=== PATIENT | male | born 1955 | race Caucasian/White ===

== ENCOUNTER 2018-03-29 17:20 | Outpatient (REF) | payer OTHER, SELFPAY ==
[2018-03-29 21:44] LABS: TSH (W/Ref FT4) 2.09 uIU/mL (0.358-3.74)
== END 2018-03-29 17:40 ==
LOC: NCHCN 17:20
PROVIDERS: PCP Nurse Practitioner Family; Visit Provider Nurse Practitioner Family
DX: R19.7 Diarrhea, unspecified (principal); E11.9 Type 2 diabetes mellitus without complications; I25.10 Atherosclerotic heart disease of native coronary artery without angina pectoris; F41.9 Anxiety disorder, unspecified; F32.9 Major depressive disorder, single episode, unspecified; I10 Essential (primary) hypertension; G25.81 Restless legs syndrome; E66.9 Obesity, unspecified
CPT/HCPCS: 84443

== ENCOUNTER 2018-04-07 15:17 | Outpatient (CLI) | payer OTHER, SELFPAY ==
--- NOTE | 2018-04-07 14:15 | DIABASSESS_ITS ---
DESCRIPTION/ASSESSMENT: Raul Trujillo presents for diabetes self management last seen 2016. He maintained his A1c near goal of 7.2 until his recent A1c at 9.1. He states he also gained 10 pounds between provider visits. He medically manages diabetes with Metformin, Lantus 71units daily, bydureon, and now Invokana. Over the past week Raul has cut back on pasta, potato and bread as well as portions and states he has lost 4 pounds. Reviewed his food recall of 4 meals a day of varying carbohydrate portions. Raul has been relatively inactive since his last A1c with leg/foot problems. He state shis body is very tight. He has tried massage. He is working on his wood pile and will begin biking; states he is good for 20 miles. Raul admits to boredom and isolation at times. He does have a small [employer] band of friends. INTERVENTION: DSME is provided in the following AADE 7 areas based on patients interest and assessment of needs: Food - discussed alternatives to pasta/bread and to limit bread to 4 or fewer servings per day. Discussed tracking his food and he is willing to try an Jesus Alberto like [employer]. In addition, he will increase his water intake given his new medication. Physical Activity - has a plan to increase biking and to finish the woodpile. Coping - discussed meditation as a way to calm his mind and discussed resources. Also discussed yoga for his stress and body tightness. ACTION PLAN: Raul will limit bread to 4 slices daily; use an Jesus Alberto to track calories and carbohydrate resume bike riding; consider yoga and meditation. increase water consumption Individual MNT __3__ units billed TIME IN: 0444 OUT: 1510 No DM group education series being offered at this time.
== END 2018-04-07 15:37 ==
PROVIDERS: PCP Nurse Practitioner Family; Visit Provider Dietitian, Registered
DX: E11.9 Type 2 diabetes mellitus without complications (principal); Z79.4 Long term (current) use of insulin; Z71.3 Dietary counseling and surveillance
CPT/HCPCS: 97802

== ENCOUNTER 2018-11-26 11:34 | Outpatient (CLI) | payer OTHER, SELFPAY ==
[2018-11-26 12:20] LABS: PTT Activated 23.1 sec (21.0-31.4)
[2018-11-26 12:47] LABS: Anion Gap 9.3 mmol/L (3-11); BUN 14 mg/dL (7-18); CO2 27.7 mmol/L (21.0-32.0); CREATININE 0.98 mg/dL (0.70-1.30); Calcium 9.1 mg/dL (8.5-10.1); Chloride 100 mmol/L (98-107); Glucose 129 mg/dL (70-100); NT-proBNP 55 pg/mL; Potassium 4.1 mmol/L (3.5-5.1); Sodium 137 mmol/L (136-145)
[2018-11-26 12:50] LABS: Troponin I < 0.02 ng/mL (0.00-0.06)
[2018-11-26 13:02] LABS: Cholesterol 148 mg/dL (50-200); HDL Cholesterol 41 mg/dL (40-60); LDL CHOLESTEROL 77 mg/dL (<100); Triglyceride 273 mg/dL (30-150)
== END 2018-11-26 11:54 ==
PROVIDERS: PCP Nurse Practitioner Family; Visit Provider Nurse Practitioner Family
DX: I25.10 Atherosclerotic heart disease of native coronary artery without angina pectoris (principal); R68.84 Jaw pain; I21.4 Non-ST elevation (NSTEMI) myocardial infarction
CPT/HCPCS: 36415; 80048; 80061; 83721; 83880; 84484; 85610; 85730

== ENCOUNTER 2018-12-01 17:58 | Observation (INO) | payer OTHER, SELFPAY ==
[2018-12-01] VITALS (56 sets, daily range): BP systolic 110–144; BP diastolic 55–90; PULSE 64–90; RESP 12–29; TEMP 37; O2SAT 94–97
--- NOTE | 2018-12-01 18:08 | DI.RAD_ITS ---
SYMPTOM/DIAGNOSIS: CHEST PAIN PA AND LATERAL CHEST: The heart is normal in size. The lungs are clear. The mediastinal structures and pleura appear intact. Probably coronary artery stent identified. CONCLUSION: Normal chest.
[2018-12-01] MEDS: Aspirin 81 MG CHEW 324 MG CH (18:13)
[2018-12-01 18:22] LABS: Abs Immature Grans 0.02 k/cumm (0.0-0.09); Absolute Basophil Count 0.05 k/cumm (0.0-0.2); Absolute Eosinophil Count 0.16 k/cumm (0.0-0.7); Absolute Lymphocyte Count 3.41 k/cumm (1.2-3.4); Absolute Neutrophil Count 5.31 k/cumm (1.2-6.7); Basophils % 0.5; Eosinophils % 1.6; HCT 43.7 % (40.0-50.0); HGB 14.8 g/dL (13.5-17.5); Immature Grans % 0.2; Mean Corp. HGB Concentration 33.9 g/dL (32.0-36.0); Mean Corpuscular Hemoglobin 28.6 pg (27.0-33.0); Mean Corpuscular Volume 84.5 fL (80-95); Mean Platelet Volume 10.2 fL (8.0-11.0); Monocytes % 8.2; Neutrophils % 54.5; Platelet Count 268 x1000/uL (130-400); RBC 5.17 m/cumm (4.50-6.00); White Blood Cell Count 9.75 k/cumm (4.4-10.8)
--- NOTE | 2018-12-01 18:23 | W.ED.GENAD ---
Discharge Plan Disposition Patient Disposition: [facility] Condition: Stable Discharge Details Chief Complaint: Chest Pain Clinical Impression: Unstable angina Primary Care Provider: Denise Hooker ED Provider: Adonay áCrdenas Home Meds and New Rx's Prescriptions: No Action nitroglycerin 0.4 MG tablet, sublingual 0.4 mg Sublingual PRN PRNRF: 0 metoprolol succinate [Toprol XL] 100 MG tablet extended release 24 hr 150 mg PO QAM RF: 0 lisinopril 5 MG tablet 5 mg PO QAM RF: 0 amlodipine 10 MG tablet 10 mg PO QAM RF: 0 rosuvastatin [Crestor] 40 MG tablet 40 mg PO DAILY RF: 0 Lantus U-100 Insulin 100 UNIT/ML solution 35 units SQ DAILY AM RF: 0 cholecalciferol (vitamin D3) [Vitamin D3] 1,000 UNIT capsule 1,000 unit PO DAILY RF: 0 aspirin 325 MG tablet 81 mg PO DAILY RF: 0 naproxen sodium [Aleve] 220 MG capsule 1 tab PO PRN PRNRF: 0 Lantus U-100 Insulin 100 UNITS/ML solution 35 units Sub-Q HS RF: 0 sertraline 50 MG tablet 50 mg PO HS RF: 0 Bydureon 2 MG/0.65 ML pen injector 2 mg SQ .WED HS RF: 0 trazodone 50 mg Tablet 50 mg PO QHS RF: 0 Medical Decision Making <Adonay Cárdenas, SVP RESEARCH AND STRATEGIC ANALYSIS - Last Filed: 12/02/18 00:49> Patient presenting to the emergency department for chief complaint of chest pain. Patient states that he has been having episodes of chest pain with activity over the past 10 days and did follow-up with his primary care provider who did EKG and lab work and was arranging further outpatient testing given that those all came back with no acute findings. Today though while he was at rest he started having substernal chest pain with radiation up into the neck and jaw. He states that this is uncommon and typically his angina occurs primarily with activity. He did take 1 nitro which fully relieved his symptoms but given the episode was concerning and was different than normal he was advised to come to the emergency department by his primary care office. Patient does state some diaphoresis and over the past 10 days dyspnea on exertion otherwise denies fever chills cough. Patient states that he has now asymptomatic and does feel better. Patient states significant cardiac history with hypertension, 9 stents, diabetes, obstructive sleep apnea. physical exam is unremarkable and shows no acute cardiac or respiratory findings. Plan to check labs for concern of ACS versus unstable angina. Orders for chest x-ray and EKG were also placed EKG reviewed with attending physician and shows no STEMI, please see attending physician notation of EKG interpretation. Chest x-ray was reviewed and shows no acute findings which radiology report also agrees. Review of initial labs show no concerning findings on CBC, CMP showing mildly elevated glucose otherwise normal findings, and negative initial troponin. Plan to check second troponin and EKG in 4 hours. Patient was reassessed and states no return of symptoms and continues to be pain-free. Review of second troponin shows negative result and no EKG changes noted. Patient remains asymptomatic and pain-free. Initially called and spoke with our hospitalist Dr. Richter about admission of patient. 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 Spoke with Dr. Mckeon at [facility] whom stated he recommended patient stay at our facility for stress and echo testing and transfer patient for any positive results or any change in condition. Recontacted Dr. cutler who agreed to admit patient for further work-up. Patient was in agreement with this plan of care. <See Calabrese DO - Last Filed: 12/01/18 19:49> EKG 18: 04 Rate 73, intervals normal, sinus rhythm, incomplete right bundle branch block, no significant ST elevations or depressions. Inverted T wave in lead III. HPI <Adonay Cárdenas NP - Last Filed: 12/02/18 00:49> General Mode of arrival: ambulatory. Date/Time Provider Initiated Documentation: 12/01/18 18:06. Limitations to Documentation: no limitations. Information obtained by: patient, RN notes reviewed and old records reviewed. History of Present Illness 63 year old M presents to the emergency department with the chief complaint of chest pain, described as similar to prior episodes, Quality is described as other (denies current pain), and is localized to the chest. Patient started experiencing this day(s) (10) and it has been intermittent. Medication improves symptom(s), (nitro) No exacerbating factors reported . Patient notes no other symptoms.. Patient did receive the following treatments prior to arrival, other (1 nitro) Related Data Home Medications Medication Instructions Recorded Confirmed amlodipine 10 mg PO QAM 07/23/14 12/01/18 lisinopril 5 mg PO QAM 07/23/14 12/01/18 metoprolol succinate [Toprol XL] 150 mg PO QAM 07/23/14 12/01/18 nitroglycerin 0.4 mg SUBLINGUAL PRN PRN 07/23/14 12/01/18 rosuvastatin [Crestor] 40 mg PO DAILY 07/23/14 12/01/18 Lantus U-100 Insulin 35 units SQ DAILY AM 03/20/15 12/01/18 cholecalciferol (vitamin D3) 1,000 unit PO DAILY 03/20/15 12/01/18 [Vitamin D3] aspirin 81 mg PO DAILY 05/04/15 12/01/18 naproxen sodium [Aleve] 1 tab PO PRN PRN 05/04/15 12/01/18 Lantus U-100 Insulin 35 units SUB-Q HS 02/10/16 12/01/18 exenatide microspheres [Bydureon 2 mg SQ .WED HS 09/28/17 12/01/18 Pen] sertraline 50 mg PO HS 09/28/17 12/01/18 trazodone 50 mg PO QHS 12/01/18 12/01/18 Allergies Allergy/AdvReac Type Severity Reaction Status Date / Time isosorbide AdvReac Verified 12/01/18 18:17 General Stated Complaint: Chest Pain ANDREA: 2 Review of Systems <Adonay Cárdenas NP - Last Filed: 12/02/18 00:49> Constitutional Denies chills, Denies fever(s) and Denies malaise Cardiovascular Reports as per HPI, Reports chest pain, Denies chest pain with activity, Reports diaphoresis, Denies syncope, Denies rapid heart rate, Reports pedal edema, Denies irregular heart rhythm, Denies palpitations, Denies dyspnea and Reports dyspnea on exertion Respiratory Denies cough, Denies hemoptysis, Denies dyspnea and Reports dyspnea on exertion Gastrointestinal Denies abdominal pain, Denies nausea and Denies vomiting Neurologic Denies syncope Psychiatric Denies anxiety Endocrine Denies palpitations PFSH <Adonay Cárdenas NP - Last Filed: 12/02/18 00:49> Medical History DM (diabetes mellitus) Diarrhea HTN (hypertension) DEEPALI (obstructive sleep apnea) Surgical History Colonoscopy - MAC (03/27/17) Coronary Stent Excision, Distal Clavicle (05/11/15) Rotator Cuff Repair (05/11/15) Social History Smoking/Tobacco Use Status: Never Alcohol Intake: never Drug use: Never Household members: none Housing: house 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, [employer] What type of physical activity do you participate in: none Do you feel safe at home: Yes Do you feel safe in your relationship?: Yes Exam <Adonay Cárdenas NP - Last Filed: 12/02/18 00:49> Const General: cooperative, healthy appearing, comfortable, no acute distress, not diaphoretic and not ill appearing Nutritional Appearance: average body habitus Orientation: alert, awake and oriented x3 Limitations: mental status not altered Neck Neck: normal visual inspection, full ROM, trachea midline, supple and no anterior neck swelling Thyroid: thyroid normal Carotids: normal carotid upstroke and no bruits Chest Chest: normal inspection of the chest Resp Effort & Inspection: normal respiratory effort and able to speak in complete sentences Auscultation: clear to auscultation bilaterally Cardio Jugular venous pressure: no JVD Palpation: normal PMI Rate: regular rate Rhythm: regular rhythm Heart Sounds: S1 normal, S2 normal, no click, no gallops, no murmurs and no rubs Bruits: no abdominal aortic bruits and no carotid bruits Pulses: radial pulses present bilaterally 2+ and posterior tibial pulses present GI Inspection: normal to inspection Palpation: soft, no aortic enlargement, no pulsatile masses and nontender Auscultation: normal bowel sounds Skin General skin exam: no rashes or lesions noted Neuro General: alert, awake, oriented x3, tone normal and moves all extremities Extrem General: normal capillary refill and no pedal edema Course <Adonay Cárdenas NP - Last Filed: 12/02/18 00:49> Vital Signs Temperature 37.0 C 12/01/18 18:03 Pulse 72 12/01/18 18:03 Respiratory Rate 26 H 12/01/18 18:03 Blood Pressure 144/82 H 12/01/18 18:03 Pulse Oximetry 96 12/01/18 18:03 Temperature 37.0 C 12/01/18 18:03 Temperature Source Temporal Artery Scan 12/01/18 18:03 Pulse 72 12/01/18 18:03 Respiratory Rate 20 12/01/18 18:08 Respiratory Effort Non-Labored 12/01/18 18:08 Respiratory Depth Normal 12/01/18 18:08 Blood Pressure 144/82 H 12/01/18 18:03 Blood Pressure Position Sitting 12/01/18 18:03 Pulse Oximetry 96 12/01/18 18:03 Oxygen Delivery Method Room Air 12/01/18 18:03 Oxygen Flow Rate 0 12/01/18 18:03 Pain Level 4 12/01/18 18:08 Lab/Test Results Lab/Test Results: Laboratory Tests Range/Units 12/01/18 18:08 WBC (4.4-10.8) k/cumm 9.75 RBC (4.50-6.00) m/cumm 5.17 Hgb (13.5-17.5) g/dL 14.8 Hct (40.0-50.0) % 43.7 MCV (80-95) fL 84.5 MCH (27.0-33.0) pg 28.6 MCHC (32.0-36.0) g/dL 33.9 RDW (11.8-14.1) % 14.0 Plt Count (130-400) x1000/uL 268 MPV (8.0-11.0) fL 10.2 Immature Gran % 0.2 Neutrophils % 54.5 Lymphocytes % 35.0 Monocytes % 8.2 Eosinophils % 1.6 Basophils % 0.5 Absolute Neutrophils (1.2-6.7) k/cumm 5.31 Absolute Lymphocytes (1.2-3.4) k/cumm 3.41 H Absolute Monocytes (0.11-0.7) k/cumm 0.80 H Absolute Eosinophils (0.0-0.7) k/cumm 0.16 Absolute Basophils (0.0-0.2) k/cumm 0.05
[2018-12-01 18:38] LABS: ALT 61 U/L (12-78); AST 24 U/L (15-37); Albumin 3.8 g/dL (3.4-5.0); Alkaline Phosphatase 112 U/L (46-116); Anion Gap 9.1 mmol/L (3-11); BUN 16 mg/dL (7-18); Bilirubin, Total 0.4 mg/dL (0.2-1.0); CO2 28.9 mmol/L (21.0-32.0); CREATININE 1.06 mg/dL (0.70-1.30); Calcium 9.3 mg/dL (8.5-10.1); Chloride 99 mmol/L (98-107); Glucose 209 mg/dL (70-100); Magnesium 1.9 mg/dL (1.8-2.4); Sodium 137 mmol/L (136-145)
[2018-12-01 18:39] LABS: Troponin I < 0.02 ng/mL (0.00-0.06)
--- NOTE | 2018-12-01 18:58 | DI.VRAD_ITS ---
EXAM: XR Chest, 2 Views EXAM DATE/TIME: 12/01/2018 6:09 PM CLINICAL HISTORY: 63 years old, male; Signs and symptoms; Other: Chest pain TECHNIQUE: Imaging protocol: XR of the chest, 2 views. COMPARISON: No relevant prior studies available. FINDINGS: Lungs: Unremarkable. No consolidation. Pleural space: Unremarkable. No pleural effusion. No pneumothorax. Heart/Mediastinum: Unremarkable. No cardiomegaly. Bones/joints: No acute skeletal abnormality. IMPRESSION: Negative for acute thoracic pathology. Dictated and Authenticated by: Kris Milligan MD. Ordering:JASWINDER Urias MD
[2018-12-01 22:59] LABS: Troponin I < 0.02 ng/mL (0.00-0.06)
[2018-12-02] VITALS (32 sets, daily range): BP systolic 111–135; BP diastolic 58–79; PULSE 62–81; RESP 13–31; TEMP 37–37.3; O2SAT 93–98
--- NOTE | 2018-12-02 01:16 | W.PM.HP.N ---
Date of service: 12/02/18 Time of Service: : Assessment and Plan (1) Unstable angina: Current visit: No Status: Acute continue aspirin, statins, BB; transfer to [facility] in the morning when bed becomes available for cardiology consultation and stress MPI vs cardiac cath (I favor the latter as his stress test will likely be grossly positive but even if it negative or inconclusive he should still get cardiac cath). If he has a return of his symptoms then I will recheck his EKG and repeat his troponins and start heparin drip and NTG drip and re-contact [facility] for transfer tonight. (2) Diabetes mellitus type 2 in obese: Current visit: No Status: Chronic continue current insulin and Bydureon. Will hold metformin as he will likely need cardiac cath. I will monitor glucose AC/HS and cover w/ sliding scale insulin Novolog. Check A1c in the a.m. (3) Long-term insulin use in type 2 diabetes: Current visit: No Status: Chronic as above (4) Essential hypertension: Current visit: No Status: Chronic continue home meds amlodipine and Toprol XL. If he gets more angina and goes on Ntg drip then I would withold his amlodipine. History of Present Illness Chief Complaint: angina; neck & jaw pain Narrative: 63-year-old male with a history of type 2 diabetes mellitus requiring insulin, hypertension, coronary artery disease, 9 previous coronary stents now presents to the emergency department with progressive anginal symptoms. Over the winter the patient had been doing well with no exertional chest discomfort or dyspnea. He been able to shovel snow without any difficulty. However this spring he decided to start riding his bicycle approximately 2 weeks ago and rode for about 11 miles when he developed angina equivalent in which he had right-sided neck and jaw pain that got worse with activity and improved when he stopped riding his bicycle. He tried riding his bicycle again going about 8 miles last when he developed similar symptoms of right anterior neck and jaw pain associated with dyspnea so he stopped riding and took a nitroglycerin and his pain quickly went away. Patient's had known coronary artery disease dating back to 1992 when he had his heart attack in April 1983. He had similar presentation of exertional dyspnea and jaw and neck pain with his prior CO. He subsequently had coronary angioplasty with that myocardial infarction and since that time he has had 9 stents overall. Since the return of his angina in the past 2 weeks he has followed up with his PCP who performed and EKG and labs and was trying to arrange an outpatient stress test. The patient usually follows up at the [facility] with Dr. Broderick Galloway, his assistant banquet manager. [facility] the patient had angina at rest which was relieved by single nitroglycerin. He has noted some of these episode have been associated w/ diaphoresis and dyspnea. 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 He also has HTN, DEEPALI, HLD, and CAD. He is a former smoker of 2 ppd x 20 yr but quit in 1992 after his first CO. He has FH of CO, and HTN and DM. Workup in the ER included labs, EKG, CXR. Labs included CBC, CMP and troponin. His troponin levels were normal at < 0.02 x 2 sets. CMP was only remarkable for glucose of 209 (he admits that his last A1C was high at 8.2%), rest of CMP was normal and his CBC was normal. CXR was negative for acute thoracic pathology. EKG x 3 readings was negative for ischemia (all were NSR w/ incomplete RBBB). Adonay Cárdenas CNP called [facility] and spoke w/ a Dr. Mckeon from cardiology and he felt that the patient did not need acute transfer to [facility] but recommended that the patient be admitted to [facility] for stress MPI and echocardiogram in the a.m. I attempted to reach out to [facility] and speak w/ Dr. Mckeon to explain that we do not have cardiology coverage tomorrow and no stress tests will be done until Thursday. Given that the patient had now been having rest pain, this constitutes unstable angina and I feel that the patient ought to have a cardiac cath rather than a stress test (patient has multivessel disease and warrants a cath regardless of what his stress test shows). We are unable to provide either a stress test in a timely fashion nor a cardiac cath nor a timely cardiology consult. I was unable to speak w/ Dr. Mckeon but the transfer center relayed my concerns to him and they indicated they will place the patient on a waiting list for a bed in the morning but unless he worsens overnight they are unable to accept him tonight. 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, [employer] What type of physical activity do you participate in: none Do you feel safe at home: Yes Do you feel safe in your relationship?: Yes Meds Home Medications Medication Instructions Recorded Confirmed Type amlodipine 10 mg PO QAM 07/23/14 12/01/18 History lisinopril 5 mg PO QAM 07/23/14 12/01/18 History metoprolol succinate [Toprol XL] 150 mg PO QAM 07/23/14 12/01/18 History nitroglycerin 0.4 mg SUBLINGUAL PRN PRN 07/23/14 12/01/18 History rosuvastatin [Crestor] 40 mg PO DAILY 07/23/14 12/01/18 History Lantus U-100 Insulin 35 units SQ DAILY AM 03/20/15 12/01/18 History cholecalciferol (vitamin D3) 1,000 unit PO DAILY 03/20/15 12/01/18 History [Vitamin D3] aspirin 81 mg PO DAILY 05/04/15 12/01/18 History naproxen sodium [Aleve] 1 tab PO PRN PRN 05/04/15 12/01/18 History Lantus U-100 Insulin 35 units SUB-Q HS 02/10/16 12/01/18 History exenatide microspheres [Bydureon 2 mg SQ .WED HS 09/28/17 12/01/18 History Pen] sertraline 50 mg PO HS 09/28/17 12/01/18 History trazodone 50 mg PO QHS 12/01/18 12/01/18 History Allergies Allergy/AdvReac Type Severity Reaction Status Date / Time isosorbide AdvReac Verified 12/01/18 18:17 Exam Const General: cooperative, no acute distress and well groomed Nutritional Appearance: average body habitus and well nourished Orientation: alert, awake and oriented x3 [facility] Head: normal to inspection, no palpable skull fracture, normocephalic and atraumatic Ears: external ears normal and TM's normal bilaterally General nose exam: external nose normal, nares normal and no nasal discharge Face and sinus: normal facial exam, sinuses nontender and face symmetric Mouth: oral mucosae normal, lip normal, tongue normal, oropharynx normal and moist mucous membranes Teeth and gingiva: dentition normal and gingiva normal Throat: posterior oropharynx normal and uvula midline Eyes General: appearance normal, both eyes and all related structures Visual Cook: normal visual cook by confrontation Alignment and Position: alignment normal Periorbital: periorbital findings normal Eyelids: eyelids normal Conjunctivae: conjunctivae normal Sclera: sclerae normal Cornea: corneas normal Pupils: PERRL, normal by confrontation and accommodation normal EOM: EOM intact bilaterally Neck Neck: normal visual inspection, full ROM, no lymphadenopathy, trachea midline and supple Thyroid: thyroid normal Carotids: normal carotid upstroke Lymphatic: no lymphadenopathy noted Chest Chest: normal inspection of the chest and normal palpation of entire chest wall Resp Effort & Inspection: normal respiratory effort and able to speak in complete sentences Auscultation: clear to auscultation bilaterally Percussion: percussion normal Cardio Jugular venous pressure: no JVD Palpation: normal PMI Rate: regular rate Rhythm: regular rhythm Heart Sounds: S1 normal, S2 normal and normal, physiologic split S2 Pulses: normal peripheral pulses GI Inspection: normal to inspection Palpation: soft, no hepatosplenomegaly and nontender Percussion: normal to percussion Auscultation: normal bowel sounds Skin General skin exam: no rashes or lesions noted, elasticity normal and turgor normal Lesions: no lesions Rashes: no rashes Trauma: no lacerations or abrasions Hair: normal Nails: normal Neuro General: alert, awake, oriented x3, moves all extremities and no focal motor deficits Cognition: normal cognition Speech: speech normal Gait: normal gait Motor: muscle tone normal throughout, strength 5/5 throughout, no pronator drift, no movement abnormalities noted and no fasciculations Sensory Exam: no sensory deficits noted Extrem General: normal to inspection, full ROM, normal capillary refill, no joint enlargement, no clubbing, cyanosis or edema and no calf tenderness bilaterally Psych Appearance: grossly normal Mental Status: mental status grossly normal Speech and Movement: speech and movement normal Mood: congruent mood Affect: normal affect Attitude: cooperative Thought Process: normal Thought Content: normal Insight: insight good Judgment: judgment good Results Imaging Chest x-ray: report reviewed EKG: image reviewed Labs : 12/01/18 18:08 12/01/18 18:08 Laboratory Results - last 24 hr 12/01/18 12/01/18 12/01/18 18:08 18:08 22:15 WBC 9.75 RBC 5.17 Hgb 14.8 Hct 43.7 MCV 84.5 MCH 28.6 MCHC 33.9 RDW 14.0 Plt Count 268 MPV 10.2 Immature Gran % 0.2 Neutrophils % 54.5 Lymphocytes % 35.0 Monocytes % 8.2 Eosinophils % 1.6 Basophils % 0.5 Absolute Neutrophils 5.31 Absolute Lymphocytes 3.41 H Absolute Monocytes 0.80 H Absolute Eosinophils 0.16 Absolute Basophils 0.05 Sodium 137 Potassium 4.0 Chloride 99 Carbon Dioxide 28.9 Anion Gap 9.1 BUN 16 Creatinine 1.06 Estimated GFR/1.73 m2 >= 60.00 Glucose 209 H Calcium 9.3 Magnesium 1.9 Total Bilirubin 0.4 AST 24 ALT 61 Alkaline Phosphatase 112 Troponin I < 0.02 < 0.02 Total Protein 8.0 Albumin 3.8 Last Vital Signs Temp 37.0 C 12/01/18 18:03 Pulse 66 12/02/18 00:15 Resp 21 12/02/18 00:15 BP 115/58 L 12/02/18 00:15 Pulse Ox 96 12/02/18 00:15
[2018-12-02] MEDS: Sertraline 50 MG TAB PO (02:38)
[2018-12-02 03:05] LABS: Troponin I < 0.02 ng/mL (0.00-0.06)
[2018-12-02] MEDS: Enoxaparin 40 MG/0.4 ML SYR SC (06:07)
[2018-12-02] MEDS: Insulin Glargine 300 UNITS/3 ML PEN 35 UNITS SC (06:46)
--- NOTE | 2018-12-02 07:25 | PDOC.CMIN ---
- If Service Date Differs Date of service: 12/02/18 Time of Service: 07:25 Care Management Initial Assess REASON FOR HOSPITALIZATION:: Unstable Angina PAST MEDICAL HISTORY/PAST SURGICAL HISTORY:: DM (diabetes mellitus). Diarrhea. HTN (hypertension). DEEPALI (obstructive sleep apnea). Colonoscopy - MAC (03/27/17). Coronary Stent. Excision, Distal Clavicle (05/11/15). Rotator Cuff Repair (05/11/15) PREVIOUS FUNCTIONAL STATUS/SOCIAL/FAMILY SUPPORTS:: Raul resides in alone in [place]. He reports that he works at [employer] in [facility] and has for 11 years. Raul is independent at baseline, and discusses his recent trip to [place]. Raul drives and manages ADL's. CURRENT FUNCTIONAL STATUS:: Currently Raul ADVANCE DIRECTIVES:: None on file - reports that he has a completed document at home, and that he will bring it into the hospital Has patient been provided with information about the portal?: Yes Did the patient sign up for the portal?: No CODE STATUS:: Full Code INSURANCE COVERAGE / FINANCIAL ISSUES:: CBA CURRENT HOME/COMMUNITY SERVICES/EQUIPMENT:: Currently Raul has no equipment or services in the community. PRIMARY CARE PHYSICIAN:: Denise Hooker POTENTIAL DISCHARGE NEEDS:: F/U appointment with PCP PATIENT/FAMILY EDUCATION NEEDS:: Review DC instructions, any limitations, and ongoing DC planning discussion. Discuss 'Ask Me Three' ANTICIPATED BARRIERS TO DISCHARGE:: None identified at this time TRANSPORTATION:: ? Via EMS if transferred to a tertiary center PLAN:: Per morning meeting Raul to transfer to [facility] once a bed becomes available, he will transport via EMS.
--- NOTE | 2018-12-02 07:30 | INITIAL_ITS ---
- If Service Date Differs Date of service: 12/02/18 Time of Service: 07:25 Care Management Initial Assess REASON FOR HOSPITALIZATION:: Unstable Angina PAST MEDICAL HISTORY/PAST SURGICAL HISTORY:: DM (diabetes mellitus). Diarrhea. HTN (hypertension). DEEPALI (obstructive sleep apnea). Colonoscopy - MAC (03/27/17). Coronary Stent. Excision, Distal Clavicle (05/11/15). Rotator Cuff Repair (05/11/15) PREVIOUS FUNCTIONAL STATUS/SOCIAL/FAMILY SUPPORTS:: Raul resides in alone in [place]. He reports that he works at [employer] in [facility] and has for 11 years. Raul is independent at baseline, and discusses his recent trip to [place]. Raul drives and manages ADL's. CURRENT FUNCTIONAL STATUS:: Currently Raul ADVANCE DIRECTIVES:: None on file - reports that he has a completed document at home, and that he will bring it into the hospital Has patient been provided with information about the portal?: Yes Did the patient sign up for the portal?: No CODE STATUS:: Full Code INSURANCE COVERAGE / FINANCIAL ISSUES:: CBA CURRENT HOME/COMMUNITY SERVICES/EQUIPMENT:: Currently Raul has no equipment or services in the community. PRIMARY CARE PHYSICIAN:: Denise Hooker POTENTIAL DISCHARGE NEEDS:: F/U appointment with PCP PATIENT/FAMILY EDUCATION NEEDS:: Review DC instructions, any limitations, and ongoing DC planning discussion. Discuss 'Ask Me Three' ANTICIPATED BARRIERS TO DISCHARGE:: None identified at this time TRANSPORTATION:: ? Via EMS if transferred to a tertiary center PLAN:: Per morning meeting Raul to transfer to [facility] once a bed becomes available, he will transport via EMS.
[2018-12-02] MEDS: Normal Saline Flush 10 ML SYR IVP (08:54)
[2018-12-02] MEDS: Lisinopril 5 MG TAB PO (08:55)
[2018-12-02] MEDS: amLODIPine 10 MG TAB PO (08:55)
[2018-12-02] MEDS: Cholecalciferol (Vitamin D3) 1,000 UNIT TAB 1000 UNITS PO (08:55)
[2018-12-02] MEDS: Aspirin 81 MG CHEW PO (08:55)
[2018-12-02] MEDS: Metoprolol CR 100 MG TABCR 150 MG PO (08:55)
--- NOTE | 2018-12-02 14:55 | DSE_ITS ---
Date of service: 12/02/18 Time of Service: 14:51 DS: Diagnosis Discharge Diagnosis (1) Unstable angina: Status: Acute (2) Diabetes mellitus type 2 in obese: Status: Chronic (3) Long-term insulin use in type 2 diabetes: Status: Chronic (4) Essential hypertension: Status: Chronic Discharge Plan Disposition Patient Disposition: [facility] ([facility]) Condition: Stable Discharge Details Reason For Visit: UNSTABLE ANGINA Admit Date/Time: 12/02/18 00:33 Admit Provider: Case Boudreaux Attending Provider: Case Boudreaux Primary Care Provider: Denise Hooker [facility] Course Hospital Course: CC: CP HPI: Please see History & Physical by Dr. Case Boudreaux performed earlier this morning. Patient was accepted in transfer at [facility], for further evaluation / potential LHC for diagnosis of Unstable Angina. Please note that Mr. Trujillo's serial cardiac biomarkers with Troponin I have remained negative, and he is currently asymptomatic. He is not being transported on anticoagulation or with a Nitro drip. Home Meds and New Rx's Prescriptions: Continued nitroglycerin 0.4 MG tablet, sublingual 0.4 mg Sublingual PRN PRNRF: 0 metoprolol succinate [Toprol XL] 100 MG tablet extended release 24 hr 150 mg PO QAM RF: 0 lisinopril 5 MG tablet 5 mg PO QAM RF: 0 amlodipine 10 MG tablet 10 mg PO QAM RF: 0 rosuvastatin [Crestor] 40 MG tablet 40 mg PO DAILY RF: 0 Lantus U-100 Insulin 100 UNIT/ML solution 35 units SQ DAILY AM RF: 0 cholecalciferol (vitamin D3) [Vitamin D3] 1,000 UNIT capsule 1,000 unit PO DAILY RF: 0 aspirin 325 MG tablet 81 mg PO DAILY RF: 0 naproxen sodium [Aleve] 220 MG capsule 1 tab PO PRN PRNRF: 0 Lantus U-100 Insulin 100 UNITS/ML solution 35 units Sub-Q HS RF: 0 sertraline 50 MG tablet 50 mg PO HS RF: 0 Bydureon 2 MG/0.65 ML pen injector 2 mg SQ .WED HS RF: 0 trazodone 50 mg Tablet 50 mg PO QHS RF: 0 Discharge Instructions Activity:: OOB to Chair Equipment/Supplies:: No Equipment Needed Diet:: Carb Counting Discharge Orders Discharge Orders: Discharge Order (Routine); Ordered 12/02/18 Ordered By: Miguel Flores DS: Data Vitals/I&O Vitals and I&O: Vital Signs Temperature 37.3 C 12/02/18 08:10 Temperature Source Temporal Artery Scan 12/02/18 08:10 Pulse 65 12/02/18 10:01 Pulse Rhythm Regular 12/02/18 08:10 Pulse 69 12/02/18 10:01 Respiratory Rate 13 12/02/18 10:01 Respiratory Effort 12/02/18 08:10 Respiratory Depth Normal 12/02/18 08:10 Respiratory Pattern Normal 12/02/18 08:10 Blood Pressure 123/66 12/02/18 10:01 Blood Pressure Mean 78 12/02/18 10:01 Blood Pressure Position Supine 12/02/18 01:53 Pulse Oximetry 97 12/02/18 10:01 Oxygen Delivery Method Room Air 12/02/18 01:53 Oxygen Flow Rate 0 12/02/18 01:53 Pain Level 0 12/02/18 01:53 Intake & Output 12/01/18 12/02/18 12/02/18 23:59 11:59 23:59 Intake Total 1220 / 1220 Output Total 800 / 800 1550 / 1550 Balance -800 / -800 -330 / -330 Weight 106.594 kg 103.6 kg Intake: IV 10 Oral 1210 / 1210 Output: Urine 800 / 800 1550 / 1550 Other: Urine Color Yellow Urine Appearance Clear Urine Odor None Comment URINAL EMPTIED. Voiding Methods Urinal Completed studies during hospitalization [Text1]: Exam(s) a RAD:XR chest 2V PA & lateral SYMPTOM/DIAGNOSIS: CHEST PAIN PA AND LATERAL CHEST: The heart is normal in size. The lungs are clear. The mediastinal structures and pleura appear intact. Probably coronary artery stent identified. CONCLUSION: Normal chest. Labs on day of discharge: Labs from last 24 hours 12/02/18 12/01/18 12/01/18 02:40 22:15 18:08 WBC 9.75 RBC 5.17 Hgb 14.8 Hct 43.7 MCV 84.5 MCH 28.6 MCHC 33.9 RDW 14.0 Plt Count 268 MPV 10.2 Immature Gran % 0.2 Neutrophils % 54.5 Lymphocytes % 35.0 Monocytes % 8.2 Eosinophils % 1.6 Basophils % 0.5 Absolute Neutrophils 5.31 Absolute Lymphocytes 3.41 H Absolute Monocytes 0.80 H Absolute Eosinophils 0.16 Absolute Basophils 0.05 Sodium Potassium Chloride Carbon Dioxide Anion Gap BUN Creatinine Estimated GFR/1.73 m2 Glucose Calcium Magnesium Total Bilirubin AST ALT Alkaline Phosphatase Troponin I < 0.02 < 0.02 Total Protein Albumin 12/01/18 18:08 WBC RBC Hgb Hct MCV MCH MCHC RDW Plt Count MPV Immature Gran % Neutrophils % Lymphocytes % Monocytes % Eosinophils % Basophils % Absolute Neutrophils Absolute Lymphocytes Absolute Monocytes Absolute Eosinophils Absolute Basophils Sodium 137 Potassium 4.0 Chloride 99 Carbon Dioxide 28.9 Anion Gap 9.1 BUN 16 Creatinine 1.06 Estimated GFR/1.73 m2 >= 60.00 Glucose 209 H Calcium 9.3 Magnesium 1.9 Total Bilirubin 0.4 AST 24 ALT 61 Alkaline Phosphatase 112 Troponin I < 0.02 Total Protein 8.0 Albumin 3.8 PFSH Medical History DM (diabetes mellitus) Diarrhea HTN (hypertension) DEEPALI (obstructive sleep apnea) Surgical History Colonoscopy - MAC (03/27/17) Coronary Stent Excision, Distal Clavicle (05/11/15) Rotator Cuff Repair (05/11/15) Social History Smoking/Tobacco Use Status: Former Tobacco Use Pack-years: 40 Tobacco: How many years used: 20 Alcohol Intake: never Drug use: Never Household members: none Housing: house 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
== END 2018-12-02 15:45 | disposition short-term general hospital (02) ==
LOC: ER 12-02 00:43 → ICU 12-02 01:50
PROVIDERS: Admitting Provider Internal Medicine; Emergency Provider Nurse Practitioner Family; PCP Nurse Practitioner Family; Visit Provider Internal Medicine
DX: I20.0 Unstable angina (principal); M54.2 Cervicalgia; R68.84 Jaw pain; E11.9 Type 2 diabetes mellitus without complications; Z79.4 Long term (current) use of insulin; I10 Essential (primary) hypertension; I25.10 Atherosclerotic heart disease of native coronary artery without angina pectoris; Z95.5 Presence of coronary angioplasty implant and graft; G47.33 Obstructive sleep apnea (adult) (pediatric); Z87.891 Personal history of nicotine dependence
CPT/HCPCS: 36415; 80053; 93005; 99220; 99285; J1650; NC; 71046; 83735; 84484; 85025; 93010; G0378; J1815

== ENCOUNTER 2018-12-27 19:24 | Emergency (ER) | payer OTHER, SELFPAY ==
[2018-12-27 19:30] VITALS: BP 160/66; PULSE 72; RESP 18; TEMP 36.8; O2SAT 96
--- NOTE | 2018-12-27 19:42 | ED.GENADUL_ITS ---
Discharge Plan Disposition Patient Disposition: HOME Condition: Stable Discharge Details Chief Complaint: Vascular Clinical Impression: Strain of right forearm Primary Care Provider: Denise Hooker ED Provider: Ken Rodriguez Home Meds and New Rx's Prescriptions: No Action nitroglycerin 0.4 MG tablet, sublingual 0.4 mg Sublingual PRN PRNRF: 0 metoprolol succinate [Toprol XL] 100 MG tablet extended release 24 hr 150 mg PO QAM RF: 0 lisinopril 5 MG tablet 5 mg PO QAM RF: 0 amlodipine 10 MG tablet 10 mg PO QAM RF: 0 rosuvastatin [Crestor] 40 MG tablet 40 mg PO DAILY RF: 0 Lantus U-100 Insulin 100 UNIT/ML solution 35 units SQ DAILY AM RF: 0 cholecalciferol (vitamin D3) [Vitamin D3] 1,000 UNIT capsule 1,000 unit PO DAILY RF: 0 aspirin 325 MG tablet 81 mg PO DAILY RF: 0 naproxen sodium [Aleve] 220 MG capsule 1 tab PO PRN PRNRF: 0 Lantus U-100 Insulin 100 UNITS/ML solution 35 units Sub-Q HS RF: 0 sertraline 50 MG tablet 50 mg PO HS RF: 0 Bydureon 2 MG/0.65 ML pen injector 2 mg SQ .WED HS RF: 0 trazodone 50 mg Tablet 50 mg PO QHS RF: 0 Discharge Instructions Additional Instructions: take 1000mg tylenol and 600mg ibuprofen every 6 hours for pain as needed you should be contacted with an appointment for an ultrasound if you develop high fevers or rash spreading up the arm return to the emergency department for reevaluation Medical Decision Making 63 yo male with hx of cad who underwent catheterization last night with no acute findings per pt, comes in with right forearm pain since the procedure and they accessed the right radial artery per pt. Denies any recent trauma but does do a lot of repetitive steering and hand motions with his bike. Denies fevers, chills, rashes. He is in no distress on exam, denies chest pain or sob. He has 2+ radial and ulnar pulses with normal annie test so doubt radial occlusion and no swelling or bruit so doubt pseudoaneurysm and less likely since symptoms started immediately after surgery. Has no swelling and soft muscles so doubt compartment syndrome. Full rom of the joints so doubt fx/dislocation and suspect overuse injury but given recent procedure will have pt return for u/s and return precautions given Differential Diagnosis strain, sprain, dvt HPI General Mode of arrival: ambulatory . Date/Time Provider Initiated Documentation: 12/27/18 19:30 . Limitations to Documentation: no limitations . Information obtained by: patient . History of Present Illness 63 year old M presents to the emergency department with the chief complaint of right forearm pain, described as moderate, with intensity rated at 5. Quality is descr ibed as aching, and is localized to the right and upper extremity. Patient reports no radiation. Patient started experiencing this week(s) (3) and it has been constant. No relieving factors improve symptom(s), No exacerbating factors reported . Patient notes no other symptoms.. Patient did receive the following treatments prior to arrival, NSAID Related Data Home Medications Medication Instructions Recorded Confirmed amlodipine 10 mg PO QAM 07/23/14 12/01/18 lisinopril 5 mg PO QAM 07/23/14 12/01/18 metoprolol succinate [Toprol XL] 150 mg PO QAM 07/23/14 12/01/18 nitroglycerin 0.4 mg SUBLINGUAL PRN PRN 07/23/14 12/01/18 rosuvastatin [Crestor] 40 mg PO DAILY 07/23/14 12/01/18 Lantus U-100 Insulin 35 units SQ DAILY AM 03/20/15 12/01/18 cholecalciferol (vitamin D3) 1,000 unit PO DAILY 03/20/15 12/01/18 [Vitamin D3] aspirin 81 mg PO DAILY 05/04/15 12/01/18 naproxen sodium [Aleve] 1 tab PO PRN PRN 05/04/15 12/01/18 Lantus U-100 Insulin 35 units SUB-Q HS 02/10/16 12/01/18 Bydureon 2 mg SQ .WED HS 09/28/17 12/01/18 sertraline 50 mg PO HS 09/28/17 12/01/18 trazodone 50 mg PO QHS 12/01/18 12/01/18 Allergies Allergy/AdvReac Type Severity Reaction Status Date / Time isosorbide AdvReac Verified 12/01/18 18:17 General Stated Complaint: Vascular ANDREA: 4 Review of Systems Review of Systems All systems reviewed & are unremarkable except as noted in HPI and below Constitutional Denies chills, Denies fever(s) and Denies weakness Cardiovascular Denies chest pain and Denies dyspnea Respiratory Denies cough and Denies dyspnea Gastrointestinal Denies abdominal pain, Denies nausea and Denies vomiting Integumentary/Breasts Denies rash Neurologic Denies weakness [facility] Social History Smoking/Tobacco Use Status: Former Tobacco Use Pack-years: 40 Tobacco: How many years used: 20 Alcohol Intake: never Drug use: Never Household members: none Housing: house 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, [employer] What type of physical activity do you participate in: none Do you feel safe at home: Yes Do you feel safe in your relationship?: Yes Exam Const General: no acute distress Orientation: alert HENMT Head: normal to inspection Ears: external ears normal General nose exam: external nose normal Mouth: moist mucous membranes Eyes General: appearance normal, both eyes and all related structures Neck Neck: normal visual inspection Resp Effort & Inspection: normal respiratory effort and able to speak in complete sentences Cardio Rate: regular rate Skin General skin exam: no rashes or lesions noted Neuro General: alert and oriented x3 Extrem General: normal to inspection Psych Mental Status: mental status grossly normal Course Vital Signs Temperature 36.8 C 12/27/18 19:30 Pulse 72 12/27/18 19:30 Respiratory Rate 18 12/27/18 19:30 Blood Pressure 160/66 H 12/27/18 19:30 Pulse Oximetry 96 12/27/18 19:30 Temperature 36.8 C 12/27/18 19:30 Temperature Source Temporal Artery Scan 12/27/18 19:30 Pulse 72 12/27/18 19:30 Respiratory Rate 18 12/27/18 19:30 Respiratory Effort 12/27/18 19:38 Respiratory Depth Normal 12/27/18 19:38 Blood Pressure 160/66 H 12/27/18 19:30 Pulse Oximetry 96 12/27/18 19:30 Oxygen Delivery Method Room Air 12/27/18 19:30 Oxygen Flow Rate 0 12/27/18 19:30 Pain Level 8 12/27/18 19:30
== END 2018-12-27 19:54 | disposition home or self-care (01) ==
LOC: ER 19:51
PROVIDERS: Emergency Provider Emergency Medicine; PCP Nurse Practitioner Family
DX: S56.911A Strain of unspecified muscles, fascia and tendons at forearm level, right arm, initial encounter (principal); X50.3XXA Overexertion from repetitive movements, initial encounter; I25.10 Atherosclerotic heart disease of native coronary artery without angina pectoris
CPT/HCPCS: 99282

== ENCOUNTER 2018-12-28 11:59 | Outpatient (CLI) | payer OTHER, SELFPAY ==
--- NOTE | 2018-12-28 13:38 | DI.US_ITS ---
SYMPTOMS/DIAGNOSIS: RT ARM PAIN, S/P CARDIAC CATH ULTRASOUND EXAMINATION OF THE RIGHT ARM: There is no evidence of DVT. These findings were conveyed to the provider immediately following the examination.
== END 2018-12-28 12:19 ==
PROVIDERS: PCP Nurse Practitioner Family; Visit Provider Emergency Medicine
DX: M79.621 Pain in right upper arm (principal); Z98.890 Other specified postprocedural states
CPT/HCPCS: 93971

== ENCOUNTER 2019-03-31 17:02 | Outpatient (REF) | payer OTHER, SELFPAY ==
[2019-03-31 21:59] LABS: Abs Immature Grans 0.01 k/cumm (0.0-0.09); Absolute Basophil Count 0.04 k/cumm (0.0-0.2); Absolute Eosinophil Count 0.12 k/cumm (0.0-0.7); Absolute Monocyte Count 0.64 k/cumm (0.11-0.7); Basophils % 0.5; Eosinophils % 1.4; HCT 44.4 % (40.0-50.0); HGB 14.5 g/dL (13.5-17.5); Immature Grans % 0.1; Lymphocytes % 37.6; Mean Corp. HGB Concentration 32.7 g/dL (32.0-36.0); Mean Corpuscular Hemoglobin 27.8 pg (27.0-33.0); Mean Corpuscular Volume 85.1 fL (80-95); Mean Platelet Volume 11.2 fL (8.0-11.0); Monocytes % 7.5; Neutrophils % 52.9; Platelet Count 255 x1000/uL (130-400); RBC 5.22 m/cumm (4.50-6.00); RBC Distribution Width 13.7 % (11.8-14.1); White Blood Cell Count 8.51 k/cumm (4.4-10.8)
[2019-03-31 22:46] LABS: ALT 77 U/L (16-63); AST 41 U/L (15-37); Albumin 4.1 g/dL (3.4-5.0); Alkaline Phosphatase 91 U/L (46-116); Anion Gap 10.8 mmol/L (3-11); BUN 16 mg/dL (7-18); Bilirubin, Total 0.5 mg/dL (0.2-1.0); CO2 26.2 mmol/L (21.0-32.0); CREATININE 0.93 mg/dL (0.70-1.30); Calcium 9.3 mg/dL (8.5-10.1); Chloride 101 mmol/L (98-107); Glucose 122 mg/dL (70-100); Potassium 4.2 mmol/L (3.5-5.1); Sodium 138 mmol/L (136-145); Total Protein 7.8 g/dL (6.4-8.2); Vitamin B12 361 pg/mL (193-986)
[2019-03-31 22:49] LABS: ESR 12 mm/hr (1-20)
[2019-03-31 23:01] LABS: Creatine Kinase 276 U/L (39-308)
[2019-04-04 12:14] LABS: Hepatitis A Antibody IgM Negative (NEGAT); Hepatitis B Core Antibody Negative (NEGAT); Hepatitis B surface Ag Negative (NEGAT); Hepatitis C Ab w Rflx HCV PCR Negative (NEGAT)
[2019-04-04 12:32] LABS: Rheumatoid Factor <8 IU/mL (<12.5)
[2019-04-04 13:47] LABS: Albumin 58.9 % (55.8-66.1); Total Protein 7.9 g/dl (6.3-8.2)
[2019-04-04 14:36] LABS: ANA Interpretation Negative (NEGAT)
[2019-04-08 09:14] LABS: IgG Asialo. GM1 Negative (Negative); IgG Disialo. GD1b Negative (Negative); IgG Monos. GM1 Negative (Negative); IgM Asialo. GM1 Negative (Negative); IgM Disialo. GD1b Negative (Negative); IgM Monos. GM1 Negative (Negative)
== END 2019-03-31 17:22 ==
LOC: NCHCN 17:02
PROVIDERS: PCP Nurse Practitioner Family; Visit Provider Nurse Practitioner Family
DX: R79.89 Other specified abnormal findings of blood chemistry (principal); I10 Essential (primary) hypertension; E11.9 Type 2 diabetes mellitus without complications; R25.3 Fasciculation; M54.9 Dorsalgia, unspecified; M54.31 Sciatica, right side; R19.7 Diarrhea, unspecified; I21.4 Non-ST elevation (NSTEMI) myocardial infarction; F32.9 Major depressive disorder, single episode, unspecified
CPT/HCPCS: 80053; 82550; 85652; 86704; 86709; 86803; 87340; 82607; 83520; 84165; 85025; 86038; 86431

== ENCOUNTER 2019-04-07 00:54 | Outpatient (CLI) | payer OTHER, SELFPAY ==
--- NOTE | 2019-04-07 07:40 | DI.US_ITS ---
EXAM: US ABDOMEN CLINICAL HISTORY: ELEVATED LFT'S,R79.89. TECHNIQUE: Ultrasound performed using standard protocol. COMPARISON: US upper extremity venous RT from 12/28/2018 FINDINGS: The aorta and vena cava are intact. An enlarged fatty liver is demonstrated with a maximal length of 18.9 cm. The gallbladder wall is 1.1 mm in thickness. Multiple small gallstones are identified in the gallbladder, the largest of which measures approximately 3 mm. There is no evidence of ductal ob struction. There is a question regarding increased echogenicity in the pancreas. The spleen is intac t, question regarding a small accessory spleen. The left kidney is unremarkable. A complex right re nal cyst measures 2.4 x 2.1 x 2.4 cm. Further evaluation with renal CT is suggested.
== END 2019-04-07 01:14 ==
PROVIDERS: PCP Nurse Practitioner Family; Visit Provider Nurse Practitioner Family
DX: K76.0 Fatty (change of) liver, not elsewhere classified (principal); K80.70 Calculus of gallbladder and bile duct without cholecystitis without obstruction; N28.1 Cyst of kidney, acquired; R79.89 Other specified abnormal findings of blood chemistry
CPT/HCPCS: 76700

== ENCOUNTER 2019-08-23 12:29 | Outpatient (REF) | payer OTHER, SELFPAY ==
[2019-08-23 22:04] LABS: Abs Immature Grans 0.02 k/cumm (0.0-0.09); Absolute Basophil Count 0.02 k/cumm (0.0-0.2); Absolute Eosinophil Count 0.05 k/cumm (0.0-0.7); Absolute Lymphocyte Count 1.29 k/cumm (1.2-3.4); Absolute Monocyte Count 0.81 k/cumm (0.11-0.7); Absolute Neutrophil Count 4.93 k/cumm (1.2-6.7); Basophils % 0.3; Eosinophils % 0.7; HCT 44.9 % (40.0-50.0); Immature Grans % 0.3 %; Lymphocytes % 18.1; Mean Corp. HGB Concentration 33.4 g/dL (32.0-36.0); Mean Corpuscular Volume 83.8 fL (80-95); Monocytes % 11.4; Neutrophils % 69.2; Platelet Count 245 x1000/uL (130-400); RBC 5.36 m/cumm (4.50-6.00); RBC Distribution Width 13.7 % (11.8-14.1); White Blood Cell Count 7.12 k/cumm (4.4-10.8)
[2019-08-23 22:29] LABS: ALT 57 U/L (16-63); AST 41 U/L (15-37); Albumin 3.8 g/dL (3.4-5.0); Alkaline Phosphatase 85 U/L (46-116); Anion Gap 8.7 mmol/L (3-11); BUN 13 mg/dL (7-18); Bilirubin, Total 0.6 mg/dL (0.2-1.0); CO2 28.3 mmol/L (21.0-32.0); CREATININE 0.95 mg/dL (0.70-1.30); Calcium 8.6 mg/dL (8.5-10.1); Chloride 99 mmol/L (98-107); Glucose 136 mg/dL (74-106); Potassium 4.2 mmol/L (3.5-5.1); Sodium 136 mmol/L (136-145); TSH (W/Ref FT4) 1.85 uIU/mL (0.36-3.74); Total Protein 7.2 g/dL (6.4-8.2)
== END 2019-08-23 12:49 ==
LOC: NCHCN 12:29
PROVIDERS: PCP Nurse Practitioner Family; Visit Provider Nurse Practitioner Family
DX: R19.7 Diarrhea, unspecified (principal); R11.0 Nausea
CPT/HCPCS: 80053; 84443; 85025

== ENCOUNTER 2019-08-24 11:58 | Outpatient (REF) | payer OTHER, SELFPAY ==
[2019-08-26 12:33] LABS: Campylobacter PCR Negative (Negative); Salmonella PCR Negative (Negative); Shiga Toxin PCR Negative (Negative); Shigella/Enteroinvasive Ecoli Negative (Negative)
== END 2019-08-24 12:18 ==
LOC: NCHCN 11:58
PROVIDERS: PCP Nurse Practitioner Family; Visit Provider Nurse Practitioner Family
DX: R19.7 Diarrhea, unspecified (principal); R11.0 Nausea
CPT/HCPCS: 87505; 87177

== ENCOUNTER 2020-03-18 15:31 | Emergency (ER) | payer OTHER, SELFPAY ==
[2020-03-18] VITALS (62 sets, daily range): BP systolic 99–154; BP diastolic 47–69; PULSE 70–91; RESP 13–27; TEMP 36.7; O2SAT 93–97
--- NOTE | 2020-03-18 15:30 | RT.EKG_ITS ---
APPROVED REPORT Exam: Resting ECG Patient Location: E HR:69 bpm ECG Measurements Heart Rate 69 AXIS TN 208 P 64 QRSd 113 QRS 93 QT 378 T 24 QTc 404 Conclusion Sinus rhythm...normal P axis, V-rate 60- 99
--- NOTE | 2020-03-18 15:30 | DI.RAD_ITS ---
EXAM: XR PORTABLE CHEST AP CLINICAL HISTORY: chest pain TECHNIQUE: 2D digital imaging was performed. COMPARISON: No exams were available for comparison FINDINGS: MEDIASTINUM: Normal. HEART: Normal. PULMONARY VASCULATURE: Normal. LUNGS: Clear. PLEURAL SPACE: No pleural effusion or pneumothorax. BONE:Within normal limits for the patient's age. OTHER FINDINGS:Normal. IMPRESSION: No acute pulmonary findings. DATA REPOSITORY: RADIATION DOSE DELIVERED:
--- NOTE | 2020-03-18 15:48 | W.ED.GENAD ---
Discharge Plan Disposition Patient Disposition: [facility] Condition: Serious Discharge Details Clinical Impression: Acute non-ST elevation myocardial infarction (NSTEMI) Primary Care Provider: Denise Hooker ED Provider: Ken Rodriguez Home Meds and New Rx's Prescriptions: No Action nitroglycerin 0.4 MG tablet, sublingual 0.4 mg Sublingual PRN PRNRF: 0 metoprolol succinate [Toprol XL] 100 MG tablet extended release 24 hr 150 mg PO QAM RF: 0 lisinopril 5 MG tablet 5 mg PO QAM RF: 0 amlodipine 10 MG tablet 10 mg PO QAM RF: 0 rosuvastatin [Crestor] 40 MG tablet 40 mg PO DAILY RF: 0 cholecalciferol (vitamin D3) [Vitamin D3] 1,000 UNIT capsule 1,000 unit PO DAILY RF: 0 aspirin 325 MG tablet 81 mg PO DAILY RF: 0 naproxen sodium [Aleve] 220 MG capsule 1 tab PO PRN PRNRF: 0 Lantus U-100 Insulin 100 UNITS/ML solution 30 units Sub-Q BID RF: 0 Farxiga 5 mg tablet 5 mg PO DAILY RF: 0 sertraline 50 MG tablet 50 mg PO HS RF: 0 Bydureon 2 MG/0.65 ML pen injector 2 mg SQ DIRECTED RF: 0 trazodone 50 mg Tablet 50 mg PO QHS RF: 0 Discharge Data Discharge Date/Time-TO BE ENTERED AT DEPARTURE: 03/18/20 21:30 Medical Decision Making <Sebastian Guerra MD - Last Filed: 04/14/20 13:28> 1551??64-year-old male with history of coronary artery disease status post 9 stents in the past, diabetes, hypertension, angina, here with neck discomfort which he notes is similar to prior anginal episodes. Pain now improved after nitroglycerin sublingual x2 prehospital. Patient is hemodynamically stable. Pain ECG was reviewed and interpreted by me: Please see report. No STEMI. Concern for ACS. I will check troponin. 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 Patient did take his daily aspirin today. --This x-ray was reviewed and interpreted by radiology: No acute finding. --Initial troponin negative. Patient reassessed and was made pain-free. --Troponin elevated at 0.15. Patient reassessed and remained pain-free. Repeat ECG nondiagnostic with no significant changes. Plan to start heparin bolus and infusion for end STEMI. I called and spoke with on-call machined parts quality inspector, Dr. Cruz at [facility] and discussed ED presentation and course. He recommends ticagrelor 180mg and will accept patient in transfer. Awaiting bed availability. <Ken Rodriguez MD - Last Filed: 03/18/20 21:23> pt remains hd stable during my time and pain free at this time, bed now available at [facility] and will go by [facility] HPI <Sebastian Guerra MD - Last Filed: 04/14/20 13:28> General Mode of arrival: ambulatory. Date/Time Provider Initiated Documentation: 03/18/20 15:39. Limitations to Documentation: no limitations. Information obtained by: patient. HPI Narrative: 64-year-old male with history of coronary artery disease status post 9 stents, diabetes, hypertension, here with chief complaint of chest pain. Patient notes chest pain started around 1400 after he was chopping wood. Pain described as a sharp pain in his neck. Pain was moderate to severe. Pain similar to prior anginal episodes. He took a nitroglycerin sublingual which did help his pain and then it returned. He took a second sublingual nitro which again helped his pain. He notes after about 20 minutes he started to have some return of discomfort and decided to seek further care. He now notes he has no pain. He has no shortness of breath. No leg swelling or calf pain. Related Data Home Medications Medication Instructions Recorded Confirmed amlodipine 10 mg PO QAM 07/23/14 03/18/20 lisinopril 5 mg PO QAM 07/23/14 03/18/20 metoprolol succinate [Toprol XL] 150 mg PO QAM 07/23/14 03/18/20 nitroglycerin 0.4 mg SUBLINGUAL PRN PRN 07/23/14 03/18/20 rosuvastatin [Crestor] 40 mg PO DAILY 07/23/14 03/18/20 cholecalciferol (vitamin D3) 1,000 unit PO DAILY 03/20/15 03/18/20 [Vitamin D3] aspirin 81 mg PO DAILY 05/04/15 03/18/20 naproxen sodium [Aleve] 1 tab PO PRN PRN 05/04/15 03/18/20 Lantus U-100 Insulin 30 units SUB-Q BID 02/10/16 03/18/20 Bydureon 2 mg SQ DIRECTED 09/28/17 03/18/20 sertraline 50 mg PO HS 09/28/17 03/18/20 trazodone 50 mg PO QHS 12/01/18 03/18/20 dapagliflozin [Farxiga] 5 mg PO DAILY 03/18/20 03/18/20 Allergies Allergy/AdvReac Type Severity Reaction Status Date / Time isosorbide AdvReac Verified 03/18/20 15:42 General Stated Complaint: Chest Pain ANDREA: 2 Review of Systems <Sebastian Guerra MD - Last Filed: 04/14/20 13:28> All systems reviewed & are unremarkable except as noted in HPI and below Constitutional Constitutional: Denies fever(s) Cardiovascular Cardiovascular: Reports chest pain and Denies dyspnea Respiratory Respiratory: Denies dyspnea PFSH <Sebastian Guerra MD - Last Filed: 04/14/20 13:28> Medical History (Updated 03/18/20 @ 20:08 by Sebastian Guerra MD) Coronary artery disease Diarrhea DM (diabetes mellitus) HTN (hypertension) DEEPALI (obstructive sleep apnea) Surgical History Colonoscopy - MAC (03/27/17) Coronary Stent 9 stents. 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, [employer] What type of physical activity do you participate in: none Do you feel safe at home: Yes Do you feel safe in your relationship?: Yes Exam <Sebastian Guerra MD - Last Filed: 04/14/20 13:28> Const General: cooperative and no acute distress HENMT Mouth: moist mucous membranes Eyes Conjunctivae: normal conjunctivae Sclera: normal sclerae Neck Neck: trachea midline and supple Resp Auscultation: clear to auscultation bilaterally, no rales, no rhonchi and no wheezes Cardio Jugular venous pressure: no JVD Rate: regular rate and not tachycardic Rhythm: regular rhythm GI Palpation: soft, not firm, no guarding, no masses, not rigid and nontender Skin General skin exam: no rashes or lesions noted Neuro General: patient alert, patient awake, patient oriented x3 and tone normal Extrem General: no calf tenderness and no edema Psych Appearance: grossly normal Mental Status: mental status grossly normal Speech and Movement: speech and movement normal Course <Sebastian Guerra MD - Last Filed: 04/14/20 13:28> Vital Signs Vital signs: Vital Signs Temperature 36.7 C 03/18/20 15:36 Pulse 71 03/18/20 15:36 Respiratory Rate 21 03/18/20 15:36 Blood Pressure 154/69 H 03/18/20 15:36 Pulse Oximetry 96 03/18/20 15:36 Temperature 36.7 C 03/18/20 15:36 Temperature Source Temporal Artery Scan 03/18/20 15:36 Pulse 70 03/18/20 15:46 Pulse 76 03/18/20 15:46 Respiratory Rate 19 03/18/20 15:46 Respiratory Effort Non-Labored 03/18/20 15:41 Blood Pressure 122/58 L 03/18/20 15:46 Blood Pressure Mean 73 03/18/20 15:46 Blood Pressure Position Sitting 03/18/20 15:36 Pulse Oximetry 97 03/18/20 15:46 Oxygen Delivery Method Room Air 03/18/20 15:36 Oxygen Flow Rate 0 03/18/20 15:36 Pain Level 5 03/18/20 15:36 Critical Care Time <Sebastian Guerra MD - Last Filed: 04/14/20 13:28> Critical Care Time Critical Care Time: Yes Total Critical Care Time: 50 Attestation: I spent greater than 55 minutes addressing this patient's immediate life threats. Please see MDM section of note. This time was spent engaged in work directly related to the patient's care, exclusive of separate procedures, and failure to initiate these interventions would have likely resulted in clinically significant or life threatening deterioration in the patient's condition. Sign Out <Sebastian Guerra MD - Last Filed: 04/14/20 13:28> Sign Out Data: Sign Out Comment: Patient pending transfer to [facility]. Follow-up with [facility] transfer center regarding time for transfer. Last updated by Sebastian Guerra MD at 03/18/20 20:48
[2020-03-18 15:52] LABS: Abs Immature Grans 0.04 10^3/uL (0.0-0.06); Absolute Eosinophil Count 0.13 10^3/uL (0.0-0.7); Absolute Lymphocyte Count 2.61 10^3/uL (1.2-3.4); Absolute Monocyte Count 0.66 10^3/uL (0.1-0.8); Absolute Neutrophil Count 7.47 10^3/uL (1.2-6.7); Basophils % 0.5; Eosinophils % 1.2; HCT 45.7 % (40.0-50.0); Immature Grans % 0.4; Lymphocytes % 23.8; MCH 27.7 pg (27.0-33.0); MCHC 32.8 % (32.0-36.0); MCV 84.3 fL (80-95); MPV 10.1 fL (8.0-11.0); Neutrophils % 68.1; Nucleated RBC 0 %; Platelet Count 276 10^3/uL (130-400); RBC 5.42 10^6/uL (4.36-5.78); RDW 13.5 % (11.8-14.1); RDW-SD 41.3 fL; WBC 10.97 10^3/uL (4.4-10.8)
[2020-03-18 15:53] LABS: Absolute Basophil Count 0.05 10^3/uL (0.0-0.2)
[2020-03-18 16:03] LABS: ALT 78 U/L (16-63); AST 36 U/L (15-37); Alkaline Phosphatase 87 U/L (46-116); Anion Gap 9.6 mmol/L (3-11); BUN 14 mg/dL (7-18); Bilirubin, Total 0.5 mg/dL (0.2-1.0); CO2 29.4 mmol/L (21.0-32.0); CREATININE 1.03 mg/dL (0.70-1.30); Calcium 9.4 mg/dL (8.5-10.1); Chloride 99 mmol/L (98-107); Glucose 147 mg/dL (74-106); Potassium 4.1 mmol/L (3.5-5.1); Sodium 138 mmol/L (136-145)
[2020-03-18 16:14] LABS: Troponin I < 0.05 ng/mL (<0.06)
--- NOTE | 2020-03-18 17:08 | DI.VRAD_ITS ---
PROCEDURE INFORMATION: Exam: XR Chest, 1 View Exam date and time: 03/18/2020 4:47 PM Age: 64 years old Clinical indication: Other: Chest pain TECHNIQUE: Imaging protocol: XR of the chest Views: 1 view. COMPARISON: CR XR CHEST 2V PA LATERAL 12/01/2018 6:36 PM FINDINGS: Lungs: Unremarkable. No consolidation. Pleural space: Unremarkable. No pleural effusion. No pneumothorax. Heart/Mediastinum: Unremarkable. No cardiomegaly. Bones/joints: Degenerative changes in the spine. IMPRESSION: No acute finding. Dictated and Authenticated by: Niecy Rae MD. Ordering:ABIMAEL Cortes MD
[2020-03-18 19:43] LABS: Troponin I 0.15 ng/mL (<0.06)
--- NOTE | 2020-03-18 19:45 | RT.EKG_ITS ---
APPROVED REPORT Exam: Resting ECG Patient Location: E HR:71 bpm ECG Measurements Heart Rate 71 AXIS AL 193 P 59 QRSd 121 QRS 75 QT 377 T 15 QTc 409 Conclusion Sinus rhythm...normal P axis, V-rate 60- 99 IVCD, consider RBBB...QRSd>120mS, terminal axis(90,270)
[2020-03-18] MEDS: Ticagrelor 90 MG TAB 180 MG PO (20:24)
[2020-03-18 21:00] LABS: PTT Activated 89.7 sec (21.0-31.4)
== END 2020-03-18 21:30 ==
PROVIDERS: Student in an Organized Health Care Education/Training Program; Emergency Provider Emergency Medicine; PCP Nurse Practitioner Family
DX: I21.4 Non-ST elevation (NSTEMI) myocardial infarction (principal); R79.1 Abnormal coagulation profile; I25.10 Atherosclerotic heart disease of native coronary artery without angina pectoris; Z95.5 Presence of coronary angioplasty implant and graft; E11.9 Type 2 diabetes mellitus without complications; Z79.4 Long term (current) use of insulin; I10 Essential (primary) hypertension
CPT/HCPCS: 36415; 36416; 80053; 82962; 93005; 96365; 96366; 96376; 99291; 71045; 84484; 85025; 85730; 93010; J3490

== ENCOUNTER 2021-03-18 08:25 | Outpatient (REF) | payer MEDICARE, BC, SELFPAY ==
[2021-03-18 15:44] LABS: Abs Immature Grans 0.03 10^3/uL (0.0-0.06); Absolute Basophil Count 0.06 10^3/uL (0.0-0.2); Absolute Eosinophil Count 0.09 10^3/uL (0.0-0.7); Absolute Lymphocyte Count 2.23 10^3/uL (1.2-3.4); Absolute Monocyte Count 0.49 10^3/uL (0.1-0.8); Absolute Neutrophil Count 5.25 10^3/uL (1.2-6.7); Basophils % 0.7; Eosinophils % 1.1; HCT 45.7 % (40.0-50.0); HGB 14.7 g/dL (13.5-17.5); Immature Grans % 0.4; Lymphocytes % 27.4; MCH 27.9 pg (27.0-33.0); MCHC 32.2 % (32.0-36.0); MCV 86.7 fL (80-95); Neutrophils % 64.4; Nucleated RBC 0 %; Platelet Count 264 10^3/uL (130-400); RBC 5.27 10^6/uL (4.36-5.78); RDW 13.2 % (11.8-14.1); RDW-SD 41.9 fL; WBC 8.15 10^3/uL (4.4-10.8)
[2021-03-18 16:07] LABS: ALT 87 U/L (16-63); AST 36 U/L (15-37); Albumin 3.9 g/dL (3.4-5.0); Alkaline Phosphatase 96 U/L (46-116); BUN 14 mg/dL (7-18); Bilirubin, Total 0.5 mg/dL (0.2-1.0); Calcium 9.1 mg/dL (8.5-10.1); Chloride 101 mmol/L (98-107); Glucose 229 mg/dL (74-106); Potassium 4.3 mmol/L (3.5-5.1); Sodium 140 mmol/L (136-145); Total Protein 7.6 g/dL (6.4-8.2)
[2021-03-18 16:33] LABS: Vitamin D 25 Total 29.3 ng/mL (30-100)
== END 2021-03-18 08:26 | disposition home or self-care (01) ==
LOC: NCHCN 08:25
PROVIDERS: PCP Nurse Practitioner Family; Visit Provider Nurse Practitioner Family
DX: E55.9 Vitamin D deficiency, unspecified (principal); I10 Essential (primary) hypertension; E11.9 Type 2 diabetes mellitus without complications; R19.7 Diarrhea, unspecified; R25.3 Fasciculation; M54.9 Dorsalgia, unspecified; K76.0 Fatty (change of) liver, not elsewhere classified; K80.20 Calculus of gallbladder without cholecystitis without obstruction; L98.9 Disorder of the skin and subcutaneous tissue, unspecified
CPT/HCPCS: 80053; 82306; 85025

== ENCOUNTER 2021-04-04 01:53 | Outpatient (CLI) | payer MEDICARE, BC, SELFPAY ==
--- NOTE | 2021-04-04 | DI.US_ITS ---
Exam(s) US ABDOMEN EXAM: US ABDOMEN CLINICAL HISTORY: FATTY LIVER DISEASE, K76.0, ELEVATED LFTS, R79.89 TECHNIQUE: Ultrasound abdomen performed using standard protocol. COMPARISON: US US ABDOMEN from 04/07/2019 FINDINGS: ABDOMINAL AORTA AND IVC: Visualized portions normal caliber. PANCREAS: Normal where visualized. LIVER: Diffuse increased echogenicity of the liver. Findings are consistent with hepatic steatosis. There is focal fatty sparing adjacent to the gallbladder. The liver measures 20 cm long. Hepatoped al flow in the Portal Vein. GALLBLADDER: There is a 5 mm echogenic immobile focus along the gallbladder wall. This may represent an adherent stone or polyp. No evidence of wall thickening. No pericholecystic fluid identified. BILIARY SYSTEM: Common bile duct measures < 7 mm. No intrahepatic biliary ductal dilation. WOMACK'S SIGN: Negative. KIDNEYS: Kidneys are symmetric in size. No evidence of renal calculi. No evidence of hydronephrosis. No renal mass or cyst identified. SPLEEN: Not enlarged. ASCITES: None seen. IMPRESSION: 1. Hepatomegaly and hepatic steatosis. 2. 5 mm echogenic immobile focus along the gallbladder wall. This may represent an adherent stone or polyp. DATA REPOSITORY:
== END 2021-04-04 02:13 ==
PROVIDERS: PCP Nurse Practitioner Family; Visit Provider Nurse Practitioner Family
DX: K76.0 Fatty (change of) liver, not elsewhere classified (principal); R79.89 Other specified abnormal findings of blood chemistry
CPT/HCPCS: 76700

== ENCOUNTER 2022-01-31 18:08 | Outpatient (REF) | payer MEDICARE, BC, SELFPAY ==
[2022-01-31 19:27] LABS: Abs Immature Grans 0.02 10^3/uL (0.0-0.06); Absolute Basophil Count 0.05 10^3/uL (0.0-0.2); Absolute Eosinophil Count 0.09 10^3/uL (0.0-0.7); Absolute Lymphocyte Count 2.63 10^3/uL (1.2-3.4); Absolute Monocyte Count 0.62 10^3/uL (0.1-0.8); Absolute Neutrophil Count 4.18 10^3/uL (1.2-6.7); Basophils % 0.7; Eosinophils % 1.2; HCT 45.5 % (40.0-50.0); HGB 15.2 g/dL (13.5-17.5); Immature Grans % 0.3; Lymphocytes % 34.7; MCHC 33.4 % (32.0-36.0); MCV 87 fL (80-95); MPV 10.6 fL (8.0-11.0); Monocytes % 8.2; Neutrophils % 54.9; Platelet Count 292 10^3/uL (130-400); RBC 5.24 10^6/uL (4.36-5.78); RDW 13.1 % (11.8-14.1); RDW-SD 41.5 fL; WBC 7.59 10^3/uL (4.4-10.8)
[2022-01-31 20:01] LABS: ALT 76 U/L (16-63); AST 43 U/L (15-37); Albumin 4.2 g/dL (3.4-5.0); Alkaline Phosphatase 78 U/L (46-116); Anion Gap 10.3 mmol/L (3-11); BUN 14 mg/dL (7-18); Bilirubin, Total 0.5 mg/dL (0.2-1.0); CO2 28.7 mmol/L (21.0-32.0); CREATININE 0.8 mg/dL (0.70-1.30); Calcium 9.3 mg/dL (8.5-10.1); Calculated LDL 128 mg/dL (<100); Chloride 103 mmol/L (98-107); Cholesterol 219 mg/dL (<200); Glucose 84 mg/dL (74-106); HDL Cholesterol 55 mg/dL (40-60); Magnesium 2.1 mg/dL (1.8-2.4); Potassium 4.1 mmol/L (3.5-5.1); Sodium 142 mmol/L (136-145); Total Protein 7.8 g/dL (6.4-8.2); Triglyceride 183 mg/dL (<150); Vitamin B12 412 pg/mL (193-986)
== END 2022-01-31 18:09 | disposition home or self-care (01) ==
LOC: NCHCN 18:08
PROVIDERS: PCP Nurse Practitioner Family; Visit Provider Nurse Practitioner Family
DX: I10 Essential (primary) hypertension (principal); R42 Dizziness and giddiness; K76.0 Fatty (change of) liver, not elsewhere classified; R79.89 Other specified abnormal findings of blood chemistry; R25.3 Fasciculation; R19.7 Diarrhea, unspecified; Z86.010 Personal history of colon polyps; E11.9 Type 2 diabetes mellitus without complications
CPT/HCPCS: 80053; 80061; 82607; 83735; 85025

== ENCOUNTER → 2022-02-21 00:42 | Outpatient (CLI) | payer MEDICARE, BC, SELFPAY ==
--- NOTE | 2022-02-21 | DI.US_ITS ---
Exam(s) US ABDOMEN LIMITED EXAM: US ABDOMEN LIMITED CLINICAL HISTORY: FATTY LIVER DISEASE K76.0 ELEVATED LFT R79.89 TECHNIQUE: Ultrasound abdomen performed using standard protocol. COMPARISON: CT ABD PELVIS WITH CONTRAST from 07/22/2016 FINDINGS: PANCREAS: Normal where visualized. LIVER: There is diffuse increased echogenicity of the liver consistent with fatty infiltration. Hepa topedal flow in the Portal Vein. The liver measures in 18.6 cm length. GALLBLADDER: No evidence of cholelithiasis. No evidence of wall thickening. No pericholecystic fluid identified. There is a 0.8 cm immobile echogenic nodule along the wall of the gallbladder likely refl ecting a polyp. BILIARY SYSTEM: Common bile duct measures < 7 mm. No intrahepatic biliary ductal dilation. WOMACK'S SIGN: Negative. RIGHT KIDNEY: Kidney is normal in size. No evidence of renal calculi. No evidence of hydronephrosis. There is a stable 2.9 cm simple cyst in the right kidney. No follow-up is recommended. ASCITES: None seen. IMPRESSION: 1. Hepatomegaly and hepatic steatosis. 2. 0.8 cm gallbladder polyp. DATA REPOSITORY:
--- OUTSIDE RECORDS SUMMARY | 2022-02-21 01:10 | XMS_ITS | Encounter Summary ---
:1955 Author Organization [facility] Address [address] [place] [address] Care Team Providers Name Role Phone Denise Hooker APRN Primary Care Provider [phone] Reason for Visit Reason Onset Date Comments Other 04/19/2020 Encounter Details Date Type Department Care Team Description 04/19/2020 Telephone [facility] Mara Kimbrough RN Other Gastroenterology - Main [address] [place], [place] [id number] [place] [id number] Social History Tobacco Use Types Packs/Day Years Used Date Former Smoker Cigarettes 20 Quit: 05/1994 Smokeless Tobacco: Never Used Alcohol Use Standard Drinks/Week Comments Yes 0 (1 standard drink = 0.6 oz pure alcoho l) rare Alcohol Habits Answer Date Recorded How often do you have a drink containing alcohol? Not asked How many drinks containing alcohol do you have on a typical Not asked day when you are drinking? How often do you have six or more drinks on one occasion? No t asked Comment: rare 09/07/2009 Sex Assigned at Date Recorded Not on file COVID-19 Exposure Response Date Recorded In the last month, have you been in contact with No / Unsure 04/17/2020 13:56 EDT someone who was confirmed or suspected to have Coronavirus / COVID-19? documented as of this encounter Functional Status Functional Status Response Date of Assessment Are you deaf or do you have serious difficulty hearing? No 03/18/2020 Are you blind or do you have serious difficulty seeing, No 03/18/2020 even when wearing glasses? Do you have serious difficulty walking or climbing No 03/18/2020 stairs? (5 years old or older) Do you have difficulty dressing or bathing? (5 years old No 03/18/2020 or older) Because of a physical, mental, or emotional condition, do No 03/18/2020 you have difficulty doing errands alone such as visiting a doctor's office or shopping? (15 years old or older) Cognitive Status Response Date of Assessment Because of a physical, mental, or emotional condition, do No 03/18/2020 you have serious difficulty concentrating, remembering, or making decisions? (5 years old or older) documented as of this encounter Miscellaneous Notes Telephone Encounter - Kaye Kimbrough RN - 04/19/2020 1251 EDT ----- Message from Letty Mackey MD sent at 04/19/2020 12:05 EDT ----- Can you call patient and let him know that labs look good- ALT is mildly elevated (likely due to hisfatty liver), but stable compared with prior tests. Thanks! SR L/M for patient letting him know that labs are stable as per Dr. Mackey's message above. documented in this encounter Plan of Treatment Upcoming Encounters Date Type Specialty Care Team Description 09/29/2022 Office Visit Gastroenterology and Shaq Ph[facility], Hepatology [address] [facility], [address] [place] [address] (Wo rk) documented as of this encounter Visit Diagnoses Not on filedocumented in this encounter Care Teams Sfdc Technical Architect Relationship Specialty Start Date End Date Denise Hooker APRN PCP - General 09/13/18 [address] [place], [place] [id number] documented as of this encounter
--- OUTSIDE RECORDS SUMMARY | 2022-02-21 01:10 | XMS_ITS | Encounter Summary ---
:1955 Author Organization [facility] Address [address] [place] [address] Care Team Providers Name Role Phone Denise Hooker APRN Primary Care Provider [phone] Reason for Referral Cardiology (Routine/Next Available) - Closed Specialty Diagnoses / Procedures Referred By Contact Refer red To Contact Cardiology Diagnoses Ventricular tachycardia (HCC-CMS) ([facility]) Jeison Pickett DO [facility] Procedures CARDIAC EVENT MONITOR [address] [facility] [id number] [place] [id number] Fax: Referral ID Status Reason Start Date Expiration Date Visits Requ ested Visits Authorized [id number] Closed 03/22/2020 1 1 Reason for Visit Cardiology (Routine/Next Available) - Closed Specialty Diagnoses / Procedures Referred By Contact Refer red To Contact Cardiology Diagnoses Ventricular tachycardia (HCC-CMS) ([facility]) Jeison Pickett DO [facility] Procedures CARDIAC EVENT MONITOR [address] [address] [place] [address] [place] [address] Fax: Referral ID Status Reason Start Date Expiration Date Visits Requ ested Visits Authorized [id number] Closed 03/22/2020 1 1 Encounter Details Date Type Department Care Team Description 04/23/2020 Hospital Encounter [facility] tricular tachycardia Non-Invasive ([facility]-CMS) Cardiology - [address] [address] Social History Tobacco Use Types Packs/Day Years [...] or older) documented as of this encounter Medications at Time of Discharge Medication Sig Dispensed Refills Start Date End Date amlodipine (NORVASC) 10 mg Take 1 Tab by mouth 30 Tab 11 09/10/2009 tablet daily. aspirin chewable 81 mg Take 1 Tab by mouth 30 Tab 11 01/18 tablet daily. dapagliflozin (FARXIGA) 5 Take 5 mg by mouth 0 mg tablet daily. ERGOCALCIFEROL, VITAMIN D2, Take by mouth daily 0 (VITAMIN D ORAL) exenatide microspheres Inject 2 mg into the 0 (BYDUREON) 2 mg/0.65 mL pen skin every 7 days. injector insulin glargine (LANTUS) Inject 30 Units into 0 100 unit/mL injection the skin 2 times daily. lisinopril (PRINIVIL, Take 5 mg by mouth 0 ZESTRIL) 5 mg tablet daily. metFORMIN (GLUCOPHAGE) Take 1,000 mg by 0 1,000 mg tablet mouth 2 times daily. METOPROLOL SUCCINATE ORAL Take 150 mg by mouth 0 daily. Takes 3-50 mg. Tablets daily nitroGLYCERIN (NITROSTAT) Place 0.4 mg under 0 0.4 mg SL tablet the tongue as needed for Chest Pain. rosuvastatin (CRESTOR) 40 Take 40 mg by mouth 0 mg tablet daily. sertraline (ZOLOFT) 50 mg Take 50 mg by mouth 0 tablet daily. traZODone (DESYREL) 50 mg Take 50 mg by mouth 0 tablet daily. documented as of this encounter Discharge Disposition Disposition Code Departure Means Destination Home or Self Care documented in this encounter Plan of Treatment Upcoming Encounters Date Type Specialty Care Team Description 09/29/2022 Office Visit Gastroenterology and [facility] Hepatology [address] [facility], [facility] [address] [place] [address] (Wo rk) documented as of this encounter Procedures Procedure Name Priority Date/Time Associated Diagnosis Comme nts CARDIAC EVENT Routine 04/23/2020 8:54 EDT Ventricular Results for this MONITOR tachycardia procedure are i n ([facility]) the results section. documented in this encounter Results CARDIAC EVENT MONITOR (04/23/2020 8:54 EDT) Specimen Narrative DEVICECHECK - 04/23/2020 10:31 EDT Baseline rhythm is sinus No arrhythmias No symptoms reported Performing Organization Address City/State/ZIP Code Phon e Number DEVICECHECK documented in this encounter Visit Diagnoses Diagnosis Ventricular tachycardia ([facility]) (HCC) Paroxysmal ventricular tachycardia documented in this encounter Care Teams Table Cut Off Saw Operator Relationship Specialty Start Date End Date Denise Hooker APRN PCP - General 09/13/18 [address] [place] [address] documented as of this encounter
--- OUTSIDE RECORDS SUMMARY | 2022-02-21 01:10 | XMS_ITS | Encounter Summary ---
:1955 Author Organization [facility] Address [address] [place] [address] Care Team Providers Name Role Phone Denise Hooker APRN Primary Care Provider [phone] Reason for Visit Reason Comments Arrhythmia ventricular tachy Follow-up televideo long Consult (Routine/Next Available) - Order Cancelled Specialty Diagnoses / Procedures Referred By Contact Refer red To Contact Cardiology Diagnoses NSTEMI (non-ST elevated myocardial infarction) ([facility] ([facility]) NSVT (nonsustained ventricular tachycardia) ([facility]) ([facility]) Jeison Pickett DO [facility] [address] [place] [address] [id number] [place] [address] Fax: Referral ID Status Reason Start Expiration Visits Visits Date Date Requested Authorized [id number] Order Specialty 03/22/2020 1 1 Cancelled Services Required Encounter Details Date Type Department Care Team Description 05/04/2020 Telemedicine [facility] Bebo Guzman [place] (ventricular Cardiology - Jenelle Fernández MD tachycardia) [address] Te[address] [place] [address] ([facility]) (Primary So [place], [place] Avenue Dx) [id number] [facility], [facility] [address] [place] [address] (Wo rk) Social History Tobacco Use Types Packs/Day Years [...] / COVID-19? documented as of this encounter Last Filed Vital Signs Vital Sign Reading Time Taken Comments Blood Pressure - - Pulse - - Temperature - - Respiratory Rate - - Oxygen Saturation - - Inhaled Oxygen Concentration - - Weight 103 kg (227 lb) 05/04/2020 0908 EDT Height - - Body Mass Index 33.52 03/19/2020 1359 EDT documented in this encounter Functional Status Functional Status Response [...] or older) documented as of this encounter Progress Notes Bebo Guzman MD - 05/04/2020 1020 EDT Subjective: Patient ID: Raul Trujillo is an 64 y.o. male. Chief Complaint Patient presents with ??? Arrhythmia ventricular tachy ??? Follow-up televideo long HPI I had the pleasure of seeing Mr Trujillo today via Zoom. He has done well since being in the hospital. He has not had any episodes of VT on remote monitor. He had a NSEMI with preserved EF. He is on beta-blockade. Patient Active Problem List Diagnosis ??? Coronary atherosclerosis ??? Hyperlipidemia with target LDL less than 70 ??? Hypertensive disorder ??? Diabetes mellitus ([facility]) ??? Chest pain ??? Depression ??? Type 2 diabetes mellitus with vascular disease ([facility]) ??? NSVT (nonsustained ventricular tachycardia) ([facility]) Past Medical History: Diagnosis Date ??? CAD (coronary artery disease) 09-10-09 PCI LAD prox MARY, LAD mid MARY, LAD distal BMS; 09-07-09 PCI MARY X 3 RCA; 2003 stents X2 ??? Diabetes mellitus ([facility]) oral agents ??? Diverticulitis ??? Hyperlipidemia ??? Hypertension ??? [place] (myocardial infarction) ([facility]) 1992, 2003 ??? Recurrent infections rt foot 5th toe Past Surgical History: Procedure Laterality Date ??? CARPAL TUNNEL RELEASE bilateral ??? ROTATOR CUFF REPAIR right, fall 2015 ??? 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 UMBILICAL HERNIA REPAIR Jun, 2009 Family History Problem Relation Age of Onset ??? Diabetes Brother ??? Heart Disease Brother ??? Heart Disease Father at age 61 Social Social History Tobacco Use ??? Smoking status: Former Smoker Years: 20.00 Types: Cigarettes Quit date: 05/1994 Years since quittin.9 ??? Smokeless tobacco: Never Used Substance Use Topics ??? Alcohol use: Yes Comment: rare ??? Drug use: No Current Outpatient Medications on File Prior to Visit Medication Sig Dispense Refill ??? amlodipine (NORVASC) 10 mg tablet Take 1 Tab by mouth daily. 30 Tab 11 ??? aspirin chewable 81 mg tablet Take 1 Tab by mouth daily. 30 Tab 11 ??? dapagliflozin (FARXIGA) 5 mg tablet Take 5 mg by mouth daily. ??? ERGOCALCIFEROL, VITAMIN D2, (VITAMIN D ORAL) Take by mouth daily ??? exenatide microspheres (BYDUREON) 2 mg/0.65 mL pen injector Inject 2 mg into the skin every 7 days. ??? insulin glargine (LANTUS) 100 unit/mL injection Inject 30 Units into the skin 2 times daily. ??? isosorbide mononitrate (IMDUR) 30 mg CR tablet Take 30 mg by mouth every morning. 15 mg, 1/2 tab ??? lisinopril (PRINIVIL, ZESTRIL) 5 mg tablet Take 5 mg by mouth daily. ??? metFORMIN (GLUCOPHAGE) 1,000 mg tablet Take 1,000 mg by mouth 2 times daily. ??? METOPROLOL SUCCINATE ORAL Take 150 mg by mouth daily. Takes 3-50 mg. Tablets daily ??? nitroGLYCERIN (NITROSTAT) 0.[address] 0.4 mg under the tongue as needed for Chest Pain. ??? rosuvastatin (CRESTOR) 40 mg tablet Take 40 mg by mouth daily. ??? sertraline (ZOLOFT) 50 mg tablet Take 50 mg by mouth daily. ??? traZODone (DESYREL) 50 mg tablet Take 50 mg by mouth daily. No current facility-administered medications on file prior to visit. Allergies Allergen Reactions ??? Imdur [Isosorbide Mononitrate] Severe headache ??? Indoramin Headaches Review of Systems Constitutional: Negative. HENT: Negative. Eyes: Negative. Respiratory: Negative. Cardiovascular: Negative for chest pain and palpitations. Musculoskeletal: Negative. Skin: Negative. Neurological: Negative for loss of consciousness. Endo/Heme/Allergies: Negative. - See HPI Objective: Wt (!) 103 kg (227 lb) BMI 33.52 kg/m?? Physical Exam Constitutional: Appearance: He is well-nourished. HENT: Mouth/Throat: Mouth: Mucous membranes are moist. Eyes: Extraocular Movements: EOM normal. Neck: Musculoskeletal: Normal range of motion. Pulmonary: Effort: Pulmonary effort is normal. Musculoskeletal: Normal range of motion. Skin: General: Skin is dry. Neurological: Mental Status: He is alert. Assessment: 1. NSTEMI 2. [place] prei-infarct 3. Recent normal event monitor on betablocker Discussed with Mr Trujillo and we will not make any changes. He is on good medical therapy. TELEMEDICINE VIDEO VISIT Today's visit was provided through telemedicine video conferencing: The location of the patient : Home The location of the provider: Office The following staff and their role did participate in today's encounter visit: Bebo Guzman MD Plan: (I47.2) [place] (ventricular tachycardia) (HCC-CMS) (primary encounter diagnosis) Bebo Guzman MD Med Orders Placed This Visit and Additions to the Medication List Medications ??? isosorbide mononitrate (IMDUR) 30 mg CR tablet Sig: Take 30 mg by mouth every morning. 15 mg, 1/2 tab documented in this encounter Plan of Treatment Upcoming Encounters Date Type Specialty Care Team Description 09/29/2022 Office Visit Gastroenterology and Shaq Phan Hepatology [address] [facility], [facility] [address] [place] [address] (Wo rk) documented as of this encounter Visit Diagnoses Diagnosis [place] (ventricular tachycardia) (HCC-CMS) ( HCC) - Primary Paroxysmal ventricular tachycardia documented in this encounter Historical Medications This list may reflect changes made after this encounter. Medication Sig Dispensed Refills Start Date End Date isosorbide mononitrate Take 30 mg by mouth 0 (IMDUR) 30 mg CR tablet every morning. 15 mg, 1/2 tab added in this encounter Care Teams Tree Trimmer Relationship Specialty Start Date End Date Denise Hooker APRN PCP - General 09/13/18 [address] [place] [address] documented as of this encounter
--- OUTSIDE RECORDS SUMMARY | 2022-02-21 01:10 | XMS_ITS | Encounter Summary ---
:[address] [facility] Address [address] [place] [address] Care Team Providers Name Role Phone Denise Hooker APRN Primary Care Provider [phone] Reason for Visit Reason Comments Follow-up Encounter Details Date Type Department Care Team Description 04/04/2020 Telemedicine [facility] Kitty Medina hypertension (Primary Dx); Cardiology - Jenelle Payton MD NSVT (nonsustained ventricular tachycard ia) ([facility]); [address] Atherosclerosis of coronary artery witho ut angina pectoris, unspecified vessel or lesion type, unspecified whether [place] or transplanted heart So [place], [place] [id number] [place] [address] [place] [id number] Social History Tobacco Use Types Packs/Day Years [...] been in contact with No / Unsure 03/18/2020 20:23 EDT someone who was confirmed or suspected [...] documented as of this encounter Progress Notes Kitty Medina MD - 04/04/2020 1300 EDT TELEMEDICINE VIDEO VISIT Today's visit was provided through telemedicine video conferencing: The location of the patient : Home The location of the provider: home The following staff and their role did participate in today's encounter visit: Kitty Medina MD The concept of ???Telemedicine?? has been described to the patient.? Patient has been informed of the anticipated benefits and possible risks.? Patient understands the information provided regarding telemedicine, has had the opportunity to ask questions about this information, and all questions have been answered to patient???s satisfaction. Patient consents for the use of telemedicine in his/her medical care and authorizes the transmission of any relevant medical information to providers and theirstaff involved in patient???s medical or mental health care. Subjective: Patient is a 64 y.o. male who presents for follow-up of CAD and recent hospitalization for NSTEMI. At that time patient underwent coronary angiogram and was found to have mild CAD with component of spasm and patent stents. His medical therapy was optimized and he was discharged home. echocardiogram showed preserved EF. He was discharged with 14 day event monitor given VT upon presentation. He is still wearing it. Patient reports no symptoms at present. He denies chest pain on exertion and dyspnea on exertion. Hedescribes his symptoms as improved. He has been compliant with his medications. Medications side effects include none Past Medical History: Diagnosis Date ??? CAD (coronary artery disease) 09-10-09 PCI LAD prox MARY, LAD mid MARY, LAD distal BMS; 09-07-09 PCI MARY X 3 RCA; 2004 stents X2 ??? Diabetes mellitus ([facility]) oral agents ??? Diverticulitis ??? Hyperlipidemia ??? Hypertension ??? [place] (myocardial infarction) ([facility]) 1992, 2003 ??? Recurrent infections rt foot 5th toe Patient Active Problem List Diagnosis Date Noted ??? Type 2 diabetes mellitus with vascular disease ([facility]) 03/19/2020 Priority: Medium ??? NSVT (nonsustained ventricular tachycardia) ([facility]) 03/19/2020 Priority: Medium ??? Chest pain 12/03/2018 Priority: Medium ??? Depression 12/03/2018 Priority: Medium ??? Coronary atherosclerosis 09/07/2009 ??? Hyperlipidemia with target LDL less than 70 09/07/2009 ??? Hypertensive disorder 09/07/2009 ??? Diabetes mellitus ([facility]) 09/07/2009 Family History Problem Relation Age of Onset ??? Diabetes Brother ??? Heart Disease Brother ??? Heart Disease Father at age 61 Current Outpatient Medications Medication Sig Dispense Refill ??? amlodipine (NORVASC) [...] mononitrate (IMDUR) 30 mg CR tablet Take 0.5 Tabs by mouth daily for 30 days. 15 Tab 2 ??? lisinopril (PRINIVIL, ZESTRIL) 5 mg tablet [...] by mouth daily. No current facility-administered medications for this visit. Review of Systems A ten point ROS was performed. Pertinent positives are listed above, all others are negative. Objective: There were no vitals taken for this visit. There is no height or weight on file to calculate BMI. Physical Exam: No exam performed. Plan: CAD: tolerating imdur with some headaches, overall improved. No further angina. Zio patch pending. FU scheduled with Dr. Guzman and Nilesh. I spent a total of 15 minutes with Raul Trujillo today and 15 minutes of that time was spent in counseling and coordination of care as described in the progress note. Sanford Bauer - 04/04/2020 1300 EDT The concept of ???Telemedicine?? has been described to the patient.? Patient has been informed of the anticipated benefits and possible risks.? Patient understands the information provided regarding telemedicine, has had the opportunity to ask questions about this information, and all questions have been answered to patient???s satisfaction. Patient consents for the use of telemedicine in his/her medical care and authorizes the transmission of any relevant medical information to providers and theirstaff involved in patient???s medical or mental health care. documented in this encounter Plan of Treatment Upcoming Encounters Date Type Specialty Care Team Description 09/29/2022 Office Visit Gastroenterology and Shaq Phan, Hepatology [address] [place], [place] [address]on, [address] [place] [phone] (Wo rk) documented as of this encounter Visit Diagnoses Diagnosis Essential hypertension - Primary Unspecified essential hypertension NSVT (nonsustained ventricular tachycard ia) (HCC-CMS) (HCC) Paroxysmal ventricular tachycardia Atherosclerosis of coronary artery witho ut angina pectoris, unspecified vessel or lesion type, unspecified whether [place] or transplanted heart documented in this encounter Care Teams Energy Economist Relationship Specialty Start Date End Date Denise Hooker, FURNACE INSTALLER PCP - General 09/13/18 [address] [place], [place] [id number] documented as of this encounter
--- OUTSIDE RECORDS SUMMARY | 2022-02-21 01:10 | XMS_ITS | Encounter Summary ---
:1955 Author Organization [facility] Address [address] [place] [address] Care Team Providers Name Role Phone Denise Hooker APRN Primary Care Provider [phone] Reason for Visit Reason Onset Date Comments Appointment Related 05/03/2020 Returning Call 05/03/2020 Encounter Details Date Type Department Care Team Description 05/03/2020 Telephone [facility] Bebo Guzman pointment Related; Cardiology - Jenelle Fernández MD Returning Call 62 Jen[address] Teix[address]ira [address] [facility], [address] [place] [address] (Wo rk) Social History Tobacco [...] this encounter Miscellaneous Notes Telephone Encounter - Marsha Hu - 05/03/2020 1614 EDT Patient returning call. Patient OK with zoom, so television writer rescheduled 05/04 to same. Telephone Encounter - Leigh Ann Gonzales - 05/03/2020 1016 EDT Called patient to see if wanted to change appt tomorrow, 04/24, with Dr. Guzman to a [place] appt. If patient states that they would like to keep as an in office appt, that is fine. documented in this encounter Plan of Treatment Upcoming Encounters Date Type Specialty Care Team Description 09/29/2022 Office Visit Gastroenterology and Shaq Phan, Hepatology [address] [facility], [facility], [address] [place] [address] (Wo rk) documented as of this encounter Visit Diagnoses Not on filedocumented in this encounter Care Teams Roll Edge Stitcher Hand Relationship Specialty Start Date End Date Denise Hooker, JENNIFER PCP - General 09/13/18 [address] [place] [address] documented as of this encounter
--- OUTSIDE RECORDS SUMMARY | 2022-02-21 01:10 | XMS_ITS | Clinical Summary ---
:1955 Author Organization [facility] Address [address] [place] [address] Care Team Providers Name Role Phone Denise Hooker APRN Primary Care Provider [phone] Allergies Active Allergy Reactions Severity Noted Date Comments Isosorbide Mononitrate 03/18/2020 Sever e headache Indoramin 05/19/2019 Headaches Medications Medication Sig Dispensed Refills Start Date End Date Status lisinopril (PRINIVIL, Take 5 mg by 0 Active ZESTRIL) 5 mg tablet mouth daily. METOPROLOL SUCCINATE Take 150 mg by 0 Active ORAL mouth daily. Takes 3-50 mg. Tablets daily nitroGLYCERIN Place 0.4 mg 0 Act roosevelt (NITROSTAT) 0.4 mg SL under the tongue tablet as needed for Chest Pain. amlodipine (NORVASC) 10 Take 1 Tab by 30 Tab 11 09/10/2009 Active mg tablet mouth daily. insulin glargine Inject 30 Units 0 Active (LANTUS) 100 unit/mL into the skin 2 injection times daily. rosuvastatin (CRESTOR) Take 40 mg by 0 Active 40 mg tablet mouth daily. ERGOCALCIFEROL, VITAMIN Take by mouth 0 Active D2, (VITAMIN D ORAL) daily aspirin chewable 81 mg Take 1 Tab by 30 Tab 11 02/12/2016 Active tablet mouth daily. sertraline (ZOLOFT) 50 Take 50 mg by 0 Active mg tablet mouth daily. exenatide microspheres Inject 2 mg into 0 Active (BYDUREON) 2 mg/0.65 mL the skin every 7 pen injector days. traZODone (DESYREL) 50 Take 50 mg by 0 Active mg tablet mouth daily. metFORMIN (GLUCOPHAGE) Take 1,000 mg by 0 Active 1,000 mg tablet mouth 2 times daily. dapagliflozin (FARXIGA) Take 5 mg by 0 Active 5 mg tablet mouth daily. isosorbide mononitrate Take 30 mg by 0 Active (IMDUR) 30 mg CR tablet mouth every morning. 15 mg, 1/2 tab Active Problems Problem Noted Date Type 2 diabetes mellitus with vascular disease ([facility]) 03/19/2020 NSVT (nonsustained ventricular tachycardia) ([facility]) 03/19/2020 Chest pain 12/03/2018 Depression 12/03/2018 Coronary atherosclerosis 09/07/2009 Overview: 09-10-09 LHC : FFR of LAD 0.69 ; PCI LAD MARY- prox, LAD MARY-mid, LAD BMS distal 09-07-09 LHC : PCI MARY X 3 RCA 09-07-09 LHC: LM nl; LAD 50% mid 60% dist al; Cx 40% distal; RCA 90% distal 70% mid, EF 60% Hyperlipidemia with target LDL less than 70 09/07/2009 Hypertensive disorder 09/07/2009 Diabetes mellitus 09/07/2009 Overview: Oral agent - metformin Resolved Problems Problem Noted Date Resolved Date NSTEMI (non-ST elevated myocardial infarction) ([facility]) 03/22/2020 Surgical History Surgery Date Site/Laterality Comments UMBILICAL HERNIA REPAIR Jun, 2009 ROTATOR CUFF REPAIR right, fall 2014 CARPAL TUNNEL RELEASE bilateral TOE AMPUTATION right 5th Medical History Medical History Date Comments [place] (myocardial infarction) ([facility]) ([facility]) 1992, 2003 CAD (coronary artery disease) 09-10-09 P CI LAD prox MARY, LAD mid MARY, LAD distal BMS; 09-07-09 PCI MARY X 3 RCA; 2003 stents X2 Hypertension Diabetes mellitus ([facility]) oral agents Diverticulitis Hyperlipidemia Recurrent infections rt foot 5th toe Family History Medical History Relation Name Comments Diabetes Brother Heart Disease Brother Heart Disease Father at age 61 Relation Name Status Comments Brother Brother Father Social History Tobacco Use Types Packs/Day Years [...] Assigned at Date Recorded Not on file Last Filed Vital Signs Vital Sign Reading Time Taken Comments Blood Pressure 121/64 04/17/2020 1248 EDT Pulse 75 04/17/2020 1248 EDT Temperature 36.4 ??C (97.5 ??F) 03/22/2020 1258 EDT Respiratory Rate 18 03/22/2020 0922 EDT Oxygen Saturation 97% 04/17/2020 1248 EDT Inhaled Oxygen Concentration - - Weight 103 kg (227 lb) 05/04/2020 0908 EDT Height 175.3 cm (5' 9) 03/19/2020 1359 EDT Body Mass Index 33.52 03/19/2020 1359 EDT Plan of Treatment Upcoming Encounters Date Type Specialty Care Team Description 09/29/2022 Office Visit Gastroenterology and Shaq Phan, Hepatology [address] [facility], [facility], [address] [place] [address] (Wo rk) Health Maintenance Due Date Last Done Comments Eye Exam 1955 Foot Exam 1955 Hepatitis C Screen 1955 Microalbumin/Creatinine Ratio 1955 COVID-19 Vaccine (#1) 05[birth year]16/1956 Lipid Profile Screening 02/10/2017 02/11/2016, 08/18/2012, (Cholesterol) 06/16/2012, Additional history exists Hemoglobin A1C (Ha1C) 09/16/2020 03/19/2020, 12/03/2018, 02/10/2016, Additional history exists Fall Risk Screening 05/04/2021 05/04/2020 Insurance Payer Benefit Plan / Subscriber ID Effective Dates Phone Addre ss Type Group MEDICARE MEDICARE A/B [id number] 2020-Ivett Wilson [id number] [place] [address] Raul Trujillo Personal/Family Self 1955 [address] [place] [address] Raul Trujillo Personal/Family Self 1955 [address] [place] [address] Raul Trujillo Personal/Family Self [address] [place] [address] Raul Trujillo Personal/Family Self 1955 [address] [place] [address] Advance Directives For more information, please contact: [phone] Documents on File Type Date Recorded Patient Dressmaker Helper Explanati on Advance Directive 12/07/2018 15:17 [place] Advance Dir ective, DPOA for Health Care & Living Will signed 2017 Latest Code Status on File Code Status Date Activated Date Inactivated Comments Full Code 03/19/2020 1:32 03/22/2020 18:27 Reason for decision includes: Full code consistent with over all plan of care Who participated in the discussion? Patient Full Code 12/02/2018 17:50 12/03/2018 20:43 Reason for decision includes: Full code consistent with over all plan of care Who participated in the discussion? Patient Full Code 02/10/2016 23:20 02/12/2016 16:50 Reason for decision includes: Full code consistent with over all plan of care Who participated in the discussion? Not Discussed Full Code 09/09/2009 18:16 09/11/2009 14:55 Full Code 09/07/2009 12:27 09/08/2009 15:06 Care Teams Director Service Relationship Specialty Start Date End Date Denise Hooker, PRODUCT MARKETING SPECIALIST PCP - General 09/13/[address] [place] [id number]
--- OUTSIDE RECORDS SUMMARY | 2022-02-21 01:10 | XMS_ITS | Encounter Summary ---
:1955 Author Organization [facility] Address [address] [place] [address] Care Team Providers Name Role Phone Denise Hooker APRN Primary Care Provider [phone] Reason for Visit Reason Comments Follow-up red Encounter Details Date Type Department Care Team Description 04/17/2020 Office Visit [facility] Letty Mackey, NAFLD (nonalcoholic Gastroenterology - Main [place] fatty liver [place] [facility]) (Primary [address] [facility] Dx) [place], [place] [id number] [place] [address] [facility] [address] Social History Tobacco Use Types Packs/Day Years [...] EDT Pulse 75 04/17/2020 1248 EDT Temperature - - Respiratory Rate - - Oxygen Saturation 97% 04/17/2020 1248 EDT Inhaled Oxygen Concentration - - Weight 103.9 kg (229 lb) 04/17/2020 1248 EDT Height - - Body Mass Index 33.82 03/19/2020 1359 EDT documented in this encounter [...] documented as of this encounter Progress Notes Tej Garcia MD - 04/17/2020 1300 EDT Gastroenterology & Hepatology Clinic Note The Gastroenterology service was consulted to see Raul Trujillo for fatty liver Requesting Physician: Denise Hooker HPI: 64 y.o.male with a history of CAD, DM2, HTN, and HLD found to have fatty liver on imaging. Also withIBS like symptoms- bloating, diarrhea, has had normal colonoscopy in the past, per patient. Recall, the patient was first diagnosed with fatty liver based on imaging 15-20 years ago, also with elevatedliver tests. Fibroscan in Aug 2019 read as F3 (12.6kPa). ?? Since he was last seen, he was hospitalized for an NSTEMI and underwent LHC which noted spasm and patent stents. EF was preserved. He had some NSVT while hospitalized and was discharged with a 30 day Holter monitor. He has felt well since discharge. He denies any issues with jaundice, edema, abdominaldistention, confusion, or blood in stool. He has lost 6lbs over the past 2-3 months which he attributes to eating healthier. His sciatica has been acting up which has limited his ability to exercise. He was laid off with [employer], so has decided to have an early halfway. He is planning to spend this winter in [place]. He does not have a doctor [facility], but [facility] He reports his most recent HbA1c was about 7. Patient reports ongoing issues with diarrhea. He has 2 formed stools a day and an additional 2-3 watery stools a day. Stools are associated with a great deal of urgency. No nocturnal bowel movements. Diarrhea has been present for years, but frequency increased over the past 1-2 years. He has gotten symptom relief from probiotics and eating more yogurt in the past, but his symptoms appear to have recurred. He finds that eggs and spaghetti are dietary triggers. He started to take kaopectate, but has not had symptom relief. History of DM: yes BMI: 33.82 Alcohol use: rare (twice a year) History of HLD: yes History of HTN: yes Liver imaging: yes (fatty liver on RUQ US in March 2019) History of liver biopsy: no Colonoscopy: ([facility]). Noted diverticula. Some polyps removed (patient unsure of histology). He was having some rectal bleeding at the time which prompted the colonoscopy. ROS: Full review of systems was negative except as detailed above. Past Medical History: Diagnosis Date ??? CAD (coronary artery disease) 09-10-09 PCI LAD prox MARY, LAD mid MARY, LAD distal BMS; 09-07-09 PCI MARY X 3 RCA; 2004 stents X2 ??? Diabetes mellitus ([facility]) oral agents ??? Diverticulitis ??? Hyperlipidemia ??? Hypertension ??? CA (myocardial infarction) ([facility]) 1992, 2003 ??? Recurrent infections rt foot 5th toe Past Surgical History: Procedure Laterality Date ??? CARPAL TUNNEL RELEASE bilateral ??? ROTATOR CUFF REPAIR right, fall 2014 ??? 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 UMBILICAL HERNIA REPAIR Jun, 2009 MEDICATION LIST: See MAR Allergies Allergen Reactions ??? Imdur [Isosorbide Mononitrate] Severe headache ??? Indoramin Headaches Social History Socioeconomic History ??? Marital status: Spouse name: Not on file ??? Number of children: Not on file ??? Years of education: Not on file ??? Highest education level: Not on file Occupational History ??? Not on file Social Needs ??? Financial resource strain: Not on file ??? Food insecurity Worry: Not on file Inability: Not on file ??? Transportation needs Medical: Not on file Non-medical: Not on file Tobacco Use ??? Smoking status: Former Smoker Years: 20.00 Types: Cigarettes Quit date: 05/1994 Years since quittin.9 ??? Smokeless tobacco: Never Used Substance and Sexual Activity ??? Alcohol use: Yes Comment: rare ??? Drug use: No ??? Sexual activity: Not on file Lifestyle ??? Physical activity Days per week: Not on file Minutes per session: Not on file ??? Stress: Not on file Relationships ??? Social connections Talks on phone: Not on file Gets together: Not on file Attends rastafari service: Not on file Active member of club or organization: Not on file Attends meetings of clubs or organizations: Not on file Relationship status: Not on file ??? Intimate partner violence Fear of current or ex partner: Not on file Emotionally abused: Not on file Physically abused: Not on file Forced sexual activity: Not on file Other Topics Concern ??? Not on file Social History Narrative ??? Not on file Family History Problem Relation Age of Onset ??? Diabetes Brother ??? Heart Disease Brother ??? Heart Disease Father at age 61 PE: Vitals: 04/17/20 1248 BP: 121/64 Pulse: 75 SpO2: 97% Weight: (!) 103.9 kg (229 lb) Gen: NAD. AAOx3. Obese Skin: Warm. Dry. No rashes HEENT: Anicteric Sclera Pulm: CTAB. No wheezing, rales, or rhonchi Card: RRR. S1, S2 normal. No murmurs, rubs, or gallops Abd: Soft. Non-distended. Non-tender. Ext: No edema Neuro: Spontaneously moving bilateral upper and lower extremities without focal deficits Laboratory/Imaging/Procedures: RUQ US 01/26/20 - hepatic steatosis and hepatomegaly. Echogenic appearance of pancreas suggests fatty replacement Bloodwork 07/26/19 Na 139 Cr 1.04 TBili 0.5 AST 40 ALT 55 Alk Phos 82 Albumin 4.6 Labs: 04/17/20 141/4.3 101/29 17/0.79 AST/ALT 38/60 Tbili 0.5 Alk phosph 73 7.85 > 14.1/43.4 < 269 INR 1.1 MELD-Na score: 7 at 04/17/2020 14:09 MELD score: 7 at 04/17/2020 14:09 Calculated from: Serum Creatinine: 0.79 mg/dL (Rounded to 1 mg/dL) at 04/17/2020 14:09 Serum Sodium: 141 mEq/L (Rounded to 137 mEq/L) at 04/17/2020 14:09 Total Bilirubin: 0.5 mg/dL (Rounded to 1 mg/dL) at 04/17/2020 14:09 INR(ratio): 1.1 Ratio at 04/17/2020 14:09 Age: 64 years 5 months Impression: 64 y.o. male with a history of DM2, HTN, dyslipidemia, and CAD who was referred to GI for fatty liver (F3 on Fibroscan 12.6 kPa Aug 2019). He has had a recent NSTEMI, potentially related to vasospasm vs small vessel disease. We discussed his risk of HCC with advanced hepatic fibrosis and metabolic risk factors such as diabetes. We discussed the importance of weight loss to improve his fatty liver andother metabolic comorbidities. We also discussed that the primary cause of in NAFLD is CV disease. Recommendations: -RUQ US every 6 month for HCC screening given advanced hepatic fibrosis -Next due Jul 2020. Informed patient he needs to find a doctor in [place] to help coordinate his screening -CMP, CBC, INR ordered - emphasized the importance of diet, exercise, and weight loss with goal weight reduction of 5-10% of body weight - immune to HBV, needs HAV vaccination - emphasized the importance of controlling other fatty liver risk factors - will defer management of HLD, DM, HTN to patient's PCP - statins are ok to use in patients with underlying fatty liver - plan for repeat Fibroscan in the future to reassess fibrosis staging in setting of weight loss - Loperamide PRN for diarrhea - Advised to take metamucil wafers to help with diarrhea - f/u in 6 months as patient is planning to spend the winter in [place] This patient was seen and examined with Dr. Narendra Garcia MD Gastroenterology & Hepatology Fellow #[id number] GI Attending Addendum: Patient seen and examined with the resident/fellow. Reviewed and agree with findings and plan of care documented in fellow note. In brief, Raul Trujillo is a 64 y.o. male with history of DM2, HTN, HLD, fatty live on imaging, F3 on Fibroscan, recent hospital admission for NSTEMI, here for follow up. Overall, has been doing ok since hospital discharge- following with cardiology. On exam, pleasant, NAD, MMM, RRR, CTA, soft, obese abdomen, no distension, no LE edema We discussed the implications of being F3 on Fibroscan, specifically the risk of developing HCC and the need for imaging of his liver every 6-12 months for HCC screening- last ultrasound 01/2020- will plan for repeat ultrasound in 2020. We discussed the importance of diet, exercise, and weight loss. Wediscussed the importance of glycemic control. We also discussed how the leading cause of mortality in patients with fatty liver is related to cardiovascular disease- stressed the importance of cardiology follow up and risk factor modification. Will plan for follow up in 6 months, or sooner if needed. Letty Mackey MD Gastroenterology and Hepatology [facility] documented in this encounter Plan of Treatment Upcoming Encounters Date Type Specialty Care Team Description 09/29/2022 Office Visit Gastroenterology and Shaq Phan, Hepatology [address] [facility], [address] [place] [address] (Wo rk) documented as of this encounter Results (ABNORMAL) COMPLETE BLOOD COUNT (04/17/2020 14:09 EDT) Pathologist Sig nature WBC 7.85 4.00 - 10.40 K/cmm [facility] RBC 5.14 4.36 - 5.78 M/cmm [facility] Hemoglobin 14.1 13.8 - 17.3 gm/dL [facility] HCT 43.4 39.5 - 50.2 % [facility] MCV 84 81 - [address] [facility] MCH 27.4 (L) 27.6 - 33.[address] [facility] MCHC 32.5 (L) 32.8 - 36.4 gm/dL [facility] RDW-CV 13.2 <14.2 % [facility] RDW-SD 41.2 <46.[address] [facility] PLT 269 141 - 377 K/cmm [facility] MPV 10.1 9.5 - 12.[address] [facility] Specimen Blood - Venous blood (substance) Performing Organization Address City/State/ZIP Code Phon e Number [facility] [address] [place] [address] SERVICES PROTIME (04/17/2020 14:09 EDT) Pathologist Sig nature I.N.R. 1.1 0.9 - 1.[address] [facility] Pro Time 12.3 10.3 - 13.[address] [facility] Specimen Blood - Venous blood (substance) Narrative [facility] - 04/17/2020 14:46 EDT Moderate Intensity Coumadin INR = 2.0-3.0 Adjustments in anticoagulant therapy dos e should be based on the INR and NOT on the Protime. Performing Organization Address City/[facility]/ZIP Code Phon e Number [facility] [address] [place] [address] SERVICES (ABNORMAL) COMPREHENSIVE METABOLIC PANEL (CMP) (04/17/2020 14:09 EDT) Sodium 141 136 - 145 [facility] mEq/L [facility] Potassium 4.3 3.5 - 5.0 [facility] mEq/L [facility] Chloride 101 96 - 110 [facility] mEq/L [facility] CO2 Total 29 22 - 32 mEq/L [facility] Glucose 148 (H) 70 - 100 [facility] mg/dL [facility] BUN 17 10 - 26 mg/dL [facility] Creatinine 0.79 0.66 - 1.25 [facility] mg/dL [facility] eGFR 94Comment: eGFR >60 [facility] calculated using mL/min/1.73m2 [facility] CKD-EPI equation SERVICES for non- Americans. Multiply eGFR by 1.16 for patients. Total Protein 7.1 6.3 - 8.2 [facility] g/dL [facility] Albumin 4.3 3.4 - 4.9 [facility] g/dL [facility] Alkaline 73 38 - 126 U/L [facility] Phosphatase [facility] AST 38 15 - 46 U/L [facility] ALT 60 (H) <50 U/L [facility] Bilirubin, Total 0.5 <1.4 mg/dL [facility] Calcium 9.8 8.5 - 10.5 [facility] mg/dL [facility] Calculated Calcium 9.6 8.5 - 10.5 [facility] mg/dL [facility] Specimen Blood - Venous blood (substance) Performing Organization Address City/State/ZIP Code Phon e Number [facility] [address] [place] [address] SERVICES documented in this encounter Visit Diagnoses Diagnosis NAFLD (nonalcoholic fatty liver disease) - Primary Other chronic nonalcoholic liver disease documented in this encounter Care Teams Track Repairer Relationship Specialty Start Date End Date Denise Hooker APRN PCP - General 09/13/18 [address] [place], [place] [address] documented as of this encounter
--- OUTSIDE RECORDS SUMMARY | 2022-02-21 01:10 | XMS_ITS | Encounter Summary ---
:1955 Author Organization [facility] Address [address] [place] [address] Care Team Providers Name Role Phone Denise Hooker APRN Primary Care Provider [phone] Encounter Details Date Type Department Care Team Description 04/17/2020 Phlebotomy Only [facility] 2 [employer] Servicer, [facility] NAFLD (nonalcoholic Phlebotomy Phlebotomy fatty liver disease) [address] [facility] (Primary Dx) [place], [place] [address] Social History Tobacco Use Types Packs/Day Years [...] or older) documented as of this encounter Plan of Treatment Upcoming Encounters Date Type Specialty Care Team Description 09/29/2022 Office Visit Gastroenterology and Shaq Phan Hepatology [address] [facility], [facility], [facility] [address] [place] [address] (Wo rk) documented as of this encounter Procedures Procedure Name Priority Date/Time Associated Comments Diagnosis PROTIME Routine 04/17/2020 14:09 NAFLD (nonalcoholic Resu lts for this EDT fatty liver procedure are i n disease) the results section. COMPLETE BLOOD COUNT Routine 04/17/2020 14:09 NAFLD (nonalcoho lic Results for this EDT fatty liver procedure are i n disease) the results section. COMPREHENSIVE Routine 04/17/2020 14:09 NAFLD (nonalcoholic Res ults for this METABOLIC PANEL (CMP) EDT fatty liver proced ure are in disease) the results section. documented in this encounter Results (ABNORMAL) COMPLETE BLOOD COUNT (04/17/2020 14:09 EDT) Pathologist Sig nature WBC 7.85 4.00 - 10.40 K/cmm [facility] RBC 5.14 4.36 - 5.78 M/cmm [facility] Hemoglobin 14.1 13.8 - 17.3 gm/dL [facility] HCT 43.4 39.5 - 50.2 % [facility] MCV 84 81 - 95 fl [facility] MCH 27.4 (L) 27.6 - 33.0 pg [facility] MCHC 32.5 (L) 32.8 - 36.4 gm/dL [facility] RDW-CV 13.2 <14.2 % [facility] RDW-SD 41.2 <46.0 fl [facility] PLT 269 141 - 377 K/cmm [facility] MPV 10.1 9.5 - 12.7 fl [facility] Specimen Blood - Venous blood (substance) Performing Organization Address City/State/ZIP Code Phon e Number [facility] [address] [place] [address] SERVICES PROTIME (04/17/2020 14:09 EDT) Pathologist Sig nature I.N.R. 1.1 0.9 - 1.1 Ratio [facility] Pro Time 12.3 10.3 - 13.4 secs [facility] Specimen Blood - Venous blood (substance) Narrative [facility] - 04/17/2020 14:46 EDT Moderate Intensity Coumadin INR = 2.0-3.0 Adjustments in anticoagulant therapy dos e should be based on the INR and NOT on the Protime. Performing Organization Address City/State/ZIP Code Phon e Number [facility] [address] [place] [address] SERVICES (ABNORMAL) COMPREHENSIVE METABOLIC PANEL (CMP) (04/17/2020 14:09 EDT) Sodium 141 136 - 145 [facility] mEq/L [facility] Potassium 4.3 3.5 - 5.0 [facility] mEq/L [facility] Chloride 101 96 - 110 [facility] mEq/L [facility] CO2 Total 29 22 - 32 mEq/L [facility] Glucose 148 (H) 70 - 100 [facility] mg/dL [facility] BUN 17 10 - 26 mg/dL [facility] Creatinine 0.79 0.66 - 1.25 [facility] mg/dL [facility] eGFR 94Comment: eGFR >60 [facility] calculated using mL/min/1.73m2 [facility] CKD-EPI equation SERVICES for non- Americans. Multiply eGFR by 1.16 for patients. Total Protein 7.1 6.3 - 8.2 [facility] g/dL [facility] Albumin 4.3 3.4 - 4.9 [facility] g/dL [facility] Alkaline 73 38 - 126 U/L [facility] Phosphatase [facility] AST 38 15 - 46 U/L [facility] ALT 60 (H) <50 U/L [facility] Bilirubin, Total 0.5 <1.4 mg/dL [facility] Calcium 9.8 8.5 - 10.5 [facility] mg/dL [facility] Calculated Calcium 9.6 8.5 - 10.5 [facility] mg/dL [facility] Specimen Blood - Venous blood (substance) Performing Organization Address City/State/ZIP Code Phon e Number [facility] [address] [place] [address] SERVICES documented in this encounter Visit Diagnoses Diagnosis NAFLD (nonalcoholic fatty liver disease) - Primary Other chronic nonalcoholic liver disease documented in this encounter Care Teams Screen Printing Press Operator Relationship Specialty Start Date End Date Denise Hooker APRN PCP - General 09/13/18 [address] [place] [address] documented as of this encounter
--- OUTSIDE RECORDS SUMMARY | 2022-02-21 01:10 | XMS_ITS | Encounter Summary ---
:1955 Author Organization [facility] Address [address] [place] [address] Care Team Providers Name Role Phone Denise Hooker APRN Primary Care Provider [phone] Reason for Visit Reason Onset Date Comments Telemedicine Video Visit 04/04/2020 Encounter Details Date Type Department Care Team Description 04/04/2020 Telephone [facility] Kitty Medina T elemedicine Video Cardiology - Jenelle HAYES Visit [address] [place], [place] [address] [address] [place], [place] [phone] (Wo rk) Social History Tobacco Use Types [...] this encounter Miscellaneous Notes Telephone Encounter - Rona Baltazar - 04/04/2020 1251 EDT Patient called telehealth support team to report he has recently been having issues with his internet connection. He states for now, it seems to be working and he plans on having the video visit with Dr. Medina at 1pm today. Palliative Senior [facility] informed patient that this group would not be able to address internet connection and it would need to be through their telecom company. Patient just wants provider to be aware of recent issues, so if he loses connection he requests a phone call. documented in this encounter Plan of Treatment Upcoming Encounters Date Type Specialty Care Team Description 09/29/2022 Office Visit Gastroenterology and Shaq Phan, Hepatology [address] [facility], [address] [place] [address] (Wo rk) documented as of this encounter Visit Diagnoses Not on filedocumented in this encounter Care Teams Psychometrician Relationship Specialty Start Date End Date Denise Hooker APRN PCP - General 09/13/18 [address] [place] [address] documented as of this encounter
--- OUTSIDE RECORDS SUMMARY | 2022-02-21 01:10 | XMS_ITS | Encounter Summary ---
:1955 Author Organization [facility] Address [address] [place] [address] Care Team Providers Name Role Phone Denise Hooker APRN Primary Care Provider [phone] Encounter Details Date Type Department Care Team Description 04/17/2020 Travel Social History Tobacco Use Types Packs/Day Years [...] Gastroenterology and Shaq Phan, Hepatology [address] [facility], [facility] [address] [place] [phone] (Wo rk) documented as of this encounter Visit Diagnoses Not on filedocumented in this encounter Care Teams Land Surveying Survey Worker Relationship Specialty Start Date End Date Denise Hooker APRN PCP - General 09/13/18 [address] [place] [address] documented as of this encounter
--- OUTSIDE RECORDS SUMMARY | 2022-02-21 01:11 | XMS_ITS | Encounter Summary ---
:1955 Author Organization [facility] Address [address] [place] [address] Care Team Providers Name Role Phone Denise Hooker APRN Primary Care Provider [phone] Reason for Referral Radiology Services (Routine) - Authorization Not Required Specialty Diagnoses / Procedures Referred By Contact Refer red To Contact Diagnoses Fatty liver Letty Mackey MD Procedures US ABDOMEN LIMITED [address] [place] [phone] Referral ID Status Reason Start Expiration Visits Visits Date Date Requested Authorized [id number] Authorization Not 12/06/2019 1 1 Required Reason for Visit Reason Comments Follow-up Encounter Details Date Type Department Care Team Description 12/06/2019 Office Visit [facility] Letty Mackey, Fatty liver Gastroenterology - Abel HAYES (Primary Dx) Rudd [address] [place] [address] [address] Social History Tobacco Use Types Packs/Day Years [...] Assigned at Date Recorded Not on file documented as of this encounter Last Filed Vital Signs Vital Sign Reading Time Taken Comments Blood Pressure - - Pulse - - Temperature - - Respiratory Rate - - Oxygen Saturation - - Inhaled Oxygen Concentration - - Weight 106.6 kg (235 lb) 12/06/2019 1525 EDT Height 176.5 cm (5' 9.5) 12/06/2019 1525 EDT Body Mass Index 34.21 12/06/2019 1525 EDT documented in this encounter Functional Status Functional Status Response Date of Assessment Are you deaf or do you have serious difficulty hearing? No 12/02/2018 Are you blind or do you have serious difficulty seeing, No 12/02/2018 even when wearing glasses? Do you have serious difficulty walking or climbing No 12/02/2018 stairs? (5 years old or older) Do you have difficulty dressing or bathing? (5 years old No 12/02/2018 or older) Because of a physical, mental, or emotional condition, do No 12/02/2018 you have difficulty doing errands alone such as visiting a doctor's office or shopping? (15 years old or older) Cognitive Status Response Date of Assessment Because of a physical, mental, or emotional condition, do No 12/02/2018 you have serious difficulty concentrating, remembering, or making decisions? (5 years old or older) documented as of this encounter Patient Instructions Patient InstructionsLetty Mackey MD - 12/06/2019 16:00 EDT - look into low FODMAP diet - plan for liver ultrasound - keep up the great work with diet, exercise, and weight loss - at some point in the future, will plan for repeat Fibroscan - follow up with me in 5 months documented in this encounter Progress Notes Letty Mackey MD - 12/06/2019 1600 EDT [facility] Gastroenterology and Hepatology follow up: Referring Provider: Denise Hooker APRN Reason for Consult: fatty liver HPI: Raul Trujillo is 64 y.o. male with history of DM, HTN, HLD, found to have fatty liver on imaging. Also with IBS like symptoms- bloating, diarrhea, has had normal colonoscopy in the past, per patient. Recall, the patient was first diagnosed with fatty liver based on imaging 15-20 years ago, also with elevated liver tests. Here today for visit. Since last visit, had Fibroscan done that was notable for F3, 12.6 kPa. Also with ongoing abdominal issues- was started on PPI. Had negative celiac testing done. Planning to move to [place], but plans on being in [place] for the summer. Planning on retiring this fall. Has lost about ten pounds since last visit- cut back on red meat, being better about his diet. Reports that his sugars have been better controlled- insulin dropped from 35 to 20 units BID. Also exercising more, walking more and bike riding. In terms of stomach issues, started probiotic, PPI and has been increasing his yogurt intake. Reports that symptoms have since resolved. Reports that his diarrhea has improving- notes that it is triggered by certain foods. History of DM: yes BMI: 34.21 Alcohol use: rare (twice a year) History of HLD: yes History of HTN: yes Liver imaging: yes (fatty liver on RUQ US in March 2019) History of liver biopsy: no Colonoscopy: 4-5 years ago ([facility]). Noted diverticula. Some polyps removed (patient unsure ofhistology). He was having some rectal bleeding at the time which prompted the colonoscopy. Past medical history: Past Medical History: Diagnosis Date ??? CAD (coronary artery disease) 09-10-09 PCI LAD prox MARY, LAD mid AMRY, LAD distal BMS; 09-07-09 PCI MARY X 3 RCA; 2003 stents X2 ??? Diabetes mellitus ([facility]) oral agents ??? Diverticulitis ??? Hyperlipidemia ??? Hypertension ??? AR (myocardial infarction) ([facility]) 1992, 2003 ??? Recurrent infections rt foot 5th toe Medications: Current Outpatient Medications: amlodipine (NORVASC) 10 mg tablet aspirin chewable 81 mg tablet dapagliflozin (FARXIGA) 5 mg tablet ERGOCALCIFEROL, VITAMIN D2, (VITAMIN D ORAL) exenatide microspheres (BYDUREON) 2 mg/0.65 mL pen injector insulin glargine (LANTUS) 100 unit/mL injection lisinopril (PRINIVIL, ZESTRIL) 5 mg tablet LORazepam (ATIVAN) 2 mg tablet metFORMIN (GLUCOPHAGE) 1,000 mg tablet METOPROLOL SUCCINATE ORAL nitroGLYCERIN (NITROSTAT) 0.4 mg SL tablet rosuvastatin (CRESTOR) 40 mg tablet sertraline (ZOLOFT) 50 mg tablet traZODone (DESYREL) 50 mg tablet No current facility-administered medications for this visit. Physical Exam: VS: Ht 176.5 cm (69.5) Wt (!) 106.6 kg (235 lb) BMI 34.21 kg/m?? General: NAD, pleasant HEENT: no scleral icterus CV: RRR, normal S1, S2. +murmur heard best over left 2nd intercostal space Lungs: CTA b/l, no wheezes/crackles Abdomen: soft, non tender, non distended, no hepatomegaly, no splenomegaly, obese abdomen Extremities: no LE edema Neuro: grossly intact Skin: no jaundice, no rashes Reviewed Data: 04/07/19 RUQ ultrasound: Findings: An enlarged fatty liver is demonstrated with a maximal length of 18.9 cm. The gallbladder is 1.1 mm in thickness. Multiple small gallstones are identified in the gallbladder, the largest of which measures approximately 3 mm. There is no evidence of ductal obstruction. Assessment and Plan: Raul Trujillo is 64 y.o. with a history of DM2, HTN, dyslipidemia, and CAD who was referred to GI for fatty liver, F3 on Fibroscan 12.6 kPa. Working on diabetic control and weight loss. GI symptoms improving with dietary modifications. - emphasized the importance of diet, exercise, and weight loss with goal weight reduction of 5-10% of body weight - applauded the patient for weight loss and encouraged him to continue - immune to HBV, needs HAV vaccination - given F3 on Fibroscan, will plan for start HCC screening every 6-12 months with ultrasound (ordered today) - emphasized the importance of controlling other fatty liver risk factors - will defer management of HLD, DM, HTN to patient's PCP - statins are ok to use in patients with underlying fatty liver - plan for repeat Fibroscan in the future to reassess fibrosis staging in setting of weight loss - plan for follow up with me before going to [place] for winter Letty Mackey MD Gastroenterology and Hepatology [facility] documented in this encounter Plan of Treatment Upcoming Encounters Date Type Specialty Care Team Description 09/29/2022 Office Visit Gastroenterology and Shaq Phan, Hepatology [address] [facility], [address] [place] [phone] (Wo rk) documented as of this encounter Results US ABDOMEN LIMITED (01/26/2020 13:21 EDT) Anatomical Region Laterality Modality Abdomen, Body Ultrasound Specimen Impressions [facility] - 01/26/2020 13:42 EDT 1. ??Hepatomegaly and hepatic steatosis with areas of focal fatty sparing adjacent to the gallbladder fossa and falciform ligament. 2. ??Echogenic appearance of the pancrea s suggests fatty replacement. 3. ??Right renal cyst. Narrative [facility] - 01/26/2020 13:42 EDT US ABDOMEN LIMITED ??01/26/2020 1:45 PM SIGNS AND SYMPTOMS/COMMENTS: fatty liver , F3, HCC screening COMPARISON: None relevant TECHNIQUE: Grayscale and Doppler ultraso und evaluation of the right upper quadrant of the abdomen was performed. FINDINGS: PANCREAS: Pancreas appears diffusely ech ogenic, suggestive of fatty replacement. LIVER: The liver measures 20.5 cm in eusebio gth, which is enlarged. Hepatic echotexture is diffusely increased, consistent with steatosis. There is a focal fatty sparing is seen adjacent to the gallbladder fossa and falciform ligament. RIGHT KIDNEY: The right kidney measures 12.9 cm in length. A 2.5 x 2 x 2.3 cm cyst is seen in the lateral aspect of the right kidney. There is no hydronephrosis or nephrolithiasis. GALLBLADDER: The gallbladder wall measur es 0.3 mm in thickness, which is normal. No evidence of cholelithiasis. BILE DUCTS: The common duct measures 4 m m in diameter at the mehdi hepatis, which is normal. PROXIMAL ABDOMINAL AORTA / IVC: Grossly normal Procedure Note Arabella Alvarez MD - 01/26/2020 US ABDOMEN LIMITED 01/26/2020 1:45 PM SIGNS AND SYMPTOMS/COMMENTS: fatty liver , F3, HCC screening COMPARISON: None relevant TECHNIQUE: Grayscale and Doppler ultraso und evaluation of the right upper quadrant of the abdomen was performed. FINDINGS: PANCREAS: Pancreas appears diffusely ech ogenic, suggestive of fatty replacement. LIVER: The liver measures 20.5 cm in eusebio gth, which is enlarged. Hepatic echotexture is diffusely increased, consistent with steatosis. There is a focal fatty sparing is seen adjacent to the gallbladder fossa and falciform ligament. RIGHT KIDNEY: The right kidney measures 12.9 cm in length. A 2.5 x 2 x 2.3 cm cyst is seen in the lateral aspect of the right kidney. There is no hydronephrosis or nephrolithiasis. GALLBLADDER: The gallbladder wall measur es 0.3 mm in thickness, which is normal. No evidence of cholelithiasis. BILE DUCTS: The common duct measures 4 m m in diameter at the mehdi hepatis, which is normal. PROXIMAL ABDOMINAL AORTA / IVC: Grossly normal IMPRESSION 1. Hepatomegaly and hepatic steatosis wi th areas of focal fatty sparing adjacent to the gallbladder fossa and falciform ligament. 2. Echogenic appearance of the pancreas suggests fatty replacement. 3. Right renal cyst. Performing Organization Address City/State/ZIP Code Phon e Number [facility] documented in this encounter Visit Diagnoses Diagnosis Fatty liver - Primary Other chronic nonalcoholic liver disease Fatty liver Other chronic nonalcoholic liver disease documented in this encounter Care Teams Manager Utilization Relationship Specialty Start Date End Date Denise Hooker, JENNIFER PCP - General 09/13/18 [address] [place] [address] documented as of this encounter
--- OUTSIDE RECORDS SUMMARY | 2022-02-21 01:11 | XMS_ITS | Encounter Summary ---
:1955 Author Organization [facility] Address [address] [place] [address] Care Team Providers Name Role Phone Denise Hooker APRN Primary Care Provider [phone] Reason for Visit Reason Onset Date Comments Appointment Related 08/26/2019 Encounter Details Date Type Department Care Team Description 08/26/2019 Telephone [facility] Ken Bran, Appointment Related Neurology - S Arcelia chi MD [address] [phone] [facility] [address] [place] [address] (Wo rk) Social History Tobacco Use Types [...] on file documented as of this encounter Functional Status [...] this encounter Miscellaneous Notes Telephone Encounter - Vashti Chau - 08/26/2019 1534 EST Scheduled 6 month follow up with Dr. Bran for 02/20/20 at 2:30 PM Sent confirmation letter elephone Encounter - Vashti Chau - 08/26/2019 1533 EST ----- Message from Ken Bran MD sent at 08/25/2019 11:33 EST ----- Regarding: Follow Please schedule follow in 6 months. Thanks documented in this encounter Plan of Treatment Upcoming Encounters Date Type Specialty Care Team Description 09/29/2022 Office Visit Gastroenterology and Shaq Phan, Hepatology [address] [facility], [address] [place] [address] (Wo rk) documented as of this encounter Visit Diagnoses Not on filedocumented in this encounter Care Teams Supervisor Sleeping Bag Department Relationship Specialty Start Date End Date Denise Hooker APRN PCP - General 09/13/18 [address] [place] [address] documented as of this encounter
--- OUTSIDE RECORDS SUMMARY | 2022-02-21 01:11 | XMS_ITS | Encounter Summary ---
:1955 Author Organization [facility] Address [address] [place] [address] Care Team Providers Name Role Phone Denise Hooker APRN Primary Care Provider [phone] Reason for Visit Reason Onset Date Comments Results 01/27/2020 Encounter Details Date Type Department Care Team Description 01/27/2020 Telephone [facility] Letty Mackey MD Results Gastroenterology - Main 111 [facility], Main [address] [facility], [address] [place], [place] [id number] [place] [address] [phone] (Wo rk) Social History Tobacco Use [...] been in contact with No / Unsure 01/26/2020 12:32 EDT someone who was confirmed or suspected [...] this encounter Miscellaneous Notes Telephone Encounter - Letty Mackey MD - 01/27/2020 4825 EDT Called the patient to review his recent liver ultrasound- hepatomegaly and hepatic steatosis- no evidence of any liver lesions. Given F3 on Fibroscan, will [facility]. The patient has follow up to see me in March. Asked him to call with any questions or concerns that may arise in the interim. Letty Mackey MD Gastroenterology and Hepatology [facility] documented in this encounter Plan of Treatment Upcoming Encounters Date Type Specialty Care Team Description 09/29/2022 Office Visit Gastroenterology and Shaq Phan, Hepatology 111 [facility], [address] [place] [address] (Wo rk) documented as of this encounter Visit Diagnoses Not on filedocumented in this encounter Care Teams Appraiser Timber Relationship Specialty Start Date End Date Denise Hooker, GEOPHYSICAL MANAGER PCP - General 09/13/18 [address] [place] [address] documented as of this encounter
--- OUTSIDE RECORDS SUMMARY | 2022-02-21 01:11 | XMS_ITS | Encounter Summary ---
:1955 Author Organization [facility] Address [address] [place] [address] Care Team Providers Name Role Phone Denise Hooker APRN Primary Care Provider [phone] Reason for Visit Reason Onset Date Comments Paperwork request 06/02/2019 Encounter Details Date Type Department Care Team Description 06/02/2019 Telephone [facility] Ken Bran, Paperwork request Neurology - S Arcelia chi MD [address] [phone] [facility] [address] [place] [address] (Wo rk) Social History Tobacco [...] this encounter Miscellaneous Notes Telephone Encounter - Akua Kyle - 06/02/2019 1417 EST Nickie from [facility] called request recent office notes from Dr Bran. Routed notes via fax to [phone] signed by Akua Kyle at 06/02/2019 14:19 ESTdocumented in this encounter Plan of Treatment Upcoming Encounters Date Type Specialty Care Team Description 09/29/2022 Office Visit Gastroenterology and Shaq Phan, Hepatology 111 [facility], [address] [place] [address] (Wo rk) documented as of this encounter Visit Diagnoses Not on filedocumented in this encounter Care Teams Animal Sitter Relationship Specialty Start Date End Date Denise Hooker APRN PCP - General 09/13/18 [address] [place] [address] documented as of this encounter
--- OUTSIDE RECORDS SUMMARY | 2022-02-21 01:11 | XMS_ITS | Encounter Summary ---
:1955 Author Organization [facility] Address [address] [place] [address] Care Team Providers Name Role Phone Denise Hooker APRN Primary Care Provider [phone] Encounter Details Date Type Department Care Team Description 08/25/2019 Orders Only [facility] Ken Bran (Primary Dx); [facility] - [facility] [address] [address] [place], [place] [address] Social History Tobacco Use Types Packs/Day Years [...] Visit Gastroenterology and Shaq Phan, Hepatology 111 [facility] [address] [place] [address] (Wo rk) documented as of this encounter Procedures Procedure Name Priority Date/Time Associated Diagnosis Comme nts TSH Routine 08/25/2019 10:32 EST Weakness Results for this Fasciculation procedure are in the results section . documented in this encounter Results T4 FREE (08/25/2019 10:32 EST) Pathologist Sig nature T4, Free 1.2 0.8 - 2.2 ng/dL [facility] Specimen Blood - Venous blood (substance) Performing Organization Address City/[facility] Code Phon e Number [facility] [address] [place] [address] SERVICES TSH (08/25/2019 10:32 EST) Pathologist Sig nature TSH 1.71 0.47 - 4.68 uIU/mL [facility] Specimen Blood - Venous blood (substance) Narrative [facility] - 08/25/2019 12:34 EST The results of this assay can be falsely lowered due to the consumption of Biotin. Performing Organization Address City/State/ZIP Code Phon e Number [facility] [address] [place] [address] SERVICES CK (08/25/2019 10:32 EST) Pathologist Sig nature CK 107 <=250 U/L [facility] Specimen Blood - Venous blood (substance) Performing Organization Address City/State/ZIP Code Phon e Number [facility] [address] [place] [address] SERVICES PARANEOPL AUTO ANTIBODY, SERUM (08/25/2019 10:32 EST) Interpretive SEE NOTE [facility] Comments Comment: LABORATORIES No informative autoantibodies were detected in the Paraneoplastic Evaluation. However, a negative result does not exclude neurological autoimmunity with or without associated neoplasia. Sensitivity and specificity of antibody testing are enhanced by testing both serum an d CSF. LEISA-1, S Negative <1:240 [facility] titer LABORATORIES Reflex Added None. [facility] Comment: LABORATORIES ADDITIONAL INFORMATION ------ This test was developed and its performance characteri stics determined by [facility] in a manner consistent with CLIA requirements. This test has not been cleared or approv ed by the U.S. Food and Drug Administration. LEISA-2, S Negative <1:240 [facility] Comment: titer LABORATORIES ADDITIONAL INFORMATION ------ This test was developed and its performance characteri stics determined by [facility] in a manner consistent with CLIA requirements. This test has not been cleared or approv ed by the U.S. Food and Drug Administration. LEISA-3, S Negative <1:240 [facility] Comment: titer LABORATORIES ADDITIONAL INFORMATION ------ This test was developed and its performance characteri stics determined by [facility] in a manner consistent with CLIA requirements. This test has not been cleared or approv ed by the U.S. Food and Drug Administration. AGNA-1, S Negative <1:240 [facility] Comment: titer LABORATORIES ADDITIONAL INFORMATION ------ This test was developed and its performance characteri stics determined by [facility] in a manner consistent with CLIA requirements. This test has not been cleared or approv ed by the U.S. Food and Drug Administration. POOL HALL INSPECTOR-1, S Negative <1:240 [facility] Comment: titer KXEN ADDITIONAL INFORMATION ------ This test was developed and its performance characteri stics determined by [facility] in a manner consistent with CLIA requirements. This test has not been cleared or approv ed by the U.S. Food and Drug Administration. POOL HALL INSPECTOR-2, S Negative <1:240 [facility] Comment: titer KXEN ADDITIONAL INFORMATION ------ This test was developed and its performance characteri stics determined by [facility] in a manner consistent with CLIA requirements. This test has not been cleared or approv ed by the U.S. Food and Drug Administration. POOL HALL INSPECTOR-Tr, S Negative <1:240 [facility] Comment: titer KXEN ADDITIONAL INFORMATION ------ This test was developed and its performance characteri stics determined by [facility] in a manner consistent with CLIA requirements. This test has not been cleared or approv ed by the U.S. Food and Drug Administration. Amphiphysin Ab, S Negative <1:240 [facility] Comment: titer KXEN ADDITIONAL INFORMATION ------ This test was developed and its performance characteri stics determined by [facility] in a manner consistent with CLIA requirements. This test has not been cleared or approv ed by the U.S. Food and Drug Administration. CRMP-5-IgG, S Negative <1:240 [facility] Comment: titer KXEN ADDITIONAL INFORMATION ------ This test was developed and its performance characteri stics determined by [facility] in a manner consistent with CLIA requirements. This test has not been cleared or approv ed by the U.S. Food and Drug Administration. Striational Negative <1:120 [facility] (Striated Muscle) Comment: titer LABORATORIES Ab, S ADDITIONAL INFORMATION ------ This test was developed and its performance characteri stics determined by [facility] in a manner consistent with CLIA requirements. This test has not been cleared or approv ed by the U.S. Food and Drug Administration. Test Performed by: [facility] - [address] [address] Die Holder: Chon Carrera M.D. Ph.D.; CLIA# [id number] P/Q-Type Calcium 0.00 <=0.02 [facility] Channel Ab Comment: nmol/L KXEN ADDITIONAL INFORMATION ------ This test was developed and its performance characteri stics determined by [facility] in a manner consistent with CLIA requirements. This test has not been cleared or approv ed by the U.S. Food and Drug Administration. N-Type Calcium 0.00 <=0.03 [facility] Channel Ab Comment: nmol/L KXEN ADDITIONAL INFORMATION ------ This test was developed and its performance characteri stics determined by [facility] in a manner consistent with CLIA requirements. This test has not been cleared or approv ed by the U.S. Food and Drug Administration. AChR Ganglionic 0.00 <=0.02 [facility] Neuronal Ab, S Comment: nmol/L KXEN ADDITIONAL INFORMATION ------ This test was developed and its performance characteri stics determined by [facility] in a manner consistent with CLIA requirements. This test has not been cleared or approv ed by the U.S. Food and Drug Administration. Neuronal (V-G) K+ 0.00 <=0.02 [facility] Channel Ab, S Comment: nmol/L LABORATORIES ADDITIONAL INFORMATION ------ This test was developed and its performance characteri stics determined by [facility] in a manner consistent with CLIA requirements. This test has not been cleared or approv ed by the U.S. Food and Drug Administration. Specimen Blood - Venous blood (substance) Performing Organization Address City/State/[facility] Code Phon e Number [facility] [address] [place] [address] documented in this encounter Visit Diagnoses Diagnosis Weakness - Primary Other malaise and fatigue Fasciculation Abnormal involuntary movements documented in this encounter Care Teams Distribution Center Assistant Relationship Specialty Start Date End Date Denise Hooker APRN PCP - General 09/13/18 [address] [place] [address] documented as of this encounter
--- OUTSIDE RECORDS SUMMARY | 2022-02-21 01:11 | XMS_ITS | Encounter Summary ---
:1955 Author Organization [facility] Address [address] [place] [address] Care Team Providers Name Role Phone Denise Hooker APRN Primary Care Provider [phone] Encounter Details Date Type Department Care Team Description 01/26/2020 Travel Social History Tobacco Use Types Packs/Day [...] Visit Gastroenterology and Shaq Phan, Hepatology [address] [facility], [facility] [address] [place] [phone] (Wo rk) documented as of this encounter Visit Diagnoses Not on filedocumented in this encounter Care Teams Clearance Coordinator Relationship Specialty Start Date End Date Denise Hooker APRN PCP - General 09/13/18 [address] [place] [address] documented as of this encounter
--- OUTSIDE RECORDS SUMMARY | 2022-02-21 01:11 | XMS_ITS | Encounter Summary ---
:1955 Author Organization [facility] Address [address] [place] [address] Care Team Providers Name Role Phone Denise Hooker APRN Primary Care Provider [phone] Reason for Visit Reason Comments Procedure fibroscan Referral (Routine) - Receiving Office to Obtain Authorization Specialty Diagnoses / Referred By Contact Referred To Contact Procedures Gastroenterology and Diagnoses NAFLD (nonalcoholic fatty liver disease) Letty Mackey MD [facility] Hepatology Procedures VIBRATION CONTROLLED TRANSIENT ELASTOGRAPHY (VCTE) [address] [place] [address] [address] [place], [place] Fax: [phone] Referral ID Status Reason Start Expiration Visits Visits Date Date Requested Authorized [id number] Receiving Office 07/26/2019 1 1 to Obtain Authorization Encounter Details Date Type Department Care Team Description 08/31/[address] [facility] Shaq Phan liver Gastroenterology - Abel Boyd MD (Primary Dx) [place] [address] [place] [address] [facility] [address] [place] [address] Social History Tobacco Use Types Packs/Day [...] Sign Reading Time Taken Comments Blood Pressure 136/78 08/31/2019 1404 EST Pulse 88 08/31/2019 1404 EST Temperature - - Respiratory Rate - - Oxygen Saturation - - Inhaled Oxygen Concentration - - Weight 106.6 kg (235 lb) 08/31/2019 1404 EST Height 176.5 cm (5' 9.5) 08/31/2019 1404 EST Body Mass Index 34.21 08/31/2019 1404 EST documented in this encounter Functional Status Functional [...] or older) documented as of this encounter Procedure Notes Shaq Phan MD - 08/31/2019 5400 ESTAssociated Order(s): VIBRATION CONTROLLED TRANSIENT ELASTOGRAPHY (VCTE)Procedure(s): VIBRATION CONTROLLED TRANSIENT ELASTOGRAPHY (VCTE) [facility] Hepatology Fibrosis Assessment Patient: Raul Trujillo : 1955 Belt Changer: Shaq Phan MD Referring Physician: Letty Godinez APRN, MD Disease diagnosis: fatty liver Procedure: Vibration Controlled Transient Elastography (VCTE) or Fibroscan [place] Protocol: Patient's identity, procedure and site were verified, confirmatory pause performed. Discussed procedure including risks and potential complications. Questions answered. Patient verbalizes understanding and wishes to proceed with Fibroscan assessment. Patient was placed in the supine position with right arm in maximum abduction to allow optimal exposure of right lateral abdomen. Patient was briefly assessed. Testing was performed in the mid-axillarylocation. 50Hz Shear Wave pulses were applied and the resulting Shear Wave and Propagation Speed wasdetected with a 3.5MHz ultrasonic signal, using the Fibroscan XL probe. Skin to liver capsule distance and liver parenchyma were accessed during the entire examination with the Fibroscan probe. Patientwas instructed to breathe normally and abstain from sudden movements during the procedure. At least ten Shear Waves were produced; individual measurements of each Shear Wave were calculated. Patient tolerated the procedure well with no complications. Fibroscan Results: Median kPa: 12.6 IQR kPa: 2.2 Fractional IQR: 17% (goal is <30%) Success rate: 77% (goal is >60%) Predicted fibrosis stage: F3 Interpretation: Raul Trujillo is a 63 y.o. male with fatty liver. 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: Advanced hepatic fibrosis (F3) Shaq Phan MD Cc: MD Denise Hoskins APRN [address] / [facility] [address] documented in this encounter Plan of Treatment Upcoming Encounters Date Type Specialty Care Team Description 09/29/2022 Office Visit Gastroenterology and Shaq Phan, Hepatology [address] [facility], [facility], Level [address] [place] [address] (Wo rk) documented as of this encounter Procedures Procedure Name Priority Date/Time Associated Comments Diagnosis VIBRATION CONTROLLED Routine 08/31/2019 14:30 NAFLD (nonalcoho lic Results for this TRANSIENT EST fatty liver procedure are i n ELASTOGRAPHY (VCTE) disease) the resu lts section. documented in this encounter Visit Diagnoses Diagnosis Fatty liver - Primary Other chronic nonalcoholic liver disease documented in this encounter Care Teams Unhairing Machine Operator Relationship Specialty Start Date End Date Denise Hooker, ETL LEAD PCP - General 09/13/18 [address] [place] [address] documented as of this encounter
--- OUTSIDE RECORDS SUMMARY | 2022-02-21 01:11 | XMS_ITS | Encounter Summary ---
:[address] [facility] Address [address] [facility] [place] [address] Care Team Providers Name Role Phone Denise Hooker APRN Primary Care Provider [phone] Encounter Details Date Type Department Care Team Description 07/26/2019 Phlebotomy Only [facility] 2 Asw/Asuw Tactical Air Controller, [facility] ea, unspecified type; Phlebotomy Phlebotomy NAFLD (nonalcoholic fatty li damion disease); [address] [place] [address] Social History Tobacco Use Types Packs/Day Years [...] Visit Gastroenterology and Shaq Phan, Hepatology [address] [facility], [facility] 5 [place] [address] (Wo rk) documented as of this encounter Procedures Procedure Name Priority Date/Time Associated Comments Diagnosis HEPATITIS A TOTAL Routine 07/26/2019 16:17 Elevated LFTs Resul ts for this ANTIBODY W REFLEX EST procedure are in the results section. TISSUE TRANSGLUTAMINASE Routine 07/26/2019 16:17 Diarrhea, Results for this AB EST unspecified type procedure a re in the results section. IGA Routine 07/26/2019 16:17 Diarrhea, Results for this EST unspecified type procedure a re in the results section. HEPATITIS B SURFACE Routine 07/26/2019 16:17 Elevated LFTs Res ults for this ANTIBODY EST procedure are i n the results section. COMPLETE BLOOD COUNT AND Routine 07/26/2019 16:17 NAFLD (nonal coholic Results for this DIFFERENTIAL EST fatty liver procedure are i n disease) the results section. COMPREHENSIVE METABOLIC Routine 07/26/2019 16:17 NAFLD (nonalc oholic Results for this PANEL (CMP) EST fatty liver procedure are i n disease) the results section. documented in this encounter Results HEPATITIS A TOTAL ANTIBODY W REFLEX (07/26/2019 16:17 EST) Pathologist Sig nature Hepatitis A Antibody, Negative Negative [facility] Total LABORATORY SERVICES Specimen Blood - Venous blood (substance) Narrative [facility] LABOR[facility] SERVICES - 07/27/2019 14:54 EST The result of this assay can be falsely elevated (Positive) due to the consumption of Biotin. Performing Organization Address City/State/ZIP Code Phon e Number [facility] [address] [place] [address] SERVICES HEPATITIS B SURFACE ANTIBODY (07/26/2019 16:17 EST) Hep B Surface Ab, 203.5 See Note [facility] Quantitative Comment: mIU/mL [facility] Reference Range for Hep B Surface Ab, Quant: SERVICES Positive: >= 10.0 mIU/mL Negative: ??< 10.0 mIU/mL Patient is presumed to be immune to infection with Hep atitis B Virus. Hep B Surface Ab, Positive See Note [facility] Qualitative Comment: [facility] SERVICES Reference Range for Hep B Surface Ab, Qual: Unvaccinated: ??Negative Vaccinated: ??Positive Specimen Blood - Venous blood (substance) Performing Organization Address City/State/ZIP Code Phon e Number [facility] [address] [place] [address] SERVICES COMPLETE BLOOD COUNT AND DIFFERENTIAL (07/26/2019 16:17 EST) Pathologist Sig nature WBC 8.89 4.00 - 10.40 [facility] LABORATORY SERVICES RBC 5.12 4.36 - 5.78 [facility] LABORATORY SERVICES Hemoglobin 14.3 13.8 - 17.3 [facility] gm/dL LABORATORY SERVICES HCT 43.3 39.5 - 50.2 % [facility] LABOR[facility] SERVICES MCV 85 81 - 95 fl [facility] LABOR[facility] SERVICES MCH 27.9 27.6 - 33.0 pg [facility] LABORATORY SERVICES MCHC 33.0 32.8 - 36.4 [facility] gm/dL LABORATORY SERVICES RDW-CV 13.3 <14.2 % [facility] LABORATORY SERVICES RDW-SD 41.3 <46.0 fl [facility] LABORATORY SERVICES PLT 289 141 - 377 /[facility] LABORATORY SERVICES MPV 10.1 9.5 - 12.7 fl [facility] LABOR[facility] SERVICES Neutrophils 53.6 % [facility] SERVICES Lymphocytes 35.3 % [facility] Monocytes 8.5 % [facility] SERVICES Eosinophils 1.7 % [facility] SERVICES Basophils 0.7 % [facility] SERVICES Immature Grans 0.2 % [facility] SERVICES Absolute Neutrophils 4.76 2.20 - 8.85 [facility] LABORATORY SERVICES Absolute Lymphocytes 3.14 1.09 - 3.30 [facility] LABORATORY SERVICES Absolute Monocytes 0.76 0.10 - 0.80 [facility] K/cm LABORATORY SERVICES Absolute Eosinophils 0.15 0.03 - 0.61 [facility] K/[facility] LABORATORY SERVICES Absolute Basophils 0.06 0.01 - 0.11 [facility] K/[facility] LABORATORY SERVICES Absolute Immature 0.02 0.00 - 0.06 [facility] LABORATORY SERVICES Type of Differential: Auto [facility] SERVICES Specimen Blood - Venous blood (substance) Performing Organization Address [facility] Phon e Number [facility] [address] [place] [address] SERVICES (ABNORMAL) COMPREHENSIVE METABOLIC PANEL (CMP) (07/26/2019 16:17 EST) Sodium 139 136 - 145 [facility] mEq/L [place] [facility] Potassium 4.8 3.5 - 5.0 [facility] mEq/L [place] [facility] Chloride 99 96 - 110 [facility] mEq/L [place] [facility] CO2 Total 29 22 - 32 mEq/L [facility] SERVICES Glucose 135 (H) 70 - 100 [facility] mg/dL [place] [facility] BUN 17 10 - 26 mg/dL [facility] SERVICES Creatinine 1.04 0.66 - 1.25 [facility] mg/dL [place] [facility] SERVICES eGFR 76Comment: eGFR >60 [facility] calculated using mL/min/1.73m2 [place] [facility] CKD-EPI equation SERVICES for non- Americans. Multiply eGFR by 1.16 for patients. Total Protein 7.4 6.3 - 8.2 [facility] g/dL [place] [facility] Albumin 4.6 3.4 - 4.9 [facility] g/dL [place] [facility] Alkaline 82 38 - 126 U/L [facility] Phosphatase [facility] AST 40 15 - 46 U/L [facility] SERVICES ALT 55 (H) <50 U/L [facility] SERVICES Bilirubin, Total <0.5 <1.4 mg/dL [facility] SERVICES Calcium 9.7 8.5 - 10.5 [facility] mg/dL [place] [facility] Calculated Calcium 9.2 8.5 - 10.5 [facility] mg/dL [place] [facility] Specimen Blood - Venous blood (substance) Performing Organization Address City/[facility]/ZIP Code Phon e Number [facility] [address] [place] [address] SERVICES IGA (07/26/2019 16:17 EST) Pathologist Sig nature IgA 321 85 - 499 mg/dL [facility] LABORAT ORY SERVICES Specimen Blood - Venous blood (substance) Performing Organization Address [facility] Phon e Number [facility] [address] [place] [address] SERVICES TISSUE TRANSGLUTAMINASE AB (07/26/2019 16:17 EST) Tissue Transglutaminase <1.2 <4.0 U/mL [facility] Antibody IGA Comment: [facility] SERVICES A negative result may be due to IgA deficiency and does not rule out celiac disease. ? Negative: ? ?<4.0 U/mL ? Weak Positi ve: ??4.0 - 10.0 U/mL ? Positive: ? ?>10.0 U/mL Results were obtained with [employer] Lite R h-tTG IgA JAVED assay on the [employer] DSX. Specimen Blood - Venous blood (substance) Performing Organization Address [facility] Phon e Number [facility] [address] [place] [address] SERVICES documented in this encounter Visit Diagnoses Diagnosis Diarrhea, unspecified type NAFLD (nonalcoholic fatty liver disease) Other chronic nonalcoholic liver disease Elevated LFTs Other abnormal blood chemistry documented in this encounter Care Teams Accounts Adjustable Clerk Relationship Specialty Start Date End Date Denise Hooker, SEISMIC ENGINEER PCP - General 09/13/18 [address] [place], [place] [address] documented as of this encounter
--- OUTSIDE RECORDS SUMMARY | 2022-02-21 01:11 | XMS_ITS | Encounter Summary ---
:[address] [facility] Address [address] [place] [address] Care Team Providers Name Role Phone Denise Hooker APRN Primary Care Provider [phone] Encounter Details Date Type Department Care Team Description 08/25/2019 Phlebotomy Only [facility] 2 Bilingual Customer Service Specialist, Nico Merritt ss; Phlebotomy Phlebotomy Fasciculation [address] [place], [place] [id number] Social History Tobacco Use Types Packs/Day Years [...] Visit Gastroenterology and Shaq Phan, Hepatology 111 [facility], [facility] [address] [place] [address] (Wo rk) documented as of this encounter Procedures Procedure Name Priority Date/Time Associated Diagnosis Comme nts PARANEOPL AUTO Routine 08/25/2019 10:32 Weakness Results for this ANTIBODY, SERUM EST Fasciculation procedure a re in the results section. T4 FREE Routine 08/25/2019 10:32 Weakness Results for this EST Fasciculation procedure are in the results section. CK Routine 08/25/2019 10:32 Weakness Results for this EST Fasciculation procedure are in the results section. documented in this encounter Results T4 FREE (08/25/2019 10:32 EST) Pathologist Sig nature T4, Free 1.2 0.8 - 2.2 ng/dL [facility] LABORA TORY SERVICES Specimen Blood - Venous blood (substance) Performing Organization Address [facility] Code Phon e Number [facility] [address] [place] [address] SERVICES CK (08/25/2019 10:32 EST) Pathologist Sig nature CK 107 <=250 U/L [facility] LABORATOR Y SERVICES Specimen Blood - Venous blood (substance) Performing Organization Address [facility]/ZIP [facility] Phon e Number [facility] [address] [place] [address] SERVICES PARANEOPL AUTO ANTIBODY, SERUM (08/25/2019 10:32 EST) Interpretive SEE NOTE [facility] Comments Comment: LABORATORIES No informative autoantibodies were detected in the Paraneoplastic Evaluation. However, a negative result does not exclude neurological autoimmunity with or without associated neoplasia. Sensitivity and specificity of antibody testing are enhanced by testing both serum an d CSF. LEISA-1, S Negative <1:240 [facility] titer LABORATORIES Reflex Added None. [facility] Comment: LABORATORIES ADDITIONAL INFORMATION ------ This test was developed and its performance characteri stics determined by [facility] in a manner consistent with CLIA requirements. This test has not been cleared or approv ed by the U.S. Food and Drug Administration. LEISA-2, S Negative <1:240 [facility] Comment: titer LABORATORIES ADDITIONAL INFORMATION ------ This test was developed and its performance characteri stics determined by [facility] in a manner consistent with CLIA requirements. This test has not been cleared or approv ed by the U.S. Food and Drug Administration. LEISA-3, S Negative <1:240 [facility] Comment: titer LABORATORIES ADDITIONAL INFORMATION ------ This test was developed and its performance characteri stics determined by [facility] in a manner consistent with CLIA requirements. This test has not been cleared or approv ed by the U.S. Food and Drug Administration. AGNA-1, S Negative <1:240 [facility] Comment: titer LABORATORIES ADDITIONAL INFORMATION ------ This test was developed and its performance characteri stics determined by [facility] in a manner consistent with CLIA requirements. This test has not been cleared or approv ed by the U.S. Food and Drug Administration. EPIC ANALYST-1, S Negative <1:240 [facility] Comment: titer LABORATORIES ADDITIONAL INFORMATION ------ This test was developed and its performance characteri stics determined by [facility] in a manner consistent with CLIA requirements. This test has not been cleared or approv ed by the U.S. Food and Drug Administration. EPIC ANALYST-2, S Negative <1:240 [facility] Comment: titer [employer] ADDITIONAL INFORMATION ------ This test was developed and its performance characteri stics determined by [facility] in a manner consistent with CLIA requirements. This test has not been cleared or approv ed by the U.S. Food and Drug Administration. EPIC ANALYST-Tr, S Negative <1:240 [facility] Comment: titer [employer] ADDITIONAL INFORMATION ------ This test was developed and its performance characteri stics determined by [facility] in a manner consistent with CLIA requirements. This test has not been cleared or approv ed by the U.S. Food and Drug Administration. Amphiphysin Ab, S Negative <1:240 [facility] Comment: titer [employer] ADDITIONAL INFORMATION ------ This test was developed and its performance characteri stics determined by [facility] in a manner consistent with CLIA requirements. This test has not been cleared or approv ed by the U.S. Food and Drug Administration. CRMP-5-IgG, S Negative <1:240 [facility] Comment: titer [employer] ADDITIONAL INFORMATION ------ This test was developed and its performance characteri stics determined by [facility] in a manner consistent with CLIA requirements. This test has not been cleared or approv ed by the U.S. Food and Drug Administration. Striational Negative <1:120 [facility] (Striated Muscle) Comment: titer LABORATORIES Ab, S ADDITIONAL INFORMATION ------ This test was developed and its performance characteri stics determined by [facility] in a manner consistent with CLIA requirements. This test has not been cleared or approv ed by the U.S. Food and Drug Administration. Test Performed by: [facility] - [address] [address] Small Brake Form Operator: Chon Carrera M.D. Ph.D.; CLIA# [id number] P/Q-Type Calcium 0.00 <=0.02 [facility] Channel Ab Comment: nmol/Enersave ADDITIONAL INFORMATION ------ This test was developed and its performance characteri stics determined by [facility] in a manner consistent with CLIA requirements. This test has not been cleared or approv ed by the U.S. Food and Drug Administration. N-Type Calcium 0.00 <=0.03 [facility] Channel Ab Comment: [employer]/Enersave ADDITIONAL INFORMATION ------ This test was developed and its performance characteri stics determined by [facility] in a manner consistent with CLIA requirements. This test has not been cleared or approv ed by the U.S. Food and Drug Administration. AChR Ganglionic 0.00 <=0.02 [facility] Neuronal Ab, S Comment: nmol/[employer]ave ADDITIONAL INFORMATION ------ This test was developed and its performance characteri stics determined by [facility] in a manner consistent with CLIA requirements. This test has not been cleared or approv ed by the U.S. Food and Drug Administration. Neuronal (V-G) K+ 0.00 <=0.02 [facility] Channel Ab, S Comment: nmol/Enersave ADDITIONAL INFORMATION ------ This test was developed and its performance characteri stics determined by [facility] in a manner consistent with CLIA requirements. This test has not been cleared or approv ed by the U.S. Food and Drug Administration. Specimen Blood - Venous blood (substance) Performing Organization Address City/State/ZIP Code Phon e Number [facility] [address] [place] [address] documented in this encounter Visit Diagnoses Diagnosis Weakness Other malaise and fatigue Fasciculation Abnormal involuntary movements documented in this encounter Care Teams Safety And Health Manager Relationship Specialty Start Date End Date Denise Hooker APRN PCP - General 09/13/18 [address] [place] [address] documented as of this encounter
--- OUTSIDE RECORDS SUMMARY | 2022-02-21 01:11 | XMS_ITS | Encounter Summary ---
:1955 Author Organization [facility] Address [address] [place] [address] Care Team Providers Name Role Phone Denise Hooker APRN Primary Care Provider [phone] Reason for Referral Referral (Routine) - Receiving Office to Obtain Authorization Specialty Diagnoses / Referred By Contact Referred To Contact Procedures Gastroenterology and Diagnoses NAFLD (nonalcoholic fatty liver disease) Letty Mackey MD [facility] Procedures VIBRATION CONTROLLED TRANSIENT ELASTOGRAPHY (VCTE) [address], [facility] [id number] [place] [address], [address] [place], [place] Fax: [phone] Referral ID Status Reason Start Expiration Visits Visits Date Date Requested Authorized [id number] Receiving Office 07/26/2019 1 1 to Obtain Authorization Reason for Visit Reason Comments New Patient Visit Fatty Liver Consult (Routine) - Authorization Not Required Specialty Diagnoses / Referred By Referred To Cont act Procedures Contact Gastroenterology and Diagnoses Fatty liver Denise Hooker [facility] JENNIFER Easton [address] [place] [address] [address] [place], [place] [id number] [place] [address] Phone: Fax: [phone] Referral ID Status Reason Start Expiration Visits Visits Date Date Requested Authorized [id number] Authorization Not 1 1 Required Encounter Details Date Type Department Care Team Description 07/26/2019 Office Visit [facility] Narendra Letty Sandoval, NAFLD (nonalcoholic fatty liver disease) (Primary Dx); Gastroenterology - Main Elevated LFTs; [place] [address] [place] Diarrhea, unspecified type [address] [place], [place] [id number] [place] [address] Pavilion, [address] 5 [place] [id number] Social History Tobacco Use Types Packs/Day Years [...] Taken Comments Blood Pressure - - Pulse 80 07/26/2019 1453 EST Temperature - - Respiratory Rate - - Oxygen Saturation - - Inhaled Oxygen Concentration - - Weight 106.6 kg (235 lb) 07/26/2019 1453 EST Height 176.5 cm (5' 9.5) 07/26/2019 1453 EST Body Mass Index 34.21 07/26/2019 1453 EST documented in this encounter Functional Status [...] encounter Progress Notes Tej Garcia MD - 07/26/2019 1500 EST [facility] Gastroenterology and Hepatology Consult Note: Referring Provider: Reason for Consult: fatty liver HPI: Raul Trujillo is 63 y.o. here for evaluation of fatty liver disease. The patient was first diagnosed with fatty liver based on imaging 15-20 years ago. This imaging was prompted by elevated LFTs. He was referred to see GI when a RUQ ultrasound in March 2019 showed fatty liver. Denies any jaundice, no scleral icterus. No abdominal distension, no ascites. He reports intermittent swelling in his legs which he thinks is related to prolonged standing. No issues with confusion or encephalopathy. His weight has been relatively stable over the past year (230lb to 235lb over the past year objectively).The patient does not have a known history of liver disease and denies a family history of liver disease. Patient is a former smoker (2ppd for 25 years, quit smoking ~26 years ago). No IV or intranasal drug use. 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 History of DM: yes BMI: 34.21 Alcohol use: rare (twice a year) History of HLD: yes History of HTN: yes Liver imaging: yes (fatty liver on RUQ US in March 2019) History of liver biopsy: no Colonoscopy: 4-5 years ago ([facility]). Noted diverticula. Some polyps removed (patient unsure ofhistology). He was having some rectal bleeding at the time which prompted the colonoscopy. Patient reports many years of abdominal bloating, diarrhea, excessive flatulence, and burning non-radiating right-sided abdominal pain. Diarrhea is described as loose or watery stools (depending on theday) occurring 3-4 times a day. Diarrhea tends to be post-prandial (within 30-60 minutes of eating) and associated with a great deal of urgency. He has some blood with bowel movements after the 2nd or 3rd bowel movement. He finds symptoms are exacerbated by eggs and salads. Dairy does not seem to worsen his symptoms. No nocturnal bowel movements. He has seen a chiropracter which helps. He also takes loperamide if he is eating out and that seems to help as well. Weight stable. He uses well water for drinking. Past medical history: Past Medical History: Diagnosis Date ??? CAD (coronary artery disease) 09-10-09 PCI LAD prox MARY, LAD mid MARY, LAD distal BMS; 09-07-09 PCI MARY X 3 RCA; 2004 stents X2 ??? Diabetes mellitus ([facility]) oral agents ??? Diverticulitis ??? Hyperlipidemia ??? Hypertension ??? [place] (myocardial infarction) ([facility]) 1992, 2003 ??? Recurrent infections [...] facility-administered medications for this visit. Review of systems: Constitutional: no fevers, no weight loss, no fatigue HEENT: no change in vision Skin: no rashes CV: no chest pain Pulm: no shortness of breath GI: as per HPI Extremities: no LE edema : no burning or pain with urination Neuro: no weakness Psych: no depression, no anxiety Endocrine: no chills Physical Exam: VS: Pulse 80 Ht 176.5 cm (69.5) Wt (!) 106.6 kg (235 lb) BMI 34.21 kg/m?? General: NAD. Obese HEENT: no scleral icterus CV: RRR, normal S1, S2. +murmur heard best over left 2nd intercostal space Lungs: CTA b/l, no wheezes/crackles Abdomen: soft, non tender, non distended, no hepatomegaly, no splenomegaly Extremities: no LE edema Neuro: grossly intact [...] obstruction. Assessment and Plan: Raul Trujillo is 63 y.o. with a history of DM2, HTN, dyslipidemia, and CAD who was referred to GI for fatty liver. Had a long discussion today with the patient about non alcoholic fatty liver disease (NAFLD). Explained that fatty liver is quite common in today's population and that it simply means that there is fat in the liver (simple steatosis), and that it is most often associated with features of the metabolic syndrome, specifically, diabetes, hypertension, hyperlipidemia, and obesity. In most people, there are no tank terminal gauger liver effects from underlying fatty liver, but in a small subset of patients fat in the liver can lead to inflammation of the liver (steatohepatitis). Over time, this infla mmation in the liver can lead to scarring of the liver and ultimately cirrhosis, or end stage liver disease. Some patients with fatty liver related cirrhosis will go onto liver transplantation. While liver biopsy is the best way to understand the extent of liver scarring from underlying fatty liver disease, other non-invasive measures of fibrosis, such as Fibroscan, can also be useful tools. There are no great medication options for the treatment of fatty liver at this time, and the currentmainstay of treatment revolves around weight loss, as data suggests that losing 3-5% of body weight can improve fat (steatosis) and 7-10% body weight reduction can lead improvement in inflammation and scarring. Improving glucose control, high blood pressure, and lipid levels have also shown benefit. There are numerous fatty liver clinically trials that are currently underway that could also be considered as a part of the treatment plan. His diarrhea and abdominal pain are likely functional given his reported negative colonoscopy, though it would be prudent to evaluate for celiac disease and Giardia. - emphasized the importance of diet, exercise, and weight loss with goal weight reduction of 5-10% of body weight - CBC, CMP ordered today - Hep B surface Ab and HepA IgG ordered - plan for non-invasive measure of fibrosis with Fibroscan - if advanced fibrosis noted, will need to discuss the role of hepatocellular cancer screening - emphasized the importance of controlling other fatty liver risk factors - will defer management of HLD, DM, HTN to patient's PCP - statins are ok to use in patients with underlying fatty liver (would avoid statins in only those with decompensated cirrhosis) - IgA and TTG ordered - Giardia antigen ordered - Can continue loperamide as needed for diarrhea - RTC in 3 months Tej Garcia MD Gastroenterology and Hepatology Fellow GI Attending Addendum: Patient seen and examined with the resident/fellow. Reviewed and agree with findings and plan of care documented in fellow note. In brief, Raul Trujillo is a 63 y.o. male with history of DM, HTN, HLD,found to have fatty liver on imaging. Also with IBS like symptoms- bloating, diarrhea, has had normal colonoscopy in the past, per patient. On exam, pleasant, NAD, MMM, RRR, CTA, soft, NT, ND, no ascites, no LE edema, no stigmata of chronic liver disease Had a long discussion about the natural history of fatty liver with the patient- encouraged diet, exercise, weight loss and controlling fatty liver risk factors. Will plan for Fibroscan for non-invasive measure of fibrosis. Will ensure patient immune to HAV, HBV. In terms of GI symptoms, will check for celiac. Plan to rule out Giardia, as well, given risk factor of well water. Plan for follow up withme in 3 months, or sooner if needed. Letty Mackey MD Gastroenterology and Hepatology [facility] documented in this encounter Plan of Treatment Upcoming Encounters Date Type Specialty Care Team Description 09/29/2022 Office Visit Gastroenterology and Shaq Phan, Hepatology [address] [place] [address], [facility], [address] [place] [address] (Wo rk) documented as of this encounter Results VIBRATION CONTROLLED TRANSIENT ELASTOGRAPHY (VCTE) (08/31/2019 14:30 EST) Narrative POINT OF CARE [facility] - 08/31/2019 14:30 E Shaq Holcomb MD ? 08/31/2019 14:19 [facility] Hepatology Fibrosis A ssessment Patient: Raul Trujillo 1 : 1955 Candy Spreader: ??Shaq Phan MD Referring Physician: Denise MEIER, Letty Mackey MD Disease diagnosis: fatty liver Procedure: Vibration Controlled Transien t Elastography (VCTE) or Fibroscan [place] Protocol: Patient's identity, procedure and site were verified, confirmatory pause performed. Discussed procedure including risks and potential complicati ons. Questions answered. Patient verbalizes understanding and wis hes to proceed with Fibroscan assessment. Patient was placed in the supine positio n with right arm in maximum abduction to allow optimal expos ure of right lateral abdomen. Patient was briefly assessed. T esting was performed in the mid-axillary location. 50Hz Shear Wa ve pulses were applied and the resulting Shear Wave and Propaga tion Speed was detected with a 3.5MHz ultrasonic signal, using t he Fibroscan XL probe. Skin to liver capsule distance and liver parenchyma were accessed during the entire examination with the F ibroscan probe. Patient was instructed to breathe normally and a bstain from sudden movements during the procedure. At least ten Shear Waves were produced; individual measurements of eac h Shear Wave were calculated. Patient tolerated the proced ure well with no complications. Fibroscan Results: Median kPa: 12.6 IQR kPa: 2.2 Fractional IQR: 17% (goal is <30%) Success rate: 77% (goal is >60%) Predicted fibrosis stage: F3 Interpretation: Raul Trujillo is a 63 y.o. male with fa tty liver. 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: Advanced hepatic fibrosis (F3) Shaq Phan MD Cc: MD Denise Hoskins APRN [address] / [facility] [address] Performing Organization Address City/State/ZIP Code Phon e Number [facility] POINT [facility]ARE POINT OF CARE [facility] HEPATITIS A TOTAL ANTIBODY W REFLEX (07/26/2019 16:17 EST) Pathologist Sig nature Hepatitis A Antibody, Negative Negative [facility] Total [facility]OR[facility] Specimen Blood - Venous blood (substance) Narrative [facility] - 07/27/2019 14:54 EST The result of this assay can be falsely elevated (Positive) due to the consumption of Biotin. Performing Organization Address City/[facility]/ZIP Code Phon e Number [facility] [address] [place] [address] SERVICES HEPATITIS B SURFACE ANTIBODY (07/26/2019 16:17 EST) Hep B Surface Ab, 203.5 See Note [facility] Quantitative Comment: mIU/mL [facility] Reference Range for Hep B Surface Ab, Quant: SERVICES Positive: >= 10.0 mIU/mL Negative: ??< 10.0 mIU/mL Patient is presumed to be immune to infection with Hep atitis B Virus. Hep B Surface Ab, Positive See Note [facility] Qualitative Comment: [facility] Reference Range for Hep B Surface Ab, Qual: Unvaccinated: ??Negative Vaccinated: ??Positive Specimen Blood - Venous blood (substance) Performing Organization Address [facility] Phon e Number [facility] [address] [place] [address] SERVICES COMPLETE BLOOD COUNT AND DIFFERENTIAL (07/26/2019 16:17 EST) Pathologist Sig nature WBC 8.89 4.00 - 10.40 [facility] K/[facility] LABORATORY SERVICES RBC 5.12 4.36 - 5.78 [facility] M/[facility] LABORATORY SERVICES Hemoglobin 14.3 13.8 - 17.3 [facility] gm/dL LABORATORY SERVICES HCT 43.3 39.5 - 50.2 % [facility] MCV 85 81 - 95 fl [facility] MCH 27.9 27.6 - 33.0 pg [facility] MCHC 33.0 32.8 - 36.4 [facility] gm/dL LABORATORY SERVICES RDW-CV 13.3 <14.2 % [facility] RDW-SD 41.3 <46.0 fl [facility] PLT 289 141 - 377 K/[facility] LABORATORY SERVICES MPV 10.1 9.5 - 12.7 fl [facility] Neutrophils 53.6 % [facility] Lymphocytes 35.3 % [facility] Monocytes 8.5 % [facility] Eosinophils 1.7 % [facility] Basophils 0.7 % [facility] Immature Grans 0.2 % [facility] Absolute Neutrophils 4.76 2.20 - 8.85 [facility] LABORATORY SERVICES Absolute Lymphocytes 3.14 1.09 - 3.30 [facility] LABORATORY SERVICES Absolute Monocytes 0.76 0.10 - 0.80 [facility]ATORY SERVICES Absolute Eosinophils 0.15 0.03 - 0.61 [facility] SERVICES Absolute Basophils 0.06 0.01 - 0.11 [facility]ORY SERVICES Absolute Immature 0.02 0.00 - 0.06 [facility] LABORATORY SERVICES Type of Differential: Auto [facility] Specimen Blood - Venous blood (substance) Performing Organization Address City/State/ZIP Code Phon e Number [facility] [address] [place] [address] SERVICES (ABNORMAL) COMPREHENSIVE METABOLIC PANEL (CMP) (07/26/2019 16:17 EST) Sodium 139 136 - 145 [facility] mEq/L [facility] Potassium 4.8 3.5 - 5.0 [facility] mEq/L [facility] Chloride 99 96 - 110 [facility] mEq/L [facility] CO2 Total 29 22 - 32 mEq/L [facility] Glucose 135 (H) 70 - 100 [facility] mg/dL [facility] BUN 17 10 - 26 mg/dL [facility] Creatinine 1.04 0.66 - 1.25 [facility] mg/dL [facility] eGFR 76Comment: eGFR >60 [facility] calculated using mL/min/1.73m2 [facility] CKD-EPI equation SERVICES for non- Americans. Multiply eGFR by 1.16 for patients. Total Protein 7.4 6.3 - 8.2 [facility] g/dL [facility] Albumin 4.6 3.4 - 4.9 [facility] g/dL [facility] Alkaline 82 38 - 126 U/L [facility] Phosphatase [facility] AST 40 15 - 46 U/L [facility] ALT 55 (H) <50 U/L [facility] Bilirubin, Total <0.5 <1.4 mg/dL [facility] Calcium 9.7 8.5 - 10.5 [facility] mg/dL [facility] Calculated Calcium 9.2 8.5 - 10.5 [facility] mg/dL [facility] Specimen Blood - Venous blood (substance) Performing Organization Address [facility]/ZIP Code Phon e Number [facility] [address] [place] [address] SERVICES IGA (07/26/2019 16:17 EST) Pathologist Sig nature IgA 321 85 - 499 mg/dL [facility] SERVICES Specimen Blood - Venous blood (substance) Performing Organization Address [facility] Phon e Number [facility] [address] [place] [address] SERVICES TISSUE TRANSGLUTAMINASE AB (07/26/2019 16:17 EST) Tissue Transglutaminase <1.2 <4.0 U/mL [facility] Antibody IGA Comment: [facility] A negative result may be due to IgA deficiency and does not rule out celiac disease. ? Negative: ? ?<4.0 U/mL ? Weak Positi ve: ??4.0 - 10.0 U/mL ? Positive: ? ?>10.0 U/mL Results were obtained with sawyer Sh[employer] NEMOPTICe R h-tTG IgA JAVED assay on the [email or web address] DSX. Specimen Blood - Venous blood (substance) Performing Organization Address [facility] Phon e Number [facility] [address] [place] [address] SERVICES documented in this encounter Visit Diagnoses Diagnosis NAFLD (nonalcoholic fatty liver disease) - Primary Other chronic nonalcoholic liver disease Elevated LFTs Other abnormal blood chemistry Diarrhea, unspecified type documented in this encounter Care Teams Safety Lamp Keeper Relationship Specialty Start Date End Date Denise Hooker APRN PCP - General 09/13/18 [address] [place], [place] [id number] documented as of this encounter
--- OUTSIDE RECORDS SUMMARY | 2022-02-21 01:11 | XMS_ITS | Encounter Summary ---
:1955 Author Organization [facility] Address [address] [place] [address] Care Team Providers Name Role Phone Denise Hooker APRN Primary Care Provider [phone] Reason for Visit Reason Comments Coronary Artery Disease Encounter Details Date Type Department Care Team Description 01/26/2020 Office Visit [facility] Broderick Galloway ASCVD (arteriosclerotic Cardiology - Jenelle Ansari MD cardiovascular disease) 62 Jenelle Teixeira [address] [place] [address] Dirk (Primary Dx) [place], [place] [address] [place] [address] [place] [address] Social History Tobacco Use Types Packs/Day Years [...] Sign Reading Time Taken Comments Blood Pressure 122/62 01/26/2020 1149 EDT Pulse 74 01/26/2020 1149 EDT Temperature - - Respiratory Rate - - Oxygen Saturation 97% 01/26/2020 1149 EDT Inhaled Oxygen Concentration - - Weight 103.9 kg (229 lb) 01/26/2020 1149 EDT Height 176.5 cm (5' 9.5) 01/26/2020 1149 EDT Body Mass Index 33.33 01/26/2020 1149 EDT documented in this encounter Functional Status [...] documented as of this encounter Progress Notes Broderick Galloway MD - 01/26/2020 1150 EDT Subjective: Patient is a 64 y.o. male who presents for follow-up of CAD. Patient reports a couple of episodes ofchest pain requiring ntg, but overall doing well. He denies chest pain on exertion and dyspnea on exertion. He describes his symptoms as not changed. rod Gomez prinmarily by back and leg pain better post chropractic appt He has been compliant with his medications. Medications side effects include none Past Medical History: Diagnosis Date ??? CAD (coronary artery disease) 09-10-09 PCI LAD prox MARY, LAD mid MARY, LAD distal BMS; 09-07-09 PCI MARY X 3 RCA; 2003 stents X2 ??? Diabetes mellitus ([facility]) oral agents ??? Diverticulitis ??? Hyperlipidemia ??? Hypertension ??? [place] (myocardial infarction) ([facility]) 1992, 2003 ??? Recurrent infections rt foot 5th toe Patient Active Problem List Diagnosis Date Noted ??? Chest pain 12/03/2018 Priority: Medium ??? Depression 12/03/2018 Priority: Medium ??? Coronary atherosclerosis 09/07/2009 ??? Hyperlipidemia with target LDL less than 70 09/07/2009 ??? Hypertensive disorder 09/07/2009 ??? Diabetes mellitus ([facility]) 09/07/2009 Current Outpatient Medications Medication Sig Dispense Refill [...] insulin glargine (LANTUS) 100 unit/mL injection Inject 25 Units into the skin 2 times daily. ??? lisinopril (PRINIVIL, ZESTRIL) 5 mg tablet Take 5 mg by mouth daily. ??? LORazepam (ATIVAN) 2 mg tablet 2mg 30 minutes prior to MRI. (Patient not taking: Reported on 07/26/2019) 1 Tab 0 ??? metFORMIN (GLUCOPHAGE) 1,000 mg tablet Take [...] listed above, all others are negative. Objective: BP 122/62 (BP Cuff Location: Right arm, BP Patient Position: Sitting, BP Cuff Sizes: Adult, regular) Pulse 74 Ht 176.5 cm (69.5) Wt (!) 103.9 kg (229 lb) SpO2 97% BMI 33.33 kg/m?? Body mass index is 33.33 kg/m??. Physical Exam: General: Alert, cooperative, no distress, appears stated age. Eyes: Conjunctivae not injected, not pale, nonicteric. Ears: Hearing grossly intact. Neck: Trachea midline, no adenopathy, no thyromegaly. Carotid upstroke normal, no carotid bruit and no JVD. Lungs: Clear to auscultation bilaterally. Chest wall: No tenderness or deformity. Heart: Regular heart sounds, S1, S2 normal, no murmur or rub heard. Normal apical impulse. Abdomen: Soft, non-tender to palpation. No masses felt, No organomegaly. No bruits heard. Extremities: No peripheral edema. No cyanosis. Pulses: Radial pulses 2+ bilaterally. Dorsalis pedis and tibialis posterior 2+ bilaterally. Skin: No pallor, rashes or lesions. Lymph nodes: Cervical, supraclavicular, and axillary nodes normal. Neurologic: Normal strength, nonfocal on exam. Lab Review: Lab Results Component Value Date CHOL 137 02/11/2016 TRIG 187 02/11/2016 HDL 40 02/11/2016 LDLBASE 60 02/11/2016 Assessment: Raul Trujillo is a 64 y.o. year old male who presents with cad stable Plan: RTC 1 year documented in this encounter Plan of Treatment Upcoming Encounters Date Type Specialty Care Team Description 09/29/2022 Office Visit Gastroenterology and Shaq Phan, Hepatology [address] [facility], [address] [place] [address] (Wo rk) documented as of this encounter Visit Diagnoses Diagnosis ASCVD (arteriosclerotic cardiovascular d isease) - Primary Unspecified cardiovascular disease documented in this encounter Care Teams Toll Settlement Clerk Relationship Specialty Start Date End Date Denise Hooker APRN PCP - General 09/13/18 [address] [place] [address] documented as of this encounter
--- OUTSIDE RECORDS SUMMARY | 2022-02-21 01:11 | XMS_ITS | Encounter Summary ---
:1955 Author Organization [facility] Address [address] [place] [address] Care Team Providers Name Role Phone Denise Hooker APRN Primary Care Provider [phone] Encounter Details Date Type Department Care Team Description 08/25/2019 Lab Requisition [facility] Unknown, Provider, Pathology & Laboratory [facility] [address] [facility] [place] [address] Social History Tobacco Use Types Packs/Day Years [...] Visit Gastroenterology and Shaq Phan, Hepatology [address] [facility], [facility] [address] [place] [address] (Wo rk) documented as of this encounter Procedures Procedure Name Priority Date/Time Associated Diagnosis Comme nts OVA/PARASITE EXAM Routine 08/24/2019 6:15 EST Res ults for this procedure are i n the results section. documented in this encounter Results OVA/PARASITE EXAM (08/24/2019 6:15 EST) Pathologist Sig nature Parasite No ova and parasites [facility] seen. LABORATORY SERVICES Specimen Feces - Specimen from rectum (specimen) Narrative [facility] LABOR[facility]ORY SERVICES - 08/26/2019 11:31 EST (If Cryptosporidium, Cyclospora, or Micr osporidium are suspected, specific tests must be requested.) Single negative specimen does not rule out the possibility of a parasitic infection. Performing Organization Address City/State/ZIP Code Phon e Number [facility]OR[facility]ORY [address] [place] [address] SERVICES documented in this encounter Visit Diagnoses Not on filedocumented in this encounter Care Teams [employer] Supervisor Relationship Specialty Start Date End Date Denise Hooker APRN PCP - General 09/13/18 [address] [place] [address] documented as of this encounter
--- OUTSIDE RECORDS SUMMARY | 2022-02-21 01:11 | XMS_ITS | Encounter Summary ---
:1955 Author Organization [facility] Address [address] [place] [address] Care Team Providers Name Role Phone Denise Hooker APRN Primary Care Provider [phone] Reason for Visit Reason Onset Date Comments Results 09/02/2019 Encounter Details Date Type Department Care Team Description 09/02/2019 Telephone [facility] Letty Mackey MD Results Gastroenterology - Main [address] [facility], [facility] [address] [facility], [address] [place], [place] [id number] [place] [address] [phone] (Wo rk) Social History Tobacco Use [...] Telephone Encounter - Letty Mackey MD - 09/02/2019 1151 EST Called the patient to review the results of his recent Fibroscan- explained that findings were 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 We discussed the implications of this findings, in particular, the risk of developing hepatocellular carcinoma in the setting of advanced fibrosis. We discussed the role of imaging for HCC screening every 6-12 months in the setting of being F3. We discussed the continued importance of diet, exercise, and weight loss, as well. The patient has noted ongoing abdominal pain- was started on PPI by his PCP, planning on making an appointment to see them, as well. Suggested he get H. Pylori testing done, if not already done. Celiactesting done at time of initial consult was negative. Asked him to keep me posted. The patient has follow up to see me in three months- asked him to call if he wanted to get seen sooner. Letty Mackey MD Gastroenterology and Hepatology [facility] documented in this encounter Plan of Treatment Upcoming Encounters Date Type Specialty Care Team Description 09/29/2022 Office Visit Gastroenterology and Shaq Phan, Hepatology [address] [facility], [facility] [address] [place] [address] (Wo rk) documented as of this encounter Visit Diagnoses Not on filedocumented in this encounter Care Teams Endorsement Clerk Relationship Specialty Start Date End Date Denise Hooker APRN PCP - General 09/13/18 [address] [place] [address] documented as of this encounter
--- OUTSIDE RECORDS SUMMARY | 2022-02-21 01:11 | XMS_ITS | Encounter Summary ---
:1955 Author Organization [facility] Address [address] [place] [address] Care Team Providers Name Role Phone Denise Hooker APRN Primary Care Provider [phone] Reason for Visit Reason Onset Date Comments Diagnostic Imaging Report 06/27/2019 Report from Mary mackey Encounter Details Date Type Department Care Team Description 06/27/2019 Telephone [facility] Ken Bran Diagnos tic Imaging Neurology - S Prospe ct MD Kenan Report (Report from 1 [facility] 1 [facility]) [address] [phone] [facility] [address] [place] [address] (Wo rk) Social History Tobacco [...] this encounter Miscellaneous Notes Telephone Encounter - Deep Horner MA - 06/27/2019 0918 EST Jason sent MRI report Spinal lumbar without Contrast. It is in Dr. Bran's mailbox. Called Jason to push images as they are not yet in horizon. documented in this encounter Plan of Treatment Upcoming Encounters Date Type Specialty Care Team Description 09/29/2022 Office Visit Gastroenterology and Shaq Phan, Hepatology [address] [facility], [facility], [address] [place] [address] (Wo rk) documented as of this encounter Visit Diagnoses Not on filedocumented in this encounter Care Teams Medicine Technologist Relationship Specialty Start Date End Date Denise Hooker APRN PCP - General 09/13/18 [address] [place] [address] documented as of this encounter
--- OUTSIDE RECORDS SUMMARY | 2022-02-21 01:11 | XMS_ITS | Encounter Summary ---
:1955 Author Organization [facility] Address [address] [place] [address] Care Team Providers Name Role Phone Denise Hooker APRN Primary Care Provider Encounter Details Date Type Department Care Team Description 08/25/2019 Lab Requisition [facility] Unknown, Provider, Pathology & Laboratory [facility] [address] [facility] [place] [address] Social History Tobacco Use Types Packs/Day Years [...] Visit Gastroenterology and Shaq Phan, Hepatology [address] [facility], [facility] [address] [place] [address] (Wo rk) documented as of this encounter Procedures Procedure Name Priority Date/Time Associated Diagnosis Comme nts FECAL BACTERIAL Routine 08/24/2019 6:15 EST Resul ts for this PATHOGENS BY PCR procedure a re in the results section. documented in this encounter Results FECAL BACTERIAL PATHOGENS BY PCR (08/24/2019 6:15 EST) Pathologist Sig nature Salmonella PCR Negative Negative [facility] SERVICES Shigella/Enteroinvasive Negative Negative [facility] E. coli LABOR[facility]ORY SERVICES HN LAB CAMPYLOBACTER PCR Negative Negative [facility] ER LABORATORY SERVICES Shiga Toxin PCR Negative Negative [facility] SERVICES Specimen Feces - Specimen from rectum (specimen) Performing Organization Address City/State/ZIP Code Phon e Number [facility] [address] [place] [address] SERVICES documented in this encounter Visit Diagnoses Not on filedocumented in this encounter Care Teams [place] Relationship Specialty Start Date End Date Denise Hooker APRN PCP - General 09/13/18 [address] [place] [address] documented as of this encounter
--- OUTSIDE RECORDS SUMMARY | 2022-02-21 01:11 | XMS_ITS | Encounter Summary ---
:1955 Author Organization [facility] Address [address] [place] [address] Care Team Providers Name Role Phone Denise Hooker APRN Primary Care Provider [phone] Reason for Referral Cardiology (Routine/Next Available) - Closed Specialty Diagnoses / Procedures Referred By Contact Refer red To Contact Cardiology Diagnoses Ventricular tachycardia (HCC-CMS) ([facility]) Jeison Pickett DO [facility] Procedures CARDIAC EVENT MONITOR [address] [place] [address] [place] [address] [place] [address] Fax: Referral ID Status Reason Start Date Expiration Date Visits Requ ested Visits Authorized [id number] Closed 03/22/2020 1 1 Reason for Visit Auth/Cert Specialty Diagnoses / Procedures Referred By Contact Refer red To Contact Diagnoses NSTEMI (non-ST elevated myocardial infarction) (HCC-CMS) ([facility]) NSTEMI Referral ID Status Reason Start Date Expiration Date Visits Requ ested Visits Authorized [id number] 1 1 Encounter Details Date Type Department Care Team Description 03/18/2020 - Hospital [facility] Medical CruzAsh MD [address] [facility], Level [address] [place] [address] Ventricular tachycardia (HCC-CMS) (Prima ry Dx); 03/22/2020 Encounter Center Cardiac Robinson Lan Sa, MD [address] [facility], [place], Level 1 [place] [id number] Essential hypertension; Unit Shantell Manuel MD [address] [place] [address] NSTEMI (non-ST elevated myocardial infar ction) ([facility]); [address] [place] Type 2 diabet es mellitus with vascular disease ([facility]); Ave NSVT (nonsustained ventricul ar tachycardia) ([facility]); [place], [place] Atheroscleros is of coronary artery without angina pectoris, unspecified vessel or lesion type, unspecified whether [place] or transplanted heart; [id number] Other specified disorders of arteries and arterioles ([facility]); [phone] Stenosis of cor onary stent, initial encounter; Old myocardial infarction; Hyperlipidemia with target LDL less than 70; Insulin-requiri ng or dependent type II diabetes mellitus ([facility]); Family history of ischemic heart disease Social History Tobacco Use Types Packs/Day Years [...] Sign Reading Time Taken Comments Blood Pressure 116/62 03/22/2020 1258 EDT Pulse - - Temperature 36.4 ??C (97.5 ??F) 03/22/2020 1258 EDT Respiratory Rate 18 03/22/2020 0922 EDT Oxygen Saturation 97% 03/22/2020 1258 EDT Inhaled Oxygen Concentration - - Weight 103 kg (227 lb) 03/19/2020 1359 EDT Height 175.3 cm (5' 9) 03/19/2020 [...] or older) documented as of this encounter Discharge Summaries Shantell Manuel MD - 03/21/2020 1442 EDT Cardiology Discharge Summary Primary Care Provider: Denise Hooker Attending Physician: No att. providers found Admit Date: 03/18/2020 Discharge Date: 03/22/20 Disposition: Home or self care Problems and Procedures Admitting Diagnosis: Ventricular tachycardia ([facility]) Final Hospital Diagnosis: NSTEMI, nonsustained ventricular tachycardia Additional Problems Managed in the Hospital Active Hospital Problems Diagnosis Date Noted ??? Type 2 diabetes mellitus with vascular disease ([facility]) 03/19/2020 ??? NSVT (nonsustained ventricular tachycardia) ([facility]) 03/19/2020 ??? Hypertensive disorder 09/07/2009 ??? Diabetes mellitus ([facility]) 09/07/2009 Oral agent - metformin Resolved Hospital Problems Diagnosis Date Noted Date Resolved ??? *NSTEMI (non-ST elevated myocardial infarction) ([facility]) 03/19/2020 03/22/2020 Principal Procedure: Left heart catheterization Date: 03/19/20 Secondary Procedures: Not applicable Hospital Course Claudia Batista is a 64-year-old man with a history of CAD (PA x2, stents x9), HTN, and HLD who was transferred from [facility] on 03/19 for management of NSTEMI. Left heart catheterization was performed and confirmed patent stents and mild coronary artery disease unchanged from prior. He was managed medically with Isordil 5 mg TID, which he tolerated well, in addition to his PATIENT OBSERVER amlodipine, lisinopril, and metoprolol. This was subsequently changed to Imdur 15 mg qd, to be continued at discharge. His troponin peaked at 0.214 at the time of admission, and his symptoms had resolved by the morning of hospital day #2. On hospital day #1 he was noted to have runs of asymptomatic NSVT on telemetry. EP was consulted suman cardiac MRI was performed, which showed a small subendocardial infarction involving the basilar inferior wall of the left ventricle, and mildly reduced left ventricular ejection fraction of 50%. He did not have recurrence of his arrhythmia during his hospitalization, and was discharged with a plan for a 30-day live feed event monitor and outpatient follow-up with EP. Allergies and Immunizations Allergies Allergen Reactions ??? Imdur [Isosorbide Mononitrate] Severe headache ??? Indoramin Headaches There is no immunization history on file for this patient. Transition of Care Plans Condition at Discharge Improved Assessment at Discharge Vital signs: Patient Vitals for the past 12 hrs: BP Heart Rate Resp Temp SpO2 O2 Device 03/22/20 1258 116/62 78 BPM ??? 36.4 ??C (97.5 ??F) 97 % ??? 03/22/20 0922 123/68 77 BPM 18 36 ??C (96.8 ??F) 96 % None Pain management with last dose of pain med: 0 Activities of daily living level: Fully independent Is the patient being discharged with a diagnosis of Systolic Heart Failure? No Coumadin Management N/A Non-Cardiac Studies at Time of Discharge none Results Pending at Discharge Test results still pending from this admission None Last Lab Results at Discharge Creatinine: Lab Results Component Value Date CREATININE 0.71 03/21/2020 CBC: Lab Results Component Value Date WBC 6.44 03/21/2020 RBC 5.16 03/21/2020 HGB 14.4 03/21/2020 HCT 43.1 03/21/2020 MCV 84 03/21/2020 MCH 27.9 03/21/2020 MCHC 33.4 03/21/2020 PLT 223 03/21/2020 DIFFTYPE Auto 07/26/2019 Electrolytes: Lab Results Component Value Date NA 141 03/21/2020 K 4.7 03/21/2020 CL 100 03/21/2020 CO2 28 03/21/2020 Lab Results Component Value Date HGBA1C 7.4 (H) 03/19/2020 Discharge Follow Up Upcoming Appointments Apr 17, 2020 13:00 Office Visit with Letty Mackey MD [facility] (--) [address] [place] [address] Follow-up appointments and procedures Amb Consult/Follow Up Cardiac Electrophysiology Reason for Request: event monitor and ventricular tachycardia, recent hospital discharge Authorizing Provider: Jeison Pickett DO Follow-up labs and tests Cardiac event monitor Complete by: Mar 22, 2020 (Approximate) Comments: 30 day event monitor Live feed Authorizing Provider: Jeison Pickett DO Appointments We Recommend but have not been Scheduled none LASHON THORNE MD 03/22/2020 17:42 STAFF ATTESTATION: I, Shantell Manuel MD, have seen and examined this patient on the day of discharge 03/22/2020. I have reviewed and edited the details outlined by my colleague, Dr. Thorne, in this note as needed and have put blanton changes. I would add the following blanton elements of the patient's history, physical exam and plan after my personal evaluation. As noted, presenting with NSTEMI, coronary angiogram with no significant change from prior. Noted tohave runs of [place] on telemetry. CMR as above. EP consult and plan for now to discharge home with an event monitor and follow-up with EP as outpatient. More than 30 minutes spent discharging the patient and discussing the findings of those lab results with him and his bedside. As well as highlighting the follow-up plan after discharge Shantell Manuel MD 03/22/2020 18:03 documented in this encounter Medications at Time of Discharge Medication Sig Dispensed Refills Start Date End Date amlodipine (NORVASC) 10 mg Take 1 Tab by mouth 30 Tab 11 09/10/2009 tablet daily. aspirin chewable 81 mg Take 1 Tab by mouth 30 Tab 11 01/18 tablet daily. dapagliflozin (FARXIGA) 5 Take 5 mg by mouth 0 mg tablet daily. ERGOCALCIFEROL, VITAMIN Take by mouth daily 0 D2, (VITAMIN D ORAL) exenatide microspheres Inject 2 mg into 0 (BYDUREON) 2 mg/0.65 mL the skin every 7 pen injector days. insulin glargine (LANTUS) Inject 30 Units 0 100 unit/mL injection into the skin 2 times daily. lisinopril (PRINIVIL, Take 5 mg by mouth 0 ZESTRIL) 5 mg tablet daily. metFORMIN (GLUCOPHAGE) Take 1,000 mg by 0 1,000 mg tablet mouth 2 times daily. METOPROLOL SUCCINATE ORAL Take 150 mg by 0 mouth daily. Takes 3-50 mg. Tablets daily nitroGLYCERIN (NITROSTAT) Place 0.4 mg under 0 0.4 mg SL tablet the tongue as needed for Chest Pain. rosuvastatin (CRESTOR) 40 Take 40 mg by mouth 0 mg tablet daily. sertraline (ZOLOFT) 50 mg Take 50 mg by mouth 0 tablet daily. traZODone (DESYREL) 50 mg Take 50 mg by mouth 0 tablet daily. isosorbide mononitrate Take 0.5 Tabs by 15 Tab 2 020 04/22/2020 (IMDUR) 30 mg CR tablet mouth daily for 30 days. documented as of this encounter Ordered Prescriptions Prescription Sig Dispensed Refills Start Date End Date isosorbide mononitrate Take 0.5 Tabs by 15 Tab 2 020 04/22/2020 (IMDUR) 30 mg CR tablet mouth daily for 30 days. documented in this encounter Discharge Disposition Disposition Code Departure Means Destination Home or Self Penitentiary documented in this encounter Progress Notes Lashon Thorne MD - 03/22/2020 0928 EDT Cardiology Progress note Service Date: 03/22/2020 Admit Date: 03/18/2020 23:05 Reason for Admission: 64 y.o. male admitted with a chief complaint of chest pain and now with a principal diagnosis of NSTEMI. Events/ Procedures in the last 24 Hours: - Cardiac MRI - findings below Subjective/Objective Subjective Mr. Batista has no complaints this morning and says that he has been walking laps around the unit since early this morning. Denies any chest pain or dyspnea. Headaches have been much better over the pastday and no longer requiring APAP. Looking forward to hearing about his MRI results. Review of Systems Pertinent items are noted in Subjective/HPI Objective Vital Signs Patient Vitals for the past 8 hrs: BP Heart Rate Temp SpO2 03/22/20921 123/68 77 BPM 36 ??C (96.8 ??F) 96 % 03/22/207 ??? 76 BPM ??? 96 % 03/22/20455 122/72 73 BPM ? Weight: No data found. No intake or output data in the 24 hours ending 03/22/20927 Physical Exam General appearance: alert, cooperative, no distress Skin: Skin color, tempature, turgor normal. No rashes or lesions HEENT: Normocephalic, atraumatic Neck: supple, symmetrical, trachea midline Lungs: clear to auscultation bilaterally, good air movement throughout Heart: regular rate and rhythm, S1, S2 normal, no murmur, click, rub or gallop Abdomen: soft, non-tender; bowel sounds normal Neurologic: Grossly normal, moving all extremities Extremities: extremities warm, atraumatic, no cyanosis or edema, positive pulses bilat Heme: No bleeding, no bruising Is PICC or central line present? No, PICC/Central line not present. Medications Reviewed: no changes Labs Reviewed: Results notable for POC glucose ranging 94-199 yesterday, fasting 131 this AM. Glargine was held last night due to POC glucose 94. CBC: Recent Labs 03/20/2021003/21/20 0559 WBC 8.07 6.44 HGB 14.1 14.4 HCT 42.2 43.1 MCV 83 84 PLT 212 223 BMP: Recent Labs 03/20/2021003/21/20 0559 CREATININE 0.79 0.71 NA 138 141 K 4.3 4.7 CL 99 100 CO2 30 28 Coags: No results for input(s): PROTIME, INR, PTT in the last 72 hours. LFTs: No results for input(s): ALT, AST, GGT, ALKPHOS, TBIL in the last 72 hours. Cardiac Biomarkers: Recent Labs 03/19/20 1756 03/20/20 0211 TROPONINI 0.151* 0.140* Lipids: No results for input(s): CHOL, TRIG, HDL, LDLBASE, CHOLHDL in the last 72 hours. Non-Invasive Findings last 24 hours: MR YENNIFER Xavier WO CONTRAST 03/21/2020 1:00 PM 1. Small subendocardial infarction involving the basilar inferior wall of the left ventricle. 2. Mildly reduced left ventricular ejection fraction of 50%. Telemetry: reviewed, no alarms ECG: N/A Does the patient have active heart failure? no Assessment/Plan Assessment/Plan Assessment: Claudia Batista??is is a 64-year-old male with a past medical history significant for coronary arterydisease (S/p 9 stents), type 2 diabetes (insulin-dependent) HTN, HLD, DEEPALI, and significant tobacco use history. Presents as a direct transfer from [facility] for further work-up of a NSTEMI. Evaluation thus far has yielded an echo with EF 55-60% and no wall motion abnormalities, and LHC without stenosis meriting intervention. Symptoms have now resolved with medical management on Imdur. EP consulted due to runs of NSVT on tele, for which cardiac MRI was obtained yesterday. Plan : NSTEMI: symptoms now resolved, echo and LHC without significant abnormalities - continue telemetry monitoring class I - Imdur 15 mg qd - ASA 81mg daily - ticagrelor 90mg BID - continue PATIENT OBSERVER rosuvastatin 40 mg daily NSVT: noted on telemetry overnight following admission. Asymptomatic (pt sleeping). No recurrence. Cardiac MRI obtained 03/21 showing a small infarct in the basilar inferior wall of the LV. - EP consulted, recommendations pending CAD/HTN/HLD -Continue aspirin 81 mg daily -Continue PATIENT OBSERVER amlodipine 10 mg -Continue lisinopril 5 mg daily -Continue metoprolol XL 150 mg daily ?? Type 2 Diabetes: A1c 7.4% on admission, PATIENT OBSERVER insulin regimen 40 units glargine twice daily. - Lantus held last night, currently NPO with elevated AM glucose - When PO, resume Lantus 20U BID + consistent carb diet - POCT Glc Q6 while NPO then before meals and qhs - Sliding scale with aspart Q6 while NPO - Continue to hold PATIENT OBSERVER metformin, dapagliflozin, exenatide ?? Depression/sleep -Continue PATIENT OBSERVER sertraline 50 mg daily -Continue PATIENT OBSERVER trazodone 50 mg daily ?? Diet: NPO VTE Prophylaxis: heparin 5000 subcutaneous q 8 hrs CODE STATUS: Full Discharge Plan Pending plan from SALIMA THORNE MD 03/22/2020 9:28 Shantell Stevenson MD - 03/21/2020 1038 EDT Cardiology Progress note Service Date: 03/21/2020 Admit Date: 03/18/2020 23:05 Reason for Admission: 64 y.o. male admitted with a chief complaint of chest pain and now with a principal diagnosis of NSTEMI. Events/ Procedures in the last 24 Hours: - EP consult, cardiac MRI ordered MR Preformed 03/21/2020: IMPRESSION 1. Small subendocardial infarction involving the basilar inferior wall of the left ventricle. 2. Mildly reduced left ventricular ejection fraction of 50%. Subjective/Objective Subjective Mr. Batista continues to feel well, without chest pain, dyspnea, or LE edema. Ambulating comfortably around the unit. Continuing to tolerate Isordil well without headaches. Waiting for cardiac MRI this afternoon. Review of Systems Pertinent items are noted in Subjective/HPI Objective Vital Signs Patient Vitals for the past 8 hrs: BP Heart Rate Resp Temp SpO2 O2 Device 03/21/20 0752 106/67 74 BPM 18 36.1 ??C (97 ??F) 96 % None 03/21/20 0600 ??? 85 BPM ? 03/21/20 0546 115/69 87 BPM 18 36.2 ??C (97.2 ??F) 97 % None 03/21/20 0500 ??? 63 BPM ? 03/21/20 0400 ??? 62 BPM ? 03/21/20 0300 ??? 71 BPM ? Weight: No data found. Intake/Output Summary (Last 24 hours) at 03/21/2020 1038 Last data filed at 03/21/2020 0600 Gross per 24 hour Intake 600 ml Output ??? Net 600 ml Physical Exam General appearance: alert, cooperative, no distress Skin: Skin color, tempature, turgor normal. No rashes or lesions HEENT: Normocephalic, atraumatic Neck: supple, symmetrical, trachea midline Lungs: clear to auscultation bilaterally, good air movement throughout Heart: regular rate and rhythm, S1, S2 normal, no murmur, click, rub or gallop Abdomen: soft, non-tender; bowel sounds normal Neurologic: Grossly normal, moving all extremities Extremities: extremities warm, atraumatic, no cyanosis or edema, positive pulses bilat Heme: No bleeding, no bruising Is PICC or central line present? No, PICC/Central line not present. Medications Reviewed: Changes notable for changed Isordil 5mg TID to Imdur 15 mg qd Labs Reviewed: Results notable for POC glucose ranging 109-119 yesterday, fasting 117 this AM. Glargine held for NPO. CBC: Recent Labs 03/19/20 0546 03/20/20 0211 03/21/20 0559 WBC 7.59 8.07 6.44 HGB 14.4 14.1 14.4 HCT 42.2 42.2 43.1 MCV 82 83 84 PLT 256 212 223 BMP: Recent Labs 03/19/20 0151 03/20/20 0211 03/21/20 0559 CREATININE 0.69 0.79 0.71 NA 140 138 141 K 3.8 4.3 4.7 CL 100 99 100 CO2 28 30 28 Coags: No results for input(s): PROTIME, INR, PTT in the last 72 hours. LFTs: No results for input(s): ALT, AST, GGT, ALKPHOS, TBIL in the last 72 hours. Cardiac Biomarkers: Recent Labs 03/19/20 0901 03/19/20 1756 03/20/20 0211 TROPONINI 0.191* 0.151* 0.140* Lipids: No results for input(s): CHOL, TRIG, HDL, LDLBASE, CHOLHDL in the last 72 hours. Non-Invasive Findings last 24 hours: n/a Telemetry: reviewed, no alarms ECG: N/A Does the patient have active heart failure? no Assessment/Plan Assessment/Plan Assessment: Claudia Batista??is is a 64-year-old male with a past medical history significant for coronary arterydisease (S/p 9 stents), type 2 diabetes (insulin-dependent) HTN, HLD, DEEPALI, and significant tobacco use history. Presents as a direct transfer from [facility] for further work-up of a NSTEMI. Evaluation thus far has yielded an echo with EF 55-60% and no wall motion abnormalities, and LHC without stenosis meriting intervention. Symptoms have now resolved with medical management on Imdur. EP consulted due to runs of NSVT on tele, for which cardiac MRI will be obtained today. ?? Plan : NSTEMI: symptoms now resolved, echo and LHC without significant abnormalities - continue telemetry monitoring class I - Imdur 15 mg qd - ASA 81mg daily - ticagrelor 90mg BID - continue PATIENT OBSERVER rosuvastatin 40 mg daily - replete if Mg <2 or K <4 NSVT: noted on telemetry overnight following admission. Asymptomatic (pt sleeping). No recurrence. - EP consulted - Cardiac MRI - scheduled for today at 1300 - Depending on MRI findings, either d/c with meds + monitor, or consider ICD CAD/HTN/HLD -Continue aspirin 81 mg daily -Continue PATIENT OBSERVER amlodipine 10 mg -Continue lisinopril 5 mg daily -Continue metoprolol XL 150 mg daily ?? Type 2 Diabetes: A1c 7.4% on admission, PATIENT OBSERVER insulin regimen 40 units glargine twice daily. - Currently normoglycemic and NPO, Lantus held - When PO, resume Lantus 20U BID + consistent carb diet - POCT Glc Q6 while NPO then before meals and qhs - Sliding scale with aspart Q6 while NPO - Continue to hold PATIENT OBSERVER metformin, dapagliflozin, exenatide ?? Depression/sleep -Continue PATIENT OBSERVER sertraline 50 mg daily -Continue PATIENT OBSERVER trazodone 50 mg daily ?? Diet: NPO VTE Prophylaxis: heparin 5000 subcutaneous q 8 hrs CODE STATUS: Full Discharge Plan Uncertain at this time - potentially today or tomorrow pending cardiac MRI findings LASHON THRONE MD 03/21/2020 10:38 STAFF ATTESTATION: ?? I, Shantell Manuel MD,??have seen and examined this patient. I have reviewed and edited the details outlined by my colleague,??Dr. Thorne,??in this note as needed and have put blanton changes. I would addthe following blanton elements of the patient's history, physical exam and plan after my personal evaluation: ? As noted prior, presented with NSTEMI was unchanged coronary findings but developed runs of nonsustained [place] while inpatient. Consulted with EP and plan for cardiac MR for tissue catheterization. ?? From the CAD/angina standpoint, tolerating low dose Imdur 15 mg every day, abating headaches with Tylenol. Cardiac MR noted infarct as above, will discuss with EP plan. I spent a total of >35 minutes in direct floor time dedicated solely to this patient and 20 minutes of that time was spent in discussion with the patient about the risks and treatment options for managing his nonsustained ventricular tachycardia and anginal symptoms. Shantell Manuel MD 03/21/2020 18:23 scShantell davis MD - 03/20/2020 1006 EDT Cardiology Progress note Service Date: 03/20/2020 Admit Date: 03/18/2020 23:05 Reason for Admission: 64 y.o. male admitted with a chief complaint of chest pain and now with a principal diagnosis of NSTEMI. Events/ Procedures in the last 24 Hours: - Left heart cath with patent stents and no areas of stenosis amenable to intervention - TTE with EF 55-60%, no wall motion abnormalities, no valvular abnormalities Subjective/Objective Subjective Mr. Batista denies chest pain, dyspnea, lower extremity edema, palpitations. Overall he feels well this morning. Took first dose of Isordil yesterday evening and did not have any headaches overnight. Wondering when he can eat. Review of Systems Pertinent items are noted in Subjective/HPI Objective Vital Signs Patient Vitals for the past 8 hrs: BP Heart Rate Resp Temp SpO2 O2 Device 03/20/20 0835 110/62 70 BPM ? 03/20/20 0825 110/62 72 BPM 18 36.8 ??C (98.2 ??F) 96 % None 03/20/20 0605 123/62 79 BPM ? None 03/20/20 0600 ??? 85 BPM ? 03/20/20 0500 ??? 63 BPM ? 03/20/20 0400 ??? 73 BPM ? 03/20/20 0300 ??? 65 BPM ? Weight: No data found. Intake/Output Summary (Last 24 hours) at 03/20/2020 1009 Last data filed at 03/19/2020 1956 Gross per 24 hour Intake 450 ml Output 450 ml Net 0 ml Physical Exam General appearance: alert, cooperative, no distress Skin: Skin color, tempature, turgor normal. No rashes or lesions HEENT: Normocephalic, atraumatic Neck: supple, symmetrical, trachea midline Lungs: clear to auscultation bilaterally, good air movement throughout Heart: regular rate and rhythm, S1, S2 normal, no murmur, click, rub or gallop Abdomen: soft, non-tender; bowel sounds normal Neurologic: Grossly normal, moving all extremities Extremities: extremities warm, atraumatic, no cyanosis or edema, positive pulses bilat Heme: No bleeding, no bruising Is PICC or central line present? No, PICC/Central line not present. Medications Reviewed: Changes notable for started Isordil 5mg TID Labs Reviewed: Results notable for POC glucose ranging 79-144. CBC: Recent Labs 03/19/20 0151 03/19/20 0546 03/20/20 0211 WBC 8.25 7.59 8.07 HGB 14.4 14.4 14.1 HCT 41.5 42.2 42.2 MCV 82 82 83 PLT 234 256 212 BMP: Recent Labs 03/19/20 0151 03/20/20 021 CREATININE 0.69 0.79 NA 140 138 K 3.8 4.3 CL 100 99 CO2 28 30 Coags: No results for input(s): PROTIME, INR, PTT in the last 72 hours. LFTs: No results for input(s): ALT, AST, GGT, ALKPHOS, TBIL in the last 72 hours. Cardiac Biomarkers: Recent Labs 03/19/20 0901 03/19/20 1756 03/20/20 0211 TROPONINI 0.191* 0.151* 0.140* Lipids: No results for input(s): CHOL, TRIG, HDL, LDLBASE, CHOLHDL in the last 72 hours. Non-Invasive Findings last 24 hours: TTE 03/19/20 09:35 ??? Left Ventricle: The left ventricular cavity was normal in size. ??? Left Ventricle: Left ventricular systolic function was normal with an ejection fraction of 55-60%. ??? Left Ventricle: Left ventricular wall motion was normal; there were no regional wall motion abnormalities. ??? Right Ventricle: The right ventricular cavity was normal in size. ??? Right Ventricle: Right ventricular systolic function was normal. Telemetry: reviewed ECG: N/A Does the patient have active heart failure? no Assessment/Plan Assessment/Plan Assessment: Claudia Batista??is is a 64-year-old male with a past medical history significant for coronary arterydisease (S/p 9 stents), type 2 diabetes (insulin-dependent) HTN, HLD, DEEPALI, and significant tobacco use history. Presents as a direct transfer from [facility] for further work-up of a NSTEMI. Evaluation thus far has yielded an echo with EF 55-60% and no wall motion abnormalities, and LHC without stenosis meriting intervention. Symptoms have now resolved with medical management on Isordil. EP consulted due to runs of NSVT on tele, for which cardiac MRI will be obtained today. ?? Plan : NSTEMI: symptoms now resolved, echo and LHC without significant abnormalities - continue telemetry monitoring class I - troponin peak 0.191 and now downtrending x2; discontinue - responding well to Isordil 5 mg TID; plan to discharge on Imdur 15 mg qd - ASA 81mg daily - ticagrelor 90mg BID - heparin gtt per protocol - supplemental O2 if needed, thus far has not - continue PATIENT OBSERVER rosuvastatin 40 mg daily - replete if Mg <2 or K <4 - Goal SBP <140 and HR <70 NSVT: noted on telemetry overnight following admission. Asymptomatic (pt sleeping). - EP consulted - Cardiac MRI - ordered, to be performed tomorrow CAD/HTN/HLD -Continue aspirin 81 mg daily -Continue PATIENT OBSERVER amlodipine 10 mg -Continue lisinopril 5 mg daily -Continue metoprolol XL 150 mg daily ?? Type 2 Diabetes: A1c 7.4% on admission, PATIENT OBSERVER insulin regimen 40 units glargine twice daily. - Currently NPO and receiving Lantus 20U BID - Continue to hold PATIENT OBSERVER metformin, dapagliflozin, exenatide - Consistent carbohydrate diet when eating - POCT Glc Q6 while NPO then before meals and qhs -Sliding scale with aspart Q6 while NPO ?? Depression/sleep -Continue PATIENT OBSERVER sertraline 50 mg daily -Continue PATIENT OBSERVER trazodone 50 mg daily ?? Diet: NPO VTE Prophylaxis: Heparin gtt Consults: None CODE STATUS: Full Admission Status Inpatient. Anticipated duration of hospitalization is greater than two midnights due to NSTEMI. Discharge Plan Uncertain at this time - potential d/c tomorrow pending cardiac MRI findings LASHON THORNE MD 03/20/2020 10:09 STAFF ATTESTATION: ?? I, Shantell Manuel MD, have seen and examined this patient on 03/20/2020. I have reviewed and edited the details outlined by my colleague, Dr. Thorne, in this note as needed and have put blanton changes. I would add the following blanton elements of the patient's history, physical exam and plan after my personal evaluation: As noted prior, presented with NSTEMI was unchanged coronary findings but developed runs of nonsustained VT while inpatient. Consulted with EP and plan for cardiac MR for tissue catheterization. ?? From the CAD/angina standpoint, we will optimize medical therapy and try to introduce low-dose nitroas tolerated. I spent a total of >35 minutes in direct floor time dedicated solely to this patient and 20 minutes of that time was spent in discussion with the patient about the risks and treatment options for managing his nonsustained ventricular tachycardia and anginal symptoms. Shantell Manuel MD 03/21/2020 7:00 Jo Gold - 03/19/2020 3133 EDT Initial Case Management/Social Work Assessment and Discharge Plan/Readmission Risk Assessment REASON FOR ADMISSION: NSTEMI (non-ST elevated myocardial infarction) ([facility]) Patient understands reason for admission: Yes PATIENT CONTACT INFO VERIFIED: Yes(Sister josie Tirado [phone]) PATIENT ADDRESS VERIFIED: Yes LIVING ARRANGEMENTS AND ACCESSIBILITY ISSUES: Living Arrangements: Family members Levels: 1 Stairs to enter: 4 or more Handicap access: Railings into home Bathroom located on bedroom level?: Yes What in home social supports are available to the patient? Friends / neighbors, Spouse / significantother. Patient lives with his sister and his girlfriend. He states that he is independent with self care and home management. Is 09/02 care available? Yes ADVANCED DIRECTIVES, POA &/or COLST IN PLACE: Healthcare Directive: Yes, patient has advance directive for healthcare treatment Type of Healthcare Directive: Health care treatment directive Copy in Chart: Yes, previous copy on file @ [facility] DIRECTIVES FOR FINANCES: TRANSPORTATION: Transportation: Family CULTURAL, JEWISH and/or LANGUAGE factors affecting health care/discharge planning: Spiritual/Cultural Requests: None Any factors affecting health care/discharge planning?: No Insurance in Place: Yes Medical Insurance: Yes Type of insurance: Commercial insurance Commercial coverage: [employer] Referred to patient financial services: No Nutrition: DISCHARGE RISK ASSESSMENT: Total # selected above: Tentative plan to address the risk of re-hospitalization for those at HIGH MODERATE RISK: RAPT TOOL: Patient expects to be discharged to: Home SBIRT: SASQ (Single Alcohol Screening Question) How many times in the past year have you had 5 or more drinks in a single day?: Never How many times in the past year have you used an illegal drug or used a prescription medication for non-medical reasons?: Never Intervention in place/initiated?: No, not indicated FUNCTIONAL STATUS: Activities patient requires assistance: None Assistive Device: None COMMUNITY RESOURCES/SUPPORTS: Primary Care Provider: Denise Hooker PCP Verified: Yes(Denise Hooker, JENNIFER) Specialists: Type of Home Health Services: None DME Provider: None Pharmacy: [facility] [address] [facility] [address] [address] [place], [place] - [address] [facility] [address] [facility] [id number] [facility] [place], [place] [address] [facility] [address] [facility] [address] [facility] - [place], [place] - [address] [facility] [address] Home Health: None Other: POST HOSPITAL TRANSITION PLAN: Case management will continue to follow through transition to discharge. Patient's family can provide transportation. Patient is awaiting [facility] and treatment plan. No needsare identified at this time. Patient has Meds to Beds. Jo Lee RN Case Manager #[id number] TBettie Feliz MD - 03/19/2020 0632 EDT Mail Clerks Supervisor Addendum to H&P Mr. Claudia Batista is a 64YOM with PMHx pertinent for HTN, HLD, DMII and CAD (s/p multiple PCIs w/ stenting of LAS and RCA; last PCI to mid LAD 01/2016; LHC w/o flow limiting dx in 11/2018) who presents intransfer from [facility] after episode of jaw pain. This AM after cutting wood and noted the onset of intermittent episodes of achy bilateral jaw pain which improved w/ SL nitrox2 but quickly returned. During this he sought medical attention. At [facility] initial trop was negative with second troponin uptrendingto 0.15. ASA, ticagrelor and heparin drip started at OSH. EKG unchanged from prior and pt chest painfree on arrival. A/P Presentation is concerning for jaw pain as an anginal equivalent and consistent with NSTEMI/ACS. As such, pt will be admitted to Cardiology service for further evaluation and management. Will plan for monitoring on telemetry and continued trending of troponin. DAPT and heparin drip continued. High intensity statin ordered. Coronary assessment is warranted and would favor early invasive strategy w/ LHC in AM. As such consent obtained. Rest of A/P resident document. PATIENT CONSENT TO CARDIOVASCULAR CATHETERIZATION OR INTERVENTION: I, Bettie Feliz MD, have explained the risks and benefits of cardiac catheterization and/or intervention to the patient (or responsible republican) and have answered the patient's (or responsible republican's) questions. To the best of my knowledge, the patient (or responsible republican) has been adequately informed. The patient (or responsible republican) has consented to the interventional cardiac procedure. As part of the consent we reviewed that, like surgical procedures, interventional procedures require aggressive short term support to determine the potential benefits of the procedures. For this reason, the patient (or responsible republican) has agreed to remain FULL CODE for a minimum of 48 hours after the procedure. Bettie Feliz MD Cardiovascular Fellow documented in this encounter H&P Notes Shantell Manuel MD - 03/19/2020 0111 EDT Cardiology Admitting H&P Admit Date: 03/18/2020 Date of Service: 03/19/2020 PCP: Denise Hooker Code Status: Prior Chief Complaint: Chest pain HPI: Claudia Batista??is is a 64-year-old male with a past medical history significant for coronary arterydisease (S/p 9 stents), type 2 diabetes (insulin-dependent) HTN, HLD, DEEPALI, and significant tobacco use history. Presents as a direct transfer from [facility] for further work-up of a NSTEMI. Patient reports that early in the day on March 18 2020, he was cutting wood, when he felt like his blood glucose level was getting low. Patient decided to stop cutting wood and went inside to prepare himself lunch. He sat down in his usual chair when he began feeling pain in his jaw, he took 1 nitro which helped calm the pain down. The pain was absent for approximately 20 minutes when the jaw pain returns. He proceeded to take another sublingual nitroglycerin which again helped the pain. However, the pain returned for the third time and that is when patient decided he needed to call EMS to present to emergency department at [facility]. Patient reports that this jaw pain did not radiate into his arm, and did not worsen with movement, he also denies chest pain. The pain is similar to the pain he felt when he had a previous MIs. Patient denies shortness of breath, diaphoresis, lightheadedness, dizziness, changes in vision nausea, vomiting. Patient reports sleeping with one pillow, denies leg swelling, orthopnea, PND, abdominal distention,subjective fever, chills, night sweats. Currently patient does not smoke, drinks approximately 4 drinks a month and sleeps with a CPAP at night for obstructive sleep apnea. Prior Cardiac History: 1992, 2003 myocardial infarction August 23, 2003, 2 stents September 07 2009, 3 stents placed in RCA September 10, 2009, 3 stents placed in LAD February 11, 2016, 1 stent placed November 21, 2018, no stent placed Echocardiogram 12/02/2018 Summary 1. Left ventricle: The cavity size was normal. Wall thickness was normal. Systolic function was normal. The estimated ejection fraction was 60%. Wall motion was normal; there were no diagnostic regional wall motion abnormalities. 2. Right ventricle: The cavity size was normal. Wall thickness was normal. Systolic function was normal. ?? PMH PSH Past Medical History: Diagnosis Date ??? CAD (coronary artery disease) 09-10-09 PCI LAD prox MARY, LAD mid MARY, LAD distal BMS; 09-07-09 PCI MARY X 3 RCA; 2003 stents X2 ??? Diabetes mellitus ([facility]) oral agents ??? Diverticulitis ??? Hyperlipidemia ??? Hypertension ??? PA (myocardial infarction) ([facility]) 1992, 2003 ??? Recurrent infections rt foot 5th toe Past Surgical History: Procedure Laterality Date ??? CARPAL TUNNEL RELEASE bilateral ??? ROTATOR CUFF REPAIR right, fall 2015 ??? 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 UMBILICAL HERNIA REPAIR Jun, 2009 Social History Family History Social History Tobacco Use ??? Smoking status: Former Smoker Years: 20.00 Types: Cigarettes Quit date: 05/1994 Years since quittin.8 ??? Smokeless tobacco: Never Used Substance Use Topics ??? Alcohol use: Yes Comment: rare Family History Problem Relation Age of Onset ??? Diabetes Brother ??? Heart Disease Brother ??? Heart Disease Father at age 61 Medications Medications Prior to Admission Medication Sig Dispense Refill Last Dose ??? amlodipine (NORVASC) 10 mg tablet Take [...] tablet Take 50 mg by mouth daily. Allergies Allergies Allergen Reactions ??? Imdur [Isosorbide Mononitrate] Severe headache ??? Indoramin Headaches Review of Systems: Pertinent items are noted in Subjective/HPI Objective/Physical Exam: VS: Patient Vitals for the past 8 hrs: BP Heart Rate Resp Temp SpO2 O2 Device 03/19/20 0230 114/84 76 BPM ? 97 % ??? 03/18/20 2312 138/80 76 BPM 16 36 ??C (96.8 ??F) 97 % None Pain: Patient Vitals for the past 8 hrs: Numeric Pain Level (Scale 1-10) 03/18/20 2312 0 Weight: Weight : (!) 103 kg (227 lb) Body mass index is 33.52 kg/m??. Exam: Gen: NAD, alert, cooperative HEENT: conjunctivae/sclera clear, PERRL, EOMI CV: RRR, nml S1/S2, no murmurs/rubs/gallops appreciated Resp: CTA b/l, no wheezes/rales/rhonchi Abd: soft, NTTP, NABS, no hepatosplenomegaly Extr: no peripheral edema, atraumatic Neuro: AAOx3, fluent speech, no facial droop, CNII-XII grossly intact, purposefully moving all extremities against gravity Psych: affect appropriate Skin: no bruising, rashes, or lesions Pressure Ulcer Present on admission? No Data Review: Labs: CBC: Recent Labs 03/19/20150 WBC 8.25 RBC 5.05 HGB 14.4 HCT 41.5 MCV 82 MCH 28.5 MCHC 34.7 PLT 234 BMP: Recent Labs 03/19/20150 NA 140 K 3.8 CL 100 CO2 28 CREATININE 0.69 Cardiac Markers: Recent Labs 03/19/20150 TROPONINI 0.214* eGFR calculation: eGFR Date Value Ref Range Status 07/26/2019 76 >60 mL/min/1.73m2 Final Comment: eGFR calculated using CKD-EPI equation for non- Americans. Multiply eGFR by 1.16 for AfricanAmerican patients. Assessment: Claudia Batista??is is a 64-year-old male with a past medical history significant for coronary arterydisease (S/p 9 stents), type 2 diabetes (insulin-dependent) HTN, HLD, DEEPALI, and significant tobacco use history. Presents as a direct transfer from [facility] for further work-up of a NSTEMI. Plan for left heart catheterization for definitive management and repeat at an echocardiogram in the a.m. Plan : NSTEMI: symptomatic. - admit with telemetry monitoring class I - trend troponin q8h until peak - ASA 325mg x 1 now, then 81mg daily - ticareglor 180mg x 1 now then 90mg BID - heparin gtt per protocol - nitro 0.4mg SL q5min prn if persistent pain consider nitro gtt - supplemental O2 if needed -Continue PATIENT OBSERVER rosuvastatin 40 mg daily - NPO at midnight for potential intervention (LHC) or other testing if needed - ordered lipid profile and A1c - echo ordered - replete if Mg <2 or K <4 - Goal SBP <140 and HR <70 CAD/HTN/HLD -Continue aspirin 81 mg daily -Continue PATIENT OBSERVER amlodipine 10 mg -Continue lisinopril 5 mg daily -Continue metoprolol XL 150 mg daily Type 2 Diabetes: A1c ordered, PATIENT OBSERVER insulin regimen 40 units glargine twice daily -Decrease PATIENT OBSERVER insulin regimen to 30 units twice daily -Hold PATIENT OBSERVER metformin 1000 twice daily -Hold PATIENT OBSERVER dapagliflozin 5 mg daily -Hold PATIENT OBSERVER exenatide microspheres - Consistent carbohydrate diet when eating - POCT Glc Q6 while NPO then before meals and qhs -Sliding scale with aspart Q6 while NPO Depression/sleep -Continue PATIENT OBSERVER sertraline 50 mg daily -Continue PATIENT OBSERVER trazodone 50 mg daily Diet: NPO VTE Prophylaxis: Heparin gtt Consults: None CODE STATUS: Full Admission Status Inpatient. Anticipated duration of hospitalization is greater than two midnights due to NSTEMI. Discharge Plan: Uncertain at this time Joesph Wesley MD 03/19/2020 1:11 STAFF ATTESTATION: ?? I, Shantell Manuel MD, have seen and examined this patient. I have reviewed and edited the details outlined by my colleague Dr. Pickett in this note as needed and have put blanton changes. I would add the following blanton elements of the patient's history, physical exam and plan after my personal evaluation: ?? Plan: I have edited the above problem-based assessment/plan. In short, 64-year-old man with significant cardiac history presented with chest pain and positive cardiac troponins, being managed for NSTEMI. Today, diagnostic angiogram performed revealing no significant change compared to his prior with mild to moderateepicardial coronary artery disease. Left main: Minor luminal irregularities. Left anterior descending: Proximal 30% unchanged. Patent stents with minimal ISR. Slow flow initially with rapid improvement to normal with IC NTG. Left circumflex: Minor luminal irregularities. Proximal 30% unchanged. Distal 50% unchanged. Ramus: Small. Minor luminal irregularities. Right coronary artery: Dominant. Patent stents with minimal ISR. We will optimize medical therapy and try to introduce low-dose nitro as tolerated. Challenge with low dose Imdur, 15, and adjust other BP meds as needed. May need to decrease the doses of amlodipine orlisinopril if developed hypotension. ?? Telemetry review noted runs of NSVT, given no coronary etiology and no change in the EF, will consult with EP given the VT occurrence despite maximal tolerated beta rohini therapy in a high risk patient with no ICD in place. Shantell Manuel MD 03/19/2020 19:28 documented in this encounter Procedure Notes Germaine, Nash B Jr., MD - 03/19/2020 1553 EDT Cardiovascular Catheterization Laboratory Preliminary Report -- Catheterization Date of Service/Procedure: 03/19/2020 Attending Physician: Nash Herron Jr., MD Fellow: Luis Garcia MD and Chaparrita Mclain MD Assist: Kassandra Mendez APRN Pre-Procedure Diagnosis /NCDR Indication: Claudia Batista is a 64 y.o. year old male with ACS <= 24 hrs. Chest Pain Symptom Assessment: Typical Angina Heart Failure: No CHSA Clinical Frailty Scale: 3: Managing Well Prior Stress Testing? No Anesthesia: A moderate level of anesthesia/conscious sedation was used in addition to local anesthesia. Access: Right radial artery Procedure: He was brought to [facility] Cardiac Catheter[facility] Laboratory for the procedure: Diagnostic coronary/graft angiography. Closure: TR Band Post-Procedure Condition: The condition of the patient was Good. Complications: None. IV Contrast Total: 50 mL X-ray Dose: 336 mGy Estimated Blood Loss: Minimal. Unless otherwise noted,there were no specimens removed, cultures obtained, or drains retained. Research Study: Patient is not enrolled in a research study. Diagnostic Cardiac Study Results Left main: Minor luminal irregularities. Left anterior descending: Proximal 30% unchanged. Patent stents with minimal ISR. Slow flow initially with rapid improvement to normal with IC NTG. Left circumflex: Minor luminal irregularities. Proximal 30% unchanged. Distal 50% unchanged. Ramus: Small. Minor luminal irregularities. Right coronary artery: Dominant. Patent stents with minimal ISR. Post-Procedure Diagnostic Conclusion: Medical therapy is indicated. Plan: See post-procedure orders. Consider vasodilators (maybe NTG patch? Could not tolerate oral isosorbide previously). At the completion of the procedure, the attending physician has explained the findings, therapies, any complications and treatment plan to the patient. With the patients consent, all family members andpatient support persons who were present at the conclusion of the procedure have been notified of these results and treatment plans as well. Nash Herron Jr., MD PagerNumber: [phone] 03/19/2020 15:53 Shantell Stevenson MD - 03/19/2020 1026 EDT Cardiology Progress note Service Date: 03/19/2020 Admit Date: 03/18/2020 23:05 Reason for Admission: 64 y.o. male admitted with a chief complaint of chest pain and now with a principal diagnosis of chest pain. Events/ Procedures in the last 24 Hours: Subjective/Objective Subjective Mr. Batista has not acute complaints overnight. Troponin uptrended 0.214 Patient currently not in chest pain, awaiting LHC and echo today. Telemetry overnight had about 40secs of asymptomatic VTach. LHC required no intervention. Review of Systems Pertinent items are noted in Subjective/HPI Objective Vital Signs Patient Vitals for the past 8 hrs: BP Heart Rate Resp Temp SpO2 O2 Device 03/19/20 0729 120/66 70 BPM 18 36.1 ??C (97 ??F) 95 % None 03/19/20 0700 ??? 74 BPM ? 03/19/20 0230 114/84 76 BPM ? 97 % ??? Weight: No data found. No intake or output data in the 24 hours ending 03/19/20 1027 Physical Exam General appearance: alert, cooperative, no distress Skin: Skin color, tempature, turgor normal. No rashes or lesions HEENT: Normocephalic, atraumatic Neck: supple, symmetrical, trachea midline Lungs: clear to auscultation bilaterally, good air movement throughout Heart: regular rate and rhythm, S1, S2 normal, no murmur, click, rub or gallop Abdomen: soft, non-tender; bowel sounds normal Neurologic: Grossly normal, moving all extremities Extremities: extremities warm, atraumatic, no cyanosis or edema, positive pulses bilat - hold oral agents Is PICC or central line present? No, PICC/Central line not present. Medications Reviewed: No changes Labs Reviewed: troponin elevation CBC: Recent Labs 03/19/20 0151 03/19/20 0546 WBC 8.25 7.59 HGB 14.4 14.4 HCT 41.5 42.2 MCV 82 82 PLT 234 256 BMP: Recent Labs 03/19/20 015 CREATININE 0.69 NA 140 K 3.8 CL 100 CO2 28 Coags: No results for input(s): PROTIME, INR, PTT in the last 72 hours. LFTs: No results for input(s): ALT, AST, GGT, ALKPHOS, TBIL in the last 72 hours. Cardiac Biomarkers: Recent Labs 03/19/20 0151 TROPONINI 0.214* Lipids: No results for input(s): CHOL, TRIG, HDL, LDLBASE, CHOLHDL in the last 72 hours. Non-Invasive Findings last 24 hours: N/A Telemetry: yes, nonsustained asymptomatic vtach 40 beats. Personally reviewed by , FRANSICO ECG: Sinus rhythm with first-degree AV block, rate at 74, personally reviewed by , FRANSICO Does the patient have active heart failure? no Assessment/Plan Assessment/Plan Claudia Batista??is is a 64-year-old male with a past medical history significant for coronary arterydisease (S/p 9 stents), type 2 diabetes (insulin-dependent) HTN, HLD, DEEPALI, and significant tobacco use history. Presents as a direct transfer from [facility] for further work-up of a NSTEMI. Plan for left heart catheterization for definitive management and repeat at an echocardiogram today. ?? Plan : NSTEMI: symptomatic. - admit with telemetry monitoring class I - trend troponin q8h until peak - ASA 81mg daily - ticareglor 90mg BID - heparin gtt per protocol - nitro 0.4mg SL q5min prn if persistent pain consider nitro gtt - supplemental O2 if needed -Continue PATIENT OBSERVER rosuvastatin 40 mg daily - NPO at midnight for potential intervention ([facility]) or other testing if needed - ordered lipid profile and A1c - echo ordered - replete if Mg <2 or K <4 - Goal SBP <140 and HR <70 ?? CAD/HTN/HLD -Continue aspirin 81 mg daily -Continue PATIENT OBSERVER amlodipine 10 mg -Continue lisinopril 5 mg daily -Continue metoprolol XL 150 mg daily ?? Type 2 Diabetes: A1c ordered, PATIENT OBSERVER insulin regimen 40 units glargine twice daily -Decrease PATIENT OBSERVER insulin regimen to 30 units twice daily -Hold PATIENT OBSERVER metformin 1000 twice daily -Hold PATIENT OBSERVER dapagliflozin 5 mg daily -Hold PATIENT OBSERVER exenatide microspheres - Consistent carbohydrate diet when eating - POCT Glc Q6 while NPO then before meals and qhs -Sliding scale with aspart Q6 while NPO ?? Depression/sleep -Continue PATIENT OBSERVER sertraline 50 mg daily -Continue PATIENT OBSERVER trazodone 50 mg daily ?? Diet: NPO VTE Prophylaxis: Heparin gtt Consults: None CODE STATUS: Full Admission Status Inpatient. Anticipated duration of hospitalization is greater than two midnights due to NSTEMI. Jeison Pickett DO 03/19/2020 10:27 STAFF ATTESTATION: I, Shantell Manuel MD, have seen and examined this patient. I have reviewed and edited the details outlined by my colleague Dr. Pickett in this note as needed and have put blanton changes. I would add the following blanton elements of the patient's history, physical exam and plan after my personal evaluation: Plan: I have edited the above problem-based assessment/plan. In short, 64-year-old man with significant cardiac history presented with chest pain and positive cardiac troponins, being managed for NSTEMI. Today, diagnostic angiogram performed revealing no significant change compared to his prior with mild to moderateepicardial coronary artery disease. We will optimize medical therapy and try to introduce low-dose nitro as tolerated. Shantell Manuel MD 03/19/2020 16:38 documented in this encounter Consult Notes Skyler Lopez MD - 03/20/2020 0658 EDT EP Cardiology Consult Attending Physician: Shantell Manuel MD Date of Service: 03/20/2020 Reason for Consult: [place] HPI: Claudia Batista is a 64 y.o. male patient with CAD (s/p multiple PCI's, DM2, HTN, HLD admitted 03/19 from [facility] for NSTEMI. Telemetry demonstrated ~40s of asymptomatic VT 03/19. LHC 03/19 w/ LM MLI's, pLAD 30% (unchanged) w/ patent stents and minimal ISR, pLCx 30% (unchanged), distal 50% (unchanged), RCA patent stents. Labs with downtrending troponin 0.214->0.191->0.151->0.140. TTE 03/19 LVEF 55- 60%. Patient reports that he is asymptomatic with episode of VT. ROS: A 10-point review of systems was conducted. Pertinent positives are noted in HPI. All other systems were reviewed and are negative. Past Medical History: Diagnosis Date ??? CAD (coronary artery disease) 09-10-09 PCI LAD prox MARY, LAD mid MARY, LAD distal BMS; 09-07-09 PCI MARY X 3 RCA; 2004 stents X2 ??? Diabetes mellitus ([facility]) oral agents ??? Diverticulitis ??? Hyperlipidemia ??? Hypertension ??? PA (myocardial infarction) ([facility]) 1992, 2003 ??? Recurrent infections rt foot 5th toe Current Facility-Administered Medications Medication Route Frequency ??? acetaminophen (TYLENOL) tablet 650 mg oral Q4H PRN ??? amLODIPine (NORVASC) tablet 10 mg oral DAILY ??? aspirin chewable tablet 81 mg oral DAILY ??? dextrose 50 % solution 12.5 g intravenous PRN ??? insulin aspart U-100 (NOVOLOG FLEXPEN) injection subcutaneous Q6H ??? insulin glargine (LANTUS SOLOSTAR) injection pen 20 Units subcutaneous BID ??? isosorbide dinitrate (ISORDIL) tablet 5 mg oral TID NITRATES ??? lidocaine 20 mg/mL (2 %) injection ??? lisinopriL (PRINIVIL) tablet 5 mg oral DAILY ??? metoprolol XL (TOPROL-XL) tablet 150 mg oral DAILY ??? midazolam (PF) (VERSED) 1 mg/mL injection ??? nitroglycerin 100 mcg/mL syringe ??? rosuvastatin (CRESTOR) tablet 40 mg oral DAILY ??? sertraline (ZOLOFT) tablet 50 mg oral DAILY ??? sodium chloride 0.9 % (flush) flush 3 mL intravenous Q8H ??? traZODone (DESYREL) tablet 50 mg oral QHS Allergies as of 03/18/2020 - Reviewed 03/18/2020 Allergen Reaction Noted ??? Imdur [isosorbide mononitrate] 03/18/2020 ??? Indoramin 05/19/2019 Social History Socioeconomic History ??? Marital status: [...] Types: Cigarettes Quit date: 05/1994 Years since quittin.8 ??? Smokeless tobacco: Never Used Substance and Sexual Activity ??? Alcohol use: Yes Comment: rare ??? Drug use: No ??? Sexual activity: Not on file Lifestyle ??? Physical activity Days per week: Not on file Minutes per session: Not on file ??? Stress: Not on file Relationships ??? Social connections Talks on phone: Not on file Gets together: Not on file Attends jew service: Not on file Active member of [...] ??? Heart Disease Father at age 61 Physical Exam Blood pressure 123/62, temperature (!) 35.4 ??C (95.7 ??F), temperature source Tympanic, resp. rate 16, height 175.3 cm (69), weight (!) 103 kg (227 lb), SpO2 98 %. General: NAD, pleasant, obese HEENT: NCAT Neck: Supple, No JVD CVS: S1, S2, RRR, no m/r/g Chest: Chest CTA b/l with good air movement Abdomen: Soft, NT, ND, BS+ Extremities: No LE edema, PPP 2+ Neuro: AAO x3 Labs CBC: Recent Labs 03/19/20 0151 03/19/20 0546 03/20/20 0211 WBC 8.25 7.59 8.07 HGB 14.4 14.4 14.1 HCT 41.5 42.2 42.2 MCV 82 82 83 PLT 234 256 212 BMP: Recent Labs 03/19/20 0151 03/20/20 0211 CREATININE 0.69 0.79 NA 140 138 K 3.8 4.3 CL 100 99 CO2 28 30 Coags: No results for input(s): PROTIME, INR, PTT in the last 72 hours. LFTs: No results for input(s): ALT, AST, GGT, ALKPHOS in the last 72 hours. Incorrect component name entered: TBILI FSBS: No results for input(s): GLUCOSEFINGE in the last 72 hours. Cardiac Biomarkers: Recent Labs 03/19/20 0901 03/19/20 1756 03/20/20 0211 TROPONINI 0.191* 0.151* 0.140* Hemoglobin A1C: Lab Results Component Value Date HGBA1C 7.4 (H) 03/19/2020 EC03/19/2020: NSR, RBBB, first-degree AV block TTE 03/19/20: ??? Left Ventricle: The left ventricular cavity was normal in size. ??? Left Ventricle: Left ventricular systolic function was normal with an ejection fraction of 55-60%. ??? Left Ventricle: Left ventricular wall motion was normal; there were no regional wall motion abnormalities. ??? Right Ventricle: The right ventricular cavity was normal in size. ??? Right Ventricle: Right ventricular systolic function was normal. A/P: Claudia Batista is a 64 y.o. male patient with CAD (s/p multiple PCI's, DM2, HTN, HLD admitted 03/19 from [facility] for NSTEMI. Telemetry demonstrated asymptomatic VT 03/19. Repeat [facility] with unchanged disease. Patient was asymptomatic with episode of VT. No evidence of additional recurrence. No interveable disease. Will need to pursue CMR for further characterization prior to proceeding with consideration of ICD. ???CMR ???Continue Toprol-XL 150 mg. Will need episodic EKGs going forward to monitor progression of AV block Case discussed with Dr. Thomas Lopez MD Mail Clerks Supervisor, PGY-5 Pager [phone] Associated attestation - Bebo Guzman MD - 03/27/2020 1323 EDT I saw and examined the patient with the resident/fellow/nurse practioner. I agree with the findingsand plan of care documented in the resident's/fellow's note. documented in this encounter Miscellaneous Notes Result QuickNote - Joesph Wesley MD - 03/22/2020 1622 EDT I have reviewed the labs/results. No action needed. lan of Lizzie - Jayashree Espitia RN - 03/22/2020 1602 EDT BP 116/62 (BP Cuff Location: Left arm, BP Patient Position: Sitting) Temp 36.4 ??C (97.5 ??F) (Tympanic) Resp 18 Ht 175.3 cm (69) Wt (!) 103 kg (227 lb) SpO2 97% BMI 33.52 kg/m?? Nursing Discharge Note D: Patient noted with discharge orders to: home. A: Prescriptions e-scripted. Reviewed discharge instructions and prescriptions with Patient IV d/c'd. Belongings collected and sent home with patient. R: Patient verbalized understanding of discharge instructions and denied further questions. RRA siteCDI w/ +csmts, pt stable upon d/c. JAYASHREE ESPITIA RN 03/22/2020 16:02 lan of Zoraida Gonzalez RN - 03/22/2020 0513 EDT Data: Assumed care of pt at 2300, pt s/p [facility] RRA approach with no interventions. Tele- SR with 1 degHB. Action: VS and tele monitored. RRA site monitored. Assessment as documented. Response: VS and tele stable. RRA site- C/D/I. Pt sleeping comfortably in bed. ZORAIDA MELARA RN 03/22/2020 5:13 Problem: High Fall Risk: Goal: Patient will Remain Free of Falls due to Med. Side Effects Outcome: Ongoing Problem: High Fall Risk: Goal: Patient Will Remain Free from Fall-Related Injury Outcome: Ongoing Problem: Sensory: Goal: Ability to compensate for vision loss will be supported Outcome: Ongoing Problem: Daily Care Plan Goals Goal: Care Plan Documentation Outcome: Ongoing Problem: High Fall Risk: Goal: Patient will Remain Free of Falls due to Med. Side Effects Outcome: Ongoing Problem: High Fall Risk: Goal: Patient Will Remain Free from Fall-Related Injury Outcome: Ongoing Problem: Sensory: Goal: Ability to compensate for vision loss will be supported Outcome: Ongoing Problem: Daily Care Plan Goals Goal: Care Plan Documentation Outcome: Ongoing lan of Siddhartha Singh RN - 03/21/2020 2128 EDT Data: pt admitted for NSTEMI w/ NSVT. Pt s/p clean LHC. Pt a/o x 3 and VSS. Bedtime FS 94. Action: MD Reyes notified of FS and lantus held. Assessment per flowsheet and meds per emaR. Response: pt resting in chair no complaints at this time. Plan is for EP to evaluate cardiac MRI results tomorrow. SIDDHARTHA WALTON RN 03/21/2020 21:28 lan of Lori Beth RN - 03/21/2020 0401 EDT BP 124/68 (BP Cuff Location: Left arm, BP Patient Position: Semi fowlers) Temp 36.2 ??C (97.2 ??F)(Tympanic) Resp 18 Ht 175.3 cm (69) Wt (!) 103 kg (227 lb) SpO2 98% BMI 33.52 kg/m?? Data: Assumed care at approx 1900. Pt admitted for NSTEMI. LHC performed via RRA which did not requiring any PCI intervention, plan for med mgmt. Pt is A&Ox3, independent within the room. Pt endorsed mild headache. Action: Meds given per SEP. Monitored tele, VS, blood sugar. Clustered care to promote rest. NPO status maintained after 0000 per orders. Response: SR on tele. VSS. Afebrile. Pt resting in bed, appears comfortable, call manriquez within reach.Plan is for Cardiac MRI today. LORI GALDAMEZ RN 03/21/2020 4:01 lan of Sima Anderson RN - 03/20/2020 1612 EDT BP 105/58 (BP Cuff Location: Left arm, BP Patient Position: Sitting) Temp 36.6 ??C (97.9 ??F) (Tympanic) Resp 16 Ht 175.3 cm (69) Wt (!) 103 kg (227 lb) SpO2 97% BMI 33.52 kg/m?? Data: Assumed care of pt at 0700. VSS on RA, 1st degree AVB on telemetry. Diagnostic C 03/19, RRA site is CDI. Denies CP, SOB and dizziness. Ambulating around unit w/o complaints. Action:Assessment and VS documented in flow sheet and medications administered per MAR. Response: VSS, cardiac MRI scheduled for tomorrow. Denies complaints. WCTM. SIMA PACE RN 03/20/2020 16:12 lan of Lizzie - Jessie Mart RN - 03/20/2020 0212 EDT [id number] Claudia Batista 64 y.o. male Length of stay: 2 day(s) Admitted: 03/18/2020 Service: Cardiology Code stats: Full Code BP 100/58 (BP Cuff Location: Left arm, BP Patient Position: Supine) Temp (!) 35.4 ??C (95.7 ??F) (Tympanic) Resp 16 Ht 175.3 cm (69) Wt (!) 103 kg (227 lb) SpO2 98% BMI 33.52 kg/m?? D: Pt is A&O x 3 on tele in 1st degree AVB. RRA is C/D/I with tegaderm and good CSMT. Denies chest pain/SOB/dizziness. Started long acting nitrate during day today. SBPs 95-100s, asymptomatic. A: TR band removed, passed orthostatic VSS, contacted to inquire about why pt is NPO at midnight and q6h finger sticks, clustered care to promote rest. R: No acute s/sx of distress. Blood sugar 78 at midnight, given juice. Plan to recheck again in AM. JESSIE MART RN 03/20/2020 2:12 lan of Care - Tahir Kyle RN - 03/19/2020 0040 EDT Data: Patient admitted to [id number] for NSTEMI. On tele patient in first degree heart block, on room air lungs clear bilaterally. No chest pain at this time. Patient arrived with heparin gtt infusing. 02:30 patient had approx 20 seconds of VTach. Action: Heparin gtt continued at current rate with UFH to be drawn at 02:00. Oriented to room. MD notified of Vtach Response: Patient was asymptomatic of Vtach, now patient resting comfortably at this time. TAHIR KYLE RN 03/19/2020 0:40 Problem: High Fall Risk: Goal: Patient will Remain Free of Falls due to Med. Side Effects Outcome: Ongoing Problem: High Fall Risk: Goal: Patient Will Remain Free from Fall-Related Injury Outcome: Ongoing documented in this encounter Plan of Treatment Upcoming Encounters Date Type Specialty Care Team Description 09/29/2022 Office Visit Gastroenterology and Shaq Phan, Hepatology [address] [place] [address], [facility] [address] [place] [address] (Wo rk) documented as of this encounter Procedures Procedure Name Priority Date/Time Associated Comments Diagnosis ECG REPORT - SCANNED 04/17/2020 8:48 EDT ECG REPORT - SCANNED 03/27/2020 10:21 EDT ECG REPORT - SCANNED 03/27/2020 10:21 EDT POCT GLUCOSE, INTERFACED Routine 03/22/2020 11:18 Results for this EDT procedure are i n the results section. POCT GLUCOSE, INTERFACED Routine 03/22/2020 5:55 Results for this EDT procedure are i n the results section. POCT GLUCOSE, INTERFACED Routine 03/21/2020 20:11 Results for this EDT procedure are i n the results section. POCT GLUCOSE, INTERFACED Routine 03/21/2020 17:21 Results for this EDT procedure are i n the results section. MR CARDIAC W WO CONTRAST Routine 03/21/2020 14:43 Results for this EDT procedure are i n the results section. XR ORBITS FOR FOREIGN STAT 03/21/2020 13:30 Re sults for this BODY EDT procedure are i n the results section. POCT GLUCOSE, INTERFACED Routine 03/21/2020 12:03 Results for this EDT procedure are i n the results section. COMPLETE BLOOD COUNT Routine 03/21/2020 5:59 Resu lts for this EDT procedure are i n the results section. CREATININE Routine 03/21/2020 5:59 Results for this EDT procedure are i n the results section. ELECTROLYTES Routine 03/21/2020 5:59 Results for this EDT procedure are i n the results section. POCT GLUCOSE, INTERFACED Routine 03/21/2020 5:58 Results for this EDT procedure are i n the results section. POCT GLUCOSE, INTERFACED Routine 03/20/2020 20:23 Results for this EDT procedure are i n the results section. POCT GLUCOSE, INTERFACED Routine 03/20/2020 16:53 Results for this EDT procedure are i n the results section. POCT GLUCOSE, INTERFACED Routine 03/20/2020 12:23 Results for this EDT procedure are i n the results section. POCT GLUCOSE, INTERFACED Routine 03/20/2020 6:00 Results for this EDT procedure are i n the results section. POCT GLUCOSE, INTERFACED Routine 03/20/2020 3:08 Results for this EDT procedure are i n the results section. TROPONIN I Routine 03/20/2020 2:11 Results for this EDT procedure are i n the results section. COMPLETE BLOOD COUNT Routine 03/20/2020 2:11 Resu lts for this EDT procedure are i n the results section. CREATININE Routine 03/20/2020 2:11 Results for this EDT procedure are i n the results section. ELECTROLYTES Routine 03/20/2020 2:11 Results for this EDT procedure are i n the results section. POCT GLUCOSE, INTERFACED Routine 03/19/2020 23:37 Results for this EDT procedure are i n the results section. POCT GLUCOSE, INTERFACED Routine 03/19/2020 21:00 Results for this EDT procedure are i n the results section. POCT GLUCOSE, INTERFACED Routine 03/19/2020 18:00 Results for this EDT procedure are i n the results section. TROPONIN I Routine 03/19/2020 17:56 Results for this EDT procedure are i n the results section. CARDIAC CATHETERIZATION Routine 03/19/2020 16:03 Results for this EDT procedure are i n the results section. TRANSTHORACIC ECHO (TTE) Routine 03/19/2020 13:58 Results for this COMPLETE EDT procedure are i n the results section. POCT GLUCOSE, INTERFACED Routine 03/19/2020 11:52 Results for this EDT procedure are i n the results section. HEPARIN LEVEL - STAT 03/19/2020 9:02 Results f or this UNFRACTIONATED HEPARIN EDT proce dure are in the results section. TROPONIN I Routine 03/19/2020 9:01 Results for this EDT procedure are i n the results section. POCT GLUCOSE, INTERFACED Routine 03/19/2020 6:51 Results for this EDT procedure are i n the results section. COMPLETE BLOOD COUNT Routine 03/19/2020 5:46 Resu lts for this EDT procedure are i n the results section. POCT GLUCOSE, INTERFACED Routine 03/19/2020 2:56 Results for this EDT procedure are i n the results section. TROPONIN I Routine 03/19/2020 1:51 Results for this EDT procedure are i n the results section. HEPARIN LEVEL - STAT 03/19/2020 1:51 Results f or this UNFRACTIONATED HEPARIN EDT proce dure are in the results section. COMPLETE BLOOD COUNT Routine 03/19/2020 1:51 Resu lts for this EDT procedure are i n the results section. HEMOGLOBIN A1C Add-On 03/19/2020 1:51 Results fo r this EDT procedure are i n the results section. CREATININE Routine 03/19/2020 1:51 Results for this EDT procedure are i n the results section. ELECTROLYTES Routine 03/19/2020 1:51 Results for this EDT procedure are i n the results section. EKG 12-LEAD Routine 03/19/2020 0:10 Results for this EDT procedure are i n the results section. POCT GLUCOSE, INTERFACED Routine 03/18/2020 23:20 Results for this EDT procedure are i n the results section. documented in this encounter Results CARDIAC EVENT MONITOR (04/23/2020 8:54 EDT) Specimen Narrative GINNY - 04/23/2020 10:31 EDT Baseline rhythm is sinus No arrhythmias No symptoms reported Performing Organization Address City/State/ZIP Code Phon e Number DEVICECHECK (ABNORMAL) POCT GLUCOSE, INTERFACED (03/22/2020 11:18 EDT) Glucose, POC 135 (H) 70 - 100 [facility] mg/dL LABORATORY prosthetic technician ID [id number] [facility] LABORATORY SERVICES HN LAB POC COMMENT Test Performed by [facility] AudinateE R (GLUCOSE) Nursing Services LABORATORY SERVICES Specimen Blood - Capillary blood (substance) Performing Organization Address [facility]/ZIP Code Phon e Number [facility] LABORATORY [address] [place] [address] SERVICES (ABNORMAL) POCT GLUCOSE, INTERFACED (03/22/2020 5:55 EDT) Glucose, POC 131 (H) 70 - 100 [facility] mg/dL LABORATORY prosthetic technician ID [id number] [facility] LABORATORY SERVICES HN LAB POC COMMENT Test Performed by [facility] Testlio R (GLUCOSE) Nursing Services LABORATORY SERVICES Specimen Blood - Capillary blood (substance) Performing Organization Address City/[facility]/ZIP Code Phon e Number [facility] LABORATORY [address] [place] [address] SERVICES POCT GLUCOSE, INTERFACED (03/21/2020 20:11 EDT) Glucose, POC 94 70 - 100 [facility] mg/dL LABORATORY prosthetic technician ID [id number] [facility] LABORATORY SERVICES HN LAB POC COMMENT Test Performed by [facility] AudinateE R (GLUCOSE) Nursing Services LABORATORY SERVICES Specimen Blood - Capillary blood (substance) Performing Organization Address City/[facility]/ZIP Code Phon e Number [facility] LABORATORY [address] [place] [address] SERVICES (ABNORMAL) POCT GLUCOSE, INTERFACED (03/21/2020 17:21 EDT) Glucose, POC 199 (H) 70 - 100 [facility] mg/dL LABORATORY prosthetic technician ID [id number] [facility] LABORATORY SERVICES HN LAB POC COMMENT Test Performed by [facility] VocoMD ANDIE Banda (GLUCOSE) Nursing Services LABORATORY SERVICES Specimen Blood - Capillary blood (substance) Performing Organization Address City/State/ZIP Code Phon e Number [facility] LABORATORY [address] [place] [address] SERVICES MR CARDIAC W WO CONTRAST (03/21/2020 14:43 EDT) Anatomical Region Laterality Modality Chest Magnetic Resonance Specimen Impressions [facility] RADIOLOGY [facility] - 03/21/2020 17:25 EDT 1. ?? Small subendocardial infarction involving the basilar inferior wall of the left ventricle. 2. ??Mildly reduced left ventricular eje ction fraction of 50%. I have personally reviewed the images an d the above interpretation and agree with the findings. Narrative [facility] RADIOLOGY [facility] - 03/21/2020 17:25 EDT MR CARDIAC W WO CONTRAST ??03/21/2020 1:00 PM Clinical History/Comments: Ventricular arrhythmia Technique: Multiplanar steady state free precession sequences of the heart were performed. ??Additionally, following IV gadolinium administration, rest perfusion and multi-planar delayed inversion recovery sequences of the heart were performed. Exam description: ??Cardiac MRI for morp hology and function with and without contrast and further sequences. Comparison: None. Findings: LEFT VENTRICLE: Left global ventricular systolic functio n is minimally reduced with an LVEF of 50%. ?? Regional Wall Motion: Base: Minimal hypokinesis inferior wall. Mid heart: normal. [place]: normal. The left ventricular chamber is normal w ith an end diastolic volume of 158 ml and an end systolic volume of 80 ml. ??The left ventricular end diastolic diameter is 5.3 cm. ??The myocardial wall thickness is 1.1 cm. RIGHT VENTRICLE: Right ventricular systolic function, reg ional wall motion, chamber size and wall thickness are normal. ATRIA: The left atrium measures 3.5 cm. The right atrium is normal. VALVES: The aortic, pulmonic, tricuspid and mitr al valve are normal PERICARDIUM: The pericardium is normal. AORTA: The ascending aorta measures 3.3 cm. PERFUSION: The rest perfusion sequences following I V gadolinium administration are normal. VIABILITY: The delayed inversion recovery sequence s show a focal region of subendocardial delayed enhancement involving the inferior basal portion of the left ventricle (series 1401, #3). The remainder of the myocardium demonstrates normal suppression. ANCILLARY FINDINGS: None Procedure Note Sebastian Estrada MD - 03/21/2020 MR CARDIAC W WO CONTRAST 03/21/2020 1:00 P M Clinical History/Comments: Ventricular arrhythmia Technique: Multiplanar steady state free precession sequences of the heart were performed. Additionally, following IV gadolinium administration, rest perfusion and multi- planar delayed inversion recovery sequences of the heart were performed. Exam description: Cardiac MRI for morpho logy and function with and without contrast and further sequences. Comparison: None. Findings: LEFT VENTRICLE: Left global ventricular systolic functio n is minimally reduced with an LVEF of 50%. Regional Wall Motion: Base: Minimal hypokinesis inferior wall. Mid heart: normal. [place]: normal. The left ventricular chamber is normal w ith an end diastolic volume of 158 ml and an end systolic volume of 80 ml. The left ventricular end diastolic diameter is 5.3 cm. The myocardial wall thickness is 1.1 cm. RIGHT VENTRICLE: Right ventricular systolic function, reg ional wall motion, chamber size and wall thickness are normal. ATRIA: The left atrium measures 3.5 cm. The right atrium is normal. VALVES: The aortic, pulmonic, tricuspid and mitr al valve are normal PERICARDIUM: The pericardium is normal. AORTA: The ascending aorta measures 3.3 cm. PERFUSION: The rest perfusion sequences following I V gadolinium administration are normal. VIABILITY: The delayed inversion recovery sequence s show a focal region of subendocardial delayed enhancement involving the inferior basal portion of the left ventricle (series 1401, #3). The remainder of the myocardium demonstrates normal suppression. ANCILLARY FINDINGS: None IMPRESSION 1. Small subendocardial infarction invol ving the basilar inferior wall of the left ventricle. 2. Mildly reduced left ventricular eject ion fraction of 50%. I have personally reviewed the images an d the above interpretation and agree with the findings. Performing Organization Address City/State/ZIP Code Phon e Number [facility] XR ORBITS FOR FOREIGN BODY (03/21/2020 13:30 EDT) Anatomical Region Laterality Modality Computed Radiography Specimen Narrative [facility] - 03/21/2020 13:34 EDT XR ORBITS FOR FOREIGN BODY ??03/21/2020 1:25 PM Clinical History/Comments: pre mri orbits for foreign body Comparisons: None. TECHNIQUE: PA and lateral views of the o rbits. FINDINGS: No radiopaque foreign bodies are present within the orbits. The paranasal sinuses and mastoid air cells are clear. Procedure Note Sebastian Estrada MD - 03/21/2020 XR ORBITS FOR FOREIGN BODY 03/21/2020 1:25 PM Clinical History/Comments: pre mri orbits for foreign body Comparisons: None. TECHNIQUE: PA and lateral views of the o rbits. FINDINGS: No radiopaque foreign bodies are present within the orbits. The paranasal sinuses and mastoid air cells are clear. Performing Organization Address [facility] Phon e Number [facility] (ABNORMAL) POCT GLUCOSE, INTERFACED (03/21/2020 12:03 EDT) Glucose, POC 138 (H) 70 - 100 [facility] mg/dL LABORATORY prosthetic technician ID [id number] [facility] LABORATORY SERVICES HN LAB POC COMMENT Test Performed by [facility] ANDIE Banda (GLUCOSE) Nursing Services LABORATORY SERVICES Specimen Blood - Capillary blood (substance) Performing Organization Address [facility] Phon e Number [facility] LABORATORY [address] [place] [address] SERVICES CREATININE (03/21/2020 5:59 EDT) Creatinine 0.71 0.66 - 1.25 [facility] mg/dL LABORATORY SERVICES eGFR 98Comment: eGFR >60 [facility] calculated using mL/min/1.73m2 LABORATORY SERVICES CKD-EPI equation for non- Americans. Multiply eGFR by 1.16 for patients. Specimen Blood - Venous blood (substance) Performing Organization Address [facility] Phon e Number [facility] LABORATORY [address] [place] [address] SERVICES ELECTROLYTES (03/21/2020 5:59 EDT) Pathologist Sig nature Sodium 141 136 - 145 mEq/L [facility] LABORA TORY SERVICES Potassium 4.7 3.5 - 5.0 mEq/L [facility] LABORA TORY SERVICES Chloride 100 96 - 110 mEq/L [facility] LABORAT ORY SERVICES CO2 Total 28 22 - 32 mEq/L [facility] LABORATO RY SERVICES Specimen Blood - Venous blood (substance) Performing Organization Address [facility]/ZIP [facility] [place] Phon e Number [facility] [address] [place] [address] SERVICES COMPLETE BLOOD COUNT (03/21/2020 5:59 EDT) Pathologist Sig nature WBC 6.44 4.00 - 10.40 K/cmm [facility] LABOR[facility] SERVICES RBC 5.16 4.36 - 5.78 M/cmm [facility] SERVICES Hemoglobin 14.4 13.8 - 17.3 gm/dL [facility] SERVICES HCT 43.1 39.5 - 50.2 % [facility] LABOR[facility] SERVICES MCV 84 81 - 95 fl [facility] LABOR[facility] SERVICES MCH 27.9 27.6 - 33.0 pg [facility] LABOR[facility] SERVICES MCHC 33.4 32.8 - 36.4 gm/dL [facility] LAB[facility] SERVICES RDW-CV 13.5 <14.2 % [facility] LABOR[facility] SERVICES RDW-SD 41.6 <46.0 fl [facility] LABOR[facility] SERVICES PLT 223 141 - 377 K/cmm [facility] LABORAT[facility] SERVICES MPV 10.1 9.5 - 12.7 fl [facility] LABORAT[facility] SERVICES Specimen Blood - Venous blood (substance) Performing Organization Address [facility] Phon e Number [facility]OR[facility] [address] [place] [address] SERVICES (ABNORMAL) POCT GLUCOSE, INTERFACED (03/21/2020 5:58 EDT) Glucose, POC 117 (H) 70 - 100 [facility] mg/dL LABORATORY prosthetic technician ID [id number] [facility] LABORATORY SERVICES HN LAB POC COMMENT Test Performed by [facility] Cube [employer] R (GLUCOSE) Nursing Services LABORATORY SERVICES Specimen Blood - Capillary blood (substance) Performing Organization Address City/[facility]/ZIP Code Phon e Number [facility] [address] [place] [address] SERVICES (ABNORMAL) POCT GLUCOSE, INTERFACED (03/20/2020 20:23 EDT) Glucose, POC 109 (H) 70 - 100 [facility] mg/dL LABORATORY prosthetic technician ID [id number] [facility] LABORATORY SERVICES HN LAB POC COMMENT Test Performed by [facility] [employer]ube [employer] R (GLUCOSE) Nursing Services LABORATORY SERVICES Specimen Blood - Capillary blood (substance) Performing Organization Address City/[facility]/ZIP [facility] [place]on [place] Number [facility] [address] [place] [address] SERVICES (ABNORMAL) POCT GLUCOSE, INTERFACED (03/20/2020 16:53 EDT) Glucose, POC 119 (H) 70 - 100 [facility] mg/dL LABORATORY prosthetic technician ID [id number] [facility] LABORATORY SERVICES HN LAB POC COMMENT Test Performed by [facility] [employer]ube [employer] R (GLUCOSE) Nursing Services LABORATORY SERVICES Specimen Blood - Capillary blood (substance) Performing Organization Address City/[facility]/ZIP Code Phon e Number [facility] [address] [place] [address] SERVICES (ABNORMAL) POCT GLUCOSE, INTERFACED (03/20/2020 12:23 EDT) Glucose, POC 115 (H) 70 - 100 [facility] mg/dL LABORATORY prosthetic technician ID [id number] [facility] LABORATORY SERVICES HN LAB POC COMMENT Test Performed by [facility] [employer] R (GLUCOSE) Nursing Services LABORATORY SERVICES Specimen Blood - Capillary blood (substance) Performing Organization Address City/[facility]/ZIP Code Phon e Number [facility] [address] [place] [address] SERVICES (ABNORMAL) POCT GLUCOSE, INTERFACED (03/20/2020 6:00 EDT) Glucose, POC 103 (H) 70 - 100 [facility] mg/dL LABORATORY prosthetic technician ID [id number] [facility] LABORATORY SERVICES HN LAB POC COMMENT Test Performed by [facility] [employer]ube [employer] R (GLUCOSE) Nursing Services LABORATORY SERVICES Specimen Blood - Capillary blood (substance) Performing Organization Address City/State/ZIP Code Phon e Number [facility] [address] [place] [address] SERVICES (ABNORMAL) POCT GLUCOSE, INTERFACED (03/20/2020 3:08 EDT) Glucose, POC 108 (H) 70 - 100 [facility] mg/dL LABORATORY prosthetic technician ID [id number] [facility] LABORATORY SERVICES HN LAB POC COMMENT Test Performed by [facility] [employer] R (GLUCOSE) Nursing Services LABORATORY SERVICES Specimen Blood - Capillary blood (substance) Performing Organization Address City/[facility]/ZIP Code Phon e Number [facility]OR[facility] [address] [place] [address] SERVICES (ABNORMAL) TROPONIN I (03/20/2020 2:11 EDT) Pathologist Sig nature Troponin I (ng/mL) 0.140 (H) <0.034 ng/mL [facility] LABORATORY SERVICES Specimen Blood - Venous blood (substance) Narrative [facility] LABORATORY SERVICES - 03/20/2020 2:54 EDT The results of this assay can be falsely lowered due to the consumption of Biotin. Performing Organization Address [facility] Code Phon e Number [facility]OR[facility]ORY [address] [place] [address] SERVICES CREATININE (03/20/2020 2:11 EDT) Creatinine 0.79 0.66 - 1.25 [facility] mg/dL LABORATORY SERVICES eGFR 94Comment: eGFR >60 [facility] calculated using mL/min/1.73m2 LABORATORY SERVICES CKD-EPI equation for non- Americans. Multiply eGFR by 1.16 for patients. Specimen Blood - Venous blood (substance) Performing Organization Address [facility] Phon e Number [facility] [address] [place] [address] SERVICES ELECTROLYTES (03/20/2020 2:11 EDT) Pathologist Sig nature Sodium 138 136 - 145 mEq/L [facility] LABORA TORY SERVICES Potassium 4.3 3.5 - 5.0 mEq/L [facility] LABORA TORY SERVICES Chloride 99 96 - 110 mEq/L [facility] LABORAT ORY SERVICES CO2 Total 30 22 - 32 mEq/L [facility] LABORATO RY SERVICES Specimen Blood - Venous blood (substance) Performing Organization Address [facility] Phon e Number [facility] [address] [place] [address] SERVICES COMPLETE BLOOD COUNT (03/20/2020 2:11 EDT) Pathologist Sig nature WBC 8.07 4.00 - 10.40 K/cmm [facility] LABORATORY SERVICES RBC 5.09 4.36 - 5.78 M/cmm [facility] LABORATORY SERVICES Hemoglobin 14.1 13.8 - 17.3 gm/dL [facility] LABORATORY SERVICES HCT 42.2 39.5 - 50.2 % [facility] LABORATORY SERVICES MCV 83 81 - 95 fl [facility] LABORATORY SERVICES MCH 27.7 27.6 - 33.0 pg [facility] LABORATORY SERVICES MCHC 33.4 32.8 - 36.4 gm/dL [facility] LABORATORY SERVICES RDW-CV 13.7 <14.2 % [facility] LABORATORY SERVICES RDW-SD 41.1 <46.0 fl [facility] LABORATORY SERVICES PLT 212 141 - 377 K/cmm [facility] LABORATORY SERVICES MPV 10.2 9.5 - 12.7 fl [facility] LABORATORY SERVICES Specimen Blood - Venous blood (substance) Performing Organization Address City/[facility]/ZIP Code Phon e Number [facility] [address] [place] [address] SERVICES POCT GLUCOSE, INTERFACED (03/19/2020 23:37 EDT) Glucose, POC 79 70 - 100 [facility] mg/dL LABORATORY prosthetic technician ID [id number] [facility] LABORATORY SERVICES HN LAB POC COMMENT Test Performed by [facility] AudinateE R (GLUCOSE) Nursing Services LABORATORY SERVICES Specimen Blood - Capillary blood (substance) Performing Organization Address [facility]/ZIP Code Phon e Number [facility] [address] [place] [address] SERVICES (ABNORMAL) POCT GLUCOSE, INTERFACED (03/19/2020 21:00 EDT) Glucose, POC 144 (H) 70 - 100 [facility] mg/dL LABORATORY prosthetic technician ID [id number] [facility] LABORATORY SERVICES HN LAB POC COMMENT Test Performed by [facility] [employer] R (GLUCOSE) Nursing Services LABORATORY SERVICES Specimen Blood - Capillary blood (substance) Performing Organization Address City/[facility]/ZIP Code Phon e Number [facility] [address] [place] [address] SERVICES POCT GLUCOSE, INTERFACED (03/19/2020 18:00 EDT) Glucose, POC 81 70 - 100 [facility] mg/dL LABORATORY prosthetic technician ID [id number] [facility] LABORATORY SERVICES HN LAB POC COMMENT Test Performed by [facility] Testlio R (GLUCOSE) Nursing Services LABORATORY SERVICES Specimen Blood - Capillary blood (substance) Performing Organization Address City/[facility]/ZIP Code Phon e Number [facility] [address] [place] [address] SERVICES (ABNORMAL) TROPONIN I (03/19/2020 17:56 EDT) Pathologist Sig nature Troponin I (ng/mL) 0.151 (H) <0.034 ng/mL [facility] LABORATORY SERVICES Specimen Blood - Venous blood (substance) Narrative [facility] LABORATORY SERVICES - 03/19/2020 18:53 EDT The results of this assay can be falsely lowered due to the consumption of Biotin. Performing Organization Address City/State/ZIP Code Phon e Number [facility]OR[facility] [address] [place] [address] SERVICES LEFT HEART CATH (03/19/2020 16:03 EDT) Specimen Narrative [facility] CARDIOLOGY MAIN [facility] S - 03/21/2020 10:30 EDT Cardiology [address] [place] [address] Catheterization Laboratory Study Patient: Claudia Batista ? Study Date: ?03/19/2020 ?Accession #: ? [id number] : ? 1955 Referring: Joesph Wesley Diagnostic Attending: ??Nash Herron Interventional Attending: ?? Lisa Herron Diagnostic Fellow: Luis Garcia Interventional Fellow: Chaparrita Mclain ATTESTATION: IDr. Luis was the initial aut hor of this report. Dr. Nash Herron was present and supervising for the entire procedure. I, Dr. Nash Herron have reviewed and agreed w ith the findings of this report. PROCEDURE PLAN: A diagnostic study was performed without intervention. RESEARCH STUDY: Patient is not enrolled in any research studies. IMPRESSIONS: Study suggests coronary artery disease, status post stent placement and multiple percutaneous interventions in l eft anterior descending coronary and right coronary artery , with minimal restenosis grossly unchanged from prior study. SUMMARY: 1. HPI and indications: Dyspnea. 2. Coronary arteries: The coronary circu lation is right dominant. 3. Left main: Minor luminal irregulariti es. 4. LAD: Proximal vessel lesion: There is a 30% stenosis. Patent stents ?? with minimal ISR. Slow flow initiall y with rapid improvement to ?? normal with IC NTG. 5. Ramus intermedius: Minor luminal irre gularities. 6. Left circumflex: Proximal vessel lesi on: There is a 30% stenosis. ?? Distal vessel lesion: There is a 50% stenosis. 7. Right coronary: Proximal vessel lesio n: There is minimal in-stent ?? restenosis. RECOMMENDATIONS: 1. ACC recommendation: Medical therapy a nd/or counseling. 2. Consider vasodilators (maybe NTG patc h? Could not tolerate oral ?? isosorbide previously). HISTORY: Dyspnea. ??PMH: ?? Myocardial infarction . ??Risk factors: ??Family history of coronary artery disease. Hypertension . Diabetes mellitus; on therapy with insulin. Dyslipidemia. ??Allergies: ??No known allergies. LABS, PRIOR TESTS, PROCEDURES AND SURGER Y: Serum creatinine (current admission) of 0.69 mg/dl. ??Platelet count of 256 th/ul. ??Hematocrit of 42.2 %. ??Hem oglobin (pre-procedure) of 14.4 g/dl. ??Catheterization with coronary in tervention. STUDY DATA: Study status: ??Cardiac cath: urgent. ?? Patient status: ??Inpatient. Location: ??Catheterization laboratory. Sex: male. Patient is 64yr old. Height: 175.3cm. Weight: 103kg. BSA: 2.2 7m^2. Procedures performed: ?Right radi al artery access. ?Left coronary angiography. ?Right coronary angiogr aphy. ANESTHESIA: Conscious sedation by cardiology staff. PROCEDURE: 1. Initial setup. The patient was jameson t to the laboratory in the ?? fasting state. A baseline ECG was re corded. Surface ECG leads, ?? automatic cuff blood pressure measur ements, and pulse oximetric ?? signals were monitored. 2. Skin preparation. The planned punctur e sites were prepped with ?? chlorhexidine and draped in the usua l sterile manner. 3. Local anesthesia. Using 2% Lidocaine, local anesthetic was ?? administered to the access site(s). 4. Right radial artery access. A 6 Fr/10 /.021 [place] [employer] SLENDER ?? sheath was advanced into the vessel. 5. Selective left coronary angiography. The procedure was attempted ?? using a 5 FR Pedro Luis catheter, but pro per positioning could not be ?? achieved, and the catheter was excha nged for a 5 FR Pedro Luis catheter ?? which was advanced into the left cor onary vessel ostium under ?? fluoroscopic guidance. Contrast was injected. Images were obtained in ?? multiple projections. 6. Selective right coronary angiography. A 5 FR Pedro Luis catheter was ?? advanced into the right coronary ves freyd ostium under fluoroscopic ?? guidance. Contrast was injected. Rut ges were obtained in multiple ?? projections. 7. Right radial artery hemostasis. Mecha nical compression was applied. STUDY COMPLETION: The estimated blood loss was 10ml. All c atheters inserted during the procedure were removed. The patient tianna rated the procedure well and was discharged from the lab. There were no c omplications. ??Contrast: Isovue 50ml (total dose). ??Isovue 150ml (wasted). ??Fluoroscopy time: 3.6min. ??Fluoroscopy dose: ??33.6cGy. CORONARY ARTERIES: The coronary circulation is right domina nt. Left main: ??Minor luminal irregularitie s. LAD: ??Proximal vessel lesion: There is a 30% stenosis. Patent stents with minimal ISR. Slow flow initially wi th rapid improvement to normal with IC NTG. Ramus intermedius: ??Minor luminal irreg ularities. Left circumflex: ??Proximal vessel lesio n: There is a 30% stenosis. Distal vessel lesion: There is a 50% angy nosis. unchanged. Right coronary: ??Proximal vessel lesion : There is minimal in-stent restenosis. HEMODYNAMICS: None. + + + Arterial pressure s/d (m) 96/64 (78) + + + * Electronically signed by Nash Herron Jr., MD 2020-03-21 10:30 Performing Organization Address City/State/ZIP Code Phon e Number [facility] TRANSTHORACIC ECHO (TTE) COMPLETE W/DOPPLER W/CF W/ CONTRAST (03/19/2020 13:58 EDT) Pathologist Sig nature [place] Atrial Length A2C 5.2 cm [facility] [place] Atrial Area A4C 15.5 cm2 [facility] [place] ID/bsa, A-P 1.7 cm/m2 [facility] FS 27 28 - 44 % [facility] [place] ID, A-P, ES 3.6 cm [facility] LV PW thickness, ED, PLAX 1.0 0.6 - 1.1 cm [facility] Aortic root ID 3.3 cm [facility] LV ejection fraction, 1-p 53 % [facility] A4C LVOT mean gradient, S 2 mmHg [facility] AV LVOT peak gradient 6 mmHg [facility] LV e', lateral 0.08 m/s [facility] Mitral deceleration time 183 ms [facility] LVOT area 3.5 cm2 [facility] LVOT peak velocity, S 1.2 m/s [facility] LVOT VTI, S 23.9 cm [facility] Stroke volume (SV), LVOT 83 ml [facility] DP LVOT mean velocity, S 0.7 m/s [facility] Mitral E-wave peak 0.7 m/s [facility] velocity Mitral A-wave peak 0.9 m/s [facility] velocity LV Systolic Volume Index 22.0 mL/m2 [facility] LV Diastolic Volume Index 54.0 mL/m2 [facility] [place] Atrial Length A4C 5.2 cm [facility] LVOT ID, S 2.1 cm [facility] EF 59 % [facility] LA volume, ES, BP 53.0 ml [facility] LA volume/bsa, ES, A4C 17.0 ml/m2 [facility] LA volumes, ES, A4C 37.0 ml [facility] LA volume/bsa, ES, BP 24.0 ml/m2 [facility] LV Systolic Volume 48 mL [facility] LV Diastolic Volume 117 mL [facility] Stroke index (SV/bsa) LVOT 38.0 ml/m2 [facility] DP Interventricular Septum to 0.9 [facility] Posterior Wall Thickness Ratio IVS thickness, ED, PLAX 0.9 cm [facility] RE LV e', medial 0.06 m/s [facility] LV e', average 0.07 m/s [facility] Pulmonic valve mean 1 cm/s [facility] velocity, S Ascending aorta ID, a-p 3.1 cm [facility] RE [place] Atrial Area A2C 15.5 cm2 [facility] LA/aortic root ratio 1.09 [facility] LV ID, ED, PLAX 4.9 3.5 - 6.0 cm [facility] LV ID, ES, PLAX 3.6 2.1 - 4.0 cm [facility] LV end diastolic volume 111 ml [facility] RE 1-p A2C LV ejection fraction, 1-p 65 % [facility] A2C LV E/e', lateral 9.0 [facility] LV E/e', medial 9.0 [facility] LV E/e', average 9 [facility] LV ejection fraction, 1-p 27 % [facility] A4C LV end-diastolic volume, 121 ml [facility] ARE 1-p A4C Specimen Narrative [facility] - 03/19/2020 14:22 E DT ?Left Ventricle: The left ventricular cavity was normal in size. ?Left Ventricle: Left ventricular systolic function was normal with an ejection fraction of 55-60%. ?Left Ventricle: Left ventricular wall motion was normal; there were no regional wall motion abnormalities. ?Right Ventricle: The right ventricular cavity was normal in size. ?Right Ventricle: Right ventricular systolic function was normal. Performing Organization Address City/State/ZIP Code [facility]on [facility] Number [facility] POCT GLUCOSE, INTERFACED (03/19/2020 11:52 EDT) Glucose, POC 124 (H) 70 - 100 [facility] mg/dL LABORATORY prosthetic technician ID [id number] [facility] LABORATORY SERVICES HN LAB POC COMMENT Test Performed by [facility] Banda (GLUCOSE) Nursing Services LABORATORY SERVICES Specimen Blood - Capillary blood (substance) Performing Organization Address [facility] Phon e Number [facility] LABOR[facility]ORY [address] [place] [address] SERVICES HEPARIN LEVEL - UNFRACTIONATED HEPARIN (03/19/2020 9:02 EDT) Heparin 0.36Comment: Therapeutic [facility] MEDICAL Level-UFH Unfractionated Range: 0.30 - CENTER heparin therapeutic 0.70 IU/mL LABORATORY range = 0.3-0.7 SERVICES IU/ml - This test is not intended for monitoring direct Xa inhibitors, direct thrombin inhibitors, or fondaparinux.- Exogenous ATIII is NOT supplied in this assay. For unexpected or persistently low levels, consider measuring patient's ATIII level. Results will be overestimated in the presence of direct Xa inhibitors (rivaroxaban, apixaban, edoxaban). Specimen Blood - Venous blood (substance) Performing Organization Address [facility] Code Phon e Number [facility]OR[facility] [address] [place] [address] SERVICES (ABNORMAL) TROPONIN I (03/19/2020 9:01 EDT) Pathologist Sig nature Troponin I (ng/mL) 0.191 (H) <0.034 ng/mL [facility] LABORATORY SERVICES Specimen Blood - Venous blood (substance) Narrative [facility] LABORATORY SERVICES - 03/19/2020 10:49 EDT The results of this assay can be falsely lowered due to the consumption of Biotin. Performing Organization Address City/[facility]/ZIP Code Phon e Number [facility] LABOR[facility] [address] [place] [address] SERVICES (ABNORMAL) POCT GLUCOSE, INTERFACED (03/19/2020 6:51 EDT) Glucose, POC 128 (H) 70 - 100 [facility] mg/dL LABORATORY prosthetic technician ID [id number] [facility] LABORATORY SERVICES HN LAB POC COMMENT Test Performed by [facility] [employer] R (GLUCOSE) Nursing Services LABORATORY SERVICES Specimen Blood - Capillary blood (substance) Performing Organization Address City/[facility]/ZIP Code Phon e Number [facility] LABOR[facility]ORY [address] [place] [address] SERVICES COMPLETE BLOOD COUNT (03/19/2020 5:46 EDT) Pathologist Sig nature WBC 7.59 4.00 - 10.40 K/cmm [facility] LABORATORY SERVICES RBC 5.13 4.36 - 5.78 M/cmm [facility] LABORATORY SERVICES Hemoglobin 14.4 13.8 - 17.3 gm/dL [facility] LABORATORY SERVICES HCT 42.2 39.5 - 50.2 % [facility] LABORATORY SERVICES MCV 82 81 - 95 fl [facility] LABORATORY SERVICES MCH 28.1 27.6 - 33.0 pg [facility] LABORATORY SERVICES MCHC 34.1 32.8 - 36.4 gm/dL [facility] LABORATORY SERVICES RDW-CV 13.8 <14.2 % [facility] LABORATORY SERVICES RDW-SD 40.7 <46.0 fl [facility] LABORATORY SERVICES PLT 256 141 - 377 K/cmm [facility] LABORATORY SERVICES MPV 11.1 9.5 - 12.7 fl [facility] LABORATORY SERVICES Specimen Blood - Venous blood (substance) Performing Organization Address City/[facility] Code Phon e Number [facility] LABORATORY [address] [place] [address] SERVICES POCT GLUCOSE, INTERFACED (03/19/2020 2:56 EDT) Glucose, POC 88 70 - 100 [facility] mg/dL LABORATORY prosthetic technician ID [id number] [facility] LABORATORY SERVICES HN LAB POC COMMENT Test Performed by [facility] (GLUCOSE) Nursing Services LABORATORY SERVICES Specimen Blood - Capillary blood (substance) Performing Organization Address City/[facility]/ZIP Code Phon e Number [facility] LABORATORY [address] [place] [id number] SERVICES (ABNORMAL) HEMOGLOBIN A1C (03/19/2020 1:51 EDT) Hemoglobin A1c 7.4 (H) <5.7 % [facility] Comment: LABORATORY SERVICES Glycemic Status References: Normal: ??<5.7% Pre-Diabetes: ??5.7% - 6.4% Diagnostic of Diabetes: ??> or = 6.5% (if confirmed) Goals for glycemic control in diabetics (ADA 2017): <7.0% target for non adults with diabetes. <7.5% target for children and adolescents with Type I Diabetes. More or less stringent targets may be appropriate for individual patients. Est Avg Glucose 166Comment: The eAG mg/dL [facility] represents the A1c LABORATORY SERVICES result expressed as average glucose in mg/dL. Specimen Blood - Venous blood (substance) Performing Organization Address [facility] [employer] [facility] e [facility] LABORATORY [address] [place] [address] SERVICES (ABNORMAL) TROPONIN I (03/19/2020 1:51 EDT) Pathologist Sig nature Troponin I (ng/mL) 0.214 (H) <0.034 ng/mL [facility] LABORATORY SERVICES Specimen Blood - Venous blood (substance) Narrative [facility] LABORATORY SERVICES - 03/19/2020 2:32 EDT The results of this assay can be falsely lowered due to the consumption of Biotin. Performing Organization Address [facility] [employer] [facility] [employer] e Number [facility] LABORATORY [address] [place] [address] SERVICES CREATININE (03/19/2020 1:51 EDT) Creatinine 0.69 0.66 - 1.25 [facility] mg/dL LABORATORY SERVICES eGFR 100Comment: eGFR >60 [facility] calculated using mL/min/1.73m2 LABORATORY SERVICES CKD-EPI equation for non- Americans. Multiply eGFR by 1.16 for patients. Specimen Blood - Venous blood (substance) Performing Organization Address [facility] Phon e Number [facility] [address] [place] [address] SERVICES ELECTROLYTES (03/19/2020 1:51 EDT) Pathologist Sig nature Sodium 140 136 - 145 mEq/L [facility] SERVICES Potassium 3.8 3.5 - 5.0 mEq/L [facility] SERVICES Chloride 100 96 - 110 mEq/L [facility] ORY SERVICES CO2 Total 28 22 - 32 mEq/L [facility] RY SERVICES Specimen Blood - Venous blood (substance) Performing Organization Address City/State/ZIP Code Phon e Number [facility] [address] [place] [address] SERVICES COMPLETE BLOOD COUNT (03/19/2020 1:51 EDT) Pathologist Sig nature WBC 8.25 4.00 - 10.40 K/cmm [facility] SERVICES RBC 5.05 4.36 - 5.78 M/cmm [facility] SERVICES Hemoglobin 14.4 13.8 - 17.3 gm/dL [facility] SERVICES HCT 41.5 39.5 - 50.2 % [facility] SERVICES MCV 82 81 - 95 fl [facility] SERVICES MCH 28.5 27.6 - 33.0 pg [facility] SERVICES MCHC 34.7 32.8 - 36.4 gm/dL [facility] SERVICES RDW-CV 13.7 <14.2 % [facility] SERVICES RDW-SD 40.5 <46.0 fl [facility] SERVICES PLT 234 141 - 377 [facility] [place] [facility] MPV 10.0 9.5 - 12.7 fl [facility] SERVICES Specimen Blood - Venous blood (substance) Performing Organization Address City/[facility]/ZIP Code Phon e Number [facility] [address] [place] [address] SERVICES HEPARIN LEVEL - UNFRACTIONATED HEPARIN (03/19/2020 1:51 EDT) Heparin Level-UFH 0.24 Therapeutic Range: [facility] R 0.30 - 0.70 IU/mL LABORATORY SERVICES Specimen Blood - Venous blood (substance) Narrative [facility] SERVICES - 03/19/2020 2:16 EDT Sample retested, result confirmed Performing Organization Address City/State/ZIP Code Phon e Number [facility] [address] [place] [address] SERVICES EKG 12-LEAD (03/19/2020 0:10 EDT) Specimen Narrative [facility] EKG - 04/17/2020 8:44 EDT ? [facility] ? Test Date: ?2020-03-19 Pat Name: ? CLAUDIA BATISTA ? Department: ?? [place] [address] ? Room: ? [id number] Gender: ? Male ? Combat Control Manager: ?? [id number] : ?1955 ? Requested By: JULIAN Acuna Order Number: [id number] ? Reading MD: ?? ANETA HAN MD ? Measurements Intervals ?Bells ? Rate: ? 72 ? P: ?50 CO: ? 214 ?QRS: ?69 QRSD: ? 125 ?T: ?6 QT: ? 391 ? QTc: ?429 ? Interpretive Statements SINUS RHYTHM WITH FIRST DEGREE AV BLOCK POSSIBLE RIGHT VENTRICULAR CONDUCTION DE LAY Compared to ECG 12/02/2018 18:08:56 No significant change Edited by BRYAN LU MD on 03-23-2020 9: 38:28 EDT. I reviewed the tracing and have either a greed or edited the findings in this report. Electronically Signed On 04-17-20 8:44:09 EDT by ANETA HAN MD. Procedure Note Aneta Han MD - [facility]17/2020 [facility] Date: 2020-03-19 Pat Name: CLAUDIA BATISTA Department: Mami Javed Room: [id number] Gender: Male Combat Control Manager: [id number] : 1955 Requested By: JULIAN Acuna Order Number: [id number] Reading MD: Jaime HAN MD Measurements Intervals Bells Rate: 72 P: 50 CO: 214 QRS: 69 QRSD: 125 T: 6 QT: 391 QTc: 429 Interpretive Statements SINUS RHYTHM WITH FIRST DEGREE AV BLOCK POSSIBLE RIGHT VENTRICULAR CONDUCTION DE LAY Compared to ECG 12/02/2018 18:08:56 No significant change Edited by BRYAN LU MD on 03-23-2020 9: 38:28 EDT. I reviewed the tracing and have either a greed or edited the findings in this report. Electronically Signed On 04-17-20 8:44:09 EDT by ANETA HAN MD. Performing Organization Address City/State/ZIP Code Phon e Number [facility] EKG POCT GLUCOSE, INTERFACED (03/18/2020 23:20 EDT) Glucose, POC 98 70 - 100 [facility] mg/dL LABORATORY prosthetic technician ID [id number] [facility] SERVICES HN LAB POC COMMENT Test Performed by [facility] ANDIE Banda (GLUCOSE) Nursing Services LABORATORY SERVICES Specimen Blood - Capillary blood (substance) Performing Organization Address City/State/ZIP Code Phon e Number [facility] [address] [place] [address] SERVICES documented in this encounter Visit Diagnoses Diagnosis NSTEMI (non-ST elevated myocardial infar ction) ([facility]) ([facility]) - Primary Acute myocardial infarction, subendocard ial infarction, episode of care unspecified Essential hypertension Unspecified essential hypertension 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 ([facility]) ([facility]) Type II or unspecified type diabetes chantelle litus with peripheral circulatory disorders, not stated as uncontrolled NSVT (nonsustained ventricular tachycard ia) ([facility]) ([facility]) Paroxysmal ventricular tachycardia Atherosclerosis of coronary artery witho ut angina pectoris, unspecified vessel or lesion type, unspecified whether [place] or transplanted heart Other specified disorders of arteries an d arterioles ([facility]) Other specified disorders of arteries an d arterioles Stenosis of coronary stent, initial enco unter Old myocardial infarction Hyperlipidemia with target LDL less than 70 Other and unspecified hyperlipidemia Insulin-requiring or dependent type II d iabetes mellitus ([facility]) ([facility]) Type II or unspecified type diabetes chantelle litus without mention of complication, not stated as uncontrolled Family history of ischemic heart disease Ventricular tachycardia ([facility]) ([facility]) Paroxysmal ventricular tachycardia Hypertensive disorder Unspecified essential hypertension Diabetes mellitus ([facility]) Type II or unspecified type diabetes chantelle litus without mention of complication, not stated as uncontrolled Ventricular tachycardia ([facility]) ([facility]) Paroxysmal ventricular tachycardia documented in this encounter Administered Medications Inactive Administered Medications - up to 3 most recent administrations Medication Order MAR Action Action Date Dose Rate Site acetaminophen (TYLENOL) tablet 650 Given 03/22/2020 13:06 EDT 65 0 mg mg 650 mg, oral, EVERY 4 HOURS PRN, Starting on 03/19/20 at 1557, Until Darlin 03/22/20 at 1822, Pain, Routine, Release Given 03/21/2020 6:39 EDT 650 mg Given 03/20/2020 19:05 EDT 650 mg amLODIPine (NORVASC) tablet 10 mg Given 03/22/2020 9:28 EDT 10 mg 10 mg, oral, DAILY, First dose on Thu03/19/20 at 0900, Until Discontinued, Routine Given 03/21/2020 8:41 EDT 10 mg Given 03/20/2020 8:35 EDT 10 mg aspirin chewable tablet 81 mg Given 03/22/2020 9:28 EDT 81 mg 81 mg, oral, DAILY, First dose on Thu03/19/20 at 0900, Until Discontinued, Routine Given 03/21/2020 8:41 EDT 81 mg Given 03/20/2020 8:35 EDT 81 mg gadobutroL (GADAVIST PFS) solution solution Given 03/21/2020 14: 44 EDT 20 mmol 1-15 mmol 1-15 mmol (1-15 mL), intravenous, Once in imaging, 1 dose, Starting on Thu03/21/20 at 1443, Until Thu03/21/20 at 1444, Routine, Imaging Protocol Orders heparin 1,000 unit/mL injection 2,900 Un its Given 03/19/2020 2:59 EDT 2,900 Units 2,900 Units (rounded from 2,926 Units = 35 Units/kg ? 83.6 kg Adjusted weight), intravenous, PRN, Starting on Thu03/19/20 at 0152, Until Thu03/19/20 at 1558, Other, Per Heparin Protocol, Routine heparin in 1/2 NS 25,000 New Bag 03/18/2020 23:47 EDT 1,000 Units/ hr 10 mL/hr unit/250 mL infusion 1,000 Units/hr (10 mL/hr), intravenous, at 10 mL/hr, CONTINUOUS, Starting on Thu03/18/20 at 2345, Until Thu03/19/20 at 0234, Routine heparin in 1/2 NS 25,000 New Bag 03/19/2020 12:13 EDT 15 Units/kg/ hr 12.5 mL/hr unit/250 mL infusion 15 Units/kg/hr ? 83.6 kg Adjusted weight (12.54 mL/hr, rounded to 12.5 mL/hr), intravenous, at 12.5 mL/hr, CONTINUOUS, Starting on Thu03/19/20 at 0300, Until Thu03/19/20 at 1558, Routine Rate Documented 03/19/2020 7:29 EDT 15 Units/kg/hr 12.5 mL/hr Rate Change 03/19/2020 2:53 EDT 15 Units/kg/hr 12.5 mL/hr heparin injection 5,000 Units 5,000 Units, subcutaneous, EVERY 8 HOURS , First dose on Thu03/20/20 at 1600, Until Discontinued, Routine insulin glargine (LANTUS SOLOSTAR) injection Given 09/2019 12:59 EDT 20 Units pen 20 Units 20 Units, subcutaneous, 2 TIMES DAILY, First dose on Thu03/19/20 at 0215, Until Discontinued, Routine Given 03/20/2020 8:38 EDT 20 Units Given 03/19/2020 20:09 EDT 20 Units isosorbide dinitrate (ISORDIL) tablet 5 mg Given 03/21/2020 6:04 EDT 5 mg 5 mg, oral, 3 TIMES DAILY NITRATES, First dose on Thu03/19/20 at 1830, Until Discontinued, Routine Given 03/20/2020 18:16 EDT 5 mg Given 03/20/2020 13:02 EDT 5 mg isosorbide mononitrate (IMDUR) CR tablet 15 mg Given 03/22/2020 9:28 EDT 15 mg 15 mg, oral, DAILY, First dose on Thu03/21/20 at 1200, Until Discontinued, Routine Given 03/21/2020 15:30 EDT 15 mg lidocaine 20 mg/mL (2 %) injection 1 dose, Starting on Thu03/19/20 at 1508, Until 03/22 at 1822 lisinopriL (PRINIVIL) tablet 5 mg Given 03/22/2020 9:28 EDT 5 mg 5 mg, oral, DAILY, First dose on Thu03/19/20 at 0900, Until Discontinued, Routine Given 03/21/2020 8:41 EDT 5 mg Given 03/20/2020 8:35 EDT 5 mg LORazepam (ATIVAN) injection 0.5 mg Given 03/21/2020 13:36 EDT 0.5 mg 0.5 mg, intravenous, NOW X1, 1 dose, On Thu03/21/20 at 1330, Routine LORazepam (ATIVAN) tablet 0.5 mg 0.5 mg, oral, ONCE, 1 dose, Starting on Thu03/21/20 at 1230, Until Darlin 03/22/20 at 1822, Routine metoprolol XL (TOPROL-XL) tablet 150 mg Given 03/22/2020 9:29 EDT 150 mg 150 mg, oral, DAILY, First dose on Thu03/19/20 at 0900, Until Discontinued Given 03/21/2020 8:41 EDT 150 mg Given 03/20/2020 8:35 EDT 150 mg midazolam (PF) (VERSED) 1 mg/mL injectio n 1 dose, Starting on Thu03/19/20 at 1508, Until Darlin 03/22 at 1822 nitroglycerin 100 mcg/mL syringe 1 dose, Starting on Thu03/19/20 at 1508, Until Darlin 03/22 at 1822 perflutren lipid microspheres (DEFINITY) 0.165 mg Given 03/19/2020 14:00 EDT 2 mL in sodium chloride (PF) 1 mL 0.165 mg, intravenous, ONCE, 1 dose, Starting on Thu03/19/20 at 1359, Until Thu03/19/20 at 1400, Routine rosuvastatin (CRESTOR) tablet 40 mg Given 03/22/2020 9:29 EDT 40 mg 40 mg, oral, DAILY, First dose on Thu03/19/20 at 0900, Until Discontinued, Routine Given 03/21/2020 8:41 EDT 40 mg Given 03/20/2020 8:35 EDT 40 mg sertraline (ZOLOFT) tablet 50 mg Given 03/22/2020 9:28 EDT 50 mg 50 mg, oral, DAILY, First dose (after last modification) on Thu03/19/20 at 0215, Until Discontinued, Routine Given 03/21/2020 8:41 EDT 50 mg Given 03/20/2020 8:36 EDT 50 mg sodium chloride 0.9 % (flush) flush 3 mL Given 03/22/2020 0:24 EDT 3 mL 3 mL, intravenous, EVERY 8 HOURS, First dose on Thu03/19/20 at 0200, Until Discontinued, Routine, Release Given 03/21/2020 8:09 EDT 3 mL Given 03/20/2020 21:00 EDT 3 mL ticagrelor (BRILINTA) tablet 90 mg Given 03/19/2020 8:17 EDT 90 mg 90 mg, oral, 2 TIMES DAILY, First dose on Thu03/19/20 at 0900, Until Discontinued, Routine traZODone (DESYREL) tablet 50 mg Given 03/21/2020 20:37 EDT 50 mg 50 mg, oral, AT BEDTIME, First dose (after last modification) on Thu03/19/20 at 0215, Until Discontinued, Routine Given 03/20/2020 20:55 EDT 50 mg Given 03/19/2020 20:11 EDT 50 mg documented in this encounter Discontinued Medications Medication Sig Discontinue Reason Start Date End Date LORazepam (ATIVAN) 2 mg 2mg 30 minutes prior 9 03/22/2020 tablet to MRI. documented as of this encounter Active and Recently Administered Medications Times are shown in EDT. Scheduled Medication Order 03/20/2020 03/21/2020 03/22/2020 amLODIPine (NORVASC) tablet 10 mg 0835 (Given - Provider: Tata Pace RN) 0841 (Given - Provider: Roya Hall, JANNY) 0928 (Given - Provider: Jayashree Espitia, JANNY) 10 mg, oral, DAILY, First dose on Thu at 0900, Until Discontinued, Routine aspirin chewable tablet 81 mg 0835 (Given - Provider: Sima renee RN) 0841 (Given - Provider: Roya Hall, JANNY) 0928 (Given - Provider: Jayashree Espitia RN) 81 mg, oral, DAILY, First dose on Thu at 0900, Until Discontinued, Routine gadobutroL (GADAVIST PFS) solution solution 1-15 mmol (COMPL ETED) 1444 (Given - Provider: Pepper Grossman) 1-15 mmol (1-15 mL), intravenous, Once i n imaging, 1 dose, Starting Thu03/21/20 at 1443, Until Thu03/21/20 at 1444, Routine, Imaging Protocol Orders heparin injection 5,000 Units 1702 (Not Given - Provid er: Sima Pace RN - Reason: Patient/family refused - Comment: ambulation)2304 (Not Given - Provider: Lori Galdamez RN - Reason: Patient/family refused - Comment: pt ambulating) 0733 (Not Given - Provider: Roya Hall RN - Reason: Other - Comment: ambulatory)1528 (Not Given - Provider: Roya Hall RN - Reason: Other) 0056 (Not Given - Provider: Zoraida Melara RN - Reason: Patient/family refused)0932 (Not Given - Provider: Jayashree Espitia RN - Reason: Patient/family refused - Comment: pt is ambulatory) 5,000 Units, subcutaneous, EVERY 8 HOURS , First dose on Thu03/20/20 at 1600, Until Discontinued, Routine 1543 (Not Gi augustus - Provider: Jayashree Espitia RN - Reason: Patient/family refused) insulin aspart U-100 (NOVOLOG FLEXPEN) injection 0608 (Not Given - Provider: Jessie Mart RN - Reason: Order parameters not met)1300 (Not Given - Provider: Sima Pace RN - Reason: NPO)1701 (Not Given - Provider: Sima Pace RN - Reason: Order parameters not met) 0600 (Not Given - Provider: Lori Galdamez RN - Reason: Order parameters not met)1458 (Not Given - Provider: Roya Hall RN - Reason: Order parameters not met) 0602 (Not Given - Provider: Zoraida Melara RN - Reason: Order parameters not met)1119 (Not Given - Provider: Jayashree Espitia RN - Reason: Order parameters not met - Comment: BS of 135) subcutaneous, EVERY 6 HOURS, First dose on Thu03/19/20 at 0215, Until Discontinued 2304 (Not Given - Provider: Lori banda RN - Reason: Order parameters not met) 1726 (Not Given - Provider: Roya harley RN - Reason: Other - Comment: FSBG taken after meal, pt request no insulin)2302 (Not Given - Provider: Siddhartha Walton RN - Reason: Order parameters not met) 1800 (Canceled Entry - Provider: Batch Job User Admin - Comment: Automatically canceled at discontinue of medication order) insulin glargine (LANTUS SOLOSTAR) injection pen 20 Un its 0838 (Given - Provider: Sima Pace RN)2053 (Not Given - Provider: Lori Galdamez RN - Reason: NPO - Comment: held per MD Molina orders.) 0840 (Not Given - Provider: Roya Hall RN - Reason: Patient/family refused)2037 (Not Given - Provider: Siddhartha Walton RN - Reason: Order parameters not met) 1259 (Given - Provider: Jayashree Espitia RN) 20 Units, subcutaneous, 2 TIMES DAILY, F irst dose on Thu03/19/20 at 0215, Until Discontinued, Routine isosorbide dinitrate (ISORDIL) tablet 5 mg (CANCELED) 0607 (Given - Provider: Jessie Mart RN)1302 (Given - Provider: Sima Pace RN - Comment: BP 119/70)1816 (Given - Provider: Sima Pace RN - Comment: BP 110/70) 0604 (Given - Provider: Lori Galdamez RN) 5 mg, oral, 3 TIMES DAILY NITRATES, Firs t dose on Thu03/19/20 at 1830, Until Discontinued, Routine isosorbide mononitrate (IMDUR) CR tablet 15 mg 1530 (Given - Provider: Roya Hall RN - Comment: pt off unit) 0928 (Given - Provider: Veronika Tom N) 15 mg, oral, DAILY, First dose on 09/08 at 1200, Until Discontinued, Routine lisinopriL (PRINIVIL) tablet 5 mg 0835 (Given - Provider: Tata Pace RN) 0841 (Given - Provider: Roya Hall RN) 0928 (Given - Provider: Jayashree Espitia RN) 5 mg, oral, DAILY, First dose on 02/19 at 0900, Until Discontinued, Routine LORazepam (ATIVAN) injection 0.5 mg (COMPLETED) 1336 (Given - Provider: Siddhartha Walton RN) 0.5 mg, intravenous, NOW X1, 1 dose, Thu03/21/20 at 1330, Routine LORazepam (ATIVAN) tablet 0.5 mg 1335 (N ot Given - Provider: Siddhartha Walton RN - Reason: Other - Comment: IV given) 0.5 mg, oral, ONCE, 1 dose, Starting Thu03/21/20 at 1230, Until Thu03/22/20 at 1822, Routine metoprolol XL (TOPROL-XL) tablet 150 mg 0835 (Given - Provider: Sima Pace RN) 0841 (Given - Provider: Roya Hall, JANNY) 0929 (Giv en - Provider: Jayashree Espitia RN) 150 mg, oral, DAILY, First dose on Thu03/19/20 at 0900, Until Di scontinued rosuvastatin (CRESTOR) tablet 40 mg 0835 (Given - Provider: Sima Pace RN) 0841 (Given - Provider: Roya Hall RN) 0929 (Given - Provider: Jayashree Espitia RN) 40 mg, oral, DAILY, First dose on Thu at 0900, Until Discontinued, Routine sertraline (ZOLOFT) tablet 50 mg 0836 (Given - Provider: Remberto Pace RN) 0841 (Given - Provider: Roya Hall RN) 0928 (Given - Provider: Jayashree Espitia RN) 50 mg, oral, DAILY, First dose (after la st modification) on Thu03/19/20 at 0215, Until Discontinued, Routine sodium chloride 0.9 % (flush) flush 3 mL 0008 (Given - Provider: Jessie Mart RN)0838 (Given - Provider: Sima Pace RN)1701 (Not Given - Provider: Sima Pace RN - Reason: Other)2100 (Given - Provider: Lori Galdamez RN) 0809 (Given - Provider: Roya Hall RN)1528 (Not Given - Provider: Roya Hall RN - Reason: Other) 0024 (Given - Provider: Zoraida Melara RN)0933 (Not Given - Provider: Jayashree Espitia RN - Reason: Order parameters not met)1543 (Not Given - Provider: Jayashree Espitia RN - Reason: Order parameters not met) 3 mL, intravenous, EVERY 8 HOURS, First dose on Thu03/19/20 at 0200, Until Discontinued, Routine, Release traZODone (DESYREL) tablet 50 mg 2054 (Given - Provider: Naheed Galdamez, JANNY) 2036 (Given - Provider: Siddhartha Walton RN) 50 mg, oral, AT BEDTIME, First dose (aft er last modification) on Thu03/19/20 at 0215, Until Discontinued, Routine PRN Medication Order 03/20/2020 03/21/2020 03/22/2020 acetaminophen (TYLENOL) tablet 650 mg 1125 (Given - Pr ovider: Sima Pace RN)1905 (Given - Provider: Sima Pace RN) 0639 (Given - Provider: Lori Galdamez RN) 1306 (Given - Provider: Veronika Tom) 650 mg, oral, EVERY 4 HOURS PRN, Startin g 03/19/20 at 1557, Until Darlin 03/22/20 at 1822, Pain, Routine, Release dextrose 50 % solution 12.5 g 12.5 g (25 mL), intravenous, PRN, Starti ng Thu03/19/20 at 0146, Until Darlin 03/22/20 at 1822, Low Blood Sugar, Routine No Frequency Medication Order 03/20/2020 03/21/2020 03/22/2020 lidocaine 20 mg/mL (2 %) injection 1 dose, Starting Thu03/19/20 at 1508, Until Discontinued midazolam (PF) (VERSED) 1 mg/mL injection 1 dose, Starting Thu03/19/20 at 1508, Until Discontinued nitroglycerin 100 mcg/mL syringe 1 dose, Starting Thu03/19/20 at 1508, Until Discontinued documented in this encounter Orders Medications Ordered That Might Not Have Count Last Ord ered Date First Ordered Date Been Administered LORazepam (ATIVAN) tablet 0.5 mg 1 03/21/2020 heparin injection 5,000 Units 1 03/20/2020 dextrose 50 % solution 12.5 g 1 03/19/2020 fentaNYL citrate (PF) 50 mcg/mL injection 1 2019 fentaNYL citrate (PF) injection 1 03/19/2020 glucagon injection 1 mg 1 03/19/2020 heparin 1,000 unit/mL injection 1 03/19/2020 heparin 1,000 unit/mL injection 5,900 1 03/19/2020 Units insulin aspart U-100 (NOVOLOG FLEXPEN) 1 0 injection iopamidoL (ISOVUE-370) injection 1 03/19/2020 lidocaine 20 mg/mL (2 %) injection 1 03/19/2020 midazolam (PF) (VERSED) 1 mg/mL injection 1 2019 midazolam (PF) (VERSED) injection 1 03/19/2020 nitroglycerin 100 mcg/mL syringe 1 03/19/2020 sertraline (ZOLOFT) tablet 50 mg 1 03/19/2020 sodium chloride 0.9 % (NS) infusion 1 03/19/2020 traZODone (DESYREL) tablet 50 mg 1 03/19/2020 verapamiL (ISOPTIN) 2.5 mg/mL injection 1 03/19/20 20 Procedures Count Last Ordered Date First Ordered Date ECG REPORT - SCANNED 3 04/17/2020 03/27/2020 Nursing Count Last Ordered Date First Ordered Date HEIGHT AND WEIGHT 1 03/19/2020 MEASURE WEIGHT 1 03/19/2020 NOTIFY PHYSICIAN (SPECIFY) 3 03/19/2020 NURSING ORDER: HEPARIN PROTOCOL (CARDIAC 1 020 INDICATION) PATIENT AT LOW RISK FOR VTE: RISK OF 1 03/19/2020 MECHANICAL PROPHYLAXIS OUTWEIGHS PATIENT AT LOW RISK FOR VTE: RISK OF 1 03/19/2020 PHARMACOLOGIC PROPHYLAXIS OUTWEIG Admission Count Last Ordered Date First Ordered Date ADMIT TO INPATIENT 1 03/19/2020 Discharge Count Last Ordered Date First Ordered Date DISCHARGE PATIENT 1 03/22/2020 Case Request Count Last Ordered Date First Ordered Date CASE REQUEST WORKPLACE TRAINER AND ASSESSOR 1 03/19/2020 documented in this encounter Care Teams History Tutor Relationship Specialty Start Date End Date Denise Hooker, SANDER OPERATOR PCP - General 09/13/18 [address] [place] [address] documented as of this encounter
--- OUTSIDE RECORDS SUMMARY | 2022-02-21 01:11 | XMS_ITS | Encounter Summary ---
:1955 Author Organization [facility] Address [address] [place] [address] Care Team Providers Name Role Phone Denise Hooker APRN Primary Care Provider [phone] Reason for Visit Office Procedure (Routine) - Authorization Not Required Specialty Diagnoses / Procedures Referred By Contact Refer red To Contact Neurology Diagnoses Fasciculations Polyneuropathy Ken Bran MD [place] 5 Lab Procedures EMG/NERVE CONDUCTION STUDY [address] [place], Level [address] Phone: [phone] Referral ID Status Reason Start Expiration Visits Visits Date Date Requested Authorized [id number] Authorization Not 1 1 Required 9 Encounter Details Date Type Department Care Team Description 08/25/2019 - [facility] Ken Brancu lations; 08/26/2019 Encounter Neurophysiology - Abel Grayson MD Polyneuropathy [place] [address] [place] [address] [place], [facility] [place] [address] Social History Tobacco Use Types [...] 50 mg by mouth 0 tablet daily. LORazepam (ATIVAN) 2 mg 2mg 30 minutes 1 Tab 0 05/19/20 19 03/22/2020 tablet prior to MRI. documented as of this encounter Discharge Disposition Disposition Code Departure Means Destination Home or Self Care documented in this encounter Progress Notes Ken Bran MD - 08/25/2019 1125 EST History: This is a 63-year-old gentleman seen in electrodiagnostic consultation to evaluate symptoms of lowerextremity fasciculations. He was seen in my clinic for this issue in April 2019. He reports somewhere between 3 and 5 years of symptoms of twitching of muscles in bilateral lower extremities which primarily involve his calves but at times have involved quadriceps as well. He has never experienced associated weakness or dysfunction in the lower extremities. He does have history of diabetes without prominent numbness. He does have some chronic low back pain but we checked an MRI scan of the lumbosacral spine which does not show evidence of clear nerve root compression in the lumbosacral spine. He was treated with a SSRI and trazodone for sleeping and depression. Clinical Exam: This is a 63-year-old gentleman is in no acute distress Motor exam: Fasciculations appreciated in bilateral calves intermittently in bilateral vastus medialis. No fasciculations appreciated in the upper extremities. He otherwise has normal tone and bulk of his bilateral upper and lower extremities. He exhibited full power with shoulder abduction, shoulder external rotation, elbow flexion/extension, wrist flexion/extension, finger spread, deep finger flexion, hip flexion, knee extension, ankle dorsiflexion, great toe extension. Sensory: Preserved sharp dull discrimination at distal toes and fingers without evidence of a gradient. He has absent vibration at the toes. Reflexes: 2+ bilateral biceps, triceps, brachioradialis, knee jerks, ankle jerks. Toes downgoing Gait: Normal casual gait. For waveforms/values of EMG/nerve conduction study please see accompanying scanned document in the scans/media tab in [facility]. 15 additional minutes of face to face time after the test spent with the patient to discuss results and coordinate plan of care. Electrodiagnostic Findings: Nerve Conduction: 1. Normal right peroneal and tibial motor responses 2. Normal right superficial peroneal and sural sensory responses Needle EM. Fasciculations appreciated without concurrent fibrillations and positive sharp waves and normal volitional motor activity in the right tibialis anterior, medial gastrocnemius, and vastus lateralis. 2. Normal right deltoid and triceps. Electrodiagnostic Impression: This is a mildly abnormal study. I appreciated multiple fasciculation potentials without any signs of active denervation with fibrillations or positive sharp waves and normal motor unit activity in theright tibialis anterior medial gastrocnemius and vastus lateralis. In the absence of signs of activedenervation and chronic reinnervation this is a more benign finding. This study was not consistent with peripheral neuropathy, right lumbosacral radiculopathy, myopathy, or motor neuron disease at thistime. Clinical Impression: Fasciculations: Patient is continue to experience multiple fasciculations in the absence of concurrent weakness and sensory loss. EMG nerve conduction testing today was reassuring with presence of only electrical fasciculations without signs of active denervation and chronic reinnervation after 3 to 5 years of symptoms. I provided the patient reassurance that this is likely not community engagement representative of a progressive degenerative neuromuscular disorder. It is possible that this is community engagement representative of benign cramp fasciculation syndrome. It is also possible that this is related to the patient's treatment with SSRI medications. I sent the patient for additional laboratory testing today to look for voltage-gated potassium channel antibodies which might prompt a paraneoplastic work-up in this case. Given that the symptoms arenot bothersome I recommend that we observe this for now without adding a removing any medical therapies. He has good benefit from his SSRI medications I would not recommend switching those for this symptom alone. I will plan to recheck his exam in about 6 months to make sure that there is no changes that would change the above differential diagnosis. Thank you for allowing me to participate in the care of your patient. I'll plan to see him back in the neuromuscular clinic in 6 months. Please don't hesitate to call with any questions. Ken Bran MD [facility] Neurology Attending Physician ABPN Board Certified, Neurology and Neuromuscular Medicine ABEM Board Certified, EMG documented in this encounter Plan of Treatment Upcoming Encounters Date Type Specialty Care Team Description 09/29/2022 Office Visit Gastroenterology and Shaq Phan, Hepatology [address] [facility], [facility] 5 [place] [id number] (Wo rk) Scheduled Orders Name Type Priority Associated Diagnoses Order S chedule EMG/NERVE CONDUCTION Procedures Routine Fasciculati ons Ordered: 05/19/2019 STUDY Polyneuropathy documented as of this encounter Visit Diagnoses Diagnosis Fasciculations Abnormal involuntary movements Polyneuropathy Unspecified hereditary and idiopathic pe ripheral neuropathy documented in this encounter Care Teams Centrifugal Separator Relationship Specialty Start Date End Date Denise Hooker APRN PCP - General 09/13/18 [address] [place] [address] documented as of this encounter
--- OUTSIDE RECORDS SUMMARY | 2022-02-21 01:11 | XMS_ITS | Encounter Summary ---
:1955 Author Organization [facility] Address [address] [place] [address] Care Team Providers Name Role Phone Denise Hooker APRN Primary Care Provider [phone] Reason for Visit (Routine) - Receiving Office to Obtain Authorization Specialty Diagnoses / Procedures Referred By Contact Refer red To Contact Procedures Unknown, Provider, MR OUTSIDE IMAGES NEURO Phone: Referral ID Status Reason Start Expiration Visits Visits Date Date Requested Authorized [id number] Receiving Office 06/27/2019 1 1 to Obtain Authorization Encounter Details Date Type Department Care Team Description 06/23/2019 Hospital Encounter [facility] Radiology - Main [place] [address] [place] [address] Social History Tobacco Use Types Packs/Day Years [...] to MRI. documented as of this encounter Plan of Treatment Upcoming Encounters Date Type Specialty Care Team Description 09/29/2022 Office Visit Gastroenterology and Shaq Phan, Hepatology [address] [place] [facility], [facility], [address] [place] [address] (Wo rk) documented as of this encounter Procedures Procedure Name Priority Date/Time Associated Diagnosis Comme nts MR OUTSIDE IMAGES Routine 06/27/2019 18:47 Result s for this NEURO EST procedure are i n the results section. documented in this encounter Results MR OUTSIDE IMAGES NEURO (06/27/2019 18:47 EST) Specimen Narrative [facility] - 06/27/2019 18:47 EST This is a non-reportable exam. Performing Organization Address City/State/ZIP Code Phon e Number [facility] documented in this encounter Visit Diagnoses Not on filedocumented in this encounter Care Teams Boot Trimmer Relationship Specialty Start Date End Date Denise Hooker APRN PCP - General 09/13/18 [address] [place] [address] documented as of this encounter
--- OUTSIDE RECORDS SUMMARY | 2022-02-21 01:11 | XMS_ITS | Encounter Summary ---
:[address] [facility] Address [address] [place] [address] Care Team Providers Name Role Phone Denise Hooker APRN Primary Care Provider [phone] Reason for Referral Radiology Services (Routine) - Authorization Not Required Specialty Diagnoses / Procedures Referred By Contact Refer red To Contact Diagnoses Fatty liver Letty Mackey MD Procedures US ABDOMEN LIMITED [address] [place] [phone] Referral ID Status Reason Start Expiration Visits Visits Date Date Requested Authorized [id number] Authorization Not 12/06/2019 1 1 Required Reason for Visit Radiology Services (Routine) - Authorization Not Required Specialty Diagnoses / Procedures Referred By Contact Refer red To Contact Diagnoses Fatty liver Letty Mackey MD Procedures US ABDOMEN LIMITED [address] [place] [phone] Referral ID Status Reason Start Expiration Visits Visits Date Date Requested Authorized [id number] Authorization Not 12/06/2019 1 1 Required Encounter Details Date Type Department Care Team Description 01/26/2020 [facility] [place] [address] Social History Tobacco Use Types Packs/Day Years [...] Visit Gastroenterology and Shaq Phan Hepatology [address] [facility], [address] [place] [address] (Wo rk) documented as of this encounter Procedures Procedure Name Priority Date/Time Associated Diagnosis Comme nts US ABDOMEN LIMITED Routine 01/26/2020 13:21 Fatty liver Resul ts for this EDT procedure are i n the results section. documented in this encounter Results US ABDOMEN LIMITED (01/26/2020 13:21 EDT) Anatomical Region Laterality Modality Abdomen, Body Ultrasound Specimen Impressions [facility] [place] - 01/26/2020 13:42 EDT 1. ??Hepatomegaly and hepatic steatosis with areas of focal fatty sparing adjacent to the gallbladder fossa and falciform ligament. 2. ??Echogenic appearance of the pancrea s suggests fatty replacement. 3. ??Right renal cyst. Narrative [facility] [place] - 01/26/2020 13:42 EDT US ABDOMEN LIMITED [...] Organization Address City/State/ZIP Code Phon e Number [facility] documented in this encounter Visit Diagnoses Diagnosis Fatty liver Other chronic nonalcoholic liver disease documented in this encounter Care Teams Frame Assembler Relationship Specialty Start Date End Date Denise Hooker APRN PCP - General 09/13/18 [address] [place] [address] documented as of this encounter
--- OUTSIDE RECORDS SUMMARY | 2022-02-21 01:11 | XMS_ITS | Encounter Summary ---
:1955 Author Organization [facility] Address [address] [place] [address] Care Team Providers Name Role Phone Denise Hooker APRN Primary Care Provider Reason for Visit Reason Onset Date Comments Appointment Related 10/19/2019 Encounter Details Date Type Department Care Team Description 10/19/2019 Telephone [facility] Ken Bran, Appointment Related Neurology - S Arcelia chi MD [address] [phone] [facility] [address] [place] [address] (Wo rk) Social History Tobacco [...] Notes Telephone Encounter - Akua Kyle - 10/19/2019 7555 EDT Pt called in to cancel 02/19 appt with Yina as he is moving out of [facility] to [place]. documented in this encounter Plan of Treatment Upcoming Encounters Date Type Specialty Care Team Description 09/29/2022 Office Visit Gastroenterology and Shaq Phan, Hepatology [address] [facility], [address] [place] [address] (Wo rk) documented as of this encounter Visit Diagnoses Not on filedocumented in this encounter Care Teams Supervisor Contingents Relationship Specialty Start Date End Date Denise Hooker APRN PCP - General 09/13/18 [address] [place] [address] documented as of this encounter
--- OUTSIDE RECORDS SUMMARY | 2022-02-21 01:11 | XMS_ITS | Encounter Summary ---
:1955 Author Organization [facility] Address [address] [place] [address] Care Team Providers Name Role Phone MorroDenise APRN Primary Care Provider [phone] Reason for Visit Auth/Cert Specialty Diagnoses / Procedures Referred By Contact Refer red To Contact Diagnoses NSTEMI (non-ST elevated myocardial infarction) ([facility]) ([facility]) NSTEMI Referral ID Status Reason Start Date Expiration Date Visits Requ ested Visits Authorized [id number] 1 1 Encounter Details Date Type Department Care Team Description 03/19/2020 Surgery [facility] Lester Herron Jr., MD Left Heart Cath Invasive Cardiology Unit [address] [place] [address] [address] [place], [place] [address] (Wo rk) Surgery Details Date/Time Status Location OR Service Patient Case Case Traum a Class Class Type Case? 03/19/20 1300 Posted [facility] Cath Cath Interventional Inpatient Lab Lab 2 Cardiology Panel 1 Procedure LRB Anes Op Region Wound Class Commen ts Left Heart Cath Left Chest Surgeon Surgeon Role Service Panel Nash Herron Jr., MD Primary Interventional Cardiolo gy 1 Asif Cheatham MD Fellow Interventional Cardiology 1 Luis Garcia Fellow Interventional Cardiology 1 Social History Tobacco Use Types Packs/Day Years [...] Sign Reading Time Taken Comments Blood Pressure 138/80 03/19/2020 1359 EDT Pulse - - Temperature 36.1 ??C (97 ??F) 03/19/2020 0729 EDT Respiratory Rate 18 03/19/2020 0729 EDT Oxygen Saturation 95% 03/19/2020 0729 EDT Inhaled Oxygen Concentration - - Weight [...] Problems and Procedures Admitting Diagnosis: Ventricular tachycardia ([facility]) Final Hospital Diagnosis: NSTEMI, nonsustained ventricular tachycardia Additional Problems Managed in the Hospital Active Hospital Problems Diagnosis Date Noted ??? Type 2 diabetes mellitus with vascular disease ([facility]) 03/19/2020 ??? NSVT (nonsustained ventricular tachycardia) ([facility]) 03/19/2020 ??? Hypertensive disorder 09/07/2009 ??? Diabetes mellitus ([facility]) 09/07/2009 Oral agent - metformin Resolved Hospital Problems Diagnosis Date Noted Date Resolved ??? *NSTEMI (non-ST elevated myocardial infarction) ([facility]) 03/19/2020 03/22/2020 Principal Procedure: Left heart catheterization Date: 03/19/20 Secondary Procedures: Not applicable Hospital Course Claudia Batista is a 64-year-old man with a history of CAD (NC x2, stents x9), HTN, and HLD who was transferred from [facility] on 03/19 for management of NSTEMI. Left heart catheterization was performed and confirmed patent stents and mild coronary artery disease unchanged from prior. He was managed medically with Isordil 5 mg TID, which he tolerated well, in addition to his TRANSMISSION DESIGN ENGINEER amlodipine, lisinopril, and metoprolol. This was subsequently [...] 13:00 Office Visit with Letty Mackey MD [facility] Gastroenterology [facility] (--) [address] [place] [id number] Follow-up appointments and procedures Amb Consult/Follow Up Cardiac Electrophysiology Reason for Request: event monitor and ventricular tachycardia, recent hospital discharge Authorizing Provider: Jeison Pickett DO Follow-up labs and tests Cardiac event monitor Complete by: Mar 22, 2020 (Approximate) Comments: 30 day event monitor Live feed Authorizing Provider: Jeison Pickett DO Appointments We Recommend but have not been Scheduled none MATA THORNE MD 03/22/2020 17:42 STAFF ATTESTATION: I, [...] Code Departure Means Destination Home or Self Correction documented in this encounter Progress Notes Mata Thorne MD - 03/22/2020927 EDT Cardiology Progress note Service Date: 03/22/2020 [...] BPM 36 ??C (96.8 ??F) 96 % 03/22/20 0457 ??? 76 BPM ??? 96 % 03/22/206 122/72 73 BPM ? Weight: No data [...] to POC glucose 94. CBC: Recent Labs 03/20/20 0211 03/21/20 0559 WBC 8.07 6.44 HGB 14.1 14.4 HCT 42.2 43.1 MCV 83 84 PLT 212 223 BMP: Recent Labs 03/20/20 0211 03/21/20 0559 CREATININE 0.79 0.71 NA 138 141 [...] 72 hours. Non-Invasive Findings last 24 hours: CARDIAC W WO CONTRAST 03/21/2020 1:00 PM 1. Small [...] history. Presents as a direct transfer from [facility] for further work-up of a NSTEMI. Evaluation [...] daily - ticagrelor 90mg BID - continue TRANSMISSION DESIGN ENGINEER rosuvastatin 40 mg daily NSVT: noted on telemetry overnight following admission. Asymptomatic (pt sleeping). No recurrence. Cardiac MRI obtained 03/21 showing a small infarct in the basilar inferior wall of the LV. - EP consulted, recommendations pending CAD/HTN/HLD -Continue aspirin 81 mg daily -Continue TRANSMISSION DESIGN ENGINEER amlodipine 10 mg -Continue lisinopril 5 mg daily -Continue metoprolol XL 150 mg daily ?? Type 2 Diabetes: A1c 7.4% on admission, TRANSMISSION DESIGN ENGINEER insulin regimen 40 units glargine twice daily. - Lantus held last night, currently NPO with elevated AM glucose - When PO, resume Lantus 20U BID + consistent carb diet - POCT Glc Q6 while NPO then before meals and qhs - Sliding scale with aspart Q6 while NPO - Continue to hold TRANSMISSION DESIGN ENGINEER metformin, dapagliflozin, exenatide ?? Depression/sleep -Continue TRANSMISSION DESIGN ENGINEER sertraline 50 mg daily -Continue TRANSMISSION DESIGN ENGINEER trazodone 50 mg daily ?? Diet: NPO [...] NPO. CBC: Recent Labs 03/19/20 0546 03/20/20 02103/21/20 0559 WBC 7.59 8.07 6.44 HGB 14.4 [...] history. Presents as a direct transfer from [facility] for further work-up of a NSTEMI. Evaluation [...] daily - ticagrelor 90mg BID - continue TRANSMISSION DESIGN ENGINEER rosuvastatin 40 mg daily - replete if Mg <2 or K <4 NSVT: noted on telemetry overnight following admission. Asymptomatic (pt sleeping). No recurrence. - EP consulted - Cardiac MRI - scheduled for today at 1300 - Depending on MRI findings, either d/c with meds + monitor, or consider ICD CAD/HTN/HLD -Continue aspirin 81 mg daily -Continue TRANSMISSION DESIGN ENGINEER amlodipine 10 mg -Continue lisinopril 5 mg daily -Continue metoprolol XL 150 mg daily ?? Type 2 Diabetes: A1c 7.4% on admission, TRANSMISSION DESIGN ENGINEER insulin regimen 40 units glargine twice daily. - Currently normoglycemic and NPO, Lantus held - When PO, resume Lantus 20U BID + consistent carb diet - POCT Glc Q6 while NPO then before meals and qhs - Sliding scale with aspart Q6 while NPO - Continue to hold TRANSMISSION DESIGN ENGINEER metformin, dapagliflozin, exenatide ?? Depression/sleep -Continue TRANSMISSION DESIGN ENGINEER sertraline 50 mg daily -Continue TRANSMISSION DESIGN ENGINEER trazodone 50 mg daily ?? Diet: NPO VTE Prophylaxis: heparin 5000 subcutaneous q 8 hrs CODE STATUS: Full Discharge Plan Uncertain at this time - potentially today or tomorrow pending cardiac MRI findings MATA THORNE MD 03/21/2020 10:38 STAFF ATTESTATION: ?? I, [...] anginal symptoms. Shantell Manuel MD 03/21/2020 18:23 Shantell duke MD - 03/20/2020 1006 EDT Cardiology Progress [...] Biomarkers: Recent Labs 03/19/20 0901 03/19/20 1756 03/20/20210 TROPONINI 0.191* 0.151* 0.140* Lipids: No results [...] history. Presents as a direct transfer from [facility] for further work-up of a NSTEMI. Evaluation [...] needed, thus far has not - continue TRANSMISSION DESIGN ENGINEER rosuvastatin 40 mg daily - replete if Mg <2 or K <4 - Goal SBP <140 and HR <70 NSVT: noted on telemetry overnight following admission. Asymptomatic (pt sleeping). - EP consulted - Cardiac MRI - ordered, to be performed tomorrow CAD/HTN/HLD -Continue aspirin 81 mg daily -Continue TRANSMISSION DESIGN ENGINEER amlodipine 10 mg -Continue lisinopril 5 mg daily -Continue metoprolol XL 150 mg daily ?? Type 2 Diabetes: A1c 7.4% on admission, TRANSMISSION DESIGN ENGINEER insulin regimen 40 units glargine twice daily. - Currently NPO and receiving Lantus 20U BID - Continue to hold TRANSMISSION DESIGN ENGINEER metformin, dapagliflozin, exenatide - Consistent carbohydrate diet when eating - POCT Glc Q6 while NPO then before meals and qhs -Sliding scale with aspart Q6 while NPO ?? Depression/sleep -Continue TRANSMISSION DESIGN ENGINEER sertraline 50 mg daily -Continue TRANSMISSION DESIGN ENGINEER trazodone 50 mg daily ?? Diet: NPO VTE Prophylaxis: Heparin gtt Consults: None CODE STATUS: Full Admission Status Inpatient. Anticipated duration of hospitalization is greater than two midnights due to NSTEMI. Discharge Plan Uncertain at this time - potential d/c tomorrow pending cardiac MRI findings MATA THORNE MD 03/20/2020 10:09 STAFF ATTESTATION: ?? [...] MD 03/21/2020 7:00 Jo Gold - 03/19/2020 7077 EDT Initial Case Management/Social Work Assessment and Discharge Plan/Readmission Risk Assessment REASON FOR ADMISSION: NSTEMI (non-ST elevated myocardial infarction) ([facility]) Patient understands reason for admission: Yes PATIENT CONTACT INFO VERIFIED: Yes(Sister kala Tirado [phone]) PATIENT ADDRESS VERIFIED: Yes LIVING ARRANGEMENTS AND [...] Chart: Yes, previous copy on file @ [facility] DIRECTIVES FOR FINANCES: TRANSPORTATION: Transportation: Family CULTURAL, LATTER DAY and/or LANGUAGE factors affecting health care/discharge planning: Spiritual/Cultural Requests: None Any factors affecting health care/discharge planning?: No Insurance in Place: Yes Medical Insurance: Yes Type of insurance: Commercial insurance Commercial coverage: MACO Manley Referred to patient financial services: No Nutrition: [...] Provider: Denise Hooker PCP Verified: Yes(Denise Hooker, NON DESTRUCTIVE TESTING SPECIALIST) Specialists: Type of Home Health Services: None DME Provider: None [facility]acy: [facility] [address] [facility] [address] [address] [address] - [place], [place] - [address] [facility] [address] [facility] [address] [facility] [place], [place] [address] [facility] [address] [facility] [address] [facility] [address] [facility] [address] [facility] [address] Home Health: None Other: POST HOSPITAL TRANSITION PLAN: Case management will continue to follow through transition to discharge. Patient's family can provide transportation. Patient is awaiting [facility] and treatment plan. No needsare identified at this time. Patient has Meds to Beds. Jo Lee RN Case Manager #[id number] Bettie Mckeon MD - 03/19/2020 0632 EDT Gas Operations Analyst Addendum to H&P Mr. Claudia Batista is a 64YOM with PMHx pertinent for HTN, HLD, DMII and CAD (s/p multiple PCIs w/ stenting of LAS and RCA; last PCI to mid LAD 01/2016; LHC w/o flow limiting dx in 11/2018) who presents intransfer from [facility] after episode of jaw pain. This AM after cutting wood and noted the onset of intermittent episodes of achy bilateral jaw pain which improved w/ SL nitrox2 but quickly returned. During this he sought medical attention. At [facility] initial trop was negative with second troponin [...] and/or intervention to the patient (or responsible alliance party) and have answered the patient's (or responsible alliance party's) questions. To the best of my knowledge, the patient (or responsible alliance party) has been adequately informed. The patient (or responsible alliance party) has consented to the interventional cardiac procedure. As part of the consent we reviewed that, like surgical procedures, interventional procedures require aggressive short term support to determine the potential benefits of the procedures. For this reason, the patient (or responsible alliance party) has agreed to remain FULL CODE for [...] history. Presents as a direct transfer from [facility] for further work-up of a NSTEMI. Patient [...] EMS to present to emergency department at [facility]. Patient reports that this jaw pain did [...] for obstructive sleep apnea. Prior Cardiac History: 2003 myocardial infarction August 23, 2003, 2 [...] RCA; 2003 stents X2 ??? Diabetes mellitus ([facility]) oral agents ??? Diverticulitis ??? Hyperlipidemia ??? Hypertension ??? NC (myocardial infarction) ([facility]) 1992, 2003 ??? Recurrent infections rt [...] No Data Review: Labs: CBC: Recent Labs 03/19/20 0151 WBC 8.25 RBC 5.05 HGB 14.4 HCT 41.5 MCV 82 MCH 28.5 MCHC 34.7 PLT 234 BMP: Recent Labs 03/19/20 0151 NA 140 K 3.8 CL 100 CO2 28 CREATININE 0.69 Cardiac Markers: Recent Labs 03/19/20 0151 TROPONINI 0.214* eGFR calculation: eGFR Date Value [...] history. Presents as a direct transfer from [facility] for further work-up of a NSTEMI. Plan [...] gtt - supplemental O2 if needed -Continue TRANSMISSION DESIGN ENGINEER rosuvastatin 40 mg daily - NPO at midnight for potential intervention (LH) or other testing if needed - ordered lipid profile and A1c - echo ordered - replete if Mg <2 or K <4 - Goal SBP <140 and HR <70 CAD/HTN/HLD -Continue aspirin 81 mg daily -Continue TRANSMISSION DESIGN ENGINEER amlodipine 10 mg -Continue lisinopril 5 mg daily -Continue metoprolol XL 150 mg daily Type 2 Diabetes: A1c ordered, TRANSMISSION DESIGN ENGINEER insulin regimen 40 units glargine twice daily -Decrease TRANSMISSION DESIGN ENGINEER insulin regimen to 30 units twice daily -Hold TRANSMISSION DESIGN ENGINEER metformin 1000 twice daily -Hold TRANSMISSION DESIGN ENGINEER dapagliflozin 5 mg daily -Hold TRANSMISSION DESIGN ENGINEER exenatide microspheres - Consistent carbohydrate diet when eating - POCT Glc Q6 while NPO then before meals and qhs -Sliding scale with aspart Q6 while NPO Depression/sleep -Continue TRANSMISSION DESIGN ENGINEER sertraline 50 mg daily -Continue TRANSMISSION DESIGN ENGINEER trazodone 50 mg daily Diet: NPO VTE [...] 19:28 documented in this encounter Procedure Notes Nash Herron Jr., MD - 03/19/2020 1553 EDT Cardiovascular [...] artery Procedure: He was brought to [facility] Cardiac [facility]athe[facility] for the procedure: Diagnostic [...] as well. Nash Herron Jr., MD PagerNumber: [phone] 03/19/2020 15:53 Shantell Stevenson MD - 03/19/2020 [...] Labs Reviewed: troponin elevation CBC: Recent Labs 03/19/2015003/19/20 0546 WBC 8.25 7.59 HGB 14.4 14.4 HCT 41.5 42.2 MCV 82 82 PLT 234 256 BMP: Recent Labs 03/19/20150 CREATININE 0.69 NA 140 K 3.8 CL 100 CO2 28 Coags: No results for input(s): PROTIME, INR, PTT in the last 72 hours. LFTs: No results for input(s): ALT, AST, GGT, ALKPHOS, TBIL in the last 72 hours. Cardiac Biomarkers: Recent Labs 03/19/20150 TROPONINI 0.214* Lipids: No results for input(s): CHOL, TRIG, HDL, LDLBASE, CHOLHDL in the last 72 hours. Non-Invasive Findings last 24 hours: N/A Telemetry: yes, nonsustained asymptomatic vtach 40 beats. Personally reviewed by FRANSICO pedro ECG: Sinus rhythm with first-degree AV block, rate at 74, personally reviewed by FRANSICO pedro Does the patient have active heart failure? no Assessment/Plan Assessment/Plan Claudia Batista??is is a 64-year-old male with a past medical history significant for coronary arterydisease (S/p 9 stents), type 2 diabetes (insulin-dependent) HTN, HLD, DEEPALI, and significant tobacco use history. Presents as a direct transfer from [facility] for further work-up of a NSTEMI. Plan [...] gtt - supplemental O2 if needed -Continue TRANSMISSION DESIGN ENGINEER rosuvastatin 40 mg daily - NPO at midnight for potential intervention ([facility]) or other testing if needed - ordered lipid profile and A1c - echo ordered - replete if Mg <2 or K <4 - Goal SBP <140 and HR <70 ?? CAD/HTN/HLD -Continue aspirin 81 mg daily -Continue TRANSMISSION DESIGN ENGINEER amlodipine 10 mg -Continue lisinopril 5 mg daily -Continue metoprolol XL 150 mg daily ?? Type 2 Diabetes: A1c ordered, TRANSMISSION DESIGN ENGINEER insulin regimen 40 units glargine twice daily -Decrease TRANSMISSION DESIGN ENGINEER insulin regimen to 30 units twice daily -Hold TRANSMISSION DESIGN ENGINEER metformin 1000 twice daily -Hold TRANSMISSION DESIGN ENGINEER dapagliflozin 5 mg daily -Hold TRANSMISSION DESIGN ENGINEER exenatide microspheres - Consistent carbohydrate diet when eating - POCT Glc Q6 while NPO then before meals and qhs -Sliding scale with aspart Q6 while NPO ?? Depression/sleep -Continue TRANSMISSION DESIGN ENGINEER sertraline 50 mg daily -Continue TRANSMISSION DESIGN ENGINEER trazodone 50 mg daily ?? Diet: NPO [...] PCI's, DM2, HTN, HLD admitted 03/19 from [facility] for NSTEMI. Telemetry demonstrated ~40s of asymptomatic [...] RCA; 2004 stents X2 ??? Diabetes mellitus ([facility]) oral agents ??? Diverticulitis ??? Hyperlipidemia ??? Hypertension ??? NC (myocardial infarction) ([facility]) 1992, 2003 ??? Recurrent infections rt [...] file Gets together: Not on file Attends yarsani service: Not on file Active member of [...] PCI's, DM2, HTN, HLD admitted 03/19 from [facility] for NSTEMI. Telemetry demonstrated asymptomatic [place] 03/19. Repeat C with unchanged disease. Patient was asymptomatic with episode of VT. No evidence of additional recurrence. No interveable disease. Will need to pursue CMR for further characterization prior to proceeding with consideration of ICD. ???CMR ???Continue Toprol-XL 150 mg. Will need episodic EKGs going forward to monitor progression of AV block Case discussed with Dr. Thomas Lopez MD Gas Operations Analyst, PGY-5 Pager [phone] Associated attestation - Bebo Guzman MD - 03/27/2020 1323 EDT I saw and examined the patient with the resident/fellow/nurse practioner. I agree with the findingsand plan of care documented in the resident's/fellow's note. documented in this encounter Miscellaneous Notes Result QuickNote - Joesph Wesley MD - 03/22/2020 1622 EDT I have reviewed the labs/results. No action needed. lan of Lizzie - Jaysahree Espitia RN - 03/22/2020 1602 EDT BP [...] care of pt at 2300, pt s/p [facility] RRA approach with no interventions. Tele- [...] for NSTEMI w/ NSVT. Pt s/p clean [facility]. Pt a/o x 3 and VSS. Bedtime FS 94. Action: MD Reyes notified of FS and lantus held. Assessment per flowsheet and meds per emaR. Response: pt resting in chair no complaints at this time. Plan is for EP to evaluate cardiac MRI results tomorrow. SIDDHARTHA WALTON RN 03/21/2020 21:28 lan of Rock Beth RN - 03/21/2020 0401 EDT BP [...] endorsed mild headache. Action: Meds given per MAR. Monitored tele, VS, blood sugar. Clustered care to promote rest. NPO status maintained after 0000 per orders. Response: SR on tele. VSS. Afebrile. Pt resting in bed, appears comfortable, call manriquez within reach.Plan is for Cardiac MRI today. ROCK GALDAMEZ RN 03/21/2020 4:01 lan of Care - Sima Pace RN - 03/20/2020 1612 EDT BP 105/58 (BP Cuff Location: Left arm, BP Patient Position: Sitting) Temp 36.6 ??C (97.9 ??F) (Tympanic) Resp 16 Ht 175.3 cm (69) Wt (!) 103 kg (227 lb) SpO2 97% BMI 33.52 kg/m?? Data: Assumed care of pt at 0700. VSS on RA, 1st degree AVB on telemetry. Diagnostic [facility] 03/19, [facility]. Denies CP, SOB and dizziness. Ambulating around unit w/o complaints. Action:Assessment and VS documented in flow sheet and medications administered per SEP. Response: VSS, cardiac MRI scheduled for tomorrow. Denies complaints. WCTM. SIMA PACE RN 03/20/2020 16:12 lan of Jessie Best RN - 03/20/2020 0212 EDT [id number] Claudia Batista 64 y.o. male Length of [...] TR band removed, passed orthostatic VSS, contacted MD to inquire about why pt is NPO at midnight and q6h finger sticks, clustered care to promote rest. R: No acute s/sx of distress. Blood sugar 78 at midnight, given juice. Plan to recheck again in AM. JESSIE MART RN 03/20/2020 2:12 lan of Care - Eulogio Kyle RN - 03/19/2020 0040 EDT Data: Patient admitted to [id number] for NSTEMI. On tele patient in first [...] now patient resting comfortably at this time. EULOGIO KYLE RN 03/19/2020 0:40 Problem: High Fall Risk: Goal: Patient will Remain Free of Falls due to Med. Side Effects Outcome: Ongoing Problem: High Fall Risk: Goal: Patient Will Remain Free from Fall-Related Injury Outcome: Ongoing documented in this encounter Plan of Treatment Upcoming Encounters Date Type Specialty Care Team Description 09/29/2022 Office Visit Gastroenterology and Shaq Phan, Hepatology [address] [facility] [place] [address] (Wo rk) documented as of [...] Glucose, POC 135 (H) 70 - 100 [facility] mg/dL LABORATORY [employer] team [facility] LABORATORY SERVICES HN LAB POC COMMENT Test Performed by [facility] [employer] R (GLUCOSE) Nursing Services LABORATORY SERVICES Specimen Blood - Capillary blood (substance) Performing Organization Address City/State/ZIP Code Phon e Number [facility] LABORATORY [address] [place] [address] SERVICES (ABNORMAL) POCT GLUCOSE, INTERFACED (03/22/2020 5:55 EDT) Glucose, POC 131 (H) 70 - 100 [facility] mg/dL LABORATORY [employer] sales and lending team [facility] LABORATORY SERVICES HN LAB POC COMMENT Test Performed by [facility] [employer] R (GLUCOSE) Nursing Services LABORATORY SERVICES Specimen Blood - Capillary blood (substance) Performing Organization Address City/[facility]/ZIP Code Phon e Number [facility] LABORATORY [address] [place] [address] SERVICES POCT GLUCOSE, INTERFACED (03/21/2020 20:11 EDT) Glucose, POC 94 70 - 100 [facility] mg/dL LABORATORY [employer] sales and lending team [facility] LABORATORY SERVICES HN LAB POC COMMENT Test [facility] Nursing Services LABORATORY SERVICES Specimen Blood - Capillary blood (substance) Performing Organization Address [facility] Phon e Number [facility] LABORATORY [address] [place] [address] SERVICES (ABNORMAL) POCT GLUCOSE, INTERFACED (03/21/2020 17:21 EDT) Glucose, POC 199 (H) 70 - 100 [facility] mg/dL LABORATORY [employer] sales and lending team [facility] LABORATORY SERVICES HN LAB POC COMMENT Test [facility] Nursing Services LABORATORY SERVICES Specimen Blood - Capillary blood (substance) Performing Organization Address [facility] Phon e Number [facility] LABORATORY [address] [place] [address] SERVICES MR CARDIAC W WO CONTRAST (03/21/2020 14:43 EDT) Anatomical Region Laterality Modality Chest Magnetic Resonance Specimen Impressions [facility] RADIOLOGY [facility] - 03/21/2020 17:25 EDT 1. ?? Small subendocardial infarction involving the basilar inferior wall of the left ventricle. 2. ??Mildly reduced left ventricular eje ction fraction of 50%. I have personally reviewed the images an d the above interpretation and agree with the findings. Narrative [facility] RADIOLOGY [facility] - 03/21/2020 17:25 EDT MR CARDIAC W [...] Minimal hypokinesis inferior wall. Mid heart: normal. Firth: normal. The left ventricular chamber is normal [...] Minimal hypokinesis inferior wall. Mid heart: normal. [place]: normal. The left ventricular chamber is normal [...] agree with the findings. Performing Organization Address City/[facility]/ZIP Code Phon e Number [facility] RADIOLOGY MAIN [place] XR ORBITS FOR FOREIGN BODY (03/21/2020 13:30 EDT) Anatomical Region Laterality Modality Computed Radiography Specimen Narrative [facility] RADIOLOGY MAIN [place] - 03/21/2020 13:34 EDT XR ORBITS FOR [...] air cells are clear. Performing Organization Address City/State/ZIP Code Phon e Number [facility] (ABNORMAL) POCT GLUCOSE, INTERFACED (03/21/2020 12:03 EDT) Glucose, POC 138 (H) 70 - 100 [facility] mg/dL LABORATORY [employer] [facility] LABORATORY SERVICES HN LAB POC COMMENT Test Performed by [facility] (GLUCOSE) Nursing Services LABORATORY SERVICES Specimen Blood - Capillary blood (substance) Performing Organization Address City/State/ZIP Code Phon e Number [facility] LABORATORY [address] [place] [address] SERVICES CREATININE (03/21/2020 5:59 EDT) Creatinine 0.71 0.66 - 1.25 [facility] mg/dL LABORATORY SERVICES eGFR 98Comment: eGFR >60 [facility] calculated using mL/min/1.73m2 LABORATORY SERVICES CKD-EPI equation for non- Americans. Multiply eGFR by 1.16 for patients. Specimen Blood - Venous blood (substance) Performing Organization Address [facility] Phon e Number [facility] LABORATORY [address] [place] [address] SERVICES ELECTROLYTES (03/21/2020 5:59 EDT) Pathologist Sig nature Sodium 141 136 - 145 mEq/L [facility] LABORA TORY SERVICES Potassium 4.7 3.5 - 5.0 mEq/L [facility] LABORA TORY SERVICES Chloride 100 96 - 110 mEq/L [facility] LABORAT ORY SERVICES CO2 Total 28 22 - 32 mEq/L [facility] LABORATO RY SERVICES Specimen Blood - Venous blood (substance) Performing Organization Address [facility] e Number [facility] LABORATORY [address] [place] [phone] SERVICES COMPLETE BLOOD COUNT (03/21/2020 5:59 EDT) Pathologist Sig nature WBC 6.44 4.00 - 10.40 K/cmm [facility] LABORATORY SERVICES RBC 5.16 4.36 - 5.78 M/cmm [facility] LABORATORY SERVICES Hemoglobin 14.4 13.8 - 17.3 gm/dL [facility] LABORATORY SERVICES HCT 43.1 39.5 - 50.2 % [facility] LABORATORY SERVICES MCV 84 81 - 95 fl [facility] LABORATORY SERVICES MCH 27.9 27.6 - 33.0 pg [facility] LABORATORY SERVICES MCHC 33.4 32.8 - 36.4 gm/dL [facility] LABORATORY SERVICES RDW-CV 13.5 <14.2 % [facility] LABORATORY SERVICES RDW-SD 41.6 <46.0 fl [facility] LABORATORY SERVICES PLT 223 141 - 377 K/cmm [facility] LABORATORY SERVICES MPV 10.1 9.5 - 12.7 fl [facility] LABORATORY SERVICES Specimen Blood - Venous blood (substance) Performing Organization Address [facility] Phon e Number [facility] LABORATORY [address] [place] [phone] SERVICES (ABNORMAL) POCT GLUCOSE, INTERFACED (03/21/2020 5:58 EDT) Glucose, POC 117 (H) 70 - 100 [facility] mg/dL LABORATORY [employer] [facility] LABORATORY SERVICES HN LAB POC COMMENT Test Performed by [facility] [employer] R (GLUCOSE) Nursing Services LABORATORY SERVICES Specimen Blood - Capillary blood (substance) Performing Organization Address City/[facility]/ZIP Code Phon e Number [facility] LABORATORY [address] [place] [address] SERVICES (ABNORMAL) POCT GLUCOSE, INTERFACED (03/20/2020 20:23 EDT) Glucose, POC 109 (H) 70 - 100 [facility] mg/dL LABORATORY [employer] [facility] LABORATORY SERVICES HN LAB POC COMMENT Test Performed by [facility] [employer] R (GLUCOSE) Nursing Services LABORATORY SERVICES Specimen Blood - Capillary blood (substance) Performing Organization Address City/[facility]/ZIP Code Phon e Number [facility] LABORATORY [address] [place] [address] SERVICES (ABNORMAL) POCT GLUCOSE, INTERFACED (03/20/2020 16:53 EDT) Glucose, POC 119 (H) 70 - 100 [facility] mg/dL LABORATORY [employer] [facility] LABORATORY SERVICES HN LAB POC COMMENT Test Performed by [facility] [employer] (GLUCOSE) Nursing Services LABORATORY SERVICES Specimen Blood - Capillary blood (substance) Performing Organization Address City/[facility]/ZIP Code Phon e Number [facility] LABORATORY [address] [place] [address] SERVICES (ABNORMAL) POCT GLUCOSE, INTERFACED (03/20/2020 12:23 EDT) Glucose, POC 115 (H) 70 - 100 [facility] mg/dL LABORATORY [employer] team [facility] LABORATORY SERVICES HN LAB POC COMMENT Test Performed by [facility] [employer] (GLUCOSE) Nursing Services LABORATORY SERVICES Specimen Blood - Capillary blood (substance) Performing Organization Address City/[facility]/ZIP Code Phon e Number [facility] LABORATORY [address] [place] [address] SERVICES (ABNORMAL) POCT GLUCOSE, INTERFACED (03/20/2020 6:00 EDT) Glucose, POC 103 (H) 70 - 100 [facility] mg/dL LABORATORY [employer] team [facility] LABORATORY SERVICES HN LAB POC COMMENT Test [facility] Nursing Services LABORATORY SERVICES Specimen Blood - Capillary blood (substance) Performing Organization Address City/[facility]/ZIP Code Phon e Number [facility] LABORATORY [address] [place] [address] SERVICES (ABNORMAL) POCT GLUCOSE, INTERFACED (03/20/2020 3:08 EDT) Glucose, POC 108 (H) 70 - 100 [facility] mg/dL LABORATORY [employer] team [facility] LABORATORY SERVICES HN LAB POC COMMENT Test Performed by [facility] (GLUCOSE) Nursing Services LABORATORY SERVICES Specimen Blood - Capillary blood (substance) Performing Organization Address [facility]/ZIP Code Phon e Number [facility] LABORATORY [address] [place] [address] SERVICES (ABNORMAL) TROPONIN I (03/20/2020 2:11 EDT) Pathologist Sig nature Troponin I (ng/mL) 0.140 (H) <0.034 ng/mL [facility] LABORATORY SERVICES Specimen Blood - Venous blood (substance) Narrative [facility] LABORATORY SERVICES - 03/20/2020 2:54 EDT The results of this assay can be falsely lowered due to the consumption of Biotin. Performing Organization Address City/[facility]/ZIP Code Phon e Number [facility] LABORATORY [address] [place] [address] SERVICES CREATININE (03/20/2020 2:11 EDT) Creatinine 0.79 0.66 - 1.25 [facility] mg/dL LABORATORY SERVICES eGFR 94Comment: eGFR >60 [facility] calculated using mL/min/1.73m2 LABORATORY SERVICES CKD-EPI equation for non- Americans. Multiply eGFR by 1.16 for patients. Specimen Blood - Venous blood (substance) Performing Organization Address City/[facility]/ZIP Code Phon e Number [facility] LABORATORY [address] [place] [address] SERVICES ELECTROLYTES (03/20/2020 2:11 EDT) Pathologist Sig nature Sodium 138 136 - 145 mEq/L [facility] LABORA TORY SERVICES Potassium 4.3 3.5 - 5.0 mEq/L [facility] LABORA TORY SERVICES Chloride 99 96 - 110 mEq/L [facility] LABORAT ORY SERVICES CO2 Total 30 22 - 32 mEq/L [facility] LABORATO RY SERVICES Specimen Blood - Venous blood (substance) Performing Organization Address City/State/ZIP Code Phon e Number [facility] LABORATORY [address] [place] [address] SERVICES COMPLETE BLOOD COUNT (03/20/2020 2:11 EDT) Pathologist Sig nature WBC 8.07 4.00 - 10.40 K/cmm [facility] LABORATORY SERVICES RBC 5.09 4.36 - 5.78 M/cmm [facility] LABORATORY SERVICES Hemoglobin 14.1 13.8 - 17.3 gm/dL [facility] LABORATORY SERVICES HCT 42.2 39.5 - 50.2 % [facility] LABORATORY SERVICES MCV 83 81 - 95 fl [facility] LABORATORY SERVICES MCH 27.7 27.6 - 33.0 pg [facility] LABORATORY SERVICES MCHC 33.4 32.8 - 36.4 gm/dL [facility] LABORATORY SERVICES RDW-CV 13.7 <14.2 % [facility] LABORATORY SERVICES RDW-SD 41.1 <46.0 fl [facility] LABORATORY SERVICES PLT 212 141 - 377 K/cmm [facility] LABORATORY SERVICES MPV 10.2 9.5 - 12.7 fl [facility] LABORATORY SERVICES Specimen Blood - Venous blood (substance) Performing Organization Address City/State/ZIP Code Phon e Number [facility] LABORATORY [address] [place] [address] SERVICES POCT GLUCOSE, INTERFACED (03/19/2020 23:37 EDT) Glucose, POC 79 70 - 100 [facility] mg/dL LABORATORY [employer] [facility] LABORATORY SERVICES HN LAB POC COMMENT Test Performed by [facility] [employer] (GLUCOSE) Nursing Services LABORATORY SERVICES Specimen Blood - Capillary blood (substance) Performing Organization Address City/State/ZIP Code Phon e Number [facility] LABORATORY [address] [place] [address] SERVICES (ABNORMAL) POCT GLUCOSE, INTERFACED (03/19/2020 21:00 EDT) Glucose, POC 144 (H) 70 - 100 [facility] mg/dL LABORATORY [employer] [facility] LABORATORY SERVICES HN LAB POC COMMENT Test Performed by [facility] [employer] (GLUCOSE) Nursing Services LABORATORY SERVICES Specimen Blood - Capillary blood (substance) Performing Organization Address City/[facility]/ZIP Code Phon e Number [facility] LABORATORY [address] [place] [address] SERVICES POCT GLUCOSE, INTERFACED (03/19/2020 18:00 EDT) Pathologist Henrry Glucose, POC 81 70 - 100 [facility] mg/dL LABORATORY [employer] [facility] LABORATORY SERVICES HN LAB POC COMMENT Test Performed by [facility] CHRISTIAN Banda (GLUCOSE) Nursing Services LABORATORY SERVICES Specimen Blood - Capillary blood (substance) Performing Organization Address City/State/ZIP Code Phon e Number [facility] LABORATORY [address] [place] [address] SERVICES (ABNORMAL) TROPONIN I (03/19/2020 17:56 EDT) Pathologist Sig nature Troponin I (ng/mL) 0.151 (H) <0.034 ng/mL [facility] LABORATORY SERVICES Specimen Blood - Venous blood (substance) Narrative [facility] LABORATORY SERVICES - 03/19/2020 18:53 EDT The results of this assay can be falsely lowered due to the consumption of Biotin. Performing Organization Address City/State/ZIP Code Phon e Number [facility] LABORATORY [address] [place] [phone] SERVICES LEFT HEART CATH (03/19/2020 16:03 EDT) Specimen Narrative [facility] CARDIOLOGY MAIN CAMPU S - 03/21/2020 10:30 EDT Cardiology [address] [place] [address] Catheterization Laboratory Study Patient: Claudia Batista ? Study Date: ?03/19/2020 ?Accession #: ? [id number] : ? 1955 Referring: Joesph Wesley Diagnostic Attending: ??Nash Herron Interventional Attending: ?? Lisa Herron Diagnostic Fellow: Luis Garcia Interventional Fellow: Chaparrita Mclain ATTESTATION: I, Dr. Luis Garcia was the initial aut hor of this [...] radial artery access. A 6 Fr/10 /.021 [place] Sheath SLENDER ?? sheath was advanced into [...] ?? advanced into the right coronary ves fredy ostium under fluoroscopic ?? guidance. Contrast was [...] City/State/ZIP Code Phon e Number [facility] CARDIOLOGY MAIN CAMPUS TRANSTHORACIC ECHO (TTE) COMPLETE W/DOPPLER W/CF W/ CONTRAST (03/19/2020 13:58 EDT) [facility] [place] Atrial Length A2C 5.2 cm [facility] [...] CARE A4C LV end-diastolic volume, 121 ml [facility] POINT OF C ARE 1-p A4C Specimen Narrative [facility] POINT OF CARE - 03/19/2020 14:22 E [...] systolic function was normal. Performing Organization Address [facility]/ZIP Code Phon e Number [facility] POINT OF CARE (ABNORMAL) POCT GLUCOSE, INTERFACED (03/19/2020 11:52 EDT) Glucose, POC 124 (H) 70 - 100 [facility] mg/dL LABORATORY [employer] [facility] LABORATORY SERVICES HN LAB POC COMMENT Test Performed by [facility] (GLUCOSE) Nursing Services LABORATORY SERVICES Specimen Blood - Capillary blood (substance) Performing Organization Address [facility] Phon e Number [facility] LABORATORY [address] [place] [address] SERVICES HEPARIN LEVEL - UNFRACTIONATED HEPARIN (03/19/2020 9:02 EDT) Heparin 0.36Comment: Therapeutic [facility] Unfractionated Range: 0.30 - CENTER heparin therapeutic [...] blood (substance) Performing Organization Address [facility]/ZIP [facility] Phon e Number [facility] LABORATORY [address] [place] [phone] SERVICES (ABNORMAL) TROPONIN I (03/19/2020 9:01 EDT) Pathologist Sig nature Troponin I (ng/mL) 0.191 (H) <0.034 ng/mL [facility] LABORATORY SERVICES Specimen Blood - Venous blood (substance) Narrative [facility] LABORATORY SERVICES - 03/19/2020 10:49 EDT The results of this assay can be falsely lowered due to the consumption of Biotin. Performing Organization Address City/[facility] [email or web address]] Code Phon e Number [facility] LABORATORY [address] [place] [address] SERVICES (ABNORMAL) POCT GLUCOSE, INTERFACED (03/19/2020 6:51 EDT) Glucose, POC 128 (H) 70 - 100 [facility] mg/dL LABORATORY [employer] [facility] LABORATORY SERVICES HN LAB POC COMMENT Test Performed by [facility] [employer]ema R (GLUCOSE) Nursing Services LABORATORY SERVICES Specimen Blood - Capillary blood (substance) Performing Organization Address [facility] Phon e Number [facility] LABORATORY [address] [place] [phone] SERVICES COMPLETE BLOOD COUNT (03/19/2020 5:46 EDT) Pathologist Sig nature WBC 7.59 4.00 - 10.40 K/cmm [facility] LABORATORY SERVICES RBC 5.13 4.36 - 5.78 M/cmm [facility] LABORATORY SERVICES Hemoglobin 14.4 13.8 - 17.3 gm/dL [facility] LABORATORY SERVICES HCT 42.2 39.5 - 50.2 % [facility] LABORATORY SERVICES MCV 82 81 - 95 fl [facility] LABORATORY SERVICES MCH 28.1 27.6 - 33.0 pg [facility] LABORATORY SERVICES MCHC 34.1 32.8 - 36.4 gm/dL [facility] LABORATORY SERVICES RDW-CV 13.8 <14.2 % [facility] LABORATORY SERVICES RDW-SD 40.7 <46.0 fl [facility] LABORATORY SERVICES PLT 256 141 - 377 K/cmm [facility] LABORATORY SERVICES MPV 11.1 9.5 - 12.7 fl [facility] LABORATORY SERVICES Specimen Blood - Venous blood (substance) Performing Organization Address [facility] Phon e Number [facility] LABORATORY [address] [place] [address] SERVICES POCT GLUCOSE, INTERFACED (03/19/2020 2:56 EDT) Glucose, POC 88 70 - 100 [facility] mg/dL LABORATORY [employer] team [facility] LABORATORY SERVICES HN LAB POC COMMENT Test Performed by [facility] ANDIE Banda (GLUCOSE) Nursing Services LABORATORY SERVICES Specimen Blood - Capillary blood (substance) Performing Organization Address [facility]/ZIP [facility] Phon e Number [facility] LABORATORY [address] [place] [address] SERVICES (ABNORMAL) HEMOGLOBIN A1C (03/19/2020 1:51 EDT) Hemoglobin A1c 7.4 (H) <5.7 % [facility] Comment: LABORATORY SERVICES Glycemic Status References: Normal: [...] Est Avg Glucose 166Comment: The eAG mg/dL [facility] represents the A1c LABORATORY SERVICES result expressed as average glucose in mg/dL. Specimen Blood - Venous blood (substance) Performing Organization Address City/[facility]/ZIP Code Phon e Number [facility] LABORATORY [address] [place] [address] SERVICES (ABNORMAL) TROPONIN I (03/19/2020 1:51 EDT) Pathologist Sig nature Troponin I (ng/mL) 0.214 (H) <0.034 ng/mL [facility] LABORATORY SERVICES Specimen Blood - Venous blood (substance) Narrative [facility] LABORATORY SERVICES - 03/19/2020 2:32 EDT The results of this assay can be falsely lowered due to the consumption of Biotin. Performing Organization Address City/[facility]/ZIP Code Phon e Number [facility] LABORATORY [address] [place] [address] SERVICES CREATININE (03/19/2020 1:51 EDT) Creatinine 0.69 0.66 - 1.25 [facility] mg/dL LABORATORY SERVICES eGFR 100Comment: eGFR >60 [facility] calculated using mL/min/1.73m2 LABORATORY SERVICES CKD-EPI equation for non- Americans. Multiply eGFR by 1.16 for patients. Specimen Blood - Venous blood (substance) Performing Organization Address [facility] Phon e Number [facility] LABORATORY [address] [place] [address] SERVICES ELECTROLYTES (03/19/2020 1:51 EDT) Pathologist Sig nature Sodium 140 136 - 145 mEq/L [facility] LABORA TORY SERVICES Potassium 3.8 3.5 - 5.0 mEq/L [facility] LABORA TORY SERVICES Chloride 100 96 - 110 mEq/L [facility] LABORAT ORY SERVICES CO2 Total 28 22 - 32 mEq/L [facility] LABORATO RY SERVICES Specimen Blood - Venous blood (substance) Performing Organization Address [facility] Phon e Number [facility] LABORATORY [address] [place] [address] SERVICES COMPLETE BLOOD COUNT (03/19/2020 1:51 EDT) Pathologist Sig nature WBC 8.25 4.00 - 10.40 K/cmm [facility] LABORATORY SERVICES RBC 5.05 4.36 - 5.78 M/cmm [facility] LABORATORY SERVICES Hemoglobin 14.4 13.8 - 17.3 gm/dL [facility] LABORATORY SERVICES HCT 41.5 39.5 - 50.2 % [facility] LABORATORY SERVICES MCV 82 81 - 95 fl [facility] LABORATORY SERVICES MCH 28.5 27.6 - 33.0 pg [facility] LABORATORY SERVICES MCHC 34.7 32.8 - 36.4 gm/dL [facility] LABORATORY SERVICES RDW-CV 13.7 <14.2 % [facility] LABORATORY SERVICES RDW-SD 40.5 <46.0 fl [facility] LABORATORY SERVICES PLT 234 141 - 377 K/cmm [facility] LABORATORY SERVICES MPV 10.0 9.5 - 12.7 fl [facility] LABORATORY SERVICES Specimen Blood - Venous blood (substance) Performing Organization Address [facility]/ZIP [facility] Phon e Number [facility] LABORATORY [address] [place] [phone] SERVICES HEPARIN LEVEL - UNFRACTIONATED HEPARIN (03/19/2020 1:51 EDT) Heparin Level-UFH 0.24 Therapeutic Range: [facility] R 0.30 - 0.70 IU/mL LABORATORY SERVICES Specimen Blood - Venous blood (substance) Narrative [facility] LABORATORY SERVICES - 03/19/2020 2:16 EDT Sample retested, result confirmed Performing Organization Address [facility] [email or web address]] Code Phon e Number [facility] LABORATORY [address] [place] [phone] SERVICES EKG 12-LEAD (03/19/2020 0:10 EDT) Specimen Narrative [facility] EKG - 04/17/2020 8:44 EDT ? [facility] ? Test Date: ?2020-03-19 Pat Name: ? CLAUDIA BATISTA ? Department: ?? [place] [address] ? Room: ? [id number] Gender: ? Male ? 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 [id number] : ?1955 ? Requested By: JULIAN Acuna Order Number: [id number] ? Messi HAYES: ?? ANETA HAN MD ? Measurements Intervals ?[place] ? Rate: ? 72 ? P: ?50 [place]: ? 214 ?QRS: ?69 QRSD: ? 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: [id number] : 1955 Requested By: JULIAN Acuna Order Number: [id number] Reading MD: Jaime HAN MD Measurements Intervals [place] Rate: 72 P: 50 [place]: 214 QRS: 69 QRSD: 125 T: 6 [...] City/State/ZIP Code Phon e Number [facility] EKG POCT GLUCOSE, INTERFACED (03/18/2020 23:20 EDT) Glucose, POC 98 70 - 100 [facility] mg/dL LABORATORY [employer] team [facility] LABORATORY SERVICES HN LAB POC COMMENT Test Performed by [facility] [employer] (GLUCOSE) Nursing Services LABORATORY SERVICES Specimen Blood - Capillary blood (substance) Performing Organization Address City/State/ZIP Code Phon e Number [facility] LABORATORY [address] [place] [address] SERVICES documented in this encounter Visit Diagnoses Not on filedocumented in this encounter Administered Medications Inactive Administered Medications - up to 3 most recent administrations Medication Order MAR Action Action Date Dose Rate Site acetaminophen (TYLENOL) tablet 650 Given 03/22/2020 13:06 EDT 65 0 mg mg 650 mg, oral, EVERY 4 HOURS PRN, Starting on Thu03/19/20 at 1557, Until Darlin 03/22/20 at 1822, [...] mg Given 03/20/2020 8:35 EDT 81 mg fentaNYL citrate (PF) injection Given 03/19/2020 15:39 EDT 50 mcg PRN, Starting on Thu03/19/20 at 1533, Until Thu03/19/20 at 1558, Routine, Intraprocedure Given 03/19/2020 15:33 EDT 50 mcg heparin injection 5,000 Units 5,000 Units, subcutaneous, EVERY 8 HOURS , First dose on Thu03/20/20 at 1600, Until Discontinued, Routine insulin glargine (LANTUS SOLOSTAR) injection Given 09/2019 12:59 EDT 20 Units pen 20 Units 20 Units, subcutaneous, 2 TIMES DAILY, First dose on Thu03/19/20 at 0215, Until Discontinued, Routine Given 03/20/2020 8:38 EDT 20 Units Given 03/19/2020 20:09 EDT 20 Units iopamidoL (ISOVUE-370) injection Given 03/19/2020 15:50 EDT 50 mL PRN, Starting on Thu03/19/20 at 1550, Until Thu03/19/20 at 1604, Routine, Intraprocedure isosorbide mononitrate (IMDUR) CR tablet 15 mg Given 03/22/2020 9:28 EDT 15 mg 15 mg, oral, DAILY, First dose on Thu03/21/20 at 1200, Until Discontinued, Routine Given 03/21/2020 15:30 EDT 15 mg lidocaine 20 mg/mL (2 %) injection 1 dose, Starting on Thu03/19/20 at 1508, Until Darlin 03/22 at 1822 lisinopriL (PRINIVIL) tablet 5 mg Given 03/22/2020 9:28 EDT 5 mg 5 mg, oral, DAILY, First dose on Thu03/19/20 at 0900, Until Discontinued, Routine Given 03/21/2020 8:41 EDT 5 mg Given 03/20/2020 8:35 EDT 5 mg LORazepam (ATIVAN) tablet 0.5 mg 0.5 mg, [...] at 1508, Until Darlin 03/22 at 1822 midazolam (PF) (VERSED) injection Given 03/19/2020 15:34 EDT 2 mg PRN, Starting on Thu03/19/20 at 1534, Until Thu03/19/20 at 1604, Routine, Intraprocedure nitroglycerin 100 mcg/mL syringe 1 dose, Starting on Thu03/19/20 at 1508, Until Darlin 03/22 at 1822 rosuvastatin (CRESTOR) tablet 40 mg Given 03/22/2020 [...] mL Given 03/20/2020 21:00 EDT 3 mL sodium chloride 0.9 % (NS) infusion New Bag 03/19/2020 15:23 EDT 25 mL/hr 25 mL/hr FA IP EQF CONTINUOUS PRN FOR ONE STEP MEDS, Starting on Thu03/19/20 at 1523, Until Thu03/19/20 at 1523, Routine, Intraprocedure traZODone (DESYREL) tablet 50 mg Given 03/21/2020 [...] 0928 (Given - Provider: Jayashree Espitia RN) 10 mg, oral, DAILY, First dose on Thu at 0900, Until Discontinued, Routine aspirin chewable tablet 81 mg 0835 (Given - Provider: Sima renee RN) 0841 (Given - Provider: Roya Hall [...] - Comment: ambulation)2304 (Not Given - Provider: Rock Galdamez RN - Reason: Patient/family refused - [...] not met) 0600 (Not Given - Provider: Rock Galdamez RN - Reason: Order parameters not [...] Until Discontinued 2304 (Not Given - Provider: Rock banda RN - Reason: Order parameters not [...] Sima Pace RN)2053 (Not Given - Provider: Rock Galdamez RN - Reason: NPO - Comment: held per MD Molina orders.) 0840 (Not Given - Provider: Roya Hall RN - Reason: Patient/family refused)2038 (Not Given - Provider: Siddhartha Walton RN [...] Comment: BP 119/70)1816 (Given - Provider: Sima Pcae RN - Comment: BP 110/70) 0604 (Given - Provider: Rock Galdamez RN) 5 mg, oral, 3 TIMES [...] 0841 (Given - Provider: Roya Hall, JANNY) 09 (Giv en - Provider: Jayashree Espitia RN) 150 mg, oral, DAILY, First dose on Thu03/19/20 at 0900, Until Di scontinued rosuvastatin (CRESTOR) tablet 40 mg 0835 (Given - Provider: Sima Pace RN) 0841 (Given - Provider: Roya Hall RN) 09 (Given - Provider: Jayashree Espitia RN) 40 mg, oral, DAILY, First dose on Thu at 0900, Until Discontinued, Routine sertraline (ZOLOFT) tablet 50 mg 0836 (Given - Provider: Remberto Pace RN) 0841 (Given - Provider: Roya Hall RN) 09 (Given - Provider: Jayashree Espitia RN) 50 mg, oral, DAILY, First dose (after la st modification) on Thu03/19/20 at 0215, Until Discontinued, Routine sodium chloride 0.9 % (flush) flush 3 mL 0008 (Given - Provider: Jessie Mart RN)0838 (Given - Provider: Sima Pace RN)1701 (Not Given - Provider: Sima Pace RN - Reason: Other)2100 (Given - Provider: Rock Galdamez RN) 0809 (Given - Provider: Roya [...] 50 mg 2054 (Given - Provider: Naheed Galdamez RN) 2036 (Given - Provider: Siddhartha Walton, JANNY) 50 mg, oral, AT BEDTIME, First dose (aft er last modification) on Thu03/19/20 at 0215, Until Discontinued, Routine PRN Medication Order 03/20/2020 03/21/2020 03/22/2020 acetaminophen (TYLENOL) tablet 650 mg 1125 (Given - Pr ovider: Sima Pace RN)1905 (Given - Provider: Sima Pace RN) 0639 (Given - Provider: Rock Galdamez RN) 1306 (Given - Provider: Veronika [...] ered Date First Ordered Date Been Administered gadobutroL (GADAVIST PFS) solution 1 03/21/2020 solution 1-15 mmol isosorbide mononitrate (IMDUR) CR tablet 1 020 15 mg LORazepam (ATIVAN) injection 0.5 mg 1 03/21/2020 LORazepam (ATIVAN) tablet 0.5 mg 1 03/21/2020 heparin injection 5,000 Units 1 03/20/2020 acetaminophen (TYLENOL) tablet 650 mg 1 03/19/2020 amLODIPine (NORVASC) tablet 10 mg 03/19/2020 aspirin chewable tablet 81 mg 1 03/19/2020 dextrose 50 % solution 12.5 g 03/19/2020 fentaNYL citrate (PF) 50 mcg/mL injection 2019 glucagon injection 1 mg 1 03/19/2020 heparin 1,000 unit/mL injection 03/19/2020 heparin 1,000 unit/mL injection 2,900 1 03/19/2020 Units heparin 1,000 unit/mL injection 5,900 1 03/19/2020 Units heparin in 07/21 NS 25,000 unit/250 mL 2 03/19/2020 03/18/2020 infusion insulin aspart U-100 (NOVOLOG FLEXPEN) 1 0 injection insulin glargine (LANTUS SOLOSTAR) 1 03/19/2020 injection pen 20 Units isosorbide dinitrate (ISORDIL) tablet 5 mg 1 03/19 lidocaine 20 mg/mL (2 %) injection 1 03/19/2020 lisinopriL (PRINIVIL) tablet 5 mg 1 03/19/2020 metoprolol XL (TOPROL-XL) tablet 150 mg 1 03/19/20 20 midazolam (PF) (VERSED) 1 mg/mL injection 1 2019 nitroglycerin 100 mcg/mL syringe 1 03/19/2020 perflutren lipid microspheres (DEFINITY) 1 020 0.165 mg in sodium chloride (PF) 1 mL rosuvastatin (CRESTOR) tablet 40 mg 1 03/19/2020 sertraline (ZOLOFT) tablet 50 mg 2 03/19/2020 sodium chloride 0.9 % (flush) flush 3 mL 1 020 ticagrelor (BRILINTA) tablet 90 mg 1 03/19/2020 traZODone (DESYREL) tablet 50 mg 2 03/19/2020 verapamiL (ISOPTIN) 2.5 mg/mL injection 1 03/19/20 20 Procedures Count Last Ordered Date First Ordered Date ECG REPORT - SCANNED 3 04/17/2020 03/27/2020 Nursing Count Last Ordered Date First Ordered Date HEIGHT AND WEIGHT 1 03/19/2020 MEASURE WEIGHT 1 03/19/2020 NOTIFY PHYSICIAN (SPECIFY) 3 03/19/2020 NURSING ORDER: HEPARIN PROTOCOL (CARDIAC 1 020 INDICATION) PATIENT AT LOW RISK FOR VTE: RISK OF 03/19/2020 MECHANICAL PROPHYLAXIS OUTWEIGHS PATIENT AT LOW RISK FOR VTE: RISK OF 03/19/2020 PHARMACOLOGIC PROPHYLAXIS OUTWEIG Admission Count Last Ordered Date First Ordered Date ADMIT TO INPATIENT 1 03/19/2020 Discharge Count Last Ordered Date First Ordered Date DISCHARGE PATIENT 1 03/22/2020 Case Request Count Last Ordered Date First Ordered Date CASE REQUEST WIGS SALESPERSON 1 03/19/2020 documented in this encounter Care Teams Visitor Information Assistant Relationship Specialty Start Date End Date Denise Hooker, NON DESTRUCTIVE TESTING SPECIALIST PCP - General 09/13/18 [address] [place] [address] documented as of this encounter
--- OUTSIDE RECORDS SUMMARY | 2022-02-21 01:12 | XMS_ITS | Encounter Summary ---
:1955 Author Organization [facility] Address [address] [place] [address] Care Team Providers Name Role Phone Denise Hooker APRN Primary Care Provider [phone] Reason for Visit Reason Onset Date Comments Testing 11/30/2018 need help scheduling two tests Encounter Details Date Type Department Care Team Description 11/30/2018 Telephone [facility] Broderick Galloway Tes ting (need help Cardiology - Jenelle HAYES scheduling two tests ) [address] [address] [place] [address] Social History Tobacco Use Types Packs/Day Years Used Date Former Smoker 20 Quit: 04/13/19 82 Smokeless Tobacco: Never Used Alcohol Use Standard [...] do you have serious difficulty hearing? No 02/10/2016 Are you blind or do you have serious difficulty seeing, No 02/10/2016 even when wearing glasses? Do you have serious difficulty walking or climbing No 02/10/2016 stairs? (5 years old or older) Do you have difficulty dressing or bathing? (5 years old No 02/10/2016 or older) Because of a physical, mental, or emotional condition, No 09/10/2017 does this person have difficulty doing errands alone such as visiting a doctor's office or shopping? Cognitive Status Response Date of Assessment Because of a physical, mental, or emotional condition, Yes 09/10/2017 does this person have serious difficulty concentrating, remembering, or making decisions? documented as of this encounter Miscellaneous Notes Telephone Encounter - Amy Roy RN - 12/03/2018 0922 EDT Pt transferred yesterday to [facility] to Cardiology team. elephone Encounter - Courtney Moore - 12/02/2018 1023 EDT Spoke with ordering office. They will try to get the pt in sooner at a facility closer to the pt. elephone Encounter - Jono Cowart - 11/30/2018 1645 EDT LEGISLATIVE ANALYST calling from [facility] office stating they have been trying to get a echo and stress test referralsent over and get authorized and they are having a hard time getting these scheduled. LEGISLATIVE ANALYST put me on hold to speak with the referral department and we got disconnected . They need help trying to figure out why this isn't going through and why we haven't received the referral documented in this encounter Plan of Treatment Upcoming Encounters Date Type Specialty Care Team Description 09/29/2022 Office Visit Gastroenterology and Shaq Phan, Hepatology [address] [facility], [address] [place] [phone] (Wo rk) documented as of this encounter Visit Diagnoses Not on filedocumented in this encounter Care Teams Mime Artist Relationship Specialty Start Date End Date Denise Hooker APRN PCP - General 09/13/18 [address] [place] [address] documented as of this encounter
--- OUTSIDE RECORDS SUMMARY | 2022-02-21 01:12 | XMS_ITS | Encounter Summary ---
:1955 Author Organization [facility] Address [address] [place] [address] Care Team Providers Name Role Phone Gregoria Nicholas MD Primary Care Provider Reason for Visit Reason Onset Date Comments Advice Only 09/03/2015 Encounter Details Date Type Department Care Team Description 09/03/2015 Telephone [facility] Aury Galloway rd, MD Advice Only Cardiology - [facility] [address] [facility] [address] [place], [place] [address] [place] [address] [phone] (Wo rk) Social History Tobacco Use [...] Status Functional Status Response Date of Assessment Because of a physical, mental, or emotional condition, No 03/27/2015 does this person have difficulty doing errands alone such as visiting a doctor's office or shopping? Cognitive Status Response Date of Assessment Because of a physical, mental, or emotional condition, Yes 03/27/2015 does this person have serious difficulty concentrating, remembering, or making decisions? documented as of this encounter Miscellaneous Notes Telephone Encounter - Mary Tanner, RN - 09/04/2015 0908 EST Received message patient calling to say he had a Stress Echo per his PCP - Joaquín Carpenter MD for chest pain. Testing done 09/03/15. Asking if Dr. Galloway would review the results in comparison to the testing done [address] ago[address] Asking for Dr. Galloway's input. Stress echo normal Broderick Galloway MD Patient notified. He accepted this. No communication barriers noted. Mary Tanner, RN elephone Encounter - Raad Stockton - 09/03/2015 1601 EST Pt. had stress echocardiogram ordered by PCP, and completed 09/03/15. Pt. asking if Dr. Galloway couldreview his test results in comparison to his test from 6 months ago, to see if it looks OK. Pt. requesting call back to discuss. documented in this encounter Plan of Treatment Upcoming Encounters Date Type Specialty Care Team Description 09/29/2022 Office Visit Gastroenterology and Shaq Phan, Hepatology [address] [facility], [address] [place] [phone] (Wo rk) documented as of this encounter Visit Diagnoses Not on filedocumented in this encounter Care Teams Pony Ride Operator Relationship Specialty Start Date End Date Gregoria Nicholas MD PCP - General 10/27/12 09/12/18 [address] [place] [address] documented as of this encounter
--- OUTSIDE RECORDS SUMMARY | 2022-02-21 01:12 | XMS_ITS | Encounter Summary ---
:1955 Author Organization [facility] Address [address] [place] [address] Care Team Providers Name Role Phone Gregoria Nicholas MD Primary Care Provider Reason for Visit Reason Comments Coronary Artery Disease Hypertension Hyperlipidemia Encounter Details Date Type Department Care Team Description 02/05/2016 Office Visit [facility] Broderick Galloway Athero sclerosis of [place] Cardiology - Jenelle Ansari MD coronary artery of [place] [address] [facility] [address] heart without angina [place], [place] [address] pectoris [I25.10] [address] [facility] (Primary Dx) [phone] [place] [address] Social History Tobacco Use Types [...] Sign Reading Time Taken Comments Blood Pressure 126/64 02/05/2016 1336 EDT Pulse 88 02/05/2016 1336 EDT Temperature - - Respiratory Rate - - Oxygen Saturation 99% 02/05/2016 1336 EDT Inhaled Oxygen Concentration - - Weight 107.5 kg (237 lb) 02/05/2016 1336 EDT Height 176.8 cm (5' 9.6) 02/05/2016 1336 EDT Body Mass Index 34.4 02/05/2016 1336 EDT documented in this encounter Functional Status Functional Status Response Date of Assessment Because of a physical, mental, or emotional condition, No 02/05/2016 does this person have difficulty doing errands alone such as visiting a doctor's office or shopping? Cognitive Status Response Date of Assessment Because of a physical, mental, or emotional condition, Yes 02/05/2016 does this person have serious difficulty concentrating, remembering, or making decisions? documented as of this encounter Progress Notes Broderick Galloway MD - 02/05/2016 1346 EDT Subjective: Patient is a 60 y.o. male who presents for follow-up of cad. 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 He denies chest pain on exertion and dyspnea on exertion. He describes his symptoms as not changed. He has been compliant with his medications. Medications side effects include none Past Medical History Diagnosis Date ??? [place] (myocardial infarction) 1992, 2003 ??? CAD (coronary artery disease) 09-10-09 PCI LAD prox MARY, LAD mid MARY, LAD distal BMS; 09-07-09 PCI MARY X 3 RCA; 2004 stents X2 ??? Hypertension ??? Diabetes mellitus oral agents ??? Diverticulitis ??? Hyperlipidemia ??? Recurrent infections rt foot 5th toe Patient Active Problem List Diagnosis Date Noted ??? Coronary atherosclerosis 09/07/2009 ??? Hyperlipidemia with target LDL less than 70 09/07/2009 ??? Hypertensive disorder 09/07/2009 ??? Diabetes mellitus 09/07/2009 Current Outpatient Prescriptions Medication Sig Dispense Refill ??? AMITRIPTYLINE HCL (AMITRIPTYLINE ORAL) Take 20 mg by mouth at bedtime. Takes 2-10 mg tablets at bedtime ??? amlodipine (NORVASC) 10 mg tablet Take 1 Tab by mouth daily. 30 Tab 11 ??? aspirin 325 mg tablet Take 325 mg by mouth daily ??? aspirin chewable 81 mg tablet Take 81 mg by mouth daily. ??? clopidogrel (PLAVIX) 75 mg tablet Take 1 Tab by mouth daily. Plavix 75 mg daily uninterrupted for a minimum of one year Do not stop or interrupt this medication withour discussing with chemical process equipment operator Start this medication in one month. First take Prasugrel 10 mg daily for one month. Start Plavix theday after stopping Prasugrel. 30 Tab 11 ??? ERGOCALCIFEROL, VITAMIN D2, (VITAMIN D ORAL) Take by mouth daily ??? insulin glargine (LANTUS) 100 unit/mL injection Inject 75 Units into the skin at bedtime . ??? liraglutide (VICTOZA) 0.6 mg/0.1 mL (18 mg/3 mL) injectable pen Inject 1.2 mg into the skin daily. ??? lisinopril (PRINIVIL, ZESTRIL) 5 mg tablet Take 5 mg by mouth daily. ??? metformin (GLUCOPHAGE) 1,000 mg tablet Take by mouth 2 times daily with meals. Restart MetforminSat Take as previously prescribed Metformin 1000 mg in the morning and Metformin 500 mg each evening, Indications: TYPE 2 DIABETES MELLITUS 30 Tab 0 ??? METOPROLOL SUCCINATE ORAL Take 150 mg by mouth daily. Takes 3-50 mg. Tablets daily ??? nitroGLYCERIN (NITROSTAT) 0.[address] 0.4 mg under the tongue as needed for Chest Pain. ??? pramipexole (MIRAPEX) 0.125 mg tablet Take 0.125 mg by mouth. 2-tab together once daily ??? rosuvastatin (CRESTOR) 40 mg tablet Take 40 mg by mouth daily. No current facility-administered medications for this visit. Review of Systems A ten point ROS was performed. Pertinent positives are listed above, all others are negative. Objective: BP 126/64 mmHg Pulse 88 Ht 176.8 cm (69.6) Wt 107.502 kg (237 lb) BMI 34.39 kg/m2 SpO2 99% Body mass index is 34.39 kg/(m^2). Physical Exam: General: Alert, cooperative, no distress, [...] normal. Neurologic: Normal strength, nonfocal on exam. Data: Lab Review: Lab Results Component Value Date CHOL 198 09/08/2009 TRIG 178* 09/08/2009 HDL 52 09/08/2009 LDLBASE 110 09/08/2009 Assessment: Raul Trujillo is a 60 y.o. year old male who presents with cad stable Plan: Cont present rx documented in this encounter Plan of Treatment Upcoming Encounters Date Type Specialty Care Team Description 09/29/2022 Office Visit Gastroenterology and Shaq Phan, Hepatology [address] [facility], [address] [place] [address] (Wo rk) documented as of this encounter Visit Diagnoses Diagnosis Atherosclerosis of [place] coronary arter y of [place] heart without angina pectoris [I25.10] - Primary documented in this encounter Historical Medications This list may reflect changes made after this encounter. Medication Sig Dispensed Refills Start Date End Date pramipexole (MIRAPEX) Take 0.125 mg by 0 12/02/2018 0.125 mg tablet mouth. Reported on 09/09/2016 liraglutide (VICTOZA) Inject 1.8 mg into 0 12/03/2018 0.6 mg/0.1 mL (18 mg/3 the skin daily. mL) injectable pen added in this encounter Care Teams Process Technician Relationship Specialty Start Date End Date Gregoria Nicholas MD PCP - General 10/27/12 09/12/18 [address] [place] [phone] documented as of this encounter
--- OUTSIDE RECORDS SUMMARY | 2022-02-21 01:12 | XMS_ITS | Encounter Summary ---
:1955 Author Organization [facility] Address [address] [place] [address] Care Team Providers Name Role Phone Gregoria Nicholas MD Primary Care Provider Reason for Visit Reason Comments Follow-up 6 mo. no complaints Encounter Details Date Type Department Care Team Description 09/09/2016 Office Visit [facility] Broderick Galloway Athero sclerosis of Cardiology - Jenelle Ansari MD coronary artery of [place] [address] [facility] [address] heart without angina [place], [place] [address] pectoris, unspecified [address] [facility] vessel or lesion type [phone] [place], [place] (Primary Dx) [phone] Social History Tobacco Use Types Packs/Day [...] Sign Reading Time Taken Comments Blood Pressure 144/76 09/09/2016 1029 EST Pulse 88 09/09/2016 1029 EST Temperature - - Respiratory Rate - - Oxygen Saturation 98% 09/09/2016 1029 EST Inhaled Oxygen Concentration - - Weight 107.5 kg (237 lb) 09/09/2016 1029 EST Height 175.3 cm (5' 9) 09/09/2016 1029 EST Body Mass Index 35 09/09/2016 1029 EST documented in this encounter Functional Status [...] a physical, mental, or emotional condition, No 09/09/2016 does this person have difficulty doing errands alone such as visiting a doctor's office or shopping? Cognitive Status Response Date of Assessment Because of a physical, mental, or emotional condition, Yes 09/09/2016 does this person have serious difficulty concentrating, remembering, or making decisions? documented as of this encounter Progress Notes Broderick Galloway MD - 09/09/2016 1037 EST Subjective: Patient is a 60 y.o. male who presents for follow-up of cad. Patient reports doing well. He denies chest pain on [...] RCA; 2004 stents X2 ??? Diabetes mellitus oral agents ??? Diverticulitis ??? Hyperlipidemia ??? Hypertension ??? [place] (myocardial infarction) 1992, 2004 ??? Recurrent infections rt foot 5th toe Patient Active Problem List Diagnosis Date Noted ??? NSTEMI (non-ST elevated myocardial infarction) 02/10/2016 Priority: Medium ??? Coronary atherosclerosis 09/07/2009 ??? [...] by mouth daily. 30 Tab 11 ??? clopidogrel (PLAVIX) 75 mg tablet Take 1 Tab by mouth daily. 30 Tab 11 ??? ERGOCALCIFEROL, VITAMIN D2, (VITAMIN D ORAL) Take by mouth daily ??? insulin glargine (LANTUS) 100 unit/mL injection Inject 35 Units into the skin 2 times daily. ??? liraglutide (VICTOZA) 0.6 mg/0.1 mL (18 mg/3 mL) injectable pen Inject 1.8 mg into the skin daily. ??? lisinopril [...] mg tablet Take 0.125 mg by mouth. Reported on 09/09/2016 ??? rosuvastatin (CRESTOR) 40 mg tablet Take 40 mg by mouth daily. No current facility-administered medications for this visit. Review of Systems A ten point ROS was performed. Pertinent positives are listed above, all others are negative. Objective: Visit Vitals ??? BP (!) 144/76 ??? Pulse 88 ??? Ht 175.3 cm (69) ??? Wt (!) 107.5 kg (237 lb) ??? SpO2 98% ??? BMI 35 kg/m2 Body mass index is 35 kg/(m^2). Physical Exam: General: Alert, cooperative, no [...] Normal strength, nonfocal on exam. Lab Review: not applicable Assessment: Raul Trujillo is a 60 y.o. year old male who presents with cad stable w/ god functional status Plan: Cont present rx documented in this encounter Plan of Treatment Upcoming Encounters Date Type Specialty Care Team Description 09/29/2022 Office Visit Gastroenterology and Shaq Phan, Hepatology [address] [facility], [address] [place] [phone] (Wo rk) documented as of this encounter Visit Diagnoses Diagnosis Atherosclerosis of coronary artery of na tive heart without angina pectoris, unspecified vessel or lesion type - Prim millie documented in this encounter Care Teams Acetylene Cutter Relationship Specialty Start Date End Date Gregoria Nicholas MD PCP - General 10/27/12 09/12/18 [address] [place] [address] documented as of this encounter
--- OUTSIDE RECORDS SUMMARY | 2022-02-21 01:12 | XMS_ITS | Encounter Summary ---
:[address] [facility] [place] Address [address] [place] [address] Care Team Providers Name Role Phone Gregoria Nicholas MD Primary Care Provider Encounter Details Date Type Department Care Team Description 09/03/2015 Hospital Encounter [facility] [address] [facility] [address] [place] [address] [place] [address] Social History Tobacco Use Types Packs/Day Years [...] making decisions? documented as of this encounter Discharge Diagnoses Diagnosis R07.9 Chest pain, unspecified-R07.9[ICD- 10-CM] I10 Essential (primary) hypertension-I10 [ICD-10-CM] documented in this encounter Medications at Time of Discharge Medication Sig Dispensed Refills Start Date End Date amlodipine (NORVASC) 10 Take 1 Tab by mouth 30 Tab 11 mg tablet daily. ERGOCALCIFEROL, VITAMIN Take by mouth daily 0 D2, (VITAMIN D ORAL) insulin glargine Inject 30 Units into 0 (LANTUS) 100 unit/mL the skin 2 times injection daily. lisinopril (PRINIVIL, Take 5 mg by mouth 0 ZESTRIL) 5 mg tablet daily. METOPROLOL SUCCINATE Take 150 mg by mouth 0 ORAL daily. Takes 3-50 mg. Tablets daily nitroGLYCERIN Place 0.4 mg under the 0 (NITROSTAT) 0.4 mg SL tongue as needed for tablet Chest Pain. rosuvastatin (CRESTOR) Take 40 mg by mouth 0 40 mg tablet daily. AMITRIPTYLINE HCL Take 20 mg by mouth at 0 12/02/2018 (AMITRIPTYLINE ORAL) bedtime. Takes 2-10 mg tablets at bedtime aspirin 325 mg tablet Take 325 mg by mouth 0 02/12/2016 daily aspirin chewable 81 mg Take 81 mg by mouth 0 02/10/2016 tablet daily. clopidogrel (PLAVIX) 75 Take 1 Tab by mouth daily. P lavix 75 mg daily uninterrupted for a minimum of one year 30 Tab 11 09/10/19 10 02/10/2016 mg tablet Do not stop or interrupt thi s medication withour discussing with steel erector apprentice Start this medication in one month. First take Prasugrel 10 mg daily for one month. Start Plavix the day after stopping Prasugrel. metformin (GLUCOPHAGE) Take by mouth 2 times daily with meals. Restart Metformin Sat 30 Tab 0 09/10/2009 12/02/2018 1,000 mg Take as previously prescribed Metformin 1000 mg in the mor marlyn and tabletIndications: type Metformin 500 mg each evenin g, Indications: TYPE 2 DIABETES MELLITUS 2 diabetes mellitus documented as of this encounter Discharge Disposition Disposition Code Departure Means Destination Home or Self Fdc documented in this encounter Plan of Treatment Upcoming Encounters Date Type Specialty Care Team Description 09/29/2022 Office Visit Gastroenterology and Shaq Phan, Hepatology [address] [facility], [facility], [address] [place] [phone] (Wo rk) documented as of this encounter Procedures Procedure Name Priority Date/Time Associated Diagnosis Comme nts STRESS TEST - SCANNED 09/12/2015 7:50 EST documented in this encounter Visit Diagnoses Not on filedocumented in this encounter Orders Imaging Orders Without Results Count Last Ordered Date First Ordered Date STRESS TEST - SCANNED 1 09/12/2015 documented in this encounter Care Teams Truck Chauffeur Relationship Specialty Start Date End Date Gregoria Nicholas MD PCP - General 10/27/12 09/12/18 [address] [place] [address] documented as of this encounter
--- OUTSIDE RECORDS SUMMARY | 2022-02-21 01:12 | XMS_ITS | Encounter Summary ---
:1955 Author Organization [facility] Address [address] [place] [address] Care Team Providers Name Role Phone Gregoria Nicholas MD Primary Care Provider Encounter Details Date Type Department Care Team Description 05/11/2015 [place] Only [facility] [place] [phone] [facility] [facility] [place] [phone] (Wo rk) Social History Tobacco Use Types [...] making decisions? documented as of this encounter Plan of Treatment Upcoming Encounters Date Type Specialty Care Team Description 09/29/2022 Office Visit Gastroenterology and Shaq Phan, Hepatology [address] [place] [facility], [address] [place] [address] (Wo rk) documented as of this encounter Procedures Procedure Name Priority Date/Time Associated Diagnosis Comme nts SURGICAL PATHOLOGY Routine 05/11/2015 17:51 Resul ts for this EDT procedure are i n the results section. documented in this encounter Results SURGICAL PATHOLOGY (05/11/2015 17:51 EDT) Pathology Report: SURGICAL PATHOLOGY REPORT [facility] Reports generated via electronic interface conta in original data; [facility] however they are lacking the format of the original re port. SERVICES Caution should be taken when reading/interpreting unfo rmatted reports. Name: ? RAUL BATISTA ? Accession #: ? [id number] ? : ? 1955 (Age: 5 0) ??M ? Collect Date: ? 05/11/2015 ? Location: ? [facility] ? Receive Date: ? 015 ? Provider: JOSE BROWN MD Copy to: LENORE BELL MD ? Final Pathologic Diagnosis: BONE AND SOFT TISSUE, LEFT SHOULDER SUBACROMIAL BURSA & LEFT DISTAL CLAVICLE, BIOPSY: - Chronic proliferative synovitis/bursitis with fibros is. - Articular cartilage with degenerative changes consis tent with degenerative arthropathy. Document reviewed and electronically signed by: Patsy Mendez MD Report ??Date: 05/18/2015 17:20 By the signature above, the attending physician certif ies that he/she has personally conducted a gross and/or microscopic examin ation of the described specimens and rendered or confirmed the above diagnosi s. Specimen(s) Received: Subacromial bursa L shoulder, L distal clavicle Clinical History: A-C joint arthritis causing secondary impingement and supraspinatus tear Gross Description: ? Received in formalin labelled with proper patient identification (initials M, G) and subacromial bursa are three portions of soft tissue (1.4 x 0.7 x 0.3 cm to 3.0 x 0.1 x 0.4 cm) as well as a single portion of bone with a small amount of attached fibrous tissue (3.3 x 2.5 cm x 1.4 cm in length). The soft tissue is rock-alva and fibrous-like with chyron operator d skeletal muscle and adipose tissue. The portion of bone has smooth surgical margins. One aspect is rock-alva and granular. Sectioning of the bone discloses rock-white, indurated, trabecular bone. Superintendent Car Construction sections are submitted as follows : BLOCK FUNK 1- ??soft tissue 2- ??bone, following decalcification Ana Laguerre 05/14/2015 10:47 AM End of Report Specimen Performing Organization Address City/State/ZIP Code Phon e Number [facility] [address] [place] [address] SERVICES documented in this encounter Visit Diagnoses Not on filedocumented in this encounter Care Teams Channel Rebuilder Relationship Specialty Start Date End Date Gregoria Nicholas MD PCP - General 10/27/12 09/12/18 [address] [place] [address] documented as of this encounter
--- OUTSIDE RECORDS SUMMARY | 2022-02-21 01:12 | XMS_ITS | Encounter Summary ---
:1955 Author Organization [facility] Address [address] [place] [address] Care Team Providers Name Role Phone Denise Hooker APRN Primary Care Provider [phone] Reason for Visit Reason Onset Date Comments Appointment Related 06/01/2019 MRI at [facility] Encounter Details Date Type Department Care Team Description 06/01/2019 Telephone [facility] [place] Appoint ment Related Neurology - S Prospe arti Grayson MD (MRI at [facility] ) [address] [phone] [facility] [address] [place] [address] (Wo rk) Social History Tobacco [...] this encounter Miscellaneous Notes Telephone Encounter - Temo Allred - 06/08/2019 1332 EST Called [facility] and they said the patient called and was scheduled 06/23 at 1:00pm Telephone Encounter - Temo Allred - 06/01/2019 1002 EST Faxed MRI Lumbar WO, screening form and auth to [facility] fax [phone]. They will review and call us with an appt. Patient requesting any day 3:00 or later and patient will be out of town 06/08 to 06/22 Please pass call to Romario or send encounter to Romario with appt time. documented in this encounter Plan of Treatment Upcoming Encounters Date Type Specialty Care Team Description 09/29/2022 Office Visit Gastroenterology and Shaq Phan, Hepatology [address] [facility], [address] [place] [address] (Wo rk) documented as of this encounter Visit Diagnoses Not on filedocumented in this encounter Care Teams Blueprint Machine Operator Relationship Specialty Start Date End Date Denise Hooker APRN PCP - General 09/13/18 [address] [place] [address] documented as of this encounter
--- OUTSIDE RECORDS SUMMARY | 2022-02-21 01:12 | XMS_ITS | Encounter Summary ---
:1955 Author Organization [facility] Address [address] [place] [address] Care Team Providers Name Role Phone Gregoria Nicholas MD Primary Care Provider Reason for Visit Reason Comments Coronary Artery Disease Encounter Details Date Type Department Care Team Description 10/28/2012 Office Visit [facility] Broderick Galloway atherosclerosis Cardiology - Jenelle Ansari MD of unspecified type of [address] vessel, [place] or graft [place], [place] [address] (Primary Dx) [address] [place] [address] [place] [address] Social History Tobacco Use Types [...] Sign Reading Time Taken Comments Blood Pressure 120/60 10/28/2012 0950 EDT Pulse 72 10/28/2012 0950 EDT Temperature - - Respiratory Rate - - Oxygen Saturation - - Inhaled Oxygen Concentration - - Weight 103 kg (227 lb) 10/28/2012 0946 EDT Height - - Body Mass Index 32.57 04/13/2012 1113 EDT documented in this encounter Functional Status Cognitive Status Response Date of Assessment Because of a physical, mental, or emotional condition, do Ye s 09/09/2009 you have serious difficulty concentrating, remembering, or making decisions? (5 years old or older) documented as of this encounter Progress Notes Broderick Galloway MD - 10/28/2012 0952 EDT Subjective: Patient is a 56 y.o. male who presents for follow-up of cad. Patient reports recent shoulder surgery. He denies chest pain on exertion and dyspnea on exertion. He describes his symptoms as improved. He has been compliant with his medications. Medications side effects include none Past Medical History Diagnosis Date ??? KS (myocardial infarction) 1992, 2003 ??? CAD (coronary artery disease) 09-10-09 PCI LAD prox MARY, LAD mid MARY, LAD distal BMS; 09-07-09 PCI MARY X 3 RCA; 2003 stents X2 ??? Hypertension ??? Diabetes mellitus oral agents ??? Diverticulitis ??? Hyperlipidemia ??? Recurrent infections rt foot 5th toe Patient Active Problem List Diagnoses Date Noted ??? Coronary atherosclerosis 09/07/2009 ??? Hyperlipidemia with target LDL less than 70 09/07/2009 ??? Hypertension 09/07/2009 ??? Diabetes mellitus 09/07/2009 Current Outpatient Prescriptions Medication Sig Dispense Refill ??? simvastatin (ZOCOR) 80 mg tablet Take 80 mg by mouth at bedtime. ??? insulin glargine (LANTUS) 100 unit/mL injection Inject 30 Units into the skin at bedtime. 50 units ??? aspirin chewable 81 mg tablet Take 81 mg by mouth daily. ??? amlodipine (NORVASC) 10 mg tablet Take 1 Tab by mouth daily. 30 Tab 11 ??? clopidogrel (PLAVIX) 75 mg tablet Take 1 Tab by mouth daily. Plavix 75 mg daily uninterrupted for a minimum of one year Do not stop or interrupt this medication withour discussing with head machine feeder Start this medication in one month. First take Prasugrel 10 mg daily for one month. Start Plavix theday after stopping Prasugrel. 30 Tab 11 ??? metformin (GLUCOPHAGE) 1,000 mg tablet Take by mouth 2 times daily with meals. Restart MetforminSat Take as previously prescribed Metformin 1000 mg in the morning and Metformin 500 mg each evening, Indications: TYPE 2 DIABETES MELLITUS 30 Tab 0 ??? lisinopril (PRINIVIL, ZESTRIL) 5 mg tablet Take 5 mg by mouth daily. ??? METOPROLOL SUCCINATE ORAL Take 150 mg by mouth daily. Takes 3-50 mg. Tablets daily ??? nitroGLYCERIN (NITROSTAT) 0.[address] 0.4 mg under the tongue as needed for Chest Pain. ??? AMITRIPTYLINE HCL (AMITRIPTYLINE ORAL) Take 20 mg by mouth at bedtime. Takes 2-10 mg tablets at bedtime Review of Systems A ten point ROS was performed. Pertinent positives are listed above, all others are negative. Objective: BP 120/60 Pulse 72 Wt 102.967 kg (227 lb) There is no height on file to calculate BMI. Physical Exam: General: Alert, cooperative, no distress, [...] 110 09/08/2009 Assessment: Raul Trujillo is a 56 y.o. year old male who presents with cad stable from cardiac status Plan: Cont present rx documented in this encounter Plan of Treatment Upcoming Encounters Date Type Specialty Care Team Description 09/29/2022 Office Visit Gastroenterology and Shaq Phan, Hepatology [address] [facility], [address] [place] [address] (Wo rk) documented as of this encounter Visit Diagnoses Diagnosis Coronary atherosclerosis of unspecified type of vessel, [place] or graft - Primary documented in this encounter Historical Medications This list may reflect changes made after this encounter. Medication Sig Dispensed Refills Start Date End Date simvastatin (ZOCOR) 80 mg Take 80 mg by mouth 0 11/01/2013 tablet at bedtime. added in this encounter Care Teams Bag Grader Relationship Specialty Start Date End Date Gregoria Nicholas MD PCP - General 10/27/12 09/12/18 [address] [place] [address] documented as of this encounter
--- OUTSIDE RECORDS SUMMARY | 2022-02-21 01:12 | XMS_ITS | Encounter Summary ---
:1955 Author Organization [facility] Address [address] [place] [address] Care Team Providers Name Role Phone Gregoria Nicholas MD Primary Care Provider Reason for Referral Follow Up (Routine/Next Available) - Closed Specialty Diagnoses / Procedures Referred By Contact Refer red To Contact Cardiology Diagnoses NSTEMI (non-ST elevated myocardial infarction) ([facility]) ([facility]) Rylie Lozada MD Terrien, Edward F, MD [address] [place] [phone] Fax: Referral ID Status Reason Start Date Expiration Date Visits V isits Requested Authorized [id number] Closed Specialty 02/12/2016 1 1 Services Required Question Answer Reason for Request: cad Expected Discharge Date (Inpatient Only): 02/12/2016 onsult (Routine) - Closed Specialty Diagnoses / Procedures Referred By Contact Refer red To Contact Diagnoses NSTEMI (non-ST elevated myocardial infarction) ([facility]) ([facility]) Krish Solis PA-C [address] [facility] [address] [place] [address] Referral ID Status Reason Start Date Expiration Date Visits V isits Requested Authorized [id number] Closed Specialty 02/11/2016 1 1 Services Required Question Answer Reason for Request: cad Expected Discharge Date (Inpatient Only): 02/12/2016 Practice Site (External Referral Only): [facility] ollow Up (Routine) - Closed Specialty Diagnoses / Procedures Referred By Contact Refer red To Contact Diagnoses NSTEMI (non-ST elevated myocardial infarction) ([facility]) ([facility]) Krish Solis PA-C [address] [address] Referral ID Status Reason Start Date Expiration Visits Visits Date Requested Authorized [id number] Closed Continuity of 02/11/2016 1 1 Care Question Answer Reason for Request: cad Expected Discharge Date (Inpatient Only): 02/12/2016 Encounter Details Date Type Department Care Team Description 02/10/2016 - [facility] Tk Whyte MD [address] [phone] NSTEMI (non-ST 02/12/2016 Encounter Cardiac/Telemetry Varun Stockton MD [address] [id number] elevated myocardial Unit Jaxson Schmitt MD [address] [place] [address] infarction) [address] [place] [address] ([facility]) (Primary [place], [place] Dx) [id number] Social History Tobacco Use Types Packs/Day Years [...] Sign Reading Time Taken Comments Blood Pressure 107/54 02/12/2016 0922 EDT Pulse 83 02/11/2016 1156 EDT Temperature 36.8 ??C (98.2 ??F) 02/12/2016 09 EDT Respiratory Rate 18 02/12/2016 0922 EDT Oxygen Saturation 99% 02/12/2016921 EDT Inhaled Oxygen Concentration - - Weight 112.6 kg (248 lb 3.2 oz) 02/12/2016 0039 EDT Height 176.5 cm (5' 9.49) 02/10/2016 2312 EDT Body Mass Index 36.14 02/10/2016 2312 EDT documented in this encounter Functional Status [...] physical, mental, or emotional condition, do No 02/10/2016 you have difficulty doing errands alone such as visiting a doctor's office or shopping? (15 years old or older) Cognitive Status Response Date of Assessment Because of a physical, mental, or emotional condition, do No 02/10/2016 you have serious difficulty concentrating, remembering, or making decisions? (5 years old or older) documented as of this encounter Discharge Summaries Opal Vaz MD - 02/11/20162131 EDT Cardiology Discharge Summary Primary Care Provider: Gregoria Nicholas Attending Physician: Jaxson Schmitt MD Admit Date: 02/10/2016 Discharge Date: 7/26/16 Disposition: Home or self care Problems and Procedures Admitting Diagnosis: [place] [facility] ICU // NONSTEMI - URGENT w/BED // M5 I21.4 Non-ST elevation (NSTEMI) myocardial infarction-I21.4[ICD-10-CM] E11.9 Type 2 diabetes mellitus without complications-E11.9[ICD-10-CM] Final Hospital Diagnosis: NSTEMI Additional Problems Managed in the Hospital Active Hospital Problems Diagnosis Date Noted ??? *NSTEMI (non-ST elevated myocardial infarction) 02/10/2016 Resolved Hospital Problems Diagnosis Date Noted Date Resolved No resolved problems to display. Principal Procedure: [facility] Date: 02/11/16 Diagnostic Cardiac Study Results Left main: Free of angiographically significant disease. ?? Left anterior descending: Mid severe in-stent restenosis, 80%. OCT catheter could not cross prior tostenting. Leftcircumflex:?? OM with distal 60%. Right coronary artery: Dominant. Minor luminal irregularities. ?? Left Ventriculography and Hemodynamic Results LVEDP 10-12 There was no gradient across the aortic valve. Left ventricular function: normal Ejection fraction: 55% Regional wall motion: normal Post-Procedure Diagnostic Conclusion:?? PCI is indicated. Interventional Procedure: Using standard technique, the mid left anterior descending coronary arterywas stented using a Synergy 2.5x20mm MARY. OCT after stenting confirmed stent apposition and sizing. Distal old stent with minimal in stent restenosis. Echo ?? 1. Left ventricle: The cavity size was normal. Wall thickness was normal. ? Systolic function was normal. The estimated ejection fraction was 60-65%. ? Wall motion was normal; there were no regional wall motion abnormalities. ?? 2. Right ventricle: The cavity size was normal. Wall thickness was normal. ? Systolic function was normal. Hospital Course Claudia Batista is a 60 y.o. male, former smoker, with a significant family and personal cardiac history including [place] x2 (1992, 2004, s/p stents x8), HTN, HLD, and T2DM transferred from [facility] for NSTEMI, after presenting there with acute chest pain which occurred while riding his bike and foundto have elevated troponin. Initial EKG at [facility] did not show EKG changes, but EKG at [facility] showed new 1st degree AV block. An echo was performed which showed preserved EF and no regional wall motion abnormalities. LHC was performed with PCI including stent to the mid LAD. Mr. Batista tolerated the procedure well. Post catheterization, the patient was placed on aspirin 81mg daily and plavix 75mg daily for dual antiplatelet therapy. His other medications, including metoprolol and crestor, were continued at discharge with the exception of aspirin 325mg, which was discontinued. Follow ups were arranged with Dr. 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 Nicholas), and cardiac rehabilitation. Patient was stable for discharge home. Allergies and Immunizations No Known Allergies There is no immunization history on file for this patient. Transition of Care Plans Condition at Discharge Improved Assessment at Discharge Vital signs: No data found. Discharge Medications: START taking these medications Sig aspirin chewable 81 mg tablet Replaces: aspirin 325 mg tablet 81 mg, oral, DAILY clopidogrel 75 mg tablet Commonly known as: PLAVIX 75 mg, oral, DAILY CONTINUE taking these medications Sig AMITRIPTYLINE ORAL 20 mg, oral, AT BEDTIME, Takes 2-10 mg tablets at bedtime amLODIPine 10 mg tablet Commonly known as: NORVASC 10 mg, oral, DAILY CRESTOR 40 mg tablet Generic drug: rosuvastatin 40 mg, oral, DAILY LANTUS 100 unit/mL injection Generic drug: insulin glargine 35 Units, subcutaneous, 2 TIMES DAILY, liraglutide 0.6 mg/0.1 mL (18 mg/3 mL) injectable pen Commonly known as: VICTOZA 1.2 mg, subcutaneous, DAILY lisinopril 5 mg tablet Commonly known as: PRINIVIL, ZESTRIL 5 mg, oral, DAILY, metFORMIN 1,000 mg tablet Commonly known as: GLUCOPHAGE oral, 2 TIMES DAILY WITH BREAKFAST & DINNER, Restart Metformin Sat 2009
Take as previously prescribed Metformin 1000 mg in the morning and
Metformin 500 mg each evening METOPROLOL SUCCINATE ORAL 150 mg, oral, DAILY, Takes 3-50 mg. Tablets daily nitroGLYCERIN 0.4 mg SL tablet Commonly known as: NITROSTAT 0.4 mg, sublingual, PRN, pramipexole 0.125 mg tablet Commonly known as: MIRAPEX 0.125 mg, oral, 2-tab together once daily VITAMIN D ORAL oral, DAILY STOP taking these medications aspirin 325 mg tablet Replaced by: aspirin chewable 81 mg tablet Coumadin Management N/A Non-Cardiac Studies at Time of Discharge none Results Pending at Discharge Test results still pending from this admission None Last Lab Results at Discharge BUN: Lab Results Component Value Date BUN 12 02/12/2016 Creatinine: Lab Results Component Value Date CREATININE 0.79 02/12/2016 CBC: Lab Results Component Value Date WBC 7.99 02/12/2016 RBC 4.77 02/12/2016 HGB 13.6* 02/12/2016 HCT 39.7 02/12/2016 MCV 83 02/12/2016 MCH 28.5 02/12/2016 MCHC 34.3 02/12/2016 PLT 257 02/12/2016 Electrolytes: Lab Results Component Value Date NA 139 02/12/2016 K 4.4 02/12/2016 CL 99 02/12/2016 CO2 29 02/12/2016 Lab Results Component Value Date HGBA1C 7.2 02/10/2016 HGBA1C 6.8 09/10/2009 Discharge Follow Up Appointments Scheduled with [facility] Appointments Outside of [facility] We Will Schedule Follow-up appointments and procedures Amb Consult/Follow Up Cardiac Rehabilitation Reason for Request: cad Expected Discharge Date (Inpatient Only): 02/12/2016 Practice Site (External Referral Only): [facility] Authorizing Provider: Krish Solis PA Amb Consult/Follow Up Cardiology Reason for Request: cad Expected Discharge Date (Inpatient Only): 02/12/2016 Authorizing Provider: Opal Vaz MD Amb Consult/Follow Up Primary Care Physician Reason for Request: cad Expected Discharge Date (Inpatient Only): 02/12/2016 Authorizing Provider: Krish Solis PA Additional Information: Please see your Primary Care Physician Dr Nicholas on February 20, 2016 @ 9:05 am. The telephone number is [phone] Studies We Will Schedule Appointments We Recommend but have not been Scheduled Opal Vaz MD 02/12/2016 22:45 documented in this encounter Discharge Instructions AppointmentsSt. Evelyn Drummond - 02/12/2016 13:37 EDT Please see your Primary Care Physician Dr Nicholas on February 20, 2016 @ 9:05 am. The telephone number is [phone] signed by Evelyn Peña at 02/12/2016 13:37 EDT documented in this encounter Medications at Time of Discharge Medication Sig Dispensed Refills Start Date End Date amlodipine (NORVASC) 10 Take 1 Tab by mouth 30 Tab 11 mg tablet daily. aspirin chewable 81 mg Take 1 Tab by mouth 30 Tab 11 01/18 tablet daily. ERGOCALCIFEROL, VITAMIN Take by mouth daily 0 D2, (VITAMIN D ORAL) insulin glargine Inject 30 Units into 0 (LANTUS) 100 unit/mL the skin 2 times injection daily. lisinopril (PRINIVIL, Take 5 mg by mouth 0 ZESTRIL) 5 mg tablet daily. METOPROLOL SUCCINATE Take 150 mg by mouth 0 ORAL daily. Takes 3-50 mg. Tablets daily nitroGLYCERIN Place 0.4 mg under 0 (NITROSTAT) 0.4 mg SL the tongue as needed tablet for Chest Pain. rosuvastatin (CRESTOR) Take 40 mg by mouth 0 40 mg tablet daily. AMITRIPTYLINE HCL Take 20 mg by mouth 0 12/02/2018 (AMITRIPTYLINE ORAL) at bedtime. Takes 2-10 mg tablets at bedtime clopidogrel (PLAVIX) 75 Take 1 Tab by mouth 30 Tab 11 09/10/2017 mg tablet daily. liraglutide (VICTOZA) Inject 1.8 mg into 0 12/03/2018 0.6 mg/0.1 mL (18 mg/3 the skin daily. mL) injectable pen metformin (GLUCOPHAGE) Take by mouth 2 times daily with meals. Restart Metformin Sat 30 Tab 0 09/10/2009 12/02/2018 1,000 mg Take as previously prescribed Metformin 1000 mg in the mor marlyn and tabletIndications: type Metformin 500 mg each evenin g, Indications: TYPE 2 DIABETES MELLITUS 2 diabetes mellitus pramipexole (MIRAPEX) Take 0.125 mg by 0 12/02/2018 0.125 mg tablet mouth. Reported on 09/09/2016 documented as of this encounter Ordered Prescriptions Prescription Sig Dispensed Refills Start Date End Date aspirin chewable 81 mg Take 1 Tab by mouth 30 Tab 11 01/18 tablet daily. clopidogrel (PLAVIX) 75 mg Take 1 Tab by mouth 30 Tab 11 02/12/2016 09/10/2017 tablet daily. clopidogrel (PLAVIX) 75 mg Take 1 Tab by mouth 30 Tab 11 02/12/2016 02/12/2016 tablet daily. aspirin chewable 81 mg Take 1 Tab by mouth 30 Tab 11 01/1802/12/2016 tablet daily. documented in this encounter Discharge Disposition Disposition Code Departure Means Destination Home or Self Care documented in this encounter Progress Notes Colette Sánchez, JANNY - 02/13/2016 0759 EDT CM Discharge Note: D/C home on 02/11 without home health services. Shanae Sánchez RN #[id number] Gilda Roman RN - 02/12/2016 1010 EDT Cardiology Research Consent Process Note Protocol: OZ (Affordability and Real-world Antiplatelet Treatment Effectiveness After Myocardial Infarction Study) [facility] # [id number] Sanding Machine Buffer: Nash Herron MD The Affordability and Real-world Antiplatelet Treatment Effectiveness After Myocardial Infarction Study (OZ) is a clinical trial that will assess the impact of copayment reduction by equalizing the copayments for clopidogrel and ticagrelor. OZ will assess prescribing patterns, patient medication adherence, and clinical outcomes up to one year. The OZ study was discussed with the patient. The subject was given ample time to read the consent and the opportunity to ask questions. The consent and HIPAA was signed by the patient and myself on 02/12/2016. A copy of the signed consent and HIPAA were placed in patients chart and a copy was given to the patient along with an activated OZ pharmacy voucher to cover his cost of clopidogrel for the next 12 months. Colton Payne - 02/12/2016 0921 EDT Food Assembler Note: I saw and examined Claudia Batista after today. Patient denies chest pain, shortness of breath, palpitation, fever, chills, cough, headache, numbness, tingling, weakness, at rest and with ambulation. Vitals: BP 121/72 mmHg Pulse 83 Temp(Src) 37.1 ??C (98.8 ??F) (Tympanic) Resp 18 Ht 176.5 cm(69.49) Wt 112.583 kg (248 lb 3.2 oz) BMI 36.14 kg/m2 SpO2 100% GEN: no acute distress Lungs: Clear to auscultation CV: RRR, S1 S2, No gallp, 2/6 systolic murmur at base Ext: no edema, right radial access site clean, no hematoma Neuro: intact to conversation Tele: sinus, no malignant arrhythmia Echo: 1. Left ventricle: The cavity size was normal. Wall thickness was normal. ? Systolic function was normal. The estimated ejection fraction was 60-65%. ? Wall motion was normal; there were no regional wall motion abnormalities. ?? 2. Right ventricle: The cavity size was normal. Wall thickness was normal. ? Systolic function was normal. Assessment: - NSTEMI s/p PCI to mLAD Plan: - cont. dual antiplatelet therapy (ASA, Clopidogrel), statin, Toprol XL - DC home with F/U with cardiac rehab and appointment with Dr. Lozada in 4 weeks Colton Walls M.D. Rosemarie Pfeiffer RT - 02/11/2016 4997 EDT Respiratory Nocturnal BIPAP/CPAP Heart Rate: 70 BPM, Resp: 18, SpO2: 98 %, Breath Sounds Bilateral: Clear Patient was placed on Non-Invasive Ventilation Device Type: Home Unit, Settings were preset on home unit. Pt tolerating well RT CAPO 02/11/2016 Opal Chamorro MD - 02/11/2016 1608 EDT Cardiology Post Procedure Check: S: C today. Patient denies chest pain, palpitations, shortness of breath. No pain or bleeding at access site. He states he is feeling well and has been up walking O: Blood pressure 124/71, pulse 83, temperature 36.2 ??C (97.2 ??F), temperature source Tympanic, resp. rate 16, height 176.5 cm (69.49), weight 105.325 kg (232 lb 3.2 oz), SpO2 98 %. General: Alert and oriented. Comfortable. Conversing appropriately. CV: RRR, no murmurs appreciated Resp: CTA Bilaterally, no wheezes. Abdomen: soft, nontender, nondistended Extremities: distal pulses palpable. Sensation intact. No cyanosis or edema. Access site right radial. Dressing is clean, dry, intact. No ecchymosis, hematoma, or pulsatile mass. A/P: Stable post cath. Continue current care. Opal Vaz MD 02/11/2016 16:08 Krihs Salguero PA - 02/11/2016 1509 EDT Plavix 75mg daily without interruption x 1 year and Aspirin 81 mg daily lifetime reviewed with patient and the patient verbalizes understanding. Cardiac rehab reviewed with patient and the patient is willing to attend. Referral sent and written material given to patient. Follow up has been requested with Nilesh here. Colette Ram RN - 02/11/2016 1027 EDT Initial Case Management/Social Work Assessment and Discharge Plan/Readmission Risk Assessment Reason for Admission: Claudia Batista is a 60 y.o. male, former smoker, with a significant family andpersonal cardiac history including [place] x2 (1993, 2004, s/p stents x8), HTN, HLD, and T2DM transferredfrom [facility] for NSTEM[facility], after presenting there with chest pain which occurred while riding his bike.?? Patient Contact Information: Kayla Batista, spouse, LIVING ARRANGEMENTS AND ACCESSIBILITY ISSUES: Patient lives in [place] with his spouse What in home social supports are available to the patient? as above ADVANCED DIRECTIVES, POA &/or COLST IN PLACE: No CULTURAL, CHURCH and/or LANGUAGE factors affecting health care/discharge planning: N/A Insurance in Place: Yes Type of Insurance: Commercial insurance COMMERCIAL INSURANCE: [employer]BA Blue DISCHARGE RISK ASSESSMENT: Polypharmacy, > 7 medications;Diagnosis of Diabetes Total # selected above: Score of 1 - 2: This patient is at LOW RISK for re-hospitalization Tentative plan to address the risk of re-hospitalization for those at HIGH MODERATE RISK: Bring riskfactors to attention of team to be addressed FUNCTIONAL & PSYCHOSOCIAL INFORMATION: Patient is independent and active MEDICAL AND COMMUNITY SERVICES: Primary Care Provider: Gregoria Nicholas Pharmacy: Other: [facility] today POST HOSPITAL TRANSITION PLAN: Plan d/c home without services when medically stable Colette Sánchez RN 02/11/2016 10:27 Raheel Shaikh MD - 02/11/2016 0216 EDT Claudia Batista is a 60 y.o. male with CAD (multiple stents, last interventions in 08/2009 with MARY toLAD and RCA), HTN, HLD, DM who is transferred from [facility] with NSTEMI. While biking this morning, had precordial chest pain radiating to L jaw, neck and L arm happened twice and relieved with nitro. At [facility] had a non significant ECG, however troponin elevated from 0.02-->1.04. Was given 300 mg Palvix, heparin bolus and drip, asa (on chronic 325 mg asa), 25 metoprolol XL and transferred to . Patient is chest pain free upon arrival. Cardiac meds reviewed significant for amlodipine, asa, lisinopril, metoprolol, rosuvastatin. V/S: BP: 135/78 HR: 70s-low 80s O2: 97% RA Afebrile Exam: no JVD, CTAB, S1,S2, RRR, no MRG, no LE edema Troponin: 1.04 ([facility]), 0.74 at [facility] GFR>60, WBC 10 K ECG:NSR Last Stess Echo 03/2015: EF 60%, no RWMA on peak stress Last [facility] 09/07 and 09/10/2009: LM:Nl LAD:50% mid, 60% distal (FFR was performed and PCI x 3) Cx:40% distal RCA: 90% distal, 70% mid (PCI performed MARY x3) EF:60% A/P: ??NSTEMI - Cycle troponins, - ASA,plavix, IV heparin, - Continue metoprolol, lisinopril and amlodipine - Limited TTE in AM - NPO after midnight, LHC in AM PATIENT CONSENT TO CARDIOVASCULAR CATHETERIZATION OR INTERVENTION: IRaheel MD, have explained the risks and benefits of cardiac catheterization and/or intervention to the patient (or responsible democrat) and have answered the patient's (or responsible democrat's) questions. To the best of my knowledge, the patient (or responsible democrat) has been adequately informed. The patient (or responsible democrat) has consented to the interventional cardiac procedure. As partof the consent we reviewed that, like surgical procedures, interventional procedures require aggressive short term support to determine the potential benefits of the procedures. For this reason, the patient (or responsible democrat) has agreed to remain FULL CODE for a minimum of 48 hours after the procedure Mildred Ross, RT - 02/11/2016 0001 EDT Respiratory Consult/Progress Note Indications for Respiratory therapy: DEEPALI Data Vitals: Heart Rate: 80 BPM, Resp: 16, SpO2: 98 % FIO2/O2 Device: , , O2 Device: None, RT Orders: cpap @ noc Protocol Scoring: Bronchodilator/Inhalation Therapy Frequency Bronchodialator - Clinical Indications: No clinical indications Breath Sounds: Clear Response: No change / no treatment Pulse: <100 Resp Rate: <18 SOB: None Total Score: 0 Comment:: no home resp meds Airway Clearance Therapy Frequency Airway Clearance - Clinical Indications: No clinical indications Breath Sounds: Clear / diminished Sputum: Small (tsp) / None Consistency: None Cough Effort: Strong, non-productive Color: None Total Score: 0 Hyperinflation Therapy Frequency Hyperinflation - Clinical Indications: No clinical indications Breath Sounds: Clear Surgery: No X-Ray / Atelectasis: No O2 Requirements: O2 at baseline Mobility Status: Mobile / at baseline Total: 0 Action/Events Respiratory events; RT consult done. Patient on RA with clear/diminished breath sounds. No home resp medications. Wears cpap @ noc with full mask with no O2 bleed in. Machine ready and patient will place self on when ready for bed. Response/Results Weaning and Toleration of treatments; RT to follow for Cpap wear. RT Berna 02/11/2016 documented in this encounter H&P Notes Clarita Lynch MD - 02/11/2016 0001 EDT Cardiology Admission H&P Admit Date: 02/10/2016 PCP: Gregoria Nicholas [place] Soaping Machine Operator: Goyo Lozada MD CC: chest pain HPI: Claudia Batista is a 60 y.o. male, former smoker, with a significant cardiac history including [place] x2 (1992, 2004, s/p stents x8), HTN, HLD, and T2DM transferred from [facility] for NSTEMI. Patient was biking at approximately 10 am the morning of admission, when he had acute onset of sharp, right sided chest pain which radiated to his neck, jaw, and shoulder which was similar to prior episodes, but was not associated with nausea, SOB or diaphoresis. He took nitro x1 which resolved his pain, though had recurrence of chest pain after resuming physical activity. He called EMS after that chest pain was not relieved with a second nitro. On arrival to [facility] he was HD stable, with labs significant for troponin 0.02-->1.04. EKG was unchanged from baseline. He received plavix 300 mg, metoprolol 25 mg and was started on heparin drip prior to transfer here. On arrival, patient was HD stable and generally without complaint. He states that he has not had chest pain for several hours, noting that pain faded after 1-2 hours in the ED at [facility]. He additionallydenies fevers, chills, nausea, vomiting, SOB, recent illnesses or diaphoresis. He states that he is active daily riding his bike and has not had similar chest pain or had to use nitro since this past winter, when he experienced pain while chopping wood. Subsequent stress test was normal. He follows with Dr. Lozada every 3 months, and was last seen on 02/05/16. No medication changes were made at that visit. Relevant prior Cardiac Studies: Stress ECHO 08/30/15: ?? Impressions: ?? Negative for ischemia after maximal exercise with reproduction of ?? symptoms. ? 1. Baseline: LV size was normal. LV global systolic function was normal. Normal ? wall motion; no LV regional wall motion abnormalities. ?? 2. Procedure narrative: Treadmill exercise testing was performed using the Gary ? protocol. The patient exercised for 9 min 1 sec, to protocol stage 3, to a ? maximal work rate of 10.2mets. Exercise was terminated due to moderate ? dyspnea and moderate fatigue. ?? 3. Stress: Maximal heart rate during stress was 145bpm (91% of maximal predicted ? heart rate). The maximal predicted heart rate was 160bpm.The target heart ? rate was achieved. The heart rate response to stress was normal. ?? 4. Peak stress: LV size was reduced appropriately. LV global systolic function ? was appropriately augmented from baseline. Normal wall motion; no LV regional ? wall motion abnormalities. ?? 5. Stress ECG conclusions: There were no stress arrhythmias or conduction ? abnormalities. The stress ECG was negative for ischemia. ?? 6. Staged echo: There was no echocardiographic evidence for stress-induced ? ischemia. 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 DM and CAD in brother. All men in family have heart disease and or heart attacks. Social: Former smoker, up to 2 ppd (quit ). Occasional EtOH, denies illicit drug use. , lives with . bikes regularly several miles. 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 Cooperative, appears comfortable lying in bed HEENT: atraumatic, normocephalic, PERRLA, EOMI. conjunctivae/corneas clear Neck: supple, symmetrical, trachea midline CV: Regular rate and rhythm, soft 2/6 murmur appreciated Resp: good air movement B/L, no wheezes, rales or rhonchi. No accessory muscle use, no respiratory distress Abd: obese, soft, nontender, normal bowel sounds, no rebound, masses or guarding Extr: extremities warm, atraumatic, no cyanosis or edema. DP 2+ bilaterally Neuro: Follows basic commands, no focal neurologic deficits Skin: Skin color, tempature, turgor normal. No rashes or lesions EKG at OSH reviewed: NSR, rate 91, unchanged from prior. EKG pending here. Labs: OSH labs: Reviewed, significant for troponin 0.02-->1.04. BMP, CBC and LFTs WNL. [facility] labs: BMP, CBC WNL. Trop pending Imaging: None ASSESSMENT: Claudia Batista is a 60 y.o. male, former smoker, with a significant family and personal cardiac history including VT x2 (1992, 2004, s/p stents x8), HTN, HLD, and T2DM transferred from [facility] for NSTEMI, after presenting there with chest pain which occurred while riding his bike. He is currently HD stable and chest pain free. PLAN NSTEMI: Currently asymptomatic. Trop elevated to 1.02 at OSH, pending here. EKG unchanged from prior. Received plavix 300 mg, metoprolol 25 mg and started on heparin gtt prior to transfer. - Cycle trop - continue heparin gtt - continue metoprolol XL 150 mg daily - decrease TRAINING PERSONNEL SUPERVISOR ASA to 81 mg daily - ECHO tomorrow - start plavix 75 mg daily - Monitor on telemetry - NPO after midnight for [facility] tomorrow - Check FLP and HbA1c Hypertension: Goal BP <130/80, currently well controlled. - continue TRAINING PERSONNEL SUPERVISOR lisinopril 5 mg daily - continue TRAINING PERSONNEL SUPERVISOR amlodipine 10 mg daily Hyperlipidemia / CAD: - decrease TRAINING PERSONNEL SUPERVISOR rouvastatin to 20 mg daily - FLP in AM T2DM: Takes lantus 30 units in AM, 35 units at night. Last documented A1c here 6.8%. No known complications - hold MTA metformin 1000 mg BID and liraglutide 1.2 mg qhs - FS/SS aspart q6h while NPO - hold PM lantus, likely restart tomorrow pending AM sugar - recheck hemoglobin A1c in AM DEEPALI: - continue home CPAP FEN: NPO Code: FULL- discussed with patient on arrival. is decision maker if he is unable to do so himself. Would also like to complete Advanced Directive this admission DVT PPx: Heparin gtt Disposition: Pending clinical course Clarita Lynch, PGY-2 [phone] 02/11/2016 0:37 Associated attestation - Jaxson Schmitt MD - 02/11/2016 1320 EDT Attestation: I saw and examined the patient with the resident/fellow 02/11/2016. I agree with the findings and plan of care documented in the resident's/fellow's note. Typical, extertional chest pain, borderline biomarkers; for [facility] today. Jaxson Schmitt MD 02/11/2016 13:20documented in this encounter Procedure Notes Nash Herron Jr., MD - 02/11/2016 1201 EDT Images from the original note were not included. Cardiovascular Catheterization Laboratory Preliminary Report -- Catheterization Date of Service/Procedure: 02/11/2016 Attending Physician: Nash Herron MD Fellow: Connie Sky MD and Iraj Hensley MD Pre-Procedure Diagnosis/Indication: Claudia Batista is a 60 y.o. year old male with Known coronary artery disease and NSTEMI. NCDR Indication for PCI:NSTEMI Prior Stress Testing? No Cardiac Medications: On two or more anti anginal medications at the time of catheterization? Yes Anesthesia: A moderate level of anesthesia/conscious sedation was used in addition to local anesthesia. Access:Right radial artery Procedure: He was brought to [facility] Cardiac Catheterization Laboratory for the procedure: Diagnostic coronary/graft angiography, LV gram, Left heart cath, Coronary intervention (PCI) and OCT. Closure: TR Band Post-Procedure Condition: The condition of the patient was Good. Complications: None. IV Contrast Total: 130 mL Estimated Blood Loss: Minimal. Unless otherwise noted,there were no specimens removed, cultures obtained, or drains retained. Research Study: Patient is not enrolled in a research study. Diagnostic Cardiac Study Results Left main: Free of angiographically significant disease. Left anterior descending: Mid severe in-stent restenosis, 80%. OCT catheter could not cross prior tostenting. Leftcircumflex: OM with distal 60%. Right coronary artery: Dominant. Minor luminal irregularities. Left Ventriculography and Hemodynamic Results LVEDP 10-12 There was no gradient across the aortic valve. Left ventricular function: normal Ejection fraction: 55% Regional wall motion: normal Post-Procedure Diagnostic Conclusion: PCI is indicated. Interventional Procedure: Using standard technique, the mid left anterior descending coronary arterywas stented using a Synergy 2.5x20mm MARY. OCT after stenting confirmed stent apposition and sizing. Distal old stent with minimal in stent restenosis. Plan: See post-procedure orders. Aspirin 81mg po daily. Plavix 75 mg po daily x 1 year minimum. Check echocardiogram for EF. Evaluation for cardiac rehab program. High intensity statin At the completion of the procedure, the attending physician has explained the findings, therapies, any complications and treatment plan to the patient. With the patients consent, all family members andpatient support persons who were present at the conclusion of the procedure have been notified of these results and treatment plans as well. Post Procedure Follow Up: Patient to follow up with Dr. Lozada in 4 weeks Post Interventional Conclusion/Physician Disposition: (check one main category) Inpatient procedure, continue inpatient status (no procedural complication required) Nash Herron MD PagerNumber: [phone] 02/11/2016 12:01 documented in this encounter Miscellaneous Notes Plan of Care - Cheli Kulkarni RN - 02/12/2016 1429 EDT Problem: Daily Care Plan Goals Goal: Care Plan Documentation Outcome: Completed Date Met: 02/12/16 02/12/1699 Care Plan Focus Area of Focus Circulatory Status Goal This Shift vss ME506/02 Claudia Batista 60 y.o. male Length of Stay: day(s) Admitted: 02/10/2016 23:20 Service: Cardiology Code Status: Full Code 14:31-- D: Discharge order written by treatment team. A: After Visit Summary printed for Claudia name to review. ?? Intact IV access removed; ?? Telemetry discontinued; ?? Printed prescriptions given, faxed to pharmacy ?? Reviewed medication schedule & clarified today's medications, ?? Follow-up appointments reviewed. R: Patient is pain-free, has no further questions, and states he understands discharge instructions.Signed copy of AVS received. Pt left with . lan of Care - Marci Valiente RN - 02/12/2016 0242 EDT Problem: Daily Care Plan Goals Goal: Care Plan Documentation Outcome: Ongoing 02/12/1699 Care Plan Focus Area of Focus Circulatory Status Goal This Shift vss D- assumed care of pt at 1530. Pt s/p LHC with 1 MARY to mid LAD via right radial artery. Pt VSS and cath site c/d/i. HR NSR 60-80's. A- assessment as documented. Pt with no complaints of pain and up ambulating with no chest pain. R- Pt resting in bed. No signs/symptoms of distress. CTM lan of Care - Starr Esteves RN - 02/11/2016 1036 EDT Problem: Daily Care Plan Goals Goal: Care Plan Documentation Outcome: Ongoing 02/11/16 0750 Care Plan Focus Area of Focus Circulatory Status Goal This Shift vss D: Assumed patient care at 0700. Pt is alert and oriented x 3. Pt is on telemetry. Vital signs stable. Pt denies any pain. A: Pt is NPO for [facility] today. Pt ambulating hallway several times independently. R: Pt denies any needs. Will continue to monitor. 1200 Pt returned from director of cardiac cath lab, right radial approach. 1 MARY to mid LAD lan of Care - Ken Patton RN - 02/11/2016 0000 EDT Problem: Daily Care Plan Goals Goal: Care Plan Documentation Outcome: Ongoing 02/10/16 2326 Care Plan Focus Area of Focus Circulatory Status Goal This Shift VSS, CP free D: Patient arrived to [place] [address]. Vital signs noted, and tele applied. Patient in NSR with heart rate in 70s. Patient denies chest pain, SOB, and discomfort. A: Assessment as documented in flow sheet. Admission database completed. Patient orientated to room,equipment, and care plan. R: Continue to monitor and document per protocol. documented in this encounter Plan of Treatment Upcoming Encounters Date Type Specialty Care Team Description 09/29/2022 Office Visit Gastroenterology and [facility] [address] [facility], [address] [place] [address] (Wo rk) Scheduled Referrals Name Type Priority Associated Order Schedule Diagnoses AMB CONS/FOLLOW UP Outpatient Referral Routine NSTEMI (non-ST Ordered: PRIMARY CARE PHYSICIAN elevated 02/10 myocardial infarction) ([facility]) AMB CONS/FOLLOW UP Outpatient Referral Routine NSTEMI (non-ST Ordered: CARDIAC REHABILITATION elevated 02/10 myocardial infarction) ([facility]) AMB CONS/FOLLOW UP Outpatient Referral Routine NSTEMI (non-ST Ordered: CARDIOLOGY elevated 02/12/2016 myocardial infarction) ([facility]) documented as of this encounter Procedures Procedure Name Priority Date/Time Associated Comments Diagnosis INVASIVE CARDIOLOGY 02/18/2016 12:37 REPORT-SCANNED EDT ECG REPORT - SCANNED 02/18/2016 12:37 EDT ECG REPORT - SCANNED 02/18/2016 12:37 EDT ECG REPORT - SCANNED 02/15/2016 14:10 EDT ECG REPORT - SCANNED 02/13/2016 8:43 EDT GLUCOSE, GLUCOMETER Routine 02/12/2016 11:24 Resu lts for this EDT procedure are i n the results section. GLUCOSE, GLUCOMETER Routine 02/12/2016 7:07 Resul ts for this EDT procedure are i n the results section. COMPLETE BLOOD COUNT Routine 02/12/2016 5:49 Resu lts for this EDT procedure are i n the results section. BUN Routine 02/12/2016 5:49 Results for this EDT procedure are i n the results section. CREATININE Routine 02/12/2016 5:49 Results for this EDT procedure are i n the results section. ELECTROLYTES Routine 02/12/2016 5:49 Results for this EDT procedure are i n the results section. GLUCOSE, GLUCOMETER Routine 02/11/2016 20:24 Resu lts for this EDT procedure are i n the results section. GLUCOSE, GLUCOMETER Routine 02/11/2016 17:08 Resu lts for this EDT procedure are i n the results section. GLUCOSE, GLUCOMETER Routine 02/11/2016 12:41 Resu lts for this EDT procedure are i n the results section. EKG 12-LEAD Routine 02/11/2016 12:39 Results for this EDT procedure are i n the results section. LEFT HEART CATH Routine 02/11/2016 11:13 Results for this EDT procedure are i n the results section. ECHOCARDIOGRAM LIMITED Routine 02/11/2016 10:29 R esults for this EDT procedure are i n the results section. TROPONIN I Routine 02/11/2016 7:44 Results for this EDT procedure are i n the results section. HEPARIN LEVEL - STAT 02/11/2016 7:44 Results f or this UNFRACTIONATED HEPARIN EDT proce dure are in the results section. GLUCOSE, GLUCOMETER Routine 02/11/2016 6:07 Resul ts for this EDT procedure are i n the results section. HEPARIN LEVEL - STAT 02/11/2016 5:33 Results f or this UNFRACTIONATED HEPARIN EDT proce dure are in the results section. COMPLETE BLOOD COUNT Routine 02/11/2016 5:33 Resu lts for this EDT procedure are i n the results section. BUN Routine 02/11/2016 5:33 Results for this EDT procedure are i n the results section. MAGNESIUM Routine 02/11/2016 5:33 Results for this EDT procedure are i n the results section. CREATININE Routine 02/11/2016 5:33 Results for this EDT procedure are i n the results section. LIPID PROFILE (INCLUDES Routine 02/11/2016 5:33 R esults for this CHOLESTEROL, EDT procedure are i n TRIGLYCERIDES, HDL, the resu lts LDL) section. ELECTROLYTES Routine 02/11/2016 5:33 Results for this EDT procedure are i n the results section. HEPARIN LEVEL - STAT 02/11/2016 1:39 Results f or this UNFRACTIONATED HEPARIN EDT proce dure are in the results section. TROPONIN I Routine 02/10/2016 23:41 Results for this EDT procedure are i n the results section. PROTIME Routine 02/10/2016 23:41 Results for this EDT procedure are i n the results section. COMPLETE BLOOD COUNT Routine 02/10/2016 23:41 Res ults for this EDT procedure are i n the results section. BUN Routine 02/10/2016 23:41 Results for this EDT procedure are i n the results section. MAGNESIUM Routine 02/10/2016 23:41 Results for this EDT procedure are i n the results section. HEMOGLOBIN A1C Routine 02/10/2016 23:41 Results f or this EDT procedure are i n the results section. CREATININE Routine 02/10/2016 23:41 Results for this EDT procedure are i n the results section. ELECTROLYTES Routine 02/10/2016 23:41 Results for this EDT procedure are i n the results section. GLUCOSE, GLUCOMETER Routine 02/10/2016 23:31 Resu lts for this EDT procedure are i n the results section. EKG 12-LEAD Routine 02/10/2016 23:28 Results for this EDT procedure are i n the results section. documented in this encounter Results (ABNORMAL) GLUCOSE, GLUCOMETER (02/12/2016 11:24 EDT) Glucose, 125 (H) 70 - 100 [facility] Fingerstick mg/dl LABORATORY SERVICES Manager Laboratory ID [id number]: [facility] Test Performed by LABORATORY Nursing Services SERVICES Specimen Blood Performing Organization Address City/State/ZIP Code Phon e Number [facility] LABORATORY [address] [place] [address] SERVICES (ABNORMAL) GLUCOSE, GLUCOMETER (02/12/2016 7:07 EDT) Glucose, 209 (H) 70 - 100 [facility] Fingerstick mg/dl LABORATORY SERVICES Manager Laboratory ID [id number]: [facility] Test Performed by LABORATORY Nursing Services SERVICES Specimen Blood Performing Organization Address City/State/ZIP Code Phon e Number [facility] LABORATORY [address] [place] [address] SERVICES CREATININE (02/12/2016 5:49 EDT) Creatinine 0.79 0.66 - 1.25 [facility] mg/dl LABORATORY SERVICES GFR, Calculated 97 >60 [facility] Comment: ml/min/1.73m2 LABORATORY eGFR calculated using CKD-EPI equation for SERVICES non Americans. Multiply eGFR by 1.16 for Americans. Specimen Blood specimen (specimen) - Blood Performing Organization Address City/State/ZIP Code Phon e Number [facility] LABORATORY [address] [place] [address] SERVICES BUN (02/12/2016 5:49 EDT) Pathologist Sig nature BUN 12 10 - 26 mg/dl [facility] LABORATO RY SERVICES Specimen Blood specimen (specimen) - Blood Performing Organization Address City/State/ZIP Code Phon e Number [facility] LABORATORY [address] [place] [address] SERVICES ELECTROLYTES (02/12/2016 5:49 EDT) Pathologist Sig nature Sodium 139 136 - 145 mEq/L [facility] LABORA TORY SERVICES Potassium 4.4 3.5 - 5.0 mEq/L [facility] LABORA TORY SERVICES Chloride 99 96 - 110 mEq/L [facility] LABORAT ORY SERVICES CO2 29 24 - 32 mEq/L [facility] LABORATO RY SERVICES Specimen Blood specimen (specimen) - Blood Performing Organization Address City/State/ZIP Code Phon e Number [facility] LABORATORY [address] [place] [address] SERVICES (ABNORMAL) HEMAGRAM (02/12/2016 5:49 EDT) Pathologist Sig nature WBC 7.99 4.0 - 10.4 K/cmm [facility] LABORATORY SERVICES RBC 4.77 4.36 - 5.78 M/cmm [facility] LABORATORY SERVICES Hemoglobin 13.6 (L) 13.8 - 17.3 gm/dl [facility] LABORATORY SERVICES HCT 39.7 39.5 - 50.2 % [facility] LABORATORY SERVICES MCV 83 81 - 95 fl [facility] LABORATORY SERVICES MCH 28.5 27.6 - 33.0 pg [facility] LABORATORY SERVICES MCHC 34.3 32.8 - 36.4 gm/dl [facility] LABORATORY SERVICES RDW-CV 13.2 11.8 - 14.1 % [facility] LABORATORY SERVICES RDW-SD 39.9 36.5 - 45.9 fl [facility] LABORATORY SERVICES PLT 257 141 - 377 K/cmm [facility] LABORATORY SERVICES MPV 10.2 9.5 - 12.7 fl [facility] LABORATORY SERVICES Specimen Blood specimen (specimen) - Blood Performing Organization Address City/[facility]/ZIP Code Phon e Number [facility]OR[facility]ORY [address] [place] [address] SERVICES (ABNORMAL) GLUCOSE, GLUCOMETER (02/11/2016 20:24 EDT) Glucose, 181 (H) 70 - 100 [facility] Fingerstick mg/dl LABORATORY SERVICES Manager Laboratory ID [id number]: [facility] Test Performed by LABORATORY Nursing Services SERVICES Specimen Blood Performing Organization Address City/State/ZIP Code Phon e Number [facility] LABORATORY [address] [place] [address] SERVICES (ABNORMAL) GLUCOSE, GLUCOMETER (02/11/2016 17:08 EDT) Glucose, 153 (H) 70 - 100 [facility] Fingerstick mg/dl LABORATORY SERVICES Manager Laboratory ID [id number]: [facility] Test Performed by LABORATORY Nursing Services SERVICES Specimen Blood Performing Organization Address City/[facility]/ZIP Code Phon e Number [facility] LABORATORY [address] [place] [address] SERVICES (ABNORMAL) GLUCOSE, GLUCOMETER (02/11/2016 12:41 EDT) Glucose, 153 (H) 70 - 100 [facility] Fingerstick mg/dl LABORATORY SERVICES Manager Laboratory [place] [id number]: [facility] Test Performed by LABORATORY Nursing Services SERVICES Specimen Blood Performing Organization Address City/[facility]/ZIP Code Phon e Number [facility] LABORATORY [address] [place] [address] SERVICES EKG 12-LEAD (02/11/2016 12:39 EDT) Specimen Narrative [facility] EKG - 02/12/2016 16:0 1 EDT ? [facility] ? Test Date: ?2016-02-11 Pat Name: ? CLAUDIA BATISTA ? Department: ?? ANUSHA Marte ? Room: ? ME506 Gender: ? 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 [id number] : ?1955 ? Requested By: GRANT ALVARADO Order Number: [id number] ? Reading MD: ?? RYLIE LOZADA MD ? Measurements Intervals ?[place] ? Rate: ? 71 ? P: ?4 IL: ? 213 ?QRS: ?73 QRSD: ? 108 ?T: ?28 QT: ? 388 ? QTc: ?423 ? Interpretive Statements SINUS RHYTHM WITH FIRST DEGREE AV BLOCK Compared to ECG 02/10/2016 23:28:00 No significant changes I reviewed the tracing and have either a greed or edited the findings in this report. Electronically Signed On 16:01:07 EDT by RYLIE LOZADA MD. 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 Electronically Signed On 16:01:07 EDT by RYLIE LOZADA MD. Performing Organization Address City/State/ZIP Code Phon e Number [facility] EKG LEFT HEART CATH (02/11/2016 11:13 EDT) Specimen Narrative [facility] CARDIOLOGY MAIN [facility] S - 02/14/2016 11:01 EDT Cardiology [address] [place] [id number] Catheterization Laboratory Study Patient: Claudia Batista ? Study Date: ?02/11/2016 ?Accession #: ? [id number] : ? 1955 Referring Physician: Gregoria Nicholas* Diagnostic Attending: ??Nash Herron Interventional Attending: ?? Lisa Herron Diagnostic Fellow: Colton Walls Interventional Fellow: Colton Walls ATTESTATION: Dr. Nash Herron was present and superv ising for the entire procedure, I Dr. Colton Walls was the initial author of t his report. I, Dr. Nash Herron have reviewed and agree with the findings of this report. PROCEDURE PLAN: Based on the diagnostic study percutaneo us coronary intervention is indicated. RESEARCH STUDY: Patient is not enrolled in any research studies. IMPRESSIONS: 1. Severe single vessel coronary artery disease of mid LAD artery (80% in-stent ?? restenosis) and mild disease elsewhe re. Percutaneous intervention is ?? indicated. 2. Non ST-elevated myocardial infarction (NSTEMI). The culprit lesion was ?? identified and reperfusion was succe ssfully achieved. SUMMARY: 1. HPI and indications: Dyspnea. Non-ST- elevated myocardial infarction. 2. Left ventricle: Systolic function is normal. The estimated ejection fraction ?? is 55%. Wall motion is normal; there are no regional wall motion ?? abnormalities. 3. Left main: Normal. 4. LAD: Prior intervention: stent in the proximal LAD. The stented segment is ?? patent. Mid-vessel lesion: There is a discrete, 16mm (L), 80% in-stent ?? restenosis. The lesion was stented ( see 1st lesion intervention), with ?? balloon angioplasty. Following inter vention, the lesion has a residual ?? stenosis of 0%, an excellent angiogr aphic appearance, and CECE grade 3 flow ?? (brisk flow). 5. 1st obtuse marginal: Distal vessel le monse: There is a 60% stenosis. 6. Right coronary: Minor luminal irregul arities. RECOMMENDATIONS: 1. Patient management should include ris k factor modification and a cardiac ?? rehabilitation program. The patient was counseled regarding the importance of ?? adherence to the prescribed antiplat elet therapy. 2. Continue aspirin, at 81mgPOdaily, ind efinitely. 3. Continue clopidogrel (Plavix), at 75m gPOdaily, for 1yr. HISTORY: Dyspnea. ??Cdc-RE-azlnhdqz myocardial in farction. ??PMH: ?? Myocardial infarction. Functional status: ?? CCS class IV (helio na at rest or with any physical activity). ??Risk factors: ??Family hist ory of coronary artery disease. Hypertension. Dyslipidemia. ??Medication s: ??Calcium channel blockers. Anti-anginal therapy. ??Allergies: ??No known allergies. LABS, PRIOR TESTS, PROCEDURES AND SURGER Y: Serum creatinine (current admission) of 0.8 mg/dl. ??Hematocrit of 41 %. Platelet count of 269 th/ul. ??Hemoglobi n (pre-procedure) of 14 g/dl. Catheterization with coronary interventi on. STUDY DATA: Study status: ??Cardiac cath: urgent. Pe rcutaneous coronary intervention: urgent. Patient status: ??Inpatient. ??Location : ??Catheterization laboratory. Sex: male. Patient is 60yr old. Height: 176.5cm. We ight: 105.3kg. BSA: 2.31m^2. Procedures performed: ?Right radi al artery access. ?Left heart catheterization with angiography. ?L eft coronary angiography. ?Left coronary angiography. ?Lesion int ervention: ?? Percutaneous intervention on the 80% restenosis in the mid LAD. ?I nterventional OCT examination; unsuccessful attempt. ?Balloon angioplasty. ? Balloon angioplasty. ?Stent placement. Interventional OCT examination. ANESTHESIA: Conscious sedation. PROCEDURE: 1. Initial setup. The patient was jameson t to the laboratory in the fasting ?? state. A baseline ECG was recorded. Surface ECG leads, automatic cuff blood ?? pressure measurements, and pulse oxi metric signals were monitored. 2. Skin preparation. The planned punctur e sites were prepped with chlorhexidine ?? and draped in the usual sterile coa er. 3. Right radial artery access. A 6 Fr/10 /.021 [place] Sheath SLENDER sheath was ?? advanced into the vessel. 4. Left heart catheterization with angio graphy. A 5 FR Pedro Luis catheter was ?? advanced across the aortic valve to the left ventricle under fluoroscopic ?? guidance. 12ml of contrast was injec antonio by hand. 5. Selective left coronary angiography. A 5 FR Pedro Luis catheter was advanced into ?? the left coronary vessel ostium unde r fluoroscopic guidance. Contrast was ?? injected. Images were obtained in mu ltiple projections. 6. Selective left coronary angiography. A 5 FR Pedro Luis catheter was advanced into ?? the left coronary vessel ostium unde r fluoroscopic guidance. Contrast was ?? injected. Images were obtained in mu ltiple projections. 7. Catheter exchange. The catheter was e xchanged for a 6 FR/ 100cm IKARI LEFT ?? 3.75 catheter. 8. Right radial artery hemostasis. The s huber was removed. Mechanical ?? compression was applied. 1st lesion intervention: Percutaneous intervention on the 80% res tenosis in the mid LAD. 1. Guider placement. A 6 FR/ 100cm IKARI LEFT 3.75 guiding catheter was ?? successfully placed into the ostium of the left main. 2. Wire placement. A 180 Prowater wire w as placed across the lesion in the LAD ?? coronary artery. 3. Optical coherence tomography evaluati on; unsuccessful attempt due to ?? inability to pass the OCT imaging ca theter across the lesion. The imaging ?? catheter was withdrawn and no imagin g was performed. 4. Balloon angioplasty. A 2mm (D) x 15mm (L), [place] RX balloon was employed. The ?? balloon was placed across the lesion and given a single inflation with a ?? maximum inflation pressure of 13atm. 5. Balloon angioplasty. A 2.5mm (D) x 12 mm (L), [place] Quantum [place] balloon was ?? employed. The balloon was placed acr oss the lesion and given a single ?? inflation with a maximum inflation p ressure of 20atm. 6. Stent placement. A 2.5mm (D) x 20mm ( L), Synergy stent was advanced across ?? the lesion and deployed with a singl e inflation and a maximum pressure of ?? 20atm. 7. Optical coherence tomography evaluati on. An OCT imaging catheter was advanced ?? into position distal to the lesion. The imaging catheter was withdrawn at a ?? constant velocity as imaging was per formed. STUDY COMPLETION: The estimated blood loss was 10ml. All c atheters inserted during the procedure were removed. The patient tolerated the procedure well and was discharged from the lab. There were no complications. ?? Contrast: ?? Omnipaque 130ml (total dose). Omnipaque 70ml (wasted). ??Fluoroscopy time: ??16.6min. ??Fluoroscopy dose: 39.4cGy. CORONARY ARTERIES: The coronary circulation is right domina nt. Left main: ??Normal. LAD: Prior intervention: stent in the pr oximal LAD. The stented segment is patent. ??Mid-vessel lesion: There is a discrete, 16mm (L), 80% in-stent restenosis. This lesion is without evide nce of thrombus. There is CECE grade 3 flow (brisk flow) across the lesion. The lesion is significant by visual estimate. The distal vessel supplies a l arge vascular territory. The lesion is a likely culprit for the patient's recent myocardial infarction. The lesion was stented (see 1st lesion intervention), w ith balloon angioplasty. Following intervention, the lesion has a residual stenosis of 0%, an excellent angiographic appearance, and CECE grade 3 flow (brisk flow). There were no site complications. 1st obtuse marginal: ??Distal vessel les ion: There is a 60% stenosis. Right coronary: ??Minor luminal irregula rities. LEFT VENTRICLE: Systolic function is normal. The estimat ed ejection fraction is 55%. Wall motion is normal; there are no regional wall mo tion abnormalities. Wall motion score: 1.00. AORTIC VALVE: There was no gradient across the aortic valve. HEMODYNAMICS: Early diastolic pressure in the left augustus tricle is normal at 10-12 mmHg. + + + LV pressure s/ed ? 101/10 ? + + + Arterial pressure s/d (m) 89/63 (77) + + + * Electronically signed by Nash Herron Jr., MD 2016-02-14 11:01 Procedure Note Nash Herron Jr., MD - 02/14/[address] [place] [address] Catheterization Laboratory Study Patient: Claudia Batista Study Date: : 1955 Referring Physician: Gregoria Nicholas Diagnostic Attending: Nash Herron Interventional Attending: Nash Herron Diagnostic Fellow: Colton Walls Interventional Fellow: Colton Walls ATTESTATION: Dr. Nash Herron was present and superv ising for the entire procedure, I Dr. Colton Walls was the initial author of t his report. I, Dr. Nash Herron have reviewed and agree with the findings of this report. PROCEDURE PLAN: Based on the diagnostic study percutaneo us coronary intervention is indicated. RESEARCH STUDY: Patient is not enrolled in any research studies. IMPRESSIONS: 1. Severe single vessel coronary artery disease of mid LAD artery (80% in-stent restenosis) and mild disease elsewhere. Percutaneous intervention is indicated. 2. Non ST-elevated myocardial infarction (NSTEMI). The culprit lesion was identified and reperfusion was successf ully achieved. SUMMARY: 1. HPI and indications: Dyspnea. Non-ST- elevated myocardial infarction. 2. Left ventricle: Systolic function is normal. The estimated ejection fraction is 55%. Wall motion is normal; there ar e no regional wall motion abnormalities. 3. Left main: Normal. 4. LAD: Prior intervention: stent in the proximal LAD. The stented segment is patent. Mid-vessel lesion: There is a d iscrete, 16mm (L), 80% in-stent restenosis. The lesion was stented (see 1st lesion intervention), with balloon angioplasty. Following interven tion, the lesion has a residual stenosis of 0%, an excellent angiograph ic appearance, and CECE grade 3 flow (brisk flow). 5. 1st obtuse marginal: Distal vessel le monse: There is a 60% stenosis. 6. Right coronary: Minor luminal irregul arities. RECOMMENDATIONS: 1. Patient management should include ris k factor modification and a cardiac rehabilitation program. The patient was counseled regarding the importance of adherence to the prescribed antiplatele t therapy. 2. Continue aspirin, at 81mgPOdaily, ind efinitely. 3. Continue clopidogrel (Plavix), at 75m gPOdaily, for 1yr. HISTORY: Dyspnea. Moy-JD-bnhzrcly myocardial infa rction. PMH: Myocardial infarction. Functional status: CCS class IV (angina at rest or with any physical activity). Risk factors: Family history of coronary artery disease. Hypertension. Dyslipidemia. Medications: Calcium channel blockers. Anti-anginal therapy. Allergies: No know n allergies. LABS, PRIOR TESTS, PROCEDURES AND SURGER Y: Serum creatinine (current admission) of 0.8 mg/dl. Hematocrit of 41 %. Platelet count of 269 th/ul. Hemoglobin (pre-procedure) of 14 g/dl. Catheterization with coronary interventi on. STUDY DATA: Study status: Cardiac cath: urgent. Perc utaneous coronary intervention: urgent. Patient status: Inpatient. Location: Nm theterization laboratory. Sex: male. Patient is 60yr old. Height: 176.5cm. We ight: 105.3kg. BSA: 2.31m^2. Procedures performed: Right radial arter y access. Left heart catheterization with angiography. Left c oronary angiography. Left coronary angiography. Lesion intervention: Percut aneous intervention on the 80% restenosis in the mid LAD. Intervent ional OCT examination; unsuccessful attempt. Balloon angioplasty. Balloon an gioplasty. Stent placement. Interventional OCT examination. ANESTHESIA: Conscious sedation. PROCEDURE: 1. Initial setup. The patient was jameson t to the laboratory in the fasting state. A baseline ECG was recorded. Breezy face ECG leads, automatic cuff blood pressure measurements, and pulse oximet manuel signals were monitored. 2. Skin preparation. The planned punctur e sites were prepped with chlorhexidine and draped in the usual sterile manner. 3. Right radial artery access. A 6 Fr/10 /.021 [place] Sheath SLENDER sheath was advanced into the vessel. 4. Left heart catheterization with angio graphy. A 5 FR Pedro Lusi catheter was advanced across the aortic valve to the left ventricle under fluoroscopic guidance. 12ml of contrast was injected by hand. 5. Selective left coronary angiography. A 5 FR Pedro Luis catheter was advanced into the left coronary vessel ostium under f luoroscopic guidance. Contrast was injected. Images were obtained in multi ple projections. 6. Selective left coronary angiography. A 5 FR Pedro Luis catheter was advanced into the left coronary vessel ostium under f luoroscopic guidance. Contrast was injected. Images were obtained in multi ple projections. 7. Catheter exchange. The catheter was e xchanged for a 6 FR/ 100cm IKARI LEFT 3.75 catheter. 8. Right radial artery hemostasis. The s huber was removed. Mechanical compression was applied. 1st lesion intervention: Percutaneous intervention on the 80% res tenosis in the mid LAD. 1. Guider placement. A 6 FR/ 100cm IKARI LEFT 3.75 guiding catheter was successfully placed into the ostium of the left main. 2. Wire placement. A 180 Prowater wire w as placed across the lesion in the LAD coronary artery. 3. Optical coherence tomography evaluati on; unsuccessful attempt due to inability to pass the OCT imaging michael ter across the lesion. The imaging catheter was withdrawn and no imaging w as performed. 4. Balloon angioplasty. A 2mm (D) x 15mm (L), [place] RX balloon was employed. The balloon was placed across the lesion an d given a single inflation with a maximum inflation pressure of 13atm. 5. Balloon angioplasty. A 2.5mm (D) x 12 mm (L), [place] Quantum [place] balloon was employed. The balloon was placed across the lesion and given a single inflation with a maximum inflation pres sure of 20atm. 6. Stent placement. A 2.5mm (D) x 20mm ( L), Synergy stent was advanced across the lesion and deployed with a single i nflation and a maximum pressure of 20atm. 7. Optical coherence tomography evaluati on. An OCT imaging catheter was advanced into position distal to the lesion. The imaging catheter was withdrawn at a constant velocity as imaging was perfor med. STUDY COMPLETION: The estimated blood loss was 10ml. All c atheters inserted during the procedure were removed. The patient tolerated the procedure well and was discharged from the lab. There were no complications. Co ntrast: Omnipaque 130ml (total dose). Omnipaque 70ml (wasted). Fluoroscopy ti me: 16.6min. Fluoroscopy dose: 39.4cGy. CORONARY ARTERIES: The coronary circulation is right domina nt. Left main: Normal. LAD: Prior intervention: stent in the pr oximal LAD. The stented segment is patent. Mid-vessel lesion: There is a di screte, 16mm (L), 80% in-stent restenosis. This lesion is without evide nce of thrombus. There is CECE grade 3 flow (brisk flow) across the lesion. The lesion is significant by visual estimate. The distal vessel supplies a l arge vascular territory. The lesion is a likely culprit for the patient's recent myocardial infarction. The lesion was stented (see 1st lesion intervention), w ith balloon angioplasty. Following intervention, the lesion has a residual stenosis of 0%, an excellent angiographic appearance, and CECE grade 3 flow (brisk flow). There were no site complications. 1st obtuse marginal: Distal vessel lesio n: There is a 60% stenosis. Right coronary: Minor luminal irregulari ties. LEFT VENTRICLE: Systolic function is normal. The estimat ed ejection fraction is 55%. Wall motion is normal; there are no regional wall mo tion abnormalities. Wall motion score: 1.00. AORTIC VALVE: There was no gradient across the aortic valve. HEMODYNAMICS: Early diastolic pressure in the left augustus tricle is normal at 10-12 mmHg. + + + LV pressure s/ed 101/10 + + + Arterial pressure s/d (m) 89/63 (77) + + + * Electronically signed by Nash Herron Jr., MD 2016-02-14 11:01 Performing Organization Address City/State/ZIP Code Phon e Number [facility] ECHOCARDIOGRAM LIMITED (02/11/2016 10:29 EDT) Specimen Narrative [facility] - 02/11/2016 11:00 EDT *Interpreting Group:* *[facility]* [address] [place] [id number] Date of study: 02/11/2016 Transthoracic Echocardiography M-mode and limited 2D *STUDY CONCLUSIONS* Summary: 1. Left ventricle: The cavity size was n ormal. Wall thickness was normal. ?? Systolic function was normal. The es timated ejection fraction was 60-65%. ?? Wall motion was normal; there were n o regional wall motion abnormalities. 2. Right ventricle: The cavity size was normal. Wall thickness was normal. ?? Systolic function was normal. *PATIENT PRESENTATION* Height: ? 177.8cm ((70in) ) S/D Pressure: 121 / 64 Weight: ? 105.2kg ((231.5lb) ) BSA: ?2.31m^2 Test start time: ??08:39 AM. Test stop time: ??09:04 AM. 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 [facility] ORDERING ? Raheel Rodriguez REFERRING ?Jennifer Amir *PROCEDURE DATA* Procedure information: ??This study was interpreted by [facility]. Pertinent imag es and digital data are archived for permanent storage and are available for subsequent review. ??Study status: Routine. Transthoracic echocardiography. ??M-mode and limited 2D. A Transthoracic Echocardiogram was performed. Scanning w as performed from the parasternal, apical, and subcostal acoustic windows. Images were obtained using an Vizolution 9 cardiac ultrasound machine. Image qualit y was suboptimal. The study was technically limited due to body habitus. 2ml of Intravenous contrast (Definity) was administered by Adeline Romero [facility] t o enhance delineation of left ventricular endocardial borders. Prior t o administration at least two (2) contiguous segments of the left ventricu lar border were not visualized. A total of 1 vial(s) of Definity was used. ??Faustino dy completion: ??The patient tolerated the procedure well. *INDICATIONS AND HISTORY* Indications: ?? Type 2 Diabetes mellitus without complications (E11.9). ??Angina Pectoris, unspecified (I20.9). ??Non-ST elevation (NSTEMI) myocardial infarction (I21.4). *CARDIAC ANATOMY* Left ventricle: ??The cavity size was no rmal. Wall thickness was normal. Systolic function was normal. The estimated eject ion fraction was 60-65%. Wall motion was normal; there were no regional wall jenn on abnormalities. Aortic valve: ?? Trileaflet; normal thic kness leaflets. Mobility was not restricted. Aorta: ??Aortic root: The aortic root wa s normal in size. Mitral valve: ?? Structurally normal tash ve. ?? Mobility was not restricted. Left atrium: ??The atrium was normal in size. Right ventricle: ??The cavity size was n ormal. Wall thickness was normal. Systolic function was normal. Pulmonic valve: ?? Poorly visualized. Tricuspid valve: ?? Structurally normal valve. ?Doppler: ?? There was no evidence for stenosis. Pulmonary artery: ?? Poorly visualized. ??Systolic pressure could not be accurately estimated. Right atrium: ??The atrium was normal in size. Pericardium: ??There was no pericardial effusion. Systemic veins: Inferior vena cava: Poorly visualized. Measurements Left ventricle ?Value LV end-diastolic volume ? 87 ?ml LV ejection fraction, 1-p A2C ? 60 ?% LV end-systolic volume, 2-p ? 36 ?ml LV ejection fraction, 2-p ? 58 ?% Legend: (L) ??and ??(H) ??vic values outside sp ecified reference range. I have personally reviewed the images an d have reviewed and edited the reported findings. Electronically signed by Cipriano Daniel MD 02/11/2016 11:00 Procedure Note Cipriano Daniel MD - 02/11/2016 *Interpreting Group:* *[facility]* [address] [place] [address] Date of study: 02/11/2016 Transthoracic Echocardiography M-mode and limited 2D *STUDY CONCLUSIONS* Summary: 1. Left ventricle: The cavity size was n ormal. Wall thickness was normal. Systolic function was normal. The estim ated ejection fraction was 60-65%. Wall motion was normal; there were no r egional wall motion abnormalities. 2. Right ventricle: The cavity size was normal. Wall thickness was normal. Systolic function was normal. *PATIENT PRESENTATION* Height: 177.8cm ((70in) ) S/D Pressure: 121 / 64 Weight: 105.2kg ((231.5lb) ) BSA: 2.31m^2 Test start time: 08:39 AM. Test stop time: 09:04 AM. 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 Pertinent imag es and digital data are archived for permanent storage and are available for subsequent review. Study status: Routine. Transthoracic echocardiography. M-mode and limited 2D. A Transthoracic Echocardiogram was performed. Scanning w as performed from the parasternal, apical, and subcostal acoustic windows. Images were obtained using an Vizolution 9 cardiac ultrasound machine. Image qualit y was suboptimal. The study was technically limited due to body habitus. 2ml of Intravenous contrast (Definity) was administered by Adeline Romero [facility] t o enhance delineation of left ventricular endocardial borders. Prior t o administration at least two (2) contiguous segments of the left ventricu lar border were not visualized. A total of 1 vial(s) of Definity was used. Study completion: The patient tolerated the procedure well. *INDICATIONS AND HISTORY* Indications: Type 2 Diabetes mellitus wi thout complications (E11.9). Angina Pectoris, unspecified (I20.9). Non-ST el evation (NSTEMI) myocardial infarction (I21.4). *CARDIAC ANATOMY* Left ventricle: The cavity size was norm al. Wall thickness was normal. Systolic function was normal. The estimated eject ion fraction was 60-65%. Wall motion was normal; there were no regional wall jenn on abnormalities. Aortic valve: Trileaflet; normal thickne ss leaflets. Mobility was not restricted. Aorta: Aortic root: The aortic root was normal in size. Mitral valve: Structurally normal valve. Mobility was not restricted. Left atrium: The atrium was normal in si ze. Right ventricle: The cavity size was nor mal. Wall thickness was normal. Systolic function was normal. Pulmonic valve: Poorly visualized. Tricuspid valve: Structurally normal tash ve. Doppler: There was no evidence for stenosis. Pulmonary artery: Poorly visualized. Sys tolic pressure could not be accurately estimated. Right atrium: The atrium was normal in s ize. Pericardium: There was no pericardial ef fusion. Systemic veins: Inferior vena cava: Poorly visualized. Measurements Left ventricle Value LV end-diastolic volume 87 ml LV ejection fraction, 1-p A2C 60 % LV end-systolic volume, 2-p 36 ml LV ejection fraction, 2-p 58 % Legend: (L) and (H) vic values outside specifie d reference range. I have personally reviewed the images an d have reviewed and edited the reported findings. Electronically signed by Cipriano Daniel MD 02/11/2016 11:00 Performing Organization Address City/[facility]/ZIP Code Phon e Number [facility] (ABNORMAL) TROPONIN I (02/11/2016 7:44 EDT) Pathologist Sig nature Troponin I (ng/mL) 0.475 (H) <0.034 ng/ml [facility] LABORATORY SERVICES Specimen Blood specimen (specimen) - Blood Performing Organization Address City/[facility]/ZIP Code Phon e Number [facility] [address] [place] [address] SERVICES HEPARIN LEVEL - UNFRACTIONATED HEPARIN (02/11/2016 7:44 EDT) Heparin Level-UFH 0.50 IU/mL [facility] Comment: LABORATORY SERVICES Unfractionated heparin therapeutic range = 0.3-0.7 IU/ ml This test is not intended for monitoring direct Xa inhibitors, direct thrombin inhibitors, or fondaparinux. Exogenous ATIII is NOT supplied in this assay. For unexpected or persistently low levels, consider measuring patient's ATIII level. Specimen Blood specimen (specimen) - Blood Performing Organization Address [facility]/ZIP Code Phon e Number [facility] [address] [place] [address] SERVICES (ABNORMAL) GLUCOSE, GLUCOMETER (02/11/2016 6:07 EDT) Glucose, 138 (H) 70 - 100 [facility] Fingerstick mg/dl LABORATORY SERVICES Manager Laboratory ID [id number]: [facility] Test Performed by LABORATORY Nursing Services SERVICES Specimen Blood Performing Organization Address [facility]/ZIP Code Phon e Number [facility] [address] [place] [address] SERVICES HEPARIN LEVEL - UNFRACTIONATED HEPARIN (02/11/2016 5:33 EDT) Heparin Level-UFH 0.56 IU/mL [facility] Comment: LABORATORY SERVICES Unfractionated heparin therapeutic range = 0.3-0.7 IU/ ml This test is not intended for monitoring direct Xa inhibitors, direct thrombin inhibitors, or fondaparinux. Exogenous ATIII is NOT supplied in this assay. For unexpected or persistently low levels, consider measuring patient's ATIII level. Specimen Blood specimen (specimen) - Blood Performing Organization Address [facility] Phon e Number [facility] [address] [place] [phone] SERVICES MAGNESIUM (02/11/2016 5:33 EDT) Pathologist Sig nature Magnesium 2.0 1.7 - 2.8 mg/dl [facility] LABORA TORY SERVICES Specimen Blood specimen (specimen) - Blood Performing Organization Address [facility] Phon e Number [facility] [address] [place] [address] SERVICES CREATININE (02/11/2016 5:33 EDT) Creatinine 0.81 0.66 - 1.25 [facility] mg/dl LABORATORY SERVICES GFR, Calculated 96 >60 [facility] Comment: ml/min/1.73m2 LABORATORY eGFR calculated using CKD-EPI equation for SERVICES non Americans. Multiply eGFR by 1.16 for Americans. Specimen Blood specimen (specimen) - Blood Performing Organization Address [facility]/ZIP [facility] Phon e Number [facility] [address] [place] [address] SERVICES BUN (02/11/2016 5:33 EDT) Pathologist Sig nature BUN 11 10 - 26 mg/dl [facility] LABORATO RY SERVICES Specimen Blood specimen (specimen) - Blood Performing Organization Address City/[facility]/ZIP [facility] Phon e Number [facility] [address] [place] [address] SERVICES ELECTROLYTES (02/11/2016 5:33 EDT) Pathologist Sig nature Sodium 140 136 - 145 mEq/L [facility] LABORA TORY SERVICES Potassium 4.2 3.5 - 5.0 mEq/L [facility] LABORA TORY SERVICES Chloride 99 96 - 110 mEq/L [facility] LABORAT ORY SERVICES CO2 28 24 - 32 mEq/L [facility] LABORATO RY SERVICES Specimen Blood specimen (specimen) - Blood Performing Organization Address City/State/ZIP Code Phon e Number [facility] [address] [place] [address] SERVICES (ABNORMAL) HEMAGRAM (02/11/2016 5:33 EDT) Pathologist Sig nature WBC 10.51 (H) 4.0 - 10.4 K/cmm [facility] LABORATORY SERVICES RBC 5.04 4.36 - 5.78 M/cmm [facility] LAB[facility]ATORY SERVICES Hemoglobin 14.0 13.8 - 17.3 gm/dl [facility] LABORATORY SERVICES HCT 41.5 39.5 - 50.2 % [facility] LABORATORY SERVICES MCV 82 81 - 95 fl [facility] [facility] MCH 27.8 27.6 - 33.0 pg [facility] MCHC 33.7 32.8 - 36.4 gm/dl [facility] RDW-CV 13.1 11.8 - 14.1 % [facility] RDW-SD 39.0 36.5 - 45.9 fl [facility] PLT 269 141 - 377 K/cmm [facility] MPV 10.4 9.5 - 12.7 fl [facility] Specimen Blood specimen (specimen) - Blood Performing Organization Address City/State/ZIP Code Phon e Number [facility] [address] [place] [address] SERVICES LIPID PROFILE (INCLUDES CHOLESTEROL, TRIGLYCERIDES, HDL, LDL) (02/11/2016 5:33 EDT) Cholesterol 137 mg/dl [facility] Comment: LABORATORY Desirable:<200 SERVICES Borderline High:200-239 High:>ah=724 Triglycerides 187 mg/dl [facility] Comment: LABORATORY Normal:<150 SERVICES Borderline High:150-199 High:200-499 Very High:>rm=950 HDL 40 mg/dl [facility] Comment: LABORATORY Low:<40 SERVICES Normal:40-60 Desirable: >60 LDL, Calculated 60 mg/dl [facility] Comment: LABORATORY Optimal:<100 SERVICES Near Optimal:100-129 Borderline High:130-159 High:160-189 Very High:>od=791 Chol/HDL Ratio 3.4 [facility] Fasting? Unknown [facility] Non HDL Cholesterol 97 mg/dl [facility] Comment: LABORATORY Desirable:<130 SERVICES Borderline:130-159 High: 160-189 Very High: >qy=612 Specimen Blood specimen (specimen) - Blood Performing Organization Address [facility] Phon e Number [facility] [address] [place] [address] SERVICES HEPARIN LEVEL - UNFRACTIONATED HEPARIN (02/11/2016 1:39 EDT) Heparin Level-UFH 0.25 IU/mL [facility] Comment: LABORATORY SERVICES Unfractionated heparin therapeutic range = 0.3-0.7 IU/ ml This test is not intended for monitoring direct Xa inhibitors, direct thrombin inhibitors, or fondaparinux. Exogenous ATIII is NOT supplied in this assay. For unexpected or persistently low levels, consider measuring patient's ATIII level. Sample retested, result confirmed Specimen Blood specimen (specimen) - Blood Performing Organization Address [facility] Phon e Number [facility] [address] [place] [address] SERVICES (ABNORMAL) TROPONIN I (02/10/2016 23:41 EDT) Troponin I (ng/mL) 0.743 (H) <0.034 ng/ml [facility] Comment: LABORATORY Moderate hemolysis SERVICES Results may be affected due to hemolysis. Specimen Blood specimen (specimen) - Blood Performing Organization Address [facility]/ZIP [facility] Phon e Number [facility] [address] [place] [address] SERVICES (ABNORMAL) HEMAGRAM (02/10/2016 23:41 EDT) Pathologist Sig nature WBC 10.59 (H) 4.0 - 10.4 K/cmm [facility] SERVICES RBC 5.20 4.36 - 5.78 M/cmm [facility] Hemoglobin 14.8 13.8 - 17.3 gm/dl [facility] HCT 42.2 39.5 - 50.2 % [facility] MCV 81 81 - 95 fl [facility] MCH 28.5 27.6 - 33.0 pg [facility] MCHC 35.1 32.8 - 36.4 gm/dl [facility] RDW-CV 13.1 11.8 - 14.1 % [facility] RDW-SD 38.5 36.5 - 45.9 fl [facility] SERVICES PLT 249 141 - 377 K/cmm [facility] MPV 10.9 9.5 - 12.7 fl [facility] Specimen Blood specimen (specimen) - Blood Performing Organization Address [facility]/ZIP Code Phon e Number [facility] [address] [place] [address] SERVICES PROTIME (02/10/2016 23:41 EDT) Pro Time 12.8 10.1 - 13.0 [facility] secs LABORATORY SERVICES I.N.R. 1.1 0.9 - 1.1 [facility] Comment: Ratio LABORATORY SERVICES Moderate Intensity Coumadin INR = 2.0-3.0 Adjustments in anticoagulant therapy dose should be based upon the INR and NOT the Pro Time. Specimen Blood specimen (specimen) - Blood Performing Organization Address [facility] Phon e Number [facility] [address] [place] [address] SERVICES ELECTROLYTES (02/10/2016 23:41 EDT) Pathologist Sig nature Sodium 139 136 - 145 mEq/L [facility] LABORA TORY SERVICES Potassium 4.2 3.5 - 5.0 mEq/L [facility]ORY SERVICES Chloride 98 96 - 110 mEq/L [facility] LABORAT ORY SERVICES CO2 27 24 - 32 mEq/L [facility] LABORATO RY SERVICES Specimen Blood specimen (specimen) - Blood Performing Organization Address City/[facility]/ZIP [facility] Phon e Number [facility] [address] [place] [address] SERVICES BUN (02/10/2016 23:41 EDT) Pathologist Sig nature BUN 12 10 - 26 mg/dl [facility] LABORATO RY SERVICES Specimen Blood specimen (specimen) - Blood Performing Organization Address City/State/ZIP Code Phon e Number [facility] [address] [place] [address] SERVICES (ABNORMAL) CREATININE (02/10/2016 23:41 EDT) Creatinine 0.65 (L) 0.66 - 1.25 [facility] mg/dl LABORATORY SERVICES GFR, Calculated 105 >60 [facility] Comment: ml/min/1.73m2 LABORATORY eGFR calculated using CKD-EPI equation for SERVICES non Americans. Multiply eGFR by 1.16 for Americans. Specimen Blood specimen (specimen) - Blood Performing Organization Address City/[facility]/ZIP Code Phon e Number [facility] [address] [place] [address] SERVICES MAGNESIUM (02/10/2016 23:41 EDT) Pathologist Sig nature Magnesium 2.0 1.7 - 2.8 mg/dl [facility] LABORA TORY SERVICES Specimen Blood specimen (specimen) - Blood Performing Organization Address City/[facility]/ZIP Code Phon e Number [facility] [address] [place] [address] SERVICES HEMOGLOBIN A1C (02/10/2016 23:41 EDT) Hemoglobin A1C 7.2 % [facility] Comment: LABORATORY Reference Range: SERVICES <5.7% Normal 5.7-6.4% Increased risk for diabetes =>6.5% Diagnostic for diabetes (if confirmed) The A1c goal for non adults in general is <7%. The A1c goal for selected patients may be significantly lower than 7% if this can be achieved without significant hypoglycemia or other adverse effects of treatment. Est Avg Glucose 160 mg/dl [facility] Comment: LABORATORY eAG represents the A1c result expressed S ERVICES as average glucose in mg/dl. Specimen Blood specimen (specimen) - Blood Performing Organization Address City/[facility]/ZIP Code Phon e Number [facility] [address] [place] [phone] SERVICES (ABNORMAL) GLUCOSE, GLUCOMETER (02/10/2016 23:31 EDT) Glucose, 116 (H) 70 - 100 [facility] Fingerstick mg/dl LABORATORY SERVICES Manager Laboratory ID [id number]: [facility] Test Performed by LABORATORY Nursing Services SERVICES Specimen Blood Performing Organization Address City/State/ZIP Code Phon e Number [facility] [address] [place] [address] SERVICES EKG 12-LEAD (02/10/2016 23:28 EDT) Specimen Narrative [facility] EKG - 02/13/2016 9:46 EDT ? [facility] ? Test Date: ?2016-02-10 Pat Name: ? CLAUDIA BATISTA ? Department: ?? ANUSHA Marte ? Room: ? ME506 Gender: ? 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 Requested By: ROBERT BLACKMON Order Number: [id number] ? Reading MD: ?? LYDIA CAMP MD ? Measurements Intervals ?[place] ? Rate: ? 75 ? P: ?-3 IL: ? 215 ?QRS: ?72 QRSD: ? 110 ?T: ?1 QT: ? 376 ? QTc: ?420 ? Interpretive Statements SINUS RHYTHM WITH FIRST DEGREE AV BLOCK POSSIBLE LEFT ATRIAL ENLARGEMENT Compared to ECG 04/12/2010 09:39:39 First degree AV block now present I reviewed the tracing and have either a greed or edited the findings in this report. Electronically Signed On 09:46:29 EDT by LYDIA CAMP MD. 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 Electronically Signed On 09:46:29 EDT by LYDIA CAMP MD. Performing Organization Address City/State/ZIP Code Phon e Number [facility] EKG documented in this encounter Visit Diagnoses Diagnosis NSTEMI (non-ST elevated myocardial infar ction) ([facility]) (HCC) Acute myocardial infarction, subendocard ial infarction, episode of care unspecified documented in this encounter Administered Medications Inactive Administered Medications - up to 3 most recent administrations Medication Order MAR Action Action Date Dose Rate Site amitriptyline (ELAVIL) tablet 20 mg Given 02/11/2016 21:08 EDT 20 mg 20 mg, oral, AT BEDTIME, First dose on Thu02/11/16 at 0030, Until Discontinued Given 02/11/2016 1:10 EDT 20 mg amLODIPine (NORVASC) tablet 10 mg Given 02/12/2016 9:39 EDT 10 mg 10 mg, oral, DAILY, First dose on Thu02/11/16 at 0900, Until Discontinued, Routine Given 02/11/2016 8:05 EDT 10 mg aspirin chewable tablet 81 mg Given 02/12/2016 9:38 EDT 81 mg 81 mg, oral, DAILY, First dose on Thu02/11/16 at 0900, Until Discontinued, Routine Given 02/11/2016 8:04 EDT 81 mg cholecalciferol (Vitamin D3) tablet 1,000 Given 02/12/2016 9 :39 EDT 1,000 Units Units 1,000 Units, oral, DAILY, First dose on Thu02/11/16 at 0900, Until Discontinued Given 02/11/2016 8:04 EDT 1,000 Units clopidogrel (PLAVIX) tablet 75 mg Given 02/12/2016 9:38 EDT 75 mg 75 mg, oral, DAILY, First dose on Thu02/11/16 at 0900, Until Discontinued, Routine Given 02/11/2016 8:04 EDT 75 mg fentaNYL citrate (PF) 50 mcg/mL injectio n Given 02/11/2016 11:58 EDT 50 mcg intravenous, PRN, Starting on Thu02/11/16 at 1054, Until Thu02/11/16 at 1158, Routine Given 02/11/2016 11:25 EDT 50 mcg Given 02/11/2016 10:56 EDT 50 mcg heparin 1,000 unit/mL injection 3,000 Un its Given 02/11/2016 2:22 EDT 3,000 Units 3,000 Units (rounded from 2,982 Units = 35 Units/kg ? 85.2 kg Adjusted weight), intravenous, PRN, Starting on Thu02/10/16 at 2320, Until Thu02/11/16 at 1207, Other, Per Heparin Protocol, Routine heparin 1,000 unit/mL injection Given 02/11/2016 11:46 EDT 2,000 Units intravenous, PRN, Starting on Thu02/11/16 at 1122, Until Thu02/11/16 at 1146, Routine Given 02/11/2016 11:22 EDT 7,000 Units heparin in 1/2 NS 25,000 New Bag 02/10/2016 23:22 EDT 1,200 Units/ hr 12 mL/hr unit/250 mL infusion 1,200 Units/hr (12 mL/hr), intravenous, at 12 mL/hr, CONTINUOUS, Starting on Thu02/10/16 at 2330, Until Thu02/11/16 at 0006, Routine heparin in 1/2 NS 25,000 Rate Change 02/11/2016 2:22 EDT 17 Units/ kg/hr 14.5 mL/hr unit/250 mL infusion 17 Units/kg/hr ? 85.2 kg Adjusted weight (14.484 mL/hr, rounded to 14.5 mL/hr), intravenous, at 14.5 mL/hr, CONTINUOUS, Starting on Thu02/11/16 at 0030, Until Thu02/11/16 at 1743, Routine Rate Change 02/11/2016 1:10 EDT 15 Units/kg/hr 12.8 mL/hr insulin aspart (NOVOLOG FLEXPEN) injecti on Given 02/12/2016 9:36 EDT 4 Units subcutaneous, 3 TIMES DAILY WITH MEALS, First dose (after last modification) on Thu02/11/16 at 1700, Until Discontinued, Routine Given 02/11/2016 17:13 EDT 3 Units lisinopril (PRINIVIL, ZESTRIL) tablet 5 mg Given 02/12/2016 9:38 EDT 5 mg 5 mg, oral, DAILY, First dose on Thu02/11/16 at 0900, Until Discontinued, Routine Given 02/11/2016 8:04 EDT 5 mg metoprolol XL (TOPROL-XL) tablet 150 mg Given 02/12/2016 9:38 EDT 150 mg 150 mg, oral, DAILY, First dose (after last modification) on Thu02/11/16 at 0700, Until Discontinued Given 02/11/2016 6:07 EDT 150 mg midazolam (PF) (VERSED) 1 mg/mL injectio n Given 02/11/2016 11:25 EDT 1 mg intravenous, PRN, Starting on Thu02/11/16 at 1053, Until Thu02/11/16 at 1125, Routine Given 02/11/2016 11:05 EDT 1 mg Given 02/11/2016 10:55 EDT 1 mg pramipexole (MIRAPEX) tablet 0.125 mg Given 02/11/2016 21:08 EDT 0.125 mg 0.125 mg, oral, AT BEDTIME, First dose on Thu02/11/16 at 0030, Until Discontinued, Routine Given 02/11/2016 1:26 EDT 0.125 mg rosuvastatin (CRESTOR) tablet 20 mg Given 02/11/2016 8:05 EDT 20 mg 20 mg, oral, DAILY, First dose on Thu02/11/16 at 0900, Until Discontinued, Routine rosuvastatin (CRESTOR) tablet 40 mg Given 02/12/2016 9:38 EDT 40 mg 40 mg, oral, DAILY, First dose (after last modification) on Thu02/12/16 at 0900, Until Discontinued, Routine sodium chloride 0.9 % flush 3 mL Given 02/12/2016 9:40 EDT 3 mL 3 mL, intravenous, EVERY 8 HOURS, First dose on Thu02/11/16 at 0000, Until Discontinued, Routine Given 02/11/2016 23:08 EDT 3 mL Given 02/11/2016 16:47 EDT 3 mL documented in this encounter Discontinued Medications Medication Sig Discontinue Reason Start Date End Date aspirin chewable 81 Take 81 mg by mouth Patient Stopped 02/10/2016 mg tablet daily. Taking clopidogrel (PLAVIX) Take 1 Tab by mouth daily. 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 First take Prasugrel 10 mg daily for one month. Start Plavix the day after stopping Prasugrel. aspirin chewable 81 Take 1 Tab by mouth 02/12/2016 0 02/12/2016 mg tablet daily. clopidogrel (PLAVIX) Take 1 Tab by mouth 02/12/2016 02/12/2016 75 mg tablet daily. aspirin 325 mg tablet Take 325 mg by mouth 02/12/2016 daily documented as of this encounter Active and Recently Administered Medications Times are shown in EDT. Scheduled Medication Order 02/10/2016 02/11/2016 02/12/2016 amitriptyline (ELAVIL) tablet 20 mg (CANCELED) 0110 (Given - Provider: Ken Patton RN)2107 (Given - Provider: Marci Valiente RN) 20 mg, oral, AT BEDTIME, First dose on Thu02/11/16 at 0030, Until Discontinued amLODIPine (NORVASC) tablet 10 mg (CANCELED) 0805 (Given - Provider: Starr Esteves RN) 0939 (Given - Provider: Cheli nugent RN) 10 mg, oral, DAILY, First dose on Thu at 0900, Until Discontinued, Routine aspirin chewable tablet 81 mg 0804 (Given - Prov ider: Starr Esteves RN) 0938 (Given - Provider: Cheli Kulkarni RN) 81 mg, oral, DAILY, First dose on Thu at 0900, Until Discontinued, Routine cholecalciferol (Vitamin D3) tablet 1,000 Units (CANCELED) 0804 (Given - Provider: Starr Esteves RN) 0939 (Given - Provider: Cheli nugent RN) 1,000 Units, oral, DAILY, First dose on Thu02/11/16 at 0900, Until Discontinued clopidogrel (PLAVIX) tablet 75 mg 0804 (Given - Provider: Starr Esteves RN) 0938 (Given - Provider: Cheli Kulkarni RN) 75 mg, oral, DAILY, First dose on Thu at 0900, Until Discontinued, Routine insulin aspart (NOVOLOG FLEXPEN) injection (CANCELED) 1713 (Given - Provider: Marci Valiente RN) 0936 (Given - Provider: Cheli nugent RN)1216 (Not Given - Provider: Cheli Kulkarni RN - Reason: Order parameters not met) subcutaneous, 3 TIMES DAILY WITH MEALS, First dose on Thu02/11/16 at 1700, Until Discontinued lisinopril (PRINIVIL, ZESTRIL) tablet 5 mg (CANCELED) 0804 (Given - Provider: Starr Esteves RN) 0938 (Given - Provider: Cheli nugent RN) 5 mg, oral, DAILY, First dose on 01/18 at 0900, Until Discontinued, Routine metoprolol XL (TOPROL-XL) tablet 150 mg (CANCELED) 0607 (Given - Provider: Ken Patton RN) 0938 (Given - Provider: Cheli nugent RN) 150 mg, oral, DAILY, First dose on Thu02/11/16 at 0700, Until Di scontinued pramipexole (MIRAPEX) tablet 0.125 mg (CANCELED) 0126 (Given - Provider: Ken Patton RN)2108 (Given - Provider: Marci Valiente RN) 0.125 mg, oral, AT BEDTIME, First dose o n Thu02/11/16 at 0030, Until Discontinued, Routine rosuvastatin (CRESTOR) tablet 20 mg (CANCELED) 0805 (Given - Provider: Starr Esteves RN) 20 mg, oral, DAILY, First dose on Thu at 0900, Until Discontinued, Routine rosuvastatin (CRESTOR) tablet 40 mg (CANCELED) 09 (Given - Provider: Cheli Kulkarni RN) 40 mg, oral, DAILY, First dose on Thu at 0900, Until Discontinued, Routine sodium chloride 0.9 % flush 3 mL (CANCELED) 2325 (Give n - Provider: Ken Patton RN) 0732 (Not Given - Provider: Starr adler RN - Reason: Change in condition)1647 (Given - Provider: Marci Valiente RN)2308 (Given - Provider: Marci Valiente RN) 0940 (Given - Provider: Cheli nugent RN) 3 mL, intravenous, EVERY 8 HOURS, First dose on Thu02/11/16 at 0000, Until Discontinued, Routine Continuous Medication Order 02/10/2016 02/11/2016 02/12/2016 heparin in 1/2 NS 25,000 unit/250 mL infusion (CANCELE D) 2322 (New Bag - Provider: Ken Patton RN) 1,200 Units/hr (12 mL/hr), intravenous, at 12 mL/hr, CONTINUOUS, Starting 02/10/16 at 2330, Until 02/11/16 at 0006, Routine heparin in 1/2 NS 25,000 unit/250 mL infusion (CANCELED) 0110 (Rate Change - Provider: Ken Patton RN)0222 (Rate Change - Provider: Ken Patton RN) 17 Units/kg/hr ? 85.2 kg Adjusted weight (14.484 mL/hr, rounded to 14.5 mL/hr), intravenous, at 14.5 mL/hr, CONTINUOUS, Starting 02/11/16 at 0030, Until Thu02/11/16 at 1743, Routine PRN Medication Order 02/10/2016 02/11/2016 02/12/2016 fentaNYL citrate (PF) 50 mcg/mL injection (COMPLETED) 1054 (Given - Provider: Pete Floyd RN)1056 (Given - Provider: Pete Floyd RN)1125 (Given - Provider: Pete Floyd, JANNY)1158 (Given - Provider: Pete Floyd RN) intravenous, PRN, Starting 02/11/16 a t 1054, Until Thu02/11/16 at 1158, Routine heparin 1,000 unit/mL injection 3,000 Units (CANCELED) 0222 (Given - Provider: Ken Patton RN) 3,000 Units (rounded from 2,982 Units = 35 Units/kg ? 85.2 kg Adjusted weight), intravenous, PRN, Starting 02/10/16 at 2320, Until Thu02/11/16 at 1207, Other, Per Heparin Protocol, Routine heparin 1,000 unit/mL injection (COMPLETED) 1122 (Given - Provider: Pete Floyd RN)1146 (Given - Provider: ePte Floyd, JANNY) intravenous, PRN, Starting 02/11/16 a t 1122, Until 02/11/16 at 1146, Routine midazolam (PF) (VERSED) 1 mg/mL injection (COMPLETED) 1053 (Given - Provider: Pete Floyd, RN)1055 (Given - Provider: Pete Floyd, RN)1105 (Given - Provider: Pete Floyd, RN)1125 (Given - Provider: Pete Floyd, RN) intravenous, PRN, Starting 02/11/16 a t 1053, Until Thu02/11/16 at 1125, Routine documented in this encounter Orders Medications Ordered That Might Not Have Count Last Ord ered Date First Ordered Date Been Administered aspirin tablet 325 mg 1 02/11/2016 atorvastatin (LIPITOR) tablet 80 mg 1 02/11/2016 fentaNYL citrate (PF) 50 mcg/mL injection 2 2015 heparin 1,000 unit/mL injection 1 02/11/2016 lidocaine 20 mg/mL (2 %) injection 1 02/11/2016 metoprolol XL (TOPROL-XL) tablet 150 mg 1 02/11/20 16 midazolam (PF) (VERSED) 1 mg/mL injection 2 2015 nitroGLYCERIN (NITROSTAT) SL tablet 0.4 mg 2 02/1002/10/2016 nitroglycerin 100 mcg/mL syringe 1 02/11/2016 verapamil (ISOPTIN) 2.5 mg/mL injection 1 02/11/20 16 acetaminophen (TYLENOL) tablet 650 mg 1 02/10/2016 aspirin EC tablet 81 mg 1 02/10/2016 bisacodyl (DULCOLAX) suppository 10 mg 1 6 dextrose 50 % solution 12.5 g 1 02/10/2016 docusate sodium (COLACE) capsule 100 mg 1 02/10/20 16 glucagon (human recombinant) injection 1 1 016 mg heparin 1,000 unit/mL injection 6,000 1 02/10/2016 Units insulin aspart (NOVOLOG FLEXPEN) injection 2 02/09 Procedures Count Last Ordered Date First Ordered Date ECG REPORT - SCANNED 4 02/18/2016 02/13/2016 INVASIVE CARDIOLOGY REPORT-SCANNED 1 02/18/2016 Diet Count Last Ordered Date First Ordered Date DISCHARGE DIET 7 02/12/2016 02/11/2016 Nursing Count Last Ordered Date First Ordered Date ACTIVITY INSTRUCTIONS 4 02/12/2016 02/11/2016 BATHING INSTRUCTIONS 3 02/12/2016 02/11/2016 WOUND CARE INSTRUCTIONS 4 02/12/2016 07/25/20 16 AMBULATE PATIENT 1 02/11/2016 NOTIFY PHYSICIAN (SPECIFY) 4 02/11/201602/09 NURSING ORDER: HEPARIN PROTOCOL (CARDIAC 2 016 02/10/2016 INDICATION) PATIENT AT LOW RISK FOR VTE: RISK OF 1 02/11/2016 PHARMACOLOGIC PROPHYLAXIS OUTWEIG HEIGHT AND WEIGHT 1 02/10/2016 MAINTAIN SEQUENTIAL COMPRESSION DEVICE 6 MEASURE WEIGHT 02/10/2016 VTE PHARMACOLOGIC PROPHYLAXIS CURRENTLY 02/10/20 16 ORDERED OR ON ALTERNATIVE THER IV Count Last Ordered Date First Ordered Date IV REQUEST 02/10/2016 Admission Count Last Ordered Date First Ordered Date STATUS: INPATIENT ACUTE ADMISSION 1 02/10/2016 Transfer Count Last Ordered Date First Ordered Date NOTIFY PPS OF DISCHARGE COMPLETE 1 02/12/2016 CHANGE ATTENDING TO: 02/11/2016 UR PATIENT STATUS CHANGE 1 02/11/2016 Discharge Count Last Ordered Date First Ordered Date DISCHARGE PATIENT 1 02/12/2016 Legal Count Last Ordered Date First Ordered Date MISCELLANEOUS DISCHARGE INSTRUCTIONS 9 02/12/2016 02/11/2016 documented in this encounter 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
--- OUTSIDE RECORDS SUMMARY | 2022-02-21 01:12 | XMS_ITS | Encounter Summary ---
:1955 Author Organization [facility] Address [address] [place] [address] Care Team Providers Name Role Phone Gregoria Nicholas MD Primary Care Provider Encounter Details Date Type Department Care Team Description 04/02/2015 Results Only Imaging [facility] Kam Galloway, Cardiology - Jenelle HAYES [address] Jenelle Teixeira [address] [place] [address] [place] [address] (Wo rk) Social History Tobacco Use [...] Visit Gastroenterology and Shaq Phan, Hepatology [address] [facility], [facility] [address] [place] [phone] (Wo rk) documented as of this encounter Procedures Procedure Name Priority Date/Time Associated Comments Diagnosis STRESS ECHOCARDIOGRAM 04/03/2015 10:22 Re sults for this EDT procedure are i n the results section. documented in this encounter Results STRESS ECHOCARDIOGRAM (04/03/2015 10:22 EDT) Specimen Narrative OP CARDIOLOGY - 04/03/2015 12:49 EDT *Interpreting Group:* *[facility]* [address] [place] [address] ?? Date of study: 04/03/2015 ?? Stress Echocardiography Gary protocol 2D, limited spectral Doppler, and color Doppler *STUDY CONCLUSIONS* Impressions: ??Negative for ischemia aft er submaximal exercise. Patient did not achieve target heart rate (82% of MPHR). Summary: 1. Procedure narrative: Treadmill exerci se testing was performed using the Gary ?? protocol. The patient exercised for 8 min 59 sec, to protocol stage 3, to a ?? maximal work rate of 10.2mets. Exerc ise was terminated due to fatigue. 2. Stress: Maximal heart rate during str ess was 131bpm (82% of maximal predicted ?? heart rate). The maximal predicted h eart rate was 160bpm.The target heart ?? rate was not achieved. The heart rat e response to stress was blunted. 3. Baseline: LV size was normal. LV glob al systolic function was normal. The ?? estimated LV ejection fraction was 6 0%. Normal wall motion; no LV regional ?? wall motion abnormalities. 4. Immediate post stress: LV size was re duced appropriately. LV global systolic ?? function was appropriately augmented from baseline. No evidence for new LV ?? regional wall motion abnormalities. 5. Stress ECG conclusions: The stress EC G was consistent with myocardial ?? ischemia. *PATIENT PRESENTATION* Height: ? 176.5cm (69.5in ) S/D Pressure: 144 / 70 Weight: ? 109.1kg (240lb ) BSA: ?2.35m^2 Test start time: ??10:05 AM. Test stop time: ??10:54 AM. ATTENDING ?Broderick Galloway MD ORDERING ? Broderick Galloway MD SHALE PLANER OPERATOR HELPER ? Amy Pate JEWEL STRINGER ??Amy Juarez WARDROBE MISTRESS ??Farzana Guzman ?? [facility], Stress *PROCEDURE DATA* Procedure information: ??Dr. Elier Kang supervised and was readily available during the procedure. This study was int erpreted by [facility]. Pertinent imag es and digital data are archived for permanent storage and are available for subsequent review. ??Study status: Routine. Stress echocardiography. ??2D, limited spectral Doppler, and color Doppler. ??Consent: ??The risks, benefit s, and alternatives to the procedure were explained to the patient and consent was verbally obtained. ??Barriers to education: ??No barriers to education id entified. Initial setup. A baseline ECG was recorded. Surface ECG leads and manu al cuff blood pressure measurements were monitored. Treadmill exercise testing wa s performed using the Gary protocol. The patient exercised for 8 min 59 sec, to protocol stage 3, to a maximal work rate of 10.2mets. Exercise was terminate d due to fatigue. A Transthoracic stress echocardiogram was performed. Images wer e captured at baseline and peak exercise. Images were obtained using a enGene IE33 8 cardiac ultrasound machine. Image quality was adequate. The study was technically limited due to body habitus. A 22 gauge IV was inserted by Amy Pate RN. 4ml of Pre-image Intravenous contrast (Definity) was admi nistered by Farzana Guzman [facility] to enhance delineation of left ventricular endocard ial borders. Prior to administration at least two (2) contiguous segments of the left ventricular border were not visualized. A total of 1 vial(s) of Pre imaging Definity was used.4ml of Post image Intravenous contrast (Definity) wa s administered by Amy Pate RN to enhance delineation of left ventricular endocardial borders. Prior to administration at least two (2) contiguo us segments of the left ventricular border were not visualized. A total of 1 vial(s) of Definity was used. A 22 gauge IV was removed by Amy Wright. ??Study completion: ??The patient tolerated the procedure well. There were no complications. *INDICATIONS AND HISTORY* Indications: ?? CAD of [place] vessels 41 4.01 (Pre op). History: ?PMH: ??59yo male here for preop evaluation. No reported CP or dyspnea. Pain free at this time. ??PMH: ?? Myocardial infarction. ??Risk factors: Former tobacco use. Hypertension. Diabet es mellitus. Obese. Dyslipidemia. Medications: ??MIS inhibitors. Aspirin. Beta blockers. Calcium channel blockers. Insulin. Oral diabetic agent. Plavix. St atin therapy. Labs, prior tests, procedures, and surge ry: Stress electrocardiography (2009). ? Normal. Catheterization (remote). ?There was a stenosis which was treated with a stent. Catheterization (2009). ?There was a stenosis in the right coronary artery which was treated with a stent. There wa s a stenosis in the left anterior descending coronary artery which was elvira ated with a stent. *CARDIAC ANATOMY* Stress protocol: + +---+-------- --+ +--------+ Stage ? HR BP (mmHg) ST/T ? Symptoms + +---+-------- --+ +--------+ Baseline supine ? 66 144 /70 ? None ? (95) ? + +---+-------- --+ +--------+ Baseline standing ? 83 142/ 70 ? (94) ? + +---+-------- --+ +--------+ Stage 1; 1.7mph, ? 101 152 /68 ? 10degrees; 3 min ? (9 6) ? + +---+-------- --+ +--------+ Stage 2; 2.5mph, ? 115 162 /66 ? 12degrees; 3 min ? (9 8) ? + +---+-------- --+ +--------+ Stage 3; 3.4mph, ? 131 170 /64 ? Horizontal depression, ? Fatigue 14degrees; 3 min ? (9 9) ? 1.5-2.0 mm in II, III and ? aVF, V3, V4, V5, V6 ? + +---+-------- --+ +--------+ Peak stress ? 131 ? + +---+-------- --+ +--------+ Immediate post stress ? 131 ? + +---+-------- --+ +--------+ Recovery; 1 min ? 109 ? + +---+-------- --+ +--------+ 3 min ? 96 164/60 ? (95) ? + +---+-------- --+ +--------+ Recovery; 6 min ? 81 134 /66 ? (89) ? + +---+-------- --+ +--------+ Recovery; 7 min ? 79 ? Return to baseline ? + +---+-------- --+ +--------+ * Stress results: ?? Maximal heart rate du ring stress was 131bpm (82% of maximal predicted heart rate). The maximal predi cted heart rate was 160bpm.The target heart rate was not achieved. The heart r ate response to stress was blunted. There was a normal resting blood pressur e with an appropriate response to stress. The rate-pressure product for th e peak heart rate and blood pressure was 70514yb Hg/min. ??The patient experience d no chest pain during stress. Functional capacity was average. Stress ECG: ?? The stress ECG was consis tent with myocardial ischemia. Baseline: - LV size was normal. - LV global systolic function was normal . The estimated LV ejection fraction ??was 60%. - Normal wall motion; no LV regional wal l motion abnormalities. Wall motion score: 1.00. Immediate post stress: - LV size was reduced appropriately. - LV global systolic function was approp riately augmented from baseline. - No evidence for new LV regional wall m otion abnormalities. I have personally reviewed the images an d have reviewed and edited the reported findings. Electronically signed by Hardeep Silva MD 04/03/2015 12:49 Procedure Note Hardeep Silva MD - 04/03/2015 *Interpreting Group:* *[facility]* [address] [place] [address] Date of study: 04/03/2015 Stress Echocardiography Gary protocol 2D, limited spectral Doppler, and color Doppler *STUDY CONCLUSIONS* Impressions: Negative for ischemia after submaximal exercise. Patient did not achieve target heart rate (82% of MPHR). Summary: 1. Procedure narrative: Treadmill exerci se testing was performed using the Gary protocol. The patient exercised for 8 m in 59 sec, to protocol stage 3, to a maximal work rate of 10.2mets. Exercise was terminated due to fatigue. 2. Stress: Maximal heart rate during str ess was 131bpm (82% of maximal predicted heart rate). The maximal predicted hear t rate was 160bpm.The target heart rate was not achieved. The heart rate r esponse to stress was blunted. 3. Baseline: LV size was normal. LV glob al systolic function was normal. The estimated LV ejection fraction was 60%. Normal wall motion; no LV regional wall motion abnormalities. 4. Immediate post stress: LV size was re duced appropriately. LV global systolic function was appropriately augmented fr om baseline. No evidence for new LV regional wall motion abnormalities. 5. Stress ECG conclusions: The stress EC G was consistent with myocardial ischemia. *PATIENT PRESENTATION* Height: 176.5cm (69.5in ) S/D Pressure: 144 / 70 Weight: 109.1kg (240lb ) BSA: 2.35m^2 Test start time: 10:05 AM. Test stop time: 10:54 AM. ATTENDING Broderick Galloway MD ORDERING Brodreick Galloway MD SHALE PLANER OPERATOR HELPER Amy Pate JEWEL STRINGERAmy Long WARDROBE MISTRESS Farzana Guzman PERFORMING [facility], Stress *PROCEDURE DATA* Procedure information: Dr. Elier corcoran pervised and was readily available during the procedure. This study was int erpreted by [facility]. Pertinent imag es and digital data are archived for permanent storage and are available for subsequent review. Study status: Routine. Stress echocardiography. 2D, li mited spectral Doppler, and color Doppler. Consent: The risks, benefits, a nd alternatives to the procedure were explained to the patient and consent was verbally obtained. Barriers to education: No barriers to education iden tified. Initial setup. A baseline ECG was recorded. Surface ECG leads and manu al cuff blood pressure measurements were monitored. Treadmill exercise testing wa s performed using the Gary protocol. The patient exercised for 8 min 59 sec, to protocol stage 3, to a maximal work rate of 10.2mets. Exercise was terminate d due to fatigue. A Transthoracic stress echocardiogram was performed. Images wer e captured at baseline and peak exercise. Images were obtained using a enGene IE33 8 cardiac ultrasound machine. Image quality was adequate. The study was technically limited due to body habitus. A 22 gauge IV was inserted by Amy Pate RN. 4ml of Pre-image Intravenous contrast (Definity) was admi nistered by Farzana Guzman [facility] to enhance delineation of left ventricular endocard ial borders. Prior to administration at least two (2) contiguous segments of the left ventricular border were not visualized. A total of 1 vial(s) of Pre imaging Definity was used.4ml of Post image Intravenous contrast (Definity) wa s administered by Amy Pate RN to enhance delineation of left ventricular endocardial borders. Prior to administration at least two (2) contiguo us segments of the left ventricular border were not visualized. A total of 1 vial(s) of Definity was used. A 22 gauge IV was removed by Amy Ybarra Study completion: The patient tolerated the procedure well. There were no complications. *INDICATIONS AND HISTORY* Indications: CAD of [place] vessels 414.0 1 (Pre op). History: PMH: 59yo male here for preop e valuation. No reported CP or dyspnea. Pain free at this time. PMH: My ocardial infarction. Risk factors: Former tobacco use. Hypertension. Diabet es mellitus. Obese. Dyslipidemia. Medications: MIS inhibitors. Aspirin. Be ta blockers. Calcium channel blockers. Insulin. Oral diabetic agent. Plavix. St atin therapy. Labs, prior tests, procedures, and surge ry: Stress electrocardiography (2009). Jacqueline l. Catheterization (). There was a st enosis which was treated with a stent. Catheterization (2009). There was a sten osis in the right coronary artery which was treated with a stent. There wa s a stenosis in the left anterior descending coronary artery which was elvira ated with a stent. *CARDIAC ANATOMY* Stress protocol: + +---+-------- --+ +--------+ Stage HR BP (mmHg) ST/T Symptoms + +---+-------- --+ +--------+ Baseline supine 66 144/70 None (95) + +---+-------- --+ +--------+ Baseline standing 83 142/70 (94) + +---+-------- --+ +--------+ Stage 1; 1.7mph, 101 152/68 10degrees; 3 min (96) + +---+-------- --+ +--------+ Stage 2; 2.5mph, 115 162/66 12degrees; 3 min (98) + +---+-------- --+ +--------+ Stage 3; 3.4mph, 131 170/64 Horizonta l depression, Fatigue 14degrees; 3 min (99) 1.5-2.0 mm in II, III and aVF, V3, V4, V5, V6 + +---+-------- --+ +--------+ Peak stress 131 + +---+-------- --+ +--------+ Immediate post stress 131 + +---+-------- --+ +--------+ Recovery; 1 min 109 + +---+-------- --+ +--------+ 3 min 96 164/60 (95) + +---+-------- --+ +--------+ Recovery; 6 min 81 134/66 (89) + +---+-------- --+ +--------+ Recovery; 7 min 79 Return to baseli ne + +---+-------- --+ +--------+ * Stress results: Maximal heart rate durin g stress was 131bpm (82% of maximal predicted heart rate). The maximal predi cted heart rate was 160bpm.The target heart rate was not achieved. The heart r ate response to stress was blunted. There was a normal resting blood pressur e with an appropriate response to stress. The rate-pressure product for th e peak heart rate and blood pressure was 40159cl Hg/min. The patient experienced no chest pain during stress. Functional capacity was average. Stress ECG: The stress ECG was consisten t with myocardial ischemia. Baseline: - LV size was normal. - LV global systolic function was normal . The estimated LV ejection fraction was 60%. - Normal wall motion; no LV regional wal l motion abnormalities. Wall motion score: 1.00. Immediate post stress: - LV size was reduced appropriately. - LV global systolic function was approp riately augmented from baseline. - No evidence for new LV regional wall m otion abnormalities. I have personally reviewed the images an d have reviewed and edited the reported findings. Electronically signed by Hardeep Silva MD 04/03/2015 12:49 Performing Organization Address City/State/ZIP Code Phon e Number OP CARDIOLOGY documented in this encounter Visit Diagnoses Not on filedocumented in this encounter Care Teams Plasma Center Technician Relationship Specialty Start Date End Date Gregoria Nicholas MD PCP - General 10/27/12 09/12/18 [address] [place] [address] documented as of this encounter
--- OUTSIDE RECORDS SUMMARY | 2022-02-21 01:12 | XMS_ITS | Encounter Summary ---
:1955 Author Organization [facility] Address [address] [place] [address] Care Team Providers Name Role Phone Gregoria Nicholas MD Primary Care Provider Reason for Visit Reason Comments Cardiac Testing Cardiology (Routine) - Specialty Report Received Specialty Diagnoses / Procedures Referred By Contact Refer red To Contact Diagnoses Coronary atherosclerosis of unspecified type of vessel, [place] or graft Broderick Galloway MD Procedures TREADMILL STRESS ECHO [address] [employer] [address] [place] [phone] Referral ID Status Reason Start Date Expiration Date Visits V isits Requested Authorized [id number] Specialty 03/27/2015 1 1 Report Received Encounter Details Date Type Department Care Team Description 04/03/2015 Procedure visit [facility] Aury Galloway rd, MD [address] [employer] [facility] [address] [place] [phone] Cardiology - [facility] Echo, Stress [address] [facility] [address] [place] [phone] Social History Tobacco Use Types Packs/Day Years [...] as of this encounter Discharge Diagnoses Diagnosis 414.00 CORONARY ATHEROSCLER UNSPEC VESSE L[ICD-9-CM] documented in this encounter Plan of Treatment Upcoming Encounters Date Type Specialty Care Team Description 09/29/2022 Office Visit Gastroenterology and Shaq Phan, Hepatology [address] [facility], [facility] [address] [place] [address] (Wo rk) documented as of this encounter Procedures Procedure Name Priority Date/Time Associated Diagnosis Comme nts STRESS TEST - SCANNED 04/06/2015 12:30 EDT documented in this encounter Visit Diagnoses Not on filedocumented in this encounter Orders Imaging Orders Without Results Count Last Ordered Date First Ordered Date STRESS TEST - SCANNED 1 05/14/2015 documented in this encounter Care Teams Relief Docking Master Relationship Specialty Start Date End Date Gregoria Nicholas MD PCP - General 10/27/12 09/12/18 [address] [place] [phone] documented as of this encounter
--- OUTSIDE RECORDS SUMMARY | 2022-02-21 01:12 | XMS_ITS | Encounter Summary ---
:1955 Author Organization [facility] Address [address] [place] [address] Care Team Providers Name Role Phone Denise Hooker APRN Primary Care Provider Reason for Referral Radiology Services (Routine) - Authorization Not Required Specialty Diagnoses / Procedures Referred By Contact Refer red To Contact Diagnoses Lumbar stenosis with neurogenic claudication Fasciculations Ken Bran MD Procedures MR LUMBAR SPINE WO CONTRAST MR LUMBAR SPINE WO CONTRAST [address] [phone] Referral ID Status Reason Start Expiration Visits Visits Date Date Requested Authorized [id number] Authorization Not 1 1 Required 9 ffice Procedure (Routine) - Authorization Not Required Specialty Diagnoses / Procedures Referred By Contact Refer red To Contact Neurology Diagnoses Fasciculations Polyneuropathy Ken Bran MD Patrick 5 Lab Procedures EMG/NERVE CONDUCTION STUDY 1 [facility] [address] Phone: [phone] Referral ID Status Reason Start Expiration Visits Visits Date Date Requested Authorized [id number] Authorization Not 1 1 Required 9 Reason for Visit Reason Comments New Patient Visit Referral (Routine) - Authorization Not Required Specialty Diagnoses / Procedures Referred By Contact Refer red To Contact Neurology Diagnoses Muscle twitch Denise Hooker, JENNIFER Bran, Ken Grayson MD [address] [place] [address] Paul, Level [address] [place] [address] Phone: Fax: Referral ID Status Reason Start Expiration Visits Visits Date Date Requested Authorized [id number] Authorization Not 1 1 Required Encounter Details Date Type Department Care Team Description 05/19/2019 Office Visit [facility] Ken Bran (Primary Dx); Neurology - Jaime Grayson MD Polyneuropathy; [address] Lumbar stenosis with neuroge axel claudication [address] [place] [address] Paul, [place] [address] Social History Tobacco Use Types [...] Sign Reading Time Taken Comments Blood Pressure 130/72 05/19/2019 1254 EDT Pulse 74 05/19/2019 1254 EDT Temperature - - Respiratory Rate 16 05/19/2019 1254 EDT Oxygen Saturation 97% 05/19/2019 1254 EDT Inhaled Oxygen Concentration - - Weight 108.4 kg (239 lb) 05/19/2019 1254 EDT Height 176.5 cm (5' 9.5) 05/19/2019 1254 EDT Body Mass Index 34.79 05/19/2019 1254 EDT documented in this encounter Functional Status [...] or older) documented as of this encounter Ordered Prescriptions Prescription Sig Dispensed Refills Start Date End Date LORazepam (ATIVAN) 2 mg 2mg 30 minutes prior 1 Tab 0 03/22/2020 tablet to MRI. documented in this encounter Progress Notes Ken Bran MD - 05/19/2019 1300 EDT This office note has been dictated. documented in this encounter Consult Notes Ken Bran MD - 05/19/2019 0000 EDT NEUROMUSCULAR DIVISION [facility] NEUROLOGY NEUROMUSCULAR CONSULTATION - 05/19/2019 Denise Hooker APRN [address] [phone] Dear Nurse Practitioner Morro: Thank you for requesting neuromuscular consultation on your patient, Raul Trujillo for bilateral lower extremity fasciculations. Mr Trujillo is a 63-year-old gentleman who has had 2 to 3 years of intermittent bilateral muscle twitching present primarily in bilateral calf muscles with occasional representation in other muscles. Symptoms are most noticeable at rest. With this symptom, he has not noticed a significant change to lower extremity strength and he has not noticed twitching in other muscles of the upper and lower extremities. Particularly, he is able to get up and down from a low chair without difficulty, bend over and pick something up from the floor without difficulty, go up and down stairs, lift objects overhead and manipulate objects with his hands successfully. He has no associated difficulty with chewing, swallowing, double vision or ptosis. He does have some baseline shortness of breath with exertion, which hasbeen attributed to his previous cardiac history. In addition to the symptoms of muscle twitching, edgardo experience back pain, which is more chronic. He notices that the back pain worsens if he standsfor 15 to 30 minutes or goes for a walk in the [place]e or rides his tractor. During these times when back pain is worse, he often notices stiffening of the muscles of his legs and lower back. If he reststhis seems to improve. He does not have similar symptoms in his neck or upper extremities. He does enjoy mountain biking and has not noticed any change to that activity over the last couple of years. Around the time of the onset of the muscle twitching, he was started on a combination of Zoloft and trazodone for difficulty sleeping and for depression. These medicines are quite effective for depression. Review of Systems: A 10-system review is performed, significant for intermittent constipation and diarrhea, headache. A 10-system review is otherwise negative. Past Medical History: 1. Myocardial infarction. 2. Hypertension. 3. Type 2 diabetes. 4. Depression. Social history: The patient works in [employer]. He is . He enjoys spending time in [place] and has plans to retire in the near future. He is a nonsmoker, does not drink alcohol. Family history: Multiple family members with heart disease or type 2 diabetes. ALLERGIES: IMDUR. MEDICATIONS: 1. Amlodipine. 2. Aspirin. 3. Farxiga. 5. Bydureon. 6. Insulin. 7. Lisinopril. 8. Metformin. 9. Metoprolol. 10. Nitroglycerin p.r.n. 11. Crestor. 12. Sertraline. 13. Trazodone. PHYSICAL EXAM: Blood pressure 130/72, heart rate 74, respiratory rate 16, weight 108 kg. This is a 63-year-old gentleman who is in no acute distress today. Distal pulses palpable bilaterally. Neurological exam: He is alert and oriented x3 with normal cognition, normal fund of knowledge, memory and attention. Language: No aphasia or dysarthria. Cranial nerves: Pupils equal and reactive to light. Extraocular movements are intact without fatigable disconjugacy. Facial strength and sensation are normal and symmetric. Palate raised evenly. Tongueprotrudes midline with normal strength. No evidence of tongue fasciculations or atrophy. Motor exam: Normal tone and bulk of his bilateral upper and lower extremities. Negative pronator drift, normal tapping and orbiting. He does have visible mild fasciculations in bilateral calf muscles not appreciated in any other muscles today. Formal strength testing (left/right): Shoulder abduction 5/5, shoulder external rotation 5/5, elbow flexion/extension 5/5, wrist flexion/extension 5/5, finger spread 5/5, deep finger flexion 5/5. Hip flexion 5/5, hip abduction 5/5, knee flexion/extension 5/5, ankle dorsiflexion 5/5, great toe extension 5/5. Able to rise from a chair without the assistance of his hands. Able to rise on each leg independently on his toes. Able to walk on heels without difficulty. Sensory: Preserved sharp, dull discrimination at distal toes and fingers without evidence of a gradient. Absent vibration at toes, 6 seconds at ankles. Negative Romberg. Reflexes: 2+ bilateral biceps, triceps, brachioradialis, knee jerks, 1+ bilateral ankle jerks. Toes downgoing. Coordination: Tnxsxy-av-nxod is normal. Gait: Normal casual gait, able to walk on heels easily. Reviewed outside records. Laboratory testing 04/01/2019. Mildly elevated glucose 132. CK 276. Vitamin B12 361. CBC with differential normal. Impression: 1. Fasciculations. 2. Back pain, lumbosacral claudication. The patient's neurological examination today reveals mild fasciculations in bilateral calves with otherwise normal neurological exam with well-preserved strength on exam. He does have some mild distal sensory loss, which may be indicative of an early diabetic neuropathy. By history, the patient is desc ribing symptoms that could be consistent with lumbar claudication and he is experiencing the fasciculations in his calf muscles bilaterally, which are innervated by the S1 nerve root, often a site of compression with disease in the lumbosacral spine. The differential for these fasciculations given his neurological examination today is more likely to rest with a benign fasciculation syndrome, lumbosacral stenosis, peripheral neuropathy, and SSRI medications rather than motor neuron disease. In order to further evaluate the patient, I am sending him for an MRI of the lumbosacral spine and having him c ome back for an EMG nerve conduction study. EMG will allow us to evaluate for radiculopathy, neuropathy and motor nerve. For now, I do not recommend any interventions and recommend the patient continuehis regular activities. We will have the MRI done locally and have him come back for an EMG with me when I can go over the results on the day of the study. Thank you for allowing me to participate in the care of your patient. I will plan to see him back inthe EMG lab in the near future. Please do not hesitate to call with any questions or concerns. Sincerely, Kne Bran MD Mobile Ui/Ux Designer of Neurology Neurology Attending Physician ABPN Board Certified, Neurology and Neuromuscular Medicine ABEM Board Certified, EMG - Ken Bran MD an Dictation ID: [id number] cc: Denise Hooker APRN documented in this encounter Plan of Treatment Upcoming Encounters Date Type Specialty Care Team Description 09/29/2022 Office Visit Gastroenterology and Shaq Phan, Hepatology [address] [facility], [address] [place] [phone] (Wo rk) Scheduled Orders Name Type Priority Associated Diagnoses Order S chedule EMG/NERVE CONDUCTION Procedures Routine Fasciculati ons Ordered: 05/19/2019 STUDY Polyneuropathy MR LUMBAR SPINE WO Imaging Routine Lumbar stenosis with O rdered: 05/19/2019 CONTRAST neurogenic claudication Fasciculations documented as of this encounter Visit Diagnoses Diagnosis Fasciculations - Primary Abnormal involuntary movements Polyneuropathy Unspecified hereditary and idiopathic pe ripheral neuropathy Lumbar stenosis with neurogenic claudica tion Spinal stenosis, lumbar region, with laron rogenic claudication documented in this encounter Historical Medications This list may reflect changes made after this encounter. Medication Sig Dispensed Refills Start Date End Date dapagliflozin (FARXIGA) 5 mg Take 5 mg by mouth 0 tablet daily. added in this encounter Care Teams Magazine Publisher Relationship Specialty Start Date End Date Denise Hooker, FUNNEL SETTER PCP - General 09/13/18 [address] [place] [address] documented as of this encounter
--- OUTSIDE RECORDS SUMMARY | 2022-02-21 01:12 | XMS_ITS | Encounter Summary ---
:1955 Author Organization [facility] Address [address] [place] [address] Care Team Providers Name Role Phone Gregoria Nicholas MD Primary Care Provider Reason for Visit Reason Onset Date Comments Results 12/12/2015 Labs of 11/06/15 Encounter Details Date Type Department Care Team Description 12/12/2015 Telephone [facility] Mary Tanner Resul ts (Labs of Cardiology - Jenelle SOLIMAN 11/06/15) [address] [place], [place] [address] Social History Tobacco Use Types Packs/Day [...] encounter Miscellaneous Notes Telephone Encounter - Mary Tanner RN - 12/12/2015 1512 EDT Called patient to f/u re: Labs of 11/06/15 - Hemagram. He had not been updated. Advised result was all normal. He was pleased with the news. Questioned how he has been? He reports he's been feeling very good. He's had changes in meds for Diabetes and started exercising. With all of this he's noticed a big difference. Will update Dr. Sheets. Mray Tanner RN documented in this encounter Plan of Treatment Upcoming Encounters Date Type Specialty Care Team Description 09/29/2022 Office Visit Gastroenterology and Shaq Phan, Hepatology [address] [facility], [facility] [address] [place] [address] (Wo rk) documented as of this encounter Visit Diagnoses Not on filedocumented in this encounter Care Teams Electronic Assembly Relationship Specialty Start Date End Date Gregoria Nicholas MD PCP - General 10/27/12 09/12/18 [address] [place] [phone] documented as of this encounter
--- OUTSIDE RECORDS SUMMARY | 2022-02-21 01:12 | XMS_ITS | Encounter Summary ---
:1955 Author Organization [facility] Address [address] [place] [address] Care Team Providers Name Role Phone Gregoria Nicholas MD Primary Care Provider Encounter Details Date Type Department Care Team Description 08/11/2016 Phlebotomy Only [facility] - Water Resources Project Manager, [facility] Outpatient [address] [place] [address] Social History Tobacco Use Types Packs/Day Years [...] a physical, mental, or emotional condition, No 03/11/2016 does this person have difficulty doing errands alone such as visiting a doctor's office or shopping? Cognitive Status Response Date of Assessment Because of a physical, mental, or emotional condition, Yes 03/11/2016 does this person have serious difficulty concentrating, remembering, or making decisions? documented as of this encounter Plan of Treatment Upcoming Encounters Date Type Specialty Care Team Description 09/29/2022 Office Visit Gastroenterology and Shaq Phan, Hepatology [address] [facility], [facility] [address] [place] [address] (Wo rk) documented as of this encounter Visit Diagnoses Not on filedocumented in this encounter Care Teams Real Estate Branch Manager Relationship Specialty Start Date End Date Gregoria Nicholas MD PCP - General 10/27/12 09/12/18 [address] [place] [address] documented as of this encounter
--- OUTSIDE RECORDS SUMMARY | 2022-02-21 01:12 | XMS_ITS | Encounter Summary ---
:1955 Author Organization [facility] Address [address] [place] [address] Care Team Providers Name Role Phone Gregoria Nicholas MD Primary Care Provider Encounter Details Date Type Department Care Team Description 05/11/2015 Hospital Encounter [facility]- Willa Unknown, Provider, [facility] [address] [facility] [phone] [place] [address] (Work) [phone] Social History Tobacco Use Types Packs/Day Years [...] making decisions? documented as of this encounter Medications at [...] interrupt thi s medication withour discussing with trumpet teacher Start this medication in one month. First [...] Code Departure Means Destination Home or Self Nursing Home documented in this encounter Plan of Treatment Upcoming Encounters Date Type Specialty Care Team Description 09/29/2022 Office Visit Gastroenterology and Shaq Phan, Hepatology [address] [facility], [facility] [address] [place] [address] (Wo rk) documented as of this encounter Procedures Procedure Name Priority Date/Time Associated Comments Diagnosis TREADMILL STRESS ECHO 09/03/2015 15:03 Re sults for this WAVEFORM EST procedure are i n the results section. STRESS ECHOCARDIOGRAM 09/03/2015 14:43 Re sults for this EST procedure are i n the results section. documented in this encounter Results TREADMILL STRESS ECHO WAVEFORM (09/03/2015 15:03 EST) Specimen Narrative [facility] EKG - 09/03/2015 15:3 3 EST For report of this Waveform, see associated Image Study. ? [facility] Stress ? Test Date: ?2015-09-03 Pat Name: ? CLAUDIA BATISTA ? Department: ? Room: ? Gender: ? M ?Administrative Nursing Supervisor: ?? : ?1955 ? Requested By: JAYDEN HAYES [facility] Number: [id number] ?Messi HAYES: ? Interpretive Statements Procedure Note CUSTOMER SOLUTIONS COORDINATOR, IMAGING - 09/03/2015 For report of this Waveform, see jose alvarez Image Study. [facility] Date: 2015-09-03 Pat Name: CLAUDIA ROBERSONANNE Department: Room: Gender: M Administrative Nursing Supervisor: : 1955 Requested By: JAYDEN GROVER Order Number: [id number] Messi HAYES: Interpretive Statements Performing Organization Address City/State/ZIP Code Phon e Number [facility] EKG STRESS ECHOCARDIOGRAM (09/03/2015 14:43 EST) Specimen Narrative [facility] CARDIOLOGY TILA SORIA S - 09/03/2015 16:42 EST *Interpreting Group:* *[facility]* [address] [place] [address] ?? Date of study: 09/03/2015 ?? Stress Echocardiography Gary protocol 2D, limited spectral Doppler, and color Doppler *STUDY CONCLUSIONS* Impressions: ?? Negative for ischemia af ter maximal exercise with reproduction of symptoms. Summary: 1. Baseline: LV size was normal. LV glob al systolic function was normal. Normal ?? wall motion; no LV regional wall mot ion abnormalities. 2. Procedure narrative: Treadmill exerci se testing was performed using the Gary ?? protocol. The patient exercised for 9 min 1 sec, to protocol stage 3, to a ?? maximal work rate of 10.2mets. Exerc ise was terminated due to moderate ?? dyspnea and moderate fatigue. 3. Stress: Maximal heart rate during str ess was 145bpm (91% of maximal predicted ?? heart rate). The maximal predicted h eart rate was 160bpm.The target heart ?? rate was achieved. The heart rate re sponse to stress was normal. 4. Peak stress: LV size was reduced appr opriately. LV global systolic function ?? was appropriately augmented from bas ehsan. Normal wall motion; no LV regional ?? wall motion abnormalities. 5. Stress ECG conclusions: There were no stress arrhythmias or conduction ?? abnormalities. The stress ECG was ne gative for ischemia. 6. Staged echo: There was no echocardiog raphic evidence for stress-induced ?? ischemia. *PATIENT PRESENTATION* Height: ? 177.8cm (70in ) S/D Pressure: 168 / 70 Weight: ? 111.8kg (246lb ) BSA: ?2.39m^2 Test start time: ??02:22 PM. Test stop time: ??03:30 PM. REFERRING ?Gregoria Nicholas* ADMITTING ?Joaquín Carpenter ATTENDING ?Joaquín Carpenter ORDERING ? Joaquín Carpenter REFERRING ?Joaquín Carpenter WHITE LEAD GRINDER ??Ken Haque [facility] TEMPERATURE LOGGING OPERATOR ? Leyda Castaneda FELLOW ? Trevor Tovar PERFORMING ?? [facility], Stress BARREL RIBS SOLDERER ??Regina Bajwa *PROCEDURE DATA* Procedure information: ??Dr. Cipriano manrique supervised and was readily available during the procedure. This study was int erpreted by [facility]. Pertinent [...] the Gary protocol. The patient exercised for 9 min 1 sec, t o protocol stage 3, to a maximal work rate of 10.2mets. Exercise was terminate d due to moderate dyspnea and moderate fatigue. A Transthoracic stress echocard iogram was performed. Images were captured at baseline and peak exercise. Images were obtained using a Renee IE33 4 cardiac ultrasound machine. ECG t racings were obtained using the [employer]-scribe 4 machine. A 22 gauge IV was inserted by Leyda Castaneda RN. 3.5ml of Pre-image Intravenous contrast (Definity) was admi nistered by Ken MIRANDA, HARSHAL to enhance delineation of left ventricular endocardial borders. Prior to administration at least two (2) contiguo us segments of the left ventricular border were not visualized. A total of 1 vial(s) of Pre imaging Definity was used.3.5ml of Post image Intravenous con trast (Definity) was administered by Leyda Castaneda RN to enhance delineation of left ventricular endocardial borders. Prior to administration at leas t two (2) contiguous segments of the left ventricular border were not visuali zed. A 22 gauge IV was removed by Leyda Castaneda RN. ??Study completion: ??The p atient tolerated the procedure well. There were no complications. *INDICATIONS AND HISTORY* Indications: ?? Chest Pain, Unspecified R07.9. History: ?PMH: ??59 year old male wi th CAD s/p stents to the LAD and RCA in 2009 and . Presents for follow up of Pradeep MILIAN. 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 Relieved with two Nitro. and rest. Pain free at this time. ??Risk factors: ??Family history of coronary artery disease. Hypertension. Diabetes mellitus . Dyslipidemia. ??Medications: ??MIS inhibitors. Aspirin. Beta blockers. Calc ium channel blockers. Insulin. Lipid-lowering therapy. Oral diabetic ag ent. Plavix. *CARDIAC ANATOMY* Baseline ECG: ??Normal. Stress protocol: + +---+ +---- +------+ + Stage ? HR BP (mmHg) ? ? ST/T ? Rhythm Symptoms ? + +---+ +---- +------+ + Baseline supine ?? 101 168/70 (103) Nor pili ST-T ? NSR ?? None ? + +---+ +---- +------+ + Baseline standing 102 164/62 (96) ? + +---+ +---- +------+ + Stage 1; 1.7mph, 119 170/66 (101) ? 10degrees; 3 min ? + +---+ +---- +------+ + Stage 2; 2.5mph, 135 174/60 (98) ? 12degrees; 3 min ? + +---+ +---- +------+ + Stage 3; 3.4mph, 145 194/54 (101) Kelly correiatal ? Throat discomfort, 14degrees; 3 min ? depression, 0.5 ? moderate dyspnea, ? -1.0 mm V5 and ? moderate fatigue, ? V6, V3, V4 ? Pain level is 1 ? out of 10. ? + +---+ +---- +------+ + Immediate post ?? 127 ? Horizontal ? stress ? depression, ? 0.5-1.0 mm in V5 ? and V6, V3, V4 ? + +---+ +---- +------+ + Recovery; 1 min ?? 119 ? None ? + +---+ +---- +------+ + Recovery; 3 min ?? 103 174/64 (101) ? + +---+ +---- +------+ + Recovery; 6 min ?? 93 164/62 (96) ? + +---+ +---- +------+ + Recovery; 9 min ?? 94 ? Return to ? baseline ? + +---+ +---- +------+ + * Stress results: ?? Maximal heart rate du ring stress was 145bpm (91% of maximal predicted heart rate). The maximal predi cted heart rate was 160bpm.The target heart rate was achieved. The heart rate response to stress was normal. There was a normal resting blood pressure with an appropriate response to stress. The rate-pressure product for the peak heart rate and blood pressure was 54925hn Hg/min. The patient experienced no chest pain during stress (throat discomfort towards end of study). Functional capaci ty was average. Stress ECG: ??There were no stress arrhy thmias or conduction abnormalities. The stress ECG was negative for ischemia. Baseline: - LV size was normal. - LV global systolic function was normal . - Normal wall motion; no LV regional wal l motion abnormalities. - Doppler (spectral and color flow) inte rrogation performed but pulmonary artery ??pressure could not be accurately dete rmined. Wall motion score: 1.00. Peak stress: - LV size was reduced appropriately. - LV global systolic function was approp riately augmented from baseline. - Normal wall motion; no LV regional wal l motion abnormalities. - Pulmonary systolic pressure obtained v ia spectral and color flow Doppler was ??in the range of 20mm Hg Wall motion score: 1.00. Stress echo results: ? There was no echocardiographic evidence for stress-induced ischemia. I have personally reviewed the images an d have reviewed and edited the reported findings. Electronically signed by Cipriano Daniel MD 09/03/2015 16:42 Procedure Note Cipriano Daniel MD - 09/03/2015 *Interpreting Group:* *[facility]* [address] [place] [address] Date of study: 09/03/2015 Stress Echocardiography Gary protocol 2D, limited spectral Doppler, and color Doppler *STUDY CONCLUSIONS* Impressions: Negative for ischemia after maximal exercise with reproduction of symptoms. Summary: 1. Baseline: LV size was normal. LV glob al systolic function was normal. Normal wall motion; no LV regional wall motion abnormalities. 2. Procedure narrative: Treadmill exerci se testing was performed using the Gary protocol. The patient exercised for 9 m in 1 sec, to protocol stage 3, to a maximal work rate of 10.2mets. Exercise was terminated due to moderate dyspnea and moderate fatigue. 3. Stress: Maximal heart rate during str ess was 145bpm (91% of maximal predicted heart rate). The maximal predicted hear t rate was 160bpm.The target heart rate was achieved. The heart rate respo nse to stress was normal. 4. Peak stress: LV size was reduced appr opriately. LV global systolic function was appropriately augmented from baseli ne. Normal wall motion; no LV regional wall motion abnormalities. 5. Stress ECG conclusions: There were no stress arrhythmias or conduction abnormalities. The stress ECG was negat roosevelt for ischemia. 6. Staged echo: There was no echocardiog raphic evidence for stress-induced ischemia. *PATIENT PRESENTATION* Height: 177.8cm (70in ) S/D Pressure: 168 / 70 Weight: 111.8kg (246lb ) BSA: 2.39m^2 Test start time: 02:22 PM. Test stop time: 03:30 PM. REFERRING Gregoria Nicholas* ADMITTING Jayden, Joaquín ATTENDING Jayden, Joaquín ORDERING Jayden, Joaquín REFERRING Jayden, Joaquín WHITE LEAD GRINDER Ken Haque, [facility] TEMPERATURE LOGGING OPERATOR Leyda Castaneda Preeth PERFORMING [facility], Stress BARREL RIBS SOLDERER Regina Bajwa *PROCEDURE DATA* Procedure information: Dr. Cipriano Daniel supervised and was readily available during the procedure. This study was int erpreted by [facility]. Pertinent [...] the Gary protocol. The patient exercised for 9 min 1 sec, t o protocol stage 3, to a maximal work rate of 10.2mets. Exercise was terminate d due to moderate dyspnea and moderate fatigue. A Transthoracic stress echocard iogram was performed. Images were captured at baseline and peak exercise. Images were obtained using a Renee IE33 4 cardiac ultrasound machine. ECG t racings were obtained using the [employer] 4 machine. A 22 gauge IV was inserted by Leyda Castaneda RN. 3.5ml of Pre-image Intravenous contrast (Definity) was admi nistered by Ken Haque CVT, [facility] to enhance delineation of left ventricular endocardial borders. Prior to administration at least two (2) contiguo us segments of the left ventricular border were not visualized. A total of 1 vial(s) of Pre imaging Definity was used.3.5ml of Post image Intravenous con trast (Definity) was administered by Leyda Castaneda RN to enhance delineation of left ventricular endocardial borders. Prior to administration at leas t two (2) contiguous segments of the left ventricular border were not visuali zed. A 22 gauge IV was removed by Leyda Castaneda RN. Study completion: The patie nt tolerated the procedure well. There were no complications. *INDICATIONS AND HISTORY* Indications: Chest Pain, Unspecified R07 .9. History: PMH: 59 year old male with CAD s/p stents to the LAD and RCA in 2009 and . Presents for follow up of Pradeep MILIAN. 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 Relieved with two Nitro. and rest. Pain free at this time. Risk factors: Rebeca johnson history of coronary artery disease. Hypertension. Diabetes mellitus . Dyslipidemia. Medications: MIS inhibitors. Aspirin. Beta blockers. Calc ium channel blockers. Insulin. Lipid-lowering therapy. Oral diabetic ag ent. Plavix. *CARDIAC ANATOMY* Baseline ECG: Normal. Stress protocol: + +---+ +---- +------+ + Stage HR BP (mmHg) ST/T Rhythm Symp toms + +---+ +---- +------+ + Baseline supine 101 168/70 (103) Jacqueline l ST-T NSR None + +---+ +---- +------+ + Baseline standing 102 164/62 (96) + +---+ +---- +------+ + Stage 1; 1.7mph, 119 170/66 (101) 10degrees; 3 min + +---+ +---- +------+ + Stage 2; 2.5mph, 135 174/60 (98) 12degrees; 3 min + +---+ +---- +------+ + Stage 3; 3.4mph, 145 194/54 (101) Hori zontal Throat discomfort, 14degrees; 3 min depression, 0.5 moderate dyspnea, -1.0 mm V5 and moderate fatigu e, V6, V3, V4 Pain level is 1 out of 10. + +---+ +---- +------+ + Immediate post 127 Horizontal stress depression, 0.5-1.0 mm in V5 and V6, V3, V4 + +---+ +---- +------+ + Recovery; 1 min 119 None + +---+ +---- +------+ + Recovery; 3 min 103 174/64 (101) + +---+ +---- +------+ + Recovery; 6 min 93 164/62 (96) + +---+ +---- +------+ + Recovery; 9 min 94 Return to baseline + +---+ +---- +------+ + * Stress results: Maximal heart rate durin g stress was 145bpm (91% of maximal predicted heart rate). The maximal predi cted heart rate was 160bpm.The target heart rate was achieved. The heart rate response to stress was normal. There was a normal resting blood pressure with an appropriate response to stress. The rate-pressure product for the peak heart rate and blood pressure was 56577ov Hg/min. The patient experienced no chest pain during stress (throat discomfort towards end of study). Functional capaci ty was average. Stress ECG: There were no stress arrhyth mias or conduction abnormalities. The stress ECG was negative for ischemia. Baseline: - LV size was normal. - LV global systolic function was normal . - Normal wall motion; no LV regional wal l motion abnormalities. - Doppler (spectral and color flow) inte rrogation performed but pulmonary artery pressure could not be accurately determ ined. Wall motion score: 1.00. Peak stress: - LV size was reduced appropriately. - LV global systolic function was approp riately augmented from baseline. - Normal wall motion; no LV regional wal l motion abnormalities. - Pulmonary systolic pressure obtained v ia spectral and color flow Doppler was in the range of 20mm Hg Wall motion score: 1.00. Stress echo results: There was no echoca rdiographic evidence for stress-induced ischemia. I have personally reviewed the images an d have reviewed and edited the reported findings. Electronically signed by Cipriano Daniel MD 09/03/2015 16:42 Performing Organization Address City/State/ZIP Code Phon e Number [facility] documented in this encounter Visit Diagnoses Not on filedocumented in this encounter Care Teams Motor And Generator Assembler Relationship Specialty Start Date End Date Gregoria Nicholas MD PCP - General 10/27/12 09/12/18 [address] [place] [address] documented as of this encounter
--- OUTSIDE RECORDS SUMMARY | 2022-02-21 01:12 | XMS_ITS | Encounter Summary ---
:1955 Author Organization [facility] Address [address] [place] [address] Care Team Providers Name Role Phone Gregoria Nicholas MD Primary Care Provider Reason for Visit Reason Comments Coronary Artery Disease Encounter Details Date Type Department Care Team Description 11/02/2014 Office Visit [facility] Broderick Galloway atherosclerosis Cardiology - Jenelle Ansari MD of unspecified type of [address] vessel, [employer] or graft [place], [place] [address] (Primary Dx) [address] [place] [address] [place] [address] Social History Tobacco Use Types [...] Sign Reading Time Taken Comments Blood Pressure 122/64 11/02/2014 0856 EDT Pulse 64 11/02/2014 0856 EDT Temperature - - Respiratory Rate - - Oxygen Saturation - - Inhaled Oxygen Concentration - - Weight 110.2 kg (243 lb) 11/02/2014 0856 EDT Height 177.8 cm (5' 10) 11/02/2014 0856 EDT Body Mass Index 34.87 11/02/2014 0856 EDT documented in this encounter Functional Status Cognitive Status Response Date of Assessment Because of a physical, mental, or emotional condition, do Ye s 09/09/2009 you have serious difficulty concentrating, remembering, or making decisions? (5 years old or older) documented as of this encounter Discharge Diagnoses Diagnosis 414.00 CORONARY ATHEROSCLER UNSPEC VESSE L[ICD-9-CM] documented in this encounter Progress Notes Broderick Galloway MD - 11/02/201449 EDT [facility] CARDIOLOGY PROGRESS / FOLLOWUP NOTE - 11/02/2014 Gregoria Nicholas MD [facility] [address] [place] [address] Dear Gregoria: I am writing in regards to Raul Trujillo. I saw him today in followup. From a cardiac standpoint, he is doing very well with an excellent functional capacity. His lipids demonstrate excellent control. His electrolytes are within normal limits with a normal BUN and creatinine. His blood pressure today was 122/64, heart rate 64 and regular. His lungs were clear. Cardiac exam unremarkable. I note that Raul had been advised to discontinue his lisinopril. His blood pressure is certainly under excellent control. I do think that he would benefit from staying on the MIS inhibitor given the proven track record of MIS inhibitors preventing recurrent cardiac events. The impact of MIS inhibitors is comparable to statins in people with known coronary disease. If it is felt that his blood pressure was too low, then I would think about weaning down on his amlodipine or even his beta rohini. If I could be of further assistance, please do not hesitate to contact me. Sincerely, Broderick Galloway MD 09 05 AM - Broderick Galloway MD cn Dictation ID: [id number] cc: Gregoria Nicholas MD, [facility] [address], [place] [address] Broderick Longoria MD - 11/02/2014 0902 EDT Subjective: Patient is a 58 y.o. male who presents for follow-up of cad. Patient reports heart pounding w/ splitting wood. He denies chest pain on exertion and dyspnea on exertion. He describes his symptoms as notchanged. He has been compliant with his medications. Medications side effects include none Past Medical History Diagnosis Date ??? MD (myocardial infarction) 1992, 2003 ??? CAD (coronary [...] or interrupt this medication withour discussing with outside solar sales consultant Start this medication in one month. First take Prasugrel 10 mg daily for one month. Start Plavix theday after stopping Prasugrel. 30 Tab 11 ??? insulin glargine (LANTUS) 100 unit/mL injection Inject 75 Units into the skin at bedtime . ??? lisinopril (PRINIVIL, ZESTRIL) 5 mg tablet [...] above, all others are negative. Objective: BP 122/64 Pulse 64 Ht 177.8 cm (70) Wt 110.224 kg (243 lb) BMI 34.87 kg/m2 Body mass index is 34.87 kg/(m^2). Physical Exam: General: Alert, cooperative, no [...] 09/08/2009 HDL 52 09/08/2009 LDLBASE 110 09/08/2009 LDL 87 HDL 40 from 09/2014 Assessment: Raul Trujillo is a 58 y.o. year old male who presents with cad stable w/ excellent functional status Plan: Cont present rx documented in this encounter Plan of Treatment Upcoming Encounters Date Type Specialty Care Team Description 09/29/2022 Office Visit Gastroenterology and Shaq Phan, Hepatology [address] [facility] [place] [address] (Wo rk) documented as of this encounter Visit Diagnoses Diagnosis Coronary atherosclerosis of unspecified type of vessel, [employer] or graft - Primary documented in this encounter Historical Medications This list may reflect changes made after this encounter. Medication Sig Dispensed Refills Start Date End Date aspirin 325 mg tablet Take 325 mg by mouth 0 02/12/2016 daily added in this encounter Care Teams Control Director Relationship Specialty Start Date End Date Gregoria Nicholas MD PCP - General 10/27/12 09/12/18 [address] [place] [address] documented as of this encounter
--- OUTSIDE RECORDS SUMMARY | 2022-02-21 01:12 | XMS_ITS | Encounter Summary ---
:1955 Author Organization [facility] Address [address] [place] [address] Care Team Providers Name Role Phone Gregoria Nicholas MD Primary Care Provider Reason for Visit Reason Comments Coronary Artery Disease 1 YR - no cardiac complaints Encounter Details Date Type Department Care Team Description 09/10/2017 Office Visit [facility] Broderick Galloway Athero sclerosis of [place] Cardiology - Jenelle Ansari MD coronary artery of [place] [address] heart without angina [place], [place] [address] pectoris (Primary Dx) [address] [place] [address] [place] [phone] Social History Tobacco Use Types Packs/Day Years [...] Sign Reading Time Taken Comments Blood Pressure 116/68 09/10/2017 1019 EST Pulse 75 09/10/2017 1019 EST Temperature - - Respiratory Rate - - Oxygen Saturation 98% 09/10/2017 1019 EST Inhaled Oxygen Concentration - - Weight 106.6 kg (235 lb) 09/10/2017 1019 EST Height 175.3 cm (5' 9) 09/10/2017 1019 EST Body Mass Index 34.7 09/10/2017 1019 EST documented in this encounter Functional Status [...] encounter Progress Notes Broderick Galloway MD - 09/10/2017 1031 EST Subjective: Patient is a 61 y.o. male who presents for follow-up of CAd. Patient reports stress from impending divorce. He denies chest pain on exertion and dyspnea on exertion. He describes his symptoms as not changed. He has been compliant with his medications. Medications side effects include none Past Medical History: Diagnosis Date ??? CAD (coronary artery disease) 09-10-09 PCI LAD prox MARY, LAD mid MARY, LAD distal BMS; 09-07-09 PCI MARY X 3 RCA; 2004 stents X2 ??? Diabetes mellitus ([facility]) oral agents ??? Diverticulitis ??? Hyperlipidemia ??? Hypertension ??? MO (myocardial infarction) 1992, 2004 ??? Recurrent infections rt foot 5th toe Patient Active Problem List Diagnosis Date Noted ??? NSTEMI (non-ST elevated myocardial infarction) ([facility]) 02/10/2016 Priority: Medium ??? Coronary atherosclerosis 09/07/2009 ??? Hyperlipidemia with target LDL less than 70 09/07/2009 ??? Hypertensive disorder 09/07/2009 ??? Diabetes mellitus ([facility]) 09/07/2009 Current Outpatient Prescriptions Medication Sig Dispense [...] insulin glargine (LANTUS) 100 unit/mL injection Inject 30-35 Units into the skin 2 times daily. 35 units in the AM and 30 units in PM ??? liraglutide (VICTOZA) 0.6 mg/0.1 mL (18 [...] above, all others are negative. Objective: BP 116/68 Pulse 75 Ht 175.3 cm (69) Wt (!) 106.6 kg (235 lb) SpO2 98% BMI 34.7 kg/m2 Body mass index is 34.7 kg/(m^2). Physical Exam: General: Alert, cooperative, no [...] 40 02/11/2016 LDLBASE 60 02/11/2016 Assessment: Raul Turjillo is a 61 y.o. year old male who presents with cad stable Plan: D/c plavix documented in this encounter Plan of Treatment Upcoming Encounters Date Type Specialty Care Team Description 09/29/2022 Office Visit Gastroenterology and Shaq Phan Hepatology [address] [facility], [facility] [address] [place] [address] (Wo rk) documented as of this encounter Visit Diagnoses Diagnosis Atherosclerosis of [place] coronary arter [place] of [place] heart without angina pectoris - Primary documented in this encounter Discontinued Medications Medication Sig Discontinue Reason Start Date End Date clopidogrel (PLAVIX) 75 Take 1 Tab by mouth 02/12/2016 09/10/2017 mg tablet daily. documented as of this encounter Historical Medications This list may reflect changes made after this encounter. Medication Sig Dispensed Refills Start Date End Date sertraline (ZOLOFT) 50 mg Take 50 mg by mouth 0 tablet daily. added in this encounter Care Teams Ice Plant Operator Relationship Specialty Start Date End Date Gregoria Nicholas MD PCP - General 10/27/12 09/12/18 [address] [place] [address] documented as of this encounter
--- OUTSIDE RECORDS SUMMARY | 2022-02-21 01:12 | XMS_ITS | Encounter Summary ---
:1955 Author Organization [facility] Address [address] [place] [address] Care Team Providers Name Role Phone Gregoria Nicholas MD Primary Care Provider Reason for Visit Reason Onset Date Comments Returning Call 02/29/2016 Sina's call Encounter Details Date Type Department Care Team Description 02/29/2016 Telephone [facility] Broderick Galloway, Ret urning Call Cardiology - Jenelle HAYES (Sina's call) [address] [place] [address] [place] [phone] Social History Tobacco Use Types Packs/Day Years [...] this encounter Miscellaneous Notes Telephone Encounter - Sina Alvarez - 02/29/2016 1521 EDT Patient scheduled to see Dr. Goyo Galloway on 03/11 at 9:00 elephone Encounter - Nadine Wing - 02/29/2016 1514 EDT Reason for Call: Returning Call (Sina's call) Summary/Symptoms: Returning Sina's call. 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
--- OUTSIDE RECORDS SUMMARY | 2022-02-21 01:12 | XMS_ITS | Encounter Summary ---
:1955 Author Organization [facility] Address [address] [place] [address] Care Team Providers Name Role Phone Denise Hooker APRN Primary Care Provider [phone] Reason for Visit Reason Onset Date Comments Appointment Related 12/02/2018 Encounter Details Date Type Department Care Team Description 12/02/2018 Telephone [facility] Broderick Galloway, Jesus Alberto ointment Related Cardiology - Jenelle HAYES [address] [place] [address] (Wo rk) Social History Tobacco [...] this encounter Miscellaneous Notes Telephone Encounter - Courtney Moore - 12/02/2018 1309 EDT Pt's PCP wants pt seen by Dr. Galloway after pt is released from [facility]. PCP ordered a NUC and echo, which they want cancelled. They were told doctor here would order the echo. Spoke to PCP, Kavya Duarte NP. She saw pt on 11/26 for new onset angina. Pt has had 2 episodes, was sent to [facility]. Being transferred to [facility] . documented in this encounter Plan of Treatment Upcoming Encounters Date Type Specialty Care Team Description 09/29/2022 Office Visit Gastroenterology and Shaq Phan, Hepatology [address] [facility], [address] [place] [address] (Wo rk) documented as of this encounter Visit Diagnoses Not on filedocumented in this encounter Care Teams M[employer] Relationship Specialty Start Date End Date Denise Hooker APRN PCP - General 09/13/18 [address] [place] [address] documented as of this encounter
--- OUTSIDE RECORDS SUMMARY | 2022-02-21 01:12 | XMS_ITS | Encounter Summary ---
:1955 Author Organization [facility] Address [address] [place] [address] Care Team Providers Name Role Phone Denise Hooker APRN Primary Care Provider [phone] Reason for Referral Follow Up (Routine/Next Available) - Receiving Office to Obtain Authorization Specialty Diagnoses / Procedures Referred By Contact Refer red To Contact Diagnoses Chest pain, unspecified type Shane Smith MD [address] [place], [place] [id number] [place] [address] Referral ID Status Reason Start Expiration Visits Visits Date Date Requested Authorized [id number] Receiving Office Continuity of 1 1 to Obtain Care 9 Authorization Question Answer Reason for Request: Post hospitalization follow up Encounter Details Date Type Department Care Team Description 12/02/2018 - [facility] Leoncio Dunn MD [address] [facility] [address] [place] [address] NSTEMI (non-ST elevated myocardial infar ction) ([facility]) (Primary Dx); 12/03/2018 Encounter Cardiac/Telemetry Chon Mckeon MD [address] [facility] 1 [place] [address] Unstable angina ([facility]); Unit Chest pain, unspecified type [address] [place] [address] Social History Tobacco Use Types Packs/Day Years [...] Sign Reading Time Taken Comments Blood Pressure 115/70 12/03/2018 1751 EDT Pulse - - Temperature 36 ??C (96.8 ??F) 12/03/2018 1530 EDT Respiratory Rate 16 12/03/2018 1530 EDT Oxygen Saturation 97% 12/03/2018 1530 EDT Inhaled Oxygen Concentration - - Weight 103.3 kg (227 lb 12.8 oz) 12/02/2018 1816 EDT Height 176.5 cm (5' 9.5) 12/02/2018 1816 EDT Body Mass Index 33.16 12/02/2018 1816 EDT documented in this encounter Functional Status [...] as of this encounter Discharge Diagnoses Diagnosis I25.110 Atherosclerotic heart disease of [place] coronary artery with unstable angina pectoris-I25.110[ICD-10-CM] E78.5 Hyperlipidemia, unspecified-E78.5[ ICD-10-CM] I10 Essential (primary) hypertension-I10 [ICD-10-CM] E11.9 Type 2 diabetes mellitus without c omplications-E11.9[ICD-10-CM] Z79.84 nursing home (current) use of oral h ypoglycemic drugs-Z79.84[ICD-10-CM] Z95.5 Presence of coronary angioplasty i mplant and graft-Z95.5[ICD-10-CM] I44.0 Atrioventricular block, first degr ee-I44.0[ICD-10-CM] documented in this encounter Discharge Summaries Birgit Dunn MD - 12/03/[address] [facility] Division of Cardiovascular Medicine Department of Medicine DISCHARGE SUMMARY Primary Care Provider: Denise Hooker Attending Physician: Dr. Dunn Admit Date: 12/02/2018 Discharge Date: 12/03/18 Disposition: Home PROBLEMS Admitting Diagnosis: Unstable angina Final Hospital Diagnosis: Unstable Angina Additional Problems Managed in the Hospital Active Hospital Problems Diagnosis Date Noted ??? *Chest pain 12/03/2018 ??? Depression 12/03/2018 ??? Coronary atherosclerosis 09/07/2009 09-10-09 LHC : FFR of LAD 0.69 ; PCI LAD MARY- prox, LAD MARY-mid, LAD BMS distal 09-07-09 LHC : PCI MARY X 3 RCA 09-07-09 LHC: LM nl; LAD 50% mid 60% distal; Cx 40% distal; RCA 90% distal 70% mid, EF 60% ??? Hyperlipidemia with target LDL less than 70 09/07/2009 ??? Hypertensive disorder 09/07/2009 ??? Diabetes mellitus ([facility]) 09/07/2009 Oral agent - metformin Resolved Hospital Problems No resolved problems to display. HOSPITAL COURSE Claudia Batista is a 63 y.o. male with a history significant for coronary artery disease (status post9 stents) type 2 diabetes, hypertension, hyperlipidemia, extensive tobacco use who presented as a trasnfer from [facility] with 2 weeks of exertional neck and jaw pain as well as 2 days of neck and jaw pain while at rest. Patient's EKG showed sinus rhythm with a first-degree AV block. Patient admitted to the inpatient cardiology service for left heart catheterization. Claudia underwent a left heart catheterization on 12/03 which showed a normal left main artery, mild irregularities and patent stents in the left anterior descending, mild irregularities with a distal 40% in the left circumflex and mild irregularities and patent stents in the right coronary artery. No new stents were placed. Full report below. Patient underwent a echocardiogram which showed an ejection fraction of 60% with no regional wall motion abnormalities. Patient was hemodynamically stable during the reminder of hospitalization. Patient was discharged with instructions to continue taking all prior to admission meds with no medication changes. Patient advised to follow up with with his primary care physician LEFT HEART CATHETERIZATION 12/03 Diagnostic Cardiac Study Results Left main: normal Left anterior descending: Mild irregularities and patent stents Left circumflex: Mild irregularities, distal 40% no change Right coronary artery: Mild irregularities and patent through several stents. Grafts: n/a ?? Left Ventriculography and Hemodynamic Results None ?? Endovascular Study Results None ?? Post-Procedure Diagnostic Conclusion: Medical therapy is indicated. ECHOCARDIOGRAM 12/03 Summary: 1. Left ventricle: The cavity size was normal. Wall thickness was ? normal. Systolic function was normal. The estimated ejection fraction ? was 60%. Wall motion was normal; there were no diagnostic regional ? wall motion abnormalities. 2. Right ventricle: The cavity size was normal. Wall thickness was ? normal. Systolic function was normal. FOLLOW UP Appointments We Recommend but have not been Scheduled: Denise Hooker, PCP Main Kaye MD Internal Medicine, PGY-1 12/05/2018 Pager: [phone] Attending Attestation: I have personally evaluated Claudia Batista's on the day of discharge and reviewed the discharge summary above by Dr. Kaye. Birgit Dunn MD documented in this encounter Medications at Time of Discharge Medication Sig Dispensed Refills Start Date End Date amlodipine (NORVASC) 10 mg Take 1 Tab by mouth 30 Tab 11 09/10/2009 tablet daily. aspirin chewable 81 mg Take 1 Tab by mouth 30 Tab 11 01/18 tablet daily. ERGOCALCIFEROL, VITAMIN D2, Take by [...] encounter Progress Notes Colette Sánchez, JANNY - 12/03/2018 1022 EDT Initial Case Management/Social Work Assessment and Discharge Plan/Readmission Risk Assessment REASON FOR ADMISSION: [facility] Patient understands reason for admission: Yes PATIENT CONTACT INFO VERIFIED: Yes(Josie Tirado, sister, ) PATIENT ADDRESS VERIFIED: Yes LIVING ARRANGEMENTS AND ACCESSIBILITY ISSUES: Living Arrangements: Alone, Private residence Handicap access: None Bathroom located on bedroom level?: Yes What in home social supports are available to the patient? Friends / neighbors, Family member(s) Is 09/02 care available? NA ADVANCED DIRECTIVES, POA &/or COLST IN PLACE: Healthcare Directive: Yes, patient has advance directive for healthcare treatment Type of Healthcare Directive: Health care treatment directive Copy in Chart: No, copy requested from family DIRECTIVES FOR FINANCES: TRANSPORTATION: Transportation: Family CULTURAL, JAIN and/or LANGUAGE factors affecting health care/discharge planning: Spiritual/Cultural Requests: None Any factors affecting health care/discharge planning?: No Insurance in Place: Yes Medical Insurance: Yes Type of insurance: Commercial insurance Commercial coverage: [employer] Referred to patient financial services: No DISCHARGE RISK ASSESSMENT: Polypharmacy, > 7 medications Total # selected above: Score of 1 - 2: This patient is at LOW RISK for re-hospitalization Tentative plan to address the risk of re-hospitalization for those at HIGH MODERATE RISK: Bring riskfactors to attention of team to be addressed RAPT TOOL: Age: 50-65 Gender: Male Ambulation distance: 2 or more blocks (600ft) Gait device: None Community Services: Home health, MOW, SASH-none of one time a week Will you live with someone who will care for you?: No RAPT Tool Score: 9 SBIRT: SASQ (Single Alcohol Screening Question) How [...] Primary Care Provider: Denise Hooker PCP Verified: Yes Specialists: Cardiology(Dr. Goyo Galloway) Type of Home Health Services: None DME Provider: Pharmacy: [facility] [address] [facility] [address] [address] [facility] [address] [address] [facility] - [address] [facility] [address] POST HOSPITAL TRANSITION PLAN: Patient lives alone in [place], [place]. 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 His sister lives about 40 mins away and is very supportive. Anticipate patient will d/c home when medically stable. No CM needs have been identified. Colette Sánchez RN 12/03/2018 10:25 Main Islas MD - 12/03/2018 0702 EDT Cardiology Progress note Service Date: 12/03/2018 Admit Date: 12/02/2018 17:38 Reason for Admission: 63 y.o. male admitted with a chief complaint of neck and jaw pain unstable angina and now with a principal diagnosis of unstable angina. Events/ Procedures in the last 24 Hours: -Patient admitted to the inpatient cardiology service Subjective/Objective Subjective Mr. Batista feels well this morning. He is ready to go for his left heart catheterization. He denies any chest pain, shortness of breath, nausea, vomiting. He slept very well last night. Review of Systems Pertinent items are noted in Subjective/HPI Objective Vital Signs Patient Vitals for the past 8 hrs: BP Heart Rate Resp Temp SpO2 O2 Device 12/03/18 1400 ? None 12/03/18 0806 123/77 67 BPM 16 36.2 ??C (97.2 ??F) 99 % None Weight: No data found. No intake or output data in the 24 hours ending 12/03/18 1415 Physical Exam General: No acute distress, comfortable, answering questions appropriately, obese HEENT: Head atraumatic and normocephalic. EOMI. Moist mucous membranes. Sclera/conjunctiva and oropharynx clear. Neck: Supple. Trachea midline. CV: RRR; Normal S1 and S2, No murmurs, rubs or gallops appreciated. Respiratory: CTAB, No crackles or wheezing Abdomen: Soft, tender to palpation, no masses, no distension, no rebound/guarding. Extremities: Compression stockings on lower extremities, no lower extremity edema, pulses 2+ bilaterally Neuro: Alert and oriented x 3. CN and strength grossly intact with no focal deficit. Psych: Appropriate mood and affect. Skin: No rashes, lesions, or excoriations. Is PICC or central line present? No, PICC/Central line not present. Medications Reviewed Labs CBC: Recent Labs 12/02/18183612/03/18 0541 WBC 10.26 8.31 HGB 15.7 15.7 HCT 46.5 46.5 MCV 83 84 PLT 297 266 BMP: Recent Labs 12/02/18183612/03/18 0541 CREATININE 0.74 0.77 BUN 14 14 NA 136 136 K 4.6 4.5 CL 97 97 CO2 28 28 MG 2.2 2.2 Cardiac Biomarkers: Recent Labs 12/02/18 1837 TROPONINI <0.034 Non-Invasive Findings last 24 hours: Echocardiogram 12/03: 1. Left ventricle: The cavity size was normal. Wall thickness was ? normal. Systolic function was normal. The estimated ejection fraction ? was 60%. Wall motion was normal; there were no diagnostic regional ? wall motion abnormalities. 2. Right ventricle: The cavity size was normal. Wall thickness was ? normal. Systolic function was normal. Telemetry: yes, Normal sinus rhythm ECG: N/A Does the patient have active heart failure? no Assessment: Claudia Batista is a 63 y.o. male with a history significant for coronary artery disease (status post9 stents) type 2 diabetes, hypertension, hyperlipidemia, extensive tobacco use who presents with 2 weeks of exertional neck and jaw pain as well as 2 days of neck and jaw pain while at rest. Patient admitted to the inpatient cardiology service for left heart catheterization. Plan: Unstable Angina: - Telemetry monitoring class I - ASA 81mg daily - Plavix 75mg daily - heparin gtt - nitro 0.4mg SL q5min prn - supplemental O2 if needed - atorvastatin 40mg daily - Plan for left heart catheterization 12/03 Type 2 Diabetes: Hemoglobin A1c 7.0 - Consistent carbohydrate diet (in addition to caffeine free, cardiac) - POCT Glc before meals and qhs - aspart SSI - glargine 30 units every morning (consider increasing to twice daily once patient is no longer n.p.o.) ?? CAD/hypertension/HLD: - SALES ATTENDANT amlodipine 10 mg daily - SALES ATTENDANT Crestor 40 mg daily - SALES ATTENDANT metoprolol XL 150 mg daily. ?? Anxiety/depression: - Sertraline 50 mg daily at bedtime - Trazodone 50 mg daily at bedtime ?? Diet: Caffeine free, cardiac diet, consistent carbohydrate VTE Prophylaxis: Heparin drip Consults: N/A CODE STATUS: Full Admission Status Inpatient. Anticipated duration of hospitalization is greater than two midnights due to Unstable angina. ?? Main Kaye MD Internal Medicine, PGY-1 12/02/2018 Pager: [phone] documented in this encounter H&P Notes Main Kaye MD - 12/02/2018 1733 EDT Cardiology History and Physical Admite Date: 12/02/2018 Date of Service: 12/02/2018 LOS: 0 days Service Date: 12/02/2018 Admit Date: 12/02/2018 17:38 Primary Care Provider: Denise Hooker Chief Complaint: Neck and jaw pain HPI Claudia Batista is a 63 y.o. male with a past history of of CAD (status post 9 stents placed (type 2 diabetes, hypertension, hyperlipidemia who presents as a transfer [facility] worsening neck and jaw pain. Over the winter the patient had been doing well with no exertional chest discomfort or dyspnea even with exercise. He was able to shovel snow without any difficulty. This spring he decided to start riding his bicycle more. Approximately 2 weeks ago the patient rode for about 11 miles and developed neck and jaw pain as well as shortness of breath. He took nitroglycerin which quickly resolved the pain. He has had many similar presentations of exertional dyspnea and neck and jaw pain with his prior myocardial infarction. Patient has had known coronary artery disease dating back to 1992 when he had his first heart attacksubsequently the patient has had 9 stents overall since that time. Since the return of the patient's neck and jaw pain with exertion he has follow- up with his primary care physician who performed an EKG and was trying to arrange for an outpatient stress test. While waiting for the outpatient stress test on Friday 12/01 the patient noticed this neck and jaw pain when he was sitting on the couch doing nothing. This is what prompted him to go to the emergency department and get worked up. Of note, patient states that he once remembers having neck and jaw pain, had a negative stress test,but had a positive left heart catheterization with stents placed. While in the emergency department at [facility], patient's labs had no troponin elevation, normalchest x-ray, EKG x3 readings which were negative for ischemia (normal sinus rhythm with an incomplete right bundle branch block). Review Of Systems: Full 10 point ROS obtained, pertinent findings noted in HPI. Prior Cardiac History: ??? 1992, 2003 myocardial infarction ??? August 23, 2003, 2 stents ??? September 07 2009, 3 stents placed in RCA ??? September 10, 2009, 3 stents placed in LAD ??? February 11, 2016, 1 stent placed Cardiac risk factors: Coronary artery disease, 01-xedo-urut smoking history, hypertension, hyperlipidemia, family history (both sides have had multiple heart attacks) PMH PSH Past Medical History: Diagnosis Date ??? CAD (coronary artery disease) 09-10-09 PCI LAD prox MARY, LAD mid MARY, LAD distal BMS; 09-07-09 PCI MARY X 3 RCA; 2004 stents X2 ??? Diabetes mellitus ([facility]) oral agents ??? Diverticulitis ??? Hyperlipidemia ??? Hypertension ??? MO (myocardial infarction) ([facility]) 1992, 2003 ??? Recurrent infections rt foot 5th toe Past Surgical History: Procedure Laterality Date ??? CARPAL TUNNEL RELEASE bilateral ??? ROTATOR CUFF REPAIR right, fall 2015 ??? 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 UMBILICAL HERNIA REPAIR Jun, 2009 Social History Family History Social History Tobacco Use ??? Smoking status: Former Smoker Years: 20.00 Types: Cigarettes Last attempt to quit: 05/1994 Years since quittin.5 ??? Smokeless tobacco: Never Used Substance Use Topics ??? Alcohol use: Yes Comment: rare Family History Problem Relation Age of Onset ??? Diabetes Brother ??? Heart Disease Brother ??? Heart Disease Father at age 61 Medications Medications Prior to Admission Medication Sig Dispense Refill Last Dose ??? [DISCONTINUED] AMITRIPTYLINE HCL (AMITRIPTYLINE ORAL) Take 20 mg by mouth at bedtime. Takes 2-10mg tablets at bedtime Taking ??? amlodipine (NORVASC) 10 mg tablet Take 1 Tab by mouth daily. 30 Tab 11 Taking ??? aspirin chewable 81 mg tablet Take 1 Tab by mouth daily. 30 Tab 11 Taking ??? [DISCONTINUED] dapagliflozin (FARXIGA) 5 mg tablet Take 5 mg by mouth daily. Taking ??? ERGOCALCIFEROL, VITAMIN D2, (VITAMIN D ORAL) Take by mouth daily Taking ??? exenatide microspheres (BYDUREON) 2 mg/0.65 mL pen injector Inject 2 mg into the skin every 7 days. Taking ??? insulin glargine (LANTUS) 100 unit/mL injection Inject 33 Units into the skin 2 times daily. 33 units in the AM and 33 units in PM Taking ??? liraglutide (VICTOZA) 0.6 mg/0.1 mL (18 mg/3 mL) injectable pen Inject 1.8 mg into the skin daily. Not Taking ??? lisinopril (PRINIVIL, ZESTRIL) 5 mg tablet Take 5 mg by mouth daily. Taking ??? [DISCONTINUED] metformin (GLUCOPHAGE) 1,000 mg tablet Take by mouth 2 times daily with meals. Restart Metformin Sat Take as previously prescribed Metformin 1000 mg in the morning and Metformin 500 mg each evening, Indications: TYPE 2 DIABETES MELLITUS (Patient taking differently: Take 1,000 mg by mouth 2 times daily with breakfast and dinner. ) 30 Tab 0 Taking ??? METOPROLOL SUCCINATE ORAL Take 150 mg by mouth daily. Takes 3-50 mg. Tablets daily Taking ??? nitroGLYCERIN (NITROSTAT) 0.[address] 0.4 mg under the tongue as needed for Chest Pain. Taking ??? [DISCONTINUED] pramipexole (MIRAPEX) 0.125 mg tablet Take 0.125 mg by mouth. Reported on 09/09/2016 Not Taking ??? rosuvastatin (CRESTOR) 40 mg tablet Take 40 mg by mouth daily. Taking ??? sertraline (ZOLOFT) 50 mg tablet Take 50 mg by mouth daily. Taking ??? traZODone (DESYREL) 50 mg tablet Take 50 mg by mouth daily. Taking Allergies No Known Allergies Current Facility-Administered Medications: [START ON 12/03/2018] amLODIPine (NORVASC) tablet 10 mg oral DAILY [START ON 12/03/2018] aspirin EC tablet 81 mg oral DAILY clopidogrel (PLAVIX) tablet 600 mg oral ONCE dextrose 50 % solution 12.5 g intravenous PRN glucagon injection 1 mg intramuscular PRN heparin 1,000 unit/mL injection 5,900 Units intravenous PRN Or heparin 1,000 unit/mL injection 2,900 Units intravenous PRN heparin in 1/2 NS 25,000 unit/250 mL infusion intravenous CONTINUOUS insulin aspart U-100 (NOVOLOG FLEXPEN) injection subcutaneous TID WC [START ON 12/03/2018] insulin glargine (LANTUS SOLOSTAR) injection pen 30 Units subcutaneous DAILY L.A. INSULIN [START ON 12/03/2018] lisinopril (PRINIVIL, ZESTRIL) tablet 5 mg oral DAILY [START ON 12/03/2018] metoprolol XL (TOPROL-XL) tablet 150 mg oral DAILY nitroGLYCERIN (NITROSTAT) SL tablet 0.4 mg sublingual Q5 MINUTES PRN rosuvastatin (CRESTOR) tablet 40 mg oral QHS sertraline (ZOLOFT) tablet 50 mg oral QHS sodium chloride 0.9 % flush 3 mL intravenous Q8H traZODone (DESYREL) tablet 50 mg oral QHS Objective Vitals Temp: [35.9 ??C (96.7 ??F)] (), Heart Rate: [67 BPM] (), Pulse: -- (), Resp: [16] (), BP: (126)/(79)(), SpO2: [100 %] (), Numeric Pain Level (Scale 1-10): 0 Weight : (!) 103.3 kg (227 lb 12.8 oz) Body mass index is 33.16 kg/m??. Physical Exam: BP 126/79 (BP Cuff Location: Left arm, Patient Position: Sitting) Temp 35.9 ??C (96.7 ??F) (Temporal) Resp 16 Ht 176.5 cm (69.5) Wt (!) 103.3 kg (227 lb 12.8 oz) SpO2 100% BMI 33.16 kg/m?? General: No acute distress, comfortable, answering questions appropriately, obese HEENT: Head atraumatic and normocephalic. EOMI. Moist mucous membranes. Sclera/conjunctiva and oropharynx clear. Neck: Supple. Trachea midline. CV: RRR; Normal S1 and S2, No murmurs, rubs or gallops appreciated. Respiratory: CTAB, No crackles or wheezing Abdomen: Soft, tender to palpation, no masses, no distension, no rebound/guarding. Extremities: Compression stockings on lower extremities, no lower extremity edema, pulses 2+ bilaterally Neuro: Alert and oriented x 3. CN and strength grossly intact with no focal deficit. Psych: Appropriate mood and affect. Skin: No rashes, lesions, or excoriations. Labs Reviewed in Prism and Significant for: CBC: Recent Labs 12/02/18 1837 WBC 10.26 RBC 5.58 HGB 15.7 HCT 46.5 MCV 83 MCH 28.1 MCHC 33.8 PLT 297 ECG: Sinus rhythm with first-degree AV block Imaging/other studies: n/a Assessment Claudia Batista is a 63 y.o. male with a history significant for coronary artery disease (status post9 stents) type 2 diabetes, hypertension, hyperlipidemia, extensive tobacco use who presents with 2 weeks of exertional neck and jaw pain as well as 2 days of neck and jaw pain while at rest. Patient admitted to the inpatient cardiology service for left heart catheterization versus stress test. Plan Unstable Angina: - admit with telemetry monitoring class I - trend troponin q8h until peak - ASA 81mg daily (received ASA 325 on 12/01) - Plavix 600mg x 1 now then 75mg daily - heparin gtt - nitro 0.4mg SL q5min prn - supplemental O2 if needed - atorvastatin 40mg daily - NPO at midnight for potential intervention ([facility]) or other testing if needed - ordered lipid profile and A1c - Echocardiogram ordered Type 2 Diabetes: - Consistent carbohydrate diet (in addition to caffeine free, cardiac) - POCT Glc before meals and qhs - aspart SSI - glargine 30 units every morning - Follow-up hemoglobin A1c CAD/hypertension/HLD: - SALES ATTENDANT amlodipine 10 mg daily - SALES ATTENDANT Crestor 40 mg daily - SALES ATTENDANT metoprolol XL 150 mg daily. Anxiety/depression: - Sertraline 50 mg daily at bedtime - Trazodone 50 mg daily at bedtime Diet: Caffeine free, cardiac diet, consistent carbohydrate VTE Prophylaxis: Heparin drip Consults: N/A CODE STATUS: Full Admission Status Inpatient. Anticipated duration of hospitalization is greater than two midnights due to Unstable angina. Main Kaye MD Internal Medicine, PGY-1 12/02/2018 Pager: [phone] Associated attestation - Birgit Dunn MD - 12/03/2018 6016 EDT Attending Attestation: I have personally seen and examined Claudia Batista, discussed the patient's management with the team, and agree with the findings and plan as outlined by Dr. Kaye. Classic symptoms of unstable angina, known CAD, for [facility]. Birgit Dunn, MDdocumented in this encounter Procedure Notes Kenan Gordon MD - 12/03/2018 1504 EDT Dear Denise Hooker NP Claudia Batista came to cardiac catheterization at the [facility] on 12/03/2018. He had presented with some anginal quality neck discomfort with recently increased activity. As you know he has a history of multiple previous interventions with stenting throughout much of the LADand right coronary arteries. Today's catheterization is summarized below. He had good patency of all his coronary arteries and did not require an intervention. It is possible that the patient is having symptoms at higher levels of exertion on the basis of residual small vessel disease. The inpatient service will be in touch with his discharge details. Thank you Kenan Gordon MD Cardiovascular Catheterization Laboratory Preliminary Report -- Catheterization Date of Service/Procedure: 12/03/2018 Attending Physician: Kenan Gordon MD Fellow: Fabian Randle MD Pre-Procedure Diagnosis /NCDR Indication: Claudia Batista is a 63 y.o. year old male with worsening angina. Chest Pain Symptom Assessment: Typical Angina NCDR Indication for PCI: New onset Angina <= 2 months If NOT STEMI or NSTE-ACS, Syntax Score: Low Heart Failure: No CHSA Clinical Frailty Scale: 2: Well Prior Stress Testing? No Anesthesia: A moderate level of anesthesia/conscious sedation was used in addition to local anesthesia. Access: Right radial artery Procedure: He was brought to [facility] Cardiac Catheterization Laboratory for the procedure: Diagnostic coronary/graft angiography. Closure: TR Band Post-Procedure Condition: The condition of the patient was Good. Complications: None. IV Contrast Total: 50 mL X-ray Dose: mGy Estimated Blood Loss: Minimal. Unless otherwise noted,there were no specimens removed, cultures obtained, or drains retained. Research Study: Patient is not enrolled in a research study. Diagnostic Cardiac Study Results Left main: normal Left anterior descending: Mild irregularities and patent stents Left circumflex: Mild irregularities, distal 40% no change Right coronary artery: Mild irregularities and patent through several stents. Grafts: n/a Left Ventriculography and Hemodynamic Results None Endovascular Study Results None Post-Procedure Diagnostic Conclusion: Medical therapy is indicated. Kenan Gordon MD PagerNumber: [phone] 12/03/2018 15:04 documented in this encounter Miscellaneous Notes Plan of Care - Juvenal Christiansen, JANNY - 12/03/2018 1101 EDT Problem: Daily Care Plan Goals Goal: Care Plan Documentation Outcome: Ongoing 12/03/18 0806 Care Plan Focus Area of Focus Circulatory Status Goal This Shift VSS in prep for LHC VS: BP 123/77 (BP Cuff Location: Left arm, Patient Position: Semi fowlers) Temp 36.2 ??C (97.2 ??F) (Tympanic) Resp 16 Ht 176.5 cm (69.5) Wt (!) 103.3 kg (227 lb 12.8 oz) SpO2 99% BMI 33.16 kg/m?? Data: Assumed care of pt at 0700. Pt admit for chest pain, awaiting LHC today. Pt denies CP, SOB at start of shift. NSR on tele. Action: All medications administered as ordered (see eMAR). Heparin gtt infusing per protocol. Tele monitored per policy. Continually assessed for pain and offered interventions. Response: Pt pleasant and cooperative; able to make needs known. Echo today showed normal EF: 60%. Pt ambulating independently in hallway. Plan for C today. 1600: Pt now s/p LHC via RRA; site remains C/D/I. No interventions made. Pt denies post-procedure CP, SOB. 1800: d/c order in. Pt passed orthos, ambulating independently in ruby. IV removed, tele removed. AVS discussed with pt and family, addressed all questions. JUVENAL CHRISTIANSEN RN 12/03/2018 10:58 lan of Care - Eric Brand RN - 12/03/2018 0421 EDT Problem: Daily Care Plan Goals Goal: Care Plan Documentation Outcome: Ongoing Data: A&OX4, VSS, no c/o of chest neck/jaw pain, or sob Action: Heparin gtt continued, UFH therapeutic at 0100, meds per MAR, maintaining NPO status since MN for pending Left heart cath in am, Echo ordered for am Response: VSS, will continue to monitor ERIC BRAND RN 12/03/2018 4:19 lan of Care - Eric Brand RN - 12/02/2018 2159 EDT Problem: Daily Care Plan Goals Goal: Care Plan Documentation Outcome: Ongoing Data:A&OX4, VSS, NSR on monitor, no c/o chett, neck or jaw pain, or sob Action: meds per MAR, NPO after MN for pending Left heart cath in am, echo in am Response:WIll continue to monitor ERIC BRAND RN 12/02/2018 21:58 documented in this encounter Plan of Treatment Upcoming Encounters Date Type Specialty Care Team Description 09/29/2022 Office Visit Gastroenterology and Shaq Phan, Hepatology [address] [place] [address], [facility] [address] [place] [address] (Wo rk) Pending Results Name Type Priority Associated Diagnoses Date/Ti me OUTSIDE IMAGES - OTHER Imaging 12/02 14:58 EDT CHEST Scheduled Referrals Name Type Priority Associated Diagnoses Order S chedule AMB CONS/FOLLOW UP Outpatient Referral Routine Chest pain, Or dered: PRIMARY CARE unspecified type 12/03/2018 PHYSICIAN documented as of this encounter Procedures Procedure Name Priority Date/Time Associated Comments Diagnosis ECG REPORT - SCANNED 12/07/2018 11:46 EDT ECG REPORT - SCANNED 12/07/2018 11:28 EDT LEFT HEART CATH Routine 12/03/2018 15:50 Results for this EDT procedure are i n the results section. GLUCOSE, GLUCOMETER Routine 12/03/2018 15:35 Resu lts for this EDT procedure are i n the results section. ECG REPORT - SCANNED 12/03/2018 13:46 EDT GLUCOSE, GLUCOMETER Routine 12/03/2018 11:22 Resu lts for this EDT procedure are i n the results section. ECHOCARDIOGRAM Routine 12/03/2018 8:37 Results fo r this EDT procedure are i n the results section. GLUCOSE, GLUCOMETER Routine 12/03/2018 7:46 Resul ts for this EDT procedure are i n the results section. HEPARIN LEVEL - STAT 12/03/2018 5:41 Results f or this UNFRACTIONATED HEPARIN EDT proce dure are in the results section. COMPLETE BLOOD COUNT Routine 12/03/2018 5:41 Resu lts for this EDT procedure are i n the results section. BUN Routine 12/03/2018 5:41 Results for this EDT procedure are i n the results section. MAGNESIUM Routine 12/03/2018 5:41 Results for this EDT procedure are i n the results section. HEMOGLOBIN A1C Routine 12/03/2018 5:41 Results fo r this EDT procedure are i n the results section. CREATININE Routine 12/03/2018 5:41 Results for this EDT procedure are i n the results section. ELECTROLYTES Routine 12/03/2018 5:41 Results for this EDT procedure are i n the results section. HEPARIN LEVEL - STAT 12/03/2018 1:09 Results f or this UNFRACTIONATED HEPARIN EDT proce dure are in the results section. INPATIENT ADD-ON Routine 12/02/2018 19:35 Results for this EDT procedure are i n the results section. GLUCOSE, GLUCOMETER Routine 12/02/2018 19:05 Resu lts for this EDT procedure are i n the results section. TROPONIN I Routine 12/02/2018 18:37 Results for this EDT procedure are i n the results section. COMPLETE BLOOD COUNT Routine 12/02/2018 18:37 Res ults for this EDT procedure are i n the results section. BUN Routine 12/02/2018 18:37 Results for this EDT procedure are i n the results section. MAGNESIUM Routine 12/02/2018 18:37 Results for this EDT procedure are i n the results section. CREATININE Routine 12/02/2018 18:37 Results for this EDT procedure are i n the results section. ELECTROLYTES Routine 12/02/2018 18:37 Results for this EDT procedure are i n the results section. EKG 12-LEAD Routine 12/02/2018 18:08 Results for this EDT procedure are i n the results section. documented in this encounter Results LEFT HEART CATH (12/03/2018 15:50 EDT) Specimen Narrative [facility] - 12/06/2018 8:20 EDT Cardiology [address] [place] [address] Catheterization Laboratory Study Patient: Claudia Batista ?Study Date: ? 12/03/2018 ? Accession #: ?[id number] : ? 1955 Referring: Denise Hooker Aprn Diagnostic Attending: ??Kenan Gordon Diagnostic Fellow: Fabian Randle MD ATTESTATION: IDr. Andrea was the initial au thor of this report. Dr. Kenan Gordon was present and supervising for th e entire procedure. I, Dr. Kenan Gordon have reviewed and agreed with the findings of this report. PROCEDURE PLAN: A diagnostic study was performed without intervention. RESEARCH STUDY: Patient is not enrolled in any research studies. IMPRESSIONS: 1. Mild coronary artery disease, status post multiple stent placement. ?? No stent restenosis. There is no ind ication for coronary artery ?? bypass grafting. There is no indicat ion for percutaneous ?? intervention. 2. Atypical angina. The culprit lesion w as not identified. SUMMARY: 1. HPI and indications: Dyspnea. 2. Coronary arteries: The coronary circu lation is right dominant. 3. Left main: Minor luminal irregulariti es. 4. LAD: Prior intervention #1: stent in the mid LAD. The stented segment ?? is patent. Prior intervention #2: st ent in the proximal LAD. The ?? stented segment is patent. 5. Left circumflex: Minor luminal irregu larities. 6. Right coronary: Prior intervention #1 : stent in the proximal RCA. The ?? stented segment is patent. Prior int ervention #2: stent in the mid ?? RCA. The stented segment is patent. RECOMMENDATIONS: 1. ACC recommendation: Medical therapy a nd/or counseling. 2. Continue aspirin, at 81mgPOdaily, ind efinitely. HISTORY: Dyspnea. ??PMH: ?? Myocardial infarction . ??Risk factors: ??Family history of coronary artery disease. Hypertension . Diabetes mellitus; on therapy with insulin. Dyslipidemia. ??Allergies: ??No known allergies. LABS, PRIOR TESTS, PROCEDURES AND SURGER Y: Serum creatinine (current admission) of 0.8 mg/dl. ??Hemoglobin (pre-procedure) of 15.7 g/dl. ??Catheter ization with coronary intervention. STUDY DATA: Study status: ??Cardiac cath: urgent. ?? Patient status: ??Inpatient. Location: ??Catheterization laboratory. Sex: male. Patient is 63yr old. Height: 176.5cm. Weight: 103.3kg. BSA: 2 .28m^2. Procedures performed: ?Right radi al artery access. ?Left coronary angiography. ANESTHESIA: Conscious sedation by cardiology staff. PROCEDURE: [...] radial artery access. A 6 Fr/10 /.021 [place] Sheath SLENDER ?? sheath was advanced into the vessel. 5. Selective left coronary angiography. A 5 Fr Tig Catheter 4.0 catheter ?? was advanced into the left coronary vessel ostium under fluoroscopic ?? guidance. Contrast was injected. Rut ges were obtained in multiple ?? projections. 6. Right radial artery hemostasis. Mecha nical compression was applied. STUDY COMPLETION: The estimated blood loss was 10ml. All c atheters inserted during the procedure were removed. The patient tianna rated the procedure well and was discharged from the lab. There were no c omplications. ??Contrast: Isovue 70ml (total dose). ??Isovue 130ml (wasted). ??Fluoroscopy time: 0.8min. ??Fluoroscopy dose: ??37.8cGy. CORONARY ARTERIES: The coronary circulation is right domina nt. Left main: ??Minor luminal irregularitie s. LAD: Prior intervention #1: stent in the mid LAD. The stented segment is patent. Prior intervention #2: stent in the proximal LAD. The stented segment is patent. Left circumflex: ??Minor luminal irregul arities. Right coronary: Prior intervention #1: s tent in the proximal RCA. The stented segment is patent. Prior interve ntion #2: stent in the mid RCA. The stented segment is patent. HEMODYNAMICS: + + + Stage description ? Condition 1:Condition 1 - + + + Arterial pressure s/d (m) 99/64 (80) ? + + + * Electronically signed by Kenan Gordon MD 2018-12-06 08:20 Procedure Note Kenan Gordon MD - 12/06/[address] [place] [id number] Catheterization Laboratory Study Patient: Claudia Batista Study Date: : 1955 Referring: Denise Hooker Aprn Diagnostic Attending: Kenan Gordon Diagnostic Fellow: Fabian Randle MD ATTESTATION: Dr. Andrea Andino was the initial au thor of this report. Dr. Kenan Gordon was present and supervising for th e entire procedure. Sina, Dr. Kenan Gordno have reviewed and agreed with the findings of this report. PROCEDURE PLAN: A diagnostic study was performed without intervention. RESEARCH STUDY: Patient is not enrolled in any research studies. IMPRESSIONS: 1. Mild coronary artery disease, status post multiple stent placement. No stent restenosis. There is no indica tion for coronary artery bypass grafting. There is no indication for percutaneous intervention. 2. Atypical angina. The culprit lesion w as not identified. SUMMARY: 1. HPI and indications: Dyspnea. 2. Coronary arteries: The coronary circu lation is right dominant. 3. Left main: Minor luminal irregulariti es. 4. LAD: Prior intervention #1: stent in the mid LAD. The stented segment is patent. Prior intervention #2: stent in the proximal LAD. The stented segment is patent. 5. Left circumflex: Minor luminal irregu larities. 6. Right coronary: Prior intervention #1 : stent in the proximal RCA. The stented segment is patent. Prior interv ention #2: stent in the mid RCA. The stented segment is patent. RECOMMENDATIONS: 1. ACC recommendation: Medical therapy a nd/or counseling. 2. Continue aspirin, at 81mgPOdaily, ind efinitely. HISTORY: Dyspnea. PMH: Myocardial infarction. Ris k factors: Family history of coronary artery disease. Hypertension . Diabetes mellitus; on therapy with insulin. Dyslipidemia. Allergies: N o known allergies. LABS, PRIOR TESTS, PROCEDURES AND SURGER Y: Serum creatinine (current admission) of 0.8 mg/dl. Hemoglobin (pre-procedure) of 15.7 g/dl. Catheteriz ation with coronary intervention. STUDY DATA: Study status: Cardiac cath: urgent. Franci ent status: Inpatient. Location: Catheterization laboratory. Se hairston: male. Patient is 63yr old. Height: 176.5cm. Weight: 103.3kg. BSA: 2 .28m^2. Procedures performed: Right radial arter y access. Left coronary angiography. ANESTHESIA: Conscious sedation by cardiology staff. PROCEDURE: 1. Initial setup. The patient was jameson t to the laboratory in the fasting state. A baseline ECG was recor ded. Surface ECG leads, automatic cuff blood pressure measureme nts, and pulse oximetric signals were monitored. 2. Skin preparation. The planned punctur e sites were prepped with chlorhexidine and draped in the usual s terile manner. 3. Local anesthesia. Using 2% Lidocaine, local anesthetic was administered to the access site(s). 4. Right radial artery access. A 6 Fr/10 /.021 [place] Sheath SLENDER sheath was advanced into the vessel. 5. Selective left coronary angiography. A 5 Fr Tig Catheter 4.0 catheter was advanced into the left coronary ves fredy ostium under fluoroscopic guidance. Contrast was injected. Images were obtained in multiple projections. 6. Right radial artery hemostasis. Mecha nical compression was applied. STUDY COMPLETION: The estimated blood loss was 10ml. All c atheters inserted during the procedure were removed. The patient tianna rated the procedure well and was discharged from the lab. There were no c omplications. Contrast: Isovue 70ml (total dose). Isovue 130ml ( wasted). Fluoroscopy time: 0.8min. Fluoroscopy dose: 37.8cGy. CORONARY ARTERIES: The coronary circulation is right domina nt. Left main: Minor luminal irregularities. LAD: Prior intervention #1: stent in the mid LAD. The stented segment is patent. Prior intervention #2: stent in the proximal LAD. The stented segment is patent. Left circumflex: Minor luminal irregular ities. Right coronary: Prior intervention #1: s tent in the proximal RCA. The stented segment is patent. Prior interve ntion #2: stent in the mid RCA. The stented segment is patent. HEMODYNAMICS: + + + Stage description Condition1:Condition 1 - + + + Arterial pressure s/d (m) 99/64 (80) + + + * Electronically signed by Kenan Gordon MD 2018-12-06 08:20 Performing Organization Address City/[facility]/ZIP Code Phon e Number [facility] (ABNORMAL) GLUCOSE, GLUCOMETER (12/03/2018 15:35 EDT) Glucose, 106 (H) 70 - 100 [facility] Fingerstick mg/dl LABORATORY SERVICES [place] [id number]: [facility] Test Performed by LABORATORY Nursing Services SERVICES Specimen Blood Performing Organization Address City/[facility]/ZIP Code Phon e Number [facility] LABORATORY [address] [place] [address] SERVICES (ABNORMAL) GLUCOSE, GLUCOMETER (12/03/2018 11:22 EDT) Glucose, 117 (H) 70 - 100 [facility] Fingerstick mg/dl LABORATORY SERVICES [place] [id number]: [facility] Test Performed by LABORATORY Nursing Services SERVICES Specimen Blood Performing Organization Address [facility]/ZIP [facility] Phon e Number [facility] LABORATORY [address] [place] [address] SERVICES ECHOCARDIOGRAM (12/03/2018 8:37 EDT) Specimen Narrative [facility] - 12/03/2018 9:57 EDT *Interpreting Group:* *[facility]* [address] [place] [address] Date of study: 12/03/2018 Transthoracic Echocardiography M-mode, complete 2D, complete spectral D oppler, and color Doppler *STUDY CONCLUSIONS* Summary: 1. Left ventricle: The cavity size was n ormal. Wall thickness was ?? normal. Systolic function was normal . The estimated ejection fraction ?? was 60%. Wall motion was normal; the re were no diagnostic regional ?? wall motion abnormalities. 2. Right ventricle: The cavity size was normal. Wall thickness was ?? normal. Systolic function was normal . *PATIENT PRESENTATION* Height: ? 177.8cm (70in ) S/D Pressure: 114 / 63 Weight: ? 103kg (226.5lb ) BSA: ?2.29m^2 Test start time: ??08:37 AM. Test stop time: ??09:12 AM. ADMITTING ?Chon Mckeon MD ATTENDING ?Birgit Dunn MD REFERRING ?Denise Hooker Aprn PERFORMING ?? [facility], Ip ORDERING ? [employer] LIBRARY CIRCULATION ASSISTANT ??Michelle LaBarge *PROCEDURE DATA* Procedure information: ??The patient was identified by two identifiers. This study was interpreted by [facility]. Pertinent images and digital data are archived for permanent storage and are available for subsequent review. ??Study status: Routine. Transthoracic echocardiography. ??M-mode, complete 2D, complete spectral Doppler, and color Doppler. A ransthoracic Echocardiogram was performed. Scanning was performed from t he parasternal, apical, subcostal, and suprasternal notch acoust ic windows. Images were obtained using an Epiq 10 cardiac ultrasound mach ine. Image quality was poor. The study was technically limited due to bod y habitus. Intravenous contrast (Definity) was administered by Michelle Corona NANY to enhance delineation of left ventricular endocard ial borders. Prior to administration at least two (2) contiguo us segments of the left ventricular border were not visualized. Definity amount administered was a total of 2ml. One vial was used. ??Faustino dy completion: ??The patient tolerated the procedure well. *INDICATIONS AND HISTORY* Indications: ?? 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 *CARDIAC ANATOMY* Left ventricle: ??The cavity size was no rmal. Wall thickness was normal. Systolic function was normal. The estima antonio ejection fraction was 60%. Wall motion was normal; there were no di agnostic regional wall motion abnormalities. Aortic valve: ?? Trileaflet; normal thic kness leaflets. Mobility was not restricted. ??Doppler: ??Transvalvular v elocity was within the normal range. There was no stenosis. There was no significant regurgitation. Aorta: ??Aortic root: The aortic root wa s normal in size. Mitral valve: ?? Structurally normal tash ve. ?? Mobility was not restricted. ??Doppler: ??Transvalvular v elocity was within the normal range. There was no evidence for stenosi s. There was no significant regurgitation. ?Peak gradient (D): 2 .6mm Hg. Left atrium: ??The atrium was normal in size. Right ventricle: ??The cavity size was n ormal. Wall thickness was normal. Systolic function was normal. Pulmonic valve: ?Doppler: ??Transval vular velocity was within the normal range. There was no evidence for stenosis. There was no significant regurgitation. Tricuspid valve: ?? Structurally normal valve. ?Doppler: ??Transvalvular velocity was within the normal range. Th ere was no evidence for stenosis. There was no significant regur gitation. Pulmonary artery: ?Systolic pressure could not be accurately estimated. Right atrium: ??The atrium was normal in size. Pericardium: ??There was no pericardial effusion. Systemic veins: Inferior vena cava: The vessel was merry l in size. The respirophasic diameter changes were in the normal rang e (greater than or equal to 50%), consistent with normal [place] ous pressure. Measurements Left ventricle ?Value ?02/11/2016 Reference LV ID, ED, PLAX ? 4.9 ?? cm ? 3.5 - 6.0 LV ID, ES, PLAX ? 3.2 ?? cm ? 2.1 - 4.0 LV PW thickness, ED, PLAX ? 1.1 ?? cm ? --------- LV end-diastolic volume, 1-p ?108 ?? ml ? --------- A2C LV ejection fraction, 1-p A2C ? 49 ?% ?60 ? --------- LV end-diastolic volume, 1-p ?131 ?? ml ? --------- A4C LV ejection fraction, 1-p A4C ? 60 ?% ?57 ? --------- LV IVRT, DP ? 99 ?ms ? 60 - 100 LV e', lateral ?0.084 m/sec ?? --------- LV E/e', lateral ?10 ? --------- LV e', medial ? 0.071 m/sec ?? --------- LV E/e', medial ? 11 ? --------- LV e', average ?0.077 m/sec ?? --------- LV E/e', average ?10 ? --------- Ventricular septum ?Value ?02/11/2016 Reference IVS thickness, ED, PLAX ? 1.1 ?? cm ? --------- LVOT ?Value ?02/11/2016 Reference LVOT ID, S ?2.0 ?? cm ? --------- LVOT area ? 3.1 ?? cm^2 ?? --------- Aorta ? Value ?02/11/2016 Reference Aortic root ID ?3.1 ?? cm ? --------- Ascending aorta ID, A-P ? 3.0 ?? cm ? --------- Ascending aorta ID, A-P, S ?3.0 ?? cm ? --------- Left atrium ? Value ?02/11/2016 Reference LA ID, A-P, ES ?3.9 ?? cm ? --------- LA ID/bsa, A-P ?1.7 ?? cm/m^2 <=2.2 LA volume, ES, 2-p ?58 ?ml ? --------- LA volume/bsa, ES, 2-p ?25 ?ml/m^2 --------- LA/aortic root ratio ?1.26 ? --------- Mitral valve ?Value ?02/11/2016 Reference Mitral E-wave peak velocity ? 0.8 ?? m/sec ?? --------- Mitral A-wave peak velocity ? 0.91 ??m/sec ?? --------- Mitral deceleration slope ? 334 ?? cm/s^2 --------- Mitral deceleration time ?(H) ? 239 ?? ms ? 150 - 230 Mitral pressure half-time ? 70 ?ms ? --------- Mitral peak gradient, D ? 2.6 ?? mm Hg ?? --------- Mitral E/A ratio, peak ?0.9 ? --------- Legend: (L) ??and ??(H) ??vic values outside sp ecified reference range. I have personally reviewed the images an d have reviewed and edited the reported findings. Electronically signed by Pete Dorsey MD 12/03/2018 09:57 Procedure Note Pete Garcia MD - 12/03/2018 *Interpreting Group:* *[facility]* [address] [place] [address] Date of study: 12/03/2018 Transthoracic Echocardiography M-mode, complete 2D, complete spectral D oppler, and color Doppler *STUDY CONCLUSIONS* Summary: 1. Left ventricle: The cavity size was n ormal. Wall thickness was normal. Systolic function was normal. T he estimated ejection fraction was 60%. Wall motion was normal; there were no diagnostic regional wall motion abnormalities. 2. Right ventricle: The cavity size was normal. Wall thickness was normal. Systolic function was normal. *PATIENT PRESENTATION* Height: 177.8cm (70in ) S/D Pressure: 114 / 63 Weight: 103kg (226.5lb ) BSA: 2.29m^2 Test start time: 08:37 AM. Test stop time: 09:12 AM. ADMITTING Chon Mckeon MD ATTENDING Birgit Dunn MD REFERRING Denise Hooker Aprn PERFORMING [facility], Ip ORDERING [employer] LIBRARY CIRCULATION ASSISTANT Michelle LaBarge *PROCEDURE DATA* Procedure information: The patient was i dentified by two identifiers. This study was interpreted by [facility] Card[facility]. Pertinent images and digital data are archived for permanent storage and are available for subsequent review. Study status: Routine. Transthoracic echocardiography. M-mode, complete 2D, complete spectral Doppler, and color Doppler. A T ransthoracic Echocardiogram was performed. Scanning was performed from [facility] parasternal, apical, subcostal, and suprasternal notch acoust ic windows. Images were obtained using an Epiq 10 cardiac ultrasound mach ine. Image quality was poor. The study was technically limited due to bod y habitus. Intravenous contrast (Definity) was administered by Michelle Corona NANY to enhance delineation of left ventricular endocard ial borders. Prior to administration at least two (2) contiguo us segments of the left ventricular border were not visualized. Definity amount administered was a total of 2ml. One vial was used. Study completion: The patient tolerated the procedure well. *INDICATIONS AND HISTORY* Indications: Unstable Angina - Intermedi ate Coronary Syndrome I20.0. *CARDIAC ANATOMY* Left ventricle: The cavity size was norm al. Wall thickness was normal. Systolic function was normal. The estima antonio ejection fraction was 60%. Wall motion was normal; there were no di agnostic regional wall motion abnormalities. Aortic valve: Trileaflet; normal thickne ss leaflets. Mobility was not restricted. Doppler: Transvalvular veloc ity was within the normal range. There was no stenosis. There was no significant regurgitation. Aorta: Aortic root: The aortic root was normal in size. Mitral valve: Structurally normal valve. Mobility was not restricted. Doppler: Transvalvular veloc ity was within the normal range. There was no evidence for stenosi s. There was no significant regurgitation. Peak gradient (D): 2.6mm Hg. Left atrium: The atrium was normal in si ze. Right ventricle: The cavity size was nor mal. Wall thickness was normal. Systolic function was normal. Pulmonic valve: Doppler: Transvalvular v elocity was within the normal range. There was no evidence for stenosis. There was no significant regurgitation. Tricuspid valve: Structurally normal tash ve. Doppler: Transvalvular velocity was within the normal range. Th ere was no evidence for stenosis. There was no significant regur gitation. Pulmonary artery: Systolic pressure coul d not be accurately estimated. Right atrium: The atrium was normal in s ize. Pericardium: There was no pericardial ef fusion. Systemic veins: Inferior vena cava: The vessel was merry l in size. The respirophasic diameter changes were in the normal rang e (greater than or equal to 50%), consistent with normal central [place] ous pressure. Measurements Left ventricle Value 02/11/2016 Referen ce LV ID, ED, PLAX 4.9 cm 3.5 - 6.0 LV ID, ES, PLAX 3.2 cm 2.1 - 4.0 LV PW thickness, ED, PLAX 1.1 cm ------ ---- --------- LV end-diastolic volume, 1-p 108 ml --- ------- --------- A2C LV ejection fraction, 1-p A2C 49 % 60 - -------- LV end-diastolic volume, 1-p 131 ml --- ------- --------- A4C LV ejection fraction, 1-p A4C 60 % 57 - -------- LV IVRT, DP 99 ms 60 - 100 LV e', lateral 0.084 m/sec - -------- LV E/e', lateral 10 -------- - LV e', medial 0.071 m/sec -- ------- LV E/e', medial 11 --------- LV e', average 0.077 m/sec - -------- LV E/e', average 10 -------- - Ventricular septum Value 02/11/2016 Ref erence IVS thickness, ED, PLAX 1.1 cm -------- -- --------- LVOT Value 02/11/2016 Reference LVOT ID, S 2.0 cm --------- LVOT area 3.1 cm^2 --------- Aorta Value 02/11/2016 Reference Aortic root ID 3.1 cm ------ --- Ascending aorta ID, A-P 3.0 cm -------- -- --------- Ascending aorta ID, A-P, S 3.0 cm ----- ----- --------- Left atrium Value 02/11/2016 Reference LA ID, A-P, ES 3.9 cm ------ --- LA ID/bsa, A-P 1.7 cm/m^2 <= 2.2 LA volume, ES, 2-p 58 ml --- ------ LA volume/bsa, ES, 2-p 25 ml/m^2 ------ ---- --------- LA/aortic root ratio 1.26 -- ------- Mitral valve Value 02/11/2016 Reference Mitral E-wave peak velocity 0.8 m/sec - --------- --------- Mitral A-wave peak velocity 0.91 m/sec --------- Mitral deceleration slope 334 cm/s^2 -- -------- --------- Mitral deceleration time (H) 239 ms --- ------- 150 - 230 Mitral pressure half-time 70 ms ------- --- --------- Mitral peak gradient, D 2.6 mm Hg ----- ----- --------- Mitral E/A ratio, peak 0.9 - -------- Legend: (L) and (H) vic values outside specifie d reference range. I have personally reviewed the images an d have reviewed and edited the reported findings. Electronically signed by Pete Dorsey MD 12/03/2018 09:[address] [facility] Phon e Number [facility] CARDIOLOGY [facility] (ABNORMAL) GLUCOSE, GLUCOMETER (12/03/2018 7:46 EDT) Glucose, 155 (H) 70 - 100 [facility] Fingerstick mg/dl LABORATORY SERVICES Swimmer [place] [id number]: [facility] Test Performed by LABORATORY Nursing Services SERVICES Specimen Blood Performing Organization Address [facility] Phon e Number [facility] LABORATORY [address] [place] [address] SERVICES HEPARIN LEVEL - UNFRACTIONATED HEPARIN (12/03/2018 5:41 EDT) Heparin Level-UFH 0.33 IU/mL [facility] Comment: LABORATORY SERVICES Unfractionated heparin therapeutic range = 0.3-0.7 IU/ ml This test is not intended for monitoring direct Xa inhibitors, direct thrombin inhibitors, or fondaparinux. Exogenous ATIII is NOT supplied in this assay. For unexpected or persistently low levels, consider measuring patient's ATIII level. Specimen Blood specimen (specimen) - Blood Performing Organization Address [facility]/ZIP [facility] Phon e Number [facility] LABORATORY [address] [place] [address] SERVICES BUN (12/03/2018 5:41 EDT) Pathologist Sig nature BUN 14 10 - 26 mg/dl [facility] LABORATO RY SERVICES Specimen Blood specimen (specimen) - Blood Performing Organization Address City/State/ZIP Code Phon e Number [facility] LABORATORY [address] [place] [address] SERVICES MAGNESIUM (12/03/2018 5:41 EDT) Pathologist Sig nature Magnesium 2.2 1.7 - 2.8 mg/dl [facility] LABORA TORY SERVICES Specimen Blood specimen (specimen) - Blood Performing Organization Address City/[facility]/ZIP Code Phon e Number [facility] LABORATORY [address] [place] [address] SERVICES CREATININE (12/03/2018 5:41 EDT) Creatinine 0.77 0.66 - 1.25 [facility] mg/dl LABORATORY SERVICES GFR, Calculated 96 >60 [facility] Comment: ml/min/1.73m2 LABORATORY eGFR calculated using CKD-EPI equation for SERVICES non Americans. Multiply eGFR by 1.16 for Americans. Specimen Blood specimen (specimen) - Blood Performing Organization Address [facility]/ZIP [facility] Phon e Number [facility] LABORATORY [address] [place] [phone] SERVICES COMPLETE BLOOD COUNT (12/03/2018 5:41 EDT) Pathologist Sig nature WBC 8.31 4.0 - 10.4 K/cmm [facility] LABORATORY SERVICES RBC 5.56 4.36 - 5.78 M/cmm [facility] LABORATORY SERVICES Hemoglobin 15.7 13.8 - 17.3 gm/dl [facility] LABORATORY SERVICES HCT 46.5 39.5 - 50.2 % [facility] LABORATORY SERVICES MCV 84 81 - 95 fl [facility] LABORATORY SERVICES MCH 28.2 27.6 - 33.0 pg [facility] LABORATORY SERVICES MCHC 33.8 32.8 - 36.4 gm/dl [facility] LABORATORY SERVICES RDW-CV 13.6 <14.2 % [facility] LABORATORY SERVICES RDW-SD 41.6 <46.0 fl [facility] LABORATORY SERVICES PLT 266 141 - 377 K/cmm [facility] LABORATORY SERVICES MPV 10.3 9.5 - 12.7 fl [facility] LABORATORY SERVICES Specimen Blood specimen (specimen) - Blood Performing Organization Address City/[facility]/ZIP Code Phon e Number [facility] LABORATORY [address] [place] [address] SERVICES ELECTROLYTES (12/03/2018 5:41 EDT) Pathologist Sig nature Sodium 136 136 - 145 mEq/L [facility] LABORA TORY SERVICES Potassium 4.5 3.5 - 5.0 mEq/L [facility] LABORA TORY SERVICES Chloride 97 96 - 110 mEq/L [facility] LABORAT ORY SERVICES CO2 28 22 - 32 mEq/L [facility] LABORATO RY SERVICES Specimen Blood specimen (specimen) - Blood Performing Organization Address [facility] Phon e Number [facility] LABORATORY [address] [place] [address] SERVICES HEMOGLOBIN A1C (12/03/2018 5:41 EDT) Hemoglobin A1C 7.0 % [facility] Comment: LABORATORY SERVICES Reference Range: <5.7% Normal 5.7-6.4% Prediabetes =>6.5% Diagnostic for diabetes (if confirmed) Goals for glycemic control in diabetes ADA 2017 For non adults with diabetes: ?? Target <7.0% For children and adolescents with type 1 diabetes: ?? Target <7.5% More or less stringent targets may be appropriate for individual patients. Est Avg Glucose 154 mg/dl [facility] Comment: LABORATORY SERVICES eAG represents the A1c result expressed as average glucose in mg/dl. Specimen Blood specimen (specimen) - Blood Performing Organization Address [facility]/ZIP [facility] Phon e Number [facility] LABORATORY [address] [place] [address] SERVICES HEPARIN LEVEL - UNFRACTIONATED HEPARIN (12/03/2018 1:09 EDT) Heparin Level-UFH 0.46 IU/mL [facility] Comment: LABORATORY SERVICES Unfractionated heparin therapeutic range = 0.3-0.7 IU/ ml This test is not intended for monitoring direct Xa inhibitors, direct thrombin inhibitors, or fondaparinux. Exogenous ATIII is NOT supplied in this assay. For unexpected or persistently low levels, consider measuring patient's ATIII level. Specimen Blood specimen (specimen) - Blood Performing Organization Address City/[facility]/ZIP [facility] Phon e Number [facility] LABORATORY [address] [place] [address] SERVICES INPATIENT ADD-ON (12/02/2018 19:35 EDT) Tests to be added TROPONIN [facility] LABORATORY SERVICES Number for problems [id number] [facility] LABORATORY SERVICES Accession number TROPI ALREADY [facility] PENDING ON ACC LABORATORY SERVICES NUMBER [id number] Specimen Other Performing Organization Address [facility]/ZIP Code Phon e Number [facility] LABORATORY [address] [place] [address] SERVICES (ABNORMAL) GLUCOSE, GLUCOMETER (12/02/2018 19:05 EDT) Glucose, 118 (H) 70 - 100 [facility] Fingerstick mg/dl LABORATORY SERVICES Swimmer [place] [id number]: [facility] Test Performed by LABORATORY Nursing Services SERVICES Specimen Blood Performing Organization Address City/[facility]/ZIP Code Phon e Number [facility] LABORATORY [address] [place] [address] SERVICES BUN (12/02/2018 18:37 EDT) Pathologist Sig nature BUN 14 10 - 26 mg/dl [facility] LABORATO RY SERVICES Specimen Blood specimen (specimen) - Blood Performing Organization Address [facility]/ZIP [facility] Phon e Number [facility] LABORATORY [address] [place] [address] SERVICES MAGNESIUM (12/02/2018 18:37 EDT) Pathologist Sig nature Magnesium 2.2 1.7 - 2.8 mg/dl [facility] LABORA TORY SERVICES Specimen Blood specimen (specimen) - Blood Performing Organization Address [facility]/ZIP [facility] Phon e Number [facility] LABORATORY [address] [place] [address] SERVICES CREATININE (12/02/2018 18:37 EDT) Creatinine 0.74 0.66 - 1.25 [facility] mg/dl LABORATORY SERVICES GFR, Calculated 97 >60 [facility] Comment: ml/min/1.73m2 LABORATORY eGFR calculated using CKD-EPI equation for SERVICES non Americans. Multiply eGFR by 1.16 for Americans. Specimen Blood specimen (specimen) - Blood Performing Organization Address City/[facility]/ZIP Code Phon e Number [facility] LABORATORY [address] [place] [address] SERVICES COMPLETE BLOOD COUNT (12/02/2018 18:37 EDT) Pathologist Sig nature WBC 10.26 4.0 - 10.4 K/cmm [facility] LABORATORY SERVICES RBC 5.58 4.36 - 5.78 [facility] Hemoglobin 15.7 13.8 - 17.3 gm/dl [facility] LABORATORY SERVICES HCT 46.5 39.5 - 50.2 % [facility] LABORATORY SERVICES MCV 83 81 - 95 fl [facility] LABORATORY SERVICES MCH 28.1 27.6 - 33.0 pg [facility] LABORATORY SERVICES MCHC 33.8 32.8 - 36.4 gm/dl [facility] LABORATORY SERVICES RDW-CV 13.5 <14.2 % [facility] LABORATORY SERVICES RDW-SD 41.3 <46.0 fl [facility] LABORATORY SERVICES PLT 297 141 - 377 K/[facility] LABORATORY SERVICES MPV 10.5 9.5 - 12.7 fl [facility] LABORATORY SERVICES Specimen Blood specimen (specimen) - Blood Performing Organization Address [facility] Phon e Number [facility] LABORATORY [address] [place] [address] SERVICES ELECTROLYTES (12/02/2018 18:37 EDT) Pathologist Sig nature Sodium 136 136 - 145 mEq/L [facility] LABORA TORY SERVICES Potassium 4.6 3.5 - 5.0 mEq/L [facility] LABORA TORY SERVICES Chloride 97 96 - 110 mEq/L [facility] LABORAT ORY SERVICES CO2 28 22 - 32 mEq/L [facility] LABORATO RY SERVICES Specimen Blood specimen (specimen) - Blood Performing Organization Address [facility] Phon e Number [facility] LABORATORY [address] [place] [address] SERVICES TROPONIN I (12/02/2018 18:37 EDT) Troponin I <0.034 <0.034 ng/ml [facility] (ng/mL) Comment: LABORATORY The results of this assay can be falsely SERVICES lowered due to the consumption of Biotin. Specimen Blood specimen (specimen) - Blood Performing Organization Address City/[facility]/ZIP Code Phon e Number [facility] LABORATORY [address] [place] [address] SERVICES EKG 12-LEAD (12/02/2018 18:08 EDT) Specimen Narrative [facility] EKG - 12/03/2018 13:4 2 EDT ? [facility] ? Test Date: ?2018-12-02 Pat Name: ? CLAUDIA BATISTA ? Department: ?? Min 5 ? Room: ? ME505 Gender: ? Male ? Bag Loader: ?? [id number] : ?1955 ? Requested By: ALEX FRIEDERIKE Order Number: [id number] ? Reading MD: ?? KENAN GORDON MD ? Measurements Intervals ?[place] ? Rate: ? 62 ? P: ?21 IL: ? 228 ?QRS: ?70 QRSD: ? 112 ?T: ?11 QT: ? 406 ? QTc: ?415 ? Interpretive Statements SINUS RHYTHM WITH FIRST DEGREE AV BLOCK MODERATE INTRAVENTRICULAR CONDUCTION DEL AY Compared to ECG 02/11/2016 12:39:08 No significant change I reviewed the tracing and have either a greed or edited the findings in this report. Electronically Signed On 12-04-19 13:42:36 EDT by KENAN GORDON MD. Procedure Note Kenan Gordon MD - 12/03/2018 [facility] Test Date: 2018-12-02 Pat Name: CLAUDIA BATISTA Department: [place] [address] Room: [facility] [place] [place] Gender: Male Bag Loader: [id number] : 1955 Requested By: ALEX ARMSTRONG Order Number: [id number] Reading MD: Mravin GORDON MD Measurements Intervals [place] Rate: 62 P: 21 IL: 228 QRS: 70 QRSD: 112 T: 11 QT: 406 QTc: 415 Interpretive Statements SINUS RHYTHM WITH FIRST DEGREE AV BLOCK MODERATE INTRAVENTRICULAR CONDUCTION DEL AY Compared to ECG 02/11/2016 12:39:08 No significant change I reviewed the tracing and have either a greed or edited the findings in this report. Electronically Signed On 12-04-19 13:42:36 EDT by KENAN GORDON MD. Performing Organization Address City/State/ZIP Code Phon e Number [facility] EKG documented in this encounter Visit Diagnoses Diagnosis NSTEMI (non-ST elevated myocardial infar ction) ([facility]) ([facility]) Acute myocardial infarction, subendocard ial infarction, episode of care unspecified Unstable angina ([facility]) ([facility]) Intermediate coronary syndrome Chest pain, unspecified type Coronary atherosclerosis Coronary atherosclerosis of unspecified type of vessel, [place] or graft Hyperlipidemia with target LDL less than 70 Other and unspecified hyperlipidemia Hypertensive disorder Unspecified essential hypertension Diabetes mellitus ([facility]) Type II or unspecified type diabetes [place] without mention of complication, not stated as uncontrolled Depression Depressive disorder, not elsewhere class ified documented in this encounter Administered Medications Inactive Administered Medications - up to 3 most recent administrations Medication Order MAR Action Action Date Dose Rate Site amLODIPine (NORVASC) tablet 10 mg Given 12/03/2018 8:33 EDT 10 mg 10 mg, oral, DAILY, First dose on Thu12/03/18 at 0900, Until Discontinued, Routine aspirin EC tablet 81 mg Given 12/03/2018 8:34 EDT 81 mg 81 mg, oral, DAILY, First dose on Thu12/03/18 at 0900, Until Discontinued, Routine clopidogrel (PLAVIX) tablet 600 mg Given 12/02/2018 19:37 EDT 600 mg 600 mg, oral, ONCE, 1 dose, Starting on Thu12/02/18 at 1818, Until Thu12/02/18 at 1937, Routine clopidogrel (PLAVIX) tablet 75 mg Given 12/03/2018 10:25 EDT 75 mg 75 mg, oral, DAILY, First dose on Thu12/03/18 at 1030, Until Discontinued, Routine dextrose 50 % solution 12.5 g 12.5 g (25 mL), intravenous, PRN, Starting on 12/02 at 1843, Until Thu12/03/18 at 2037, Low Blood Sugar, Routine fentaNYL citrate (PF) 50 mcg/mL injectio n 1 dose, Starting on Thu12/03/18 at 1423, Until 11/17 at 2037 fentaNYL citrate (PF) injection Given 12/03/2018 14:47 EDT 50 mcg intravenous, PRN, Starting on Thu12/03/18 at 1447, Until Thu12/03/18 at 1447, Routine glucagon injection 1 mg 1 mg, intramuscular, PRN, Starting on Thu12/02/18 at 1 843, Until Thu12/03/18 at 2037, Low blood sugar, Routine heparin 1,000 unit/mL injection 5,900 Given 12/02/2018 18:57 EDT 5,900 Units Units 5,900 Units (rounded from 5,887 Units = 70 Units/kg ? 84.1 kg Adjusted weight), intravenous, NOW X1, 1 dose, On Thu12/02/18 at 1845, STAT heparin 1,000 unit/mL injection 1 dose, Starting on Thu12/03/18 at 1423, Until 11/17 at 2037 heparin in 1/2 NS Rate Documented 12/03/2018 7:57 EDT 15 Units/kg/hr 12.7 mL/hr 25,000 unit/250 mL infusion 15 Units/kg/hr ? 84.5 kg Adjusted weight (12.675 mL/hr, rounded to 12.7 mL/hr), intravenous, at 12.7 mL/hr, CONTINUOUS, Starting on Thu12/02/18 at 1900, Until Thu12/03/18 at 1455, Routine Rate Documented 12/03/2018 0:00 EDT 15 Units/kg/hr 12.7 mL/hr Rate Documented 12/02/2018 19:39 EDT 15 Units/kg/hr 12.7 mL/hr insulin aspart U-100 (NOVOLOG FLEXPEN) Given 12/03/2018 7:57 EDT 3 Units injection subcutaneous, 3 TIMES DAILY WITH MEALS, First dose on Thu12/02/18 at 1915, Until Discontinued, Routine insulin glargine (LANTUS SOLOSTAR) injection Given 9:58 EDT 30 Units pen 30 Units 30 Units, subcutaneous, ONCE DAILY L.A. INSULIN, First dose (after last modification) on Thu12/03/18 at 1015, Until Discontinued, Routine lidocaine 20 mg/mL (2 %) injection 1 dose, Starting on Thu12/03/18 at 1423, Until 11/17 at 2037 lisinopril (PRINIVIL, ZESTRIL) tablet 5 mg Given 12/03/2018 8:34 EDT 5 mg 5 mg, oral, DAILY, First dose on Thu12/03/18 at 0900, Until Discontinued, Routine metoprolol XL (TOPROL-XL) tablet 150 mg Given 12/03/2018 8:34 EDT 150 mg 150 mg, oral, DAILY, First dose on Thu12/03/18 at 0900, Until Discontinued midazolam (PF) (VERSED) 1 mg/mL injectio n 1 dose, Starting on Thu12/03/18 at 1423, Until 11/17 at 2037 midazolam (PF) (VERSED) injection Given 12/03/2018 14:47 EDT 1 mg intravenous, PRN, Starting on Thu12/03/18 at 1447, Until Thu12/03/18 at 1447, Routine nitroglycerin 100 mcg/mL syringe 1 dose, Starting on Thu12/03/18 at 1423, Until 11/17 at 2037 rosuvastatin (CRESTOR) tablet 40 mg Given 12/02/2018 21:11 EDT 40 mg 40 mg, oral, AT BEDTIME, First dose on Thu12/02/18 at 2100, Until Discontinued, Routine sertraline (ZOLOFT) tablet 50 mg Given 12/02/2018 21:11 EDT 50 mg 50 mg, oral, AT BEDTIME, First dose on Thu12/02/18 at 2100, Until Discontinued, Routine sodium chloride 0.9 % (NS) infusion New Bag 12/03/2018 14:33 EDT 25 mL/hr 25 mL/hr intravenous, FA IP EQF CONTINUOUS PRN FOR ONE STEP MEDS, Starting on Thu12/03/18 at 1433, Until Thu12/03/18 at 1433, Routine sodium chloride 0.9 % flush 3 mL Given 12/03/2018 15:45 EDT 3 mL 3 mL, intravenous, EVERY 8 HOURS, First dose on Thu12/02/18 at 1815, Until Discontinued, Routine Given 12/03/2018 9:12 EDT 3 mL Given 12/02/2018 18:38 EDT 3 mL traZODone (DESYREL) tablet 50 mg Given 12/02/2018 21:11 EDT 50 mg 50 mg, oral, AT BEDTIME, First dose on Thu12/02/18 at 2100, Until Discontinued, Routine verapamil (ISOPTIN) 2.5 mg/mL injection 1 dose, Starting on Thu12/03/18 at 1423, Until 11/17 at 2037 documented in this encounter Discontinued Medications Medication Sig Discontinue Reason Start Date End Date AMITRIPTYLINE HCL Take 20 mg by mouth (AMITRIPTYLINE ORAL) at bedtime. Takes 2-10 mg tablets at bedtime dapagliflozin (FARXIGA) Take 5 mg by mouth 12/02/2018 5 mg tabletIndications: daily. FARXIGA metformin (GLUCOPHAGE) Take by mouth 2 times daily with meals. Restart Metformin Thu09/10/2009 12/02/2018 1,000 mg Take as previously prescribed Metformin 1000 mg in the morning and tabletIndications: type Metformin 500 mg each evenin g, Indications: TYPE 2 DIABETES MELLITUS 2 diabetes mellitus pramipexole (MIRAPEX) Take 0.125 mg by 0.125 mg tablet mouth. Reported on 09/09/2016 liraglutide (VICTOZA) Inject 1.8 mg into 12/03/2018 0.6 mg/0.1 mL (18 mg/3 the skin daily. mL) injectable pen documented as of this encounter Historical Medications This list may reflect changes made after this encounter. Medication Sig Dispensed Refills Start Date End Date metFORMIN (GLUCOPHAGE) Take 1,000 mg by 0 1,000 mg tablet mouth 2 times daily. added in this encounter Active and Recently Administered Medications Times are shown in EDT. Scheduled Medication Order 12/01/2018 12/02/2018 12/03/2018 amLODIPine (NORVASC) tablet 10 mg 0833 (Given - Provider: Juvenal Christiansen RN) 10 mg, oral, DAILY, First dose on Thu at 0900, Until Discontinued, Routine aspirin EC tablet 81 mg 0834 (Gi augustus - Provider: Juvenal Christiansen RN) 81 mg, oral, DAILY, First dose on Thu at 0900, Until Discontinued, Routine clopidogrel (PLAVIX) tablet 600 mg (COMPLETED) 193 (Given - Provider: Eric Brand RN) 600 mg, oral, ONCE, 1 dose, Starting Darlin 12/02/18 at 1818, Until Discontinued, Routine clopidogrel (PLAVIX) tablet 75 mg 1025 (Given - Provider: Juvenal Christiansen RN) 75 mg, oral, DAILY, First dose on Thu at 1030, Until Discontinued, Routine heparin 1,000 unit/mL injection 5,900 Units (COMPLETED) 185 (Given - Provider: [place] Mart RN) 5,900 Units (rounded from 5,887 Units = 70 Units/kg ? 84.1 kg Adjusted weight), intravenous, NOW X1, 1 dose, Darlin 12/02/18 at 1845, STAT insulin aspart U-100 (NOVOLOG FLEXPEN) injection 1905 (Not Given - Provider: [place] RN - Reason: Order parameters not met) 0757 (Given - Provider: Juvenal Christiansen RN)1150 (Not Given - Provider: Juvenal Christiansen RN - Reason: Order parameters not met)1601 (Not Given - Provider: Juvenal Christiansen RN - Reason: Order parameters not met) subcutaneous, 3 TIMES DAILY WITH MEALS, First dose on Thu12/02/18 at 1915, Until Discontinued insulin glargine (LANTUS SOLOSTAR) injection pen 30 Units 0958 (Given - Provider: Juvenal Christiansen RN) 30 Units, subcutaneous, ONCE DAILY L.A. INSULIN, First dose on Thu12/03/18 at 1015, Until Discontinued, Routine lisinopril (PRINIVIL, ZESTRIL) tablet 5 mg 833 (Given - Provider: Juvenal Christiansen RN) 5 mg, oral, DAILY, First dose on 11/17 at 0900, Until Discontinued, Routine metoprolol XL (TOPROL-XL) tablet 150 mg 833 (Given - Provider: Juvenal Christiansen RN) 150 mg, oral, DAILY, First dose on Thu12/03/18 at 0900, Until Di scontinued rosuvastatin (CRESTOR) tablet 40 mg 2110 (Given - Provider: Eric Brand RN) 40 mg, oral, AT BEDTIME, First dose on 12/02/18 at 2100, Until Discontinued, Routine sertraline (ZOLOFT) tablet 50 mg 2110 (Given - P rovider: Eric Brand RN) 50 mg, oral, AT BEDTIME, First dose on 12/02/18 at 2100, Until Discontinued, Routine sodium chloride 0.9 % flush 3 mL 1838 (Given - P juanviyogesh: [place] RN) 0028 (Not Given - Provider: Eric Brand RN - Reason: Other - Comment: infusing)0912 (Given - Provider: Juvenal Christiansen RN)1545 (Given - Provider: Juvenal Christiansen RN) 3 mL, intravenous, EVERY 8 HOURS, First dose on Thu12/02/18 at 1815, Until Discontinued, Routine traZODone (DESYREL) tablet 50 mg 2110 (Given - P rovider: Eric Brand RN) 50 mg, oral, AT BEDTIME, First dose on 12/02/18 at 2100, Until Discontinued, Routine Continuous Medication Order 12/01/2018 12/02/2018 12/03/2018 heparin in 1/2 NS 25,000 unit/250 mL infusion (CANCELED) 1857 (New Bag - Provider: [place], JANNY)1939 (Rate Documented - Provider: Eric Brand, RN) 0000 (Rate Documented - Provider: Jeremy Brand, JANNY)0757 (Rate Documented - Provider: Juvenal Christiansen, JANNY)1433 (Completed - Provider: Puja Live RN) 15 Units/kg/hr ? 84.5 kg Adjusted weight (12.675 mL/hr, rounded to 12.7 mL/hr), intravenous, at 12.7 mL/hr, CONTINUOUS, Starting Darlin 12/02/18 at 1900, Until Thu12/03/18 at 1455, Routine PRN Medication Order 12/01/2018 12/02/2018 12/03/2018 dextrose 50 % solution 12.5 g 12.5 g (25 mL), intravenous, PRN, Starti ng Thu12/02/18 at 1843, Until Thu12/03/18 at 2037, Low Blood Sugar, Routine fentaNYL citrate (PF) injection (COMPLETED) 1447 (Given - Provider: Hardeep Moralez, JANNY) intravenous, PRN, Starting Thu12/03/18 at 1447, Until Discontinu ed, Routine glucagon injection 1 mg 1 mg, intramuscular, PRN, Starting Darlin at 1843, Until Thu12/03/18 at 2037, Low blood sugar, Routine midazolam (PF) (VERSED) injection (COMPLETED) 1447 (Given - Provider: Hardeep Moralez RN) intravenous, PRN, Starting Thu12/03/18 at 1447, Until Discontinu ed, Routine nitroGLYCERIN (NITROSTAT) SL tablet 0.4 mg 0.4 mg, sublingual, EVERY 5 MIN PRN, Sta rting Thu12/02/18 at 1750, Until Thu12/03/18 at 2038, Chest Pain, Routine sodium chloride 0.9 % (NS) infusion (COMPLETED) 1433 (New Bag - Provider: Puja Live RN) intravenous, FA IP EQF CONTINUOUS PRN FO R ONE STEP MEDS, Starting Thu12/03/18 at 1433, Until Discontinued, Routine No Frequency Medication Order 12/01/2018 12/02/2018 12/03/2018 fentaNYL citrate (PF) 50 mcg/mL injection 1 dose, Starting Thu12/03/18 at 1423, Until Discontinued heparin 1,000 unit/mL injection 1 dose, Starting Thu12/03/18 at 1423, Until Discontinued lidocaine 20 mg/mL (2 %) injection 1 dose, Starting Thu12/03/18 at 1423, Until Discontinued midazolam (PF) (VERSED) 1 mg/mL injection 1 dose, Starting Thu12/03/18 at 1423, Until Discontinued nitroglycerin 100 mcg/mL syringe 1 dose, Starting Thu12/03/18 at 1423, Until Discontinued verapamil (ISOPTIN) 2.5 mg/mL injection 1 dose, Starting Thu12/03/18 at 1423, Until Discontinued documented in this encounter Orders Medications Ordered That Might Not Have Count Last Ord ered Date First Ordered Date Been Administered fentaNYL citrate (PF) 50 mcg/mL injection 1 2018 heparin 1,000 unit/mL injection 1 12/03/2018 insulin glargine (LANTUS SOLOSTAR) 2 12/03/2018 12/02/2018 injection pen 30 Units lidocaine 20 mg/mL (2 %) injection 1 12/03/2018 midazolam (PF) (VERSED) 1 mg/mL injection 1 2018 nitroglycerin 100 mcg/mL syringe 1 12/03/2018 verapamil (ISOPTIN) 2.5 mg/mL injection 1 12/04/19 19 aspirin chewable tablet 81 mg 1 12/02/2018 dextrose 50 % solution 12.5 g 1 12/02/2018 glucagon injection 1 mg 1 12/02/2018 heparin 1,000 unit/mL injection 2,900 1 12/02/2018 Units heparin 1,000 unit/mL injection 5,900 1 12/02/2018 Units heparin in 1/2 NS 25,000 unit/250 mL 1 12/02/2018 infusion nitroGLYCERIN (NITROSTAT) SL tablet 0.4 mg 2 12/02 Procedures Count Last Ordered Date First Ordered Date ECG REPORT - SCANNED 3 12/07/2018 12/05/2018 Diet Count Last Ordered Date First Ordered Date DISCHARGE DIET 3 12/03/2018 Nursing Count Last Ordered Date First Ordered Date ACTIVITY INSTRUCTIONS 1 12/03/2018 VTE PHARMACOLOGIC PROPHYLAXIS CURRENTLY 1 12/04/19 ORDERED OR ON ALTERNATIVE THER WOUND CARE INSTRUCTIONS 2 12/03/2018 MEASURE WEIGHT 1 12/02/2018 Admission Count Last Ordered Date First Ordered Date STATUS: INPATIENT ACUTE ADMISSION 1 12/02/2018 Transfer Count Last Ordered Date First Ordered Date NOTIFY PPS OF DISCHARGE COMPLETE 1 12/03/2018 UR PATIENT STATUS CHANGE 1 12/02/2018 Discharge Count Last Ordered Date First Ordered Date DISCHARGE PATIENT 1 12/03/2018 Legal Count Last Ordered Date First Ordered Date MISCELLANEOUS DISCHARGE INSTRUCTIONS 2 12/03/2018 documented in this encounter Care Teams Pipe Chipper Relationship Specialty Start Date End Date Denise Hooker APRN PCP - General 09/13/18 [address] [place] [address] documented as of this encounter
--- OUTSIDE RECORDS SUMMARY | 2022-02-21 01:12 | XMS_ITS | Encounter Summary ---
:1955 Author Organization [facility] Address [address] [place] [address] Care Team Providers Name Role Phone Gregoria Nicholas MD Primary Care Provider Reason for Visit Reason Onset Date Comments Letter for School/Work 04/18/2015 clearing for surg kelsi Encounter Details Date Type Department Care Team Description 04/18/2015 Telephone [facility] Broderick Galloway Let ter for School/Work Cardiology - Jenelle HAYES (clearing for surgery) [address] [place] [address] [place] [address] Social History Tobacco Use Types [...] Telephone Encounter - Mary Tanner RN - 04/18/[address] [place] Sheriff's office calling to request a letter from Dr. Galloway clearing patient for Shoulder Surgery. . Mary Tanner RN Letter generated Broderick Galloway MD Signed letter faxed as requested to Dr. Chinmay Sheriff's office # [phone] as requested. Ruthde aware as well. She confirmed receipt. Mary Tanner RN elephone Encounter - Muna Uriostegui - 04/18/2015 1126 EDT Reason for Call: Letter for School/Work Summary/Symptoms: Kymberly from Dr Chinmay Sheriff's office calling to request letter to clear pt for shoulder surgery. Please fax to [phone]. Please call with any questions. Muna Uriostegui 04/18/2015 11:28 documented in this encounter Plan of Treatment Upcoming Encounters Date Type Specialty Care Team Description 09/29/2022 Office Visit Gastroenterology and Shaq Phan, Hepatology [address] [facility], [address] [place] [phone] (Wo rk) documented as of this encounter Visit Diagnoses Not on filedocumented in this encounter Care Teams Marine Scientist Relationship Specialty Start Date End Date Gregoria Nicholas MD PCP - General 10/27/12 09/12/18 [address] [place] [address] documented as of this encounter
--- OUTSIDE RECORDS SUMMARY | 2022-02-21 01:12 | XMS_ITS | Encounter Summary ---
:1955 Author Organization [facility] Address [address] [place] [address] Care Team Providers Name Role Phone Denise Hooker APRN Primary Care Provider [phone] Encounter Details Date Type Department Care Team Description 11/29/2018 Orders Only [facility] Kavya Duarte FNP Jaw pain (Primary Dx); Cardiology - Main [address] 26 CAD in n ative artery [address] [address] [phone] Social History Tobacco Use Types Packs/Day Years [...] Visit Gastroenterology and Shaq Phan, Hepatology [address] [facility], [address] [place] [address] (Wo rk) documented as of this encounter Visit Diagnoses Diagnosis Jaw pain - Primary CAD in sh[place]ann[place] artery Coronary atherosclerosis of [place]ann[place] coron millie artery documented in this encounter Care Teams Slasher Runner Relationship Specialty Start Date End Date Denise Hooker, DIESEL STATIONARY ENGINEER PCP - General 09/13/18 [address] [place] [address] documented as of this encounter
--- OUTSIDE RECORDS SUMMARY | 2022-02-21 01:12 | XMS_ITS | Encounter Summary ---
:1955 Author Organization [facility] Address [address] [place] [address] Care Team Providers Name Role Phone Gregoria Nicholas MD Primary Care Provider Encounter Details Date Type Department Care Team Description 11/06/2015 Phlebotomy Only [facility] Activities Coordinator, Selina isidros [facility] Outpatient (Primary Dx) [address] [place], [place] [address] Social History Tobacco Use Types Packs/Day Years [...] Office Visit Gastroenterology and Shaq Phan, Hepatology MD [address] [facility] [place], [facility], [address] [place] [phone] (Wo rk) documented as of this encounter Procedures Procedure Name Priority Date/Time Associated Diagnosis Comme nts COMPLETE BLOOD Routine 11/06/2015 9:19 EDT Shortness of breath Results for this COUNT procedure are i n the results section. documented in this encounter Results HEMAGRAM (11/06/2015 9:19 EDT) Pathologist Sig nature WBC 8.44 4.0 - 10.4 K/cmm [facility] RBC 5.09 4.36 - 5.78 M/cmm [facility] Hemoglobin 14.2 13.8 - 17.3 gm/dl [facility] HCT 41.7 39.5 - 50.2 % [facility] MCV 82 81 - 95 fl [facility] MCH 27.9 27.6 - 33.0 pg [facility] MCHC 34.1 32.8 - 36.4 gm/dl [facility] RDW-CV 12.4 11.8 - 14.1 % [facility] RDW-SD 37.2 36.5 - 45.9 fl [facility] PLT 299 141 - 377 K/cmm [facility] MPV 10.8 9.5 - 12.7 fl [facility] Specimen Blood specimen (specimen) - Blood Performing Organization Address City/State/ZIP Code Phon e Number [facility] [address] [place] [address] SERVICES documented in this encounter Visit Diagnoses Diagnosis Shortness of breath - Primary documented in this encounter Care Teams Machine Egg Washer Relationship Specialty Start Date End Date Gregoria Nicholas MD PCP - General 10/27/12 09/12/18 [address] [place] [phone] documented as of this encounter
--- OUTSIDE RECORDS SUMMARY | 2022-02-21 01:12 | XMS_ITS | Encounter Summary ---
:1955 Author Organization [facility] Address [address] [place] [address] Care Team Providers Name Role Phone Denise Hooker APRN Primary Care Provider Reason for Visit Reason Onset Date Comments New Patient Visit 04/06/2019 Encounter Details Date Type Department Care Team Description 04/06/2019 Telephone [facility] Unknown, Provider, New Patient Visit Neurology - S Arcelia chi MD [address] [facility] [place] [address] [phone] Social History Tobacco Use Types Packs/Day Years [...] Notes Telephone Encounter - Akua Kyle - 04/07/2019 1133 EDT Patient called back and scheduled NPV with Yina at 05/19 at 1pm Sent letter and assigned referral elephone Encounter - Vashti Chau - 04/06/2019 1023 EDT LMOM to schedule NPV with Maggi Michel or Kolb documented in this encounter Plan of Treatment Upcoming Encounters Date Type Specialty Care Team Description 09/29/2022 Office Visit Gastroenterology and Shaq Phan, Hepatology [address] [facility], [address] [place] [address] (Wo rk) documented as of this encounter Visit Diagnoses Not on filedocumented in this encounter Care Teams Associate Technician Relationship Specialty Start Date End Date Denise Hooker APRN PCP - General 09/13/18 [address] [place] [address] documented as of this encounter
--- OUTSIDE RECORDS SUMMARY | 2022-02-21 01:12 | XMS_ITS | Encounter Summary ---
:1955 Author Organization [facility] Address [address] [place] [address] Care Team Providers Name Role Phone Denise Hooker APRN Primary Care Provider [phone] Reason for Visit Reason Comments Coronary Artery Disease 1 YR Encounter Details Date Type Department Care Team Description 09/14/2018 Office Visit [facility] Broderick Galloway Athero sclerosis of ute Cardiology - Jenelle Ansari MD coronary artery of ute [address] heart without angina [place], [place] [address] pectoris (Primary Dx) [address] [place] [address] [place] [phone] Social History Tobacco Use Types Packs/Day Years [...] Sign Reading Time Taken Comments Blood Pressure 118/60 09/14/2018 1025 EST Pulse 77 09/14/2018 1025 EST Temperature - - Respiratory Rate - - Oxygen Saturation 97% 09/14/2018 1025 EST Inhaled Oxygen Concentration - - Weight 104.3 kg (230 lb) 09/14/2018 1025 EST Height 175.3 cm (5' 9) 09/14/2018 1025 EST Body Mass Index 33.97 09/14/2018 1025 EST documented in this encounter Functional Status [...] encounter Progress Notes Broderick Galloway MD - 09/14/2018 1030 EST Subjective: Patient is a 62 y.o. male who presents for follow-up of CAD. Patient reports doing well. He denies chest [...] RCA; 2004 stents X2 ??? Diabetes mellitus ([facility]) oral agents ??? Diverticulitis ??? Hyperlipidemia ??? Hypertension ??? [place] (myocardial infarction) ([facility]) 1992, 2003 ??? Recurrent infections rt foot 5th toe Patient Active Problem List Diagnosis Date Noted ??? NSTEMI (non-ST elevated myocardial infarction) ([facility]) 02/10/2016 Priority: Medium ??? Coronary atherosclerosis 09/07/2009 ??? Hyperlipidemia with target LDL less than 70 09/07/2009 ??? Hypertensive disorder 09/07/2009 ??? Diabetes mellitus ([facility]) 09/07/2009 Current Outpatient Medications Medication Sig Dispense Refill ??? AMITRIPTYLINE HCL [...] the AM and 33 units in PM ??? liraglutide (VICTOZA) 0.6 [...] breakfast and dinner. ) 30 Tab 0 ??? METOPROLOL SUCCINATE ORAL [...] above, all others are negative. Objective: BP 118/60 Pulse 77 Ht 175.3 cm (69) Wt (!) 104.3 kg (230 lb) SpO2 97% BMI 33.97 kg/m?? Body mass index is 33.97 kg/m??. Physical Exam: General: Alert, cooperative, no [...] 60 02/11/2016 Assessment: Raul Trujillo is a 62 y.o. year old male who presents with cad stable Plan: Cont present rx documented in this encounter Plan of Treatment Upcoming Encounters Date Type Specialty Care Team Description 09/29/2022 Office Visit Gastroenterology and Shaq Phan, Hepatology [address] [facility], [address] [place] [address] (Wo rk) documented as of this encounter Visit Diagnoses Diagnosis Atherosclerosis of ute coronary arter y of ute heart without angina pectoris - Primary documented in this encounter Historical Medications This list may reflect changes made after this encounter. Medication Sig Dispensed Refills Start Date End Date traZODone (DESYREL) 50 mg Take 50 mg by mouth 0 tablet daily. exenatide microspheres Inject 2 mg into 0 (BYDUREON) 2 mg/0.65 mL the skin every 7 pen injector days. dapagliflozin (FARXIGA) 5 Take 5 mg by mouth 0 12/02/2018 mg tabletIndications: daily. FARXIGA added in this encounter Care Teams Final Inspector Balance Wheel Relationship Specialty Start Date End Date Denise Hooker APRN PCP - General 09/13/18 [address] [place] [address] documented as of this encounter
--- OUTSIDE RECORDS SUMMARY | 2022-02-21 01:12 | XMS_ITS | Encounter Summary ---
:1955 Author Organization [facility] Address [address] [place] [address] Care Team Providers Name Role Phone Gregoria Nicholas MD Primary Care Provider Encounter Details Date Type Department Care Team Description 03/27/2017 Results Only [facility] B[facility] Funez, DO [phone] [facility] [facility] [place] [address] (Wo rk) Social History Tobacco Use Types [...] Visit Gastroenterology and Shaq Phan, Hepatology [address] [facility] [address] [place] [address] (Wo rk) documented as of this encounter Procedures Procedure Name Priority Date/Time Associated Diagnosis Comme [facility] SURGICAL PATHOLOGY Routine 03/27/2017 19:34 Resul ts for this EDT procedure are i n the results section. documented in this encounter Results SURGICAL PATHOLOGY (03/27/2017 19:34 EDT) Pathology Report: SURGICAL PATHOLOGY REPORT [facility] Reports generated via electronic interface contain nacho ginal data; LABORATORY however they are lacking the format of the original re port. SERVICES Caution should be taken when reading/interpreting unfo rmatted reports. Name: ? RAUL BATISTA ? Accession #: ? [id number] ? : ? 1955 (Age: 5 2) ??M ? Collect Date: ? 03/27/2017 ? Location: ? [facility] ? Receive Date: ? 7 ? Provider: BARI FUNEZ DO Copy to: GREGORIA NICHOLAS MD ? Final Pathologic Diagnosis: A. COLON, ASCENDING POLYP, BIOPSY: - ??Tubular adenoma. ? B. COLON, TRANSVERSE POLYP, BIOPSY: - ??Tubular adenoma. C. COLON, DESCENDING POLYP, BIOPSY: - ??Tubular adenoma. Document reviewed and electronically signed by: LEONARDO WALSH MD Report ??Date: 03/30/2017 14:44 By the signature above, the attending physician certif ies that he/she has personally conducted a gross and/or microscopic examin ation of the described specimens and rendered or confirmed the above diagnosi s. Specimen(s) Received: A. ??Ascending colon polyp B. ??Transverse colon polyp C. ??Descending colon polyp Clinical History: Colorectal cancer scr; clinical diagnosis alejandro: Z12.11 Gross Description: A. ?Received in formalin labelled with proper p atient identification (initials M, G) and ascendi ng colon polyp is a single pink-rock tissue fragment (0.4 x 0.3 x 0.3 cm). Submitted intact in A1. B. ?Received in formalin labelled with proper p atient identification (initials M, G) and transve rse colon polyp are two pink-rock tissues (0.3 x 0.3 x 0.2 cm and 0.2 x 0.2 x 0.2 cm). Entirely submitted i n B1. C. ?Received in formalin labelled with proper p atient identification (initials M, G) and descending colon polyp is a sing le pink-rock tissue fragment (0.5 x 0.3 x 0.3 cm). Submitted intact in C1. Dr. Cope 03/28/2017 11:16 AM End of Report Specimen Performing Organization Address City/State/ZIP Code Phon e Number [facility] [address] [place] [address] SERVICES documented in this encounter Visit Diagnoses Not on filedocumented in this encounter Care Teams Core Rescuer Relationship Specialty Start Date End Date Gregoria Nicholas MD PCP - General 10/27/12 09/12/18 [address] [place] [address] documented as of this encounter
--- OUTSIDE RECORDS SUMMARY | 2022-02-21 01:12 | XMS_ITS | Encounter Summary ---
:1955 Author Organization [facility] Address [address] [place] [address] Care Team Providers Name Role Phone Gregoria Nicholas MD Primary Care Provider Reason for Visit Reason Onset Date Comments Letter for School/Work 02/18/2016 cleared to work Encounter Details Date Type Department Care Team Description 02/18/2016 Telephone [facility] Broderick Galloway Let ter for School/Work Cardiology - Jenelle HAYES (cleared to work) [address] [place] [address] [place] [address] Social History Tobacco Use Types [...] Telephone Encounter - Mary Tanner RN - 02/20/2016 1303 EDT Patient notified. Letter done. Faxed to [phone] as requested. He was satisfied with this. He questioned if disability paperwork was received. Advised there has been no sign of it yet. Will watch for it and keep him posted. Mary Tanner RN elephone Encounter - Kizzy Rincon RN - 02/18/2016 0958 EDT Pt would like a letter to clear him to go back to work Thanks elephone Encounter - Felisa Mesa - 02/18/2016 0840 EDT Pt requesting a letter be sent to his employer clearing him to work. Pt requesting this be done asapas he is awaiting to return to his full capacity. [email or web address] signed by Felisa Mesa at 02/18/2016 8:42 EDTdocumented in this encounter Plan of Treatment Upcoming Encounters Date Type Specialty Care Team Description 09/29/2022 Office Visit Gastroenterology and Shaq Phan, Hepatology [address] [facility], [facility], [facility] [address] [place] [address] (Wo rk) documented as of this encounter Visit Diagnoses Not on filedocumented in this encounter Care Teams Pierce And Shave Press Operator Relationship Specialty Start Date End Date Gregoria Nicholas MD PCP - General 10/27/12 09/12/18 [address] [place] [address] documented as of this encounter
--- OUTSIDE RECORDS SUMMARY | 2022-02-21 01:12 | XMS_ITS | Encounter Summary ---
:[address] [facility] Address [address] [place] [address] Care Team Providers Name Role Phone Gregoria Nicholas MD Primary Care Provider Encounter Details Date Type Department Care Team Description 03/27/2017 Hospital Encounter [facility], Provider, [facility] [address] [facility] [phone] [place] [address] (Work) [phone] Social History Tobacco Use Types Packs/Day Years [...] on 09/09/2016 documented as of this encounter Discharge Disposition Disposition Code Departure Means Destination Home or Self Fdc documented in this encounter Plan of Treatment Upcoming Encounters Date Type Specialty Care Team Description 09/29/2022 Office Visit Gastroenterology and Shaq Phan, Hepatology [address] [facility], [facility] [address] [place] [address] (Wo rk) documented as of this encounter Visit Diagnoses Not on filedocumented in this encounter Care Teams Sailor Relationship Specialty Start Date End Date Gregoria Nicholas MD PCP - General 10/27/12 09/12/18 [address] [place] [address] documented as of this encounter
--- OUTSIDE RECORDS SUMMARY | 2022-02-21 01:12 | XMS_ITS | Encounter Summary ---
:1955 Author Organization [facility] Address [address] [place] [address] Care Team Providers Name Role Phone Gregoria Nicholas MD Primary Care Provider Reason for Visit Reason Comments Coronary Artery Disease Encounter Details Date Type Department Care Team Description 11/06/2015 Office Visit [facility] Broderick Galloway ess of breath (Primary Dx); Cardiology - Jenelle Ansari MD Atherosclerosis of [place] coronary arter y of [place] heart without angina pectoris [I25.10] [address] [phone] Social History Tobacco Use Types Packs/Day Years [...] Reading Time Taken Comments Blood Pressure 120/60 11/06/2015 0848 EDT Pulse 64 11/06/2015 0848 EDT Temperature - - Respiratory Rate - - Oxygen Saturation - - Inhaled Oxygen Concentration - - Weight 109.8 kg (242 lb) 11/06/2015 0848 EDT Height 177.8 cm (5' 10) 11/06/2015 0848 EDT Body Mass Index 34.72 11/06/2015 0848 EDT documented in this encounter Functional Status [...] as of this encounter Discharge Diagnoses Diagnosis R06.02 Shortness of breath-R06.02[ICD-10 -CM] I25.10 Atherosclerotic heart disease of [place] coronary artery without angina pectoris-I25.10[ICD-10-CM] documented in this encounter Discharge Disposition Disposition Code Departure Means Destination Auto Discharge documented in this encounter Progress Notes Broderick Galloway MD - 11/06/2015 0910 EDT Subjective: Patient is a 59 y.o. male who presents for follow-up of CAD. Patient reports doing well. He denies chest pain on exertion and dyspnea on exertion. He describes his symptoms as not changed. 2 episodes of upper body/ neck pain associated w/ severe dyspnea and weakness He has been compliant with his medications. Medications side effects include none Past Medical History Diagnosis Date ??? CT (myocardial infarction) 1992, 2003 ??? CAD (coronary [...] or interrupt this medication withour discussing with personal injury law specialist Start this medication in one month. First [...] all others are negative. Objective: BP 120/60 mmHg Pulse 64 Ht 177.8 cm (70) Wt 109.77 kg (242 lb) BMI 34.72 kg/m2 Body mass index is 34.72 kg/(m^2). Physical Exam: General: Alert, cooperative, no [...] 110 09/08/2009 Assessment: Raul Trujillo is a 59 y.o. year old male who presents with worrisome exertional sxs though no evidence of inducible ischemia Plan: Check CBC Increase exercise documented in this encounter Plan of Treatment Upcoming Encounters Date Type Specialty Care Team Description 09/29/2022 Office Visit Gastroenterology and Shaq Phan, Hepatology 111 [facility], [facility], [address] [place] [address] (Wo rk) documented as of this encounter Results HEMAGRAM (11/06/2015 9:19 EDT) Pathologist Sig nature WBC 8.44 4.0 - 10.4 K/cmm [facility] RBC 5.09 4.36 - 5.78 M/cmm [facility] Hemoglobin 14.2 13.8 - 17.3 gm/dl [facility] HCT 41.7 39.5 - 50.2 % [facility] MCV 82 81 - 95 fl [facility] MCH 27.9 27.6 - 33.0 pg [facility] MCHC 34.1 32.8 - 36.4 gm/dl [facility] RDW-CV 12.4 11.8 - 14.1 % [facility] RDW-SD 37.2 36.5 - 45.9 fl [facility] PLT 299 141 - 377 K/cmm [facility] MPV 10.8 9.5 - 12.7 [facility] Specimen Blood specimen (specimen) - Blood Performing Organization Address City/State/ZIP Code Phon e Number [facility] [address] [place] [address] SERVICES documented in this encounter Visit Diagnoses Diagnosis Shortness of breath - Primary Atherosclerosis of [place] coronary arter y of [place] heart without angina pectoris [I25.10] documented in this encounter Care Teams Manager Media Relations Relationship Specialty Start Date End Date Gregoria Nicholas MD PCP - General 10/27/12 09/12/18 [address] [place] [phone] documented as of this encounter
--- OUTSIDE RECORDS SUMMARY | 2022-02-21 01:12 | XMS_ITS | Encounter Summary ---
:1955 Author Organization [facility] Address [address] [place] [address] Care Team Providers Name Role Phone Gregoria Nicholas MD Primary Care Provider Reason for Visit Reason Onset Date Comments Discuss Test Results 04/09/2015 Encounter Details Date Type Department Care Team Description 04/09/2015 Telephone [facility] Broderick Galloway, Malou cuss Test Results Cardiology - Jenelle HAYES [address] [address] [place] [address] (Wo rk) Social History Tobacco [...] this encounter Miscellaneous Notes Telephone Encounter - Kizzy Rincon RN - 04/10/2015 1320 EDT Stress ecco looks fine Broderick Galloway MD Left message on personal phone Stress echo looks fine. Pt can call the office if have has any questions. elephone Encounter - Kizzy Rincon RN - 04/10/2015 1037 EDT Please review stress test results Thanks elephone Encounter - Arabella Torres - 04/09/2015 1538 EDT Reason for Call: Discuss Test Results Summary/Symptoms: Pt looking for 04/03 stress test results. Arabella Torres 04/09/2015 15:38 documented in this encounter Plan of Treatment Upcoming Encounters Date Type Specialty Care Team Description 09/29/2022 Office Visit Gastroenterology and Shaq Phan, Hepatology [address] [place] [address], [address] [place] [phone] (Wo rk) documented as of this encounter Visit Diagnoses Not on filedocumented in this encounter Care Teams Glassware Maker Relationship Specialty Start Date End Date Gregoria Nicholas MD PCP - General 10/27/12 09/12/18 [address] [place] [address] documented as of this encounter
--- OUTSIDE RECORDS SUMMARY | 2022-02-21 01:12 | XMS_ITS | Encounter Summary ---
:1955 Author Organization [facility] Address [address] [place] [address] Care Team Providers Name Role Phone Gregoria Nicholas MD Primary Care Provider Reason for Visit Reason Comments Coronary Artery Disease Hypertension Hyperlipidemia Fatigue Follow Up (Routine/Next Available) - Closed Specialty Diagnoses / Procedures Referred By Contact Refer red To Contact Cardiology Diagnoses NSTEMI (non-ST elevated myocardial infarction) ([facility]) ([facility]) Broderick Galloway MD Terrien, Edward F, MD [address] [facility] [address] [place] [phone] Fax: Referral ID Status Reason Start Date Expiration Date Visits V isits Requested Authorized [id number] Closed Specialty 02/12/2016 1 1 Services Required Encounter Details Date Type Department Care Team Description 03/11/2016 Office Visit [facility] Broderick Galloway Athero sclerosis of [place] Cardiology - Jenelle Ansari MD coronary artery of [place] [address] [place] [address] [address] [facility] heart without angina [place], [place] [address] pectoris (Primary Dx) [address] [place] [address] [place] [address] Social History Tobacco Use Types [...] Sign Reading Time Taken Comments Blood Pressure 132/70 03/11/2016900 EDT Pulse 76 03/11/2016900 EDT Temperature - - Respiratory Rate - - Oxygen Saturation 98% 03/11/2016900 EDT Inhaled Oxygen Concentration - - Weight 108.4 kg (239 lb) 03/11/2016900 EDT Height 175.3 cm (5' 9) 03/11/2016900 EDT Body Mass Index 35.29 03/11/2016900 EDT documented in this encounter Functional Status [...] encounter Progress Notes Broderick Galloway MD - 03/11/2016 0915 EDT Subjective: Patient is a 60 y.o. male who presents for follow-up of cad. Patient reports occasional fatigue, rehab going well. He denies chest pain on exertion and dyspnea on exertion. He describes his symptoms asimproved. He has been compliant with his medications. Medications side effects include none Past Medical History Diagnosis Date ??? CAD (coronary artery disease) 2--10 PCI LAD prox MARY, LAD mid MARY, LAD distal BMS; 09-07-09 PCI MARY X 3 RCA; 2004 stents X2 ??? Diabetes mellitus oral agents ??? Diverticulitis ??? Hyperlipidemia ??? Hypertension ??? [place] (myocardial infarction) 1992, 2003 ??? Recurrent infections rt foot [...] are negative. Objective: Visit Vitals ??? BP 132/70 ??? Pulse 76 ??? Ht 175.3 cm (69) ??? Wt (!) 108.4 kg (239 lb) ??? SpO2 98% ??? BMI 35.29 kg/m2 Body mass index is 35.29 kg/(m^2). Physical Exam: General: Alert, cooperative, no [...] 60 02/11/2016 Assessment: Raul Trujillo is a 60 y.o. year old male who presents with cad s/p recent pci for USAP Plan: Cont present rx documented in this encounter Plan of Treatment Upcoming Encounters Date Type Specialty Care Team Description 09/29/2022 Office Visit Gastroenterology and Shaq Phan, Hepatology 111 [facility], [facility], [facility] [address] [place] [address] (Wo rk) documented as of this encounter Visit Diagnoses Diagnosis Atherosclerosis of [place] coronary arter y of [place] heart without angina pectoris - Primary documented in this encounter Care Teams Electron Gun Inspector Relationship Specialty Start Date End Date Gregoria Nicholas MD PCP - General 10/27/12 09/12/18 [address] [place] [address] documented as of this encounter
--- OUTSIDE RECORDS SUMMARY | 2022-02-21 01:12 | XMS_ITS | Encounter Summary ---
:1955 Author Organization [facility] Address [address] [place] [address] Care Team Providers Name Role Phone Gregoria Nicholas MD Primary Care Provider Reason for Visit Reason Onset Date Comments Appointment Related 08/31/2015 Encounter Details Date Type Department Care Team Description 08/31/2015 Telephone [facility] Leggett RN Appointment Related Non-Invasive 111 [facility] Cardiology [address] [place] [address] Social History Tobacco Use Types Packs/Day Years [...] this encounter Miscellaneous Notes Telephone Encounter - Puja Leggett RN - 08/31/2015 1124 EST Spoke with patient and gave instructions for stress test, patient reminded to wear comfortable clothing and shoes to walk on a treadmill and do not apply any lotions or creams to the chest and abdomen areas. Patient aware of campus, date and time. documented in this encounter Plan of Treatment Upcoming Encounters Date Type Specialty Care Team Description 09/29/2022 Office Visit Gastroenterology and Shaq Phan Hepatology 111 [facility], [facility], [address] [place] [address] (Wo rk) documented as of this encounter Visit Diagnoses Not on filedocumented in this encounter Care Teams Channel Installer Relationship Specialty Start Date End Date Gregoria Nicholas MD PCP - General 10/27/12 09/12/18 [address] [place] [address] documented as of this encounter
--- OUTSIDE RECORDS SUMMARY | 2022-02-21 01:12 | XMS_ITS | Encounter Summary ---
:1955 Author Organization [facility] Address [address] [place] [address] Care Team Providers Name Role Phone Gregoria Nicholas MD Primary Care Provider Reason for Visit Reason Comments Other cardiac clearance for should er surgery Coronary Artery Disease Encounter Details Date Type Department Care Team Description 03/27/2015 Office Visit [facility] Broderick Galloway atherosclerosis Cardiology - Jenelle Ansari MD of unspecified type of [address] vessel, [place] or graft [place], [place] [address] (Primary Dx) [id number] [place] [address] [place] [phone] Social History Tobacco Use Types Packs/Day Years [...] Sign Reading Time Taken Comments Blood Pressure 144/60 03/27/2015 1337 EDT Pulse 68 03/27/2015 1337 EDT Temperature - - Respiratory Rate - - Oxygen Saturation - - Inhaled Oxygen Concentration - - Weight 111.6 kg (246 lb) 03/27/2015 1337 EDT Height 177.8 cm (5' 10) 03/27/2015 1337 EDT Body Mass Index 35.3 03/27/2015 1337 EDT documented in this encounter Functional Status [...] encounter Progress Notes Broderick Galloway MD - 03/27/2015 1351 EDT Subjective: Patient is a 59 y.o. male who presents for follow-up of cad. Patient reports doing well. He denies chest pain on exertion and dyspnea on exertion. He describes his symptoms as not changed. He has been compliant with his medications. Medications side effects include none Past Medical History Diagnosis Date ??? [place] (myocardial infarction) 1992, 2003 ??? CAD (coronary [...] or interrupt this medication withour discussing with shipping assistant Start this medication in one month. First [...] above, all others are negative. Objective: BP 144/60 mmHg Pulse 68 Ht 177.8 cm (70) Wt 111.585 kg (246 lb) BMI 35.30 kg/m2 Body mass index is 35.3 kg/(m^2). Physical Exam: General: Alert, cooperative, no [...] 52 09/08/2009 LDLBASE 110 09/08/2009 Assessment: Raul Batista is a 59 y.o. year old male who presents with cad/ s/p stenting in 2009. No sxs, but considering shoulder surgery Plan: Stress echo documented in this encounter Plan of Treatment Upcoming Encounters Date Type Specialty Care Team Description 09/29/2022 Office Visit Gastroenterology and Shaq Phan, Hepatology 111 [facility], [facility] [address] [place] [address] (Wo rk) documented as of this encounter Procedures Procedure Name Priority Date/Time Associated Diagnosis Comme nts TREADMILL STRESS 04/03/2015 10:13 Results for this ECHO WAVEFORM EDT procedure are in the results section. documented in this encounter Results TREADMILL STRESS ECHO WAVEFORM (04/03/2015 10:13 EDT) Specimen Narrative [facility] EKG - 04/03/2015 11:0 1 EDT For report of this Waveform, see associated Image Study. ? [facility] Stress ? Test Date: ?2015-04-03 Pat Name: ? RAUL BATISTA ? Department: ? Room: ? Gender: ? M ?Mobile Battery Technician: ?? : ?1955 ? Requested By: KIERRA Ansari Order Number: [id number] ?Messi HAYES: ? Interpretive Statements Procedure Note ECOLOGIST, IMAGING - 04/03/2015 For report of this Waveform, see jose alvarez Image Study. [facility] Stress Test Date: 2015-04-03 Pat Name: RAUL BATISTA Department: Room: Gender: M Mobile Battery Technician: : 1955 Requested By: KIERRA Ansari Order Number: [id number] Messi HAYES: Interpretive Statements Performing Organization Address City/State/ZIP Code Phon e Number [facility] EKG documented in this encounter Visit Diagnoses Diagnosis Coronary atherosclerosis of unspecified type of vessel, [place] or graft - Primary documented in this encounter Historical Medications This list may reflect changes made after this encounter. Medication Sig Dispensed Refills Start Date End Date ERGOCALCIFEROL, VITAMIN D2, Take by mouth daily 0 (VITAMIN D ORAL) added in this encounter Care Teams Distance Education Teacher Relationship Specialty Start Date End Date Gregoria Nicholas MD PCP - General 10/27/12 09/12/18 [address] [place] [address] documented as of this encounter
--- OUTSIDE RECORDS SUMMARY | 2022-02-21 01:12 | XMS_ITS | Encounter Summary ---
:[address] [facility] Address [address] [place] [address] Care Team Providers Name Role Phone Gregoria Nicholas MD Primary Care Provider Reason for Visit Reason Comments Coronary Artery Disease Hypertension Hyperlipidemia Encounter Details Date Type Department Care Team Description 11/01/2013 Office Visit [facility] Broderick Galloway atherosclerosis Cardiology - Jenelle Ansari MD of unspecified type of [address] vessel, [place] or graft [place], [place] [address] (Primary Dx) [address] [place] [address] [place] [phone] Social History Tobacco Use Types Packs/Day Years [...] Sign Reading Time Taken Comments Blood Pressure 132/68 11/01/2013 0900 EDT Pulse 68 11/01/2013 0900 EDT Temperature - - Respiratory Rate - - Oxygen Saturation - - Inhaled Oxygen Concentration - - Weight 109.7 kg (241 lb 12.8 oz) 11/01/2013 0900 EDT Height 176.5 cm (5' 9.5) 11/01/2013 09 EDT Body Mass Index 35.2 11/01/2013 09 EDT documented in this encounter Functional Status Cognitive Status Response Date of Assessment Because of a physical, mental, or emotional condition, do Ye s 09/09/2009 you have serious difficulty concentrating, remembering, or making decisions? (5 years old or older) documented as of this encounter Discharge Diagnoses Diagnosis 414.00 CORONARY ATHEROSCLER UNSPEC VESSE L[ICD-9-CM] documented in this encounter Progress Notes Broderick Galloway MD - 11/01/2013 0908 EDT Subjective: Patient is a 57 y.o. male who presents for follow-up of cad. Patient reports doing well. He denies chest pain on exertion and dyspnea on exertion. He describes his symptoms as not changed. He has been compliant with his medications. Medications side effects include none Past Medical History Diagnosis Date ??? [place] (myocardial infarction) 1992, 2003 ??? CAD (coronary [...] or interrupt this medication withour discussing with medicare nurse Start this medication in one month. First [...] above, all others are negative. Objective: BP 132/68 Pulse 68 Ht 176.5 cm (69.5) Wt 109.68 kg (241 lb 12.8 oz) BMI 35.21 kg/m2 Body mass index is 35.21 kg/(m^2). Physical Exam: General: Alert, cooperative, no [...] 110 09/08/2009 Assessment: Raul Trujillo is a 57 y.o. year old male who presents with cad, s/p PCI x multi vessels Plan: Cont present rx documented in this encounter Plan of Treatment Upcoming Encounters Date Type Specialty Care Team Description 09/29/2022 Office Visit Gastroenterology and Shaq Phan, Hepatology 111 [facility], [address] [place] [address] (Wo rk) documented as of this encounter Visit Diagnoses Diagnosis Coronary atherosclerosis of unspecified type of vessel, [place] or graft - Primary documented in this encounter Discontinued Medications Medication Sig Discontinue Reason Start Date End Date simvastatin (ZOCOR) 80 Take 80 mg by Patient Stopped Taking 11/01/2013 mg tablet mouth at bedtime. documented as of this encounter Historical Medications This list may reflect changes made after this encounter. Medication Sig Dispensed Refills Start Date End Date rosuvastatin (CRESTOR) 40 Take 40 mg by mouth 0 mg tablet daily. added in this encounter Care Teams Head Grower Relationship Specialty Start Date End Date Gregoria Nicholas MD PCP - General 10/27/12 09/12/18 [address] [place] [address] documented as of this encounter
--- OUTSIDE RECORDS SUMMARY | 2022-02-21 01:13 | XMS_ITS | Encounter Summary ---
:1955 Author Organization Department of [facility] rs Address [address] [place] [address] Support Name Relationship Address Phone ANA JOYNER Unavailable [address] [place] [address] LESTERMARY Unavailable [address] [place] [address] ANDREINA SULTANA Unavailable [address] [place] [address] WANDA BATISTA Unavailable [address] [place] [address] Insurance Providers: All historical and current Section Date Range: From patient's date of to the date document was created.This section includes the names of all active insurance providers for the patient. Insurance Type of Plan Start of End of Group Member Insurance Policy P atient's Provider Coverage Name Policy Policy Number ID Provider's Vu's Relationship Coverage Coverage Telephone Name to Policy Number Vu CBA [facility] Jul 20 [id number] [phone] DANIEL BATISTA O PATIENT DEDUCTIBL SADIE 2009 [id number] RGE E HEALTH HDHP PLAN EXPRESS PRESCRIPT Jul 20, RXBWEID [id number] [phone] SRINIVAS BATISTA PATIENT SCRIPTS ION [id number] RGE ([id number]) RESTAT PRESCRIPT CBA November 17, 2820 [id number] [phone] Luis BATISTA EO PATIENT I[place] BLUE [id number] RGE Selected Encounter This section includes the information on record at [place] for the Encounter. Date/Time Encounter Type Encounter Reason Provider Source Description Oct 15, 2021 OFFICE O/P NEW PRIMARY ICD-10-CM R10.10 FRIDA ORTIZ 09:00 AM MOD 45-59 MIN CARE/MEDICINE Upper abdominal YN M pain, unspecified with Provider Comments: Upper Abdominal Pain, unspecified IHE Encounter Template Text not used by [facility] Assessments - Encounter Diagnoses This section includes the primary and secondary diagnoses documented for the Encounter. Date/Time Primary/Secondary Diagnosis Name Provider Source Diagnosis Oct 15, 2021 PRIMARY Upper abdominal CALENDINE,FRIDA [place] 09:47 AM pain, unspecified A[facility]LEY [facility] [place] [facility] Oct 15, 2021 SECONDARY Athscl heart disease CALENDINE,FRIDA [place] 09:47 AM of augustine coronary ASHLEY M [facility] artery w/o ang pctrs Oct 15, 2021 SECONDARY Essential (primary) CALENDINE,FRIDA [place] 09:47 AM hypertension ASHLEY M [facility] Oct 15, 2021 SECONDARY Fatty (change of) CALENDINE,FRIDA [place] 09:47 AM liver, not elsewhere ASHLEY M [facility] classified Oct 15, 2021 SECONDARY Insomnia, CALENDINE,FRIDA [place] 09:47 AM unspecified ASHLEY M [facility] Oct 15, 2021 SECONDARY Osteoarthritis of CALENDINE,FRIDA [place] 09:47 AM hip, unspecified ASHLEY M [facility] Oct 15, 2021 SECONDARY Type 2 diabetes CALENDINE,FRIDA [place] 09:47 AM mellitus without ASHLEY M [facility] complications Plan of Treatment: Future Appointments (+ 6 months) and Future Tests (+/- 45 days) The Plan of Treatment section includes future care activities for the patient from all [place] treatmentfacilities. This section includes future appointments and future orders which are active, pending orscheduled.Future Appointments This section includes appointments that were scheduled to occur 6 months from the date of the Encounter, up to a maximum of 20 appointments. The data comes from all [place] treatment facilities. Appointment Date/Time Appointment Type Appointment Facili ty Name Nov 01, 2021 08:00 AM AMBULATORY - NONE [facility] Apr 11, 2022 10:15 AM AMBULATORY - NONE [facility] Apr 14, 2022 08:30 AM AMBULATORY - NONE Johan RAMOS PT [facility] Lab Results: +/- 30 days of the encounter This section includes the Chemistry and Hematology Lab Results on record with [place] for the patient. Radiology Reports and Pathology Reports are provided separately, in subsequent sections.Lab Results This section contains the Chemistry/Hematology Results that were resulted 30 days before or 30 daysafter the date of the Encounter. Date/Time Source Result Type Result - Unit Interpretation Reference Range Comment Oct 11, 2021 08:07 [facility] CBC (AUTO DIFF) Specimen T ype: BLOOD AM CLINIC No comment enter ed. Ordering Provid er: WARNER ORTIZ Report Released Date/Time: Aug 26, 2021 11:02 AM Reporting Lab: [facility]an [facility] [address] [address] Performing Lab: Johan [facility] [address] [address] WBC 7.2 4.00-10.60 RBC 5.17 4.23-5.75 HGB 14.9 12.8-17.0 HCT 45.1 39.3-50.0 MCV 87.2 79.7-99.5 MCH 28.8 25.5-33.6 MCHC 33.0 30.9-35.1 PLT 248 160-410 RDWSD 42.6 37.1-49.0 MPV 10.4 8.9-12.3 NRBC# 0.00 0.00-0.12 NRBC% 0.0 0.0-0.2 NE# 4.32 2.2-7.4 LY# 2.16 1.0-3.7 MO# 0.57 0.3-0.9 EO# 0.08 0.0-0.5 BA# 0.05 0.0-0.1 NE% 60.0 39.3-73.5 LY% 30.0 16.2-48.2 MO% 7.9 5.2-11.4 EO% 1.1 0.4-7.6 BA% 0.7 0.1-1.2 IMM GRAN# 0.02 0.0-0.1 IMM GRAN% 0.3 0.0-0.7 CBC COMPLETE DONE Oct 11, 2021 [facility] COMPREHENSIVE METABOLIC Speci men Type: PLASMA 08:07 AM CLINIC PANEL Comment: See EV AL Ordering Provid er: WARNER ORTIZ Report Released Date/Time: Aug 26, 2021 11:02 AM Reporting Lab: [facility] [address] [address] Performing Lab: Johan [facility] [address] [address] SODIUM 138 136-144 POTASSIUM 4.3 3.6-5.1 CHLORIDE 101 98-107 CARBON DIOXIDE 28 22-32 ANION GAP 9 4-13 GLUCOSE 155 H 72-105 UREA NITROGEN 11 7-25 CREATININE 0.76 0.7-1.3 CALCIUM 9.9 8.6-10.4 TOTAL PROTEIN 7.5 6.0-8.2 ALBUMIN 4.3 3.5-5.0 ALKALINE PHOSPHATASE 82 35-104 AST 57 H 13-36 ALT 74 H 7-49 BILIRUBIN,TOTAL 0.7 0.2-1.3 eGFR (CKD-EPI 2020) >=90 See EVAL Oct 11, 2021 [facility] URINALYSIS, REFLEX C&S Specim en Type: URINE 08:07 AM CLINIC IF INDICATED No comment enter ed. Ordering Provid er: WARNER ORTIZ Report Released Date/Time: Aug 26, 2021 11:02 AM Reporting Lab: [facility]an [facility] [address] [address] Performing Lab: Johan [facility] [address] [address] URINE COLOR Yellow Yellow SPECIFIC GRAVITY 1.018 1.001-1.035 URINE PH 6 5.0-7.0 URINE RBC/HPF 1 0-3 CLARITY CLEAR CLEAR URINE BLOOD Negative Negative URINE LEUKOCYTE ESTERASE Negative Negat [facility] URINE PROTEIN Negative Negative URINE GLUCOSE >=500 H Negative URINE KETONES Negative Negative URINE BILIRUBIN Negative Negative URINE NITRITES Negative Negative UROBILINOGEN (mg) Negative <=1.0 Oct 11, 2021 [facility] PROSTATIC SPECIFIC Specimen T ype: SERUM 08:07 AM CLINIC ANTIGEN Comment: FREE P SA NOT INDICATED IF TOTAL PSA IS <3.75 OR >10.5 ng/mL Ordering Provid er: WARNER ORTIZ Report Released Date/Time: Aug 26, 2021 11:02 AM Reporting Lab: [facility] [address] [address] Performing Lab: Johan [facility] [address] [address] PROSTATIC SPECIFIC ANTIGEN 0.4 0.0 -4.0 Oct 11, 2021 08:07 [facility] TSH SCREEN PANEL Specimen Type: SERUM AM CLINIC Comment: FREE P SA NOT INDICATED IF TOTAL PSA IS <3.75 OR >10.5 ng/mL Ordering Provid er: WARNER ORTIZ Report Released Date/Time: Aug 26, 2021 11:02 AM Reporting Lab: Joh[facility] [address] [address] Performing Lab: Johan [facility] [address] [address] TSH SCREEN 1.54 0.46-3.59 Oct 11, 2021 [facility] LIPID PANEL A, Specimen Type : PLASMA 08:07 AM CLINIC non-fasting Comment: See EV AL Ordering Provid er: WARNER ORTIZ Report Released Date/Time: Aug 26, 2021 11:02 AM Reporting Lab: Joh[facility] [address] [address] Performing Lab: Johan [facility] [address] [address] CHOLESTEROL 154 HDL CHOLESTEROL 39 LDL CHOLESTEROL 94 TC/HDL CHOLESTEROL RATIO 3.9 Oct 11, 2021 08:07 AM [facility] CLINIC HGB A1C Specimen Type: BLOOD No comment enter ed. Ordering Provid er: WARNER ORTIZ Report Released Date/Time: Aug 26, 2021 11:02 AM Reporting Lab: [facility] [address] [address] Performing Lab: Johan [facility] [address] [address] HGB A1C 7.3 H 4.2-6.2 Oct 11, 2021 08:07 [facility] VITAMIN B12 Specimen T ype: SERUM AM CLINIC No comment enter ed. Ordering Provid er: WARNER ORTIZ Report Released Date/Time: Aug 26, 2021 11:02 AM Reporting Lab: Johan [facility]UNIGA DE[facility] OF [address] [place] [address] Performing Lab: Johan ZUNIGA [facility] [address] [facility] [address] VITAMIN B12 [phone] Social History: Smoking Status (Most current) and Tobacco Use (All prior to encounter date) This section includes the most current, and the historical, smoking and tobacco-related health factors from the [place] facility where the Encounter took place.Current Smoking Status This section includes the most current smoking, or tobacco-related health factor, from the [place] facility where the Encounter took place. Date/Time Current Smoking Status Comment Facility Oct 15, 2021 09:00 AM IN-TOBACCO FORMER USER POR T [facility] Tobacco Use History This section includes a history of the smoking, or tobacco- related health factors, that were collected on or before the date of the Encounter. The data comes from the [place] facility where the Encounter took place. Date/Time Smoking Status/Tobacco Use Comment [facility] Oct 15, 2021 09:00 AM IN-TOBACCO QUIT 15 YRS OR MORE [facility] Advance Directives: All historical and current Section Date Range: From patient's date of to the date document was created. This section includes ALL of a patient's completed or amended [place] Advance and Rescinded Directives. The entries below indicate that a directive exists for the patient, but an actual copy is not included with this document. The data comes from all [place] facilities. Date Advance Directives Provider Source November 23, 2017 ADVANCE DIRECTIVE JOI DEVRIES [facility] Radiology Reports: +/- 30 days of the encounter Radiology Reports For cases when an order for radiology services may have been completed prior to the date of the Encounter, the report list includes the Radiology Reports that were completed up to 30 days before date of the Encounter. For cases when an order for radiology services may have been completed after the date of the Encounter, the report list also includes the Radiology Reports that were completed up to 30days after date of the Encounter. The data comes from all [place] treatment facilities. Date/Time Radiology Report Provider Source Nov 01, 2021 07:12 GASTRIC EMPTYING SCAN: PEDRO WOLFF [facility] XIOMARA CLAUDIA BATISTA Elan [id number] -1955 CLINIC Exm Date: NOV 01, 2021@07:12 Req Phys: CALENDINE,WARNER M Pat Loc: [facility] PACT 3 (Req'g Loc) Img Loc: [facility] MED Service: Unknown (Case [id number] COMPLETE)GASTRIC EMPTYING STUDY (NM Detailed) CPT:66095 Reason for Study: gastroparesis Radiopharmaceutical: 99MTC SULFUR COLLOID, 1 mC i Adm'd on NOV 01, 2021@07:55 by AUTUMN ARNETT (Case [id number] COMPLE TE)DIAG RADIOPHARM TC SULFUR COLLOID(NM Detailed) CPT:A9541 Radiopharmaceutical: 99MTC SULFUR COLLOID Adm'd on NOV 01, 2021@07:16 by ANICETO PÉREZ JR Clinical History: Report Status: Verified Date Reported: NOV 01, 2021 Date Verified: NOV 01, 2021 Radiological Technician E-Sig:/ES/PEDRO WOLFF MD Report: NUCLEAR MEDICINE GASTRIC EMPTYING CLINICAL INDICATION: 65-year-old male with conc nicolas for gastroparesis. PRIOR STUDY: None. CORRELATIVE: None. PROCEDURE: cardiac cath lab technologist romina ed the patient name, date of and for claustrophobia prio r to radiopharmaceutical administration. After an ov ernight fast, the patient ingested a semisolid meal of approximat ji 1 ounce of dry instant oatmeal prepared with 6-8 oz. of water, and labeled with 1.0 mCi of Tc-99m sulfur colloid. In the supine position, serial dynamic images of the abdomen were obtained in the anterior and posterior projection, at 300 seconds per frame, for a total time of 90 minutes. A region of interest was placed over the gastric area, and quantitative analysis was performed. A decay corrected time activity curve was generated based on the geometric mean. A time to half emptying (T1/2) as well as residua l retention values were calculated. FINDINGS: Normal transit of radiotracer activit y from the stomach into the small intestine. No scintigraphic evid ence of gastric reflux disease. The T1/2 measures 20 minutes. (normal < 45 min) Retention at 90 minutes is calculated at 7% Impression: 1. Normal gastric emptying. 2. No scintigraphic evidence of gastroesophagea l reflux. Primary Diagnostic Code: NO ALERT REQUIRED Primary Interpreting Staff: PEDRO WOLFF MD, NUCLEAR MEDICINE ([facility] er) /NAP Encounter Notes: All associated encounter notes This section contains the clinical notes associated to the Encounter. Date/Time Encounter Note(s) Provider Source Oct 15, 2021 09:18 PRIMARY CARE PHYSICIAN NOTE: WARNER ORTIZ [facility] LOCAL TITLE: PRIMARY CARE MEDICINE CLINIC STANDARD TITLE: PRIMARY CARE PHYSICIAN NOTE DATE OF NOTE: OCT 15, 2021@09:18 ENTRY DATE: OCT 15, 2021@09:18:09 AUTHOR: WARNER ORTIZ EXP COSIGNER: URGENCY: STATUS: COMPLETED HPI: CLAUDIA BATISTA is a 65 y/[facility] MALE [facility] for a Physical Examination, and the evaluation of current medical concerns. Patient recently moved here from [place]. Is seeing a non-VA PCP, Card iologist (CAD with 9 stents), Clerk Guide (DM), and orthopedist (left hip OA). Patient is interested in getting his non-generic medications through the [facility]. Past medical history: HTN DM CAD Hyperlipidemia Insomnia Diverticulosis Lumbar OA Left hip OA Fatty liver Past Surgical history: Bilateral shoulder scopes umbilical hernia repair right 5th toe amputation Allergies: Patient has answered NKA Active Outpatient Medications (including Supplie s): Start Date Active Non-VA Medications Refills Expiration 1) Non-VA AMLODIPINE BESYLATE 10MG TAB ACTIVE SiMG MOUTH EVERY DAY 2) Non-VA ASPIRIN 81MG EC TAB SiMG ACTIVE MOUTH EVERY DAY 3) Non-VA DAPAGLIFLOZIN 5MG TAB SiMG ACTIVE MOUTH EVERY DAY 4) Non-VA EXENATIDE INJ,SOLN Sig: ACTIVE SUBCUTANEOUSLY TWICE DAILY (BEFORE BREAKFAST AND SUPPER) 5) Non-VA LISINOPRIL 5MG TAB SiMG ACTIVE MOUTH DAILY AT BEDTIME 6) Non-VA LISPRO 75/25 INSULIN *KWIKPEN* ACTIVE INJ Si UNITS SUBCUTANEOUSLY TWICE A DAY 7) Non-VA METFORMIN HCL 1000MG TAB Sig: ACTIVE 1000MG MOUTH TWICE A DAY 8) Non-VA METOPROLOL (TOPROL-XL EQV) TAB,SA ACTI VE Si MOUTH EVERY DAY 9) Non-VA MULTIVITAMIN/MINERALS CAP/TAB ACTIVE Si TABLET MOUTH EVERY DAY 10) Non-VA RANOLAZINE 500MG SA TAB Sig: ACTIVE 500MG MOUTH TWICE A DAY 11) Non-VA TRAZODONE HCL 50MG TAB SiMG ACTI VE MOUTH DAILY AT BEDTIME The above medications have been reviewed with th e patient and the medication list has been reconciled. ROS: Each area has been reviewed with the patien t who states they have experienced: Constitutional: No fevers, chills, or night swea ts. HEENT: No usual headaches, c hanges in vision, changes in hearing, sinus troubles or change in ability to swallow. Cardiac: No chest pain, palpitations, exertional dyspnea, orthopnea or edema. Pulmonary: No new cough, hemoptysis or sputum pr oduction. GI: Recurrent bouts of epigastric pain with asso ciated nausea/vomitting. No blood or mucous in stool. : No dysuria or gross hematuria. Musculoskeletal: No new arthralgia, myalgia, or joint swelling. Neuro: No changes in (LOC) l evel of consciousness, diplopia, numbness, tingling or focal weakness. Psychiatric: No new depression or anxiety.. Skin: No rashes or lesions. 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 Marital status: Tobacco Use: quit 30 years ago Alcohol Use: rare alcohol use Illicit Drug history: none Current diet: regular Current exercise regimen: bike/walk Health Maintence items: Immunizations: History: Service Verification Date: Period of Service: POST- Service Discharge Type (Last): Service Branch (Last): Service Entry Date (Last): Service Separation Date (Last): Service Number (Last): Service Discharge Type (NTL): Service Branch (NTL): Service Entry Date (NTL): Service Separation Date (NTL): Service Number (NTL): Vital Signs: Date Vital Measurement Qualifiers 10/15/2021 09:01 Temp F (C) 97.6 (36.4) Oral Pulse 79 Respir 16 Spontaneous BP 112/68 Ht in (cm) 70.5 (179.07) Actual Wt lbs (kg)[BMI] 237.7 (107.82)[34*]Actual, Standing Weight Pain 0 POx (L/Min)(%) 96 Physical Exam: General: Patient appears alert and oriented and in NAD. EYES: PERRLA, EOMI, conjunctivae clear. HEENT: External canals with no erythema or lesio ns Neck: Supple, no adenopathy, no bruits. No enlar gement of thyroid gland or nodules appreciated. Lungs: Clear to auscultation bilaterally. No rho nchi, no rales, no wheezes. Heart: Heart is regular in rate and rhythm. No m urmurs heard. Abdomen: Bowel sounds are present and physiologi c. Abdomen is soft, no tender, and without distention. No hepatospleno megaly, no masses, no pulsation of aorta, no rebound, n o guarding. Extremities: No clubbing, no cyanosis, no edema. No lesions, No ulcers, foot sensation intact. Neuro: Cranial nerves II-XII grossly intact, no focal deficits. No lateralization is appreciated. No gait abnormalities are appreciated. Most recent labs reviewed. IMPRESSION/PLAN: 1.) Recurrent Abdominal Pain- not responsive to PPI; ? gastroparesis- gastric emptying study ordered 2.) HTN- stable on current medication 3.) DM- HbgA1c not at goal; sees non-VA endocrin ologist 4.) CAD- on ASA, statin and beta rohini plus Ra nexa; followed by non-VA cardiologsit 5.) Insomnia- on Trazodone 6.) Left hip OA- has appt to see NON-VA Orthoped ist 7.) Fatty liver- discussed weight loss, ensuring vaccinated against hepatitis, and Vitamin E supplements Additional plan of care: 1. Patient to continue current medications as ab ove. 2. Patient Education: Patient understanding was good. 3. Patient will call or return to clinic with ne w problems or concerns PRN. Patient was provided with the phone number and instructions on how to contact the clinic during usual clinic hours and procedures for after hours, weekends and holidays. 4. RTC as per ADT text orders Preventative Health Maintenance: CLINICAL REMINDER ACTIVITY Medication Reconciliation Review: Medication reconciliation: I reviewed and discu ssed with patient and/or caregiver. The patient's Active, Pending, Non-VA, and [place] te medications as well as local prescriptions previously dispensed noe t have been or discontinued in the past year, if any, at the t tamy of this encounter were reviewed. MRT5 - Allergies/ADRs FACILITY ALLERGY/ADR -------- Johan ZUNIGA [facility] No Known Allergies [facility] NO KNOWN ALLERGIES MRR1 - Med Reconciliation INCLUDED IN THIS LIST: Alphabetical list of [facility] outpatient prescriptions dispensed from this VA (local) an d dispensed from another VA or DoD facility (remote) as well as inpatien t orders (local pending and active), local clinic medications, locally docu mented non-VA medications, and local prescriptions that have or be en discontinued in the past 90 days. Non-VA Meds Last Documented On: Oct 15, 2021 NOTE The display of VA prescriptions disp ensed from another VA or DoD facility (remote) is limited to active outp atient prescription entries matched to National Drug File at the [facility] site and may not include some items such as investigational drugs, compo unds, etc. NOT INCLUDED IN THIS LIST: Medications self-ent ered by the patient into personal health records (i.e. [employer]) ar e NOT included in this list. Non-VA medications documented outside thi s VA, remote inpatient orders (regardless of status) and remote clinic medications are NOT included in this list. The patient and provider must always discuss medications the patient is taking, regardless o f where the medication was dispensed or obtained. Non-IN AMLODIPINE BESYLATE 10MG TAB TAKE ONE TABLET BY MOUTH EVERY DAY Patient is t aking daily [facility] Non-IN ASPIRIN 81MG EC TAB TAKE ONE TABLET BY MOUTH EVERY DAY Patient is t aking daily [facility] to [facility] Non-IN DAPAGLIFLOZIN 5MG TAB TAKE ONE TABLET BY MOUTH EVERY DAY Patient is t aking daily [facility] to [facility] Non-IN EXENATIDE INJ,SOLN INJECT SUBCUTANEOUSLY TWICE DAILY (BEFORE BREAK FAST AND SUPPER) [facility] to [facility] 2 mcg weekly Non-IN LISINOPRIL 5MG TAB TAKE ONE TABLET BY MOUTH DAILY AT BEDTIME Patie nt is taking daily [facility] to [facility] Non-IN LISPRO 75/25 INSULIN *KWIKPEN* INJ INJECT 40 UNITS SUBCUTANEOUSLY TWICE A DAY Franci ent is taking daily [facility] to [facility] Non-IN METFORMIN HCL 1000MG TAB TAKE ONE TABLET BY MOUTH TWICE A DAY Patient is taking daily [facility] Non-IN METOPROLOL (TOPROL-XL EQV) TAB,SA TAKE 150 BY MOUTH EVERY DAY Patient is taking d aily [facility] to [facility] Non-IN MULTIVITAMIN/MINERALS CAP/TAB TAKE ONE TABLET BY MOUTH EVERY DAY Patient is t aking daily [facility] to [facility] Non-IN RANOLAZINE 500MG SA TAB TAKE ONE TABLET BY MOUTH TWICE A DAY Patient is taking daily Patient [facility] Non-IN TRAZODONE HCL 50MG TAB TAKE ONE TABLET BY MOUTH DAILY AT BEDTIME Patie nt is taking daily [facility] SUPPLIES Outpatient Medication Reconciliation Discrepancy Found - Med Rec Completed. The patient's medication list/medication histor y was compared with CPRS and reviewed with the patient/caregiver and rec onciled. Patient/caregiver expressed understanding. A copy of the reconcil ed medication list was offered to patient/caregiver. Medication list w as declined by patient/caregiver. Patient/caregiver understands that they should maintain an updated list of their medications at all times. * Discrepancies were identified, and were addre ssed, and discussed with the patient/caregiver at this en counter and documented in the chart (this note). * All changes in medications, including all non -VA/Herbals/OTC medications were entered into CPRS, and braden alvarez in this note. * If there were any medications the patient nita uld no longer take, they were discontinued. The discontinued medica tions are documented in this note. Discrepancy and action taken: Assess Statin Use - Lipids (CVD/DM): The patient is already on a statin. The patient is on a statin from a source outsid e this VA. Medication list updated. Avg Risk Colorectal Cancer Screen: AVERAGE RISK colorectal cancer screening is due based on information available to this clinical reminder Patient has arranged or is choosing to arrange this care independent of and without assistance from this VA. Diabetic Eye Exam: Patient had Diabetic Retinal Exam previously. Retinal Exam: Normal Date: February 17, 2021 Diabetes - Urine Microalbumin: Orders placed for diabetic nephropathy screen a t this encounter. HIV Screening: Patient declines HIV lab test at this encounter . Hepatitis C Testing: Patient declines HCV lab test. Screen for Abd Aortic Aneurysm: The patient has had prior imaging of the aorta performed. Date: July 20, 2020 No abdominal aortic aneurysm. /es/ WARNER ORTIZ MD PRIMARY CARE Signed: 10/15/2021 09:47 Oct 15, 2021 08:45 PRIMARY CARE NURSING NOTE: WILVER BEAR [facility] TITLE: NURSING INTAKE NOTE CLINIC STANDARD TITLE: PRIMARY CARE NURSING NOTE DATE OF NOTE: OCT 15, 2021@08:45 ENTRY DATE: OCT 15, 2021@08:45:27 AUTHOR: WILVER BEAR I EXP COSIGNER: URGENCY: STATUS: COMPLETED NURSING INTAKE NOTE Has ADDENDA SUBJECTIVE: Source of Information: Patient Patient Identification: The patient has been erasmo ntified by Full Name, Full SSN, Date of Preferred language for discussing healthcare nee ds: [place] Allergies: Patient has answered NKA Patient's reason for visit: new patient The patient indicated that they and their close contacts have not traveled outside of the [place] in the past 21 day s. The patient reports the following symptoms: No symptoms present The patient is not immunocompromised. The patient does not report having a history of Multi Drug Resistant Organism (MDRO) within the last five years. The patient does not report having been exposed to measles, chickenpox, or zoster in last 30 days. Coronavirus Disease 2019 (COVID-19) Screen The patient was asked if in the last 14 days th ey have had new onset of any COVID-19 symptoms. They report the following: No symptoms Within the past 14 days, the patient reports no exposure to someone with a febrile/respiratory illness or someone with a k nown or suspected case of COVID-19 (within 6 feet for > 15 minutes). Result: Screen is negative. PAIN SCREEN: Verbal Patient self report Denies pain at this time. STRESS: The staff member completing this screening will ask the : We all feel stress. It may become overwhelming a t times. Would you like to speak with someone about your stress? Patient denied current stress. No further action required regarding stress. FUNCTIONAL SCREEN Changes in the following within the last 30 days : ADLS Activities of daily living (eating, oral care, toileting, bathing, grooming, dressing)? NO Mobility (walking, transfers)? NO Balance? NO Stroke/Traumatic brain injury within 30 days? N O Amputation Planned/Performed within last 30 days ? NO Results: Negative ABUSE AND WELL BEING SCREENING: Evidence of physical sexual abuse, neglect or ex ploitation? NO HERMAN FALL SCALE (indicate highest applicable sc ore from each category) Patient Screen Score History of Falling No = 0 0 Yes = 25 Secondary Diagnosis No = 0 More than one diagnosis Yes = 15 15 Ambulatory Aid - None/on bedrest/ uses W/C or Nurse assists = 0 0 Crutches/cane(s)/walker = 15 Furniture = 30 IV/Heparin Lock or Saline PIID No = 0 0 Yes = 20 Gait/Transferring - Normal/on bedrest/ Immobile = 0 0 Weak (uses touch for balance) = 10 Impaired (unsteady/difficulty = 20 rising to stand Mental Status-Oriented to own ability = 0 0 Forgets limitations = 15 Total: 15 JUSTIN SCALE Sensory Perception- Ability to respond meaningfu l to pressure discomfort. 4. No Impairment Moisture- Degree to which skin is exposed to lawrence sture. 4. Rarely Moist Activity- Degree of physical activity. 4. Walks Frequently Mobility- Ability to change and control body pos ition. 4. No Impairment Nutrition- Usual food intake pattern. 4. Excellent Friction and Shear. 3. No Apparent Problems Score: 23 COMMUNICATION Patient experiences new onset/change in speech, voice or language within last 30 days. No Difficulty swallowing (within last 30 days)? No Sudden Hearing Loss (within last 72 hours)? No NUTRITION No valid weight readings found for this patient. No valid height readings found for this patient. Weight change > 10 pounds within last month? No Malnourished appearance? No EXERCISE Currently exercises at least 30 minutes 3 times weekly. POTENTIAL BARRIERS TO LEARNING None apparent EDUCATION METHOD Learns best by: Hearing, Seeing, Doing PLAN: Will be seen by provider. Suicide Screen: C-SSRS Screening [place] Suicide Severity Rating Scale (C-SSRS) screener 1. Over the past month, have you wished you wer e or wished you could go to sleep and not wake up? No 2. Over the past month, have you had any actual thoughts of killing yourself? No 3. Over the past month, have you been thinking about how you might do this? Response not required due to responses to other questions. 4. Over the past month, have you had these thou ghts and had some intention of acting on them? Response not required due to responses to other questions. 5. Over the past month, have you started to wor k out or worked out the details of how to kill yourself? Response not required due to responses to other questions. 6. If yes, at any time in the past month did yo u intend to carry out this plan? Response not required due to responses to other questions. 7. In your lifetime, have you ever done anythin g, started to do anything, or prepared to do anything to end you r life (for example, collected pills, obtained a gun, gave away valu mychal, went to the roof but didn't jump)? No 8. If YES, was this within the past 3 months? Response not required due to responses to other questions. Tobacco Use Screening: The patient is a former tobacco user. The patient quit fifteen or more years ago. Homelessness/Food Insecurity Screen: In the past 2 months, have you been living in s table housing that you own, rent, or stay in as part of a household? Y es - Living in stable housing. Are you worried or concerned that in the next 2 months you may NOT have stable housing that you own, rent, or stay in a s part of a household? No - Not worried about housing near future [facility] [place] reports the following: Within the past 12 months, you worried whether your food would run out before you got money to buy more. Never true Within the past 12 months, the food you bought just didn't last and you didn't have money to get more. Never true Influenza Immunization: The patient has received the seasonal influenza vaccine for the current season at another location. Date: May, Exact date is unknown [place] Site COVID-19 Immunization: Vaccine deferred to later date. Reason: will bring in copy Pneumococcal PPSV23 (Pneumovax): The patient declines to receive the recommended dose of pneumococcal polysaccharide vaccine PPSV23 (Pneumovax). Tdap Immunization: The patient declines to receive the recommended dose of Tetanus, Diphtheria, Pertussis vaccine (Tdap). Herpes Zoster (Shingles) Vaccine: The patient declines to receive the herpes zost er vaccine. Latex Allergy Screening: Patient is not allergic to latex. Advance Directive: ADVANCE DIRECTIVE NOTIFICATION AND SCREENING ADVANCE DIRECTIVE NOTIFICATION: The patient or office machines sales representative was not provided written notification about advance directives because: on file ADVANCE DIRECTIVE SCREENING: The patient or office machines sales representative says the patient has an advance directive. It is on file in the patient's [facility] health record. Inquired if they want more information or cynthia tance in completing a new advance directive form, and directed them t o that assistance, if desired. Weight: Patient weight at this encounter. 237.7 lb (108 kg) Healthwise for Life/Health at Home: Healthwise for Life/Health at Home book not giv en: The Healthwise for Life/Health at Home book i s not available at this time. Depression Screening: Perform PHQ-2 A PHQ-2 screen was performed. The score was 0 w hich is a negative screen for depression. Over the past two weeks, how often have you bee n bothered by the following problems? 1. Little interest or pleasure in doing things Not at all 2. Feeling down, depressed, or hopeless Not at all PTSD Screening: PC-PTSD-5 A PTSD screening test (PC-PTSD-5) was negative (score=0). Have you ever had any experience that was so fr ightening, horrible or upsetting that, IN THE PAST MONTH, you: Have you ever experienced this kind of event? NO 1. Had nightmares about the event(s) or thought about the event(s) when you did not want to? Response not required due to responses to other questions. 2. Tried hard not to think about the event(s) o r went out of your way to avoid situations that reminded you of the ev ent(s)? Response not required due to responses to other questions. 3. Been constantly on guard, watchful, or easil y startled? Response not required due to responses to other questions. 4. [place] numb or detached from people, activitie s, or your surroundings? Response not required due to responses to other questions. 5. [place] guilty or unable to stop blaming yourse lf or others for the event(s) or any problems the event(s) may have caused? Response not required due to responses to other questions. Alcohol Use Screen (AUDIT-C): Alcohol Screen: SCREEN FOR ALCOHOL (AUDIT-C) An alcohol screening test (AUDIT-C) was negativ e (score=0). 1. How often did you have a drink containing al cohol in the past year? Never 2. How many drinks containing alcohol did you h ave on a typical day when you were drinking in the past year? Response not required due to responses to other questions. 3. How often did you have six or more drinks on one occasion in the past year? Response not required due to responses to other questions. Preventive Health Counseling: Patient had Preventive Health Counseling at [facility] encounter. Level of Understanding: Good Stroke Risk Education: Stroke Education material was given to patient/ family/significant other at this encounter. Level of Understanding: Good HTN Lifestyle Education (Local): Patient had nutrition education for HTN at this encounter. Level of Understanding: Good Patient had hypertension education at this [facility]. Level of Understanding: Good Patient had exercise education for HTN at this encounter. Level of Understanding: Good [facility] Education and Enrollment: Patient was educated about [employer] and [facility] benefits of In-Person Authentication. Patient was offered enrollment to [employer]. Patient accepts enrollment to [employer] and Authentication form is given to patient. Tobacco Pack Year History: Patient used cigarettes in the past, but quit a nd does not currently use them: Quit smoking GREATER THAN OR EQUAL to 15 years ago. Diabetic Foot Ed & Exams (PAVE): Patient had Diabetic Foot Inspection exam at [facility] encounter. Result of Exam: Normal Patient had Diabetic Foot Sensation exam by jennifer piper at this encounter. Result of Exam: Normal Patient had Diabetic Pedal Pulse exam at this e ncounter. Result of Exam: Normal Patient had Diabetes Foot Care education at thi s encounter. Level of Understanding: Good RISK LEVEL 0: Normal sensation Normal pulses No foot deformity or infection /lalit BEAR LPN LICENSED PRACTICAL NURSE Signed: 10/15/2021 09:01 10/15/2021 ADDENDUM STATUS: COMPLETED Weight Loss Program: Patient has not participated in a weight loss p rogram within past 12 months. The health risks of being overweight we re reviewed with the patient, and the benefits of a weight loss prog michell, such as MOVE!, were discussed with the patient. Patient declines to participate in MOVE weight loss program at [facility]. /lalit BEAR LPN LICENSED PRACTICAL NURSE Signed: 10/15/2021 09:02 10/15/2021 ADDENDUM STATUS: COMPLETED EXIT INTERVIEW S. Patient for exit interview to review plan of care and receive instruction. O. Changes and or initiatives to plan of care ar e as follows. I. Return to clinic as directed with labs schedu led 1-2 weeks prior to appointment with provider. Make appointment for RTC and/or check out prior to exiting unit. Education-Medication list given to patient. Copy of labs given to patient. Prescriptions to be mailed. Patient voices understanding of plan of care. PACT Team telephone extensions provided to franci ent for clear communication and any questions. Any consults placed- You will be notified via winnie brink of dates and times. /lalit BEAR LPN LICENSED PRACTICAL NURSE Signed: 10/15/2021 10:32
--- OUTSIDE RECORDS SUMMARY | 2022-02-21 01:13 | XMS_ITS | Encounter Summary ---
:1955 Author Organization [facility] Address [address] [place] [address] Care Team Providers Name Role Phone Joaquín Carpenter MD Primary Care Provider Reason for Visit Reason Comments Coronary Artery Disease Hypertension Encounter Details Date Type Department Care Team Description 10/07/2011 Office Visit [facility] Broderick Galloway atherosclerosis Cardiology - Jenelle Ansari MD of [place] coronary artery [address] Jenelle Cavazos (Primary Dx) [place], [place] [address] [place] [address] [place] [phone] Social History Tobacco Use Types Packs/Day Years Used Date Former Smoker 20 Smokeless Tobacco: Never Used Comments: quit 17 yrs ago Alcohol Use Standard Drinks/Week Comments Yes 0 [...] Sign Reading Time Taken Comments Blood Pressure 134/65 10/07/2011 1400 EDT Pulse 66 10/07/2011 1400 EDT Temperature - - Respiratory Rate - - Oxygen Saturation - - Inhaled Oxygen Concentration - - Weight 114.3 kg (252 lb) 10/07/2011 1400 EDT Height 175.3 cm (5' 9) 10/07/2011 1400 EDT Body Mass Index 37.21 10/07/2011 1400 EDT documented in this encounter Functional Status Cognitive Status Response Date of Assessment Because of a physical, mental, or emotional condition, do Ye s 09/09/2009 you have serious difficulty concentrating, remembering, or making decisions? (5 years old or older) documented as of this encounter Progress Notes Broderick Galloway MD - 10/07/2011 1412 EDT Subjective: Patient is a 55 y.o. male who presents for follow-up of cad. Patient reports excessive fatigue. He denies chest pain on exertion and dyspnea on exertion. He describes his symptoms as not changed. Patient has DEEPALI, but questions Re its efficacy due to excessive daytime somnolence He has been compliant with his medications. [...] Active Problem List Diagnoses Date Noted ??? CAD (coronary artery disease) 09/07/2009 ? ? Hyperlipidemia LDL goal < 70 09/07/2009 ??? HTN (hypertension) 09/07/2009 ??? Diabetes mellitus 09/07/2009 Current Outpatient Prescriptions Medication Sig Dispense Refill ??? citalopram (CELEXA) 40 mg tablet Take 40 mg by mouth daily. ??? glimepiride (AMARYL) 4 mg tablet Take 4 mg by mouth daily. ??? aspirin chewable 81 mg tablet Take 81 mg by mouth daily. ??? amlodipine (NORVASC) 10 mg tablet Take 1 Tab by mouth daily. 30 Tab 11 ??? clopidogrel (PLAVIX) 75 mg tablet Take 1 Tab by mouth daily. Plavix 75 mg daily uninterrupted for a minimum of one year Do not stop or interrupt this medication withour discussing with cold rolling supervisor Start this medication in one month. First [...] mouth daily. ??? METOPROLOL SUCCINATE ORAL Take by mouth daily. Takes 3-50 mg. Tablets daily ??? nitroGLYCERIN (NITROSTAT) 0.[address] 0.4 mg under the tongue as needed for Chest Pain. ??? SIMVASTATIN (ZOCOR ORAL) Take 40 mg by mouth at bedtime. ??? AMITRIPTYLINE HCL (AMITRIPTYLINE ORAL) Take 10 mg by mouth at bedtime. Takes 2-10 mg tablets at bedtime Review of Systems Pertinent items are noted in Subjective/HPI Objective: BP 134/65 Pulse 66 Ht 175.3 cm (69) Wt 114.306 kg (252 lb) BMI 37.21 kg/m2 Body mass index is 37.21 kg/(m^2). Physical Exam: General: Alert, cooperative, no [...] 52 09/08/2009 LDLBASE 110 09/08/2009 Assessment: Raul F Matte is a 55 y.o. year old male who presents with cad stable at present. Excessive daytimesomnolence raises question of under-treated sleep apnea Plan: Consider sleep study for CPAP titration documented in this encounter Plan of Treatment Upcoming Encounters Date Type Specialty Care Team Description 09/29/2022 Office Visit Gastroenterology and Shaq Phan, Hepatology [address] [facility], [address] [place] [phone] (Wo rk) documented as of this encounter Visit Diagnoses Diagnosis Coronary atherosclerosis of [place] coron millie artery - Primary documented in this encounter Discontinued Medications Medication Sig Discontinue Reason Start Date End Date citalopram (CELEXA) 20 Take 40 mg by mouth Dose adjustment 10/07/2011 mg tabletIndications: daily. Indications: depression DEPRESSION glimepiride (AMARYL) 2 Take 2 mg by mouth Dose adjustment 10/07/2011 mg tablet every morning. documented as of this encounter Historical Medications This list may reflect changes made after this encounter. Medication Sig Dispensed Refills Start Date End Date glimepiride (AMARYL) 4 mg Take 4 mg by mouth 0 04/13/2012 tablet daily. citalopram (CELEXA) 40 mg Take 40 mg by mouth 0 04/13/2012 tablet daily. added in this encounter Care Teams Spool Cleaner Hand Relationship Specialty Start Date End Date Joaquín Carpenter MD PCP - General 09/04/09 10/26/12 [address] [place] [address] documented as of this encounter
--- OUTSIDE RECORDS SUMMARY | 2022-02-21 01:13 | XMS_ITS | Encounter Summary ---
:1955 Author Organization [facility] Address [address] [place] [address] Care Team Providers Name Role Phone Joaquín Carpenter MD Primary Care Provider Gregoria Nicholas MD Primary Care Provider Encounter Details Date Type Department Care Team Description 08/30/2012 Orders Only [facility] Aury Galloway rd, MD Cardiology - [facility] [address] [facility] [address] [facility] [address] [place] [address], [place] [address] [place], [place] [phone] (Wo rk) Social History Tobacco Use [...] documented as of this encounter Functional Status Cognitive Status Response Date of Assessment Because of a physical, mental, or emotional condition, do Ye s 09/09/2009 you have serious difficulty concentrating, remembering, or making decisions? (5 years old or older) documented as of this encounter Plan of Treatment Upcoming Encounters Date Type Specialty Care Team Description 09/29/2022 Office Visit Gastroenterology and Lidofsky, Shaq D, Hepatology [address] [facility], [address] [place] [phone] (Wo rk) documented as of this encounter Procedures Procedure Name Priority Date/Time Associated Diagnosis Comme nts LIPID RX PROFILE (BUN, Routine 08/18/2012 Resul ts for this CREATININE, GLUCOSE, procedu re are in the AST, ALT, URIC ACID, results section. CK, CHOLESTEROL, TRIG, HDL, LDL) LIPID RX PROFILE (BUN, Routine 06/16/2012 Resul ts for this CREATININE, GLUCOSE, procedu re are in the AST, ALT, URIC ACID, results section. CK, CHOLESTEROL, TRIG, HDL, LDL) documented in this encounter Results LIPID RX PROFILE (INCLUDES BUN, CREATININE, GLUCOSE, AST, ALT, URIC ACID, CK, CHOLESTEROL, TRIGLYCERIDES, HDL, LDL) (08/18/2012) Pathologist Sig nature BUN, External Creatinine, External GFR, Calculated, External Glucose, Serum, External AST, External 44 ALT, External 89 Uric Acid, External CK, External Cholesterol, External 144 Triglycerides, External 103 HDL, External 42 LDL, External 79 Chol/HDL Ratio, External Fasting?, External y Specimen Blood specimen (specimen) LIPID RX PROFILE (INCLUDES BUN, CREATININE, GLUCOSE, AST, ALT, URIC ACID, CK, CHOLESTEROL, TRIGLYCERIDES, HDL, LDL) (06/16/2012) Pathologist Sig nature BUN, External Creatinine, External GFR, Calculated, External Glucose, Serum, External AST, External 39 ALT, External 71 Uric Acid, External CK, External Cholesterol, External 249 Triglycerides, External 171 HDL, External 40 LDL, External 179 Chol/HDL Ratio, External Fasting?, External y Specimen Blood specimen (specimen) documented in this encounter Visit Diagnoses Not on filedocumented in this encounter Care Teams Fuel Conversion Technician Relationship Specialty Start Date End Date Joaquín Carpenter MD PCP - General 09/04/09 10/26/12 [address] [place], [place] [phone] Gregoria Nicholas MD PCP - General 10/27/12 09/12/18 [address] [place] [phone] documented as of this encounter
--- OUTSIDE RECORDS SUMMARY | 2022-02-21 01:13 | XMS_ITS | Encounter Summary ---
:1955 Author Organization Department [facility] Address [address] [place] [address] Support Name Relationship Address Phone ANA JOYNER Unavailable [address] [place] [address] LESTERMARY Unavailable [address] [place] [address] ANDREINA SULTANA Unavailable [address] [place] [address] WANDA BATISTA Unavailable [address] [place] [address] Insurance Providers: All historical and current Section [...] Telephone Name to Policy Number Vu CBA [facility] Jul 20 [id number] [phone] DANIEL BATISTA O PATIENT DEDUCTIBL SADIE [id number] RGE E HEALTH HDHP PLAN EXPRESS PRESCRIPT Jul 20, RXBWEID [id number] [phone] SRINIVAS BATISTA PATIENT SCRIPTS ION [id number] RGE ([id number]) RESTAT PRESCRIPT CBA November 17, 2820 [id number] [phone] Luis BATISTA EO PATIENT ION BLUE [id number] 2 RGE Selected Encounter This section includes the information on record at [place] for the Encounter. Date/Time Encounter Type Encounter Reason Provider Source Description Sep 10, 2021 02:26 CASE MANAGEMENT ADMIN PAT ACTIVTIES MONICA VELAZCO (MASCHRISTIANCT) [facility] Encounter Template Text not used by [place] Plan of Treatment: Future Appointments (+ 6 months) and Future Tests (+/- 45 days) The Plan of Treatment section includes future care activities for the patient from all [place] treatmentfacilities. This section includes future appointments and future orders which are active, pending orscheduled.Future Appointments This section includes appointments that were scheduled to occur 6 months from the date of the Encounter, up to a maximum of 20 appointments. The data comes from all [place] treatment facilities. Appointment Date/Time Appointment Type Appointment Facili ty Name Oct 11, 2021 08:15 AM AMBULATORY - NONE [facility] Oct 15, 2021 09:00 AM AMBULATORY - NONE Johan RAMOS PT OF [facility] Nov 01, 2021 08:00 AM AMBULATORY - NONE [facility] Advance Directives: All historical and current Section Date Range: From patient's date of to the date document was created. This section includes ALL of a patient's completed or amended [place] Advance and Rescinded Directives. The entries below indicate that a directive exists for the patient, but an actual copy is not included with this document. The data comes from all [place] facilities. Date Advance Directives Provider Source November 23, 2017 ADVANCE DIRECTIVE KAYCEJOIFito MONTOYA ONEAL T [facility] Encounter Notes: All associated encounter notes This section contains the clinical notes associated to the Encounter. Date/Time Encounter Note(s) Provider Source Sep 10, 2021 02:26 PM ADMINISTRATIVE NOTE: MONICA SUMMERS [facility] LOCAL TITLE: PCMM ADMINISTRATIVE NOTE CLINIC STANDARD TITLE: ADMINISTRATIVE NOTE DATE OF NOTE: SEP 10, 2021@14:26 ENTRY DATE: SEP 10, 2021@14:26:19 AUTHOR: MONICA SUMMERS EXP COSIGNER: URGENCY: STATUS: COMPLETED PCMM received. Approved for [facility] [place]. Per chart hilaria mcghee of 08/19/21 approved for [facility] [place] per [employer] consult. /jayce/ MONICA SUMMERS RN REGISTERED NURSE Signed: 09/10/2021 14:26
--- OUTSIDE RECORDS SUMMARY | 2022-02-21 01:13 | XMS_ITS | Encounter Summary ---
:1955 Author Organization [facility] Address [address] [place] [address] Care Team Providers Name Role Phone Joaquín Carpenter MD Primary Care Provider Reason for Visit Reason Comments Follow-up 6 month Encounter Details Date Type Department Care Team Description 10/08/[address] [facility] Broderick Galloway at [facility] Cardiology - Jenelle Ansari MD (Primary Dx) [address] [place] [address] [place] [address] [place] [phone] Social History Tobacco Use Types Packs/Day [...] Sign Reading Time Taken Comments Blood Pressure 130/60 10/08/2010 1453 EDT Pulse 69 10/08/2010 1453 EDT Temperature - - Respiratory Rate - - Oxygen Saturation - - Inhaled Oxygen Concentration - - Weight 115.7 kg (255 lb) 10/08/2010 1453 EDT Height 175.3 cm (5' 9) 10/08/2010 1453 EDT Body Mass Index 37.66 10/08/2010 1453 EDT documented in this encounter Functional Status Cognitive Status Response Date of Assessment Because of a physical, mental, or emotional condition, do Ye s 09/09/2009 you have serious difficulty concentrating, remembering, or making decisions? (5 years old or older) documented as of this encounter Progress Notes Broderick Galloway MD - 10/08/2010 1501 EDT Subjective: Patient is a 54 y.o. male who presents for follow-up of cad. Patient reports no chest pain. He denies chest pain on exertion, dyspnea on exertion and orthopnea. He describes his symptoms as improved. He has been compliant with his medications. Medications side effects include none Past Medical History Diagnosis Date ??? [place] (myocardial infarction) 1992, 2003 ??? CAD (coronary artery disease) 09-10-09 PCI LAD prox MARY, LAD mid MARY, LAD distal BMS; 09-07-09 PCI MARY X 3 RCA; 2004 stents X2 ??? Hypertension ??? Diabetes mellitus oral agents ??? Diverticulitis ??? Hyperlipidemia ??? Recurrent infections rt foot 5th toe Patient Active Problem List Diagnoses Date Noted ??? CAD (coronary artery disease) [414.00AE] 09/07/2009 ? ? Hyperlipidemia LDL goal < 70 [272.4DJ] 09/07/2009 ??? HTN (hypertension) [401.9AF] 09/07/2009 ??? Diabetes mellitus [250.00A] 09/07/2009 History Social History ??? Marital Status: Spouse Name: N/A Number of Children: N/A ??? Years of Education: N/A Social History Main Topics ??? Smoking status: Former Smoker -- 20 years ??? Smokeless tobacco: Never Used Comment: quit 17 yrs ago ??? Alcohol Use: Yes rare ??? Drug Use: No ??? Sexually Active: Not on file Other Topics Concern ??? Not on file Social History Narrative ??? No narrative on file Review of Systems Pertinent items are noted in Subjective/HPI Persistent LFT anomalies Due for CT scan at [place] Objective: BP 130/60 Pulse 69 Ht 175.3 cm (69) Wt 115.667 kg (255 lb) BMI 37.66 kg/m2 Body mass index is 37.66 kg/(m^2). Physical Exam: General: Alert, cooperative, no [...] 110 09/08/2009 Assessment: Raul Trujillo is a 54 y.o. year old male who presents with cad Plan: Cont present rx documented in this encounter Plan of Treatment Upcoming Encounters Date Type Specialty Care Team Description 09/29/2022 Office Visit Gastroenterology and Shaq Phan, Hepatology [address] [facility], [address] [place] [address] (Wo rk) documented as of this encounter Visit Diagnoses Diagnosis Coronary atherosclerosis of unspecified type of vessel, hopland or graft - Primary documented in this encounter Discontinued Medications Medication Sig Discontinue Reason Start Date End Date aspirin 325 mg tablet Take 1 Tab by mouth Error 09/07/2009 10/08/2010 daily. Aspirin 325 mg daily for 30 days then aspirin 81 mg daily for lifetime Prasugrel (EFFIENT) 10 Take 1 Tab by mouth Error 09/10/2009 10/08/2010 mg Tab tablet daily. Take for one month, then resume Plavix. albuterol (PROVENTIL Inhale 2 Puffs as Error 04/09/2010 HFA, VENTOLIN HFA) 90 directed every 4 mcg/Actuation inhaler hours. albuterol (PROVENTIL Inhale 2 Puffs as Error 04/09/2010 HFA, VENTOLIN HFA) 90 directed every 4 mcg/Actuation inhaler hours. documented as of this encounter Historical Medications This list may reflect changes made after this encounter. Medication Sig Dispensed Refills Start Date End Date aspirin chewable 81 mg Take 81 mg by mouth 0 02/10/2016 tablet daily. added in this encounter Care Teams Trauma Therapist Relationship Specialty Start Date End Date Joaquín Carpenter MD PCP - General 09/04/09 10/26/[address] [place] [id number] documented as of this encounter
--- OUTSIDE RECORDS SUMMARY | 2022-02-21 01:13 | XMS_ITS | Encounter Summary ---
:1955 Author Organization [facility] Address [address] [place] [address] Care Team Providers Name Role Phone Joaquín Carpenter MD Primary Care Provider Reason for Visit Reason Onset Date Comments Paperwork request 08/25/2012 for surgery Returning Call 08/25/2012 Encounter Details Date Type Department Care Team Description 08/25/2012 Telephone [facility] Broderick Galloway Pap erwork request (for Cardiology - Jenelle HAYES surgery); Returning [address] [place], [place] [address] [place] [address] [place] [phone] Social History Tobacco Use Types Packs/Day Years [...] Telephone Encounter - Mary Tanner RN - 09/02/2012 0926 EST Clearance Letter faxed to Dr. Main Cope's office: [phone]/ [phone]. Mary Tanner RN elephone Encounter - Mary Tanner RN - 08/31/2012 1130 EST Letter dictated Broderick Galloway MD elephone Encounter - Crissy Clifton - 08/27/2012 1016 EST The patient is calling the nurse back. He gave the fax number to 's office. [phone] elephone Encounter - Mary Tanner RN - 08/26/2012 1224 EST Patient called to say he's scheduled for Right shoulder surgery with Dr. Main Cope in [place], [place] on 09/22/12. Dr. Cope will need a letter from Dr. Galloway that states he's okay to have the surgery and okay to go off Plavix. elephone Encounter - Crissy Clifton - 08/25/2012 1443 EST The patient is having shoulder surgery on 09.22.[address]Andrew Cope will need a letter faxed to him stating the patient is okay to have the surgery and okay to go off of his Plavix. documented in this encounter Plan of Treatment Upcoming Encounters Date Type Specialty Care Team Description 09/29/2022 Office Visit Gastroenterology and Lidofsky, Shaq D, Hepatology [address] [facility], [address] [place] [phone] (Wo rk) documented as of this encounter Visit Diagnoses Not on filedocumented in this encounter Care Teams Utility Aide Relationship Specialty Start Date End Date Joaquín Carpenter MD PCP - General 09/04/09 10/26/12 [address] [place] [address] documented as of this encounter
--- OUTSIDE RECORDS SUMMARY | 2022-02-21 01:13 | XMS_ITS | Encounter Summary ---
:1955 Author Organization [facility] Address [address] [place] [address] Care Team Providers Name Role Phone Joaquín Carpenter MD Primary Care Provider Gregoria Nicholas MD Primary Care Provider Reason for Visit Reason Onset Date Comments Appointment Related 10/25/2012 Encounter Details Date Type Department Care Team Description 10/25/2012 Telephone [facility] Broderick Galloway, Jesus Alberto ointment Related Cardiology - Jenelle HAYES [address] [address] [place] [address] (Wo rk) Social History Tobacco [...] this encounter Miscellaneous Notes Telephone Encounter - Opal Holalnd - 10/25/2012 1141 EDT Patient would like to reschedule his 12/10/12 appointment for October. If not please keep 12/10/12. (Ed Nilesh's schedule is not available in ) Please call patient. documented in this encounter Plan of Treatment Upcoming Encounters Date Type Specialty Care Team Description 09/29/2022 Office Visit Gastroenterology and Shaq Phan, Hepatology [address] [facility], [facility], [address] [place] [phone] (Wo rk) documented as of this encounter Visit Diagnoses Not on filedocumented in this encounter Care Teams Manager Of Creative Services Relationship Specialty Start Date End Date Joaquín Carpenter MD PCP - General 09/04/09 10/26/12 [address] [place] [address] Gregoria Nicholas MD PCP - General 10/27/12 09/12/18 [address] [place] [phone] documented as of this encounter
--- OUTSIDE RECORDS SUMMARY | 2022-02-21 01:13 | XMS_ITS | Encounter Summary ---
:1955 Author Organization [facility] Address [address] [place] [address] Care Team Providers Name Role Phone Joaquín Carpenter MD Primary Care Provider Reason for Visit Reason Onset Date Comments Returning Call 08/17/2012 Encounter Details Date Type Department Care Team Description 08/17/2012 Telephone [facility] Aury Galloway rd, MD Returning Call Cardiology - Jenelle [address] [facility] [address] [place], [place] [address] [place] [address] [phone] (Wo rk) Social History Tobacco Use [...] Telephone Encounter - Mary Tanner RN - 08/17/2012 1527 EST Patient called to report his labs were done and he's to have them done tomorrow again to recheck - his LFT's were elevated and [facility]. He will have the labs faxed to Dr. Roberson. He also reports he is to have an MRI tomorrow and was told to check if his stents are compatible. Advised Stents placed by [facility] are MRI safe. This was documented 2003. His stents were place 08/2009. He states he also had stents placed @ [facility]. He will contact them for their advice as well. elephone Encounter - Nadine Wing - 08/17/2012 1503 EST Pt returning call from last week. Pt also is asking if he can have an MRI as he has 8 stents. documented in this encounter Plan of Treatment Upcoming Encounters Date Type Specialty Care Team Description 09/29/2022 Office Visit Gastroenterology and Shaq Phan, Hepatology [address] [facility], [address] [place] [address] (Wo rk) documented as of this encounter Visit Diagnoses Not on filedocumented in this encounter Care Teams Certified Court/Medical Interpreter Relationship Specialty Start Date End Date Joaquín Carpenter MD PCP - General 09/04/09 10/26/12 [address] [place], [place] [phone] documented as of this encounter
--- OUTSIDE RECORDS SUMMARY | 2022-02-21 01:13 | XMS_ITS | Encounter Summary ---
:1955 Author Organization [facility] Address [address] [place] [address] Care Team Providers Name Role Phone Joaquín Carpenter MD Primary Care Provider Encounter Details Date Type Department Care Team Description 09/07/2009 Orders Only [facility] Aury Lozada [address] F, Cardiology - [address] [place], [place] [address] [place] [phone] (Wo rk) Social History Tobacco Use Types Packs/Day Years Used Date Former Smoker Comments: quit 17 yrs ago Alcohol Use [...] mental, or emotional condition, do Ye s 09/07/2009 you have serious difficulty concentrating, remembering, or making decisions? (5 years old or older) documented as of this encounter Plan of Treatment Upcoming Encounters Date Type Specialty Care Team Description 09/29/2022 Office Visit Gastroenterology and Shaq Phan, Hepatology [address] [facility], [address] [place] [phone] (Wo rk) documented as of this encounter Procedures Procedure Name Priority Date/Time Associated Diagnosis Comme nts LEFT HEART CATH 09/07/2009 11:00 EST Resu lts for this procedure are i n the results section. documented in this encounter Results LEFT HEART CATH (09/07/2009 11:00 EST) Specimen Impressions CARDIOLOGY - 09/19/2009 15:57 EST ?[facility] ? [address] ?? [place] [address] ? [phone] ?Fax: ?? [email or web address] ?Final Interventional Card iovascular Catheterization Report ?- -- SUMMARY OF RESULTS --- > The patient has significant (>70%) le sions in ??1 coronary vessel(s). > The culprit artery was the RCA. Prior to PCI there was 90% stenosis in the culprit artery. > Following PCI as described in the proc edure section, there was 0% residual stenosis and normal flow in the RCA. > ??We accomplished complete revasculari zation. ??There are severe stenoses remaining in 0 coronary vessels or graft s. Pt has moderate residual disease in LAD and LCX which will be followed clini jeronimo. > Interventional cardiac catheterization was performed without any significant complications. ? --- PLAN --- >Aspirin is recommended indefinitely and should not be stopped without consultation with a fur feeder. Clopid ogrel (plavix) is recommended for a minimum of 12 months after the drug elut ing stent procedure. ? --- PATIENT PRESENTATION --- The patient is a 53 year old male. ??The primary indication for PCI was PCI for high risk Non-STEMI or unstable angina. Additional indications include: angina, Positive Nuclear Stress Test, Un stable angina. The patient has the following Comorbidit ies/Risk Factors: ??Dyslipidemia, Hypertension, Prior SC, Prior PCI. Diabetes Oral. : 1955 ?Sex: male ?Heig ht: 177.8cm ?Weight: 109.1kg ?BSA: 2.26 Allergies: ??NKA Pre-Roll Builder Values: ??HCT: 41.8 ?Pl atelets: 230.0 ?Creatinine:.6 ? --- PROCEDURE --- CARDIAC ANATOMY AND FUNCTION Natives with > 70% stenosis: RCA Dominance: ??Right LM Stenosis: 0% INTERVENTIONAL CARDIAC PROCEDURE PCI is indicated for this significant AC C/AHA class B2 lesion in the ??distal RCA vessel. A 6F KR3H guide catheter was chosen for the intervention . ??This catheter gave good engagement in the ostium of the LM. The lesion in the ??distal RCA was cross ed successfully with an 0.014 inch [employer] wire. We then inflated a 3.0 mm diameter of ap proximately 15 mm length [place] in the mid to distal RCA. ?? The maximal inflat ion pressure was 10-12 cale. ??This was repeated within the entire mid to distal portion. ??We were unable to pass a stent across the mid lesion and then inf lated a 3.5 mm diameter of approximately 15 mm length Voyager ballo on in the ??mid RCA. ?? The maximal inflation pressure was >16 cale. ?? This also was repeated within the entire mid to distal segment at high pressures. ??W e then used another Prowater as a nataly wire to recross the lesion and over this wire were able to inflate a 3.5 mm diameter of approximately 12 mm length E ndeavor drug-eluting stent in the distal RCA. ?? The maximal inflation pre ssure was >16 cale. ??The stent was successfully deployed. We then inflated a 3.5 mm diameter of ap proximately 30 mm length Eckert drug- eluting stent in the ??mid RCA. ?? The m aximal inflation pressure was >16 cale. The stent was successfully deployed. We then inflated a 3.5 mm diameter of ap proximately 15 mm length Quantum Licking balloon in the mid to distal RC A. ?? The maximal inflation pressure was >16 cale. We then inflated a 3.0 mm diameter of ap proximately 12 mm length Eckert drug- eluting stent in the ??distal RCA. ?? Th e maximal inflation pressure was >16 cale. ?? The stent was successfully deplo yed. The stent balloon was then inflated at the stent overlap. ??The max imal inflation pressure was >16 cale. The right common femoral artery was norm al in size and had no significant angiographic lesions. The femoral artery sheath was placed wit hin the common femoral artery. The Access location was: ?? > Right Femo ral Artery The Largest Arterial Sheath/Cath placed was ??6F The Hemostasis method used was: ? [employer] SELECTED MEDICATION ADMINISTERED DURING THE PROCEDURE: ??FENTANYL, VERSED ? (Please see PhysioLog report for complete list of medications used.) Referring Physician: KIERRA HAYES,BRODERICK Ansari Referring Physician 2: JOAQUÍN CARPENTER MD Interventional Attending: Goyo Lozada MD Interventional Fellow: Lara Stinson MD As the attending, supervising cardiologi st, I was present for the entire procedure. Signature date/time: 09/19/2009 15:57:33 ? Narrative CARDIOLOGY - 09/19/2009 15:57 EST ?[facility] ? [facility] ?? [place] [address] ? ?Fax: ?? [email or web address] ?Final Diagnostic Cardi ovascular Catheterization Report ?- -- SUMMARY OF RESULTS --- > The ventriculogram revealed normal LV function. > Diagnostic cardiac catheterization was performed without any significant complications. > The patient has significant (>70%) les ions in ??1 coronary vessel: ??RCA > The LV end diastolic pressure was norm al. ? --- PLAN --- > After careful review of the diagnostic images and findings, PCI is indicated electively based upon the indications, r isk factors and anatomy described above. ? --- PATIENT PRESENTATION --- The patient is a 53 year old male with t he following indications: ??angina, Positive Nuclear Stress Test, Unstable a ngina . The patient has the following Comorbidit ies/Risk Factors: ??Dyslipidemia, Hypertension, Prior SC, Prior PCI. Diabetes Oral. : 1955 ?Sex: male ?Heig ht: 177.8cm ?Weight: 109.1kg ?BSA: 2.26 Allergies: ??NKA Pre-Roll Builder Values: ??HCT: 41.8 ?Pl atelets: 230.0 ?Creatinine:.6 ? --- PROCEDURE --- DIAGNOSTIC CARDIAC PROCEDURE Under local anesthesia, the right femora l artery was accessed with a 6F sheath using modified Seldinger technique. ??A 6F JL4 catheter was introduced and positioned in the ascending aorta. Left heart cath was performed according to standard procedure. ??A 6F Pigtail was used to cross the aortic valve and m easure pressures in the left ventricle. Selective coronary arteriography was the n performed using a 6F JL4 catheter to engage the left coronary artery and a 6F JR4 catheter to engage the right coronary artery. ??Right and left plunkett ry arteriography were performed in multiple views. Using standard procedures, left ventricu lography was performed. A 6F Pigtail was used to cross the aortic valve and m easure pressures in the left ventricle. ??An injection of Isovue cont rast was used for left ventriculography in the 30 degree SAENZ projection. The Access location was: ?? > Right Femo ral Artery The Largest Arterial Sheath/Cath placed was ??6F The Hemostasis method used was: ? [employer] SELECTED MEDICATION ADMINISTERED DURING THE PROCEDURE: ??FENTANYL, VERSED ? (Please see PhysioLog report for complete list of medications used.) ?--- RESULTS --- HEMODYNAMICS ??Pressures: ?Site ?Systolic ??Harvey to ??Mean ?lic ?LV ?93 ? 7 ?LV ?96 ? 9 ?Ao ?99 ? 64 ?79 ?Ao ?95 ? 69 ?82 The left ventricular end diastolic press ure was normal. There was no gradient detected across th e aortic valve. LEFT VENTRICULOGRAPHY The left ventricular function was normal . ??There was no mitral regurgitation. FEMORAL ANGIOGRAPHIC FINDINGS The right common femoral artery was norm al in size and had no significant angiographic lesions. The femoral artery sheath was placed wit hin the common femoral artery. CORONARY ANGIOGRAPHIC FINDINGS Left Main Artery: The Left Main is merry l in size and has no significant angiographic lesions. Left Anterior Descending Artery: The Pro ximal LAD is normal in size and has mild luminal irregularities. ??The mid a nd Distal LAD has a 60% stenosis. Circumflex Artery: The Circumflex has a 50% stenosis. Right Coronary Artery: The mid RCA has a 70% lesion and distal RCA has a 90% calcified stenosis. ??Prior stents in th e prox RCA are patent. Referring Physician: BRODERICK LOZADA MD Referring Physician 2: JOAQUÍN CARPENTER MD Diagnostic Attending: Broderick Lozada MD Diagnostic Fellow: Lara Stinson MD As the attending, supervising cardiologi Sina mcknight was present for the entire procedure. Signature date/time: 09/17/2009 2:44:03 PM Procedure Note Broderick Lozada MD - 04/12/2010 [facility] [address] [place] [address] [phone] [email or web address] Final Diagnostic Cardiovascular Cathete rization Report --- SUMMARY OF RESULTS --- > The ventriculogram revealed normal LV function. > Diagnostic cardiac catheterization was performed without any significant complications. > The patient has significant (>70%) les ions in 1 coronary vessel: RCA > The LV end diastolic pressure was norm al. --- PLAN --- > After careful review of the diagnostic images and findings, PCI is indicated electively based upon the indications, r isk factors and anatomy described above. --- PATIENT PRESENTATION --- The patient is a 53 year old male with t he following indications: angina, Positive Nuclear Stress Test, Unstable a ngina . The patient has the following Comorbidit ies/Risk Factors: Dyslipidemia, Hypertension, Prior SC, Prior PCI. Diabetes Oral. : 1955 Sex: male Height: 177.8c m Weight: 109.1kg BSA: 2.26 Allergies: NKA Pre-Roll Builder Values: HCT: 41.8 Platelets : 230.0 Creatinine:.6 --- PROCEDURE --- DIAGNOSTIC CARDIAC PROCEDURE Under local anesthesia, the right femora l artery was accessed with a 6F sheath using modified Seldinger technique. A 6F JL4 catheter was introduced and positioned in the ascending aorta. Left heart cath was performed according to standard procedure. A 6F Pigtail was used to cross the aortic valve and m easure pressures in the left ventricle. Selective coronary arteriography was the n performed using a 6F JL4 catheter to engage the left coronary artery and a 6F JR4 catheter to engage the right coronary artery. Right and left coronary arteriography were performed in multiple views. Using standard procedures, left ventricu lography was performed. A 6F Pigtail was used to cross the aortic valve and m easure pressures in the left ventricle. An injection of Isovue contra st was used for left ventriculography in the 30 degree SAENZ projection. The Access location was: > Right Femoral Artery The Largest Arterial Sheath/Cath placed was 6F The Hemostasis method used was: [employer] SELECTED MEDICATION ADMINISTERED DURING THE PROCEDURE: FENTANYL, VERSED (Please see PhysioLog report for comple te list of medications used.) --- RESULTS --- HEMODYNAMICS Pressures: Site Systolic Diasto Mean lic LV 93 7 LV 96 9 Ao 99 64 79 Ao 95 69 82 The left ventricular end diastolic press ure was normal. There was no gradient detected across th e aortic valve. LEFT VENTRICULOGRAPHY The left ventricular function was normal . There was no mitral regurgitation. FEMORAL ANGIOGRAPHIC FINDINGS The right common femoral artery was norm al in size and had no significant angiographic lesions. The femoral artery sheath was placed wit hin the common femoral artery. CORONARY ANGIOGRAPHIC FINDINGS Left Main Artery: The Left Main is merry l in size and has no significant angiographic lesions. Left Anterior Descending Artery: The Pro ximal LAD is normal in size and has mild luminal irregularities. The mid and Distal LAD has a 60% stenosis. Circumflex Artery: The Circumflex has a 50% stenosis. Right Coronary Artery: The mid RCA has a 70% lesion and distal RCA has a 90% calcified stenosis. Prior stents in the prox RCA are patent. Referring Physician: BRODERICK LOZADA MD Referring Physician 2: JOAQUÍN CARPENTER MD Diagnostic Attending: Broderick Lozada MD Diagnostic Fellow: Lara Stinson MD As the attending, supervising cardiologi st I was present for the entire procedure. Signature date/time: 09/17/2009 2:44:03 PM IMPRESSION [facility] [address] [place] [id number] [phone] [email or web address] Final Interventional Cardiovascular Cat heterization Report --- SUMMARY OF RESULTS --- > The patient has significant (>70%) le sions in 1 coronary vessel(s). > The culprit artery was the RCA. Prior to PCI there was 90% stenosis in the culprit artery. > Following PCI as described in the proc edure section, there was 0% residual stenosis and normal flow in the RCA. > We accomplished complete revasculariza tion. There are severe stenoses remaining in 0 coronary vessels or graft s. Pt has moderate residual disease in LAD and LCX which will be followed clini jeronimo. > Interventional cardiac catheterization was performed without any significant complications. --- PLAN --- >Aspirin is recommended indefinitely and should not be stopped without consultation with a fur feeder. Clopid ogrel (plavix) is recommended for a minimum of 12 months after the drug elut ing stent procedure. --- PATIENT PRESENTATION --- The patient is a 53 year old male. The p rimary indication for PCI was PCI for high risk Non-STEMI or unstable angina. Additional indications include: angina, Positive Nuclear Stress Test, Un stable angina. The patient has the following Comorbidit ies/Risk Factors: Dyslipidemia, Hypertension, Prior SC, Prior PCI. Diabetes Oral. : 1955 Sex: male Height: 177.8c m Weight: 109.1kg BSA: 2.26 Allergies: NKA Pre-Roll Builder Values: HCT: 41.8 Platelets : 230.0 Creatinine:.6 --- PROCEDURE --- CARDIAC ANATOMY AND FUNCTION Natives with > 70% stenosis: RCA Dominance: Right LM Stenosis: 0% INTERVENTIONAL CARDIAC PROCEDURE PCI is indicated for this significant AC C/AHA class B2 lesion in the distal RCA vessel. A 6F KR3H guide catheter was chosen for the intervention . This catheter gave good engagement in the ostium of the LM. The lesion in the distal RCA was crossed successfully with an 0.014 inch [employer] Prowater wire. We then inflated a 3.0 mm diameter of ap proximately 15 mm length [place] in the mid to distal RCA. The maximal inflation pressure was 10-12 cale. This was repeated within the entire mid to distal portion. We were unable to pass a stent across the mid lesion and then inf lated a 3.5 mm diameter of approximately 15 mm length Voyager ballo on in the mid RCA. The maximal inflation pressure was >16 cale. This als o was repeated within the entire mid to distal segment at high pressures. We then used another Prowater as a nataly wire to recross the lesion and over this wire were able to inflate a 3.5 mm diameter of approximately 12 mm length E ndeavor drug-eluting stent in the distal RCA. The maximal inflation pressu re was >16 cale. The stent was successfully deployed. We then inflated a 3.5 mm diameter of ap proximately 30 mm length Eckert drug- eluting stent in the mid RCA. The harman l inflation pressure was >16 cale. The stent was successfully deployed. We then inflated a 3.5 mm diameter of ap proximately 15 mm length Quantum Licking balloon in the mid to distal RC A. The maximal inflation pressure was >16 cale. We then inflated a 3.0 mm diameter of ap proximately 12 mm length Eckert drug- eluting stent in the distal RCA. The max imal inflation pressure was >16 cale. The stent was successfully deployed . The stent balloon was then inflated at the stent overlap. The maxim al inflation pressure was >16 cale. The right common femoral artery was norm al in size and had no significant angiographic lesions. The femoral artery sheath was placed wit hin the common femoral artery. The Access location was: > Right Femoral Artery The Largest Arterial Sheath/Cath placed was 6F The Hemostasis method used was: [employer] SELECTED MEDICATION ADMINISTERED DURING THE PROCEDURE: FENTANYL, VERSED (Please see PhysioLog report for comple te list of medications used.) Referring Physician: BRODERICK LOZADA MD Referring Physician 2: JOAQUÍN CARPENTER MD Interventional Attending: Terrien MD, Ed duvall Interventional Fellow: Lara Stinson MD As the attending, supervising cardiologi st I was present for the entire procedure. Signature date/time: 09/19/2009 15:57:33 Performing Organization Address City/State/ZIP Code Phon e Number [facility] documented in this encounter Visit Diagnoses Not on filedocumented in this encounter Care Teams Mica Plate Layer Hand Relationship Specialty Start Date End Date Joaquín Carpenter MD PCP - General 09/04/09 10/26/12 [address] [place] [address] documented as of this encounter
--- OUTSIDE RECORDS SUMMARY | 2022-02-21 01:13 | XMS_ITS | Encounter Summary ---
:1955 Author Organization [facility] Address [address] [place] [address] Care Team Providers Name Role Phone Joaquín Carpenter MD Primary Care Provider Encounter Details Date Type Department Care Team Description 09/07/2009 - Hospital Encounter [facility] YassinebelaBroderick 09/08/2009 Cardiac/Telemetry MD [facility] [address] [facility] [address] [place] [address] [facility] [phone] [place] [address] Social History Tobacco Use Types Packs/Day [...] Sign Reading Time Taken Comments Blood Pressure 135/74 09/08/2009 0803 EST Pulse 66 09/08/2009 0803 EST Temperature 36.4 ??C (97.5 ??F) 09/08/2009 0803 EST Respiratory Rate 16 09/08/2009 0803 EST Oxygen Saturation 97% 09/08/2009 0803 EST Inhaled Oxygen Concentration - - Weight 108.9 kg (240 lb) 09/07/2009 0822 EST Height 177.8 cm (5' 10) 09/07/2009 0822 EST Body Mass Index 34.44 09/07/2009 0822 EST documented in this encounter Functional Status Cognitive Status Response Date of Assessment Because of a physical, mental, or emotional condition, do Ye s 09/07/2009 you have serious difficulty concentrating, remembering, or making decisions? (5 years old or older) documented as of this encounter Discharge Summaries Burke Brooks MD - 09/07/20092033 EST Discharge Summary Chief Complaint/Reason for Admission: Exertional chest pain and on 08/23/09 a + CL-ETT that demonstrated a sm-mod intense reversible inferior wall defect Principal/Final Diagnosis: USAP S/p PCI MARY X3 RCA Principal Procedure: [facility] Date: 09/07/2009 Secondary Procedures: PCI MARY X3 RCA Condition at Discharge: Good or Stable Patient Active Problem List Diagnoses Code ??? CAD (coronary artery disease) 414.00AE ? ? Hyperlipidemia LDL goal < 70 272.4DJ ??? HTN (hypertension) 401.9AF ??? Diabetes mellitus 250.00A Assessment at Discharge: Telemetry : NSR Vital signs: Patient Vitals in the past 12 hrs: BP Temp Temp src Pulse Resp SpO2 Height Wt - Scale 09/08/09 0803 135/74 mmHg 36.4 ??C (97.5 ??F) Tympanic 66 16 97 % - - 09/07/09 2326 111/66 mmHg 36.4 ??C (97.5 ??F) - 64 16 94 % - - Hospital Course: 53 yo man with hx prior IL, coronary stents X2 2003, HTN, HLP, DM on oral agents who has been experiencing 5/10 exertional chest pain and on 08-23-2009 + CL-ETT that demonstrated a sm-mod intense reversible inferior wall defect. Pt on chronic plavix and aspirin therapy 09-07-09 [facility] : PCI MARY X3 RCA without complications . Right groin - no hematoma Imdur discontinued- headaches. Amlodipine increased to 5 mg daily Medications prior to admission that will be resumed at discharge: Medication Sig Dispense Refill ??? lisinopril (PRINIVIL, ZESTRIL) 5 mg tablet Take 5 mg by mouth daily. ??? METOPROLOL SUCCINATE ORAL Take 150 mg by mouth daily. ??? nitroGLYCERIN (NITROSTAT) 0.[address] 0.4 mg under the tongue as needed for Chest Pain. ??? SIMVASTATIN (ZOCOR ORAL) Take 80 mg by mouth daily. ??? AMITRIPTYLINE HCL (AMITRIPTYLINE ORAL) Take 20 mg by mouth daily. New medications prescribed at discharge: Medication Sig Dispense Refill ??? amlodipine (NORVASC) 5 mg tablet Take 1 Tab by mouth daily. Increased dose of amlodipine 30 Tab 11 ??? aspirin 325 mg tablet Take 1 Tab by mouth daily. Aspirin 325 mg daily for 30 days then aspirin 81 mg daily for lifetime 30 Tab 0 ??? clopidogrel (PLAVIX) 75 mg tablet Take 1 Tab by mouth daily. 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 metformin (GLUCOPHAGE) 1,000 mg tablet Take by mouth 2 times daily with meals. Restart Metformin Mon Take as previously prescribed Metformin 1000 mg in the morning and Metformin 500 mg each evening Indications: TYPE 2 DIABETES MELLITUS 30 Tab 0 Diagnostic Studies: DIAGNOSTIC STUDY RESULTS: [facility] 09-07-2009 Cardiac: LM:Nl LAD:50% mid, 60% distal Cx:40% distal RCA: 90% distal, 70% mid EF:60% LVEDP: 10 There was no gradient across the aortic valve. No wall motion abnormalities and no mitral regurgitation. Diagnostic Summary and Plan: CAD 2 VD RCA is culprit LV Function Nl Interventional Procedure: The RCA was treated with a 3.0 OTW maverick followed by a 3.5 [place], and [place] Voyager Stent delivery required 2 nataly wires. A 3.0x15, 3.5x12 and 3.5x[address] [place] [address] and post dilated with a 3.5 mm Quantum. Yielded a good result and no complications Relevant Studies at Discharge: none Last Lab Results at Discharge: BUN: Lab Results Component Value Date/Time ??? BUN 11 09/08/09 7:38 AM Creatinine: Lab Results Component Value Date/Time ??? CREATININE 0.79 09/08/09 7:38 AM CBC: Lab Results Component Value Date/Time ??? WBC 9.35 09/08/09 7:38 AM ??? RBC 5.19 09/08/09 7:38 AM ??? HGB 15.6 09/08/09 7:38 AM ??? HCT 45.2 09/08/09 7:38 AM ??? MCV 87 09/08/09 7:38 AM ??? MCH 30.1 09/08/09 7:38 AM ??? MCHC 34.5 09/08/09 7:38 AM ??? PLT 251 09/08/09 7:38 AM Electrolytes: Lab Results Component Value Date/Time ??? NA 137 09/08/09 7:38 AM ??? K 4.6 09/08/09 7:38 AM ??? CL 100 09/08/09 7:38 AM ??? CO2 28 09/08/09 7:38 AM Appointments: Dr. Broderick Galloway in [address] Carpenter in 2 weeks cc: MD Broderick SON MD Discharge Summary Completed: 09/08/2009 documented in this encounter Discharge Instructions InstructionsTio-Marleni Cerrato NP - 09/07/2009 Post Procedure Instructions: You had a percutaneous cardiovascular intervention (PCI) with stents placed on 09/07/2009 Your procedure was performed through a small incision in the artery in your right leg. Normal Observations: Soreness or tenderness at the site may last one week but should be steadily improving. Brusing may last two weeks. Formation of a small lump (dime to quarter size) may last up to six weeks. Diet: No added salt, low saturated fat Per cardiac booklet Carbohydrate consistent Activity: No heavy lifting or strenuous activity for 1 weeks Driving: May drive Activity Post Percutaneous Coronary Intervention: Avoid driving on the day of discharge. Driving is possible on the first day if you are not limited by symptoms such as leg pain, shortness of breath or chest pain or if you have not been diagnosed witha serious, abnormal hearth rhythm. For leg incisions, for 48-72 hours after the PCI, avoid climbing stairs and other activity that involves a lot of leg bending. If you have not had a myocardial infarction (heart attack), it is likely you will be able to return to all activities involving moderate exertion 48 hours after the PCI. Please discuss returning to severe exertion (running, manual labor) with your physician prior to discharge. If you had a myocardial infarction, your schedule for returning to work and moderate exertion will be individualized by your physician. If you had an arm approach, keep your arm comfortably straight for the first 24 hours and avoid bending your arm for 48-72 hours. When sleeping, keep the arm elevated to minimize throbbing. No heavy lifting (greater than 10 pounds) for one week. Skin/Wound Care: Resume normal skin care Care of Your Incision: Keep the area clean and dry. Leave the sterile dressing in place for 24 hours. After this, you may shower, but no tub baths or hot tub use for 5 days. Do not apply any powders or lotions to this area. Bathing: No bath or immersion for 1 week Pending Results: Not applicable Quality Measures for Acute Myocardial Infarction or Heart Failure Patients: Not applicable Symptoms to Call Your Doctor About: Chest pain Dizziness or fainting Increased leg or ankle swelling Pain, redness or swelling at the procedure site Rapid, irregular pulse Shortness of breath Weight gain of three or more pounds in two days Call your physician immediately if you experience any of the following: ?? Fever greater than 101, swelling, redness or signs of infection, including yellow discharge Any increasing pain at the site of the wound Numbness or tingling at a point below the wound Skin rash If you have not been able to urinate or 24 hours after leaving the hospital Any recurrence of symptoms that brought you into the hospital initially: Chest pain, shortness of breath, dizziness If you note any signs of bleeding, such as bulging under the skin the size of a golf ball, put direct pressure on the area and call your doctor immediately Medication Instructions: Your medications may be different than when you entered the hospital. Prior to leaving the hospital,please review all of your medications with the nurse at the time of discharge. Do not wait for mail order medications to come. Make sure you can take your medications immediately upon going home. Stent Medications: Because you had a stent placed, you are going to be taking two daily medications to keep your stent open: aspirin and clopidogrel (Plavix). If you develop any rashes, stomach irritation or bleeding while taking these medications, immediately contact your high school music instructor. Do not stop taking aspirin or Plavix without discussing this with your doctor. Appointments: See Broderick Nance MD In 6 weeks. The [facility] cardiology clinic will notify you of appointment date/time See Dr. JOAQUÍN CARPENTER MD in 2 weeks. Please call for an appointment. Cardiac Rehab Referral: You have been referred for cardiac rehabilitation at your local hospital. We expect that the cardiacrehabilitation program will contact you directly regarding a visit to the program. If you do not hear from the cardiac program within two weeks, you should contact your physician's office regarding a re ferral. We will contact your hospital and your primary care physician to let them know you are a good candidate for outpatient cardiac rehabilitation. Follow-up Services Contacted at Discharge: none Heart Failure, Health Risk and Disease Information: Chest Pain Protocol If chest pain, discomfort or angina occurs and lasts for more than a few minutes then: STOP what you are doing Sit or lie down If prescribed nitroglycerin ?? Place one table under your tongue (expect relief in 3-5 minutes) If there is no relief after 5 minutes, place another tablet under your tongue. If there is no relief after an additional 5 minutes, take a third tablet If the discomfort has not been totally relieved after the third tablet, proceed to step 4 (call 911). 4. Call 911 immediately and arrange to be taken to the nearest emergency room 5. Keep the phone number or your local rescue squad taped to your phone along with directions to your home Remember, time is important to minimize heart damage. ?? DO NOT waste time going to the physician's office. ?? DO NOT ATTEMPT TO DRIVE YOURSELF TO THE HOSPITAL! If one or two tablets have given you relief, call your physician. Cholesterol Information The cholesterol in your body comes from two sources: the fats in the food you eat and your liver. Excess fat from foods is converted into LDL cholesterol and carries through the bloodstream to all parts of your body. LDL cholesterol sticks to the vo of your arteries. Over time, this causes arteriesto become blocked. The blockage slows the blood down and heart disease can result. HDL cholesterol helps free some of the LDL cholesterol from the vo of the arteries and returns it to the bloodstream. Low fat diets help lower LDL cholesterol to a goal level. Ask your doctor about your appropriate LDL cholesterol goal. Hypertension Information When your blood pressure is too high, your heart needs to work harder to pump blood through your body. Over time, blade blood pressure can lead to more serious problems. A combination of diet, exerciseand medication can help lower your blood pressure. Medication to lower blood pressure must be taken at the same time every day and over a long period of time. Talk with your physician if you have concerns about your blood pressure. Stroke Risk Factors In the list below, your nurse has identified your risk factors for stroke. Diabetes Hyperlipidemia Hypertension These are the things you can do to reduce your risk for stroke and heart attack: ?? Don't smoke Work with your doctor to keep your diabetes and high pressure under control Have your cholesterol checked periodically Exercise and be as active as possible Eat a healthy diet and keep your weight under control Follow-up Services Contacted at Discharge: none Heart Failure, Health Risk and Disease Information: Not applicable documented in this encounter Medications at Time of Discharge Medication Sig Dispensed Refills Start Date End Date lisinopril (PRINIVIL, Take 5 mg by mouth 0 ZESTRIL) 5 mg tablet daily. METOPROLOL SUCCINATE Take 150 mg by mouth 0 ORAL daily. Takes 3-50 mg. Tablets daily nitroGLYCERIN Place 0.4 mg under the 0 (NITROSTAT) 0.4 mg SL tongue as needed for tablet Chest Pain. AMITRIPTYLINE HCL Take 20 mg by mouth at 0 12/02/2018 (AMITRIPTYLINE ORAL) bedtime. Takes 2-10 mg tablets at bedtime amlodipine (NORVASC) 5 Take 1 Tab by mouth 30 Tab 11 08/2009/11/2009 mg tablet daily. Increased dose of amlodipine aspirin 325 mg tablet Take 1 Tab by mouth 30 Tab 0 09/0710/08/2010 daily. Aspirin 325 mg daily for 30 days then aspirin 81 mg daily for lifetime clopidogrel (PLAVIX) 75 Take 1 Tab by mouth daily. P lavix 75 mg daily uninterrupted for a minimum of one year 30 Tab 11 09/07/19 10 09/10/2009 mg tablet Do not stop or interrupt thi s medication withour discussing with high school music instructor metformin (GLUCOPHAGE) Take by mouth 2 times daily with meals. Restart Metformin Thu 30 Tab 0 09/07/2009 09/10/2009 1,000 mg Take as previously prescribed Metformin [facility] and tabletIndications: type Metformin 500 mg each evenin g, Indications: TYPE 2 DIABETES MELLITUS 2 diabetes mellitus SIMVASTATIN (ZOCOR Take 40 mg by mouth at 0 04/13/2012 ORAL) bedtime. documented as of this encounter Ordered Prescriptions Prescription Sig Dispensed Refills Start Date End Date metformin (GLUCOPHAGE) Take by mouth 2 times daily with meals. Restart Metformin Thu 30 Tab 0 09/07/2009 09/10/2009 1,000 mg Take as previously prescribed Metformin 1000 [facility] and tabletIndications: Metformin 500 mg each evenin g, Indications: TYPE 2 DIABETES MELLITUS type 2 diabetes mellitus clopidogrel (PLAVIX) Take 1 Tab by mouth daily. 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 Aspirin 325 mg daily for 30 days then aspirin 81 mg daily for lifetime amlodipine (NORVASC) 5 Take 1 Tab by mouth 30 Tab 11 08/2009/11/2009 mg tablet daily. Increased dose of amlodipine documented in this encounter Discharge Disposition Disposition Code Departure Means Destination Home or Self Care documented in this encounter Progress Notes Marleni Maldonado NP - 09/11/2009 1029 EST Post Interventional Cardiology [employer] CAD S/p PCI MARY X2 prox & mid LAD & BMS X1 distal LAD 09-10-09 09/07/09 PCI MARY X3 RCA Reinforced teaching with pt about MARY and the importance of dual anitplatelet therapy for a minimum of one year. Teaching done with pt about prasugrel 10 mg daily uninterrupted for 30 days than immediately resume plavix 75 mg daily uninterrupted for a minimum of one year with asa 325 mg for 30 days then asa 81 mg daily for liftetime- Pt verbalized good understanding about the importance of prasugrel daily uninterrupted for 30 days then restart plavix immediately daily uninterrupted for min. 1 year with asa. Pt receptive and very interested in participating in cardiac rehab near his home in [facility]. Hadgiven pt written material on 09-07-09 . Jenae Del Toro RN - 09/08/2009 0001 EST D: See Post-Cath Flowsheet.Pt denied any pain. A: RN to monitor groin site for hematoma/bleeding, tele for arrhythmias, CSMTs in affected extremities, I/O for adequate hydration, and other parameters as required per patient's condition. R: Will continue to monitor/assess and document per protocol. 0655 Right groin dressing CDI,no hematoma.2+ pedal pulses. Marleni Luong NP - 09/07/2009 1724 EST Post Interventional Cardiology [employer] CAD s/p PCI MARY X3 RCA S- No chest pressure/pain/sob. Deny right groin/ leg numbness or pain. Deny lightheadedness/dizzyness. Teaching done with pt about MARY and the importance of uninterrupted Plavix 75 mg daily for a minimumof one year and aspirin 325 mg daily for 30 days then aspirin 81 mg daily lifetime- pt verbalized good understanding about the importance of uninterrupted plavix and aspirin therapy. Risk factor modification discussed with pt. Cardiac rehab encouraged and the pt is receptive and would want to participate at [facility] ([facility]); written materials left with patient. O- Last HgbA1c 6.4 % 07/17/09 per PCP note Cholesterol 175, LDL 103 HDL 43 [facility] - on simvastatin 80 mg daily Telemetry: NSR No arrythmia Hr 65-72/m Blood pressure 114/65, pulse 68, temperature 36.6 ??C (97.9 ??F), temperature source Tympanic, resp.rate 18, height 1.778 m (5' 10), weight 108.863 kg (240 lb), SpO2 98%. Cor: S1S2 RRR Lungs: lory cta ant & lat Abd: + bs soft non-tender Right groin - soft, no bleed, no hematoma Extremities: 2+ dp lory, +CMT , no peripheral edema Neuro: A&O X3 A/P USAP s/p PCI MARY X3 RCA - Hemodynamically stable 1) Plavix 75 mg daily uninterrupted for a minimum or 1 year- has been on chronic plavix therapy 2) Aspirin 325 mg daily for 30 days than aspirin 81 mg daily lifetime 3) Amlodipine increased to 5 mg daily 4) Imdur discontinued 5) continue lisinopril 5 mg daily and metoprolol succinate 150 mg daily 6) simvastatin 80 mg daily continue - lipid profile in am - LDL goal < 70 7) if creatinine stable in am - will resume on thu09-10-09 metformin 1000 mg in am & 500 mg pm- reviewed with pt 8) con't outpt amitriptylline 20 mg daily 9) 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 Broderick Galloway in 6 weeks 11) Cardiac Rehab - encouraged pt receptive and would want to participate at [facility] Broderick Barahona MD - 09/07/2009 0000 EST September 07, 2009 Joaquín Carpenter MD [facility] [address] [place] [address] Carpenter: I am writing in regards to Raul Trujillo. As you know, he is a very pleasant 53-year-old gentleman with known coronary disease, status post myocardial infarction, angioplasty in the past and more recently status post stenting to his right coronary artery 6 years ago. The patient now presents with recurrent anginal symptoms in an accelerated fashion. A stress Cardiolite suggested inferior ischemia. 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 None of these appeared to be flow-limiting. The right coronary artery did have patent stents in his proximal and midsegments. Distally before the PDA there was a 90% focal stenosis. Upstream from this at that terminus of the stented segment, there was a 70% lesion. Left ventricular function was well preserved with an estimated ejection fraction of 60%. Treating the right coronary was quite difficult due to the previously placed stents. Ultimately we were able to dilate and stent the distal through mid segments of the right coronary. A total of 3 drug-eluting stents were placed and a very nice final angiographic result was achieved. As Raul was getting a lot of headaches on his isosorbide, I asked him to discontinue this and double up on his Norvasc. I am going to reassess him in about 6 weeks. I want to thank you for allowing us to participate in your patient's care. If I can be of further assistance, please do not hesitate to call. Sincerely, Broderick Galloway MD 01 48 PM by Broderick Galloway MD / Confirmation: [id number] Dictation ID: [id number] cc:Joaquín Carpenter MD documented in this encounter H&P Notes Kindra Smalls - 09/07/2009 0942 EST Cardiology Admitting H&P Admit Date: 09/07/2009 Date of Service: 09/07/2009 PCP: JOAQUÍN CARPENTER MD Chief Complaint: chest pain on exertion HPI: Patient has 5/10 exertional chest pain which id dull and a ban like substernal ly. Patient states very simmilar to previous chest pain. He has had no nausea or vomiting. It is very reproducible. He has had a Spect stress which demonstrated [address] depression inferolateral with small to moderateJVM reversible inferior wall defect. Patient is on fdc plavix and asa. He has no planned surgeries or bleeding issues. He states several years ago he has had a intervention to is coronaries if [place]. PMH PSH Past Medical History Diagnosis Date ??? IL (myocardial infarction) x2 ??? CAD (coronary artery disease) stents x2 2003 ??? Hypertension ??? Diabetes mellitus ??? Diverticulitis ??? Hyperlipidemia ??? Recurrent infections rt foot 5th toe History reviewed. No pertinent past surgical history. Social History Family History History Substance Use Topics ??? Tobacco Use: Quit quit 17 yrs ago ??? Alcohol Use: Yes rare History reviewed. No pertinent family history. Medications Prescriptions prior to admission Medication Sig Dispense Refill ??? ISOSORBIDE MONONITRATE ORAL Take 30 mg by mouth daily. ??? aspirin 325 mg tablet Take 325 mg by mouth daily. ??? clopidogrel (PLAVIX) 75 mg tablet Take 75 mg by mouth daily. ??? lisinopril (PRINIVIL, ZESTRIL) 5 mg tablet Take 5 mg by mouth daily. ??? METOPROLOL SUCCINATE ORAL Take 150 mg by mouth daily. ??? AMLODIPINE BESYLATE (AMLODIPINE ORAL) Take 2.5 mg by mouth daily. ??? nitroGLYCERIN (NITROSTAT) 0.[address] 0.4 mg under the tongue as needed for Chest Pain. ??? SIMVASTATIN (ZOCOR ORAL) Take 80 mg by mouth daily. ??? METFORMIN HCL (METFORMIN ORAL) Take by mouth daily. 1000mg am,500 mg pm ??? AMITRIPTYLINE HCL (AMITRIPTYLINE ORAL) Take 20 mg by mouth daily. Allergies No Known Allergies Review of Systems: Pertinent items are noted in Subjective/HPI The rest 10 point of review of sytems are negative. Objective/Physical Exam: VS: Patient Vital Signs in the past 8 hrs: BP Pulse Resp Temp SpO2 O2 Flow Rate (L/min) O2 Device FIO2 % 09/07/09 0822 119/63 mmHg 74 16 37 ??C (98.6 ??F) 98 % - None (Room air) - Pain: No data found. Weight: Weight : 108.863 kg (240 lb) Body mass index is 34.44 kg/(m^2). Glucose Readings (last 8 hours): No data found. Exam: General appearance: alert, no distress Head: Normocephalic, without obvious abnormality, atraumatic Ears: hearing grossly intact Throat/Mouth: normal findings: lips normal without lesions and lips, mucosa, and tongue normal; teeth and gums normal Neck: supple, symmetrical, trachea midline, no carotid bruit and no JVD Lymph nodes: Cervical, supraclavicular, and axillary nodes normal. Lungs: clear to auscultation bilaterally Heart: regular rate and rhythm, S1, S2 normal, no murmur, click, rub or gallop Abdomen: soft, non-tender; bowel sounds normal; no masses, no organomegaly Mental Status: awake and alert; oriented to person, place, and time Chest wall: no tenderness Extremities: extremities warm, atraumatic, no cyanosis or edema positive pulses bilat Pulses: 2+ and symmetric Skin: Skin color, texture, turgor normal. No rashes or lesions Data Review: NA Labs: I have personally reviewed CBC: Lab Results Component Value Date/Time ??? WBC 6.67 09/07/09 8:45 AM ??? RBC 4.84 09/07/09 8:45 AM ??? HGB 14.7 09/07/09 8:45 AM ??? HCT 41.8 09/07/09 8:45 AM ??? MCV 86 09/07/09 8:45 AM ??? MCH 30.3 09/07/09 8:45 AM ??? MCHC 35.0 09/07/09 8:45 AM ??? PLT 230 09/07/09 8:45 AM BMP: Lab Results Component Value Date/Time ??? NA 137 09/07/09 8:45 AM ??? K 4.3 09/07/09 8:45 AM ??? CL 102 09/07/09 8:45 AM ??? CO2 28 09/07/09 8:45 AM ??? BUN 14 09/07/09 8:45 AM ??? CREATININE 0.69 09/07/09 8:45 AM ??? GLUCOSEFINGE 174 09/07/09 8:35 AM Coagulation: Lab Results Component Value Date/Time ??? PROTIME 13.2 09/07/09 8:45 AM ??? LABINR 0.9 09/07/09 8:45 AM ??? PTT 28 09/07/09 8:45 AM Cardiac markers: No results found for this basename: CKMBINDEX:3,TROPONINI:3 Other Studies: N/A Assessment: Patinet with exertional chest pain with positive stress concerting for plaque rupture. Plan : [facility] KINDRA SMALLS MD 09/07/2009 9:42 AM documented in this encounter Procedure Notes Inpatient, MD Javier - 09/14/2009 [id number] ESTAssociated Order(s): ECG REPORT - SCANNED; ECG REPORT - SCANNED InpatientPhysician MD - 09/14/2009 1547 ESTAssociated Order(s): ECG REPORT - SCANNED; ECG REPORT - SCANNED InpatientPhysician MD - 09/12/2009 1208 ESTAssociated Order(s): ECG REPORT - SCANNED; ECG REPORT - SCANNED Inpatient, MD Javier - 09/12/2009 1208 ESTAssociated Order(s): CARDIAC CATHERIZATION REPORT - SCANNED; CARDIAC CATHERIZATION REPORT - SCANNED Broderick Galloway MD - 09/07/2009 1213 EST PRELIMINARY CARDIAC CATHETERIZATION REPORT NOT FINAL ATTENDING: Nilesh Fellow/LIP CUTTER AND SCORER: Shantell Indication: A ( 53 ) year old man/woman with USAP and abnormal ETTCL- known CAD Anesthesia used for procedure: A moderate level of anesthesia/conscious sedation was used for this procedure. Contrast Total: 280 ml Estimated Blood Loss: 20 ml Unless otherwise noted, there was no blood loss, specimens removed, cultures obtained or drains retained PROCEDURE: Diagnostic Coronary/Graft Angiography _ Coronary Intervention (PCI)_ LV gram_ Left Heart Cath_ ACCESS: Right: Femoral Artery- Closure: Starclose: Complications: None DIAGNOSTIC STUDY RESULTS: Cardiac: LM:Nl LAD:50% mid, 60% distal Cx:40% distal RCA: 90% distal, 70% mid EF:60% LVEDP: 10 There was no gradient across the aortic valve. No wall motion abnormalities and no mitral regurgitation. Diagnostic Summary and Plan: CAD 2 VD RCA is culprit LV Function Nl ?? PCI is indicated Interventional Procedure: Using standard technique, the RCA was treated with a 3.0 OTW maverick followed by a 3.5 [place], and NCVoyager Stent delivery required 2 nataly wires. A 3.0x15, 3.5x12 and 3.5x[address] and post dilated with a 3.5 mm Quantum. This yielded a good result and no complications. Plan: (See Also Post Procedure Orders) Aspirin 325 mg po qd x 30 day, then 81 qd indefinitely. Aspirin should never be stopped for more than 48 hours without consulting a high school music instructor. Plavix 75 mg po qd x 2 years Lopressor Succinate 50mg Double norvasc D/c Imdur Simvistatin 20 mg po qd? check fasting lipids and LFT? s and adjust to LDL < 70. Post Interventional Conclusion/Physician order for admission status: ? The patient can not go home same day due to > 60 minute distance from PCI center or other co-morbidity that warrants bedded outpatient, overnight stay. documented in this encounter Miscellaneous Notes Scanned Note-Null - InpatientPhysician MD - 09/12/2009 1319 EST canned Note-Null - InpatientPhysician MD - 09/12/2009 1208 EST canned Note-Null - Inpatient, MD Javier - 09/12/2009 1208 EST canned Note-Null - InpatientPhysician MD - 09/12/2009 1208 EST lan of Care - Cheli Kulkarni RN - 09/08/2009 1231 EST Problem: CIRCULATORY STATUS Goal: Patient Has Stable Vital Signs And Fluid Balance D: Patient to be discharged per MD. A: IV removed, catheter tip intact. Telemetry removed. RN reviewed discharge instructions and medications with patient and partner. Patient received prescriptions and discharge instructions. R: Patient expressed good understanding of discharge instructions. They have no questions at this time. Patient dressed independently. They left via wheelchair with eachother. lan of Care - Jason. Rin Guillen RN - 09/07/2009 1300 EST Problem: HOSPITAL ORIENTATION/SAFETY Goal: Oriented To Hospital Environment Outcome: Ongoing D: Patient awake in bed, has no c/o pain at this time. VSS and assessment complete. Right groin CDI with positive pp's A: Admission database completed. Oriented to m5. R: Patient has no further needs at this time. Family with patient and call light within reach, will CTM Joesph Guillen RN canned Note-Null - Inpatient, MD Javier - 09/07/2009 0729 EST canned Note-Null - Inpatient, MD Javier - 09/07/2009 0729 EST documented in this encounter Plan of Treatment Upcoming Encounters Date Type Specialty Care Team Description 09/29/2022 Office Visit Gastroenterology and [facility] [address] [facility], [facility] [address] [place] [address] (Wo rk) documented as of this encounter Procedures Procedure Name Priority Date/Time Associated Comments Diagnosis ECG REPORT - SCANNED 09/14/2009 15:47 Res ults for this EST procedure are i n the results section. ECG REPORT - SCANNED 09/14/2009 15:47 Res ults for this EST procedure are i n the results section. ECG REPORT - SCANNED 09/12/2009 12:08 Res ults for this EST procedure are i n the results section. INVASIVE CARDIOLOGY 09/12/2009 12:08 Resu lts for this REPORT-SCANNED EST procedure are in the results section. GLUCOSE, GLUCOMETER Routine 09/08/2009 11:16 Resu lts for this EST procedure are i n the results section. GLUCOSE, GLUCOMETER Routine 09/08/2009 8:08 Resul ts for this EST procedure are i n the results section. COMPLETE BLOOD COUNT Routine 09/08/2009 7:38 Resu lts for this EST procedure are i n the results section. BUN Routine 09/08/2009 7:38 Results for this EST procedure are i n the results section. CREATININE Routine 09/08/2009 7:38 Results for this EST procedure are i n the results section. CK MB WITH TOTAL CK Routine 09/08/2009 7:38 Resul ts for this EST procedure are i n the results section. LIPID PROFILE Routine 09/08/2009 7:38 Results for this (INCLUDES EST procedure are i n CHOLESTEROL, the results TRIGLYCERIDES, HDL, section. LDL) ELECTROLYTES Routine 09/08/2009 7:38 Results for this EST procedure are i n the results section. GLUCOSE, GLUCOMETER Routine 09/07/2009 20:25 Resu lts for this EST procedure are i n the results section. GLUCOSE, GLUCOMETER Routine 09/07/2009 17:10 Resu lts for this EST procedure are i n the results section. EKG 12-LEAD Routine 09/07/2009 12:27 EST PTT STAT 09/07/2009 8:45 Results for this EST procedure are i n the results section. PROTIME STAT 09/07/2009 8:45 Results for this EST procedure are i n the results section. COMPLETE BLOOD COUNT STAT 09/07/2009 8:45 Resu lts for this EST procedure are i n the results section. BUN STAT 09/07/2009 8:45 Results for this EST procedure are i n the results section. CREATININE STAT 09/07/2009 8:45 Results for this EST procedure are i n the results section. ELECTROLYTES STAT 09/07/2009 8:45 Results for this EST procedure are i n the results section. GLUCOSE, GLUCOMETER Routine 09/07/2009 8:35 Resul ts for this EST procedure are i n the results section. EKG 12-LEAD Routine 09/07/2009 8:04 EST documented in this encounter Results ECG REPORT - SCANNED (09/14/2009 15:47 EST) Specimen Narrative This result has an attachment that is no t available. Procedure Note Inpatient, MD Javier - 09/14/2009 15 :47 EST ECG REPORT - SCANNED (09/14/2009 15:47 EST) Specimen Narrative This result has an attachment that is no t available. Procedure Note Inpatient, MD Javier - 09/14/2009 15 :47 EST ECG REPORT - SCANNED (09/12/2009 12:08 EST) Specimen Narrative This result has an attachment that is no t available. Procedure Note Inpatient, MD Javier - 09/12/2009 12 :08 EST CARDIAC CATHERIZATION REPORT - SCANNED (09/12/2009 12:08 EST) Specimen Narrative This result has an attachment that is no t available. Procedure Note Inpatient, Physician, - 09/12/2009 12 :08 EST (ABNORMAL) GLUCOSE, GLUCOMETER (09/08/2009 11:16 EST) Glucose, 148 (H) 70 - 100 VAUGHN CHRISTY Fingerstick mg/dl [place] [id number] JOHANA CHRISTY Test Performed by Nursing Services LAB Specimen Performing Organization Address [facility] Phon e Number [facility] [address] [place] [address] SERVICES [facility] [address] [place] [address] (ABNORMAL) GLUCOSE, GLUCOMETER (09/08/2009 8:08 EST) Glucose, 202 (H) 70 - 100 VAUGHN CHRISTY Fingerstick mg/dl LAB [place] ID [id number] JOHANA CHRISTY Test Performed by Nursing Services LAB Specimen Performing Organization Address [facility] Phon e Number [facility] [address] [place] [address] SERVICES [facility] [address] [place] [address] CK MB WITH TOTAL CK (09/08/2009 7:38 EST) Pathologist Sig nature CK 113 0 - 250 U/L [facility] LAB MB 2.3 0 - 5.0 ng/ml [facility] CK-MB Index Not calculated, 0 - 2.5 [facility] LAB normal MB. Specimen Blood specimen (specimen) Performing Organization Address [facility] Phon e Number [facility] [address] [place] [address] SERVICES [facility] [address] [place] [address] (ABNORMAL) LIPID PROFILE (INCLUDES CHOLESTEROL, TRIGLYCERIDES, HDL, LDL) (09/08/2009 7:38 EST) Cholesterol 198 mg/dl JOHANA HARRISON Comment: LAB Desirable:<200 Borderline High:200-239 High:>lk=302 Triglycerides 178 (H) 35 - 160 mg/dl [facility] LAB HDL 52 mg/dl JOHANA [facility]ARRISON Comment: LAB Low:<40 High(Desirable):>or=60 LDL, Calculated 110 mg/dl JOHANA [facility]ARRISON Comment: LAB Optimal:<100 Above optimal:100-129 Borderline High:130-159 High:160-189 Very High:>tx=526 Chol/HDL Ratio 3.8 [facility] Fasting? Unknown [facility] Specimen Blood specimen (specimen) Performing Organization Address [facility]/ZIP Code Phon e Number [facility] [address] [place] [address] SERVICES [facility] [address] [place] [address] CREATININE (09/08/2009 7:38 EST) Pathologist Sig nature Creatinine 0.79 0.7 - 1.5 mg/dl [facility] GFR, Calculated >60 ml/min/1.73m2 [facility] Specimen Blood specimen (specimen) Performing Organization Address [facility]/ZIP [facility] Phon e Number [facility] [address] [place] [address] SERVICES [facility] [address] [place] [address] BUN (09/08/2009 7:38 EST) Pathologist Sig nature BUN 11 10 - 26 mg/dl [facility] Specimen Blood specimen (specimen) Performing Organization Address City/[facility]/ZIP Code Phon e Number [facility] [address] [place] [address] SERVICES [facility] [address] [place] [address] ELECTROLYTES (09/08/2009 7:38 EST) Pathologist Sig nature Sodium 137 136 - 145 mEq/L [facility] Potassium 4.6 3.5 - 5.0 mEq/L [facility] Chloride 100 96 - 110 mEq/L [facility] CO2 28 24 - 32 mEq/L [facility] Specimen Blood specimen (specimen) Performing Organization Address City/[facility]/ZIP [facility] Phon e Number [facility] [address] [place] [address] SERVICES [facility] [address] [place] [address] HEMAGRAM (09/08/2009 7:38 EST) Pathologist Sig nature WBC 9.35 4.0 - 10.4 K/cmm [facility] RBC 5.19 4.36 - 5.78 M/cmm [facility] Hemoglobin 15.6 13.8 - 17.3 gm/dl [facility] HCT 45.2 39.5 - 50.2 % [facility] MCV 87 81 - 95 fl [facility] MCH 30.1 27.6 - 33.0 pg [facility] MCHC 34.5 32.8 - 36.4 gm/dl [facility] PLT 251 141 - 320 K/cmm [facility] RDW-CV 13.0 11.8 - 14.1 % [facility] Specimen Blood specimen (specimen) Performing Organization Address [facility] Phon e Number [facility] [address] [place] [address] SERVICES [facility] [address] [place] [address] (ABNORMAL) GLUCOSE, GLUCOMETER (09/07/2009 20:25 EST) Glucose, 116 (H) 70 - 100 VAUGHN CHRISTY Fingerstick mg/dl [place] [id number] JOHANA CHRISTY Test Performed by Nursing Services LAB Specimen Performing Organization Address [facility] Phon e Number [facility] [address] [place] [address] SERVICES [facility] [address] [place] [address] (ABNORMAL) GLUCOSE, GLUCOMETER (09/07/2009 17:10 EST) Glucose, 152 (H) 70 - 100 VAUGHN CHRISTY Fingerstick mg/dl [place] [id number] JOHANA CHRISTY Test Performed by Nursing Services LAB Specimen Performing Organization Address [facility] Phon e Number [facility] [address] [place] [address] SERVICES [facility] [address] [place] [address] PTT (09/07/2009 8:45 EST) Pathologist Sig nature PTT 28Comment: 20 - 35 secs [facility] Therapeutic Heparin range: 60-100 seconds Specimen Blood specimen (specimen) Performing Organization Address [facility] Phon e Number [facility] [address] [place] [address] SERVICES [facility] [address] [place] [id number] PROTIME (09/07/2009 8:45 EST) Pro Time 13.2Comment: Note new 12.2 - 15.5 [facility] prothrombin time secs reference range effective 09 I.N.R. 0.9 0.9 - 1.1 [facility] Comment: Ratio Moderate Intensity Coumadin INR = 2.0-3.0 Adjustments in anticoagulant therapy dose should be based upon the INR and NOT the Pro Time. Specimen Blood specimen (specimen) Performing Organization Address [facility] Phon e Number [facility] [address] [place] [address] SERVICES [facility] [address] [place] [address] HEMAGRAM (09/07/2009 8:45 EST) Pathologist Sig nature WBC 6.67 4.0 - 10.4 K/cmm [facility] RBC 4.84 4.36 - 5.78 M/cmm [facility] Hemoglobin 14.7 13.8 - 17.3 gm/dl [facility] HCT 41.8 39.5 - 50.2 % [facility] MCV 86 81 - 95 fl [facility] MCH 30.3 27.6 - 33.0 pg [facility] MCHC 35.0 32.8 - 36.4 gm/dl [facility] PLT 230 141 - 320 K/cmm [facility] RDW-CV 13.2 11.8 - 14.1 % [facility] Specimen Blood specimen (specimen) Performing Organization Address [facility] Phon e Number [facility] [address] [place] [address] SERVICES [facility] [address] [place] [address] (ABNORMAL) CREATININE (09/07/2009 8:45 EST) Pathologist Sig [facility] Creatinine 0.69 (L) 0.7 - 1.5 mg/dl [facility] GFR, Calculated >60 ml/min/1.73m2 [facility] Specimen Blood specimen (specimen) Performing Organization Address [facility]/ZIP [facility] Phon e Number [facility] [address] [place] [address] SERVICES [facility] [address] [place] [address] BUN (09/07/2009 8:45 EST) Pathologist Sig nature BUN 14 10 - 26 mg/dl [facility] Specimen Blood specimen (specimen) Performing Organization Address [facility]/ZIP Code Phon e Number [facility] [address] [place] [address] SERVICES [facility] [address] [place] [address] ELECTROLYTES (09/07/2009 8:45 EST) Pathologist Sig nature Sodium 137 136 - 145 mEq/L [facility] Potassium 4.3 3.5 - 5.0 mEq/L [facility] Chloride 102 96 - 110 mEq/L [facility] CO2 28 24 - 32 mEq/L [facility] LAB Specimen Blood specimen (specimen) Performing Organization Address City/[facility]/ZIP Code Phon e Number [facility] [address] [place] [address] SERVICES [facility] [address] [place] [address] (ABNORMAL) GLUCOSE, GLUCOMETER (09/07/2009 8:35 EST) Glucose, 174 (H) 70 - 100 VAUGHN CHRISTY Fingerstick mg/dl [place] [id number] VAUGHN CHRISTY Test Performed by Nursing Services LAB Specimen Performing Organization Address City/[facility]/ZIP Code Phon e Number [facility] [address] [place] [address] SERVICES [facility] [address] [place] [address] documented in this encounter Visit Diagnoses Diagnosis CAD (coronary artery disease) Coronary atherosclerosis of unspecified type of vessel, white earth or graft Hyperlipidemia LDL goal < 70 Other and unspecified hyperlipidemia HTN (hypertension) Unspecified essential hypertension documented in this encounter Administered Medications Inactive Administered Medications - up to 3 most recent administrations Medication Order MAR Action Action Date Dose Rate Site amitriptyline (ELAVIL) tablet 25 mg Given 09/07/2009 21:00 EST 25 mg 25 mg, oral, AT BEDTIME, First dose on Thu09/07/09 at 2100, Until Discontinued, Routine amlodipine (NORVASC) tablet 5 mg Given 09/08/2009 9:00 EST 5 mg 5 mg, oral, DAILY, First dose on Thu09/07/09 at 1245, Until Discontinued, Routine aspirin tablet 325 mg Given 09/08/2009 9:00 EST 325 mg 325 mg, oral, DAILY, First dose on Thu09/08/09 at 0900, Until Discontinued, Routine clopidogrel (PLAVIX) tablet 75 mg Given 09/08/2009 9:00 EST 75 mg 75 mg, oral, DAILY, First dose on Thu09/08/09 at 0900, Until Discontinued, Routine lisinopril (PRINIVIL, ZESTRIL) tablet 5 mg Given 09/08/2009 9:00 EST 5 mg 5 mg, oral, DAILY, First dose on Thu09/08/09 at 0900, Until Discontinued, Routine metoprolol XL (TOPROL-XL) tablet 150 mg Given 09/08/2009 9:00 EST 150 mg 150 mg, oral, DAILY, First dose on Thu09/07/09 at 1245, Until Discontinued, Routine sodium chloride 0.9 % (NS) infusion New Bag 09/07/2009 8:45 EST 30 mL/hr 30 mL/hr at 30 mL/hr, 30 mL/hr, intravenous, CONTINUOUS, Starting on Thu09/07/09 at 0830, Until Thu09/08/09 at 1506, Routine, Preprocedure sodium chloride 0.9 % (NS) infusion New Bag 09/07/2009 12:45 EST 75 mL/hr at 75 mL/hr, intravenous, CONTINUOUS, Starting on Thu09/07/09 at 1245, Until Thu09/07/09 at 1644, Routine documented in this encounter Discontinued Medications Medication Sig Discontinue Reason Start Date End Date ISOSORBIDE MONONITRATE Take 30 mg by mouth 09/07/2009 ORAL daily. METFORMIN HCL (METFORMIN Take by mouth ORAL) daily. 1000mg am,500 mg pm clopidogrel (PLAVIX) 75 Take 75 mg by mouth 09/07/2009 mg tablet daily. aspirin 325 mg tablet Take 325 mg by 08/21 mouth daily. AMLODIPINE BESYLATE Take 2.5 mg by 2009 (AMLODIPINE ORAL) mouth daily. documented as of this encounter Historical Medications This list may reflect changes made after this encounter. Medication Sig Dispensed Refills Start Date End Date nitroGLYCERIN (NITROSTAT) Place 0.4 mg under 0 0.4 mg SL tablet the tongue as needed for Chest Pain. METOPROLOL SUCCINATE ORAL Take 150 mg by 0 mouth daily. Takes 3-50 mg. Tablets daily lisinopril (PRINIVIL, Take 5 mg by mouth 0 ZESTRIL) 5 mg tablet daily. AMITRIPTYLINE HCL Take 20 mg by mouth 0 12/02/2018 (AMITRIPTYLINE ORAL) at bedtime. Takes 2-10 mg tablets at bedtime METFORMIN HCL (METFORMIN Take by mouth 0 09/07/2009 ORAL) daily. 1000mg am,500 mg pm SIMVASTATIN (ZOCOR ORAL) Take 40 mg by mouth 0 04/13/2012 at bedtime. AMLODIPINE BESYLATE Take 2.5 mg by 0 0 09/08/2009 (AMLODIPINE ORAL) mouth daily. clopidogrel (PLAVIX) 75 mg Take 75 mg by mouth 0 09/07/2009 tablet daily. aspirin 325 mg tablet Take 325 mg by 0 09/08/2009 mouth daily. ISOSORBIDE MONONITRATE Take 30 mg by mouth 0 09/07/2009 ORAL daily. added in this encounter Active and Recently Administered Medications Times are shown in EST. Scheduled Medication Order 09/06/2009 09/07/2009 09/08/2009 amitriptyline (ELAVIL) tablet 25 mg (CANCELED) 2100 (Given - Provider: Jason. Rin Guillen RN) 25 mg, Oral, AT BEDTIME, First dose on Thu09/07/09 at 2100, Until Discontinued amlodipine (NORVASC) tablet 5 mg 1245 (N ot Given - Provider: Jason. 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) 0900 (Given - Provider: Cheli Kulkarni RN) 5 mg, Oral, DAILY, First dose on Thu09/07/09 at 1245, Until Disc ontinued aspirin tablet 325 mg 0900 (Give n - Provider: Cheli Kulkarni RN) 325 mg, Oral, DAILY, First dose on 09/08/09 at 0900, Until Di scontinued clopidogrel (PLAVIX) tablet 75 mg (CANCELED) 0900 (Given - Provider: Cheli Kulkarni RN) 75 mg, Oral, DAILY, First dose on 09/08/09 at 0900, Until Dis continued lisinopril (PRINIVIL, ZESTRIL) tablet 5 mg (CANCELED) 0900 (Given - Provider: Cheli Kulkarni RN) 5 mg, Oral, DAILY, First dose on 09/08/09 at 0900, Until Disc ontinued metoprolol XL (TOPROL-XL) tablet 150 mg (CANCELED) 1245 (Not Given - Provider: Jason. 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 Rin Guillen RN) at 75 mL/hr, Intravenous, CONTINUOUS, St arting Thu09/07/09 at 1245, Until Thu09/07/09 at 1644 documented in this encounter Orders Medications Ordered That Might Not Have Count Last Ord ered Date First Ordered Date Been Administered acetaminophen (TYLENOL) tablet 650 mg 1 09/07/2009 dextrose 50 % solution 12.5 g 1 09/07/2009 glucagon (human recombinant) injection 1 1 010 mg nitroGLYCERIN (NITROSTAT) SL tablet 0.4 mg 1 09/07 simvastatin (ZOCOR) tablet 80 mg 1 09/07/2009 Lab Orders Without Results Count Last Ordered Date Fir st Ordered Date POCT GLUCOSE 1 09/07/2009 EKG Orders Without Results Count Last Ordered Date Fir st Ordered Date EKG 12-LEAD 2 09/07/2009 Diet Count Last Ordered Date First Ordered Date DIET CONSISTENT CARBOHYDRATE 1 09/07/2009 Nursing Count Last Ordered Date First Ordered Date CARDIAC MONITORING 1 09/07/2009 ENCOURAGE FLUIDS 09/07/2009 INSERT PERIPHERAL IV 1 09/07/2009 Admission Count Last Ordered Date First Ordered Date NOTIFY PPS OF DISCHARGE COMPLETE 09/08/2009 ADMIT TO OBSERVATION 09/07/2009 ADMIT TO OUTPATIENT 09/07/2009 NON-TEACHING SERVICE 09/07/2009 PPS NOTIFICATION OF PATIENT ARRIVAL ON 0 UNIT Discharge Count Last Ordered Date First Ordered Date DISCHARGE PATIENT 1 09/08/2009 documented in this encounter Care Teams Integrity Specialist Relationship Specialty Start Date End Date Joaquín Carpenter MD PCP - General 09/04/09 10/26/12 [address] [place] [address] documented as of this encounter
--- OUTSIDE RECORDS SUMMARY | 2022-02-21 01:13 | XMS_ITS | Encounter Summary ---
:1955 Author Organization [facility] of [facility] rs Address [address] [place] [address] Support Name Relationship Address Phone ANA JOYNER Unavailable [address] [place] [address] LESTERMARY Unavailable [address] [place] [address] ANDREINA SULTANA Unavailable [address] [place] [address] WANDA BATISTA Unavailable [address] [place] [address] Insurance Providers: All historical and current Section [...] Telephone Name to Policy Number Vu CBA [facility] Jul 20 [id number] [phone] DANIEL BATISTA O PATIENT DEDUCTIBL SADIE 2009 206 RGE E [facility]ALTH HD[employer] PLAN EXPRESS PRESCRIPT Jul 20, RXBWEID [id number] [phone] SRINIVAS BATISTA PATIENT SCRIPTS ION [id number] RGE ([id number]) RESTAT PRESCRIPT CBA November 17, 2820 [id number] [phone] Luis BATISTA EO PATIENT ION BLUE [id number] 2 RGE Selected Encounter This section includes the information on record at [place] for the Encounter. Date/Time Encounter Type Encounter Description Reason Provider Source Aug 19, 2021 08:22 TARGETED CASE ADMIN PAT ACTIVTIES ELIDA BENNETT AM MANAGEMENT ([facility]) I[facility] Encounter Template Text not used by [facility] Plan of Treatment: Future Appointments (+ 6 months) and Future Tests (+/- 45 days) The Plan of Treatment section includes future care activities for the patient from all [place] treatmentfacilities. This section includes future appointments and future orders which are active, pending orscheduled.Future Appointments This section includes appointments that were scheduled to occur 6 months from the date of the Encounter, up to a maximum of 20 appointments. The data comes from all [place] treatment facilities. Appointment Date/Time Appointment Type Appointment Facili ty Name Oct 11, 2021 08:15 AM AMBULATORY - NONE [facility] Oct 15, 2021 09:00 AM AMBULATORY - NONE Johan RAMOS [facility] Nov 01, 2021 08:00 AM AMBULATORY - NONE [facility] Advance Directives: All historical and current Section Date Range: From patient's date of to the date document was created. This section includes ALL of a patient's completed or amended [facility] Advance and Rescinded Directives. The entries below indicate that a directive exists for the patient, but an actual copy is not included with this document. The data comes from all [place] facilities. Date Advance Directives Provider Source November 23, 2017 ADVANCE DIRECTIVE JOI DEVRIES ONEAL T [facility] Encounter Notes: All associated encounter notes This section contains the clinical notes associated to the Encounter. 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 Request for PACT assignment and ap pointment coordination as he wishes to transfer all prima ry care to [facility]. Request entered into [facility] system for [facility] to assign Vet to P ACT panel and for appointment coordination as requested. Vet can call direct to coordinate or for follow up inquiry to: Rhoda Patricia: [phone] x [phone]. /jayce/ ELIDA BENNETT REGISTERED NURSE Signed: 08/19/2021 08:23
--- OUTSIDE RECORDS SUMMARY | 2022-02-21 01:13 | XMS_ITS | Encounter Summary ---
:1955 Author Organization [facility] Address [address] [place] [address] Care Team Providers Name Role Phone Joaquín Carpenter MD Primary Care Provider Reason for Visit Reason Onset Date Comments Paperwork request 08/18/2012 Encounter Details Date Type Department Care Team Description 08/18/2012 Telephone [facility] [address], MD Paperwork request Cardiology - [address] [facility] [address] [place], [place] [address] [place] [address] [phone] (Wo rk) Social History Tobacco Use [...] Telephone Encounter - Mary Tanner RN - 08/18/2012 1221 EST Patient calling to request note to be faxed to [facility] stating stents are MRI safe. Called Cal gustafson/ [facility] and confirmed a copy of Cath of 09/13/[address] Alejandra stating [facility] policy dated 04/25/13 would be sufficient. These were faxed to [phone] as per request. elephone Encounter - Puja Godoy - 08/18/2012 1141 EST Calling because he needs paperwork stating he is ok to have an mri because he has stints , the fax number [phone] [facility] documented in this encounter Plan of Treatment Upcoming Encounters Date Type Specialty Care Team Description 09/29/2022 Office Visit Gastroenterology and Shaq Phan, Hepatology [address] [facility], [address] [place] [address] (Wo rk) documented as of this encounter Visit Diagnoses Not on filedocumented in this encounter Care Teams Journalist Relationship Specialty Start Date End Date Joaquín Carpenter MD PCP - General 09/04/09 10/26/12 [address] [place], [place] [id number] documented as of this encounter
--- OUTSIDE RECORDS SUMMARY | 2022-02-21 01:13 | XMS_ITS | Encounter Summary ---
:1955 Author Organization [facility] Address [address] [place] [address] Care Team Providers Name Role Phone Joaquín Carpenter MD Primary Care Provider Encounter Details Date Type Department Care Team Description 11/23/[address] [facility] Cardiology Ta Joaquín esparza MD - Jenelle [address] [place], [place] [id number] [place] [address] [phone] Social History Tobacco Use Types Packs/Day Years Used Date Former Smoker 20 Comments: quit 17 yrs ago Alcohol Use [...] Visit Gastroenterology and Shaq Phan, Hepatology [address] [facility] [address] [place] [address] (Wo rk) documented as of this encounter Visit Diagnoses Not on filedocumented in this encounter Care Teams Inhalation Therapist Relationship Specialty Start Date End Date Joaquín Carpenter MD PCP - General 09/04/09 10/26/12 [address] [place] [address] documented as of this encounter
--- OUTSIDE RECORDS SUMMARY | 2022-02-21 01:13 | XMS_ITS | Continuity of Care Document ---
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 It does not include entries that were removed or entered in error. 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 (ICD-9-CM 354.0) Coronary Active Condition Oct 15, [place] atherosclerosis 2021 Entered [facility] By: [facility] FRIDA ORTIZ Comment: 9 stents Diabetes mellitus Active Condition PO RT [facility] Diabetes Mellitus Active Condition [place] Type II or [facility] unspecified * (ICD-9-CM 250.00) Diverticular Active Condition [place] disease 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 lesser toe [facility] FRIDA ORTIZ Comment: right 5th toe History of Active Condition Oct 15, [place] arthroscopic 2021 Entered [facility] procedure on By: [facility] shoulder FRIDA ORTIZ Comment: bilateral shoulders History of repair Active Condition PO RT of umbilical [place] TE hernia [facility] Hyperlipidemia Active Condition [place] [facility] Hypertension Active Condition [facility] Hypertension Active Condition GUERRERO Banda IVER (SNOMED CT [facility] C [id number]) Insomnia Active Condition GUERRERO Banda [facility] Non-alcoholic Active Condition [place] fatty liver [facility] E [facility] Obesity Active Condition GUERRERO ARCHIBALD R [facility] Osteoarthritis of Active Condition PO RT hip [facility] Depression * Inactive Condition 10/09/2014 GUERRERO MONTOYA (ICD-9-CM [facility] 311./300.4) Diagnosis: active Diagnosis [place] ICD-10-CM R10.10 ERASMO RLOTTE Upper abdominal [facility] pain, unspecifiedwith Provider Comments: Upper Abdominal Pain, unspecified Medications Combined list of outpatient medications from Department of Defense and [facility] Affairs facilities. Medications provided include 1) outpatient medications from the last 15 months, and 2) patient-reported medications. Medication Details Route Status Patient Prescription Prescription Last Ordering Order Source Instructions Expires Number Dispense Provider Date Date AMLODIPINE TAKE ONE ORAL ACTIVE CALENDINE 10/15/ C.W. BESYLATE TABLET ,WARNER 2021 BILL 10MG TAB BY MOUTH YOUNG EVERY DEPT OF DAY [facility] AMLODIPINE TAKE ONE ORAL ACTIVE RACHEL,JIN 02/01/ ST. BESYLATE TABLET AEL D 2012 [place] 10MG TAB BY MOUTH RY CB EVERY DAY ASPIRIN TAKE ONE ORAL ACTIVE RACHEL,JIN 02/01/ ST. 325MG TAB TABLET AEL D 2012 [place] BY MOUTH RY [facility] EVERY DAY ASPIRIN TAKE ONE ORAL ACTIVE CALENDINE 10/15/ C.W . 81MG TAB,EC TABLET ,WARNER 2021 PEDRO PABLO L BY MOUTH YOUNG EVERY DEPT OF DAY [facility] DAPAGLIFLOZ TAKE ONE ORAL ACTIVE SAUVIGNE, IN 5MG TAB TABLET 2018 [place] BY MOUTH JCT EVERY [facility] DAY DAPAGLIFLOZ TAKE ONE ORAL ACTIVE CALENDINE 10/15/ C.W. IN 5MG TAB TABLET ,WARNER 2021 BILL BY MOUTH YOUNG EVERY DEPT OF DAY [facility] EXENATIDE INJECT SUBCUT ACTIVE SAUVIGNE, WH ITE 2MG/PEN 2MG ANEOUS 2018 RIVER INJ,SUSP,SA SUBCUTAN JCT EOUSLY [facility] ONCE A WEEK EXENATIDE INJECT SUBCUT ACTIVE CALENDINE 10/15/ C. W. INJ,SOLN SUBCUTAN ANEOUS ,WARNER 2021 PEDRO PABLO L EOUSLY NADIA TWICE DEPT OF DAILY [facility] (BEFORE BREAKFAS T AND SUPPER) INSULIN,GLA INJECT SUBCUT ACTIVE SAUVIGNE, 11/16/ WHITE RGINE,HUMAN 33 UNITS ANEOUS PATRICK E 2018 R IVER 100 UNT/ML SUBCUTAN JCT INJ EOUSLY [facility] TWICE A DAY LISINOPRIL TAKE ONE ORAL ACTIVE SAUVIGNE, 08/12/ ST. 5MG TAB TABLET 2010 [place] BY MOUTH RY [facility] EVERY DAY LISINOPRIL TAKE ONE ORAL ACTIVE CALENDINE 10/15/ C.W. 5MG TAB TABLET ,WARNER 2021 BILL BY MOUTH YOUNG DAILY AT DEPT OF BEDTIME [facility] LISPRO INJECT SUBCUT ACTIVE CALENDINE 10/15/ C.W. 75/25 40 UNITS ANEOUS ,WARNER 2021 BILL INSULIN SUBCUTAN NADIA *KWIKPEN* EOUSLY DEPT OF INJ TWICE A [facility] DAY METFORMIN TAKE ONE ORAL ACTIVE CALENDINE 10/15/ C .W. HCL 1000MG TABLET ,2021 BILL TAB BY MOUTH YOUNG TWICE A DEPT OF DAY [facility] METFORMIN TAKE ONE ORAL ACTIVE FATTERUSS 08/12/ S T. HCL 1000MG TABLET MOY Mendoza 2010 NANI SBU TAB BY MOUTH NE L RY [facility] TWICE A DAY METOPROLOL TAKE 150 ORAL ACTIVE CALENDINE 10/15/ C.W. (TOPROL-XL BY MOUTH ,2021 BI LL EQV) TAB,SA EVERY YOUNG DAY DEPT OF [facility] METOPROLOL TAKE ORAL ACTIVE RACHEL,JIN 02/01/ ST. SUCCINATE THREE AEL D 2012 [place] 50MG TAB,SA TABLETS RY CBO C BY MOUTH EVERY DAY MULTIVITAMI TAKE ONE ORAL ACTIVE CALENDINE 10/15/ C.W. NS TABLET ,2021 BILL W/MINERALS BY MOUTH YOUNG TAB EVERY DEPT OF DAY [facility] RANOLAZINE TAKE ONE ORAL ACTIVE CALENDINE 10/15/ C.W. 500MG TABLET ,2021 BILL TAB,SA BY MOUTH YOUNG TWICE A DEPT OF DAY [facility] ROSUVASTATI TAKE ONE ORAL ACTIVE ROMA,SO 10/09/ ST. N CA 40MG TABLET MAURY 2014 [place] TAB BY MOUTH RY [facility] EVERY DAY SERTRALINE TAKE ONE ORAL ACTIVE SAUVIGNE, 11/10/ WHITE HCL 50MG TABLET PATRICK2017 RIVER TAB BY MOUTH JCT Q PM [facility] TRAZODONE TAKE ONE ORAL ACTIVE SAUVIGNE, 11/16/ W NATI HCL 50MG TABLET PATRICK E 2018 RIVER TAB BY MOUTH JCT AT [facility] BEDTIME TRAZODONE TAKE ONE ORAL ACTIVE CALENDINE 10/15/ C .W. HCL 50MG TABLET ,WARNER Mendoza 2021 BILL TAB BY MOUTH YOUNG DAILY AT DEPT OF BEDTIME [facility] Immunizations Combined list of available immunizations from the Department of Defense and Veterans Affairs facilities. Immunization Series Date Administered Site Reaction Lot CVX Drug St atus Comments Source Given By Number Code Agent Based Modeler INFLUENZA, complet C.W. UNSPECIFIED 2020 ed BI LL FORMULATION YO ML DEPT OF [facility] INFLUENZA, complet Weidma n WHITE SEASONAL, 2017 ed RIVE R INJECTABLE [facility] INFLUENZA, complet At wor k WH[place] SE[place]ONAL, 2016 ed [place]IVE [facility] INJECTABLE [facility] [facility] INFLUENZA, complet lmd WHITE UNSPECIFIED 2015 ed RI ISABELLE FORMULATION ONEAL T [facility] ZOSTER LIVE complet Proxi mal ST. 2016 ed Left Arm FELIX BU RY [facility] INFLUENZA, complet Weidma nn WHITE UNSPECIFIED 2014 ed Industri e RIVER FORMULATION s ONEAL T [facility] INFLUENZA, complet WHITE UNSPECIFIED 2013 ed RI ISABELLE FORMULATION ONEAL T [facility] INFLUENZA, complet WHITE UNSPECIFIED 2010 ed RI ISABELLE FORMULATION ONEAL T [facility] INFLUENZA, complet Weidma nn WHITE UNSPECIFIED 2009 ed Electric a RIVER FORMULATION l ONEAL T [facility] NOVEL complet WHITE INFLUENZA-H1N 2008 ed RIVER -, ALL JCT FORMULATIONS V [facility] INFLUENZA, complet WHITE UNSPECIFIED 2008 ed RI ISABELLE FORMULATION ONEAL T [facility] TDAP complet WHITE 2007 ed [place] [facility] PNEUMOCOCCAL, complet WHITE UNSPECIFIED 2005 ed RI ISABELLE FORMULATION ONEAL T [facility] INFLUENZA, complet ST. UNSPECIFIED 2004 ed SHIN HNSBU FORMULATION RY [facility] PNEUMOCOCCAL, complet Sit e:Left ST. UNSPECIFIED 2002 ed Deltoid [place] FORMULATION RY [facility] TD(ADULT) complet W NATI UNSPECIFIED 1998 ed RI ISABELLE FORMULATION ONEAL [facility] TD(ADULT) 139 complet W NATI UNSPECIFIED 1999 ed RI ISABELLE FORMULATION ONEAL [facility] Results Combined list of recent chemistry, hematology and other laboratory results from Department of Defense and Veterans Affairs, ranging from 15 months to all on record, depending upon the facility. Order Results Value Reference Date Interpretation Specimen Commen ts Source Name Range CBC LEUKOCYTES 7.2 4.00 - 10/11 Specimen Type : BLOOD [place] (AUTO [#/VOLUME] 10*3/uL 10.60 No comment en ELBA DIFF) IN BLOOD Ordering Provi yogesh: WARNER ORTIZ [facility] Report Released Date/Time: Aug 26, 2021 11:02 AM Reporting Lab: Johan ZUNIGA [facility] [address] [facility] [address] Performing Lab: Johan ZUNIGA [facility] [address] [facility] [address] CBC ERYTHROCYT 5.17 4.23 - 10/11 Specimen Type : BLOOD [place] (AUTO ES 10*6/uL 5.75 No comment enter ed. ELBA DIFF) [#/VOLUME] Ordering Pro vider: WARNER ORTIZ [facility] IN BLOOD Report Release d Date/Time: Aug 26, 2021 11:02 AM BY Reporting Lab: Johan ZUNIGA [facility] AUTOMATED [address] [place] [address] COUNT Performing Lab: Johan ZUNIGA [facility] [address] [place] [address] CBC HEMOGLOBIN 14.9 12.8 - 10/11 Specimen Type : BLOOD [place] (AUTO [MASS/VOLU g/dL 17.0 No comment en ELBA DIFF) ME] IN Ordering Provid er: WARNER ORTIZ [facility] BLOOD Report Released Date/Time: Aug 26, 2021 11:02 AM Reporting Lab: Johan ZUNIGA [facility] [address] [facility] [address] Performing Lab: Johan ZUNIGA [facility] [address] [place] [address] [address] [facility] [address] CBC HEMATOCRIT 45.1 39.3 - 10/11 Specimen Type : BLOOD [place] (AUTO [VOLUME %{vol} 50.0 No comment enter ed. ELBA DIFF) FRACTION] Ordering Prov ider: WARNER ORTIZ [facility] OF BLOOD Report Release d Date/Time: Aug 26, 2021 11:02 AM Reporting Lab: Johan ZUNIGA DEPT OF [place] [phone] Performing Lab: Johan ZUNIGA [facility] [place] [address] CBC MCV 87.2 fL 79.7 - 10/11 Specimen Type: B LOOD [place] (AUTO [ENTITIC 99.5 No comment ente red. ELBA DIFF) VOLUME] BY Ordering Pro vider: WARNER ORTIZ [facility] AUTOMATED Report Releas ed Date/Time: Aug 26, 2021 11:02 AM COUNT Reporting Lab: Johan ZUNIGA DEPT [place] [phone] Performing Lab: Johan ZUNIGA [facility] [place] [phone] CBC MCH 28.8 pg 25.5 - 10/11 Specimen Type: B LOOD [place] (AUTO [ENTITIC 33.6 No comment ente red. ELBA DIFF) MASS] BY Ordering Provi yogesh: WARNER ORTIZ [facility] AUTOMATED Report Releas ed Date/Time: Aug 26, 2021 11:02 AM COUNT Reporting Lab: Johan ZUNIGA [facility] [place] [phone] Performing Lab: Johan ZUNIGA [facility] [place] [phone] CBC MCHC 33.0 30.9 - 10/11 Specimen Type: B LOOD [place] (AUTO [MASS/VOLU g/dL 35.1 No comment en tered. ELBA DIFF) ME] BY Ordering Provid er: WARNER ORTIZ [facility] AUTOMATED Report Releas ed Date/Time: Aug 26, 2021 11:02 AM COUNT Reporting Lab: Johan ZUNIGA DEPT OF [address] [address] Performing Lab: Johan ZUNIGA [facility] OF [facility] [address] [place] [address] CBC PLATELETS 248 160 - 410 10/11 Specimen Typ e: BLOOD [place] (AUTO [#/VOLUME] 10*3/uL /2021 No comment en tered. ELBA DIFF) IN BLOOD Ordering Provi yogesh: WARNER ORTIZ [facility] BY Report Released Date/Time: Aug 26, 2021 11:02 AM AUTOMATED Reporting Lab : Johan ZUNIGA [facility] COUNT [address] [place] [facility] [address] Performing Lab: Johan ZUNIGA [facility] [address] [facility] [address] CBC ERYTHROCYT 42.6 fL 37.1 - 10/11 Specimen Type : BLOOD [place] (AUTO E 49.0 /2021 No comment enter ed. ELBA DIFF) DISTRIBUTI Ordering Pro vider: WARNER ORTIZ [facility] ON WIDTH Report Release d Date/Time: Aug 26, 2021 11:02 AM [RATIO] BY Reporting La b: Johan ZUNIGA [facility] AUTOMATED [address] [place] [place] [address] COUNT Performing Lab: Johan ZUNIGA [facility] [address] [place] [address] CBC PLATELET 10.4 fL 8.9 - 12.3 10/11 Specimen Typ e: BLOOD [place] (AUTO MEAN /2021 No comment enter ed. ELBA DIFF) VOLUME Ordering Provid er: WARNER ORTIZ [facility] [ENTITIC Report Release d Date/Time: Aug 26, 2021 11:02 AM VOLUME] IN Reporting La b: Johan ZUNIGA [facility] [place] [address] [place] [address] AUTOMATED Performing La b: Johan ZUNIGA [facility] COUNT [address] [place] [address] CBC NUCLEATED 0.00 0.00 - 10/11 Specimen Type: BLOOD [place] (AUTO ERYTHROCYT 10*3/uL 0.12 No comment en tered. ELBA DIFF) ES Ordering Provid er: WARNER ORTIZ [facility] [#/VOLUME] Report Relea sed Date/Time: Aug 26, 2021 11:02 AM IN BLOOD Reporting Lab: Johan ZUNIGA [facility] [place] [facility] [place] [address] [place] [address] AUTOMATED Performing La b: Johan ZUNIGA [facility] COUNT [address] [place] [address] CBC NUCLEATED 0.0 0.0 - 0.2 03 Specimen Typ e: BLOOD [place] (AUTO ERYTHROCYT /100{WBC /2021 No comment e ntered. ELBA DIFF) ES s} Ordering Provid er: WARNER ORTIZ [facility] [PRESENCE] Report Relea sed Date/Time: Aug 26, 2021 11:02 AM IN BLOOD Reporting Lab: Johan ZUNIGA [facility] [place] [facility] [place] [address] [place] [address] AUTOMATED Performing La b: Johan ZUNIGA [facility] COUNT [address] [place] [address] CBC NEUTROPHIL 4.32 2.2 - 7.4 10/11 Specimen Ty pe: BLOOD [place] (AUTO S 10*3/uL /2021 No comment enter ed. ELBA DIFF) [#/VOLUME] Ordering Pro vider: WARNER ORTIZ [facility] IN BLOOD Report Release d Date/Time: Aug 26, 2021 11:02 AM BY Reporting Lab: Johan ZUNIGA [facility] AUTOMATED [address] [place] [address] COUNT Performing Lab: Johan ZUNIGA [facility] [address] [place] [address] CBC LYMPHOCYTE 2.16 1.0 - 3.7 03 Specimen Ty pe: BLOOD [place] (AUTO S 10*3/uL /2021 No comment enter ed. ELBA DIFF) [#/VOLUME] Ordering Pro vider: WARNER ORTIZ [facility] IN BLOOD Report Release d Date/Time: Aug 26, 2021 11:02 AM BY Reporting Lab: Johan ZUNIGA [facility] AUTOMATED [address] [place] [address] COUNT Performing Lab: Johan ZUNIGA [facility] [address] [address] [facility] [address] CBC MONOCYTES 0.57 0.3 - 0.9 10/11 Specimen Typ e: BLOOD [place] (AUTO [#/VOLUME] 10*3/uL No comment en tered. ELBA DIFF) IN BLOOD Ordering Provi yogesh: WARNER ORTIZ [facility] BY Report Released Date/Time: Aug 26, 2021 11:02 AM AUTOMATED Reporting Lab : Johan ZUNIGA [facility] COUNT [address] [facility] [address] Performing Lab: Johan ZUNIGA [facility] [address] [facility] [address] CBC EOSINOPHIL 0.08 0.0 - 0.5 10/11 Specimen Ty pe: BLOOD [place] (AUTO S 10*3/uL No comment enter ed. ELBA DIFF) [#/VOLUME] Ordering Pro vider: WARNER ORTIZ [facility] IN BLOOD Report Release d Date/Time: Aug 26, 2021 11:02 AM BY Reporting Lab: Johan ZUNIGA [facility] AUTOMATED [address] [facility] [address] COUNT Performing Lab: Johan ZUNIGA [facility] [address] [facility] [address] CBC BASOPHILS 0.05 0.0 - 0.1 10/11 Specimen Typ e: BLOOD [place] (AUTO [#/VOLUME] 10*3/uL No comment en tered. ELBA DIFF) IN BLOOD Ordering Provi yogesh: WARNER ORTIZ [facility] BY Report Released Date/Time: Aug 26, 2021 11:02 AM AUTOMATED Reporting Lab : Johan ZUNIGA [facility] COUNT [address] [facility] [address] Performing Lab: Johan ZUNIGA [facility] [address] [facility] [address] CBC NEUTROPHIL 60.0 39.3 - 10/11 Specimen Type : BLOOD [place] (AUTO S/100 73.5 /2021 No comment enter ed. ELBA DIFF) LEUKOCYTES Ordering Pro vider: WARNER ORTIZ [facility] IN BLOOD Report Release d Date/Time: Aug 26, 2021 11:02 AM Reporting Lab: Johan ZUNIGA [facility] [address] [facility] [address] Performing Lab: Johan ZUNIGA [facility] [address] [facility] [address] CBC LYMPHOCYTE 30.0 16.2 - 10/11 Specimen Type : BLOOD [place] (AUTO S/100 48.2 No comment enter ed. ELBA DIFF) LEUKOCYTES Ordering Pro vider: WARNER ORTIZ [facility] IN BLOOD Report Release d Date/Time: Aug 26, 2021 11:02 AM BY Reporting Lab: Johan ZUNIGA [facility] AUTOMATED [address] [place] [address] COUNT Performing Lab: Johan ZUNIGA [facility] [address] [facility] [address] CBC MONOCYTES/ 7.9 5.2 - 11.4 10/11 Specimen T ype: BLOOD [place] (AUTO No comment enter ed. ELBA DIFF) LEUKOCYTES Ordering Pro vider: WARNER ORTIZ [facility] IN BLOOD Report Release d Date/Time: Aug 26, 2021 11:02 AM BY MANUAL Reporting Lab : Johan ZUNIGA [facility] COUNT [address] [facility] [address] Performing Lab: Johan ZUNIGA [facility] [address] [facility] [address] CBC EOSINOPHIL 1.1 0.4 - 7.6 10/11 Specimen Ty pe: BLOOD PORT (AUTO S/100 No comment enter ed. ELBA DIFF) LEUKOCYTES Ordering Pro vider: WARNER ORTIZ [facility] IN BLOOD Report Release d Date/Time: Aug 26, 2021 11:02 AM BY Reporting Lab: Johan ZUNIGA [facility] AUTOMATED [address] [place] [address] COUNT Performing Lab: Johan ZUNIGA [facility] [address] [facility] [address] CBC BASOPHILS 0.7 0.1 - 1.2 10/11 Specimen Typ e: BLOOD PORT (AUTO [#/VOLUME] No comment en tered. ELBA DIFF) IN BLOOD Ordering Provi yogesh: WARNER ORTIZ [facility] BY Report Released Date/Time: Aug 26, 2021 11:02 AM AUTOMATED Reporting Lab : Johan ZUNIGA [facility] COUNT [address] [facility] [address] Performing Lab: Johan ZUNIGA DEPT OF [address] [address] CBC IMMATURE 0.02 0.0 - 0.1 10/11 Specimen Type : BLOOD PORT (AUTO GRANULOCYT 10*3/uL No comment en tered. ELBA DIFF) ES Ordering Provid er: WARNER ORTIZ [facility] [#/VOLUME] Report Relea sed Date/Time: Aug 26, 2021 11:02 AM IN BLOOD Reporting Lab: Johan ZUNIGA [facility] [place] [facility] [place] [address] [facility] [address] AUTOMATED Performing La b: Johan ZUNIGA [facility] COUNT [address] [facility] [address] CBC NEUTROPHIL 0.3 0.0 - 0.7 10/11 Specimen Ty pe: BLOOD PORT (AUTO S/100 No comment enter ed. ELBA DIFF) LEUKOCYTES Ordering Pro vider: WARNER ORTIZ [facility] IN BLOOD Report Release d Date/Time: Aug 26, 2021 11:02 AM Reporting Lab: Johan ZUNIGA DEPT OF [address] [address] Performing Lab: Johan ZUNIGA DEPT OF [address] [address] CBC SERVICE DONE 10/11 Specimen Type: B LOOD PORT (AUTO COMMENT /2021 No comment enter ed. ELBA DIFF) Ordering Provid er: WARNER ORTIZ [facility] Report Released Date/Time: Aug 26, 2021 11:02 AM Reporting Lab: Johan ZUNIGA DEPT OF [address] [address] Performing Lab: Johan ZUNIGA DEPT OF [address] [address] COMPREHE SODIUM 138 136 - 144 10/11 Specimen Type : PLASMA PORT NSIVE [MOLES/VOL meq/L /2021 Comment: See EVAL ELBA METABOLI UME] IN Ordering Provi yogesh: WARNER ORTIZ [facility] PANEL SERUM OR Report Release d Date/Time: Aug 26, 2021 11:02 AM PLASMA Reporting Lab: Johan ZUNIGA DEPT OF [address] [address] Performing Lab: Johan ZUNIGA DEPT OF [address] [address] COMPREHE POTASSIUM 4.3 3.6 - 5.1 10/11 Specimen Ty pe: PLASMA PORT NSIVE [MOLES/VOL meq/L /2021 Comment: See PATRICIA ELBA METABOLI UME] IN Ordering Provi yogesh: WARNER ORTIZ [facility] PANEL SERUM OR Report Release d Date/Time: Aug 26, 2021 11:02 AM PLASMA Reporting Lab: Johan ZUNIGA DEPT OF [address] [address] Performing Lab: Johan ZUNIGA DEPT OF [address] [address] COMPREHE CHLORIDE 101 98 - 107 10/11 Specimen Type : PLASMA PORT NSIVE [MOLES/VOL meq/L /2021 Comment: See PATRICIA ELBA METABOLI UME] IN Ordering Provi yogesh: WARNER ORTIZ [facility] PANEL SERUM OR Report Release d Date/Time: Aug 26, 2021 11:02 AM PLASMA Reporting Lab: Johan ZUNIGA DEPT OF [address] [address] Performing Lab: Johan ZUNIGA DEPT OF [address] [address] COMPREHE CARBON 28 meq/L 22 - 32 10/11 Specimen Type: PLASMA PORT NSIVE Comment: See Sveta MOSES ELBA METABOLI TOTAL Ordering Provi yogesh: WARNER ORTIZ [facility] PANEL [MOLES/VOL Report Relea sed Date/Time: Aug 26, 2021 11:02 AM UME] IN Reporting Lab: Johan ZUNIGA [facility] SERUM OR [address] [place] [address] PLASMA Performing Lab: Johan ZUNIGA DEPT OF [address] [address] COMPREHE ANION GAP 9 meq/L 4 - 13 10/11 Specimen Type : PLASMA PORT NSIVE IN SERUM /2021 Comment: See E MOSES ELBA METABOLI OR PLASMA Ordering Pro vider: WARNER ORTIZ [facility] C PANEL Report Released Date/Time: Aug 26, 2021 11:02 AM Reporting Lab: Johan ZUNIGA DEPT OF [address] [address] Performing Lab: Joahn ZUNIGA DEPT OF [address] [address] COMPREHE GLUCOSE 155 72 - 105 10/11 H Specimen Type: PLASMA PORT NSIVE [MASS/VOLU mg/dL /2021 Comment: See PATRIICA ARREOLA METABOLI ME] IN Ordering Provi yogesh: WARNER ORTIZ [facility] PANEL SERUM OR Report Release d Date/Time: Aug 26, 2021 11:02 AM PLASMA Reporting Lab: Johan ZUNIGA DEPT OF [address] [phone] Performing Lab: Johan ZUNIGA DEPT OF [address] [address] COMPREHE UREA 11 mg/dL 10/11 Specimen Type: PLASMA PORT NSIVE NITROGEN Comment: See E MOSES GRECOELBA METABOLI [MASS/VOLU Ordering Pr ovider: WARNER ORTIZ [facility] PANEL ME] IN Report Released Date/Time: Aug 26, 2021 11:02 AM SERUM OR Reporting Lab: Johan ZUNIGA DEPT OF [facility] PLASMA [address] [place] [phone] Performing Lab: Johan ZUNIGA DEPT OF [address] [address] COMPREHE CREATININE 0.76 0.7 - 1.3 10/11 Specimen T ype: PLASMA PORT NSIVE [MASS/VOLU mg/dL Comment: See PATRICIA ARREOLA METABOLI ME] IN Ordering Provi yogesh: CALENDINE,WARNER M [facility] PANEL SERUM OR Report Release d Date/Time: Aug 26, 2021 11:02 AM PLASMA Reporting Lab: Johan ZUNIGA DEPT OF [address] [phone] Performing Lab: Johan ZUNIGA DEPT OF [address] [address] COMPREHE CALCIUM 9.9 8.6 - 10.4 10/11 Specimen Typ e: PLASMA PORT NSIVE [MASS/VOLU mg/dL /2021 Comment: See EVAL ELBA METABOLI ME] IN Ordering Provi yogesh: WARNER ORTIZ [facility] PANEL SERUM OR Report Release d Date/Time: Aug 26, 2021 11:02 AM PLASMA Reporting Lab: Johan ZUNIGA DEPT OF [address] [address] Performing Lab: Johan ZUNIGA DEPT OF [place] [phone] COMPREHE PROTEIN 7.5 g/dL 6.0 - 8.2 10/11 Specimen Typ e: PLASMA PORT NSIVE [MASS/VOLU /2021 Comment: See EVAL ELBA METABOLI ME] IN Ordering Provi yogesh: WARNER ORTIZ [facility] PANEL SERUM OR Report Release d Date/Time: Aug 26, 2021 11:02 AM PLASMA Reporting Lab: Johan ZUNIGA DEPT OF [address] [address] Performing Lab: Johan ZUNIGA DEPT OF [address] [address] COMPREHE ALBUMIN 4.3 g/dL 3.5 - 5.0 10/11 Specimen Typ e: PLASMA PORT NSIVE [MASS/VOLU /2021 Comment: See EVAL ELBA METABOLI ME] IN Ordering Provi yogesh: WARNER ORTIZ [facility] PANEL SERUM OR Report Release d Date/Time: Aug 26, 2021 11:02 AM PLASMA Reporting Lab: Johan ZUNIGA DEPT OF [address] [address] Performing Lab: Johan ZUNIGA [facility] [address] [facility] [address] COMPREHE ALKALINE 82 U/L 35 - 104 10/11 Specimen Type : PLASMA PORT NSIVE PHOSPHATAS /2021 Comment: See PATRICIA GRECOLOTTE METABOLI E Ordering Provi yogesh: WARNER ORTIZ [facility] C PANEL [ENZYMATIC Report Relea sed Date/Time: Aug 26, 2021 11:02 AM ACTIVITY/V Reporting La b: Johan ZUNIGA DEPT OF [facility] [place] [address] [facility] [address] SERUM OR Performing Lab : Johan ZUNIGA DEPT OF [facility] PLASMA [address] [facility] [address] COMPREHE ASPARTATE 57 U/L 13 - 36 10/11 H Specimen Type : PLASMA PORT NSIVE AMINOTRANS /2021 Comment: See PATRICIA GRECOLOTTE METABOLI FERASE Ordering Provi yogesh: WARNER ORTIZ [facility] C PANEL [ENZYMATIC Report Relea sed Date/Time: Aug 26, 2021 11:02 AM ACTIVITY/V Reporting La b: Johan ZUNIGA DEPT OF [facility] [place] [address] [facility] [address] SERUM OR Performing Lab : Johan ZUNIGA DEPT OF [facility] PLASMA [address] [facility] [address] COMPREHE ALANINE 74 U/L 7 - 49 10/11 H Specimen Type: PLASMA PORT NSIVE AMINOTRANS /2021 Comment: See PATRICIA GRECOLOTTE METABOLI FERASE Ordering Provi yogesh: WARNER ORTIZ [facility] C PANEL [ENZYMATIC Report Relea sed Date/Time: Aug 26, 2021 11:02 AM ACTIVITY/V Reporting La b: Johan ZUNIGA DEPT OF [facility] [place] [address] [facility] [address] SERUM OR Performing Lab : Johan ZUNIGA DEPT OF [facility] PLASMA [address] [facility] [address] COMPREHE BILIRUBIN. 0.7 0.2 - 1.3 10/11 Specimen T ype: PLASMA PORT NSIVE TOTAL mg/dL /2021 Comment: See EV AL ELBA METABOLI [MASS/VOLU Ordering Pr ovider: WARNER ORTIZ [facility] C PANEL ME] IN Report Released Date/Time: Aug 26, 2021 11:02 AM SERUM OR Reporting Lab: Johan ZUNIGA [facility]PT [facility] PLASMA [address] [place] [address] Performing Lab: Johan ZUNIGA [facility]PT [facility] [address] [place] [address] COMPREHE GLOMERULAR >=90 10/11 Specimen Typ e: PLASMA PORT NSIVE FILTRATION /2021 Comment: See PATRICIA ARREOLA METABOLI RATE/1.73 Ordering Pro vider: WARNER ORTIZ [facility] C PANEL SQ Report Released Date/Time: Aug 26, 2021 11:02 AM DADA Reporting La b: Johan ZUNIGA DEPT OF [facility] D [VOLUME [address] [place] [address] RATE/AREA] Performing L ab: Johan ZUNIGA DEPT OF [facility] IN SERUM, [address] [place] [address] PLASMA OR BLOOD BY CREATININE -BASED FORMULA (CKD-EPI) URINALYS COLOR OF Yellow 10/11 Specimen Type: URINE PORT IS, URINE /2021 No comment enter ed. ELBA REFLEX Ordering Provid er: WARNER ORTIZ [facility] C&S IF Report Released Date/Time: Aug 26, 2021 11:02 AM INDICATE Reporting Lab: Johan ZUNIGA [facility]PT OF [facility] D [address] [place] [address] Performing Lab: Johan ZUNIGA DEPT OF [facility] [address] [place] [address] URINALYS SPECIFIC 1.018 1.001 - 10/11 Specimen Type: URINE PORT IS, GRAVITY OF 1.035 /2021 No comment en tered. ELBA REFLEX URINE Ordering Provid er: WARNER ORTIZ [facility] C&S IF Report Released Date/Time: Aug 26, 2021 11:02 AM INDICATE Reporting Lab: Johan ZUNIGA DEPT [facility] D [address] [place] [address] Performing Lab: Johan ZUNIGA DEPT OF [facility] [address] [place] [address] URINALYS PH OF 6 5.0 - 7.0 10/11 Specimen Type : URINE PORT IS, URINE /2021 No comment enter ed. ELBA REFLEX Ordering Provid er: [facility] C&S IF Report Released Date/Time: Aug 26, 2021 11:02 AM INDICATE Reporting Lab: Johan ZUNIGA [facility] D [address] [facility] [address] Performing Lab: Johan ZUNIGA DEPT OF [facility] [address] [address] URINALYS ERYTHROCYT 1 /[HPF] 0 - 3 10/11 Specimen Ty pe: URINE PORT IS, ES /2021 No comment enter ed. ELBA REFLEX [#/VOLUME] Ordering Pro vider: WARNER ORTIZ [facility] C&S IF IN URINE Report Release d Date/Time: Aug 26, 2021 11:02 AM INDICATE SEDIMENT Reporting Lab : Johan ZUNIGA [facility] [place] [address] [place] [address] MICROSCOPY Performing L ab: Johan ZUNIGA DEPT OF [facility] [place]OWER [address] [place] [address] FIELD URINALYS APPEARANCE CLEAR 10/11 Specimen Typ e: URINE PORT IS, OF URINE /2021 No comment ente red. ELBA REFLEX Ordering Provid er: WARNER ORTIZ [facility] C&S IF Report Released Date/Time: Aug 26, 2021 11:02 AM INDICATE Reporting Lab: Johan ZUNIGA [facility]PT [facility] D [address] [place] [place] [address] Performing Lab: Johan ZUNIGA [facility] [address] [place] [address] URINALYS ERYTHROCYT Negative 10/11 Specimen Ty pe: URINE PORT IS, ES mg/dL /2021 No comment enter ed. ELBA REFLEX [PRESENCE] Ordering Pro vider: WARNER ORTIZ [facility] C&S IF IN URINE Report Release d Date/Time: Aug 26, 2021 11:02 AM INDICATE Reporting Lab: Johan ZUNIGA [facility] D [address] [place] [address] Performing Lab: Johan ZUNIGA [facility] [address] [place] [address] URINALYS LEUKOCYTE Negative 10/11 Specimen Typ e: URINE PORT IS, ESTERASE No comment oumar aclhoun. ELBA REFLEX [PRESENCE] Ordering Pro vider: WARNER ORTIZ [facility] C&S IF IN URINE Report Release d Date/Time: Aug 26, 2021 11:02 AM INDICATE BY TEST Reporting Lab: Johan ZUNIGA [facility] D STRIP [address] [place] [address] Performing Lab: Johan ZUNIGA [facility]PT [facility] [address] [facility] [address] URINALYS PROTEIN Negative 10/11 Specimen Type: URINE PORT IS, [MASS/VOLU mg/dL /2021 No comment en tered. ELBA REFLEX ME] IN Ordering Provid er: WARNER ORTIZ [facility] C&S IF URINE Report Released Date/Time: Aug 26, 2021 11:02 AM INDICATE Reporting Lab: Johan ZUNIGA [facility] D [address] [place] [address] Performing Lab: Johan ZUNIGA [facility] [address] [facility] [address] URINALYS GLUCOSE >=500mg/ 10/11 H Specimen Type: URINE PORT IS, [MASS/VOLU dL /2021 No comment en tered. ELBA REFLEX ME] IN Ordering Provid er: WARNER ORTIZ [facility] C&S IF URINE BY Report Release d Date/Time: Aug 26, 2021 11:02 AM INDICATE TEST STRIP Reporting L ab: Johan ZUNIGA [facility] D [address] [place] [address] Performing Lab: Johan ZUNIGA [facility] [address] [facility] [address] URINALYS KETONES Negative 10/11 Specimen Type: URINE PORT IS, [MASS/VOLU mg/dL /2021 No comment en tered. ELBA REFLEX ME] IN Ordering Provid er: WARNER ORTIZ [facility] C&S IF URINE BY Report Release d Date/Time: Aug 26, 2021 11:02 AM INDICATE TEST STRIP Reporting L ab: Johan ZUNIGA [facility] D [address] [place] [address] Performing Lab: Johan ZUNIGA DEPT OF [address] [address] URINALYS BILIRUBIN. Negative 10/11 Specimen Ty pe: URINE PORT IS, TOTAL mg/dL /2021 No comment enter ed. ELBA REFLEX [PRESENCE] Ordering Pro vider: WARNER ORTIZ [facility] C&S IF IN URINE Report Release d Date/Time: Aug 26, 2021 11:02 AM INDICATE BY TEST Reporting Lab: Johan ZUNIGA [facility] D STRIP [address] [place] [address] Performing Lab: Johan ZUNIGA DEPT OF [address] [address] URINALYS NITRITE Negative 10/11 Specimen Type: URINE PORT IS, [PRESENCE] mg/dL No comment en tered. ELBA REFLEX IN URINE Ordering Provi yogesh: WARNER ORTI[facility] C&S IF BY TEST Report Released Date/Time: Aug 26, 2021 11:02 AM INDICATE STRIP Reporting Lab: Johan ZUNIGA [facility] D [address] [place] [address] Performing Lab: Johan ZUNIGA DEPT OF [address] [address] URINALYS UROBILINOG Negative - 1.0 10/11 Specimen Ty pe: URINE PORT IS, EN mg/dL /2021 No comment enter ed. ELBA REFLEX [MASS/VOLU Ordering Pro vider: [facility]ER [facility] C&S IF ME] IN Report Released Date/Time: Aug 26, 2021 11:02 AM INDICATE URINE Reporting Lab: Johan ZUNIGA [facility] D [address] [place] [address] Performing Lab: Johan ZUNIGA DEPT OF [address] [address] PROSTATI PROSTATE 0.4 0.0 - 4.0 0325 Specimen Typ e: SERUM PORT C SPECIFIC ng/mL /2021 Comment: FREE PSA NOT INDICATED IF TOTAL PSA IS <3.75 OR >10.5 ng/mL ELBA SPECIFIC AG Ordering Provi yogesh: WARNER ORTIZ [facility] ANTIGEN [MASS/VOLU Report Relea sed Date/Time: Aug 26, 2021 11:02 AM ME] IN Reporting Lab: Johan ZUNIGA [facility] [place] [address] [facility] [address] PLASMA Performing Lab: Johan ZUNIGA [facility] [address] [facility] [address] TSH THYROTROPI 1.54 0.46 - 10/11 Specimen Type : SERUM PORT SCREEN N u[IU]/mL 3.59 /2021 Comment: FREE PSA NOT INDICATED IF TOTAL PSA IS <3.75 OR >10.5 ng/mL ELBA PANEL [UNITS/VOL Ordering Pro vider: WARNER ORTIZ [facility] UME] IN Report Released Date/Time: Aug 26, 2021 11:02 AM SERUM OR Reporting Lab: Johan ZUNIGA [facility] PLASMA [address] [facility] [address] Performing Lab: Johan ZUNIGA DEPT OF [address] [address] LIPID CHOLESTERO 154 10/11 Specimen Type : PLASMA PORT PANEL A, L mg/dL /2021 Comment: See E MOSES ELBA non-fast [MASS/VOLU Ordering Pr ovider: WARNER ORTIZ [facility] ing ME] IN Report Released Date/Time: Aug 26, 2021 11:02 AM SERUM OR Reporting Lab: Johan ZUNIGA [facility] PLASMA [address] [facility] [address] Performing Lab: Johan ZUNIGA [facility] [address] [facility] [address] LIPID CHOLESTERO 39 mg/dL 10/11 Specimen Typ e: PLASMA PORT PANEL A, L IN HDL /2021 Comment: See EVAL ELBA non-fast [MASS/VOLU Ordering Pr ovider: WARNER ORTIZ [facility] ing ME] IN Report Released Date/Time: Aug 26, 2021 11:02 AM SERUM OR Reporting Lab: Johan ZUNIGA [facility] PLASMA [address] [place] [address] Performing Lab: Johan ZUNIGA DEPT OF [address] [address] LIPID CHOLESTERO 94 mg/dL 10/11 Specimen Typ e: PLASMA PORT PANEL A, L IN LDL /2021 Comment: See PATRICIA ARREOLA non-fast [MASS/VOLU Ordering Pr ovider: WARNER ORTIZ [facility] ing ME] IN Report Released Date/Time: Aug 26, 2021 11:02 AM SERUM OR Reporting Lab: Johan ZUNIGA [facility] PLASMA BY [address] [place] [address] DIRECT Performing Lab: Johan ZUNIGA [facility] ASSAY [address] [place] [address] LIPID CHOLESTERO 3.9 10/11 Specimen Type : PLASMA PORT PANEL A, L.TOTAL/CH /2021 Comment: Se sveta ARREOLA non-fast OLESTEROL Ordering Pro vider: WARNER ORTIZ [facility] ing IN HDL Report Released Date/Time: Aug 26, 2021 11:02 AM [MASS Reporting Lab: Johan ZUNIGA [facility] RATIO] IN [address] [place] [address] SERUM OR Performing Lab : Johan ZUNIGA [facility] PLASMA [address] [place] [address] HGB A1C HEMOGLOBIN 7.3 4.2 - 6.2 10/11 H Specimen Ty pe: BLOOD PORT A1C/HEMOGL /2021 No comment en sonny. ELBA OBIN.TOTAL Ordering Pro vider: WARNER ORTIZ [facility] IN BLOOD Report Release d Date/Time: Aug 26, 2021 11:02 AM Reporting Lab: Johan ZUNIGA DEPT OF [address] [address] Performing Lab: Johan ZUNIGA DEPT OF [address] [address] VITAMIN COBALAMIN 442 190 - 1200 10/11 Specimen Ty pe: SERUM PORT B12 (VITAMIN pg/mL /2021 No comment mirelasveta ELBA B12) Ordering Provid er: [facility] [MASS/VOLU Report Relea sed Date/Time: Aug 26, 2021 11:02 AM ME] IN Reporting Lab: Johan ZUNIGA [facility] [place] [address] [facility] [address] [facility] [address] PLASMA Performing Lab: Johan ZUNIGA [facility] [address] [facility] [address] Vital Signs Combined list of inpatient and outpatient Vital Signs from Department of [facility], ranging from 12 months to all on record, depending upon the facility. Vital Sign Value Date Comments Source SYSTOLIC BLOOD PRESSURE 112 10/15/2021 09:01:17 [facility] DIASTOLIC BLOOD PRESSURE 68 10/15/2021 09:01:17 Johan ZUNIGA DEPT [facility] PULSE OXIMETRY 96% 10/15/2021 09:01:17 Johan ZUNIGA DEPT [facility] WEIGHT 237.7 10/15/2021 09:01:17 Johan [facility]IGA [facility] BMI 34kg/m2 10/15/2021 09:01:17 Johan [facility]IGA [facility] PAIN 0 10/15/2021 09:01:17 Johan [facility]UNIGA [facility] HEIGHT 70.5 10/15/2021 09:01:17 Johan [facility]IGA [facility] TEMPERATURE 97.6 10/15/2021 09:01:17 Johan ZUNIGA [facility] PULSE 79 10/15/2021 09:01:17 Johan ZUNIGA [facility] RESPIRATION 16 10/15/2021 09:01:17 Johan ZUNIGA [facility] Encounters Combined list of: 1) Encounters from Department of Veterans Affairs facilities going back up to the last 18 months, not all [place] inpatient encounters are included; 2) Encounters from the Department of Defense facilities going back up to 280 months. Location Location Encounter Encounter Reason Attending ADM DC Stat us Disposition Source Details Type Number For Provider Date Date Visit Outpatient [id number] 02/17 C.W. Encounter [id number] EDGAR ZUNIGA [facility] Outpatient [id number] 03/06 WHIT E Encounter [id number] [facility] Outpatient [id number] 05/20 C.W. Encounter [id number] EDGAR ZUNIGA [facility] Outpatient [id number] 06/07 WHIT E Encounter [id number] /2021 [facility] TARGETED [id number] BENNETTELIDA 08/19 L EE CASE [id number] /2021 [facility] [place] [id number] 08/21 WHIT E Encounter [id number] [facility] Outpatient [id number] 08/23 C.W. Encounter [id number] EDGAR ZUNIGA [facility] CASE [id number] FRANCINE SUMMERS 09/10 [facility] [id number] [facility] [place] [id number] 10/15 C.W. Encounter [id number] [facility] OFFICE O/P [id number] Diagnos CALEND[place], 10/15 [facility] [id number] is: WARNER ANGUS LOT 45-59 MIN 64 ICD-10- TE [place] [facility] R10.10 Upper abdomin al pain, unspeci fied
with Provide r Comment s: Upper Abdomin al Pain, unspeci fied Outpatient [id number] 10/23 WHIT E Encounter [id number] [facility] Outpatient [id number] [place], 11/01 C.W. Encounter [id number] WARNER KELTON ZUNIGA [facility] Social History Combined list of available smoking, tobacco, and other social history from Department of Defense andVeterans Affairs facilities. Social History Response Date Comment Source Type Tobacco smoking VA-TOBACCO FORMER 10/15/2021 ANASTACIA MOSER [place] status NHIS USER CLINIC History of VA-TOBACCO QUIT 10/15/2021 [place] [facility] [facility] tobacco use 15 YRS OR MORE CLINIC History of VA-TOBACCO FORMER 03/14/2020 [facility] tobacco use USER History of VA-TOBACCO QUIT 11/10/2017 [facility] tobacco use 15 YRS OR MORE History of QUIT TOBACCO USE 10/27/2017 [facility] tobacco use > 7 YEARS AGO History of QUIT TOBACCO USE 10/14/2016 quit about [facility] use > 7 YEARS AGO ago History of QUIT TOBACCO USE 10/16/[address] [facility] tobacco use > 7 YEARS AGO years ago History of HISTORY OF 10/14/2004 12 yrs ago [facility] tobacco use SMOKING History of QUIT TOBACCO USE 01/26/2003 [facility] tobacco use > [address] 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 Plan of Care List of future care activities from Department of Veterans Affairs facilities. Additional future care activities may be listed in the Assessment and Plan section. Date/Time Care Activity Care Activity Detail Facility 04/11/2022 AMBULATORY - NONE AMBULATORY - NONE [facility] Advance Directives List of completed, amended, or rescinded Advance Directives on record at Department of Veterans Affairs facilities. An actual copy of the Directive is not included. Date Advance Directive Provider Source 11/23/2017 AD[address] [facility]
--- OUTSIDE RECORDS SUMMARY | 2022-02-21 01:13 | XMS_ITS | Encounter Summary ---
:1955 Author Organization [facility] Address [address] [place] [address] Care Team Providers Name Role Phone Joaquín Carpenter MD Primary Care Provider Reason for Visit Reason Comments Coronary Artery Disease Encounter Details Date Type Department Care Team Description 04/13/2012 Office Visit [facility] Broderick Gallowaya ry artery Cardiology - Jenelle Ansari MD disease (Primary Dx) [address] [place], [place] [address] [facility] [id number] [place] [address] [place] [address] Social History Tobacco Use Types Packs/Day [...] Sign Reading Time Taken Comments Blood Pressure 140/64 04/13/2012 1113 EDT Pulse 74 04/13/2012 1113 EDT Temperature - - Respiratory Rate - - Oxygen Saturation - - Inhaled Oxygen Concentration - - Weight 110.7 kg (244 lb) 04/13/2012 1113 EDT Height 177.8 cm (5' 10) 04/13/2012 1113 EDT Body Mass Index 35.01 04/13/2012 1113 EDT documented in this encounter Functional Status Cognitive Status Response Date of Assessment Because of a physical, mental, or emotional condition, do Ye s 09/09/2009 you have serious difficulty concentrating, remembering, or making decisions? (5 years old or older) documented as of this encounter Progress Notes Broderick Galloway MD - 08/31/2012 1204 EST RE: NAME: RAUL BATISTA : 1955 PROGRESS/FOLLOWUP NOTE - 04/13/2012 [place] [address] Cope: I am writing in regards to Raul Batista. Briefly, he is a 56-year-old patient of [facility] with known coronary disease, status post multiple percutaneous interventions. The last of these occurred in 2009. Since that time, the patient has done quite well without recurrent anginal symptoms. He has maintained an active lifestyle and done a very good job at risk factor modification. As above, his last cath was in 2009. He subsequently underwent a stress test following his intervention in the fall and this was completely normal. At present, I think Raul is an acceptable surgical candidate. He can discontinue his Plavix. I would like to maintain aspirin therapy perioperatively. If further information is required, please do not hesitate to contact me. Sincerely, Electronically Signed by Broderick Galloway MD 11/03/2012 12:46 Broderick Galloway MD - Broderick Galloway MD - Job ID: SM Doc ID: [id number] Ext Doc ID: [id number] cc: Main Cope MD True Peck MD - 04/13/2012 1153 EDT Subjective: Patient is a 56 y.o. male who presents for CAD, s/p multiple PCI's and last PCI in 04/2010. He has been doing well. No exertional or anginal symptoms to report today. No chest pain, GUTIERREZ, palpitations or dizziness. No heart failure symptoms. He recently had his right 5th toe amputated due to long standing ulcer. That seems to be healing well and his already wearing shoes and up walking without much issues. Not sure if the ulcer was due to diabetic ulcer vs. Chronic trauma related issue. He is up walking now, and having very little tenderness. He recently was started on Insulin as his most recent HbA1C was 9.8 at [facility]. With the Lantus, his BS is so much better and he lost 10 lb. He is off of his statin due to elevated LFT's and his next FLP is due in 05/2012 at the [facility] provider. Review of Systems A ten point ROS was performed. Pertinent positives are listed above, all others are negative. Objective: BP 140/64 Pulse 74 Ht 177.8 cm (70) Wt 110.678 kg (244 lb) BMI 35.01 kg/m2 Body mass index is 35.01 kg/(m^2). Physical Exam: NAD, appears well. Neck: No JVD Lungs: CTA-b Heart: RRR, No MRG Ext: No REJI Skin: No jaundice Neuro: grossly intact. Assessment: Raul Batista is a 56 y.o. year old male patient with stable coronary artery disease, s/p multiple PCI's, CCS Class 0-1 angina at baseline. Clinically doing well. Plan: - Continue current CV regimen. - Check FLP at the [facility] in May, 2012. Depending on his LDL- he could get started on Crestor. Previously he was on Zocor 80 mg and had some transaminase elevation which was stopped few mo ago. - Encouraged further exercise and weight loss. documented in this encounter Plan of Treatment Upcoming Encounters Date Type Specialty Care Team Description 09/29/2022 Office Visit Gastroenterology and Shaq Phan, Hepatology [address] [place] [address], [facility] [address] [place] [address] (Wo rk) documented as of this encounter Visit Diagnoses Diagnosis Coronary artery disease - Primary Coronary atherosclerosis of unspecified type of vessel, [place] or graft documented in this encounter Discontinued Medications Medication Sig Discontinue Reason Start Date End Date SIMVASTATIN (ZOCOR Take 40 mg by Discontinued by another 04/13/2012 ORAL) mouth at bedtime. clinician glimepiride (AMARYL) 4 Take 4 mg by Discontinued by another 04/13/2012 mg tablet mouth daily. clinician citalopram (CELEXA) 40 Take 40 mg by Patient Stopped Taking 04/13/2012 mg tablet mouth daily. documented as of this encounter Historical Medications This list may reflect changes made after this encounter. Medication Sig Dispensed Refills Start Date End Date insulin glargine (LANTUS) Inject 30 Units into 0 100 unit/mL injection the skin 2 times daily. added in this encounter Care Teams Pocketbook Maker Relationship Specialty Start Date End Date Joaquín Carpenter MD PCP - General 09/04/09 10/26/12 [address] [place] [address] documented as of this encounter
--- OUTSIDE RECORDS SUMMARY | 2022-02-21 01:13 | XMS_ITS | Encounter Summary ---
:1955 Author Organization Department of [facility] rs Address [address] [place] [address] Support Name Relationship Address Phone ANA JOYNER Unavailable [address] [place] [address] LESTERMARY Unavailable [address] [place] [address] ANDREINA SULTANA Unavailable [address] [place] [address] WANDA BATISTA Unavailable [address] [place] [address] Insurance Providers: All historical and current Section [...] Name to Policy Number Vu CBA [facility] Jul 20 [id number] [phone] DANIEL BATISTA PATIENT DEDUCTIBL SADIE 2009 [address] [facility] HDHP PLAN EXPRESS PRESCRIPT Jul 20, RXBWEID [id number] [phone] SRINIVAS BATISTA PATIENT SCRIPTS ION [id number] 557 RGE ([id number]) RESTAT PRESCRIPT CBA November 17, 2820 [id number] [phone] Luis BATISTA EO PATIENT ION BLUE [id number] 2 RGE Selected Encounter This section includes the information on record at [place] for the Encounter. Date/Time Encounter Type Encounter Reason Provider Source Description Nov 01, 2021 10:17 Outpatient PRIMARY WARNER ORTIZ AM Encounter CARE/MEDICINE M IHE Encounter Template Text not used by [facility] Plan of Treatment: Future Appointments (+ 6 months) and Future Tests (+/- 45 days) The Plan of Treatment section includes future care activities for the patient from all [place] treatmentfacilities. This section includes future appointments and future orders which are active, pending orscheduled.Future Appointments This section includes appointments that were scheduled to occur 6 months from the date of the Encounter, up to a maximum of 20 appointments. The data comes from all [place] treatment facilities. Appointment Date/Time Appointment Type Appointment Facili ty Name Apr 11, 2022 10:15 AM AMBULATORY - NONE [facility] Apr 14, 2022 08:30 AM AMBULATORY - NONE Johan RAMOS PT OF [facility] Lab Results: +/- 30 days of the encounter This section includes the Chemistry and Hematology Lab Results on record with [place] for the patient. Radiology Reports and Pathology Reports are provided separately, in subsequent sections.Lab Results This section contains the Chemistry/Hematology Results that were resulted 30 days before or 30 daysafter the date of the Encounter. Date/Time Source Result Type Result - Unit Interpretation Reference Range Comment Oct 11, 2021 08:07 [facility] CBC (AUTO DIFF) Specimen T ype: BLOOD AM CLINIC No comment enter ed. Ordering Provid er: WARNER ORTIZ Report Released Date/Time: Aug 26, 2021 11:02 AM Reporting Lab: [facility] [address] [address] Performing Lab: [facility] [address] [address] WBC 7.2 4.00-10.60 RBC 5.17 4.23-5.75 HGB [...] 0.0-0.7 CBC COMPLETE DONE Oct 11, 2021 [facility] COMPREHENSIVE METABOLIC Speci men Type: PLASMA 08:07 AM CLINIC PANEL Comment: See EV AL Ordering Provid er: WARNER ORTIZ Report Released Date/Time: Aug 26, 2021 11:02 AM Reporting Lab: [facility] [address] [address] Performing Lab: Johan [facility] [address] [address] SODIUM 138 136-144 POTASSIUM 4.3 3.6-5.1 CHLORIDE 101 98-107 CARBON DIOXIDE 28 22-32 ANION GAP 9 4-13 GLUCOSE 155 H 72-105 UREA NITROGEN 11 7-25 CREATININE 0.76 0.7-1.3 CALCIUM 9.9 8.6-10.4 TOTAL PROTEIN 7.5 6.0-8.2 ALBUMIN 4.3 3.5-5.0 ALKALINE PHOSPHATASE 82 35-104 AST 57 H 13-36 ALT 74 H 7-49 BILIRUBIN,TOTAL 0.7 0.2-1.3 eGFR (CKD-EPI 2020) >=90 See EVAL Oct 11, 2021 [facility] URINALYSIS, REFLEX C&S Specim en Type: URINE 08:07 AM CLINIC IF INDICATED No comment enter ed. Ordering Provid er: WARNER ORTIZ Report Released Date/Time: Aug 26, 2021 11:02 AM Reporting Lab: Johan [facility] [address] [address] Performing Lab: Johan [facility] [address] [address] URINE COLOR Yellow Yellow SPECIFIC GRAVITY 1.018 1.001-1.035 URINE PH 6 5.0-7.0 URINE RBC/HPF 1 0-3 CLARITY CLEAR CLEAR URINE BLOOD Negative Negative URINE LEUKOCYTE ESTERASE Negative Negat [facility] URINE PROTEIN Negative Negative URINE GLUCOSE >=500 H Negative URINE KETONES Negative Negative URINE BILIRUBIN Negative Negative URINE NITRITES Negative Negative UROBILINOGEN (mg) Negative <=1.0 Oct 11, 2021 [facility] PROSTATIC SPECIFIC Specimen T ype: SERUM 08:07 AM CLINIC ANTIGEN Comment: FREE P SA NOT INDICATED IF TOTAL PSA IS <3.75 OR >10.5 ng/mL Ordering Provid er: WARNER ORTIZ Report Released Date/Time: Aug 26, 2021 11:02 AM Reporting Lab: [facility] [address] [address] Performing Lab: Johan [facility] [address] [address] PROSTATIC SPECIFIC ANTIGEN 0.4 0.0 -4.0 Oct 11, 2021 08:07 [facility] TSH SCREEN PANEL Specimen Type: SERUM AM CLINIC Comment: FREE P SA NOT INDICATED IF TOTAL PSA IS <3.75 OR >10.5 ng/mL Ordering Provid er: WARNER ORTIZ Report Released Date/Time: Aug 26, 2021 11:02 AM Reporting Lab: Johan [facility] [address] [address] Performing Lab: Johan [facility] [address] [address] TSH SCREEN 1.54 0.46-3.59 Oct 11, 2021 [facility] LIPID PANEL A, Specimen Type : PLASMA 08:07 AM CLINIC non-fasting Comment: See EV AL Ordering Provid er: WARNER ORTIZ Report Released Date/Time: Aug 26, 2021 11:02 AM Reporting Lab: Johan [facility] [address] [address] Performing Lab: Johan [facility] [address] [address] CHOLESTEROL 154 HDL CHOLESTEROL 39 LDL CHOLESTEROL 94 TC/HDL CHOLESTEROL RATIO 3.9 Oct 11, 2021 08:07 AM [facility] HGB A1C Specimen Type: BLOOD No comment enter ed. Ordering Provid er: WARNER ORTIZ Report Released Date/Time: Aug 26, 2021 11:02 AM Reporting Lab: Johan [facility] [address] [address] Performing Lab: Johan [facility] [address] [address] HGB A1C 7.3 H 4.2-6.2 Oct 11, 2021 08:07 [facility] VITAMIN B12 Specimen T ype: SERUM CLINIC No comment enter ed. Ordering Provid er: WARNER ORTIZ Report Released Date/Time: Aug 26, 2021 11:02 AM Reporting Lab: Joh[facility] [address] [address] Performing Lab: Johan [facility] [address] [address] VITAMIN B12 450 129-8999 Advance Directives: All historical and current Section Date Range: From patient's date of to the date document was created. This section includes ALL of a patient's completed or amended [place] Advance and Rescinded Directives. The entries below indicate that a directive exists for the patient, but an actual copy is not included with this document. The data comes from all [place] facilities. Date Advance Directives Provider Source November 23, 2017 ADVANCE DIRECTIVE JOI DEVRIES ONEAL T [facility] Radiology Reports: +/- 30 days of the [...] the Encounter. The data comes from all [place] treatment facilities. Date/Time Radiology Report Provider Source Nov 01, 2021 07:12 GASTRIC EMPTYING SCAN: PEDRO WOLFF [facility] CLAUDIA CLIFTON [id number] -1955 M CLINIC Exm Date: NOV 01, 2021@07:12 Req Phys: WARNER ORTIZ Pat Loc: [facility] PACT 3 (Req'g Loc) Img Loc: [facility] NUC MED Service: Unknown (Case [id number] COMPLETE)GASTRIC EMPTYING STUDY (NM Detailed) CPT:49626 Reason for Study: gastroparesis Radiopharmaceutical: 99MTC SULFUR COLLOID, 1 mC i Adm'd on NOV 01, 2021@07:55 by AUTUMN ARNETT (Case [id number] COMPLE TE)DIAG RADIOPHARM TC SULFUR COLLOID(NM Detailed) CPT:A9541 Radiopharmaceutical: 99MTC SULFUR COLLOID Adm'd on NOV 01, 2021@07:16 by ANICETO PÉREZ JR Clinical History: Report Status: Verified Date Reported: NOV 01, 2021 Date Verified: NOV 01, 2021 Product Craftsman E-Sig:/ES/PEDRO WOLFF MD Report: NUCLEAR MEDICINE GASTRIC EMPTYING CLINICAL INDICATION: 65-year-old male with conc nicolas for gastroparesis. PRIOR STUDY: None. CORRELATIVE: None. PROCEDURE: angiography technologist romina ed the patient name, date [...] Interpreting Staff: PEDRO WOLFF MD, NUCLEAR MEDICINE ([facility] er) /[facility] Encounter Notes: All associated encounter notes This section contains the clinical notes associated to the Encounter. Date/Time Encounter Note(s) Provider Source Nov 01, 2021 10:17 LETTERS: WARNER ORTIZ [facility] TITLE: DIAGNOSTIC TEST RESULTS FORM ERNA Banda () CLINIC STANDARD TITLE: LETTERS DATE OF NOTE: NOV 01, 2021@10:17 ENTRY DATE: NOV 01, 2021@10:17:08 AUTHOR: WARNER ORTIZ EXP COSIGNER: URGENCY: STATUS: COMPLETED \\\ ///\\\ [facility] \\\ /// \\\ [address] \\\/// \\\ [place] [address] \/// \\\\\\ NOV 01, 2021 CLAUDIA BATISTA [address] [facility] [address] [place], [place] [address] Dear CLAUDIA BATISTA I have reviewed your imaging results. The results were unremarkable and no special fo llow-up is required at this time. Impression: 1. Normal gastric emptying. 2. No scintigraphic evidence of gastroesophagea l reflux. Sincerely, WARNER ORTIZ MD PRIMARY CARE
--- OUTSIDE RECORDS SUMMARY | 2022-02-21 01:13 | XMS_ITS | Encounter Summary ---
:1955 Author Organization Department of [facility] rs Address [address] [place] [address] Support Name Relationship Address Phone ANA JOYNER Unavailable [address] [place] [address] LESTERMARY Unavailable [address] [place] [address] ANDREINA SULTANA Unavailable [address] [place] [address] WANDA BATISTA Unavailable [address] [place] [address] Insurance Providers: All historical and current Section [...] Telephone Name to Policy Number Vu CBA [facility] Jul 20 [id number] [phone] DANIEL BATISTA O PATIENT DEDUCTIBL SADIE 2009 [address] HEALTH HDHP PLAN EXPRESS PRESCRIPT Jul 20, RXBWEID [id number] [phone] SRINIVAS BATISTA PATIENT SCRIPTS ION [id number] [id number] RGE ([id number]) RESTAT PRESCRIPT CBA November 17, 2820 [id number] [phone] Luis BATISTA EO PATIENT ION BLUE [id number] 2 RGE Selected Encounter This section includes the information on record at [place] for the Encounter. Date/Time Encounter Type Encounter Description Reason Provider Source Aug 23, 2021 01:11 Outpatient Encounter PRIMARY CARE/MEDICINE PM IHE Encounter Template Text not used by [facility] Plan of Treatment: Future Appointments (+ 6 months) and Future Tests (+/- 45 days) The Plan of Treatment section includes future care activities for the patient from all [place] treatmentfacilities. This section includes future appointments and future orders which are active, pending orscheduled.Future Appointments This section includes appointments that were scheduled to occur 6 months from the date of the Encounter, up to a maximum of 20 appointments. The data comes from all [place] treatment facilities. Appointment Date/Time Appointment Type Appointment Facili ty Name Oct 11, 2021 08:15 AM AMBULATORY - NONE [facility] Oct 15, 2021 09:00 AM AMBULATORY - NONE Johan RAMOS [facility] Nov 01, 2021 08:00 AM AMBULATORY - NONE [facility] Advance Directives: All historical and current Section Date Range: From patient's date of to the date document was created. This section includes ALL of a patient's completed or amended [facility] Advance and Rescinded Directives. The entries below indicate that a directive exists for the patient, but an actual copy is not included with this document. The data comes from all ID facilities. Date Advance Directives Provider Source November 23, 2017 ADVANCE DIRECTIVE KAYCEJOICLAIRE MONTOYA ONEAL T [facility] Encounter Notes: All associated encounter notes This section contains the clinical notes associated to the Encounter. Date/Time Encounter Note(s) Provider Source Aug 23, 2021 01:11 PM ADMINISTRATIVE NOTE: JACQUELINE PARKS [facility] LOCAL TITLE: HAS MITER CUTTER APPT TRACKING NOTE CLINIC STANDARD TITLE: ADMINISTRATIVE NOTE DATE OF NOTE: AUG 23, 2021@13:11 ENTRY DATE: AUG 23, 2021@13:11:32 AUTHOR: JACQUELINE PARKS EXP COSIGNER: URGENCY: STATUS: COMPLETED HAS MITER CUTTER APPT TRACKING NOTE Has ADDENDA * Head Men'S Tennis Coach Appointment Tracking Note [facility] TEACHER LAB ORDERS PCP APPT SET 10/15/21 /jayce/ JACQUELINE PARKS JAVA LEAD DEVELOPER Signed: 08/23/2021 13:12 Receipt Acknowledged By: 08/26/2021 11:00 /jayce/ SHAGGY LEE RN 08/26/2021 ADDENDUM STATUS: COMPLETED Please make lab appt, orders are in /es/ SHAGGY LEE RN Signed: 08/26/2021 11:01 Receipt Acknowledged By: * AWAITING SIGNATURE * JACQUELINE PARKS * AWAITING SIGNATURE * FILIBERTO JAFFE
--- OUTSIDE RECORDS SUMMARY | 2022-02-21 01:13 | XMS_ITS | Encounter Summary ---
:1955 Author Organization [facility] Address [address] [place] [address] Care Team Providers Name Role Phone Joaquín Carpenter MD Primary Care Provider Reason for Visit Reason Comments Follow-up 6 month FUR Encounter Details Date Type Department Care Team Description 04/09/2011 Office Visit [facility] Broderick Galloway atherosclerosis Cardiology - Jenelle Ansari MD of [place] coronary artery [address] (Primary Dx) [place], [place] [address] [place] [address] [place] [address] Social History Tobacco Use Types [...] Sign Reading Time Taken Comments Blood Pressure 122/56 04/09/2011 1449 EDT Pulse 66 04/09/2011 1449 EDT Temperature - - Respiratory Rate - - Oxygen Saturation - - Inhaled Oxygen Concentration - - Weight 112.9 kg (249 lb) 04/09/2011 1449 EDT Height - - Body Mass Index 36.77 10/08/2010 1453 EDT documented in this encounter Functional Status Cognitive Status Response Date of Assessment Because of a physical, mental, or emotional condition, do Ye s 09/09/2009 you have serious difficulty concentrating, remembering, or making decisions? (5 years old or older) documented as of this encounter Progress Notes Broderick Galloway MD - 04/09/2011 1459 EDT Subjective: Patient is a 55 y.o. male who presents for follow-up of cad. Patient reports doing well. He denies chest pain on exertion and dyspnea on exertion. He describes his symptoms as not changed. He has been compliant with his medications. Medications side effects include none Past Medical History Diagnosis Date ??? CO (myocardial infarction) 1992, 2003 ??? CAD (coronary [...] [401.9AF] 09/07/2009 ??? Diabetes mellitus [250.00A] 09/07/2009 Current outpatient prescriptions Medication Sig Dispense Refill ??? glimepiride (AMARYL) 2 mg tablet Take 2 mg by mouth every morning. ??? aspirin chewable 81 mg tablet Take 81 mg by mouth daily. ??? citalopram (CELEXA) 20 mg tablet Take 40 mg by mouth daily. Indications: DEPRESSION ??? amlodipine (NORVASC) 10 mg tablet Take 1 Tab by mouth daily. 30 Tab 11 ??? clopidogrel (PLAVIX) 75 mg tablet Take 1 Tab by mouth daily. Plavix 75 mg daily uninterrupted for a minimum of one year Do not stop or interrupt this medication withour discussing with lodge officer Start this medication in one month. First [...] (ZOCOR ORAL) Take 80 mg by mouth at bedtime. ??? AMITRIPTYLINE HCL (AMITRIPTYLINE ORAL) Take 20 mg by mouth at bedtime. Review of Systems Pertinent items are noted in Subjective/HPI Objective: BP 122/56 Pulse 66 Wt 112.946 kg (249 lb) There is no height on file [...] 110 09/08/2009 Assessment: Raul Trujillo is a 55 y.o. year old male who presents with cad stable at present Plan: Cont present rx documented in this encounter Plan of Treatment Upcoming Encounters Date Type Specialty Care Team Description 09/29/2022 Office Visit Gastroenterology and Shaq Phan, Hepatology [address] [facility], [address] [place] [address] (Wo rk) documented as of this encounter Visit Diagnoses Diagnosis Coronary atherosclerosis of [place] coron millie artery - Primary documented in this encounter Historical Medications This list may reflect changes made after this encounter. Medication Sig Dispensed Refills Start Date End Date glimepiride (AMARYL) 2 mg Take 2 mg by mouth 0 10/07/2011 tablet every morning. added in this encounter Care Teams Auto Body Detailer Relationship Specialty Start Date End Date Joaquín Carpenter MD PCP - General 09/04/09 10/26/12 [address] [place] [address] documented as of this encounter
--- OUTSIDE RECORDS SUMMARY | 2022-02-21 01:13 | XMS_ITS | Encounter Summary ---
:1955 Author Organization [facility] Address [address] [place] [address] Care Team Providers Name Role Phone Joaquín Carpenter MD Primary Care Provider Reason for Visit Reason Onset Date Comments Other 06/15/2012 Question if Labs [facility] e [facility]? ( Lipids ) Returning Call 06/15/2012 Encounter Details Date Type Department Care Team Description 06/15/2012 Telephone [facility] Mary Tanner Other (Question if Labs Cardiology - Jenelle RN were checked @ [facility]? ( [address] Jenelle Teixeira Lipids )); Returning So [place], [place] [address] Call [phone] Social History Tobacco Use Types Packs/Day Years [...] Telephone Encounter - Mary Tanner RN - 08/02/2012 0842 EST Left message asking patient to call re: labs and med change through PCP. We've not received a copy of labs or information re: med change. elephone Encounter - Amy Roy RN - 07/09/2012 1408 EST Had some done at the [facility] and will ask their office to send some to our practice. PCP is changing his cholesterol medication. Let him know I would have Mary RN touch base with him after the New year, he is fine with plan. No learning barriers identified. elephone Encounter - Nadine Wing - 07/09/2012 1313 EST Pt is returning call from 06/15. documented in this encounter Plan of Treatment Upcoming Encounters Date Type Specialty Care Team Description 09/29/2022 Office Visit Gastroenterology and Shaq Phan Hepatology [address] [facility], [address] [place] [address] (Wo rk) documented as of this encounter Visit Diagnoses Not on filedocumented in this encounter Care Teams Construction Code Administrator Relationship Specialty Start Date End Date Joaquín Carpenter MD PCP - General 09/04/09 10/26/12 [address] [place] [address] documented as of this encounter
--- OUTSIDE RECORDS SUMMARY | 2022-02-21 01:13 | XMS_ITS | Encounter Summary ---
:1955 Author Organization [facility] Address [address] [place] [address] Care Team Providers Name Role Phone Joaquín Carpenter MD Primary Care Provider Reason for Visit Reason Comments Coronary Artery Disease Encounter Details Date Type Department Care Team Description 04/09/2010 Office Visit [facility] Rylie Lozada atherosclerosis Cardiology - Jenelle Ansari MD of [place] coronary artery [address] Cavazos (Primary Dx) [place], [place] [address] [place] [address] [place] [phone] Social History Tobacco Use Types Packs/Day Years [...] Sign Reading Time Taken Comments Blood Pressure 148/72 04/09/2010 1352 EDT Pulse 72 04/09/2010 1352 EDT Temperature - - Respiratory Rate - - Oxygen Saturation - - Inhaled Oxygen Concentration - - Weight 112 kg (247 lb) 04/09/2010 1350 EDT Height - - Body Mass Index 36.48 09/09/2009 1816 EST documented in this encounter Functional Status Cognitive Status Response Date of Assessment Because of a physical, mental, or emotional condition, do Ye s 09/09/2009 you have serious difficulty concentrating, remembering, or making decisions? (5 years old or older) documented as of this encounter Ordered Prescriptions Prescription Sig Dispensed Refills Start Date End Date albuterol (PROVENTIL HFA, Inhale 2 Puffs as 1 Inhaler 6 10/08/2010 VENTOLIN HFA) 90 directed every 4 mcg/Actuation inhaler hours. albuterol (PROVENTIL HFA, Inhale 2 Puffs as 1 Inhaler 6 10/08/2010 VENTOLIN HFA) 90 directed every 4 mcg/Actuation inhaler hours. documented in this encounter Progress Notes Rylie Lozada MD - 04/09/2010 1402 EDT Subjective: Patient is a 54 y.o. male who presents for follow-up of cad. Patient reports . He denies chest pain.He describes his symptoms as not changed.Intermittent dyspnea He has been compliant with his medications. Medications side effects include none Past Medical History Diagnosis Date ??? [place] (myocardial infarction) 1992, 2003 ??? CAD (coronary [...] [401.9AF] 09/07/2009 ??? Diabetes mellitus [250.00A] 09/07/2009 Past Surgical History Procedure Date ??? Umbilical hernia repair Jun, 2009 Current outpatient prescriptions Medication Sig Dispense Refill ??? citalopram (CELEXA) 20 mg tablet Take 40 mg by mouth daily. Indications: DEPRESSION ??? amlodipine (NORVASC) 10 mg tablet Take 1 Tab by mouth daily. 30 Tab 11 ??? clopidogrel (PLAVIX) 75 mg tablet Take 1 Tab by mouth daily. Plavix 75 mg daily uninterrupted for a minimum of one year Do not stop or interrupt this medication withour discussing with maxillofacial surgeon Start this medication in one month. First [...] 2 DIABETES MELLITUS 30 Tab 0 ??? Prasugrel (EFFIENT) 10 mg Tab tablet Take 1 Tab by mouth daily. Take for one month, then resume Plavix. 30 Tab 0 ??? lisinopril (PRINIVIL, ZESTRIL) [...] Take 20 mg by mouth at bedtime. ??? aspirin 325 mg tablet Take 1 Tab by mouth daily. Aspirin 325 mg daily for 30 days then aspirin 81 mg daily for lifetime 30 Tab 0 Review of Systems A ten point review of systems was performed. Pertinent positives are listed below, all others are negative: Behavioral/Psych: positive for anxiety and depression Hematologic/lymphatic: positive for anemia Due for sleep study Objective: BP 148/72 Pulse 72 Wt 112.038 kg (247 lb) There is no height on file [...] 09/08/2009 HDL 52 09/08/2009 LDLBASE 110 09/08/2009 02/28/2010 total chol 165 Tri 257 hdl 42 ldl 72 Assessment: Raul Trujillo is a 54 y.o. year old male who presents with cad well compensated. Dyspnea, ? Reactive airways Plan: Cont present rx Proventil MDI documented in this encounter Plan of Treatment Upcoming Encounters Date Type Specialty Care Team Description 09/29/2022 Office Visit Gastroenterology and Shaq Phan, Hepatology [address] [place] [address] [address] [place] [phone] (Wo rk) documented as of this encounter Procedures Procedure Name Priority Date/Time Associated Diagnosis Comme nts EXERCISE TOLERANCE Routine 04/12/2010 12:26 Coronary Resul ts for this TEST EDT atherosclerosis of procedure are in [place] coronary artery the r esults section. documented in this encounter Results EXERCISE TOLERANCE TEST (04/12/2010 12:26 EDT) Specimen Narrative CARDIOLOGY - 04/17/2010 8:01 EDT ? [facility] ? [address] ?? [place] [address] ? ? Fax: ?? [email or web address] ? Fin al ECG Stress Test Report ? --- PATIENT PRESENTATION --- : 1955 Age: 54 ?Sex: male ? Height: 69 in ??Weight: 247 lb ?BSA: 2.26 Pt Type: OP History: ??54 year old man with known co ronary artery disease. ??History of [place] 1992 and multiple PCI's, ??most recently in Aug and September 2009. ??Asymptomatic. Presents for post stent evaluation. ??De nies pain at this time. Medications: Calcium channel blockers, A ntiplatelets, Oral Diabetic Agents, MIS inhibitors, Beta blockers, Lipid low ering agents, ASA Cardiovascular Risk Factors: ??Diabetes, Family history of CAD, Hypercholesterolemia, Hypertension, Obes ity, Past Smoker (quit > 6 mos ago) Prior Revascularization: ?Stents x 3 LAD >6 months ago 08/2009 ? Dallin nts x 2 RCA <6 months ago 09/2009 Reason for Study: CAD Referring Physician: RYLIE LOZADA MD ??FAX: [phone] ?--- CONCLUSION --- > Normal ECG Stress Test ?--- STR ESS ELECTROCARDIOGRAPHY --- BASELINE ECG: NSR- Normal ECG Supine HR: ? 74 ? Supin e BP: ??134 / 66 Upright HR: ?77 ? Uprig ht BP: ?154 / 64 STRESS TEST Stress Protocol: Sx Limited Gary Peak HR: ??132 ? Peak BP: ?190 / 40 ?MPHR: ??80% Peak Rate-Pressure Product: 40458 Total Exercise Time: 9 min ? F inal Stage: 3 ?Mets: 10.2 Test Stopped Due To: ??Fatigue ECG Changes: ?? None Performed By: ??Alina SOLIMAN, Meryl Pre-Test Symptom: ?? Asymptomatic ?Pre-test likelihood of CAD: ?? 100% Post-Test Symptom: ??No chest pain ? Post-test likelihood of CAD: ??100% ?--- STRESS SUMMARY --- 1. CHEST PAIN: None ?SHORTNESS OF BREATH: None 2. ECG CHANGES: Negative to 80% Max HR 3. EXERCISE CAPACITY FOR AGE: ??Average 4. Normal heart rate and ??normal blood pressure response to exercise 5. ARRHYTHMIA: None Stress ECG Interpretation By: ??Johnny Carballo MD - Attending Hydrographical Technical Officer Finalized on: 04/17/2010 8:01:20 AM This procedure was conducted under the s upervision of Ash Cruz MD who was readily available at all points thro ughout the procedure. Copy Report To: ? Procedure Note Johnny Carballo MD - 04/17/2010 [facility] [address] [place] [address] [phone] [email or web address] Final ECG Stress Test Report --- PATIENT PRESENTATION --- : 1955 Age: 54 Sex: male Height: 69 in Weight: 247 lb BSA: 2.26 Pt Type: OP History: 54 year old man with known edison nary artery disease. History of [place] 1992 and multiple PCI's, most recently i n Aug and September 2009. Asymptomatic. Presents for post stent evaluation. Abel es pain at this time. Medications: Calcium channel blockers, A ntiplatelets, Oral Diabetic Agents, MIS inhibitors, Beta blockers, Lipid low ering agents, ASA Cardiovascular Risk Factors: Diabetes, F amily history of CAD, Hypercholesterolemia, Hypertension, Obes ity, Past Smoker (quit > 6 mos ago) Prior Revascularization: Stents x 3 LAD >6 months ago 08/2009 Stents x 2 RCA <6 months ago 09/2009 Reason for Study: CAD Referring Physician: RYLIE LOZADA MD FAX: [phone] --- CONCLUSION --- > Normal ECG Stress Test --- STRESS ELECTROCARDIOGRAPHY --- BASELINE ECG: NSR- Normal ECG Supine HR: 74 Supine BP: 134 / 66 Upright HR: 77 Upright BP: 154 / 64 STRESS TEST Stress Protocol: Sx Limited Gary Peak HR: 132 Peak BP: 190 / 40 MPHR: 80% Peak Rate-Pressure Product: 47184 Total Exercise Time: 9 min Final Stage: 3 Mets: 10.2 Test Stopped Due To: Fatigue ECG Changes: None Performed By: Meryl Fuller RN Pre-Test Symptom: Asymptomatic Pre-test likelihood of CAD: 100% Post-Test Symptom: No chest pain Post-te st likelihood of CAD: 100% --- STRESS SUMMARY --- 1. CHEST PAIN: None SHORTNESS OF BREATH: None 2. ECG CHANGES: Negative to 80% Max HR 3. EXERCISE CAPACITY FOR AGE: Average 4. Normal heart rate and normal blood pr essure response to exercise 5. ARRHYTHMIA: None Stress ECG Interpretation By: Steve Carballo MD - Attending Hydrographical Technical Officer Finalized on: 04/17/2010 8:01:20 AM This procedure was conducted under the s upervision of Ash Cruz MD who was readily available at all points thro nikot the procedure. Copy Report To: Performing Organization Address City/State/ZIP Code Phon e Number [facility] documented in this encounter Visit Diagnoses Diagnosis Coronary atherosclerosis of [place] coron millie artery - Primary documented in this encounter Historical Medications This list may reflect changes made after this encounter. Medication Sig Dispensed Refills Start Date End Date citalopram (CELEXA) 20 Take 40 mg by mouth 0 10/07/2011 mg tabletIndications: daily. Indications: depression DEPRESSION added in this encounter Care Teams Netezza Developer Relationship Specialty Start Date End Date Joaquín Carpenter MD PCP - General 09/04/09 10/26/12 [address] [place] [address] documented as of this encounter
--- OUTSIDE RECORDS SUMMARY | 2022-02-21 01:13 | XMS_ITS | Encounter Summary ---
:1955 Author Organization [facility] Address [address] [place] [address] Care Team Providers Name Role Phone Joaquín Carpenter MD Primary Care Provider Encounter Details Date Type Department Care Team Description 10/15/2009 [facility] Cardiology Ta Joaquín esparza MD - [address] [place] [address] [phone] Social History Tobacco Use Types Packs/Day Years [...] Gastroenterology and Shaq Phan, Hepatology [address] [facility], [facility], [facility] [address] [place] [address] (Wo rk) documented as of this encounter Visit Diagnoses Not on filedocumented in this encounter Care Teams Filler Sifter Helper Relationship Specialty Start Date End Date Joaquín Carpenter MD PCP - General 09/04/09 10/26/12 [address] [place] [address] documented as of this encounter
--- OUTSIDE RECORDS SUMMARY | 2022-02-21 01:13 | XMS_ITS | Encounter Summary ---
:1955 Author Organization Address [address] [place] [address] Care Team Providers Name Role Phone Joaquín Carpenter MD Primary Care Provider Encounter Details Date Type Department Care Team Description 02/04/2012 Results Only [facility] Gregoria Donovan MD [facility] [address] [place] [phone] (Wo rk) Social History Tobacco Use Types [...] Gastroenterology and Shaq Phan, Hepatology [address] [facility], [facility], [address] [place] [phone] (Wo rk) documented as of this encounter Procedures Procedure Name Priority Date/Time Associated Diagnosis Comme nts SURGICAL PATHOLOGY Routine 02/04/2012 0:00 EDT Re sults for this procedure are i n the results section. documented in this encounter Results SURGICAL PATHOLOGY (02/04/2012 0:00 EDT) Pathology Report: SURGICAL PATHOLOGY REPORT JOHANA SOLORZANO Reports generated via electronic interface contain nacho ginal data; LAB however they are lacking the format of the original re port. Caution should be taken when reading/interpreting unfo rmatted reports. Name: ? RAUL BATISTA ? Accession #: ? [id number] ? : ? 1955 (Age: 56) ??M ? Collect Date: ? 02/04/2012 ? Location: ? [facility] ? Receive Date: ? 012 ? Provider: GREGORIA RAMIREZ MD Copy to: JOAQUÍN CARPENTER MD ? Final Pathologic Diagnosis: ? Skin of back, mid, punch biopsy: - Seborrheic keratosis, pigmented. Microscopic Description: ? The stratum corneum i s thickened by compact and basketweave orthokeratosis with formation of horn pseud ocysts. ??The epidermis is acanthotic with formation of broad and anastomosing tr abeculae. ??The trabeculae are composed of basaloid keratinocytes with round uniform nuclei. ??The keratin ocytes have a variable amount of melanin pigment. ??(Dr. Velazquez)/[facility] Document reviewed and electronically signed by: ELVIS VELAZQUEZ MD Report ??Date: 02/06/2012 15:43 By the signature above, the attending physician certif ies that he/she has personally conducted a gross and/or microscopic examin ation of the described specimens and rendered or confirmed the above diagnosi s. Specimen(s) Received: ? Mid back 2.0 mm punch bx Clinical History: ? Pigmented nevi Gross Description: ? Received in formalin labelled Raul Batista and 2.0 mm bx mid back is an irregular punch biopsy specimen of rock and br own-black skin which measures 0.3 x 0.2 cm in diameter, excised to a depth of 0.3 cm . ??The specimen is submitted intact in one cassette. ??(Carmen Chawla/natty End of Report Specimen Performing Organization Address City/State/ZIP Code Phon e Number [facility] [address] [place] [address] [facility] [address] [place] [address] documented in this encounter Visit Diagnoses Not on filedocumented in this encounter Care Teams Director Orange Relationship Specialty Start Date End Date Joaquín Carpenter MD PCP - General 09/04/09 10/26/12 [address] [place], [place] [phone] documented as of this encounter
--- OUTSIDE RECORDS SUMMARY | 2022-02-21 01:13 | XMS_ITS | Encounter Summary ---
:[address] [facility] Address [address] [place] [address] Care Team Providers Name Role Phone Joaquín Carpenter MD Primary Care Provider Encounter Details Date Type Department Care Team Description 09/09/2009 - Hospital Encounter [facility] Birdieluis Grace 09/11/2009 Cardiac/Telemetry Ran Payton MD [address], [place] [id number] Social History Tobacco Use Types Packs/Day Years [...] Sign Reading Time Taken Comments Blood Pressure 138/86 09/11/2009 0754 EST Pulse 70 09/11/2009 0754 EST Temperature 36.6 ??C (97.9 ??F) 09/11/2009 0754 EST Respiratory Rate 18 09/11/2009 0754 EST Oxygen Saturation 97% 09/11/2009 0754 EST Inhaled Oxygen Concentration - - Weight 108 kg (238 lb) 09/09/2009 1747 EST Height 175.3 cm (5' 9) 09/09/2009 1816 EST Body Mass Index 35.15 09/09/2009 1747 EST documented in this encounter Functional Status Cognitive Status Response Date of Assessment Because of a physical, mental, or emotional condition, do Ye s 09/09/2009 you have serious difficulty concentrating, remembering, or making decisions? (5 years old or older) documented as of this encounter Discharge Summaries José Miguel Medina Jr., MD - 09/09/2009 1824 EST Discharge Summary Chief Complaint/Reason for Admission: Chest pain Principal/Final Diagnosis: Unstable angina Principal Procedure: Left heart catheterization Date: 09/10/09 Secondary Procedures: PCI: Stent Condition at Discharge: Good Assessment at Discharge: Vital signs: Patient Vitals in the past 12 hrs: BP Temp Temp src Pulse Resp SpO2 Height Wt - Scale 09/11/09 0754 138/86 mmHg 36.6 ??C (97.9 ??F) Tympanic 70 18 97 % - - 09/10/09 2300 132/69 mmHg 36.8 ??C (98.2 ??F) Tympanic 69 16 95 % - - Hospital Course: Mr. Trujillo is a 53 yo gentleman with known CAD (Balloon angioplasty in 1992, PCI in 2003, and most recently PCI with MARY x 2 to RCA 09/07/09), DM, HTN, HLD, tobacco history, family h/o CAD, who presents one day after discharge from hospital and two days after PCI with chest pain at restand with exertion. The chest pain was minimal (/) but similar in quality to that prior to recent elective catheterization. He presented to an OSH where troponin was found to be 0.06 (negative cutoff<0.06) and was transferred to [facility]. On arrival he was chest pain free. He was admitted to observation, cardiac biomarkers were cycled, and heparin infusion was started. His home medications were continued. On HD 2 he underwent LHC where FFR of LAD was 0.69. He received 3 MARY to the LAD. He will be treated with Prasugrel 10 mg dly x 1 month followed by Plavix for one year minimum. He will follow upas planned prior to the second catheterization and PCI. Echo is pending at the time of discharge. Diagnostic Studies: Diagnostic Study Results: Coronary angiogram: Performed by EFT on 09/07/2009. FFR of LAD: FFR=0.69 Relevant Studies at Discharge: none Last Lab Results at Discharge: BUN: Lab Results Component Value Date/Time ??? BUN 10 09/11/09 6:42 AM Creatinine: Lab Results Component Value Date/Time ??? CREATININE 0.81 09/11/09 6:42 AM CBC: Lab Results Component Value Date/Time ??? WBC 8.26 09/11/09 6:42 AM ??? RBC 4.79 09/11/09 6:42 AM ??? HGB 14.5 09/11/09 6:42 AM ??? HCT 41.7 09/11/09 6:42 AM ??? MCV 87 09/11/09 6:42 AM ??? MCH 30.2 09/11/09 6:42 AM ??? MCHC 34.7 09/11/09 6:42 AM ??? PLT 234 09/11/09 6:42 AM Electrolytes: Lab Results Component Value Date/Time ??? NA 135 09/11/09 6:42 AM ??? K 4.4 09/11/09 6:42 AM ??? CL 100 09/11/09 6:42 AM ??? CO2 28 09/11/09 6:42 AM cc: MD Hardeep SON Discharge Summary Completed: Yes ATTENDING Attestation statement: I saw and evaluated the patient for discharge. I agree with the resident's/fellow's note. I personally spent 15 minutes in discharging services for this patient. JOSÉ MIGUEL MEDINA JR., MD documented in this encounter Discharge Instructions Shankar Yepez MD - 09/10/2009 Post Procedure Instructions: You had a percutaneous cardiovascular intervention (PCI) stent procedure on 09/10/09. Your procedure was performed through a small incision in the artery in your left leg. Normal Observations: Soreness or tenderness at the site may last one week but should be steadily improving. Brusing may last two weeks. Formation of a small lump (dime to quarter size) may last up to six weeks. Diet: No added salt, low saturated fat Weight Monitoring: Weigh and record your weight daily. If you note weight gain of 3 or more pounds in two days, please call your doctor. Activity: No heavy lifting or strenuous activity for 2 weeks Driving: May drive Activity Post Percutaneous [...] normal skin care Care of Your Incision: Do not apply any powders or lotions to this area. Bathing: No restrictions Pending Results: Not applicable Quality Measures for [...] while taking these medications, immediately contact your brush and broom clipper. Do not stop taking aspirin or Plavix without discussing this with your doctor. Appointments: Follow up with cardiology as planned prior to this hospitalization. Cardiac Rehab Referral: You have been referred to the [facility] cardiac rehabilitation program. The [facility] Card[facility] Center is located at [address] [place] [address], off [facility] ([address] Call [phone] for directions. Your initial visit is scheduled for 09/14/2009 at 10:30am. Follow-up Services Contacted at Discharge: none Heart [...] have given you relief, call your physician. documented in this encounter Medications at Time of Discharge Medication Sig Dispensed Refills Start Date End Date amlodipine (NORVASC) 10 Take 1 Tab by mouth 30 Tab 11 mg tablet daily. lisinopril (PRINIVIL, Take 5 mg by [...] at bedtime aspirin 325 mg tablet Take 1 Tab [...] interrupt thi s medication withour discussing with brush and broom clipper Start this medication in one month. First take Prasugrel 10 mg daily for one month. Start Plavix the day after stopping Prasugrel. metformin (GLUCOPHAGE) Take by mouth 2 times daily with meals. Restart Metformin Sat 30 Tab 0 09/10/2009 12/02/2018 1,000 mg Take as previously prescribed Metformin [facility] and tabletIndications: type Metformin 500 mg each evenin g, Indications: TYPE 2 DIABETES MELLITUS 2 diabetes mellitus Prasugrel (EFFIENT) 10 Take 1 Tab by mouth 30 Tab 0 08/2110/08/2010 mg Tab tablet daily. Take for one month, then resume Plavix. SIMVASTATIN (ZOCOR Take 40 mg by mouth at 0 04/13/2012 ORAL) bedtime. documented as of this encounter Ordered Prescriptions Prescription Sig Dispensed Refills Start Date End Date amlodipine (NORVASC) Take 1 Tab by mouth 30 Tab 11 2009 10 mg tablet daily. Prasugrel (EFFIENT) 10 Take 1 Tab by mouth 30 Tab 0 08/2110/08/2010 mg Tab tablet daily. Take for one month, then resume Plavix. metformin (GLUCOPHAGE) Take by mouth 2 times daily with meals. Restart Metformin Sat 30 Tab 0 09/10/2009 12/02/2018 1,000 mg Take as previously prescribed Metformin 1000 [facility] and tabletIndications: Metformin 500 mg each evenin g, Indications: TYPE 2 DIABETES MELLITUS type 2 diabetes mellitus clopidogrel (PLAVIX) Take 1 Tab by mouth daily. P lavix 75 mg daily uninterrupted for a minimum of one year 30 Tab 11 09/10/20092015 75 mg tablet Do not stop or interrupt thi s medication withour discussing with brush and broom clipper Start this medication in one month. First take Prasugrel 10 mg daily for one month. Start Plavix the day after stopping Prasugrel. documented in this encounter Discharge Disposition Disposition Code Departure Means Destination Home or Self Care documented in this encounter Progress Notes Felisa Holland - 09/11/2009 1114 EST 1020 Pt ambulating in the hallway, tolerated well. elisa Holland - 09/11/2009 0953 EST 930 Reviewed discharge instructions with pt. Felisa Maher - 09/11/2009 0953 EST 730 Assumed care for pt. Opal West RN - 09/11/2009 0952 EST Discharged without HH. Opal West RN - 09/11/2009 0949 EST This patient has been assessed using the [facility] Case Management risk screen. No needs were identified at this time. Please page the caseworker intake regarding utilization review issues or if discharge planning problems or barriers arise. Met with patient at request of Meryl Cerrato NP for interventional. Patient has prasugrel at discharge for a month , then plavix. He has [employer] for insurance and [place] but using [facility]BA. HE uses [facility]. PC to them: no prasugrel. PC to [facility] outpatient pharmacy: they have in stock. Patient will have spouse bring down RX. I gave him discount card.Patient is independent [employer]. is POA ans will transport. Major Account Representative: Esthela Jeronimo RN Beeper: [id number] Burke Luna MD - 09/11/2009 0907 EST Patient had an uneventful night and denies any chest pain or groin pain.There were no tachy/bradyarrhythmias noted on telemetry. Blood pressure 138/86, pulse 70, temperature 36.6 ??C (97.9 ??F), temperature source Tympanic, resp.rate 18, height 1.753 m (5' 9), weight 107.956 kg (238 lb), SpO2 97%. Neck: no JVD, no bruits Chest: CTA bilaterally CVS: RRR, S1+S2, no M/G/R Abd: Soft, NT, +BS Ext: PPP, no C/C/E, no hematoma Labs reviewed: Pt. Is a 53 YO WM with hx of HTN, CAD, HLD, obesity, DM2 with recent PCI to the RCA for unstable angina who returned on Thursday with CP. Now s/p PCI of the LAD with MARY with good results. 1. Continue Aspirin 325mg daily for 1 month, then 81mg daily indefinitely. Continue with prasugrel 10mg daily for 1 month and then plavix for at least 1 year. 2. BP continues to be mildly elevated. Amlodipine was increased to 10mg daily. Will continue with current dose of betablocker and increase the dose of lisinopril as an outpt. If still hypertensive. 3. Continue with current statin dose. Needs aggressive risk factor modification. Goal LDL is <70 mmol/L. Will dc today with fu with Dr. Goyo Galloway in 6 weeks and cardiac rehab. Israel Coyle RN - 09/10/2009 3494 EST D: See Post-Cath Flowsheet. A: RN to monitor groin site for hematoma/bleeding, tele for arrhythmias, CSMTs in affected extremities, I/O for adequate hydration, and other parameters as required per patient's condition. R: Will continue to monitor/assess and document per protocol. Hossein Sun - 09/10/2009 1621 EST R-3 Post Cath Check Pt doing well follow left heart catheterization. He denies any concerns currently. He denies any chest pain/dyspnea/palpitations/N/V. BP 127/81 Pulse 64 Temp(Src) 36.2 ??C (97.2 ??F) (Tympanic) Resp 16 Ht 1.753 m (5' 9) Wt 107.956 kg (238 lb) SpO2 99% GEN: NAD, A/O X3 CVS: RRR, no RMG Pulm: CTAB Abd: not distended, +BS, no TTP Right groin: dressing with small amount of dry blood, no TTP Ext: no REJI, 2+ PP A/P: Pt stable post LHC with PCI X3 to LAD, continue ASA/prasugrel/statin/BB. Monitor overnight and plan for discharge in AM. Lazaro Egan Israel Roach RN - 09/10/2009 0753 EST Pt transported to medical lab technician after taking all po am. Meds. to include asa 325mg and plavix 75mg. Hiro Choi MD - 09/10/2009 0724 EST CARDIOLOGY PROGRESS NOTE Admit Date: 09/09/2009 Date of Service: 09/10/2009 CHIEF COMPLAINT: Chest pain 24 HOUR EVENTS: Admitted to hospital SUBJECTIVE: Feels well this am. No chest pain since admission. Denies dyspnea, palpitations. MEDICATIONS: Current hospital medications Medication Route Frequency ??? amitriptyline (ELAVIL) tablet 20 mg Oral QHS ??? amlodipine (NORVASC) tablet 5 mg Oral DAILY ??? aspirin tablet 325 mg Oral DAILY ??? clopidogrel (PLAVIX) tablet 75 mg Oral DAILY ??? lisinopril (PRINIVIL, ZESTRIL) tablet 5 mg Oral DAILY ??? metoprolol XL (TOPROL-XL) tablet 150 mg Oral DAILY ??? simvastatin (ZOCOR) tablet 80 mg Oral QHS ??? sodium chloride 0.9 % flush 3 mL Intravenous Q8H ??? nitroGLYCERIN (NITROSTAT) SL tablet 0.4 mg Sublingual Q5 MINUTES PRN ??? morphine injection 2-4 mg Intravenous Q5 MINUTES PRN ??? dextrose 50 % solution 12.5 g Intravenous PRN ??? glucagon (human recombinant) injection 1 mg Intramuscular PRN ??? acetaminophen (TYLENOL) tablet 650 mg Oral Q4H PRN ??? heparin injection 6,000 Units Intravenous PRN ??? heparin injection 3,000 Units Intravenous PRN ??? insulin aspart (NOVOLOG FlexPen) injection Subcutaneous TID WC ??? bacitracin zinc 500 unit/g ointment Topical DAILY ??? heparin in 07/21 NS 25,000 unit/250 mL infusion Intravenous CONTINUOUS OBJECTIVE: BP 147/92 Pulse 70 Temp(Src) 36.2 ??C (97.2 ??F) (Tympanic) Resp 16 Ht 1.753 m (5' 9) Wt 107.956 kg (238 lb) SpO2 99% No intake or output data in the 24 hours ending 09/10/09 0725 General: No acute distress Psychiatric: Alert, fully oriented, pleasant conversant Lungs: Clear to auscultation bilaterally ant. Heart: Regular rate and rhythm, S1, S2 normal, no murmur, click, rub or gallop. Abdomen: Soft, non-tender. Bowel sounds normal. Genitalia: Herron absent. Extremities: Extremities normal, atraumatic, no cyanosis or edema. Pulses: 2+ and symmetric all extremities. Skin: Skin color, texture, turgor normal. No rashes or lesions TELEMETRY: Sinus rhythm, no events DATA REVIEW: CBC: Lab Results Component Value Date/Time ??? WBC 6.95 09/10/09 4:08 AM ??? RBC 4.94 09/10/09 4:08 AM ??? HGB 15.0 09/10/09 4:08 AM ??? HCT 42.9 09/10/09 4:08 AM ??? MCV 87 09/10/09 4:08 AM ??? MCH 30.3 09/10/09 4:08 AM ??? MCHC 34.9 09/10/09 4:08 AM ??? PLT 208 09/10/09 4:08 AM BMP: Lab Results Component Value Date/Time ??? NA 136 09/10/09 4:08 AM ??? K 4.0 09/10/09 4:08 AM ??? CL 100 09/10/09 4:08 AM ??? CO2 28 09/10/09 4:08 AM ??? BUN 11 09/10/09 4:08 AM ??? CREATININE 0.80 09/10/09 4:08 AM ??? GLUCOSEFINGE 132 09/10/09 7:21 AM ??? MG 1.8 09/09/09 7:28 PM Cardiac markers: Lab Results Component Value Date/Time ??? CKMBINDEX Value: Not calculated, normal MB. 09/10/09 4:08 AM ??? CKMBINDEX Value: Not calculated, normal MB. 09/09/09 9:13 PM ??? CKMBINDEX Value: Not calculated, normal MB. 09/08/09 7:38 AM ??? TROPONINI 0.07 09/10/09 4:08 AM ??? TROPONINI 0.07 09/09/09 9:13 PM IMPRESSION: 53 yo gentleman with CAD s/p MARY to RCA x 2 on 09/07 presents with recurrent pain after discharge. He did have <70% occlusion of LAD and LCx on recent cath which could be etiology of his pain. Also could have non-cardiac pain. CE negative x 2 since admission. Unstable angina vs non-cardiac chest pain. PROBLEMS: Patient Active Hospital Problem List: CAD (coronary artery disease) (09/07/2009) 09-07-09 LHC : PCI MARY X 3 RCA 09-07-09 LHC: LM nl; LAD 50% mid 60% distal; Cx 40% distal; RCA 90% distal 70% mid, EF 60% Diabetes mellitus (09/07/2009) Oral agent - metformin PLAN: 1. Chest pain: --final set of enzymes pending --LHC today for FFR --Continue Asa, Plavix, Bblocker, AceI, Statin --If nothing to intervene on at cath could consider long acting nitrate 2. DM: --SSI 3. HTN: --Amlodipine, Bblocker, AceI Code status: Full Code Attestation statement: I saw and examined the patient with the resident/fellow. I agree with the findings and plan of care documented in the resident's/fellow's note. José Miguel Ragsdale Jr., MD - 09/10/2009 0000 EST September 10, 2009 Joaquín Carpenter MD [facility] [address] [place] [address] Carpenter, I had the pleasure of performing cardiac catheterization and percutaneous intervention on Raul Trujillo today. Mr. Trujillo is a 53-year-old male who presented with exertional chest pain. He underwent stenting to his right coronary artery on Thursday with intermediate lesions by angiography in his left anterior descending artery that were left alone. He was brought back to the medical lab technician today because of recurrent angina. We performed fractional flow reserve assessment of the left anterior descending artery, achieving a value of 0.69. Any value of less than 0.80 is considered significant for ischemia. For this reason, we proceeded with percutaneous intervention on the LAD. I was able to successfully place a total of 3 stents, 2 drug-eluting and 1 bare- metal, from the proxto distal portion of the left anterior descending artery. We had good results in the main shaft of the left anterior descending artery, with an occlusion of a very small third diagonal artery. He was chest pain free at the end of the procedure. Mr. Trujillo received a significant number of stents today and needs to remain on dual antiplatelet therapy for a minimum of 1 year without cessation. We are going to start him on prasugrel 10 mg a day for 1 month and then he should go on clopidogrel 75 mg a day thereafter for a year. He should also remain on aspirin indefinitely. Thank you for allowing me to participate in the care of Raul Trujillo. Please feel free to call anytime if you have any questions or concerns. Sincerely, José Miguel Medina MD 10 19 AM by José Miguel Medina MD / mlw Confirmation: [id number] Dictation ID: [id number] cc:Joaquín Carpenter MD documented in this encounter H&P Notes José Miguel Medina Jr., MD - 09/09/2009 1811 EST MEDICINE H&P / ADMISSION NOTE Admit Date: 09/09/2009 Date of Service: 09/09/2009 PRIMARY CARE PHYSICIAN: Joaquín Carpenter MD CHIEF COMPLAINT: Chest pain HISTORY OF PRESENT ILLNESS: Patient is a 53 y.o. male with known CAD who was admitted to [facility] two days ago on 09/07/09 with Unstable Angina, and had three stents placed in the RCA. He was discharged yesterday and did well at home overnight, with no chest pain. This morning, on ambulating at home and later in the shower he felt chest pain similar in character to his previous admission but less severe. It was 2/10 this morning and4-5/10 at its worst 2 days ago. The pain subsided with rest and SL nitro. He presented to [facility], where the troponin was 0.06 and an EKG did not show ischemic changes. He was transferred here for furtherworkup. The cath showed: LM:Nl LAD:50% mid, 60% distal Cx:40% distal RCA: 90% distal, 70% mid EF:60% LVEDP: 10 The RCA was treated with a 3.0 OTW maverick followed by a 3.5 [place], and [place] Voyager. Stent delivery required 2 nataly wires. [place] 3.0x15, 3.5x12 and 3.5x30 stents were placed and post dilated with a 3.5 mm Quantum. The patient states that he is currently chest pain-free. He denies any dyspnea, syncope, palpitations, nausea, or diaphoresis. There has not been fevers, chills, cough, abdominal pain, vomiting, d/c, melena or hematochezia. No edema. His catheter site has not been bleeding. PMH PSH Past Medical History Diagnosis Date ??? [place] (myocardial infarction) 1992, 2003 ??? CAD (coronary artery disease) stents x2 2003 ??? Hypertension ??? Diabetes mellitus oral agents ??? Diverticulitis ??? Hyperlipidemia ??? Recurrent infections rt foot 5th toe Past Surgical History Procedure Date ??? Umbilical hernia repair Jun, 2009 MEDICATIONS Prescriptions prior to admission Medication Sig Dispense Refill ??? lisinopril (PRINIVIL, [...] 20 mg by mouth at bedtime. ??? amlodipine (NORVASC) 5 mg tablet Take [...] or interrupt this medication withour discussing with brush and broom clipper 30 Tab 11 ??? metformin (GLUCOPHAGE) 1,000 mg tablet Take by mouth 2 times daily with meals. Restart MetforminMon Take as previously prescribed Metformin 1000 mg in the morning and Metformin 500 mg each evening, Indications: TYPE 2 DIABETES MELLITUS 30 Tab 0 ALLERGIES No Known Allergies SOCIAL HISTORY FAMILY HISTORY History Substance Use Topics ??? Tobacco Use: Quit -- 20 years quit 17 yrs ago ??? Alcohol Use: Yes rare Family History Problem Relation ??? Diabetes Brother ??? Heart Disease Brother ??? Heart Disease Father at age 61 REVIEW OF SYSTEMS: 10 point ROS negative except as above OBJECTIVE: BP 128/76 Pulse 67 Temp(Src) 37 ??C (98.6 ??F) (Tympanic) Resp 20 Ht 1.753 m (5' 9) Wt 107.956 kg (238 lb) SpO2 98% No intake or output data in the 24 hours ending 09/09/09 1826 General: No acute distress Psychiatric: Alert, fully oriented, pleasant conversant Head: Normocephalic, without obvious abnormality, atraumatic. Eyes: Conjunctivae/corneas clear. PERRL, EOMs intact. Sclerae anicteric ENT: Mucus membranes moist; oropharynx clear. Dentition good. Neck: Supple, symmetrical, trachea midline, no thyromegaly, no carotid bruit and no JVD. Lymph Nodes: No cervical or supraclavicular lymphadenopathy. Lungs: Clear to auscultation bilaterally. Chest wall: No tenderness or deformity. Heart: Regular rate and rhythm, S1, S2 normal, no murmur, click, rub or gallop. Abdomen: Soft, non-tender. Bowel sounds normal. No masses, No organomegaly. Genitalia: Herron absent. Extremities: Cath site with small ecchymosis. Extremities normal, atraumatic, no cyanosis or edema. Back: Symmetric. 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 Pulses: 2+ and symmetric all extremities. Skin: Skin color, texture, turgor normal. No rashes or lesions Neurologic: CNII-XII intact. Normal strength, sensation and reflexes throughout. ECG: normal sinus rhythm, no blocks or conduction defects, no ischemic changes, WNL. Data Review Pending IMPRESSION: 53 yo with exertional chest pain on the second day post-stent to the RCA. He did have significant disease in the distal LAD (60%) that was not stented, and may be causing the anginal symptoms. PROBLEMS: Patient Active Hospital Problem List: CAD (coronary artery disease) (09/07/2009) 09-07-09 LHC : PCI MARY X 3 RCA 09-07-09 LHC: LM nl; LAD 50% mid 60% distal; Cx 40% distal; RCA 90% distal 70% mid, EF 60% Diabetes mellitus (09/07/2009) Oral agent - metformin PLAN: 1. CAD: now with exertional angina. - Continue heparin gtt - Tele, cycle enzymes - Continue full dose ASA and plavix 75 - May need LHC for stent placement to the LAD or repeat stress test 2. DM - last A1C 6.4 per patient - SSI - bacitracin to chronic toe wound 3. Continue amlodipine, amitriptyline, lisinopril, metoprolol, simvastatin DVT Prophylaxis: Code status: Full Code Cardiology R3 Addendum: I have examined pt, discussed with Dr. Garcia, and agree with his note above. In summary, Mr. Trujillo is a 53 yo gentleman with known CAD, DM, HTN, HLD, who presents 2 days after PCI with MARY x2 to RCA with exertional and rest chest pain. Pain is similar in quality and less in quantity. No EKG changes, first troponin (OSH) negative. Ddx: Unstable angina vs NSTEMI. Plan: 1. Start heparin gtt, cont Asa, Plavix, Bblocker, Statin, AceI 2. Consider LHC in am with FFR Humberto #[id number] Fellow addendum Agree with above, 53 yo M with recent PCI to the RCA, reviewing films with Dr. Alejandra ? Tight LAD stenosis. Plan for LHC in AM with either PCI or FFR to LAD. ATTENDING Attestation statement: I saw and examined the patient with the resident/fellow. I agree with the findings and plan of care documented in the resident's/fellow's note. JOSÉ MIGUEL MEDINA JR., MD documented in this encounter Procedure Notes Inpatient, MD Javier - 09/21/2009 0307 ESTAssociated Order(s): ECG REPORT - SCANNED; ECG REPORT - SCANNED Inpatient, MD Javier - 09/21/2009 0307 ESTAssociated Order(s): ECG REPORT - SCANNED; ECG REPORT - SCANNED Inpatient, MD Javier - 09/21/2009 0307 ESTAssociated Order(s): ECG REPORT - SCANNED; ECG REPORT - SCANNED Inpatient, MD Javier - 09/14/2009 0754 ESTAssociated Order(s): ECG REPORT - SCANNED; ECG REPORT - SCANNED José Miguel Ragsdale Jr., MD - 09/10/2009 1006 ESTProcedure(s): RI IV DOP ROSA&/OR PRESS C/KUMAR RSRV JOAO 1ST VSL; CORONARY ANGIOPLASTY WITH STENT PLACEMENT; RI IV DOP ROSA&/OR PRESS C/KUMAR RSRV JOAO 1ST VSL; CORONARY ANGIOPLASTY WITH STENT PLACEMENT Pre-Procedure Diagnose(s): NSTEMI (non-ST elevated myocardial infarction) ([facility]) ([facility]); CAD (coronary artery disease); NSTEMI (non-ST elevated myocardial infarction) ([facility]-CMS) ([facility]); CAD (coronary artery disease)Post-Procedure Diagnose(s): CAD (coronary artery disease); CAD (coronary artery disease) PRELIMINARY CARDIAC CATHETERIZATION REPORT NOT FINAL Attending: Germaine Fellow(s)/MATCHING MACHINE OPERATOR: Cecilia Anesthesia used for procedure: A moderate level of anesthesia/conscious sedation was used for this procedure. Contrast volume: 230 ml Estimated blood loss: 10 ml Unless otherwise noted, there was no blood loss, specimens removed, cultures obtained or drains retained Access: Left Femoral Artery- 6Fr Closure: Starclose 5Fr/6Fr Complications: None Diagnostic Study Results: Coronary angiogram: Performed by EFT on 09/07/2009. FFR of LAD: FFR=0.69 Diagnostic Summary: Flow-limiting LAD disease Plan: PCI is indicated Interventional Procedure: Using standard technique, the LAD vessel was stented using Promus 2.75x18 (prox), Taxus Liberte Atom2.25x28 (mid) and Mini-Vision 2.0x12 (distal). This yielded a good result and no complications. The very small 3rd diagonal was jailed and had TIMII flow at the end of the procedure. Post-Interventional Plan: (See Also Post Procedure Orders) Aspirin 325 mg po qd x 30 day, then 81 qd indefinitely. Aspirin should never be stopped for more than 48 hours without consulting a brush and broom clipper. Prasugrel 10mg a day for one month Plavix 75 mg po qd x 1 year minimum after the end of one month of prasugrel. Continue current beta-rohini and ACEi doses. Continue simvastatin 80 mg po qd D/C tomorrow if stable. Post Interventional Conclusion/Physician order for admission status: ?? On the basis of clinical presentation, co-morbidities and procedural outcome/complications, this outpatient requires inpatient hospitalization after PCI or PVI: ?? Already inpatient or acute coronary syndrome Side branch occlusion, persistent thrombus, perforation Reference: SERA Hernandez et al. Randomized trial comparing same-day discharge with overnight hospital stay after percutaneous coronary intervention. Circulation. 2006November 17;115(17):2299-306. documented in this encounter OR Notes Anesthesia Procedure Notes - Inpatient, MD Javier - 09/14/2009 0754 EST documented in this encounter Miscellaneous Notes Scanned Note-Null - Inpatient, MD Javier - 09/14/2009 0754 EST canned Note-Null - Inpatient, MD Javier - 09/14/2009 0754 EST canned Note-Null - Inpatient, MD Javier - 09/14/2009 0754 EST canned Note-Null - InpatientPhysician MD - 09/14/2009 0754 EST Miscellaneous - InpatientPhysician MD - 09/14/2009 0754 EST lan of Care - Cheli Kulkarni RN - 09/10/20092201 EST Problem: Acute Ischemic Pain - Cardiac Acute ischemic pain of a cardiac nature is generally manifested in the chest or left arm but mat be evidenced in other areas such as the jaw or teeth. The patient will frequently describe it as a pressure, squeezing or apprehension rather than pain. Goal: Patient Remains Pain Free Patient goal is to remain free of pain from cardiac ischemis Outcome: Met This Shift Active Multi-Disciplinary problems: HOSPITAL ORIENTATION/SAFETY [67894] (09/09/09) Acute Ischemic Pain - Cardiac [99154] (09/10/09) Risk for decreased cardiac output [40352] (09/10/09) Data: No c/o pain or SOB. VSS, see flowsheet. Left groin D+I no ecchymosis, no hematoma noted. Smallamount old bloody drainage noted to left groin dressing. Pt able to verbalize understanding and acceptance of stent procedure done today. OOB ambulating well in hallway >200ft. Action: Discharge teaching initiated. Increased ADL's encouraged. Response: Pt verbalizes good understanding and acceptance. Cont to monitor. Cheli Kulkarni, RN 09/10/2009 9:54 PM lan of Care - Carlos Reyez - 09/09/2009 1824 EST Problem: HOSPITAL ORIENTATION/SAFETY Goal: Oriented To Hospital Environment D: Patient arrived to [place] [address] . Vital signs noted. Tele applied. Patient SR with HR in 80s. Patient denies chest pain, SOB, and discomfort. Patient denies complaints at this time. Patient oriented to room, equipment, and careplan. A: Assessment as documented in flowsheet. Admission database complete. R: RN will continue to monitor and document per protocol. documented in this encounter Plan of Treatment Upcoming Encounters Date Type Specialty Care Team Description 09/29/2022 Office Visit Gastroenterology and [facility] [address] [facility], [facility] [address] [place] [address] (Wo rk) documented as of this encounter Procedures Procedure Name Priority Date/Time Associated Comments Diagnosis ECG REPORT - SCANNED 09/21/2009 3:07 Resu lts for this EST procedure are i n the results section. ECG REPORT - SCANNED 09/21/2009 3:07 Resu lts for this EST procedure are i n the results section. ECG REPORT - SCANNED 09/21/2009 3:07 Resu lts for this EST procedure are i n the results section. ECG REPORT - SCANNED 09/14/2009 7:54 Resu lts for this EST procedure are i n the results section. ECHOCARDIOGRAM Routine 09/11/2009 10:16 Results f or this EST procedure are i n the results section. GLUCOSE, GLUCOMETER Routine 09/11/2009 7:53 Resul ts for this EST procedure are i n the results section. PTT Routine 09/11/2009 6:42 Results for this EST procedure are i n the results section. COMPLETE BLOOD COUNT Routine 09/11/2009 6:42 Resu lts for this EST procedure are i n the results section. BUN Routine 09/11/2009 6:42 Results for this EST procedure are i n the results section. CREATININE Routine 09/11/2009 6:42 Results for this EST procedure are i n the results section. CK MB WITH TOTAL CK Routine 09/11/2009 6:42 Resul ts for this EST procedure are i n the results section. ELECTROLYTES Routine 09/11/2009 6:42 Results for this EST procedure are i n the results section. EKG 12-LEAD Routine 09/11/2009 0:07 EST GLUCOSE, GLUCOMETER Routine 09/10/2009 21:03 Resu lts for this EST procedure are i n the results section. GLUCOSE, GLUCOMETER Routine 09/10/2009 17:16 Resu lts for this EST procedure are i n the results section. CK MB WITH TOTAL CK Routine 09/10/2009 15:27 Resu lts for this EST procedure are i n the results section. GLUCOSE, GLUCOMETER Routine 09/10/2009 11:01 Resu lts for this EST procedure are i n the results section. EKG 12-LEAD Routine 09/10/2009 10:22 EST LEFT HEART CATH Routine 09/10/2009 8:33 Results f or this EST procedure are i n the results section. GLUCOSE, GLUCOMETER Routine 09/10/2009 7:21 Resul ts for this EST procedure are i n the results section. TROPONIN I Routine 09/10/2009 4:08 Results for this EST procedure are i n the results section. PTT Routine 09/10/2009 4:08 Results for this EST procedure are i n the results section. COMPLETE BLOOD COUNT Routine 09/10/2009 4:08 Resu lts for this EST procedure are i n the results section. BUN Routine 09/10/2009 4:08 Results for this EST procedure are i n the results section. HEMOGLOBIN A1C Routine 09/10/2009 4:08 Results fo r this EST procedure are i n the results section. CREATININE Routine 09/10/2009 4:08 Results for this EST procedure are i n the results section. CK MB WITH TOTAL CK Routine 09/10/2009 4:08 Resul ts for this EST procedure are i n the results section. ELECTROLYTES Routine 09/10/2009 4:08 Results for this EST procedure are i n the results section. EKG 12-LEAD Routine 09/10/2009 0:07 EST TROPONIN I Routine 09/09/2009 21:13 Results for this EST procedure are i n the results section. CK MB WITH TOTAL CK Routine 09/09/2009 21:13 Resu lts for this EST procedure are i n the results section. GLUCOSE, GLUCOMETER Routine 09/09/2009 20:30 Resu lts for this EST procedure are i n the results section. SCREENING GLUCOSE Routine 09/09/2009 19:28 Result s for this EST procedure are i n the results section. HOLD BLUE TOP Routine 09/09/2009 19:28 Results fo r this EST procedure are i n the results section. ELEVATED GLUCOSE Routine 09/09/2009 19:28 Results for this EST procedure are i n the results section. PTT STAT 09/09/2009 19:28 Results for this EST procedure are i n the results section. PTT Routine 09/09/2009 19:28 Results for this EST procedure are i n the results section. PROTIME Routine 09/09/2009 19:28 Results for this EST procedure are i n the results section. COMPLETE BLOOD COUNT Routine 09/09/2009 19:28 Res ults for this EST procedure are i n the results section. BUN Routine 09/09/2009 19:28 Results for this EST procedure are i n the results section. MAGNESIUM Routine 09/09/2009 19:28 Results for this EST procedure are i n the results section. CREATININE Routine 09/09/2009 19:28 Results for this EST procedure are i n the results section. ELECTROLYTES Routine 09/09/2009 19:28 Results for this EST procedure are i n the results section. GLUCOSE, GLUCOMETER Routine 09/09/2009 18:43 Resu lts for this EST procedure are i n the results section. documented in this encounter Results ECG REPORT - SCANNED (09/21/2009 3:07 EST) Specimen Narrative 09/21/2009 16:47 EST This result has an attachment that is no t available. Ordered by an unspecified provider. Transcriptions Inpatient, Physician, - 09/21/2009 3: 07 EST ECG REPORT - SCANNED (09/21/2009 3:07 EST) Specimen Narrative 09/21/2009 16:47 EST This result has an attachment that is no t available. Ordered by an unspecified provider. Transcriptions Inpatient, MD Javier - 09/21/2009 3: 07 EST ECG REPORT - SCANNED (09/21/2009 3:07 EST) Specimen Narrative 09/21/2009 16:47 EST This result has an attachment that is no t available. Ordered by an unspecified provider. Transcriptions Inpatient, MD Javier - 09/21/2009 3: 07 EST ECG REPORT - SCANNED (09/14/2009 7:54 EST) Specimen Narrative This result has an attachment that is no t available. Procedure Note Inpatient, MD Javier - 09/14/2009 7: 54 EST ECHOCARDIOGRAM (09/11/2009 10:16 EST) Specimen Narrative CARDIOLOGY - 09/11/2009 11:53 EST Interpreting Group: [facility] [place] [address] *STUDY CONCLUSIONS* SUMMARY - ??Overall left ventricular systolic fu nction was normal. Left ventricular ejection fraction was estimated to be 65 %. There were no left ventricular regional wall motion abnorma lities. - ??Left atrial size was at the upper li mits of normal. - ??There are no significant valvular ab normalities. *PATIENT PRESENTATION* Height: ? 69 in ( 175 cm ) S/D Pressure: Weight: ? 239.58 lb ( 108.9 kg ) BSA: ?2.23 m^2 Referring MD: ??Shankar Tyson MD Loan Administrator: ?? Ken Haque Ordering MD: ?? Shankar Tyson MD Referring MD: ??Joaquín Carpenter MD Attending MD: ??Grace Espinoza MD Admitting MD: ??Grace Espinoza MD *INDICATIONS AND HISTORY* DIAGNOSES SUPPORTING MEDICAL NECESSITY: 411.1 Angina - unstable Stent. ( 08/2009 ) *PROCEDURE DATA* PROCEDURE INFORMATION: A transthoracic complete 2D study was pe rformed. Additional evaluation included M-mode, complete spectral Doppl er, and color Doppler. Agitated saline and definity. This was a routine echocardiographic study. This study was interpreted by [facility]. The procedure was started a t 10:18:44. The procedure ended at 10:57:37. [id number] Acoustics window availa bility yielded suboptimal access. Body habitus yielded suboptimal views. *CARDIAC ANATOMY* LEFT VENTRICLE: - ??Left ventricular size was normal. - ??Overall left ventricular systolic fu nction was normal. - ??Left ventricular ejection fraction w as estimated to be 65 %. - ??There were no left ventricular regio nal wall motion abnormalities. - ??Left ventricular wall thickness was normal. RIGHT VENTRICLE: - ??Right ventricular size was normal. - ??Right ventricular systolic function was normal. - ??Right ventricular wall thickness was normal. LEFT ATRIUM: - ??Left atrial size was at the upper li mits of normal. RIGHT ATRIUM: - ??Right atrial size was normal. AORTIC VALVE: - ??The aortic valve was trileaflet. - ??Aortic valve thickness was normal. - ??There was normal aortic valve leafle t excursion. Doppler interpretation(s): - ??There was no significant aortic valv e stenosis by color Doppler and spectral Doppler. - ??There was no significant aortic valv ular regurgitation by color Doppler. MITRAL VALVE: - ??Mitral valve structure was normal. - ??There was normal mitral valve leafle t excursion. Doppler interpretation(s): - ??There was no significant mitral valv e stenosis by color Doppler and spectral Doppler. - ??There was no significant mitral valv ular regurgitation by color Doppler. PULMONIC VALVE: - ??The structure of the pulmonic valve appeared to be normal. Doppler interpretation(s): - ??There was no significant pulmonic va lve stenosis by color Doppler and spectral Doppler. - ??There was trivial pulmonic regurgita tion by color Doppler. TRICUSPID VALVE: - ??The tricuspid valve structure was no rmal. - ??Tricuspid leaflet excursion was norm al. Doppler interpretation(s): - ??There was no significant tricuspid v alve stenosis by color Doppler and spectral Doppler. - ??There was trivial tricuspid valvular regurgitation by color Doppler. PERICARDIUM: - ??There was no significant pericardial effusion. - ??The pericardium was normal in appear ance. AORTA: - ??The aortic root was normal in size. PULMONARY ARTERY: - ??The pulmonary artery was normal size . Doppler interpretation(s): - ??The estimated pulmonary artery systo lic pressure was within the normal range. SYSTEMIC VEINS: - ??The inferior vena cava was normal. *MEASUREMENT TABLES* 2D measurements LEFT VENTRICLE ? NORMAL LVID ed (chordal) ?50.5 ??mm ?<56 mm LVID es (chordal) ?22.5 ??mm ?<40 mm FS (chordal) ? 55 ?% ? >29% IVS ed ? 9 ? m m ?<11mm LVPW ed ?9.4 ?? mm ?<11 mm Doppler measurements LEFT VENTRICLE ? NORMAL Tissue Doppler LV Ea (lat annulus) ?11 ?cm/sec ??-- LV E/Ea (lat annulus) ??6.8 ? -- LV Ea (med annulus) ?10 ?cm/sec ??-- LV E/Ea (med annulus) ??7.5 ? -- MITRAL VALVE ? NORMAL Peak E velocity ?75 ?cm/se c ??62 + or - 14 cm/sec Peak A velocity ?84 ?cm/se c ??49 + or - 14 cm/sec MV peak E/A ?0.89 ?1.1-1.7 MV deceleration time ?? 250 ?? msec ?210 + or - 40 Peak gradient ?2 ? mmHg ?-- Pressure half-time ? 72.5 ??msec ?-- *CONTRAST ECHO RESULTS* 4 ml of Definity diluted in 10 ml saline was administered by Ken Haque CVT. 1 vials of Definity was used. Reviewed and signed by Hardeep Silva MD Confirmed 11-Sep-2009 11:52:12 Procedure Note 09/11/2009 Interpreting Group: [facility] [address] [place] [address] *STUDY CONCLUSIONS* SUMMARY - Overall left ventricular systolic func tion was normal. Left ventricular ejection fraction was estimated to be 65 %. There were no left ventricular regional wall motion abnorma lities. - Left atrial size was at the upper limi ts of normal. - There are no significant valvular abno rmalities. *PATIENT PRESENTATION* Height: 69 in ( 175 cm ) S/D Pressure: Weight: 239.58 lb ( 108.9 kg ) BSA: 2.23 m^2 Referring MD: Shankar Tyson MD Loan Administrator: Ken Canales MD: Shankar Tyson MD Referring MD: Joaquín Carpenter MD Attending MD: Grace Espinoza MD Admitting MD: Grace Espinoza MD *INDICATIONS AND HISTORY* DIAGNOSES SUPPORTING MEDICAL NECESSITY: 411.1 Angina - unstable Stent. ( 08/2009 ) *PROCEDURE DATA* PROCEDURE INFORMATION: A transthoracic complete 2D study was pe rformed. Additional evaluation included M-mode, complete spectral Doppl er, and color Doppler. Agitated saline and definity. This was a routine echocardiographic study. This study was interpreted by [facility]. The procedure was started a t 10:18:44. The procedure ended at 10:57:37. [id number] Acoustics window availa bility yielded suboptimal access. Body habitus yielded suboptimal views. *CARDIAC ANATOMY* LEFT VENTRICLE: - Left ventricular size was normal. - Overall left ventricular systolic func tion was normal. - Left ventricular ejection fraction was estimated to be 65 %. - There were no left ventricular regiona l wall motion abnormalities. - Left ventricular wall thickness was no rmal. RIGHT VENTRICLE: - Right ventricular size was normal. - Right ventricular systolic function wa s normal. - Right ventricular wall thickness was n ormal. LEFT ATRIUM: - Left atrial size was at the upper limi ts of normal. RIGHT ATRIUM: - Right atrial size was normal. AORTIC VALVE: - The aortic valve was trileaflet. - Aortic valve thickness was normal. - There was normal aortic valve leaflet excursion. Doppler interpretation(s): - There was no significant aortic valve stenosis by color Doppler and spectral Doppler. - There was no significant aortic valvul ar regurgitation by color Doppler. MITRAL VALVE: - Mitral valve structure was normal. - There was normal mitral valve leaflet excursion. Doppler interpretation(s): - There was no significant mitral valve stenosis by color Doppler and spectral Doppler. - There was no significant mitral valvul ar regurgitation by color Doppler. PULMONIC VALVE: - The structure of the pulmonic valve ap peared to be normal. Doppler interpretation(s): - There was no significant pulmonic valv e stenosis by color Doppler and spectral Doppler. - There was trivial pulmonic regurgitati on by color Doppler. TRICUSPID VALVE: - The tricuspid valve structure was norm al. - Tricuspid leaflet excursion was normal . Doppler interpretation(s): - There was no significant tricuspid tash ve stenosis by color Doppler and spectral Doppler. - There was trivial tricuspid valvular r egurgitation by color Doppler. PERICARDIUM: - There was no significant pericardial e ffusion. - The pericardium was normal in appearan ce. AORTA: - The aortic root was normal in size. PULMONARY ARTERY: - The pulmonary artery was normal size. Doppler interpretation(s): - The estimated pulmonary artery systoli c pressure was within the normal range. SYSTEMIC VEINS: - The inferior vena cava was normal. *MEASUREMENT TABLES* 2D measurements LEFT VENTRICLE NORMAL LVID ed (chordal) 50.5 mm <56 mm LVID es (chordal) 22.5 mm <40 mm FS (chordal) 55 % >29% IVS ed 9 mm <11mm LVPW ed 9.4 mm <11 mm Doppler measurements LEFT VENTRICLE NORMAL Tissue Doppler LV Ea (lat annulus) 11 cm/sec -- LV E/Ea (lat annulus) 6.8 -- LV Ea (med annulus) 10 cm/sec -- LV E/Ea (med annulus) 7.5 -- MITRAL VALVE NORMAL Peak E velocity 75 cm/sec 62 + or - 14 c m/sec Peak A velocity 84 cm/sec 49 + or - 14 c m/sec MV peak E/A 0.89 1.1-1.7 MV deceleration time 250 msec 210 + or - 40 Peak gradient 2 mmHg -- Pressure half-time 72.5 msec -- *CONTRAST ECHO RESULTS* 4 ml of Definity diluted in 10 ml saline was administered by Ken MIRANDA. 1 vials of Definity was used. Reviewed and signed by Hardeep Silva MD Confirmed 11-Sep-2009 11:52:12 Performing Organization Address [facility]/ZIP Code Phon e Number [facility] (ABNORMAL) GLUCOSE, GLUCOMETER (09/11/2009 7:53 EST) Pathologist [facility] Glucose, 158 (H) 70 - 100 VAUGHN CHRISTY Fingerstick mg/dl LAB Canal Superintendent [place] [id number] VAUGHNRADHA HARRISON Test Performed by Nursing Services LAB Specimen Performing Organization Address [facility]/ZIP [facility] Phon e Number [facility] [address] [place] [address] SERVICES [facility] [address] [place] [address] CREATININE (09/11/2009 6:42 EST) Pathologist [facility] Creatinine 0.81 0.7 - 1.5 mg/dl [facility] LAB GFR, Calculated >60 ml/min/1.73m2 [facility] LAB Specimen Blood specimen (specimen) Performing Organization Address [facility]/ZIP Code Phon e Number [facility] [address] [place] [address] SERVICES [facility] [address] [place] [address] BUN (09/11/2009 6:42 EST) Pathologist [facility] BUN 10 10 - 26 mg/dl [facility] LAB Specimen Blood specimen (specimen) Performing Organization Address [facility]/ZIP Code Phon e Number [facility] [address] [place] [address] SERVICES [facility] [address] [place] [address] (ABNORMAL) ELECTROLYTES (09/11/2009 6:42 EST) Pathologist Sig nature Sodium 135 (L) 136 - 145 mEq/L [facility] Potassium 4.4 3.5 - 5.0 mEq/L [facility] Chloride 100 96 - 110 mEq/L [facility] CO2 28 24 - 32 mEq/L [facility] LAB Specimen Blood specimen (specimen) Performing Organization Address [facility] Phon e Number [facility] [address] [place] [address] SERVICES [facility] [address] [place] [address] HEMAGRAM (09/11/2009 6:42 EST) Pathologist [facility] WBC 8.26 4.0 - 10.4 K/cmm [facility] RBC 4.79 4.36 - 5.78 M/cmm [facility] Hemoglobin 14.5 13.8 - 17.3 gm/dl [facility] HCT 41.7 39.5 - 50.2 % [facility] MCV 87 81 - 95 fl [facility] MCH 30.2 27.6 - 33.0 pg [facility] MCHC 34.7 32.8 - 36.4 gm/dl [facility] PLT 234 141 - 320 K/cmm [facility] RDW-CV 13.0 11.8 - 14.1 % [facility] Specimen Blood specimen (specimen) Performing Organization Address [facility]/ZIP [facility] Phon e Number [facility] [address] [place] [address] SERVICES [facility] [address] [place] [address] PTT (09/11/2009 6:42 EST) Pathologist Sig nature PTT 28Comment: 20 - 35 secs [facility] Therapeutic Heparin range: 60-100 seconds Specimen Blood specimen (specimen) Performing Organization Address [facility]/ZIP [facility] Phon e Number [facility] [address] [place] [address] SERVICES [facility] [address] [place] [address] CK MB WITH TOTAL CK (09/11/2009 6:42 EST) Pathologist Sig nature CK 90 0 - 250 U/L [facility] MB 1.1 0 - 5.0 ng/ml [facility] CK-MB Index Not calculated, 0 - 2.5 [facility] normal MB. Specimen Blood specimen (specimen) Performing Organization Address [facility]/ZIP Code Phon e Number [facility] [address] [place] [address] SERVICES [facility] [address] [place] [address] (ABNORMAL) GLUCOSE, GLUCOMETER (09/10/2009 21:03 EST) Glucose, 163 (H) 70 - 100 VAUGHN CHRISTY Fingerstick mg/dl LAB Canal Superintendent ID [id number] VAUGHN CHRISTY Test Performed by Nursing Services LAB Specimen Performing Organization Address [facility]/ZIP [facility] Phon e Number [facility] [address] [place] [address] SERVICES [facility] [address] [place] [address] (ABNORMAL) GLUCOSE, GLUCOMETER (09/10/2009 17:16 EST) Glucose, 114 (H) 70 - 100 VAUGHN CHRISTY Fingerstick mg/dl LAB Canal Superintendent ID [id number] VAUGHN CHRISTY Test Performed by Nursing Services LAB Specimen Performing Organization Address [facility]/ZIP Code Phon e Number [facility] [address] [place] [address] SERVICES [facility] [address] [place] [address] CK MB WITH TOTAL CK (09/10/2009 15:27 EST) Pathologist Sig nature CK 94 0 - 250 U/L [facility] MB 1.1 0 - 5.0 ng/ml [facility] CK-MB Index Not calculated, 0 - 2.5 [facility] LAB normal MB. Specimen Blood specimen (specimen) Performing Organization Address [facility]/ZIP Code Phon e Number [facility] [address] [place] [address] SERVICES [facility] [address] [place] [address] (ABNORMAL) GLUCOSE, GLUCOMETER (09/10/2009 11:01 EST) Glucose, 122 (H) 70 - 100 VAUGHN CHRISTY Fingerstick mg/dl LAB Canal Superintendent [place] [id number] VAUGHN CHRISTY Test Performed by Nursing Services LAB Specimen Performing Organization Address City/State/ZIP Code Phon e Number [facility] [address] [place] [address] SERVICES JOH[facility]ARR[facility] [address] [place] [address] LEFT HEART CATH (09/10/2009 8:33 EST) Specimen Impressions CARDIOLOGY - 09/13/2009 15:26 EST ?[facility] ? [address] ?? [place], [place] [address] ? [phone] ?Fax: ?? [email or web address] ?Final Interventional Card iovascular Catheterization Report ?- -- SUMMARY OF RESULTS --- > The culprit artery was the mid LAD. P rior to PCI there was 60% stenosis in the culprit artery. The FFR ratio was 0. 69. > The culprit artery was the proximal LA D. Prior to PCI there was 60% stenosis in the culprit artery. The FFR ratio was 0.69. > Following PCI as described in the proc edure section, there was 0% residual stenosis and normal flow in the mid LAD. > Following PCI as described in the proc edure section, there was 0% residual stenosis and normal flow in the proximal LAD. > Interventional cardiac catheterization was performed without any significant complications. ? --- PLAN --- >Aspirin is recommended indefinitely and should not be stopped without consultation with a brush and broom clipper. Clopid ogrel (plavix) is recommended for a minimum of 12 months after the drug elut ing stent procedure. ? --- PATIENT PRESENTATION --- The patient is a 53 year old male. ??The primary indication for PCI was PCI for high risk Non-STEMI or unstable angina. Additional indications include: unstable angina. The patient has the following Comorbidit ies/Risk Factors: ??Dyslipidemia, Family History of Premature CAD, Hypert ension, Prior [place], Prior PCI. Diabetes Oral. : 1955 ?Sex: male ?Heig ht: 175.3cm ?Weight: 108kg ?BSA: 2.22 Allergies: ??NKA Pre-Seed And Fertilizer Specialist Values: ??HCT: 42.9 ?Pl atelets: 208.0 ?Creatinine:.8 ? --- PROCEDURE --- INTERVENTIONAL CARDIAC PROCEDURE PCI is indicated for this significant AC C/AHA class B1 lesion in the ??proximal LAD vessel. PCI is indicated for this significant AC C/AHA class B1 lesion in the ??mid LAD vessel. A 6F FL4 guide catheter was chosen for t he intervention . ??This catheter gave good engagement in the ostium of the LM. We then inflated a 2.0 mm diameter of ap proximately 15 mm length Pisgah balloon in the ??mid and proximal LAD X 2. The m aximal inflation pressure was 8-10 cale. We were unable to advance a Taxus Atom 2 .25/28 mm stent into the mid LAD over the Radi wire. A 0.014 inch BMW wire was used as a budd y wire. We were still unable to advance the Taxu s 2.25/28 mm stent into the mid LAD. We then inflated a 2.75 mm diameter of a pproximately 18 mm length Promus drug- eluting stent in the ??proximal LAD. ?? The maximal inflation pressure was 12-16 cale. ??The stent was successfully deploy ed. We were still unable to advance the Taxu s 2.25/28 mm stent into the mid LAD. A 0.014 inch Grand Slam wire was used as a nataly wire. We were still unable to advance the Taxu s 2.25/28 mm stent into the mid LAD. We then inflated a 2.5 mm diameter of ap proximately 20 mm length Voyager NC balloon in the ??mid LAD X 2.The maximal inflation pressure was 10-12 cale. We then inflated a 2.25 mm diameter of a pproximately 28 mm length TAXUS drug- eluting stent in the ??mid LAD. ?? The m aximal inflation pressure was 12-16 cale. We then inflated a 2.0 mm diameter of ap proximately 18 mm length Mini Vision stent in the ??distal LAD. ?? The harman l inflation pressure was 10-12 cale. ??The stent was successfully deployed. We then inflated a 2.25 mm diameter of a pproximately 12 mm length Quantum [place] balloon in the ??distal LAD. Th e maximal inflation pressure was 12-16 cale. The left common femoral artery was merry l in size and had no significant angiographic lesions. The femoral artery sheath was placed wit hin the common femoral artery. The Access location was: ?? > Right Femo ral Artery The Largest Arterial Sheath/Cath placed was ??6F The Hemostasis method used was: ? Starclose V[employer] Paulina Sys SELECTED MEDICATION ADMINISTERED DURING THE PROCEDURE: ??FENTANYL, HEPARIN DRIP, VERSED ? (Please see PhysioLog report for complete list of medications used.) Referring Physician: CAROL HAYES,HARDEEP Andino Referring Physician 2: LUZ HAYES,GRACE Payton Referring Physician 3: JOAQUÍN CARPENTER MD Interventional Attending: Lisa Medina MD Interventional Fellow: Burke Brooks MD As the attending, supervising cardiologi , I was present for the entire procedure. Signature date/time: 09/13/2009 15:28:19 ? Narrative CARDIOLOGY - 09/13/2009 15:26 EST ?[facility] ? [address] [facility] ?? [place] [address] ? [phone] ?Fax: ?? [email or web address] ?Final Diagnostic Cardi ovascular Catheterization Report ?- -- SUMMARY OF RESULTS --- > The patient has flow limiting disease in the LAD. ? --- PLAN --- > After careful review of the diagnostic images and findings, PCI is indicated urgently based upon the indications, ris k factors and anatomy described above. ? --- PATIENT PRESENTATION --- The patient is a 53 year old male with t he following indications: ??unstable angina . The patient has the following Comorbidit ies/Risk Factors: ??Dyslipidemia, Family History of Premature CAD, Hypert ension, Prior [place], Prior PCI. Diabetes Oral. : 1955 ?Sex: male ?Heig ht: 175.3cm ?Weight: 108kg ?BSA: 2.22 Allergies: ??NKA Pre-Seed And Fertilizer Specialist Values: ??HCT: 42.9 ?Pl atelets: 208.0 ?Creatinine:.8 ? --- PROCEDURE --- DIAGNOSTIC CARDIAC PROCEDURE Under local anesthesia, the left femoral artery was accessed with a 6F sheath using modified Seldinger technique. ??A 6F JL4 catheter was introduced and positioned in the ascending aorta. Selective coronary arteriography was the n performed using a 6F JL4 catheter to engage the left coronary artery. Via a 6F guide, an 0.014 inch RADI press ure wire was placed in the distal LAD. IV adenosine was infused achieving maxim al hyperemia and the fractional flow reserve was assessed. The Access location was: ?? > Right Femo ral Artery The Largest Arterial Sheath/Cath placed was ??6F The Hemostasis method used was: ? Starclose Vascular Paulina Sys SELECTED MEDICATION ADMINISTERED DURING THE PROCEDURE: ??FENTANYL, HEPARIN DRIP, VERSED ? (Please see PhysioLog report for complete list of medications used.) ?--- RESULTS --- HEMODYNAMICS ??Pressures: ?Site ?Systolic ??Harvey to ??Mean ?lic ?Ao ?111 ? 7 1 ?88 LEFT VENTRICULOGRAPHY Ventriculography was not performed david g the procedure. FEMORAL ANGIOGRAPHIC FINDINGS The left common femoral artery was merry l in size and had no significant angiographic lesions. The femoral artery sheath was placed wit hin the common femoral artery. CORONARY ANGIOGRAPHIC FINDINGS Left Anterior Descending Artery: Fractio n flow reserve 0.69 after IC adenosine Referring Physician: CAROL HAYES,HARDEEP Andino Referring Physician 2: LUZ HAYES,GRACE Payton Referring Physician 3: JOAQUÍN CARPENTER MD Diagnostic Attending: Germaine HAYES, José Miguel Diagnostic Fellow: Avtar HAYES, Robinson As the attending, supervising cardiologi st I was present for the entire procedure. Signature date/time: 09/13/2009 15:27:03 Procedure Note José Miguel Medina Jr., MD - 04/12/2010 [facility] [address] [place] [address] [phone] [email or web address] Final Diagnostic Cardiovascular Cathete rization Report --- SUMMARY OF RESULTS --- > The patient has flow limiting disease in the LAD. --- PLAN --- > After careful review of the diagnostic images and findings, PCI is indicated urgently based upon the indications, ris k factors and anatomy described above. --- PATIENT PRESENTATION --- The patient is a 53 year old male with t he following indications: unstable angina . The patient has the following Comorbidit ies/Risk Factors: Dyslipidemia, Family History of Premature CAD, Hypert ension, Prior [place], Prior PCI. Diabetes Oral. : 1955 Sex: male Height: 175.3c m Weight: 108kg BSA: 2.22 Allergies: NKA Pre-Seed And Fertilizer Specialist Values: HCT: 42.9 Platelets : 208.0 Creatinine:.8 --- PROCEDURE --- DIAGNOSTIC CARDIAC PROCEDURE Under local anesthesia, the left femoral artery was accessed with a 6F sheath using modified Seldinger technique. A 6F JL4 catheter was introduced and positioned in the ascending aorta. Selective coronary arteriography was the n performed using a 6F JL4 catheter to engage the left coronary artery. Via a 6F guide, an 0.014 inch RADI press ure wire was placed in the distal LAD. IV adenosine was infused achieving maxim al hyperemia and the fractional flow reserve was assessed. The Access location was: > Right Femoral Artery The Largest Arterial Sheath/Cath placed was 6F The Hemostasis method used was: Starclos e Vascular Paulina Sys SELECTED MEDICATION ADMINISTERED DURING THE PROCEDURE: FENTANYL, HEPARIN DRIP, VERSED (Please see PhysioLog report for comple te list of medications used.) --- RESULTS --- HEMODYNAMICS Pressures: Site Systolic Diasto Mean lic Ao 111 71 88 LEFT VENTRICULOGRAPHY Ventriculography was not performed durin g the procedure. FEMORAL ANGIOGRAPHIC FINDINGS The left common femoral artery was merry l in size and had no significant angiographic lesions. The femoral artery sheath was placed wit hin the common femoral artery. CORONARY ANGIOGRAPHIC FINDINGS Left Anterior Descending Artery: Sepideh gibbs flow reserve 0.69 after IC adenosine Referring Physician: CAROL HAYES,HARDEEP Andino Referring Physician 2: LUZ HAYES,GRACE Payton Referring Physician 3: JOAQUÍN CARPENTER MD Diagnostic Attending: Germaine HAYES, José Miguel Diagnostic Fellow: Robinson Nova MD As the attending, supervising cardiologi st I was present for the entire procedure. Signature date/time: 09/13/2009 15:27:03 IMPRESSION [facility] [address] [place] [address] [phone] [email or web address] Final Interventional Cardiovascular Cat heterization Report --- SUMMARY OF RESULTS --- > The culprit artery was the mid LAD. P rior to PCI there was 60% stenosis in the culprit artery. The FFR ratio was 0. 69. > The culprit artery was the proximal LA D. Prior to PCI there was 60% stenosis in the culprit artery. The FFR ratio was 0.69. > Following PCI as described in the proc edure section, there was 0% residual stenosis and normal flow in the mid LAD. > Following PCI as described in the proc edure section, there was 0% residual stenosis and normal flow in the proximal LAD. > Interventional cardiac catheterization was performed without any significant complications. --- PLAN --- >Aspirin is recommended indefinitely and should not be stopped without consultation with a brush and broom clipper. Clopid ogrel (plavix) is recommended for a minimum of 12 months after the drug elut ing stent procedure. --- PATIENT PRESENTATION --- The patient is a 53 year old male. The p rimary indication for PCI was PCI for high risk Non-STEMI or unstable angina. Additional indications include: unstable angina. The patient has the following Comorbidit ies/Risk Factors: Dyslipidemia, Family History of Premature CAD, Hypert ension, Prior [place], Prior PCI. Diabetes Oral. : 1955 Sex: male Height: 175.3c m Weight: 108kg BSA: 2.22 Allergies: NKA Pre-Seed And Fertilizer Specialist Values: HCT: 42.9 Platelets : 208.0 Creatinine:.8 --- PROCEDURE --- INTERVENTIONAL CARDIAC PROCEDURE PCI is indicated for this significant AC C/AHA class B1 lesion in the proximal LAD vessel. PCI is indicated for this significant AC C/AHA class B1 lesion in the mid LAD vessel. A 6F FL4 guide catheter was chosen for t he intervention . This catheter gave good engagement in the ostium of the LM. We then inflated a 2.0 mm diameter of ap proximately 15 mm length Pisgah balloon in the mid and proximal LAD X 2. The max imal inflation pressure was 8-10 cale. We were unable to advance a Taxus Atom 2 .25/28 mm stent into the mid LAD over the Radi wire. A 0.014 inch BMW wire was used as a budd y wire. We were still unable to advance the Taxu s 2.25/28 mm stent into the mid LAD. We then inflated a 2.75 mm diameter of a pproximately 18 mm length Promus drug- eluting stent in the proximal LAD. The m aximal inflation pressure was 12-16 cale. The stent was successfully deployed . We were still unable to advance the Taxu s 2.25/28 mm stent into the mid LAD. A 0.014 inch Grand Slam wire was used as a nataly wire. We were still unable to advance the Taxu s 2.25/28 mm stent into the mid LAD. We then inflated a 2.5 mm diameter of ap proximately 20 mm length Voyager NC balloon in the mid LAD X 2.The maximal i nflation pressure was 10-12 cale. We then inflated a 2.25 mm diameter of a pproximately 28 mm length TAXUS drug- eluting stent in the mid LAD. The harman l inflation pressure was 12-16 cale. We then inflated a 2.0 mm diameter of ap proximately 18 mm length Mini Vision stent in the distal LAD. The maximal inf lation pressure was 10-12 cale. The stent was successfully deployed. We then inflated a 2.25 mm diameter of a pproximately 12 mm length Quantum [place] balloon in the distal LAD. The maximal inflation pressure was 12-16 cale. The left common femoral artery was merry l in size and had no significant angiographic lesions. The femoral artery sheath was placed wit hin the common femoral artery. The Access location was: > Right Femoral Artery The Largest Arterial Sheath/Cath placed was 6F The Hemostasis method used was: Starclos e Vascular Paulina Sys SELECTED MEDICATION ADMINISTERED DURING THE PROCEDURE: FENTANYL, HEPARIN DRIP, VERSED (Please see PhysioLog report for comple te list of medications used.) Referring Physician: CAROL HAYES,HARDEEP Andino Referring Physician 2: LUZ HAYES,GRACE Payton Referring Physician 3: JOAQUÍN CARPENTER MD Interventional Attending: Lisa Medina MD Interventional Fellow: Cecilia HAYES, Burke As the attending, supervising cardiologi st I was present for the entire procedure. Signature date/time: 09/13/2009 15:28:19 Performing Organization Address [facility]/ZIP [facility] [place] Phon e Number [facility] (ABNORMAL) GLUCOSE, GLUCOMETER (09/10/2009 7:21 EST) Glucose, 132 (H) 70 - 100 [facility] Fingerstick mg/dl LAB Canal Superintendent [place] [id number] [facility] Test Performed by Nursing Services LAB Specimen Performing Organization Address [facility] Phon e Number [facility] [address] [place] [address] SERVICES [facility] [address] [place] [address] CREATININE (09/10/2009 4:08 EST) Pathologist Sig nature Creatinine 0.80 0.7 - 1.5 mg/dl [facility] GFR, Calculated >60 ml/min/1.73m2 [facility] Specimen Blood specimen (specimen) Performing Organization Address [facility] Phon e Number [facility] [address] [place] [phone] SERVICES [facility] [address] [place] [address] BUN (09/10/2009 4:08 EST) Pathologist Sig nature BUN 11 10 - 26 mg/dl [facility] Specimen Blood specimen (specimen) Performing Organization Address [facility] Phon e Number [facility] [address] [place] [address] SERVICES [facility] [address] [place] [phone] ELECTROLYTES (09/10/2009 4:08 EST) Pathologist Sig nature Sodium 136 136 - 145 mEq/L [facility] Potassium 4.0 3.5 - 5.0 mEq/L [facility] Chloride 100 96 - 110 mEq/L [facility] CO2 28 24 - 32 mEq/L [facility] Specimen Blood specimen (specimen) Performing Organization Address [facility] Phon e Number [facility] [address] [place] [address] SERVICES [facility] [address] [place] [address] HEMAGRAM (09/10/2009 4:08 EST) Pathologist Sig nature WBC 6.95 4.0 - 10.4 K/cmm [facility] RBC 4.94 4.36 - 5.78 M/cmm [facility] Hemoglobin 15.0 13.8 - 17.3 gm/dl [facility] HCT 42.9 39.5 - 50.2 % [facility] MCV 87 81 - 95 fl [facility] MCH 30.3 27.6 - 33.0 pg [facility] MCHC 34.9 32.8 - 36.4 gm/dl [facility] PLT 208 141 - 320 K/cmm [facility] RDW-CV 13.2 11.8 - 14.1 % [facility] Specimen Blood specimen (specimen) Performing Organization Address [facility]/ZIP [facility] [place] Phon e Number [facility] [address] [place] [address] SERVICES [facility] [address] [place] [address] (ABNORMAL) PTT (09/10/2009 4:08 EST) Pathologist Sig nature PTT 75 (H)Comment: 20 - 35 secs [facility] Therapeutic Heparin range: 60-100 seconds Specimen Blood specimen (specimen) Performing Organization Address [facility]/ZIP Code Phon e Number [facility] [address] [place] [address] SERVICES [facility] [address] [place] [address] HEMOGLOBIN A1C (09/10/2009 4:08 EST) Hemoglobin A1C 6.8 % [facility] Comment: Reference Range: <6% Normal Range ADA guidelines: The A1c goal for non adults in general is <7% The A1c goal for selected individual patients is as close to normal (<6%) as possible without significant hypoglycemia. Est Avg Glucose 148 mg/dl [facility] Comment: eAG represents the A1c result expressed as average glucose in mg/dl. Specimen Blood specimen (specimen) Performing Organization Address [facility] Phon e Number [facility] [address] [place] [address] SERVICES [facility] [address] [place] [address] TROPONIN I (09/10/2009 4:08 EST) Troponin I pre 0.07 <0.81 ng/ml [facility] 2011 Comment: Reference Range: Normal: ??Less than 0.05 Indeterminate: ??0.05-0.80 Positive: ??Greater than 0.80 Specimen Blood specimen (specimen) Performing Organization Address [facility] Phon e Number [facility] [address] [place] [address] SERVICES [facility] [address] [place] [address] CK MB WITH TOTAL CK (09/10/2009 4:08 EST) Pathologist Sig nature CK 108 0 - 250 U/L [facility] MB 1.2 0 - 5.0 ng/ml [facility] CK-MB Index Not calculated, 0 - 2.5 [facility] normal MB. Specimen Blood specimen (specimen) Performing Organization Address [facility] Phon e Number [facility] [address] [place] [address] SERVICES [facility] [address] [place] [address] TROPONIN I (09/09/2009 21:13 EST) Troponin I pre 0.07 <0.81 ng/ml [facility] 2011 Comment: Reference Range: Normal: ??Less than 0.05 Indeterminate: ??0.05-0.80 Positive: ??Greater than 0.80 Specimen Blood specimen (specimen) Performing Organization Address [facility] Phon e Number [facility] [address] [place] [address] SERVICES [facility] [address] [place] [address] CK MB WITH TOTAL CK (09/09/2009 21:13 EST) Pathologist Sig nature CK 86 0 - 250 U/L [facility] MB 0.9 0 - 5.0 ng/ml [facility] CK-MB Index Not calculated, 0 - 2.5 [facility] normal MB. Specimen Blood specimen (specimen) Performing Organization Address [facility] Phon e Number [facility] [address] [place] [address] SERVICES [facility] [address] [place] [address] (ABNORMAL) GLUCOSE, GLUCOMETER (09/09/2009 20:30 EST) Glucose, 227 (H) 70 - 100 [facility] Fingerstick mg/dl LAB [address] ID [id number] JOHANA CHRISTY Test Performed by Nursing Services LAB Specimen Performing Organization Address [facility] Phon e Number [facility] [address] [place] [address] SERVICES [facility] [address] [place] [address] ELEVATED GLUCOSE (09/09/2009 19:28 EST) Pathologist Sig nature Elevated Glucose Screening glucose [facility] greater than 180 mg/dl. Please order follow up hemoglobin A1c. Specimen Performing Organization Address [facility] Phon e Number [facility] [address] [place] [address] SERVICES [facility] [address] [place] [address] HOLD BLUE TOP (09/09/2009 19:28 EST) Pathologist Sig nature Hold Blue Top Sample for [facility] coagulation will be discarded after 4 hours Specimen Performing Organization Address [facility] Phon e Number [facility] [address] [place] [address] SERVICES [facility] [address] [place] [address] PTT (09/09/2009 19:28 EST) Pathologist Sig nature PTT Duplicate Test 20 - 35 secs [facility] Request Specimen Blood specimen (specimen) Performing Organization Address [facility] Phon e Number [facility] [address] [place] [address] SERVICES [facility] [address] [place] [address] (ABNORMAL) SCREENING GLUCOSE (09/09/2009 19:28 EST) Pathologist Sig nature Glucose, Screening 241 (H) 70 - 100 mg/dl [facility] Specimen Blood specimen (specimen) Performing Organization Address [facility] Phon e Number [facility] [address] [place] [address] SERVICES [facility] [address] [place] [address] MAGNESIUM (09/09/2009 19:28 EST) Pathologist Sig nature Magnesium 1.8 1.7 - 2.8 mg/dl [facility] Specimen Blood specimen (specimen) Performing Organization Address [facility] Phon e Number [facility] [address] [place] [address] SERVICES [facility] [address] [place] [address] CREATININE (09/09/2009 19:28 EST) Pathologist Sig nature Creatinine 0.80 0.7 - 1.5 mg/dl [facility] GFR, Calculated >60 ml/min/1.73m2 [facility] Specimen Blood specimen (specimen) Performing Organization Address [facility] Phon e Number [facility] [address] [place] [address] SERVICES [facility] [address] [place] [address] BUN (09/09/2009 19:28 EST) Pathologist Sig nature BUN 11 10 - 26 mg/dl [facility] Specimen Blood specimen (specimen) Performing Organization Address [facility] Phon e Number [facility] [address] [place] [address] SERVICES [facility] [address] [place] [address] (ABNORMAL) ELECTROLYTES (09/09/2009 19:28 EST) Pathologist Sig nature Sodium 136 136 - 145 mEq/L [facility] Potassium 4.1 3.5 - 5.0 mEq/L [facility] Chloride 100 96 - 110 mEq/L [facility] CO2 23 (L) 24 - 32 mEq/L [facility] Specimen Blood specimen (specimen) Performing Organization Address [facility] Phon e Number [facility] [address] [place] [address] SERVICES [facility] [address] [place] [address] PTT (09/09/2009 19:28 EST) Pathologist Sig nature PTT 35Comment: 20 - 35 secs [facility] Therapeutic Heparin range: 60-100 seconds Specimen Blood specimen (specimen) Performing Organization Address [facility]/ZIP [facility] [place] Phon e Number [facility] [address] [place] [address] SERVICES [facility] [address] [place] [address] PROTIME (09/09/2009 19:28 EST) Pro Time 13.8Comment: Note new 12.2 - 15.5 [facility] prothrombin time secs reference range effective 09 I.N.R. 1.0 0.9 - 1.1 [facility] Comment: Ratio Moderate Intensity Coumadin INR = 2.0-3.0 Adjustments in anticoagulant therapy dose should be based upon the INR and NOT the Pro Time. Specimen Blood specimen (specimen) Performing Organization Address [facility] Phon e Number [facility] [address] [place] [address] SERVICES [facility] [address] [place] [address] HEMAGRAM (09/09/2009 19:28 EST) Pathologist Sig nature WBC 8.52 4.0 - 10.4 K/cmm [facility] RBC 4.88 4.36 - 5.78 M/cmm [facility] Hemoglobin 14.7 13.8 - 17.3 gm/dl [facility] HCT 42.6 39.5 - 50.2 % [facility] MCV 87 81 - 95 fl [facility] MCH 30.1 27.6 - 33.0 pg [facility] MCHC 34.4 32.8 - 36.4 gm/dl [facility] PLT 225 141 - 320 K/cmm [facility] RDW-CV 13.3 11.8 - 14.1 % [facility] Specimen Blood specimen (specimen) Performing Organization Address [facility]/ZIP [facility] [place] Phon e Number [facility] [address] [place] [address] SERVICES [facility] [address] [place] [address] (ABNORMAL) GLUCOSE, GLUCOMETER (09/09/2009 18:43 EST) Pathologist [facility] Glucose, 108 (H) 70 - 100 [facility] Fingerstick mg/dl LAB [address] Superintendent ID [id number] [facility] Test Performed by Nursing Services LAB Specimen Performing Organization Address City/State/ZIP Code Phon e Number [facility] [address] [place] [address] SERVICES [facility] [address] [place] [address] documented in this encounter Visit Diagnoses Diagnosis CAD (coronary artery disease) Coronary atherosclerosis of unspecified type of vessel, [place] or graft Diabetes mellitus (HCC) Type II or unspecified type diabetes chantelle litus without mention of complication, not stated as uncontrolled documented in this encounter Administered Medications Inactive Administered Medications - up to 3 most recent administrations Medication Order MAR Action Action Date Dose Rate Site amitriptyline (ELAVIL) tablet 20 mg Given 09/10/2009 21:00 EST 20 mg 20 mg, oral, AT BEDTIME, First dose on Thu09/09/09 at 2100, Until Discontinued, Routine Given 09/09/2009 20:51 EST 20 mg amlodipine (NORVASC) tablet 10 mg Given 09/11/2009 9:00 EST 10 mg 10 mg, oral, DAILY, First dose (after last modification) on Thu09/11/09 at 0900, Until Discontinued, Routine amlodipine (NORVASC) tablet 5 mg Given 09/10/2009 7:22 EST mg 5 mg, oral, DAILY, First dose on Thu09/10/09 at 0900, Until Discontinued, Routine amlodipine (NORVASC) tablet 5 mg Given 09/10/2009 12:20 EST 5 mg 5 mg, oral, NOW X1, 1 dose, On Thu09/10/09 at 1100, Routine aspirin tablet 325 mg Given 09/11/2009 9:00 EST 325 mg 325 mg, oral, DAILY, First dose on Thu09/10/09 at 0900, Until Discontinued, Routine Given 09/10/2009 7:46 EST 325 mg bacitracin zinc 500 unit/g ointment Given 09/11/2009 9:00 EST topical (top), DAILY, First dose on Thu09/09/09 at 1900, Until Discontinued Given 09/10/2009 11:43 EST Given 09/09/2009 19:00 EST clopidogrel (PLAVIX) tablet 75 mg Given 09/10/2009 7:45 EST 75 mg 75 mg, oral, DAILY, First dose on Thu09/10/09 at 0900, Until Discontinued, Routine heparin in 1/2 NS 25,000 unit/250 mL inf usion 1 dose, Starting on Thu09/09/09 at 1738, Until 08/21 at 1858 heparin in 07/21 NS Rate Documented 09/10/2009 4:51 EST 16 Units/kg/hr 13.7 mL/hr 25,000 unit/250 mL infusion 16 Units/kg/hr ? 85.6 kg Adjusted weight (rounded to 13.7 mL/hr), intravenous, at 13.7 mL/hr, CONTINUOUS, Starting on Thu09/09/09 at 1915, Until Thu09/10/09 at 1022, Routine Rate Change 09/09/2009 21:19 EST 16 Units/kg/hr 13.7 mL/hr Given 09/09/2009 18:58 EST heparin injection 6,000 Units Given 09/09/2009 21:20 EST 6,000 Units 6,000 Units (70 Units/kg ? 85.6 kg Adjusted weight), intravenous, PRN, Starting on Thu09/09/09 at 1815, Until Thu09/10/09 at 1022, Other, Routine lisinopril (PRINIVIL, ZESTRIL) tablet 5 mg Given 09/11/2009 9:00 EST 5 mg 5 mg, oral, DAILY, First dose on Thu09/10/09 at 0900, Until Discontinued, Routine Given 09/10/2009 7:47 EST 5 mg metoprolol XL (TOPROL-XL) tablet 150 mg Given 09/11/2009 9:00 EST 150 mg 150 mg, oral, DAILY, First dose on Thu09/10/09 at 0900, Until Discontinued, Routine Given 09/10/2009 7:48 EST 150 mg Prasugrel (EFFIENT) tablet Tab 10 mg Given 09/11/2009 9:00 EST 10 mg 10 mg, oral, DAILY, First dose on Thu09/11/09 at 0900, Until Discontinued, Routine simvastatin (ZOCOR) tablet 80 mg Given 09/10/2009 21:00 EST 80 mg 80 mg, oral, AT BEDTIME, First dose on Thu09/09/09 at 2100, Until Discontinued, Routine Given 09/09/2009 20:51 EST 80 mg sodium chloride 0.9 % (NS) infusion New Bag 09/10/2009 10:45 EST 75 mL/hr at 75 mL/hr, intravenous, CONTINUOUS, Starting on Thu09/10/09 at 1045, Until Thu09/11/09 at 1455, Routine sodium chloride 0.9 % flush 3 mL Given 09/11/2009 8:00 EST 3 mL 3 mL, intravenous, EVERY 8 HOURS, First dose on Thu09/09/09 at 1845, Until Discontinued, Routine Given 09/11/2009 0:00 EST 3 mL Given 09/10/2009 17:12 EST 3 mL documented in this encounter Discontinued Medications Medication Sig Discontinue Reason Start Date End Date metformin Take by mouth 2 times daily with meals. Restart Metformin Thu09/07/2009 09/10/2009 (GLUCOPHAGE) 1,000 mg Take as previously prescribe d Metformin 1000 mg in the morning and tabletIndications: Metformin 500 mg each evenin g, Indications: TYPE 2 DIABETES MELLITUS type 2 diabetes mellitus clopidogrel (PLAVIX) Take 1 Tab by mouth daily. P lavix 75 mg daily uninterrupted for a minimum of one year 09/07/2009 09/10/2009 75 mg tablet Do not stop or interrupt thi s medication withour discussing with brush and broom clipper amlodipine (NORVASC) Take 1 Tab by mouth 09/07/2009 09/11/2009 5 mg tablet daily. Increased dose of amlodipine documented as of this encounter Active and Recently Administered Medications Times are shown in EST. Scheduled Medication Order 09/09/2009 09/10/2009 09/11/2009 amitriptyline (ELAVIL) tablet 20 mg (CANCELED) 2050 (Luis caballero - Provider: Leonora Kent) 2100 (Given - Provider: Cheli Kulkarni RN) 20 mg, Oral, AT BEDTIME, First dose on Thu09/09/09 at 2100, Until Discontinued amlodipine (NORVASC) tablet 10 mg 0900 (Given - Provider: Felisa Holland) 10 mg, Oral, DAILY, First dose on Thu09/11/09 at 0900, Until Dis continued amlodipine (NORVASC) tablet 5 mg (CANCELED) 721 (Given - Provider: Israel Roach, JANNY) 5 mg, Oral, DAILY, First dose on Thu09/10/09 at 0900, Until Disc ontinued amlodipine (NORVASC) tablet 5 mg (COMPLETED) 1220 (Given - Provider: Israel Roach RN) 5 mg, Oral, NOW X1, 1 dose, Thu09/10/09 at 1100 aspirin tablet 325 mg (CANCELED) 0746 (Luis prettyen - Provider: Israel Roach RN)0900 (Canceled Entry - Provider: Israel Roach RN) 0900 (Given - Provider: Felisa Holland) 325 mg, Oral, DAILY, First dose on Thu09/10/09 at 0900, Until Di scontinued bacitracin zinc 500 unit/g ointment (CANCELED) 1900 (G iven - Provider: Carlos Reyez) 1143 (Given - Provider: Israel Roach RN) 0900 (Gi augustus - Provider: Felisa Holland) Topical, DAILY, First dose on Thu09/09/09 at 1900, Until Discont inued clopidogrel (PLAVIX) tablet 75 mg (CANCELED) 0745 (Given - Provider: Israel Roach RN)0900 (Canceled Entry - Provider: Israel Roach RN) 75 mg, Oral, DAILY, First dose on Thu09/10/09 at 0900, Until Dis continued lisinopril (PRINIVIL, ZESTRIL) tablet 5 mg (CANCELED) 0747 (Given - Provider: Israel Roach RN)09 (Canceled Entry - Provider: Israel Roach RN) 0900 (Given - Provider: Felisa Holland) 5 mg, Oral, DAILY, First dose on Thu09/10/09 at 0900, Until Disc ontinued metoprolol XL (TOPROL-XL) tablet 150 mg (CANCELED) 0748 (Given - Provider: Israel Roach RN)0900 (Canceled Entry - Provider: Israel Roach RN) 09 (Given - Provider: Felisa Holland) 150 mg, Oral, DAILY, First dose on Thu09/10/09 at 0900, Until Di scontinued Prasugrel (EFFIENT) tablet Tab 10 mg 899 (Given - Provider: Felisa Holland) 10 mg, Oral, DAILY, First dose on Thu09/11/09 at 0900, Until Dis continued simvastatin (ZOCOR) tablet 80 mg (CANCELED) 2050 (Give n - Provider: Leonora Kent) 2100 (Given - Provider: Cheli Kulkarni, JANNY) 80 mg, Oral, AT BEDTIME, First dose on 09/09/09 at 2100, Until Discontinued sodium chloride 0.9 % flush 3 mL (CANCELED) 1845 (Give n - Provider: Carlos Reyez) 0000 (Given - Provider: Leonora Live)0722 (Given - Provider: Israel Roach RN)1712 (Given - Provider: Israel Roach RN) 0000 (Given - Provider: Cheli Kulkarni RN)0800 (Given - Provider: Felisa Holland) 3 mL, Intravenous, EVERY 8 HOURS, First dose on 09/09/09 at 1845, Until Discontinued Continuous Medication Order 09/09/2009 09/10/2009 09/11/2009 heparin in 07/21 NS 25,000 unit/250 mL infusion (CANCELE D) 1858 (Given - Provider: Carlos Reyez)2119 (Rate Change - Provider: Leonora Kent) 0451 (Rate Documented - Provider: Leonora Kent) 16 Units/kg/hr ? 85.6 kg (Adjusted weight) = 13.7 mL/hr, Intravenous, at 13.7 mL/hr, CONTINUOUS, Starting 09/09/09 at 1915, Until Discontinued sodium chloride 0.9 % (NS) infusion (CANCELED) 1045 (New Bag - Provider: Israel Roach RN)1900 (Not Given - Provider: Cheli Kulkarni RN - Reason: Patient/family refused) at 75 mL/hr, Intravenous, CONTINUOUS, St arting 09/10/09 at 1045, Until Discontinued PRN Medication Order 09/09/2009 09/10/2009 09/11/2009 heparin injection 6,000 Units (CANCELED) 2119 (Given - Provider: Leonora Kent) 70 Units/kg ? 85.6 kg (Adjusted weight) = 6,000 Units, Intravenous, PRN, Starting 09/09/09 at 1815, Until Discontinued documented in this encounter Orders Medications Ordered That Might Not Have Count Last Ord ered Date First Ordered Date Been Administered isosorbide mononitrate (IMDUR) CR tablet 1 010 60 mg acetaminophen (TYLENOL) tablet 650 mg 1 09/09/2009 dextrose 50 % solution 12.5 g 1 09/09/2009 glucagon (human recombinant) injection 1 1 010 mg heparin in 07/21 NS 25,000 unit/250 mL 2 09/09/2009 infusion heparin injection 3,000 Units 1 09/09/2009 insulin aspart (NOVOLOG FlexPen) injection 1 09/09 morphine injection 2-4 mg 1 09/09/2009 nitroGLYCERIN (NITROSTAT) SL tablet 0.4 mg 2 09/09 EKG Orders Without Results Count Last Ordered Date Fir st Ordered Date EKG 12-LEAD 3 09/11/2009 09/10/2009 Diet Count Last Ordered Date First Ordered Date DIET CONSISTENT CARBOHYDRATE 1 09/10/2009 Nursing Count Last Ordered Date First Ordered Date CARDIAC MONITORING 1 09/10/2009 ENCOURAGE FLUIDS 1 09/10/2009 NURSING COMMUNICATION 1 09/10/2009 ASSESS FALL RISK 2 09/09/2009 HEIGHT AND WEIGHT 1 09/09/2009 MEASURE WEIGHT 1 09/09/2009 Consult Count Last Ordered Date First Ordered Date CONSULT NUTRITION 1 09/10/2009 Admission Count Last Ordered Date First Ordered Date ADMIT TO INPATIENT 1 09/11/2009 NOTIFY PPS OF DISCHARGE COMPLETE 1 09/11/2009 ADMIT TO OBSERVATION 1 09/09/2009 Discharge Count Last Ordered Date First Ordered Date DISCHARGE PATIENT 1 09/11/2009 documented in this encounter Care Teams Derrick Man Relationship Specialty Start Date End Date Joaquín Carpenter MD PCP - General 09/04/09 10/26/12 [address] [place] [address] documented as of this encounter
--- OUTSIDE RECORDS SUMMARY | 2022-02-21 01:13 | XMS_ITS | Encounter Summary ---
:1955 Author Organization [facility] Address [address] [place] [address] Care Team Providers Name Role Phone Joaquín Carpenter MD Primary Care Provider Gregoria Nicholas MD Primary Care Provider Encounter Details Date Type Department Care Team Description 08/30/2012 Orders Only [facility] Aury Galloway rd, MD Cardiology - [facility] [address] [facility] [address] [place], [place] [address] [place], [place] [phone] (Wo rk) Social History Tobacco Use [...] and Lidofsky, Shaq D, Hepatology [address] [facility] [place] [address] (Wo rk) documented as of this encounter Procedures Procedure Name Priority Date/Time Associated Diagnosis Comme nts LIPID RX PROFILE (BUN, Routine 06/16/2012 Resul [...] on filedocumented in this encounter Care Teams Teletypesetter Operator Relationship Specialty Start Date End Date Joaquín Carpenter MD PCP - General 09/04/09 10/26/12 [address] [place] [address] Gregoria Nicholas MD PCP - General 10/27/12 09/12/18 [address] [place] [address] documented as of this encounter
--- OUTSIDE RECORDS SUMMARY | 2022-02-21 01:13 | XMS_ITS | Encounter Summary ---
:1955 Author Organization [facility] rs Address [address] [place] [address] Support Name Relationship Address Phone ANA JOYNER Unavailable [address] [place] [address] LESTERMARY Unavailable [address] [place] [address] ANDREINA SULTANA Unavailable [address] [place] [address] WANDA BATISTA Unavailable [address] [place] [address] Insurance Providers: All historical and current Section [...] Number Vu CBA [facility] Jul 20 [id number] [phone] DANIEL BATISTA O PATIENT DEDUCTIBL SADIE 2009 206 R[address] [facility] EXPRESS PRESCRIPT Jul 20, RXBWEID [id number] [phone] SRINIVAS BATISTA PATIENT SCRIPTS ION 201722 557 RGE ([id number]) RESTAT PRESCRIPT CBA November 17, 2820 [id number] [phone] Luis BATISTA EO PATIENT ION BLUE 200922 2 RGE Selected Encounter This section includes the information on record at [place] for the Encounter. Date/Time Encounter Type Encounter Description Reason Provider Source Oct 15, 2021 12:00 Outpatient Encounter EVENT (HISTORICAL) AM [facility] Encounter Template Text not used by [facility] Plan of Treatment: Future Appointments (+ 6 months) and Future Tests (+/- 45 days) The Plan of Treatment section includes future care activities for the patient from all [place] treatmentfacilities. This section includes future appointments and future orders which are active, pending orscheduled.Future Appointments This section includes appointments that were scheduled to occur 6 months from the date of the Encounter, up to a maximum of 20 appointments. The data comes from all [place] treatment facilities. Appointment Date/Time Appointment Type Appointment Facili ty Name Nov 01, 2021 08:00 AM AMBULATORY - NONE [facility] Apr 11, 2022 10:15 AM AMBULATORY - NONE [facility] Apr 14, 2022 08:30 AM AMBULATORY - NONE Johan RAMOS PT OF [facility] Lab Results: +/- 30 days of the encounter This section includes the Chemistry and Hematology Lab Results on record with [place] for the patient. Radiology Reports and Pathology Reports are provided separately, in subsequent sections.Lab Results This section contains the Chemistry/Hematology Results that were resulted 30 days before or 30 daysafter the date of the Encounter. Date/Time Source Result Type Result - Unit Interpretation Reference Range Comment Oct 11, 2021 08:07 [facility] CBC (AUTO DIFF) Specimen T ype: BLOOD AM CLINIC No comment enter ed. Ordering Provid er: WARNER ORTIZ Report Released Date/Time: Aug 26, 2021 11:02 AM Reporting Lab: Johan ZUNIGA DEPT OF [facility] [address] [facility] [address] Performing Lab: Johan ZUNIGA [facility] OF [facility] [address] [facility] [address] WBC 7.2 4.00-10.60 RBC 5.17 4.23-5.75 HGB [...] 0.0-0.7 CBC COMPLETE DONE Oct 11, 2021 [facility] COMPREHENSIVE METABOLIC Speci men Type: PLASMA 08:07 AM CLINIC PANEL Comment: See EV AL Ordering Provid er: WARNER ORTIZ Report Released Date/Time: Aug 26, 2021 11:02 AM Reporting Lab: Johan ZUNIGA DEPT OF [address] [address] Performing Lab: Johan ZUNIGA DEPT OF [address] [address] SODIUM 138 136-144 POTASSIUM 4.3 3.6-5.1 CHLORIDE 101 98-107 CARBON DIOXIDE 28 22-32 ANION GAP 9 4-13 GLUCOSE 155 H 72-105 UREA NITROGEN 11 7-25 CREATININE 0.76 0.7-1.3 CALCIUM 9.9 8.6-10.4 TOTAL PROTEIN 7.5 6.0-8.2 ALBUMIN 4.3 3.5-5.0 ALKALINE PHOSPHATASE 82 35-104 AST 57 H 13-36 ALT 74 H 7-49 BILIRUBIN,TOTAL 0.7 0.2-1.3 eGFR (CKD-EPI 2020) >=90 See EVAL Oct 11, 2021 [facility] URINALYSIS, REFLEX C&S Specim en Type: URINE 08:07 AM CLINIC IF INDICATED No comment enter ed. Ordering Provid er: WARNER ORTIZ Report Released Date/Time: Aug 26, 2021 11:02 AM Reporting Lab: Johan ZUNIGA [facility] OF [address] [address] Performing Lab: Johan ZUNIGA DE[facility] OF [address] [address] URINE COLOR Yellow Yellow SPECIFIC GRAVITY 1.018 1.001-1.035 URINE PH 6 5.0-7.0 URINE RBC/HPF 1 0-3 CLARITY CLEAR CLEAR URINE BLOOD Negative Negative URINE LEUKOCYTE ESTERASE Negative Negat [place] URINE PROTEIN Negative Negative URINE GLUCOSE >=500 H Negative URINE KETONES Negative Negative URINE BILIRUBIN Negative Negative URINE NITRITES Negative Negative UROBILINOGEN (mg) Negative <=1.0 Oct 11, 2021 [facility] PROSTATIC SPECIFIC Specimen T ype: SERUM 08:07 AM CLINIC ANTIGEN Comment: FREE P SA NOT INDICATED IF TOTAL PSA IS <3.75 OR >10.5 ng/mL Ordering Provid er: WARNER ORTIZ Report Released Date/Time: Aug 26, 2021 11:02 AM Reporting Lab: Johan ZUNIGA [facility] OF [place] [phone] Performing Lab: Johan ZUNIGA [facility] [place] [phone] PROSTATIC SPECIFIC ANTIGEN 0.4 0.0 -4.0 Oct 11, 2021 08:07 [facility] TSH SCREEN PANEL Specimen Type: SERUM AM CLINIC Comment: FREE P SA NOT INDICATED IF TOTAL PSA IS <3.75 OR >10.5 ng/mL Ordering Provid er: WARNER ORTIZ Report Released Date/Time: Aug 26, 2021 11:02 AM Reporting Lab: Johan ZUNIGA [facility] OF [address] [address] Performing Lab: Johan ZUNIGA DEPT OF [address] [address] TSH SCREEN 1.54 0.46-3.59 Oct 11, 2021 [facility] LIPID PANEL A, Specimen Type : PLASMA 08:07 AM CLINIC non-fasting Comment: See EV AL Ordering Provid er: WARNER ORTIZ Report Released Date/Time: Aug 26, 2021 11:02 AM Reporting Lab: Johan ZUNIGA [facility] OF [address] [address] Performing Lab: Johan ZUNIGA DE[facility] OF [address] [address] CHOLESTEROL 154 HDL CHOLESTEROL 39 LDL CHOLESTEROL 94 TC/HDL CHOLESTEROL RATIO 3.9 Oct 11, 2021 08:07 AM [facility] CLINIC HGB A1C Specimen Type: BLOOD No comment enter ed. Ordering Provid er: WARNER ORTIZ Report Released Date/Time: Aug 26, 2021 11:02 AM Reporting Lab: Johan ZUNIGA DEPT [address] [address] Performing Lab: Johan ZUNIGA DEPT [address] [address] HGB A1C 7.3 H 4.2-6.2 Oct 11, 2021 08:07 [facility] VITAMIN B12 Specimen T ype: SERUM AM CLINIC No comment enter ed. Ordering Provid er: WARNER ORTIZ Report Released Date/Time: Aug 26, 2021 11:02 AM Reporting Lab: Johan ZUNIGA [facility] OF [address] [address] Performing Lab: Johan ZUNIGA DEPT OF [address] [address] VITAMIN B12 [phone] Vital Signs: All taken on the encounter date This section contains inpatient and outpatient Vital Signs collected on the date of the Encounter. Date/Time Temperature Pulse Blood Respiratory SP02 Pain Height Weight Dexter dy Source Pressure Rate Mass Index Oct 15, 97.6 F 79 112/68 16 /min 96 % 0 70.5 in 237.7 34 C.W. 2021 09:01 /min mm[Hg] lb EDGAR ZUNIGA [facility] Oct 15 237.7 34 C.W. 2021 08:49 lb [facility] Advance Directives: All historical and current Section Date Range: From patient's date of to the date document was created. This section includes ALL of a patient's completed or amended [place] Advance and Rescinded Directives. The entries below indicate that a directive exists for the patient, but an actual copy is not included with this document. The data comes from all [place] facilities. Date Advance Directives Provider Source November 23, 2017 ADVANCE DIRECTIVE JOI DEVRIES T [facility] Radiology Reports: +/- 30 days of the [...] the Encounter. The data comes from all [place] treatment facilities. Date/Time Radiology Report Provider Source Nov 01, 2021 07:12 GASTRIC EMPTYING SCAN: PEDRO WOLFF [facility] [place] [id number] -1955 [facility] Exm Date: NOV 01, 2021@07:12 Req Phys: WARNER ORTIZ Pat Loc: [facility] (Req'g Loc) Img Loc: [facility] Service: Unknown (Case [id number] COMPLETE)GASTRIC EMPTYING STUDY (NM Detailed) CPT:99063 Reason for Study: gastroparesis Radiopharmaceutical: 99MTC SULFUR COLLOID, 1 mC i Adm'd on NOV 01, 2021@07:55 by AUTUMN ARNETT (Case [id number] COMPLE TE)DIAG RADIOPHARM TC SULFUR COLLOID(NM Detailed) CPT:A9541 Radiopharmaceutical: 99MTC SULFUR COLLOID Adm'd on NOV 01, 2021@07:16 by ANICETO PÉREZ JR Clinical History: Report Status: Verified Date Reported: NOV 01, 2021 Date Verified: NOV 01, 2021 Senior Electronics Engineer E-Sig:/ES/PEDRO WOLFF MD Report: NUCLEAR MEDICINE GASTRIC EMPTYING CLINICAL INDICATION: 65-year-old male with conc nicolas for gastroparesis. PRIOR STUDY: None. CORRELATIVE: None. PROCEDURE: interventional radiology technologist romina ed the patient name, date [...] Interpreting Staff: PEDRO WOLFF MD, NUCLEAR MEDICINE ([facility]) /AMRIK
--- OUTSIDE RECORDS SUMMARY | 2022-02-21 01:13 | XMS_ITS | Encounter Summary ---
:1955 Author Organization [facility] Address [address] [place] [address] Care Team Providers Name Role Phone Joaquín Carpenter MD Primary Care Provider Reason for Visit Reason Onset Date Comments Other 04/10/2010 Returned Adrienne's c all Other 04/11/2010 returned adrienne's shannon all Encounter Details Date Type Department Care Team Description 04/10/2010 Telephone [facility] Broderick Galloway, Ot er (Returned Cardiology - Jenelle Deleon's call); Other [address] Jenelle Teixeira [address] (returned adrienne's So [place], [place] [address] [facility] [address] call) [phone] [place] [address] Social History Tobacco Use Types [...] this encounter Miscellaneous Notes Telephone Encounter - Adrienne Bauman - 04/11/2010 0919 EDT There was a script for albuterol here and making sure the patient didn't need it and patient stated that he didn't. Destroyed script. documented in this encounter Plan of Treatment Upcoming Encounters Date Type Specialty Care Team Description 09/29/2022 Office Visit Gastroenterology and Shaq Phan, Hepatology [address] [facility] [facility] [place] [address] (Wo rk) documented as of this encounter Visit Diagnoses Not on filedocumented in this encounter Care Teams Sausage Mixer Relationship Specialty Start Date End Date Joaquín Carpenter MD PCP - General 09/04/09 10/26/12 [address] [place] [address] documented as of this encounter
--- OUTSIDE RECORDS SUMMARY | 2022-02-21 01:14 | XMS_ITS ---
:1955 Author Organization Department [facility] rs Address [address] [place] [address] Support Name Relationship Address Phone ANA JOYNER Unavailable [address] [place] [address] LESTERMARY Unavailable [address] [place] [address] ANDREINA SULTANA Unavailable [address] [place] [address] WANDA BATISTA Unavailable [address] [place] [address] Insurance Providers: All historical and current Section [...] Number Vu CBA [facility] Jul 20 [id number] [phone] DANIEL BATISTA O PATIENT DEDUCTIBL SADIE 200922 206 RGE E HEALTH HDHP PLAN EXPRESS PRESCRIPT Jul 20, RXBWEID [id number] [phone] SRINIVAS BATISTA PATIENT SCRIPTS ION 201722 557 RGE ([id number]) RESTAT PRESCRIPT CBA November 17, 2820 [id number] [phone] Luis BATISTA EO PATIENT ION BLUE 200922 2 RGE Selected Encounter This section includes the information on record at [facility] for the Encounter. Date/Time Encounter Type Encounter Description Reason Provider Source Oct 23, 2021 01:44 Outpatient Encounter ADMIN PAT ACTIVTIES PM (MASCHRISTIANCT) IHE Encounter Template Text not used by VA Plan of Treatment: Future Appointments (+ 6 months) and Future Tests (+/- 45 days) The Plan of Treatment section includes future care activities for the patient from all [place] treatmentfacilities. This section includes future appointments and future orders which are active, pending orscheduled.Future Appointments This section includes appointments that were scheduled to occur 6 months from the date of the Encounter, up to a maximum of 20 appointments. The data comes from all AL treatment facilities. Appointment Date/Time Appointment Type Appointment Facili ty Name Nov 01, 2021 08:00 AM AMBULATORY - NONE [facility] Apr 11, 2022 10:15 AM AMBULATORY - NONE [facility] Apr 14, 2022 08:30 AM AMBULATORY - NONE Johan RAMOS PT OF [facility] Lab Results: +/- 30 days of the encounter This section includes the Chemistry and Hematology Lab Results on record with AL for the patient. Radiology Reports and Pathology Reports are provided separately, in subsequent sections.Lab Results This section contains the Chemistry/Hematology Results that were resulted 30 days before or 30 daysafter the date of the Encounter. Date/Time Source Result Type Result - Unit Interpretation Reference Range Comment Oct 11, 2021 08:07 [facility] CBC (AUTO DIFF) Specimen T ype: BLOOD AM CLINIC No comment enter ed. Ordering Provid er: WARNER ORTIZ Report Released Date/Time: Aug 26, 2021 11:02 AM Reporting Lab: Johan ZUNIGA [facility] [address] [facility] [id number] Performing Lab: Johan ZUNIGA [facility] [address] [facility] [address] WBC 7.2 4.00-10.60 RBC 5.17 4.23-5.75 HGB [...] 0.0-0.7 CBC COMPLETE DONE Oct 11, 2021 [facility] COMPREHENSIVE METABOLIC Speci men Type: PLASMA 08:07 AM CLINIC PANEL Comment: See EV AL Ordering Provid er: WARNER ORTIZ Report Released Date/Time: Aug 26, 2021 11:02 AM Reporting Lab: Johan ZUNIGA DE[facility] OF [address] [address] Performing Lab: Johan ZUNIGA [facility] OF [address] [phone] SODIUM 138 136-144 POTASSIUM 4.3 3.6-5.1 CHLORIDE 101 98-107 CARBON DIOXIDE 28 22-32 ANION GAP 9 4-13 GLUCOSE 155 H 72-105 UREA NITROGEN 11 7-25 CREATININE 0.76 0.7-1.3 CALCIUM 9.9 8.6-10.4 TOTAL PROTEIN 7.5 6.0-8.2 ALBUMIN 4.3 3.5-5.0 ALKALINE PHOSPHATASE 82 35-104 AST 57 H 13-36 ALT 74 H 7-49 BILIRUBIN,TOTAL 0.7 0.2-1.3 eGFR (CKD-EPI 2020) >=90 See EVAL Oct 11, 2021 [facility] URINALYSIS, REFLEX C&S Specim en Type: URINE 08:07 AM CLINIC IF INDICATED No comment enter ed. Ordering Provid er: WARNER ORTIZ Report Released Date/Time: Aug 26, 2021 11:02 AM Reporting Lab: Johan ZUNIGA [facility] [address] [address] Performing Lab: Johan ZUNIGA [facility] OF [address] [address] URINE COLOR Yellow Yellow SPECIFIC GRAVITY 1.018 1.001-1.035 URINE PH 6 5.0-7.0 URINE RBC/HPF 1 0-3 CLARITY CLEAR CLEAR URINE BLOOD Negative Negative URINE LEUKOCYTE ESTERASE Negative Negat [place] URINE PROTEIN Negative Negative URINE GLUCOSE >=500 H Negative URINE KETONES Negative Negative URINE BILIRUBIN Negative Negative URINE NITRITES Negative Negative UROBILINOGEN (mg) Negative <=1.0 Oct 11, 2021 [facility] PROSTATIC SPECIFIC Specimen T ype: SERUM 08:07 AM CLINIC ANTIGEN Comment: FREE P SA NOT INDICATED IF TOTAL PSA IS <3.75 OR >10.5 ng/mL Ordering Provid er: WARNER ORTIZ Report Released Date/Time: Aug 26, 2021 11:02 AM Reporting Lab: Johan ZUNIGA [facility] OF [place] [phone] Performing Lab: Johan ZUNIGA [facility] [place] [phone] PROSTATIC SPECIFIC ANTIGEN 0.4 0.0 -4.0 Oct 11, 2021 08:07 [facility] TSH SCREEN PANEL Specimen Type: SERUM AM CLINIC Comment: FREE P SA NOT INDICATED IF TOTAL PSA IS <3.75 OR >10.5 ng/mL Ordering Provid er: WARNER ORTIZ Report Released Date/Time: Aug 26, 2021 11:02 AM Reporting Lab: Johan ZUNIGA [facility] [address] [address] Performing Lab: Johan ZUNIGA [facility] OF [address] [address] TSH SCREEN 1.54 0.46-3.59 Oct 11, 2021 [facility] LIPID PANEL A, Specimen Type : PLASMA 08:07 AM CLINIC non-fasting Comment: See EV AL Ordering Provid er: WARNER ORTIZ Report Released Date/Time: Aug 26, 2021 11:02 AM Reporting Lab: Johan ZUNIGA [facility] [address] [address] Performing Lab: Johan ZUNIGA [facility] [address] [address] CHOLESTEROL 154 HDL CHOLESTEROL 39 LDL CHOLESTEROL 94 TC/HDL CHOLESTEROL RATIO 3.9 Oct 11, 2021 08:07 AM [facility]IC HGB A1C Specimen Type: BLOOD No comment enter ed. Ordering Provid er: WARNER ORTIZ Report Released Date/Time: Aug 26, 2021 11:02 AM Reporting Lab: Johan ZUNIGA [facility] [address] [address] Performing Lab: Johan ZUNIGA [facility] [address] [address] HGB A1C 7.3 H 4.2-6.2 Oct 11, 2021 08:07 [facility] VITAMIN B12 Specimen T ype: SERUM AM CLINIC No comment enter ed. Ordering Provid er: WARNER ORTIZ Report Released Date/Time: Aug 26, 2021 11:02 AM Reporting Lab: Johan ZUNIGA [facility] [address] [address] Performing Lab: Johan ZUNIGA [facility] OF [address] [address] VITAMIN B12 [phone] Social History: Smoking Status (Most current) and Tobacco Use (All prior to encounter date) This section includes the most current, and the historical, smoking and tobacco-related health factors from the AL facility where the Encounter took place.Current Smoking Status This section includes the most current smoking, or tobacco-related health factor, from the AL facility where the Encounter took place. Date/Time Current Smoking Status Comment Facility Jan 26, 2003 10:05 AM QUIT TOBACCO USE > 7 YEARS AGO GUERRERO MONTOYA [facility] Tobacco Use History This section includes a history of the smoking, or tobacco- related health factors, that were collected on or before the date of the Encounter. The data comes from the AL facility where the Encounter took place. Date/Time Smoking Status/Tobacco Use Comment [facility] November 29, 2002 01:00 PM HISTORY OF SMOKING GUERRERO TINEO [facility] Advance Directives: All historical and current Section Date Range: From patient's date of to the date document was created. This section includes ALL of a patient's completed or amended AL Advance and Rescinded Directives. The entries below indicate that a directive exists for the patient, but an actual copy is not included with this document. The data comes from all AL facilities. Date Advance Directives Provider Source November 23, 2017 ADVANCE DIRECTIVE JOI DEVRIES ONEAL T [facility] Radiology Reports: +/- 30 days of [...] the Encounter. The data comes from all [place] treatment facilities. Date/Time Radiology Report Provider Source Nov 01, 2021 07:12 GASTRIC EMPTYING SCAN: PEDRO WOLFF [facility] CLAUDIA BATISTA [id number] -1955 CLINIC Exm Date: NOV 01, 2021@07:12 Req Phys: WARNER ORTIZ Pat Loc: [facility] PACT 3 (Req'g Loc) Img Loc: [facility] NUC MED Service: Unknown (Case [id number] COMPLETE)GASTRIC EMPTYING STUDY (NM Detailed) CPT:41802 Reason for Study: gastroparesis Radiopharmaceutical: 99MTC SULFUR COLLOID, 1 mC i Adm'd on NOV 01, 2021@07:55 by AUTUMN ARNETT (Case [id number] COMPLE TE)DIAG RADIOPHARM TC SULFUR COLLOID(NM Detailed) CPT:A9541 Radiopharmaceutical: 99MTC SULFUR COLLOID Adm'd on NOV 01, 2021@07:16 by ANICETO PÉREZ JR Clinical History: Report Status: Verified Date Reported: NOV 01, 2021 Date Verified: NOV 01, 2021 Director Of Recruitment And Admissions E-Sig:/ES/PEDRO WOLFF MD Report: NUCLEAR MEDICINE GASTRIC EMPTYING CLINICAL INDICATION: 65-year-old male with conc nicolas for gastroparesis. PRIOR STUDY: None. CORRELATIVE: None. PROCEDURE: chief medical technologist romina ed the patient name, date [...] Interpreting Staff: PEDRO WOLFF MD, NUCLEAR MEDICINE ([facility]) /[facility] Encounter Notes: All associated encounter notes This section contains the clinical notes associated to the Encounter. Date/Time Encounter Note(s) Provider Source Oct 23, 2021 01:44 PM SUPERVISOR TOWER NOTE: BRANDI VALENCIA [facility] LOCAL TITLE: Traveling [place] Coordinator Note [facility] STANDARD TITLE: SUPERVISOR TOWER NOTE DATE OF NOTE: OCT 23, 2021@13:44 ENTRY DATE: OCT 23, 2021@13:45 AUTHOR: BRANDI VALENCIA EXP COSIGNER: URGENCY: STATUS: COMPLETED Received notification from [facility] [employer] that the has transferred care from [facility] (#[id number]) Confirmed with chart review. Relocation request APPROVED on [facility] [employer]. NOT approved for MPACT. Pl ease remove from panels AND cancel all future appointments. /es/ BRANDI VALENCIA RN TRAVELING COORDINATOR Signed: 10/23/2021 13:46 Receipt Acknowledged By: * AWAITING SIGNATURE * CANDE GR
--- OUTSIDE RECORDS SUMMARY | 2022-02-21 01:14 | XMS_ITS | Encounter Summary ---
:1955 Author Organization Department [facility] rs Address [address] [place] [address] Support Name Relationship Address Phone ANA JOYNER Unavailable [address] [place] [address] LESTERMARY Unavailable [address] [place] [address] ANDREINA SULTANA Unavailable [address] [place] [address] WANDA BATISTA Unavailable [address] [place] [address] Insurance Providers: All historical and current Section [...] Name to Policy Number Vu CBA [facility] Jul 20 [id number] [phone] DANIEL BATISTA O PATIENT DEDUCTIBL SADIE 2009 206 RGE E HEALTH HDHP PLAN EXPRESS PRESCRIPT Jul 20, RXBWEID [id number] [phone] SRINIVAS BATISTA PATIENT SCRIPTS ION 201722 557 RGE ([id number]) RESTAT PRESCRIPT CBA November 17, 2820 [id number] [phone] Luis BATISTA EO PATIENT ION BLUE 200922 2 RGE Selected Encounter This section includes the information on record at [place] for the Encounter. Date/Time Encounter Type Encounter Description Reason Provider Source May 20, 2021 12:00 Outpatient Encounter EVENT (HISTORICAL) AM IHE Encounter Template Text not used by [facility] Plan of Treatment: Future Appointments (+ 6 months) and Future Tests (+/- 45 days) The Plan of Treatment section includes future care activities for the patient from all [place] treatmentfacilities. This section includes future appointments and future orders which are active, pending orscheduled.Future Appointments This section includes appointments that were scheduled to occur 6 months from the date of the Encounter, up to a maximum of 20 appointments. The data comes from all [place] treatment facilities. Appointment Date/Time Appointment Type Appointment Facili ty Name Oct 11, 2021 08:15 AM AMBULATORY - NONE [facility] Oct 15, 2021 09:00 AM AMBULATORY - NONE Johan RAMOS PT OF [facility] Nov 01, 2021 08:00 AM AMBULATORY - NONE [facility] Active, Pending, and Scheduled Orders This section includes a listing of several types of active, pending, and scheduled orders, including clinic medications orders, diagnostic test orders, procedure orders and consult orders; where the start date of the order is 45 days before the date of the Encounter or 45 days after the date of the Encounter. The data comes from all [place] treatment facilities. Test Date/Time Test Type Test Details Facility Name Jun 12, 2021 12:00 Laboratory - LIPOPROTEIN CHOLESTEROL . [facility] AM Chemistry Order FRACT. PANEL LT GREEN(LI HEP) PLASMA SP Jun 12, 2021 12:00 Laboratory - GLYCOHEMOGLOBIN (A1C [facility] AM Chemistry Order ONLY) BLOOD(LAV-EDTA) SP Immunizations: All administered on the encounter date This section contains immunizations associated to the Encounter. Immunization Series Date Issued Reaction Comments INFLUENZA, UNSPECIFIED FORMULATION May 20, 2021 Advance Directives: All historical and current Section Date Range: From patient's date of to the date document was created. This section includes ALL of a patient's completed or amended [place] Advance and Rescinded Directives. The entries below indicate that a directive exists for the patient, but an actual copy is not included with this document. The data comes from all [place] facilities. Date Advance Directives Provider Source November 23, 2017 ADVANCE DIRECTIVE JOI DEVRIES [facility]
--- OUTSIDE RECORDS SUMMARY | 2022-02-21 01:14 | XMS_ITS | Encounter Summary ---
:1955 Author Organization Department [facility] rs Address [address] [place] [address] Support Name Relationship Address Phone ANA JOYNER Unavailable [address] [place] [address] LESTERMARY Unavailable [address] [place] [address] ANDREINA SULTANA Unavailable [address] [place] [address] WANDA BATISTA Unavailable [address] [place] [address] Insurance Providers: All historical and current Section [...] CBA [facility] Jul 20 [id number] [phone] DANIEL BATISTA O PATIENT DEDUCTIBL SADIE 200922 206 RGE E HEALTH HDHP PLAN EXPRESS PRESCRIPT Jul 20, RXBWEID [id number] [phone] SRINIVAS BATISTA PATIENT SCRIPTS ION 201722 557 RGE ([id number]) RESTAT PRESCRIPT CBA November 17, 2820 [id number] [phone] Luis BATISTA EO PATIENT ION BLUE 200922 2 RGE Selected Encounter This section includes the information on record at VA for the Encounter. Date/Time Encounter Type Encounter Description Reason Provider Source Jun 07, 2021 09:21 Outpatient Encounter ADMIN PAT ACTIVMJ AM (MASNONCT) IHE Encounter Template Text not used by VA Plan of Treatment: Future Appointments (+ 6 months) and Future Tests (+/- 45 days) The Plan of Treatment section includes future care activities for the patient from all [place] treatmentfacilities. This section includes future appointments and future orders which are active, pending orscheduled.Future Appointments This section includes appointments that were scheduled to occur 6 months from the date of the Encounter, up to a maximum of 20 appointments. The data comes from all [place] treatment facilities. Appointment Date/Time Appointment Type Appointment Facili ty Name Oct 11, 2021 08:15 AM AMBULATORY - NONE [facility] Oct 15, 2021 09:00 AM AMBULATORY - NONE Johan RAMOS PT [facility] Nov 01, 2021 08:00 AM AMBULATORY - NONE [facility] Active, Pending, and Scheduled Orders This section includes a listing of several types of active, pending, and scheduled orders, including clinic medications orders, diagnostic test orders, procedure orders and consult orders; where the start date of the order is 45 days before the date of the Encounter or 45 days after the date of the Encounter. The data comes from all [place] treatment facilities. Test Date/Time Test Type Test Details Facility Name Jun 12, 2021 12:00 Laboratory - LIPOPROTEIN CHOLESTEROL [facility] AM Chemistry Order FRACT. PANEL LT GREEN(LI HEP) PLASMA SP Jun 12, 2021 12:00 Laboratory - GLYCOHEMOGLOBIN (A1C [facility] Chemistry Order ONLY) BLOOD(LAV-EDTA) SP Social History: Smoking Status (Most current) and Tobacco Use (All prior to encounter date) This section includes the most current, and the historical, smoking and tobacco-related health factors from the [place] facility where the Encounter took place.Current Smoking Status This section includes the most current smoking, or tobacco-related health factor, from the [place] facility where the Encounter took place. Date/Time Current Smoking Status Comment Facility Jan 26, 2003 10:05 AM QUIT TOBACCO USE > 7 YEARS AGO GUERRERO MONTOYA [facility] Tobacco Use History This section includes a history of the smoking, or tobacco- related health factors, that were collected on or before the date of the Encounter. The data comes from the [place] facility where the Encounter took place. Date/Time Smoking Status/Tobacco Use Comment [facility] it November 29, 2002 01:00 PM HISTORY OF SMOKING GUERRERO TINEO [facility] Advance Directives: All historical and current Section Date Range: From patient's date of to the date document was created. This section includes ALL of a patient's completed or amended [place] Advance and Rescinded Directives. The entries below indicate that a directive exists for the patient, but an actual copy is not included with this document. The data comes from all [place] facilities. Date Advance Directives Provider Source November 23, 2017 ADVANCE DIRECTIVE JOI DEVRIES GUERR[facility] NO T [facility] Encounter Notes: All associated encounter notes This section contains the clinical notes associated to the Encounter. Date/Time Encounter Note(s) Provider Source Jun 07, 2021 09:21 AM PRIMARY CARE ADMINISTRATIVE NOTE: ERIC BRANDT LOCAL TITLE: Administrative Note/Primary Care [facility] STANDARD TITLE: PRIMARY CARE ADMINISTRATIVE NOTE DATE OF NOTE: JUN 07, 2021@09:21 ENTRY DATE: JUN 07, 2021@09:21:48 AUTHOR: ERIC BRAND EXP COSIGNER: URGENCY: STATUS: COMPLETED Kindly delete lab order. Patient is in [place] next six months. LIT LAB RTC is deleted. /jayce/ ERIC BRAND MSA Signed: 06/07/2021 09:22 Receipt Acknowledged By: * AWAITING SIGNATURE * MARTINE ANTONY
--- OUTSIDE RECORDS SUMMARY | 2022-02-21 01:15 | XMS_ITS ---
:1955 Author Organization Department [facility] rs Address [address] [place] [address] Support Name Relationship Address Phone ANA JOYNER Unavailable [address] [place] [address] LESTERMARY Unavailable [address] [place] [address] ANDREINA SULTANA Unavailable [address] [place] [address] WANDA BATISTA Unavailable [address] [place] [address] Insurance Providers: All historical and current Section [...] Telephone Name to Policy Number Vu CBA [facility] Jul 20 [id number] [phone] DANIEL BTAISTA O PATIENT DEDUCTIBL SADIE 200922 206 RGE E HEALTH HDHP PLAN EXPRESS PRESCRIPT Jul 20, RXBWEID [id number] [phone] SRINIVAS BATISTA PATIENT SCRIPTS ION 201722 557 RGE ([id number]) RESTAT PRESCRIPT CBA November 17, 2820 [id number] [phone] Luis BATISTA EO PATIENT ION BLUE 200922 2 RGE Selected Encounter This section includes the information on record at [facility] for the Encounter. Date/Time Encounter Type Encounter Description Reason Provider Source Mar 06, 2021 01:44 Outpatient Encounter ADMIN PAT ACTIVTIES PM (MASCHRISTIANCT) IHE Encounter Template Text not used by VA Social History: Smoking Status (Most current) and Tobacco Use (All prior to encounter date) This section includes the most current, and the historical, smoking and tobacco-related health factors from the [place] facility where the Encounter took place.Current Smoking Status This section includes the most current smoking, or tobacco-related health factor, from the [place] facility where the Encounter took place. Date/Time Current Smoking Status Comment Facility Jan 26, 2003 10:05 AM QUIT TOBACCO USE > 7 YEARS AGO GUERRERO MONTOYA [facility] Tobacco Use History This section includes a history of the smoking, or tobacco- related health factors, that were collected on or before the date of the Encounter. The data comes from the [place] facility where the Encounter took place. Date/Time Smoking Status/Tobacco Use Comment [facility] it November 29, 2002 01:00 PM HISTORY OF SMOKING GUERRERO TINEO Jessica [facility] Advance Directives: All historical and current [...] ADVANCE DIRECTIVE JOI DEVRIES GU[facility] NO T [facility] Encounter Notes: All associated encounter notes This section contains the clinical notes associated to the Encounter. Date/Time Encounter Note(s) Provider Source Mar 06, 2021 01:44 PM PRIMARY CARE ADMINISTRATIVE NOTE: ERIC BRAND LOCAL TITLE: Administrative Note/Primary Care [facility] STANDARD TITLE: PRIMARY CARE ADMINISTRATIVE NOTE DATE OF NOTE: MAR 06, 2021@13:44 ENTRY DATE: MAR 06, 2021@13:44:59 AUTHOR: ERIC BRAND EXP COSIGNER: URGENCY: STATUS: COMPLETED This patient was provided instructions on transf erring care movie projectionist to [place]. Patient canceled [place] lab RTC. /jayce/ EIRC BRAND MSA Signed: 03/06/2021 13:46
--- OUTSIDE RECORDS SUMMARY | 2022-02-21 01:15 | XMS_ITS | Encounter Summary ---
:1955 Author Organization Department [facility] rs Address [address] [place] [address] Support Name Relationship Address Phone ANA JOYNER Unavailable [address] [place] [address] LESTERMARY Unavailable [address] [place] [address] ANDREINA SULTANA Unavailable [address] [place] [address] WANDA BATISAT Unavailable [address] [place] [address] Insurance Providers: All historical and current Section [...] Telephone Name to Policy Number Vu C[facility] Jul 20 [id number] [phone] DANIEL BATISTA O PATIENT DEDUCTIBL SADIE 2009 206 RGE E HEALTH HDHP PLAN EXPRESS PRESCRIPT Jul 20 [id number] [phone] SRINIVAS BATISTA PATIENT SCRIPTS ION [id number] RGE ([id number]) RESTAT PRESCRIPT CBA November 17, 2820 [id number] [phone] Luis BATISTA EO PATIENT ION BLUE [id number] 2 RGE Selected Encounter This section includes the [facility]. Date/Time Encounter Type Encounter Description Reason Provider Source Aug 21, 2021 03:20 Outpatient Encounter PRIMARY CARE/MEDICINE PM [facility] Encounter Template Text not used by [facility] Plan of Treatment: Future Appointments (+ 6 months) and Future Tests (+/- 45 days) The Plan of Treatment section includes future care activities for the patient from all [place] treatmentfacilities. This section includes future appointments and future orders which are active, pending orscheduled.Future Appointments This section includes appointments that were scheduled to occur 6 months from the date of the Encounter, up to a maximum of 20 appointments. The data comes from all [place] treatment facilities. Appointment Date/Time Appointment Type Appointment Facili ty Name Oct 11, 2021 08:15 AM AMBULATORY - NONE [facility] Oct 15, 2021 09:00 AM AMBULATORY - NONE Johan RAMOS [facility] Nov 01, 2021 08:00 AM AMBULATORY - NONE [facility] Social History: Smoking Status (Most current) and Tobacco Use (All prior to encounter date) This section includes the most current, and the historical, smoking and tobacco-related health factors from the DE facility where the Encounter took place.Current Smoking Status This section includes the most current smoking, or tobacco-related health factor, from the DE facility where the Encounter took place. Date/Time Current Smoking Status Comment Facility Jan 26, 2003 10:05 AM QUIT TOBACCO USE > 7 [facility]ARS AGO [facility] Tobacco Use History This section includes a history of the smoking, or tobacco- related health factors, that were collected on or before the date of the Encounter. The data comes from the DE facility where the Encounter took place. Date/Time Smoking Status/Tobacco Use Comment [facility] November 29, 2002 01:00 PM HISTORY OF SMOKING [facility] Advance Directives: All historical and current Section Date Range: From patient's date of to the date document was created. This section includes ALL of a patient's completed or amended [place] Advance and Rescinded Directives. The entries below indicate that a directive exists for the patient, but an actual copy is not included with this document. The data comes from all [place] facilities. Date Advance Directives Provider Source November 23, 2017 ADVANCE DIRECTIVE JOI DEVRIES [facility] Encounter Notes: All associated encounter notes This section contains the clinical notes associated to the Encounter. Date/Time Encounter Note(s) Provider Source Aug 21, 2021 03:20 PM PRIMARY CARE ANNUAL EVALUATION NOTE: MARTINE ANTONY [facility] LOCAL TITLE: Preventive Health Annual Review STANDARD TITLE: PRIMARY CARE ANNUAL EVALUATION N OTE DATE OF NOTE: AUG 21, 2021@15:20 ENTRY DATE: AUG 21, 2021@15:20:33 AUTHOR: MARTINE ANTONY EXP COSIGNER: URGENCY: STATUS: COMPLETED Preventive Health Annual Review Has ADDENDA Hemoglobin A1C: Patient declines Hemoglobin A1C testing at this time. Care is moved to [place] daytime caregiver /jayce/ MARTINE ANTONY ALLOY WEIGHER Signed: 08/21/2021 15:21 08/22/2021 ADDENDUM STATUS: COMPLETED please review to remove froom provider panel For Official Use Only Name: CLAUDIA BATISTA : 1955 LOCAL TITLE: CONSULT TRAVELING COORDINA TION STANDARD TITLE: MARKETING COPYWRITER CONSULT DATE OF NOTE: AUG 19, 2021@08:22 ENTRY DATE: AUG 19, 2021@08:23:04 AUTHOR: ELIDA BENNETT EXP COSIGNER: URGENCY: STATUS: COMPLETED IFC Received. Request for PACT assignment and ap pointment coordination as he wishes to transfer all prima ry care to [facility]. Request entered into [facility] system for MSA to assign Vet to P ACT panel and for appointment coordination as requested. Vet can call direct to coordinate or for follow up inquiry to: Rhoda Patricia: [phone] x [phone]. /jayce/ ELIDA BENNETT REGISTERED NURSE Signed: 08/19/2021 08:23 /jayce/ TOÑA GOMEZ/[employer] Signed: 08/22/2021 10:32 Receipt Acknowledged By: * AWAITING SIGNATURE * JOANIE SPICER
--- OUTSIDE RECORDS SUMMARY | 2022-02-21 01:15 | XMS_ITS | Encounter Summary ---
:1955 Author Organization [facility] [place] [address] Care Team Providers Name Role Phone Denise Hooker APRN Primary Care Provider [phone] Reason for Visit Reason Comments Skin Check Encounter Details Date Type Department Care Team Description 09/13/2013 Office Visit Dermatology at [facility], Seborrh eic keratosisElder MD inflamed (Primary Dx) [address] [facility] D[facility]MATOLOGY [place], [place] [address] [id number] [phone] Social History Tobacco Use Types Packs/Day Years Used Date Unknown If Ever Smoked Sex Assigned at Date Recorded Not on file documented as of this encounter Progress Notes [facility] MD - 09/13/2013 10:02 AM EST Problem: Left lateral thigh lesion. Raul is a 57-year-old gentleman who is diabetic. He recently noted a soreness of the left lateral thigh and found an erythematous, inflammatory reaction surrounding a central keratotic lesion. He was seen by REZA Krishnamurthy, at the [facility] and given a course of cephalexin on September 01, 2013. This 10-day course has brought a resolution of the erythema at the affected site. However, the central hyperkeratotic lesion remains. The patient denies any past history of skin cancer or melanoma. Physical examination reveals a pleasant, 57-year-old gentleman who has a seborrheic keratosis on the left lateral thigh, a flesh-toned, hyperkeratotic, 1-cm, waxy, [id number] papule. Assessment and Plan: Seborrheic keratosis. a. After obtaining informed patient consent, the site was anesthetized and removed with shave C and D. b. Triple antibiotic ointment and Band-Aid placed. Wound care instructions and supplies given. c. I will notify the patient of biopsy results in one week when pathology is available. The patient was reassured, however, about the benign appearance of this lesion. I suspect that it had become inflamed, perhaps by clothing or other rubbing against it. COPY: REZA Krishnamurthy documented in this encounter Plan of Treatment Not on filedocumented as of this encounter Visit Diagnoses Diagnosis Seborrheic keratosis, inflamed - Primary Inflamed seborrheic keratosis documented in this encounter Care Teams Monotype Mechanic Relationship Specialty Start Date End Date Denise Hooker APRN PCP - General 09/05/13 [address] [place] [address] documented as of this encounter
--- OUTSIDE RECORDS SUMMARY | 2022-02-21 01:15 | XMS_ITS ---
:1955 Author Care Team Providers Name Role Phone DR. RENEE MATHIAS Primary Care Provider [phone] DR. RENEE MATHIAS Referring Provider [phone] Allergies Code Code System Name Reaction Severity Status Onset Imdur ? ? Active ? Medications Name Status Start Date Stop Date ? ? Adult Aspirin Regimen 81 mg tablet,delayed release Active ? Not available Take 1 tablet every day by oral route. Advocate Syringes 0.5 mL 31 gauge x 12/02 Active ? Not available amlodipine 10 mg tablet Active ? Not avai lable Take 1 tablet every day by oral route. Bydureon 2 mg/0.65 mL subcutaneous pen injector Active ? Not available Inject 2 mg every week by subcutaneous route. cholecalciferol (vitamin D3) 25 mcg (1,000 unit) tablet Active ? Not available Take 1 tablet every day by oral route. clotrimazole 1 % topical cream Active ? N ot available APPLY TO THE AFFECTED AND SURROUNDING A REAS OF SKIN BY TOPICAL ROUTE 2 TIMES PER DAY IN THE MORNING AND EVENING Crestor 40 mg tablet Active ? Not availab le Take 1 tablet every day by oral route. cyclobenzaprine 10 mg tablet Completed ? Take 1 tablet 3 times a day by oral route as needed. Farxiga 5 mg tablet Active ? Not availabl e Take 1 tablet every day by oral route. fenofibrate 150 mg capsule Active ? Not a vailable Take 1 capsule every day by oral route. Humalog Mix 75-25 KwikPen U-100 insulin 100 unit/mL subcutaneous pen Active ? Not available 44 units in am and 40 units in pm. Lantus Solostar U-100 Insulin 100 unit/mL (3 mL) subcutaneous pe n Completed ? 02/10/2022 Inject 35 units twice a day by subcutaneous route. lisinopril 5 mg tablet Active ? Not avail able Take 1 tablet every day by oral route. metformin 500 mg tablet Active ? Not avai lable Take 2 tablets twice a day by oral route. metoprolol succinate ER 50 mg tablet,extended release 24 hr Acti ve ? Not available Take 3 tablets every day by oral route. Nitrostat 0.4 mg sublingual tablet Active ? Not available PLACE 1 TABLET (0.4 MG) BY SUBLINGUAL R OUTE EVERY 5 MINUTES NEEDEDFOR CHEST PAIN. DO NOT EXCEED 3 DOSES IN 15 MINUTES. OneTouch Verio test strips Active ? Not a vailable Take 1 strip twice a day by miscell. route. Pen Needle 31 gauge x 12/02 Active ? Not available Take 1 needle 3 times a day by miscell. route. ranolazine ER 500 mg tablet,extended release,12 hr Active ? Not available Take 1 tablet twice a day by oral route. sertraline 50 mg tablet Completed ? 02/11/20 22 Take 1 tablet every day by oral route. trazodone 50 mg tablet Completed ? 2 Take 1 tablet every day by oral route. Vitamin D3 Completed ? 02/10/2022 1000 UNITS DAILY Problems Name Status Onset Date Source ? Polyp of Colon Active ? ? Vitamin D Deficiency Active ? ? Hyperlipidemia Active ? ? Obesity Active ? ? Anxiety Active ? ? Depressive Disorder Active ? ? Hypertensive Disorder Active ? ? Acute non-ST Segment Elevation Myocardial Infarction Active ? ? Myocardial Infarction Active ? ? History of non-ST Segment Elevation Myocardial Infarction Active ? ? Coronary Arteriosclerosis Active ? ? Nonsustained Ventricular Tachycardia Active ? ? Venous Stasis Active ? ? Disease of Liver Active ? ? Gallstone Active ? ? Renal Fibrosis Active ? ? Skin Tag Active ? ? Skin Lesion Active ? ? Hip Pain Active ? ? Thoracic Back Pain Active ? ? Sciatica Active ? ? Chronic Back Pain Active ? ? Heel Pain Active ? ? Heel Pain Active ? ? Vertigo Active ? ? Sleep Apnea Active ? ? Muscle Twitch Active ? ? Diarrhea Active ? ? Adult Health Examination Active ? ? Cyst of Kidney Active ? ? Hepatic Function Panel Active ? ? Type 2 Diabetes Mellitus Controlled by Diet Active ? ? Secondary Restless Legs Syndrome Active ? ? Pain of Knee Region Active ? ? Procedures None recorded. Results Lab Results None recorded. Past Encounters None recorded. Social History Tobacco Smoking Status Former Smoker Vaccine List Vaccine Type COVID-19 (SARS-COV-2) vaccine, unspecifi ed 08/31/2020 09/21/2020 04/22/2021 01/31/2022 Plan of Care Reminders Provider Appointments None recorded. ? ? Lab None recorded. ? ? Referral None recorded. ? ? Procedures None recorded. ? ? Surgeries None recorded. ? ? Imaging None recorded. ? ? Vitals Height Weight BMI Blood Pressure 175.26 cm 106.59 kg 34.7 kg/m2 132/72 mm[Hg]
--- OUTSIDE RECORDS SUMMARY | 2022-02-21 01:15 | XMS_ITS | Encounter Summary ---
:1955 Author Organization [facility] [place] [address] Care Team Providers Name Role Phone Davian Calabrese MD Primary Care Provider Reason for Visit Reason Onset Date Comments Advice Only 08/18/2012 Encounter Details Date Type Department Care Team Description 08/18/[address] [facility] Opal Cardoza, program engagement [place] [phone] Social History Tobacco Use Types Packs/Day Years Used Date Never Assessed Sex Assigned at Date Recorded Not on file documented as of this encounter Miscellaneous Notes Telephone Encounter - Opal Cardoza, RN - 08/18/2012 9:02 AM EST Received call from patient. He had 2 stents placed in 2003 and he is having a MRI today at 12:30 pm at an outside facility. He needs to know if his stents are compatible with the MRI. Spoke with Darlin, in MRI-pt's stents are Multilink stents(ULTRA RX) and are both compatible with MRI. Pt informed and verbalized understanding. documented in this encounter Plan of Treatment Not on filedocumented as of this encounter Visit Diagnoses Not on filedocumented in this encounter Care Teams Dining Room Busser Relationship Specialty Start Date End Date Davian Calabrese MD PCP - General 06/11/10 09/04/[address] [address] documented as of this encounter
== END ==
PROVIDERS: PCP Nurse Practitioner Family; Visit Provider Nurse Practitioner Family
DX: K76.0 Fatty (change of) liver, not elsewhere classified (principal); R16.0 Hepatomegaly, not elsewhere classified
CPT/HCPCS: 76705

== ENCOUNTER 2022-02-28 07:54 | Outpatient (CLI) | payer MEDICARE, BC, SELFPAY ==
--- NOTE | 2022-02-28 07:45 | RT.EKG_ITS ---
APPROVED REPORT Exam: Resting ECG Reason for Exam: NSVT CAD Patient Location: O HR:72 bpm ECG Measurements Heart Rate 72 AXIS RI 184 P 50 QRSd 110 QRS 92 QT 385 T 10 QTc 422 Conclusion Sinus rhythm...normal P axis, V-rate 50- 99 Right axis deviation...QRS axis ( 98,014)
== END 2022-02-28 07:55 | disposition home or self-care (01) ==
LOC: DI.CARD 07:56
PROVIDERS: PCP Nurse Practitioner Family; Visit Provider Internal Medicine Cardiovascular Disease
DX: I25.10 Atherosclerotic heart disease of native coronary artery without angina pectoris (principal); I47.2 Ventricular tachycardia
CPT/HCPCS: 93010

== ENCOUNTER → 2022-02-28 09:55 | Outpatient (BNVA) | payer MEDICARE, BC, SELFPAY | PROVIDERS: PCP Nurse Practitioner Family; Referring Provider Nurse Practitioner Family; Visit Provider Internal Medicine Cardiovascular Disease | DX: I25.119 Atherosclerotic heart disease of native coronary artery with unspecified angina pectoris (principal); I25.2 Old myocardial infarction; G47.33 Obstructive sleep apnea (adult) (pediatric); Z99.89 Dependence on other enabling machines and devices; Z95.5 Presence of coronary angioplasty implant and graft; Z82.49 Family history of ischemic heart disease and other diseases of the circulatory system; Z87.891 Personal history of nicotine dependence; I47.2 Ventricular tachycardia; I10 Essential (primary) hypertension; E78.5 Hyperlipidemia, unspecified | CPT/HCPCS: 93005; 99203; 99214 ==

== ENCOUNTER 2022-03-17 14:20 | Outpatient (CLI) | payer MEDICARE, BC, SELFPAY ==
--- NOTE | 2022-03-17 14:15 | DI.RAD_ITS ---
Exam(s) XR HIP LT COMPLETE AP PELVIS EXAM: XR HIP LT COMPLETE AP PELVIS CLINICAL HISTORY: left hip pain. TECHNIQUE: 2D digital imaging was performed of the left hip. Three views were obtained. AP pelvis and lateral left hip views were obtained. COMPARISON: No exams were available for comparison FINDINGS: BONES: No acute fracture is present. No bony destructive lesion is seen. JOINTS: No dislocation present. There are mild degenerative changes of the hips bilaterally. There i s joint space narrowing present bilaterally. SOFT TISSUE: Atherosclerosis is present. IMPRESSION: Osteoarthritis of the left hip. DATA REPOSITORY: RADIATION DOSE DELIVERED:
== END 2022-03-17 14:21 | disposition home or self-care (01) ==
LOC: DIORS 14:20
PROVIDERS: PCP Nurse Practitioner Family; Referring Provider Nurse Practitioner Family; Visit Provider Physician Assistant
DX: I10 Essential (primary) hypertension; M16.12 Unilateral primary osteoarthritis, left hip
CPT/HCPCS: 99214; 73502

== ENCOUNTER → 2022-04-17 12:53 | Outpatient (BNVA) | payer MEDICARE, BC, SELFPAY | PROVIDERS: PCP Nurse Practitioner Family; Referring Provider Nurse Practitioner Family; Visit Provider Physician Assistant | DX: Z01.818 Encounter for other preprocedural examination (principal); M16.12 Unilateral primary osteoarthritis, left hip ==

== ENCOUNTER 2022-04-21 04:04 | Outpatient (CLI) | payer MEDICARE, BC, SELFPAY ==
[2022-04-21 08:58] LABS: HGB 14.5 g/dL (13.5-17.5); MCH 28.4 pg (27.0-33.0); MCV 86 fL (80-95); MPV 10.1 fL (8.0-11.0); Platelet Count 258 10^3/uL (130-400); RDW 12.3 % (11.8-14.1); RDW-SD 39.4 fL; WBC 8.93 10^3/uL (4.4-10.8)
[2022-04-21 09:38] LABS: Anion Gap 11.6 mmol/L (3-11); BUN 13 mg/dL (7-18); CO2 24.4 mmol/L (21.0-32.0); CREATININE 0.9 mg/dL (0.70-1.30); Calcium 9.1 mg/dL (8.5-10.1); Chloride 101 mmol/L (98-107); Estimated GFR 93.61 (mL/min/1.73m2); Glucose 250 mg/dL (74-106); Potassium 3.8 mmol/L (3.5-5.1); Sodium 137 mmol/L (136-145)
== END 2022-04-21 04:05 | disposition home or self-care (01) ==
LOC: LBO 04:05
PROVIDERS: PCP Nurse Practitioner Family; Visit Provider Student in an Organized Health Care Education/Training Program
DX: M25.552 Pain in left hip (principal); M16.12 Unilateral primary osteoarthritis, left hip; Z01.818 Encounter for other preprocedural examination; Z01.812 Encounter for preprocedural laboratory examination
CPT/HCPCS: 36415; 80048; 85027

== ENCOUNTER 2022-04-22 07:02 | Day surgery (SDC) | payer MEDICARE, BC, SELFPAY ==
[2022-04-22] VITALS (10 sets, daily range): BP systolic 98–130; BP diastolic 53–68; PULSE 67–83; RESP 16–20; TEMP 35.7–36.7; O2SAT 95–99; BMI 34.2
--- NOTE | 2022-04-22 07:18 | W.PM.DSUDISC ---
Discharge Plan Disposition Patient Disposition: HOME Condition: Good Discharge Details Reason For Visit: L THR Attending Provider: Varun Evans Primary Care Provider: Denise Hooker Home Meds and New Rx's Prescriptions: New celecoxib 200 mg capsule 200 mg PO BID Qty: 60 0RF aspirin 81 mg tablet,delayed release (DR/EC) 81 mg PO BID Qty: 60 0RF acetaminophen 500 mg tablet 1,000 mg PO TID Qty: 90 3RF pantoprazole 40 mg tablet,delayed release (DR/EC) 40 mg PO DAILY Qty: 30 0RF oxycodone 5 mg tablet 5 mg PO Q4H MDD 6 tabs PRN (Reason: pain) Qty: 20 0RF Continued multivitamin Tablet 1 tab PO DAILY insulin lispro protamin-lispro [Humalog Mix 75-25 KwikPen] 100 unit/mL (75-25) insulin pen 44 unit subcut BID Rx Instructions: 44 units Q AM and 40 units Q PM fenofibrate 150 mg capsule 150 mg PO DAILY ranolazine 500 mg tablet extended release 12 hr 500 mg PO BID metformin 500 mg tablet 1,000 mg PO BID Bydureon BCise 2 mg/0.85 mL auto-injector 2 mg subcut QWEEK nitroglycerin 0.4 MG tablet, sublingual 0.4 mg Sublingual PRN PRN metoprolol succinate [Toprol XL] 100 MG tablet extended release 24 hr 150 mg PO QAM lisinopril 5 MG tablet 5 mg PO QAM amlodipine 10 MG tablet 10 mg PO QAM rosuvastatin [Crestor] 40 MG tablet 40 mg PO DAILY Farxiga 5 mg tablet 5 mg PO DAILY Label Comments: TAKE ONE TABLET BY MOUTH EVERY DAY trazodone 50 mg Tablet 50 mg PO QHS Discontinued aspirin [Adult Low Dose Aspirin] 81 mg tablet,delayed release (DR/EC) 81 mg PO DAILY Discharge Instructions Additional Instructions: Total Hip Discharge Instructions Activity: The most important activity is to walk. You should try to take short walks a few times a day. You have no restrictions on movement or positioning, but do not try to force what you do. You will find some stiffness and weakness with hip flexion (lifting your knee). Do not try to strengthen this too early, continue to practice walking and stairs and this will come. - Outpatient physical therapy can be helpful to help return you to a normal gait and improve your flexibility and strength. This can start around 2 weeks. For some patients, it?s not necessary. Usually this is determined at the time of discharge or at the first post-operative visit. - You should wear the ORVILLE hose on both legs for 2 weeks. Dressing: Keep the surgical dressing in place for at least one week. After the first week it may be removed and replace with light gauze and tape or nothing. It may get wet after 3 days but avoid soaking the dressing. If it gets wet, just lightly pat dry. It is important to always keep some gauze between skin folds, especially when you are sitting. Spend some time with the wound exposed when you are lying flat as the incision does wrinkle onto itself. Medications: - You should take Tylenol and an anti-inflammatory Celebrex as your primary pain control medications. If the Celebrex is too expensive or not covered, please call the office for another alternative (Advil/Ibuprofen or Naproxen/Aleve). - You have been prescribed a stronger pain medication Oxycodone for breakthrough pain, take as needed as prescribed. - You have also been prescribed a stomach acid reduction agent Pantoprozole to help reduce stomach acid and reflux. - You will be taking Aspirin 81mg twice a day for DVT prevention unless instructed otherwise. - If you have constipation you should take Colace or Miralax (both rhid-win-wvoivve). It takes most people 3-4 days to have a bowel movement. Follow-up: 2 weeks If you have any acute concerns or questions, please do not hesitate to contact the office at [phone]. You may contact Dr. Evans with any questions after hours through the hospital at [phone] or on his cell phone at [phone]. Stand Alone Forms: Anesthesia Discharge InstJefferson, Lalo Maldonado (DSU) Referrals: Varun Evans MD [ [facility] STAFF PHYSICIAN] - Equipment/Supplies: Walker Activity:: Activity as Tolerated Remove Dressings/Wound Care:: Do Not Remove Shower/Bathe:: 72 hours Diet:: As Tolerated Discharge Orders Discharge Orders: Discharge Order (Routine); Ordered 04/22/22 Ordered By: Varun Evans DS: Diagnosis Discharge Diagnosis (1) Degenerative joint disease of left hip: Status: Chronic
--- NOTE | 2022-04-22 07:55 | W.ANESPRE ---
General Info Date of Service Date Performed: 04/22/22 Height: 5 ft 9 in Weight: 105.1 kg Body Mass Index (BMI): 34.2 Surgical Procedure: Operation Date: 04/22/22 09:35 Proposed Procedure Side Surgeon p Hip Total Hip Anterior ACTIS Left Varun Evans MD Meds Allergies and Home Medications Allergies Allergy/AdvReac Type Severity Reaction Status Date / Time isosorbide AdvReac Verified 04/22/22 07:50 Home Medication Medication Instructions Recorded amlodipine 10 mg tablet 10 mg PO QAM 07/23/14 lisinopril 5 mg tablet 5 mg PO QAM 07/23/14 metoprolol succinate 100 mg 150 mg PO QAM 07/23/14 tablet,extended release 24 hr (Toprol XL) nitroglycerin 0.4 mg sublingual 0.4 mg sublingual PRN PRN 07/23/14 tablet rosuvastatin 40 mg tablet (Crestor) 40 mg PO DAILY 07/23/14 trazodone 50 mg tablet 50 mg PO QHS 12/01/18 dapagliflozin 5 mg tablet (Farxiga) 5 mg PO DAILY 03/18/20 fenofibrate 150 mg capsule 150 mg PO DAILY 02/04/22 insulin lispro protamine-lispro 44 unit subcut BID 02/04/22 100 unit/mL (75-25) subcutaneous pen (Humalog Mix 75-25 KwikPen) metformin 500 mg tablet 1,000 mg PO BID 02/04/22 ranolazine 500 mg tablet,extended 500 mg PO BID 02/04/22 release,12 hr exenatide microspheres 2 mg/0.85 2 mg subcut QWEEK 02/06/22 mL subcutaneous auto-injector (Bydureon BCise) multivitamin 1 tab PO DAILY 04/17/22 acetaminophen 500 mg tablet 1,000 mg PO TID #90 tabs 04/22/22 aspirin 81 mg tablet,delayed 81 mg PO BID #60 tabs 04/22/22 release celecoxib 200 mg capsule 200 mg PO BID #60 caps 04/22/22 oxycodone 5 mg tablet 5 mg PO Q4H PRN pain #20 tabs 04/22/22 pantoprazole 40 mg tablet,delayed 40 mg PO DAILY #30 tabs 04/22/22 release Current Visit Medications: Current Medications Generic Name Dose Route Start Last Admin Trade Name Freq PRN Reason Stop Dose Admin Acetaminophen 1,000 mg 04/22/22 06:00 Acetaminophen 500 Mg Tab PO 04/22/22 16:00 PREOP [facility] Acetaminophen 1,000 mg 04/22/22 14:00 Acetaminophen 500 Mg Tab PO TID [facility] Aspirin 81 mg 04/22/22 20:00 Aspirin E.C. 81 Mg Tabec PO BID [facility] Celecoxib 400 mg 04/22/22 06:00 Celecoxib 200 Mg Cap PO 04/22/22 16:00 PREOP [facility] Celecoxib 200 mg 04/22/22 20:00 Celecoxib 200 Mg Cap PO BID [facility] Docusate Sodium 100 mg 04/22/22 07:14 Docusate Sodium 100 Mg Cap PO BID PRN PRN Constipation Tranexamic Acid 1,000 mg/ 60 mls @ 360 mls/hr 04/22/22 06:00 Sodium Chloride IV 04/22/22 16:00 PREOP [facility] Ringer's Solution 1,000 mls @ 80 mls/hr 04/22/22 06:00 IV 04/22/22 23:59 INFUSION [facility] Cefazolin Sodium/Dextrose 2 gm in 50 mls @ 100 mls/hr 04/22/22 06:00 Ancef Duplex IVPB 04/22/22 23:59 PREOP [facility] Cefazolin Sodium/Dextrose 1 gm in 50 mls @ 100 mls/hr 04/22/22 08:00 Ancef Duplex IVPB 04/23/22 00:29 Q8H [facility] IV Miscellaneous Supplies 1 each 04/22/22 06:00 Iv Access IV 04/22/22 23:59 DIRECTED [facility] Ondansetron HCl 4 mg 04/22/22 07:14 Ondansetron 4 Mg/2 Ml Vial IVP Q6H PRN PRN Nausea Oxycodone HCl 0 mg 04/22/22 07:14 Oxycodone 5 Mg Tab PO Q3H PRN PRN Pain Pantoprazole Sodium 40 mg 04/23/22 07:30 Pantoprazole 40 Mg Tabcr PO DAILY@0730 [facility] Polyethylene Glycol 17 gm 04/22/22 07:14 Polyethylene Glycol 3350 17 Gm Packet PO BID PRN PRN Constipation Sodium Chloride 0 ml 04/22/22 06:00 Normal Saline Flush 10 Ml Syr IV 04/22/22 23:59 PRN PRN Sodium Chloride 0 ml 04/22/22 06:00 Normal Saline 10 Ml Vial IJ 04/22/22 23:59 DIRECTED PRN Sterile Water 0 ml 04/22/22 06:00 Water,Injection,Sterile 10 Ml Vial IJ 04/22/22 23:59 DIRECTED PRN PFSH Active Problems Active Problems: Problem Status Onset Code Essential hypertension I10 Unstable angina I20.0 Atherosclerotic heart disease ak chin coronary artery w/angina pectoris I25.119 Diabetes mellitus type 2 in obese E11.9, E66.9 Long-term insulin use in type 2 diabetes E11.9, Z79.4 Tubular adenoma of colon 03/27/17 D12.6 Coronary artery disease I25.10 Depression with anxiety F41.8 Non-sustained ventricular tachycardia I47.2 Degenerative joint disease of left hip M16.12 Medical History Medical History Depression Diarrhea DM (diabetes mellitus) Elevated LFTs Fatty liver disease, nonalcoholic Gall stone HLD (hyperlipidemia) HTN (hypertension) Nonsustained paroxysmal ventricular tachycardia NSTEMI (non-ST elevated myocardial infarction) 02/2020 Obesity DEEPALI (obstructive sleep apnea) RLS (restless legs syndrome) Vertigo Vitamin D deficiency Medical History Comments:: 04/22/22:pt took half a gummie with THC on 04/21/22 Surgical History Surgical History Colonoscopy - MAC (03/27/17) Coronary Stent 9 stents. Last placement on 02/11/16 Excision, Distal Clavicle (05/11/15) DR BROWN/LEFT History of umbilical hernia repair Rotator Cuff Repair (05/11/15) Status post amputation of lesser toe of right foot Fifth toe was removed Status post carpal tunnel release of both wrists Tobacco Smoking/Tobacco Use Status: Former Tobacco Use Alcohol Alcohol Intake: never Substance Use Substance use: Daily Substance use type: other Details: uses 0.5-1 THC gummy qHS Vital Signs and Lab Results Vital Signs Most Recent Vital Signs in EMR: Most Recent Vital Signs Temp Pulse Resp BP Pulse Ox 36.5 C 83 16 130/68 99 04/22/22 07:43 04/22/22 07:43 04/22/22 07:43 04/22/22 07:43 04/22/22 07:43 Lab Results Blood Type / Crossmatch: No Data to Display Complete Blood Count: White Blood Count 8.93 10^3/uL (4.4-10.8) 04/21/22 08:45 Red Blood Count 5.10 10^6/uL (4.36-5.78) 04/21/22 08:45 Hemoglobin 14.5 g/dL (13.5-17.5) 04/21/22 08:45 Hematocrit 44.0 % (40.0-50.0) 04/21/22 08:45 Platelet Count 258 10^3/uL (130-400) 04/21/22 08:45 Complete Metabolic Panel: Sodium Level 137 mmol/L (136-145) 04/21/22 08:45 Potassium Level 3.8 mmol/L (3.5-5.1) 04/21/22 08:45 Chloride Level 101 mmol/L (98-107) 04/21/22 08:45 Carbon Dioxide Level 24.4 mmol/L (21.0-32.0) 04/21/22 08:45 Blood Urea Nitrogen 13 mg/dL (7-18) 04/21/22 08:45 Creatinine 0.9 mg/dL (0.70-1.30) 04/21/22 08:45 Calcium Level 9.1 mg/dL (8.5-10.1) 04/21/22 08:45 Glucose Level 250 mg/dL (74-106) H 04/21/22 08:45 Hemoglobin A1c 6.8 % (4.5-5.7) H 04/17/22 13:23 Liver Function Panel: No Data to Display Coagulation Panel: No Data to Display Cardiac Panel: No Data to Display Arterial Blood Gas: No Data to Display Venous Blood Gas: No Data to Display Pancreas Panel: No Data to Display Thyroid Panel: No Data to Display Infectious Disease: No Data to Display Blood Cultures: No Data to Display Toxicology Panel: No Data to Display Imaging and Studies Imaging and Studies Study information below may be from another EMR and interpreted by another provider. Please see original notes in EMR for more complete details. EKG Summary: DATE/TIME OF SERVICE: 02/28/22909 : 1955PERFORMING LOCATION: .CARD APPROVED REPORT Exam: Resting ECG Reason for Exam: NSVT CAD Patient Location: O HR:72 bpm ECG Measurements Heart Rate 72 AXIS DE 184 P 50 QRSd 110 QRS 92 QT 385 T10 QTc 422 Conclusion Sinus rhythm...normal P axis, V-rate 50- 99 Right axis deviation...QRS axis ( 91,269) Echocardiogram Summary: 03/19/20: [facility]: Left VentricleThe left ventricular cavity was normal in size. Left ventricular systolic function was normal with an ejection fraction of 55-60%. Left ventricular diastolic parameters were not diagnostic. Left ventricular wall thickness was normal. Left ventricular wall motion was normal; there were no regional wall motion abnormalities. Right VentricleThe right ventricular cavity was normal in size. Right ventricular systolic function was normal. Right ventricular wall thickness was normal. Left AtriumThe left atrium was normal in size. Right AtriumThe right atrium was normal in size. Aortic ValveThe aortic valve structure was trileaflet. The aortic leaflets were not thickened. There was no aortic valve stenosis. There was no aortic valve regurgitation. Mitral ValveMitral valve structure was normal. There was no significant mitral valve stenosis or regurgitation. Tricuspid ValveTricuspid valve structure was normal. There was no tricuspid valve regurgitation. There was no tricuspid valve stenosis. Pulmonic ValveThere was no pulmonic valve regurgitation. There was no pulmonic valve stenosis. Pulmonic ArteryUnable to assess PA pressure. Ascending AortaThe aorta was normal in size. PericardiumThere was no pericardial effusion. IVC/SVCThe inferior vena cava was normal in size. Cardiac Catheterization Summary: 03/19/20: [facility]: CORONARY ARTERIES: The coronary circulation is right dominant. Left main: Minor luminal irregularities. LAD: Proximal vessel lesion: There is a 30% stenosis. Patent stents with minimal ISR. Slow flow initially with rapid improvement to normal with IC NTG. Ramus intermedius: Minor luminal irregularities. Left circumflex: Proximal vessel lesion: There is a 30% stenosis. Distal vessel lesion: There is a 50% stenosis. unchanged. Right coronary: Proximal vessel lesion: There is minimal in-stent restenosis. Anesthesia Assessment and Plan Anesthesia History Personal History: No History of Anesthesia Complications Family History: No Family History of Anesthesia Complications Exercise Tolerance Exercise Tolerance: Metabolic Equivalents>4 Pertinent Negatives Pertinent Negatives: No Symptoms of GERD and No Major Pulmonary Symptoms or Complaints Cardiac & Pulmonary Exam Cardiac Exam: Normal S1/S2 Heart Sounds Pulmonary Exam: Clear Bilateral Breath Sounds Implantable Cardiac Device Does patient have a Pacemaker or an ICD?: No Airway Exam Known Difficult Airway: No Mallampati Class: 2 Mouth Opening: Normal (> 3cm) Thyromental Distance: Greater than 3 cm Neck Range of Motion: Full ROM Neck Circumference: Normal Teeth Condition: Normal Dentition ASA Classification ASA Score: ASA 3 Emergency Case?: No NPO Status NPO Status: NPO Clears >2 hours, Solids >8 hours Anesthesia Plan Resuscitation Status: Full Code Anesthesia Technique: Spinal Anesthesia Airway Planned: Natural Airway Monitors Used: Standard Monitors Preoperative Comments:: Raul conde is a 64-year-old male with a past medical history significant for coronary artery disease (S/p 9 stents), NSTEMI in 2020, type 2 diabetes (insulin-dependent) HTN, HLD, DEEPALI, and significant tobacco use history. No active symptoms. Cleared by cardiology.
[2022-04-22] MEDS: Celecoxib 200 MG CAP 400 MG PO (08:00)
[2022-04-22] MEDS: Acetaminophen 500 MG TAB 1000 MG PO (08:00)
[2022-04-22] MEDS: Lactated Ringers 1,000 ML 80 ML IV (08:16)
[2022-04-22] MEDS: ceFAZolin 2 GM/50 ML BAG IVPB (09:00)
--- NOTE | 2022-04-22 10:26 | DI.RAD_ITS ---
Exam(s) XR HIP LT IN OR EXAM: XR HIP LT IN OR CLINICAL HISTORY: DJD LEFT HIP. TECHNIQUE: 2D digital imaging was performed. COMPARISON: No exams were available for comparison FINDINGS: Intraoperative fluoroscopy provided during orthopedic procedure. No images. See procedure report for details. Total fluoroscopy time= 47.4 seconds IMPRESSION: Total clipped of dose= 9.7651mGy DATA REPOSITORY: RADIATION DOSE DELIVERED:
[2022-04-22] MEDS: Normal Saline 10 ML VIAL IJ (11:23)
[2022-04-22] MEDS: HYDROmorphone 2 MG/ML SYR IVP ×2 (11:23→11:36)
[2022-04-22] MEDS: oxyCODONE 5 MG TAB PO (12:27)
--- NOTE | 2022-04-22 13:19 | IN_ITS ---
PT Notes Visit Reasons: L THR Inpatient Physical Therapy Evaluation Date: 04/22/2022 Referring Doctor: Varun Evans MD PT Orders: PT CONSULT: Status post left CARLITO Precautions: Fall precaution Patient Profile/Admitting Diagnosis: 66-year-old male with bilateral osteoarthritis of the hips status post left CARLITO earlier today [facility] Medical History?(Updated 04/16/22 @ 12:55 by Enedina Michelle) Depression Diarrhea DM (diabetes mellitus) Elevated LFTs Fatty liver disease, nonalcoholic Gall stone HLD (hyperlipidemia) HTN (hypertension) Nonsustained paroxysmal ventricular tachycardia NSTEMI (non-ST elevated myocardial infarction) Obesity DEEPALI (obstructive sleep apnea) RLS (restless legs syndrome) Vertigo Vitamin D deficiency Surgical History?(Updated 04/17/22 @ 13:13 by Enedina Michelle) Colonoscopy - MAC (03/27/17) Coronary Stent 9 stents. Last placement on 02/11/16Excision, Distal Clavicle (05/11/15) DR BROWN/LEFTHistory of umbilical hernia repair Rotator Cuff Repair (05/11/15) Status post amputation of lesser toe of right foot Fifth toe was removedStatus post carpal tunnel release of both wrists Social History/Home Situation: Retired, , lives in a modified trailer in [place]. His bathroom has a walk-in shower flexible hose and shower chair. 3 steps entering the home with 2 railings Current Functional Limitations: Was independent with all ADLs including driving prior to surgery today. He currently is independent with assuming the supine and sitting and standing positions and vice versa. Equipment Owned/DME: Wheeled walker Subjective: Patient complains of mild discomfort throughout the anterior lateral aspect left hip with movement and weightbearing activities. Objective: [] General Observation: Pleasant, cooperative Mental Status: Alert and oriented x3 Pain: Mild anterior lateral left hip discomfort at 3/10 on a VAS. His preop pain is resolved ROM: Is good functional range of motion throughout his articular structures without pain on movement. His left hip flexions at 90 degrees when in the sitting position, and rotation is at 30 to 40 degrees when hip is flexed at 45 degrees. Strength: And strength is generally rated 5/5 throughout except his left hip musculature and quads at 3/5 Neuro: Intact. He is able to dorsi and plantarflex his ankles and digits Bed Mobility/Transfers: Independent with assuming the supine to sitting to standing positions and vice versa. Also transferring into a chair. Gait: Ambulated with a FWW approximately 100 feet, partial weightbearing as tolerated on the left lower extremity with a stable gait. I provided minimal contact guarding for its protection purposes. He is able to a send and descend 3 steps with railing in a safe manner Balance: Static Sitting: Stable Dynamic Sitting: Stable Static Standing: Stable Dynamic Standing: Stable Informed Consent/Education: Patient instructed in purpose of PT consult and plan of care. Assessment: Patient is a 66year old male referred to physical therapy services with the diagnosis of status post left CARLITO. Patient presents with clinical signs and symptoms consistent with this diagnosis, as demonstrated by the following impairment level findings: Controlled movements with his left lower extremity but independent ambulator with a wheeled walker and independent with his bed mobility I expect this to improve each day over the next 1 to 2 weeks. Patient is assessed as a Moderate 74258 complexity based on the following: History: See comorbidities and social history Examination: See above for functional limitations and impairments Presentation: Evolving Decision Making: Moderate complexity based on his medical history Goals: Goals of independent bed mobility, ambulation with wheeled walker and stair climbing have been achieved Plan of Care/Treatment Plan: The session consisted of the evaluation, patient education, and instructing her home program consisting of quad and gluteal sets and ankle pumping. A handout was issued. I also instructed him in bed mobility activities along with gait training with a wheeled walker, partial weightbearing as tolerated. He also ascended and descended stairs. DISCHARGE RECOMMENDATIONS: Home with no services TREATMENT CODE/TIME: 9716 2/45 minutes Disclaimer: This note was created using [employer] voice recognition software. It was reviewed for major content. However, there may be multiple small discrepancies and errors due to the voice recognition aspects of the software.
--- NOTE | 2022-04-22 13:24 | W.ANESPOSTOP ---
Postoperative Evaluation Date, Time and Location Date Performed: 04/22/22 Time Performed: 12:15 Patient Location: Day Surgery Unit Vital Signs Most Recent Imported Vital Signs: Most Recent Vital Signs Temp Pulse Resp BP Pulse Ox 35.7 C L 78 16 113/60 97 04/22/22 12:59 04/22/22 12:59 04/22/22 12:59 04/22/22 12:59 04/22/22 12:59 Pain Score Most Recent Pain Score: Most Recent Pain Score Pain Level 5 04/22/22 12:59 Assessment Mental Status: Awake (Alert & Oriented to Patient Baseline) Airway and Respiratory Function: Patent airway with normal (patient baseline) respiratory exam Cardiovascular Function: Hemodynamically Stable Hydration Status: Adequately Hydrated Nausea & Vomiting: No Nausea or Vomiting Pain: Pain is tolerable per patient Peripheral Nerve Block: Patient did not receive a nerve block
--- NOTE | 2022-04-22 21:55 | W.PM.OP ---
Date of service: 04/22/22 Time of Service: 10:40 Operative Note Operative Note DATE OF PROCEDURE: 04/22/22 PRE-OP DIAGNOSIS: Left Hip Osteoarthritis POST-OP DIAGNOSIS: same PROCEDURE: Left Anterior Total Hip Arthroplasty with Intraoperative Navigation SURGEON: Varun Evans ANESTHESIA TYPE: Spinal Refer to Anesthesia Record ESTIMATED BLOOD LOSS: 150 PATHOLOGY: none sent TOURNIQUET TIME: 0 COMPLICATIONS: None Patient was transported to: PACU Patient's condition: stable Implants: 1. Depuy Burgess Acetabular Component, 56mm 2. Depuy Acetabular Liner, [id number] 3. Depuy Actis High Offset Collared Femoral Stem, Size 6 4. Depuy Altrx Ceramic Femoral Head, Size 36+5mm Indications: I have seen Raul in clinic for symptoms of hip arthritis, confirmed with radiographic findings. He has exhausted nonoperative methods and was having significant limitations in daily function and desired better function and less pain. I discussed the technical details of a hip replacement. I explained the risks of the procedure to include, but not limited to, bleeding, infection, pain, stiffness, fracture, damage to nerves and vessels, damage to muscles and tendons, loosening, instability, leg length inequality, need for repeat procedure, blood clot and cardiopulmonary demise. Despite these risks, Raul elected to proceed. Findings: There was significant signs of arthritis throughout the hip. Procedure Description: Raul was greeted in the preoperative holding area where the correct side was identified and marked. The consent was reviewed with the patient and signed. The history and physical was updated. All questions were answered. He was taken back to the operating room. A spinal anesthestic was then administered. The feet were wrapped with cast padding and Coban and then placed into the boot liners and then into the boots. Care was taken to protect the skin and make sure the heels were fully down and the boots were stable. The patient was then positioned onto the HANA table. Both legs were held in a neutral position. SCDs were applied. The patient was then slid down onto a peroneal post. Prophylactic antibiotics in the form of Cefazolin were administered. 1g of Tranxemic Acid was given intravenously within 30 minutes of incision. The left leg was then prepped with Chloraprep and draped in a standard fashion. A second prep with Chloraprep was performed prior to placement of a shower-curtain type drape with Iodine impregnated skin protection. A timeout to confirm correct identity, side and site, procedure, allergies, anesthesia, and medical concerns was performed. An obliquely oriented incision was made starting lateral to the ASIS and running distal over the Tensor Fascia Patty (TFL) muscle belly toward the fibular head, approximately 10cm. The skin and soft tissue was dissected sharply, through David?s fascia, and to the fascia of the TFL. With the fascia and superior border of the IT band identified, the fascia was incised with a new knife just above any perforators from the IT band. The TFL muscle belly was bluntly dissected away from the fascia and moved laterally. The fat between TFL and rectus was identified to ensure the dissection was not within the TFL. Blunt dissection created space between abductors and the capsule and retractor was placed over the lateral femoral neck. The fibers of the rectus femoris tendon were identified and these were freed from the anterior capsule. A second cobra retractor was placed around the medial femoral neck. The TFL was further retracted laterally to show the deep fascia. Careful dissection through this layer identified three main crossing vessels of the lateral femoral circumflex. These were cauterized in multiple locations and then cut without any noticeable bleeding. The TFL was further released bluntly from the deep fascia to expose anterior hip capsule and fat The Hernan orthopaedic retractor was then placed beneath the TFL and against sartorius and medial soft tissues to protect and retract the soft tissues. A T-capsulotomy was then performed starting at the superior lateral acetabulum and moving distally to the intertrochanteric ridge. These capsular flaps were tagged with a No. 1 Ethibond and elevated from within. The capsular flaps were released to the shoulder of the lateral neck and to the lesser trochanter to give excellent visualization of the proximal femur. A neck osteotomy was performed using an oscillating saw based on preoperative templates. This cut started in the shoulder and of the lateral neck and exited medially. The saw was at all times directed medially to avoid injury to the greater trochanter. Gross traction was applied to the leg and the osteotomy opened. The femoral head was removed with a corkscrew, making sure to protect the TFL on its exit. Traction was released after head removal. This was measured on the back table to determine the starting reamer size. Portions of the rectus obscuring visualization were minimally elevated off the superior acetabulum. An anterior retractor was placed over the anterior wall between capsule and labrum and attached to the Gripper retraction system. The femur was rotated to 90 degrees and medial capsule was fully released until the lesser trochanter was palpable and visible; the femur was returned to 30 degrees. A posterior retractor was placed similarly between capsule and labrum. This provided excellent visualization. The contents of the cotyloid fossa were removed with electrocautery and the labrum was removed with a knife. There was a notable floor osteophyte. There was significant chondromalacia of the superior acetabulum. Acetabular reaming began with a 52mm reamer. This first reaming was directed anterior to posterior and medial to get down to the true floor. This was inspected and reamed until the true floor was reached. The anterior retractor was then released and entry and exit was provided by traction on the capsular flaps. I then reamed sequentially up to a 56mm reamer where good fit was obtained. The larger reamers were oriented based on anatomical reference of the anterior and lateral vo to ensure proper abduction and anteversion. Positioning and size was confirmed with the fluoroscopy. A 56mm Depuy Burgess acetabular component was selected. The acetabulum was reamed around the periphery with the selected acetabular size to prevent a rim fit. The deep tissues were irrigated. The acetabular component was then impacted in a position of about 40-45 degrees of abduction and 15-20 degrees of anteversion, using the patient?s anatomy as the ultimate landmark. Fluoroscopy was used to confirm this. There was excellent orange picker machine operator of the acetabular component and the inserting handle was removed. The acetabular liner, Depuy [id number] polyethylene liner, was inserted and lined up with the tines of the acetabular component. There was no soft tissue interposition. The liner was then impacted into position and confirmed to be well-seated. A portion of the michael-articular cocktail was then injected around the acetabulum into the capsule and periosteum. This cocktail consisted of 123mg of Ropivacaine, 0.25mg of Epinephrine, 0.04mg of Clonidine, and 15mg of Ketorolac, diluted to 50cc. The leg was rotated to 120 degrees. Any remaining medial capsule was released until the lesser trochanter was easily palpable. A retractor was placed medially. The lateral capsule was further released into the shoulder to allow access to the greater trochanter. A Greene retractor was placed over the greater trochanter which allowed the trochanter to flip in front of the capsule for excellent exposure. The leg was brought down into maximal extension and 20 degrees of adduction while ensuring there was no impingement on the acetabulum. Any remnant capsule within the trochanter was released. Piriformis and obturator externis were identified and protected. There was excellent access to the proximal femur. The lateral neck remnant was removed with a rongeur. A blunt canal probe was used to identify the canal and trajectory for later broaching. A box osteotome initiated the broach course. A small curved rasp and a curved curette were used to work laterally. Broaching then began with a starter Actis broach. This was inserted manually around the trochanter and into the canal before mallet blows. The broach was seated to a few millimeters below the cut level based on the neck cut and the preoperative template. Sequential broaching was continued with the Corrigo pneumatic broaching device until a tight fit was obtained with good rotational control of the femur. A trial Actis high offset neck was inserted along with a +5 trial head. The leg was brought out of extension and adduction and then reduced with traction and internal rotation. The leg was stable anteriorly in a position of 30 degrees of extension and 90 degrees of external rotation. Fluoroscopy was used to ensure there was no fracture and the stem was seated well. Leg lengths were checked with an AP pelvis and pelvic reference points. [employer] navigation system was used to confirm appropriate positioning and leg length and offset. Once content with the desired offset and leg lengths, the leg was brought back into extension, external rotation and adduction. The periosteum and surrounding tissue was injected with remaining portion of the michael-articular cocktail. The proximal femur was irrigated as well as the deep tissues. The Depuy Actis high offset collared stem, size 6, was then manually inserted into the proximal femur making sure to control rotation. It was then malleted into position with light blows, giving breaks to allow bone expansion and decrease risk of fracture. The selected Depuy Altrx Ceramic Head, size 36+5mm, was then placed onto the clean and dry trunnion and secured with impaction onto the tapered fit. The leg was brought back out of extension and adduction and reduced with traction and internal rotation. Stability was confirmed with no shuck at 90 degrees of external rotation and 30 degrees of extension. No impingement through range of motion arc. Final x-ray images were obtained with fluoroscopy to confirm adequate positioning and no intraoperative fracture. The deep tissues were thoroughly irrigated with Surgiphor, betadine solution. This was allowed to sit in the wound for 3 minutes before being thoroughly irrigated out with normal saline. The capsule was then reapproximated with the previously placed Ethibond sutures. The TFL fascia was finally closed with a No. 2 Stratafix, barbed suture. Deep tissues were then reapproximated with 0 Vicryl and a running 2-0 Vicryl. The skin was closed with a running 4-0 Monocryl in a subcuticular fashion. This was reinforced with skin glue. A Mepilex silver dressing was applied. At the end of the case, all counts were correct. Raul was transferred to the hospital bed without difficulty and suffering no apparent complication. Raul has a good prognosis. Physical therapy will start today and without restrictions, weight-bearing as tolerated. Aspirin 81mg BID will be used for DVT prophylaxis.
== END 2022-04-22 13:50 | disposition home or self-care (01) ==
PROVIDERS: PCP Nurse Practitioner Family; Visit Provider Student in an Organized Health Care Education/Training Program
PROC: (CPT 27130; principal; 2022-04-22 09:15)
DX: M16.12 Unilateral primary osteoarthritis, left hip (principal); E11.9 Type 2 diabetes mellitus without complications; I10 Essential (primary) hypertension; Z79.4 Long term (current) use of insulin
CPT/HCPCS: 20985; 27130; C1776; 97163; 73501; J0690; J1100; J1170; J2250; J2405

== ENCOUNTER 2022-05-05 09:54 | Outpatient (CLI) | payer MEDICARE, BC, SELFPAY ==
--- NOTE | 2022-05-05 09:30 | DI.RAD_ITS ---
Exam(s) XR HIP LT COMPLETE AP PELVIS EXAM: XR HIP LT COMPLETE AP PELVIS CLINICAL HISTORY: L THR. TECHNIQUE: 2D digital imaging was performed. Two images were obtained. AP pelvis and lateral views were obtained. COMPARISON: CR XR HIP LT COMPLETE AP PELVIS from 03/17/2022 XA XR HIP LT IN OR from 04/22/2022 FINDINGS: BONES: There are stable post operative changes present. No fracture or dislocation. JOINTS: The orthopedic hardware is in good position. Mild degenerative changes are seen in the right hip. SOFT TISSUE: Atherosclerosis is present. IMPRESSION: Stable postoperative changes. DATA REPOSITORY: RADIATION DOSE DELIVERED:
== END 2022-05-05 09:55 | disposition home or self-care (01) ==
LOC: DIORS 09:55
PROVIDERS: PCP Nurse Practitioner Family; Referring Provider Nurse Practitioner Family; Visit Provider Physician Assistant
DX: Z96.642 Presence of left artificial hip joint (principal); Z47.1 Aftercare following joint replacement surgery
CPT/HCPCS: 73502

== ENCOUNTER 2022-05-08 14:03 | Outpatient (CLI) | payer MEDICARE, BC, SELFPAY ==
[2022-05-08 13:46] LABS: COMMENT (LAB VIEW ONLY) 65.47 mg/dL; Microalb ug/mg Crea 9.8 ug/mg Cr
[2022-05-08 13:58] LABS: TSH 1.32 uIU/mL (0.36-3.74)
== END 2022-05-08 14:04 | disposition home or self-care (01) ==
LOC: LBO 14:04
PROVIDERS: PCP Nurse Practitioner Family; Visit Provider Internal Medicine Endocrinology, Diabetes & Metabolism
DX: E11.65 Type 2 diabetes mellitus with hyperglycemia (principal)
CPT/HCPCS: 36415; 82043; 82570; 84443

== ENCOUNTER 2022-06-02 09:56 | Outpatient (CLI) | payer MEDICARE, BC, SELFPAY ==
--- NOTE | 2022-06-02 09:45 | DI.RAD_ITS ---
Exam(s) XR KNEE LT 3V AP,LAT,INGA EXAM: XR KNEE LT 3V AP,LAT,INGA CLINICAL HISTORY: pain in left knee. TECHNIQUE: 2D digital imaging was performed. Three views. COMPARISON: No exams were available for comparison FINDINGS: BONES: No acute fracture is present. No bony destructive lesion is seen. Are small patellar enthesop hytes. Enthesophyte is also noted at the tibial tubercle. JOINTS: The knee is normally aligned. No joint effusion is seen. Joint spaces are maintained. There is minimal spurring at the articular aspect of the patella. SOFT TISSUE: Vascular calcifications. IMPRESSION: Mild degenerative changes. DATA REPOSITORY: RADIATION DOSE DELIVERED:
== END 2022-06-02 09:57 | disposition home or self-care (01) ==
LOC: DIORS 09:56
PROVIDERS: PCP Nurse Practitioner Family; Referring Provider Nurse Practitioner Family; Visit Provider Physician Assistant Surgical
DX: Z47.1 Aftercare following joint replacement surgery (principal); Z96.642 Presence of left artificial hip joint
CPT/HCPCS: 73562

== ENCOUNTER 2022-06-03 10:31 | Outpatient (REF) | payer MEDICARE, BC, SELFPAY ==
[2022-06-03 14:48] LABS: ALT 58 U/L (16-63); AST 31 U/L (15-37); Albumin 3.9 g/dL (3.4-5.0); Alkaline Phosphatase 97 U/L (46-116); Amylase 76 U/L (25-115); Anion Gap 9.2 mmol/L (3-11); BUN 17 mg/dL (7-18); Bilirubin, Total 0.7 mg/dL (0.2-1.0); CO2 29.8 mmol/L (21.0-32.0); Calcium 9.5 mg/dL (8.5-10.1); Chloride 101 mmol/L (98-107); Estimated GFR 82.49 (mL/min/1.73m2); Glucose 199 mg/dL (74-106); Lipase 253 U/L (73-393); Potassium 4.5 mmol/L (3.5-5.1); Sodium 140 mmol/L (136-145); Total Protein 7.6 g/dL (6.4-8.2)
== END 2022-06-03 10:32 | disposition home or self-care (01) ==
LOC: NCHCN 10:31
PROVIDERS: PCP Nurse Practitioner Family; Visit Provider Nurse Practitioner Family
DX: K76.0 Fatty (change of) liver, not elsewhere classified (principal); I10 Essential (primary) hypertension
CPT/HCPCS: 80053; 83690; 82150

== ENCOUNTER → 2022-06-17 02:47 | Outpatient (CLI) | payer MEDICARE, BC, SELFPAY ==
--- NOTE | 2022-06-17 | DI.US_ITS ---
Exam(s) US ABDOMEN EXAM: US ABDOMEN CLINICAL HISTORY: NAUSEA R11.0 GALLSTONE K80.20 TECHNIQUE: Ultrasound abdomen performed using standard protocol. COMPARISON: US US ABDOMEN LIMITED from 02/21/2022 FINDINGS: ABDOMINAL AORTA AND IVC: Visualized portions normal caliber. PANCREAS: Normal where visualized. LIVER: There is diffuse increased echogenicity of the liver consistent with fatty infiltration. The liver measures 20.6 cm long. Hepatopedal flow in the Portal Vein. GALLBLADDER:There is an 8 mm mobile stone in the gallbladder. No evidence of wall thickening. No per icholecystic fluid identified. BILIARY SYSTEM: Common bile duct measures < 7 mm. No intrahepatic biliary ductal dilation. WOMACK'S SIGN: Negative. KIDNEYS: Kidneys are symmetric in size. No evidence of renal calculi. No evidence of hydronephrosis. There is a 3.3 cm simple right renal cyst. SPLEEN: Not enlarged. ASCITES: None seen. IMPRESSION: 1. Cholelithiasis. No biliary ductal dilatation. 2. Hepatic steatosis and hepatomegaly. DATA REPOSITORY:
== END ==
PROVIDERS: PCP Nurse Practitioner Family; Visit Provider Nurse Practitioner Family
DX: K80.20 Calculus of gallbladder without cholecystitis without obstruction (principal); K76.0 Fatty (change of) liver, not elsewhere classified; R16.0 Hepatomegaly, not elsewhere classified
CPT/HCPCS: 76700

== ENCOUNTER → 2022-06-30 09:05 | Outpatient (BNVA) | payer MEDICARE, BC, SELFPAY | PROVIDERS: PCP Nurse Practitioner Family; Referring Provider Nurse Practitioner Family; Visit Provider Surgery | DX: K80.20 Calculus of gallbladder without cholecystitis without obstruction (principal); K52.9 Noninfective gastroenteritis and colitis, unspecified; I87.2 Venous insufficiency (chronic) (peripheral); I10 Essential (primary) hypertension; E11.9 Type 2 diabetes mellitus without complications | CPT/HCPCS: 99214; 99243 ==

== ENCOUNTER → 2022-07-15 10:48 | Outpatient (BNVA) | payer MEDICARE, BC, SELFPAY | PROVIDERS: PCP Nurse Practitioner Family; Referring Provider Nurse Practitioner Family; Visit Provider Physician Assistant | DX: Z47.1 Aftercare following joint replacement surgery (principal); Z96.642 Presence of left artificial hip joint ==

== ENCOUNTER → 2022-07-18 11:50 | Outpatient (BNVA) | payer MEDICARE, BC, SELFPAY | PROVIDERS: PCP Nurse Practitioner Family; Referring Provider Nurse Practitioner Family; Visit Provider Surgery | DX: K80.20 Calculus of gallbladder without cholecystitis without obstruction (principal); K82.9 Disease of gallbladder, unspecified; K52.9 Noninfective gastroenteritis and colitis, unspecified; I25.10 Atherosclerotic heart disease of native coronary artery without angina pectoris | CPT/HCPCS: 99212; 99213 ==

== ENCOUNTER 2022-07-22 13:27 | Outpatient (REF) | payer MEDICARE, BC, SELFPAY ==
[2022-07-22 16:54] LABS: Calculated LDL 70 mg/dL (<100); Cholesterol 154 mg/dL (<200); HDL Cholesterol 50 mg/dL (40-60); Triglyceride 174 mg/dL (<150)
== END 2022-07-22 13:28 | disposition home or self-care (01) ==
LOC: NCHCN 13:27
PROVIDERS: PCP Nurse Practitioner Family; Visit Provider Nurse Practitioner Family
DX: E78.5 Hyperlipidemia, unspecified (principal)
CPT/HCPCS: 80061

== ENCOUNTER 2022-08-05 08:19 | Day surgery (SDC) | payer MEDICARE, BC, SELFPAY ==
[2022-08-05] VITALS (9 sets, daily range): BP systolic 105–144; BP diastolic 53–75; PULSE 68–75; RESP 16–27; TEMP 36.4–36.8; O2SAT 94–99; BMI 34.2
[2022-08-05] MEDS: Lactated Ringers 1,000 ML 80 ML IV (08:20)
[2022-08-05] MEDS: Gabapentin 300 MG CAP 600 MG PO (08:48)
[2022-08-05] MEDS: Acetaminophen 500 MG TAB 1000 MG PO (08:48)
--- NOTE | 2022-08-05 08:51 | PDOC.DSDIS_ITS ---
Date of service: 08/05/22 Time of Service: 08:51 Discharge Plan Disposition Patient Disposition: Home Condition: Good Discharge Details Reason For Visit: Cholecystectomy Attending Provider: Zeke Romero Primary Care Provider: Denise Hooker Home Meds and New Rx's Prescriptions: No Action Trulicity 0.75 mg/0.5 mL pen injector 0.75 mg subcut QWEEK multivitamin Tablet 1 tab PO DAILY insulin lispro protamin-lispro [Humalog Mix 75-25 KwikPen] 100 unit/mL (75-25) insulin pen 44 unit subcut BID Rx Instructions: 44 units Q AM and 40 units Q PM ranolazine 500 mg tablet extended release 12 hr 500 mg PO BID metformin 500 mg tablet 1,000 mg PO BID clotrimazole 1 % cream 1 applic topical BID cholecalciferol (vitamin D3) 25 mcg (1,000 unit) capsule 25 mcg PO DAILY nitroglycerin 0.4 MG tablet, sublingual 0.4 mg Sublingual PRN PRN metoprolol succinate [Toprol XL] 100 MG tablet extended release 24 hr 150 mg PO QAM lisinopril 5 MG tablet 5 mg PO QAM amlodipine 10 MG tablet 10 mg PO QAM rosuvastatin [Crestor] 40 MG tablet 40 mg PO DAILY Farxiga 5 mg tablet 5 mg PO DAILY Label Comments: TAKE ONE TABLET BY MOUTH EVERY DAY trazodone 50 mg Tablet 50 mg PO QHS acetaminophen 500 mg tablet 1,000 mg PO TID Qty: 90 3RF Discharge Instructions Instructions: Laparoscopic Cholecystectomy (GEN) Additional Instructions: 1. Resume all of your medications. 2. Okay to use tylenol and ibuprofen over the counter as needed. Use oxycodone as needed for pain, like we talked about in the preoperative area. 3. Okay to use heating pads and cold packs in the area for your comfort as well. 4. Leave bandage in place for 24 hours, then remove. 5. Shower with warm soapy water. Pat dry. Use a bandaid if needed to protect your clothing. 6. No soaking or tub baths until I see you in the office. 7. No heavy lifting until I see you in the office. 8.Call the office (or go directly to the emergency room after hours) if you notice any of the following: Develop chills (warm to touch), or if you have a thermometer and your temperature is above 101 Difficulty breathing or difficultly swallowing Persistent vomiting Any bleeding ? exceeding one tablespoon 6. Call your physician if the site where your intravenous was started becomes red, swollen, painful, and warm to touch. Referrals: Zeke Romero MD [ [facility] ST[facility]FF PHYSICIAN] - Activity:: No heavy lifting Remove Dressings/Wound Care:: 24 hours Shower/Bathe:: 24 hours Diet:: As Tolerated Discharge Orders Discharge Orders: Discharge Order (Routine); Ordered 08/05/22 Ordered By: Zeke Romero DS: Diagnosis Discharge Diagnosis (1) Gall stone: Asessment and Plan: Raul, we were able to remove your gallbladder with the laparoscope today. The surgery went very well. Follow the instructions attached here, and we look forward to seeing you in the office.
--- NOTE | 2022-08-05 08:53 | ROE_ITS ---
Date of service: 08/05/22 Time of Service: 11:07 Operative Note Operative Note DATE OF PROCEDURE: 08/05/22 PRE-OP DIAGNOSIS: Cholelithiasis with biliary colic POST-OP DIAGNOSIS: same PROCEDURE: Laparoscopic cholecystectomy SURGEON: Zeke Romero HOME ATTENDANT: Triny Jaquez ANESTHESIA TYPE: General LMA/ETT Refer to Anesthesia Record ESTIMATED BLOOD LOSS: 50 PATHOLOGY: other (Gallbladder) COMPLICATIONS: None Patient was transported to: PACU Patient's condition: stable Indications: Raul is a 66-year-old male whose had multiple episodes of midepigastric discomfort and nausea. He underwent an ultrasound of the gallbladder that demonstrated cholelithiasis Procedure Description: After satisfactory induction of general anesthesia, I prepped and draped the abdomen in usual fashion. Because of his previous umbilical hernia, I elected to gain entry into the peritoneum in the left upper quadrant, over Loaiza's point. I anesthetized the skin, made a small incision, and then using an optical trocar, I advanced through the skin, subcutaneous fat, weak muscles, and into the peritoneum under the direct vision of the laparoscope. I then insufflated the peritoneal cavity. Next I inserted a 5 mm 30 degree scope and examined the underlying viscera. There was no evidence of injury created upon entry. I turned my attention to the umbilical space. There was an adhesion at the umbilicus associated with his previous mesh. There was a clear area above the umbilicus. I incised the skin in the midline, and dissected down entering into the peritoneal cavity under the vision of the laparoscope. Next I inserted a 12 mm Zambrano trocar here. I then placed the patient in some reverse Trendelenburg and left side down positioning. Then, with the assistance of the laparoscope, I used local anesthetic to anesthetize the midepigastric and 2 right upper quadrant port sites. Under the vision of the laparoscope, I passed 3 more 5 mm ports. I then grasped the gallbladder fundus and elevated cephalad. I began by dissecting the gallbladder infundibulum. I worked in a lateral to medial fashion. Once I skeletonized the cystic duct and cystic artery, with a satisfactory critical view of safety, I doubly clipped and divided them. I then used electrocautery to dissect the gallbladder off the gallbladder fossa. I passed the gallbladder into an Endo Catch bag and removed it by way of the umbilical site. I examined the surgical field. It was hemostatic. I then coral corina the 5 mm ports under the vision of the laparoscope. Finally, I removed the umbilical port site and closed the fascia with Vicryl stitches. Sites were irrigated, and the skin was closed with subcuticular stitches. Bandages were applied, patient was awakened from anesthesia, and transferred to the recovery unit.
[2022-08-05] MEDS: ceFAZolin 2 GM/50 ML BAG IVPB (09:29)
[2022-08-05] MEDS: Bupivacaine 0.25% Pres-Free 10 ML VIAL (09:47)
--- NOTE | 2022-08-05 09:53 | W.ANESPRE ---
General Info Date of Service Date Performed: 08/05/22 Height: 5 ft 9 in Weight: 105 kg Body Mass Index (BMI): 34.2 Surgical Procedure: Operation Date: 08/05/22 11:40 Proposed Procedure Side Surgeon p Cholecystectomy Laparoscopic possible Open Zeke Romero MD Actual Procedure Side Surgeon p Cholecystectomy Laparoscopic Not Applicable Zeke Romero MD Pre-Op Diagnosis Post-Op Diagnosis Gall stone Gall stone Meds Allergies and Home Medications Allergies Allergy/AdvReac Type Severity Reaction Status Date / Time isosorbide AdvReac Verified 08/05/22 08:40 Home Medication Medication Instructions Recorded amlodipine 10 mg tablet 10 mg PO QAM 07/23/14 lisinopril 5 mg tablet 5 mg PO QAM 07/23/14 metoprolol succinate 100 mg 150 mg PO QAM 07/23/14 tablet,extended release 24 hr (Toprol XL) nitroglycerin 0.4 mg sublingual 0.4 mg sublingual PRN PRN 07/23/14 tablet rosuvastatin 40 mg tablet (Crestor) 40 mg PO DAILY 07/23/14 trazodone 50 mg tablet 50 mg PO QHS 12/01/18 dapagliflozin 5 mg tablet (Farxiga) 5 mg PO DAILY 03/18/20 insulin lispro protamine-lispro 44 unit subcut BID 02/04/22 100 unit/mL (75-25) subcutaneous pen (Humalog Mix 75-25 KwikPen) metformin 500 mg tablet 1,000 mg PO BID 02/04/22 ranolazine 500 mg tablet,extended 500 mg PO BID 02/04/22 release,12 hr multivitamin 1 tab PO DAILY 04/17/22 acetaminophen 500 mg tablet 1,000 mg PO TID #90 tabs 04/22/22 cholecalciferol (vitamin D3) 25 25 mcg PO DAILY 05/22/22 mcg (1,000 unit) capsule clotrimazole 1 % topical cream 1 applic topical BID 05/22/22 dulaglutide 0.75 mg/0.5 mL 0.75 mg subcut QWEEK 07/18/22 subcutaneous pen injector (Zackery) Current Visit Medications: Current Medications Generic Name Dose Route Start Last Admin Trade Name Freq PRN Reason Stop Dose Admin Acetaminophen 1,000 mg 08/05/22 06:00 08/05/22 08:48 Acetaminophen 500 Mg Tab PO 08/05/22 16:00 1,000 mg PREOP HILARIO Administration Gabapentin 600 mg 08/05/22 06:00 08/05/22 08:48 Gabapentin 300 Mg Cap PO 08/05/22 16:00 600 mg PREOP HILARIO Administration Hydromorphone HCl 0.2 mg 08/05/22 08:55 Hydromorphone 2 Mg/Ml Syr IVP Q1H PRN PRN Ringer's Solution 1,000 mls @ 80 mls/hr 08/05/22 06:00 IV 09/03/22 23:59 INFUSION HILARIO Cefazolin Sodium/Dextrose 2 gm in 50 mls @ 100 mls/hr 08/05/22 06:00 Ancef Duplex IVPB 08/05/22 16:00 PREOP HILARIO IV Miscellaneous Supplies 1 each 08/05/22 06:00 Iv Access IV 09/03/22 23:59 DIRECTED HILARIO Oxycodone HCl 5 mg 08/05/22 08:55 Oxycodone 5 Mg Tab PO Q3H PRN PRN Pain Sodium Chloride 0 ml 08/05/22 06:00 Normal Saline Flush 10 Ml Syr IV 09/03/22 23:59 PRN PRN Sodium Chloride 0 ml 08/05/22 06:00 Normal Saline 10 Ml Vial IJ 09/03/22 23:59 DIRECTED PRN Sterile Water 0 ml 08/05/22 06:00 Water,Injection,Sterile 10 Ml Vial IJ 09/03/22 23:59 DIRECTED PRN PFSH Active Problems Active Problems: Problem Status Onset Code Chronic diarrhea K52.9 Venous stasis dermatitis of left lower extremity I87.2 Screening for colon cancer Z12.11 Essential hypertension I10 Atherosclerotic heart disease enterprise coronary artery w/angina pectoris I25.119 Diabetes mellitus type 2 in obese E11.9, E66.9 Long-term insulin use in type 2 diabetes E11.9, Z79.4 Tubular adenoma of colon 03/27/17 D12.6 Coronary artery disease I25.10 Non-sustained ventricular tachycardia I47.2 Medical History Medical History Adenomatous colon polyp Depression Depression with anxiety Diarrhea DM (diabetes mellitus) Elevated LFTs Fatty liver disease, nonalcoholic Gall stone HLD (hyperlipidemia) HTN (hypertension) Nonsustained paroxysmal ventricular tachycardia NSTEMI (non-ST elevated myocardial infarction) 02/2020 Obesity DEEPALI (obstructive sleep apnea) RLS (restless legs syndrome) Unstable angina Vertigo Vitamin D deficiency Surgical History Surgical History Colonoscopy - MAC (03/27/17) Coronary Stent 9 stents. Last placement on 02/11/16 Excision, Distal Clavicle (05/11/15) DR BROWN/LEFT History of total left hip replacement (04/22/22) History of umbilical hernia repair Rotator Cuff Repair (05/11/15) Status post amputation of lesser toe of right foot Fifth toe was removed Status post carpal tunnel release of both wrists Tobacco Smoking/Tobacco Use Status: Former Tobacco Use Alcohol Alcohol Intake: never Substance Use Substance use: Daily Substance use type: other Details: uses 0.5-1 THC gummy HS Vital Signs and Lab Results Vital Signs Most Recent Vital Signs in EMR: Most Recent Vital Signs Temp Pulse Resp BP Pulse Ox 36.5 C 75 16 144/75 H 98 08/05/22 08:19 08/05/22 08:19 08/05/22 08:19 08/05/22 08:19 08/05/22 08:19 Point of Care Results Point of Care Results: Finger Stick Blood Glucose 152 08/05/22 09:22 Lab Results Blood Type / Crossmatch: No Data to Display Complete Blood Count: No Data to Display Complete Metabolic Panel: No Data to Display Liver Function Panel: No Data to Display Coagulation Panel: No Data to Display Cardiac Panel: No Data to Display Arterial Blood Gas: No Data to Display Venous Blood Gas: No Data to Display Pancreas Panel: No Data to Display Thyroid Panel: No Data to Display Infectious Disease: No Data to Display Blood Cultures: No Data to Display Toxicology Panel: No Data to Display Imaging and Studies Imaging and Studies Study information below may be from another EMR and interpreted by another provider. Please see original notes in EMR for more complete details. EKG Summary: DATE/TIME OF SERVICE: 02/28/22909 : 1955PERFORMING LOCATION: .CARD APPROVED REPORT Exam: Resting ECG Reason for Exam: NSVT CAD Patient Location: O HR:72 bpm ECG Measurements Heart Rate [address] 184 P 50 QRSd 110 QRS 92 QT 385 T10 QTc 422 Conclusion Sinus rhythm...normal P axis, V-rate 50- 99 Right axis deviation...QRS axis ( 91,269) Echocardiogram Summary: 03/19/20: [facility]: Left VentricleThe left ventricular cavity was normal in size. Left ventricular systolic function was normal with an ejection fraction of 55-60%. Left ventricular diastolic parameters were not diagnostic. Left ventricular wall thickness was normal. Left ventricular wall motion was normal; there were no regional wall motion abnormalities. Right VentricleThe right ventricular cavity was normal in size. Right ventricular systolic function was normal. Right ventricular wall thickness was normal. Left AtriumThe left atrium was normal in size. Right AtriumThe right atrium was normal in size. Aortic ValveThe aortic valve structure was trileaflet. The aortic leaflets were not thickened. There was no aortic valve stenosis. There was no aortic valve regurgitation. Mitral ValveMitral valve structure was normal. There was no significant mitral valve stenosis or regurgitation. Tricuspid ValveTricuspid valve structure was normal. There was no tricuspid valve regurgitation. There was no tricuspid valve stenosis. Pulmonic ValveThere was no pulmonic valve regurgitation. There was no pulmonic valve stenosis. Pulmonic ArteryUnable to assess PA pressure. Ascending AortaThe aorta was normal in size. PericardiumThere was no pericardial effusion. IVC/SVCThe inferior vena cava was normal in size. Cardiac Catheterization Summary: 03/19/20: [facility]: CORONARY ARTERIES: The coronary circulation is right dominant. Left main: Minor luminal irregularities. LAD: Proximal vessel lesion: There is a 30% stenosis. Patent stents with minimal ISR. Slow flow initially with rapid improvement to normal with IC NTG. Ramus intermedius: Minor luminal irregularities. Left circumflex: Proximal vessel lesion: There is a 30% stenosis. Distal vessel lesion: There is a 50% stenosis. unchanged. Right coronary: Proximal vessel lesion: There is minimal in-stent restenosis. Anesthesia Assessment and Plan Anesthesia History Personal History: No History of Anesthesia Complications Family History: No Family History of Anesthesia Complications Exercise Tolerance Exercise Tolerance: Metabolic Equivalents>4 Pertinent Negatives Pertinent Negatives: No Symptoms of GERD, No Major Pulmonary Symptoms or Complaints and No History of CVA/TIA Cardiac & Pulmonary Exam Cardiac Exam: Normal S1/S2 Heart Sounds Pulmonary Exam: Clear Bilateral Breath Sounds Implantable Cardiac Device Does patient have a Pacemaker or an ICD?: No Airway Exam Known Difficult Airway: No Mallampati Class: 3 Mouth Opening: Normal (> 3cm) Thyromental Distance: Greater than 3 cm Neck Range of Motion: Full ROM Neck Circumference: Normal Teeth Condition: Normal Dentition ASA Classification ASA Score: ASA 3 Emergency Case?: No NPO Status NPO Status: NPO Clears >2 hours, Solids >8 hours Anesthesia Plan Resuscitation Status: Full Code Anesthesia Technique: General Anesthesia Airway Planned: Endotracheal Tube Monitors Used: Standard Monitors Preoperative Comments:: Took 12 units of humalog this morning. Currently BGL stable. Will continue to monitor.
--- NOTE | 2022-08-05 10:40 | GB_PTH ---
PATIENT: Raul Trujillo LOC: [facility] U#:[id number] AGE/SX: 66/M ROOM: RE08/05/[address]: Zeke Romero MD : 1955 BED: DIS: 08/05/2022 SPEC #: [id number] RECD: 08/05/22 12:33 STATUS: R[facility] REQ #: [id number] VICKY: 08/05/22 10:[address]: Zeke Romero DEPT: Surgical Specimen RECD BY: Carmen Hill ENTERED: 08/05/22 12:33 SP TYPE: GB OTHR DR: Denise Hooker Tissues: 1 - GALLBLADDER Procedures: GROSS AND MICRO LEVEL 3 Comments: [id number]
[2022-08-05] MEDS: HYDROmorphone 2 MG/ML SYR IVP ×2 (11:26→11:39)
[2022-08-05] MEDS: Normal Saline Flush 10 ML SYR IV (11:27)
--- NOTE | 2022-08-05 12:59 | W.ANESPOSTOP ---
Postoperative Evaluation Date, Time and Location Date Performed: 08/05/22 Time Performed: 13:00 Patient Location: Day Surgery Unit Vital Signs Most Recent Imported Vital Signs: Most Recent Vital Signs Temp Pulse Resp BP Pulse Ox 36.5 C 69 18 110/69 95 08/05/22 12:35 08/05/22 12:35 08/05/22 12:35 08/05/22 12:35 08/05/22 12:35 Pain Score Most Recent Pain Score: Most Recent Pain Score Pain Level 2 08/05/22 12:35 Assessment Mental Status: Awake (Alert & Oriented to Patient Baseline) Airway and Respiratory Function: Patent airway with normal (patient baseline) respiratory exam Cardiovascular Function: Hemodynamically Stable Hydration Status: Adequately Hydrated Nausea & Vomiting: No Nausea or Vomiting Pain: Pt. Denies Any Pain Peripheral Nerve Block: Patient did not receive a nerve block
== END 2022-08-05 13:10 | disposition home or self-care (01) ==
PROVIDERS: PCP Nurse Practitioner Family; Visit Provider Surgery
PROC: 0FT44ZZ Resection of Gallbladder, Percutaneous Endoscopic Approach (ICD-10-PCS; CPT 47562; principal; 2022-08-05 11:30)
DX: K80.10 Calculus of gallbladder with chronic cholecystitis without obstruction (principal); E11.9 Type 2 diabetes mellitus without complications; I10 Essential (primary) hypertension
CPT/HCPCS: 47562; 88304; J0690; J1100; J1170; J2405; J2704

== ENCOUNTER → 2022-08-20 08:23 | Outpatient (BNVA) | payer MEDICARE, BC, SELFPAY | PROVIDERS: PCP Nurse Practitioner Family; Referring Provider Nurse Practitioner Family; Visit Provider Surgery | DX: Z48.815 Encounter for surgical aftercare following surgery on the digestive system (principal) ==

== ENCOUNTER 2022-11-17 18:57 | Outpatient (REF) | payer MEDICARE, BC, SELFPAY ==
[2022-11-17 22:19] LABS: ALT 132 U/L (16-63); AST 62 U/L (15-37); Albumin 3.9 g/dL (3.4-5.0); Alkaline Phosphatase 95 U/L (46-116); Amylase 58 U/L (25-115); Anion Gap 6.9 mmol/L (3-11); BUN 12 mg/dL (7-18); Bilirubin, Total 0.5 mg/dL (0.2-1.0); CO2 29.1 mmol/L (21.0-32.0); Calcium 9.5 mg/dL (8.5-10.1); Chloride 104 mmol/L (98-107); Estimated GFR 81.98 (mL/min/1.73m2); Glucose 165 mg/dL (74-106); Lipase 40 U/L (16-77); Potassium 4.1 mmol/L (3.5-5.1); Sodium 140 mmol/L (136-145); Total Protein 8.1 g/dL (6.4-8.2)
== END 2022-11-17 18:58 | disposition home or self-care (01) ==
LOC: NCHCN 18:57
PROVIDERS: PCP Nurse Practitioner Family; Visit Provider Nurse Practitioner Family
DX: R74.8 Abnormal levels of other serum enzymes (principal); E11.9 Type 2 diabetes mellitus without complications; K76.0 Fatty (change of) liver, not elsewhere classified; K30 Functional dyspepsia; E66.9 Obesity, unspecified; R19.7 Diarrhea, unspecified
CPT/HCPCS: 80053; 83690; 82150

== ENCOUNTER → 2022-11-20 09:49 | Outpatient (BNVA) | payer MEDICARE, BC, SELFPAY | PROVIDERS: PCP Nurse Practitioner Family; Referring Provider Nurse Practitioner Family; Visit Provider Physical Therapy Assistant | DX: Z12.11 Encounter for screening for malignant neoplasm of colon (principal); Z86.010 Personal history of colon polyps ==

== ENCOUNTER → 2022-11-25 10:07 | Outpatient (BNVA) | payer MEDICARE, BC, SELFPAY | PROVIDERS: PCP Nurse Practitioner Family; Referring Provider Nurse Practitioner Family; Visit Provider Internal Medicine Cardiovascular Disease | DX: I25.10 Atherosclerotic heart disease of native coronary artery without angina pectoris (principal); I10 Essential (primary) hypertension; E78.5 Hyperlipidemia, unspecified | CPT/HCPCS: 99214 ==

== ENCOUNTER 2022-12-04 07:44 | Day surgery (SDC) | payer MEDICARE, BC, SELFPAY ==
--- NOTE | 2022-12-03 20:09 | PDOC.DSDIS_ITS ---
Date of service: 12/04/22 Time of Service: 09:21 Discharge Plan Disposition Patient Disposition: Home Condition: Good Discharge Details Reason For Visit: Screening colonoscopy Attending Provider: Zeke Romero Primary Care Provider: Denise Hooker Home Meds and New Rx's Prescriptions: Continued multivitamin Tablet 1 tab PO DAILY insulin lispro protamin-lispro [Humalog Mix 75-25 KwikPen] 100 unit/mL (75-25) insulin pen 44 unit subcut BID Rx Instructions: 44 units Q AM and 40 units Q PM ranolazine 500 mg tablet extended release 12 hr 500 mg PO BID clotrimazole 1 % cream 1 applic topical BID cholecalciferol (vitamin D3) 25 mcg (1,000 unit) capsule 25 mcg PO DAILY metformin 500 mg tablet 500 mg PO DAILY nitroglycerin 0.4 MG tablet, sublingual 0.4 mg Sublingual PRN PRN metoprolol succinate [Toprol XL] 100 MG tablet extended release 24 hr 150 mg PO QAM lisinopril 5 MG tablet 5 mg PO QAM amlodipine 10 MG tablet 10 mg PO QAM rosuvastatin [Crestor] 40 MG tablet 40 mg PO DAILY Farxiga 5 mg tablet 5 mg PO DAILY Patient Comments: TAKE ONE TABLET BY MOUTH EVERY DAY trazodone 50 mg Tablet 50 mg PO QHS acetaminophen 500 mg tablet 1,000 mg PO TID Qty: 90 3RF Discontinued polyethylene glycol 3350 17 gram/dose powder 238 g PO ONCE Qty: 238 0RF Rx Instructions: take per colonoscopy instructions bisacodyl [Dulcolax (bisacodyl)] 5 mg tablet,delayed release (DR/EC) 5 mg PO ONCE Qty: 4 0RF Rx Instructions: take per colonoscopy instructions Discharge Instructions Additional Instructions: Raul, we were able to complete your colonoscopy today without any difficulty. The quality of your prep was adequate. We had good visualization. I did not see any evidence of polyps along any parts of your intestine. With your previous history of 3 tubular adenomas, the recommendation for this follow-up was 5 years, with this normal colonoscopy, you can go back to a 10-year interval. So, your next colonoscopy should be in 10 years. 1. If tolerated, consume a soft, low fiber diet for 1-2 days. 2[address] Do not drive, drink alcohol, operate machinery, make critical decisions, or do activities that require coordination or balance for 24 hours. 3. Because air was put into your colon during the procedure, expelling air from your rectum (passing gas or farting) is normal. 4. You may not have a bowel movement for 1-3 days because of the colonoscopy prep. This is normal. 5. Go directly to the emergency room if you notice any of the following: Develop chills (warm to touch), or if you have a thermometer and your temperature is above 101 Difficulty breathing or difficultly swallowing Persistent vomiting Severe abdominal pain, other than gas cramps Severe chest pain Black, tarry stools Any bleeding ? exceeding one tablespoon 6. Call your physician if the site where your intravenous was started becomes red, swollen, painful, and warm to touch. 7. Your physician has reviewed your pre-procedure medications. Please continue to take those medications as previously ordered. You will be given specific information/education regarding any changes to your medications before leaving. Activity:: Activity as Tolerated Diet:: As Tolerated Discharge Orders Discharge Orders: Discharge Order (Routine); Ordered 12/03/22 Ordered By: Zeke Romero DS: Diagnosis Discharge Diagnosis (1) Screening for colon cancer: Status: Acute Asessment and Plan: Normal colonoscopy today. With previous history of 3 tubular adenomas, and a 5- year interval that is normal, screening colonoscopies can go back to every 10 years
--- NOTE | 2022-12-03 20:10 | W.COLOREPORT ---
Date of service: 12/04/22 Time of Service: :24 Colonoscopy Report Date of procedure: 12/04/22 Pre-op diagnosis general: Screening colonoscopy Post-op diagnosis procedure note: other (Rare diverticulosis, otherwise normal screening colonoscopy) Procedure: Colonoscopy Surgeon: Zeke Romero Anesthesia Type: General:No Airway Estimated blood loss (mL): 0 Pathology: none sent Complications: None Disposition: same day Indications: Raul is a 67 year old male with a history of adenomatous polyps who is here for his next screening colonoscopy Prep: Miralax/Dulcolax Procedure Start Time: 09:01 Procedure End Time: 09:15 Retraction Time: 11 Findings: Rare sigmoid diverticulosis. Procedure Description: After the induction of monitored anesthetic care, and with the patient in left lateral decubitus position, I began by performing an external anorectal exam.? Perineum and skin were normal, as was the anal verge.? There was no evidence of external hemorrhoids.? Next, I performed a digital rectal exam.? I did not appreciate any abnormal findings.? Next, I advanced a colonoscope into the rectal vault.? I performed retroflexion.? This appeared normal.? Using insufflation, I then advanced the colonoscope beyond the rectal folds and into the sigmoid colon before advancing towards the cecum.? There was some rare sigmoid diverticulosis. The quality of the prep was adequate.? The scope was noted to be in the cecum by identification of the ileocecal valve and appendiceal orifice.? I then began withdrawing the colonoscope using repeated irrigation as necessary for full evaluation of the colonic mucosa. ?Once the scope was withdrawn to the level of the rectum, great care was taken to examine portions of the rectal folds.? Finally, the scope was withdrawn and the patient was brought to the same-day surgery recovery unit as the anesthetic wore off. ?The findings and instructions were shared with the patient prior to discharge. Based on the history of 3 tubular adenomas on previous colonoscopy, and a normal 5-year interval colonoscopy, screening can go back to 10 years.
[2022-12-04 07:50] VITALS: BP 133/71; PULSE 71; RESP 16; TEMP 36.2; O2SAT 98
[2022-12-04] MEDS: Lactated Ringers 1,000 ML 80 ML IV (08:37)
--- NOTE | 2022-12-04 08:47 | ANES.PREOP_ITS ---
General Info Date of Service Date Performed: 12/04/22 Height: 5 ft 9 in Weight: 105.2 kg Body Mass Index (BMI): 34.2 Surgical Procedure: Operation Date: 12/04/22 09:05 Proposed Procedure Side Surgeon p Colonoscopy Zeke Romero MD Actual Procedure Side Surgeon p Colonoscopy Zeke Romero MD Pre-Op Diagnosis Post-Op Diagnosis Screening colonoscopy Meds Allergies and Home Medications Allergies Allergy/AdvReac Type Severity Reaction Status Date / Time isosorbide AdvReac Verified 12/04/22 08:06 Home Medication Medication Instructions Recorded amlodipine 10 mg tablet 10 mg PO QAM 07/23/14 lisinopril 5 mg tablet 5 mg PO QAM 07/23/14 metoprolol succinate 100 mg 150 mg PO QAM 07/23/14 tablet,extended release 24 hr (Toprol XL) nitroglycerin 0.4 mg sublingual 0.4 mg sublingual PRN PRN 07/23/14 tablet rosuvastatin 40 mg tablet (Crestor) 40 mg PO DAILY 07/23/14 trazodone 50 mg tablet 50 mg PO QHS 12/01/18 dapagliflozin 5 mg tablet (Farxiga) 5 mg PO DAILY 03/18/20 insulin lispro protamine-lispro 44 unit subcut BID 02/04/22 100 unit/mL (75-25) subcutaneous pen (Humalog Mix 75-25 KwikPen) ranolazine 500 mg tablet,extended 500 mg PO BID 02/04/22 release,12 hr multivitamin 1 tab PO DAILY 04/17/22 acetaminophen 500 mg tablet 1,000 mg PO TID #90 tabs 04/22/22 cholecalciferol (vitamin D3) 25 25 mcg PO DAILY 05/22/22 mcg (1,000 unit) capsule clotrimazole 1 % topical cream 1 applic topical BID 05/22/22 metformin 500 mg tablet 500 mg PO DAILY 11/25/22 Current Visit Medications: Current Medications Generic Name Dose Route Start Last Admin Trade Name Freq PRN Reason Stop Dose Admin Hyoscyamine Sulfate 0.125 mg 12/03/22 20:12 Hyoscyamine 0.125 Mg Sl/Oral/Chew SL 01/02/23 20:11 DIRECTED PRN Ringer's Solution 1,000 mls @ 80 mls/hr 12/04/22 06:00 12/04/22 08:37 IV 01/02/23 23:59 80 mls/hr INFUSION HILARIO Administration IV Miscellaneous Supplies 1 each 12/04/22 06:00 Iv Access IV 01/02/23 23:59 DIRECTED HILARIO Ondansetron HCl 4 mg 12/03/22 20:12 Ondansetron 4 Mg/2 Ml Vial IVP 01/02/23 20:11 Q4H PRN PRN Nausea / Vomiting Sodium Chloride 0 ml 12/04/22 06:00 Normal Saline Flush 10 Ml Syr IV 01/02/23 23:59 PRN PRN Sodium Chloride 0 ml 12/04/22 06:00 Normal Saline 10 Ml Vial IJ 01/02/23 23:59 DIRECTED PRN Sterile Water 0 ml 12/04/22 06:00 Water,Injection,Sterile 10 Ml Vial IJ 01/02/23 23:59 DIRECTED PRN PFSH Active Problems Active Problems: Problem Status Onset Code Essential hypertension I10 Atherosclerotic heart disease qagan [place] coronary artery w/angina pectoris I25.119 Diabetes mellitus type 2 in obese E11.9, E66.9 Long-term insulin use in type 2 diabetes E11.9, Z79.4 Tubular adenoma of colon 03/27/17 D12.6 Coronary artery disease I25.10 Non-sustained ventricular tachycardia I47.2 Screening for colon cancer Z12.11 Venous stasis dermatitis of left lower extremity I87.2 Chronic diarrhea K52.9 Medical History Medical History Adenomatous colon polyp Depression Depression with anxiety Diarrhea DM (diabetes mellitus) Elevated LFTs Fatty liver disease, nonalcoholic HLD (hyperlipidemia) HTN (hypertension) Nonsustained paroxysmal ventricular tachycardia NSTEMI (non-ST elevated myocardial infarction) 02/2020-pt. denies he had a NSTEMI, but states he had angina but no heart attack Obesity DEEPALI (obstructive sleep apnea) RLS (restless legs syndrome) Unstable angina Per pt. states this is not current, occured over 1/5 years ago, follows up with record clerk last seen 11/25/22 Vertigo Vitamin D deficiency Surgical History Surgical History Colonoscopy - MAC (03/27/17) Coronary Stent 9 stents. Last placement on 02/11/16 Excision, Distal Clavicle (05/11/15) DR BROWN/LEFT History of total left hip replacement (04/22/22) History of umbilical hernia repair Rotator Cuff Repair (05/11/15) S/P cholecystectomy Status post amputation of lesser toe of right foot Fifth toe was removed Status post carpal tunnel release of both wrists Tobacco Smoking/Tobacco Use Status: Former Tobacco Use Alcohol Alcohol Intake: never Substance Use Substance use: Daily Substance use type: other Details: uses 0.5-1 THC gummy qHS, last use 12/03/22 Vital Signs and Lab Results Vital Signs Most Recent Vital Signs in EMR: Most Recent Vital Signs Temp Pulse Resp BP Pulse Ox 36.2 C L 71 16 133/71 98 12/04/22 07:50 12/04/22 07:50 12/04/22 07:50 12/04/22 07:50 12/04/22 07:50 Point of Care Results Point of Care Results: Finger Stick Blood Glucose 202 12/04/22 08:01 Lab Results Blood Type / Crossmatch: No Data to Display Complete Blood Count: No Data to Display Complete Metabolic Panel: Sodium 140 mmol/L (136-145) 11/17/22 14:39 Potassium 4.1 mmol/L (3.5-5.1) 11/17/22 14:39 Chloride 104 mmol/L (98-107) 11/17/22 14:39 Carbon Dioxide 29.1 mmol/L (21.0-32.0) 11/17/22 14:39 BUN 12 mg/dL (7-18) 11/17/22 14:39 Creatinine 1.0 mg/dL (0.70-1.30) 11/17/22 14:39 Est GFR (CKD-EPI 2020) 81.98 (mL/min/1.73m2) 11/17/22 14:39 Calcium 9.5 mg/dL (8.5-10.1) 11/17/22 14:39 Albumin 3.9 g/dL (3.4-5.0) 11/17/22 14:39 Glucose 165 mg/dL (74-106) H 11/17/22 14:39 Liver Function Panel: Alanine Aminotransferase (ALT/SGPT) 132 U/L (16-63) H 05/01/23 14:39 Aspartate Amino Transf (AST/SGOT) 62 U/L (15-37) H 11/17/22 14: 39 Coagulation Panel: No Data to Display Cardiac Panel: No Data to Display Arterial Blood Gas: No Data to Display Venous Blood Gas: No Data to Display Pancreas Panel: Amylase Level 58 U/L (25-115) 11/17/22 14:39 Lipase 40 U/L (16-77) 11/17/22 14:39 Thyroid Panel: No Data to Display Infectious Disease: No Data to Display Blood Cultures: No Data to Display Toxicology Panel: No Data to Display Imaging and Studies Imaging and Studies Study information below may be from another EMR and interpreted by another provider. Please see original notes in EMR for more complete details. EKG Summary: DATE/TIME OF SERVICE: 02/28/22909 : 1955PERFORMING LOCATION[facility] APPROVED REPORT Exam: Resting ECG Reason for Exam: NSVT CAD Patient Location: O HR:72 bpm ECG Measurements Heart Rate 72 AXIS IA 184 P 50 QRSd 110 QRS 92 QT 385 T10 QTc 422 Conclusion Sinus rhythm...normal P axis, V-rate 50- 99 Right axis deviation...QRS axis ( 91,269) Echocardiogram Summary: 03/19/20: [facility]: Left VentricleThe left ventricular cavity was normal in size. Left ventricular systolic function was normal with an ejection fraction of 55-60%. Left ventricular diastolic parameters were not diagnostic. Left ventricular wall thickness was normal. Left ventricular wall motion was normal; there were no regional wall motion abnormalities. Right VentricleThe right ventricular cavity was normal in size. Right ventricular systolic function was normal. Right ventricular wall thickness was normal. Left AtriumThe left atrium was normal in size. Right AtriumThe right atrium was normal in size. Aortic ValveThe aortic valve structure was trileaflet. The aortic leaflets were not thickened. There was no aortic valve stenosis. There was no aortic valve regurgitation. Mitral ValveMitral valve structure was normal. There was no significant mitral valve stenosis or regurgitation. Tricuspid ValveTricuspid valve structure was normal. There was no tricuspid valve regurgitation. There was no tricuspid valve stenosis. Pulmonic ValveThere was no pulmonic valve regurgitation. There was no pulmonic valve stenosis. Pulmonic ArteryUnable to assess PA pressure. Ascending AortaThe aorta was normal in size. PericardiumThere was no pericardial effusion. IVC/SVCThe inferior vena cava was normal in size. Cardiac Catheterization Summary: 03/19/20: [facility]: CORONARY ARTERIES: The coronary circulation is right dominant. Left main: Minor luminal irregularities. LAD: Proximal vessel lesion: There is a 30% stenosis. Patent stents with minimal ISR. Slow flow initially with rapid improvement to normal with IC NTG. Ramus intermedius: Minor luminal irregularities. Left circumflex: Proximal vessel lesion: There is a 30% stenosis. Distal vessel lesion: There is a 50% stenosis. unchanged. Right coronary: Proximal vessel lesion: There is minimal in-stent restenosis. Anesthesia Assessment and Plan Anesthesia History Personal History: No History of Anesthesia Complications Family History: No Family History of Anesthesia Complications Exercise Tolerance Exercise Tolerance: Metabolic Equivalents>4 Pertinent Negatives Pertinent Negatives: No Symptoms of GERD and No Major Pulmonary Symptoms or Complaints Cardiac & Pulmonary Exam Cardiac Exam: Normal S1/S2 Heart Sounds Pulmonary Exam: Clear Bilateral Breath Sounds Implantable Cardiac Device Does patient have a Pacemaker or an ICD?: No Airway Exam Known Difficult Airway: No Mallampati Class: 3 Mouth Opening: Normal (> 3cm) Thyromental Distance: Greater than 3 cm Neck Range of Motion: Full ROM Neck Circumference: Normal Teeth Condition: Normal Dentition ASA Classification ASA Score: ASA 3 Emergency Case?: No NPO Status NPO Status: NPO Clears >2 hours, Solids >8 hours Anesthesia Plan Resuscitation Status: Full Code Anesthesia Technique: General Anesthesia Airway Planned: Natural Airway Monitors Used: Standard Monitors
[2022-12-04 08:50] VITALS: BMI 34.2
[2022-12-04 09:17] VITALS: BP 119/70; PULSE 68; RESP 18; TEMP 36.3; O2SAT 96
[2022-12-04 09:45] VITALS: BP 120/78; PULSE 78; RESP 18; TEMP 36.6; O2SAT 98
--- NOTE | 2022-12-04 11:01 | W.ANESPOSTOP ---
Postoperative Evaluation Date, Time and Location Date Performed: 12/04/22 Time Performed: 09:45 Patient Location: Day Surgery Unit Vital Signs Most Recent Imported Vital Signs: Most Recent Vital Signs Temp Pulse Resp BP Pulse Ox 36.6 C 78 18 120/78 98 12/04/22 09:45 12/04/22 09:45 12/04/22 09:45 12/04/22 09:45 12/04/22 09:45 Pain Score Most Recent Pain Score: Most Recent Pain Score Pain Level 0 12/04/22 09:45 Assessment Mental Status: Awake (Alert & Oriented to Patient Baseline) Airway and Respiratory Function: Patent airway with normal (patient baseline) respiratory exam Cardiovascular Function: Hemodynamically Stable Hydration Status: Adequately Hydrated Nausea & Vomiting: No Nausea or Vomiting Pain: Pt. Denies Any Pain Peripheral Nerve Block: Patient did not receive a nerve block
== END 2022-12-04 09:47 | disposition home or self-care (01) ==
PROVIDERS: PCP Nurse Practitioner Family; Visit Provider Surgery
PROC: 0DJD8ZZ Inspection of Lower Intestinal Tract, Via Natural or Artificial Opening Endoscopic (ICD-10-PCS; CPT 45378; principal; 2022-12-04 09:00)
DX: Z12.11 Encounter for screening for malignant neoplasm of colon (principal); K57.30 Diverticulosis of large intestine without perforation or abscess without bleeding; Z86.010 Personal history of colon polyps
CPT/HCPCS: G0105

== ENCOUNTER 2022-12-09 01:12 | Outpatient (CLI) | payer MEDICARE, BC, SELFPAY ==
[2022-12-09] MEDS: Barium Sulfate 2% W/V-Berry Smoothie 450 ML BTL 900 ML PO (11:36)
[2022-12-09] MEDS: Omnipaque 350 MG/ML 100 ML BTL IJ (13:52)
[2022-12-09] MEDS: Normal Saline - Diluent 50 ML VIAL IJ (13:53)
[2022-12-09] MEDS: Normal Saline Flush 10 ML SYR IVP (13:54)
--- NOTE | 2022-12-09 14:00 | DI.CT_ITS ---
Exam(s) CT ABDOMEN PELVIS W EXAM: CT ABDOMEN PELVIS W CLINICAL HISTORY: ELEVATED PANCREATIC ENZYME, R74.8; FATTY LIVER DISEASE, K76.0 TECHNIQUE: Imaging Protocol: Axial computed tomography images with coronal and sagittal reformatted images were created and reviewed CONTRAST MATERIAL: Intravenous: Omnipaque 350 Contrast volume:100 mL Oral: Yes COMPARISON: CT ABD PELVIS WITH CONTRAST from 07/22/2016 FINDINGS: ABDOMEN: Lung Bases: Coronary artery calcification and/or stents are present. Liver: There is decreased attenuation of the liver suggesting fatty infiltration. The liver measures 19.6 cm long. No measurable mass. Portal, Superior Mesenteric, and Splenic Veins: Unremarkable. Gallbladder and Biliary Tract: Status post cholecystectomy. No significant biliary ductal dilatation . Pancreas: Normal density, no abnormal calcifications or inflammatory process. Spleen: Normal. Adrenals: No masses seen. Kidneys: Normal size, contour and axis. No radiodense stones or obstructive uropathy. There is a stab le simple hepatic cysts. No follow-up is recommended. Abdominal Aorta: Abdominal portion non-dilated. Atherosclerosis is present. Bowel: There is diverticulosis of the colon, but no evidence of acute diverticulitis. There is no ev idence of bowel obstruction or bowel wall thickening. Appendix is unremarkable. Peritoneal Cavity: No ascites, collection or mesenteric inflammatory response. No free air. Lymph Nodes: Within normal limits. Bones: The patient has a left total hip replacement. Soft Tissues: There is a fat containing right inguinal hernia. PELVIS: Bladder: The urinary bladder is incompletely distended. There is thickening of the wall of the urina ry bladder identified. This may be due to underdistention. Reproductive Organs: Unremarkable as visualized. Lymph Nodes: Within normal limits. Bones: Within normal limits for the patient's age. IMPRESSION: 1. Fatty liver and hepatomegaly. 2. Unremarkable pancreas. 3. Status post cholecystectomy. 4. Thickening of the wall of the urinary bladder. This may be due to underdistention, but cystitis o r neoplasm cannot be entirely excluded. Please correlate clinically. RADIATION DOSE DELIVERED: 1,168.79mGy.cm Total DLP DATA REPOSITORY: All CT scans at this facility are submitted to the National Radiology Data Registry (NRDR) Dose Index Registry (DIR) with the [employer] (A[employer]). RADIATION OPTIMIZATION: All CT scans at this facility use at least one of these dose optimization te chniques: automated exposure control; mA and/or kV adjustment per patient size (includes targeted exa ms where dose is matched to clinical indication); or iterative reconstruction.
== END 2022-12-09 01:32 ==
LOC: DI 01:13
PROVIDERS: PCP Nurse Practitioner Family; Visit Provider Nurse Practitioner Family
DX: K76.0 Fatty (change of) liver, not elsewhere classified (principal); R93.41 Abnormal radiologic findings on diagnostic imaging of renal pelvis, ureter, or bladder
CPT/HCPCS: 74177; J3490

== ENCOUNTER 2022-12-22 03:40 | Outpatient (CLI) | payer MEDICARE, BC, SELFPAY ==
[2022-12-22 14:28] LABS: Hemoglobin A1C 6.9 % (<5.7)
[2022-12-22 18:10] LABS: Anion Gap 8.1 mmol/L (3-11); BUN 15 mg/dL (7-18); CO2 27.9 mmol/L (21.0-32.0); CREATININE 1.1 mg/dL (0.70-1.30); Calcium 9.2 mg/dL (8.5-10.1); Chloride 99 mmol/L (98-107); Estimated GFR 73.12 (mL/min/1.73m2); Glucose 129 mg/dL (74-106); Potassium 4.3 mmol/L (3.5-5.1); Sodium 135 mmol/L (136-145)
[2022-12-24 17:43] LABS: Fructosamine 298 mcmol/L (200 - 285)
== END 2022-12-22 03:41 | disposition home or self-care (01) ==
LOC: LBO 03:40
PROVIDERS: PCP Nurse Practitioner Family; Visit Provider Internal Medicine Endocrinology, Diabetes & Metabolism
DX: E11.65 Type 2 diabetes mellitus with hyperglycemia (principal)
CPT/HCPCS: 36415; 80048; 82985; 83036

== ENCOUNTER 2022-12-26 12:31 | Outpatient (REF) | payer MEDICARE, BC, SELFPAY ==
--- NOTE | 2022-12-26 12:10 | SKI_PTH ---
PATIENT: Raul Trujillo LOC: [facility] U#:[id number] AGE/SX: 67/M ROOM: RE12/26/[address]: Grace Castillo : 1955 BED: DIS: 12/26/2022 SPEC #: [id number] RECD: 12/26/22 13:55 STATUS: ROME REJuan #: [id number] VICKY: 12/26/22 12:[address]: Grace Castillo DEPT: Surgical Specimen RECD BY: Carmen Hill ENTERED: 12/26/22 13:55 SP TYPE: [facility]IDSON VILLAFANA DR: Denise Hooker Tissues: 1 - SKIN BIOPSY(SHAVE/PUNCH) Procedures: SKIN LEVEL 4 Comments: [id number]
== END 2022-12-26 12:32 | disposition home or self-care (01) ==
LOC: NCHCN 12:31
PROVIDERS: PCP Nurse Practitioner Family; Visit Provider Family Medicine
DX: L82.0 Inflamed seborrheic keratosis (principal)
CPT/HCPCS: 88305

== ENCOUNTER 2023-02-26 12:57 | Emergency (ER) | payer MEDICARE, BC, SELFPAY ==
--- NOTE | 2023-02-26 12:45 | RT.EKG_ITS ---
APPROVED REPORT Exam: Resting ECG Reason for Exam: chest pain Patient Location: E HR:65 bpm ECG Measurements Heart Rate 65 AXIS UT 163 P 63 QRSd 156 QRS 85 QT 437 T 13 QTc 457 Conclusion Sinus rhythm...normal P axis, V-rate 60- 99 Right bundle branch block...QRSd>120, terminal axis(90,270) Physician: New RBBB, anterior depressions. No stemi. Acute changes are noted in comparison to prior f rom 02/28/22
[2023-02-26 12:57] VITALS: BP 146/60; PULSE 75; RESP 20; TEMP 36.6; O2SAT 98
--- NOTE | 2023-02-26 13:04 | ED.GENADUL_ITS ---
Discharge Plan Discharge Details Chief Complaint: Chest Pain Primary Care Provider: Denise Hooker ED Provider: Erin Bob Home Meds and New Rx's Prescriptions: No Action multivitamin Tablet 1 tab PO DAILY insulin lispro protamin-lispro [Humalog Mix 75-25 KwikPen] 100 unit/mL (75-25) insulin pen 44 unit subcut BID Rx Instructions: 44 units Q AM and 40 units Q PM ranolazine 500 mg tablet extended release 12 hr 500 mg PO BID clotrimazole 1 % cream 1 applic topical BID Patient Comments: NO LONGER TAKING PER PT 02/26/23 cholecalciferol (vitamin D3) 25 mcg (1,000 unit) capsule 25 mcg PO DAILY Trulicity 1.5 mg/0.5 mL pen injector 1.5 mg subcut QWEEK Patient Comments: NO LONGER TAKING PER PT 02/26/23 metformin 500 mg tablet 1,000 mg PO DAILY Patient Comments: NO LONGER TAKING PER PT 02/26/23 nitroglycerin 0.4 MG tablet, sublingual 0.4 mg Sublingual PRN PRN metoprolol succinate [Toprol XL] 100 MG tablet extended release 24 hr 150 mg PO QAM Patient Comments: NO LONGER TAKING PER PT 02/26/23 lisinopril 5 MG tablet 5 mg PO QAM amlodipine 10 MG tablet 10 mg PO QAM rosuvastatin [Crestor] 40 MG tablet 40 mg PO DAILY Farxiga 5 mg tablet 5 mg PO DAILY Patient Comments: TAKE ONE TABLET BY MOUTH EVERY DAY dexamethasone 0.5 mg/5 mL elixir See Rx Instructions .ROUTE .COMPLEX Patient Comments: RINSE WITH 1 TEASPOONFUL FOR 2MIN FOUR TIMES A DAY DO NOT SWALLOW Rx Instructions: see aBOVE aspirin 81 mg Tablet,Chewable 81 mg PO DAILY trazodone 50 mg Tablet 50 mg PO QHS acetaminophen 500 mg tablet 1,000 mg PO TID Qty: 90 3RF Medical Decision Making 67-year-old male past medical history of type 2 diabetes, numbness sustained ventricular tachycardia venous stasis dermatitis, CAD hypertension with history of 9 stents placed last in 2015, obesity obstructive sleep apnea NSTEMI, fatty liver disease presents to the ER with a chief complaint of chest pain, neck pain and shortness of breath that began around 1130 today while gardening. He was given 325 mg of aspirin prior to arrival per EMS, EKG showed right bundle branch block prior to arrival, he did take 1 sublingual nitro which relieved his symptoms. He presents chest pain-free at this time. He denies any other associated symptoms. He is placed on a new medication called ranolazine 500 mg by his bobbin coil winder in [place]. EKG was reviewed by Dr. Calabrese ER attending, patient has a new right bundle branch block with unstable angina. Cardiac workup ordered including CBC CMP serial troponins, PT PTT chest x-ray, magnesium. Will add on a proBNP. 1445: Patient reevaluation he remains pain-free at this time. Does have family at the bedside. Vital signs are stable. Discussed lab results and awaiting serial troponin and consult with cardiology at [facility]. 1555: Patient to be signed out to oncoming provider Rosemarie Lowe pending serial troponin and cardiology consult pending result. I did discuss patient case in details with her she verbalizes understanding. Current working diagnosis is unstable angina with EKG changes. Medical Records Medical records reviewed: Yes I reviewed the patient's medical records. Medical records narrative: Patient has had 9 stents placed, last was in 2015. He currently sees cardiology with [facility]. Imaging Data Radiologic Study: Imaging: X-Ray Radiologist's impression: EXAM: XR CHEST 2V PA LATERAL CLINICAL HISTORY: Chest Pain, SOB TECHNIQUE: 2D digital imaging was performed of the chest. Three images were obtained. PA and lateral views were obtained. COMPARISON: CR XR CHEST 2V PA LATERAL from 12/01/2018 FINDINGS: MEDIASTINUM: Normal. HEART: Normal. PULMONARY VASCULATURE: Normal. LUNGS: Clear. PLEURAL SPACE: No pleural effusion or pneumothorax. BONE:Within normal limits for the patient's age. OTHER FINDINGS:Normal. IMPRESSION: No acute pulmonary findings. Lab Data Lab results reviewed: Yes I reviewed the patient's lab results. Labs: Laboratory Tests Range/Units 02/26/23 02/26/23 02/26/23 12:55 12:55 12:55 WBC (4.4-10.8) 10^3/uL 8.33 RBC (4.36-5.78) 10^6/uL 5.35 Hgb (13.5-17.5) g/dL 15.6 Hct (40.0-50.0) % 45.1 MCV (80-95) fL 84 MCH (27.0-33.0) pg 29.2 MCHC (32.0-36.0) % 34.6 RDW (11.8-14.1) % 12.8 Plt Count (130-400) 10^3/uL 293 MPV (8.0-11.0) fL 10.3 Immature Gran % 0.4 Neutrophils % 50.6 Lymphocytes % 40.0 Monocytes % 7.4 Eosinophils % 1.0 Basophils % 0.6 Nucleated RBC % (0.0-0.3) % 0.0 Absolute Neutrophils (1.2-6.7) 10^3/uL 4.21 Absolute Lymphocytes (1.2-3.4) 10^3/uL 3.33 Absolute Monocytes (0.1-0.8) 10^3/uL 0.62 Absolute Eosinophils (0.0-0.7) 10^3/uL 0.08 Absolute Basophils (0.0-0.2) 10^3/uL 0.05 RBC Morphology Normal PT (9.3-11.0) sec 10.4 INR (0.9-1.1) 1.0 APTT (21.5-31.9) sec 24.1 Sodium (136-145) mmol/L 140 Potassium (3.5-5.1) mmol/L 3.5 Chloride (98-107) mmol/L 101 Carbon Dioxide (21.0-32.0) mmol/L 27.7 Anion Gap (3-11) mmol/L 11.3 H BUN (7-18) mg/dL 18 Creatinine (0.70-1.30) mg/dL 1.0 Est GFR (CKD-EPI 2020) (mL/min/1.73m2) 81.98 Glucose (74-106) mg/dL 127 H Calcium (8.5-10.1) mg/dL 9.6 Magnesium (1.8-2.4) mg/dL 1.9 Total Bilirubin (0.2-1.0) mg/dL 0.6 AST (15-37) U/L 31 ALT (16-63) U/L 68 H Alkaline Phosphatase (46-116) U/L 107 Troponin I (<or=60) ng/L < 50 NT-Pro-B Natriuret Pep (<300) pg/mL Total Protein (6.4-8.2) g/dL 8.2 Albumin (3.4-5.0) g/dL 4.0 Add-On Test Request Range/Units 02/26/23 02/26/23 12:55 13:11 WBC (4.4-10.8) 10^3/uL RBC (4.36-5.78) 10^6/uL Hgb (13.5-17.5) g/dL Hct (40.0-50.0) % MCV (80-95) fL MCH (27.0-33.0) pg MCHC (32.0-36.0) % RDW (11.8-14.1) % Plt Count (130-400) 10^3/uL MPV (8.0-11.0) fL Immature Gran % Neutrophils % Lymphocytes % Monocytes % Eosinophils % Basophils % Nucleated RBC % (0.0-0.3) % Absolute Neutrophils (1.2-6.7) 10^3/uL Absolute Lymphocytes (1.2-3.4) 10^3/uL Absolute Monocytes (0.1-0.8) 10^3/uL Absolute Eosinophils (0.0-0.7) 10^3/uL Absolute Basophils (0.0-0.2) 10^3/uL RBC Morphology PT (9.3-11.0) sec INR (0.9-1.1) APTT (21.5-31.9) sec Sodium (136-145) mmol/L Potassium (3.5-5.1) mmol/L Chloride (98-107) mmol/L Carbon Dioxide (21.0-32.0) mmol/L Anion Gap (3-11) mmol/L BUN (7-18) mg/dL Creatinine (0.70-1.30) mg/dL Est GFR (CKD-EPI 2020) (mL/min/1.73m2) Glucose (74-106) mg/dL Calcium (8.5-10.1) mg/dL Magnesium (1.8-2.4) mg/dL Total Bilirubin (0.2-1.0) mg/dL AST (15-37) U/L ALT (16-63) U/L Alkaline Phosphatase (46-116) U/L Troponin I (<or=60) ng/L NT-Pro-B Natriuret Pep (<300) pg/mL 59 Total Protein (6.4-8.2) g/dL Albumin (3.4-5.0) g/dL Add-On Test Request DONE ECG Data Prior ECG tracings: available for review HPI General Mode of arrival: ambulatory . Date/Time Provider Initiated Documentation: 02/26/23 13:28 . Limitations to Documentation: no limitations . Information obtained by: patient, RN notes reviewed and old records reviewed . HPI Narrative: 67-year-old male past medical history of type 2 diabetes, numbness sustained ventricular tachycardia venous stasis dermatitis, CAD hypertension with history of 9 stents placed last in 2015, obesity obstructive sleep apnea NSTEMI, fatty liver disease presents to the ER with a chief complaint of chest pain, neck pain and shortness of breath that began around 1130 today while gardening. He was given 325 mg of aspirin prior to arrival per EMS, EKG showed right bundle branch block prior to arrival, he did take 1 sublingual nitro which relieved his symptoms. He presents chest pain-free at this time. He denies any other associated symptoms. He is placed on a new medication called ranolazine 500 mg by his bobbin coil winder in [place]. Related Data Home Medications Medication Instructions Recorded Confirmed amlodipine 10 mg tablet 10 mg PO QAM 07/23/14 02/26/23 lisinopril 5 mg tablet 5 mg PO QAM 07/23/14 02/26/23 metoprolol succinate 100 mg 150 mg PO QAM 07/23/14 12/04/22 tablet,extended release 24 hr (Toprol XL) nitroglycerin 0.4 mg sublingual 0.4 mg sublingual PRN PRN 07/23/14 02/26/23 tablet rosuvastatin 40 mg tablet (Crestor) 40 mg PO DAILY 07/23/14 02/26/23 trazodone 50 mg tablet 50 mg PO QHS 12/01/18 02/26/23 dapagliflozin propanediol 5 mg 5 mg PO DAILY 03/18/20 02/26/23 tablet (Farxiga) insulin lispro protamine-lispro 44 unit subcut BID 02/04/22 02/26/23 100 unit/mL (75-25) subcutaneous pen (Humalog Mix 75-25 KwikPen) ranolazine 500 mg tablet,extended 500 mg PO BID 02/04/22 02/26/23 release,12 hr multivitamin 1 tab PO DAILY 04/17/22 02/26/23 acetaminophen 500 mg tablet 1,000 mg PO TID #90 tabs 04/22/22 02/26/23 cholecalciferol (vitamin D3) 25 25 mcg PO DAILY 05/22/22 02/26/23 mcg (1,000 unit) capsule clotrimazole 1 % topical cream 1 applic topical BID 05/22/22 12/02/22 dulaglutide 1.5 mg/0.5 mL 1.5 mg subcut QWEEK 12/12/22 subcutaneous pen injector (Trulicity) metformin 500 mg tablet 1,000 mg PO DAILY 12/12/22 aspirin 81 mg chewable tablet 81 mg PO DAILY 02/26/23 02/26/23 dexamethasone 0.5 mg/5 mL oral See Rx Instructions .Route .COMPLEX 02/26/23 02/26/23 elixir Previous Rx's Medication Instructions Recorded acetaminophen 500 mg tablet 1,000 mg PO TID #90 tabs 04/22/22 Allergies Allergy/AdvReac Type Severity Reaction Status Date / Time isosorbide AdvReac Verified 02/26/23 13:03 General Stated Complaint: Chest Pain ANDREA: 3 Review of Systems All systems reviewed & are unremarkable except as noted in HPI and below Cardiovascular Cardiovascular: Reports chest pain, Reports radiating jaw, neck or arm pain and Reports dyspnea Respiratory Respiratory: Reports dyspnea Gastrointestinal Gastrointestinal: Denies diarrhea, Denies nausea and Denies vomiting PFSH All Active Problems Essential hypertension (Chronic) Atherosclerotic heart disease [place] coronary artery w/angina pectoris (Chronic) Diabetes mellitus type 2 in obese (Chronic) Long-term insulin use in type 2 diabetes (Chronic) Tubular adenoma of colon (Chronic 03/27/17) Coronary artery disease (Chronic) Non-sustained ventricular tachycardia (Acute) Screening for colon cancer (Acute) Venous stasis dermatitis of left lower extremity (Acute) Chronic diarrhea (Acute) Medical History Adenomatous colon polyp Depression Depression with anxiety Diarrhea DM (diabetes mellitus) Elevated LFTs Fatty liver disease, nonalcoholic HLD (hyperlipidemia) HTN (hypertension) Nonsustained paroxysmal ventricular tachycardia NSTEMI (non-ST elevated myocardial infarction) 02/2020-pt. denies he had a NSTEMI, but states he had angina but no heart attack Obesity DEEPALI (obstructive sleep apnea) RLS (restless legs syndrome) Unstable angina Per pt. states this is not current, occured over 1/5 years ago, follows up with bobbin coil winder last seen 11/25/22 Vertigo Vitamin D deficiency Surgical History Colonoscopy - MAC (03/27/17) Coronary Stent 9 stents. Last placement on 02/11/16 Excision, Distal Clavicle (05/11/15) DR BROWN/LEFT History of total left hip replacement (04/22/22) History of umbilical hernia repair Rotator Cuff Repair (05/11/15) S/P cholecystectomy Status post amputation of lesser toe of right foot Fifth toe was removed Status post carpal tunnel release of both wrists Social History Smoking/Tobacco Use Status: Former Tobacco Use Quit Date: 07/20/92 Pack-years: 40 Tobacco: How many years used: 20 Smoking risk assessment performed?: Yes Alcohol Intake: never Drug use: Daily Substance use type: other Details: uses 0.5-1 THC gummy qHS, last use 12/03/22 Household members: none Housing: house 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 Appears stated age. Normal body habitus. Head: Normocephalic, no trauma. Eyes: Pupils PERRL, Red reflex noted, EOM's intact. Eyelids symmetrical without lesions, discharge, or swelling. ENT: Bilateral TM's WNL, External ear normal to inspection, no mastoid TTP, swelling, or erythema, Nasal turbinates WNL, no nasal discharge. Normal dentition, Posterior pharynx WNL, no exudate. Chest: RRR, Normal S1, S2, distal pulses intact. Resp: Lungs clear to auscultation bilaterally, no wheezes, rales, or rhonchi. Abdomen: Soft, non-distended, Normoactive bowel sounds all 4 quads. Musculoskeletal: Normal gait, 5/5 strength to all four extremities. Skin: No suspicious rashes or lesions. Capillary refill less than 2 sec. Neurologic: Cranial nerves II-XII intact. Alert and oriented x 3. Motor: No deficits noted. Sensory: Intact bilaterally all 4 extremities. Reflexes: DTR's intact bilaterally.. Hematologic/Lymphatic: No ecchymosis, no lymphadenopathy. Course Vital Signs Vital signs: Vital Signs Temperature 36.6 C 02/26/23 12:57 Pulse 75 02/26/23 12:57 Respiratory Rate 20 02/26/23 12:57 Blood Pressure 146/60 H 02/26/23 12:57 Pulse Oximetry 98 02/26/23 12:57 Temperature 36.6 C 02/26/23 12:57 Temperature Source Skin 02/26/23 12:57 Pulse 75 02/26/23 12:57 Respiratory Rate 20 02/26/23 12:57 Blood Pressure 146/60 H 02/26/23 12:57 Blood Pressure Position Supine 02/26/23 12:57 Pulse Oximetry 98 02/26/23 12:57 Oxygen Delivery Method Room Air 02/26/23 12:57 Oxygen Flow Rate 0 02/26/23 12:57 Pain Level 0 02/26/23 12:57
[2023-02-26 13:12] VITALS: RESP 16
[2023-02-26 13:19] LABS: HCT 45.1 % (40.0-50.0); HGB 15.6 g/dL (13.5-17.5); MCH 29.2 pg (27.0-33.0); MCHC 34.6 % (32.0-36.0); MCV 84 fL (80-95); Platelet Count 293 10^3/uL (130-400); RBC 5.35 10^6/uL (4.36-5.78); RDW 12.8 % (11.8-14.1); WBC 8.33 10^3/uL (4.4-10.8)
[2023-02-26 13:20] LABS: Absolute Basophil Count 0.05 10^3/uL (0.0-0.2); Absolute Eosinophil Count 0.08 10^3/uL (0.0-0.7); Absolute Lymphocyte Count 3.33 10^3/uL (1.2-3.4); Absolute Monocyte Count 0.62 10^3/uL (0.1-0.8); Absolute Neutrophil Count 4.21 10^3/uL (1.2-6.7); Basophils % 0.6; Diff Comment Diff Reviewed; Immature Grans % 0.4; MPV 10.3 fL (8.0-11.0); Monocytes % 7.4; Neutrophils % 50.6; RBC Morphology Normal
[2023-02-26 13:33] LABS: PTT Activated 24.1 sec (21.5-31.9); Prothrombin Time 10.4 sec (9.3-11.0)
[2023-02-26 13:39] LABS: Alkaline Phosphatase 107 U/L (46-116); Anion Gap 11.3 mmol/L (3-11); BUN 18 mg/dL (7-18); Bilirubin, Total 0.6 mg/dL (0.2-1.0); CO2 27.7 mmol/L (21.0-32.0); Calcium 9.6 mg/dL (8.5-10.1); Chloride 101 mmol/L (98-107); Estimated GFR 81.98 (mL/min/1.73m2); Glucose 127 mg/dL (74-106); Potassium 3.5 mmol/L (3.5-5.1); Sodium 140 mmol/L (136-145); Total Protein 8.2 g/dL (6.4-8.2)
[2023-02-26 13:40] LABS: ALT 68 U/L (16-63); AST 31 U/L (15-37); Magnesium 1.9 mg/dL (1.8-2.4); Troponin I < 50 ng/L (<or=60)
[2023-02-26 13:42] LABS: Lab Add On Test DONE
[2023-02-26 14:08] LABS: NT-proBNP 59 pg/mL (<300)
--- NOTE | 2023-02-26 14:15 | DI.RAD_ITS ---
Exam(s) XR CHEST 2V PA LATERAL EXAM: XR CHEST 2V PA LATERAL CLINICAL HISTORY: Chest Pain, SOB TECHNIQUE: 2D digital imaging was performed of the chest. Three images were obtained. PA and later al views were obtained. COMPARISON: CR XR CHEST 2V PA LATERAL from 12/01/2018 FINDINGS: MEDIASTINUM: Normal. HEART: Normal. PULMONARY VASCULATURE: Normal. LUNGS: Clear. PLEURAL SPACE: No pleural effusion or pneumothorax. BONE:Within normal limits for the patient's age. OTHER FINDINGS:Normal. IMPRESSION: No acute pulmonary findings. DATA REPOSITORY: RADIATION DOSE DELIVERED:
--- NOTE | 2023-02-26 16:45 | RT.EKG_ITS ---
APPROVED REPORT Exam: Resting ECG Reason for Exam: repeat Patient Location: E HR:59 bpm ECG Measurements Heart Rate 59 AXIS IL 191 P 48 QRSd 161 QRS 58 QT 447 T 4 QTc 444 Conclusion Sinus bradycardia...rate< 60 Right bundle branch block...QRSd>120, terminal axis(90,270) Physician: stable from prior ekg today, change persists compared to old ekgs
[2023-02-26 16:52] LABS: Troponin I < 50 ng/L (<or=60)
--- NOTE | 2023-02-26 17:16 | W.ED.GENAD ---
Discharge Plan Disposition Patient Disposition: Home Condition: Stable Discharge Details Clinical Impression: Chest pain Primary Care Provider: Denise Hooker ED Provider: Rosemarie Lowe Home Meds and New Rx's Prescriptions: Continued multivitamin Tablet 1 tab PO DAILY insulin lispro protamin-lispro [Humalog Mix 75-25 KwikPen] 100 unit/mL (75-25) insulin pen 44 unit subcut BID Rx Instructions: 44 units Q AM and 40 units Q PM ranolazine 500 mg tablet extended release 12 hr 500 mg PO BID clotrimazole 1 % cream 1 applic topical BID Patient Comments: NO LONGER TAKING PER PT 02/26/23 cholecalciferol (vitamin D3) 25 mcg (1,000 unit) capsule 25 mcg PO DAILY Trulicity 1.5 mg/0.5 mL pen injector 1.5 mg subcut QWEEK Patient Comments: NO LONGER TAKING PER PT 02/26/23 metformin 500 mg tablet 1,000 mg PO DAILY Patient Comments: NO LONGER TAKING PER PT 02/26/23 nitroglycerin 0.4 MG tablet, sublingual 0.4 mg Sublingual PRN PRN metoprolol succinate [Toprol XL] 100 MG tablet extended release 24 hr 150 mg PO QAM Patient Comments: NO LONGER TAKING PER PT 02/26/23 lisinopril 5 MG tablet 5 mg PO QAM amlodipine 10 MG tablet 10 mg PO QAM rosuvastatin [Crestor] 40 MG tablet 40 mg PO DAILY Farxiga 5 mg tablet 5 mg PO DAILY Patient Comments: TAKE ONE TABLET BY MOUTH EVERY DAY dexamethasone 0.5 mg/5 mL elixir See Rx Instructions .ROUTE .COMPLEX Patient Comments: RINSE WITH 1 TEASPOONFUL FOR 2MIN FOUR TIMES A DAY DO NOT SWALLOW Rx Instructions: see aBOVE aspirin 81 mg Tablet,Chewable 81 mg PO DAILY trazodone 50 mg Tablet 50 mg PO QHS acetaminophen 500 mg tablet 1,000 mg PO TID Qty: 90 3RF Discharge Instructions Instructions: Chest Pain (ED) Additional Instructions: Call your [facility] mobility [facility] first thing tomorrow morning for an appointment as soon as possible. Call 911 and return here sooner for new or worsening symptoms Referrals: Denise Hooker [Primary Care Provider] - Discharge Data Discharge Date/Time-TO BE ENTERED AT DEPARTURE: 02/26/23 17:42 Medical Decision Making Patient has remained chest pain-free and hemodynamically stable repeat troponin remains negative. Plan will be to follow-up up with cardiology outpatient or return here sooner for new or worsening symptoms. case discussed with cardiology at [facility] [place], they recommend close follow up with cardiology, will discuss with [facility] and advised patient to call in am for follow up Medical Records Medical records reviewed: Yes I reviewed the patient's medical records. HPI General Mode of arrival: ambulatory. Date/Time Provider Initiated Documentation: 02/26/23 13:28. Limitations to Documentation: no limitations. Information obtained by: patient, RN notes reviewed and old records reviewed. HPI Narrative: See note by Herminia Canales for history of present illness Related Data Home Medications Medication Instructions Recorded Confirmed amlodipine 10 mg tablet 10 mg PO QAM 07/23/14 02/26/23 lisinopril 5 mg tablet 5 mg PO QAM 07/23/14 02/26/23 metoprolol succinate 100 mg 150 mg PO QAM 07/23/14 12/04/22 tablet,extended release 24 hr (Toprol XL) nitroglycerin 0.4 mg sublingual 0.4 mg sublingual PRN PRN 07/23/14 02/26/23 tablet rosuvastatin 40 mg tablet (Crestor) 40 mg PO DAILY 07/23/14 02/26/23 trazodone 50 mg tablet 50 mg PO QHS 12/01/18 02/26/23 dapagliflozin propanediol 5 mg 5 mg PO DAILY 03/18/20 02/26/23 tablet (Farxiga) insulin lispro protamine-lispro 44 unit subcut BID 02/04/22 02/26/23 100 unit/mL (75-25) subcutaneous pen (Humalog Mix 75-25 KwikPen) ranolazine 500 mg tablet,extended 500 mg PO BID 02/04/22 02/26/23 release,12 hr multivitamin 1 tab PO DAILY 04/17/22 02/26/23 acetaminophen 500 mg tablet 1,000 mg PO TID #90 tabs 04/22/22 02/26/23 cholecalciferol (vitamin D3) 25 25 mcg PO DAILY 05/22/22 02/26/23 mcg (1,000 unit) capsule clotrimazole 1 % topical cream 1 applic topical BID 05/22/22 12/02/22 dulaglutide 1.5 mg/0.5 mL 1.5 mg subcut QWEEK 12/12/22 subcutaneous pen injector (Trulicity) metformin 500 mg tablet 1,000 mg PO DAILY 12/12/22 aspirin 81 mg chewable tablet 81 mg PO DAILY 02/26/23 02/26/23 dexamethasone 0.5 mg/5 mL oral See Rx Instructions .Route .COMPLEX 02/26/23 02/26/23 elixir Previous Rx's Medication Instructions Recorded acetaminophen 500 mg tablet 1,000 mg PO TID #90 tabs 04/22/22 Allergies Allergy/AdvReac Type Severity Reaction Status Date / Time isosorbide AdvReac Verified 02/26/23 13:03 General Stated Complaint: Chest Pain ANDREA: 3 PFSH All Active Problems (Updated 02/26/23 @ 17:18 by Rosemarie Lowe NP) Chest pain (Acute) Essential hypertension (Chronic) Atherosclerotic heart disease [place] coronary artery w/angina pectoris (Chronic) Diabetes mellitus type 2 in obese (Chronic) Long-term insulin use in type 2 diabetes (Chronic) Tubular adenoma of colon (Chronic 03/27/17) Coronary artery disease (Chronic) Non-sustained ventricular tachycardia (Acute) Screening for colon cancer (Acute) Venous stasis dermatitis of left lower extremity (Acute) Chronic diarrhea (Acute) Medical History (Updated 02/26/23 @ 17:18 by Rosemarie Lowe NP) Adenomatous colon polyp Depression Depression with anxiety Diarrhea DM (diabetes mellitus) Elevated LFTs Fatty liver disease, nonalcoholic HLD (hyperlipidemia) HTN (hypertension) Nonsustained paroxysmal ventricular tachycardia NSTEMI (non-ST elevated myocardial infarction) 02/2020-pt. denies he had a NSTEMI, but states he had angina but no heart attack Obesity DEEPALI (obstructive sleep apnea) RLS (restless legs syndrome) Unstable angina Per pt. states this is not current, occured over 1/5 years ago, follows up with [facility] last seen 11/25/22 Vertigo Vitamin D deficiency Surgical History Colonoscopy - MAC (03/27/17) Coronary Stent 9 stents. Last placement on 02/11/16 Excision, Distal Clavicle (05/11/15) DR BROWN/LEFT History of total left hip replacement (04/22/22) History of umbilical hernia repair Rotator Cuff Repair (05/11/15) S/P cholecystectomy Status post amputation of lesser toe of right foot Fifth toe was removed Status post carpal tunnel release of both wrists Social History Smoking/Tobacco Use Status: Former Tobacco Use Quit Date: 07/20/92 Pack-years: 40 Tobacco: How many years used: 20 Smoking risk assessment performed?: Yes Alcohol Intake: never Drug use: Daily Substance use type: other Details: uses 0.5-1 THC gummy [facility], last use 12/03/22 Household members: none Housing: house 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 Current gender identity: male What type of physical activity do you participate in: none Do you feel safe at home: Yes Do you feel safe in your relationship?: Yes Course Vital Signs Vital signs: Vital Signs Temperature 36.6 C 02/26/23 12:57 Pulse 75 02/26/23 12:57 Respiratory Rate 20 02/26/23 12:57 Blood Pressure 146/60 H 02/26/23 12:57 Pulse Oximetry 98 02/26/23 12:57 Temperature 36.6 C 02/26/23 12:57 Temperature Source Skin 02/26/23 12:57 Pulse 75 02/26/23 12:57 Respiratory Rate 16 02/26/23 13:12 Respiratory Effort Normal 02/26/23 13:12 Respiratory Depth Normal 02/26/23 13:12 Respiratory Pattern Normal 02/26/23 13:12 Blood Pressure 146/60 H 02/26/23 12:57 Blood Pressure Position Supine 02/26/23 12:57 Pulse Oximetry 98 02/26/23 12:57 Oxygen Delivery Method Room Air 02/26/23 12:57 Oxygen Flow Rate 0 02/26/23 12:57 Pain Level 6 02/26/23 13:12 Lab/Test Results Lab/Test Results: Laboratory Tests Range/Units 02/26/23 02/26/23 02/26/23 12:55 12:55 12:55 WBC (4.4-10.8) 10^3/uL 8.33 RBC (4.36-5.78) 10^6/uL 5.35 Hgb (13.5-17.5) g/dL 15.6 Hct (40.0-50.0) % 45.1 MCV (80-95) fL 84 MCH (27.0-33.0) pg 29.2 MCHC (32.0-36.0) % 34.6 RDW (11.8-14.1) % 12.8 Plt Count (130-400) 10^3/uL 293 MPV (8.0-11.0) fL 10.3 Immature Gran % 0.4 Neutrophils % 50.6 Lymphocytes % 40.0 Monocytes % 7.4 Eosinophils % 1.0 Basophils % 0.6 Nucleated RBC % (0.0-0.3) % 0.0 Absolute Neutrophils (1.2-6.7) 10^3/uL 4.21 Absolute Lymphocytes (1.2-3.4) 10^3/uL 3.33 Absolute Monocytes (0.1-0.8) 10^3/uL 0.62 Absolute Eosinophils (0.0-0.7) 10^3/uL 0.08 Absolute Basophils (0.0-0.2) 10^3/uL 0.05 RBC Morphology Normal PT (9.3-11.0) sec 10.4 INR (0.9-1.1) 1.0 APTT (21.5-31.9) sec 24.1 Sodium (136-145) mmol/L 140 Potassium (3.5-5.1) mmol/L 3.5 Chloride (98-107) mmol/L 101 Carbon Dioxide (21.0-32.0) mmol/L 27.7 Anion Gap (3-11) mmol/L 11.3 H BUN (7-18) mg/dL 18 Creatinine (0.70-1.30) mg/dL 1.0 Est GFR (CKD-EPI 2020) (mL/min/1.73m2) 81.98 Glucose (74-106) mg/dL 127 H Calcium (8.5-10.1) mg/dL 9.6 Magnesium (1.8-2.4) mg/dL 1.9 Total Bilirubin (0.2-1.0) mg/dL 0.6 AST (15-37) U/L 31 ALT (16-63) U/L 68 H Alkaline Phosphatase (46-116) U/L 107 Troponin I (<or=60) ng/L < 50 NT-Pro-B Natriuret Pep (<300) pg/mL Total Protein (6.4-8.2) g/dL 8.2 Albumin (3.4-5.0) g/dL 4.0 Add-On Test Request Range/Units 02/26/23 02/26/23 02/26/23 12:55 13:11 16:20 WBC (4.4-10.8) 10^3/uL RBC (4.36-5.78) 10^6/uL Hgb (13.5-17.5) g/dL Hct (40.0-50.0) % MCV (80-95) fL MCH (27.0-33.0) pg MCHC (32.0-36.0) % RDW (11.8-14.1) % Plt Count (130-400) 10^3/uL MPV (8.0-11.0) fL Immature Gran % Neutrophils % Lymphocytes % Monocytes % Eosinophils % Basophils % Nucleated RBC % (0.0-0.3) % Absolute Neutrophils (1.2-6.7) 10^3/uL Absolute Lymphocytes (1.2-3.4) 10^3/uL Absolute Monocytes (0.1-0.8) 10^3/uL Absolute Eosinophils (0.0-0.7) 10^3/uL Absolute Basophils (0.0-0.2) 10^3/uL RBC Morphology PT (9.3-11.0) sec INR (0.9-1.1) APTT (21.5-31.9) sec Sodium (136-145) mmol/L Potassium (3.5-5.1) mmol/L Chloride (98-107) mmol/L Carbon Dioxide (21.0-32.0) mmol/L Anion Gap (3-11) mmol/L BUN (7-18) mg/dL Creatinine (0.70-1.30) mg/dL Est GFR (CKD-EPI 2020) (mL/min/1.73m2) Glucose (74-106) mg/dL Calcium (8.5-10.1) mg/dL Magnesium (1.8-2.4) mg/dL Total Bilirubin (0.2-1.0) mg/dL AST (15-37) U/L ALT (16-63) U/L Alkaline Phosphatase (46-116) U/L Troponin I (<or=60) ng/L < 50 NT-Pro-B Natriuret Pep (<300) pg/mL 59 Total Protein (6.4-8.2) g/dL Albumin (3.4-5.0) g/dL Add-On Test Request DONE Sign Out Sign Out Data: Sign Out Comment: 67-year-old male with significant cardiac history and 9 stents presents with EKG changes and unstable angina. Patient took a nitro prior to arrival was given 325 mg of aspirin by EMS. He has been chest pain or symptom-free since he has been here. He does have a new right bundle branch block noted on his EKG. Initial troponin within normal limits. Pending serial troponin, consult with cardiology. And disposition. Last updated by Erin Bob NP at 02/26/23 16:06
== END 2023-02-26 17:42 | disposition home or self-care (01) ==
PROVIDERS: Registered Nurse Emergency; Emergency Provider Nurse Practitioner Acute Care; PCP Nurse Practitioner Family
DX: R07.9 Chest pain, unspecified (principal); I10 Essential (primary) hypertension; I45.19 Other right bundle-branch block; R06.02 Shortness of breath; I25.10 Atherosclerotic heart disease of native coronary artery without angina pectoris; I25.2 Old myocardial infarction; E11.9 Type 2 diabetes mellitus without complications; G47.33 Obstructive sleep apnea (adult) (pediatric); Z79.4 Long term (current) use of insulin; Z95.5 Presence of coronary angioplasty implant and graft
CPT/HCPCS: 80053; 93005; 99284; 71046; 83735; 83880; 84484; 85025; 85610; 85730; 93010; 99283

== ENCOUNTER → 2023-03-03 12:42 | Outpatient (BNVA) | payer MEDICARE, BC, SELFPAY | PROVIDERS: PCP Nurse Practitioner Family; Referring Provider Nurse Practitioner Family; Visit Provider Nurse Practitioner Gerontology | DX: R31.29 Other microscopic hematuria (principal); I10 Essential (primary) hypertension | CPT/HCPCS: 81003; 99214 ==

== ENCOUNTER 2023-03-03 17:12 | Outpatient (REF) | payer MEDICARE, BC, SELFPAY ==
[2023-03-03 14:42] LABS: Bilirubin Negative (Negative); Blood Trace-lysed (Negative); Clarity Clear (Clear); Glucose 500 mg/dL (Negative); Ketones Negative (Negative); Leukocyte Esterase Negative (Negative); Nitrite Negative (Negative); Urobilinogen 0.2 mg/dL (Up to 0.2)
[2023-03-03 14:50] LABS: Bacteria Negative HPF (Negative); C & S Indicated? No; Casts Negative LPF (Negative); Crystals Negative HPF (Negative); Epithelial Cells Rare HPF (Negative); Mucus Negative (Negative); RBC 0-2 HPF (0-2); WBC Negative HPF (0-5)
== END 2023-03-03 17:13 | disposition home or self-care (01) ==
LOC: LBN 17:12
PROVIDERS: PCP Nurse Practitioner Family; Visit Provider Nurse Practitioner Gerontology
DX: R31.9 Hematuria, unspecified (principal)
CPT/HCPCS: 81003; 81015

== ENCOUNTER 2023-04-23 10:58 | Outpatient (CLI) | payer MEDICARE, BC, SELFPAY ==
--- NOTE | 2023-04-23 10:30 | DI.RAD_ITS ---
Exam(s) XR HIP LT AP LAT ONLY EXAM: XR HIP LT AP LAT ONLY CLINICAL HISTORY: YEARLY F/U LEFT CARLITO. TECHNIQUE: 2D digital imaging was performed. COMPARISON: CR XR HIP LT COMPLETE AP PELVIS from 05/05/2022 FINDINGS: Two views. Stable position alignment of the components of the left hip prosthesis. No fracture or loosening mickey dent. IMPRESSION: Stable satisfactory appearance DATA REPOSITORY: RADIATION DOSE DELIVERED:
== END 2023-04-23 10:59 | disposition home or self-care (01) ==
LOC: DIORS 10:58
PROVIDERS: PCP Nurse Practitioner Family; Referring Provider Nurse Practitioner Family; Visit Provider Student in an Organized Health Care Education/Training Program
DX: Z47.1 Aftercare following joint replacement surgery (principal); Z96.642 Presence of left artificial hip joint
CPT/HCPCS: 99213; 73502

== ENCOUNTER 2023-05-08 02:20 | Outpatient (CLI) | payer MEDICARE, BC, SELFPAY ==
[2023-05-08 11:20] LABS: Hemoglobin A1C 8.2 % (<5.7)
[2023-05-08 11:23] LABS: COMMENT (LAB VIEW ONLY) 40.03 mg/dL; Microalb ug/mg Crea 13.5 ug/mg Cr
[2023-05-08 11:33] LABS: Anion Gap 10.9 mmol/L (3-11); BUN 16 mg/dL (7-18); CO2 27.1 mmol/L (21.0-32.0); CREATININE 0.9 mg/dL (0.70-1.30); Calcium 9.5 mg/dL (8.5-10.1); Chloride 102 mmol/L (98-107); Estimated GFR 93.03 (mL/min/1.73m2); Glucose 216 mg/dL (74-106); Potassium 4.2 mmol/L (3.5-5.1); Sodium 140 mmol/L (136-145)
[2023-05-10 11:21] LABS: Fructosamine 318 mcmol/L (200 - 285)
== END 2023-05-08 02:21 | disposition home or self-care (01) ==
PROVIDERS: PCP Nurse Practitioner Family; Visit Provider Internal Medicine Endocrinology, Diabetes & Metabolism
DX: E11.65 Type 2 diabetes mellitus with hyperglycemia (principal)
CPT/HCPCS: 36415; 80048; 82043; 82570; 82985; 83036

== ENCOUNTER → 2023-05-20 03:05 | Outpatient (CLI) | payer MEDICARE, BC, SELFPAY ==
--- NOTE | 2023-05-20 07:30 | DI.US_ITS ---
APPROVED REPORT EXAM: Comprehensive 2D, Doppler, and color-flow Echocardiogram Patient Location: Out-Patient Host: Hanna Gray RDCS (AE) Indications: Murmur, Exertional SOB, Chest pain, HTN, CAD, h/o stent Other Information Study Quality: Adequate Conclusion Normal left ventricular wall thickness and chamber size. Ejection fraction is 55 to 60%. Wall motio n is normal Normal right ventricular size and systolic function Both atria are normal in size There is no structural or hemodynamically significant valvular disease Wall motion Left Ventricle The left ventricle is normal size. The left ventricular systolic function is normal. The left ventric ular ejection fraction is within the normal range. There is normal left ventricular wall thickness. T here is normal LV segmental wall motion. There is no ventricular septal defect visualized. LVEF is 56 %. Right Ventricle Right ventricle is grossly normal in size. Right ventricular systolic function is grossly normal. Atria The left atrium size is normal. The right atrium size is normal. The interatrial septum is intact wit h no evidence for an atrial septal defect. Aortic Valve The aortic valve is normal in structure. Aortic valve is trileaflet. No hemodynamically significant v alvular aortic stenosis. No aortic regurgitation is present. Mitral Valve The mitral valve is normal in structure. No evidence of mitral valve stenosis. Trace mitral regurgita tion. Tricuspid Valve The tricuspid valve is normal in structure. There is no tricuspid valve stenosis. Trace tricuspid reg urgitation. Unable to assess PA pressure. Pulmonic Valve The pulmonary valve is normal in structure. There is no pulmonic valvular stenosis. There is no pulmo axel valvular regurgitation. Great Vessels The aortic root is normal in size. The ascending aorta is normal in size. Aortic arch is not well vis ualized. IVC is normal in size and collapses >50% with inspiration. Pericardium There is no pericardial effusion. 2D Dimensions IVSD d PLAX 0.79 cm M: 0.6-1.2 Ao Root d 3.41 cm M: 3.1 - 3.7 LVPW d PLAX 0.84 cm M: 0.6 - 1.2 Ao Asc Diam d 3.25 cm M: 2.6 - 3.4 LVID d PLAX 5.12 cm M: 4.2 - 5.8 LVDs 3.63 cm M: 2.5 - 4.0 LV EF Teichholz 55.5 % FS 29.08 % LV EDV (Teich) 125.2 mL LV ESV (Teich) 55.7 mL M-Mode TAPSE 2.65 cm (M/F) >1.7 Auto EF LV EDV A4C 177.3 mL LV EDV A2C 145.7 mL LV EDV BP LV ESV A4C 85.2 mL LV ESV A2C 64.0 mL LV ESV BP LVEF(%) A4C 51.9 % LVEF(%) A2C 56.1 % LVEF(%) BP LV SV A4C 92.1 ml LV SV A2C 81.8 ml LV SV BP LV CO A4C 5.3 L/min LV CO A2C 4.8 L/min LV CO BP HR A4C 57.97 BPM HR A2C 58.16 BPM LV EDV Index (BP) LA Volume LA Length A4C 5.3 cm LA Length A2C 5.3 cm LA Area A4C s 17.52 cm2 LA Area A2C s 20.79 cm2 LA Vol A4C A-L 49.12 mL LA Vol A2C A-L 69.05 mL LA Vol Biplane A-L 58.3 mL LA Vol/BSA A4C A-L LA Vol/BSA A2C A-L LA Vol/BSA BP A-L 26.6 mL/m2 LA Vol A4C MOD 46.0 mL LA Vol A2C MOD 66.1 mL LA Vol BP MOD 55.1 mL RA Volume RA Area A4C 13.4 cm2 RA ESV A4C (A-L) 33.7mL RA Vol/BSA A4C A-L RA Length A4C 4.5 cm RA ESV A4C (MOD) 31.2mL LV Diastology MV E' medial 0.092 (>0.07 m/s) MV E Vmax 1.00 (0.4-1.3 m/s) MV E/E' MED 10.88 (<14) MV A Vmax 0.80 (0.4-1.3 m/s) MV E' lateral 0.121 (>0.1 m/s) E/A Ratio 1.3 MV E/E' LAT 8.25 (<14) MV E' Average 0.107 m/s MV E/E'(average) 9.38 Aortic Valve AoV Vmax 2.12 m/s LVOT Vmax 1.38 m/s AoV Peak Grad 17.9 mmHg LVOT Peak Grad 7.7 mmHg AoV Area (Vmax) 1.81 cm2 LVOT VTI 0.292 m AoV VTI 0.416 m LVOT Mean Grad 3.7 mmHg AoV Mean Adam. 1.31 m/s LVOT SV 80.77 mL AoV Mean Grad 8.1 mmHg LVOT Diam s 1.85 cm AoV Area (VTI) 1.94 cm2 Velocity Ratio 0.65 Mitral Valve MV DT 207 (160-240 msec) MV Vmax TIPS 1.00 m/s MV Mean Grad 1.2 (<2mmHg) MV VTI 0.381 m Pulmonary Valve PV Vmax 1.25 (0.5-1.5 m/s) RVOT Vmax 0.59 m/s PV Peak Grad 6.2 mmHg RVOT Peak Gr. 1.4 mmHg PV Mean Adam 0.96 m/s RVOT VTI 0.143 m PV Mean Grad 3.9 mmHg RVOT Mean Gr. 0.7 mmHg Tricuspid Valve RA Pressure 3.00 mmHg TV S' 0.15 m/s
== END ==
PROVIDERS: PCP Nurse Practitioner Family; Visit Provider Nurse Practitioner Family
DX: R01.1 Cardiac murmur, unspecified (principal)
CPT/HCPCS: 93306

== ENCOUNTER 2023-08-03 05:19 | Outpatient (CLI) | payer MEDICARE, BC, SELFPAY ==
[2023-08-03 12:09] LABS: Hemoglobin A1C 6.9 % (<5.7)
[2023-08-03 12:20] LABS: Anion Gap 10.7 mmol/L (3-11); BUN 17 mg/dL (7-18); CO2 27.3 mmol/L (21.0-32.0); CREATININE 1.1 mg/dL (0.70-1.30); Calcium 9.6 mg/dL (8.5-10.1); Chloride 100 mmol/L (98-107); Estimated GFR 73.12 (mL/min/1.73m2); Glucose 120 mg/dL (74-106); Sodium 138 mmol/L (136-145)
[2023-08-04 16:39] LABS: Fructosamine 267 mcmol/L (200 - 285)
== END 2023-08-03 05:20 | disposition home or self-care (01) ==
LOC: LBO 05:20
PROVIDERS: PCP Nurse Practitioner Family; Visit Provider Internal Medicine Endocrinology, Diabetes & Metabolism
DX: E11.65 Type 2 diabetes mellitus with hyperglycemia (principal)
CPT/HCPCS: 36415; 80048; 82985; 83036

== ENCOUNTER → 2023-09-14 03:07 | Outpatient (CLI) | payer MEDICARE, BC, SELFPAY ==
--- NOTE | 2023-09-14 | DI.US_ITS ---
Exam(s) US AAA SCREENING EXAM: US AAA SCREENING CLINICAL HISTORY: SCREENING FOR CARDIOVASCULAR DISEASE,Z13.6 COMPARISON: No exams were available for comparison FINDINGS: Abdominal Aorta: Proximal: 2.6 cm Mid: 2.6 cm Distal: 2.5 cm Iliacs: Right: 1.6 cm Left: 1.5 cm IMPRESSION: No evidence of abdominal aortic aneurysm. DATA REPOSITORY:
--- NOTE | 2023-09-14 | DI.US_ITS ---
Exam(s) US ABDOMEN LIMITED EXAM: US ABDOMEN LIMITED CLINICAL HISTORY: FATTY LIVER,K76.0 TECHNIQUE: Ultrasound abdomen performed using standard protocol. COMPARISON: CT CT ABDOMEN PELVIS W from 12/09/2022 FINDINGS: LIVER: Enlarged at 19.6 cm.. Increasedechogenicity, consistent with [id number] hepatic steatos is.. No focal liver lesions are seen.. GALLBLADDER: Status post cholecystectomy. BILIARY SYSTEM: No intrahepatic or extrahepatic biliary ductal dilation. RIGHT KIDNEY: Normal size. No evidence of renal calculi. No evidence of hydronephrosis. No suspicious renal mass. 3.2 centimeter cyst mid right kidney. Stable from prior CT. PANCREAS: Normal where visualized. ABDOMINAL AORTA AND IVC: Visualized portions normal caliber. ASCITES: None seen. IMPRESSION: [id number] hepatic steatosis. DATA REPOSITORY:
== END ==
PROVIDERS: PCP Nurse Practitioner Family; Visit Provider Nurse Practitioner Family
DX: K76.0 Fatty (change of) liver, not elsewhere classified (principal); Z13.6 Encounter for screening for cardiovascular disorders; Z90.49 Acquired absence of other specified parts of digestive tract
CPT/HCPCS: 76706; 76705

== ENCOUNTER 2023-12-04 12:40 | Outpatient (CLI) | payer MEDICARE, BC, SELFPAY ==
[2023-12-04 08:50] LABS: Hemoglobin A1C 6.6 % (<5.7)
[2023-12-04 08:56] LABS: Anion Gap 11.6 mmol/L (3-11); BUN 17 mg/dL (7-18); CO2 26.4 mmol/L (21.0-32.0); Calcium 9.4 mg/dL (8.5-10.1); Chloride 100 mmol/L (98-107); Estimated GFR 81.47 (mL/min/1.73m2); Glucose 229 mg/dL (74-106); Potassium 4.2 mmol/L (3.5-5.1); Sodium 138 mmol/L (136-145)
[2023-12-07 17:30] LABS: C-Peptide 4.2 ng/mL (1.1 - 4.4)
== END 2023-12-04 12:41 | disposition home or self-care (01) ==
LOC: LBO 12:40
PROVIDERS: PCP Nurse Practitioner Family; Visit Provider Internal Medicine Endocrinology, Diabetes & Metabolism
DX: E11.65 Type 2 diabetes mellitus with hyperglycemia (principal)
CPT/HCPCS: 36415; 80048; 83036; 84681

== ENCOUNTER 2023-12-21 08:17 | Outpatient (CLI) | payer MEDICARE, BC, SELFPAY ==
--- NOTE | 2023-12-21 08:00 | DI.RAD_ITS ---
Exam(s) XR HIP RT COMPLETE AP PELVIS EXAM: XR HIP RT COMPLETE AP PELVIS CLINICAL HISTORY: RIGHT HIP PAIN. TECHNIQUE: 2D digital imaging was performed of the right hip. Two images were obtained. AP pelvis a nd lateral right hip views were obtained. COMPARISON: CR XR HIP LT COMPLETE AP PELVIS from 05/05/2022 CR XR HIP LT AP LAT ONLY from 04/23/2023 FINDINGS: BONES: No acute fracture is present. No bony destructive lesion is seen. JOINTS: No dislocation present. There is a left total hip replacement which appears stable. There is moderate narrowing of the superior joint space of the right hip. There is a well corticated osseous density lateral to the right acetabulum which appears chronic. SOFT TISSUE: Vascular calcifications are present. IMPRESSION: 1. Degenerative changes of the right hip. 2. Left total hip replacement. DATA REPOSITORY: RADIATION DOSE DELIVERED:
== END 2023-12-21 08:18 | disposition home or self-care (01) ==
LOC: DIORS 08:17
PROVIDERS: PCP Nurse Practitioner Family; Referring Provider Nurse Practitioner Family
DX: M16.11 Unilateral primary osteoarthritis, right hip
CPT/HCPCS: 99213; 73502

== ENCOUNTER → 2024-01-01 09:44 | Outpatient (BNVA) | payer MEDICARE, BC, SELFPAY | PROVIDERS: PCP Nurse Practitioner Family; Referring Provider Nurse Practitioner Family; Visit Provider Physician Assistant | DX: M16.11 Unilateral primary osteoarthritis, right hip (principal) | CPT/HCPCS: 20611; J1010 ==

== ENCOUNTER 2024-01-02 18:50 | Emergency (ER) | payer MEDICARE, BC, SELFPAY ==
[2024-01-02] VITALS (43 sets, daily range): BP systolic 140–162; BP diastolic 49–75; PULSE 54–75; RESP 12–25; TEMP 36.9; O2SAT 93–98
--- NOTE | 2024-01-02 18:45 | RT.EKG_ITS ---
APPROVED REPORT Exam: Resting ECG Reason for Exam: chest pain Patient Location: E HR:65 bpm ECG Measurements Heart Rate 65 AXIS [place] 178 P 60 QRSd 153 QRS 81 QT 430 T 3 QTc 446 Conclusion Sinus rhythm...normal P axis, V-rate 60- 99 Right bundle branch block...QRSd>120, terminal axis(90,270) sinus rhtyhm, normal axis, RBBB, note single lead III with st segment elevation, largely unchanged fr om prior ekg
--- NOTE | 2024-01-02 19:00 | DI.RAD_ITS ---
Exam(s) XR PORTABLE CHEST AP EXAM: XR PORTABLE CHEST AP CLINICAL HISTORY: Chest Pain TECHNIQUE: 2D digital imaging was performed of the chest. One image was obtained. An AP view was ob tained. COMPARISON: CR XR CHEST 2V PA LATERAL from 02/26/2023 FINDINGS: MEDIASTINUM: Normal. HEART: Normal. PULMONARY VASCULATURE: Stable. LUNGS: Clear. PLEURAL SPACE: No pleural effusion or pneumothorax. BONE:Within normal limits for the patient's age. OTHER FINDINGS:Normal. IMPRESSION: No acute pulmonary findings. DATA REPOSITORY: RADIATION DOSE DELIVERED:
--- NOTE | 2024-01-02 19:07 | ED.GENADUL_ITS ---
Discharge Plan Disposition Patient Disposition: Home Condition: Stable Discharge Details Clinical Impression: SOB (shortness of breath), Chest pain, Pneumonia Primary Care Provider: Denise Hooker ED Provider: Erin Bob Home Meds and New Rx's Prescriptions: New azithromycin 250 mg tablet 250 mg PO DAILY 4 Days Qty: 4 0RF Rx Instructions: start on day 2 of therapy, Take one tablet by mouth daily. Continued multivitamin Tablet 1 tab PO DAILY ranolazine 500 mg tablet extended release 12 hr 500 mg PO BID clotrimazole 1 % cream 1 applic topical BID Patient Comments: NO LONGER TAKING PER PT 02/26/23 cholecalciferol (vitamin D3) 25 mcg (1,000 unit) capsule 25 mcg PO DAILY insulin lispro protamin-lispro [Humalog Mix 75-25 KwikPen] 100 unit/mL (75-25) insulin pen 30 unit subcut TID sertraline 50 mg tablet 50 mg PO DAILY insulin glargine U-300 conc [Toujeo Max U-300 SoloStar] 300 unit/mL (3 mL) insulin pen 50 unit subcut DAILY nitroglycerin 0.4 MG tablet, sublingual 0.4 mg Sublingual PRN PRN metoprolol succinate [Toprol XL] 100 MG tablet extended release 24 hr 150 mg PO QAM Patient Comments: NO LONGER TAKING PER PT 02/26/23 lisinopril 5 MG tablet 5 mg PO QAM amlodipine 10 MG tablet 10 mg PO QAM rosuvastatin [Crestor] 40 MG tablet 40 mg PO DAILY dapagliflozin propanediol [Farxiga] 5 mg tablet 10 mg PO DAILY Patient Comments: TAKE ONE TABLET BY MOUTH EVERY DAY aspirin 81 mg Tablet,Chewable 81 mg PO DAILY trazodone 50 mg Tablet 50 mg PO QHS acetaminophen 500 mg tablet 1,000 mg PO TID Qty: 90 3RF Discharge Instructions Instructions: Angina (DC), Shortness of Breath, Adult ED, Pneumonia, Adult ED Additional Instructions: At this time there may be an early pneumonia on the right side on the chest x- ray. There is no evidence of heart attack or congestive heart failure. Your chest pain is most likely due to the angina that you have had in the past. Please follow-up with cardiology within the next week, follow up with primary care provider in 3-5 days to discuss stress test if needed. Return to ED sooner if any worsening chest pain, fever, worsening shortness of breath, swelling in your legs or concerns. Using the antibiotic as directed. You were given the first dose here. Referrals: [facility] [Outside] - 1 week (Cardiology) Denise Hooker [Primary Care Provider] - 5 days HPI General Mode of arrival: ambulatory . Date/Time Provider Initiated Documentation: 01/02/24 18:54 . Limitations to Documentation: no limitations . Information obtained by: patient, family, RN notes reviewed and old records reviewed . HPI Narrative: 68-year-old male presents to the ER with a chief complaint of chest pain which radiates up into his jaw and neck with eye aching which occurred prior to arrival after taking a walk today at approximately 1645. Patient did take 3 sublingual nitro prior to arrival and has had intermittent chest pain on and off. His chest pain did come back after the nitro. Upon initial presentation and my examination he is chest pain-free at this time. Patient has had a history of 2 MIs with 9 stents placed. He does see cardiology at [place]. Past medical history includes nonsustained paroxysmal ventricular tachycardia, vitamin D deficiency, diabetes mellitus, obstructive sleep apnea, unstable angina, NSTEMI, restless leg syndrome, hypertension and hyperlipidemia. He does take amlodipine, metoprolol and insulin which she did take his normal medications this morning. He also took one 81 mg baby aspirin prior to arrival. Related Data Home Medications Medication Instructions Recorded Confirmed amlodipine 10 mg tablet 10 mg PO QAM 07/23/14 01/02/24 lisinopril 5 mg tablet 5 mg PO QAM 07/23/14 01/02/24 metoprolol succinate 100 mg 150 mg PO QAM 07/23/14 01/02/24 tablet,extended release 24 hr (Toprol XL) nitroglycerin 0.4 mg sublingual 0.4 mg sublingual PRN PRN 07/23/14 01/02/24 tablet rosuvastatin 40 mg tablet (Crestor) 40 mg PO DAILY 07/23/14 01/02/24 trazodone 50 mg tablet 50 mg PO QHS 12/01/18 01/02/24 ranolazine 500 mg tablet,extended 500 mg PO BID 02/04/22 01/02/24 release,12 hr multivitamin 1 tab PO DAILY 04/17/22 01/02/24 acetaminophen 500 mg tablet 1,000 mg (2 x 500 mg) PO TID #90 04/22/22 01/02/24 tabs cholecalciferol (vitamin D3) 25 25 mcg PO DAILY 05/22/22 01/02/24 mcg (1,000 unit) capsule clotrimazole 1 % topical cream 1 applic topical BID 05/22/22 01/02/24 aspirin 81 mg chewable tablet 81 mg PO DAILY 02/26/23 01/02/24 dapagliflozin propanediol 5 mg 10 mg PO DAILY 04/23/23 01/02/24 tablet (Farxiga) insulin glargine U-300 conc 300 50 unit subcut DAILY 11/24/23 01/02/24 unit/mL (3 mL) subcutaneous pen (Toujeo Max U-300 SoloStar) insulin lispro protamine-lispro 30 unit subcut TID 11/24/23 01/02/24 100 unit/mL (75-25) subcutaneous pen (Humalog Mix 75-25 KwikPen) sertraline 50 mg tablet 50 mg PO DAILY 11/24/23 01/02/24 azithromycin 250 mg tablet 250 mg PO DAILY Pneumonia 4 days 01/02/24 #4 tabs Previous Rx's Medication Instructions Recorded acetaminophen 500 mg tablet 1,000 mg (2 x 500 mg) PO TID #90 04/22/22 tabs azithromycin 250 mg tablet 250 mg PO DAILY Pneumonia 4 days 01/02/24 #4 tabs Allergies Allergy/AdvReac Type Severity Reaction Status Date / Time isosorbide AdvReac Other (See Verified 01/02/24 19:07 Comment) General Stated Complaint: Chest Pain ANDREA: 2 Review of Systems All systems reviewed & are unremarkable except as noted in HPI and below Cardiovascular Cardiovascular: Reports chest pain, Reports chest pain at rest, Reports chest pain with activity, Denies syncope, Denies pedal edema and Reports radiating jaw, neck or arm pain Gastrointestinal Gastrointestinal: Denies diarrhea, Denies nausea and Denies vomiting Neurologic Neurologic: Denies syncope Exam Narrative Exam Narrative: Constitutional: Alert and oriented x3. Appears stated age. Normal body habitus. Head: Normocephalic, no trauma. Eyes: Pupils PERRL, Red reflex noted, EOM's intact. Eyelids symmetrical without lesions, discharge, or swelling. ENT: Bilateral TM's WNL, External ear normal to inspection, no mastoid TTP, swelling, or erythema, Nasal turbinates WNL, no nasal discharge. Normal dentition, Posterior pharynx WNL, no exudate. Chest: RRR, Normal S1, S2, distal pulses intact. Resp: Lungs clear to auscultation bilaterally, no wheezes, rales, or rhonchi. Abdomen: Soft, non-distended, Normoactive bowel sounds all 4 quads. Musculoskeletal: Normal gait, Moves all 4 extremities without difficulty. Skin: No suspicious rashes or lesions. Capillary refill less than 2 sec. Neurologic: Cranial nerves II-XII intact. Alert and oriented x 3. Motor: No deficits noted. Sensory: Intact bilaterally all 4 extremities. Hematologic/Lymphatic: No ecchymosis, no lymphadenopathy. Course Vital Signs Vital signs: Vital Signs Temperature 36.9 C 01/02/24 19:01 Pulse 68 01/02/24 19:01 Respiratory Rate 16 01/02/24 19:01 Blood Pressure 161/49 H 01/02/24 19:01 Pulse Oximetry 98 01/02/24 19:01 Temperature 36.9 C 01/02/24 19:01 Pulse 68 01/02/24 19:01 Respiratory Rate 16 01/02/24 19:01 Respiratory Effort Normal 01/02/24 19:04 Respiratory Depth Normal 01/02/24 19:04 Blood Pressure 161/49 H 01/02/24 19:01 Pulse Oximetry 98 01/02/24 19:01 Oxygen Delivery Method Room Air 01/02/24 19:01 Oxygen Flow Rate 0 01/02/24 19:01 Pain Level 0 01/02/24 19:01 Medical Decision Making 68-year-old male presents to the ER with a chief complaint of chest pain which radiates up into his jaw and neck with eye aching which occurred prior to arrival after taking a walk today at approximately 1645. Patient did take 3 sublingual nitro prior to arrival and has had intermittent chest pain on and off. His chest pain did come back after the nitro. Upon initial presentation and my examination he is chest pain-free at this time. Patient has had a history of 2 MIs with 9 stents placed. He does see cardiology at [place]. Past medical history includes nonsustained paroxysmal ventricular tachycardia, vitamin D deficiency, diabetes mellitus, obstructive sleep apnea, unstable angina, NSTEMI, restless leg syndrome, hypertension and hyperlipidemia. He does take amlodipine, metoprolol and insulin which she did take his normal medications this morning. He also took one 81 mg baby aspirin prior to arrival. Patient denies any nausea vomiting diarrhea. EKG was reviewed by Dr. Kelvin Crain and myself ER attending, right bundle branch block noted, old EKG available for review, please see official report. Cardiac workup ordered including serial troponins, PT PTT INR, chest x-ray, continuous cardiac monitoring. Initial troponin within normal limits, CBC does show elevated white blood cell count of 19.61, absolute neutrophils 16.08 sodium 135, creatinine 26 glucose 171, serial troponin pending at this time. Differential diagnosis includes viral illness, pneumonia, CAD,'s STEMI, NSTEMI, unstable angina, Please see chest x-ray result noted below, with a 19,000 white count I am considering possibly pneumonia. Pending repeat troponin. Patient does report some increased shortness of breath with exertion denies any bilateral lower extremity edema, he denies any productive cough. No further chest pain noted at this time. Patient has had no further chest pain during his stay, discussed findings with him we will give him azithromycin over milligrams p.o. for possible early pneumonia. Shortness of breath. Discussed strict follow-up instructions and strict return instructions they verbalized understanding. This text was generated using [email or web address] system, please disregard any oddities of phrase or misspellings. Medical Records Medical records reviewed: Yes I reviewed the patient's medical records. Medical records narrative: See cardiovascular note from Dr. Opal Neal from 2022: Chronic diarrhea (Acute) Venous stasis dermatitis of left lower extremity (Acute) Screening for colon cancer (Acute) Essential hypertension (Chronic) Atherosclerotic heart disease [place] coronary artery w/angina pectoris (Chronic) Diabetes mellitus type 2 in obese (Chronic) Long-term insulin use in type 2 diabetes (Chronic) Tubular adenoma of colon (Chronic 03/27/17) Coronary artery disease (Chronic) Non-sustained ventricular tachycardia (Acute) Medical History (Updated 08/20/22 @ 08:38 by Zeke Romero MD) Adenomatous colon polyp Depression Depression with anxiety Diarrhea DM (diabetes mellitus) Elevated LFTs Fatty liver disease, nonalcoholic HLD (hyperlipidemia) HTN (hypertension) Nonsustained paroxysmal ventricular tachycardia NSTEMI (non-ST elevated myocardial infarction) 02/2020Obesity DEEPALI (obstructive sleep apnea) RLS (restless legs syndrome) Unstable angina Vertigo Vitamin D deficiency Surgical History (Updated 08/20/22 @ 08:38 by Zeke Romero MD) Colonoscopy - MAC (03/27/17) Coronary Stent 9 stents. Last placement on 02/11/16Excision, Distal Clavicle (05/11/15) DR BROWN/LEFTHistory of total left hip replacement (04/22/22) History of umbilical hernia repair Rotator Cuff Repair (05/11/15) /P cholecystectomy Status post amputation of lesser toe of right foot Fifth toe was removedStatus post carpal tunnel release of both wrists Imaging Data Radiologic Study: Imaging: X-Ray My impression: Question right lower lobe right, middle lobe infiltrate Radiologist's impression: Exam: XR Chest Exam date and time: 01/02/2024 8:02 PM Age: 68 years old Clinical indication: Other: Unspecified; Patient HX: Chest pain TECHNIQUE: Imaging protocol: Radiologic exam of the chest. Views: 1 view. COMPARISON: CR XR CHEST 2V PA LATERAL 02/26/2023 2:14 PM FINDINGS: Lungs: No pulmonary consolidation is seen. Pleural spaces: No pleural effusion or pneumothorax is demonstrated. Heart/Mediastinum: The heart appears normal in size. Pulmonary arteries are enlarged suggesting probable pulmonary hypertension. Bones/joints: The visualized bony structures appear grossly intact. There is partial resorption of the distal clavicles bilaterally, stable compared with the prior exam from February 26, 2023. There are osteophytes along the thoracic spinal margin. IMPRESSION: No active disease is seen in the chest. Lab Data Lab results reviewed: Yes I reviewed the patient's lab results. Labs: Laboratory Tests Range/Units 01/02/24 01/02/24 01/02/24 19:05 21:30 22:06 WBC (4.4-10.8) 10^3/uL 19.61 H RBC (4.36-5.78) 10^6/uL 4.88 Hgb (13.5-17.5) g/dL 14.2 Hct (40.0-50.0) % 42.2 MCV (80-95) fL 87 MCH (27.0-33.0) pg 29.1 MCHC (32.0-36.0) % 33.6 RDW (11.8-14.1) % 13.2 Plt Count (130-400) 10^3/uL 208 MPV (8.0-11.0) fL 10.6 Immature Gran % % 0.5 Neutrophils % % 82.0 Lymphocytes % % 10.1 Monocytes % % 7.1 Eosinophils % % 0.1 Basophils % % 0.2 Nucleated RBC % (0.0-0.3) % 0.0 Absolute Neutrophils (1.2-6.7) 10^3/uL 16.08 H Absolute Lymphocytes (1.2-3.4) 10^3/uL 1.98 Absolute Monocytes (0.1-0.8) 10^3/uL 1.39 H Absolute Eosinophils (0.0-0.7) 10^3/uL 0.02 Absolute Basophils (0.0-0.2) 10^3/uL 0.04 PT (9.1-11.1) sec 11.0 INR (0.9-1.1) 1.1 APTT (23.6-32.8) sec 21.4 L Sodium (136-145) mmol/L 135 L Potassium (3.5-5.1) mmol/L 5.1 Chloride (98-107) mmol/L 100 Carbon Dioxide (21.0-32.0) mmol/L 24.9 Anion Gap (3-11) mmol/L 10.1 BUN (7-18) mg/dL 26 H Creatinine (0.70-1.30) mg/dL 1.0 Est GFR (CKD-EPI 2020) (mL/min/1.73m2) 81.47 Glucose (74-106) mg/dL 171 H Calcium (8.5-10.1) mg/dL 8.7 Magnesium (1.8-2.4) mg/dL 1.9 Total Bilirubin (0.2-1.0) mg/dL 0.6 AST (15-37) U/L 24 ALT (16-63) U/L 36 Alkaline Phosphatase (46-116) U/L 101 Troponin I (< or =60) ng/L < 50 < 50 NT-Pro-B Natriuret Pep (<300) pg/mL 181 Total Protein (6.4-8.2) g/dL 7.6 Albumin (3.4-5.0) g/dL 3.6 COVID-19 Source Nasopharynx SARS-CoV-2 (PCR) (Negative) Negative Influenza Type A (PCR) (Negative) Negative Influenza Type B (PCR) (Negative) Negative RSV (PCR) (Negative) Negative Quality:SDOH Health Related Social Needs: No Data to Display PFSH All Active Problems (Updated 01/02/24 @ 22:43 by Erin Bob NP) Pneumonia (Acute) Chest pain (Acute) SOB (shortness of breath) (Acute) Osteoarthritis of right hip (Acute) POCUS injection: 01/01/2024 Essential hypertension (Chronic) Atherosclerotic heart disease [place] coronary artery w/angina pectoris (Chronic) Diabetes mellitus type 2 in obese (Chronic) Long-term insulin use in type 2 diabetes (Chronic) Tubular adenoma of colon (Chronic 03/27/17) Coronary artery disease (Chronic) Non-sustained ventricular tachycardia (Acute) Screening for colon cancer (Acute) Venous stasis dermatitis of left lower extremity (Acute) Chronic diarrhea (Acute) Medical History Adenomatous colon polyp RLS (restless legs syndrome) Depression HLD (hyperlipidemia) NSTEMI (non-ST elevated myocardial infarction) 02/2020-pt. denies he had a NSTEMI, but states he had angina but no heart attack Nonsustained paroxysmal ventricular tachycardia Elevated LFTs Vertigo Fatty liver disease, nonalcoholic Obesity Vitamin D deficiency Depression with anxiety HTN (hypertension) Diarrhea DM (diabetes mellitus) DEEPALI (obstructive sleep apnea) Unstable angina Per pt. 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
[2024-01-02 19:15] LABS: Abs Immature Grans 0.09 10^3/uL (0.0-0.06); Absolute Basophil Count 0.04 10^3/uL (0.0-0.2); Absolute Eosinophil Count 0.02 10^3/uL (0.0-0.7); Absolute Lymphocyte Count 1.98 10^3/uL (1.2-3.4); Absolute Monocyte Count 1.39 10^3/uL (0.1-0.8); Absolute Neutrophil Count 16.08 10^3/uL (1.2-6.7); Basophils % 0.2 %; Eosinophils % 0.1 %; HCT 42.2 % (40.0-50.0); HGB 14.2 g/dL (13.5-17.5); Immature Grans % 0.5 %; Lymphocytes % 10.1 %; MCH 29.1 pg (27.0-33.0); MCHC 33.6 % (32.0-36.0); MCV 87 fL (80-95); MPV 10.6 fL (8.0-11.0); Monocytes % 7.1 %; Platelet Count 208 10^3/uL (130-400); RBC 4.88 10^6/uL (4.36-5.78); RDW 13.2 % (11.8-14.1); RDW-SD 41.3 fL; WBC 19.61 10^3/uL (4.4-10.8)
[2024-01-02] MEDS: Aspirin 81 MG CHEW 243 MG CH (19:20)
[2024-01-02 19:29] LABS: INR 1.1 (0.9-1.1); PTT Activated 21.4 sec (23.6-32.8)
--- NOTE | 2024-01-02 19:30 | RT.EKG_ITS ---
APPROVED REPORT Exam: Resting ECG Reason for Exam: repeat now please Patient Location: E HR:64 bpm ECG Measurements Heart Rate 64 AXIS ID 189 P 70 QRSd 150 QRS 76 QT 429 T 9 QTc 444 Conclusion Sinus rhythm...normal P axis, V-rate 60- 99 Right bundle branch block...QRSd>120, terminal axis(90,270) sinus rhtyhm, normal axis, RBBB, note st segment elevation single lead III unchanged from prior morph ology
[2024-01-02 19:34] LABS: ALT 36 U/L (16-63); AST 24 U/L (15-37); Albumin 3.6 g/dL (3.4-5.0); Alkaline Phosphatase 101 U/L (46-116); Anion Gap 10.1 mmol/L (3-11); BUN 26 mg/dL (7-18); Bilirubin, Total 0.6 mg/dL (0.2-1.0); CO2 24.9 mmol/L (21.0-32.0); Calcium 8.7 mg/dL (8.5-10.1); Chloride 100 mmol/L (98-107); Estimated GFR 81.47 (mL/min/1.73m2); Glucose 171 mg/dL (74-106); Magnesium 1.9 mg/dL (1.8-2.4); Potassium 5.1 mmol/L (3.5-5.1); Sodium 135 mmol/L (136-145); Total Protein 7.6 g/dL (6.4-8.2); Troponin I < 50 ng/L (< or =60)
--- NOTE | 2024-01-02 21:07 | DI.VRAD_ITS ---
PROCEDURE INFORMATION: Exam: XR Chest Exam date and time: 01/02/2024 8:02 PM Age: 68 years old Clinical indication: Other: Unspecified; Patient HX: Chest pain TECHNIQUE: Imaging protocol: Radiologic exam of the chest. Views: 1 view. COMPARISON: CR XR CHEST 2V PA LATERAL 02/26/2023 2:14 PM FINDINGS: Lungs: No pulmonary consolidation is seen. Pleural spaces: No pleural effusion or pneumothorax is demonstrated. Heart/Mediastinum: The heart appears normal in size. Pulmonary arteries are enlarged suggesting probable pulmonary hypertension. Bones/joints: The visualized bony structures appear grossly intact. There is partial resorption of the distal clavicles bilaterally, stable compared with the prior exam from February 26, 2023. There are osteophytes along the thoracic spinal margin. IMPRESSION: No active disease is seen in the chest. Dictated and Authenticated by: Jim Sanchez MD. Ordering:MARVIN Khan MD
[2024-01-02 21:59] LABS: NT-proBNP 181 pg/mL (<300)
[2024-01-02 22:20] LABS: COVID-19 PCR Negative (Negative); Influenza A PCR Negative (Negative); Influenza B PCR Negative (Negative); RSV PCR Negative (Negative)
[2024-01-02 22:22] LABS: Source Nasopharynx
[2024-01-02 22:32] LABS: Troponin I < 50 ng/L (< or =60)
[2024-01-02] MEDS: Azithromycin 250 MG TAB 500 MG PO (22:48)
== END 2024-01-02 22:56 | disposition home or self-care (01) ==
PROVIDERS: Emergency Provider Registered Nurse Emergency; PCP Nurse Practitioner Family
DX: J18.9 Pneumonia, unspecified organism (principal); R07.9 Chest pain, unspecified; R06.02 Shortness of breath; Z86.79 Personal history of other diseases of the circulatory system
CPT/HCPCS: 36415; 80053; 87637; 93005; 99283; 71045; 83735; 83880; 84484; 85025; 85610; 85730; 93010

== ENCOUNTER 2024-01-12 17:48 | Emergency (ER) | payer MEDICARE, BC, SELFPAY ==
[2024-01-12 17:52] VITALS: BP 173/62; PULSE 68; RESP 16; TEMP 36.8; O2SAT 98
--- NOTE | 2024-01-12 18:15 | DI.CT_ITS ---
Exam(s) CT ABDOMEN PELVIS W EXAM: CT ABDOMEN PELVIS W CLINICAL HISTORY: Left lower quadrant pain. TECHNIQUE: Imaging Protocol: Axial computed tomography images with coronal and sagittal reformatted images were created and reviewed CONTRAST MATERIAL: Intravenous: Omnipaque 350 Contrast volume:100 ml Oral: no COMPARISON: CT CT ABDOMEN PELVIS W from 12/09/2022 FINDINGS: ABDOMEN and PELVIS: Lung Bases: No acute findings. Liver: Normal density. No suspicious mass. Gallbladder and biliary tract: Status post cholecystectomy. No biliary dilation. Pancreas: Normal density. No abnormal calcifications or inflammatory process. No evidence of mass. Spleen: Normal. Kidneys: Normal size, contour and axis. No radiodense stones. No obstructive uropathy. No suspicious masses seen. Benign right renal cyst. Adrenal glands: No masses seen. Mildly prominent left adrenal gland, unchanged. Vasculature: Abdominal aorta non-dilated. Severe atherosclerotic changes. Soft tissues: Fat containing right inguinal hernia. Bladder: No gross wall thickening. No calculi.No focal mass. Bowel: No obstruction. Diverticulosis. Focal wall thickening and inflammation around diverticulum in the mid to distal sigmoid. Not no perforation or abscess. Appendix normal. Peritoneal cavity: No ascites. No focal collection. Stable small mesenteric lymph nodes. Bones: Left hip prosthesis. Reproductive organs: Unremarkable. Lymph nodes: No pathologically enlarged lymph nodes. IMPRESSION:: Uncomplicated sigmoid diverticulitis. RADIATION DOSE DELIVERED: 1,292.25mGy.cm Total DLP DATA REPOSITORY: All CT scans at this facility are submitted to the National Radiology Data Registry (NRDR) Dose Index Registry (DIR) with the [employer] (ACR). RADIATION OPTIMIZATION: All CT scans at this facility use at least one of these dose optimization te chniques: automated exposure control; mA and/or kV adjustment per patient size (includes targeted exa ms where dose is matched to clinical indication); or iterative reconstruction.
[2024-01-12 18:20] LABS: Abs Immature Grans 0.06 10^3/uL (0.0-0.06); Absolute Basophil Count 0.06 10^3/uL (0.0-0.2); Absolute Eosinophil Count 0.07 10^3/uL (0.0-0.7); Absolute Lymphocyte Count 3.31 10^3/uL (1.2-3.4); Absolute Monocyte Count 0.98 10^3/uL (0.1-0.8); Basophils % 0.5 %; Eosinophils % 0.6 %; Immature Grans % 0.5 %; Lymphocytes % 27.8 %; MCH 29.1 pg (27.0-33.0); MCHC 33.3 % (32.0-36.0); MCV 87 fL (80-95); MPV 10.2 fL (8.0-11.0); Monocytes % 8.2 %; Neutrophils % 62.4 %; Platelet Count 224 10^3/uL (130-400); RBC 5.15 10^6/uL (4.36-5.78); RDW 12.9 % (11.8-14.1); RDW-SD 41.5 fL
[2024-01-12 18:22] LABS: Absolute Neutrophil Count 7.43 10^3/uL (1.2-6.7)
[2024-01-12 18:37] LABS: ALT 44 U/L (16-63); AST 18 U/L (15-37); Albumin 3.7 g/dL (3.4-5.0); Alkaline Phosphatase 104 U/L (46-116); Anion Gap 8.3 mmol/L (3-11); BUN 14 mg/dL (7-18); Bilirubin, Total 0.49 mg/dL (0.2-1.0); CO2 29.7 mmol/L (21.0-32.0); CREATININE 0.9 mg/dL (0.70-1.30); Calcium 8.8 mg/dL (8.5-10.1); Chloride 102 mmol/L (98-107); Estimated GFR 92.45 (mL/min/1.73m2); Glucose 110 mg/dL (74-106); Potassium 3.8 mmol/L (3.5-5.1); Sodium 140 mmol/L (136-145); Total Protein 7.8 g/dL (6.4-8.2)
[2024-01-12 18:45] VITALS: BP 153/72; PULSE 64; RESP 18; O2SAT 95
[2024-01-12] MEDS: Omnipaque 350 MG/ML 100 ML BTL IJ (19:44)
[2024-01-12] MEDS: Normal Saline - Diluent 50 ML VIAL IJ (19:46)
[2024-01-12] MEDS: Normal Saline Flush 10 ML SYR IVP (19:47)
--- NOTE | 2024-01-12 20:48 | DI.VRAD_ITS ---
PROCEDURE INFORMATION: Exam: CT Abdomen And Pelvis With Contrast Exam date and time: 01/12/2024 7:50 PM Age: 68 years old Clinical indication: Other: Left lower quadrant pain; Prior surgery; Surgery date: 6+ months; Surgery type: Cholecystectomy TECHNIQUE: Imaging protocol: Computed tomography of the abdomen and pelvis with contrast. Contrast material: OMNIPAQUE; Contrast volume: 100 ml; Contrast route: INTRAVENOUS (IV); COMPARISON: CT ABDOMEN PELVIS W 12/09/2022 1:44 PM FINDINGS: Coronary arteries: Coronary artery calcifications/stents identified. Liver: Normal. No mass. Gallbladder and biliary ducts: Status post cholecystectomy. Pancreas: Normal. No ductal dilation. Spleen: Normal. No splenomegaly. Adrenal glands: Mild left adrenal hypertrophy, not significantly changed from previous study. Kidneys and ureters: Right renal cysts. Renal perfusion symmetric without hydronephrosis or hydroureter. Stomach and bowel: Diverticulosis. There is a posterior thick-walled distal sigmoid diverticulum with adjacent inflammatory change series 4, images 66-68. No extraluminal fluid or air appreciated. Appendix: No evidence of appendicitis. Intraperitoneal space: See Stomach and bowel finding. Vasculature: Severe atherosclerotic change present in the vasculature. Lymph nodes: Shotty mesenteric adenopathy, unchanged from prior study. Urinary bladder: Unremarkable as visualized. Reproductive: Unremarkable as visualized. Bones/joints: Left hip prosthesis. Mild lumbar spondylosis. Soft tissues: There is a small, fat containing right inguinal hernia. IMPRESSION: Early, acute diverticulitis, uncomplicated. Dictated and Authenticated by: Mary Jane Calderon MD. Ordering:VIKTORIA Marcelo MD
--- NOTE | 2024-01-12 21:02 | W.ED.GENAD ---
Discharge Plan Disposition Patient Disposition: Home Discharge Details Clinical Impression: Diverticulitis Primary Care Provider: Denise Hooker ED Provider: Davian Avila Home Meds and New Rx's Prescriptions: New amoxicillin-pot clavulanate 875-125 mg tablet 1 tab PO BID 10 Days Qty: 20 0RF Continued multivitamin Tablet 1 tab PO DAILY ranolazine 500 mg tablet extended release 12 hr 500 mg PO BID clotrimazole 1 % cream 1 applic topical BID Patient Comments: NO LONGER TAKING PER PT 02/26/23 cholecalciferol (vitamin D3) 25 mcg (1,000 unit) capsule 25 mcg PO DAILY insulin lispro protamin-lispro [Humalog Mix 75-25 KwikPen] 100 unit/mL (75-25) insulin pen 30 unit subcut TID sertraline 50 mg tablet 50 mg PO DAILY insulin glargine U-300 conc [Toujeo Max U-300 SoloStar] 300 unit/mL (3 mL) insulin pen 50 unit subcut DAILY nitroglycerin 0.4 MG tablet, sublingual 0.4 mg Sublingual PRN PRN metoprolol succinate [Toprol XL] 100 MG tablet extended release 24 hr 150 mg PO QAM Patient Comments: NO LONGER TAKING PER PT 02/26/23 lisinopril 5 MG tablet 5 mg PO QAM amlodipine 10 MG tablet 10 mg PO QAM rosuvastatin [Crestor] 40 MG tablet 40 mg PO DAILY dapagliflozin propanediol [Farxiga] 5 mg tablet 10 mg PO DAILY Patient Comments: TAKE ONE TABLET BY MOUTH EVERY DAY aspirin 81 mg Tablet,Chewable 81 mg PO DAILY trazodone 50 mg Tablet 50 mg PO QHS acetaminophen 500 mg tablet 1,000 mg PO TID Qty: 90 3RF Discharge Instructions Instructions: Diverticulitis Additional Instructions: You are seen in the emergency department for your abdominal pain. Your CAT scan shows that you have diverticulitis. There is no sign of any perforations. Please follow-up with general surgery. Please take these antibiotics as directed. As discussed, please return to the emergency department if you develop fevers worsening pain nausea or vomiting. Referrals: [facility] [Provider Group] HPI General Date/Time Provider Initiated Documentation: 01/12/24 18:02. HPI Narrative: [facility] This is a quite well-appearing normothermic and not tachycardic 68-year-old male with prior diverticulitis and suprapubic tenderness concerning for the possibility of recurrent diverticulitis for which patient will undergo CT scan. No pain out of proportion to suggest necrotizing soft tissue infection. No right lower quadrant tenderness no fevers so my suspicion is low for appendicitis. No history of ureterolithiasis making my suspicion low for ureterolithiasis. No dysuria no frequency so doubt UTI. Remote cholecystectomy so doubt acute cholecystitis. No epigastric tenderness to suggest pancreatitis. No chest pain to suggest ACS. No cough to suggest pneumonia and no fevers. No shortness of breath so doubt pulmonary embolism. Will reassess following scans. Patient declines analgesia at this point in time. No vomiting so my suspicion is low for small bowel obstruction. 9 PM CBC shows leukocytosis. No anemia. No thrombocytopenia. Comprehensive metabolic panel showing mild hyperglycemia but no EMI. No acute electrolyte abnormalities. Normal bicarbonate no hyperglycemia??not consistent with DKA. CT scan showed diverticulitis but no perforation nor abscess. I spoke with Dr. Brown from general surgery. She agreed with plan for outpatient management given no microperforation nor abscess nor fevers. Patient has had a colonoscopy approximately 13 months ago. Patient I discussed return indications including any worsening pain nausea vomiting or any fevers. He understood his return indications and he was discharged with empiric trial of expectant outpatient management. I treated with outpatient amoxicillin clavulanic acid. HPI This is a 68-year-old male with history of diabetes and diverticulitis returns emergency department via private vehicle in the setting of lower abdominal pain for the past 3 to 4 weeks that is worsened over the past 2 days. He reports that he has had increased gas. He last had a bowel movement 2 days ago so he took MiraLAX and had some diarrhea today. He endorses abdominal pain is bilateral lower quadrant. He endorses mild nausea but no vomiting. Pain is not postprandial. Patient remotely had a cholecystectomy. He denies fevers chest pain shortness of breath. Exam General: Well-appearing in no acute distress speaking in complete sentences. Head: Normocephalic, atraumatic. Eye: Extraocular eye movements intact. No conjunctival injection. No scleral icterus. Ear, nose, mouth, throat: Grossly normal inspection. Normal voice, handling secretions normally. Neck: Trachea midline. Cardiovascular: Well-perfused distal extremities. Regular rate and rhythm Respiratory: Nonlabored respiration. Clear lungs bilaterally Gastrointestinal: Nondistended abdomen. Soft. Minimal suprapubic and periumbilical tenderness. No rebound. No guarding. No right lower quadrant tenderness. Musculoskeletal: No edema. Moving all 4 extremities spontaneously. Skin: Normal for age and race, grossly normal temperature and turgor. No acute rash. Neurologic: Alert and appropriate, no apparent acute deficits. Psychiatric: Mood and manner are appropriate. Grooming and personal hygiene are appropriate. Related Data Home Medications Medication Instructions Recorded Confirmed amlodipine 10 mg tablet 10 mg PO QAM 07/23/14 01/12/24 lisinopril 5 mg tablet 5 mg PO QAM 07/23/14 01/12/24 metoprolol succinate 100 mg 150 mg PO QAM 07/23/14 01/12/24 tablet,extended release 24 hr (Toprol XL) nitroglycerin 0.4 mg sublingual 0.4 mg sublingual PRN PRN 07/23/14 01/12/24 tablet rosuvastatin 40 mg tablet (Crestor) 40 mg PO DAILY 07/23/14 01/12/24 trazodone 50 mg tablet 50 mg PO QHS 12/01/18 01/12/24 ranolazine 500 mg tablet,extended 500 mg PO BID 02/04/22 01/12/24 release,12 hr multivitamin 1 tab PO DAILY 04/17/22 01/12/24 acetaminophen 500 mg tablet 1,000 mg (2 x 500 mg) PO TID #90 04/22/22 01/12/24 tabs cholecalciferol (vitamin D3) 25 25 mcg PO DAILY 05/22/22 01/12/24 mcg (1,000 unit) capsule clotrimazole 1 % topical cream 1 applic topical BID 05/22/22 01/12/24 aspirin 81 mg chewable tablet 81 mg PO DAILY 02/26/23 01/12/24 dapagliflozin propanediol 5 mg 10 mg PO DAILY 04/23/23 01/12/24 tablet (Farxiga) insulin glargine U-300 conc 300 50 unit subcut DAILY 11/24/23 01/12/24 unit/mL (3 mL) subcutaneous pen (Toujeo Max U-300 SoloStar) insulin lispro protamine-lispro 30 unit subcut TID 11/24/23 01/12/24 100 unit/mL (75-25) subcutaneous pen (Humalog Mix 75-25 KwikPen) sertraline 50 mg tablet 50 mg PO DAILY 11/24/23 01/12/24 amoxicillin 875 mg-potassium 1 tab PO BID 10 days #20 tabs 01/12/24 clavulanate 125 mg tablet Previous Rx's Medication Instructions Recorded acetaminophen 500 mg tablet 1,000 mg (2 x 500 mg) PO TID #90 04/22/22 tabs amoxicillin 875 mg-potassium 1 tab PO BID 10 days #20 tabs 01/12/24 clavulanate 125 mg tablet Allergies Allergy/AdvReac Type Severity Reaction Status Date / Time isosorbide AdvReac Other (See Verified 01/02/24 19:07 Comment) General Stated Complaint: Abd Prob ANDREA: 3 Course Vital Signs Vital signs: Vital Signs Temperature 36.8 C 01/12/24 17:52 Pulse 68 01/12/24 17:52 Respiratory Rate 16 01/12/24 17:52 Blood Pressure 173/62 H 01/12/24 17:52 Pulse Oximetry 98 01/12/24 17:52 Temperature 36.8 C 01/12/24 17:52 Pulse 64 01/12/24 18:45 Respiratory Rate 18 01/12/24 18:45 Respiratory Effort Normal 01/12/24 18:46 Blood Pressure 153/72 H 01/12/24 18:45 Blood Pressure Position Supine 01/12/24 17:52 Pulse Oximetry 95 01/12/24 18:45 Oxygen Delivery Method Room Air 01/12/24 18:45 Pain Level 4 01/12/24 18:46 Lab/Test Results Lab/Test Results: Laboratory Tests Range/Units 01/12/24 18:00 WBC (4.4-10.8) 10^3/uL 11.90 H RBC (4.36-5.78) 10^6/uL 5.15 Hgb (13.5-17.5) g/dL 15.0 Hct (40.0-50.0) % 45.0 MCV (80-95) fL 87 MCH (27.0-33.0) pg 29.1 MCHC (32.0-36.0) % 33.3 RDW (11.8-14.1) % 12.9 Plt Count (130-400) 10^3/uL 224 MPV (8.0-11.0) fL 10.2 Immature Gran % % 0.5 Neutrophils % % 62.4 Lymphocytes % % 27.8 Monocytes % % 8.2 Eosinophils % % 0.6 Basophils % % 0.5 Nucleated RBC % (0.0-0.3) % 0.0 Absolute Neutrophils (1.2-6.7) 10^3/uL 7.43 H Absolute Lymphocytes (1.2-3.4) 10^3/uL 3.31 Absolute Monocytes (0.1-0.8) 10^3/uL 0.98 H Absolute Eosinophils (0.0-0.7) 10^3/uL 0.07 Absolute Basophils (0.0-0.2) 10^3/uL 0.06 Sodium (136-145) mmol/L 140 Potassium (3.5-5.1) mmol/L 3.8 Chloride (98-107) mmol/L 102 Carbon Dioxide (21.0-32.0) mmol/L 29.7 Anion Gap (3-11) mmol/L 8.3 BUN (7-18) mg/dL 14 Creatinine (0.70-1.30) mg/dL 0.9 Est GFR (CKD-EPI 2020) (mL/min/1.73m2) 92.45 Glucose (74-106) mg/dL 110 H Calcium (8.5-10.1) mg/dL 8.8 Total Bilirubin (0.2-1.0) mg/dL 0.49 AST (15-37) U/L 18 ALT (16-63) U/L 44 Alkaline Phosphatase (46-116) U/L 104 Total Protein (6.4-8.2) g/dL 7.8 Albumin (3.4-5.0) g/dL 3.7 Medical Decision Making Quality:SDOH Health Related Social Needs: No Data to Display PFSH All Active Problems (Updated 01/12/24 @ 21:08 by Davian Avila MD) Diverticulitis (Chronic) Pneumonia (Acute) Chest pain (Acute) SOB (shortness of breath) (Acute) Osteoarthritis of right hip (Acute) POCUS injection: 01/01/2024 Essential hypertension (Chronic) Atherosclerotic heart disease [place] coronary artery w/angina pectoris (Chronic) Diabetes mellitus type 2 in obese (Chronic) Long-term insulin use in type 2 diabetes (Chronic) Tubular adenoma of colon (Chronic 03/27/17) Coronary artery disease (Chronic) Non-sustained ventricular tachycardia (Acute) Screening for colon cancer (Acute) Venous stasis dermatitis of left lower extremity (Acute) Chronic diarrhea (Acute) Medical History Adenomatous colon polyp RLS (restless legs syndrome) Depression HLD (hyperlipidemia) NSTEMI (non-ST elevated myocardial infarction) 02/2020-pt. denies he had a NSTEMI, but states he had angina but no heart attack Nonsustained paroxysmal ventricular tachycardia Elevated LFTs Vertigo Fatty liver disease, nonalcoholic Obesity Vitamin D deficiency Depression with anxiety HTN (hypertension) Diarrhea DM (diabetes mellitus) DEEPALI (obstructive sleep apnea) Unstable angina Per pt. states this is not current, occured over 1/5 years ago, follows up with customer engagement manager last seen 11/25/22 Surgical History S/P cholecystectomy History of total left hip replacement (04/22/22) Status post carpal tunnel release of both wrists History of umbilical hernia repair Status post amputation of lesser toe of right foot Fifth toe was removed Rotator Cuff Repair (05/11/15) Excision, Distal Clavicle (05/11/15) DR BROWN/LEFT Coronary Stent 9 stents. 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
[2024-01-12] MEDS: Amoxicillin 875/Clav. 125 TAB PO (21:22)
== END 2024-01-12 21:22 | disposition home or self-care (01) ==
PROVIDERS: Emergency Provider Emergency Medicine; PCP Nurse Practitioner Family
DX: K57.32 Diverticulitis of large intestine without perforation or abscess without bleeding (principal); Z87.19 Personal history of other diseases of the digestive system; E11.65 Type 2 diabetes mellitus with hyperglycemia; I10 Essential (primary) hypertension; I25.10 Atherosclerotic heart disease of native coronary artery without angina pectoris; Z90.49 Acquired absence of other specified parts of digestive tract; Z79.4 Long term (current) use of insulin; Z79.899 Other long term (current) drug therapy
CPT/HCPCS: 36415; 80053; 99285; 74177; 85025; J3490

== ENCOUNTER 2024-03-04 00:22 | Outpatient (CLI) | payer MEDICARE, BC, SELFPAY ==
--- NOTE | 2024-03-04 | DI.US_ITS ---
Exam(s) US ABDOMEN LIMITED EXAM: US ABDOMEN LIMITED CLINICAL HISTORY: Cirrhosis of liver, K74.69 TECHNIQUE: Ultrasound abdomen performed using standard protocol. COMPARISON: US US ABDOMEN LIMITED from 09/14/[address] ABDOMEN PELVIS W from 01/12/2024 FINDINGS: PANCREAS: Normal where visualized. LIVER: There is increased echogenicity of the liver consistent with fatty infiltration. Hepatopetal flow in the Portal Vein. The liver measures in 20 0.0 cm length. No evidence of a hepatic mass. GALLBLADDER:Status post cholecystectomy. BILIARY SYSTEM: Common bile duct measures < 7 mm. No intrahepatic biliary ductal dilation. RIGHT KIDNEY: Kidney is normal in size. No evidence of renal calculi. No evidence of hydronephrosis. There is a 3.2 x 3.0 x 3.0 cm simple right renal cyst. No follow-up is recommended. This is stable . ASCITES: None seen. IMPRESSION: 1. Hepatic steatosis and hepatomegaly. No evidence of a hepatic mass. 2. Status post cholecystectomy. No biliary ductal dilatation. DATA REPOSITORY:
--- OUTSIDE RECORDS SUMMARY | 2024-03-04 00:23 | XMS_ITS | Encounter Summary ---
Author Name [facility] [place] [facility] [place] Address [address] [place] [address] Care Team Providers Care Cake Stripper Name Role Phone WARNER ORTIZ Primary Care Provider SWATI Powell Primary Care Provider Unavailabl e Insurance Providers: All historical and current Section Date Range: From patient's date of to the date document was created. This section includes the names of all active insurance providers for the patient. Insurance Provider Type of Coverage Plan Name Start of Policy Coverage End of Policy Coverage Group Number Member ID Insurance Provider's Telephone Number Policy Vu's Name Patient's Relationship to Policy Vu [employer]BA [employer] WE[employer]M SADIE HP Jul 20, 2009 [id number] LESTERSRINIVAS MARIAPema PATIENT [employer] ([id number]) PRESCRIPT ION Jul 20, 2017 RXBWEID [id number] LESTERSRINIVAS HOLLEY PATIENT MEDICARE (WNR) MEDICARE (M) PART B Apr 19, 2020 PART B [id number] [phone] SRINIVAS BATISTA PATIENT MEDICARE (WNR) MEDICARE (M) PART A Oct 19, 2019 PART A [id number] LESTERSRINIVAS KISHAN PATIENT RESTAT PRESCRIPT ZULMA PHILLIPS November 17, 2009 [id number] SRINIVAS [place]ISTA PATIENT Selected Encounter This section includes the information on [place] at [place] for the Encounter. Date/Time Encounter Type Encounter Description Reason Pro vider Source Mar 12, 2023 03:23 PM Outpatient Encounter PRIMARY CARE/MEDICINE IHE Encounter Template Text not used by [place] Social History: Smoking Status (Most current) and Tobacco Use (All prior to encounter date) This section includes the most current, and the historical, smoking and tobacco- related health factors from the [place] facility where the Encounter took place. Current Smoking Status This section includes the most current smoking, or tobacco-related health factor, from the [place] facility where the Encounter took place. Date/Time Current Smoking Status Comment Facil ity Jan 26, 2003 10:05 AM QUIT TOBACCO USE > 7 YEARS AGO [facility] Tobacco Use History This section includes a history of the smoking, or tobacco-related health factors, that were collected on or before the date of the Encounter. The data comes from the [place] facility where the Encounter took place. Date/Time Smoking Status/Tobacco Use Comment F acility November 29, 2002 01:00 PM HISTORY OF SMOKING [facility] Advance Directives: All historical and current Section Date Range: From patient's date of to the date document was created. This section includes ALL of a patient's completed or amended [place] Advance and Rescinded Directives. The entries below indicate that a directive exists for the patient, but an actual copy is not included with this document. The data comes from all [place] facilities. Date Advance Directives Provider Source November 23, 2017 ADVANCE DIRECTIVE JOI DEVRIES [facility] Encounter Notes: All associated encounter notes This section contains the clinical notes associated to the Encounter. Date/Time Encounter Note(s) Provider Source Mar 12, 2023 03:24 PM [facility] NOTE: LOCAL TITLE[facility] STANDARD TITLE: [facility] NOTE DATE OF NOTE: MAR 12, 2023@15:24 ENTRY DATE: MAR 12, 2023@15:24:09 AUTHOR: ELVIS ARIZMENDI EXP COSIGNER: URGENCY: STATUS: COMPLETED Event/Procedure:Diabetic examination, adult eye health and vision examination note from [facility] in [place], [place]. Date of Service:02/25/2023 Treating Provider:Dr.Kathryn Hooker Documents sent to [facility] to be scanned. To view this document, open the cprs tools menu and then open the image display viewer. /jayce/ ELVIS ARIZMENDI Health Senior [employer] Consultant Signed: 03/12/2023 15:25 [facility]
--- OUTSIDE RECORDS SUMMARY | 2024-03-04 00:23 | XMS_ITS | Continuity of Care Document ---
Author Name [facility] Organization [facility] Care Team Providers Care Shear Helper Name Role Phone [facility] Unavailable Unavailable Problems Combined list of problems from Department of Defense and Veterans Affairs facilities. It does not include entries that were removed or entered in error. Problem Status Onset Date Problem Type Date of Resolution Comments Source Old Myocardial Infarction Active 06/19/19 93 Condition November 29, 2002 Entered By: CYRIL CHOI RET Comment: [facility] Bilateral hearing loss Active Condition Oct 22, 2023 Entered By: SWATI PEREZ Comment: loud noise exposure [place] [facility] Cad [facility] Carpal Tunnel Syndrome * (ICD-9-CM 354.0) Active Condition [facility] Cervical radiculopathy Active Condition Oct 22, 2023 Entered By: SWATI PEREZ Comment: [facility] Chronic diarrhea [facility] Coronary atherosclerosis Active Condition Oct 15, 2021 Entered By: MANJINDER ORTIZ Comment: 9 stents [facility] Diabetes mellitus Active Condition [facility] Diabetes mellitus type 2 without retinopathy (SNOMED CT 4772179770477) Active Condition [place] [facility] Diverticular disease of colon Active Condition [facility] Health Maintenance Active Condition S ep 2009 Entered By: BREN GRAYSON Comment: 2007 colonoscopy, outside hosp, neg, next one in 10 yrAug 2015 Entered By: SEN OCONNELL Comment: nonST elev [place] january 2106 [facility]; [facility] re3 stented occlusion [address] [facility] Heart murmur Active Condition Oct 22, 2023 Entered By: SWATI PEREZ Comment: aortic sclerosis per pt report [facility] High Cholesterol [facility] History of amputation of lesser toe Active Condition Oct 15, 2021 Entered By: MANJINDER ORTIZ Comment: right 5th toe [facility] History of arthroscopic procedure on shoulder Active Condition Oct 15, 2021 Entered By: MANJINDER ORTIZ Comment: bilateral shoulders [facility] History of repair of umbilical hernia Active Condition [facility] Hyperlipidemia Active Condition [facility] Hypertension Active Condition [facility] Hypertension (SNOMED CT 67495933) Active Condition [facility] Ingrowing toenail Active Condition Ap r 2023 Entered By: SWATI PEREZ Comment: multiple. related condition [facility] Insomnia Active Condition [facility] Irritable bowel syndrome with diarrhea Active Condition [facility] NAFL - non-alcoholic fatty liver Active Condition [facility] Non[facility]alcoholic fatty liver Active Condition [facility] Obesity Active Condition [facility] Osteoarthritis of hip Active Condition [facility] Depression * (ICD-9-CM 311./300.4) Inactive Condition 10/09/[address] 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 Diagnosis [facility] Diagnosis: ICD-10-CM E11.9 Type 2 diabetes mellitus without complications Active Diagnosis [facility] Diagnosis: ICD-10-CM Z23 Encounter for immunization Active Diagnosis [facility] Diagnosis: ICD-10-CM K76.0 Fatty (change of) liver, not elsewhere classified Active Diagnosis [facility] Diagnosis: ICD-10-CM Z71.89 Other specified counseling Active Diagnosis [facility] Medications Combined list of outpatient medications from Department of Defense and [facility] Affairs facilities.Medications provided include 1) outpatient medications from the last 15 months, and 2) patient-reported medications. Medication Details Route Status Patient Instructions Prescription Expires Prescription Number Last Dispense Date Ordering Provider Order Date Order Qty Source AMLODIPINE BESYLATE 10MG TAB AMLODIPI NE BESYLATE 10MG TAB Non-VA TAKE ONE TABLET BY MOUTH EVERY DAY Oct 15, 2021 Non-VA Document ed by: WARNER NO Document ed at: [facility] ORAL ACTIVE WARNER ORTIZ 2021 [facility] AMLODIPINE BESYLATE 10MG TAB AMLODIPI NE BESYLATE 10MG TAB Non-VA TAKE ONE TABLET BY MOUTH EVERY DAY Feb 01, 2013 Non-VA Document ed by: JANI RACHEL Document ed at: [facility] ORAL ACTIVE JIN RACHEL 2012 [facility] ASPIRIN 81MG TAB,EC ASPIRIN 81MG TAB,EC Non-VA TAKE ONE TABLET BY MOUTH ONCE DAILY Oct 20, 2022 Non-VA Document ed by: WALDEMAR PEREZ Document ed at: [facility] ORAL ACTIVE ZAHRA PEREZ 2022 [facility] ASPIRIN 81MG TAB,EC ASPIRIN 81MG TAB,EC Non-VA TAKE ONE TABLET BY MOUTH EVERY DAY Oct 15, 2021 Non-VA Document ed by: WARNER NO Document ed at: [facility]an [facility] ORAL ACTIVE CALENDWARNER LEON 2021 [facility] DAPAGLIFLOZ IN 10MG TAB DAPAGLIF LOZIN 10MG TAB Non-VA TAKE ONE TABLET BY MOUTH ONCE DAILY Oct 22, 2023 Non-VA Document ed by: WALDEMAR PEREZ Document ed at: [facility] ORAL ACTIVE ZAHRA PEREZ 2023 [facility] DAPAGLIFLOZ IN 5MG TAB DAPAGLIF LOZIN 5MG TAB Non-VA TAKE ONE TABLET BY MOUTH EVERY DAY Oct 15, 2021 Non-VA Document ed by: WARNER NO Document ed at: [facility] ORAL ACTIVE CALENDWARNER LEON 2021 [facility] EXENATIDE INJ,SOLN EXENATID E INJ,SOLN Non-VA INJECT SUBCUTAN EOUSLY TWICE DAILY (BEFORE BREAKFAS T AND SUPPER) Oct 15, 2021 Non-VA Document ed by: WARNER NO Document ed at: [facility] SUBCUT ANEOUS ACTIVE WARNER ORTIZ 2021 [facility] INSULIN GLARGINE-YF GN 100UNIT/ML 3ML PEN INJ INSULIN GLARGINE -YFGN 100UNIT/ ML 3ML PEN INJ Non-VA INJECT 42 UNITS SUBCUTAN EOUSLY ONCE DAILY Oct 22, 2023 Non-VA Document ed by: WALDEMAR PEREZ EN Document ed at: [facility] SUBCUT ANEOUS ACTIVE ZAHRA PEREZ 2023 [facility] INSULIN LISPRO HUMALOG 100UNT/ML KWIKPEN INJ INSULIN LISPRO HUMALOG 100UNT/M L KWIKPEN INJ Non-VA INJECT 30 UNITS SUBCUTAN EOUSLY DIRECTED Oct 22, 2023 Non-VA Document ed by: WALDEMAR PEREZ EN Document ed at: [facility] SUBCUT ANEOUS ACTIVE ZAHRA PEREZ 2023 [facility] LISINOPRIL 5MG TAB LISINOPR IL 5MG TAB Non-VA TAKE ONE TABLET BY MOUTH EVERY DAY Oct 16, 2015 Non-VA Document ed by: PATRICK OCONNELL Document ed at: [facility] ORAL ACTIVE PATRICK OCONNELL 2010 [facility] LISINOPRIL 5MG TAB LISINOPR IL 5MG TAB Non-VA TAKE ONE TABLET BY MOUTH DAILY AT BEDTIME Oct 15, 2021 Non-VA Document ed by: WARNER NO Document ed at: [facility] ORAL ACTIVE WARNER ORTIZ 2021 [facility] LISPRO 75/25 INSULIN *KWIKPEN* INJ LISPRO 75/25 INSULIN *KWIKPEN * INJ Non-VA INJECT 40 UNITS SUBCUTAN EOUSLY TWICE A DAY Oct 15, 2021 Non-VA Document ed by: WARNER NO Document ed at: [facility] SUBCUT ANEOUS ACTIVE WARNER ORTIZ 2021 [facility] MAGNESIUM OXIDE 400MG TAB MAGNESIU M OXIDE 400MG TAB Non-VA TAKE ONE TABLET BY MOUTH AT BEDTIME Oct 22, 2023 Non-VA Document ed by: WALDEMAR PEREZ EN Document ed at: [facility] ORAL ACTIVE ZAHRA PEREZ 2023 [facility] METFORMIN HCL 1000MG TAB METFORMI N HCL 1000MG TAB Non-VA TAKE ONE TABLET BY MOUTH TWICE A DAY Oct 15, 2021 Non-VA Document ed by: WARNER NO Document ed at: [facility] ORAL ACTIVE CALENDINE WARNER 2021 [facility] METOPROLOL (TOPROL-XL EQV) TAB,SA METOPROL OL (TOPROL- XL EQV) TAB,SA Non-VA TAKE 150 BY MOUTH EVERY DAY Oct 15, 2021 Non-VA Document ed by: WARNER NO Document ed at: [facility] ORAL ACTIVE CALENDWARNER LEON 2021 [facility] METOPROLOL SUCCINATE 50MG TAB,SA METOPROL OL SUCCINAT E 50MG TAB,SA Non-VA TAKE THREE TABLETS BY MOUTH EVERY DAY Feb 01, 2013 Non-VA Document ed by: JANI RACHEL Document ed at: [facility] ORAL ACTIVE JIN RACHEL 2012 [facility] MULTIVITAMI NS CAP/TAB MULTIVIT AMINS CAP/TAB Non-VA TAKE ONE CAP/TAB BY MOUTH ONCE DAILY Oct 22, 2023 Non-VA Document ed by: WALDEMAR PEREZ Document ed at: [facility] ORAL ACTIVE ZAHRA PEREZ 2023 [facility] MULTIVITAMI NS W/MINERALS TAB MULTIVIT AMINS W/MINERA LS TAB Non-VA TAKE ONE TABLET BY MOUTH EVERY DAY Oct 15, 2021 Non-VA Document ed by: WARNER NO Document ed at: [facility] ORAL ACTIVE CALENDINE WARNER 2021 [facility] RANOLAZINE 500MG TAB,SA RANOLAZI NE 500MG TAB,SA Non-VA TAKE ONE TABLET BY MOUTH TWICE A DAY Oct 15, 2021 Non-VA Document ed by: WARNER NO Document ed at: Johan [facility] ORAL ACTIVE WARNER ORTIZ 2021 [facility] RANOLAZINE 500MG TAB,SA RANOLAZI NE 500MG TAB,SA Non-VA TAKE ONE TABLET BY MOUTH TWICE A DAY Oct 20, 2022 Non-VA Document ed by: WALDEMAR PEREZ Document ed at: [facility] ORAL [facility]IVE ZAHRA PEREZ 2022 [facility] ROSUVASTATI N CA 40MG TAB ROSUVAST ATIN CA 40MG TAB Non-VA TAKE ONE TABLET BY MOUTH EVERY DAY Oct 09, 2014 Non-VA Document ed by: Jaime BRANDON Document ed at: [facility] ORAL ACTIVE PARESH BRANDON 2014 [facility] TRAZODONE HCL 50MG TAB TRAZODON E HCL 50MG TAB Non-VA TAKE ONE TABLET BY MOUTH AT BEDTIME Nov 16, 2018 Non-VA Document ed by: PATRICK OCONNELL Document ed at: [facility] ORAL ACTIVE PATRICK OCONNELL 2018 [facility] TRAZODONE HCL 50MG TAB TRAZODON E HCL 50MG TAB Non-VA TAKE ONE TABLET BY MOUTH DAILY AT BEDTIME Oct 15, 2021 Non-VA Document ed by: WARNER NO Document ed at: [facility] ORAL ACTIVE WARNER ORTIZ 2021 [facility] Allergies, Adverse Reactions, Alerts Combined list of allergies from Department of Defense and Veterans Affairs facilities. It does not include entries that were removed or entered in error. Substance Category Reaction Severity Reaction type Status Date Reported Comments Source ISOSORBIDE Propensity to adverse reactions to drug (finding) Headache active 12/30/2023 [facility] Immunizations Combined list of available immunizations from the Department of Defense and Veterans Affairs facilities. Immunization Series Date Given Administered By Site Reaction Lot Number CVX Code Drug Line Manager Status Comments Source COVID-19 (PFIZER), MRNA, LNP-S, BIVALENT BOOSTER, PF, 30 MCG/0.3 ML DOSE 1 2021 300 complet ed [place] [facility] INFLUENZA, UNSPECIFIED FORMULATION 2021 88 complet ed [facility] COVID-19 (PFIZER), MRNA, LNP-S, PF, 30 MCG/0.3 ML DOSE [address] [facility] INFLUENZA, UNSPECIFIED FORMULATION 2020 88 complet ed [facility] COVID-19 (PFIZER), MRNA, LNP-S, PF, 30 MCG/0.3 ML DOSE 3 2020 208 complet ed [facility] COVID-19 (PFIZER), MRNA, LNP-S, PF, 30 MCG/0.3 ML DOSE 2 2020 208 complet ed [facility] COVID-19 (PFIZER), MRNA, LNP-S, PF, 30 MCG/0.3 ML DOSE 1 2020 208 complet ed [facility] INFLUENZA, SEASONAL, INJECTABLE 2017 [facility], SEASON[facility], INJECTABLE 2016 141 complet ed At work [facility] INFLUENZA, UNSPECIFIED FORMULATION 2015 88 complet ed lmd [facility] ZOSTER LIVE 2015 121 complet ed Proximal Left Arm [facility] INFLUENZA, UNSPECIFIED FORMULATION 2014 88 complet ed [facility] Jakub s [facility] INFLUENZA, UNSPECIFIED FORMULATION [address] [facility] INFLUENZA, UNSPECIFIED FORMULATION [address] [facility] INFLUENZA, UNSPECIFIED FORMULATION 2009 88 complet ed [facility] Electrica l [facility] NOVEL INFLUENZA-H1N 1-09, ALL FORMULATIONS [address] [facility] INFLUENZA, UNSPECIFIED FORMULATION [address] [facility] TDAP [address] [facility] PNEUMOCOCCAL, UNSPECIFIED FORMULATION [address] [facility] INFLUENZA, UNSPECIFIED FORMULATION [address] [facility] PNEUMOCOCCAL, UNSPECIFIED FORMULATION 2002 109 complet ed Site:Left Deltoid [facility] TD(ADULT) UNSPECIFIED FORMULATION 1998 139 complet ed [place] [facility] TD(ADULT) UNSPECIFIED FORMULATION 1998 139 complet ed [facility] [facility] [facility] Results Combined list of recent chemistry, hematology and other laboratory results from Department of Defense and Veterans Affairs, ranging from 15 months to all on record, depending upon the facility. Order Name Results Value Reference Range Date Interpretation Specimen Comments Source LIPOPROTEI N CHOLESTERO L FRACT. PANEL CHOLESTEROL [MASS/VOLUM E] IN SERUM OR PLASMA 154 mg/dL 0 - 200 10/21 Specimen Type: PLASMA Comment: , Tests performed on [employer] SN:[id number] (405). Ordering Provider: SWATI PEREZ Report Released Date/Time: Oct 15, 2023 04:17 PM Reporting Lab[facility] [address] [facility] [address] Performing Lab: [facility] [address] [facility] [address] [facility] LIPOPROTEI N CHOLESTERO L FRACT. PANEL TRIGLYCERID E [MASS/VOLUM E] IN SERUM OR PLASMA 227 mg/dL 0 - 150 10/21 H Specimen Type: PLASMA Comment: , Tests performed on [employer] SN:[id number] (405). Ordering Provider: SWATI PEREZ Report Released Date/Time: Oct 15, 2023 04:17 PM Reporting Lab[facility] [address] [facility] [address] Performing [facility] [address] [facility] [address] [facility] LIPOPROTEI N CHOLESTERO L FRACT. PANEL CHOLESTEROL IN HDL [MASS/VOLUM E] IN SERUM OR PLASMA 42 mg/dL 40 10/21 Specimen Type: PLASMA Comment: , Tests performed on [employer] SN:[id number] (405). Ordering Provider: SWATI PEREZ Report Released Date/Time: Oct 15, 2023 04:17 PM Reporting [facility] [address] [facility] [address] Performing [facility]: [facility] [address] [facility] [address] [facility] LIPOPROTEI N CHOLESTERO L FRACT. PANEL CHOLESTEROL IN LDL [MASS/VOLUM E] IN SERUM OR PLASMA BY CALCULATION 67 mg/dL 0 - 129 10/21 Specimen Type: PLASMA Comment: , Tests performed on [employer] SN:[id number] (405). Ordering Provider: SWATI PEREZ Report Released Date/Time: Oct 15, 2023 04:17 PM Reporting Lab: [facility] [address] [facility] [address] Performing Lab: [facility] [address] [facility] [address] [facility] P4 GLU,BUN,CR EAT,LYTES, CA UREA NITROGEN [MASS/VOLUM E] IN SERUM OR PLASMA 19 mg/dL 7 - 25 10/21 Specimen Type: PLASMA Comment: , Tests performed on [employer] SN:[id number] (405). Ordering Provider: SWATI PEREZ Report Released Date/Time: Oct 15, 2023 04:17 PM Reporting Lab: [facility] [address] [facility] [address] Performing Lab: [facility] [address] [facility] [address] [facility] P4 GLU,BUN,CR EAT,LYTES, CA SODIUM [MOLES/VOLU ME] IN SERUM OR PLASMA 137 mmol/L 135 - 145 10/21 Specimen Type: PLASMA Comment: , Tests performed on [employer] SN:[id number] (405). Ordering Provider: SWATI PEREZ Report Released Date/Time: Oct 15, 2023 04:17 PM Reporting Lab: [facility] [address] [facility] [address] Performing [facility]: [facility] [address] [facility] [address] [facility] P4 GLU,BUN,CR EAT,LYTES, CA POTASSIUM [MOLES/VOLU ME] IN SERUM OR PLASMA 4.5 mmol/L 3.5 - 5.0 10/21 Specimen Type: PLASMA Comment: , Tests performed on [employer] SN:[id number] (405). Ordering Provider: SWATI PEREZ Report Released Date/Time: Oct 15, 2023 04:17 PM Reporting Lab: [facility] [address] [facility] [address] Performing [facility]: [facility] [address] [facility] [address] [facility] P4 GLU,BUN,CR EAT,LYTES, CA CHLORIDE [MOLES/VOLU ME] IN SERUM OR PLASMA 103 mmol/L 100 - 110 10/21 Specimen Type: PLASMA Comment: , Tests performed on [employer] SN:[id number] (405). Ordering Provider: SWATI PEREZ Report Released Date/Time: Oct 15, 2023 04:17 PM Reporting Lab: [facility] [address] [facility] [address] [facility]forming Lab[facility] [address] [facility] [address] [facility] P4 GLU,BUN,CR EAT,LYTES, CA CARBON DIOXIDE, TOTAL [MOLES/VOLU ME] IN SERUM OR PLASMA 26 mmol/L 20 - 30 10/21 Specimen Type: PLASMA Comment: , Tests performed on [employer] SN:[id number] (405). Ordering Provider: SWATI PEREZ Report Released Date/Time: Oct 15, 2023 04:17 PM Reporting Lab: [facility] [address] [facility] [address] Performing Lab: [facility] [address] [facility] [address] [facility] P4 GLU,BUN,CR EAT,LYTES, CA ANION GAP IN SERUM OR PLASMA 8 4 - 16 10/21 Specimen Type: PLASMA Comment: , Tests performed on [employer] SN:[id number] (405). Ordering Provider: SWATI PEREZ Report Released Date/Time: Oct 15, 2023 04:17 PM Reporting [facility] [address] [facility] [address] [facility]forming Lab: [facility] [address] [facility] [address] P4 GLU,BUN,CR EAT,LYTES, CA GLUCOSE [MASS/VOLUM E] IN SERUM OR PLASMA 143 mg/dL 65 - 100 10/21 H Specimen Type: PLASMA Comment: , Tests performed on [employer] SN:[id number] (405). Ordering Provider: SWATI PEREZ Report Released Date/Time: Oct 15, 2023 04:17 PM Reporting Lab: [facility] [address] [facility] [address] Performing Lab: [facility] [address] [facility] [address] [facility] P4 GLU,BUN,CR EAT,LYTES, CA CREATININE [MASS/VOLUM E] IN SERUM OR PLASMA 0.96 mg/dL 0.50 - 1.50 10/21 Specimen Type: PLASMA Comment: , Tests performed on [employer]ee SN:[id number] (405). Ordering Provider: SWATI PEREZ Report Released Date/Time: Oct 15, 2023 04:17 PM Reporting Lab: [facility] [address] [facility] [address] Per[facility]: [facility] [address] [facility] [address] [facility] P4 GLU,BUN,CR EAT,LYTES, CA CALCIUM [MASS/VOLUM E] IN SERUM OR PLASMA 9.4 mg/dL 8.5 - 10.5 10/21 Specimen Type: PLASMA Comment: , Tests performed on [employer] Tee SN:[id number] (405). Ordering Provider: SWATI PEREZ Report Released Date/Time: Oct 15, 2023 04:17 PM Reporting Lab: [facility] [address] [facility] [address] Performing Lab: [facility] [address] [facility] [address] [facility] P4 GLU,BUN,CR EAT,LYTES, CA GLOMERULAR FILTRATION RATE/1.73 SQ M.PREDICTED [VOLUME RATE/AREA] IN SERUM, PLASMA OR BLOOD BY CREATININE- BASED FORMULA (CKD-EPI 2020) 86 mL/min 10/21 Specimen Type: PLASMA Comment: , Tests performed on [employer] Tee SN:[id number] (405). Ordering Provider: SWATI PEREZ Report Released Date/Time: Oct 15, 2023 04:17 PM Reporting Lab: [facility] [address] [facility] [address] Performing Lab: [facility] [place] [address] [place] [facility] [place] [address] [facility] LIVER PROFILE PROTEIN [MASS/VOLUM E] IN SERUM OR PLASMA 7.2 g/dL 6.0 - 8.5 10/21 Specimen Type: PLASMA Comment: , Tests performed on [employer]ee SN:[id number] (405). Ordering Provider: SWATI PEREZ Report Released Date/Time: Oct 15, 2023 04:17 PM Reporting Lab: [facility] [address] [facility] [address] Performing Lab: [facility] [address] [facility] [address] [facility] LIVER PROFILE ALBUMIN [MASS/VOLUM E] IN SERUM OR PLASMA 3.9 g/dL 3.2 - 5.0 10/21 Specimen Type: PLASMA Comment: , Tests performed on [employer] Tee SN:[id number] (405). Ordering Provider: SWATI PEREZ Report Released Date/Time: Oct 15, 2023 04:17 PM Reporting Lab: [facility] [address] [facility] [address] Performing Lab: [facility] [place] [address] [facility] [address] [facility] LIVER PROFILE BILIRUBIN.T OTAL [MASS/VOLUM E] IN SERUM OR PLASMA 0.6 mg/dL 0.2 - 1.2 10/21 Specimen Type: PLASMA Comment: , Tests performed on [employer]ee SN:[id number] (405). Ordering Provider: SWATI PEREZ Report Released Date/Time: Oct 15, 2023 04:17 PM Reporting Lab: [facility] [address] [facility] [address] Performing Lab: [place] [address] [facility] [address] [facility] LIVER PROFILE ALKALINE PHOSPHATASE [ENZYMATIC ACTIVITY/VO LUME] IN SERUM OR PLASMA 100 U/L 40 - 150 10/21 Specimen Type: PLASMA Comment: , Tests performed on [employer] Tee SN:[id number] (405). Ordering Provider: SWATI PEREZ Report Released Date/Time: Oct 15, 2023 04:17 PM Reporting Lab: [facility] [address] [facility] [address] Performing Lab: [facility] [address] [place] [facility] [place] [address] [facility] L[facility] PROFILE ALANINE AMINOTRANSF ERASE [ENZYMATIC ACTIVITY/VO LUME] IN SERUM OR PLASMA 50 U/L 7 - 52 10/21 Specimen Type: PLASMA Comment: , Tests performed on [employer] SN:[id number] (405). Ordering Provider: SWATI PEREZ Report Released Date/Time: Oct 15, 2023 04:17 PM Reporting Lab: [facility] [address] [facility] [address] Performing Lab: [facility] [address] [facility] [address] [facility] PROFILE ASPARTATE AMINOTRANSF ERASE [ENZYMATIC ACTIVITY/VO LUME] IN SERUM OR PLASMA 32 U/L 5 - 34 10/21 Specimen Type: PLASMA Comment: , Tests performed on [employer] SN:[id number] (405). Ordering Provider: SWATI PEREZ Report Released Date/Time: Oct 15, 2023 04:17 PM Reporting Lab: [facility] [address] [facility] [address] Performing Lab: [facility] [address] [facility] [address] [facility] LIVER PROFILE FIB-4 SCORE 1.19 <2.67 - 2.67 10/21 Specimen Type: PLASMA Comment: , Tests performed on [employer] SN:[id number] (405). Ordering Provider: SWATI PEREZ Report Released Date/Time: Oct 15, 2023 04:17 PM Reporting Lab: [facility] [address] [facility] [address] Performing Lab: [facility] [address] [facility] [address] [facility] GLYCOHEMOG LOBIN (A1C ONLY) HEMOGLOBIN A1C/HEMOGLO BIN.TOTAL IN BLOOD BY HPLC 6.0 4.0 - 5.6 10/21 H Specimen Type: BLOOD Comment: , Tests performed on [employer] SN:[id number] (405) Values obtained from A1C measurements can vary. For typical A1C assays, a reported value of 7.0 could actually be between 6.72 and 7.28 if measured by a reference method. A reported value of 9.0 could actually be between 8.73 and 9.27. Ref: http://www.n gsp.org/CAPd aura.asp Ordering Provider: SWATI PEREZ Report Released Date/Time: Oct 15, 2023 04:17 PM Reporting Lab: [facility] [address] [facility] [address] Performing Lab: [facility] [address] [facility] [address] [facility] PROFILE LEUKOCYTES [#/VOLUME] IN BLOOD BY AUTOMATED COUNT 8.2 10*3/u L 4.5 - 11.0 10/21 Specimen Type: BLOOD No comment entered. Ordering Provider: SWATI PEREZ Report Released Date/Time: Oct 15, 2023 04:17 PM Reporting [facility] [address] [facility] [address] Performing [facility] [address] [facility] [address] [facility] CBC PROFILE ERYTHROCYTE S [#/VOLUME] IN BLOOD BY AUTOMATED COUNT 5.10 10*6/u L 4.23 - 5.66 10/21 Specimen Type: BLOOD No comment entered. Ordering Provider: SWATI PEREZ Report Released Date/Time: Oct 15, 2023 04:17 PM Reporting [facility] [address] [facility] [address] Performing [facility]: [facility] [address] [facility] [address] [facility] HEMOGLOBIN [MASS/VOLUM E] IN BLOOD 14.9 g/dL 12.8 - 17 10/21 Specimen Type: BLOOD No comment entered. Ordering Provider: SWATI PEREZ Report Released Date/Time: Oct 15, 2023 04:17 PM Reporting [facility] [address] [facility] [address] Performing [facility]: [facility] [address] [facility] [address] [facility]FILE HEMATOCRIT [VOLUME FRACTION] OF BLOOD BY AUTOMATED COUNT 43.6 39.2 - 50.4 10/21 Specimen Type: BLOOD No comment entered. Ordering Provider: SWATI PEREZ Report Released Date/Time: Oct 15, 2023 04:17 PM Reporting Lab: [facility] [address] [facility] [address] Performing Lab: [facility] [address] [facility] [address] [facility] CBC PROFILE MCV [ENTITIC VOLUME] BY AUTOMATED COUNT 85.5 fL 82 - 99 10/21 Specimen Type: BLOOD No comment entered. Ordering Provider: SWATI PEREZ Report Released Date/Time: Oct 15, 2023 04:17 PM Reporting Lab: [facility] [address] [facility] [address] Performing Lab: [facility] [address] [facility] [address] [facility] CBC PROFILE MCH [ENTITIC MASS] BY AUTOMATED COUNT 29.2 pg 26.2 - 32.6 10/21 Specimen Type: BLOOD No comment entered. Ordering Provider: SWATI PEREZ Report Released Date/Time: Oct 15, 2023 04:17 PM Reporting Lab: [facility] [address] [facility] [address] Performing Lab: [facility] [address] [facility] [address] [facility] CBC PROFILE MCHC [MASS/VOLUM E] BY AUTOMATED COUNT 34.2 g/dL 30.8 - 35.1 10/21 Specimen Type: BLOOD No comment entered. Ordering Provider: SWATI PEREZ Report Released Date/Time: Oct 15, 2023 04:17 PM Reporting Lab: [facility] [address] [facility] [address] Performing Lab: [facility] [address] [facility] [address] [facility] CBC PROFILE PLATELETS [#/VOLUME] IN BLOOD BY AUTOMATED COUNT 258 10*3/u L 140 - 360 10/21 Specimen Type: BLOOD No comment entered. Ordering Provider: SWATI PEREZ Report Released Date/Time: Oct 15, 2023 04:17 PM Reporting Lab: [facility] [address] [facility] [address] Performing Lab: [facility] [address] [facility] [address] [facility] CBC PROFILE PLATELET MEAN VOLUME [ENTITIC VOLUME] IN BLOOD BY AUTOMATED COUNT 10.6 fL 9.2 - 12.4 10/21 Specimen Type: BLOOD No comment entered. Ordering Provider: SWATI PEREZ Report Released Date/Time: Oct 15, 2023 04:17 PM Reporting Lab: [facility] [address] [facility] [address] Performing Lab: [facility] [address] [facility] [address] [facility] CBC PROFILE ERYTHROCYTE DISTRIBUTIO N WIDTH [RATIO] BY AUTOMATED COUNT 13.2 12.0 - 16.0 10/21 Specimen Type: BLOOD No comment entered. Ordering Provider: SWATI PEREZ Report Released Date/Time: Oct 15, 2023 04:17 PM Reporting Lab: [facility] [address] [facility] [address] Performing Lab: [facility] [address] [facility] [address] [facility] CBC PROFILE LYMPHOCYTES /100 LEUKOCYTES IN BLOOD BY AUTOMATED COUNT 31.3 14.0 - 42.3 10/21 Specimen Type: BLOOD No comment entered. Ordering Provider: SWATI PEREZ Report Released Date/Time: Oct 15, 2023 04:17 PM Reporting Lab: [facility] [address] [facility] [address] Performing Lab: [facility] [address] [facility] [address] [facility] CBC PROFILE MONOCYTES/1 00 LEUKOCYTES IN BLOOD BY AUTOMATED COUNT 7.4 5.1 - 13.7 10/21 Specimen Type: BLOOD No comment entered. Ordering Provider: SWATI PEREZ Report Released Date/Time: Oct 15, 2023 04:17 PM Reporting Lab: [facility] [address] [facility] [address] Performing Lab: [facility] [address] [facility] [address] [facility] CBC PROFILE GRANULOCYTE S/100 LEUKOCYTES IN BLOOD BY AUTOMATED COUNT 59.4 43.7 - 75.8 10/21 Specimen Type: BLOOD No comment entered. Ordering Provider: SWATI PEREZ Report Released Date/Time: Oct 15, 2023 04:17 PM Reporting Lab: [facility] [address] [facility] [address] Performing Lab: [facility] [address] [facility] [address] [facility] CBC PROFILE EOSINOPHILS /100 LEUKOCYTES IN BLOOD BY AUTOMATED COUNT 1.1 0.4 - 6.8 10/21 Specimen Type: BLOOD No comment entered. Ordering Provider: SWATI PEREZ Report Released Date/Time: Oct 15, 2023 04:17 PM Reporting Lab: [facility] [address] [facility] [address] Performing Lab: [facility] [address] [facility] [address] [facility] CBC PROFILE BASOPHILS/1 00 LEUKOCYTES IN BLOOD BY AUTOMATED COUNT 0.6 0.1 - 2.0 10/21 Specimen Type: BLOOD No comment entered. Ordering Provider: SWATI PEREZ Report Released Date/Time: Oct 15, 2023 04:17 PM Reporting Lab: [facility] [address] [facility] [address] Performing Lab: [facility] [address] [facility] [address] [facility] CBC PROFILE IMMATURE GRANULOCYTE S/100 LEUKOCYTES IN BLOOD BY AUTOMATED COUNT 0.2 0.0 - 0.7 10/21 Specimen Type: BLOOD No comment entered. Ordering Provider: SWATI PEREZ Report Released Date/Time: Oct 15, 2023 04:17 PM Reporting Lab: [facility] [address] [facility] [address] Performing Lab: [facility] [address] [facility] [address] [facility] CBC PROFILE NUCLEATED ERYTHROCYTE S/100 LEUKOCYTES [RATIO] IN BLOOD BY AUTOMATED COUNT 0.0 /100{W BCs} 0.0 - 0.0 10/21 Specimen Type: BLOOD No comment entered. Ordering Provider: SWATI PEREZ Report Released Date/Time: Oct 15, 2023 04:17 PM Reporting Lab: [facility] [address] [facility] [address] Performing Lab: [facility] [address] [facility] [address] [facility] CBC PROFILE IMMATURE GRANULOCYTE S [#/VOLUME] IN BLOOD 0.0 10*3/u L 0 - 0.06 10/21 Specimen Type: BLOOD No comment entered. Ordering Provider: SWATI PEREZ Report Released Date/Time: Oct 15, 2023 04:17 PM Reporting Lab: [facility] [address] [facility] [address] Performing Lab: [facility] [address] [facility] [address] [facility] CBC PROFILE BASOPHILS [#/VOLUME] IN BLOOD BY AUTOMATED COUNT 0.1 10*3/u L 0.01 - 0.13 10/21 Specimen Type: BLOOD No comment entered. Ordering Provider: SWATI PEREZ Report Released Date/Time: Oct 15, 2023 04:17 PM Reporting Lab: [facility] [address] [facility] [address] Performing Lab: [facility] [address] [facility] [address] [facility] CBC PROFILE EOSINOPHILS [#/VOLUME] IN BLOOD BY AUTOMATED COUNT 0.1 10*3/u L 0.03 - 0.44 10/21 Specimen Type: BLOOD No comment entered. Ordering Provider: SWATI PEREZ Report Released Date/Time: Oct 15, 2023 04:17 PM Reporting Lab: [facility] [address] [facility] [address] Performing Lab: [facility] [address] [facility] [address] [facility] CBC PROFILE LYMPHOCYTES [#/VOLUME] IN BLOOD BY AUTOMATED COUNT 2.6 10*3/u L 1.0 - 3.2 10/21 Specimen Type: BLOOD No comment entered. Ordering Provider: SWATI PEREZ Report Released Date/Time: Oct 15, 2023 04:17 PM Reporting Lab: [facility] [address] [facility] [address] Performing Lab: [facility] [address] [facility] [address] [facility] CBC PROFILE MONOCYTES [#/VOLUME] IN BLOOD BY AUTOMATED COUNT 0.6 10*3/u L 0.3 - 1.1 10/21 Specimen Type: BLOOD No comment entered. Ordering Provider: SWATI PEREZ Report Released Date/Time: Oct 15, 2023 04:17 PM Reporting Lab: [facility] [address] [facility] [address] Performing Lab: [facility] [address] [facility] [address] [facility] CBC PROFILE NEUTROPHILS [#/VOLUME] IN BLOOD BY AUTOMATED COUNT 4.9 10*3/u L 2.2 - 7.6 10/21 Specimen Type: BLOOD No comment entered. Ordering Provider: SWATI PEREZ Report Released Date/Time: Oct 15, 2023 04:17 PM Reporting Lab: [facility] [address] [facility] [address] Performing Lab: [facility] [address] [facility] [address] [facility] CBC PROFILE NUCLEATED ERYTHROCYTE S [#/VOLUME] IN BLOOD BY AUTOMATED COUNT 0.00 10*3/u L 0 - 0 10/21 Specimen Type: BLOOD No comment entered. Ordering Provider: SWATI PEREZ Report Released Date/Time: Oct 15, 2023 04:17 PM Reporting Lab: [facility] [address] [facility] [address] Performing Lab: [facility] [address] [facility] [address] [facility] MICROALBUM IN/CREATIN INE RATIO PANEL CREATININE [MASS/VOLUM E] IN URINE 47.00 mg/dL 10/21 Specimen Type: URINE Comment: , Tests performed on [employer] SN:[id number] (405) Ordering Provider: SWATI PEREZ Report Released Date/Time: Oct 15, 2023 04:17 PM Reporting Lab: [facility] [address] [facility] [address] Performing Lab: [facility] [address] [facility] [address] [facility] MICROALBUM IN/CREATIN INE RATIO PANEL MICROALBUMI N [MASS/VOLUM E] IN URINE 0.1 mg/dL 0.0 - 29.9 10/21 Specimen Type: URINE Comment: , Tests performed on [employer] SN:[id number] (405) Ordering Provider: SWATI PEREZ Report Released Date/Time: Oct 15, 2023 04:17 PM Reporting Lab: [facility] [address] [facility] [address] Performing Lab: [facility] [address] [facility] [address] [facility] MICROALBUM IN/CREATIN INE RATIO PANEL MICROALBUMI N/CREATININ E [MASS RATIO] IN URINE 2.1 mg/g 0.0 - 29.9 10/21 Specimen Type: URINE Comment: , Tests performed on [employer] SN:[id number] (405) Ordering Provider: SWATI PEREZ Report Released Date/Time: Oct 15, 2023 04:17 PM Reporting Lab: [facility] [address] [facility] [address] Performing Lab: [facility] [address] [facility] [address] [facility] URINALYSIS W/REFLEX TO CULTURE COLOR OF URINE Light- Yellow 10/21 Specimen Type: URINE No comment entered. Ordering Provider: SWATI PEREZ Report Released Date/Time: Oct 15, 2023 04:17 PM Reporting Lab: [facility] [address] [facility] [address] Performing Lab: [facility] [address] [facility] [address] [facility] URINALYSIS W/REFLEX TO CULTURE SPECIFIC GRAVITY OF URINE BY REFRACTOMET RY 1.027 1.003 - 1.030 10/21 Specimen Type: URINE No comment entered. Ordering Provider: SWATI PEREZ Report Released Date/Time: Oct 15, 2023 04:17 PM Reporting Lab: [facility] [address] [facility] [address] Performing Lab: [facility] [address] [facility] [address] [facility] URINALYSIS W/REFLEX TO CULTURE UROBILINOGE N [MASS/VOLUM E] IN URINE <2.0mg /dL <2.0 - 2.0 10/21 Specimen Type: URINE No comment entered. Ordering Provider: SWATI PEREZ Report Released Date/Time: Oct 15, 2023 04:17 PM Reporting [facility] [address] [facility] [address] Performing [facility]: [facility] [address] [facility] [address] [facility] URINALYSIS W/REFLEX TO CULTURE BILIRUBIN.T OTAL [PRESENCE] IN URINE BY TEST STRIP NEG 10/21 Specimen Type: URINE No comment entered. Ordering Provider: SWATI PEREZ Report Released Date/Time: Oct 15, 2023 04:17 PM Reporting Lab[facility] [address] [facility] [address] Performing Lab: [facility] [address] [facility] [address] [facility] URINALYSIS W/REFLEX TO CULTURE KETONES [PRESENCE] IN URINE NEGmg/ dL 10/21 Specimen Type: URINE No comment entered. Ordering Provider: SWATI PEREZ Report Released Date/Time: Oct 15, 2023 04:17 PM Reporting Lab[facility] [address] [facility] [address] Performing Lab: [facility] [address] [facility] [address] [facility] URINALYSIS W/REFLEX TO CULTURE GLUCOSE [MASS/VOLUM E] IN URINE BY TEST STRIP >1000m g/dL 10/21 Specimen Type: URINE No comment entered. Ordering Provider: SWATI PEREZ Report Released Date/Time: Oct 15, 2023 04:17 PM Reporting Lab[facility] [address] [facility] [address] Per[facility]: [facility] [address] [facility] [address] [facility] URINALYSIS W/REFLEX TO CULTURE PROTEIN [MASS/VOLUM E] IN URINE BY TEST STRIP NEGmg/ dL 10/21 Specimen Type: URINE No comment entered. Ordering Provider: SWATI PEREZ Report Released Date/Time: Oct 15, 2023 04:17 PM Reporting Lab: [facility] [address] [facility] [address] Performing Lab: [facility] [address] [facility] [address] [facility] URINALYSIS W/REFLEX TO CULTURE PH OF URINE BY TEST STRIP 6.5 5 - 8 10/21 Specimen Type: URINE No comment entered. Ordering Provider: SWATI PEREZ Report Released Date/Time: Oct 15, 2023 04:17 PM Reporting Lab: [facility] [address] [place] [facility] [place] [address] Performing Lab: [facility] [address] [facility] [address] [facility] URINALYSIS W/REFLEX TO CULTURE APPEARANCE OF URINE CLEAR 10/21 Specimen Type: URINE No comment entered. Ordering Provider: SWATI PEREZ Report Released Date/Time: Oct 15, 2023 04:17 PM Reporting Lab: [facility] [address] [place] [facility] [facility] [place] [address] Performing Lab: [facility] [address] [facility] [address] [facility] URINALYSIS W/REFLEX TO CULTURE HEMOGLOBIN [PRESENCE] IN URINE NEG 10/21 Specimen Type: URINE No comment entered. Ordering Provider: SWATI PEREZ Report Released Date/Time: Oct 15, 2023 04:17 PM Reporting Lab: [facility] [address] [place] [facility] [place] [address] Performing Lab: [facility] [address] [place] [facility] [place] [address] [facility] URINALYSIS W/REFLEX TO CULTURE NITRITE [PRESENCE] IN URINE BY TEST STRIP NEG 10/21 Specimen Type: URINE No comment entered. Ordering Provider: SWATI PEREZ Report Released Date/Time: Oct 15, 2023 04:17 PM Reporting Lab: [facility] [address] [place] [facility] [place] [address] Performing Lab: [facility] [address] [facility] [address] [facility] URINALYSIS W/REFLEX TO CULTURE LEUKOCYTES [PRESENCE] IN URINE NEG 10/21 Specimen Type: URINE No comment entered. Ordering Provider: SWATI PEREZ Report Released Date/Time: Oct 15, 2023 04:17 PM Reporting Lab: [facility] [address] [facility] [address] Performing Lab: [facility] [address] [facility] [address] [facility] TSH THYROTROPIN [UNITS/VOLU ME] IN SERUM OR PLASMA 1.13 u[IU]/ mL 0.35 - 5.00 10/21 Specimen Type: SERUM Comment: , Tests performed on [employer] SN:[id number] (405) TSH within normal limits. Reflex testing not required. Ordering Provider: SWATI PEREZ Report Released Date/Time: Oct 15, 2023 04:17 PM Reporting Lab: [facility] [address] [facility] [address] Performing Lab: [facility] [address] [facility] [address] [facility] VITAMIN B-12 COBALAMIN (VITAMIN B12) [MASS/VOLUM E] IN SERUM OR PLASMA 548 pg/mL 200 - 900 10/21 Specimen Type: SERUM Comment: , Tests performed on [employer] SN:[id number] (405) TSH within normal limits. Reflex testing not required. Ordering Provider: SWATI PEREZ Report Released Date/Time: Oct 15, 2023 04:17 PM Reporting Lab: [facility] [address] [facility] [address] Performing Lab: [facility] [address] [facility] [address] [facility] PSA (SANDFILL OPERATOR ) PROSTATE SPECIFIC AG [MASS/VOLUM E] IN SERUM OR PLASMA 0.41 ng/mL 10/21 Specimen Type: SERUM Comment: , Tests performed on [employer] SN:[id number] (405) TSH within normal limits. Reflex testing not required. Ordering Provider: SWATI PEREZ Report Released Date/Time: Oct 15, 2023 04:17 PM Reporting Lab: [facility] [address] [facility] [address] Performing Lab: [facility] [address] [place] [facility] [place] [address] [facility] Vital Signs Combined list of inpatient and outpatient Vital Signs from Department of Defense and Veterans Affairs, ranging from 12 months to all on record, depending upon the facility. Vital Sign Value Date Comments Source Encounters Combined list of: 1) Encounters from Department of Veterans Affairs facilities going back up to thelast 18 months. 2) Encounters from the Department of Defense facilities going back up to 280 months. Location Location Details Encounter Type Encounter Number Reason For Visit Attending Provider ADM Date DC Date Status Disposition Source [facility] Outpatient Encounter [id number] 09/05 [facility] Outpatient Encounter [id number] 5.09/17 [facility] Outpatient Encounter [id number] 5.09/17 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 Diagnos is: ICD-10- CM Z23 Encount er for immuniz ation<b r/> HIEN HARRISON A 10/20 [facility] Outpatient Encounter [id number] 10/24 [place] [facility] [place] [facility] Outpatient Encounter [id number] 10/26 [place] [facility] [place] [facility] [facility] En[facility] [id number] 11/14 [place] [facility] TARGETED CASE MANAGEMENT [id number] FRANCINE SUMMERS 11/19 [facility] [place] [facility] Outpatient Encounter [id number] 12/09 [place] [facility] [place] [facility] Outpatient Encounter [id number] 02/01 [place] [facility] [place] [facility] Outpatient Encounter [id number] 02/25 [place] [facility] [place] [facility] Outpatient Encounter [id number] 03/11 [place] [facility] [place] [facility] Outpatient Encounter [id number] 03/12 [place] [facility] [place] [facility] Outpatient Encounter [id number] 03/19 [place] [facility] [place] [facility] Outpatient Encounter [id number] 07/[address] [place] [facility] OFFICE O/P EST HI 40 MIN [id number] Diagnos is: ICD-10- CM E11.9 Type 2 diabete s mellitu s without complic ations< br/> SWATI PEREZ 10/21 [facility] [place] [facility] Outpatient Encounter [id number] 10/26 [place] [facility] [place] [facility] Outpatient Encounter [id number] 12/20 [facility] Outpatient Encounter [id number] 12/20 [facility] OFFICE O/P EST LOW 20 MIN [id number] Diagnos is: ICD-10- CM D48.5 [place] m of uncerta in behavio r of skin
SWATI PEREZ 12/29 [facility] Social History Combined list of available smoking, tobacco, and other social history from [facility] of Defense and [facility] facilities. Social History Type Response Date Comment Source Tobacco smoking status [facility] VA-TOBACCO FORMER USER 10/22/2023 [facility] History of tobacco use ID-TOBACCO QUIT 15 YRS OR MORE 10/22/2023 [facility] History of tobacco use VA-TOBACCO FORMER USER 09/17/2022 [facility] History of tobacco use VA-TOBACCO FORMER USER 10/15/2021 [facility] History of tobacco use VA-TOBACCO FORMER USER 03/14/2020 [facility] History of tobacco use ID-TOBACCO QUIT 15 YRS OR MORE 11/10/2017 [facility] History of tobacco use QUIT TOBACCO USE > 7 YEARS AGO 10/27/2017 [facility] History of tobacco use QUIT TOBACCO USE > 7 YEARS AGO 10/14/2016 quit about 24 years ago [facility] History of tobacco use QUIT TOBACCO USE > 7 YEARS AGO 10/16/2015 quit approximately 23 years ago [facility] History of tobacco use HISTORY OF SMOKING 10/14/2004 12 yrs ago [facility] History of tobacco use QUIT TOBACCO USE > 7 YEARS AGO 01/26/2003 [facility] History of tobacco use HISTORY OF SMOKING 11/29/2002 [facility] Plan of Care List of future care activities from [facility] facilities. Additional future care activities may be listed in the Assessment and Plan section. Date/Time Care Activity Care Activity Detail Facili ty 03/15/2024 AMBULATORY - REHAB MEDICINE AMBULATORY - REHAB MEDICINE [facility] 03/23/2024 AMBULATORY - SURGERY AMBULATORY - SURGERY [facility] Advance Directives List of completed, amended, or rescinded Advance Directives on record at Department of [facility] facilities. An actual copy of the Directive is not included. Date Advance Directive Provider Source 11/23/2017 ADVANCE DIRECTIVE JOI DEVRIES [facility]
--- OUTSIDE RECORDS SUMMARY | 2024-03-04 00:23 | XMS_ITS | Encounter Summary ---
Author Name [facility] [place] Organization [facility] [place] Address [address] [place] [address] Care Team Providers Care Data Analyst Report Writer Name Role Phone WARNER ORTIZ Primary Care [...] PLAN WEIDM SADIE HP Jul 20, 2009 [id number] LESTERSRINIVAS MARIAPema PATIENT EXPRESS SCRIPTS ([id number]) PRESCRIPT ION Jul 20, 2017 RXBWEID [id number] LESTERSRINIVAS HOLLEY PATIENT MEDICARE (WNR) MEDICARE (M) PART B Apr 19, 2020 PART B [id number] SRINIVAS BATISTA PATIENT MEDICARE (WNR) MEDICARE (M) PART A Oct 19, 2019 PART A [id number] SRINIVAS BATISTA PATIENT RESTAT PRESCRIPT ZULMA PHILLIPS November 17, 2009 2821 [id number] SRINIVAS BATISTA PATIENT Selected Encounter This section includes the information on record at ID for the Encounter. Date/Time Encounter Type Encounter Description Reason Pro vider Source Mar 11, 2023 01:39 PM Outpatient Encounter PRIMARY CARE/MEDICINE IHE Encounter Template Text not used by ID Social History: Smoking Status (Most current) and Tobacco Use (All prior to encounter date) This section includes the most current, and the historical, smoking and tobacco- related health factors from the ID facility where the Encounter took place. Current Smoking Status This section includes the most current smoking, or tobacco-related health factor, from the ID facility where the Encounter took place. Date/Time Current Smoking Status Comment Facil ity Jan 26, 2003 10:05 AM QUIT TOBACCO USE > 7 YEARS AGO [facility] Tobacco Use History This section includes a history of the smoking, or tobacco-related health factors, that were collected on or before the date of the Encounter. The data comes from the ID facility where the Encounter took place. Date/Time Smoking Status/Tobacco Use Comment F acility November 29, 2002 01:00 PM HISTORY OF SMOKING [facility] Advance Directives: All historical and current Section Date Range: From patient's date of to the date document was created. This section includes ALL of a patient's completed or amended ID Advance and Rescinded Directives. The entries below indicate that a directive exists for the patient, but an actual copy is not included with this document. The data comes from all ID facilities. Date Advance Directives Provider Source November 23, 2017 ADVANCE DIRECTIVE JOI DEVRIES [facility] Encounter Notes: All associated encounter notes This section contains the clinical notes associated to the Encounter. Date/Time Encounter Note(s) Provider Source Mar 11, 2023 01:39 PM PRIMARY CARE ANNUA L EVALUATION NOTE: LOCAL TITLE: Preventive Health Annual Review STANDARD TITLE: PRIMARY CARE ANNUAL EVALUATION NOTE DATE OF NOTE: MAR 11, 2023@13:39 ENTRY DATE: MAR 11, 2023@13:40:12 AUTHOR: ELVIS ARIZMENDI EXP COSIGNER: URGENCY: STATUS: COMPLETED Eye Care At-Risk Screen : Patient identified to be at risk for the following eye condition(s): DIABETIC RETINOPATHY: Diabetes Diagnosis Information: Problem Diagnosis: 10/26/2022 [id number] (SNOMED CT) Diabetes mellitus type 2 without retinopathy Date Entered: 02/28/2010; Date Last Modified: 10/26/2022 Status: ACTIVE; Priority: UNDEFINED Prov. Narr. - Diabetes mellitus type 2 without retinopathy (SNOMED CT [id number]) MACULAR DEGENERATION: Macular Degeneration Risk Factors Information: Reminder Term: VA-AMD RISK FACTORS Encounter Diagnosis: 03/14/2020@09:00 I25.10 (ICD-10-CM) Atherosclerotic Heart Disease of [place] Coronary Artery without Angina Pectoris rank: SECONDARY Prov. Narr. - Atherosclerotic Heart Disease of [place] Coronary Artery without Angina Pectoris Action: No Referral Ordered: Eye exam was performed elsewhere by an Logistic Specialist or an Clinical Documentation Nurse Diabetic retinal exam result: Negative for Retinopathy Date: February 25, 2023 [facility] ELVIS ARIZMENDI Health Software Tools Build Engineer Signed: 03/11/2023 13:42 ELVIS ARIZMENDI [facility]
--- OUTSIDE RECORDS SUMMARY | 2024-03-04 00:24 | XMS_ITS | Encounter Summary ---
Author Name [facility] [place] [facility] [place] [facility] [place] Address [address] [place] [address] Care Team Providers Care Spray Gun Repairer Name Role Phone WARNER ORTIZ Primary Care [...] HIGH DEDUCTIBL E HEALTH PLAN WEIDM SADIE HDHP Jul 20, 2009 [id number] SRINIVAS BATISTAPema PATIENT EXPRESS SCRIPTS ([id number]) PRESCRIPT ION Jul 20, 2017 RXBWEID [id number] SRINIVAS BATISTA KISHAN PATIENT MEDICARE (WNR) MEDICARE (M) PART B Apr 19, 2020 PART B [id number] LESTERSRINIVAS HOLLEY PATIENT MEDICARE (WNR) MEDICARE (M) PART A Oct 19, 2019 PART A [id number] SRINIVAS BATISTA PATIENT RESTAT PRESCRIPT ZULMA DEWEY BLUE November 17, 2009 2821 [id number] SRINIVAS BATISTA PATIENT Selected Encounter This section includes the information on record at NE for the Encounter. Date/Time Encounter Type Encounter Description Reason Pro vider Source Mar 19, 2023 08:50 AM Outpatient Encounter ADMIN PAT ACTIVTIES (MASNONCT) IHE Encounter Template Text not used by VA Social History: Smoking Status (Most current) and Tobacco Use (All prior to encounter date) This section includes the most current, and the historical, smoking and tobacco- related health factors from the [place] facility where the Encounter took place. Current Smoking Status This section includes the most current smoking, or tobacco-related health factor, from the [place] facility where the Encounter took place. Date/Time Current Smoking Status Comment Facil ity Jan 26, 2003 10:05 AM QUIT TOBACCO USE > 7 YEARS AGO [facility] Tobacco Use History This section includes a history of the smoking, or tobacco-related health factors, that were collected on or before the date of the Encounter. The data comes from the [place] facility where the Encounter took place. Date/Time Smoking Status/Tobacco Use Comment F acility November 29, 2002 01:00 PM HISTORY OF SMOKING [facility] Advance Directives: All historical and current Section Date Range: From patient's date of to the date document was created. This section includes ALL of a patient's completed or amended [place] Advance and Rescinded Directives. The entries below indicate that a directive exists for the patient, but an actual copy is not included with this document. The data comes from all [place] facilities. Date Advance Directives Provider Source November 23, 2017 ADVANCE DIRECTIVE JOI DEVRIES [facility] Encounter Notes: All associated encounter notes This section contains the clinical notes associated to the Encounter. Date/Time Encounter Note(s) Provider Source Feb 25, 2023 08:50 AM NONVA NOTE: LOCAL TITLE: NonVA Medical Records STANDARD TITLE: NONVA NOTE DATE OF NOTE: FEB 25, 2023@08:50 ENTRY DATE: MAR 19, 2023@08:51:13 AUTHOR: ASEDRI,JAXON E EXP COSIGNER: URGENCY: STATUS: COMPLETED NONVA DOS: 02/25/2023 PROCEDURE VISIT-DIABETIC EXAMINATION, ADULT EYE HEALTH AND VISION EXAM [facility] E[facility] /jayce/ JAXON CARO FISHING WORKER Signed: 03/19/2023 08:52 Receipt Acknowledged By: 03/19/2023 12:51 /jayce/ JAXON HOYOS PA-C [facility]
--- OUTSIDE RECORDS SUMMARY | 2024-03-04 00:24 | XMS_ITS | Encounter Summary ---
Author Name [facility] [place] Organization [facility] [place] Address [address] [place] [address] Care Team Providers Care Devops Developer Name Role Phone WARNER ORTIZ Primary Care [...] PLAN WEIDM SADIE HP Jul 20, 2009 [id number] LESTERSRINIVAS MARIAPema PATIENT EXPRESS SCRIPTS ([id number]) PRESCRIPT ION Jul 20, 2017 RXBWEID [id number] LESTERSRINIVAS HOLLEY PATIENT MEDICARE (WNR) MEDICARE (M) PART B Apr 19, 2020 PART B [id number] SRINIVAS BATISTA PATIENT MEDICARE (WNR) MEDICARE (M) PART A Oct 19, 2019 PART A [id number] [phone] SRINIVAS BATISTA PATIENT RESTAT PRESCRIPT ZULMA DEWEY BLUE November [birth year], 2009 2821 [id number] SRINIVAS BATISTA PATIENT Selected Encounter This section includes the information on record at MD for the Encounter. Date/Time Encounter Type Encounter Description Reason Pro vider Source Oct 27, 2023 06:03 PM Outpatient Encounter PRIMARY CARE/MEDICINE IHE Encounter Template Text not used by MD Plan of Treatment: Future Appointments (+ 6 months) and Future Tests (+/- 45 days) The Plan of Treatment section includes future care activities for the patient from all MD treatmentfacilities. This section includes future appointments and future orders which are active, pending or scheduled. Future Appointments This section includes appointments that were scheduled to occur 6 months from the date of the Encounter, up to a maximum of 20 appointments. The data comes from all MD treatment facilities. Appointment Date/Time Appointment Type Appointme nt Facility Name Dec 30, 2023 11:30 AM AMBULATORY - NONE [facility] Mar 02, 2024 08:20 AM AMBULATORY - NONE [facility] Mar 15, 2024 04:00 [facility] Mar 23, 2024 11:30 AM AMBULATORY - SURGERY [facility] Active, Pending, and Scheduled Orders This section includes a listing of several types of active, pending, and scheduled orders, including clinic medications orders, diagnostic test orders, procedure orders and consult orders; where the start date of the order is 45 days before the date of the Encounter or 45 days after the date of theEncounter. The data comes from all [facility]. Test Date/Time Test Type Test Details Facility Name Oct 22, 2023 03:34 PM Consult Order COMMUNITY CARE-OPTOMETRY DISEASE MANAGEMENT Cons Store Sales Leader's Choice [facility] Oct 22, 2023 03:34 PM Consult Order PODIATRY O UTPATIENT Cons Store Sales Leader's [facility] Lab Results: +/- 30 days of the encounter This section includes the Chemistry and Hematology Lab Results on record with MD for the patient. Radiology Reports and Pathology Reports are provided separately, in subsequent sections. Lab Results This section contains the Chemistry/Hematology Results that were resulted 30 days before or 30 daysafter the date of the Encounter. Date/Time Source Result Type Result - Unit Interpretation Reference Range Comment Oct 22, 2023 02:03 PM [facility] LIVER PROFILE Specimen Type: PLASMA Comment: , Tests performed on VitaFlavor SN:[id number] (405). Ordering Provider: SWATI PEREZ Report Released Date/Time: Oct 15, 2023 04:17 PM Reporting Lab: [facility] [address] [address] Performing Lab: [facility] [address] [facility] [address] PROTEIN, TOTAL 7.2 g/dL 6.0-8.5 ALBUMIN 3.9 g/dL 3.2-5.0 BILIRUBIN, TOTAL 0.6 mg/dL 0.2-1.2 ALKALINE PHOSPHATASE 100 U/L 40-150 ALT(SGPT) 50 U/L 7-52 AST(SGOT) 32 U/L 5-34 FIB-4 SCORE 1.19 <2.67 Oct 22, 2023 02:03 PM [facility] P4 GLU,BUN,CREAT,LYTES,CA Specimen Type: PLASMA Comment: , Tests performed on Mccray Epoch SN:[id number] (405). Ordering Provider: SWATI PEREZ Report Released Date/Time: Oct 15, 2023 04:17 PM Reporting Lab: [facility] [address] [address] Performing Lab: [facility] [address] [address] UREA NITROGEN 19 mg/dL 7-25 SODIUM 137 mmol/L 135-145 POTASSIUM 4.5 mmol/L 3.5-5.0 CHLORIDE 103 mmol/L 100-110 CARBON DIOXIDE 26 mmol/L 20-30 ANION GAP 8 4-16 GLUCOSE 143 mg/dL H 65-100 CREATININE 0.96 mg/dL 0.50-1.50 CALCIUM 9.4 mg/dL 8.5-10.5 eGFR(CKD-EPI 2020) 86 mL/min See_Comment Oct 22, 2023 02:03 PM [facility] LIPOPROTEIN CHOLESTEROL FRACT. PANEL Specimen Type: PLASMA Comment: , Tests performed on Mccray Epoch SN:[id number] (405). Ordering Provider: SWATI PEREZ Report Released Date/Time: Oct 15, 2023 04:17 PM Reporting Lab: [facility] [address] [address] Performing Lab: [facility] [address] [address] CHOLESTEROL 154 mg/dL 0-200 TRIGLYCERIDE 227 mg/dL H 0-150 HDL CHOLESTEROL 42 mg/dL >40 LDL CHOLESTEROL (CALC) 67 mg/dL 0-129 Oct 22, 2023 02:03 PM [facility] CBC PROFILE Specimen Type: BLOOD No comment entered. Ordering Provider: SWATI PEREZ Report Released Date/Time: Oct 15, 2023 04:17 PM Reporting Lab: [facility] [address] [address] Performing Lab: [facility] [address] [address] WBC 8.2 10*3/uL 4.5-11.0 RBC 5.10 10*6/uL 4.23-5.66 HGB 14.9 g/dL 12.8-17 HEMATOCRIT 43.6 39.2-50.4 MCV 85.5 fL 82-99 MCH 29.2 pg 26.2-32.6 MCHC 34.2 g/dL 30.8-35.1 PLT 258 10*3/uL 140-360 MPV 10.6 fL 9.2-12.4 RDW 13.2 12.0-16.0 LYMPH % 31.3 14.0-42.3 MONO % 7.4 5.1-13.7 NEUT % 59.4 43.7-75.8 EOS % 1.1 0.4-6.8 BASO % 0.6 0.1-2.0 IG % 0.2 0.0-0.7 NUCLEATED RED CELLS 0.0 /100{WBCs} 0.0-0.0 ABSOLUTE IG 0.0 10*3/uL 0-0.06 ABSOLUTE BASOPHILS 0.1 10*3/uL 0.01-0.13 ABSOLUTE EOS. 0.1 10*3/uL 0.03-0.44 ABSOLUTE LYMPHOCYTES 2.6 10*3/uL 1.0-3.2 ABSOLUTE MONOCYTES 0.6 10*3/uL 0.3-1.1 ABSOLUTE GRANULOCYTES 4.9 10*3/uL 2.2-7.6 ABSOLUTE NRBC 0.00 10*3/uL 0-0 Oct 22, 2023 02:03 PM [facility] URINALYSIS W/REFLEX TO CULTURE Specimen Type: URINE No comment entered. Ordering Provider: SWATI PEREZ Report Released Date/Time: Oct 15, 2023 04:17 PM Reporting Lab: [facility] [address] [address] Performing Lab: [facility] [address] [address] URINE COLOR Light-Yellow NOT DEFINED SPECIFIC GRAVITY 1.027 1.003-1.030 UROBILINOGEN <2.0 mg/dL <2.0 URINE BILIRUBIN NEG NEG URINE KETONES NEG mg/dL NEG URINE GLUCOSE >1000 mg/dL NEG PROTEIN, URINE NEG mg/dL NEG URINE PH 6.5 5-8 CLARITY CLEAR NOT DEFINED URINE BLOOD NEG NEG NITRITE, URINE NEG NEG WBC SCREEN NEG NEG Oct 22, 2023 02:03 PM [facility] MICROALBUMIN/CREATININE RATIO PANEL Specimen Type: URINE Comment: , Tests performed on Software 2000 SN:[id number] (405) Ordering Provider: SWATI PEREZ Report Released Date/Time: Oct 15, 2023 04:17 PM Reporting Lab: [facility] [address] [address] Performing Lab: [facility] [address] [address] CREATININE (URINE,RANDOM) 47.00 mg/dL MICROALBUMIN, QUANTITATIVE 0.1 mg/dL 0.0-29.9 MICROALBUMIN/CRE A TININE RATIO 2.1 mg/g 0.0-29.9 Oct 22, 2023 02:03 PM [facility] GLYCOHEMOGLOBIN (A1C ONLY) Specimen Type: BLOOD Comment: , Tests performed on Software 2000 SN:[id number] (405) Values obtained from A1C measurements can vary. For typical A1C assays, a reported value of 7.0 could actually be between 6.72 and 7.28 if measured by a reference method. A reported value of 9.0 could actually be between 8.73 and 9.27. Ref: http://www.ngs p.org/CAPdata. asp Ordering Provider: SWATI PEREZ Report Released Date/Time: Oct 15, 2023 04:17 PM Reporting Lab: [facility] [address] [address] Performing Lab: [facility] [address] [address] HEMOGLOBIN A1C 6.0 H 4.0-5.6 Oct 22, 2023 02:03 PM [facility] TSH Specimen Type: SERUM Comment: , Tests performed on Mccray [employer] Gott[employer]b SN:[id number] (405) TSH within normal limits. Reflex testing not required. Ordering Provider: SWATI PEREZ Report Released Date/Time: Oct 15, 2023 04:17 PM Reporting Lab: [facility] [address] [address] Performing Lab: [facility] [address] [facility] [address] TSH 1.13 u[IU]/mL 0.35-5.00 Oct 22, 2023 02:03 PM [facility] VITAMIN B-12 Specimen Type: SERUM Comment: , Tests performed on Mccray [employer] Gottlieb SN:[id number] (405) TSH within normal limits. Reflex testing not required. Ordering Provider: SWATI PEREZ Report Released Date/Time: Oct 15, 2023 04:17 PM Reporting Lab: [facility] [address] [facility] [address] Performing Lab: [facility] [address] [address] VITAMIN B-12 548 pg/mL 200-900 Oct 22, 2023 02:03 PM [facility] PSA (AUTO SERVICE ADVISOR) Specimen Type: SERUM Comment: , Tests performed on Mccray [employer] Gottlieb SN:[id number] (405) TSH within normal limits. Reflex testing not required. Ordering Provider: SWATI PEREZ Report Released Date/Time: Oct 15, 2023 04:17 PM Reporting Lab: [facility] [address] [facility] [address] Performing Lab[facility] [address] [address] PSA (AUTO SERVICE ADVISOR) 0.41 ng/mL See_Comment Oct 22, 2023 02:03 PM [facility] VIT D 25-OH([facility]) Specimen Type: SERUM Comment: , Tests performed on Mccray [employer] Gottlieb SN:[id number] (405) TSH within normal limits. Reflex testing not required. Ordering Provider: SWATI PEREZ Report Released Date/Time: Oct 15, 2023 04:17 PM Reporting Lab: [facility] [address] [address] Performing Lab: [facility] [address] [address] VIT D 25-OH([facility]) 16.1 ng/mL L 20.0-50.0 Social History: Smoking Status (Most current) and Tobacco Use (All prior to encounter date) This section includes the most current, and the historical, smoking and tobacco- related health factors from the MD facility where the Encounter took place. Current Smoking Status This section includes the most current smoking, or tobacco-related health factor, from the MD facility where the Encounter took place. Date/Time Current Smoking Status Comment Facil ity Jan 26, 2003 10:05 AM QUIT TOBACCO USE > 7 YEARS AGO [facility] Tobacco Use History This section includes a history of the smoking, or tobacco-related health factors, that were collected on or before the date of the Encounter. The data comes from the MD facility where the Encounter took place. Date/Time Smoking Status/Tobacco Use Comment F acility November 29, 2002 01:00 PM HISTORY OF SMOKING [facility] Advance Directives: All historical and current Section Date Range: From patient's date of to the date document was created. This section includes ALL of a patient's completed or amended MD Advance and Rescinded Directives. The entries below indicate that a directive exists for the patient, but an actual copy is not included with this document. The data comes from all MD facilities. Date Advance Directives Provider Source November 23, 2017 ADVANCE DIRECTIVE KAYCEJOI MASTERS [facility] Encounter Notes: All associated encounter notes This section contains the clinical notes associated to the Encounter. Date/Time Encounter Note(s) Provider Source Oct 27, 2023 06:03 PM LABORATORY NOTE: LOCAL TITLE: [facility] PATIENT LAB RESULTS LETTER STANDARD TITLE: LABORATORY NOTE DATE OF NOTE: OCT 27, 2023@18:03 ENTRY DATE: OCT 27, 2023@18:04:03 AUTHOR: SWATI PEREZ EXP COSIGNER: URGENCY: STATUS: COMPLETED OCT 27, 2023 MR. CLAUDIA BATISTA [address] [facility] [address] [place] [address] Dear Mr. Batista, I'm writing to let you know the results of your most recent lab tests. You hopefully already reviewed them with your community primary care provider as we faxed the results on 10/23/23. : Blood counts (red blood cells and white blood cells): Normal Test Name Result Units Range --------- ------ ----- ----- WBC 8.2 10*3/uL 4.5 - 11.0 RBC 5.10 10*6/uL 4.23 - 5.66 HGB 14.9 g/dl 12.8 - 17 HEMATOCRIT 43.6 % 39.2 - 50.4 MCV 85.5 fl 82 - 99 MCH 29.2 pg 26.2 - 32.6 MCHC 34.2 g/dl 30.8 - 35.1 RDW 13.2 % 12.0 - 16.0 PLT 258 10*3/uL 140 - 360 MPV 10.6 fl 9.2 - 12.4 NEUT % 59.4 % 43.7 - 75.8 LYMPH % 31.3 % 14.0 - 42.3 MONO % 7.4 % 5.1 - 13.7 EOS % 1.1 % 0.4 - 6.8 BASO % 0.6 % 0.1 - 2.0 IG % 0.2 % 0.0 - 0.7 Vitamin D, B-12, and thyroid: Your vitamin D level is low and I advise treatment. Please contact me if you would like me to advise on treatment rather than having your community PCP do so. Test Name Result Units Range --------- ------ ----- ----- TSH 1.13 uIU/mL 0.35 - 5.00 VITAMIN B-12 548 pg/mL 200 - 900 VIT D 25-OH(WRJ) 16.1 L ng/mL 20.0 - 50.0 Blood sugar, kidneys, liver, cholesterol and electrolytes: Test Name Result Units Range --------- ------ ----- ----- GLUCOSE 143 H mg/dL 65 - 100 UREA NITROGEN 19 mg/dL 7 - 25 CREATININE 0.96 mg/dL 0.50 - 1.50 eGFR(CKD-EPI 2020) 86 mL/min 60 - >90 SODIUM 137 mmol/L 135 - 145 POTASSIUM 4.5 mmol/L 3.5 - 5.0 CHLORIDE 103 mmol/L 100 - 110 CARBON DIOXIDE 26 mmol/L 20 - 30 ANION GAP 8 4 - 16 CALCIUM 9.4 mg/dL 8.5 - 10.5 PROTEIN, TOTAL 7.2 g/dL 6.0 - 8.5 ALBUMIN 3.9 g/dL 3.2 - 5.0 ALKALINE PHOSPHATASE 100 U/L 40 - 150 ALT(SGPT) 50 U/L 7 - 52 AST(SGOT) 32 U/L 5 - 34 FIB-4 SCORE 1.19 Ref: <=2.67 BILIRUBIN, TOTAL 0.6 mg/dL 0.2 - 1.2 CHOLESTEROL 154 mg/dL 0 - 200 TRIGLYCERIDE 227 H mg/dL 0 - 150 HDL CHOLESTEROL 42 mg/dL Ref: >=40 LDL CHOLESTEROL (CALC) 67 mg/dL 0 - 129 Hemoglobin A1c (test to determine average blood sugar for the past 3 months: Your diabetes is well controlled. Test Name Result Units Range --------- ------ ----- ----- HEMOGLOBIN A1C 6.0 H % 4.0 - 5.6 Urinalysis: Elevated glucose (sugar) in urine which is to be expected when taking the dapagliflozin. Test Name Result Units Range --------- ------ ----- ----- URINE COLOR Light-Yellow Ref: NOT DEFINED CLARITY CLEAR Ref: NOT DEFINED SPECIFIC GRAVITY 1.027 1.003 - 1.030 URINE PH 6.5 5 - 8 PROTEIN, URINE NEG mg/dL Ref: NEG URINE GLUCOSE >1000 mg/dL Ref: NEG URINE KETONES NEG mg/dL Ref: NEG URINE BILIRUBIN NEG Ref: NEG URINE BLOOD NEG Ref: NEG UROBILINOGEN <2.0 mg/dL Ref: <2.0 NITRITE, URINE NEG Ref: NEG WBC SCREEN NEG Ref: NEG Test Name Result Units Range --------- ------ ----- ----- CREATININE (URINE,RANDOM) 47.00 mg/dL MICROALB 0.1 mg/dL 0.0 - 29.9 MAL/CRE 2.1 mg/g 0.0 - 29.9 Prostate cancer screening test: normal PSA (AUTO SERVICE ADVISOR) 0.41 ng/mL <0.10 - 4.0 Please don't hesitate to call the office if you have questions or concerns. Sincerely, AUNDREA Pelayo ZANDRA [phone] /es/ SWATI PEREZ PA-C Signed: 10/27/2023 18:08 Receipt Acknowledged By: 10/28/2023 07:26 /es/ ELVIS [facility] Supervisor Cytogenetic Laboratory SWATI PEREZ
--- OUTSIDE RECORDS SUMMARY | 2024-03-04 00:24 | XMS_ITS | Encounter Summary ---
Author Name [facility] Organization [facility] Address [address] [place] [address] Care Team Providers Care Svp Marketing Name Role Phone WARNER ORTIZ Primary Care [...] PLAN WEIDM SADIE HP Jul 20, 2009 [id number] SRINIVAS BATISTA PATIENT EXPRESS SCRIPTS ([id number]) PRESCRIPT ION Jul 20, 2017 [id number] SRINIVAS BATISTA PATIENT MEDICARE (WNR) MEDICARE (M) PART B Apr 19, 2020 PART B [id number] [phone] MATTE,SRINIVAS RGE PATIENT MEDICARE (WNR) MEDICARE (M) PART A Oct 19, 2019 PART A [id number] [phone] SRINIVAS BATISTA PATIENT RESTAT PRESCRIPT ION CBA BLUE November 17, 2009 [id number] SRINIVAS BATISTA PATIENT Selected Encounter This section includes the information on record at MD for the Encounter. Date/Time Encounter Type Encounter Description Reason Provider Source Oct 22, 2023 02:00 PM OFFICE O/P EST HI 40 MIN PRIMARY CARE/MEDICINE ICD-10-CM E11.9 Type 2 diabetes mellitus without complications SWATI PEREZ Pema Encounter Template Text not used by MD Assessments - Encounter Diagnoses This section includes the primary and secondary diagnoses documented for the Encounter. Date/Time Primary/Secondary Diagnosis Diagnosis Name Provider Source Oct 22, 2023 03:32 PM PRIMARY Type 2 diabetes mellitus without [facility] Oct 22, 2023 03:32 PM SECONDARY Essential (primary) hypertension SWATI PEREZ [facility] Oct 22, 2023 03:32 PM SECONDARY Fatty (change of) liver, not elsewhere classified SWATI PEREZ [facility] Oct 22, 2023 03:32 PM SECONDARY Ingrowing nail SWATI PEREZ [facility] Oct 22, 2023 03:32 PM SECONDARY Noninfective gastroenteritis and colitis, unspecified SWATI PEREZ [facility] Oct 22, 2023 03:32 PM SECONDARY Unspecified sensorineural hearing loss SWATI PEREZ [facility] Plan of Treatment: Future Appointments (+ 6 [...] 2023 11:30 AM AMBULATORY - NONE [place] [facility] Mar 02, 2024 08:20 AM AMBULATORY - NONE [place] [facility] Mar 15, 2024 04:00 PM AMBULATORY - REHAB MEDICIN E [facility] Mar 23, 2024 11:30 AM AMBULATORY - SURGERY [facility] Active, Pending, and Scheduled Orders This section includes a listing of several types of active, pending, and scheduled orders, including clinic medications orders, diagnostic test orders, procedure orders and consult orders; where the start date of the order is 45 days before the date of the Encounter or 45 days after the date of theEncounter. The data comes from all MD treatment facilities. Test Date/Time Test Type Test Details Facility Name Oct 22, 2023 03:34 PM Consult Order COMMUNITY CARE-OPTOMETRY DISEASE MANAGEMENT [place] [facility] Oct 22, 2023 03:34 PM Consult Order PODIATRY O UTPATIENT [place] [facility] Lab Results: +/- 30 days of the encounter This section includes the Chemistry and Hematology Lab Results on record with [facility] for the patient. Radiology Reports and Pathology Reports are provided separately, in subsequent sections. Lab Results This section contains the Chemistry/Hematology Results that were resulted 30 days before or 30 daysafter the date of the Encounter. Date/Time Source Result Type Result - Unit Interpretation Reference Range Comment Oct 22, 2023 02:03 PM [facility] LIPOPROTEIN CHOLESTEROL FRACT. PANEL Specimen Type: PLASMA Comment: , Tests performed on Mccray Joosy SN:[id number] (405). Ordering Provider: SWATI PEREZ Report Released Date/Time: Oct 15, 2023 04:17 PM Reporting Lab[facility] [address] [facility] [address] Performing Lab: [facility] [address] [facility] [address] CHOLESTEROL 154 mg/dL 0-200 TRIGLYCERIDE 227 mg/dL H 0-150 HDL CHOLESTEROL 42 mg/dL >40 LDL CHOLESTEROL (CALC) 67 mg/dL 0-129 Oct 22, 2023 02:03 PM [facility] P4 GLU,BUN,CREAT,LYTES,CA Specimen Type: PLASMA Comment: , Tests performed on [place] SN:[id number] (405). Ordering Provider: SWATI PEREZ Report Released Date/Time: Oct 15, 2023 04:17 PM Reporting Lab: [facility] [address] [facility] [address] Performing Lab: [facility] [address] [facility] [address] UREA NITROGEN 19 mg/dL 7-25 SODIUM 137 mmol/L 135-145 POTASSIUM 4.5 mmol/L 3.5-5.0 CHLORIDE 103 mmol/L 100-110 CARBON DIOXIDE 26 mmol/L 20-30 ANION GAP 8 4-16 GLUCOSE 143 mg/dL H 65-100 CREATININE 0.96 mg/dL 0.50-1.50 CALCIUM 9.4 mg/dL 8.5-10.5 eGFR(CKD-EPI 2020) 86 mL/min See_Comment Oct 22, 2023 02:03 PM [facility] LIVER PROFILE Specimen Type: PLASMA Comment: , Tests performed on Mccray Joosy SN:[id number] (034). Ordering Provider: SWATI PEREZ Report Released Date/Time: Oct 15, 2023 04:17 PM Reporting Lab: [facility] [address] [facility] [address] Performing Lab: [place] [id number] PROTEIN, TOTAL 7.2 g/dL 6.0-8.5 ALBUMIN 3.9 g/dL 3.2-5.0 BILIRUBIN, TOTAL 0.6 mg/dL 0.2-1.2 ALKALINE PHOSPHATASE 100 U/L 40-150 ALT(SGPT) 50 U/L 7-52 AST(SGOT) 32 U/L 5-34 FIB-4 SCORE 1.19 <2.67 Oct 22, 2023 02:03 PM [facility] GLYCOHEMOGLOBIN (A1C ONLY) Specimen Type: BLOOD Comment: , Tests performed on Mccray [employer]trust Gottlieb SN:[id number] (405) Values obtained from A1C measurements can vary. For typical A1C assays, a reported value of 7.0 could actually be between 6.72 and 7.28 if measured by a reference method. A reported value of 9.0 could actually be between 8.73 and 9.27. Ref: http://www.ngs p.org/CAPdata. asp Ordering Provider: SWATI PEREZ Report Released Date/Time: Oct 15, 2023 04:17 PM Reporting Lab: [facility] [address] [facility] [address] Performing Lab: [facility] [address] [place] [phone] HEMOGLOBIN A1C 6.0 H 4.0-5.6 Oct 22, 2023 02:03 PM [facility] MICROALBUMIN/CREATININE RATIO PANEL Specimen Type: URINE Comment: , Tests performed on Folloyu Gottlieb SN:[id number] (405) Ordering Provider: SWATI PEREZ Report Released Date/Time: Oct 15, 2023 04:17 PM Reporting Lab: [facility] [address] [place] [id number] Performing Lab: [facility] [address] [place] [id number] CREATININE (URINE,RANDOM) 47.00 mg/dL MICROALBUMIN, QUANTITATIVE 0.1 mg/dL 0.0-29.9 MICROALBUMIN/CRE A TININE RATIO 2.1 mg/g 0.0-29.9 Oct 22, 2023 02:03 PM [facility] CBC PROFILE Specimen Type: BLOOD No comment entered. Ordering Provider: SWATI PEREZ Report Released Date/Time: Oct 15, 2023 04:17 PM Reporting Lab: [facility] [address] [place] [phone] Performing Lab: [facility] [address] [place] [address] WBC 8.2 10*3/uL 4.5-11.0 RBC 5.10 10*6/uL [...] 10*3/uL 0-0 Oct 22, 2023 02:03 PM [facility] URINALYSIS W/REFLEX TO CULTURE Specimen Type: URINE No comment entered. Ordering Provider: SWATI PEREZ Report Released Date/Time: Oct 15, 2023 04:17 PM Reporting Lab: [facility] [id number] Performing Lab: [facility] [address] [place] [address] URINE COLOR Light-Yellow NOT DEFINED SPECIFIC GRAVITY 1.027 1.003-1.030 UROBILINOGEN <2.0 mg/dL <2.0 URINE BILIRUBIN NEG NEG URINE KETONES NEG mg/dL NEG URINE GLUCOSE >1000 mg/dL NEG PROTEIN, URINE NEG mg/dL NEG URINE PH 6.5 5-8 CLARITY CLEAR NOT DEFINED URINE BLOOD NEG NEG NITRITE, URINE NEG NEG WBC SCREEN NEG NEG Oct 22, 2023 02:03 PM [facility] TSH Specimen Type: SERUM Comment: , Tests performed on Mccray [employer] Gottlieb SN:[id number] (405) TSH within normal limits. Reflex testing not required. Ordering Provider: SWATI PEREZ Report Released Date/Time: Oct 15, 2023 04:17 PM Reporting Lab: [facility] [address] [facility] [address] Performing Lab: [facility] [address] [place] [phone] TSH 1.13 u[IU]/mL 0.35-5.00 Oct 22, 2023 02:03 PM [facility] VITAMIN B-12 Specimen Type: SERUM Comment: , Tests performed on Mccray [employer] Gottlieb SN:[id number] (405) TSH within normal limits. Reflex testing not required. Ordering Provider: SWATI PEREZ Report Released Date/Time: Oct 15, 2023 04:17 PM Reporting Lab: [facility] [address] [facility] [address] Performing Lab: [facility] [address] [facility] [address] VITAMIN B-12 548 pg/mL 200-900 Oct 22, 2023 02:03 PM [facility] PSA (GEAR TOOTH GRINDING MACHINE OPERATOR) Specimen Type: SERUM Comment: , Tests performed on Mccray Paper Folding Machine Operator Gottlieb SN:[id number] (405) TSH within normal limits. Reflex testing not required. Ordering Provider: SWATI PEREZ Report Released Date/Time: Oct 15, 2023 04:17 PM Reporting Lab: [facility] [address] [facility] [address] Performing Lab: [facility] [address] [facility] [address] PSA (GEAR TOOTH GRINDING MACHINE OPERATOR) 0.41 ng/mL See_Comment Oct 22, 2023 02:03 PM [facility] VIT D 25-OH(WRJ) Specimen Type: SERUM Comment: , Tests performed on Mccray Paper Folding Machine Operator Gottlieb SN:[id number] (405) TSH within normal limits. Reflex testing not required. Ordering Provider: SWATI PEREZ Report Released Date/Time: Oct 15, 2023 04:17 PM Reporting [facility] [address] [facility] [address] Performing Lab: [facility] [address] [facility] [address] VIT D 25-OH(WRJ) 16.1 ng/mL L 20.0-50.0 Social History: Smoking [...] took place. Date/Time Current Smoking Status Comment Yamilet gratn Oct 22, 2023 02:00 PM VA-TOBACCO FORMER USER [facility] Tobacco Use History This section includes a history of the smoking, or tobacco-related health factors, that were collected on or before the date of the Encounter. The data comes from the MD facility where the Encounter took place. Date/Time Smoking Status/Tobac co Use Comment Facility Oct 22, 2023 02:00 PM VA-TOBACCO QUIT 15 YRS OR MORE [facility] Sep 17, 2022 03:00 PM VA-TOBACCO FORMER USER [facility] Sep 17, 2022 03:00 PM VA-TOBACCO QUIT 15 YRS OR MORE [facility] Mar 14, 2020 09:00 AM VA-TOBACCO FORMER USER [facility] Mar 14, 2020 09:00 AM VA-TOBACCO QUIT 15 YRS OR MORE [facility] Oct 14, 2016 03:02 PM QUIT TOBACCO USE > 7 YEARS AGO quit about 24 years ago [facility] Oct 16, 2015 08:12 AM QUIT TOBACCO USE > 7 YEARS AGO quit approximately 23 years ago [facility] Oct 14, 2004 09:08 AM HISTORY OF SMOKING 12 yrs ago [facility] Advance Directives: All historical and current [...] Source November 23, 2017 ADVANCE DIRECTIVE [facility]CEJOICLAIRE [facility] Encounter Notes: All associated encounter notes This section contains the clinical notes associated to the Encounter. Date/Time Encounter Note(s) Provider Source Oct 22, 2023 03:33 PM PRIMARY CARE ADMIN ISTRATIVE NOTE: LOCAL TITLE: Administrative Note/Primary Care STANDARD TITLE: PRIMARY CARE ADMINISTRATIVE NOTE DATE OF NOTE: OCT 22, 2023@15:33 ENTRY DATE: OCT 22, 2023@15:33:24 AUTHOR: SWATI PEREZ EXP COSIGNER: URGENCY: STATUS: COMPLETED Administrative Note/Primary Care Has ADDENDA Dariln - please fax copy of labs done today when available to [facility], Dorothy Juarez Vet has jesus alberto't this Mon with PCP. /jayce/ SWATI PEREZ PA-C Signed: 10/22/2023 15:34 Receipt Acknowledged By: 10/23/2023 10:37 /jayce/ MARTINE ANTONY LPN 10/23/2023 ADDENDUM STATUS: COMPLETED faxed /jayce/ MARTINE ANTONY LPN Signed: 10/23/2023 10:37 SWATI PEREZ [facility] Oct 22, 2023 02:28 PM PRIMARY CARE POORNIMA Ryan EVALUATION NOTE: LOCAL TITLE: Preventive Health Annual Review STANDARD TITLE: PRIMARY CARE ANNUAL EVALUATION NOTE DATE OF NOTE: OCT 22, 2023@14:28 ENTRY DATE: OCT 22, 2023@14:28:28 AUTHOR: ELVIS ARIZMENDI EXP COSIGNER: URGENCY: STATUS: COMPLETED COVID-19 Immunization: Refused Moderna Monovalent COVID-19 vaccine Immunization: COVID-19 (MODERNA), MRNA, LNP-S, PF, 50 MCG/0.5 ML (AGES 12+ YEARS) Refusal Reason: PATIENT DECISION Patient refuses all immunization(s) in the COVID-19 group Date Documented: 10/22/23 14:28 Influenza Immunization: The patient declines to receive the recommended dose of seasonal influenza vaccine. Immunization: INFLUENZA, UNSPECIFIED FORMULATION Refusal Reason: PATIENT DECISION Patient refuses all immunization(s) in the FLU group Date Documented: 10/22/23 14:29 Herpes Zoster (Shingles) Vaccine: The patient declines to receive the recommended dose of zoster (shingles) vaccine. Immunization: ZOSTER RECOMBINANT Refusal Reason: PATIENT DECISION Patient refuses all immunization(s) in the ZOSTER group Date Documented: 10/22/23 14:29 Pneumococcal Conjugate Vaccine (PCV15/PCV20): Refuses PCV vaccine Immunization: PNEUMOCOCCAL CONJUGATE, UNSPECIFIED FORMULATION Refusal Reason: PATIENT DECISION Patient refuses all immunization(s) in the PneumoPCV group Date Documented: 10/22/23 14:30 Td / Tdap Immunization: The patient declines to receive the recommended dose of Td/Tdap vaccine. Immunization: TD(ADULT) UNSPECIFIED FORMULATION Refusal Reason: PATIENT DECISION Patient refuses all immunization(s) in the Td group Date Documented: 10/22/23 14:30 /lalit ARIZMENDI Health Rating Officer Signed: 10/22/2023 14:30 ELVIS ARIZMENDI [facility] Oct 22, 2023 02:19 PM PRIMARY CARE NOTE: LOCAL TITLE: Primary Care Clinic Note STANDARD TITLE: PRIMARY CARE NOTE DATE OF NOTE: OCT 22, 2023@14:19 ENTRY DATE: OCT 22, 2023@14:19:27 AUTHOR: SWATI PEREZ EXP COSIGNER: URGENCY: STATUS: COMPLETED PROBLEM LIST Code Description K76.0 NAFL - non-alcoholic fatty liver ([facility] [id number]) K52.9 Chronic diarrhea ([facility] [id number]) K58.0 Irritable bowel syndrome with diarrhea ([facility] [id number]) E11.9 Diabetes mellitus type 2 without retinopathy ([facility] [id number]) 354.0 Carpal Tunnel Syndrome (ICD-9-CM 354.0) 780.52 Insomnia (ICD-9-CM 780.52) 414.00 Cad (ICD-9-CM 414.00) 278.00 Obesity (ICD-9-CM 278.00) I10. Hypertension ([facility] [id number]) V65.9 Health Maintenance (ICD-9-CM V65.9) 412. Old Myocardial Infarction (ICD-9-CM 412.) 272.0 High Cholesterol (ICD-9-CM 272.0) Active Outpatient Medications (excluding Supplies): Active Non-VA Medications Status 1) Non-VA AMLODIPINE BESYLATE 10MG TAB 10MG MOUTH EVERY ACTIVE DAY 2) Non-VA ASPIRIN 325MG TAB 325MG MOUTH EVERY DAY ACTIVE 3) Non-VA ASPIRIN 81MG EC TAB 81MG BY MOUTH ONCE DAILY ACTIVE 4) Non-VA DAPAGLIFLOZIN 5MG TAB 5MG BY MOUTH EVERY DAY ACTIVE 5) Non-VA DULAGLUTIDE 1.5MG/0.5ML INJ PEN 1.5MG/0.5ML ACTIVE SUBCUTANEOUSLY ONCE A WEEK 6) Non-VA INSULIN,LISPRO,HUMAN 100/ML KWIKPEN 3ML 100 ACTIVE UNIT/ML SUBCUTANEOUSLY 7) Non-VA LISINOPRIL 5MG TAB 5MG MOUTH EVERY DAY ACTIVE 8) Non-VA METFORMIN HCL 1000MG TAB 1000MG MOUTH TWICE A ACTIVE DAY 9) Non-VA METOPROLOL SUCCINATE 50MG SA TAB 150MG MOUTH ACTIVE EVERY DAY 10) Non-VA RANOLAZINE 500MG SA TAB 500MG BY MOUTH TWICE A ACTIVE DAY 11) Non-VA ROSUVASTATIN CA 40MG TAB 40MG MOUTH EVERY DAY ACTIVE 12) Non-VA TRAZODONE HCL 50MG TAB 50MG BY MOUTH AT ACTIVE BEDTIME Medication list reviewed with patient: Yes Is the patient taking all prescribed medications: Yes Patient has all prescribed medications: Yes Medications the patient is taking that are not on the medication list: None Any adverse side effects from medications: None ALLERGIES: Patient has answered NKA IMMUNIZATIONS: Recorded Td/Tdap Vaccinations Information: Reminder Term: VA-TETANUS/DIPHTHERIA IMMUNIZATION Immunization: TDAP Immunization: TD(ADULT) UNSPECIFIED FORMULATION 05/20/1999 08/28/1998 No INFLUENZA Immunizations on file within 1Y. Recorded Pneumococcal Vaccinations Information: Reminder Term: VA-PNEUMOC PPSV23 IMMUNIZATION Immunization: PNEUMOCOCCAL, UNSPECIFIED FORMULATION 07/06/2003@15:00 Comments: Site:Left Deltoid The most recent entry of PPSV23 was given too close to the prior dose to be counted as a valid repeat dose. 67yo, WHITE, MALE Chief complaint and HPI: Mr. Batista is a 67 yo male here for VA PCP follow up. Medical hx significant for CAD, Hx [place] and angioplasty, DM II, HTN, NAFLD, dyslipidemia, chronic diarrhea, jeanine on cpap. Dual care: Has Community PCP at [facility], Dorothy Juarez. Jesus Alberto't next week. Seen routinely and wants healthcare managed by community pcp. Non VA Cardiology: Parisa recent jesus alberto't Non VA GI: Had normal colonscopy November 2023 per pt report. At PCP visit last year, eval of chronic diarrhea showed several abnormal tests: elevated fecal fat and elevation of amylase and lipase. PCP was informed and he was given choice of community or VA PCP follow up. He did not contact MD. He states he did not have f/u imaging; however, states states diarrhea resolved off metformin. Now on magnesium and metamucil to avoid constipation. He denies abdominal pain or digestive issues. He states his HgA1c went up into the 8's so was referred to business developer. Has changed his diet, which has been really hard and states HgA1c down in the 6's. Did not tolerate 2 trials of GLP-1 meds. He wants to continue to get all meds ouside of MD as it is less expensive. He reports occ chest pains, which his dredge deckhand is aware of. Did not need nitro. He states he is seen regularly by dredge deckhand and is up to date on cardiac testing. He reports having had a really bad respiratory illness a few months ago and was tx with nebulized medication and given an albuterol MDI. He still uses the MDI prn with activities, and it helps. No chronic cough. Distant past hx smoking. He reports recurrent problems with ingrown toenails since he was in the . Would like podiatry consult. Has problems with chronic neck pain and R arm pain. Sees chiropractor periodically, which helps some. He is planning to request further eval of symps with community pcp. Surgical history: Bilat rotator cuff bilat CTS Umbilical hernia Cholecystectomy L foot achilles spur R 5th toe removal (post op infection, so had to be removed) Multiple stents RCA and LAD: 2003, 2009, 2015 Family History; Father - severe CAD deceaesd age 61 Mother - a fib Siblings - DM - brother CAD - 2 brother 2 brothers 3 sisters still alive brother - GSW age 24 sister - COPD. Fell and broke tailbone, had severe pain Multiple relatives with diarrhea issues: brother and sister, neices and nephews with similar issues. SOCIAL HISTORY: Tobacco= former d/c 30+ years ago (when had first [place]) Alcohol=none Marital status = . 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 Ingrown toenails since in . 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 No polyps. Repeat 10 years per his recollection. AAA - Neg September 2023 Depression - denies Dental -[facility] q year. Due in December. ROS - 06/02 review of systems is completed and is negative except as stated above in HPI. Systems reviewed: Constitutional, Eyes, ENT, Respiratory, CV, GI, , MSK, Skin, Neuro and psych. Physical Exam WEIGHT: 231.2 lb [104.87 kg] (10/22/2023 14:10) BP: 132/66 (10/22/2023 14:10) PULSE: 60 (10/22/2023 14:10) RESP: 16 (10/09/2014 08:05) TEMP: 97.5 F [36.4 C] (10/22/2023 14:10) PULSE OX 10/22/23 @ 1410 PULSE OXIMETRY: 94 Appearance: WNWD Eyes: no conjunctival injection, no icterus ENMT: Moist MM, no erythema or exudates. crowded airway. Ears: Normal TMs. Neck: No enlarged nodes or masses. CVS: RRR, I/ SLADE. No LE edema RESP: Normal respirations. No wheezes or crackles. GI: NTND, BS active. No masses. MSK: No deformities. NL ROM upper and lower extremities. No calf swelling or tenderness. Skin: Warm, Dry. No suspicious lesions noted. Neuro: Grossly nonfocal. No tremors. Psych: Appropriate mood and affect. Speech clear and logical. Good historian Most recent lab data - WBC: 9.0 (10/20/22 11:36) HCT: 47.3 (10/20/22 11:36) HGB: 15.7 (10/20/22 11:36) PLT: 265 (10/20/22 11:36) NA: 138 (10/20/22 11:36) K: 4.2 (10/20/22 11:36) CL: 104 (10/20/22 11:36) CO2: 23 (10/20/22 11:36) BUN: 14 (10/20/22 11:36) CREATI: 0.76 (10/20/22 11:36) GLU: 109 (10/20/22 11:36) LFT: No data available CHOL: 201 (10/20/22 11:36) HDL: 49 (10/20/22 11:36) LDL: 101 (10/20/22 11:36) TRI (10/20/22 11:36) TSH: 1.33 (10/20/22 11:36) PSA (GEAR TOOTH GRINDING MACHINE OPERATOR) - NONE FOUND Assessment and Plan: # DM: - Managed by community pcp - labs drawn today will be faxed to pcp. - Has CGM - med list updated - CC to [facility] for eye exam - due December - CC to [facility] for podiatry - praise given for dietary changes. Encouraged routine exercise and wt loss. # NAFLD: - Follow up with clean out driller in [place] - reports recent liver u/s # Chronic diarrhea: - resolved off metformin # Cervicagia with R radiculopathy: - he plans to discuss further community PCP - discussed continued health care recruiter ok if beneficial and does not exacerbate his symptoms (which it hasn't). - advised he can call for CC consult if needed, but currently his insurance covers it. # recurrent ingrown toenails since in : -CC consult to podiatry [facility] area - advised to [place] - [place]SO and benefits contacts provided. # hearing loss: - advsied to [place] for [place] benefits - advised to sched audiology consult before leaving building # HTN: - adequate control on current regimen. - check labs today # Hyperlipidemia: - on statin - Check lipids today # CAD, Hx [place] and angioplasty: - stable angina - on BB, ASA and statin - carries nitro, reminded to replace yearly - f/u with his dredge deckhand as planned # HCM: - vaccines managed by community PCP Labs Ordered : Lipids, LFT's, BMP, CBC, UA, Urine for microalbumin, TSH, HbA1c, B-12, Vit D, PSA RTC - 24 months Patient Education - Encouraged to work on adding vegetables, fruits, fiber, nuts, legumes, whole grains and lean proteins into diet. Urged to limit sugar such as in soda and other sugary drinks, candy, desserts and producs containing corn syrup. Also, limit other high carb foods such as pasta, white bread and potatoes. Limit processed foods as much as possible. Goal for exercise is 30 minutes/5 times a week. Total of 5+ minutes ( 5+ min FTF) spent on today's visit including but not limited to: * Preparing to see the patient (e.g., reviewing medical history, previous notes, test, consults, imgaging reports, etc. ) * Counseling or educating the patient * Ordering tests - labs and imaging, including CC consults * Documentation work performed after visit * Care coordination (when not separately reportable) * Getting and/or reviewing separately obtained history * Referring the patient to and communicating with other health ocular care aide (when not separately reportable I spent more than 50% of this encounter counseling the pt on the medical health issues listed above. The treatment plans above have been agreed upon by myself and the pt through shared decision making. [facility] Tobacco Use Screening: The patient is a former tobacco user. The patient quit fifteen or more years ago. PAVE Foot Check: A complete foot check was completed at this encounter. VISUAL INSPECTION: Includes inspection for skin breaks, deformity, erythema, trauma, pallor on elevation, dependent rubor, nail deformities, extensive callus and pitting edema. Visual exam results: Normal PEDAL PULSES: Includes palpation of dorsalis and posterior tibial pulses and signs/symptoms of vascular compromise like pain, pallor, parasthesia or paralysis. Present (even if diminished) SENSORY CHECK: Includes 10 gram Monofilament ([place]) test of sensation. Intact (Greater than or equal to 80% of sites checked) Abnormal (Less than 80% of sites checked): Intact LOW-RISK: LOW RISK INFORMATION PROVIDED: 1. Advised patient not to walk barefoot. 2. Explained the importance of daily foot checks for changes. 3. Stressed the importance of daily foot hygiene, including bathing and complete drying. Assess Statin Use - Lipids (CVD/DM): The patient is still taking the NON-VA statin medication as documented. Hemoglobin A1C: Order for HBA1C placed. Screen for Abd Aortic Aneurysm: The patient has had prior imaging of the aorta performed. Date: July 20, 2023 Comment: Vet not certain of date of U/S but knows it was done [place] No abdominal aortic aneurysm. /jayce/ SWATI PEREZ PA-C Signed: 10/22/2023 15:33 SWATI PEREZ [facility] Oct 22, 2023 02:12 PM [facility] EVALUATION NOTE: LOCAL TITLE: Preventive Health Annual Review STANDARD TITLE: PRIMARY CARE ANNUAL EVALUATION NOTE DATE OF NOTE: OCT 22, 2023@14:12 ENTRY DATE: OCT 22, 2023@14:12:39 AUTHOR: ELVIS ARIZMENDI EXP COSIGNER: URGENCY: STATUS: COMPLETED Suicide Screen: C-SSRS Screening [place]-Suicide Severity Rating Scale (C-SSRS Screener) 1. Over the past month, have you wished you were or wished you could go to sleep and not wake up? No 2. Over the past month, have you had any actual thoughts of killing yourself? No 3. Over the past month, have you been thinking about how you might do this? Response not required due to responses to other questions. 4. Over the past month, have you had these thoughts and had some intention of acting on them? Response not required due to responses to other questions. 5. Over the past month, have you started to work out or worked out the details of how to kill yourself? Response not required due to responses to other questions. 6. If yes, at any time in the past month did you intend to carry out this plan? Response not required due to responses to other questions. 7. In your lifetime, have you ever done anything, started to do anything, or prepared to do anything to end your life (for example, collected pills, obtained a gun, gave away valuables, went to the roof but didn't jump)? No 8. If YES, was this within the past 3 months? Response not required due to responses to other questions. Homelessness/Food Insecurity Screen: In the past 2 months, have you been living in stable housing that you own, rent, or stay in as part of a household? Yes - Living in stable housing. Are you worried or concerned that in the next 2 months you may NOT have stable housing that you own, rent, or stay in as part of a household? No - Not worried about housing near future The reports the following: Within the past 12 months, you worried whether your food would run out before you got money to buy more. Never true Within the past 12 months, the food you bought just didn't last and you didn't have money to get more. Never true Alcohol Use Screen (AUDIT-C): Alcohol Screen: SCREEN FOR ALCOHOL (AUDIT-C) An alcohol screening test (AUDIT-C) was negative (score=0). 1. How often did you have a drink containing alcohol in the past year? Consider a drink to be a 12 ounce can or bottle of regular beer, 8 ounces of malt liquor, a 5 ounce glass of table wine, or a 1.5 ounce shot of liquor (like scotch, gin, or vodka). Never 2. How many drinks containing alcohol did you have on a typical day when you were drinking in the past year? Response not required due to responses to other questions. 3. How often did you have six or more drinks on one occasion in the past year? Response not required due to responses to other questions. Sexual Orientation: The patient thinks of their sexual orientation as: Straight or Heterosexual Depression Screening: Perform PHQ-2 A PHQ-2 screen was performed. The score was 0 which is a negative screen for depression. Over the past two weeks, how often have you been bothered by the following problems? 1. Little interest or pleasure in doing things Not at all 2. Feeling down, depressed, or hopeless Not at all /jayce/ ELVIS ARIZMENDI Health Rating Officer Signed: 10/22/2023 14:14 ELVIS ARIZMENDI [facility]
--- OUTSIDE RECORDS SUMMARY | 2024-03-04 00:24 | XMS_ITS | Encounter Summary ---
Author Name [facility] [place] [facility] [place] Address [address] [place] [address] Care Team Providers Care Ground Transportation Operator Name Role Phone WARNER ORTIZ Primary Care [...] PLAN WEIDM SADIE HP Jul 20, 2009 [id number] SRINIVAS BATISTA PATIENT [employer] ([id number]) PRESCRIPT ION Jul 20, 2017 [id number] SRINIVAS BATISTAPema PATIENT MEDICARE (WNR) MEDICARE (M) PART B Apr 19, 2020 PART B [id number] LESTERSRINIVAS PATIENT MEDICARE (WNR) MEDICARE (M) PART A Oct 19, 2019 PART A [id number] SRINIVAS [place]IST[place] PATIENT RESTAT PRESCRIPT ZULMA DEWEY BLUE November 17, 2009 [id number] SRINIVAS [place]IST[place] PATIENT Selected Encounter This section includes the information on record at [place] for the Encounter. Date/Time Encounter Type Encounter Description Reason Pro vider Source Jul 20, 2023 12:00 AM Outpatient Encounter EVENT (HISTORICAL) IHE Encounter Template Text not used by [place] Plan of Treatment: Future Appointments (+ 6 months) and Future Tests (+/- 45 days) The Plan of Treatment section includes future care activities for the patient from all [place] treatmentfacilities. This section includes future appointments and future orders which are active, pending or scheduled. Future Appointments This section includes appointments that were scheduled to occur 6 months from the date of the Encounter, up to a maximum of 20 appointments. The data comes from all [place] treatment facilities. Appointment Date/Time Appointment Type Appointme nt Facility Name Oct 22, 2023 09:00 AM AMBULATORY - NONE [facility] Oct 22, 2023 02:00 PM AMBULATORY - NONE [facility] Dec 30, 2023 11:30 AM AMBULATORY - NONE [facility] Social History: Smoking Status (Most current) and Tobacco Use (All prior to encounter date) This section includes the most current, and the historical, smoking and tobacco- related health factors from the [place] facility where the Encounter took place. Current Smoking Status This section includes the most current smoking, or tobacco-related health factor, from the [place] facility where the Encounter took place. Date/Time Current Smoking Status Comment Yamilet mon Jan 26, 2003 10:05 AM QUIT TOBACCO USE > 7 YEARS AGO [facility] Tobacco Use History This section includes a history of the smoking, or tobacco-related health factors, that were collected on or before the date of the Encounter. The data comes from the [place] facility where the Encounter took place. Date/Time Smoking Status/Tobacco Use Comment Elan raimrez November 29, 2002 01:00 PM HISTORY OF SMOKING [facility] Advance Directives: All historical and current Section Date Range: From patient's date of to the date document was created. This section includes ALL of a patient's completed or amended VA Advance and Rescinded Directives. The entries below indicate that a directive exists for the patient, but an actual copy is not included with this document. The data comes from all [place] facilities. Date Advance Directives Provider Source November 23, 2017 ADVANCE DIRECTIVE JOI DEVRIES [facility]
--- OUTSIDE RECORDS SUMMARY | 2024-03-04 00:25 | XMS_ITS | Encounter Summary ---
Author Organization [facility] Address [address] [place] [address] Care Team Providers Care Concrete Rod Buster Name Role Phone Denise Hooker JENNIFER Primary Care Provider [phone] Reason for Visit * Reason Onset Date Comments Results 12/09/2022 Encounter Details Date Type Department Care Team ([facility] Contact Info) Description 12/09/2022 Telephone [facility] Gastroenterology - [facility] [address], [place] [id number] Kaye Kimbrough, JANNY [address] [place] [address] Results Social History Tobacco Use Types Packs/Day Years Used Date Smoking Tobacco: Former Cigarettes 1 07/1973 - 05/1994 Smokeless Tobacco: Never Alcohol Use Standard Drinks/Week Comments Yes 0 (1 standard drink = 0.6 oz pur e alcohol) rare PHQ-2 Answer Date Recorded PHQ-2 SUBTOTAL 0 03/18/2020 Interpersonal Safety Answer Date Record ed Physically Hurt Never 02/19/2020 Verbally Threaten Not on file 02/19/2020 Sex and Gender Information Value Date Recorded Sex Assigned at Not on file Gender Identity Male 08/25/2019 10:17 EST Sexual Orientation Not on file documented as of this encounter Functional Status Functional Status Response Date of Assess ment Are you deaf or do you have serious difficulty h earing? No 03/18/2020 Are you blind or do you have serious difficulty seeing, even when wearing glasses? No 03/18/2020 Do you have serious difficul ty walking or climbing stairs? (5 years old or older) No 03/18/2020 Do you have difficulty dress ing or bathing? (5 years old or older) No 03/18/2020 Because of a physical, menta l, or emotional condition, do you have difficulty doing errands alone such as visiting a doctor's office or shopping? (15 years old or older) No 03/18/2020 Cognitive Status Response Date of Assessm ent Because of a physical, menta l, or emotional condition, do you have serious difficulty concentrating, remembering, or making decisions? (5 years old or older) No 03/18/2020 documented as of this encounter Miscellaneous Notes * Telephone Encounter - Kaye Kimbrough RN - 12/09/2022 0956 EDT Patient verbalized understanding of Ramesh's review of his labs and elevated ALT and plan for fibroscan. No further questions. * Telephone Encounter - Kaye Kimbrough RN - 12/09/2022 0947 EDT ----- Message from Sanford Roberts sent at 12/08/2022 15:38 EDT ----- Regarding: RE: Fibroscan Nursing Team - please let me know once you've made contact with the patient to discuss the info below, and I will follow-up to schedule the Fibroscan. ----- Message ----- From: Kera Tatum PA-C Sent: 12/07/2022 19:28 EDT To: Sanford Roberts [facility] Nurse Pool Subject: Fibroscan Could you please let patient know I have reviewed his labs, and his ALT has come down a bit to 70. The rest of his labs look good, (with exception of elevated blood glucose- continue to work on managing DM with PCP) Based on his labs there is low risk of advanced fibrosis, but I would like to send him for repeat fibroscan to evaluate for advanced fibrosis of the liver, that was previously determined when he last had fibroscan. I have placed this order. If both of these noninvasive measures show low risk for advanced fibrosis, nothing else needs to bedone at this time and we can follow up in 6 months for repeat labs. However, if indeterminate, we might need to consider liver biopsy for definitive diagnosis so that further management can be determined which would include HCC surveillance. I would discuss this with patient if needed. Patient had previously followed with Dr. Mackey who had spoken to him about HCC surveillance. It is possible thathis liver condition has improved. Thanks! AF documented in this encounter Plan of Treatment Upcoming Encounters Date Type Department Care Team (Late st Contact Info) Description 08/08/2024 13:00 EST Office Visit [facility] Gastroenterology - [facility] [address], [place] [address] Kera Tatum PA-C [address] [place] [address], [address] [place] [phone] documented as of this encounter Visit Diagnoses Not on filedocumented in this encounter Care Teams Concrete Rod Buster Relationship Specialty Start Date End Date Denise Hooker APRN [address] [place] [address] PCP - General 09/13/18 documented as of this encounter
--- OUTSIDE RECORDS SUMMARY | 2024-03-04 00:25 | XMS_ITS | Encounter Summary ---
Author Organization [facility] [place] [address] Care Team Providers Care Interactive Graphic Designer Name Role Phone Denise Hooker APRN Primary Care Provider [phone] Reason for Visit * Reason Comments Skin Check Encounter Details Date Type Department Care Team (Late st Contact Info) Description 09/13/2013 9:45 AM EST Office Visit Dermatology at [address] [place] [phone] Edgar Osuna MD [address] [facility], [place] [address] Seborrheic keratosis, inflamed (Primary Dx) Social History Tobacco Use Types Packs/Day Years Used Date Smoking Tobacco: Unknown Sex and Gender Information Value Date Recorded Sex Assigned at Not on file Gender Identity Not on file Sexual Orientation Not on file documented as of this encounter Progress Notes * Edgar Osuna MD - 09/13/2013 10:02 AM EST Problem: Left lateral thigh lesion. Raul is a 57-year-old gentleman who is diabetic. He recently noted a soreness of the left lateral thigh and found an erythematous, inflammatory reaction surrounding a central keratotic lesion. He was seen by REZA Krishnamurthy, at the [facility] and given a course of cephalexin on September 01, 2013. This 10-day course has brought a resolution of the erythema at the affected site. However, the central hyperkeratotic lesion remains. The patient denies any past history of skin cancer or melanoma. Physical examination reveals a pleasant, 57-year-old gentleman who has a seborrheic keratosis on the left lateral thigh, a flesh-toned, hyperkeratotic, 1-cm, waxy, [id number] papule. Assessment and Plan: Seborrheic keratosis. a. [...] this encounter Plan of Treatment Not on file documented as of this encounter Visit Diagnoses Diagnosis Seborrheic keratosis, inflamed- Primary Inflamed seborrheic keratosis documented in this encounter Care Teams Interactive Graphic Designer Relationship Specialty Start Date End Date Denise Hooker, JENNIFER [address] [place] [address] PCP - General 09/05/13 documented as of this encounter
--- OUTSIDE RECORDS SUMMARY | 2024-03-04 00:25 | XMS_ITS | Encounter Summary ---
Author Organization [facility] Address [address] [place] [address] Care Team Providers Care Offset Second Press Operator Name Role Phone Denise Hooker JENNIFER Primary Care Provider [phone] Encounter Details Date Type Department Care Team ([facility] st Contact Info) Description 02/11/2024 14:30 EDT Phlebotomy Only [facility] ED Center 2 Phlebotomy [address] [place] [address] Production Support Developer, Acc Phlebotomy Other cirrhosis of liver (HCC-CMS) Social History Tobacco Use Types Packs/Day Years [...] No 03/18/2020 documented as of this encounter Plan of Treatment Upcoming Encounters Date Type Department Care Team (Late st Contact Info) Description 08/08/2024 13:00 EST Office Visit [facility] Gastroenterology - [address] [address] Kera Tatum PA-C [address] [place] [address], [facility], [address] [place] [address] documented as of this encounter Procedures Procedure Name Priority Date/Time Associated Diagnosis Comments TRANSFERRIN SATURATION Routine 15:02 EDT Other cirrhosis of liver (HCC-CMS) PROFILE IRON STUDIES (INCLUDES IRON, IBC, AND FERRITIN) Routine 02/11/2024 15:02 EDT Other cirrhosis of liver (HCC-CMS) PROTIME Routine 02/11/2024 15:02 EDT Other cirrhosis of liver (HCC-CMS) COMPLETE BLOOD COUNT Routine 02/11/2024 15:02 EDT Other cirrhosis of liver (HCC-CMS) FERRITIN Routine 02/11/2024 15:02 EDT Other cirrhosis of liver (HCC-CMS) COMPREHENSIVE METABOLIC PANEL (CMP) Routine 02/11/2024 15:02 EDT Other cirrhosis of liver (HCC-CMS) documented in this encounter Results * FERRITIN (02/11/2024 15:02 EDT) Ferritin 122 22 - 322 ng/mL 02/11/2024 18:01 EDT [facility] Blood VENOUS BLOOD / Unknown Venipuncture / Unknown 02/11/2024 15:02 EDT 02/11/2024 15:58 EDT Kera ALCARAZ-C CHEMISTRY & B LOOD GAS ORDERABLES Performing Organization Address [facility] Co de Phone Number [facility] [address], [place] [address] * TRANSFERRIN SATURATION (02/11/2024 15:02 EDT) Iron 108 49 - 181 ??g/dL 02/11/2024 16:59 EDT [facility] Iron Binding Capacity 398 240 - 450 ??g/dL 02/11/2024 16:59 EDT [facility] Transferrin Saturation 27 15 - 45 % 02/11/2024 16:59 EDT [facility] Blood VENOUS BLOOD / Unknown Venipuncture / Unknown 02/11/2024 15:02 EDT 02/11/2024 15:58 EDT Kera ALCARAZ-C CHEMISTRY & B LOOD GAS ORDERABLES Performing Organization Address [facility] Co de Phone Number [facility] [address] [place] [address] * PROTIME (02/11/2024 15:02 EDT) I.N.R. 1.1 0.9 - 1.1 Ratio 02/11/2024 16:15 EDT [facility] Pro Time 12.1 9.7 - 12.8 secs 02/11/2024 16:15 EDT [facility] Blood VENOUS BLOOD / Unknown Venipuncture / Unknown 02/11/2024 15:02 EDT 02/11/2024 15:48 EDT Narrative [facility] - 02/11/2024 16:15 EDT Moderate Intensity Coumadin INR = 2.0-3.0 Adjustments in anticoagulant therapy dose should be based on the INR and NOT on the Protime. Kera Tatum PA-C HEMATOLOGY & PF4 ORDERABLES [facility] [address] [place] [address] * (ABNORMAL) COMPREHENSIVE METABOLIC PANEL (CMP) (02/11/2024 15:02 EDT) Sodium 141 136 - 145 mmol/L 02/11/2024 16:49 [facility] Potassium 4.6 3.5 - 5.0 mmol/L 02/11/2024 16:49 [facility] Chloride 100 96 - 110 mmol/L 02/11/2024 16:49 [facility] CO2 Total 24 22 - 32 mmol/L 02/11/2024 16:49 [facility] Glucose 185(H) 70 - 99 mg/dl 02/11/2024 16:49 [facility] BUN 19 10 - 26 mg/dL 02/11/2024 16:49 [facility] Creatinine 0.98 0.66 - 1.25 mg/dL 02/11/2024 16:49 [facility] eGFR 83 >60 mL/min/1.7 3m2 02/11/2024 16:49 [facility] Total Protein 7.2 6.3 - 8.2 g/dL 02/11/2024 16:49 [facility] Albumin 4.6 3.4 - 4.9 g/dL 02/11/2024 16:49 [facility] Alkaline Phosphatase 103 38 - 126 U/L 02/11/2024 16:49 [facility] AST 29 15 - 46 U/L 02/11/2024 16:49 [facility] ALT 43 <50 U/L 02/11/2024 16:49 [facility] Bilirubin, Total 0.7 <1.4 mg/dL 02/11/20 16:49 EDT [facility] Calcium 9.5 8.5 - 10.5 mg/dL 02/11/2024 16:49 [facility] Albumin/Globulin Ratio 1.8 1.0 - 2.5 02/11/2024 16:49 T [facility] Anion Gap 17(H) 5 - 14 mmol/L 02/11/2024 16:49 T [facility] Blood VENOUS BLOOD / Unknown Venipuncture / Unknown 02/11/2024 15:02 EDT 02/11/2024 15:58 EDT Kera Tatum PA-C CHEMISTRY & B LOOD GAS ORDERABLES [facility] [address] [place] [id number] * COMPLETE BLOOD COUNT (02/11/2024 15:02 EDT) WBC 6.82 4.00 - 10.40 K/cmm 02/11/2024 16:23 [facility] RBC 5.31 4.36 - 5.78 M/cmm 02/11/2024 16:23 [facility] Hemoglobin 15.3 13.8 - 17.3 g/dL 02/11/2024 16:23 [facility] HCT 45.2 39.5 - 50.2 % 02/11/2024 16:23 [facility] MCV 85 81 - 95 fL 02/11/2024 16:23 [facility] MCH 28.8 27.6 - 33.0 pg 02/11/2024 16:23 [facility] MCHC 33.8 32.8 - 36.4 g/dL 02/11/2024 16:23 [facility] RDW-CV 12.8 <14.2 % 02/11/2024 16:23 [facility] RDW-SD 39.7 <46.0 fl 02/11/2024 16:23 EDT [facility] PLT 220 141 - 377 K/cmm 02/11/2024 16:23 EDT [facility] MPV 10.7 9.5 - 12.7 fL 02/11/2024 16:23 EDT [facility] Blood VENOUS BLOOD / Unknown Venipuncture / Unknown 02/11/2024 15:02 EDT 02/11/2024 15:57 EDT Kear Tatum PA-C HEMATOLOGY & PF4 ORDERABLES [facility] [address] [place] [address] documented in this encounter Visit Diagnoses Diagnosis Other cirrhosis of liver (HCC-CMS) documented in this encounter Care Teams Offset Second Press Operator Relationship Specialty Start Date End Date Denise Hooker APRN [address] [place], [place] [id number] PCP - General 09/13/18 documented as of this encounter
--- OUTSIDE RECORDS SUMMARY | 2024-03-04 00:25 | XMS_ITS | Referral Summary ---
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, [facility] Phlebotomy Other cirrhosis of liver (HCC-CMS) 02/11/2024 13:40 EDT Office Visit [facility] Gastroenterology [facility] [address], [place] [id number] Kera Tatum PA-C Other cirrhosis of liver (HCC-CMS) (Primary Dx) 01/05/2024 Telephone [facility] Cardiology - [facility] [address] [place], [place] [id number] Davian Almonte MD Follow-up 01/05/2024 Telephone [facility] Cardiology - [place] [address] [place] [address] Davian Almonte MD Appointment Related 12/15/2023 Telephone [facility] Gastroenterology [facility] [address], [place] [id number] Kera Tatum PA-C Coordination Of Care from Last 3 Months Allergies Active Allergy Reactions Criticality Noted Date Comments Isosorbide Mononitrate 03/18/2020 Severe headache Indoramin 05/19/2019 Headaches Medications Medication Sig Dispensed Refills Start Date End Date Status lisinopril (PRINIVIL, ZESTRIL) 5 mg tablet Take 1 Tablet by mouth daily. Active METOPROLOL SUCCINATE ORAL Take 150 mg by mouth daily. Takes 3-50 mg. Tablets daily Active nitroGLYCERIN (NITROSTAT) 0.[address] 1 Tablet under the tongue as needed for Chest Pain. Active amlodipine (NORVASC) 10 mg tablet Take 1 Tab by mouth daily. 30 Tab 11 09/10/2009 Active insulin glargine (LANTUS) 100 unit/mL injection Inject 30 Units into the skin 2 times daily. Active rosuvastatin (CRESTOR) 40 mg tablet Take 1 Tablet by mouth daily. Active ERGOCALCIFEROL, VITAMIN D2, (VITAMIN D ORAL) Take by mouth daily. Active aspirin chewable 81 mg tablet Take 1 Tab by mouth daily. 30 Tab 11 02/12/2016 Active sertraline (ZOLOFT) 50 mg tablet Take 50 mg by mouth daily. Active exenatide microspheres 2 mg/0.65 mL pen injector Inject 2 mg into the skin every 7 days. Active traZODone (DESYREL) 50 mg tablet Take 1 Tablet by mouth daily. Active metFORMIN (GLUCOPHAGE) 1,000 mg tablet Take 1,000 mg by mouth 2 times daily. Active dapagliflozin 5 mg tablet Take 5 mg by mouth daily. Active isosorbide mononitrate (IMDUR) 30 mg CR tablet Take 30 mg by mouth every morning. 15 mg, 1/2 tab Active HUMALOG MIX 75-25 KWIKPEN 100 unit/mL (75-25) injectable pen Inject 50 Units into the skin 2 times daily. 10/07/2022 Active ranolazine (RANEXA) 500 mg SR tablet Take 1 Tablet by mouth 2 times daily. 10/07/2022 Active multivit-min/folic/vit K/lycop (MEN'S 50 PLUS DAILY FORMULA ORAL) Take by mouth. A ctive NONFORMULARY THC gummy - 1/2 every night Active magnesium oxide (MAG-OX) 400 mg (241.3 mg magnesium) tablet Take 1 Tablet by mouth at bedtime. 09/01/2023 Active insulin glargine U-300 conc (TOUJEO MAX U-300 SOLOSTAR) 300 unit/mL (3 mL) subcutaneous pen Inject into the skin once daily. Active Active Problems Problem Noted Date Diagnosed Date Type 2 diabetes mellitus with vascular disease ( [facility]) 03/19/2020 NSVT (nonsustained ventricular tachycardia) ([facility]) 03/19/2020 Chest pain 12/03/2018 Depression 12/03/2018 Coronary atherosclerosis 09/07/2009 Overview: 09-10-09 LHC : FFR of LAD 0.69 ; PCI LAD MARY- prox, LAD MARY-mid, LAD BMS distal 09-07-09 LHC : PCI MARY X 3 RCA 09-07-09 LHC: LM nl; LAD 50% mid 60% distal; Cx 40% distal; RCA 90% distal 70% mid, EF 60% Hyperlipidemia with target LDL less than 70 08/20 Hypertensive disorder 09/07/2009 Diabetes mellitus ([facility]) 09/07/2009 Overview: Oral agent - metformin Resolved Problems Problem Noted Date Diagnosed Date Resolved Date NSTEMI (non-ST elevated myoc ardial infarction) ([facility]) 03/19/2020 03/22/2020 Social History Tobacco Use Types Packs/Day Years Used Date Smoking Tobacco: Former Cigarettes 1 07/1973 - 05/1994 Smokeless Tobacco: Never Tobacco Cessation:Counseling Given: Not Answered Alcohol Use Standard Drinks/Week Comments Yes 0 [...] 10:17 EST Sexual Orientation Not on file Last Filed Vital Signs Vital Sign Reading Time Taken Comments Blood Pressure 152/64 02/11/2024 1316 EDT Pulse 81 02/11/2024 1316 EDT Temperature 36.4 ??C (97.5 ??F) 03/22/2020 1258 EDT Respiratory Rate 18 03/22/2020 0922 EDT Oxygen Saturation 97% 10/15/2023 1441 EDT Inhaled Oxygen Concentration - - Weight 108.2 kg (238 lb 9.6 oz) 02/11/2024 1316 EDT Height 175.3 cm (5' 9) 10/15/2023 1450 EDT Body Mass Index 35.24 10/15/2023 1450 EDT Functional Status Functional Status Response Date of [...] (5 years old or older) No 03/18/2020 Plan of Treatment Upcoming Encounters Date Type Department Care Team (Late st Contact Info) Description 08/08/2024 13:00 EST Office Visit [facility] Gastroenterology - [address] [address] Kera Tatum PA-C [address] [place] [address], [address] [place] [phone] Procedures Procedure Name Priority Date/Time Associated Diagnosis Comments FERRITIN Routine 02/11/2024 15:02 EDT Other cirrhosis of liver (HCC-CMS) TRANSFERRIN SATURATION Routine 15:02 EDT Other cirrhosis of liver (HCC-CMS) PROFILE IRON STUDIES (INCLUDES IRON, IBC, AND FERRITIN) Routine 02/11/2024 15:02 EDT Other cirrhosis of liver (HCC-CMS) PROTIME Routine 02/11/2024 15:02 EDT Other cirrhosis of liver (HCC-CMS) COMPREHENSIVE METABOLIC PANEL (CMP) Routine 02/11/2024 15:02 EDT Other cirrhosis of liver (HCC-CMS) COMPLETE BLOOD COUNT Routine 02/11/2024 15:02 EDT Other cirrhosis of liver (HCC-CMS) HEPATITIS C AB W REFLEX TO HCV RNA BY PCR Routine 12/01/2022 14:59 EDT Elevated liver enzymes HEMOGLOBIN A1C Add-On 03/19/2020 1:51 EDT LIPID PROFILE (INCLUDES CHOLESTEROL, TRIGLYCERIDES, HDL, LDL) Routine 02/11/2016 5:33 EDT from Last 3 Months or Most Recently Relevant to Health Maintenance Results * TRANSFERRIN SATURATION (02/11/2024 15:02 EDT) Iron 108 49 - 181 ??g/dL 02/11/2024 16:59 EDT [facility] Iron Binding Capacity 398 240 - 450 ??g/dL 02/11/2024 16:59 EDT [facility] Transferrin Saturation 27 15 - 45 % 02/11/2024 16:59 EDT [facility] Blood VENOUS BLOOD / Unknown Venipuncture / Unknown 02/11/2024 15:02 EDT 02/11/2024 15:58 EDT Kera Tatum PA-C CHEMISTRY & B LOOD GAS ORDERABLES [facility] [address] [place] [address] * PROTIME (02/11/2024 15:02 EDT) I.N.R. 1.1 0.9 - 1.1 Ratio 02/11/2024 16:15 EDT [facility] Pro Time 12.1 9.7 - 12.8 secs 02/11/2024 16:15 EDT [facility] Blood VENOUS BLOOD / Unknown Venipuncture / Unknown 02/11/2024 15:02 EDT 02/11/2024 15:48 EDT Narrative [facility] - 02/11/2024 16:15 EDT Moderate Intensity Coumadin INR = 2.0-3.0 Adjustments in anticoagulant therapy dose should be based on the INR and NOT on the Protime. Kera Tatum PA-C HEMATOLOGY & PF4 ORDERABLES [facility] [address] [place] [address] * COMPLETE BLOOD COUNT (02/11/2024 15:02 EDT) WBC 6.82 4.00 - 10.40 K/cmm 02/11/2024 16:23 [facility] RBC 5.31 4.36 - 5.78 M/cmm 02/11/2024 16:23 [facility] Hemoglobin 15.3 13.8 - 17.3 g/dL 02/11/2024 16:23 [facility] HCT 45.2 39.5 - 50.2 % 02/11/2024 16:23 [facility] MCV 85 81 - 95 fL 02/11/2024 16:23 [facility] MCH 28.8 27.6 - 33.0 pg 02/11/2024 16:23 [facility] MCHC 33.8 32.8 - 36.4 g/dL 02/11/2024 16:23 [facility] RDW-CV 12.8 <14.2 % 02/11/2024 16:23 [facility] RDW-SD 39.7 <46.0 fl 02/11/2024 16:23 [facility] PLT 220 141 - 377 K/cmm 02/11/2024 16:23 [facility] MPV 10.7 9.5 - 12.7 fL 02/11/2024 16:23 EDT [facility] Blood VENOUS BLOOD / Unknown Venipuncture / Unknown 02/11/2024 15:02 EDT 02/11/2024 15:57 EDT Kera ALCARAZ-Pradeep HEMATOLOGY & PF4 ORDERABLES Performing Organization Address [facility]/ZIP Co de Phone Number [facility] [address] [place] [address] * FERRITIN (02/11/2024 15:02 EDT) Ferritin 122 22 - 322 ng/mL 02/11/2024 18:01 EDT [facility] Blood VENOUS BLOOD / Unknown Venipuncture / Unknown 02/11/2024 15:02 EDT 02/11/2024 15:58 EDT Kera Tatum PA-C CHEMISTRY & B LOOD GAS ORDERABLES Performing Organization Address City/[facility]/ZIP Co de Phone Number [facility] [address] [place] [address] * (ABNORMAL) COMPREHENSIVE METABOLIC PANEL (CMP) (02/11/2024 15:02 EDT) Sodium 141 136 - 145 mmol/L 02/11/2024 16:49 EDT [facility] Potassium 4.6 3.5 - 5.0 mmol/L 02/11/2024 16:49 EDT [facility] Chloride 100 96 - 110 mmol/L 02/11/2024 16:49 T [facility] CO2 Total 24 22 - 32 mmol/L 02/11/2024 16:49 EDT [facility] Glucose 185(H) 70 - 99 mg/dl 02/11/2024 16:49 EDT [facility] BUN 19 10 - 26 mg/dL 02/11/2024 16:49 EDT [facility] Creatinine 0.98 0.66 - 1.25 mg/dL 02/11/2024 16:49 [facility] eGFR 83 >60 mL/min/1.7 3m2 02/11/2024 16:49 [facility] Total Protein 7.2 6.3 - 8.2 g/dL 02/11/2024 16:49 [facility] Albumin 4.6 3.4 - 4.9 g/dL 02/11/2024 16:49 [facility] Alkaline Phosphatase 103 38 - 126 U/L 02/11/2024 16:49 [facility] AST 29 15 - 46 U/L 02/11/2024 16:49 [facility] ALT 43 <50 U/L 02/11/2024 16:49 [facility] Bilirubin, Total 0.7 <1.4 mg/dL 02/11/20 16:49 [facility] Calcium 9.5 8.5 - 10.5 mg/dL 02/11/2024 16:49 [facility] Albumin/Globulin Ratio 1.8 1.0 - 2.5 02/11/2024 16:49 [facility] Anion Gap 17(H) 5 - 14 mmol/L 02/11/2024 16:49 [facility] Blood VENOUS BLOOD / Unknown Venipuncture / Unknown 02/11/2024 15:02 EDT 02/11/2024 15:58 EDT Kera Tatum PA-C CHEMISTRY & B LOOD GAS ORDERABLES [facility] [address] [place] [address] * HEPATITIS C AB W REFLEX TO HCV RNA BY PCR (12/01/2022 14:59 EDT) Hep C Antibody Negative Negative 12/02/2022 10:09 EDT [facility] Blood VENOUS BLOOD / Unknown Venipuncture / Unknown 12/01/2022 14:59 EDT 12/01/2022 15:31 EDT Kera Tatum PA-C CHEMISTRY & B LOOD GAS ORDERABLES Performing Organization Address [facility] Co de Phone Number [facility] [address] [place] [address] * (ABNORMAL) HEMOGLOBIN A1C (03/19/2020 1:51 EDT) Hemoglobin A1c 7.4(H) <5.7 % 03/19/2020 8:30 EDT [facility] Comment: Glycemic Status References: Normal: ??<5.7% Pre-Diabetes: ??5.7% - 6.4% Diagnostic of Diabetes: ??> or = 6.5% (if confirmed) Goals for glycemic control in diabetics (ADA 2017): <7.0% target for non adults with diabetes. <7.5% target for children and adolescents with Type I Diabetes. More or less stringent targets may be appropriate for individual patients. Est Avg Glucose 166 mg/dL 0 8:30 EDT [facility] Comment:The eAG represents t he A1c result expressed as average glucose in mg/dL. Blood VENOUS BLOOD / Unknown Venipuncture / Unknown 03/19/2020 1:51 EDT 03/19/2020 1:55 EDT Joesph Wesley MD CHEMISTRY & BLOOD GA S ORDERABLES Performing Organization Address [facility]/ZIP Co de Phone Number [facility] [address] [place] [address] * LIPID PROFILE (INCLUDES CHOLESTEROL, TRIGLYCERIDES, HDL, LDL) (02/11/2016 5:33 EDT) Cholesterol 137 mg/dl 02/11/2016 6:18 EDT [facility] Comment: Desirable:<200 Borderline High:200-239 High:>fr=695 Triglycerides 187 mg/dl 02/11/2016 6:18 EDT [facility] Comment: Normal:<150 Borderline High:150-199 High:200-499 Very High:>ja=073 HDL 40 mg/dl 02/11/2016 6:18 EDT [facility] Comment: Low:<40 Normal:40-60 Desirable: >60 LDL, Calculated 60 mg/dl 6 6:18 EDT [facility] Comment: Optimal:<100 Near Optimal:100-129 Borderline High:130-159 High:160-189 Very High:>jl=057 Chol/HDL Ratio 3.4 02/11/2016 6:18 T [facility] Fasting? Unknown 02/11/2016 5:45 EDT [facility] Non HDL Cholesterol 97 mg/dl 02/11/2016 6:18 EDT [facility] Comment: Desirable:<130 Borderline:130-159 High: 160-189 Very High: >mw=163 Blood specimen (specimen) BLOOD SPECIMEN / Unknown 02/11/2016 5:33 EDT 02/11/2016 5:45 EDT Varun Stockton MD CHEMISTRY & BLO OD GAS ORDERABLES [facility] [address] [place] [address] from Last 3 Months or Most Recently Relevant to Health Maintenance Raul Trujillo Personal/Family Self 1955 [address] [facility] [address] [place] [id number] Raul Trujillo Personal/Family Self 1955 [address] [facility] [address] [place] [id number] Raul Trujillo Personal/Family Self [address] [address] Raul Trujillo Personal/Family Self [address] [address] Advance Directives For more information, please contact: [phone] Documents on File Type Date Recorded 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 Patient * Full Code Date Activated Date Inactivated Comments 12/02/2018 17:50 12/03/2018 20:43 Question Answer Comments Reason for decision includes: Full code consistent with overall plan of care Who participated in the discussion? Patient * Full Code Date Activated Date Inactivated Comments 02/10/2016 23:20 02/12/2016 16:50 Question Answer Comments Reason for decision includes: Full code consistent with overall plan of care Who participated in the discussion? Not Discusse d * Full Code Date Activated Date Inactivated Comments 09/09/2009 18:16 09/11/2009 14:55 * Full Code Date Activated Date Inactivated Comments 09/07/2009 12:27 09/08/2009 15:06 Care Teams Attendance Clerk Relationship Specialty Start Date End Date Denise Hooker APRN [address] [place] [address] PCP - General 09/13/18
--- OUTSIDE RECORDS SUMMARY | 2024-03-04 00:25 | XMS_ITS | Encounter Summary ---
Author Organization [facility] Address [facility] [place] [address] Care Team Providers Care Sheet Ironworker Name Role Phone Denise Hooker APRN Primary Care Provider [phone] Encounter Details Date Type Department Care Team (Late st Contact Info) Description 02/26/2023 Telephone Cardiology at [address] [phone] [facility] [place] [address] Social History Tobacco Use Types Packs/Day Years Used Date Smoking Tobacco: Unknown Sex and Gender Information Value Date Recorded Sex Assigned at Not on file Gender Identity Not on file Sexual Orientation Not on file documented as of this encounter Plan of Treatment Not on file documented as of this encounter Visit Diagnoses Not on filedocumented in this encounter Care Teams Sheet Ironworker Relationship Specialty Start Date End Date Denise Hooker APRN [address] [place] [address] PCP - General 09/05/13 documented as of this encounter
--- OUTSIDE RECORDS SUMMARY | 2024-03-04 00:25 | XMS_ITS | Encounter Summary ---
Author Organization [place] [address] Care Team Providers Care Sound Effects Supervisor Name Role Phone Davian Calabrese MD Primary Care Provider [phone] Reason for Visit * Reason Onset Date Comments Advice Only 08/18/2012 Encounter Details Date Type Department Care Team (Late st Contact Info) Description 08/18/2012 Telephone Cardiology at [address] [phone] Opal Cardoza, cissp Only Social History Tobacco Use Types Packs/Day Years Used Date Smoking Tobacco: Never Assessed Sex and Gender Information Value Date Recorded Sex Assigned at Not on file Gender Identity Not on file Sexual Orientation Not on file documented as of this encounter Miscellaneous Notes * Telephone Encounter - Opal Cardoza RN - 08/18/2012 9:02 AM EST Received call from patient. He had 2 stents placed in 2003 and he is having a MRI today at 12:30 pmat an outside facility. He needs to know if his stents are compatible with the MRI. Spoke with Darlin, in MRI-pt's stents are Multilink stents(ULTRA RX) and are both compatible with MRI. Pt informed and verbalized understanding. documented in this encounter Plan of Treatment Not on file documented as of this encounter Visit Diagnoses Not on filedocumented in this encounter Care Teams Sound Effects Supervisor Relationship Specialty Start Date End Date Davian Calabrese MD [facility] [address] [place] [address] PCP - General 06/11/10 09/04/13 documented as of this encounter
--- OUTSIDE RECORDS SUMMARY | 2024-03-04 00:25 | XMS_ITS | Encounter Summary ---
Author Organization [facility] Address [address] [place] [address] Care Team Providers Care Knifer Up Name Role Phone Lilia Hookerhrcharu Easton JENNIFER Primary Care Provider [phone] Reason for Visit * Reason Comments Coronary Artery Disease Encounter Details Date Type Department Care Team ([facility] st Contact Info) Description 10/15/2023 15:00 EDT Office Visit [facility] Cardiology - [address] [place] [address] Davian Almonte MD [address], [place] [id number] Chronic stable angina (Primary Dx); Coronary artery disease involving paimiut heart with angina pectoris, unspecified vessel or lesion type ([facility]) Social History Tobacco Use Types Packs/Day Years [...] Sign Reading Time Taken Comments Blood Pressure 132/60 10/15/2023 1441 EDT Pulse 60 10/15/2023 1441 EDT Temperature - - Respiratory Rate - - Oxygen Saturation 97% 10/15/2023 1441 EDT Inhaled Oxygen Concentration - - Weight 105.1 kg (231 lb 12.8 oz) 10/15/2023 1441 EDT Height - - Body Mass Index 34.23 03/25/2023 1412 EDT documented in this encounter Functional Status [...] No 03/18/2020 documented as of this encounter Progress Notes * Davian Almonte MD - 10/15/2023 1500 EDT CARDIOLOGY PCP: Denise Hooker HPI: Raul Trujillo is a 67 y.o. male with a past medical history of CAD (1st [place] 1992 DESx2'04, x3 RCA '10, x3 LAD '10, x1 '16), Hypertension, hyperlipidemia, DEEPALI, diabetes, depression, htud 60py, NAFLD, here today to follow up after establishing care 03/24/23. A day after our visit, underwent fibroscan with GI and was diagnosed with NAFLD/Cirrhosis. He had reported one episode of chest pain that resolved with SLNTG. He had a newly discovered murmur at thattime. He was sent for echo, which is being performed today. His last echo in 2019 had preserved EF and no WMA. (On my read of today's echo- read for EF and WMAs- there is no abnormality in WM or in EF. He has uniform wall motion with vigorous EF. I hope to obtain an official read before our appointment. Repeat lipids were not yet collected. He reports to me that he has been feeling well. He is very active- walking 2 miles most days at a good clip and doing yard work much of the time. He last had a adarsh of CP in 04/11 and now reports having another episode 10/12/23. He has had times in between where he has exerted himself more withoutchest pain. He also inquires about his new murmur. PMH PSH Past Medical History: Diagnosis Date CAD (coronary artery disease) 09-10-09 PCI LAD prox MARY, LAD mid MARY, LAD distal BMS; 09-07-09 PCI MARY X 3 RCA; 2003 stents X2 Diabetes mellitus ([facility]) oral agents Diverticulitis Hyperlipidemia Hypertension [place] (myocardial infarction) ([facility]) 1992, 2003 Recurrent infections rt foot 5th toe Past Surgical History: Procedure Laterality Date CARPAL TUNNEL RELEASE bilateral ROTATOR CUFF REPAIR right, fall 2014 TOE AMPUTATION right 5th UMBILICAL HERNIA REPAIR Jun, 2009 Social History Social History Tobacco Use Smoking status: Former Current packs/day: 0.00 Types: Cigarettes Start date: 05/1974 Quit date: 05/1994 Years since quittin.4 Smokeless tobacco: Never Substance Use Topics Alcohol use: Yes Comment: rare Drug use: No Family History Family History Problem Relation Age of Onset Diabetes Brother Heart Disease Brother Heart Disease Father at age 61 Medications Current Outpatient Medications on File Prior to Visit Medication Sig Dispense Refill amlodipine (NORVASC) 10 mg tablet Take 1 Tab by mouth daily. 30 Tab 11 aspirin chewable 81 mg tablet Take 1 Tab by mouth daily. 30 Tab 11 dapagliflozin 5 mg tablet Take 5 mg by mouth daily. ERGOCALCIFEROL, VITAMIN D2, (VITAMIN D ORAL) Take by mouth daily. (Patient not taking: Reported on 10/15/2023) exenatide microspheres 2 mg/0.65 mL pen injector Inject 2 mg into the skin every 7 days. (Patient not taking: Reported on 12/01/2022) HUMALOG MIX 75-25 KWIKPEN 100 unit/mL (75-25) injectable pen Inject 50 Units into the skin 2 times daily. insulin glargine (LANTUS) 100 unit/mL injection Inject 30 Units into the skin 2 times daily. (Patient not taking: Reported on 12/01/2022) isosorbide mononitrate (IMDUR) 30 mg CR tablet Take 30 mg by mouth every morning. 15 mg, 1/2 tab (Patient not taking: Reported on 12/01/2022) lisinopril (PRINIVIL, ZESTRIL) 5 mg tablet Take 1 Tablet by mouth daily. magnesium oxide (MAG-OX) 400 mg (241.3 mg magnesium) tablet Take 1 Tablet by mouth at bedtime. metFORMIN (GLUCOPHAGE) 1,000 mg tablet Take 1,000 mg by mouth 2 times daily. (Patient not taking: Reported on 12/01/2022) METOPROLOL SUCCINATE ORAL Take 150 mg by mouth daily. Takes 3-50 mg. Tablets daily multivit-min/folic/vit K/lycop (MEN'S 50 PLUS DAILY FORMULA ORAL) Take by mouth. nitroGLYCERIN (NITROSTAT) 0.[address] 1 Tablet under the tongue as needed for Chest Pain. NONFORMULARY THC gummy - 1/2 every night (Patient not taking: Reported on 10/15/2023) ranolazine (RANEXA) 500 mg SR tablet Take 1 Tablet by mouth 2 times daily. rosuvastatin (CRESTOR) 40 mg tablet Take 1 Tablet by mouth daily. sertraline (ZOLOFT) 50 mg tablet Take 50 mg by mouth daily. (Patient not taking: Reported on 12/01/2022) traZODone (DESYREL) 50 mg tablet Take 1 Tablet by mouth daily. No current facility-administered medications on file prior to visit. Allergies Allergies Allergen Reactions Imdur [Isosorbide Mononitrate] Severe headache Indoramin Headaches ROS: Per HPI Physical Exam: VS: BP 132/60 (BP Cuff Location: Right arm, BP Patient Position: Sitting, BP Cuff Sizes: Adult, large) Pulse 60 Wt (!) 105.1 kg (231 lb 12.8 oz) SpO2 97% BMI 34.23 kg/m?? GEN: Well-appearing, calm, cooperative in no acute distress. Appears stated age. Resp: No increased work of breathing or use of accessory muscles. Lung clear to auscultation bilaterally without crackles or wheezes. CV: Normal rate, regular rhythm. Normal S1/S2. 4/6 SLADE heard best over RUSB. S2 clearly present, early peaking. Abd: Soft, non-distended, non-tender to palpation Ext: Warm and well-perfused distally, no clubbing or cyanosis. Neuro: Alert and oriented x3, moving all four extremities against gravity Skin: Warm, dry, no diaphoresis or rash on exposed skin. Data: TTE today Personal preliminary read: -EF 60-65%, no rWMAs -AV sclerosis without measured stenosis -No MR, no TR, no PV pathology -IVC collapsible and <2.1cm Addendum/Final Read: Left Ventricle The left ventricular cavity was normal in size. Left ventricular systolic function was normal with an ejection fraction of 60-65%. Left ventricular diastolic function cannot be determined based on the findings of the study. Left ventricular wall thickness was at the upper limits of normal. Although no diagnostic regional wall motion abnormality was identified, this possibility cannot be completely excluded on the basis of this study. Right Ventricle The right ventricular cavity was normal in size. Right ventricular systolic function was normal. Left Atrium The left atrium was normal in size. Right Atrium The right atrium was normal in size. Aortic Valve The aortic valve structure was trileaflet. There was no aortic valve stenosis. There was no significant aortic valve regurgitation. Mitral Valve Mitral valve structure was normal. There was trace mitral regurgitation. There was no significant mitral valve stenosis. Tricuspid Valve Tricuspid valve structure was normal. There was no significant tricuspid valve regurgitation. There was no tricuspid valve stenosis. Pulmonic Valve The pulmonic valve was not well visualized. There was no significant pulmonic valve regurgitation. There was no pulmonic valve stenosis. Pulmonic Artery Unable to assess PA pressure, due to suboptimal tricuspid regurgitation envelope. Ascending Aorta The aorta was not well visualized. Pericardium There was no pericardial effusion. IVC/SVC The inferior vena cava was normal in size. The inferior vena cava demonstrated a diameter of <=21 mm and collapses >50%; therefore, the right atrial pressure is estimated at 0-5 mmHg. Assessment/Plan: Mr. Trujillo continues to have occasional, unpredictable episodes of short lived chest pain/pressure 1on a hot day, 1x when moving heavy items while doing yardwork. He has an extensive CAD history withmany interventions and is on a considerable burden of antianginal medications. I believe he is experiencing chronic angina that may not necessarily represent new denovo lesions or in-stent stenoses. His new murmur likely represents aortic sclerosis without any significant stenosis. Chronic Angina CAD (1st [place] 1992 DESx2'04, x3 RCA '10, x3 LAD '10, x1 '16) Extensive History of Revascularization w/ Dr. Galloway HTN HLD -Amlodipine 10 -ASA -IMDUR 30 -Lisinopril 5 -MTS 150 -Ranexa 500 bid -Rosuva 40 Follow up in: 1yr Case discussed with Dr. Dunn. Davian Almonte MD [employer] * Birgit Dunn MD - 10/15/2023 1500 EDT Attending Attestation: I discussed this patient with the fellow and agree with the findings and plan as outlined. Birgit Dunn MD documented in this encounter Plan of Treatment Upcoming Encounters Date Type Department Care Team (Late st Contact Info) Description 08/08/2024 13:00 EST Office Visit [facility] Gastroenterology - [address] [address] Kera Tatum PA-C [address] [facility], [facility], [address] [place] [address] documented as of this encounter Visit Diagnoses Diagnosis Chronic stable angina (HCC-CMS)- Primary Coronary artery disease involving paimiut heart with angina pectoris, unspecified vessel or lesion type (HCC-CMS) documented in this encounter Historical Medications * This list may reflect changes made after this encounter. Medication Sig Dispensed Refills Start Date End Date magnesium oxide (MAG-OX) 400 mg (241.3 mg magnesium) tablet Take 1 Tablet by mouth at bedtime. 09/01/2023 added in this encounter Care Teams Knifer Up Relationship Specialty Start Date End Date Denise Hooker APRN [address] [place] [address] PCP - General 09/13/18 documented as of this encounter
--- OUTSIDE RECORDS SUMMARY | 2024-03-04 00:25 | XMS_ITS | Clinical Summary ---
Author Organization [facility] Address [facility] [place] [address] Care Team Providers Care Bead Wrapper Name Role Phone MorroDenise Jemma RODRIGUEZ Primary Care Provider [phone] Allergies Active Allergy Reactions Criticality Noted Date Comments Isosorbide 09/13/2013 Medications Medication Sig Dispensed Refills Start Date End Date Status amitriptyline (ELAVIL) 10 mg tablet 11/21/2003 Active aspirin 325 mg tablet 11/21/2003 Active simvastatin (ZOCOR) 80 mg tablet 11/21/2003 Active metoprolol succinate (TOPROL XL) 100 mg XL tablet 150mg, PO, QD 11/21/2003 Active lisinopril (PRINIVIL;ZESTRIL) 5 mg tablet 11/21/2003 Active nitroGLYcerin (NITROSTAT) 0.4 mg SL tablet 11/21/2003 Active clopidogrel (PLAVIX) 75 mg tablet 11/21/2003 Active Vitamin E 400 unit Tab 11/21/2003 Active amlodipine (NORVASC) 2.5 mg tablet 2.5mg, PO, QD 11/21/2003 Active colestipol (COLESTID) 1 gram tablet 11/21/2003 Active metFORMIN (GLUCOPHAGE) 500 mg tablet Take 500 mg by mouth 2 times daily (with meals). Active insulin glargine (LANTUS) vial injection Inject subcutaneously nightly. Active Active Problems Problem Noted Date Diagnosed Date Seborrheic keratosis, inflamed 09/13/2013 Social History Tobacco Use Types Packs/Day Years Used Date Smoking Tobacco: Unknown Sex and Gender Information Value Date Recorded Sex Assigned at Not on file Gender Identity Not on file Sexual Orientation Not on file Plan of Treatment Health Maintenance Due Date Last Done Comments CT Colonography 1954 Colonoscopy 1954 Colorectal Cancer Screening 1954 FIT DNA 1954 FIT 1954 Sigmoidoscopy (10 year) with FIT yearly 1954 Sigmoidoscopy 1954 Hepatitis C Screening 1972 Tdap adult 1973 Tetanus vaccine 1973 Zoster vaccine (1 of 2) 2004 Advance Directive 2009 Pneumoccocal Vaccine: 65+ (1 of 1 - PCV) 11/15/2019 Covid-19 Vaccine (1 - 2022-24 season) 2023 Influenza (Flu) vaccine (1 o f 1 - Influenza standard series) 03/20/2024 Care Teams Bead Wrapper Relationship Specialty Start Date End Date Denise Hooker APRN [address] [place] [address] PCP - General 09/05/13
--- OUTSIDE RECORDS SUMMARY | 2024-03-04 00:25 | XMS_ITS | Encounter Summary ---
Author Name [facility] [place] [facility] [place] [facility] [place] Address [address] [place] [address] Care Team Providers Care Musician Instrumental Name Role Phone WARNER ORTIZ Primary Care [...] PLAN WEIDM SADIE HP Jul 20, 2009 [id number] SRINIVAS BATISTA PATIENT [employer] S[employer] ([id number]) PRESCRIPT ION Jul 20, 2017 [id number] SRINIVAS BATISTA PATIENT MEDICARE (WNR) MEDICARE (M) PART B Apr 19, 2020 PART B [id number] [phone] MATTE,SRINIVAS RGE PATIENT MEDICARE (WNR) MEDICARE (M) PART A Oct 19, 2019 PART A [id number] [phone] SRINIVAS BATISTA PATIENT RESTAT PRESCRIPT ION MACO BLUE November 17, 2009 [id number] SRINIVAS BATISTA PATIENT Selected Encounter This section includes the information on record at [place] for the Encounter. Date/Time Encounter Type Encounter Description Reason Provider Source Dec 30, 2023 11:30 AM OFFICE O/P EST LOW 20 MIN PRIMARY CARE/MEDICINE ICD-10-CM D48.5 Neoplasm of uncertain behavior of skin SWATI PEREZ [place] Encounter Template Text not used by [place] Assessments - Encounter Diagnoses This section includes the primary and secondary diagnoses documented for the Encounter. Date/Time Primary/Secondary Diagnosis Diagnosis Name Provider Source Dec 30, 2023 12:23 PM PRIMARY Neoplasm of uncertain behavior of skin SWATI PEREZ [facility] Plan of Treatment: Future Appointments (+ 6 months) and Future Tests (+/- 45 days) The Plan of Treatment section includes future care activities for the patient from all [place] treatmentfacilities. This section includes future appointments and future orders which are active, pending or scheduled. Future Appointments This section includes appointments that were scheduled to occur 6 months from the date of the Encounter, up to a maximum of 20 appointments. The data comes from all [place] treatment facilities. Appointment Date/Time Appointment Type Appointme nt Facility Name Mar 02, 2024 08:20 AM AMBULATORY - NONE [facility] Mar 15, 2024 04:00 PM AMBULATORY - REHAB MEDICIN E [facility] Mar 23, 2024 11:30 AM AMBULATORY - SURGERY [facility] Social History: Smoking Status (Most current) and Tobacco Use (All prior to encounter date) This section includes the most current, and the historical, smoking and tobacco- related health factors from the [place] facility where the Encounter took place. Current Smoking Status This section includes the most current smoking, or tobacco-related health factor, from the [place] facility where the Encounter took place. Date/Time Current Smoking Status Elan mon Oct 22, 2023 02:00 PM VA-TOBACCO FORMER USER [facility] Tobacco Use History This section includes a history of the smoking, or tobacco-related health factors, that were collected on or before the date of the Encounter. The data comes from the [place] facility where the Encounter took place. Date/Time Smoking Status/Tobac co Use Comment Facility Oct 22, 2023 02:00 PM VA-TOBACCO QUIT 15 YRS OR MORE [facility] Sep 17, 2022 03:00 PM VA-TOBACCO FORMER USER [facility] Sep 17, 2022 03:00 PM VA-TOBACCO QUIT 15 YRS OR MORE [facility] Mar 14, 2020 09:00 AM VA-TOBACCO FORMER USER [facility] Mar 14, 2020 09:00 AM VA-TOBACCO QUIT 15 YRS OR MORE [facility] Oct 14, 2016 03:02 PM QUIT TOBACCO USE > 7 YEARS AGO quit about 24 years ago [facility] Oct 16, 2015 08:12 AM QUIT TOBACCO USE > 7 YEARS AGO quit approximately 23 years ago [facility] Oct 14, 2004 09:08 AM HISTORY OF SMOKING 12 yrs ago [facility] Advance Directives: All historical and current Section Date Range: From patient's date of to the date document was created. This section includes ALL of a patient's completed or amended [place] Advance and Rescinded Directives. The entries below indicate that a directive exists for the patient, but an actual copy is not included with this document. The data comes from all [place] facilities. Date Advance Directives Provider Source November 23, 2017 ADVANCE DIRECTIVE JOI DEVRIES [facility] Encounter Notes: All associated encounter notes This section contains the clinical notes associated to the Encounter. Date/Time Encounter Note(s) Provider Source Dec 30, 2023 11:44 AM PRIMARY CARE URGEN T CARE NOTE: LOCAL TITLE: Acute Primary Care Note STANDARD TITLE: PRIMARY CARE URGENT CARE NOTE DATE OF NOTE: DEC 30, 2023@11:44 ENTRY DATE: DEC 30, 2023@11:44:12 AUTHOR: SWATI PEREZ EXP COSIGNER: URGENCY: STATUS: COMPLETED PROBLEM LIST Code Description H90.5 Bilateral hearing loss ([facility] [id number]) L60.0 Ingrowing toenail ([facility] [id number]) R01.1 Heart murmur ([facility] [id number]) M54.12 Cervical radiculopathy ([facility] [id number]) K76.0 NAFL - non-alcoholic fatty liver ([facility] [id number]) K52.9 Chronic diarrhea ([facility] [id number]) K58.0 Irritable bowel syndrome with diarrhea ([facility] [id number]) E11.9 Diabetes mellitus type 2 without retinopathy ([facility] [id number]) 354.0 Carpal Tunnel Syndrome (ICD-9-CM 354.0) 780.52 Insomnia (ICD-9-CM 780.52) 414.00 Cad (ICD-9-CM 414.00) 278.00 Obesity (ICD-9-CM 278.00) I10. Hypertension ([facility] [id number]) V65.9 Health Maintenance (ICD-9-CM V65.9) 412. Old Myocardial Infarction (ICD-9-CM 412.) 272.0 High Cholesterol (ICD-9-CM 272.0) Medication list reviewed with patient: Yes Is the patient taking all prescribed medications: Yes Patient has all prescribed medications: Yes Medications the patient is taking that are not on the medication list: None Any adverse side effects from medications: None ALLERGIES: Patient has answered NKA IMMUNIZATIONS: Recorded Td/Tdap Vaccinations Information: Reminder Term: [place]-TETANUS/DIPHTHERIA IMMUNIZATION Immunization: TDAP Immunization: TD(ADULT) UNSPECIFIED FORMULATION 05/20/1999 08/28/1998 No INFLUENZA Immunizations on file within 1Y. Recorded Pneumococcal Vaccinations Information: Reminder Term: [place]-PNEUM PPSV23 IMMUNIZATION Immunization: PNEUMOCOCCAL, UNSPECIFIED FORMULATION 07/06/2003@15:00 Comments: Site:Left Deltoid The most recent entry of PPSV23 was given too close to the prior dose to be counted as a valid repeat dose. Refusals Reminder Term: [place]-PNEUM PCV IMMUNIZATION (ALL CONJUGATE) 12/30/2023@11:30 Reason: PATIENT DECISION, expires 01/29/2024. Patient has refused all vaccines in the group. 68yo, WHITE, MALE Chief complaint and HPI: skin lesions Medical hx significant for CAD, Hx SC and angioplasty, DM II, HTN, NAFLD, dyslipidemia, chronic diarrhea, jeanine on cpap. Dual care: Has Community PCP at [place], Dorothy Juarez. Jesus Alberto't next week. Seen routinely and wants healthcare managed by community pcp. Non [facility] Cardiology: [place], recent jesus alberto't Non [facility] GI: Had normal colonscopy November 2023 per pt report. Lesion R shoulder for a while. Over the past several months has gotten thicker. Itchy and irritated. Fri he ripped off part of it and it bled. It did not come off. Has annoying skin tag one back of L thigh that hangs. He worries he is going to rip it off. No hx skin CA. Has had a few skin lesions removed in past - some frozen and several excised - benign. He made derm jesus alberto't in Nov at [facility] [place] [place] but he wondered if he should be seen sooner. Surgical history: Bilat rotator cuff bilat CTS Umbilical hernia Cholecystectomy L foot achilles spur R 5th toe removal (post op infection, so had to be removed) Multiple stents RCA and LAD: 2003, 2009, 2016 Family History; Father - severe CAD deceaesd [...] d/c 30+ years ago (when had first SC) Alcohol=none Marital status = . Occupation = retired from [employer] # Entered Discharge [employer] [id number] MAR 01, 1976 FEB 26, 1979 [employer]. 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 Ingrown toenails since in . 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 No polyps. Repeat 10 years per his recollection. AAA - Neg September 2023 Depression - denies Dental -[facility] q year. Due in December. ROS - 06/02 review of systems is completed and is negative except as stated above in HPI. Systems reviewed: Constitutional, Eyes, ENT, Respiratory, CV, GI, , MSK, Skin, Neuro and psych. Physical Exam WEIGHT: 235.8 lb [106.96 kg] (12/30/2023 11:26) BP: 134/63 (12/30/2023 11:26) PULSE: 61 (12/30/2023 11:26) RESP: 16 (10/09/2014 08:05) TEMP: 97.7 F [36.5 C] (12/30/2023 11:26) PULSE OX 12/30/23 @ 1126 PULSE OXIMETRY: 95 Appearance: WNWD Eyes: no conjunctival injection, no icterus Neck: No enlarged nodes or masses. CVS: RRR. No LE edema RESP: Normal respirations. No wheezes or crackles. GI: NTND, BS active. No masses. Skin: Skin examined head to toe, with exception of genital area. R shoulder 10 mm x 12 mm oval, well demarcated, raised stuck on brown rough/warty type lesion. scabbing surrounding periphery of lesion. Appears c/w traumatized SK. L lower back 12 mm irregular stuck on scaly and warty lesion. Light brown medially and dark brown, almost black along lateral border. Irregular borders. L posterior thigh shows lesion c/w large skin tag, approx 9 mm. He has multiple lesions on trunk and legs c/w SKs. Neuro: Grossly nonfocal. No tremors. Psych: Appropriate mood and affect. Speech clear and logical. Good historian Most recent lab data - WBC: 8.2 (10/22/23 14:03) HCT: 43.6 (10/22/23 14:03) HGB: 14.9 (10/22/23 14:03) PLT: 258 (10/22/23 14:03) NA: 137 (10/22/23 14:03) K: 4.5 (10/22/23 14:03) CL: 103 (10/22/23 14:03) CO2: 26 (10/22/23 14:03) BUN: 19 (10/22/23 14:03) CREATI: 0.96 (10/22/23 14:03) GLU: 143 (10/22/23 14:03) LFT: Collection DT Spec ALB TBIL ALP ALT AST 10/22/2023 14:03 PLASM 3.9 0.6 100 50 32 CHOL: 154 (10/22/23 14:03) HDL: 42 (10/22/23 14:03) LDL: 67 (10/22/23 14:03) TRI (10/22/23 14:03) TSH: 1.13 (10/22/23 14:03) PSA (PLATFORM BUILDER) 10/22/23 14:03 0.41 Assessment and Plan: # Neoplasm skin uncertain behavior; changing skin lesions: - R shoulder appears to be c/w traumatized SK; L lower back lesion has features of SK, but the variation of color including dark/almost black area does warrant eval by dermatology. Melanoma unlikely but cannot r/o by visual inspection by t/w. - He has jesus alberto't [facility] [place] [place] derm, has jesus alberto't 06/01 9:30 AM. Will use own insurance that has no copay. CC consult from [facility]. He will call to be put on cancellation list. - encouraged sun safety and routine skin exams I spent more than 50% of this encounter counseling the pt on the medical health issues listed above. The treatment plans above have been agreed upon by myself and the pt through shared decision making. AUNDREA Pelayo [facility] Medication Reconciliation: Perform Medication Reconciliation JLV Link Data on this list may not be complete. Please check JLV. Allergies/ADRs (Tool #5) FACILITY ALLERGY/ADR -------- Johan ZUNIGA DEPT OF [facility] NO KNOWN ALLERGIES [facility] ISOSORBIDE Med Recon NoGlossary (Tool #1) INCLUDED IN THIS LIST: Alphabetical list of active outpatient prescriptions dispensed from this [facility] (local) and dispensed from another [place] or [place] facility (remote) as well as inpatient orders (local pending and active), local clinic medications, locally documented non-VA medications, and local prescriptions that have or been discontinued in the past 90 days. Non-VA Meds Last Documented On: Oct 22, 2023 NOTE The display of VA prescriptions dispensed from another [place] or [place] facility (remote) is limited to active outpatient prescription entries matched to National Drug File at the originating site and may not include some items such as investigational drugs, compounds, etc. NOT INCLUDED IN THIS LIST: Medications self-entered by the patient into personal health records (i.e. [employer]) are NOT included in this list. Non-VA medications documented outside this [place], remote inpatient orders (regardless of status) and remote clinic medications are NOT included in this list. The patient and provider must always discuss medications the patient is taking, regardless of where the medication was dispensed or obtained. Non-VA AMLODIPINE BESYLATE 10MG TAB TAKE ONE TABLET BY MOUTH EVERY DAY Patient wants to buy from Non-VA pharmacy. Medication prescribed by Non-VA provider. Non-VA ASPIRIN 81MG EC TAB TAKE ONE TABLET BY MOUTH ONCE DAILY Non-VA DAPAGLIFLOZIN 10MG TAB TAKE ONE TABLET BY MOUTH ONCE DAILY Non-VA INSULIN GLARGINE-YFGN 100UNIT/ML 3ML PEN INJ INJECT 42 UNITS SUBCUTANEOUSLY ONCE DAILY Medication prescribed by Non-VA provider. [place] Non-VA INSULIN LISPRO HUMALOG 100UNT/ML KWIKPEN INJ INJECT 30 UNITS SUBCUTANEOUSLY DIRECTED Medication prescribed by Non-VA provider. Non-VA LISINOPRIL 5MG TAB TAKE ONE TABLET BY MOUTH EVERY DAY Aug 12, 2010 Patient wants to buy from Non-VA pharmacy. Non-VA MAGNESIUM OXIDE 400MG TAB TAKE ONE TABLET BY MOUTH AT BEDTIME Non-VA METOPROLOL SUCCINATE 50MG SA TAB TAKE THREE TABLETS BY MOUTH EVERY DAY Patient wants to buy from Non-VA pharmacy. Medication prescribed by Non-VA provider. Non-VA MULTIVITAMIN CAP/TAB TAKE ONE CAP/TAB BY MOUTH ONCE DAILY mens' 50 plus Non-VA RANOLAZINE 500MG SA TAB TAKE ONE TABLET BY MOUTH TWICE A DAY Non-VA medication recommended by VA provider. Non-VA ROSUVASTATIN CA 40MG TAB TAKE ONE TABLET BY MOUTH EVERY DAY Patient wants to buy from Non-VA pharmacy. Medication prescribed by Non-VA provider. Non-VA TRAZODONE HCL 50MG TAB TAKE ONE TABLET BY MOUTH AT BEDTIME SUPPLIES Comments: The patient's Essential Medication List for Review was used for reconciliation to address additions, deletions, and changes as reported by the patient/caregiver. The patient/caregiver indicates that medications are being taken as documented as described above. Was medication education provided for new medications or changes to medications? (including medication name, dose, route, reason for use, and potential side effects). No new medications or medication changes during this encounter. /jayce/ SWATI PEREZ PA-C Signed: 12/30/2023 12:24 SWATI PEREZ [facility] Dec 30, 2023 11:34 AM PRIMARY CARE POORNIMA [place] EVALUATION NOTE: LOCAL TITLE: Preventive Health Annual Review STANDARD TITLE: PRIMARY CARE ANNUAL EVALUATION NOTE DATE OF NOTE: DEC 30, 2023@11:34 ENTRY DATE: DEC 30, 2023@11:34:16 AUTHOR: ELVIS ARIZMENDI EXP COSIGNER: URGENCY: STATUS: COMPLETED COVID-19 Immunization: Refused Moderna Monovalent COVID-19 vaccine Immunization: COVID-19 (MODERNA), MRNA, LNP-S, PF, 50 MCG/0.5 ML (AGES 12+ YEARS) Refusal Reason: PATIENT DECISION Patient refuses all immunization(s) in the COVID-19 group Date Documented: 12/30/23 11:34 Herpes Zoster (Shingles) Vaccine: The patient declines to receive the recommended dose of zoster (shingles) vaccine. Immunization: ZOSTER RECOMBINANT Refusal Reason: PATIENT DECISION Patient refuses all immunization(s) in the ZOSTER group Date Documented: 12/30/23 11:35 Pneumococcal Conjugate Vaccine (PCV15/PCV20): Refuses PCV vaccine Immunization: PNEUMOCOCCAL CONJUGATE, UNSPECIFIED FORMULATION Refusal Reason: PATIENT DECISION Patient refuses all immunization(s) in the PneumoPCV group Date Documented: 12/30/23 11:35 Td / Tdap Immunization: The patient declines to receive the recommended dose of Td/Tdap vaccine. Immunization: TD(ADULT) UNSPECIFIED FORMULATION Refusal Reason: PATIENT DECISION Patient refuses all immunization(s) in the Td group Date Documented: 12/30/23 11:35 /jayce/ ELVIS ARIZMENDI [employer] Signed: 12/30/2023 11:36 ELVIS ARIZMENDI [facility]
--- OUTSIDE RECORDS SUMMARY | 2024-03-04 00:25 | XMS_ITS | Clinical Summary ---
Author Organization [facility] Address [address] [place] [address] Care Team Providers Care [employer] Social [employer] Teacher Name Role Phone MorroLiliaDenisejorden Easton APRN Primary Care Provider [phone] Allergies Active Allergy Reactions Criticality Noted Date [...] 2 diabetes mellitus with vascular disease ( [facility]) 03/19/2020 NSVT (nonsustained ventricular tachycardia) ([facility]) 03/19/2020 Chest pain 12/03/2018 Depression 12/03/2018 [...] 69 08/20 Hypertensive disorder 09/07/2009 Diabetes mellitus ([facility]) 09/07/2009 Overview: Oral agent - metformin Resolved Problems Problem Noted Date Diagnosed Date Resolved Date NSTEMI (non-ST elevated myoc ardial infarction) ([facility]) 03/19/2020 03/22/2020 Encounters Date Type Department Care Team Description 02/11/2024 14:30 EDT Phlebotomy Only [facility] 2 Phlebotomy [address] [place] [address] Clinical Rehab Liaison, [facility] Phlebotomy Other cirrhosis of liver (HCC-CMS) 02/11/2024 13:40 EDT Office Visit [facility] Gastroenterology [facility] [address] [place] [address] Kera Tatum PA-C Other cirrhosis of liver ([facility]) (Primary Dx) 01/05/2024 Telephone [facility] Cardiology [facility] [address] [place] [address] Davian Almonte MD Follow-up 01/05/2024 Telephone [facility] Cardiology [facility] [address] [place], [place] [phone] Davian Almonte MD Appointment Related 12/15/2023 [facility]phone [facility] [address], [place] [phone] Kera Tatum PA-C Coordination Of Care from Last 3 Months Surgical History Surgery Date Site/Laterality Comments UMBILICAL HERNIA REPAIR Jun, 2009 ROTATOR CUFF REPAIR right, fall 2014 CARPAL TUNNEL RELEASE bilateral TOE AMPUTATION right 5th Medical History Medical History Date Comments ID (myocardial infarction) ([facility]) 1992, 2003 CAD (coronary artery disease) PCI LAD prox MARY, LAD mid MARY, LAD distal BMS; 09-07-09 PCI MARY X 3 RCA; 2003 stents X2 Hypertension Diabetes mellitus ([facility]) oral agents Diverticulitis Hyperlipidemia Recurrent infections rt foot 5th toe Family History Medical History Relation Comments Diabetes Brother 1 Heart Disease Brother 2 Heart Disease Father at age 61 Relation Status Comments Brother 1 Brother 2 Father Social History Tobacco Use Types Packs/Day [...] 10:17 EST Sexual Orientation Not on file Obstetrics History Last Filed Vital Signs Vital Sign Reading [...] Body Mass Index 35.24 10/15/2023 1450 EDT Plan of Treatment Upcoming Encounters Date Type Department Care Team (Late st Contact Info) Description 08/08/2024 13:00 EST Office Visit [facility] Gastroenterology - [address] [address] Kera Tatum PA-C [address] [place] [address], [facility], [address] [place] [address] Health Maintenance Due Date Last Done Comments Eye Exam 1954 Foot Exam 1954 Microalbumin/Creatinine Ratio 1954 RSV Immunization ( o r 60+ Years) (1 - 1-dose 60+ series) 2014 Lipid Profile Screening (Cholesterol) 02/10/2017 02/11/2016, 08/18/2012, 06/16/2012, Additional history exists Hemoglobin A1C (Ha1C) 09/16/2020 03/19/2020 , 12/03/2018, 02/10/2016, Additional history exists Fall Risk Screening 05/04/2021 05/04/2020 COVID-19 Vaccine (2022-2 4 season) 2023 04/22/2021, 09/21/2020, 08/30/2020 Advance Directive Review 12/08/2023 Hepatitis C Screen Completed 12/01/2022 Procedures Procedure Name Priority Date/Time Associated Diagnosis [...] 49 - 181 ??g/dL 02/11/2024 16:59 EDT [facility] Iron Binding Capacity 398 240 - 450 ??g/dL 02/11/2024 16:59 EDT [facility] Transferrin Saturation 27 15 - 45 % 02/11/2024 16:59 EDT [facility] Blood VENOUS BLOOD / Unknown Venipuncture / Unknown 02/11/2024 15:02 EDT 02/11/2024 15:58 EDT Kera Tatum PA-C CHEMISTRY & B LOOD GAS ORDERABLES Performing Organization Address [facility] Co de Phone Number [facility] [address] [place] [address] * PROTIME (02/11/2024 15:02 EDT) I.N.R. 1.1 0.9 - 1.1 Ratio 02/11/2024 16:15 EDT [facility] Pro Time 12.1 9.7 - 12.8 secs 02/11/2024 16:15 EDT [facility] Blood VENOUS BLOOD / Unknown Venipuncture / Unknown 02/11/2024 15:02 EDT 02/11/2024 15:48 EDT Narrative [facility] - 02/11/2024 16:15 EDT Moderate Intensity Coumadin INR = 2.0-3.0 Adjustments in anticoagulant therapy dose should be based on the INR and NOT on the Protime. Kera Tatum PA-C HEMATOLOGY & PF4 ORDERABLES Performing Organization Address City/[facility] Co de Phone Number [facility] [address] [place], [place] [phone] * COMPLETE BLOOD COUNT (02/11/2024 15:02 EDT) WBC 6.82 4.00 - 10.40 K/cmm 02/11/2024 16:23 EDT [facility] RBC 5.31 4.36 - 5.78 M/cmm 02/11/2024 16:23 EDT [facility] Hemoglobin 15.3 13.8 - 17.3 g/dL 02/11/2024 16:23 EDT [facility] HCT 45.2 39.5 - 50.2 % 02/11/2024 16:23 EDT [facility] MCV 85 81 - 95 fL 02/11/2024 16:23 EDT [facility] MCH 28.8 27.6 - 33.0 pg 02/11/2024 16:23 EDT [facility] MCHC 33.8 32.8 - 36.4 g/dL 02/11/2024 16:23 EDT [facility] RDW-CV 12.8 <14.2 % 02/11/2024 16:23 EDT [facility] RDW-SD 39.7 <46.0 fl 02/11/2024 16:23 EDT [facility] PLT 220 141 - 377 K/cmm 02/11/2024 16:23 EDT [facility] MPV 10.7 9.5 - 12.7 fL 02/11/2024 16:23 EDT [facility] Blood VENOUS BLOOD / Unknown Venipuncture / Unknown 02/11/2024 15:02 EDT 02/11/2024 15:57 EDT Kera Tatum PA-C HEMATOLOGY & PF4 ORDERABLES Performing Organization Address City/[facility]/ZIP Co de Phone Number [facility] [address] [place], [place] [phone] * FERRITIN (02/11/2024 15:02 EDT) Ferritin 122 22 - 322 ng/mL 02/11/2024 18:01 EDT [facility] Blood VENOUS BLOOD / Unknown Venipuncture / Unknown 02/11/2024 15:02 EDT 02/11/2024 15:58 EDT Kera Tatum PA-C CHEMISTRY & B LOOD GAS ORDERABLES Performing Organization Address City/[facility]/ZIP Co de Phone Number [facility] [address] [place], [place] [phone] * (ABNORMAL) COMPREHENSIVE METABOLIC PANEL (CMP) (02/11/2024 15:02 EDT) Sodium 141 136 - 145 mmol/L 02/11/2024 16:49 EDT [facility] Potassium 4.6 3.5 - 5.0 [...] Bilirubin, Total 0.7 <1.4 mg/dL 02/11/20 16:49 [facility] Calcium 9.5 8.5 - 10.5 mg/dL 02/11/2024 16:49 [facility] Albumin/Globulin Ratio 1.8 1.0 - 2.5 02/11/2024 16:49 [facility] Anion Gap 17(H) 5 - 14 mmol/L 02/11/2024 16:49 [facility] Blood VENOUS BLOOD / Unknown Venipuncture / Unknown 02/11/2024 15:02 EDT 02/11/2024 15:58 EDT Kera Tatum PA-C CHEMISTRY & B LOOD GAS ORDERABLES Performing Organization Address City/[facility]/ZIP Co de Phone Number [facility] [address] [place] [address] * HEPATITIS C AB W REFLEX TO HCV RNA BY PCR (12/01/2022 14:59 EDT) Hep C Antibody Negative Negative 12/02/2022 10:09 EDT [facility] Blood VENOUS BLOOD / Unknown Venipuncture / Unknown 12/01/2022 14:59 EDT 12/01/2022 15:31 EDT Kera Tatum PA-C CHEMISTRY & B LOOD GAS ORDERABLES Performing Organization Address [facility] Co de Phone Number [facility] [address] [place] [address] * (ABNORMAL) HEMOGLOBIN A1C (03/19/2020 1:51 EDT) Pathologist [facility] Hemoglobin A1c 7.4(H) <5.7 % 03/19/2020 8:30 EDT [facility] Comment: Glycemic Status References: Normal: [...] Avg Glucose 166 mg/dL 0 8:30 EDT [facility] Comment:The eAG represents t he A1c result expressed as average glucose in mg/dL. Blood VENOUS BLOOD / Unknown Venipuncture / Unknown 03/19/2020 1:51 EDT 03/19/2020 1:55 EDT Joesph Wesley MD CHEMISTRY & BLOOD GA S ORDERABLES Performing Organization Address City/[facility]/ZIP Co de Phone Number [facility] [address] [place] [address] * LIPID PROFILE (INCLUDES CHOLESTEROL, TRIGLYCERIDES, HDL, LDL) (02/11/2016 5:33 EDT) Cholesterol 137 mg/dl 02/11/2016 6:18 EDT [facility] Comment: Desirable:<200 Borderline High:200-239 High:>qz=821 Triglycerides 187 mg/dl 02/11/2016 6:18 EDT [facility] Comment: Normal:<150 Borderline High:150-199 High:200-499 Very High:>xn=908 HDL 40 mg/dl 02/11/2016 6:18 T [facility] Comment: Low:<40 Normal:40-60 Desirable: >60 LDL, Calculated 60 mg/dl 6 6:18 T [facility] Comment: Optimal:<100 Near Optimal:100-129 Borderline High:130-159 High:160-189 Very High:>ph=831 Chol/HDL Ratio 3.4 02/11/2016 6:18 [facility] Fasting? Unknown 02/11/2016 5:45 EDT [facility] Non HDL Cholesterol 97 mg/dl 02/11/2016 6:18 [facility] Comment: Desirable:<130 Borderline:130-159 High: 160-189 Very High: >sy=411 Blood specimen (specimen) BLOOD SPECIMEN / Unknown 02/11/2016 5:33 EDT 02/11/2016 5:45 EDT Varun Stockton MD CHEMISTRY & BLO OD GAS ORDERABLES Performing Organization Address [facility] Co de Phone Number [facility] [address] [place] [address] from Last 3 Months or Most Recently Relevant to Health Maintenance Advance Directives For more information, please contact: [phone] Documents on File Type Date Recorded Patient Foundry Tender Expl anation Advance Directive 12/07/2018 15:17 [place] [...] Comments 09/07/2009 12:27 09/08/2009 15:06 Care Teams [employer] Social Studies Teacher Relationship Specialty Start Date End Date Denise Hooker APRN [address] [place] [address] PCP - General 09/13/18
--- OUTSIDE RECORDS SUMMARY | 2024-03-04 00:25 | XMS_ITS | Encounter Summary ---
Author Organization [facility] Address [address] [place] [address] Care Team Providers Care Seating Upholsterer Name Role Phone MorroDenise galvan JENNIFER Primary Care Provider [phone] Reason for Visit * Reason Onset Date Comments Coordination Of Care 12/15/2023 Encounter Details Date Type Department Care Team ([facility] Contact Info) Description 12/15/2023 Telephone [facility] Gastroenterology - [facility] [address] [place], [place] [phone] Kera Tatum PA-C [address] [place] [address], [facility] [address] [place] [address] Coordination Of Care Social History Tobacco Use Types Packs/Day Years [...] encounter Miscellaneous Notes * Telephone Encounter - Dawood Ayoub - 12/15/2023 1159 EDT LM for pt, he is Ramesh's pt but was scheduled w/ Dr. Phan 01/24 so will need to reschedule documented in this encounter Plan of Treatment Upcoming Encounters Date Type Department Care Team (Late st Contact Info) Description 08/08/2024 13:00 EST Office Visit [facility] Gastroenterology - [facility] [address] [place], [place] [address] Kera Tatum PA-C [address] [facility], [address] [place] [phone] documented as of this encounter Visit Diagnoses Not on filedocumented in this encounter Care Teams Seating Upholsterer Relationship Specialty Start Date End Date Denise Hooker APRN [address] [place], [place] [phone] PCP - General 09/13/18 documented as of this encounter
--- OUTSIDE RECORDS SUMMARY | 2024-03-04 00:25 | XMS_ITS | Encounter Summary ---
Author Organization [facility] Address [address] [place] [address] Care Team Providers Care Tape Calender Name Role Phone Denise Hooker JENNIFER Primary Care Provider [phone] Encounter Details Date Type Department Care Team ([facility] Contact Info) Description 12/26/[address] [facility] Pathology & Laboratory Medicine - [facility] [address] [place] [address] Grace Castillo MD [address] [place] [phone] Neoplasm of uncertain behavior of skin Social History Tobacco Use Types Packs/Day Years [...] Info) Description 08/08/2024 13:[address] [facility] Gastroenterology - [address] [address] Kera Tatum PA-C [address] [place] [address], [facility], [address] [place] [address] documented as of this encounter Procedures Procedure Name Priority Date/Time Associated Diagnosis Comments SURGICAL PATHOLOGY Today 12/26/2022 12 :10 EDT Neoplasm of uncertain behavior of skin documented in this encounter Results * SURGICAL PATHOLOGY (12/26/2022 12:10 EDT) Note to Patient The following pathology results have been interpreted by your pathologist and may be available to you before your health provider has had the opportunity to review them. Please allow time for your provider to receive these results and explore management options, if applicable. 12/30/2022 11:10 EDT [facility] Final Diagnosis A. SKIN OF FOREARM, LEFT, PUNCH BIOPSY: - Seborrheic keratosis, irritated and inflamed. 12/30/2022 11:10 EDT [facility] Attestation By the signature below, the attending physician certifies that they have 1) personally conducted a gross and/or microscopic examination of the described specimen(s), and/or personally interpreted the results of laboratory testing of the described specimen(s), and 2) personally rendered or confirmed the above diagnosis. 12/30/2022 11:10 [facility] at 1109 Microscopic Description Orthohyperkeratosis and focal parakeratosis thicken the stratum corneum. There is formation of horn pseudocysts. The epidermis is hyperplastic with acanthosis and papillomatosis. The keratinocytes have a basaloid appearance with squamous eddies in many areas. Within the dermis, there is a moderately dense lymphohistiocytic infiltrate. The infiltrate extends into the epidermis with concomitant vacuolar change and keratinocyte necrosis. 12/30/2022 11:10 [facility] Clinical History Friable papule, unroofed spontaneously prior to procedure; clinical diagnosis code: D48.9 12/30/2022 11:10 T [facility] Gross Description A. Received in formalin labelled with proper patient identification (initials M, G) and L forearm Bx is a punch biopsy of pale rock focally red-brown skin (0.4 cm in diameter by 0.4 cm in thickness). The specimen is bisected and entirely submitted in A1. Ronnie Scripter 12/29/2022 11:56 12/30/2022 11:10 T [facility] Performing Lab [facility] 12/30/2022 11:10 [facility] Scanned Images 12/30/2022 11:10 [facility] Tissue TISSUE SPECIMEN FROM SKIN / Unknown 12/26/2022 12:10 EDT 12/26/2022 19:11 EDT Grace Castillo MD PATHOLOGY ORDERABLES [facility] [address] [place] [address] documented in this encounter Visit Diagnoses Diagnosis Neoplasm of uncertain behavior of skin documented in this encounter Care Teams Tape Calender Relationship Specialty Start Date End Date Denise Hooker APRN [address] [place] [address] PCP - General 09/13/18 documented as of this encounter
--- OUTSIDE RECORDS SUMMARY | 2024-03-04 00:25 | XMS_ITS | Encounter Summary ---
Author Organization [facility] Address [address] [place] [address] Care Team Providers Care Photovoltaic Technician Name Role Phone MorroLilia galvanhrcharu Easton JENNIFER Primary Care Provider [phone] Reason for Visit * Reason Onset Date Comments Appointment Related 01/05/2024 Encounter Details Date Type Department Care Team ([facility] Contact Info) Description 01/05/2024 Telephone [facility] Cardiology - [address] [place] [address] Davian Almonte MD [address] [place], [place] [phone] Appointment Related Social History Tobacco Use Types Packs/Day Years [...] encounter Miscellaneous Notes * Telephone Encounter - Tala Llanes RN - 01/05/[address] Almonte called pt, see encounter for today. * Telephone Encounter - Tala Llanes RN - 01/05/2024 1015 EDT Almond Pan Finisher returned pt's call. Pt stated Thursday he had SOB and CP most of the afternoon that was not relieved by 3 doses of Nitro. Pt states he went to the ER [facility] were negative, chest xray showed right lower lobe of lung possible pneumonia. Pt was started on antibiotic and has since felt better with no SOB or CP. Pt states his bp 120s/50-60s. Almond Pan Finisher will notify provider as pt stated ER told him to also f/u with cards and see if he has any further recommendations or testing charly done. No barriers to learning identified. * Telephone Encounter - Lanette Almeida - 01/05/2024 1000 EDT No appointment available until April * Telephone Encounter - Joana Han - 01/05/2024 0953 EDT Calling to schedule apptment with Dr Davian Almonte Almond Pan Finisher unable to schedule due to no available apptment within bookit; Please contact patient ; Reason for apptment : Angina; shortness of breath and chest pain documented in this encounter Plan of Treatment Upcoming Encounters Date Type Department Care Team (Late st Contact Info) Description 08/08/2024 13:00 EST Office Visit [facility] Gastroenterology - [address] [address] Kera Tatum PA-C [address] [facility], [address] [place] [phone] documented as of this encounter Visit Diagnoses Not on filedocumented in this encounter Care Teams Photovoltaic Technician Relationship Specialty Start Date End Date Denise Hooker APRN [address] [place] [address] PCP - General 09/13/18 documented as of this encounter
--- OUTSIDE RECORDS SUMMARY | 2024-03-04 00:25 | XMS_ITS | Encounter Summary ---
Author Name [facility] [place] Organization [facility] [facility] [place] Address [address] [place] [address] Care Team Providers Care Direct Care Provider Name Role Phone WARNER ORTIZ Primary Care [...] CBA BLUE HIGH DEDUCTIBL E HEALTH PLAN WEI SADIE HP Jul 20, 2009 [id number] SRINIVAS BATISTA PATIENT EXPRESS SCRIPTS ([id number]) PRESCRIPT ION Jul 20, 2017 [id number] SRINIVAS BATISTA PATIENT MEDICARE (WNR) MEDICARE (M) PART B Apr 19, 2020 PART B [id number] SRINIVAS BATISTA PATIENT MEDICARE (WNR) MEDICARE (M) PART A Oct 19, 2019 PART A [id number] SRINIVAS BATISTA PATIENT RESTAT PRESCRIPT ZULMA DEWEY BLUE November 17, 2009 [id number] SRINIVAS BATISTA PATIENT Selected Encounter This section includes the information on record at [place] for the Encounter. Date/Time Encounter Type Encounter Description Reason Pro vider Source Dec 21, 2023 01:03 PM Outpatient Encounter TELEPHONE TRIAGE IHE Encounter Template Text not used by [place] Plan of Treatment: Future Appointments (+ 6 months) and Future Tests (+/- 45 days) The Plan of Treatment section includes future care activities for the patient from all [place] treatmentfacilities. This section includes future appointments and future orders which are active, pending or scheduled. Future Appointments This section includes appointments that were scheduled to occur 6 months from the date of the Encounter, up to a maximum of 20 appointments. The data comes from all [place] treatment facilities. Appointment Date/Time Appointment Type Appointme nt Facility Name Dec 30, 2023 11:30 AM AMBULATORY - NONE [facility] Mar 02, 2024 08:20 AM AMBULATORY - NONE [facility] Mar 15, 2024 04:00 PM AMBULATORY - REHAB MEDICIN E [facility] Mar 23, 2024 11:30 AM AMBULATORY - SURGERY [facility] Social History: Smoking Status (Most current) and Tobacco Use (All prior to encounter date) This section includes the most current, and the historical, smoking and tobacco- related health factors from the [place] facility where the Encounter took place. Current Smoking Status This section includes the most current smoking, or tobacco-related health factor, from the [place] facility where the Encounter took place. Date/Time Current Smoking Status Comment Yamilet ity Jan 26, 2003 10:05 AM QUIT TOBACCO USE > 7 YEARS AGO [facility] Tobacco Use History This section includes a history of the smoking, or tobacco-related health factors, that were collected on or before the date of the Encounter. The data comes from the [place] facility where the Encounter took place. Date/Time Smoking Status/Tobacco Use Comment F acility November 29, 2002 01:00 PM HISTORY OF SMOKING [facility] Advance Directives: All historical and current Section Date Range: From patient's date of to the date document was created. This section includes ALL of a patient's completed or amended VA Advance and Rescinded Directives. The entries below indicate that a directive exists for the patient, but an actual copy is not included with this document. The data comes from all [place] facilities. Date Advance Directives Provider Source November 23, 2017 ADVANCE DIRECTIVE JOI DEVRIES NADEEN ER J[facility] Encounter Notes: All associated encounter notes This section contains the clinical notes associated to the Encounter. Date/Time Encounter Note(s) Provider Source Dec 21, 2023 01:03 PM RN PROGRESS NOTE: LOCAL TITLE: CCC: CLINICAL TRIAGE STANDARD TITLE: RN PROGRESS NOTE DATE OF NOTE: DEC 21, 2023@13:03:09 ENTRY DATE: DEC 21, 2023@13:03:09 AUTHOR: DESIREE TSE COSIGNER: URGENCY: STATUS: COMPLETED CCC: CLINICAL TRIAGE Has ADDENDA Patient Demographics Patient Name: CLAUDIA BATISTA Patient Primary [address]: [address] [place] [address] Patient Primary Phone: [phone] Patient : 1955 Patient Age: 68 Current Location: HOME Call Back Number: Caller/Recipient Relation to Patient: Self Emergency Contact: ANA BATISTA Triage Summary Conducted triage/discussed symptoms Pain Score: 0 (No Pain) Utilized the Triage Tool: Yes Chief Complaint: Mole On The Skin System WHEN: Within 2 Weeks Nurse's Recommendation / WHEN: Within 2 Weeks System WHERE: Clinic Nurse's Recommendation / WHERE: Clinic/[facility] Patient Disposition Patient/Caregiver agrees to plan of care: Yes Nursing Plan and Disposition Referred Patient for In-Person Appt Transferred patient to Sched & Admin-Apt Other course(s) of action Generated msg to PACT/Provider Provided guidance for worsening symptoms: *Caller/Patient* advised to call facilities [place] Clinical Contact Center or seek immediate medical attention for new or worsening symptoms Nurse Summary Nurse Summary: STATES I WAS TRYING TO GET INTO SEE A PROCESSING INSPECTOR, MOLES COUPLE THAT ARE IRRITATING BIG ONE ON THE BACK OF MY RIGHT LEG ; RIGHT SHOULDER MOLE IS GROWING AGREES TO AN APPOINTMENT WITH PCP SEE TRIAGE FOR FURTHER INFORMATION FOR DETAILS PACT ALERTED FOR FURTHER FOLLOW UP Clinical Contact Center Codes Clinic/Location: [facility] PHONE CCC RN TXCC Triage Complete Triage Date: 12/21/2023, 12:58 PM Triage Note: Phone Triage Mon, 21 Dec 2023 16:57:47 +0000 [facility] Demographics 68 y/o Male Results CC: Mole On The Skin Software suggested: Within 2 Weeks Software suggested follow-up location: Clinic, consider virtual care Values and Measures Duration of CC: 2 Months Positive Responses HPI: mole, enlarging VS: temperature not taken Negative Responses Denies: HPI: skin erythema, around skin lump or bump [place] Education Verbal Education Provided for: Skin Lesion Home Care /es/ DESIREE TSE GASOLINE SERVICE ATTENDANT REGISTERED NURSE Signed: 12/21/2023 13:03 Receipt Acknowledged By: 12/21/2023 13:08 /jayce/ MARTINE ANTONY LPN 12/21/2023 13:46 /jayce/ OMEGA MENCHACA Registered Nurse 12/21/2023 ADDENDUM STATUS: COMPLETED RTC is in place MSAs are alerted via teams /jayce/ MARTINE ANTONY LPN Signed: 12/21/2023 13:08 DESIREE TSE [facility]
--- OUTSIDE RECORDS SUMMARY | 2024-03-04 00:25 | XMS_ITS | Encounter Summary ---
Author Organization 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) Social History Tobacco Use Types [...] Sign Reading Time Taken Comments Blood Pressure 143/64 10/15/2023 1450 EDT Pulse - - Temperature - - Respiratory Rate - - Oxygen Saturation - - Inhaled Oxygen Concentration - - Weight 104.8 kg (231 lb) 10/15/2023 1450 EDT Height 175.3 cm (5' 9) 10/15/2023 1450 EDT Body Mass Index 34.11 10/15/2023 1450 EDT documented in this encounter Functional Status [...] Description 08/08/2024 13:00 EST Office Visit [facility] Gastroenterology - [address] [id number] Kera Tatum PA-C [address] [place] [address], [address] [place] [address] documented as of this encounter Procedures Procedure Name Priority Date/Time Associated Diagnosis Comments TRANSTHORACIC ECHO (TTE) COMPLETE Routine 10/15/2023 14:41 EDT 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, unspecified vessel or lesion type ([facility]) documented in this encounter Results * TRANSTHORACIC ECHO (TTE) COMPLETE W/DOPPLER W/CF NO CONTRAST (10/15/2023 14:41 EDT) Pathologist [facility] Mitral deceleration time 268 ms MERGE CARDIO AVAI Pk Adam 1.1 cm2/m2 MERGE CARDIO AV DOI 0.8 MERGE CARDIO LV Diastolic Volume 124 mL MERGE C[facility]IO LV Systolic Volume 51 mL MERGE CARDIO Mitral A-wave peak velocity 0.9 m/s MERGE CARDIO Mitral E-wave peak velocity 1.1 m/s MERGE C[facility]IO Mitral peak gradient, D 5 mmHg [facility]IO Aortic peak gradient, S 10 mmHg [facility] C[facility]IO Stroke volume (SV), LVOT DP 85 ml MERGE C[facility]IO Aortic valve VTI, S 32.2 cm MERGE C[facility]IO LVOT VTI, S 27.1 cm MERGE CARDIO LVOT peak velocity, S 1.3 m/s MERGE C[facility]IO LVOT area 3.1 cm2 MERGE C[facility]IO LVOT ID, S 2.0 cm MERGE CARDIO AV LVOT peak gradient 6 mmHg [facility]IO Velocity ratio, mean, LVOT/AV 0.76 MERGE C[facility]IO Aortic valve area, peak velocity 2.5 cm2 MER[facility]IO LVOT mean gradient, S 3 mmHg MERGE C[facility]IO LV ejection fraction, 1-p A4C 64 % MERGE C[facility]IO LV ejection fraction, 1-p A2C 67 % MERGE C[facility]IO AV dimensionless index (DI) 1.2 MERGE C[facility]IO Aortic valve mean velocity, S 1.0 m/s MERGE CARDIO Aortic valve area 2.4 cm2 MERGE C[facility]IO Aortic root ID 3.0 cm MERGE CARDIO EF 65 % MERGE C[facility]IO LV ID, ES, PLAX 3.5 2.1 - 4.0 cm MERGE C[facility]IO LV PW thickness, ED, PLAX 1.1 0.6 - 1.1 cm MERGE CARDIO LV ID, ED, PLAX 5.1 3.5 - 6.0 cm MERGE CARDIO LVIDD BY MMODE 5.1 cm MERGE C[facility]IO LA volume/bsa, ES, BP 18.0 ml/m2 MERGE CARDIO LA volume, ES, BP 40.0 ml MERGE CARDIO LA volume/bsa, ES, A4C 16.0 ml/m2 MERGE CARDIO LA Atrial Area A2C 14.2 cm2 MERGE C[facility]IO LA Atrial Length A2C 5.0 cm MERGE CARDI O LA volumes, ES, A4C 35.0 ml MERGE CARDIO LA Atrial Area A4C 14.2 cm2 MERGE CARDIO LA Atrial Length A4C 4.5 cm MERGE CARDI O Pulmonic valve mean velocity, S 1 cm/s MERGE CARDIO LA ID, A-P, ES 4.2 cm MERGE CARDIO LV end-diastolic volume, 1-p A4C 116 ml MERGE CARDIO LV end diastolic volume 1-p A2C 107 ml MERGE CARDIO Stroke index (SV/bsa) LVOT DP 38.0 ml/m2 MERGE C[facility]IO LA/aortic root ratio 1.4 MERGE CARDI O LV E/e', medial 7.4 MERGE CARDIO LV e', lateral 10.40 m/s MERGE CARDIO LV e', medial 7.40 m/s MERGE CARDIO LVOT mean velocity, S 0.8 m/s MERGE C[facility]IO Interventricular Septum to Posterior Wall Thickness Ratio 1 MERGE C[facility]IO Anatomical Region Laterality Modality Ultrasound Narrative 10/16/2023 7:26 EDT ?Left??Ventricle: The left ventricular cavity was normal in size. Left ventricular systolic function was normal with an ejection fraction of 60-65%. Although no diagnostic regional wall motion abnormality was identified, this possibility cannot be completely excluded on the basis of this study. ?Right??Ventricle: The right ventricular cavity was normal in size. Right ventricular systolic function was normal. Left Ventricle The left ventricular cavity was [...] The right atrium was normal in size. IVC/SVC The inferior vena cava was normal in size. The inferior vena cava demonstrated a diameter of <=21 mm and collapses >50%; therefore, the right atrial pressure is estimated at 0-5 mmHg. Mitral Valve Mitral valve structure was normal. There was trace mitral regurgitation. There was no significant mitral valve stenosis. Tricuspid Valve Tricuspid valve structure was normal. There was no significant tricuspid valve regurgitation. There was no tricuspid valve stenosis. Aortic Valve The aortic valve structure was trileaflet. There was no aortic valve stenosis. There was no significant aortic valve regurgitation. Pulmonic Valve The pulmonic valve was not well visualized. There was no significant pulmonic valve regurgitation. There was no pulmonic valve stenosis. Ascending Aorta The aorta was not well visualized. Pericardium There was no pericardial effusion. Pulmonic Artery Unable to assess PA pressure, due to suboptimal tricuspid regurgitation envelope. Study Details Study status: Routine. Transthoracic echocardiography. M-Mode, complete 2D, complete spectral Doppler, and color Doppler.The study was interpreted by [facility]. Pertinent images and digital data are archived for permanent storage and are available for subsequent review. Scanning was performed from the apical, parasternal, subcostal and suprasternal acoustic windows. Overall the study quality was adequate. Images were obtained using cardiac ultrasound machine EPIQ #12. 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) documented in this encounter Care Teams Technical Report Writer Relationship Specialty Start Date End Date Denise Hooker APRN [address] [place] [address] PCP - General 09/13/18 documented as of this encounter
--- OUTSIDE RECORDS SUMMARY | 2024-03-04 00:25 | XMS_ITS | Encounter Summary ---
Author Organization [facility] Address [address] [place] [address] Care Team Providers Care Hand Plate Stacker Name Role Phone Denise Hooker JENNIFER Primary Care Provider [phone] Encounter Details Date Type Department Care Team ([facility] st Contact Info) Description 12/01/2022 15:00 EDT Phlebotomy Only [facility] 2 Phlebotomy [address] [place] [address] Ultrasound Technologist, Acc Phlebotomy NAFLD (nonalcoholic fatty liver disease); Elevated liver enzymes Social History Tobacco Use Types Packs/Day Years [...] Info) Description 08/08/2024 13:00 EST Office Visit [facility] Gastroenterology - [address] [address] Kera Tatum PA-C [address] [place] [address], [facility], [address] [place] [address] documented as of this encounter Procedures Procedure Name Priority Date/Time Associated Diagnosis Comments HEPATITIS C AB W REFLEX TO HCV RNA BY PCR Routine 12/01/2022 14:59 EDT Elevated liver enzymes HEPATITIS B CORE ANTIBODY (TOTAL) Routine 12/01/2022 14:59 EDT Elevated liver enzymes HEPATITIS B SURFACE ANTIGEN Routine 12/01/2022 14:59 EDT Elevated liver enzymes PROTIME Routine 12/01/2022 14:59 EDT NAFLD (nonalcoholic fatty liver disease) Elevated liver enzymes COMPLETE BLOOD COUNT Routine 12/01/2022 14:59 EDT NAFLD (nonalcoholic fatty liver disease) Elevated liver enzymes COMPREHENSIVE METABOLIC PANEL (CMP) Routine 12/01/2022 14:59 EDT NAFLD (nonalcoholic fatty liver disease) Elevated liver enzymes documented in this encounter Results * HEPATITIS B CORE ANTIBODY (TOTAL) (12/01/2022 14:59 EDT) Hepatitis B Core Ab, Total Negative Negative 12/02/2022 10:03 EDT [facility] Blood VENOUS BLOOD / Unknown Venipuncture / Unknown 12/01/2022 14:59 EDT 12/01/2022 15:30 EDT Kera Tatum PA-C CHEMISTRY & B LOOD GAS ORDERABLES Performing Organization Address City/[facility]/ZIP Co de Phone Number [facility] [address] [place] [address] * HEPATITIS B SURFACE ANTIGEN (12/01/2022 14:59 EDT) Pathologist [facility] [place] Hep B Surface Ag Negative Negative 12/02/2022 9:19 EDT [facility] Blood VENOUS BLOOD / Unknown Venipuncture / Unknown 12/01/2022 14:59 EDT 12/01/2022 15:30 EDT Kera Tatum PA-C CHEMISTRY & B LOOD GAS ORDERABLES Performing Organization Address [facility] Co de Phone Number [facility] [address] [place] [address] * HEPATITIS C AB W REFLEX TO HCV RNA BY PCR (12/01/2022 14:59 EDT) Pathologist [facility] [place] Hep C Antibody Negative Negative 12/02/2022 10:09 EDT [facility] Blood VENOUS BLOOD / Unknown Venipuncture / Unknown 12/01/2022 14:59 EDT 12/01/2022 15:31 EDT Kera Tatum PA-C CHEMISTRY & B LOOD GAS ORDERABLES Performing Organization Address [facility] Co de Phone Number [facility] [address] [place] [address] * PROTIME (12/01/2022 14:59 EDT) I.N.R. 1.0 0.9 - 1.1 Ratio 12/01/2022 16:05 EDT [facility] Pro Time 11.3 9.7 - 12.8 secs 12/01/2022 16:05 [facility] Blood VENOUS BLOOD / Unknown Venipuncture / Unknown 12/01/2022 14:59 EDT 12/01/2022 15:31 EDT Narrative [facility] - 12/01/2022 16:05 EDT Moderate Intensity Coumadin INR = 2.0-3.0 Adjustments in anticoagulant therapy dose should be based on the INR and NOT on the Protime. Kera Tatum PA-C HEMATOLOGY & PF4 ORDERABLES [facility] [address] [place] [address] * (ABNORMAL) COMPREHENSIVE METABOLIC PANEL (CMP) (12/01/2022 14:59 EDT) Sodium 139 136 - 145 mmol/L 12/01/2022 16:02 [facility] Potassium 4.6 3.5 - 5.0 mmol/L 12/01/2022 16:02 [facility] Chloride 100 96 - 110 mmol/L 12/01/2022 16:02 [facility] CO2 Total 28 22 - 32 mmol/L 12/01/2022 16:02 [facility] Glucose 221(H) 70 - 100 mg/dl 12/01/2022 16:02 [facility] BUN 16 10 - 26 mg/dL 12/01/2022 16:02 [facility] Creatinine 0.95 0.66 - 1.25 mg/dL 12/01/2022 16:02 [facility] eGFR 87 >60 mL/min/1.7 3m2 12/01/2022 16:02 [facility] Total Protein 7.6 6.3 - 8.2 g/dL 12/01/2022 16:02 [facility] Albumin 4.8 3.4 - 4.9 g/dL 12/01/2022 16:02 [facility] Alkaline Phosphatase 91 38 - 126 U/L 12/01/2022 16:02 [facility] AST 38 15 - 46 U/L 12/01/2022 16:02 [facility] ALT 70(H) <50 U/L 12/01/2022 16:02 [facility] Bilirubin, Total <0.5 <1.4 mg/dL 12/02/19 16:02 [facility] Calcium 9.3 8.5 - 10.5 mg/dL 12/01/2022 16:02 [facility] Albumin/Globulin Ratio 1.7 1.0 - 2.5 12/01/2022 16:02 [facility] Anion Gap 11 5 - 14 mmol/L 12/01/2022 16:02 [facility] Blood VENOUS BLOOD / Unknown Venipuncture / Unknown 12/01/2022 14:59 EDT 12/01/2022 15:31 EDT Kera Tatum PA-C CHEMISTRY & B LOOD GAS ORDERABLES [facility] [address] [place] [address] * COMPLETE BLOOD COUNT (12/01/2022 14:59 EDT) WBC 7.90 4.00 - 10.40 K/cmm 12/01/2022 15:45 [facility] RBC 5.30 4.36 - 5.78 M/cmm 12/01/2022 15:45 [facility] Hemoglobin 15.1 13.8 - 17.3 gm/dL 12/01/2022 15:45 [facility] HCT 45.6 39.5 - 50.2 % 12/01/2022 15:45 [facility] MCV 86 81 - 95 fl 12/01/2022 15:45 [facility] MCH 28.5 27.6 - 33.0 pg 12/01/2022 15:45 [facility] MCHC 33.1 32.8 - 36.4 gm/dL 12/01/2022 15:45 EDT [facility] RDW-CV 13.4 <14.2 % 12/01/2022 15:45 EDT [facility] RDW-SD 42.0 <46.0 fl 12/01/2022 15:45 EDT [facility] PLT 268 141 - 377 K/cmm 12/01/2022 15:45 EDT [facility] MPV 10.4 9.5 - 12.7 fl 12/01/2022 15:45 EDT [facility] Blood VENOUS BLOOD / Unknown Venipuncture / Unknown 12/01/2022 14:59 EDT 12/01/2022 15:30 EDT Kera Tatum PA-C HEMATOLOGY & PF4 ORDERABLES [facility] [address] [place] [address] documented in this encounter Visit Diagnoses Diagnosis NAFLD (nonalcoholic fatty liver disease) Other chronic nonalcoholic liver disease Elevated liver enzymes Other nonspecific abnormal serum enzyme levels documented in this encounter Care Teams Hand Plate Stacker Relationship Specialty Start Date End Date Denise Hooker APRN [address] [place] [address] PCP - General 09/13/18 documented as of this encounter
--- OUTSIDE RECORDS SUMMARY | 2024-03-04 00:25 | XMS_ITS | Encounter Summary ---
Author Organization [facility] Address [address] [place] [address] Care Team Providers Care Laundry Route Driver Name Role Phone Denise Hooker JENNIFER Primary Care Provider [phone] Reason for Visit * Reason Comments Procedure Fatty liver * Referral (Routine/Next Available) - Authorized Specialty Diagnoses / Procedures Referred By Contact Referred To Contact Gastroenterology and Hepatology Diagnoses NAFLD (nonalcoholic fatty liver disease) Elevated liver enzymes Procedures VIBRATION CONTROLLED TRANSIENT ELASTOGRAPHY (VCTE) GA LIVER ELASTOGRAPHY W/O IMAG W/I&R Kera Tatum PA-C [address] [place] [phone] Shaq Phan MD PhD [address] [place] [phone] Referral ID Status Reason Start Date Expiration Date V isits Requested Visits Authorized [id number] Authorized 12/07/2022 1 1 Encounter Details Date Type Department Care Team ([facility] Contact Info) Description 03/25/2023 14:30 EDT Procedure visit [facility] Gastroenterology - [address] [address] Shaq Phan MD PhD [address] [place] [phone] NAFLD (nonalcoholic fatty liver disease) (Primary Dx) Social History Tobacco Use Types [...] - Inhaled Oxygen Concentration - - Weight 107.1 kg (236 lb 3.2 oz) 03/25/2023 1412 EDT Height 175.3 cm (5' 9) 03/25/2023 1412 EDT Body Mass Index 34.88 03/25/2023 1412 EDT documented in this encounter [...] No 03/18/2020 documented as of this encounter Procedure Notes * Shaq Phan MD PhD - 03/25/2023 1430 EDT [facility] Hepatology Fibrosis Assessment Patient: Raul Trujillo : 1955 Multiple Sclerosis Nurse: Shaq Phan MD Referring Physician: Kera Godinez APRN, PA-C 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 Discussed procedure including risks and potential complications. Questions answered. Patient verbalizes understanding and wishes to proceed with Fibroscan assessment. Patient was placed in the supine position with right arm in maximum abduction to allow optimal exposure of right lateral abdomen. Patient was briefly assessed. Testing was performed in the mid-axillary location. 50Hz Shear Wave pulses were applied and the resulting Shear Wave and Propagation Speed was detected with a 3.5MHz ultrasonic signal, using the Fibroscan XL probe. Skin to liver capsule distance and liver parenchyma were accessed during the entire examination with the Fibroscan probe. Patient was instructed to breathe normally and abstain from sudden movements during the procedure. At least ten Shear Waves were produced; individual measurements of each Shear Wave were calculated. Patient tolerated the procedure well with no complications. Fibroscan Results: Median kPa: 18.3 IQR kPa: 3.4 Fractional IQR: 19% (goal is <30%) Success rate: 83% (goal is >60%) Predicted fibrosis stage: F4 Interpretation: Raul Trujillo is a 67 y.o. male with MASLD. 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) Shaq Phan MD PhD Cc: AUNDREA Grande APRN [address] [facility] [id number] documented in this encounter Plan of Treatment Upcoming Encounters Date Type Department Care Team (Late st Contact Info) Description 08/08/2024 13:00 EST Office Visit [facility] Gastroenterology - Main [address] [address] Kera Tatum PA-C [address] [facility], [address] [place] [phone] Scheduled Orders Name Type Priority Associated Diagnoses Orde r Schedule VIBRATION CONTROLLED TRANSIENT ELASTOGRAPHY (VCTE) GI Routine NAFLD (nonalcoholic fatty liver disease) Elevated liver enzymes Ordered: 12/07/2022 documented as of this encounter Visit Diagnoses Diagnosis NAFLD (nonalcoholic fatty liver disease)- Primary Other chronic nonalcoholic liver disease documented in this encounter Care Teams Laundry Route Driver Relationship Specialty Start Date End Date Denise Hooker APRN [address] [place] [address] PCP - General 09/13/18 documented as of this encounter
--- OUTSIDE RECORDS SUMMARY | 2024-03-04 00:25 | XMS_ITS | Encounter Summary ---
Author Organization [facility] Address [facility] [place] [address] Care Team Providers Care Vp Compliance Name Role Phone Denise Hooker APRN Primary Care Provider [phone] Encounter Details Date Type Department Care Team (Late st Contact Info) Description 02/26/2023 External [place] [address] Social History Tobacco Use Types Packs/Day Years Used Date Smoking Tobacco: Unknown Sex and Gender Information Value Date Recorded Sex Assigned at Not on file Gender Identity Not on file Sexual Orientation Not on file documented as of this encounter Plan of Treatment Not on file documented as of this encounter Procedures Procedure Name Priority Date/Time Associated Diagnosis Comments ECG SCAN Routine 02/26/2023 5:52 PM EDT documented in this encounter Results * Scan Doc: ECG (02/26/2023 5:52 PM EDT) Historical Provider MD SIMPSON MGR SCAN EX T ORDR/RSLT documented in this encounter Visit Diagnoses Not on filedocumented in this encounter Care Teams Vp Compliance Relationship Specialty Start Date End Date Denise Hooker APRN [address] [place] [address] PCP - General 09/05/13 documented as of this encounter
--- OUTSIDE RECORDS SUMMARY | 2024-03-04 00:25 | XMS_ITS | Encounter Summary ---
Author Organization [facility] Address [address] [place] [address] Care Team Providers Care Winch Truck Operator Name Role Phone Denise Hooker APRN Primary Care Provider [phone] Reason for Referral * Cardiology (Routine/Next Available) - Closed Specialty Diagnoses / Procedures Referred By Claire jacques Referred To Contact Diagnoses Coronary artery disease involving [place] heart with angina pectoris, unspecified vessel or lesion type ([facility]) Procedures TRANSTHORACIC ECHO (TTE) COMPLETE SC ECHO HEART XTHORACIC,COMPLETE W DOPPLER Ita Zimmer MD [address] [facility] [address] [place] [address] [facility] Referral ID Status Reason Start Date Expiration Date Visits Re quested Visits Authorized [id number] Closed 1 1 Reason for Visit * Reason Comments Heart Problem * Referral (Urgent) - Receiving Office to Obtain Authorization Specialty Diagnoses / Procedures Referred By Claire t Referred To Contact Cardiology Diagnoses Chest pain, unspecified Atherosclerotic heart disease of [place] coronary artery without angina pectoris Old myocardial infarction Non-ST elevation (NSTEMI) myocardial infarction ([facility]) Denise Hooker APRN [address] [facility] [address] [place] [address] [facility] Cardiology [address] [place] [address] Referral ID Status Reason Start Date Expiration Date Visits Requested Visits Authorized [id number] Receiving Office to Obtain Authorization 1 1 Encounter Details Date Type Department Care Team (Late st Contact Info) Description 03/24/2023 18:00 EDT Office Visit [facility] Cardiology - [address] [place], [place] [phone] Davian Almonte MD [address] [place] [phone] Coronary artery disease involving [place] heart with angina pectoris, unspecified vessel or lesion type ([facility]) (Primary Dx) Social History Tobacco Use Types [...] Sign Reading Time Taken Comments Blood Pressure 132/58 03/24/2023 1756 EDT Pulse 60 03/24/2023 1756 EDT Temperature - - Respiratory Rate - - Oxygen Saturation 96% 03/24/2023 1756 EDT Inhaled Oxygen Concentration - - Weight 106.6 kg (235 lb) 03/24/2023 1756 EDT Height - - Body Mass Index 34.69 12/01/2022 1354 EDT documented in this encounter Functional Status [...] Progress Notes * Davian Almonte MD - 03/24/2023 1800 EDT CARDIOLOGY - Initial Clinic Consultation HPI: Raul Trujillo is a 67 y.o. male with a past medical history of CAD (1st CA 1992 DESx2'04, x3 RCA '10, x3 LAD '10, x1 '16), Hypertension, hyperlipidemia, DEEPALI, diabetes, depression, htud 60py, NAFLD, here today to establish care. Former patient of Dr. Johnson who has a significant history of CA/NSTEMI with resultant interventions. He reports at the behest of his PCP after an episode 3 weeks ago during which he was outside () picking up weeds when he started to have subtle left-sided chest pain. He decided to call it aday as he was alarmed to have chest pain after several years (last intervention 2019) of being chest pain free. The pain is described as pressure and radiated to his jaw. He subsequently took some SLNTG, after which the pain subsided almost immediately. Since this event, patient has continued to remain active, and is watching his diet more since beingdiagnosed with NAFLD for which he follows with [facility]. He has been on a bike ride since the aforementioned event and biked 10 miles on a hot day with no chest pain at all. His PCP has since seen him,and has been concerned about a new murmur and this episode, so sent patient to see us. He is currently on a stable medication regimen of: -ASA 81 -Lisinopril 5 -Amlodipine 10 -Ranolazine 500 bid -Rosuvastatin 40 -prn SLNTG PMH PSH Past Medical History: Diagnosis Date ??? CAD (coronary artery disease) 09-10-09 PCI LAD prox MARY, LAD mid MARY, LAD distal BMS; 09-07-09 PCI MARY X 3 RCA; 2004 stents X2 ??? Diabetes mellitus ([facility]) oral agents ??? Diverticulitis ??? Hyperlipidemia ??? Hypertension ??? CA (myocardial infarction) ([facility]) (HCC) ([facility]) 1992, 2003 ??? Recurrent infections rt foot 5th toe Past Surgical History: Procedure Laterality Date ??? CARPAL TUNNEL RELEASE bilateral ??? ROTATOR CUFF REPAIR right, fall 2015 ??? 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 UMBILICAL HERNIA REPAIR Jun, 2009 Social History Social History Tobacco Use ??? Smoking status: Former Years: 20 Types: Cigarettes Quit date: 05/1994 Years since quittin.8 ??? Smokeless tobacco: Never Substance Use Topics ??? Alcohol use: Yes Comment: rare ??? Drug use: No Family History Family History [...] mouth daily. 30 Tab 11 ??? dapagliflozin 5 mg tablet Take 5 mg by mouth daily. ??? ERGOCALCIFEROL, VITAMIN D2, (VITAMIN D ORAL) Take by mouth daily (Patient not taking: Reported on 03/24/2023) ??? exenatide microspheres 2 mg/0.65 mL pen injector Inject 2 mg into the skin every 7 days. (Patient not taking: Reported on 12/01/2022) ??? HUMALOG MIX 75-25 KWIKPEN 100 unit/mL (75-25) injectable pen Inject 50 Units into the skin 2 times daily. ??? insulin glargine (LANTUS) 100 unit/mL injection Inject 30 Units into the skin 2 times daily. (Patient not taking: Reported on 12/01/2022) ??? isosorbide mononitrate (IMDUR) 30 mg CR tablet Take 30 mg by mouth every morning. 15 mg, 1/2 tab (Patient not taking: Reported on 12/01/2022) ??? lisinopril (PRINIVIL, ZESTRIL) 5 mg tablet Take 1 Tablet by mouth daily. ??? metFORMIN (GLUCOPHAGE) 1,000 mg tablet Take 1,000 mg by mouth 2 times daily. (Patient not taking: Reported on 12/01/2022) ??? METOPROLOL SUCCINATE ORAL Take 150 mg by mouth daily. Takes 3-50 mg. Tablets daily ??? multivit-min/folic/vit K/lycop (MEN'S 50 PLUS DAILY FORMULA ORAL) Take by mouth. ??? nitroGLYCERIN (NITROSTAT) 0.[address] 1 Tablet under the tongue as needed for Chest Pain. ??? NONFORMULARY THC gummy - 1/2 every night ??? ranolazine (RANEXA) 500 mg SR tablet Take 1 Tablet by mouth 2 times daily. ??? rosuvastatin (CRESTOR) 40 mg tablet Take 1 Tablet by mouth daily. ??? sertraline (ZOLOFT) 50 mg tablet Take 50 mg by mouth daily. (Patient not taking: Reported on 12/01/2022) ??? traZODone (DESYREL) 50 mg tablet Take 1 Tablet by mouth daily. No current facility-administered medications on file prior to visit. Allergies Allergies Allergen Reactions ??? Imdur [Isosorbide Mononitrate] Severe headache ??? Indoramin Headaches Physical Exam: VS: BP 132/58 (BP Cuff Location: Left arm, BP Patient Position: Sitting, BP Cuff Sizes: Adult, large) Pulse 60 Wt (!) 106.6 kg (235 lb) SpO2 96% BMI 34.69 kg/m?? Weight: Weight : (!) 106.6 kg (235 lb) BMI: Body mass index is 34.69 kg/m??. GEN: Well-appearing, calm, cooperative in no acute distress. Appears stated age. HEENT: Normocephalic, atraumatic, conjunctivae anicteric and non-injected. Resp: No increased work of breathing or use of accessory muscles. Lung clear to auscultation bilaterally without crackles or wheezes. CV: Normal rate, regular rhythm. Normal S1/S2. II/ systolic murmur best heard at RUSB, early peaking, not harsh. No carotid bruits. No peripheral edema. Pulses: Radial pulses 2+ Abd: Soft, non-distended, non-tender to palpation without guarding or rigidity, normal bowel soundspresent. Ext: Warm and well-perfused distally, no clubbing or cyanosis. Neuro: Alert and oriented x3, moving all four extremities against gravity, no dysarthria, facial droop or arm weakness. No tremor. Skin: Warm, dry, no diaphoresis or rash on exposed skin. Assessment/Plan: CAD: Extensive History of Revascularization: Recent Anginal Chest Pain: New Murmur: Patient is re-establishing care after an episode of typical anginal pain with radiation to neck after weeding on a hot day. This pain resolved with SLNTG and certainly is concerning for anginal episode. He has had active days since with no chest pain. Additionally, he has a new murmur, which may reflect AV leaflet thickening, but certainly merits elucidation. -Plan for formal TTE, if new rWMA, or other findings suggestive of recent ischemia, plan for NM PET -Patient couseled regarding symptomatology and when to call our clinic -If patient has another recurrence of CP, plan for NM PET -Continue current medication regimen -Obtain recent lipids -Continue current diabetic regimen Case discussed with Dr. Zimmer. Davian Almonte MD Toolroom Attendant * Ita Zimmer MD - 03/24/2023 1800 EDT I saw and examined the patient and discussed with Dr Almonte. I agree with the findings and plan as outlined, with the following additions. Examination s/f obesity and soft early-peaking SLADE at RUSB w/o radiation. He is tolerating 3 anti-anginals (metoprolol, amlodipine, ranolazine) with one breakthrough episode of CP that responded to a single SL NTG and has not recurred despite reported higher intensity activity. Advised on red flag sxs, he will monitor for recurrence on his walks and bike rides and at that point will consider intensification of ranolazine +/- MPI for further evaluation. He is otherwise tolerating therapies directed at secondary prevention. Ita Zimmer MD Attending Barbering Instructor, [facility] documented in this encounter Plan of Treatment Upcoming Encounters Date Type Department Care Team (Late st Contact Info) Description 08/08/2024 13:00 EST Office Visit [facility] Gastroenterology - [facility] [address] [facility] [address] Kera Tatum PA-C [address] [facility], [address] [place] [address] documented as of this encounter Results * TRANSTHORACIC ECHO (TTE) COMPLETE W/DOPPLER W/CF NO CONTRAST (10/15/2023 14:41 EDT) Mitral deceleration time 268 ms MERGE CARDIO [...] color Doppler.The study was interpreted by [facility]. Pertinent images and [...] Visit Diagnoses Diagnosis Coronary artery disease involving [place] heart with angina pectoris, unspecified vessel or lesion type (HCC-CMS)- Primary Coronary artery disease involving [place] heart with angina pectoris, unspecified vessel or lesion type (HCC-CMS) documented in this encounter Care Teams Winch Truck Operator Relationship Specialty Start Date End Date Denise Hooker APRN [address] [place] [address] PCP - General 09/13/18 documented as of this encounter
--- OUTSIDE RECORDS SUMMARY | 2024-03-04 00:25 | XMS_ITS | Encounter Summary ---
Author Organization [facility] Address [address] [place] [address] Care Team Providers Care Powder Room Attendant Name Role Phone Lilia Hookerhrcharu Easton JENNIFER Primary Care Provider [phone] Reason for Visit * Reason Onset Date Comments Follow-up 01/05/2024 Encounter Details Date Type Department Care Team ([facility] Contact Info) Description 01/05/2024 Telephone [facility] Cardiology - [address] [place] [address] Davian Almonte MD [address] [place], [place] [phone] Follow-up Social History Tobacco Use Types Packs/Day Years [...] encounter Miscellaneous Notes * Telephone Encounter - Davian Almonte MD - 01/05/2024 3299 EDT Telephone Note Called Mr. Trujillo to follow up on recent ER visit during which he was diagnosed with pneumonia and had some associated chest pain that was worked up with objectively negative workup. He is now doing well, recovering well from pneumonia on azithromycin, and without any further instances of chest pain. No further workup needed, plan to follow up in 1 yr. Davian Almonte MD Bait Tier documented in this encounter Plan of Treatment Upcoming Encounters Date Type Department Care Team (Late st Contact Info) Description 08/08/2024 13:00 EST Office Visit [facility] Gastroenterology - [address] [address] Kera Tatum PA-C [address] [facility], [address] [place] [phone] documented as of this encounter Visit Diagnoses Not on filedocumented in this encounter Care Teams Powder Room Attendant Relationship Specialty Start Date End Date Denise Hooker APRN [address] [place] [address] PCP - General 09/13/18 documented as of this encounter
--- OUTSIDE RECORDS SUMMARY | 2024-03-04 00:25 | XMS_ITS | Encounter Summary ---
Author Name [facility] [facility] [facility] [place] Address [address] [place] [address] Care Team Providers Care Wood Heel Flap Trimmer Name Role Phone WARNER ORTIZ Primary Care [...] PLAN WEIDM SADIE HDHP Jul 20, 2009 [id number] SRINIVAS BATISTAPema PATIENT [employer] ([id number]) PRESCRIPT ION Jul 20, 2017 [id number] SRINIVAS BATISTA KISHAN PATIENT MEDICARE (WNR) MEDICARE (M) PART B Apr 19, 2020 PART B [id number] LESTERSRINIVAS HOLLEY PATIENT MEDICARE (WNR) MEDICARE (M) PART A Oct 19, 2019 PART A [id number] SRINIVAS BATISTA PATIENT RESTAT PRESCRIPT ION CBA BLUE November 17, 2009 [id number] SRINIVAS BATISTA PATIENT Selected Encounter This section includes the information on record at [place] for the Encounter. Date/Time Encounter Type Encounter Description Reason Pro vider Source Dec 21, 2023 12:57 PM Outpatient Encounter ADMIN PAT ACTIVTIES (MASNONCT) IHE Encounter Template Text not used by [place] Plan of Treatment: Future Appointments (+ 6 months) and Future Tests (+/- 45 days) The Plan of Treatment section includes future care activities for the patient from all [place] treatmentfacilities. This section includes future appointments and future orders which are active, pending or scheduled. Future Appointments This section includes appointments that were scheduled to occur 6 months from the date of the Encounter, up to a maximum of 20 appointments. The data comes from all [place] treatment facilities. Appointment Date/Time Appointment Type Appointme nt Facility Name Dec 30, 2023 11:30 AM AMBULATORY - NONE [facility] Mar 02, 2024 08:20 AM AMBULATORY - NONE [facility] Mar 15, 2024 04:00 PM AMBULATORY - RE[facility]AB [facility] Mar 23, 2024 11:30 AM AMBULATORY - SURGERY [facility] Social History: Smoking Status (Most current) and Tobacco Use (All prior to encounter date) This section includes the most current, and the historical, smoking and tobacco- related health factors from the [place] facility where the Encounter took place. Current Smoking Status This section includes the most current smoking, or tobacco-related health factor, from the [place] facility where the Encounter took place. Date/Time Current Smoking Status Comment Yamilet ity Jan 26, 2003 10:05 AM QUIT TOBACCO USE > 7 YEARS AGO [facility] Tobacco Use History This section includes a history of the smoking, or tobacco-related health factors, that were collected on or before the date of the Encounter. The data comes from the [place] facility where the Encounter took place. Date/Time Smoking Status/Tobacco Use Comment F acility November 29, 2002 01:00 PM HISTORY OF SMOKING [facility] Advance Directives: All historical and current Section Date Range: From patient's date of to the date document was created. This section includes ALL of a patient's completed or amended [place] Advance and Rescinded Directives. The entries below indicate that a directive exists for the patient, but an actual copy is not included with this document. The data comes from all [place] facilities. Date Advance Directives Provider Source November 23, 2017 ADVANCE DIRECTIVE JOI DEVRIES [facility] Encounter Notes: All associated encounter notes This section contains the clinical notes associated to the Encounter. Date/Time Encounter Note(s) Provider Source Dec 21, 2023 12:57 PM ADMINISTRATIVE NOT E: LOCAL TITLE: CCC: SCHEDULING ADMINISTRATION STANDARD TITLE: ADMINISTRATIVE NOTE DATE OF NOTE: DEC 21, 2023@12:57:53 ENTRY DATE: DEC 21, 2023@12:57:54 AUTHOR: AUTUMN EPMBERTON COSIGNER: URGENCY: STATUS: COMPLETED CCC: SCHEDULING ADMINISTRATION Has ADDENDA Patient Demographics Patient Name: CLAUDIA BATISTA Patient Primary Phone: [phone] Patient Primary [address] [address] [place] [id number] Patient : 1955 Patient Age: 68 Caller/Recipient Relation to Patient: Self Administrative Administrative Note Reason: Paperwork Request Administrative Note Comments: VET is calling to request a referral for dermatology; VET states he has moles that are growing and changing; TW transferred to TRIAGE line; Please call to discuss [phone] /jayce/ AUTUMN HENDRICKS [facility] AMSA Signed: 12/21/2023 12:57 Receipt Acknowledged By: 12/21/2023 13:12 /jayce/ MARTINE ANTONY LPN 12/21/2023 13:47 /es/ OMEGA MENCHACA Registered Nurse 12/21/2023 ADDENDUM STATUS: COMPLETED MSAS are alerted to schedule /jayce/ MARTINE ANTONY LPN Signed: 12/21/2023 13:12 [facility]
--- OUTSIDE RECORDS SUMMARY | 2024-03-04 00:25 | XMS_ITS | Encounter Summary ---
Author Organization [facility] Address [address] [place] [address] Care Team Providers Care Cement Finisher Apprentice Name Role Phone Denise Hooker JENNIFER Primary Care Provider [phone] Reason for Referral * Laboratory Services (Routine/Next Available) - New Request Specialty Diagnoses / Procedures [facility] Referred To Contact Diagnoses Coronary artery disease involving [place] heart with angina pectoris, unspecified vessel or lesion type ([facility] Procedures LIPID PROFILE (INCLUDES CHOLESTEROL, TRIGLYCERIDES, HDL, LDL) Ita Zimmer MD [address] [facility] [address] [place] [phone] Referral ID Status Reason Start Date Expiration Date V isits Requested Visits Authorized [id number] New Request 09/30/2023 1 1 Reason for Visit * Reason Onset Date Comments Pre-visit Orders 09/30/2023 Encounter Details Date Type Department Care Team ([facility] st Contact Info) Description 09/30/2023 Telephone [facility] - [facility] [address] [place] [address] Davian Almonte MD [address] [place], [place] [address] Pre-visit Orders Social History Tobacco Use Types Packs/Day Years [...] Telephone Encounter - Tala Llanes RN - 09/30/2023 0848 EDT Images from the original note were not included. Davian Almonte MD Staula, Meghan, RN Sure! Thank would be great! Thank you Tala! -Davian Previous Messages ----- Message ----- From: Tala Llanes RN Sent: 09/29/2023 9:39 EDT To: Davian Almonte MD Most recent lipids for this pt are from July 2022. Do you want repeat lipids prior to when you see him 10/14? Floor Cleaner spoke with pt who stated to please fax the lab order to [facility] at [phone] documented in this encounter Plan of Treatment Upcoming Encounters Date Type Department Care Team (Late st Contact Info) Description 08/08/2024 13:00 EST Office Visit [facility] Gastroenterology - [facility] [address], [place] [id number] Kera Tatum PA-C [address] [facility], [facility], [address] [place] [phone] Scheduled Orders Name Type Priority Associated Diagnoses Orde r Schedule LIPID PROFILE (INCLUDES CHOLESTEROL, TRIGLYCERIDES, HDL, LDL) Lab Routine Coronary artery disease involving [place] heart with angina pectoris, unspecified vessel or lesion type (HCC-CMS) Expected: 09/30/2023 (Approximate), Expires: 09/29/2024 documented as of this encounter Visit Diagnoses Diagnosis Coronary artery disease involving [place] heart with angina pectoris, unspecified vessel or lesion type (HCC-CMS)- Primary documented in this encounter Care Teams Cement Finisher Apprentice Relationship Specialty Start Date End Date Denise Hooker APRN [address] [place] [address] PCP - General 09/13/18 documented as of this encounter
--- OUTSIDE RECORDS SUMMARY | 2024-03-04 00:25 | XMS_ITS | Encounter Summary ---
Author Organization [facility] Address [address] [place] [address] Care Team Providers Care Construction Craft Laborer Name Role Phone Denise Hooker APRN Primary Care Provider [phone] Reason for Referral * Referral (Routine/Next Available) - Receiving Office to Obtain Authorization Specialty Diagnoses / Procedures Referred By Claire jacques Referred To Contact Gastroenterology Diagnoses Other cirrhosis of liver (HCC-CMS) Procedures UPPER ENDOSCOPY (EGD) Kera Tatum PA-C [address] [place] [phone] [address] Referral ID Status Reason Start Date Expiration Date Visits Requested Visits Authorized [id number] Receiving Office to Obtain Authorization 02/11/2024 1 1 * Radiology Services (Routine/Next Available) - Authorization Not Required Specialty Diagnoses / Procedures Referred By Claire jacques Referred To Contact Diagnostic Radiology Diagnoses Other cirrhosis of liver (HCC-CMS) Procedures US ABDOMEN LIMITED Kera Tatum PA-C [address] [address] Referral ID Status Reason Start Date Expiration Date Visits Requested Visits Authorized [id number] Authorization Not Required 02/11/2024 1 1 Reason for Visit * Reason Comments Follow-up EST/ FU OV Encounter Details Date Type Department Care Team (Late st Contact Info) Description 02/11/2024 13:40 EDT Office Visit [facility] Gastroenterology - [address] [address] Kera Tatum PA-C [address] [place] [address], [facility], [address] [place] [address] Other cirrhosis of liver (HCC-CMS) (Primary Dx) Social History Tobacco Use Types [...] EDT Pulse 81 02/11/2024 1316 EDT Temperature - - Respiratory Rate - - Oxygen Saturation - - Inhaled Oxygen Concentration - - Weight 108.2 kg (238 lb 9.6 oz) 02/11/2024 1316 EDT Height - - Body Mass Index 35.24 10/15/2023 1450 EDT documented in this encounter [...] as of this encounter Progress Notes * Kera Tatum PA-C - 02/11/2024 1340 EDT Gastroenterology & Hepatology Follow-up Visit HPI: Raul Trujillo is a 67 y.o. 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 Patient underwent fibroscan 03/25/23 which revealed median kpa 18.3, consistent with cirrhosis. Labs 12/01/22 ALT 70, AST 38 rest of panel WNL PLT 268 FIB-4 1.17 INR 1.0 Hepatitis C Ab negative, Hep B core Ab negative, Hep B sAb negative, Hep B sAg negative Imaging: US abdomen 01/2020: IMPRESSION 1. Hepatomegaly and hepatic steatosis with areas of focal fatty sparing adjacent to the gallbladderfossa and falciform ligament. 2. Echogenic appearance of the pancreas suggests fatty replacement. 3. Right renal cyst. US abdomen 03/2021, in comparison to US in 2019, showing diffuse increased echogenicity of the liver. Findings consistent with hepatic steatosis. Focal fatty sparing adjacent to gallbladder. The livermeasures 20 cm. Hepatopedal flow in the portal vein. 5 mm echogenic immobile focus along the gallbladder wall, which may represent an adherent stone or polyp. No evidence of wall thickening. No pericholecystic fluid identified. CBD <7mm. No intrahepatic biliary duct dilation. fibroscan in 2020 which showed 11.7kpa, F3 fibrosis. Colonoscopy last year normal no polyps; repeat 10 years He denies jaundice, red or black stools, hematemesis, nausea, vomiting, edema, confusion. PMH: As stated in HPI. ROS: A 10-point ROS was performed and is negative other than stated in HPI. Current Outpatient Medications: amlodipine (NORVASC) 10 mg tablet, Take 1 Tab by mouth daily., Disp: 30 Tab, Rfl: 11 aspirin chewable 81 mg tablet, Take 1 Tab by mouth daily., Disp: 30 Tab, Rfl: 11 dapagliflozin 5 mg tablet, Take 5 mg by mouth daily., Disp: , Rfl: ERGOCALCIFEROL, VITAMIN D2, (VITAMIN D ORAL), Take by mouth daily. (Patient not taking: Reported on10/15/2023), Disp: , Rfl: exenatide microspheres 2 mg/0.65 mL pen injector, Inject 2 mg into the skin every 7 days. (Patient not taking: Reported on 12/01/2022), Disp: , Rfl: HUMALOG MIX 75-25 KWIKPEN 100 unit/mL (75-25) injectable pen, Inject 50 Units into the skin 2 timesdaily., Disp: , Rfl: insulin glargine (LANTUS) 100 unit/mL injection, Inject 30 Units into the skin 2 times daily. (Patient not taking: Reported on 12/01/2022), Disp: , Rfl: isosorbide mononitrate (IMDUR) 30 mg CR tablet, Take 30 mg by mouth every morning. 15 mg, 1/2 tab (Patient not taking: Reported on 12/01/2022), Disp: , Rfl: lisinopril (PRINIVIL, ZESTRIL) 5 mg tablet, Take 1 Tablet by mouth daily., Disp: , Rfl: magnesium oxide (MAG-OX) 400 mg (241.3 mg magnesium) tablet, Take 1 Tablet by mouth at bedtime., Disp: , Rfl: metFORMIN (GLUCOPHAGE) 1,000 mg tablet, Take 1,000 mg by mouth 2 times daily. (Patient not taking: Reported on 12/01/2022), Disp: , Rfl: METOPROLOL SUCCINATE ORAL, Take 150 mg by mouth daily. Takes 3-50 mg. Tablets daily, Disp: , Rfl: multivit-min/folic/vit K/lycop (MEN'S 50 PLUS DAILY FORMULA ORAL), Take by mouth., Disp: , Rfl: nitroGLYCERIN (NITROSTAT) 0.4 mg SL tablet, Place 1 Tablet under the tongue as needed for Chest Pain., Disp: , Rfl: NONFORMULARY, THC gummy - 1/2 every night (Patient not taking: Reported on 10/15/2023), Disp: , Rfl: ranolazine (RANEXA) 500 mg SR tablet, Take 1 Tablet by mouth 2 times daily., Disp: , Rfl: rosuvastatin (CRESTOR) 40 mg tablet, Take 1 Tablet by mouth daily., Disp: , Rfl: sertraline (ZOLOFT) 50 mg tablet, Take 50 mg by mouth daily. (Patient not taking: Reported on 12/01/2022), Disp: , Rfl: traZODone (DESYREL) 50 mg tablet, Take 1 Tablet by mouth daily., Disp: , Rfl: Allergies Allergen Reactions Imdur [Isosorbide Mononitrate] Severe headache Indoramin Headaches Last Vitals: Patient Vitals for the past 24 hrs: BP Pulse Weight 02/11/24 1316 (!) 152/64 81 (!) 108.2 kg (238 lb 9.6 oz) General appearance: Sitting comfortably in exam room chair, in no acute distress HEENT: Normocephalic, atraumatic. No scleral icterus Pulm: Normal respiratory effort. CV: Regular rate and rhythm. Abdomen: Obese abdomen. Nontender to palpation without rebound or guarding. Skin: No jaundice, no caput medusae, no spider angiomata Extremities: No edema Neurologic: A&Ox4, no asterixis Impression: Raul Trujillo is a 67 y.o. 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 His last FIB-4 was found to be 1.17 which does not reveal risk of fibrosis and is incongruent with fibroscan finding. He was found to have F3 fibrosis on previous fibroscan a few years ago. We discussed liver biopsy would be definitive for diagnosis however patient declines and would like to continue with management. Recommend monitoring of liver function including CMP, CBC, INR every 6 months with calculation of MELD, HCC surveillance via US sonography e very 6 months. He is also due for variceal surveillance via EGD. Will order iron studies today in evaluation of iron overload as other etiology of liver disease. He denies decompensating events. All questions answered and patient expressed understanding. Plan: 1. 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: -- INR, CMP, CBC today and every 6 months -- MELD -- Iron studies -- Due for HCC screening US sonography, will schedule today, q 6 months -- Continue with an alcohol-free, sodium-restricted diet -- Recommend optimize nutrition and exercise with goal of weight loss; recommend meet with PCP; consider referral to it technical architect -- Hepatitis A and B vaccination series via primary care provider if not already immunized -- Due for variceal surveillance upper endoscopy with MAC -- Follow-up in hepatology clinic in 6 months Kera Tatum PA-C Gastroenterology & Hepatology I spent a total of 40 minutes on the date of this encounter meeting with the patient and reviewing documentation/coordinating care as described in the above note. documented in this encounter Plan of Treatment Upcoming Encounters Date Type Department Care Team (Late st Contact Info) Description 08/08/2024 13:00 EST Office Visit [facility] Gastroenterology - [address] [address] Kera Tatum PA-C [address] [place] [address], [address] [place] [address] Scheduled Orders Name Type Priority Associated Diagnoses Orde r Schedule US ABDOMEN LIMITED Imaging Routine Other cirrhosis of liver (HCC-CMS) Expected: 03/13/2024 (Approximate), Expires: 08/13/2025 UPPER ENDOSCOPY (EGD) GI Routine Other cirrhosis of liver (HCC-CMS) Expected: 03/13/2024 (Approximate), Expires: 08/13/2025 documented as of this encounter Results * PROTIME (02/11/2024 15:02 EDT) I.N.R. 1.1 0.9 - 1.1 Ratio 02/11/2024 16:15 [facility] Pro Time 12.1 9.7 - 12.8 secs 02/11/2024 16:15 [facility] Blood VENOUS BLOOD / Unknown Venipuncture / Unknown 02/11/2024 15:02 EDT 02/11/2024 15:48 EDT Narrative [facility] - 02/11/2024 16:15 EDT Moderate Intensity Coumadin INR = 2.0-3.0 Adjustments in anticoagulant therapy dose should be based on the INR and NOT on the Protime. Kera Tatum PA-C HEMATOLOGY & PF4 ORDERABLES [facility] [address] [place] [address] * (ABNORMAL) COMPREHENSIVE METABOLIC PANEL (CMP) (02/11/2024 15:02 EDT) [facility] Sodium 141 136 - 145 mmol/L 02/11/2024 16:49 [facility] Potassium 4.6 3.5 - 5.0 mmol/L 02/11/2024 16:49 [facility] Chloride 100 96 - 110 mmol/L 02/11/2024 16:49 [facility] CO2 Total 24 22 - 32 mmol/L 02/11/2024 16:49 [facility] Glucose 185(H) 70 - 99 mg/dl 02/11/2024 16:49 [facility] BUN 19 10 - 26 mg/dL 02/11/2024 16:49 [facility] Creatinine 0.98 0.66 - 1.25 mg/dL 02/11/2024 16:49 [facility] eGFR 83 >60 mL/min/1.7 3m2 02/11/2024 16:49 [facility] Total Protein 7.2 6.3 - 8.2 g/dL 02/11[facility]2024 [facility] Albumin 4.6 3.4 - 4.9 g/dL 02/11/2024 16:49 [facility] Alkaline Phosphatase 103 38 - 126 U/L 02/11/2024 16:49 [facility] AST 29 15 - 46 U/L 02/11/2024 16:49 [facility] ALT 43 <50 U/L 02/11/2024 16:49 [facility] Bilirubin, Total 0.7 <1.4 mg/dL 02/11/20 16:49 [facility] Calcium 9.5 8.5 - 10.5 mg/dL 02/11/2024 16:49 [facility] Albumin/Globulin Ratio 1.8 1.0 - 2.5 02/11/2024 16:49 [facility] Anion Gap 17(H) 5 - 14 mmol/L 02/11/2024 16:49 [facility] Blood VENOUS BLOOD / Unknown Venipuncture / Unknown 02/11/2024 15:02 EDT 02/11/2024 15:58 EDT Kera Tatum PA-C CHEMISTRY & B LOOD GAS ORDERABLES [facility] [address] [place] [phone] * COMPLETE BLOOD COUNT (02/11/2024 15:02 EDT) WBC 6.82 4.00 - 10.40 K/cmm 02/11/2024 16:23 [facility] RBC 5.31 4.36 - 5.78 M/cmm 02/11/2024 16:23 [facility] Hemoglobin 15.3 13.8 - 17.3 g/dL 02/11/2024 16:23 [facility] HCT 45.2 39.5 - 50.2 % 02/11/2024 16:23 [facility] MCV 85 81 - 95 fL 02/11/2024 16:23 EDT [facility] MCH 28.8 27.6 - 33.0 pg 02/11/2024 16:23 EDT [facility] MCHC 33.8 32.8 - 36.4 g/dL 02/11/2024 16:23 EDT [facility] RDW-CV 12.8 <14.2 % 02/11/2024 16:23 EDT [facility] RDW-SD 39.7 <46.0 fl 02/11/2024 16:23 EDT [facility] PLT 220 141 - 377 K/cmm 02/11/2024 16:23 T [facility] MPV 10.7 9.5 - 12.7 fL 02/11/2024 16:23 EDT [facility] Blood VENOUS BLOOD / Unknown Venipuncture / Unknown 02/11/2024 15:02 EDT 02/11/2024 15:57 EDT Kera Tatum PA-C HEMATOLOGY & PF4 ORDERABLES [facility] [address] [place] [address] documented in this encounter Visit Diagnoses Diagnosis Other cirrhosis of liver (HCC-CMS)- Primary documented in this encounter Historical Medications * This list may reflect changes made after this encounter. Medication Sig Dispensed Refills Start Date End Date insulin glargine U-300 conc (TOUJEO MAX U-300 SOLOSTAR) 300 unit/mL (3 mL) subcutaneous pen Inject into the skin once daily. added in this encounter Care Teams Construction Craft Laborer Relationship Specialty Start Date End Date Denise Hooker APRN [address] [place], [place] [id number] PCP - General 09/13/18 documented as of this encounter
--- OUTSIDE RECORDS SUMMARY | 2024-03-04 00:26 | XMS_ITS | Encounter Summary ---
Author Organization [facility] Address [address] [place] [address] Care Team Providers Care Metal Furniture Polisher Name Role Phone Denise Hooker JENNIFER Primary Care Provider [phone] Reason for Visit * Reason Comments Follow-up red Encounter Details Date Type Department Care Team ([facility] Contact Info) Description 04/17/2020 13:00 EDT Office Visit [facility] [address] [place] [address] Letty Mackey MD [address] [place] [id number] NAFLD (nonalcoholic fatty liver disease) (Primary Dx) [...] 10:17 EST Sexual Orientation Not on file COVID-19 Exposure Response Date Recorded In the last month, have you been in contact with someone who was confirmed or suspected to have Coronavirus / COVID-19? No / Unsure 04/17/2020 13:56 EDT documented as of this encounter Last Filed [...] as of this encounter Progress Notes * Tej Garcia MD - 04/17/2020 1300 EDT [...] years ago, also with elevated liver tests. Fibroscan in Aug 2019 read as F3 (12.6kPa). ?? Since he was last seen, he was hospitalized for an NSTEMI and underwent LHC which noted spasm and patent stents. EF was preserved. He had some NSVT while hospitalized and was discharged with a 30 dayHolter monitor. He has felt well since discharge. He denies any issues with jaundice, edema, abdominal distention, confusion, or blood in stool. He has lost 6lbs over the past 2-3 months which he attributes to eating healthier. His sciatica has been acting up which has limited his ability to exercise. He was laid off with [employer], so has decided to have an early assisted. He is planning to spend this winter in [place]. He does not have a doctor [facility], but [facility] He reportshis most recent HbA1c was about 7. Patient reports ongoing issues with diarrhea. He has 2 formed stools a day and an additional 2-3 watery stools a day. Stools are associated with a great deal of urgency. No nocturnal bowel movements.Diarrhea has been present for years, but frequency increased over the past 1-2 years. He has gottensymptom relief from probiotics and eating more yogurt [...] RCA; 2003 stents X2 ??? Diabetes mellitus ([facility]) oral agents ??? Diverticulitis ??? Hyperlipidemia ??? Hypertension ??? [place] (myocardial infarction) ([facility]) 1992, 2003 ??? Recurrent infections [...] Types: Cigarettes Quit date: 05/1994 Years since quittin. ??? Smokeless tobacco: Never Used Substance and Sexual Activity ??? Alcohol use: Yes Comment: rare ??? Drug use: No ??? Sexual activity: Not on file Lifestyle ??? Physical activity Days per week: Not on file Minutes per session: Not on file ??? Stress: Not on file Relationships ??? Social connections Talks on phone: Not on file Gets together: Not on file Attends [employer] service: Not on file Active member of [...] and hepatomegaly. Echogenic appearance of pancreas suggests fattyreplacement Bloodwork 07/26/19 Na 139 Cr 1.04 TBili 0.5 AST 40 ALT 55 Alk Phos 82 Albumin 4.6 Labs: 04/17/20 141/4.3 101/ 17/0.79 AST/ALT 38/60 Tbili 0.5 Alk phosph [...] had a recent NSTEMI, potentially related to vasospasmvs small vessel disease. We discussed his risk of HCC with advanced hepatic fibrosis and metabolic risk factors such as diabetes. We discussed the importance of weight loss to improve his fatty liverand other metabolic comorbidities. We also discussed that the primary cause of in NAFLD is CVdisease. Recommendations: -RUQ US every 6 month for HCC screening given advanced hepatic fibrosis -Next due Jul 2020. Informed patient he needs to find a doctor in [place] to help coordinate his screening -CMP, CBC, [...] is planning to spend the winter in [place] This patient was seen and examined with Dr. Narendra Garcia MD Gastroenterology & Hepatology Fellow #[id number] GI Attending Addendum: Patient seen and examined [...] hospital discharge- following with cardiology. On exam, pleasant,NAD, MMM, RRR, CTA, soft, obese abdomen, no distension, no LE edema We discussed the implications of being F3 on Fibroscan, specifically the risk of developing HCC andthe need for imaging of his liver every 6-12 months for HCC screening- last ultrasound 01/2020- willplan for repeat ultrasound in 2020. We discussed the importance of diet, exercise, and weight loss.We discussed the importance of glycemic control. We also discussed how the leading cause of mortality in patients with fatty liver is related to cardiovascular disease- stressed the importance of cardiology follow up and risk factor modification. Will plan for follow up in 6 months, or sooner if needed. Letty Mackey MD Gastroenterology and Hepatology [facility] documented in this encounter Plan of Treatment Upcoming Encounters Date Type Department Care Team (Late st Contact Info) Description 08/08/2024 13:00 EST Office Visit [facility] [address] [address] Kera Tatum PA-C [address] [facility] [place], [facility], [address] [place] [address] documented as of this encounter Results * (ABNORMAL) COMPLETE BLOOD COUNT (04/17/2020 14:09 EDT) WBC 7.85 4.00 - 10.40 K/cmm 04/17/2020 14:34 [facility] RBC 5.14 4.36 - 5.78 M/cmm 04/17/2020 14:34 [facility] Hemoglobin 14.1 13.8 - 17.3 gm/dL 04/17/2020 14:34 [facility] HCT 43.4 39.5 - 50.2 % 04/17/2020 14:34 [facility] MCV 84 81 - 95 fl 04/17/2020 14:34 [facility] MCH 27.4(L) 27.6 - 33.0 pg 04/17/2020 14:34 [facility] MCHC 32.5(L) 32.8 - 36.4 gm/dL 04/17/2020 14:34 [facility] RDW-CV 13.2 <14.2 % 04/17/2020 14:34 [facility] RDW-SD 41.2 <46.0 fl 04/17/2020 14:34 [facility] PLT 269 141 - 377 K/cmm 04/17/2020 14:34 [facility] MPV 10.1 9.5 - 12.7 fl 04/17/2020 14:34 [facility] Blood VENOUS BLOOD / Unknown Venipuncture / Unknown 04/17/2020 14:09 EDT 04/17/2020 14:26 EDT Letty Mackey MD HEMATOLOGY & PF4 ORD ERABLES [facility] [address] [place] [address] * PROTIME (04/17/2020 14:09 EDT) I.N.R. 1.1 0.9 - 1.1 Ratio 04/17/2020 14:46 [facility] Pro Time 12.3 10.3 - 13.4 secs 04/17/2020 14:46 [facility] Blood VENOUS BLOOD / Unknown Venipuncture / Unknown 04/17/2020 14:09 EDT 04/17/2020 14:26 EDT Narrative [facility] - 04/17/2020 14:46 EDT Moderate Intensity Coumadin INR = 2.0-3.0 Adjustments in anticoagulant therapy dose should be based on the INR and NOT on the Protime. Letty Mackey MD HEMATOLOGY & PF4 ORD ERABLES [facility] [address] [place] [address] * (ABNORMAL) COMPREHENSIVE METABOLIC PANEL (CMP) (04/17/2020 14:09 EDT) Sodium 141 136 - 145 mEq/L 04/17/2020 15:00 [facility] Potassium 4.3 3.5 - 5.0 mEq/L 04/17/2020 15:00 [facility] Chloride 101 96 - 110 mEq/L 04/17/2020 15:00 [facility] CO2 Total 29 22 - 32 mEq/L 04/17/2020 15:00 [facility] Glucose 148(H) 70 - 100 mg/dL 04/17/2020 15:00 [facility] BUN 17 10 - 26 mg/dL 04/17/2020 15:00 [facility] Creatinine 0.79 0.66 - 1.25 mg/dL 04/17/2020 15:00 [facility] eGFR 94 >60 mL/min/1.7 3m2 04/17/2020 15:00 [facility] Comment:eGFR calculated rut yadav CKD-EPI equation for non- Americans. Multiply eGFR by 1.16 for patients. Total Protein 7.1 6.3 - 8.2 g/dL 04/17/2020 15:00 [facility] Albumin 4.3 3.4 - 4.9 g/dL 04/17/2020 15:00 [facility] Alkaline Phosphatase 73 38 - 126 U/L 04/17/2020 15:00 [facility] AST 38 15 - 46 U/L 04/17/2020 15:00 EDT [facility] ALT 60(H) <50 U/L 04/17/2020 15:00 EDT [facility] Bilirubin, Total 0.5 <1.4 mg/dL 04/17/20 20 15:00 EDT [facility] Calcium 9.8 8.5 - 10.5 mg/dL 04/17/2020 15:00 EDT [facility] Calculated Calcium 9.6 8.5 - 10.5 mg/dL 04/17/2020 15:00 EDT [facility] Blood VENOUS BLOOD / Unknown Venipuncture / Unknown 04/17/2020 14:09 EDT 04/17/2020 14:26 EDT Letty Mackey MD CHEMISTRY & BLOOD GA S ORDERABLES [facility] [address] [place] [address] documented in this encounter Visit Diagnoses Diagnosis NAFLD (nonalcoholic fatty liver disease)- Primary Other chronic nonalcoholic liver disease documented in this encounter Care Teams Metal Furniture Polisher Relationship Specialty Start Date End Date Denise Hooker APRN [address] [place] [address] PCP - General 09/13/18 documented as of this encounter
--- OUTSIDE RECORDS SUMMARY | 2024-03-04 00:26 | XMS_ITS | Encounter Summary ---
Author Organization [facility] Address [address] [place] [address] Care Team Providers Care Detention Officer Name Role Phone Denise Hooker APRN Primary Care Provider [phone] Reason for Referral * Referral (Routine/Next Available) - Authorized Specialty Diagnoses / Procedures Referred By Contact Referred To Contact Gastroenterology and Hepatology Diagnoses NAFLD (nonalcoholic fatty liver disease) Elevated liver enzymes Procedures VIBRATION CONTROLLED TRANSIENT ELASTOGRAPHY (VCTE) CA LIVER ELASTOGRAPHY W/O IMAG W/I&R Kera Tatum PA-C [address] [address] Shaq Phan MD PhD [address] [address] Referral ID Status Reason Start Date Expiration Date V isits Requested Visits Authorized [id number] Authorized 12/07/2022 1 1 Reason for Visit * Reason Comments New Patient Visit Fatty liver * Referral (Routine) - Receiving Office to Obtain Authorization Specialty Diagnoses / Procedures Referred By Contact Referred To Contact Gastroenterology and Hepatology Diagnoses Fatty liver disease, nonalcoholic Elevated LFTs Denise Hooker APRN 26 [facility] [address] [place] [address] [facility] [facility] [address] [place] [address] Referral ID Status Reason Start Date Expiration Date Visits Requested Visits Authorized [id number] Receiving Office to Obtain Authorization 1 1 Encounter Details Date Type Department Care Team (Late st Contact Info) Description 12/01/2022 14:00 EDT Office Visit [facility] Gastroenterology - [facility] [address] [place] [address] Kera Tatum PA-C [address] [place] [address], [address] [place] [address] NAFLD (nonalcoholic fatty liver disease) (Primary Dx); Elevated liver enzymes Social History Tobacco Use [...] Sign Reading Time Taken Comments Blood Pressure 150/66 12/01/2022 1354 EDT Pulse 68 12/01/2022 1354 EDT Temperature - - Respiratory Rate - - Oxygen Saturation - - Inhaled Oxygen Concentration - - Weight 107 kg (236 lb) 12/01/2022 1354 EDT Height 175.3 cm (5' 9.02) 12/01/2022 1354 EDT Body Mass Index 34.83 12/01/2022 1354 EDT documented in this encounter [...] Progress Notes * Kera Tatum PA-C - 12/01/2022 1400 EDT Gastroenterology & Hepatology Initial Visit Reason for Referral: NAFLD PCP: Denise Hooker HPI: Raul Trujillo is a 67 y.o. male with a past medical history of CAD, NSTEMI (2015, 2019, 9 stents placed), Hypertension, hyperlipidemia, DEEPALI, diabetes, depression, anxiety here today for consultation regarding NAFLD. Patient previously followed by Dr. Mackey, last seen 11/2019. Patient endorses around after he had undergone work up for dx PR had blood work done and imaging that showed elevated LFTs and was told he has fatty liver. Following last visit with Dr. Mackey, patient had fibroscan done that was notable for F3, 12.6 kPa (08/2019). Patient endorses he had moved to [place] after that time [facility] but [facility] recently moved back with plans of staying in [place] and reestablishing care. Most recent imaging: US abdomen 03/2021, in comparison to US [...] CBD <7mm. No intrahepatic biliary duct dilation. He had repeat fibroscan in 2020 which showed 11.7kpa, F3 fibrosis. Recent a1c 6.3 Patient reports he was previously on trulicity and prior to that metformin, which he had stopped because of reported diarrhea which resolved after discontinuing medication. Patient previously seen as well by Dr. Mackey for IBS-like symptoms including abdominal pain and diarrhea. He endorses some worsened B/L upper abdominal pain for which he has per PCP scheduled CT scanA/P next Thursday for evaluation and Colonoscopy for screening. Of note, labs from PCP 10/20/22 reveal amylase and lipase, 168, 202 respectively. Patient endorses weight is stable, denies Nausea, vomiting, lack of appetite, nocturnal symptoms. Per note review from Dr. Mackey's previous visit, previous colonoscopy ~8 years ago diverticula noted, and polyps removed, unsure of etiology. Last hepatic panel 01/31/22 [facility]: TP 2.8 Albumin 4.2 Bilirubin, total 0.5 Alk phos 78 AST 43 ALT 76 PLT- 292 HGB- 15.2 Pertinent surgical history: Cholecystectomy Red Flags: --Unexplained weight loss: Denies --Hematochezia/melena: Denies --Fever: Denies --Nocturnal symptoms: Denies Pertinent labs, imaging, procedures: 09/08/22 Fibroscan - F3 fibrosis CMP Lab Results Component Value Date NA 139 12/01/2022 K 4.6 12/01/2022 CL 100 12/01/2022 CO2 28 12/01/2022 SERGLU 221 (H) 12/01/2022 BUN 16 12/01/2022 CREATININE 0.95 12/01/2022 CALCGFR 87 12/01/2022 TP 7.6 12/01/2022 ALKPHOS 91 12/01/2022 AST 38 12/01/2022 ALT 70 (H) 12/01/2022 TBIL <0.5 12/01/2022 CALCIUM 9.3 12/01/2022 AGRATIO 1.7 12/01/2022 ANIONGAP 11 12/01/2022 Lab Results Component Value Date WBC 7.90 12/01/2022 HGB 15.1 12/01/2022 HCT 45.6 12/01/2022 MCV 86 12/01/2022 PLT 268 12/01/2022 Last PT/INR: 11.3/1.0 WNL FIB-4 Calculated Score: 1.15 at 12/06/2022 14:07 Calculated from: SGOT/AST: 38 U/L at 12/01/2022 14:59 SGPT/ALT: 70 U/L at 12/01/2022 14:59 Platelets: 268 K/cmm at 12/01/2022 14:59 Age: 67 years MELD 6 PMH: As stated in HPI. ROS: A 10-point ROS was performed and is negative other than stated in HPI. Current Outpatient Medications: ??? amlodipine (NORVASC) 10 mg tablet, Take 1 Tab by mouth daily., Disp: 30 Tab, Rfl: 11 ??? aspirin chewable 81 mg tablet, Take 1 Tab by mouth daily., Disp: 30 Tab, Rfl: 11 ??? dapagliflozin (FARXIGA) 5 mg tablet, Take 5 mg by mouth daily., Disp: , Rfl: ??? ERGOCALCIFEROL, VITAMIN D2, (VITAMIN D ORAL), Take by mouth daily, Disp: , Rfl: ??? exenatide microspheres (BYDUREON) 2 mg/0.65 mL pen injector, Inject 2 mg into the skin every 7 days., Disp: , Rfl: ??? insulin glargine (LANTUS) 100 unit/mL injection, Inject 30 Units into the skin 2 times daily. ,Disp: , Rfl: ??? isosorbide mononitrate (IMDUR) 30 mg CR tablet, Take 30 mg by mouth every morning. 15 mg, 1/2 tab, Disp: , Rfl: ??? lisinopril (PRINIVIL, ZESTRIL) 5 mg tablet, Take 5 mg by mouth daily., Disp: , Rfl: ??? metFORMIN (GLUCOPHAGE) 1,000 mg tablet, Take 1,000 mg by mouth 2 times daily., Disp: , Rfl: ??? METOPROLOL SUCCINATE ORAL, Take 150 mg by mouth daily. Takes 3-50 mg. Tablets daily, Disp: , Rfl: ??? nitroGLYCERIN (NITROSTAT) 0.4 mg SL tablet, Place 0.4 mg under the tongue as needed for Chest Pain., Disp: , Rfl: ??? rosuvastatin (CRESTOR) 40 mg tablet, Take 40 mg by mouth daily., Disp: , Rfl: ??? sertraline (ZOLOFT) 50 mg tablet, Take 50 mg by mouth daily., Disp: , Rfl: ??? traZODone (DESYREL) 50 mg tablet, Take 50 mg by mouth daily., Disp: , Rfl: Allergies Allergen Reactions ??? Imdur [Isosorbide Mononitrate] Severe headache ??? Indoramin Headaches Social History: ETOH: one drink per year, never been a drinker Caffeine: Coffee and tea Tobacco (smoking, vaping, chewing): Denies Supplements: CBD at night Marijuana: Denies Other substances: Denies drug use Last Vitals: Wt Readings from Last 3 Encounters: 12/01/22 (!) 107 kg (236 lb) 05/04/20 (!) 103 kg (227 lb) 04/17/20 (!) 103.9 kg (229 lb) Temp Readings from Last 3 Encounters: 03/22/20 36.4 ??C (97.5 ??F) (Tympanic) BP Readings from Last 3 Encounters: 12/01/22 (!) 150/66 04/17/20 121/64 03/22/20 116/62 Pulse Readings from Last 3 Encounters: 12/01/22 68 04/17/20 75 01/26/20 74 General appearance: Sitting comfortably in exam room chair, in no acute distress HEENT: Normocephalic, atraumatic. No scleral icterus Pulm: Normal respiratory effort. CV: Regular rate and rhythm. Abdomen: (+) obese abdomen. Nontender to palpation without rebound or guarding. No hepatosplenomegaly appreciated on exam. Skin: No jaundice, no caput medusae, no spider angiomata Extremities: No edema Neurologic: A&Ox4, no asterixis Impression: Raul Trujillo is a 67 y.o. male with a past medical history of CAD, NSTEMI (2015, 2019, 9 stents placed), Hypertension, hyperlipidemia, DEEPALI, diabetes, depression, anxiety, NAFLD on imaging, F3 on fibroscan here today for consultation regarding NAFLD. Patient previously seen by Dr. Mackey in 2019 for NAFLD and had previous fibroscan which showed F3 advanced fibrosis. Since then patient had moved to [place] and had undergone care at [place]. He has movedback with intention of re- establishing care. Previous lab values 01/2022 show mild elevation of LFTs Repeat lab tests today (CBC, CMP, PT/INR) were within normal limits with exception of ALT 70 and GLU 221. Calculation of FIB-4 was 1.15. <1.3 is low risk for advanced fibrosis. Will obtain Fibroscan in addition for re-evaluation of fibrosis that was previously noted. Hep C Ab to complete work up, which was negative, Hep B surface Ab positive in 2019. Patient will need Hep A vaccine as per previous recommendation. Patient denies moderate or heavy alcohol use; drinks one standard drink infrequently. Denies supplement use. Discussed with patient pathophysiology NAFLD secondary to metabolic syndrome as result of insulin resistance. This represents infiltration of liver with fat that can promote inflammation and stimulate scarring development. The issue is to what degree is this involving the liver, with the goal to determine degree of scarring or evidence of advanced scarring. Discussed noninvasive methods includingserology and liver stiffness measurements via US when combined can be accurate in this evaluation. Discussed the only treatment currently for NAFLD is weight loss. It has been shown that 5-10% body weight loss can reverse fatty infiltration in the liver. He denies alarm features such as jaundice, edema, red or dark stools, confusion, dark urine, pruritus, rash, weight loss, nocturnal symptoms, vomiting, hematemesis. Plan: 1. NAFLD, elevated liver enzymes -- CBC, CMP and PT/INR today reveal ALT 70 and glucose 221 -- FIB-4 is 1.15 which is low risk for advanced fibrosis -- Will order repeat fibroscan for reevaluation of liver fibrosis that was previously noted -- If intermediate will consider liver biopsy to determine advanced fibrosis to then determine HCC screening -- Pt has CT A/P scheduled next week 12/09 to evaluate abdominal pain per PCP, will review findings as well as pertaining to liver and HCC surveillance -- Discussed nutrition referral, however patient declined as he reports has seen one in the past -- Continue to manage HTN, HLD and DM with PCP --Follow-up 6 months Kera Tatum PA-C Gastroenterology & Hepatology I spent a total of 45 minutes on the date of this encounter meeting with the patient and reviewing documentation/coordinating care as described in the above note. documented in this encounter Plan of Treatment Upcoming Encounters Date Type Department Care Team (Late st Contact Info) Description 08/08/2024 13:00 EST Office Visit [facility] Gastroenterology - [address] [id number] Kera Tatum PA-C 111 [facility], [facility], [address] [place] [address] Scheduled Orders Name Type Priority Associated Diagnoses Orde r Schedule VIBRATION CONTROLLED TRANSIENT ELASTOGRAPHY (VCTE) GI Routine NAFLD (nonalcoholic fatty liver disease) Elevated liver enzymes Ordered: 12/07/2022 documented as of this encounter Results * HEPATITIS B CORE ANTIBODY (TOTAL) (12/01/2022 14:59 EDT) Hepatitis B Core Ab, Total Negative Negative 12/02/2022 10:03 EDT [facility] Blood VENOUS BLOOD / Unknown Venipuncture / Unknown 12/01/2022 14:59 EDT 12/01/2022 15:30 EDT Kera Tatum PA-C CHEMISTRY & B LOOD GAS ORDERABLES [facility] [address] [place] [id number] * HEPATITIS B SURFACE ANTIGEN (12/01/2022 14:59 EDT) Hep B Surface Ag Negative Negative 12/02/2022 9:19 EDT [facility] Blood VENOUS BLOOD / Unknown Venipuncture / Unknown 12/01/2022 14:59 EDT 12/01/2022 15:30 EDT Kera Tatum PA-C CHEMISTRY & B LOOD GAS ORDERABLES [facility] [address] [place] [address] * HEPATITIS C AB W REFLEX TO HCV RNA BY PCR (12/01/2022 14:59 EDT) Hep C Antibody Negative Negative 12/02/2022 10:09 EDT [facility] Blood VENOUS BLOOD / Unknown Venipuncture / Unknown 12/01/2022 14:59 EDT 12/01/2022 15:31 EDT Kera Tatum PA-C CHEMISTRY & B LOOD GAS ORDERABLES Performing Organization Address [facility] de Phone Number [facility] [address] [place] [address] * PROTIME (12/01/2022 14:59 EDT) Pathologist [facility] I.N.R. 1.0 0.9 - 1.1 Ratio 12/01/2022 16:05 EDT [facility] Pro Time 11.3 9.7 - 12.8 secs 12/01/2022 16:05 EDT [facility] Blood VENOUS BLOOD / Unknown Venipuncture / Unknown 12/01/2022 14:59 EDT 12/01/2022 15:31 EDT Narrative [facility] - 12/01/2022 16:05 EDT Moderate Intensity Coumadin INR = 2.0-3.0 Adjustments in anticoagulant therapy dose should be based on the INR and NOT on the Protime. Kera Tatum PA-C HEMATOLOGY & PF4 ORDERABLES Performing Organization Address [facility] de Phone Number [facility] [address] [place] [address] * (ABNORMAL) COMPREHENSIVE METABOLIC PANEL (CMP) (12/01/2022 14:59 EDT) Pathologist [facility] Sodium 139 136 - 145 mmol/L 12/01/2022 16:02 EDT [facility] Potassium 4.6 3.5 - 5.0 mmol/L 12/01/2022 16:02 EDT [facility] Chloride 100 96 - 110 mmol/L 12/01/2022 16:02 EDT [facility] CO2 Total 28 22 - 32 mmol/L 12/01/2022 16:02 [facility] Glucose 221(H) 70 - 100 mg/dl 12/01/2022 16:02 [facility] BUN 16 10 - 26 mg/dL 12/01/2022 16:02 [facility] Creatinine 0.95 0.66 - 1.25 mg/dL 12/01/2022 16:02 [facility] eGFR 87 >60 mL/min/1.7 3m2 12/01/2022 16:02 [facility] Total Protein 7.6 6.3 - 8.2 g/dL 12/01/2022 16:02 [facility] Albumin 4.8 3.4 - 4.9 g/dL 12/01/2022 16:02 [facility] Alkaline Phosphatase 91 38 - 126 U/L 12/01/2022 16:02 [facility] AST 38 15 - 46 U/L 12/01/2022 16:02 [facility] ALT 70(H) <50 U/L 12/01/2022 16:02 [facility] Bilirubin, Total <0.5 <1.4 mg/dL 12/02/19 16:02 [facility] Calcium 9.3 8.5 - 10.5 mg/dL 12/01/2022 16:02 [facility] Albumin/Globulin Ratio 1.7 1.0 - 2.5 12/01/2022 16:02 [facility] Anion Gap 11 5 - 14 mmol/L 12/01/2022 16:02 [facility] Blood VENOUS BLOOD / Unknown Venipuncture / Unknown 12/01/2022 14:59 EDT 12/01/2022 15:31 EDT Kera Tatum PA-C CHEMISTRY & B LOOD GAS ORDERABLES [facility] [address] [place] [address] * COMPLETE BLOOD COUNT (12/01/2022 14:59 EDT) WBC 7.90 4.00 - 10.40 K/cmm 12/01/2022 15:45 EDT [facility] RBC 5.30 4.36 - 5.78 M/cmm 12/01/2022 15:45 T [facility] Hemoglobin 15.1 13.8 - 17.3 gm/dL 12/01/2022 15:45 EDT [facility] HCT 45.6 39.5 - 50.2 % 12/01/2022 15:45 [facility] MCV 86 81 - 95 fl 12/01/2022 15:45 T [facility] MCH 28.5 27.6 - 33.0 pg 12/01/2022 15:45 [facility] MCHC 33.1 32.8 - 36.4 gm/dL 12/01/2022 15:45 [facility] RDW-CV 13.4 <14.2 % 12/01/2022 15:45 [facility] RDW-SD 42.0 <46.0 fl 12/01/2022 15:45 [facility] PLT 268 141 - 377 K/cmm 12/01/2022 15:45 [facility] MPV 10.4 9.5 - 12.7 fl 12/01/2022 15:45 [facility] Blood VENOUS BLOOD / Unknown Venipuncture / Unknown 12/01/2022 14:59 EDT 12/01/2022 15:30 EDT Kera Tatum PA-C HEMATOLOGY & PF4 ORDERABLES [facility] [address] [place] [address] documented in this encounter Visit Diagnoses Diagnosis NAFLD (nonalcoholic fatty liver disease)- Primary Other chronic nonalcoholic liver disease Elevated liver enzymes Other nonspecific abnormal serum enzyme levels documented in this encounter Historical Medications * This list may reflect changes made after this encounter. Medication Sig Dispensed Refills Start Date End Date NONFORMULARY THC gummy - 1/2 every night multivit-min/folic/vit K/lycop (MEN'S 50 PLUS DAILY FORMULA ORAL) Take by mouth. ranolazine (RANEXA) 500 mg SR tablet Take 1 Tablet by mouth 2 times daily. 10/07/2022 HUMALOG MIX 75-25 KWIKPEN 100 unit/mL (75-25) injectable pen Inject 50 Units into the skin 2 times daily. 10/07/2022 added in this encounter Care Teams Detention Officer Relationship Specialty Start Date End Date Denise Hooker APRN [address] [place] [address] PCP - General 09/13/18 documented as of this encounter
--- OUTSIDE RECORDS SUMMARY | 2024-03-04 00:26 | XMS_ITS | Encounter Summary ---
Author Organization [facility] Address [address] [place] [address] Care Team Providers Care Heating Mechanic Name Role Phone MorroLilia galvanhrcharu [place] JENNIFER Primary Care Provider [phone] Reason for Visit * Reason Onset Date Comments Telemedicine Video Visit 04/04/2020 Encounter Details Date Type Department Care Team ([facility] Contact Info) Description 04/04/2020 Telephone [facility] Cardiology - [place] [place] [address] Kitty Medina MD [address] [place] [address] Telemedicine Video Visit Social History Tobacco Use Types Packs/Day Years [...] 13:56 EDT documented as of this encounter Functional Status [...] encounter Miscellaneous Notes * Telephone Encounter - Rona Baltazar - 04/04/2020 1251 EDT Patient called telehealth support team to report he has recently been having issues with his internet connection. He states for now, it seems to be working and he plans on having the video visit withDr. Medina at 1pm today. Truck Farmer informed patient that this group would not be able to address internet connection and it would need to be through their [employer] company. Patient just wants provider to be aware of recent issues, so if he loses connection he requests a phone call. documented in this encounter Plan of Treatment Upcoming Encounters Date Type Department Care Team (Late st Contact Info) Description 08/08/2024 13:00 EST Office Visit [facility] Gastroenterology - [address] [address] Kera Tatum PA-C [address] [place] [address], [facility], [address] [place] [address] documented as of this encounter Visit Diagnoses Not on filedocumented in this encounter Care Teams Heating Mechanic Relationship Specialty Start Date End Date Denise Hooker APRN [address] [place] [address] PCP - General 09/13/18 documented as of this encounter
--- OUTSIDE RECORDS SUMMARY | 2024-03-04 00:26 | XMS_ITS | Encounter Summary ---
Author Organization [facility] Address [address] [place] [address] Care Team Providers Care Senior Engineer Name Role Phone Denise Hooker JENNIFER Primary Care Provider [phone] Reason for Visit * Reason Onset Date Comments Other 04/19/2020 Encounter Details Date Type Department Care Team ([facility] Contact Info) Description 04/19/2020 Telephone [facility] Gastroenterology - [facility] [address] [place] [address] Kaye Kimbrough, JANNY [address] [place] [address] Other Social History Tobacco Use Types Packs/Day Years [...] ALT is mildly elevated (likely due to his fatty liver), but stable compared with prior tests. Thanks! SR L/M for patient letting him know that labs are stable as per Dr. Mackey's message above. documented in this encounter Plan of Treatment Upcoming Encounters Date Type Department Care Team (Late st Contact Info) Description 08/08/2024 13:00 EST Office Visit [facility] Gastroenterology - [address] [id number] Kera Tatum PA-C 111 [facility], [address] [place] [address] documented as of this encounter Visit Diagnoses Not on filedocumented in this encounter Care Teams Senior Engineer Relationship Specialty Start Date End Date Denise Hooker APRN [address] [place], [place] [address] PCP - General 09/13/18 documented as of this encounter
--- OUTSIDE RECORDS SUMMARY | 2024-03-04 00:26 | XMS_ITS | Encounter Summary ---
Author Organization [facility] Address [address] [place] [address] Care Team Providers Care Feeder Worker Power Unit Operator Name Role Phone MorroLilia galvanjorden [place]on APRN Primary Care Provider [phone] Reason for Visit * Reason Comments Arrhythmia ventricular tachy Follow-up televideo long * Consult (Routine/Next Available) - Order Cancelled Specialty Diagnoses / Procedures Referred By Claire jacques Referred To Contact Cardiology Diagnoses NSTEMI (non-ST elevated myocardial infarction) ([facility]) NSVT (nonsustained ventricular tachycardia) ([facility]) Jeison Pickett, [address], [place] [address] [facility] [place] [address] Referral ID Status Reason Start Date Expiration Date Visits Requested Visits Authorized [id number] Order Cancelled Specialty Services Required 03/22/2020 1 1 Encounter Details Date Type Department Care Team (Late st Contact Info) Description 05/04/2020 10:20 EDT Telemedicine [facility] Cardiology - [place] [address] Bebo Guzman MD [address] [facility], [address] [place] [address] [place] (ventricular tachycardia) ([facility]) (Primary Dx) Social History Tobacco Use Types [...] as of this encounter Progress Notes * Bebo Guzman MD - 05/04/2020 1020 EDT Subjective: Patient ID: Raul Trujillo is an 64 y.o. male. Chief Complaint Patient presents with ??? Arrhythmia ventricular tachy ??? Follow-up televideo long HPI I had the pleasure of seeing Mr Ronnie today via Zoom. He has done well since being in the hospital. He has not had any episodes of [place] on remote monitor. He had a NSEMI with preserved EF. He is onbeta-blockade. Patient Active Problem List Diagnosis ??? Coronary atherosclerosis ??? Hyperlipidemia with target LDL less than 70 ??? Hypertensive disorder ??? Diabetes mellitus ([facility]) ??? Chest pain ??? Depression ??? Type 2 diabetes mellitus with vascular disease ([facility]) ??? NSVT (nonsustained ventricular tachycardia) ([facility]) Past Medical History: Diagnosis Date ??? CAD (coronary artery disease) 09-10-09 PCI LAD prox MARY, LAD mid MARY, LAD distal BMS; 09-07-09 PCI MARY X 3 RCA; 2004 stents X2 ??? Diabetes mellitus ([facility]) oral agents ??? Diverticulitis ??? Hyperlipidemia ??? Hypertension ??? [place] (myocardial infarction) ([facility]) 1992, 2003 ??? Recurrent infections rt foot 5th toe Past Surgical History: Procedure Laterality Date ??? CARPAL TUNNEL RELEASE bilateral ??? ROTATOR CUFF REPAIR right, fall 2015 ??? TOE AMPUTATION right ??? UMBILICAL HERNIA REPAIR Jun, 2009 Family [...] Info) Description 08/08/2024 13:00 EST Office Visit [facility] Gastroenterology - [address] [id number] Kera Tatum PA-C [address] [place] [address], [address] [place] [phone] documented as of this encounter Visit Diagnoses Diagnosis [place] (ventricular tachycardia) ([facility])- Primary Paroxysmal ventricular tachycardia documented in this encounter Historical Medications * This list may reflect changes made after this encounter. Medication Sig Dispensed Refills Start Date End Date isosorbide mononitrate (IMDUR) 30 mg CR tablet Take 30 mg by mouth every morning. 15 mg, 1/2 tab added in this encounter Care Teams Feeder Worker Power Unit Operator Relationship Specialty Start Date End Date Denise Hooker APRN [address] [place] [address] PCP - General 09/13/18 documented as of this encounter
--- OUTSIDE RECORDS SUMMARY | 2024-03-04 00:26 | XMS_ITS | Encounter Summary ---
Author Organization [facility] Address [address] [place] [address] Care Team Providers Care Manager University Name Role Phone Denise Hooker JENNIFER Primary Care Provider [phone] Encounter Details Date Type Department Care Team (Latest Contact Info) Description 01/26/2020 Travel Social History Tobacco Use Types Packs/Day Years Used Date Smoking Tobacco: Former Cigarettes 1 07/1973 - 05/1994 Smokeless Tobacco: Never Alcohol Use Standard Drinks/Week Comments Yes 0 (1 standard drink = 0.6 oz pur e alcohol) rare Sex and Gender Information Value Date Recorded Sex Assigned at Not on file Gender Identity Male 08/25/2019 10:17 EST Sexual Orientation Not on file COVID-19 Exposure Response Date Recorded In the last month, have you been in contact with someone who was confirmed or suspected to have Coronavirus / COVID-19? No / Unsure 01/26/2020 12:32 EDT documented as of this encounter Functional Status Functional Status Response Date of Assess ment Are you deaf or do you have serious difficulty h earing? No 12/02/2018 Are you blind or do you have serious difficulty seeing, even when wearing glasses? No 12/02/2018 Do you have serious difficul ty walking or climbing stairs? (5 years old or older) No 12/02/2018 Do you have difficulty dress ing or bathing? (5 years old or older) No 12/02/2018 Because of a physical, menta l, or emotional condition, do you have difficulty doing errands alone such as visiting a doctor's office or shopping? (15 years old or older) No 12/02/2018 Cognitive Status Response Date of Assessm ent Because of a physical, menta l, or emotional condition, do you have serious difficulty concentrating, remembering, or making decisions? (5 years old or older) No 12/02/2018 documented as of this encounter Plan of Treatment Upcoming Encounters Date Type Department Care Team (Late st Contact Info) Description 08/08/2024 13:00 EST Office Visit [facility] Gastroenterology - [address] [address] Kera Tatum PA-C [address] [facility], [address] [place] [phone] documented as of this encounter Visit Diagnoses Not on filedocumented in this encounter Care Teams Manager University Relationship Specialty Start Date End Date Denise Hooker APRN [address] [place] [address] PCP - General 09/13/18 documented as of this encounter
--- OUTSIDE RECORDS SUMMARY | 2024-03-04 00:26 | XMS_ITS | Encounter Summary ---
Author Organization [facility] Address [address] [place] [address] Care Team Providers Care Special Class Welder Name Role Phone Denise Hooker JENNIFER Primary Care Provider [phone] Encounter Details Date Type Department Care Team (Latest Contact Info) Description 03/18/2020 Travel Social History Tobacco Use Types Packs/Day [...] have Coronavirus / COVID-19? No / Unsure 03/18/2020 20:23 EDT documented as of this encounter Functional [...] Visit [facility] Gastroenterology - [address] [phone] Kera Tatum PA-C [address] [place] [address], [facility], [address] [place] [phone] documented as of this encounter Visit Diagnoses Not on filedocumented in this encounter Care Teams Special Class Welder Relationship Specialty Start Date End Date Denise Hooker APRN [address] [place] [address] PCP - General 09/13/18 documented as of this encounter
--- OUTSIDE RECORDS SUMMARY | 2024-03-04 00:26 | XMS_ITS | Encounter Summary ---
Author Organization [facility] Address [address] [place] [address] Care Team Providers Care Mannequin Coloring Artist Name Role Phone Denise Hooker JENNIFER Primary Care Provider [phone] Reason for Visit * Reason Onset Date Comments Results 01/27/2020 Encounter Details Date Type Department Care Team ([facility] Contact Info) Description 01/27/[address] [facility] Gastroenterology - [facility] [address] [place], [place] [phone] Letty Mackey MD [address] [place] [phone] Results Social History Tobacco Use Types Packs/Day [...] No 12/02/2018 documented as of this encounter Miscellaneous Notes * Telephone Encounter - Letty Mackey MD - 01/27/2020 5301 EDT Called the patient to review his recent liver ultrasound- hepatomegaly and hepatic steatosis- no evidence of any liver lesions. Given F3 on Fibroscan, will plan for repeat ultrasound in 6-12 months for HCC screening. The patient has follow up to see me in March. Asked him to call with any questions or concerns that may arise in the interim. Letty Mackey MD Gastroenterology and Hepatology [facility] documented in this encounter Plan of Treatment Upcoming Encounters Date Type Department Care Team (Late st Contact Info) Description 08/08/2024 13:00 EST Office Visit [facility] Gastroenterology - [facility] [address] [place] [address] Kera Tatum PA-C [address] [facility], [address] [place] [phone] documented as of this encounter Visit Diagnoses Not on filedocumented in this encounter Care Teams Mannequin Coloring Artist Relationship Specialty Start Date End Date Denise Hooker APRN [address] [place] [address] PCP - General 09/13/18 documented as of this encounter
--- OUTSIDE RECORDS SUMMARY | 2024-03-04 00:26 | XMS_ITS | Encounter Summary ---
Author Organization [facility] Address [address] [place] [address] Care Team Providers Care Director Of Software Development Name Role Phone Denise Hooker JENNIFER Primary Care Provider [phone] Reason for Visit * Auth/Cert Specialty Diagnoses / Procedures Referred By [facility] Referred To Contact Diagnoses NSTEMI (non-ST elevated myocardial infarction) ([facility]) NSTEMI Referral ID Status Reason Start Date Expiration Date Visits Re quested Visits Authorized [id number] 1 1 Encounter Details Date Type Department Care Team (Late st Contact Info) Description 03/19/2020 13:00 EDT - 03/19/2020 14:00 EDT Surgery [facility] Invasive Cardiology Unit [address] [place] [address] Nash Herron MD [address] [facility], Level [address] [place] [address] Left Heart Cath Surgery Details Date/Time Status Location OR Service Patient Class Case Class Case Type Trauma Case? 03/19/20 1300 Posted [facility] Comprehensive Ophthalmologist Comprehensive Ophthalmologist 2 Interventional Cardiology Inpatient Panel 1 Procedure LRB Anes Op Region Wound Class Comments Left Heart Cath Left Chest Surgeon Surgeon Role Service Panel Nash Herron MD Primary Interventional Cardi ology 1 Chaparrita Mclain MD Fellow Interventional Ca rdiology 1 Luis Garcia Fellow Interventional Cardiology 1 documented in this encounter Social History Tobacco Use Types Packs/Day Years [...] 20:23 EDT documented as of this encounter Last [...] No 03/18/2020 documented as of this encounter Discharge Summaries * Shantell Manuel MD - 03/21/2020 1442 EDT Cardiology Discharge Summary Primary Care Provider: Denise Hooker Attending Physician: No att. providers found Admit Date: 03/18/2020 Discharge Date: 03/22/20 Disposition: Home or self care Problems and Procedures Admitting Diagnosis: Ventricular tachycardia ([facility]) Final Hospital Diagnosis: NSTEMI, nonsustained ventricular tachycardia Additional Problems Managed in the Hospital Active Hospital Problems Diagnosis Date Noted ??? Type 2 diabetes mellitus with vascular disease ([facility]) 03/19/2020 ??? NSVT (nonsustained ventricular tachycardia) ([facility]) 03/19/2020 ??? Hypertensive disorder 09/07/2009 ??? Diabetes mellitus ([facility]) 09/07/2009 Oral agent - metformin Resolved Hospital Problems Diagnosis Date Noted Date Resolved ??? *NSTEMI (non-ST elevated myocardial infarction) ([facility]) 03/19/2020 03/22/2020 Principal Procedure: Left heart catheterization Date: 03/19/20 Secondary Procedures: Not applicable Hospital Course Claudia Batista is a 64-year-old man with a history of CAD (OK x2, stents x9), HTN, and HLD who was transferred from [facility] on 03/19 for management of NSTEMI. Left heart catheterization was performed and confirmed patent stents and mild coronary artery disease unchanged from prior. He was managed medically with Isordil 5 mg TID, which he tolerated well, inaddition to his [employer] amlodipine, lisinopril, and metoprolol. This was subsequently changed to Imdur 15 mg qd, to be continued at discharge. His troponin peaked at 0.214 at the time of admission, and his symptoms had resolved by the morning of hospital day #2. On hospital day #1 he was noted to have runs of asymptomatic NSVT on telemetry. EP was consulted and a cardiac MRI was performed, which showed a [...] O2 Device 03/22/20 1258 116/62 78 BPM -- 36.4 ??C (97.5 ??F) 97 % -- 03/22/20 0922 123/68 77 BPM 18 36 [...] 13:00 Office Visit with Letty Mackey MD [facility] G[facility] (--) [address] [facility], [place] [address] Follow-up appointments and procedures Amb Consult/Follow Up [...] with no significant change from prior. Noted to have runs of [place] on telemetry. CMR as above. EP consult and plan for now to discharge home with an event monitor and follow-up with EP as outpatient. More than 30 minutes spent discharging the patient and discussing the findings of those lab resultswith him and his bedside. As well as highlighting the follow-up plan after discharge Shantell Manuel MD 03/22/2020 18:03 documented in this encounter Medications at Time of Discharge Medication Sig Dispensed Refills Start Date End Date amlodipine (NORVASC) 10 mg tablet Take 1 Tab by mouth daily. 30 Tab 11 09/10/2009 aspirin chewable 81 mg tablet Take 1 Tab by mouth daily. 30 Tab 11 02/12/2016 dapagliflozin 5 mg tablet Take 5 mg by mouth daily. ERGOCALCIFEROL, VITAMIN D2, (VITAMIN D ORAL) Take by mouth daily. exenatide microspheres 2 mg/0.65 mL pen injector Inject 2 mg into the skin every 7 days. insulin glargine (LANTUS) 100 unit/mL injection Inject 30 Units into the skin 2 times daily. lisinopril (PRINIVIL, ZESTRIL) 5 mg tablet Take 1 Tablet by mouth daily. metFORMIN (GLUCOPHAGE) 1,000 mg tablet Take 1,000 mg by mouth 2 times daily. METOPROLOL SUCCINATE ORAL Take 150 mg by mouth daily. Takes 3-50 mg. Tablets daily nitroGLYCERIN (NITROSTAT) 0.[address] 1 Tablet under the tongue as needed for Chest Pain. rosuvastatin (CRESTOR) 40 mg tablet Take 1 Tablet by mouth daily. sertraline (ZOLOFT) 50 mg tablet Take 50 mg by mouth daily. traZODone (DESYREL) 50 mg tablet Take 1 Tablet by mouth daily. isosorbide mononitrate (IMDUR) 30 mg CR tablet Take 0.5 Tabs by mouth daily for 30 days. 15 Tab 2 03/23/2020 04/22/2020 documented as of this encounter Ordered Prescriptions Prescription Sig Dispensed Refills Start Date End Da te isosorbide mononitrate (IMDUR) 30 mg CR tablet Take 0.5 Tabs by mouth daily for 30 days. 15 Tab 2 03/23/2020 04/22/2020 documented in this encounter Discharge Disposition Disposition Code Departure Means Destination Home or Self [facility] documented in this encounter Progress Notes * Mata Thorne MD - 03/22/2020927 EDT Cardiology [...] Headaches have been much better over the past day and no longer requiring APAP. Looking forward to hearing about his MRI results. Review of Systems Pertinent items are noted in Subjective/HPI Objective Vital Signs Patient Vitals for the past 8 hrs: BP Heart Rate Temp SpO2 03/22/20921 123/68 77 BPM 36 ??C (96.8 ??F) 96 % 03/22/20456 -- 76 BPM -- 96 % 03/22/20455 122/72 73 BPM -- -- Weight: No data found. No intake or [...] POC glucose 94. CBC: Recent Labs 03/20/20 02103/21/20 0559 WBC 8.07 6.44 HGB 14.1 14.4 HCT 42.2 43.1 MCV 83 84 PLT 212 223 BMP: Recent Labs 03/20/20 02103/21/20 0559 CREATININE 0.79 0.71 NA 138 141 [...] a past medical history significant for coronary artery disease (S/p 9 stents), type 2 diabetes (insulin-dependent) HTN, HLD, DEEPALI, and significant tobaccouse history. Presents as a direct transfer from [facility] for further work-up of a NSTEMI. [...] daily - ticagrelor 90mg BID - continue [employer] rosuvastatin 40 mg daily NSVT: noted on telemetry overnight following admission. Asymptomatic (pt sleeping). No recurrence. Cardiac MRI obtained 03/21 showing a small infarct in the basilar inferior wall of the LV. - EP consulted, recommendations pending CAD/HTN/HLD -Continue aspirin 81 mg daily -Continue [employer] amlodipine 10 mg -Continue lisinopril 5 mg daily -Continue metoprolol XL 150 mg daily ?? Type 2 Diabetes: A1c 7.4% on admission, [employer] insulin regimen 40 units glargine twice daily. - Lantus held last night, currently NPO with elevated AM glucose - When PO, resume Lantus 20U BID + consistent carb diet - POCT Glc Q6 while NPO then before meals and qhs - Sliding scale with aspart Q6 while NPO - Continue to hold [employer] metformin, dapagliflozin, exenatide ?? Depression/sleep -Continue [employer] sertraline 50 mg daily -Continue [employer] trazodone 50 mg daily ?? Diet: NPO VTE Prophylaxis: heparin 5000 subcutaneous q 8 hrs CODE STATUS: Full Discharge Plan Pending plan from EP MATA THORNE MD 03/22/2020 9:28 * Shantell Manuel MD - 03/21/2020 1038 EDT Cardiology Progress [...] well without headaches. Waiting for cardiac MRI thisafternoon. Review of Systems Pertinent items are noted in Subjective/HPI Objective Vital Signs Patient Vitals for the past 8 hrs: BP Heart Rate Resp Temp SpO2 O2 Device 03/21/20 0752 106/67 74 BPM 18 36.1 ??C (97 ??F) 96 % None 03/21/20 0600 -- 85 BPM -- -- -- -- 03/21/20 0546 115/69 87 BPM 18 36.2 ??C (97.2 ??F) 97 % None 03/21/20 0500 -- 63 BPM -- -- -- -- 03/21/20 0400 -- 62 BPM -- -- -- -- 03/21/20 0300 -- 71 BPM -- -- -- -- Weight: No data found. Intake/Output Summary (Last 24 hours) at 03/21/2020 1038 Last data filed at 03/21/2020 0600 Gross per 24 hour Intake 600 ml Output -- Net 600 ml Physical Exam General appearance: [...] 223 BMP: Recent Labs 03/19/20 0151 03/20/20 02103/21/20 0559 CREATININE 0.69 0.79 0.71 NA 140 [...] a past medical history significant for coronary artery disease (S/p 9 stents), type 2 diabetes (insulin-dependent) HTN, HLD, DEEPALI, and significant tobaccouse history. Presents as a direct transfer from [facility] for further work-up of a NSTEMI. [...] daily - ticagrelor 90mg BID - continue [employer] rosuvastatin 40 mg daily - replete if Mg <2 or K <4 NSVT: noted on telemetry overnight following admission. Asymptomatic (pt sleeping). No recurrence. - EP consulted - Cardiac MRI - scheduled for today at 1300 - Depending on MRI findings, either d/c with meds + monitor, or consider ICD CAD/HTN/HLD -Continue aspirin 81 mg daily -Continue [employer] amlodipine 10 mg -Continue lisinopril 5 mg daily -Continue metoprolol XL 150 mg daily ?? Type 2 Diabetes: A1c 7.4% on admission, [employer] insulin regimen 40 units glargine twice daily. - Currently normoglycemic and NPO, Lantus held - When PO, resume Lantus 20U BID + consistent carb diet - POCT Glc Q6 while NPO then before meals and qhs - Sliding scale with aspart Q6 while NPO - Continue to hold [employer] metformin, dapagliflozin, exenatide ?? Depression/sleep -Continue [employer] sertraline 50 mg daily -Continue [employer] trazodone 50 mg daily ?? Diet: NPO [...] anginal symptoms. Shantell Manuel MD 03/21/2020 18:23 * Shantell Manuel MD - 03/20/2020 1006 EDT Cardiology Progress [...] O2 Device 03/20/20 0835 110/62 70 BPM -- -- -- -- 03/20/20 0825 110/62 72 BPM 18 36.8 ??C (98.2 ??F) 96 % None 03/20/20 0605 123/62 79 BPM -- -- -- None 03/20/20 0600 -- 85 BPM -- -- -- -- 03/20/20 0500 -- 63 BPM -- -- -- -- 03/20/20 0400 -- 73 BPM -- -- -- -- 03/20/20 0300 -- 65 BPM -- -- -- -- Weight: No data found. Intake/Output Summary (Last [...] a past medical history significant for coronary artery disease (S/p 9 stents), type 2 diabetes (insulin-dependent) HTN, HLD, DEEPALI, and significant tobaccouse history. Presents as a direct transfer from [facility] for further work-up of a NSTEMI. [...] needed, thus far has not - continue [employer] rosuvastatin 40 mg daily - replete if Mg <2 or K <4 - Goal SBP <140 and HR <70 NSVT: noted on telemetry overnight following admission. Asymptomatic (pt sleeping). - EP consulted - Cardiac MRI - ordered, to be performed tomorrow CAD/HTN/HLD -Continue aspirin 81 mg daily -Continue [employer] amlodipine 10 mg -Continue lisinopril 5 mg daily -Continue metoprolol XL 150 mg daily ?? Type 2 Diabetes: A1c 7.4% on admission, [employer] insulin regimen 40 units glargine twice daily. - Currently NPO and receiving Lantus 20U BID - Continue to hold [employer] metformin, dapagliflozin, exenatide - Consistent carbohydrate diet when eating - POCT Glc Q6 while NPO then before meals and qhs -Sliding scale with aspart Q6 while NPO ?? Depression/sleep -Continue [employer] sertraline 50 mg daily -Continue [employer] trazodone 50 mg daily ?? Diet: NPO [...] try to introduce low-dose nitro as tolerated. I spent a total of >35 minutes in direct floor time dedicated solely to this patient and 20 minutes of that time was spent in discussion with the patient about the risks and treatment options for managing his nonsustained ventricular tachycardia and anginal symptoms. Shantell Manuel MD 03/21/2020 7:00 * Jo Lee - 03/19/2020 7401 EDT Initial Case Management/Social Work Assessment and Discharge Plan/Readmission Risk Assessment REASON FOR ADMISSION: NSTEMI (non-ST elevated myocardial infarction) ([facility]) Patient understands reason for admission: Yes PATIENT CONTACT INFO VERIFIED: Yes(Sister kala Tirado [phone]) PATIENT ADDRESS VERIFIED: Yes LIVING ARRANGEMENTS AND ACCESSIBILITY ISSUES: Living Arrangements: Family members Levels: 1 Stairs to enter: 4 or more Handicap access: Railings into home Bathroom located on bedroom level?: Yes What in home social supports are available to the patient? Friends / neighbors, Spouse / significant other. Patient lives with his sister and his girlfriend. He states that he is independent with self care and home management. Is 09/02 care available? Yes ADVANCED DIRECTIVES, POA &/or COLST IN PLACE: Healthcare Directive: Yes, patient has advance directive for healthcare treatment Type of Healthcare Directive: Health care treatment directive Copy in Chart: Yes, previous copy on file @ [facility] DIRECTIVES FOR FINANCES: TRANSPORTATION: Transportation: Family CULTURAL, CATHOLIC and/or LANGUAGE factors affecting health care/discharge planning: Spiritual/Cultural Requests: None Any factors affecting health care/discharge planning?: No Insurance in Place: Yes Medical Insurance: Yes Type of insurance: Commercial insurance Commercial coverage: [employer] Blue Referred to patient financial services: No Nutrition: [...] illegal drug or used a prescription medication fornon-medical reasons?: Never Intervention in place/initiated?: No, not indicated FUNCTIONAL STATUS: Activities patient requires assistance: None Assistive Device: None COMMUNITY RESOURCES/SUPPORTS: Primary Care Provider: Denise Hooker PCP Verified: Yes(Denise Hooker, [employer]) Specialists: Type of Home Health Services: None DME Provider: None Pharmacy: [facility] [address] [facility] [address] [address] [place], [place] [address] [facility] [address] [facility] [address] [facility] [place] [address] [facility] [address] [facility] [address] [facility] [address] [facility] - [place], [place] - [address] [facility]] [id number] Home Health: None Other: POST HOSPITAL TRANSITION PLAN: Case management will continue to follow through transition to discharge. Patient's family can provide transportation. Patient is awaiting [facility] and treatment plan. No needs are identified at this time. Patient has Meds to Beds. Jo Lee RN Case Manager #[id number] * Bettie Feliz MD - 03/19/2020 0632 EDT Carton Repairer Addendum to H&P Mr. Claudia Batista is a 64YOM with PMHx pertinent for HTN, HLD, DMII and CAD (s/p multiple PCIs w/ stenting of LAS and RCA; last PCI to mid LAD 01/2016; LHC w/o flow limiting dx in 11/2018) who presents in transfer from [facility] after episode of jaw pain. This AM after cutting wood and noted the onset of intermittent episodes of achy bilateral jaw pain which improved w/ SL nitrox2 but quickly returned. During this he sought medical attention. At [facility] initial trop was negative with second troponin uptrending to 0.15. ASA, ticagrelor and heparin drip started at OSH. EKG unchanged from prior and pt chest pain free on arrival. A/P Presentation is concerning for jaw pain as an anginal equivalent and consistent with NSTEMI/ACS. [place], pt will be admitted to Cardiology service [...] and have answered the patient's (or responsible republican's)questions. To the best of my knowledge, the [...] for a minimum of 48 hours after theprocedure. Bettie Feliz MD Cardiovascular Fellow documented in this encounter H&P Notes * Shantell Manuel MD - 03/19/2020 0111 EDT Cardiology Admitting H&P Admit Date: 03/18/2020 Date of Service: 03/19/2020 PCP: Denise Hooker Code Status: Prior Chief Complaint: Chest pain HPI: Claudia Batista??is is a 64-year-old male with a past medical history significant for coronary artery disease (S/p 9 stents), type 2 diabetes (insulin-dependent) HTN, HLD, DEEPALI, and significant tobaccouse history. Presents as a direct transfer from [facility] for further work-up of a NSTEMI. [...] EMS to present to emergency department at [facility]. Patient reports that this jaw pain [...] pillow, denies leg swelling, orthopnea, PND, abdominal distention, subjective fever, chills, night sweats. Currently patient does [...] RCA; 2003 stents X2 ??? Diabetes mellitus ([facility]) oral agents ??? Diverticulitis ??? Hyperlipidemia ??? Hypertension ??? OK (myocardial infarction) ([facility]) 1992, 2003 ??? [...] O2 Device 03/19/20 0230 114/84 76 BPM -- -- 97 % -- 03/18/20 2312 138/80 76 BPM 16 36 [...] a past medical history significant for coronary artery disease (S/p 9 stents), type 2 diabetes (insulin-dependent) HTN, HLD, DEEPALI, and significant tobaccouse history. Presents as a direct transfer from [facility] for further work-up of a NSTEMI. [...] gtt - supplemental O2 if needed -Continue [employer] rosuvastatin 40 mg daily - NPO at midnight for potential intervention ([facility]) or other testing if needed - ordered lipid profile and A1c - echo ordered - replete if Mg <2 or K <4 - Goal SBP <140 and HR <70 CAD/HTN/HLD -Continue aspirin 81 mg daily -Continue [employer] amlodipine 10 mg -Continue lisinopril 5 mg daily -Continue metoprolol XL 150 mg daily Type 2 Diabetes: A1c ordered, [employer] insulin regimen 40 units glargine twice daily -Decrease [employer]ERSON insulin regimen to 30 units twice daily -Hold [employer]ERSON metformin 1000 twice daily -Hold [employer]ERSON dapagliflozin 5 mg daily -Hold [employer]ERSON exenatide microspheres - Consistent carbohydrate diet when eating - POCT Glc Q6 while NPO then before meals and qhs -Sliding scale with aspart Q6 while NPO Depression/sleep -Continue [employer] sertraline 50 mg daily -Continue [employer]ERSON trazodone 50 mg daily Diet: NPO VTE [...] need to decrease the doses of amlodipine or lisinopril if developed hypotension. ?? Telemetry review noted runs of NSVT, given no coronary etiology and no change in the EF, will consult with EP given the VT occurrence despite maximal tolerated beta rohini therapy in a high risk patient with no ICD in place. Shantell Manuel MD 03/19/2020 19:28 documented in this encounter Procedure Notes * Nash Herron Jr., MD - 03/19/2020 1553 [...] artery Procedure: He was brought to [facility] for the procedure: [...] With the patients consent, all family members and patient support persons who were present at the conclusion of the procedure have been notified ofthese results and treatment plans as well. Nash Herron Jr., MD PagerNumber: [phone] 03/19/2020 15:53 * Shantell Manuel MD - 03/19/2020 1026 EDT Cardiology Progress [...] (97 ??F) 95 % None 03/19/20 0700 -- 74 BPM -- -- -- -- 03/19/20 0230 114/84 76 BPM -- -- 97 % -- Weight: No data found. No intake or [...] a past medical history significant for coronary artery disease (S/p 9 stents), type 2 diabetes (insulin-dependent) HTN, HLD, DEEPALI, and significant tobaccouse history. Presents as a direct transfer from [facility] for further work-up of a NSTEMI. [...] gtt - supplemental O2 if needed -Continue [employer] rosuvastatin 40 mg daily - NPO at midnight for potential intervention ([facility]) or other testing if needed - ordered lipid profile and A1c - echo ordered - replete if Mg <2 or K <4 - Goal SBP <140 and HR <70 ?? CAD/HTN/HLD -Continue aspirin 81 mg daily -Continue [employer]ERSON amlodipine 10 mg -Continue lisinopril 5 mg daily -Continue metoprolol XL 150 mg daily ?? Type 2 Diabetes: A1c ordered, [employer] insulin regimen 40 units glargine twice daily -Decrease [employer]ERSON insulin regimen to 30 units twice daily -Hold [employer]ERSON metformin 1000 twice daily -Hold [employer]ERSON dapagliflozin 5 mg daily -Hold [employer]ESPERSON exenatide microspheres - Consistent carbohydrate diet when eating - POCT Glc Q6 while NPO then before meals and qhs -Sliding scale with aspart Q6 while NPO ?? Depression/sleep -Continue [employer] sertraline 50 mg daily -Continue [employer]ERSON trazodone 50 mg daily ?? Diet: NPO [...] 16:38 documented in this encounter Consult Notes * Skylre Lopez MD - 03/20/2020 0658 EDT EP Cardiology Consult Attending Physician: Shantell Manuel MD Date of Service: 03/20/2020 Reason for Consult: [place] HPI: Claudia Batista is a 64 y.o. male patient with CAD (s/p multiple PCI's, DM2, HTN, HLD admitted 03/19 from [facility] for NSTEMI. Telemetry demonstrated ~40s of asymptomatic VT 03/19. C 03/19 w/ LM MLI's, pLAD 30% (unchanged) [...] ??? Diverticulitis ??? Hyperlipidemia ??? Hypertension ??? OK (myocardial infarction) ([facility]) 1992, 2003 ??? [...] file Gets together: Not on file Attends mosque service: Not on file Active member of [...] ??C (95.7 ??F), temperature source Tympanic, resp. rate16, height 175.3 cm (69), weight (!) 103 [...] PCI's, DM2, HTN, HLD admitted 03/19 from [facility] for NSTEMI. Telemetry demonstrated asymptomatic [place] 03/19. Repeat [facility] with unchanged disease. Patient was asymptomatic with episode of VT. No evidence of additional recurrence. No interveable disease. Will need to pursue CMR for further characterization prior to proceeding with consideration of ICD. -CMR -Continue Toprol-XL 150 mg. Will need episodic EKGs going forward to monitor progression of AV block Case discussed with Dr. Thomas Lopez MD Carton Repairer, PGY-5 Pager [phone] Associated attestation - Bebo Guzman MD - 03/27/2020 1323 EDT I saw and examined the patient with the resident/fellow/nurse practioner. I agree with the findingsand plan of care documented in the resident's/fellow's note. documented in this encounter Miscellaneous Notes * Result Encounter Note - Joesph Wesley MD - 03/22/2020 1622 EDT I have reviewed the labs/results. No action needed. * Plan of Care - Jayashree Espitia RN - 03/22/2020 1602 [...] discharge instructions and denied further questions. RRA site CDI w/ +csmts, pt stable upon d/c. JAYASHREE ESPITIA RN 03/22/2020 16:02 * Plan of Care - Zoraida Melara RN - 03/22/2020 0513 EDT Data: Assumed care of pt at 2300, pt s/p LHC RRA approach with no interventions. Tele- SR with 1 deg HB. Action: VS and tele monitored. RRA site [...] Goals Goal: Care Plan Documentation Outcome: Ongoing * Plan of Care - Siddhartha Walton RN - 03/21/2020 2128 EDT Data: pt admitted for NSTEMI w/ NSVT. Pt s/p clean [facility]. Pt a/o x 3 and VSS. Bedtime FS 94. Action: MD Reyes notified of FS and lantus held. Assessment per flowsheet and meds per emaR. Response: pt resting in chair no complaints at this time. Plan is for EP to evaluate cardiac MRI results tomorrow. SIDDHARTHA WALTON RN 03/21/2020 21:28 * Plan of Care - Rock Galdamez RN - 03/21/2020 0401 EDT BP 124/68 (BP Cuff Location: Left arm, BP Patient Position: Semi fowlers) Temp 36.2 ??C (97.2 ??F) (Tympanic) Resp 18 Ht 175.3 cm [...] in bed, appears comfortable, call manriquez within reach. Plan is for Cardiac MRI today. ROCK GALDAMEZ RN 03/21/2020 4:01 * Plan of Care - Sima Pace RN - 03/20/2020 1612 EDT BP 105/58 (BP Cuff Location: Left arm, BP Patient Position: Sitting) Temp 36.6 ??C (97.9 ??F) (Tympanic) Resp 16 Ht 175.3 cm (69) Wt (!) 103 kg (227 lb) SpO2 97% BMI 33.52 kg/m?? Data: Assumed care of pt at 0700. VSS on RA, 1st degree AVB on telemetry. Diagnostic LHC 03/19, RRA site is CDI. Denies CP, SOB and dizziness. Ambulating around unit w/o complaints. Action:Assessment and VS documented in flow sheet and medications administered per SEP. Response: VSS, cardiac MRI scheduled for tomorrow. Denies complaints. WCTM. SIMA PACE RN 03/20/2020 16:12 * Plan of Care - Jessie Mart RN - 03/20/2020 0212 EDT [id number] Claudia Batista 64 y.o. male Length of [...] inquire about why pt is NPO at midnightand q6h finger sticks, clustered care to promote rest. R: No acute s/sx of distress. Blood sugar 78 at midnight, given juice. Plan to recheck again in AM. JESSIE MART RN 03/20/2020 2:12 * Plan of Care - Eulogio Kyle RN - 03/19/2020 0040 EDT Data: Patient admitted to [id number] for NSTEMI. On tele patient in first [...] Info) Description 08/08/2024 13:00 EST Office Visit [facility] Gastroenterology - [address] [address] Kera Tatum PA-C [address] [facility], [address] [place] [id number] documented as of this encounter Procedures Procedure Name Priority Date/Time Associated Diagnosis Comments ECG REPORT - SCANNED 04/17/2020 8:48 EDT ECG REPORT - SCANNED 03/27/2020 10:21 EDT ECG REPORT - SCANNED 03/27/2020 10:21 EDT POCT GLUCOSE, INTERFACED Routine 03/22/2020 11:18 EDT POCT GLUCOSE, INTERFACED Routine 03/22/2020 5:55 EDT POCT GLUCOSE, INTERFACED Routine 03/21/2020 20:11 EDT POCT GLUCOSE, INTERFACED Routine 03/21/2020 17:21 EDT MR CARDIAC W WO CONTRAST Routine 03/21/2020 14:43 EDT XR ORBITS FOR FOREIGN BODY STAT 03/21/2020 13:30 EDT POCT GLUCOSE, INTERFACED Routine 03/21/2020 12:03 EDT COMPLETE BLOOD COUNT Routine 03/21/2020 5:59 EDT CREATININE Routine 03/21/2020 5:59 EDT ELECTROLYTES Routine 03/21/2020 5:59 EDT POCT GLUCOSE, INTERFACED Routine 03/21/2020 5:58 EDT POCT GLUCOSE, INTERFACED Routine 03/20/2020 20:23 EDT POCT GLUCOSE, INTERFACED Routine 03/20/2020 16:53 EDT POCT GLUCOSE, INTERFACED Routine 03/20/2020 12:23 EDT POCT GLUCOSE, INTERFACED Routine 03/20/2020 6:00 EDT POCT GLUCOSE, INTERFACED Routine 03/20/2020 3:08 EDT TROPONIN I Routine 03/20/2020 2:11 EDT COMPLETE BLOOD COUNT Routine 03/20/2020 2:11 EDT CREATININE Routine 03/20/2020 2:11 EDT ELECTROLYTES Routine 03/20/2020 2:11 EDT POCT GLUCOSE, INTERFACED Routine 03/19/2020 23:37 EDT POCT GLUCOSE, INTERFACED Routine 03/19/2020 21:00 EDT POCT GLUCOSE, INTERFACED Routine 03/19/2020 18:00 EDT TROPONIN I Routine 03/19/2020 17:56 EDT CARDIAC CATHETERIZATION Routine 03/19/20 20 16:03 EDT TRANSTHORACIC ECHO (TTE) COMPLETE Routine 03/19/2020 13:58 EDT POCT GLUCOSE, INTERFACED Routine 03/19/2020 11:52 EDT HEPARIN LEVEL - UNFRACTIONATED HEPARIN STAT 03/19/2020 9:02 EDT TROPONIN I Routine 03/19/2020 9:01 EDT POCT GLUCOSE, INTERFACED Routine 03/19/2020 6:51 EDT COMPLETE BLOOD COUNT Routine 03/19/2020 5:46 EDT POCT GLUCOSE, INTERFACED Routine 03/19/2020 2:56 EDT TROPONIN I Routine 03/19/2020 1:51 EDT HEPARIN LEVEL - UNFRACTIONATED HEPARIN STAT 03/19/2020 1:51 EDT COMPLETE BLOOD COUNT Routine 03/19/2020 1:51 EDT HEMOGLOBIN A1C Add-On 03/19/2020 1:51 EDT CREATININE Routine 03/19/2020 1:51 EDT ELECTROLYTES Routine 03/19/2020 1:51 EDT EKG 12-LEAD Routine 03/19/2020 0:10 EDT POCT GLUCOSE, INTERFACED Routine 03/18/2020 23:20 EDT documented in this encounter Results * CARDIAC EVENT MONITOR (04/23/2020 8:54 EDT) Anatomical Region Laterality Modality Other Narrative 04/23/2020 10:31 EDT Baseline rhythm is sinus No arrhythmias No symptoms reported Jeison Pickett DO CARDIAC SERVICES ORD ERABLES * ECG REPORT - SCANNED (04/17/2020 8:48 EDT) 04/17/2020 8:48 EDT Scan 2 Advanced Nursing Professor PROCEDURE/MINOR MERCEDES GICAL ORDERABLES * ECG REPORT - SCANNED (03/27/2020 10:21 EDT) 03/27/2020 10:2 1 EDT Scan 2 Advanced Nursing Professor PROCEDURE/MINOR MERCEDES GICAL ORDERABLES * ECG REPORT - SCANNED (03/27/2020 10:21 EDT) 03/27/2020 10:2 1 EDT Scan 2 Advanced Nursing Professor PROCEDURE/MINOR MERCEDES GICAL ORDERABLES * (ABNORMAL) POCT GLUCOSE, INTERFACED (03/22/2020 11:18 EDT) Glucose, POC 135(H) 70 - 100 mg/dL 03/22/2020 11:[address] [facility] surveying teacher [place] [id number] 03/22/2020 11:[address] [facility] HN LAB POC COMMENT (GLUCOSE) Test Performed by Nursing Services 03/22/2020 11:[address] [facility] Blood CAPILLARY BLOOD / Unknown 03/22/2020 11:18 EDT 03/22/2020 11:23 EDT Joesph Wesley MD POINT OF CARE TEST O RACHEL Performing Organization Address [facility] Co de Phone Number [facility] [address] [place] [address] * (ABNORMAL) POCT GLUCOSE, INTERFACED (03/22/2020 5:55 EDT) Glucose, POC 131(H) 70 - 100 mg/dL 03/22/2020 5:[address] [facility] surveying teacher ID [id number] 03/22/2020 5:[address] [facility] HN LAB POC COMMENT (GLUCOSE) Test Performed by Nursing Services 03/22/2020 5:[address] [facility] Blood CAPILLARY BLOOD / Unknown 03/22/2020 5:55 EDT 03/22/2020 5:55 EDT Joesph Wesley MD POINT OF CARE TEST O RDERABLES Performing Organization Address City/[facility]/ZIP Co de Phone Number [facility] [address] [place] [address] * POCT GLUCOSE, INTERFACED (03/21/2020 20:11 EDT) Glucose, POC 94 70 - 100 mg/dL 03/21/2020 20:[address] [facility] surveying teacher ID [id number] 03/21/2020 20:[address] [facility] HN LAB POC COMMENT (GLUCOSE) Test Performed by Nursing Services 03/21/2020 20:[address] [facility] Blood CAPILLARY BLOOD / Unknown 03/21/2020 20:11 EDT 03/21/2020 20:12 EDT Joesph Wesley MD POINT OF CARE TEST O RDERABLES Performing Organization Address [facility] Co de Phone Number [facility] [address] [place] [address] * (ABNORMAL) POCT GLUCOSE, INTERFACED (03/21/2020 17:21 EDT) Glucose, POC 199(H) 70 - 100 mg/dL 03/21/2020 17:[address] [facility] surveying teacher ID [id number] 03/21/2020 17:[address] [facility] HN LAB POC COMMENT (GLUCOSE) Test Performed by Nursing Services 03/21/2020 17:[address] [facility] Blood CAPILLARY BLOOD / Unknown 03/21/2020 17:21 EDT 03/21/2020 17:22 EDT Joesph Wesley MD POINT OF CARE TEST O RDERABLES Performing Organization Address [facility] de Phone Number [facility] [address] [place] [address] * MR CARDIAC W WO CONTRAST (03/21/2020 14:43 EDT) Anatomical Region Laterality Modality Chest Magnetic Resonan ce 03/21/2020 17:2 5 EDT Impressions 03/21/2020 17:25 EDT 1. ?? Small subendocardial infarction involving the basilar inferior wall of the left ventricle. 2. ??Mildly reduced left ventricular ejection fraction of 50%. I have personally reviewed the images and the above interpretation and agree with the findings. Narrative 03/21/2020 17:25 EDT MR CARDIAC W WO CONTRAST ??03/21/2020 1:00 PM Clinical History/Comments: Ventricular arrhythmia Technique: Multiplanar steady state free precession sequences of the heart were performed. ??Additionally, following IV gadolinium administration, rest perfusion and multi-planar delayed inversion recovery sequences of the heart were performed. Exam description: ??Cardiac MRI for morphology and function with and without contrast and further sequences. Comparison: None. Findings: LEFT VENTRICLE: Left global ventricular systolic function is minimally reduced with an LVEF of 50%. ?? Regional Wall Motion: Base: Minimal hypokinesis inferior wall. Mid heart: normal. [place]: normal. The left ventricular chamber is normal with an end diastolic volume of 158 ml and an end systolic volume of 80 ml. ??The left ventricular end diastolic diameter is 5.3 cm. ??The myocardial wall thickness is 1.1 cm. RIGHT VENTRICLE: Right ventricular systolic function, regional wall motion, chamber size and wall thickness are normal. ATRIA: The left atrium measures 3.5 cm. The right atrium is normal. VALVES: The aortic, pulmonic, tricuspid and mitral valve are normal PERICARDIUM: The pericardium is normal. AORTA: The ascending aorta measures 3.3 cm. PERFUSION: The rest perfusion sequences following IV gadolinium administration are normal. VIABILITY: The delayed inversion recovery sequences show a focal region of subendocardial delayed enhancement involving the inferior basal portion of the left ventricle (series 1401, #3). The remainder of the myocardium demonstrates normal suppression. ANCILLARY FINDINGS: None Procedure Note Sebastian Estrada MD - 03/21/2020 MR CARDIAC W WO CONTRAST 03/21/2020 1:00 PM Clinical History/Comments: Ventricular arrhythmia Technique: Multiplanar steady state free precession sequences of the heart wereperformed. Additionally, following IV gadolinium administration, restperfusion and multi- planar delayed inversion recovery sequences of theheart were performed. Exam description: Cardiac MRI for morphology and function with andwithout contrast and further sequences. Comparison: None. Findings: LEFT VENTRICLE: Left global ventricular systolic function is minimally reduced with anLVEF of 50%. Regional Wall Motion: Base: Minimal hypokinesis inferior wall. Mid heart: normal. [place]: normal. The left ventricular chamber is normal with an end diastolic volume of 158ml and an end systolic volume of 80 ml. The left ventricular enddiastolic diameter is 5.3 cm. The myocardial wall thickness is 1.1 cm. RIGHT VENTRICLE: Right ventricular systolic function, regional wall motion, chamber sizeand wall thickness are normal. ATRIA: The left atrium measures 3.5 cm. The right atrium is normal. VALVES: The aortic, pulmonic, tricuspid and mitral valve are normal PERICARDIUM: The pericardium is normal. AORTA: The ascending aorta measures 3.3 cm. PERFUSION: The rest perfusion sequences following IV gadolinium administration arenormal. VIABILITY: The delayed inversion recovery sequences show a focal region ofsubendocardial delayed enhancement involving the inferior basal portion ofthe left ventricle (series 1401, #3). The remainder of the myocardiumdemonstrates normal suppression. ANCILLARY FINDINGS: None IMPRESSION 1. Small subendocardial infarction involving the basilar inferior wallof the left ventricle. 2. Mildly reduced left ventricular ejection fraction of 50%. I have personally reviewed the images and the above interpretation andagree with the findings. Jeison Pickett DO [facility] MRI ORDERABLES * XR ORBITS FOR FOREIGN BODY (03/21/2020 13:30 EDT) Anatomical Region Laterality Modality Computed Radiogr aphy 03/21/2020 13:3 4 EDT Narrative 03/21/2020 13:34 EDT XR ORBITS FOR FOREIGN BODY ??03/21/2020 1:25 PM Clinical History/Comments: pre mri orbits for foreign body Comparisons: None. TECHNIQUE: PA and lateral views of the orbits. FINDINGS: No radiopaque foreign bodies are present within the orbits. The paranasal sinuses and mastoid air cells are clear. Procedure Note Sebastian Estrada MD - 03/21/2020 XR ORBITS FOR FOREIGN BODY 03/21/2020 1:25 PM Clinical History/Comments: pre mri orbits for foreign body Comparisons: None. TECHNIQUE: PA and lateral views of the orbits. FINDINGS: No radiopaque foreign bodies are present within the orbits. The paranasalsinuses and mastoid air cells are clear. Jeison Pickett DO [facility] DIAGNOSTIC IMAGI NG ORDERABLES * (ABNORMAL) POCT GLUCOSE, INTERFACED (03/21/2020 12:03 EDT) Glucose, POC 138(H) 70 - 100 mg/dL 03/21/2020 12:[address] [facility] surveying teacher ID [id number] 03/21/2020 12:[address] [facility] HN LAB POC COMMENT (GLUCOSE) Test Performed by Nursing Services 03/21/2020 12:[address] [facility] Blood CAPILLARY BLOOD / Unknown 03/21/2020 12:03 EDT 03/21/2020 12:18 EDT Joesph Wesley MD POINT OF CARE TEST O RDERABLES Performing Organization Address [facility] Co de Phone Number [facility] [address] [place] [address] * CREATININE (03/21/2020 5:59 EDT) Creatinine 0.71 0.66 - 1.25 mg/dL 03/21/2020 6:[address] [facility] eGFR 98 >60 mL/min/1.7 3m2 03/21/2020 6:[address] [facility] Comment:eGFR calculated rut yadav CKD-EPI equation for non- Americans. Multiply eGFR by 1.16 for patients. Blood VENOUS BLOOD / Unknown Venipuncture / Unknown 03/21/2020 5:59 EDT 03/21/2020 6:14 EDT Joesph Wesley MD CHEMISTRY & BLOOD GA S ORDERABLES Performing Organization Address [facility] Co de Phone Number [facility] [address] [place] [address] * ELECTROLYTES (03/21/2020 5:59 EDT) Sodium 141 136 - 145 mEq/L 03/21/2020 6:[address] [facility] Potassium 4.7 3.5 - 5.0 mEq/L 03/21/2020 6:[address] [facility] Chloride 100 96 - 110 mEq/L 03/21/2020 6:[address] [facility] CO2 Total 28 22 - 32 mEq/L 03/21/2020 6:[address] [facility] Blood VENOUS BLOOD / Unknown Venipuncture / Unknown 03/21/2020 5:59 EDT 03/21/2020 6:14 EDT Joesph Wesley MD CHEMISTRY & BLOOD GA S ORDERABLES Performing Organization Address City/[facility]/ZIP Co de Phone Number [facility] [address] [place] [address] * COMPLETE BLOOD COUNT (03/21/2020 5:59 EDT) WBC 6.44 4.00 - 10.40 K/cmm 03/21/2020 6:[address] [facility] RBC 5.16 4.36 - 5.78 M/cmm 03/21/2020 6:[address] [facility] Hemoglobin 14.4 13.8 - 17.3 gm/dL 03/21/2020 6:[address] [facility] HCT 43.1 39.5 - 50.2 % 03/21/2020 6:[address] [facility] MCV 84 81 - 95 fl 03/21/2020 6:[address] [facility] MCH 27.9 27.6 - 33.0 pg 03/21/2020 6:[address] [facility] MCHC 33.4 32.8 - 36.4 gm/dL 03/21/2020 6:[address] [facility] RDW-CV 13.5 <14.2 % 03/21/2020 6:[address] [facility] RDW-SD 41.6 <46.0 fl 03/21/2020 6:[address] [facility] PLT 223 141 - 377 K/cmm 03/21/2020 6:[address] [facility] MPV 10.1 9.5 - 12.7 fl 03/21/2020 6:[address] [facility] Blood VENOUS BLOOD / Unknown Venipuncture / Unknown 03/21/2020 5:59 EDT 03/21/2020 6:17 EDT Joesph Wesley MD HEMATOLOGY & PF4 ORD ERABLES Performing Organization Address City/[facility]/ZIP Co de Phone Number [facility] [address] [place] [address] * (ABNORMAL) POCT GLUCOSE, INTERFACED (03/21/2020 5:58 EDT) Glucose, POC 117(H) 70 - 100 mg/dL 03/21/2020 5:[address] [facility] surveying teacher ID [id number] 03/21/2020 5:[address] [facility] HN LAB POC COMMENT (GLUCOSE) Test Performed by Nursing Services 03/21/2020 5:[address] [facility] Blood CAPILLARY BLOOD / Unknown 03/21/2020 5:58 EDT 03/21/2020 5:59 EDT Joesph Wesley MD POINT OF CARE TEST O RACHEL Performing Organization Address [facility]/ZIP Co de Phone Number [facility] [address] [place] [address] * (ABNORMAL) POCT GLUCOSE, INTERFACED (03/20/2020 20:23 EDT) Glucose, POC 109(H) 70 - 100 mg/dL 03/20/2020 20:[address] [facility] surveying teacher ID [id number] 03/20/2020 20:[address] [facility] HN LAB POC COMMENT (GLUCOSE) Test Performed by Nursing Services 03/20/2020 20:[address] [facility] Blood CAPILLARY BLOOD / Unknown 03/20/2020 20:23 EDT 03/20/2020 20:37 EDT Shantell Manuel MD POINT OF CARE TEST O BEANERABENITO [facility] [address] [place] [address] * (ABNORMAL) POCT GLUCOSE, INTERFACED (03/20/2020 16:53 EDT) Glucose, POC 119(H) 70 - 100 mg/dL 03/20/2020 16:[address] [facility] surveying teacher ID [id number] 03/20/2020 16:[address] [facility] HN LAB POC COMMENT (GLUCOSE) Test Performed by Nursing Services 03/20/2020 16:[address] [facility] Blood CAPILLARY BLOOD / Unknown 03/20/2020 16:53 EDT 03/20/2020 16:59 EDT Joesph Wesley MD POINT OF CARE TEST O RDERABLES [facility] [address] [place] [address] * (ABNORMAL) POCT GLUCOSE, INTERFACED (03/20/2020 12:23 EDT) Glucose, POC 115(H) 70 - 100 mg/dL 03/20/2020 12:[address] [facility] surveying teacher ID [id number] 03/20/2020 12:[address] [facility] HN LAB POC COMMENT (GLUCOSE) Test Performed by Nursing Services 03/20/2020 12:[address] [facility] Blood CAPILLARY BLOOD / Unknown 03/20/2020 12:23 EDT 03/20/2020 12:24 EDT Joesph Wesley MD POINT OF CARE TEST O RDERABLES Performing Organization Address City/[facility]/ZIP Co de Phone Number [facility] [address] [place] [address] * (ABNORMAL) POCT GLUCOSE, INTERFACED (03/20/2020 6:00 EDT) Glucose, POC 103(H) 70 - 100 mg/dL 03/20/2020 6:[address] [facility] surveying teacher ID [id number] 03/20/2020 6:[address] [facility] HN LAB POC COMMENT (GLUCOSE) Test Performed by Nursing Services 03/20/2020 6:[address] [facility] Blood CAPILLARY BLOOD / Unknown 03/20/2020 6:00 EDT 03/20/2020 6:04 EDT Shantell Manuel MD POINT OF CARE TEST O RDERABLES [facility] [address] [place] [address] * (ABNORMAL) POCT GLUCOSE, INTERFACED (03/20/2020 3:08 EDT) Glucose, POC 108(H) 70 - 100 mg/dL 03/20/2020 3:[address] [facility] surveying teacher ID [id number] 03/20/2020 3:[address] [facility] HN LAB POC COMMENT (GLUCOSE) Test Performed by Nursing Services 03/20/2020 3:[address] [facility] Blood CAPILLARY BLOOD / Unknown 03/20/2020 3:08 EDT 03/20/2020 3:09 EDT Joesph Wesley MD POINT OF CARE TEST O RDERABLES Performing Organization Address [facility] Co de Phone Number [facility] [address] [place] [address] * (ABNORMAL) TROPONIN I (03/20/2020 2:11 EDT) Troponin I (ng/mL) 0.140(H) <0.034 ng/mL 03/20/2020 2:[address] [facility] Blood VENOUS BLOOD / Unknown Venipuncture / Unknown 03/20/2020 2:11 EDT 03/20/2020 2:[address] [facility] - 03/20/2020 2:54 EDT The results of this assay can be falsely lowered due to the consumption of Biotin. Joesph Wesley MD CHEMISTRY & BLOOD GA S ORDERABLES Performing Organization Address [facility]/ZIP Co de Phone Number [facility] [address] [place] [address] * CREATININE (03/20/2020 2:11 EDT) Creatinine 0.79 0.66 - 1.25 mg/dL 03/20/2020 2:[address] [facility] eGFR 94 >60 mL/min/1.7 3m2 03/20/2020 2:[address] [facility] Comment:eGFR calculated rut yadav CKD-EPI equation for non- Americans. Multiply eGFR by 1.16 for patients. Blood VENOUS BLOOD / Unknown Venipuncture / Unknown 03/20/2020 2:11 EDT 03/20/2020 2:15 EDT Joesph Wesley MD CHEMISTRY & BLOOD GA S ORDERABLES Performing Organization Address [facility] de Phone Number [facility] [address] [place] [address] * ELECTROLYTES (03/20/2020 2:11 EDT) Sodium 138 136 - 145 mEq/L 03/20/2020 2:[address] [facility] Potassium 4.3 3.5 - 5.0 mEq/L 03/20/2020 2:[address] [facility] Chloride 99 96 - 110 mEq/L 03/20/2020 2:[address] [facility] CO2 Total 30 22 - 32 mEq/L 03/20/2020 2:[address] [facility] Blood VENOUS BLOOD / Unknown Venipuncture / Unknown 03/20/2020 2:11 EDT 03/20/2020 2:15 EDT Joesph Wesley MD CHEMISTRY & BLOOD GA S ORDERABLES Performing Organization Address [facility] de Phone Number [facility] [address] [place] [address] * COMPLETE BLOOD COUNT (03/20/2020 2:11 EDT) WBC 8.07 4.00 - 10.40 K/cmm 03/20/2020 2:[address] [facility] RBC 5.09 4.36 - 5.78 M/cmm 03/20/2020 2:[address] [facility] Hemoglobin 14.1 13.8 - 17.3 gm/dL 03/20/2020 2:[address] [facility] HCT 42.2 39.5 - 50.2 % 03/20/2020 2:[address] [facility] MCV 83 81 - 95 fl 03/20/2020 2:[address] [facility] MCH 27.7 27.6 - 33.0 pg 03/20/2020 2:[address] [facility] MCHC 33.4 32.8 - 36.4 gm/dL 03/20/2020 2:[address] [facility] RDW-CV 13.7 <14.2 % 03/20/2020 2:[address] [facility] RDW-SD 41.1 <46.0 fl 03/20/2020 2:[address] [facility] PLT 212 141 - 377 K/cmm 03/20/2020 2:[address] [facility] MPV 10.2 9.5 - 12.7 fl 03/20/2020 2:[address] [facility] Blood VENOUS BLOOD / Unknown Venipuncture / Unknown 03/20/2020 2:11 EDT 03/20/2020 2:15 EDT Joesph Wesley MD HEMATOLOGY & PF4 ORD ERABLES Performing Organization Address City/[facility]/ZIP Co de Phone Number [facility] [address] [place] [address] * POCT GLUCOSE, INTERFACED (03/19/2020 23:37 EDT) Glucose, POC 79 70 - 100 mg/dL 03/19/2020 23:[address] [facility] surveying teacher ID [id number] 03/19/2020 23:[address] [facility] HN LAB POC COMMENT (GLUCOSE) Test Performed by Nursing Services 03/19/2020 23:[address] [facility] Blood CAPILLARY BLOOD / Unknown 03/19/2020 23:37 EDT 03/19/2020 23:42 EDT Joesph Wesley MD POINT OF CARE TEST O RDERABLES Performing Organization Address City/[facility] Co de Phone Number [facility] [address] [place] [address] * (ABNORMAL) POCT GLUCOSE, INTERFACED (03/19/2020 21:00 EDT) Glucose, POC 144(H) 70 - 100 mg/dL 03/19/2020 21:[address] [facility] surveying teacher ID [id number] 03/19/2020 21:[address] [facility] HN LAB POC COMMENT (GLUCOSE) Test Performed by Nursing Services 03/19/2020 21:[address] [facility] Blood CAPILLARY BLOOD / Unknown 03/19/2020 21:00 EDT 03/19/2020 21:00 EDT Shantell Manuel MD POINT OF CARE TEST O RDERABLES Performing Organization Address [facility] Co de Phone Number [facility] [address] [place] [address] * POCT GLUCOSE, INTERFACED (03/19/2020 18:00 EDT) Glucose, POC 81 70 - 100 mg/dL 03/19/2020 18:[address] [facility] surveying teacher ID [id number] 03/19/2020 18:[address] [facility] HN LAB POC COMMENT (GLUCOSE) Test Performed by Nursing Services 03/19/2020 18:[address] [facility] Blood CAPILLARY BLOOD / Unknown 03/19/2020 18:00 EDT 03/19/2020 18:00 EDT Joesph Wesley MD POINT OF CARE TEST O RACHEL Performing Organization Address [facility] de Phone Number [facility] [address] [place] [address] * (ABNORMAL) TROPONIN I (03/19/2020 17:56 EDT) Troponin I (ng/mL) 0.151(H) <0.034 ng/mL 03/19/2020 18:[address] [facility] Blood VENOUS BLOOD / Unknown Venipuncture / Unknown 03/19/2020 17:56 EDT 03/19/2020 18:[address] [facility] - 03/19/2020 18:53 EDT The results of this assay can be falsely lowered due to the consumption of Biotin. Joesph Wesley MD CHEMISTRY & BLOOD GA S ORDERABLES [facility] [address] [place] [address] * LEFT HEART CATH (03/19/2020 16:03 EDT) Anatomical Region Laterality Modality Comprehensive Ophthalmologist 03/19/2020 15:0 9 EDT Narrative 03/21/2020 10:30 EDT Cardiology [address] [place] [address] Catheterization Laboratory Study Patient: Claudia Batista ? Study Date: ?03/19/2020 ?Accession #: ? [id number] : ? 1955 Referring: Joesph Wesley Diagnostic Attending: ??Nash Herron Interventional Attending: ?? Nash Herron Diagnostic Fellow: Luis Garcia Interventional Fellow: Chaparrita Mclain ATTESTATION: I, Dr. Luis Garcia was the initial author of this report. Dr. Nash Herron was present and supervising for the entire procedure. I, Dr. Nash Herron have reviewed and agreed with the findings of this report. PROCEDURE PLAN: A diagnostic study was performed without intervention. RESEARCH STUDY: Patient is not enrolled in any research studies. IMPRESSIONS: Study suggests coronary artery disease, status post stent placement and multiple percutaneous interventions in left anterior descending coronary and right coronary artery , with minimal restenosis grossly unchanged from prior study. SUMMARY: 1. HPI and indications: Dyspnea. 2. Coronary arteries: The coronary circulation is right dominant. 3. Left main: Minor luminal irregularities. 4. LAD: Proximal vessel lesion: There is a 30% stenosis. Patent stents ?? with minimal ISR. Slow flow initially with rapid improvement to ?? normal with IC NTG. 5. Ramus intermedius: Minor luminal irregularities. 6. Left circumflex: Proximal vessel lesion: There is a 30% stenosis. ?? Distal vessel lesion: There is a 50% stenosis. 7. Right coronary: Proximal vessel lesion: There is minimal in-stent ?? restenosis. RECOMMENDATIONS: 1. ACC recommendation: Medical therapy and/or counseling. 2. Consider vasodilators (maybe NTG patch? Could not tolerate oral ?? isosorbide previously). HISTORY: Dyspnea. ??PMH: ?? Myocardial infarction. ??Risk factors: ??Family history of coronary artery disease. Hypertension. Diabetes mellitus; on therapy with insulin. Dyslipidemia. ??Allergies: ??No known allergies. LABS, PRIOR TESTS, PROCEDURES AND SURGERY: Serum creatinine (current admission) of 0.69 mg/dl. ??Platelet count of 256 th/ul. ??Hematocrit of 42.2 %. ??Hemoglobin (pre-procedure) of 14.4 g/dl. ??Catheterization with coronary intervention. STUDY DATA: Study status: ??Cardiac cath: urgent. ??Patient status: ??Inpatient. Location: ??Catheterization laboratory. Sex: male. Patient is 64yr old. Height: 175.3cm. Weight: 103kg. BSA: 2.27m^2. Procedures performed: ?Right radial artery access. ?Left coronary angiography. ?Right coronary angiography. ANESTHESIA: Conscious sedation by cardiology staff. PROCEDURE: 1. Initial setup. The patient was brought to the laboratory in the ?? fasting state. A baseline ECG was recorded. Surface ECG leads, ?? automatic cuff blood pressure measurements, and pulse oximetric ?? signals were monitored. 2. Skin preparation. The planned puncture sites were prepped with ?? chlorhexidine and draped in the usual sterile manner. 3. Local anesthesia. Using 2% Lidocaine, local anesthetic was ?? administered to the access site(s). 4. Right radial artery access. A 6 Fr/10/.021 [place] She[employer] SLENDER ?? sheath was advanced into the vessel. 5. Selective left coronary angiography. The procedure was attempted ?? using a 5 FR Pedro Luis catheter, but proper positioning could not be ?? achieved, and the catheter was exchanged for a 5 FR Pedro Luis catheter ?? which was advanced into the left coronary vessel ostium under ?? fluoroscopic guidance. Contrast was injected. Images were obtained in ?? multiple projections. 6. Selective right coronary angiography. A 5 FR Pedro Luis catheter was ?? advanced into the right coronary vessel ostium under fluoroscopic ?? guidance. Contrast was injected. Images were obtained in multiple ?? projections. 7. Right radial artery hemostasis. Mechanical compression was applied. STUDY COMPLETION: The estimated blood loss was 10ml. All catheters inserted during the procedure were removed. The patient tolerated the procedure well and was discharged from the lab. There were no complications. ??Contrast: Isovue 50ml (total dose). ??Isovue 150ml (wasted). ??Fluoroscopy time: 3.6min. ??Fluoroscopy dose: ??33.6cGy. CORONARY ARTERIES: The coronary circulation is right dominant. Left main: ??Minor luminal irregularities. LAD: ??Proximal vessel lesion: There is a 30% stenosis. Patent stents with minimal ISR. Slow flow initially with rapid improvement to normal with IC NTG. Ramus intermedius: ??Minor luminal irregularities. Left circumflex: ??Proximal vessel lesion: There is a 30% stenosis. Distal vessel lesion: There is a 50% stenosis. unchanged. Right coronary: ??Proximal vessel lesion: There is minimal in-stent restenosis. HEMODYNAMICS: None. + + + Arterial pressure s/d (m) 96/64 (78) + + + * Electronically signed by Nash Herron Jr., MD 2020-03-21 10:30 Joesph Wesley MD CARDIAC CATH ORDERAB LES * TRANSTHORACIC ECHO (TTE) COMPLETE W/DOPPLER W/CF W/ CONTRAST (03/19/2020 13:58 EDT) LA Atrial Length A2C 5.2 cm [facility] POINT OF CARE LA Atrial Area A4C 15.5 cm2 [facility] POINT OF CARE LA ID/bsa, A-P 1.7 cm/m2 [facility] POINT OF CARE FS 27 28 - 44 % [facility] POIN T OF CARE LA ID, A-P, ES 3.6 cm [facility] POINT OF CARE LV PW thickness, ED, PLAX 1.0 0.6 - 1.1 cm [facility] POINT OF CARE Aortic root ID 3.3 cm [facility] POINT OF CARE LV ejection fraction, 1-p A4C 53 % [facility] POIN T OF CARE LVOT mean gradient, S 2 mmHg [facility] POINT OF CARE AV LVOT peak gradient 6 mmHg [facility] POINT OF CARE LV e', lateral 0.08 m/s [facility] POINT OF CARE Mitral deceleration time 183 ms [facility] POINT OF CARE LVOT area 3.5 cm2 [facility] POIN T OF CARE LVOT peak velocity, S 1.2 m/s [facility] POINT OF CARE LVOT VTI, S 23.9 cm [facility] PO INT OF CARE Stroke volume (SV), LVOT DP 83 ml [facility] POINT OF CARE LVOT mean velocity, S 0.7 m/s [facility] POINT OF CARE Mitral E-wave peak velocity 0.7 m/s [facility] POINT OF CARE Mitral A-wave peak velocity 0.9 m/s [facility] POINT OF CARE LV Systolic Volume Index 22.0 mL/m2 [facility] POINT OF CARE LV Diastolic Volume Index 54.0 mL/m2 [facility] POINT OF CARE LA Atrial Length A4C 5.2 cm [facility] POINT OF CARE LVOT ID, S 2.1 cm [facility] POI NT OF CARE EF 59 % [facility] POIN T OF CARE LA volume, ES, BP 53.0 ml [facility] POINT OF CARE LA volume/bsa, ES, A4C 17.0 ml/m2 [facility] POINT OF CARE LA volumes, ES, A4C 37.0 ml [facility] POINT OF CARE LA volume/bsa, ES, BP 24.0 ml/m2 [facility] POINT OF CARE LV Systolic Volume 48 mL [facility] POINT OF CARE LV Diastolic Volume 117 mL [facility] POINT OF CARE Stroke index (SV/bsa) LVOT DP 38.0 ml/m2 [facility] POINT OF CARE Interventricular Septum to Posterior Wall Thickness Ratio 0.9 [facility] P OINT OF CARE IVS thickness, ED, PLAX 0.9 cm [facility] POINT OF CARE LV e', medial 0.06 m/s [facility] POINT OF CARE LV e', average 0.07 m/s [facility] POINT OF CARE Pulmonic valve mean velocity, S 1 cm/s [facility] POINT OF CARE Ascending aorta ID, a-p 3.1 cm [facility] POINT OF CARE LA Atrial Area A2C 15.5 cm2 [facility] POINT OF CARE LA/aortic root ratio 1.09 [facility] POINT OF CARE LV ID, ED, PLAX 4.9 3.5 - 6.0 cm [facility] POINT OF CARE LV ID, ES, PLAX 3.6 2.1 - 4.0 cm [facility] POINT OF CARE LV end diastolic volume 1-p A2C 111 ml [facility] POINT OF CARE LV ejection fraction, 1-p A2C 65 % [facility] POIN T OF CARE LV E/e', lateral 9.0 [facility] POINT OF CARE LV E/e', medial 9.0 [facility] N POINT OF CARE LV E/e', average 9 [facility] POINT OF CARE LV ejection fraction, 1-p A4C 27 % [facility] POIN T OF CARE LV end-diastolic volume, 1-p A4C 121 ml [facility] POINT OF CARE Anatomical Region Laterality Modality Ultrasound Narrative 03/19/2020 14:22 EDT ?Left Ventricle: The left ventricular cavity was normal in size. ?Left Ventricle: Left ventricular systolic function was normal with an ejection fraction of 55-60%. ?Left Ventricle: Left ventricular wall motion was normal; there were no regional wall motion abnormalities. ?Right Ventricle: The right ventricular cavity was normal in size. ?Right Ventricle: Right ventricular systolic function was normal. Left Ventricle The left ventricular cavity was normal in size. Left ventricular systolic function was normal with an ejection fraction of 55-60%. Left ventricular diastolic parameters were not diagnostic. Left ventricular wall thickness was normal. Left ventricular wall motion was normal; there were no regional wall motion abnormalities. Right Ventricle The right ventricular cavity was normal in size. Right ventricular systolic function was normal. Right ventricular wall thickness was normal. Left Atrium The left atrium was normal in size. Right Atrium The right atrium was normal in size. IVC/SVC The inferior vena cava was normal in size. Mitral Valve Mitral valve structure was normal. There was no significant mitral valve stenosis or regurgitation. Tricuspid Valve Tricuspid valve structure was normal. There was no tricuspid valve regurgitation. There was no tricuspid valve stenosis. Aortic Valve The aortic valve structure was trileaflet. The aortic leaflets were not thickened. There was no aortic valve stenosis. There was no aortic valve regurgitation. Pulmonic Valve There was no pulmonic valve regurgitation. There was no pulmonic valve stenosis. Ascending Aorta The aorta was normal in size. Pericardium There was no pericardial effusion. Pulmonic Artery Unable to assess PA pressure. Study Details Study status: Routine. Transthoracic echocardiography. M-Mode, complete 2D, complete spectral Doppler, and color Doppler.The study was interpreted by [facility]. Pertinent images and digital data are archived for permanent storage and are available for subsequent review. Scanning was performed from the apical, parasternal and subcostal acoustic windows. Definity contrast was used during the study. Overall the study quality was poor. The study was difficult due to patient body habitus. Images were obtained using cardiac ultrasound machine EPIQ #17. Joesph Wesley MD CARDIAC ECHO ORDERAB LES * (ABNORMAL) POCT GLUCOSE, INTERFACED (03/19/2020 11:52 EDT) Glucose, POC 124(H) 70 - 100 mg/dL 03/19/2020 11:[address] [facility] surveying teacher ID [id number] 03/19/2020 11:[address] [facility] HN LAB POC COMMENT (GLUCOSE) Test Performed by Nursing Services 03/19/2020 11:[address] [facility] Blood CAPILLARY BLOOD / Unknown 03/19/2020 11:52 EDT 03/19/2020 11:53 EDT Joesph Wesley MD POINT OF CARE TEST O RDERABLES [facility] [address] [place] [address] * HEPARIN LEVEL - UNFRACTIONATED HEPARIN (03/19/2020 9:02 EDT) [facility] Heparin Level-UFH 0.36 Therapeutic Range: 0.30 - 0.70 IU/mL 03/19/2020 9:[address] [facility] Comment:Unfractionated hepar in therapeutic range = 0.3-0.7 IU/ml - This test is not intended for monitoring direct Xa inhibitors, direct thrombin inhibitors, or fondaparinux.- Exogenous ATIII is NOT supplied in this assay. For unexpected or persistently low levels, consider measuring patient's ATIII level. Results will be overestimated in the presence of direct Xa inhibitors (rivaroxaban, apixaban, edoxaban). Blood VENOUS BLOOD / Unknown Venipuncture / Unknown 03/19/2020 9:02 EDT 03/19/2020 9:08 EDT Joesph Wesley MD HEMATOLOGY & PF4 ORD ERABLES [facility] [address] [place] [id number] * (ABNORMAL) TROPONIN I (03/19/2020 9:01 EDT) [facility] Troponin I (ng/mL) 0.191(H) <0.034 ng/mL 03/19/2020 10:[address] [facility] Blood VENOUS BLOOD / Unknown Venipuncture / Unknown 03/19/2020 9:01 EDT 03/19/2020 10:[address] [facility] - 03/19/2020 10:49 EDT The results of this assay can be falsely lowered due to the consumption of Biotin. Joesph Wesley MD CHEMISTRY & BLOOD GA S ORDERABLES [facility] [address] [place] [address] * (ABNORMAL) POCT GLUCOSE, INTERFACED (03/19/2020 6:51 EDT) [facility] Glucose, POC 128(H) 70 - 100 mg/dL 03/19/2020 6:[address] [facility] surveying teacher ID [id number] 03/19/2020 6:[address] [facility] HN LAB POC COMMENT (GLUCOSE) Test Performed by Nursing Services 03/19/2020 6:[address] [facility] Blood CAPILLARY BLOOD / Unknown 03/19/2020 6:51 EDT 03/19/2020 6:53 EDT Robinson arriaga Sa, MD POINT OF CARE T EST ORDERABLES Performing Organization Address City/State/[facility] Co de Phone Number [facility] [address] [place] [phone] * COMPLETE BLOOD COUNT (03/19/2020 5:46 EDT) WBC 7.59 4.00 - 10.40 K/cmm 03/19/2020 6:36 [facility] RBC 5.13 4.36 - 5.78 M/cmm 03/19/2020 6:36 [facility] Hemoglobin 14.4 13.8 - 17.3 gm/dL 03/19/2020 6:36 [facility] HCT 42.2 39.5 - 50.2 % 03/19/2020 6:36 [facility] MCV 82 81 - 95 fl 03/19/2020 6:36 [facility] MCH 28.1 27.6 - 33.0 pg 03/19/2020 6:36 [facility] MCHC 34.1 32.8 - 36.4 gm/dL 03/19/2020 6:36 [facility] RDW-CV 13.8 <14.2 % 03/19/2020 6:36 [facility] RDW-SD 40.7 <46.0 fl 03/19/2020 6:36 [facility] PLT 256 141 - 377 K/cmm 03/19/2020 6:36 [facility] MPV 11.1 9.5 - 12.7 fl 03/19/2020 6:36 [facility] Blood VENOUS BLOOD / Unknown Venipuncture / Unknown 03/19/2020 5:46 EDT 03/19/2020 6:21 EDT Joesph Wesley MD HEMATOLOGY & PF4 ORD ERABLES Performing Organization Address [facility] Co de Phone Number [facility] [address] [place] [address] * POCT GLUCOSE, INTERFACED (03/19/2020 2:56 EDT) Glucose, POC 88 70 - 100 mg/dL 03/19/2020 2:[address] [facility] surveying teacher ID [id number] 03/19/2020 2:[address] [facility] HN LAB POC COMMENT (GLUCOSE) Test Performed by Nursing Services 03/19/2020 2:[address] [facility] Blood CAPILLARY BLOOD / Unknown 03/19/2020 2:56 EDT 03/19/2020 2:56 EDT Joesph Wesley MD POINT OF CARE TEST O RDERABLES Performing Organization Address [facility] de Phone Number [facility] [address] [place] [address] * (ABNORMAL) HEMOGLOBIN A1C (03/19/2020 1:51 EDT) Hemoglobin A1c 7.4(H) <5.7 % 03/19/2020 8:[address] [facility] Comment: Glycemic Status [...] Avg Glucose 166 mg/dL 0 8:[address] [facility] Comment:The eAG represents t he A1c result expressed as average glucose in mg/dL. Blood VENOUS BLOOD / Unknown Venipuncture / Unknown 03/19/2020 1:51 EDT 03/19/2020 1:55 EDT Joesph Wesley MD CHEMISTRY & BLOOD GA S ORDERABLES Performing Organization Address [facility] Co de Phone Number [facility] [address] [place] [address] * (ABNORMAL) TROPONIN I (03/19/2020 1:51 EDT) Troponin I (ng/mL) 0.214(H) <0.034 ng/mL 03/19/2020 2:[address] [facility] Blood VENOUS BLOOD / Unknown Venipuncture / Unknown 03/19/2020 1:51 EDT 03/19/2020 1:[address] [facility] - 03/19/2020 2:32 EDT The results of this assay can be falsely lowered due to the consumption of Biotin. Joesph Wesley MD CHEMISTRY & BLOOD GA S ORDERABLES Performing Organization Address [facility] de Phone Number [facility] [address] [place] [address] * CREATININE (03/19/2020 1:51 EDT) Creatinine 0.69 0.66 - 1.25 mg/dL 03/19/2020 2:[address] [facility] eGFR 100 >60 mL/min/1.7 3m2 03/19/2020 2:[address] [facility] Comment:eGFR calculated rut yadav CKD-EPI equation for non- Americans. Multiply eGFR by 1.16 for patients. Blood VENOUS BLOOD / Unknown Venipuncture / Unknown 03/19/2020 1:51 EDT 03/19/2020 1:55 EDT Joesph Wesley MD CHEMISTRY & BLOOD GA S ORDERABLES Performing Organization Address [facility] de Phone Number [facility] [address] [place] [address] * ELECTROLYTES (03/19/2020 1:51 EDT) Sodium 140 136 - 145 mEq/L 03/19/2020 2:[address] [facility] Potassium 3.8 3.5 - 5.0 mEq/L 03/19/2020 2:[address] [facility] Chloride 100 96 - 110 mEq/L 03/19/2020 2:[address] [facility] CO2 Total 28 22 - 32 mEq/L 03/19/2020 2:[address] [facility] Blood VENOUS BLOOD / Unknown Venipuncture / Unknown 03/19/2020 1:51 EDT 03/19/2020 1:55 EDT Joesph Wesley MD CHEMISTRY & BLOOD GA S ORDERABLES Performing Organization Address [facility] de Phone Number [facility] [address] [place] [address] * COMPLETE BLOOD COUNT (03/19/2020 1:51 EDT) WBC 8.25 4.00 - 10.40 K/cmm 03/19/2020 2:[address] [facility] RBC 5.05 4.36 - 5.78 M/cmm 03/19/2020 2:04 [facility] Hemoglobin 14.4 13.8 - 17.3 gm/dL 03/19/2020 2:04 [facility] HCT 41.5 39.5 - 50.2 % 03/19/2020 2:04 [facility] MCV 82 81 - 95 fl 03/19/2020 2:04 [facility] MCH 28.5 27.6 - 33.0 pg 03/19/2020 2:04 [facility] MCHC 34.7 32.8 - 36.4 gm/dL 03/19/2020 2:04 [facility] RDW-CV 13.7 <14.2 % 03/19/2020 2:[address] [facility] RDW-SD 40.5 <46.0 fl 03/19/2020 2:[address] [facility] PLT 234 141 - 377 K/cmm 03/19/2020 2:[address] [facility] MPV 10.0 9.5 - 12.7 fl 03/19/2020 2:[address] [facility] Blood VENOUS BLOOD / Unknown Venipuncture / Unknown 03/19/2020 1:51 EDT 03/19/2020 1:55 EDT Joesph Wesley MD HEMATOLOGY & PF4 ORD ERABLES Performing Organization Address City/[facility] Co de Phone Number [facility] [address] [place] [address] * HEPARIN LEVEL - UNFRACTIONATED HEPARIN (03/19/2020 1:51 EDT) Heparin Level-UFH 0.24 Therapeutic Range: 0.30 - 0.70 IU/mL 03/19/2020 2:[address] [facility] Blood VENOUS BLOOD / Unknown Venipuncture / Unknown 03/19/2020 1:51 EDT 03/19/2020 1:[address] [facility] - 03/19/2020 2:16 EDT Sample retested, result confirmed Ash Crzu MD HEMATOLOGY & PF4 OR DERABLES Performing Organization Address [facility] Co de Phone Number [facility] [address] [place] [address] * EKG 12-LEAD (03/19/2020 0:10 EDT) 03/19/2020 0:[address] [facility] - 04/17/2020 8:44 EDT ? [facility] ? Test Date: ?2020-03-19 Pat Name: ? CLAUDIA BATISTA ? Department: ?? [place] [facility] ? Room: ? 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 [id number] : ?1955 ? Requested By: JULIAN Acuna Order Number: [id number] ? Reading MD: ?? ANETA HAN MD ? Measurements Intervals ?Eddy ? Rate: ? 72 ? P: ?50 PA: ? 214 ?QRS: ?69 QRSD: ? 125 ?T: ?6 QT: ? 391 ? QTc: ?429 ? Interpretive Statements SINUS RHYTHM WITH FIRST DEGREE AV BLOCK POSSIBLE RIGHT VENTRICULAR CONDUCTION DELAY Compared to ECG 12/02/2018 18:08:56 No significant change Edited by BRYAN LU MD on 03-23-2020 9:38:28 EDT. I reviewed the tracing and have either agreed or edited the findings in this report. Electronically Signed On 04-17-2020 8:44:09 EDT by ANETA HAN MD. 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 I reviewed the tracing and have either agreed or edited the findings inthis report. Electronically Signed On 04-17-2020 8:44:09 EDT by ANETA RASHID. Ash Cruz MD CARDIAC ECG ORDERAB LES [facility] * POCT GLUCOSE, INTERFACED (03/18/2020 23:20 EDT) Glucose, POC 98 70 - 100 mg/dL 03/18/2020 23:[address] [facility] surveying teacher ID [id number] 03/18/2020 23:[address] [facility] HN LAB POC COMMENT (GLUCOSE) Test Performed by Nursing Services 03/18/2020 23:[address] [facility] Blood CAPILLARY BLOOD / Unknown 03/18/2020 23:20 EDT 03/18/2020 23:21 EDT Ash Cruz MD POINT OF CARE TEST ORDERABLES [facility] [address] [place] [address] documented in this encounter Visit Diagnoses Not on filedocumented in this encounter Administered Medications Inactive Administered Medications - up to 3 most recent administrations Medication Order MAR Action Action Date Dose Rate Site acetaminophen (TYLENOL) tablet 650 mg 650 mg, oral, EVERY 4 HOURS PRN, Starting on Thu03/19/20 at 1557, Until Darlin 03/22/20 at 1822, Pain, Routine, Release Given 03/22/2020 13:06 EDT 650 mg Given 03/21/2020 6:39 EDT 650 mg Given 03/20/2020 19:05 EDT 650 mg amLODIPine (NORVASC) tablet 10 mg 10 mg, oral, DAILY, First dose on Thu03/19/20 at 0900, Until Discontinued, Routine Given 03/22/2020 9:28 EDT 10 mg Given 03/21/2020 8:41 EDT 10 mg Given 03/20/2020 8:35 EDT 10 mg aspirin chewable tablet 81 mg 81 mg, oral, DAILY, First dose on Thu03/19/20 at 0900, Until Discontinued, Routine Given 03/22/2020 9:28 EDT 81 mg Given 03/21/2020 8:41 EDT 81 mg Given 03/20/2020 8:35 EDT 81 mg fentaNYL citrate (PF) injection PRN, Starting on Thu03/19/20 at 1533, Until Thu03/19/20 at 1558, Routine, Intraprocedure Given 03/19/2020 15:39 EDT 50 mc g Given 03/19/2020 15:33 EDT 50 mcg heparin injection 5,000 Units 5,000 Units, subcutaneous, EVERY 8 HOURS, First dose on Thu03/20/20 at 1600, Until Discontinued, Routine insulin glargine (LANTUS SOLOSTAR) injection pen 20 Units 20 Units, subcutaneous, 2 TIMES DAILY, First dose on Thu03/19/20 at 0215, Until Discontinued, Routine Given 03/22/2020 12:59 EDT 20 Units Given 03/20/2020 8:38 EDT 20 Units Given 03/19/2020 20:09 EDT 20 Units iopamidoL (ISOVUE-370) injection PRN, Starting on Thu03/19/20 at 1550, Until Thu03/19/20 at 1604, Routine, Intraprocedure Given 03/19/2020 15:50 EDT 50 mL isosorbide mononitrate (IMDUR) CR tablet 15 mg 15 mg, oral, DAILY, First dose on Thu03/21/20 at 1200, Until Discontinued, Routine Given 03/22/2020 9:28 EDT 15 mg Given 03/21/2020 15:30 EDT 15 mg lidocaine 20 mg/mL (2 %) injection 1 dose, Starting on Thu03/19/20 at 1508, Until Darlin 03/22/20 at 1822 lisinopriL (PRINIVIL) tablet 5 mg 5 mg, oral, DAILY, First dose on Thu03/19/20 at 0900, Until Discontinued, Routine Given 03/22/2020 9:28 EDT 5 mg Given 03/21/2020 8:41 EDT 5 mg Given 03/20/2020 8:35 EDT 5 mg LORazepam (ATIVAN) tablet 0.5 mg 0.5 mg, oral, Once (Without Time Specified), 1 dose, Starting on Thu03/21/20 at 1230, Until Darlin 03/22/20 at 1822, Routine metoprolol XL (TOPROL-XL) tablet 150 mg 150 mg, oral, DAILY, First dose on Thu03/19/20 at 0900, Until Discontinued Given 03/22/2020 9:29 EDT 150 mg Given 03/21/2020 8:41 EDT 150 mg Given 03/20/2020 8:35 EDT 150 mg midazolam (PF) (VERSED) 1 mg/mL injection 1 dose, Starting on Thu03/19/20 at 1508, Until Darlin 03/22/20 at 1822 midazolam (PF) (VERSED) injection PRN, Starting on Thu03/19/20 at 1534, Until Thu03/19/20 at 1604, Routine, Intraprocedure Given 03/19/2020 15:34 EDT 2 mg nitroglycerin 100 mcg/mL syringe 1 dose, Starting on Thu03/19/20 at 1508, Until Darlin 03/22/20 at 1822 rosuvastatin (CRESTOR) tablet 40 mg 40 mg, oral, DAILY, First dose on Thu03/19/20 at 0900, Until Discontinued, Routine Given 03/22/2020 9:29 EDT 40 mg Given 03/21/2020 8:41 EDT 40 mg Given 03/20/2020 8:35 EDT 40 mg sertraline (ZOLOFT) tablet 50 mg 50 mg, oral, DAILY, First dose (after last modification) on Thu03/19/20 at 0215, Until Discontinued, Routine Given 03/22/2020 9:28 EDT 50 mg Given 03/21/2020 8:41 EDT 50 mg Given 03/20/2020 8:36 EDT 50 mg sodium chloride 0.9 % (flush) flush 3 mL 3 mL, intravenous, EVERY 8 HOURS, First dose on Thu03/19/20 at 0200, Until Discontinued, Routine, Release Given 03/22/2020 0:24 EDT 3 mL Given 03/21/2020 8:09 EDT 3 mL Given 03/20/2020 21:00 EDT 3 mL sodium chloride 0.9 % (NS) infusion FA IP EQF CONTINUOUS PRN FOR ONE STEP MEDS, Starting on Thu03/19/20 at 1523, Until Thu03/19/20 at 1523, Routine, Intraprocedure New Bag 03/19/2020 15:23 EDT 25 mL/hr 25 mL/hr traZODone (DESYREL) tablet 50 mg 50 mg, oral, AT BEDTIME, First dose (after last modification) on Thu03/19/20 at 0215, Until Discontinued, Routine Given 03/21/2020 20:37 EDT 50 mg Given 03/20/2020 20:55 EDT 50 mg Given 03/19/2020 20:11 EDT 50 mg documented in this encounter Discontinued Medications Medication Sig Discontinue Reason Start Date End Da te LORazepam (ATIVAN) 2 mg tablet 2mg 30 minutes prior to MRI. 05/19/2019 03/22/2020 documented as of this encounter Active and Recently Administered Medications Times are shown in EDT. Scheduled Medication Order 03/20/2020 03/21/2020 03/22/2020 amLODIPine (NORVASC) tablet 10 mg 10 mg, oral, DAILY, First dose on Thu03/19/20 at 0900, Until Discontinued, Routine 0835 (Given - Provider: Sima Pace RN) 0841 (Given - Provider: Roya Hall RN) 0928 (Given - Provider: Jayashree Espitia RN) aspirin chewable tablet 81 mg 81 mg, oral, DAILY, First dose on Thu03/19/20 at 0900, Until Discontinued, Routine 0835 (Given - Provider: Sima Pace RN) 0841 (Given - Provider: Roya Hall RN) 0928 (Given - Provider: Jayashree Espitia RN) gadobutroL (GADAVIST PFS) solution solution 1-15 mmol (COMPLETED) 1-15 mmol (1-15 mL), intravenous, Once in imaging, 1 dose, Starting on Thu03/21/20 at 1443, Until Thu03/21/20 at 1444, Routine, Imaging Protocol Orders 1444 (Given - Provider: Pepper Grossman) heparin injection 5,000 Units 5,000 Units, subcutaneous, EVERY 8 HOURS, First dose on Thu03/20/20 at 1600, Until Discontinued, Routine 1702 (Not Given - Provider: Sima Pace RN - Reason: Patient/family refused [...] Reason: Patient/family refused - Comment: pt is ambulatory)1543 (Not Given - Provider: Jayashree Espitia RN - Reason: Patient/family refused) insulin aspart U-100 (NOVOLOG FLEXPEN) injection subcutaneous, EVERY 6 HOURS, First dose on Thu03/19/20 at 0215, Until Discontinued, Routine, Indications: SUPPLEMENTAL INSULIN 0608 (Not Given - Provider: Jessie Mart RN - Reason: Order parameters not met)1300 (Not Given - Provider: Sima Pace RN - Reason: NPO)1701 (Not Given - Provider: Sima Pace RN - Reason: Order parameters not met)2304 (Not Given - Provider: Rock Galdamez RN - Reason: Order parameters not met) 0600 (Not Given - Provider: Rock Galdamez RN - Reason: Order parameters not met)1458 (Not Given - Provider: Roya Hall RN - Reason: Order parameters not met)1726 (Not Given - Provider: Roya Hall RN - Reason: Other - Comment: FSBG taken after meal, pt request no insulin)2302 (Not Given - Provider: Siddhartha Walton RN - Reason: Order parameters not met) 0602 (Not Given - Provider: Zoraida Melara RN - Reason: Order parameters not met)1119 (Not Given - Provider: Jayashree Espitia RN - Reason: Order parameters not met - Comment: BS of 135)1800 (Canceled Entry - Provider: Batch Job User Admin - Comment: Automatically canceled at discontinue of medication order) insulin glargine (LANTUS SOLOSTAR) injection pen 20 Units 20 Units, subcutaneous, 2 TIMES DAILY, First dose on Thu03/19/20 at 0215, Until Discontinued, Routine 0838 (Given - Provider: Sima Pace RN)2053 (Not Given - Provider: Rock Galdamez RN - Reason: NPO - Comment: held per MD Molina orders.) 0840 (Not Given - Provider: Roya Hall RN - Reason: Patient/family refused)2037 (Not Given - Provider: Siddhartha Walton RN - Reason: Order parameters not met) 1259 (Given - Provider: Jayashree Espitia RN) isosorbide dinitrate (ISORDIL) tablet 5 mg (CANCELED) 5 mg, oral, 3 TIMES DAILY NITRATES, First dose on Thu03/19/20 at 1830, Until Discontinued, Routine 0607 (Given - Provider: Jessie Mart RN)1302 (Given - Provider: Sima Pace RN - Comment: BP 119/70)1816 (Given - Provider: Sima Pace RN - Comment: BP 110/70) 0604 (Given - Provider: Rock Galdamez RN) isosorbide mononitrate (IMDUR) CR tablet 15 mg 15 mg, oral, DAILY, First dose on Thu03/21/20 at 1200, Until Discontinued, Routine 1530 (Given - Provider: Roya Hall RN - Comment: pt off unit) 09 (Given - Provider: Jayashree Espitia RN) lisinopriL (PRINIVIL) tablet 5 mg 5 mg, oral, DAILY, First dose on Thu03/19/20 at 0900, Until Discontinued, Routine 0835 (Given - Provider: Sima Pace RN) 08 (Given - Provider: Roya Hall RN) 927 (Given - Provider: Jayashree Espitia RN) LORazepam (ATIVAN) injection 0.5 mg (COMPLETED) 0.5 mg, intravenous, NOW X1, 1 dose, On Thu03/21/20 at 1330, Routine 1336 (Given - Provider: Siddhartha Walton RN) LORazepam (ATIVAN) tablet 0.5 mg 0.5 mg, oral, Once (Without Time Specified), 1 dose, Starting on Thu03/21/20 at 1230, Until Thu03/22/20 at 1822, Routine 1335 (Not Given - Provider: Siddhartha Walton RN - Reason: Other - Comment: IV given) metoprolol XL (TOPROL-XL) tablet 150 mg 150 mg, oral, DAILY, First dose on Thu03/19/20 at 0900, Until Discontinued 0835 (Given - Provider: Sima Pace RN) 08 (Given - Provider: Roya Hall RN) 09 (Given - Provider: Jayashree Espitia RN) rosuvastatin (CRESTOR) tablet 40 mg 40 mg, oral, DAILY, First dose on Thu03/19/20 at 0900, Until Discontinued, Routine 0835 (Given - Provider: Sima Pace RN) 08 (Given - Provider: Roya Hall RN) 09 (Given - Provider: Jayashree Espitia RN) sertraline (ZOLOFT) tablet 50 mg 50 mg, oral, DAILY, First dose (after last modification) on Thu03/19/20 at 0215, Until Discontinued, Routine 0836 (Given - Provider: Sima Pace, RN) 0841 (Given - Provider: Roya Hall, RN) 0928 (Given - Provider: Jayashree Espitia RN) sodium chloride 0.9 % (flush) flush 3 mL 3 mL, intravenous, EVERY 8 HOURS, First dose on Thu03/19/20 at 0200, Until Discontinued, Routine, Release 0008 (Given - Provider: Jessie Mart RN)0838 (Given - Provider: Sima Pace RN)1701 (Not Given - Provider: Sima Pace RN - Reason: Other)2100 (Given - Provider: Rock Galdamez, JANNY) 0809 (Given - Provider: Roya Hall, RN)1528 (Not Given - Provider: Roya Hall RN - Reason: Other) 0024 (Given - Provider: Zoraida Melara RN)0933 (Not Given - Provider: Jayashree Espitia RN - Reason: Order parameters not met)1543 (Not Given - Provider: Jayashree Espitia RN - Reason: Order parameters not met) traZODone (DESYREL) tablet 50 mg 50 mg, oral, AT BEDTIME, First dose (after last modification) on Thu03/19/20 at 0215, Until Discontinued, Routine 2054 (Given - Provider: Rock Galdamez, JANNY) 2036 (Given - Provider: Siddhartha Walton, JANNY) PRN Medication Order 03/20/2020 03/21/2020 03/22/2020 acetaminophen (TYLENOL) tablet 650 mg 650 mg, oral, EVERY 4 HOURS PRN, Starting on Thu03/19/20 at 1557, Until Darlin 03/22/20 at 1822, Pain, Routine, Release 1125 (Given - Provider: Sima Pace, JANNY)1905 (Given - Provider: Sima Pace RN) 0639 (Given - Provider: Rock Galdamez, RN) 1306 (Given - Provider: Jayashree Espitia RN) dextrose 50 % solution 12.5 g 12.5 g (25 mL), intravenous, PRN, Starting on Thu03/19/20 at 0146, Until Darlin 03/22/20 at 1822, Low Blood Sugar, Routine No Frequency Medication Order 03/20/2020 03/21/2020 03/22/2020 lidocaine 20 mg/mL (2 %) injection 1 dose, Starting on Thu03/19/20 at 1508, Until Darlin 03/22/20 at 1822 midazolam (PF) (VERSED) 1 mg/mL injection 1 dose, Starting on Thu03/19/20 at 1508, Until Darlin 03/22/20 at 1822 nitroglycerin 100 mcg/mL syringe 1 dose, Starting on Thu03/19/20 at 1508, Until Darlin 03/22/20 at 1822 documented in this encounter Orders Medications Ordered That Eagle ht Not Have Been Administered Count Last Ordered Date First Ordered Date gadobutroL (GADAVIST PFS) so lution solution 1-15 mmol 1 03/21/2020 isosorbide mononitrate (IMDU R) CR tablet 15 mg 1 03/21/2020 LORazepam (ATIVAN) injection 0.5 mg 1 03/21 LORazepam (ATIVAN) tablet 0.5 mg 1 03/21/20 20 heparin injection 5,000 Units 1 03/20/2020 acetaminophen (TYLENOL) tablet 650 mg 1 amLODIPine (NORVASC) tablet 10 mg 1 020 aspirin chewable tablet 81 mg 1 03/19/2020 dextrose 50 % solution 12.5 g 1 03/19/2020 fentaNYL citrate (PF) 50 mcg/mL injection 1 03/19/2020 glucagon injection 1 mg 1 03/19/2020 heparin 1,000 unit/mL injection 1 0 heparin 1,000 unit/mL inject ion 2,900 Units 1 03/19/2020 heparin 1,000 unit/mL inject ion 5,900 Units 1 03/19/2020 heparin in 07/21 NS 25,000 uni t/250 mL infusion 2 03/19/2020 03/18/2020 insulin aspart U-100 (NOVOLO G FLEXPEN) injection 1 03/19/2020 insulin glargine (LANTUS HIREN OSTAR) injection pen 20 Units 1 03/19/2020 isosorbide dinitrate (ISORDIL) tablet 5 mg 1 03/19/2020 lidocaine 20 mg/mL (2 %) injection 1 2019 lisinopriL (PRINIVIL) tablet 5 mg 1 020 metoprolol XL (TOPROL-XL) tablet 150 mg 1 0 03/19/2020 midazolam (PF) (VERSED) 1 mg/mL injection 1 03/19/2020 nitroglycerin 100 mcg/mL syringe 1 03/19/20 20 perflutren lipid microsphere s (DEFINITY) 0.165 mg in sodium chloride (PF) 1 mL 1 03/19/2020 rosuvastatin (CRESTOR) tablet 40 mg 1 03/19 sertraline (ZOLOFT) tablet 50 mg 2 03/19/20 20 sodium chloride 0.9 % (flush) flush 3 mL 1 03/19/2020 ticagrelor (BRILINTA) tablet 90 mg 1 2019 traZODone (DESYREL) tablet 50 mg 2 03/19/20 20 verapamiL (ISOPTIN) 2.5 mg/mL injection 1 0 03/19/2020 Nursing Count Last Ordered Date First Orde red Date HEIGHT AND WEIGHT 1 03/19/2020 MEASURE WEIGHT 1 03/19/2020 NOTIFY PHYSICIAN (SPECIFY) 3 03/19/2020 NURSING ORDER: HEPARIN JACLYN COL (CARDIAC INDICATION) 1 03/19/2020 PATIENT AT LOW RISK FOR VTE: RISK OF MECHANICAL PROPHYLAXIS OUTWEIGHS 1 03/19/2020 PATIENT AT LOW RISK FOR VTE: RISK OF PHARMACOLOGIC PROPHYLAXIS OUTWEIG 1 03/19/2020 Admission Count Last Ordered Date First Orde red Date ADMIT TO INPATIENT 1 03/19/2020 Discharge Count Last Ordered Date First Orde red Date DISCHARGE PATIENT 1 03/22/2020 Case Request Count Last Ordered Date First Orde red Date CASE REQUEST 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
--- OUTSIDE RECORDS SUMMARY | 2024-03-04 00:26 | XMS_ITS | Encounter Summary ---
Author Organization [facility] Address [address] [place] [address] Care Team Providers Care Hospital Receiving Clerk Name Role Phone Denise Hooker JENNIFER Primary Care Provider [phone] Encounter Details Date Type Department Care Team (Latest Contact Info) Description 04/17/2020 Travel Social History Tobacco Use [...] Visit [facility] Gastroenterology - [address] [id number] Kera Tatum PA-C [address] [place] [address], [facility], [address] [place] [id number] documented as of this encounter Visit Diagnoses Not on filedocumented in this encounter Care Teams Hospital Receiving Clerk Relationship Specialty Start Date End Date Denise Hooker APRN [address] [place] [address] PCP - General 09/13/18 documented as of this encounter
--- OUTSIDE RECORDS SUMMARY | 2024-03-04 00:26 | XMS_ITS | Encounter Summary ---
Author Organization [facility] Address [address] [place] [address] Care Team Providers Care Long Distance Operator Name Role Phone [place] Denise Easton APRN Primary Care Provider [phone] Reason for Referral * Cardiology (Routine/Next Available) - Closed Specialty Diagnoses / Procedures Referred By Claire jacques Referred To Contact Cardiology Diagnoses Ventricular tachycardia (HCC-CMS) Procedures CARDIAC EVENT MONITOR Jeison Pickett DO [address] [place] [address] [facility] [place] [address] Referral ID Status Reason Start Date Expiration Date Visits Re quested Visits Authorized [id number] Closed 03/22/2020 1 1 Reason for Visit * Cardiology (Routine/Next Available) - Closed Specialty Diagnoses / Procedures Referred By Claire jacques Referred To Contact Cardiology Diagnoses Ventricular tachycardia (HCC-CMS) Procedures CARDIAC EVENT MONITOR Jeison Pickett DO [address] [place] [address] [facility] Cardiology [address] [place] [address] Referral ID Status Reason Start Date Expiration Date Visits Re quested Visits Authorized [id number] Closed 03/22/2020 1 1 Encounter Details Date Type Department Care Team (Latest Contact Info) Description 04/23/2020 8:53 EDT - 04/23/2020 23:59 EDT Hospital Encounter [facility] Non-Invasive Cardiology [address] [address] Ventricular tachycardia ([facility]-CMS) Discharge Disposition: Home or Self Care Social History Tobacco Use Types Packs/Day [...] No 03/18/2020 documented as of this encounter Medications at [...] tablet Take 1 Tablet by mouth daily. documented as of this encounter Discharge Disposition Disposition Code Departure Means Destination Home or Self Care documented in this encounter Plan of Treatment Upcoming Encounters Date Type Department Care Team (Late st Contact Info) Description 08/08/2024 13:00 EST Office Visit [facility] Gastroenterology - [address] [id number] Kera Tatum PA-C [address] [place] [address], [address] [place] [id number] documented as of this encounter Procedures Procedure Name Priority Date/Time Associated Diagnosis Comments 30 DAY MICROCHIP SPECIALIST Routine 04/23/2020 8:54 EDT Ventricular tachycardia (HCC-CMS) documented in this encounter Results * CARDIAC EVENT MONITOR (04/23/2020 8:54 EDT) Anatomical Region Laterality Modality Other Narrative 04/23/2020 10:31 EDT Baseline rhythm is sinus No arrhythmias No symptoms reported Jeison Pickett DO CARDIAC SERVICES ORD ERABLES documented in this encounter Visit Diagnoses Diagnosis Ventricular tachycardia ([facility]-CMS) Paroxysmal ventricular tachycardia documented in this encounter Care Teams Long Distance Operator Relationship Specialty Start Date End Date Denise Hooker, JENNIFER [address] [place] [address] PCP - General 09/13/18 documented as of this encounter
--- OUTSIDE RECORDS SUMMARY | 2024-03-04 00:26 | XMS_ITS | Encounter Summary ---
Author Organization [facility] Address [address] [place] [address] Care Team Providers Care Filling Separator Name Role Phone MorroLilia galvanhryn Jemma RODRIGUEZ Primary Care Provider [phone] Reason for Referral * Cardiology (Routine/Next Available) - Closed Specialty Diagnoses / Procedures Referred By Claire jacques Referred To Contact Cardiology Diagnoses Ventricular tachycardia ([facility]) Procedures CARDIAC EVENT MONITOR Jeison Pickett DO [address] [place], [place] [id number] [facility] Cardiology [address] [place] [address] [place] [address] Referral ID Status Reason Start Date Expiration Date Visits Re quested Visits Authorized [id number] Closed 03/22/2020 1 1 Reason for Visit * Auth/Cert Specialty Diagnoses / Procedures Referred By Claire jacques Referred To Contact Diagnoses NSTEMI (non-ST elevated myocardial infarction) ([facility]) NSTEMI Referral ID Status Reason Start Date Expiration Date Visits Re quested Visits Authorized [id number] 1 1 Encounter Details Date Type Department Care Team (Late st Contact Info) Description 03/18/2020 23:05 EDT - 03/22/2020 16:22 EDT Hospital Encounter [facility] Cardiac Unit [address] [place], [place] [id number] Ash Cruz MD 111 [facility] 1 [place] [address] Robinson Lan Sa, MD [address] [facility] [address] [place] [address] Shantell Manuel MD [address] [place] [address] Ventricular tachycardia (HCC-CMS) (Primary Dx); Essential hypertension; NSTEMI (non-ST elevated myocardial infarction) (HCC-CMS); Type 2 diabetes mellitus with vascular disease (HCC-CMS); NSVT (nonsustained ventricular tachycardia) (HCC-CMS); Atherosclerosis of coronary artery without angina pectoris, unspecified vessel or lesion type, unspecified whether [place] or transplanted heart; Other specified disorders of arteries and arterioles (HCC-CMS); Stenosis of coronary stent, initial encounter; Old myocardial infarction; Hyperlipidemia with target LDL less than 70; Insulin-requiring or dependent type II diabetes mellitus (HCC-CMS); Family history of ischemic heart disease Discharge Disposition: Home or Self Care Social [...] Problems and Procedures Admitting Diagnosis: Ventricular tachycardia ([facility]) Final Hospital Diagnosis: NSTEMI, nonsustained ventricular tachycardia Additional Problems Managed in the Hospital Active Hospital Problems Diagnosis Date Noted ??? Type 2 diabetes mellitus with vascular disease ([facility]) 03/19/2020 ??? NSVT (nonsustained ventricular tachycardia) ([facility]) 03/19/2020 ??? Hypertensive disorder 09/07/2009 ??? Diabetes mellitus ([facility]) 09/07/2009 Oral agent - metformin Resolved Hospital Problems Diagnosis Date Noted Date Resolved ??? *NSTEMI (non-ST elevated myocardial infarction) ([facility]) 03/19/2020 03/22/2020 Principal Procedure: Left heart catheterization Date: 03/19/20 Secondary Procedures: Not applicable Hospital Course Claudia Batista is a 64-year-old man with a history of CAD ([place] x2, stents x9), HTN, and HLD who was transferred from [facility] on 03/19 for management of NSTEMI. Left heart catheterization was performed and confirmed patent stents and mild coronary artery disease unchanged from prior. He was managed medically with Isordil 5 mg TID, which he tolerated well, inaddition to his [employer]CHING [employer]OR amlodipine, lisinopril, and metoprolol. This was subsequently [...] 13:00 Office Visit with Letty Mackey MD [facility] Gastroenterology [facility] (--) [address] [facility] [address] Follow-up appointments and procedures Amb Consult/Follow Up [...] Code Departure Means Destination Home or Self Usp documented in this encounter Progress Notes * Mata Thorne MD - 03/22/2020 0928 EDT Cardiology [...] history. Presents as a direct transfer from [facility] for further work-up of a [...] daily - ticagrelor 90mg BID - continue [employer] rosuvastatin 40 mg daily NSVT: noted on telemetry overnight following admission. Asymptomatic (pt sleeping). No recurrence. Cardiac MRI obtained 03/21 showing a small infarct in the basilar inferior wall of the LV. - EP consulted, recommendations pending CAD/HTN/HLD -Continue aspirin 81 mg daily -Continue CRUT[employer]ING [employer]OR amlodipine 10 mg -Continue lisinopril 5 mg daily -Continue metoprolol XL 150 mg daily ?? Type 2 Diabetes: A1c 7.4% on admission, [employer] insulin regimen 40 units glargine twice daily. - Lantus held last night, currently NPO with elevated AM glucose - When PO, resume Lantus 20U BID + consistent carb diet - POCT Glc Q6 while NPO then before meals and qhs - Sliding scale with aspart Q6 while NPO - Continue to hold [employer]ING [employer] metformin, dapagliflozin, exenatide ?? Depression/sleep -Continue [employer]ING [employer]OR sertraline 50 mg daily -Continue [employer]ING [employer] trazodone 50 mg daily ?? Diet: NPO VTE Prophylaxis: heparin 5000 subcutaneous q 8 hrs CODE STATUS: Full Discharge Plan Pending plan from SALIMA THORNE MD 03/22/2020 9:28 * Shantell Manuel [...] history. Presents as a direct transfer from [facility] for further work-up of a [...] daily - ticagrelor 90mg BID - continue [employer] rosuvastatin 40 mg daily - replete if Mg <2 or K <4 NSVT: noted on telemetry overnight following admission. Asymptomatic (pt sleeping). No recurrence. - EP consulted - Cardiac MRI - scheduled for today at 1300 - Depending on MRI findings, either d/c with meds + monitor, or consider ICD CAD/HTN/HLD -Continue aspirin 81 mg daily -Continue [employer] amlodipine 10 mg -Continue lisinopril 5 mg daily -Continue metoprolol XL 150 mg daily ?? Type 2 Diabetes: A1c 7.4% on admission, [employer] insulin regimen 40 units glargine twice daily. - Currently normoglycemic and NPO, Lantus held - When PO, resume Lantus 20U BID + consistent carb diet - POCT Glc Q6 while NPO then before meals and qhs - Sliding scale with aspart Q6 while NPO - Continue to hold [employer]ING [employer]OR metformin, dapagliflozin, exenatide ?? Depression/sleep -Continue [employer]OR sertraline 50 mg daily -Continue [employer]ING [employer]OR trazodone 50 mg daily ?? Diet: NPO [...] CBC: Recent Labs 03/19/20 0151 03/19/20 0546 03/20/20210 WBC 8.25 7.59 8.07 HGB 14.4 14.4 14.1 HCT 41.5 42.2 42.2 MCV 82 82 83 PLT 234 256 212 BMP: Recent Labs 03/19/20 0151 03/20/20210 CREATININE 0.69 0.79 NA 140 138 K [...] history. Presents as a direct transfer from [facility] for further work-up of a [...] needed, thus far has not - continue [employer] rosuvastatin 40 mg daily - replete if Mg <2 or K <4 - Goal SBP <140 and HR <70 NSVT: noted on telemetry overnight following admission. Asymptomatic (pt sleeping). - EP consulted - Cardiac MRI - ordered, to be performed tomorrow CAD/HTN/HLD -Continue aspirin 81 mg daily -Continue [employer] amlodipine 10 mg -Continue lisinopril 5 mg daily -Continue metoprolol XL 150 mg daily ?? Type 2 Diabetes: A1c 7.4% on admission, [employer] insulin regimen 40 units glargine twice daily. - Currently NPO and receiving Lantus 20U BID - Continue to hold [employer] metformin, dapagliflozin, exenatide - Consistent carbohydrate diet when eating - POCT Glc Q6 while NPO then before meals and qhs -Sliding scale with aspart Q6 while NPO ?? Depression/sleep -Continue [employer] sertraline 50 mg daily -Continue [employer] trazodone 50 mg daily ?? Diet: NPO [...] symptoms. Shantell Manuel MD 03/21/2020 7:00 * Juli Leearet - 03/19/2020 7643 EDT Initial Case Management/Social Work Assessment and Discharge Plan/Readmission Risk Assessment REASON FOR ADMISSION: NSTEMI (non-ST elevated myocardial infarction) ([facility]) Patient understands reason for admission: Yes PATIENT CONTACT INFO VERIFIED: Yes(Sister kala Tirado [phone]) PATIENT ADDRESS VERIFIED: Yes LIVING ARRANGEMENTS AND [...] Chart: Yes, previous copy on file @ [facility] DIRECTIVES FOR FINANCES: TRANSPORTATION: Transportation: Family CULTURAL, YARSANI and/or LANGUAGE factors affecting health care/discharge planning: Spiritual/Cultural Requests: None Any factors affecting health care/discharge planning?: No Insurance in Place: Yes Medical Insurance: Yes Type of insurance: Commercial insurance Commercial coverage: [employer] Referred to patient financial services: No [...] Care Provider: Denise Hooker PCP Verified: Yes(Denise Hooker APRN) Specialists: Type of Home Health Services: None DME Provider: None Pharmacy: [facility] [address] [facility] [address] [facility] [address] [address] [facility] [address] [facility] [address] [facility] [address] [facility] [place], [place] - [address] [facility] [address] [facility] [address] [facility] [address] [facility] - [place], [place] - [address] [facility] [address] [facility] [address] Home Health: None Other: POST HOSPITAL TRANSITION PLAN: Case management will continue to follow through transition to discharge. Patient's family can provide transportation. Patient is awaiting [facility] and treatment plan. No needs are identified at this time. Patient has Meds to Beds. Jo Lee comber operator #[id number] * Bettie Feliz MD - 03/19/2020 0632 EDT Scientific Editor Addendum to H&P Mr. Claudia Batista is a 64YOM with PMHx pertinent for HTN, HLD, DMII and CAD (s/p multiple PCIs w/ stenting of LAS and RCA; last PCI to mid LAD 01/2016; LHC w/o flow limiting dx in 11/2018) who presents in transfer from [facility] after episode of jaw pain. This AM after cutting wood and noted the onset of intermittent episodes of achy bilateral jaw pain which improved w/ SL nitrox2 but quickly returned. During this he sought medical attention. At [facility] initial trop was negative with second troponin [...] and/or intervention to the patient (or responsible libertarian) and have answered the patient's (or responsible libertarian's)questions. To the best of my knowledge, the patient (or responsible libertarian) has been adequately informed. The patient (or responsible libertarian) has consented to the interventional cardiac procedure. As part of the consent we reviewed that, like surgical procedures, interventional procedures require aggressive short term support to determine the potential benefits of the procedures. For this reason, the patient (or responsible libertarian) has agreed to remain FULL CODE for [...] history. Presents as a direct transfer from [facility] for further work-up of a [...] EMS to present to emergency department at [facility]. Patient reports that this jaw [...] 2003 stents X2 ??? Diabetes mellitus ([facility]) oral agents ??? Diverticulitis ??? Hyperlipidemia ??? Hypertension ??? [place] (myocardial infarction) ([facility]) 1992, 2003 ??? Recurrent infections [...] history. Presents as a direct transfer from [facility] for further work-up of a [...] gtt - supplemental O2 if needed -Continue [employer] rosuvastatin 40 mg daily - NPO at midnight for potential intervention (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 microspheres - Consistent carbohydrate diet when eating - POCT Glc Q6 while NPO then before meals and qhs -Sliding scale with aspart Q6 while NPO Depression/sleep -Continue [employer]ING [employer]OR sertraline 50 mg daily -Continue CR[employer]ING [employer]OR trazodone 50 mg daily Diet: NPO VTE [...] * Nash Herron Jr., MD - 03/19/2020 0242 EDT Cardiovascular Catheterization Laboratory Preliminary Report -- [...] artery Procedure: He was brought to [facility] Cardiac Catheterization Laboratory for the procedure: [...] Herron Jr., MD PagerNumber: [phone] 03/19/2020 15:53 * Shantell Manuel MD - 03/19/2020 8920 EDT Cardiology Progress note Service Date: 03/19/2020 [...] 72 hours. Cardiac Biomarkers: Recent Labs 03/19/20 015 TROPONINI 0.214* Lipids: No results for input(s): [...] history. Presents as a direct transfer from [facility] for further work-up of a [...] gtt - supplemental O2 if needed -Continue CRUTCHING [employer]OR rosuvastatin 40 mg daily - NPO at midnight for potential intervention ([facility]) or other testing if needed - ordered lipid profile and A1c - echo ordered - replete if Mg <2 or K <4 - Goal SBP <140 and HR <70 ?? CAD/HTN/HLD -Continue aspirin 81 mg daily -Continue CR[employer]ING [employer]OR amlodipine 10 mg -Continue lisinopril 5 mg daily -Continue metoprolol XL 150 mg daily ?? Type 2 Diabetes: A1c ordered, CRUT[employer]ING [employer]OR insulin regimen 40 units glargine twice daily -Decrease CRUTCHING [employer]OR insulin regimen to 30 units twice daily -Hold CRUTCHING [employer]OR metformin 1000 twice daily -Hold CRUTCHING [employer]OR dapagliflozin 5 mg daily -Hold CRUTCHING [employer]OR exenatide microspheres - Consistent carbohydrate diet when eating - POCT Glc Q6 while NPO then before meals and qhs -Sliding scale with aspart Q6 while NPO ?? Depression/sleep -Continue CRUT[employer]ING [employer]OR sertraline 50 mg daily -Continue CRUTCHING [employer]OR trazodone 50 mg daily ?? Diet: NPO [...] documented in this encounter Consult Notes * Skyler Lopez MD - 03/20/2020 0658 EDT EP Cardiology Consult Attending Physician: Shantell Manuel MD Date of Service: 03/20/2020 Reason for Consult: [place] HPI: Claudia Batista is a 64 y.o. male patient with CAD (s/p multiple PCI's, DM2, HTN, HLD admitted 03/19 from [facility] for NSTEMI. Telemetry demonstrated ~40s of asymptomatic [...] Diagnosis Date ??? CAD (coronary artery disease) 09-10- PCI LAD prox MARY, LAD mid MARY, LAD distal BMS; 09-07- PCI MARY X 3 RCA; 2003 stents X2 ??? Diabetes mellitus ([facility]) oral agents ??? Diverticulitis ??? Hyperlipidemia ??? Hypertension ??? [place] (myocardial infarction) ([facility]) 1992, 2003 ??? Recurrent infections [...] file Gets together: Not on file Attends mu-ism service: Not on file Active member of [...] PCI's, DM2, HTN, HLD admitted 03/19 from [facility] for NSTEMI. Telemetry demonstrated asymptomatic [place] 03/19. [...] Case discussed with Dr. Thomas Lopez MD Scientific Editor, PGY-5 Pager [phone] Associated attestation - Bebo Guzman MD - [...] care of pt at 2300, pt s/p [facility] RRA approach with no interventions. Tele- SR [...] Jessie Mart RN - 03/20/2020 0212 EDT [id number] RdwinnieClaudia 64 y.o. male Length of stay: 2 [...] 03/19/2020 0040 EDT Data: Patient admitted to [id number] for NSTEMI. On tele patient in first [...] Info) Description 08/08/2024 13:00 EST Office Visit [facility] Gastroenterology - [address] [address] Kera Tatum PA-C [address] [place] [address], [address] [place] [address] documented as of this encounter [...] 8:48 EDT) 04/17/2020 8:48 EDT Scan 2 Hand Washer PROCEDURE/MINOR MERCEDES GICAL ORDERABLES * ECG REPORT - SCANNED (03/27/2020 10:21 EDT) 03/27/2020 10:2 1 EDT Scan 2 Hand Washer PROCEDURE/MINOR MERCEDES GICAL ORDERABLES * ECG REPORT - SCANNED (03/27/2020 10:21 EDT) 03/27/2020 10:2 1 EDT Scan 2 Hand Washer PROCEDURE/MINOR MERCEDES GICAL ORDERABLES * (ABNORMAL) POCT GLUCOSE, INTERFACED (03/22/2020 11:18 EDT) Glucose, POC 135(H) 70 - 100 mg/dL 03/22/2020 11:23 EDT [facility] accreditation coordinator ID [id number] 03/22/2020 11:23 EDT [facility] HN LAB POC COMMENT (GLUCOSE) Test Performed by Nursing Services 03/22/2020 11:23 EDT [facility] Blood CAPILLARY BLOOD / Unknown 03/22/2020 11:18 EDT 03/22/2020 11:23 EDT Joesph Wesley MD POINT OF CARE TEST O RDERABLES [facility] [address] [place] [address] * (ABNORMAL) POCT GLUCOSE, INTERFACED (03/22/2020 5:55 EDT) Glucose, POC 131(H) 70 - 100 mg/dL 03/22/2020 5:55 EDT [facility] accreditation coordinator ID [id number] 03/22/2020 5:55 EDT [facility] HN LAB POC COMMENT (GLUCOSE) Test Performed by Nursing Services 03/22/2020 5:55 EDT [facility] Blood CAPILLARY BLOOD / Unknown 03/22/2020 5:55 EDT 03/22/2020 5:55 EDT Joesph Wesley MD POINT OF CARE TEST O RDERABLES Performing Organization Address [facility]/ZIP Co de Phone Number [facility] [address] [place] [address] * POCT GLUCOSE, INTERFACED (03/21/2020 20:11 EDT) Glucose, POC 94 70 - 100 mg/dL 03/21/2020 20:12 EDT [facility] accreditation coordinator ID [id number] 03/21/2020 20:12 EDT [facility] HN LAB POC COMMENT (GLUCOSE) Test Performed by Nursing Services 03/21/2020 20:12 EDT [facility] Blood CAPILLARY BLOOD / Unknown 03/21/2020 20:11 EDT 03/21/2020 20:12 EDT Joesph Wesley MD POINT OF CARE TEST O RDERABLES [facility] [address] [place] [address] * (ABNORMAL) POCT GLUCOSE, INTERFACED (03/21/2020 17:21 EDT) Glucose, POC 199(H) 70 - 100 mg/dL 03/21/2020 17:22 EDT [facility] accreditation coordinator ID [id number] 03/21/2020 17:22 EDT [facility] HN LAB POC COMMENT (GLUCOSE) Test Performed by Nursing Services 03/21/2020 17:22 EDT [facility] Blood CAPILLARY BLOOD / Unknown 03/21/2020 17:21 EDT 03/21/2020 17:22 EDT Joesph Wesley MD POINT OF CARE TEST O RDERABLES [facility] [address] [place] [address] * MR CARDIAC W WO CONTRAST (03/21/2020 [...] Minimal hypokinesis inferior wall. Mid heart: normal. [place]: normal. The left ventricular chamber is normal [...] Minimal hypokinesis inferior wall. Mid heart: normal. [place]: normal. The left ventricular chamber is normal [...] above interpretation andagree with the findings. Jeison Nieves DO IMG MRI ORDERABLES * XR ORBITS FOR FOREIGN [...] air cells are clear. Jeison Pickett DO IMG DIAGNOSTIC IMAGI NG ORDERABLES * (ABNORMAL) POCT GLUCOSE, INTERFACED (03/21/2020 12:03 EDT) Glucose, POC 138(H) 70 - 100 mg/dL 03/21/2020 12:18 EDT [facility] accreditation coordinator ID [id number] 03/21/2020 12:18 EDT [facility] HN LAB POC COMMENT (GLUCOSE) Test Performed by Nursing Services 03/21/2020 12:18 EDT [facility] Blood CAPILLARY BLOOD / Unknown 03/21/2020 12:03 EDT 03/21/2020 12:18 EDT Joesph Wesley MD POINT OF CARE TEST O RDERABLES [facility] [address] [place] [address] * CREATININE (03/21/2020 5:59 EDT) Creatinine 0.71 0.66 - 1.25 mg/dL 03/21/2020 6:46 EDT [facility] eGFR 98 >60 mL/min/1.7 3m2 03/21/2020 6:46 EDT [facility] Comment:eGFR calculated rut yadav CKD-EPI equation for non- Americans. Multiply eGFR by 1.16 for patients. Blood VENOUS BLOOD / Unknown Venipuncture / Unknown 03/21/2020 5:59 EDT 03/21/2020 6:14 EDT Joesph Wesley MD CHEMISTRY & BLOOD GA S ORDERABLES Performing Organization Address [facility] de Phone Number [facility] [address] [place] [address] * ELECTROLYTES (03/21/2020 5:59 EDT) Sodium 141 136 - 145 mEq/L 03/21/2020 6:46 EDT [facility] Potassium 4.7 3.5 - 5.0 mEq/L 03/21/2020 6:46 EDT [facility] Chloride 100 96 - 110 mEq/L 03/21/2020 6:46 EDT [facility] CO2 Total 28 22 - 32 mEq/L 03/21/2020 6:46 EDT [facility] Blood VENOUS BLOOD / Unknown Venipuncture / Unknown 03/21/2020 5:59 EDT 03/21/2020 6:14 EDT Joesph Wesley MD CHEMISTRY & BLOOD GA S ORDERABLES Performing Organization Address [facility] de Phone Number [facility] [address] [place] [address] * COMPLETE BLOOD COUNT (03/21/2020 5:59 EDT) WBC 6.44 4.00 - 10.40 K/cmm 03/21/2020 6:25 EDT [facility] RBC 5.16 4.36 - 5.78 M/cmm 03/21/2020 6:25 EDT [facility] Hemoglobin 14.4 13.8 - 17.3 gm/dL 03/21/2020 6:25 EDT [facility] HCT 43.1 39.5 - 50.2 % 03/21/2020 6:25 EDT [facility] MCV 84 81 - 95 fl 03/21/2020 6:25 EDT [facility] MCH 27.9 27.6 - 33.0 pg 03/21/2020 6:25 EDT [facility] MCHC 33.4 32.8 - 36.4 gm/dL 03/21/2020 6:25 EDT [facility] RDW-CV 13.5 <14.2 % 03/21/2020 6:25 EDT [facility] RDW-SD 41.6 <46.0 fl 03/21/2020 6:25 EDT [facility] PLT 223 141 - 377 K/cmm 03/21/2020 6:25 EDT [facility] MPV 10.1 9.5 - 12.7 fl 03/21/2020 6:25 EDT [facility] Blood VENOUS BLOOD / Unknown Venipuncture / Unknown 03/21/2020 5:59 EDT 03/21/2020 6:17 EDT Joesph Wesley MD HEMATOLOGY & PF4 ORD ERABLES [facility] [address] [place] [address] * (ABNORMAL) POCT GLUCOSE, INTERFACED (03/21/2020 5:58 EDT) Glucose, POC 117(H) 70 - 100 mg/dL 03/21/2020 5:59 EDT [facility] accreditation coordinator ID [id number] 03/21/2020 5:59 EDT [facility] HN LAB POC COMMENT (GLUCOSE) Test Performed by Nursing Services 03/21/2020 5:59 EDT [facility] Blood CAPILLARY BLOOD / Unknown 03/21/2020 5:58 EDT 03/21/2020 5:59 EDT Joesph Wesley MD POINT OF CARE TEST O RDERABLES Performing Organization Address City/[facility]/ZIP Co de Phone Number [facility] [address] [place] [address] * (ABNORMAL) POCT GLUCOSE, INTERFACED (03/20/2020 20:23 EDT) Glucose, POC 109(H) 70 - 100 mg/dL 03/20/2020 20:38 EDT [facility] accreditation coordinator ID [id number] 03/20/2020 20:38 EDT [facility] HN LAB POC COMMENT (GLUCOSE) Test Performed by Nursing Services 03/20/2020 20:38 EDT [facility] Blood CAPILLARY BLOOD / Unknown 03/20/2020 20:23 EDT 03/20/2020 20:37 EDT Shantell Manuel MD POINT OF CARE TEST O RDERABLES Performing Organization Address [facility] Co de Phone Number [facility] [address] [place] [address] * (ABNORMAL) POCT GLUCOSE, INTERFACED (03/20/2020 16:53 EDT) Glucose, POC 119(H) 70 - 100 mg/dL 03/20/2020 16:59 EDT [facility] accreditation coordinator ID [id number] 03/20/2020 16:59 EDT [facility] HN LAB POC COMMENT (GLUCOSE) Test Performed by Nursing Services 03/20/2020 16:59 EDT [facility] Blood CAPILLARY BLOOD / Unknown 03/20/2020 16:53 EDT 03/20/2020 16:59 EDT Joesph Wesley MD POINT OF CARE TEST O RDERABENITO Performing Organization Address City/[facility]/ZIP Co de Phone Number [facility] [address] [place] [address] * (ABNORMAL) POCT GLUCOSE, INTERFACED (03/20/2020 12:23 EDT) Glucose, POC 115(H) 70 - 100 mg/dL 03/20/2020 12:24 EDT [facility] accreditation coordinator ID [id number] 03/20/2020 12:24 EDT [facility] HN LAB POC COMMENT (GLUCOSE) Test Performed by Nursing Services 03/20/2020 12:24 EDT [facility] Blood CAPILLARY BLOOD / Unknown 03/20/2020 12:23 EDT 03/20/2020 12:24 EDT Joesph Wesley MD POINT OF CARE TEST O RDERABLES [facility] [address] [place] [address] * (ABNORMAL) POCT GLUCOSE, INTERFACED (03/20/2020 6:00 EDT) Glucose, POC 103(H) 70 - 100 mg/dL 03/20/2020 6:04 EDT [facility] accreditation coordinator ID [id number] 03/20/2020 6:04 EDT [facility] HN LAB POC COMMENT (GLUCOSE) Test Performed by Nursing Services 03/20/2020 6:04 EDT [facility] Blood CAPILLARY BLOOD / Unknown 03/20/2020 6:00 EDT 03/20/2020 6:04 EDT Shantell Manuel MD POINT OF CARE TEST O RDERABLES [facility] [address] [place] [address] * (ABNORMAL) POCT GLUCOSE, INTERFACED (03/20/2020 3:08 EDT) Glucose, POC 108(H) 70 - 100 mg/dL 03/20/2020 3:09 EDT [facility] accreditation coordinator ID [id number] 03/20/2020 3:09 EDT [facility] HN LAB POC COMMENT (GLUCOSE) Test Performed by Nursing Services 03/20/2020 3:09 EDT [facility] Blood CAPILLARY BLOOD / Unknown 03/20/2020 3:08 EDT 03/20/2020 3:09 EDT Joesph Wesley MD POINT OF CARE TEST O RDERABLES [facility] [address] [place] [address] * (ABNORMAL) TROPONIN I (03/20/2020 2:11 EDT) Troponin I (ng/mL) 0.140(H) <0.034 ng/mL 03/20/2020 2:54 EDT [facility] Blood VENOUS BLOOD / Unknown Venipuncture / Unknown 03/20/2020 2:11 EDT 03/20/2020 2:15 EDT Narrative [facility] - 03/20/2020 2:54 EDT The results of this assay can be falsely lowered due to the consumption of Biotin. Joesph Wesley MD CHEMISTRY & BLOOD GA S ORDERABLES Performing Organization Address [facility] Co de Phone Number [facility] [address] [place] [address] * CREATININE (03/20/2020 2:11 EDT) Creatinine 0.79 0.66 - 1.25 mg/dL 03/20/2020 2:40 EDT [facility] eGFR 94 >60 mL/min/1.7 3m2 03/20/2020 2:40 EDT [facility] Comment:eGFR calculated rut g CKD-EPI equation for non- Americans. Multiply eGFR by 1.16 for patients. Blood VENOUS BLOOD / Unknown Venipuncture / Unknown 03/20/2020 2:11 EDT 03/20/2020 2:15 EDT Joesph Wesley MD CHEMISTRY & BLOOD GA S ORDERABLES Performing Organization Address City/[facility]/ZIP Co de Phone Number [facility] [address] [place] [address] * ELECTROLYTES (03/20/2020 2:11 EDT) Sodium 138 136 - 145 mEq/L 03/20/2020 2:40 EDT [facility] Potassium 4.3 3.5 - 5.0 mEq/L 03/20/2020 2:40 EDT [facility] Chloride 99 96 - 110 mEq/L 03/20/2020 2:40 EDT [facility] CO2 Total 30 22 - 32 mEq/L 03/20/2020 2:40 EDT [facility] Blood VENOUS BLOOD / Unknown Venipuncture / Unknown 03/20/2020 2:11 EDT 03/20/2020 2:15 EDT Joesph Wesley MD CHEMISTRY & BLOOD GA S ORDERABLES [facility] [address] [place] [address] * COMPLETE BLOOD COUNT (03/20/2020 2:11 EDT) WBC 8.07 4.00 - 10.40 K/cmm 03/20/2020 2:21 [facility] RBC 5.09 4.36 - 5.78 M/cmm 03/20/2020 2:21 [facility] Hemoglobin 14.1 13.8 - 17.3 gm/dL 03/20/2020 2:21 [facility] HCT 42.2 39.5 - 50.2 % 03/20/2020 2:21 [facility] MCV 83 81 - 95 fl 03/20/2020 2:21 [facility] MCH 27.7 27.6 - 33.0 pg 03/20/2020 2:21 [facility] MCHC 33.4 32.8 - 36.4 gm/dL 03/20/2020 2:21 [facility] RDW-CV 13.7 <14.2 % 03/20/2020 2:21 [facility] RDW-SD 41.1 <46.0 fl 03/20/2020 2:21 [facility] PLT 212 141 - 377 K/cmm 03/20/2020 2:21 [facility] MPV 10.2 9.5 - 12.7 fl 03/20/2020 2:21 [facility] Blood VENOUS BLOOD / Unknown Venipuncture / Unknown 03/20/2020 2:11 EDT 03/20/2020 2:15 EDT Joesph Wesley MD HEMATOLOGY & PF4 ORD ERABLES [facility] [address] [place] [address] * POCT GLUCOSE, INTERFACED (03/19/2020 23:37 EDT) Glucose, POC 79 70 - 100 mg/dL 03/19/2020 23:42 EDT [facility] accreditation coordinator ID [id number] 03/19/2020 23:42 EDT [facility] HN LAB POC COMMENT (GLUCOSE) Test Performed by Nursing Services 03/19/2020 23:42 EDT [facility] Blood CAPILLARY BLOOD / Unknown 03/19/2020 23:37 EDT 03/19/2020 23:42 EDT Joesph Wesley MD POINT OF CARE TEST O RACHEL Performing Organization Address [facility]/ZIP Co de Phone Number [facility] [address] [place] [address] * (ABNORMAL) POCT GLUCOSE, INTERFACED (03/19/2020 21:00 EDT) Glucose, POC 144(H) 70 - 100 mg/dL 03/19/2020 21:01 EDT [facility] accreditation coordinator ID [id number] 03/19/2020 21:01 EDT [facility] HN LAB POC COMMENT (GLUCOSE) Test Performed by Nursing Services 03/19/2020 21:01 EDT [facility] Blood CAPILLARY BLOOD / Unknown 03/19/2020 21:00 EDT 03/19/2020 21:00 EDT Shantell Manuel MD POINT OF CARE TEST O RDERABLES Performing Organization Address City/[facility]/ZIP Co de Phone Number [facility] [address] [place] [address] * POCT GLUCOSE, INTERFACED (03/19/2020 18:00 EDT) Glucose, POC 81 70 - 100 mg/dL 03/19/2020 18:00 EDT [facility] accreditation coordinator ID [id number] 03/19/2020 18:00 EDT [facility] HN LAB POC COMMENT (GLUCOSE) Test Performed by Nursing Services 03/19/2020 18:00 EDT [facility] Blood CAPILLARY BLOOD / Unknown 03/19/2020 18:00 EDT 03/19/2020 18:00 EDT Joesph Wesley MD POINT OF CARE TEST O RDERABLES Performing Organization Address [facility] de Phone Number [facility] [address] [place] [address] * (ABNORMAL) TROPONIN I (03/19/2020 17:56 EDT) Troponin I (ng/mL) 0.151(H) <0.034 ng/mL 03/19/2020 18:53 EDT [facility] Blood VENOUS BLOOD / Unknown Venipuncture / Unknown 03/19/2020 17:56 EDT 03/19/2020 18:12 EDT Narrative [facility] - 03/19/2020 18:53 EDT The results of this assay can be falsely lowered due to the consumption of Biotin. Joesph Wesley MD CHEMISTRY & BLOOD GA S ORDERABLES Performing Organization Address [facility] de Phone Number [facility] [address] [place] [address] * LEFT HEART CATH (03/19/2020 16:03 EDT) Anatomical Region Laterality Modality Customer Acquisition Specialist 03/19/2020 15:0 9 EDT Narrative 03/21/2020 10:30 EDT Cardiology [address] [place] [address] Catheterization Laboratory Study Patient: Claudia Batista ? Study Date: ?03/19/2020 ?Accession #: ? [id number] : ? 1955 Referring: Joesph Wesley Diagnostic Attending: ??Nash Herron Interventional Attending: ?? Nash Hreron Diagnostic Fellow: Luis Garcia Interventional Fellow: Chaparrita [...] Right radial artery access. A 6 Fr/10/.021 Parlin Sheath SLENDER ?? sheath was advanced into [...] EDT) [place] Atrial Length A2C 5.2 cm [facility] [...] CARE LVOT mean velocity, S 0.7 m/s [facility] POINT OF CARE Mitral E-wave peak velocity 0.7 m/s [facility] POINT OF CARE Mitral A-wave peak velocity 0.9 m/s [facility] POINT OF CARE LV Systolic Volume Index 22.0 mL/m2 [facility] POINT OF CARE LV Diastolic Volume Index 54.0 mL/m2 [facility] POINT OF CARE LA Atrial Length A4C 5.2 cm [facility] POINT OF CARE LVOT ID, S 2.1 cm [facility] POI NT OF CARE EF 59 % [facility] POIN T OF CARE LA volume, ES, BP 53.0 ml [facility] POINT OF CARE LA volume/bsa, ES, A4C 17.0 ml/m2 [facility] POINT OF CARE LA volumes, ES, A4C 37.0 ml [facility] POINT OF CARE LA volume/bsa, ES, BP 24.0 ml/m2 [facility] POINT OF CARE LV Systolic Volume 48 mL [facility] POINT OF CARE LV Diastolic Volume 117 mL [facility] POINT OF CARE Stroke index (SV/bsa) LVOT DP 38.0 ml/m2 [facility] POINT OF CARE Interventricular Septum to Posterior Wall Thickness Ratio 0.9 [facility] P OINT OF CARE IVS thickness, ED, PLAX 0.9 cm [facility] POINT OF CARE LV e', medial 0.06 m/s [facility] POINT OF CARE LV e', average 0.07 m/s [facility] POINT OF CARE Pulmonic valve mean velocity, S 1 cm/s [facility] POINT OF CARE Ascending aorta ID, a-p 3.1 cm [facility] POINT OF CARE LA Atrial Area A2C 15.5 cm2 [facility] POINT OF CARE LA/aortic root ratio 1.09 [...] color Doppler.The study was interpreted by [facility]. Pertinent images and [...] 70 - 100 mg/dL 03/19/2020 11:53 EDT [facility] accreditation coordinator ID [id number] 03/19/2020 11:53 EDT [facility] HN LAB POC COMMENT (GLUCOSE) Test Performed by Nursing Services 03/19/2020 11:53 EDT [facility] Blood CAPILLARY BLOOD / Unknown 03/19/2020 11:52 EDT 03/19/2020 11:53 EDT Joesph Wesley MD POINT OF CARE TEST O RDERABLES [facility] [address] [place] [address] * HEPARIN LEVEL - UNFRACTIONATED HEPARIN (03/19/2020 9:02 EDT) Heparin Level-UFH 0.36 Therapeutic Range: 0.30 - 0.70 IU/mL 03/19/2020 9:35 EDT [facility] Comment:Unfractionated hepar in therapeutic range [...] & PF4 ORD ERABLES Performing Organization Address City/[facility]/ZIP Co de Phone Number [facility] [address] [place] [address] * (ABNORMAL) TROPONIN I (03/19/2020 9:01 EDT) Pathologist [facility] Troponin I (ng/mL) 0.191(H) <0.034 ng/mL 03/19/2020 10:49 EDT [facility] Blood VENOUS BLOOD / Unknown Venipuncture / Unknown 03/19/2020 9:01 EDT 03/19/2020 10:09 EDT Narrative [facility] - 03/19/2020 10:49 EDT The results of this assay can be falsely lowered due to the consumption of Biotin. Joesph Wesley MD CHEMISTRY & BLOOD GA S ORDERABLES Performing Organization Address [facility] Co de Phone Number [facility] [address] [place] [address] * (ABNORMAL) POCT GLUCOSE, INTERFACED (03/19/2020 6:51 EDT) [facility] Glucose, POC 128(H) 70 - 100 mg/dL 03/19/2020 6:53 EDT [facility] accreditation coordinator ID [id number] 03/19/2020 6:53 EDT [facility] HN LAB POC COMMENT (GLUCOSE) Test Performed by Nursing Services 03/19/2020 6:53 EDT [facility] Blood CAPILLARY BLOOD / Unknown 03/19/2020 6:51 EDT 03/19/2020 6:53 EDT Robinson arriaga Sa, MD POINT OF CARE T EST ORDERABLES Performing Organization Address [facility] Co de Phone Number [facility] [address] [place] [address] * COMPLETE BLOOD COUNT (03/19/2020 5:46 EDT) [facility] WBC 7.59 4.00 - 10.40 K/cmm 03/19/2020 6:36 EDT [facility] RBC 5.13 4.36 - 5.78 M/cmm 03/19/2020 6:36 EDT [facility] Hemoglobin 14.4 13.8 - 17.3 gm/dL 03/19/2020 6:36 EDT [facility] HCT 42.2 39.5 - 50.2 % 03/19/2020 6:36 EDT [facility] MCV 82 81 - 95 fl 03/19/2020 6:36 EDT [facility] MCH 28.1 27.6 - 33.0 pg 03/19/2020 6:36 EDT [facility] MCHC 34.1 32.8 - 36.4 gm/dL 03/19/2020 6:36 T [facility] RDW-CV 13.8 <14.2 % 03/19/2020 6:36 EDT [facility] RDW-SD 40.7 <46.0 fl 03/19/2020 6:36 T [facility] PLT 256 141 - 377 K/cmm 03/19/2020 6:36 EDT [facility] MPV 11.1 9.5 - 12.7 fl 03/19/2020 6:36 EDT [facility] Blood VENOUS BLOOD / Unknown Venipuncture / Unknown 03/19/2020 5:46 EDT 03/19/2020 6:21 EDT Joesph Wesley MD HEMATOLOGY & PF4 ORD ERABLES [facility] [address] [place] [address] * POCT GLUCOSE, INTERFACED (03/19/2020 2:56 EDT) Glucose, POC 88 70 - 100 mg/dL 03/19/2020 2:56 EDT [facility] accreditation coordinator ID [id number] 03/19/2020 2:56 EDT [facility] HN LAB POC COMMENT (GLUCOSE) Test Performed by Nursing Services 03/19/2020 2:56 EDT [facility] Blood CAPILLARY BLOOD / Unknown 03/19/2020 2:56 EDT 03/19/2020 2:56 EDT Joesph Wesley MD POINT OF CARE TEST O RDERABLES Performing Organization Address [facility]/ZIP Co de Phone Number [facility] [address] [place] [address] * (ABNORMAL) HEMOGLOBIN A1C (03/19/2020 1:51 EDT) Hemoglobin A1c 7.4(H) <5.7 % 03/19/2020 8:30 EDT [facility] Comment: Glycemic Status References: Normal: [...] Avg Glucose 166 mg/dL 0 8:30 EDT [facility] Comment:The eAG represents t he A1c result expressed as average glucose in mg/dL. Blood VENOUS BLOOD / Unknown Venipuncture / Unknown 03/19/2020 1:51 EDT 03/19/2020 1:55 EDT Joesph Wesley MD CHEMISTRY & BLOOD GA S ORDERABLES Performing Organization Address City/[facility]/ZIP Co de Phone Number [facility] [address] [place] [address] * (ABNORMAL) TROPONIN I (03/19/2020 1:51 EDT) Troponin I (ng/mL) 0.214(H) <0.034 ng/mL 03/19/2020 2:32 EDT [facility] Blood VENOUS BLOOD / Unknown Venipuncture / Unknown 03/19/2020 1:51 EDT 03/19/2020 1:55 EDT Narrative [facility] - 03/19/2020 2:32 EDT The results of this assay can be falsely lowered due to the consumption of Biotin. Joesph Wesley MD CHEMISTRY & BLOOD GA S ORDERABLES Performing Organization Address [facility] Co de Phone Number [facility] [address] [place] [address] * CREATININE (03/19/2020 1:51 EDT) Creatinine 0.69 0.66 - 1.25 mg/dL 03/19/2020 2:18 EDT [facility] eGFR 100 >60 mL/min/1.7 3m2 03/19/2020 2:18 EDT [facility] Comment:eGFR calculated rut yadav CKD-EPI equation for non- Americans. Multiply eGFR by 1.16 for patients. Blood VENOUS BLOOD / Unknown Venipuncture / Unknown 03/19/2020 1:51 EDT 03/19/2020 1:55 EDT Joesph Wesley MD CHEMISTRY & BLOOD GA S ORDERABLES Performing Organization Address [facility] Co de Phone Number [facility] [address] [place] [address] * ELECTROLYTES (03/19/2020 1:51 EDT) Sodium 140 136 - 145 mEq/L 03/19/2020 2:18 EDT [facility] Potassium 3.8 3.5 - 5.0 mEq/L 03/19/2020 2:18 EDT [facility] Chloride 100 96 - 110 mEq/L 03/19/2020 2:18 EDT [facility] CO2 Total 28 22 - 32 mEq/L 03/19/2020 2:18 EDT [facility] Blood VENOUS BLOOD / Unknown Venipuncture / Unknown 03/19/2020 1:51 EDT 03/19/2020 1:55 EDT Joesph Wesley MD CHEMISTRY & BLOOD GA S ORDERABLES Performing Organization Address City/[facility]/ZIP Co de Phone Number [facility] [address] [place] [address] * COMPLETE BLOOD COUNT (03/19/2020 1:51 EDT) WBC 8.25 4.00 - 10.40 K/cmm 03/19/2020 2:04 EDT [facility] RBC 5.05 4.36 - 5.78 M/cmm 03/19/2020 2:04 EDT [facility] Hemoglobin 14.4 13.8 - 17.3 gm/dL 03/19/2020 2:04 EDT [facility] HCT 41.5 39.5 - 50.2 % 03/19/2020 2:04 EDT [facility] MCV 82 81 - 95 fl 03/19/2020 2:04 EDT [facility] MCH 28.5 27.6 - 33.0 pg 03/19/2020 2:04 EDT [facility] MCHC 34.7 32.8 - 36.4 gm/dL 03/19/2020 2:04 [facility] RDW-CV 13.7 <14.2 % 03/19/2020 2:04 EDT [facility] RDW-SD 40.5 <46.0 fl 03/19/2020 2:04 EDT [facility] PLT 234 141 - 377 K/cmm 03/19/2020 2:04 EDT [facility] MPV 10.0 9.5 - 12.7 fl 03/19/2020 2:04 T [facility] Blood VENOUS BLOOD / Unknown Venipuncture / Unknown 03/19/2020 1:51 EDT 03/19/2020 1:55 EDT Joesph Wesley MD HEMATOLOGY & PF4 ORD ERABLES Performing Organization Address City/[facility]/ZIP Co de Phone Number [facility] [address] [place] [address] * HEPARIN LEVEL - UNFRACTIONATED HEPARIN (03/19/2020 1:51 EDT) Heparin Level-UFH 0.24 Therapeutic Range: 0.30 - 0.70 IU/mL 03/19/2020 2:16 EDT [facility] Blood VENOUS BLOOD / Unknown Venipuncture / Unknown 03/19/2020 1:51 EDT 03/19/2020 1:55 EDT Narrative [facility] - 03/19/2020 2:16 EDT Sample retested, result confirmed Ash Cruz MD HEMATOLOGY & PF4 OR DERABLES [facility] [address] [place] [address] * EKG 12-LEAD (03/19/2020 0:10 EDT) 03/19/2020 0:10 EDT Narrative [facility] EKG - 04/17/2020 8:44 EDT ? [facility] ? Test Date: ?2020-03-19 Pat Name: ? CLAUDIA BATISTA ? Department: ?? [place] [facility] ? Room: ? [id number] Gender: ? Male ? Engine Pilot: ?? [id number] : ?1955 ? Requested By: JULIAN Acuna Order Number: [id number] ? Messi HAYES: ?? ANETA HAN MD ? Measurements Intervals ?[place] ? Rate: ? 72 ? P: ?50 NV: ? 214 ?QRS: ?69 QRSD: ? 125 [...] Note Aneta Han MD - 04/17/2020 [facility] Test Date: 2020-03-19 Pat Name: CLAUDIA BATISTA Department: [place] [address] Room: [facility] Gender: Male Engine Pilot: [id number] : 1955 Requested By: JULIAN Acuna Order Number: [id number] Messi MD: ANETA HAN MD Measurements Intervals [place] Rate: 72 P: 50 NV: 214 QRS: 69 QRSD: 125 T: 6 [...] Ash Cruz MD CARDIAC ECG ORDERAB LES [facility] EKG * POCT GLUCOSE, INTERFACED (03/18/2020 23:20 EDT) [facility] Signature Glucose, POC 98 70 - 100 mg/dL 03/18/2020 23:21 EDT [facility] accreditation coordinator ID [id number] 03/18/2020 23:21 EDT [facility] HN LAB POC COMMENT (GLUCOSE) Test Performed by Nursing Services 03/18/2020 23:21 EDT [facility] Blood CAPILLARY BLOOD / Unknown 03/18/2020 23:20 EDT 03/18/2020 23:21 EDT Ash Cruz MD POINT OF CARE TEST ORDERABLES [facility] [address] [place] [address] documented in this encounter Visit Diagnoses Diagnosis NSTEMI (non-ST elevated myocardial infarction) (HCC-CMS)- Primary Acute myocardial infarction, subendocardial infarction, episode of care unspecified Essential hypertension Unspecified essential hypertension NSTEMI (non-ST elevated myocardial infarction) (HCC-CMS) Acute myocardial infarction, subendocardial infarction, episode of care unspecified Type 2 diabetes mellitus with vascular disease ([facility]-CMS) Type II or unspecified type diabetes mellitus with peripheral circulatory disorders, not stated as uncontrolled NSVT (nonsustained ventricular tachycardia) (HCC-CMS) Paroxysmal ventricular tachycardia Atherosclerosis of coronary artery without angina pectoris, unspecified vessel or lesion type, unspecified whether [place] or transplanted heart Other specified disorders of arteries and arterioles (HCC-CMS) Other specified disorders of arteries and arterioles Stenosis of coronary stent, initial encounter Old myocardial infarction Hyperlipidemia with target LDL less than 70 Other and unspecified hyperlipidemia Insulin-requiring or dependent type II diabetes mellitus (HCC-CMS) Type II or unspecified type diabetes mellitus without mention of complication, not stated as uncontrolled Family history of ischemic heart disease Ventricular tachycardia (HCC-CMS) Paroxysmal ventricular tachycardia Hypertensive disorder Unspecified essential hypertension Diabetes mellitus (HCC-CMS) Type II or unspecified type diabetes mellitus without mention of complication, not stated as uncontrolled Type 2 diabetes mellitus with vascular disease (HCC-CMS) Type II or unspecified type diabetes mellitus with peripheral circulatory disorders, not stated as uncontrolled NSVT (nonsustained ventricular tachycardia) (HCC-CMS) Paroxysmal ventricular tachycardia Ventricular tachycardia (HCC-CMS) Paroxysmal ventricular tachycardia documented in this encounter [...] 81 mg gadobutroL (GADAVIST PFS) solution solution 1-15 mmol 1-15 mmol (1-15 mL), intravenous, Once in imaging, 1 dose, Starting on Thu03/21/20 at 1443, Until Thu03/21/20 at 1444, Routine, Imaging Protocol Orders Given 03/21/2020 14:44 EDT 20 mmol heparin 1,000 unit/mL injection 2,900 Units 2,900 Units (rounded from 2,926 Units = 35 Units/kg ? 83.6 kg Adjusted weight), intravenous, PRN, Starting on Thu03/19/20 at 0152, Until Thu03/19/20 at 1558, Other, Per Heparin Protocol, Routine Given 03/19/2020 2:59 EDT 2,900 Units heparin in 1/2 NS 25,000 unit/250 mL infusion 1,000 Units/hr (10 mL/hr), intravenous, CONTINUOUS, Starting on Thu03/18/20 at 2345, Until Thu03/19/20 at 0234, Routine New Bag 03/18/2020 23:47 EDT 1,000 Units/hr 10 mL/hr heparin in 1/2 NS 25,000 unit/250 mL infusion 15 Units/kg/hr ? 83.6 kg Adjusted weight (12.54 mL/hr, rounded to 12.5 mL/hr), intravenous, CONTINUOUS, Starting on Thu03/19/20 at 0300, Until Thu03/19/20 at 1558, Routine New Bag 03/19/2020 12:13 EDT 15 Units/kg/hr 12.5 m L/hr Rate Documented 03/19/2020 7:29 EDT 15 Units/kg/hr 12.5 mL /hr Rate Change 03/19/2020 2:53 EDT 15 Units/kg/hr [...] Units isosorbide dinitrate (ISORDIL) tablet 5 mg 5 mg, oral, 3 TIMES DAILY NITRATES, First dose on Thu03/19/20 at 1830, Until Discontinued, Routine Given 03/21/2020 6:04 EDT 5 mg Given 03/20/2020 18:16 EDT 5 mg Given [...] 5 mg LORazepam (ATIVAN) injection 0.5 mg 0.5 mg, intravenous, NOW X1, 1 dose, On Thu03/21/20 at 1330, Routine Given 03/21/2020 13:36 EDT 0.5 mg LORazepam (ATIVAN) tablet 0.5 mg 0.5 [...] at 1508, Until Darlin 03/22/20 at 1822 perflutren lipid microspheres (DEFINITY) 0.165 mg in sodium chloride (PF) 1 mL 0.165 mg, intravenous, Once (Without Time Specified), 1 dose, Starting on Thu03/19/20 at 1359, Until Thu03/19/20 at 1400, Routine Given 03/19/2020 14:00 EDT 2 mL rosuvastatin (CRESTOR) tablet 40 mg 40 mg, [...] 3 mL ticagrelor (BRILINTA) tablet 90 mg 90 mg, oral, 2 TIMES DAILY, First dose on Thu03/19/20 at 0900, Until Discontinued, Routine Given 03/19/2020 8:17 EDT 90 mg traZODone (DESYREL) tablet 50 mg 50 mg, [...] Until Discontinued, Routine 0836 (Given - Provider: Siam Pace RN) 0841 (Given - Provider: Roya [...] Galdamez RN) 0809 (Given - Provider: Roya Hall, RN)1528 [...] (2 %) injection 1 dose, Starting on 03/19/20 at 1508, Until Darlin 03/22/20 at 1822 midazolam (PF) (VERSED) 1 mg/mL injection 1 dose, Starting on 03/19/20 at 1508, Until Darlin 03/22/20 at 1822 nitroglycerin 100 mcg/mL syringe 1 dose, Starting on 03/19/20 at 1508, Until Darlin 03/22/20 at 1822 documented in this encounter Orders Medications Ordered That Eagle ht Not Have Been Administered Count Last Ordered Date First Ordered Date LORazepam (ATIVAN) tablet 0.5 mg 1 03/21/20 20 heparin injection 5,000 Units 1 03/20/2020 dextrose 50 % solution 12.5 g 1 03/19/2020 fentaNYL citrate (PF) 50 mcg/mL injection 1 03/19/2020 fentaNYL citrate (PF) injection 1 0 glucagon injection 1 mg 1 03/19/2020 heparin 1,000 unit/mL injection 1 0 heparin 1,000 unit/mL inject ion 5,900 Units 1 03/19/2020 insulin aspart U-100 (NOVOLO G FLEXPEN) injection 1 03/19/2020 iopamidoL (ISOVUE-370) injection 1 03/19/20 20 lidocaine 20 mg/mL (2 %) injection 1 2019 midazolam (PF) (VERSED) 1 mg/mL injection 1 03/19/2020 midazolam (PF) (VERSED) injection 1 020 nitroglycerin 100 mcg/mL syringe 1 03/19/20 20 sertraline (ZOLOFT) tablet 50 mg 1 03/19/20 20 sodium chloride 0.9 % (NS) infusion 1 03/19 traZODone (DESYREL) tablet 50 mg 1 03/19/20 20 verapamiL (ISOPTIN) 2.5 mg/mL injection [...] Date First Orde red Date CASE REQUEST TRANSFER DRIVER 1 03/19/2020 documented in this encounter Care Teams Filling Separator Relationship Specialty Start Date End Date Denise Hooker APRN [address] [place] [address] PCP - General 09/13/18 documented as of this encounter
--- OUTSIDE RECORDS SUMMARY | 2024-03-04 00:26 | XMS_ITS | Encounter Summary ---
Author Organization [facility] Address [address] [place] [address] Care Team Providers Care Citrix Engineer Name Role Phone Lilia Hookerhrcharu [place]on JENNIFER Primary Care Provider [phone] Reason for Visit * Reason Onset Date Comments Appointment Related 05/03/2020 Returning Call 05/03/2020 Encounter Details Date Type Department Care Team ([facility] Contact Info) Description 05/03/2020 Telephone [facility] - [address] [place] [address] Bebo Guzman MD [address] [facility], Level 1 [place] [address] Appointment Related; Returning Call Social History Tobacco Use Types Packs/Day Years [...] encounter Miscellaneous Notes * Telephone Encounter - Marsha Hu - 05/03/2020 1614 EDT Patient returning call. Patient OK with zoom, so repairer typewriter rescheduled 05/04 to same. * Telephone Encounter - Leigh Ann Gonzales - 05/03/2020 1016 EDT Called patient to see if wanted to change appt tomorrow, 04/24, with Dr. Guzman to a [place] appt. If patient states that they would like to keep as an in office appt, that is fine. documented in this encounter Plan of Treatment Upcoming Encounters Date Type Department Care Team (Late st Contact Info) Description 08/08/2024 13:00 EST Office Visit [facility] - [facility] [address] [place], [place] [address] Kera Tatum PA-C 111 [facility], [facility], [address] [place] [address] documented as of this encounter Visit Diagnoses Not on filedocumented in this encounter Care Teams Citrix Engineer Relationship Specialty Start Date End Date Denise Hooker APRN [address] [place] [address] PCP - General 09/13/18 documented as of this encounter
--- OUTSIDE RECORDS SUMMARY | 2024-03-04 00:26 | XMS_ITS | Encounter Summary ---
Author Organization [facility] Address [address] [place] [address] Care Team Providers Care Slab Installer Name Role Phone Denise Hooker JENNIFER Primary Care Provider [phone] Encounter Details Date Type Department Care Team ([facility] Contact Info) Description 04/17/2020 14:00 EDT Phlebotomy Only [facility] ED Center 2 Phlebotomy [address] [place], [place] [address] Project Intern, Acc Phlebotomy NAFLD (nonalcoholic fatty liver disease) (Primary Dx) [...] EST Office Visit [facility] G[facility]enterology - [address] [id number] Kera Tatum PA-C [address] [place] [address], [address] [place] [address] documented as of this encounter Procedures Procedure Name Priority Date/Time Associated Diagnosis Comments PROTIME Routine 04/17/2020 14:09 EDT NAFLD (nonalcoholic fatty liver disease) COMPLETE BLOOD COUNT Routine 04/17/2020 14:09 EDT NAFLD (nonalcoholic fatty liver disease) COMPREHENSIVE METABOLIC PANEL (CMP) Routine 04/17/2020 14:09 EDT NAFLD (nonalcoholic fatty liver disease) documented in this encounter Results * (ABNORMAL) COMPLETE BLOOD COUNT (04/17/2020 14:09 EDT) WBC 7.85 4.00 - 10.40 K/cmm 04/17/2020 14:34 EDT [facility] RBC 5.14 4.36 - 5.78 M/cmm 04/17/2020 14:34 T [facility] Hemoglobin 14.1 13.8 - 17.3 gm/dL 04/17/2020 14:34 EDT [facility] HCT 43.4 39.5 - 50.2 % 04/17/2020 14:34 T [facility] MCV 84 81 - 95 fl 04/17/2020 14:34 [facility] MCH 27.4(L) 27.6 - 33.0 pg 04/17/2020 14:34 [facility] MCHC 32.5(L) 32.8 - 36.4 gm/dL 04/17/2020 14:34 T [facility] RDW-CV 13.2 <14.2 % 04/17/2020 14:34 T [facility] RDW-SD 41.2 <46.0 fl 04/17/2020 14:34 [facility] PLT 269 141 - 377 K/cmm 04/17/2020 14:34 [facility] MPV 10.1 9.5 - 12.7 fl 04/17/2020 14:34 [facility] Blood VENOUS BLOOD / Unknown Venipuncture / Unknown 04/17/2020 14:09 EDT 04/17/2020 14:26 EDT Letty Mackey MD HEMATOLOGY & PF4 ORD ERABLES [facility] [address] [place] [address] * PROTIME (04/17/2020 14:09 EDT) I.N.R. 1.1 0.9 - 1.1 Ratio 04/17/2020 14:46 T [facility] Pro Time 12.3 10.3 - 13.4 secs 04/17/2020 14:46 [facility] Blood VENOUS BLOOD / Unknown Venipuncture / Unknown 04/17/2020 14:09 EDT 04/17/2020 14:26 EDT Narrative [facility] - 04/17/2020 14:46 EDT Moderate Intensity Coumadin INR = 2.0-3.0 Adjustments in anticoagulant therapy dose should be based on the INR and NOT on the Protime. Letty Mackey MD HEMATOLOGY & PF4 ORD ERABLES [facility] [address] [place] [address] * (ABNORMAL) COMPREHENSIVE METABOLIC PANEL (CMP) (04/17/2020 14:09 EDT) Sodium 141 136 - 145 mEq/L 04/17/2020 15:00 [facility] Potassium 4.3 3.5 - 5.0 mEq/L 04/17/2020 15:00 [facility] Chloride 101 96 - 110 mEq/L 04/17/2020 15:00 [facility] CO2 Total 29 22 - 32 mEq/L 04/17/2020 15:00 [facility] Glucose 148(H) 70 - 100 mg/dL 04/17/2020 15:00 [facility] BUN 17 10 - 26 mg/dL 04/17/2020 15:00 [facility] Creatinine 0.79 0.66 - 1.25 mg/dL 04/17/2020 15:00 [facility] eGFR 94 >60 mL/min/1.7 3m2 04/17/2020 15:00 [facility] Comment:eGFR calculated rut yadav CKD-EPI equation for non- Americans. Multiply eGFR by 1.16 for patients. Total Protein 7.1 6.3 - 8.2 g/dL 04/17/2020 15:00 [facility] Albumin 4.3 3.4 - 4.9 g/dL 04/17/2020 15:00 [facility] Alkaline Phosphatase 73 38 - 126 U/L 04/17/2020 15:00 [facility] AST 38 15 - 46 U/L 04/17/2020 15:00 [facility] ALT 60(H) <50 U/L 04/17/2020 15:00 [facility] Bilirubin, Total 0.5 <1.4 mg/dL 04/17/20 20 15:00 EDT [facility] Calcium 9.8 8.5 - 10.5 mg/dL 04/17/2020 15:00 EDT [facility] Calculated Calcium 9.6 8.5 - 10.5 mg/dL 04/17/2020 15:00 EDT [facility] Blood VENOUS BLOOD / Unknown Venipuncture / Unknown 04/17/2020 14:09 EDT 04/17/2020 14:26 EDT Letty Mackey MD CHEMISTRY & BLOOD GA S ORDERABLES [facility] [address] [place] [address] documented in this encounter Visit Diagnoses Diagnosis NAFLD (nonalcoholic fatty liver disease)- Primary Other chronic nonalcoholic liver disease documented in this encounter Care Teams Slab Installer Relationship Specialty Start Date End Date Denise Hooker APRN [address] [place], [place] [id number] PCP - General 09/13/18 documented as of this encounter
--- OUTSIDE RECORDS SUMMARY | 2024-03-04 00:26 | XMS_ITS | Encounter Summary ---
Author Organization [facility] Address [address] [place] [address] Care Team Providers Care Chemical Process Project Engineer Name Role Phone MorroLilia galvanhrcharu [place] JENNIFER Primary Care Provider [phone] Encounter Details Date Type Department Care Team (Late st Contact Info) Description 08/06/2022 Lab Requisition [facility] Pathology & Laboratory Medicine - [facility] [address] [place] [address] [place] [address] [place] [address], [address] [place], [place] [id number] Encounter for other general examination Social History Tobacco Use Types Packs/Day Years [...] Description 08/08/2024 13:00 EST Office Visit [facility] Gastroenterology - [address] [address] Kera Tatum PA-C [address] [place] [address], [facility], [address] [place] [address] documented as of this encounter Procedures Procedure Name Priority Date/Time Associated Diagnosis Comments SURGICAL PATHOLOGY Today 08/05/2022 10 :40 EST Encounter for other general examination documented in this encounter Results * SURGICAL PATHOLOGY (08/05/2022 10:40 EST) Note to Patient The following pathology results have been interpreted by your pathologist and may be available to you before your health provider has had the opportunity to review them. Please allow time for your provider to receive these results and explore management options, if applicable. 08/08/2022 10:07 [facility] Final Diagnosis A. GALLBLADDER, CHOLECYSTECTOMY: - Chronic cholecystitis. - Cholelithiasis. 08/08/2022 10:07 [facility] Attestation There was significant resident/fellow involvement in the diagnostic evaluation of this case. By the signature below, the attending physician certifies that they have personally conducted a gross and/or microscopic examination of the described specimens and rendered or confirmed the above diagnosis. 08/08/2022 10:07 [facility] at 1007 Clinical History Gallstones 08/08/2022 10:07 [facility] Gross Description A. Received in formalin labelled with proper patient identification (initials M, G) and gallbladder is an intact gallbladder with an attached segment of cystic duct (9.5 x 3.2 x 2.5 cm). A cystic duct lymph node is not present. The serosa is purple-green and surfaced by an abundant amount of adipose tissue. The mucosa is velvety, dark green and the wall is 0.1 cm in thickness. The cystic duct lumen is patent and is 0.6 cm in diameter. The cystic duct margin is inked blue. A black ovoid bosselated cholelith (0.6 cm in greatest dimension) is present. Two passenger service representative sections and the en face cystic duct margin are submitted in A1. LISSA AVILA(ASCP) 08/06/2022 8:35 08/08/2022 10:07 [facility] Resident/Otoniel w: Regis Mccain MD 08/08/2022 10:07 [facility] Performing Lab [facility] 08/08/2022 10:07 [facility] Scanned Images 08/08/2022 10:07 [facility] Tissue ENTIRE GALLBLADDER / Unknown 08/05/2022 10:40 EST 08/06/2022 7:55 EST Zeke Romero MD PATHOLOGY ORDERABLES [facility] [address] [place] [address] documented in this encounter Visit Diagnoses Diagnosis Encounter for other general examination documented in this encounter Care Teams Chemical Process Project Engineer Relationship Specialty Start Date End Date Denise Hooker APRN [address] [place] [address] PCP - General 09/13/18 documented as of this encounter
--- OUTSIDE RECORDS SUMMARY | 2024-03-04 00:26 | XMS_ITS | Encounter Summary ---
Author Organization [facility] Address [address] [place] [address] Care Team Providers Care Rubber Curer Name Role Phone Denise Hooker JENNIFER Primary Care Provider [phone] Reason for Visit * Reason Comments Follow-up Encounter Details Date Type Department Care Team ([facility] Contact Info) Description 04/04/2020 13:00 EDT Telemedicine [facility] Cardiology - [address] [place] [address] Kitty Medina MD [address] [place] [address] [place], [place] [address] Essential hypertension (Primary Dx); NSVT (nonsustained ventricular tachycardia) (HCC-CMS); Atherosclerosis of coronary artery without angina pectoris, unspecified vessel or lesion type, unspecified whether anvik or transplanted heart Social History Tobacco Use Types Packs/Day Years [...] as of this encounter Progress Notes * Sanford Guzman - 04/04/2020 1300 EDT The concept of ???Telemedicine?? has been described to the patient.? Patient has been informed of the anticipated benefits and possible risks.? Patient understands the information provided regardingtelemedicine, has had the opportunity to ask questions about this information, and all questions have been answered to patient???s satisfaction. Patient consents for the use of telemedicine in his/her medical care and authorizes the transmission of any relevant medical information to providers and their staff involved in patient???s medical or mental health care. * Kitty Medina MD - 04/04/2020 1300 EDT [...] possible risks.? Patient understands the information provided regardingtelemedicine, has had the opportunity to ask questions about this information, and all questions have been answered to patient???s satisfaction. Patient consents for the use of telemedicine in his/her medical care and authorizes the transmission of any relevant medical information to providers and their staff involved in patient???s medical or mental health [...] RCA; 2004 stents X2 ??? Diabetes mellitus ([facility]) oral agents ??? Diverticulitis ??? Hyperlipidemia ??? Hypertension ??? [place] (myocardial infarction) ([facility]) 1992, 2003 ??? Recurrent infections rt foot 5th toe Patient Active Problem List Diagnosis Date Noted ??? Type 2 diabetes mellitus with vascular disease ([facility]) 03/19/2020 Priority: Medium ??? NSVT (nonsustained ventricular tachycardia) ([facility]) 03/19/2020 Priority: Medium ??? Chest pain 12/03/2018 Priority: Medium ??? Depression 12/03/2018 Priority: Medium ??? Coronary atherosclerosis 09/07/2009 ??? Hyperlipidemia with target LDL less than 70 09/07/2009 ??? Hypertensive disorder 09/07/2009 ??? Diabetes mellitus ([facility]) 09/07/2009 Family History Problem Relation Age [...] by mouth daily for 30 days. 15 Tab2 ??? lisinopril (PRINIVIL, ZESTRIL) 5 mg tablet [...] Zio patch pending. FU scheduled with Dr. Eaton. I spent a total of 15 minutes with Raul Trujillo today and 15 minutes of that time was spent in counseling and coordination of care as described in the progress note. documented in this encounter Plan of Treatment Upcoming Encounters Date Type Department Care Team (Mabel [facility]night Contact Info) Description 08/08/2024 13:00 EST Office Visit [facility] Gastroenterology - [address] [address] Kera Tatum PA-C 111 [facility], [address] [place] [phone] documented as of this encounter Visit Diagnoses Diagnosis Essential hypertension- Primary Unspecified essential hypertension NSVT (nonsustained ventricular tachycardia) ([facility]) Paroxysmal ventricular tachycardia Atherosclerosis of coronary artery without angina pectoris, unspecified vessel or lesion type, unspecified whether anvik or transplanted heart documented in this encounter Care Teams Rubber Curer Relationship Specialty Start Date End Date Denise Hooker APRN [address] [place] [address] PCP - General 09/13/18 documented as of this encounter
--- OUTSIDE RECORDS SUMMARY | 2024-03-04 00:27 | XMS_ITS | Encounter Summary ---
Author Organization [facility] Address [address] [place] [address] Care Team Providers Care Living Specialist Name Role Phone Gregoria Nicholas MD Primary Care Provider [phone] Reason for Visit * Reason Comments Coronary Artery Disease 1 YR - no cardia c complaints Encounter Details Date Type Department Care Team (Latest Contact Info) Description 09/10/2017 10:30 EST Office Visit [facility] Cardiology - [address] [place], [place] [phone] Broderick Galloway MD [address] [place] [address] Atherosclerosis of chilkoot coronary artery of chilkoot heart without angina pectoris (Primary Dx) Social History Tobacco Use Types Packs/Day Years Used Date Smoking Tobacco: Former Cigarettes 0 04/13/1962 - 04/13/1982 Smokeless Tobacco: Never Alcohol Use Standard Drinks/Week [...] you have serious difficulty h earing? No 02/10/2016 Are you blind or do you have serious difficulty seeing, even when wearing glasses? No 02/10/2016 Do you have serious difficul ty walking or climbing stairs? (5 years old or older) No 02/10/2016 Do you have difficulty dress ing or bathing? (5 years old or older) No 02/10/2016 Because of a physical, menta l, or emotional condition, does this person have difficulty doing errands alone such as visiting a doctor's office or shopping? No 09/10/2017 Cognitive Status Response Date of Assessm ent Because of a physical, menta l, or emotional condition, does this person have serious difficulty concentrating, remembering, or making decisions? Yes 09/10/2017 documented as of this encounter Progress Notes * Broderick Galloway MD - 09/10/2017 1031 EST [...] RCA; 2004 stents X2 ??? Diabetes mellitus ([facility]) oral agents ??? Diverticulitis ??? Hyperlipidemia ??? Hypertension ??? [place] (myocardial infarction) 1992, 2003 ??? Recurrent infections rt foot 5th toe Patient Active Problem List Diagnosis Date Noted ??? NSTEMI (non-ST elevated myocardial infarction) ([facility]) 02/10/2016 Priority: Medium ??? Coronary atherosclerosis 09/07/2009 ??? Hyperlipidemia with target LDL less than 70 09/07/2009 ??? Hypertensive disorder 09/07/2009 ??? Diabetes mellitus ([facility]) 09/07/2009 Current Outpatient Prescriptions Medication Sig Dispense Refill ??? AMITRIPTYLINE HCL (AMITRIPTYLINE ORAL) Take 20 mg by mouth at bedtime. Takes 2-10 mg tablets atbedtime ??? amlodipine (NORVASC) 10 mg tablet Take [...] 30-35 Units into the skin 2 times daily.35 units in the AM and 30 units [...] thyromegaly. Carotid upstroke normal, no carotid bruit andno JVD. Lungs: Clear to auscultation bilaterally. Chest [...] 59 02/11/2016 Assessment: Raul Trujillo is a 61 y.o. year old male who presents with cad stable Plan: D/c plavix documented in this encounter Plan of Treatment Upcoming Encounters Date Type Department Care Team (Late st Contact Info) Description 08/08/2024 13:00 EST Office Visit [facility] Gastroenterology - [address] [address] Kera Tatum PA-C [address] [place] [address], [facility], [address] [place] [address] documented as of this encounter Visit Diagnoses Diagnosis Atherosclerosis of chilkoot coronary artery of chilkoot heart without angina pectoris- Primary documented in this encounter Discontinued Medications Medication Sig Discontinue Reason Start Date End Da te clopidogrel (PLAVIX) 75 mg tablet Take 1 Tab by mouth daily. 02/12/2016 09/10/2017 documented as of this encounter Historical Medications * This list may reflect changes made after this encounter. Medication Sig Dispensed Refills Start Date End Date sertraline (ZOLOFT) 50 mg tablet Take 50 mg by mouth daily. added in this encounter Care Teams Living Specialist Relationship Specialty Start Date End Date Fine, Gregoria, MD [address] [place] [phone] PCP - General 10/27/12 09/12/18 documented as of this encounter
--- OUTSIDE RECORDS SUMMARY | 2024-03-04 00:27 | XMS_ITS | Encounter Summary ---
Author Organization [facility] Address [address] [place] [address] Care Team Providers Care Manager Utilization Review Name Role Phone Denise Hooker JENNIFER Primary Care Provider [phone] Reason for Visit * Reason Onset Date Comments Appointment Related 06/27/2019 Encounter Details Date Type Department Care Team ([facility] Contact Info) Description 06/27/2019 Telephone [facility] Neurophysiology - [facility] [address] [place], [place] [phone] Ken Bran MD [address] [place] [address] [address] [place] [address] Appointment Related Social History Tobacco Use Types [...] encounter Miscellaneous Notes * Telephone Encounter - Darin Floyd - 06/27/2019 1630 EST Called and spoke with patient; scheduled EMG with Dr. Bran 08/25/19 at 11:00. Directions provided. Added to waitlist. documented in this encounter Plan of Treatment Upcoming Encounters Date Type Department Care Team (Late st Contact Info) Description 08/08/2024 13:00 EST Office Visit [facility] Gastroenterology - [address] [address] Kera Tatum PA-C [address] [place] [address], [address] [place] [phone] documented as of this encounter Visit Diagnoses Not on filedocumented in this encounter Care Teams Manager Utilization Review Relationship Specialty Start Date End Date Denise Hooker APRN [address] [place] [address] PCP - General 09/13/18 documented as of this encounter
--- OUTSIDE RECORDS SUMMARY | 2024-03-04 00:27 | XMS_ITS | Encounter Summary ---
Author Organization [facility] Address [address] [place] [address] Care Team Providers Care Landfill Grader Name Role Phone Gregoria Nicholas MD Primary Care Provider [phone] Reason for Visit * Reason Comments Follow-up 6 mo. no complaints Encounter Details Date Type Department Care Team (Latest Contact Info) Description 09/09/2016 10:30 EST Office Visit [facility] Cardiology - [address] [place] [address] Broderick Galloway MD [address] [place] [address] Atherosclerosis of coronary artery of tangirnaq heart without angina pectoris, unspecified vessel or lesion type (Primary Dx) Social History Tobacco Use Types [...] visiting a doctor's office or shopping? No 09/09/2016 Cognitive Status Response Date of Assessm ent Because of a physical, menta l, or emotional condition, does this person have serious difficulty concentrating, remembering, or making decisions? Yes 09/09/2016 documented as of this encounter Progress Notes * Broderick Galloway MD - 09/09/2016 1037 EST [...] Hyperlipidemia ??? Hypertension ??? [place] (myocardial infarction) 1992, 2003 ??? Recurrent infections [...] 08/08/2024 13:00 EST Office Visit [facility] Gastroenterology - [address] [address] Kera Tatum PA-C [address] [facility], [facility], [address] [place] [phone] documented as of this encounter Visit Diagnoses Diagnosis Atherosclerosis of coronary artery of tangirnaq heart without angina pectoris, unspecified vessel or lesion type- Primary documented in this encounter Care Teams Landfill Grader Relationship Specialty Start Date End Date Gregoria Nicholas MD [address] [place] [address] PCP - General 10/27/12 09/12/18 documented as of this encounter
--- OUTSIDE RECORDS SUMMARY | 2024-03-04 00:27 | XMS_ITS | Encounter Summary ---
Author Organization [facility] Address [address] [place] [address] Care Team Providers Care Hazardous Waste Remover Name Role Phone Denise Hooker JENNIFER Primary Care Provider [phone] Reason for Visit * Reason Onset Date Comments Testing 11/30/2018 need help [facility] two tests Encounter Details Date Type Department Care Team ([facility] Contact Info) Description 11/30/2018 Telephone [facility] Cardiology - [address] [place] [address] Broderick Galloway MD [address] [place] [address] Testing (need help scheduling two tests ) Social History Tobacco Use Types Packs/Day Years [...] Yes 09/10/2017 documented as of this encounter Miscellaneous Notes * Telephone Encounter - Amy Roy RN - 12/03/2018 0922 EDT Pt transferred yesterday to [facility] to Cardiology team. * Telephone Encounter - Courtney Moore - 12/02/2018 1023 EDT Spoke with ordering office. They will try to get the pt in sooner at a facility closer to the pt. * Telephone Encounter - Jono Cowart - 11/30/2018 1645 EDT REGIONAL HR MANAGER calling from [facility] office stating they have been trying to get a echo and stress test referral sent over and get authorized and they are having a hard time getting these scheduled. REGIONAL HR MANAGER put me onhold to speak with the referral department and we got disconnected . They need help trying to figure out why this isn't going through and why we haven't received the referral documented in this encounter Plan of Treatment Upcoming Encounters Date Type Department Care Team (Late st Contact Info) Description 08/08/2024 13:00 EST Office Visit [facility] Gastroenterology - [address] [phone] Kera Tatum PA-C [address] [place] [address], [facility], [address] [place] [address] documented as of this encounter Visit Diagnoses Not on filedocumented in this encounter Care Teams Hazardous Waste Remover Relationship Specialty Start Date End Date Denise Hooker APRN [address] [place] [address] PCP - General 09/13/18 documented as of this encounter
--- OUTSIDE RECORDS SUMMARY | 2024-03-04 00:27 | XMS_ITS | Encounter Summary ---
Author Organization [facility] Address [address] [place] [address] Care Team Providers Care Aeronautical Engineering Teacher Name Role Phone Denise Hooker APRN Primary Care Provider [phone] Reason for Referral * Radiology Services (Routine) - Closed Specialty Diagnoses / Procedures Referred By Claire jacques Referred To Contact Diagnoses Fatty liver Procedures US ABDOMEN LIMITED Letty Mackey MD [address] [place] [address] Referral ID Status Reason Start Date Expiration Date Visits Re quested Visits Authorized [id number] Closed 12/06/2019 1 1 Reason for Visit * Reason Comments Follow-up Encounter Details Date Type Department Care Team ([facility] Contact Info) Description 12/06/2019 16:00 EDT Office Visit [facility] Gastroenterology - Main [place] [address] [place], [place] [address] Letty Mackey MD [address] [place] [address] Fatty liver (Primary Dx) Social History Tobacco Use Types [...] No 12/02/2018 documented as of this encounter Patient Instructions * Patient Instructions* Letty Mackey MD - 12/06/2019 16:00 EDT - look into low FODMAP diet - plan for liver ultrasound - keep up the great work with diet, exercise, and weight loss - at some point in the future, will plan for repeat Fibroscan - follow up with me in 5 months documented in this encounter Progress Notes * Letty Mackey MD - 12/06/2019 1600 EDT [facility] Gastroenterology and Hepatology follow up: Referring [...] celiac testing done. Planning to move to [place], but plans on being in [place] for the summer. Planning on retiring this fall. Has lostabout ten pounds since last visit- cut back [...] liver biopsy: no Colonoscopy: 4-5 years ago ([facility]). Noted diverticula. Some polyps removed (patient unsure of histology). He was having some rectal bleeding at the time which prompted the colonoscopy. Past medical history: Past Medical History: Diagnosis Date ??? CAD (coronary artery disease) 09-10-09 PCI LAD prox MARY, LAD mid MARY, LAD distal BMS; 09-07-09 PCI MARY X 3 RCA; 2004 stents X2 ??? Diabetes mellitus ([facility]) oral agents ??? Diverticulitis ??? Hyperlipidemia ??? Hypertension ??? [place] (myocardial infarction) ([facility]) 1992, 2003 ??? Recurrent infections [...] of 18.9 cm. The gallbladder is 1.1 mmin thickness. Multiple small gallstones are identified in [...] follow up with me before going to [place] for winter Letty Mackey MD Gastroenterology and Hepatology [facility] documented in this encounter Plan of Treatment Upcoming Encounters Date Type Department Care Team (Late st Contact Info) Description 08/08/2024 13:00 EST Office Visit [facility] Gastroenterology - [facility] [address] [place], [place] [phone] Kera aTtum PA-C 111 [facility], [facility], [address] [place] [address] documented as of this encounter Results * US ABDOMEN LIMITED (01/26/2020 13:21 EDT) Anatomical Region Laterality Modality Abdomen, Body Ultrasound 01/26/2020 13:4 2 EDT Impressions 01/26/2020 13:42 EDT 1. ??Hepatomegaly and hepatic steatosis with areas of focal fatty sparing adjacent to the gallbladder fossa and falciform ligament. 2. ??Echogenic appearance of the pancreas suggests fatty replacement. 3. ??Right renal cyst. Narrative 01/26/2020 13:42 EDT US ABDOMEN LIMITED ??01/26/2020 1:45 PM SIGNS AND SYMPTOMS/COMMENTS: fatty liver, F3, HCC screening COMPARISON: None relevant TECHNIQUE: Grayscale and Doppler ultrasound evaluation of the right upper quadrant of the abdomen was performed. FINDINGS: PANCREAS: Pancreas appears diffusely echogenic, suggestive of fatty replacement. LIVER: The liver measures 20.5 cm in length, which is enlarged. Hepatic echotexture is diffusely [...] hydronephrosis or nephrolithiasis. GALLBLADDER: The gallbladder wall measures 0.3 mm in thickness, which is normal. No evidence of cholelithiasis. BILE DUCTS: The common duct measures 4 mm in diameter at the mehdi hepatis, which is normal. PROXIMAL ABDOMINAL AORTA / IVC: Grossly normal Procedure Note Arabella Alvarez MD - 01/26/2020 US ABDOMEN LIMITED 01/26/2020 1:45 PM SIGNS AND SYMPTOMS/COMMENTS: fatty liver, F3, HCC screening COMPARISON: None relevant TECHNIQUE: Grayscale and Doppler ultrasound evaluation of the right upperquadrant of the abdomen was performed. FINDINGS: PANCREAS: Pancreas appears diffusely echogenic, suggestive of fattyreplacement. LIVER: The liver measures 20.5 cm in length, which is enlarged. Hepaticechotexture is diffusely increased, consistent with steatosis. There is afocal fatty sparing is seen adjacent to the gallbladder fossa andfalciform ligament. RIGHT KIDNEY: The right kidney measures 12.9 cm in length. A 2.5 x 2 x 2.3cm cyst is seen in the lateral aspect of the right kidney. There is nohydronephrosis or nephrolithiasis. GALLBLADDER: The gallbladder wall measures 0.3 mm in thickness, which isnormal. No evidence of cholelithiasis. BILE DUCTS: The common duct measures 4 mm in diameter at the portahepatis, which is normal. PROXIMAL ABDOMINAL AORTA / IVC: Grossly normal IMPRESSION 1. Hepatomegaly and hepatic steatosis with areas of focal fatty sparingadjacent to the gallbladder fossa and falciform ligament. 2. Echogenic appearance of the pancreas suggests fatty replacement. 3. Right renal cyst. Letty Mackey MD IMG US ORDERABLES documented in this encounter Visit Diagnoses Diagnosis Fatty liver- Primary Other chronic nonalcoholic liver disease Fatty liver Other chronic nonalcoholic liver disease documented in this encounter Care Teams Aeronautical Engineering Teacher Relationship Specialty Start Date End Date Denise Hooker APRN [address] [place] [address] PCP - General 09/13/18 documented as of this encounter
--- OUTSIDE RECORDS SUMMARY | 2024-03-04 00:27 | XMS_ITS | Encounter Summary ---
Author Organization [facility] Address [address] [place] [address] Care Team Providers Care Nursing Educator Name Role Phone Denise Hooker JENNIFER Primary Care Provider [phone] Reason for Visit * Reason Onset Date Comments Diagnostic Imaging Report 06/27/2019 Report from Jason Encounter Details Date Type Department Care Team ([facility] st Contact Info) Description 06/27/2019 Telephone [facility] Neurology - [place] [address] [place] [phone] Ken Bran MD [address] [place] [address] [address] [place] [address] Diagnostic Imaging Report (Report from Jason) Social History Tobacco Use Types Packs/Day Years [...] encounter Miscellaneous Notes * Telephone Encounter - Deep Horner MA - 06/27/2019 0918 EST Jason sent MRI report Spinal lumbar without Contrast. It is in Dr. Bran's mailbox. Called Jason to push images as they are not yet in [facility]. documented in this encounter Plan of Treatment Upcoming Encounters Date Type Department Care Team (Late st Contact Info) Description 08/08/2024 13:00 EST Office Visit [facility] Gastroenterology - [facility] [address] [place], [place] [phone] Kera Tatum PA-C 111 [facility], [address] [place] [address] documented as of this encounter Visit Diagnoses Not on filedocumented in this encounter Care Teams Nursing Educator Relationship Specialty Start Date End Date Denise Hooker APRN [address] [place] [address] PCP - General 2/25/19 documented as of this encounter
--- OUTSIDE RECORDS SUMMARY | 2024-03-04 00:27 | XMS_ITS | Encounter Summary ---
Author Organization [facility] Address [address] [place] [address] Care Team Providers Care Electron Microprobe Operator Name Role Phone MorroDenise galvan JENNIFER Primary Care Provider [phone] Reason for Visit * Reason Onset Date Comments Appointment Related 10/19/2019 Encounter Details Date Type Department Care Team ([facility] st Contact Info) Description 10/19/2019 Telephone [facility] Neurology - [address] [phone] Ken Bran MD [address] [place] [address] [address] [place] [address] Appointment Related Social History Tobacco [...] encounter Miscellaneous Notes * Telephone Encounter - Akua Kyle - 10/19/2019 1606 EDT Pt called in to cancel 02/19 appt with Yina as he is moving out of [facility] to [place]. documented in this encounter Plan of Treatment Upcoming Encounters Date Type Department Care Team (Late st Contact Info) Description 08/08/2024 13:00 EST Office Visit [facility] Gastroenterology - [address] [address] Kera Tatum PA-C [address] [facility], [address] [place] [phone] documented as of this encounter Visit Diagnoses Not on filedocumented in this encounter Care Teams Electron Microprobe Operator Relationship Specialty Start Date End Date Denise Hooker APRN [address] [place] [address] PCP - General 09/13/18 documented as of this encounter
--- OUTSIDE RECORDS SUMMARY | 2024-03-04 00:27 | XMS_ITS | Encounter Summary ---
Author Organization [facility] Address [address] [place] [address] Care Team Providers Care Flavoring Oil Filterer Name Role Phone Denise Hooker JENNIFER Primary Care Provider [phone] Reason for Visit * Reason Onset Date Comments Appointment Related 12/02/2018 Encounter Details Date Type Department [facility] Team ([facility] Contact Info) Description 12/02/2018 Telephone [facility] Cardiology - [address] [place] [address] Broderick Galloway MD [address] [place] [address] Appointment Related Social History Tobacco Use Types [...] encounter Miscellaneous Notes * Telephone Encounter - Courtney Moore - 12/02/2018 1309 EDT Pt's PCP wants pt seen by Dr. Galloway after pt is released from [facility]. PCP ordered a NUC and echo, which they want cancelled. They were told doctor here would order the echo. Spoke to PCP, Kavya Duarte NP. She saw pt on 11/26 for new onset angina. Pt has had 2 episodes, was sent to [facility]. Being transferred to [facility] . documented in this encounter Plan of Treatment Upcoming Encounters Date Type Department Care Team (Late st Contact Info) Description 08/08/2024 13:00 EST Office Visit [facility] Gastroenterology - [address] [address] Kera Tatum PA-C 111 [facility], [address] [place] [phone] documented as of this encounter Visit Diagnoses Not on filedocumented in this encounter Care Teams Flavoring Oil Filterer Relationship Specialty Start Date End Date Denise Hooker APRN [address] [place] [address] PCP - General 09/13/18 documented as of this encounter
--- OUTSIDE RECORDS SUMMARY | 2024-03-04 00:27 | XMS_ITS | Encounter Summary ---
Author Organization [facility] Address [address] [place] [address] Care Team Providers Care Buggy Operator Name Role Phone MorroLilia galvanhrcharu [place] JENNIFER Primary Care Provider [phone] Encounter Details Date Type Department Care Team (Late st Contact Info) Description 11/29/2018 Orders Only [facility] Cardiology - [facility] [address] [place], [place] [address] Kavya Duarte FNP [address] [place] [address] Jaw pain (Primary Dx); CAD in la posta artery Social History Tobacco Use Types Packs/Day Years [...] Yes 09/10/2017 documented as of this encounter Plan of Treatment Upcoming Encounters Date Type Department Care Team (Late st Contact Info) Description 08/08/2024 13:00 EST Office Visit [facility] Gastroenterology - [address] [address] Kera Tatum PA-C [address] [place] [address], [facility], [address] [place] [phone] documented as of this encounter Visit Diagnoses Diagnosis Jaw pain- Primary CAD in la posta artery Coronary atherosclerosis of la posta coronary artery documented in this encounter Care Teams Buggy Operator Relationship Specialty Start Date End Date Denise Hooker APRN [address] [place] [address] PCP - General 09/13/18 documented as of this encounter
--- OUTSIDE RECORDS SUMMARY | 2024-03-04 00:27 | XMS_ITS | Encounter Summary ---
Author Organization [facility] Address [address] [place] [address] Care Team Providers Care Ply Cutter Name Role Phone Denise Hooker APRN Primary Care Provider [phone] Reason for Visit * Office Procedure (Routine) - Closed Specialty Diagnoses / Procedures Referred By Claire jacques Referred To Contact Neurology Diagnoses Fasciculations Polyneuropathy Procedures EMG/NERVE CONDUCTION STUDY Ken Bran MD [address] [place] [phone] [facility] Neuromusc & Clin Neurophys [address] [place] [address] Referral ID Status Reason Start Date Expiration Date Visits Re quested Visits Authorized [id number] Closed 05/19/2019 1 1 Encounter Details Date Type Department Care Team (Latest Contact Info) Description 08/25/2019 9:15 EST - 08/26/2019 23:59 EST Hospital Encounter [facility] Neurophysiology - Main [place] [address] [place], [place] [address] Ken Bran MD [address] [place] [address] Fasciculations; Polyneuropathy Discharge Disposition: Home or Self Care Social [...] No 12/02/2018 documented as of this encounter Medications at [...] tablet Take 1 Tablet by mouth daily. LORazepam (ATIVAN) 2 mg tablet 2mg 30 minutes prior to MRI. 1 Tab 05/19/2019 03/22/2020 documented as of this encounter Discharge Disposition Disposition Code Departure Means Destination Home or Self Care documented in this encounter Progress Notes * Ken Bran MD - 08/25/2019 1125 EST History: This is a 63-year-old gentleman seen in electrodiagnostic consultation to evaluate symptoms of lower extremity fasciculations. He was seen in my clinic for this issue in April 2019. He reports somewhere between 3 and 5 years of symptoms of twitching of muscles in bilateral lower extremities whichprimarily involve his calves but at times have [...] test spent with the patient to discuss resultsand coordinate plan of care. Electrodiagnostic Findings: Nerve [...] waves and normal motor unit activity in the right tibialis anterior medial gastrocnemius and vastus lateralis. In the absence of signs of active denervation and chronic reinnervation this is a more benign finding. This study was not consistent with peripheral neuropathy, right lumbosacral radiculopathy, myopathy, or motor neuron disease atthis time. Clinical Impression: Fasciculations: Patient is continue to experience multiple fasciculations in the absence of concurrent weakness andsensory loss. EMG nerve conduction testing today was reassuring with presence of only electrical fasciculations without signs of active denervation and chronic reinnervation after 3 to 5 years of symptoms. I provided the patient reassurance that this is likely not new accounts banking representative of a progressive degenerative neuromuscular disorder. It is possible that this is new accounts banking representative of benign cramp fasciculation syndrome. It is also possible that this is related to the patient's treatment with SSRI medications. I sent the patient for additional laboratory testing today to look for voltage-gated potassium channel antibodies which might prompt a paraneoplastic work-up in this case. Given that the symptoms are not bothersome I recommend that we observe this [...] call with any questions. Ken Bran MD Drag Car Racer of Neurology Neurology Attending Physician ABPN Board Certified, Neurology and Neuromuscular Medicine ABEM Board Certified, EMG documented in this encounter Plan of Treatment Upcoming Encounters Date Type Department Care Team (Late st Contact Info) Description 08/08/2024 13:00 EST Office Visit [facility] Gastroenterology - [address] [address] Kera Tatum PA-C [address] [place] [address], [address] [place] [address] Scheduled Orders Name Type Priority Associated Diagnoses Orde r Schedule EMG/NERVE CONDUCTION STUDY Procedures Routine Fasciculations Polyneuropathy Ordered: 05/19/2019 documented as of this encounter Visit Diagnoses Diagnosis Fasciculations Abnormal involuntary movements Polyneuropathy Unspecified hereditary and idiopathic peripheral neuropathy documented in this encounter Care Teams Ply Cutter Relationship Specialty Start Date End Date Denise Hooker APRN [address] [place] [address] PCP - General 09/13/18 documented as of this encounter
--- OUTSIDE RECORDS SUMMARY | 2024-03-04 00:27 | XMS_ITS | Encounter Summary ---
Author Organization [facility] Address [address] [place] [address] Care Team Providers Care Charge Out Clerk Name Role Phone Gregoria Nicholas MD Primary Care Provider [phone] Encounter Details Date Type Department Care Team (Late st Contact Info) Description 03/27/2017 Results Only [facility] [phone] Bari Funez, DO [address] [place] [address] Social History Tobacco Use Types Packs/Day Years [...] No 09/09/2016 Cognitive Status Response Date of Assess ent Because of a physical, menta l, or emotional condition, does this person have serious difficulty concentrating, remembering, or making decisions? Yes 09/09/2016 documented as of this encounter Plan of Treatment Upcoming Encounters Date Type Department Care Team (Late st Contact Info) Description 08/08/2024 13:00 EST Office Visit [facility] Gastroenterology - [address] [id number] Kera Tatum PA-C [address] [facility], [address] [place] [address] documented as of this encounter Procedures Procedure Name Priority Date/Time Associated Diagnosis Comments SURGICAL PATHOLOGY Routine 03/27/2017 19 :34 EDT documented in this encounter Results * SURGICAL PATHOLOGY (03/27/2017 19:34 EDT) Pathology Report: SURGICAL PATHOLOGY REPORT Reports generated via electronic interface contain original data; however they are lacking the format of the original report. Caution should be taken when reading/interpret ing unformatted reports. Name: ? CLAUDIA BATISTA ? Accession #: ? [id number] ? : ? 1955 (Age: 61) ??M ? Collect Date: ? 03/27/2017 ? Location: ? [facility] ? Receive Date: ? 03/27/2017 ? Provider: BARI FUNEZ DO Copy to: GREGORIA NICHOLAS MD ? Final Pathologic Diagnosis: A. COLON, ASCENDING POLYP, BIOPSY: - ??Tubular adenoma. ? B. COLON, TRANSVERSE POLYP, BIOPSY: - ??Tubular adenoma. C. COLON, DESCENDING POLYP, BIOPSY: - ??Tubular adenoma. Document reviewed and electronically signed by: LEONARDO WALSH MD Report ??Date: 03/30/2017 14:44 By the signature above, the attending physician certifies that he/she has personally conducted a gross and/or microscopic examination of the described specimens and rendered or confirmed the above diagnosis. Specimen(s) Received: A. ??Ascending colon polyp B. ??Transverse colon polyp C. ??Descending colon polyp Clinical History: Colorectal cancer scr; clinical diagnosis alejandro: Z12.11 Gross Description: A. ?Received in formalin labelled with proper patient identification (initials M, G) and ascending colon polyp is a single pink-rock tissue fragment (0.4 x 0.3 x 0.3 cm). Submitted intact in A1. B. ?Received in formalin labelled with proper patient identification (initials M, G) and transverse colon polyp are two pink-rock tissues (0.3 x 0.3 x 0.2 cm and 0.2 x 0.2 x 0.2 cm). Entirely submitted in B1. C. ?Received in formalin labelled with proper patient identification (initials M, G) and descending colon polyp is a single pink-rock tissue fragment (0.5 x 0.3 x 0.3 cm). Submitted intact in C1. Dr. Cope 03/28/2017 11:16 AM End of Report [facility] 03/27/2017 19:3 4 EDT 03/27/2017 19:34 EDT Bari Funez DO PATHOLOGY ORDERABLES [facility] [address] [place] [address] documented in this encounter Visit Diagnoses Not on filedocumented in this encounter Care Teams Charge Out Clerk Relationship Specialty Start Date End Date Gregoria Nicholas MD [address] [place] [address] PCP - General 10/27/12 09/12/18 documented as of this encounter
--- OUTSIDE RECORDS SUMMARY | 2024-03-04 00:27 | XMS_ITS | Encounter Summary ---
Author Organization [facility] Address [address] [place] [address] Care Team Providers Care Fabrication Engineer Name Role Phone Gregoria Nicholas MD Primary Care Provider [phone] Encounter Details Date Type Department Care Team (Late st Contact Info) Description 08/11/2016 Phlebotomy Only [facility] - [address] [address] Document Clerk, Outpatient Social History Tobacco Use Types Packs/Day Years [...] visiting a doctor's office or shopping? No 03/11/2016 Cognitive Status Response Date of Assessm ent Because of a physical, menta l, or emotional condition, does this person have serious difficulty concentrating, remembering, or making decisions? Yes 03/11/2016 documented as of this encounter Plan of Treatment Upcoming Encounters Date Type Department Care Team (Late st Contact Info) Description 08/08/2024 13:00 EST Office Visit [facility] Gastroenterology - [address] [phone] Kera Tatum PA-C [address] [place] [address], [address] [place] [phone] documented as of this encounter Visit Diagnoses Not on filedocumented in this encounter Care Teams Fabrication Engineer Relationship Specialty Start Date End Date Gregoria Nicholas MD [address] [place] [address] PCP - General 10/27/12 09/12/18 documented as of this encounter
--- OUTSIDE RECORDS SUMMARY | 2024-03-04 00:27 | XMS_ITS | Encounter Summary ---
Author Organization [facility] Address [address] [place] [address] Care Team Providers Care Material Handler Loader Name Role Phone Denise Hooker APRN Primary Care Provider [phone] Reason for Referral * Radiology Services (Routine) - Closed Specialty Diagnoses / Procedures Referred By Claire jacques Referred To Contact Diagnoses Fatty liver Procedures US ABDOMEN LIMITED Letty Mackey MD [address] [place] [phone] Referral ID Status Reason Start Date Expiration Date Visits Re quested Visits Authorized [id number] Closed 12/06/2019 1 1 Reason for Visit * Radiology Services (Routine) - Closed Specialty Diagnoses / Procedures Referred By Claire jacques Referred To Contact Diagnoses Fatty liver Procedures US ABDOMEN LIMITED Letty Mackey MD [address] [place] [phone] Referral ID Status Reason Start Date Expiration Date Visits Re quested Visits Authorized [id number] Closed 12/06/2019 1 1 Encounter Details Date Type Department Care Team (Latest Contact Info) Description 01/26/2020 12:36 EDT - 01/26/2020 23:59 EDT Hospital Encounter Medical [facility] Radiology - [facility] [address] [place], [place] [address] Fatty liver Discharge Disposition: Home or Self Care Social [...] 08/08/2024 13:00 EST Office Visit [facility] Gastroenterology - [address] [phone] Kera Tatum PA-C [address] [place] [address], [address] [place] [phone] documented as of this encounter Procedures Procedure Name Priority Date/Time Associated Diagnosis Comments US ABDOMEN LIMITED Routine 01/26/2020 13 :21 EDT Fatty liver documented in this encounter Results * US ABDOMEN LIMITED [...] disease documented in this encounter Care Teams Material Handler Loader Relationship Specialty Start Date End Date Denise Hooker APRN [address] [place] [address] PCP - General 09/13/18 documented as of this encounter
--- OUTSIDE RECORDS SUMMARY | 2024-03-04 00:27 | XMS_ITS | Encounter Summary ---
Author Organization [facility] Address [address] [place] [address] Care Team Providers Care Beauty School Instructor Name Role Phone MorroLiliaDenise H JENNIFER Primary Care Provider [phone] Reason for Visit * Reason Onset Date Comments New Patient Visit 04/06/2019 Encounter Details Date Type Department Care Team ([facility] st Contact Info) Description 04/06/2019 Telephone [facility] Neurology - [address] [address] Unknown, Provider, New Patient Visit Social History Tobacco Use Types Packs/Day [...] * Telephone Encounter - Akua Kyle - 04/07/2019 1133 EDT Patient called back and scheduled NPV with Yina at 05/19 at 1pm Sent letter and assigned referral * Telephone Encounter - Vashti Chau - 04/06/2019 1023 EDT LMOM to schedule NPV with Maggi Mcihel or Rosy documented in this encounter Plan of Treatment Upcoming Encounters Date Type Department Care Team (Late st Contact Info) Description 08/08/2024 13:00 EST Office Visit [facility] Gastroenterology - [address] [address] Kera Tatum PA-C [address] [facility], [address] [place] [phone] documented as of this encounter Visit Diagnoses Not on filedocumented in this encounter Care Teams Beauty School Instructor Relationship Specialty Start Date End Date Denise Hooker APRN [address] [place], [place] [address] PCP - General 09/13/18 documented as of this encounter
--- OUTSIDE RECORDS SUMMARY | 2024-03-04 00:27 | XMS_ITS | Encounter Summary ---
Author Organization [facility] Address [address] [place] [address] Care Team Providers Care Board Stacker Name Role Phone Denise Hooker JENNIFER Primary Care Provider [phone] Encounter Details Date Type Department Care Team ([facility] st Contact Info) Description 08/25/2019 10:30 EST Phlebotomy Only [facility] 2 Phlebotomy [address] [place], [place] [address] User Interface Engineer, Acc Phlebotomy Weakness; Fasciculation Social History Tobacco Use Types Packs/Day Years [...] No 12/02/2018 Cognitive Status Response Date of Assess ent Because of a physical, menta l, or emotional condition, do you have serious difficulty concentrating, remembering, or making decisions? (5 years old or older) No 12/02/2018 documented as of this encounter Plan of Treatment Upcoming Encounters Date Type Department Care Team (Late st Contact Info) Description 08/08/2024 13:00 EST Office Visit [facility] Gastroenterology - [facility] [address] [place] [address] Kera Tatum PA-C [address] [facility], [address] [place] [address] documented as of this encounter Procedures Procedure Name Priority Date/Time Associated Diagnosis Comments PARANEOPL AUTO ANTIBODY, SERUM Routine 08/25/2019 10:32 EST Weakness Fasciculation T4 FREE Routine 08/25/2019 10:32 EST Weakness Fasciculation CK Routine 08/25/2019 10:32 EST Weakness Fasciculation documented in this encounter Results * T4 FREE (08/25/2019 10:32 EST) T4, Free 1.2 0.8 - 2.2 ng/dL 08/25/2019 12:20 EST [facility] Blood VENOUS BLOOD / Unknown Venipuncture / Unknown 08/25/2019 10:32 EST 08/25/2019 11:30 EST Ken Bran MD CHEMISTRY & BLOOD GAS ORDERABLES [facility] [address] [place] [address] * CK (08/25/2019 10:32 EST) CK 107 <=250 U/L 08/25/2019 12:01 EST [facility] Blood VENOUS BLOOD / Unknown Venipuncture / Unknown 08/25/2019 10:32 EST 08/25/2019 11:30 EST Ken Bran MD CHEMISTRY & BLOOD GAS ORDERABLES [facility] [address] [place] [address] * PARANEOPL AUTO ANTIBODY, SERUM (08/25/2019 10:32 EST) Interpretive Comments SEE NOTE 09/12/2019 17:[address] [facility] Comment: No informative autoantibodies were detected in the Paraneoplastic Evaluation. However, a negative result does not exclude neurological autoimmunity with or without associated neoplasia. Sensitivity and specificity of antibody testing are enhanced by testing both serum and CSF. LEISA-1, S Negative <1:240 titer 09/12/2019 17:[address] [facility] Reflex Added None. 09/12/2019 17:[address] [facility] Comment: ADDITIONAL INFORMATION This test was developed and its performance characteristics determined by [facility] in a manner consistent with CLIA requirements. This test has not been cleared or approved by the U.S. Food and Drug Administration. LEISA-2, S Negative <1:240 titer 09/12/2019 17:[address] [facility] Comment: ADDITIONAL INFORMATION This test was developed and its performance characteristics determined by [facility] in a manner consistent with CLIA requirements. This test has not been cleared or approved by the U.S. Food and Drug Administration. LEISA-3, S Negative <1:240 titer 09/12/2019 17:05 [facility] [employer] Comment: ADDITIONAL INFORMATION This test was developed and its performance characteristics determined by [facility] in a manner consistent with CLIA requirements. This test has not been cleared or approved by the U.S. Food and Drug Administration. AGNA-1, S Negative <1:240 titer 09/12/2019 17:[address] [facility] Comment: ADDITIONAL INFORMATION This test was developed and its performance characteristics determined by [facility] in a manner consistent with CLIA requirements. This test has not been cleared or approved by the U.S. Food and Drug Administration. COUNTY HISTORIAN-1, S Negative <1:240 titer 09/12/2019 17:[address] [facility] Comment: ADDITIONAL INFORMATION This test was developed and its performance characteristics determined by [facility] in a manner consistent with CLIA requirements. This test has not been cleared or approved by the U.S. Food and Drug Administration. COUNTY HISTORIAN-2, S Negative <1:240 titer 09/12/2019 17: [facility] Comment: ADDITIONAL INFORMATION This test was developed and its performance characteristics determined by [facility] in a manner consistent with CLIA requirements. This test has not been cleared or approved by the U.S. Food and Drug Administration. COUNTY HISTORIAN-Tr, S Negative <1:240 titer 09/12/2019 17:[address] [facility] Comment: ADDITIONAL INFORMATION This test was developed and its performance characteristics determined by [facility] in a manner consistent with CLIA requirements. This test has not been cleared or approved by the U.S. Food and Drug Administration. Amphiphysin Ab, S Negative <1:240 titer 09/12/2019 17:[address] [facility] Comment: ADDITIONAL INFORMATION This test was developed and its performance characteristics determined by [facility] in a manner consistent with CLIA requirements. This test has not been cleared or approved by the U.S. Food and Drug Administration. CRMP-5-IgG, S Negative <1:240 titer 09/12/2019 17:05 [facility] [employer] Comment: ADDITIONAL INFORMATION This test was developed and its performance characteristics determined by [facility] in a manner consistent with CLIA requirements. This test has not been cleared or approved by the U.S. Food and Drug Administration. Striational (Striated Muscle) Ab, S Negative <1:120 titer 09/12/2019 17:05 [facility] [employer] Comment: ADDITIONAL INFORMATION This test was developed and its performance characteristics determined by [facility] in a manner consistent with CLIA requirements. This test has not been cleared or approved by the U.S. Food and Drug Administration. Test Performed by: [facility] [place] [address] Levee Superintendent: Chon Carrera M.D. Ph.D.; CLIA# [id number] P/Q-Type Calcium Channel Ab 0.00 <=0.02 nmol/L 09/12/2019 17:05 [facility] [employer] Comment: ADDITIONAL INFORMATION This test was developed and its performance characteristics determined by [facility] in a manner consistent with CLIA requirements. This test has not been cleared or approved by the U.S. Food and Drug Administration. N-Type Calcium Channel Ab 0.00 <=0.03 nmol/L 09/12/2019 17:05 [facility] [employer] Comment: ADDITIONAL INFORMATION This test was developed and its performance characteristics determined by [facility] in a manner consistent with CLIA requirements. This test has not been cleared or approved by the U.S. Food and Drug Administration. AChR Ganglionic Neuronal Ab, S 0.00 <=0.02 nmol/L 09/12/2019 17:05 EST [facility] [employer] Comment: ADDITIONAL INFORMATION This test was developed and its performance characteristics determined by [facility] in a manner consistent with CLIA requirements. This test has not been cleared or approved by the U.S. Food and Drug Administration. Neuronal (V-G) K+ Channel Ab, S 0.00 <=0.02 nmol/L 09/12/2019 17:05 EST [facility] [employer] Comment: ADDITIONAL INFORMATION This test was developed and its performance characteristics determined by [facility] in a manner consistent with CLIA requirements. This test has not been cleared or approved by the U.S. Food and Drug Administration. Blood VENOUS BLOOD / Unknown Venipuncture / Unknown 08/25/2019 10:32 EST 08/25/2019 11:30 EST Ken Bran MD IMMUNOLOGY AND SE CONTRERAS ORDERABLES [facility] [address] [place] [address] documented in this encounter Visit Diagnoses Diagnosis Weakness Other malaise and fatigue Fasciculation Abnormal involuntary movements documented in this encounter Care Teams Board Stacker Relationship Specialty Start Date End Date Denise Hooker APRN [address] [place] [address] PCP - General 09/13/18 documented as of this encounter
--- OUTSIDE RECORDS SUMMARY | 2024-03-04 00:27 | XMS_ITS | Encounter Summary ---
Author Organization [facility] Address [address] [place] [address] Care Team Providers Care Cuff Cutter Name Role Phone Denise Hooker JENNIFER Primary Care Provider [phone] Encounter Details Date Type Department Care Team ([facility] st Contact Info) Description 07/26/2019 16:00 EST Phlebotomy Only [facility] 2 Phlebotomy [address], [place] [id number] Congressional Representative, Acc Phlebotomy Diarrhea, unspecified type; NAFLD (nonalcoholic fatty liver disease); Elevated LFTs Social History Tobacco Use Types Packs/Day Years [...] Info) Description 08/08/2024 13:00 EST Office Visit [facility] Gastroenterology - [address] [address] Kera Tatum PA-C [address] [place] [address], [facility], [address] [place] [address] documented as of this encounter Procedures Procedure Name Priority Date/Time Associated Diagnosis Comments HEPATITIS A TOTAL ANTIBODY W REFLEX Routine 07/26/2019 16:17 EST Elevated LFTs TISSUE TRANSGLUTAMINASE ANTIBODY, IGA Routine 07/26/2019 16:17 EST Diarrhea, unspecified type IGA Routine 07/26/2019 16:17 EST Diarrhea, unspecified type HEPATITIS B SURFACE ANTIBODY Routine 07/26/2019 16:17 EST Elevated LFTs COMPLETE BLOOD COUNT AND DIFFERENTIAL Routine 07/26/2019 16:17 EST NAFLD (nonalcoholic fatty liver disease) COMPREHENSIVE METABOLIC PANEL (CMP) Routine 07/26/2019 16:17 EST NAFLD (nonalcoholic fatty liver disease) documented in this encounter Results * HEPATITIS A TOTAL ANTIBODY W REFLEX (07/26/2019 16:17 EST) Hepatitis A Antibody, Total Negative Negative 07/27/2019 14:54 EST [facility] Blood VENOUS BLOOD / Unknown Venipuncture / Unknown 07/26/2019 16:17 EST 07/26/2019 16:45 EST Narrative [facility] - 07/27/2019 14:54 EST The result of this assay can be falsely elevated (Positive) due to the consumption of Biotin. Letty Mackey MD CHEMISTRY & BLOOD GA S ORDERABLES Performing Organization Address City/[facility]/ZIP Co de Phone Number [facility] [address] [place] [address] * HEPATITIS B SURFACE ANTIBODY (07/26/2019 16:17 EST) Hep B Surface Ab, Quantitative 203.5 See Note mIU/mL 07/27/2019 14:54 EST [facility] Comment: Reference Range for Hep B Surface Ab, Quant: Positive: >= 10.0 mIU/mL Negative: ??< 10.0 mIU/mL Patient is presumed to be immune to infection with Hepatitis B Virus. Hep B Surface Ab, Qualitative Positive See Note 07/27/2019 14:54 EST [facility] Comment: Reference Range for Hep B Surface Ab, Qual: Unvaccinated: ??Negative Vaccinated: ??Positive Blood VENOUS BLOOD / Unknown Venipuncture / Unknown 07/26/2019 16:17 EST 07/26/2019 16:45 EST Letty Mackey MD CHEMISTRY & BLOOD GA S ORDERABLES Performing Organization Address City/[facility]/ZIP Co de Phone Number [facility] [address] [place] [address] * COMPLETE BLOOD COUNT AND DIFFERENTIAL (07/26/2019 16:17 EST) WBC 8.89 4.00 - 10.40 K/cmm 07/26/2019 17:00 EST [facility] RBC 5.12 4.36 - 5.78 M/cmm 07/26/2019 17:00 [facility] Hemoglobin 14.3 13.8 - 17.3 gm/dL 07/26/2019 17:00 [facility] HCT 43.3 39.5 - 50.2 % 07/26/2019 17:00 [facility] MCV 85 81 - 95 fl 07/26/2019 17:00 [facility] MCH 27.9 27.6 - 33.0 pg 07/26/2019 17:00 [facility] MCHC 33.0 32.8 - 36.4 gm/dL 07/26/2019 17:00 [facility] RDW-CV 13.3 <14.2 % 07/26/2019 17:00 [facility] RDW-SD 41.3 <46.0 fl 07/26/2019 17:00 [facility] PLT 289 141 - 377 K/cmm 07/26/2019 17:00 [facility] MPV 10.1 9.5 - 12.7 fl 07/26/2019 17:00 [facility] % Neutrophils 53.6 % 07/26/2019 17:00 [facility] % Lymphocytes 35.3 % 07/26/2019 17:00 [facility] % Monocytes 8.5 % 07/26/2019 17:00 [facility] % Eosinophils 1.7 % 07/26/2019 17:00 [facility] % Basophils 0.7 % 07/26/2019 17:00 [facility] % Immature Grans 0.2 % 07/26/19 20 17:00 [facility] Absolute Neutrophils 4.76 2.20 - 8.85 K/cmm 07/26/2019 17:00 [facility] Absolute Lymphocytes 3.14 1.09 - 3.30 K/cmm 07/26/2019 17:00 [facility] Absolute Monocytes 0.76 0.10 - 0.80 K/cmm 07/26/2019 17:00 [facility] Absolute Eosinophils 0.15 0.03 - 0.61 K/cmm 07/26/2019 17:00 [facility] ABS Basophils 0.06 0.01 - 0.11 K/cmm 07/26/2019 17:00 [facility] Absolute Immature Grans 0.02 0.00 - 0.06 K/cmm 07/26/2019 17:00 [facility] Type of Differential: Auto 07/26/2019 17:00 [facility] Blood VENOUS BLOOD / Unknown Venipuncture / Unknown 07/26/2019 16:17 EST 07/26/2019 16:45 EST Letty Mackey MD PACKAGES & DNA PROBE ORDERABLES [facility] [address] [place] [address] * (ABNORMAL) COMPREHENSIVE METABOLIC PANEL (CMP) (07/26/2019 16:17 EST) Sodium 139 136 - 145 mEq/L 07/26/2019 17:31 [facility] Potassium 4.8 3.5 - 5.0 mEq/L 07/26/2019 17:31 [facility] Chloride 99 96 - 110 mEq/L 07/26/2019 17:31 [facility] CO2 Total 29 22 - 32 mEq/L 07/26/2019 17:31 [facility] Glucose 135(H) 70 - 100 mg/dL 07/26/2019 17:31 [facility] BUN 17 10 - 26 mg/dL 07/26/2019 17:31 [facility] Creatinine 1.04 0.66 - 1.25 mg/dL 07/26/2019 17:31 [facility] eGFR 76 >60 mL/min/1.7 3m2 07/26/2019 17:31 [facility] Comment:eGFR calculated rut yadav CKD-EPI equation for non- Americans. Multiply eGFR by 1.16 for patients. Total Protein 7.4 6.3 - 8.2 g/dL 07/26/2019 17:31 [facility] Albumin 4.6 3.4 - 4.9 g/dL 07/26/2019 17:31 [facility] Alkaline Phosphatase 82 38 - 126 U/L 07/26/2019 17:31 [facility] AST 40 15 - 46 U/L 07/26/2019 17:31 [facility] ALT 55(H) <50 U/L 07/26/2019 17:31 [facility] Bilirubin, Total <0.5 <1.4 mg/dL 01/07/20 20 17:31 [facility] Calcium 9.7 8.5 - 10.5 mg/dL 07/26/2019 17:31 [facility] Calculated Calcium 9.2 8.5 - 10.5 mg/dL 07/26/2019 17:31 [facility] Blood VENOUS BLOOD / Unknown Venipuncture / Unknown 07/26/2019 16:17 EST 07/26/2019 16:45 EST Letty Mackey MD CHEMISTRY & BLOOD GA S ORDERABLES Performing Organization Address [facility] Co de Phone Number [facility] [address] [place] [address] * IGA (07/26/2019 16:17 EST) [facility] IgA 321 85 - 499 mg/dL 07/27/2019 10:20 [facility] Blood VENOUS BLOOD / Unknown Venipuncture / Unknown 07/26/2019 16:17 EST 07/26/2019 16:45 EST Letty Mackey MD CHEMISTRY & BLOOD GA S ORDERABLES Performing Organization Address [facility] de Phone Number [facility] [address] [place] [address] * TISSUE TRANSGLUTAMINASE AB (07/26/2019 16:17 EST) [facility] Tissue Transglutaminase Antibody IGA <1.2 <4.0 U/mL 07/27/2019 11:54 [facility] Comment: A negative result may be due to IgA deficiency and does not rule out celiac disease. ? Negative: ??<4.0 U/mL ? Weak Positive: ??4.0 - 10.0 U/mL ? Positive: ??>10.0 U/mL Results were obtained with the [employer] QUANT[employer] Lite R h-tTG IgA JAVED assay on the [employer] DSX. Blood VENOUS BLOOD / Unknown Venipuncture / Unknown 07/26/2019 16:17 EST 07/26/2019 16:45 EST Letty Mackey MD IMMUNOLOGY AND SALEEM VICENTE ORDERABLES [facility] [address] [place] [address] documented in this encounter Visit Diagnoses Diagnosis Diarrhea, unspecified type NAFLD (nonalcoholic fatty liver disease) Other chronic nonalcoholic liver disease Elevated LFTs Other abnormal blood chemistry documented in this encounter Care Teams Cuff Cutter Relationship Specialty Start Date End Date Denise Hooker APRN [address] [place] [address] PCP - General 09/13/18 documented as of this encounter
--- OUTSIDE RECORDS SUMMARY | 2024-03-04 00:27 | XMS_ITS | Encounter Summary ---
Author Organization [facility] Address [address] [place] [address] Care Team Providers Care Multimedia Producer Name Role Phone Denise Hooker JENNIFER Primary Care Provider [phone] Reason for Visit * Reason Onset Date Comments Appointment Related 08/26/2019 Encounter Details Date Type Department Care Team ([facility] st Contact Info) Description 08/26/2019 Telephone [facility] Neurology - [address] [id number] Ken Bran MD [address] [place] [address] [address] [place] [address] Appointment Related Social History Tobacco [...] encounter Miscellaneous Notes * Telephone Encounter - Vashti Chau - 08/26/2019 1534 EST Scheduled 6 month follow up with Dr. Bran for 02/20/20 at 2:30 PM Sent confirmation letter * Telephone Encounter - Vashti Chau - 08/26/2019 1533 EST ----- Message from Ken Bran MD sent at 08/25/2019 11:33 EST ----- Regarding: Follow Please schedule follow in 6 months. Thanks documented in this encounter Plan of Treatment Upcoming Encounters Date Type Department Care Team (Late st Contact Info) Description 08/08/2024 13:00 EST Office Visit [facility] Gastroenterology - [address] [phone] Kera Tatum PA-C [address] [facility], [address] [place] [phone] documented as of this encounter Visit Diagnoses Not on filedocumented in this encounter Care Teams Multimedia Producer Relationship Specialty Start Date End Date Denise Hooker APRN [address] [place] [address] PCP - General 09/13/18 documented as of this encounter
--- OUTSIDE RECORDS SUMMARY | 2024-03-04 00:27 | XMS_ITS | Encounter Summary ---
Author Organization [facility] Address [address] [place] [address] Care Team Providers Care Bi Data Modeler Name Role Phone MorroLilia galvanjorden Easton APRN Primary Care Provider [phone] Reason for Visit * Reason Comments Procedure fibroscan * Referral (Routine) - Receiving Office to Obtain Authorization Specialty Diagnoses / Procedures Referred By Contact Referred To Contact Gastroenterology and Hepatology Diagnoses NAFLD (nonalcoholic fatty liver disease) Procedures VIBRATION CONTROLLED TRANSIENT ELASTOGRAPHY (VCTE) Letty Mackey MD [address] [place] [id number] [facility] Gi [address] [place] [address] Referral ID Status Reason Start Date Expiration Date Visits Requested Visits Authorized [id number] Receiving Office to Obtain Authorization 07/26/2019 1 1 Encounter Details Date Type Department Care Team (Late st Contact Info) Description 08/31/2019 14:30 EST Procedure visit [facility] Gastroenterology - [facility] [address] [place] [address] Shaq Phan MD PhD [address] [facility], [address] [place] [address] Fatty liver (Primary Dx) Social History Tobacco [...] No 12/02/2018 documented as of this encounter Procedure Notes * Shaq Phan MD - 08/31/2019 1430 ESTAssociated Order(s): VIBRATION CONTROLLED TRANSIENT ELASTOGRAPHY (VCTE) Procedure(s): VIBRATION CONTROLLED TRANSIENT ELASTOGRAPHY (VCTE) [facility] Hepatology Fibrosis Assessment Patient: Raul Trujillo : 1955 [employer] Specialist: Shaq Phan MD Referring Physician: Letty Godinez APRN, MD Disease diagnosis: fatty liver Procedure: Vibration Controlled Transient Elastography (VCTE) or Fibroscan [place] Protocol: Patient's identity, procedure and site were [...] Shaq Phan MD Cc: MD Denise Hoskins [address] [address] documented in this encounter Plan of Treatment Upcoming Encounters Date Type Department Care Team (Late st Contact Info) Description 08/08/2024 13:00 EST Office Visit [facility] Gastroenterology - [address] [phone] Kera Tatum PA-C [address] [place] [address], [address] [place] [address] documented as of this encounter Procedures Procedure Name Priority Date/Time Associated Diagnosis Comments VIBRATION CONTROLLED TRANSIENT ELASTOGRAPHY (VCTE) Routine 08/31/2019 14:30 EST NAFLD (nonalcoholic fatty liver disease) documented in this encounter Visit Diagnoses Diagnosis Fatty liver- Primary Other chronic nonalcoholic liver disease documented in this encounter Care Teams Bi Data Modeler Relationship Specialty Start Date End Date Denise Hooker APRN [address] [place] [address] PCP - General 09/13/18 documented as of this encounter
--- OUTSIDE RECORDS SUMMARY | 2024-03-04 00:27 | XMS_ITS | Encounter Summary ---
Author Organization [facility] Address [address] [place] [address] Care Team Providers Care Marketing Strategy Manager Name Role Phone Denise Hooker JENNIFER Primary Care Provider [phone] Reason for Visit * Reason Onset Date Comments Paperwork request 06/02/2019 Encounter Details Date Type Department Care Team ([facility] st Contact Info) Description 06/02/2019 Telephone [facility] Neurology - [address] [place] [address] [place] [id number] Ken Bran MD [address] [place] [address] [address] [place] [address] Paperwork request Social History Tobacco Use Types Packs/Day Years [...] * Telephone Encounter - Akua Kyle - 06/02/2019 1417 EST Nickie from [facility] called request recent office notes from Dr Bran. Routed notes via fax to [phone] documented in this encounter Plan of Treatment Upcoming Encounters Date Type Department Care Team (Late st Contact Info) Description 08/08/2024 13:00 EST Office Visit [facility] Gastroenterology - [address] [address] Kera Tatum PA-C [address] [facility], [address] [place] [phone] documented as of this encounter Visit Diagnoses Not on filedocumented in this encounter Care Teams Marketing Strategy Manager Relationship Specialty Start Date End Date Denise Hooker APRN [address] [place] [address] PCP - General 09/13/18 documented as of this encounter
--- OUTSIDE RECORDS SUMMARY | 2024-03-04 00:27 | XMS_ITS | Encounter Summary ---
Author Organization [facility] Address [address] [place] [address] Care Team Providers Care Tank Truck Milk Receiver Name Role Phone MorroDenise galvan JENNIFER Primary Care Provider [phone] Reason for Visit * Reason Onset Date Comments Appointment Related 06/01/2019 MRI at [facility] y Encounter Details Date Type Department Care Team ([facility] Contact Info) Description 06/01/2019 Telephone [facility] Neurology - [address] [phone] Ken Bran MD [address] [place] [address] [address] [place] [address] Appointment Related (MRI at [facility] ) Social History Tobacco Use Types Packs/Day [...] encounter Miscellaneous Notes * Telephone Encounter - Temo Allred - 06/08/2019 1332 EST Called [facility] and they said the patient called and was scheduled 06/23 at 1:00pm * Telephone Encounter - Temo Allred - 06/01/2019 1002 EST Faxed MRI Lumbar WO, screening form and auth to [facility] fax [phone]. They will review and call us with an appt. Patient requesting any day 3:00 or later and patient will be out of town 06/08 to 06/22 Please pass call to Romario or send encounter to Romario with appt time. documented in this encounter Plan of Treatment Upcoming Encounters Date Type Department Care Team (Late st Contact Info) Description 08/08/2024 13:00 EST Office Visit [facility] Gastroenterology - [address] [phone] Kera Tatum PA-C 111 [facility], [address] [place] [address] documented as of this encounter Visit Diagnoses Not on filedocumented in this encounter Care Teams Tank Truck Milk Receiver Relationship Specialty Start Date End Date Denise Hooker APRN [address] [place], [place] [id number] PCP - General 09/13/18 documented as of this encounter
--- OUTSIDE RECORDS SUMMARY | 2024-03-04 00:27 | XMS_ITS | Encounter Summary ---
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 Role Phone Denise Hooker APRN Primary Care Provider [phone] Reason for Referral * Follow Up (Routine/Next Available) - Receiving Office to Obtain Authorization Specialty Diagnoses / Procedures Referred By Claire jacques Referred To Contact Diagnoses Chest pain, unspecified type Shane Smith MD [address] [address] Referral ID Status Reason Start Date Expiration Date Visits Requested Visits Authorized [id number] Receiving Office to Obtain Authorization Continuity of Care 9 1 1 Question Answer Reason for Request: Post hospitalization follow up Encounter Details Date Type Department Care Team (Late st Contact Info) Description 12/02/2018 17:38 EDT - 12/03/2018 18:[address] [facility] Cardiac/Telemetry Unit [address] [place] [address] Birgit uDnn MD 111 [facility], Level [address] [place] [phone] Chon Mckeon MD [address] [place] [address] [place] [phone] NSTEMI (non-ST elevated myocardial infarction) ([facility]) (Primary Dx); Unstable angina ([facility]); Chest pain, unspecified type Discharge Disposition: Home or Self Care Social [...] No 12/02/2018 documented as of this encounter Discharge Diagnoses Diagnosis I25.110 Atherosclerotic heart disease of [place] coronary artery with unstable angina pectoris-I25.110[ICD-10-CM] E78.5 Hyperlipidemia, unspecified-E78.5[ICD-10-CM] I10 Essential (primary) hypertension-I10[ICD-10-CM] E11.9 Type 2 diabetes mellitus without complications-E11.9[ICD-10-CM] Z79.84 meterman (current) use of oral hypoglycemic drugs-Z79.84[ICD-10-CM] Z95.5 Presence of coronary angioplasty implant and graft-Z95.5[ICD-10-CM] I44.0 Atrioventricular block, first degree-I44.0[ICD-10-CM] documented in this encounter Discharge Summaries * Birgit Dunn MD - 12/03/2018 1836 EDT [facility] Division of Cardiovascular Medicine Department of Medicine [...] ??? Hypertensive disorder 09/07/2009 ??? Diabetes mellitus ([facility]) 09/07/2009 Oral agent - metformin Resolved Hospital Problems No resolved problems to display. HOSPITAL COURSE Claudia Batista is a 63 y.o. male with a history significant for coronary artery disease (status post 9 stents) type 2 diabetes, hypertension, hyperlipidemia, extensive tobacco use who presented as a trasnfer from [facility] with 2 weeks of exertional neck and [...] Kaye MD Internal Medicine, PGY-1 12/05/2018 Pager: [phone] Attending Attestation: I have personally evaluated Claudia [...] by mouth daily. 30 Tab 11 02/12/2016 ERGOCALCIFEROL, VITAMIN D2, (VITAMIN D ORAL) Take [...] documented in this encounter Progress Notes * Colette Sánchez RN - 12/03/2018 1022 EDT Initial Case Management/Social Work Assessment and Discharge Plan/Readmission Risk Assessment REASON FOR ADMISSION: USAP Patient understands reason for admission: Yes PATIENT CONTACT INFO VERIFIED: Yes(Josie Tirado, sister, ) PATIENT ADDRESS VERIFIED: Yes LIVING ARRANGEMENTS AND ACCESSIBILITY ISSUES: Living Arrangements: Alone, Private residence Handicap access: None Bathroom located on bedroom level?: Yes What in home social supports are available to the patient? Friends / neighbors, Family member(s) Is 24/ care available? NA ADVANCED DIRECTIVES, POA &/or COLST IN PLACE: Healthcare Directive: Yes, patient has advance directive for healthcare treatment Type of Healthcare Directive: Health care treatment directive Copy in Chart: No, copy requested from family DIRECTIVES FOR FINANCES: TRANSPORTATION: Transportation: Family CULTURAL, JEHOVAH'S WITNESS and/or LANGUAGE factors affecting health care/discharge planning: [...] for those at HIGH MODERATE RISK: Bring risk factors to attention of team to be addressed [...] Home Health Services: None DME Provider: Pharmacy: [facility] [address] [facility] [address] [facility] [address] [facility] [address] - [place], [place] - [address] [address] [facility] [place] - [address] [place] [address] [address] [facility] [address] [facility] [address] POST HOSPITAL TRANSITION PLAN: Patient lives alone in [place], [place]. 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 His sister lives about 40 mins away and is very supportive. Anticipate patient will d/c home when medically stable. No CM needs have been identified. Colette Sánchez RN 12/03/2018 10:25 * Main Kaye MD - 12/03/2018 0702 EDT Cardiology Progress [...] Resp Temp SpO2 O2 Device 12/03/18 1400 -- -- -- -- -- None 12/03/18 0806 123/77 67 BPM 16 [...] present. Medications Reviewed Labs CBC: Recent Labs 12/02/18183612/03/1841 WBC 10.26 8.31 HGB 15.7 15.7 HCT 46.5 46.5 MCV 83 84 PLT 297 266 BMP: Recent Labs 12/02/18183612/03/18 0541 CREATININE 0.74 0.77 BUN 14 14 NA 136 136 K 4.6 4.5 CL 97 97 CO2 28 28 MG 2.2 2.2 Cardiac Biomarkers: Recent Labs 12/02/181836 TROPONINI <0.034 Non-Invasive Findings last 24 hours: [...] history significant for coronary artery disease (status post 9 stents) type 2 diabetes, hypertension, hyperlipidemia, extensive tobacco use who presents with 2weeks of exertional neck and jaw pain as well as 2 days of neck and jaw pain while at rest. Patientadmitted to the inpatient cardiology service for left [...] is no longer n.p.o.) ?? 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 ?? Anxiety/depression: - Sertraline 50 mg daily at bedtime - Trazodone 50 mg daily at bedtime ?? Diet: Caffeine free, cardiac diet, consistent carbohydrate VTE Prophylaxis: Heparin drip Consults: N/A CODE STATUS: Full Admission Status Inpatient. Anticipated duration of hospitalization is greater than two midnights due to Unstable angina. ?? Main Kaye MD Internal Medicine, PGY-1 12/02/2018 Pager: [phone] documented in this encounter H&P Notes * Main Kaye MD - 12/02/2018 0713 EDT Cardiology History and Physical Admite Date: 12/02/2018 Date of Service: 12/02/2018 LOS: 0 days Service Date: 12/02/2018 Admit Date: 12/02/2018 17:38 Primary Care Provider: Denise Hooker Chief Complaint: Neck and jaw pain HPI Claudia Batista is a 63 y.o. male with a past history of of CAD (status post 9 stents placed (type 2diabetes, hypertension, hyperlipidemia who presents as a transfer from [facility] forury worsening neck and jaw pain. Over the winter the patient had been doing well with no exertional chestdiscomfort or dyspnea even with exercise. He was [...] many similar presentations of exertional dyspnea and neckand jaw pain with his prior myocardial infarction. Patient has had known coronary artery disease dating back to 1992 when he had his first heart attack subsequently the patient has had 9 stents overall since that time. Since the return of the patient's neck and jaw pain with exertion he has follow- up with his primarycare physician who performed an EKG and was trying to arrange for an outpatient stress test. While waiting for the outpatient stress test on Friday 12/01 the patient noticed this neck and jaw pain when he was sitting on the couch doing nothing. This is what prompted him to go to the emergency de partment and get worked up. Of note, patient states that he once remembers having neck and jaw pain, had a negative stress test, but had a positive left heart catheterization with stents placed. While in the emergency department at [facility], patient's labs had no troponin elevation, normal chest x-ray, EKG x3 readings which were negative for ischemia (normal sinus rhythm with an incomplete right bundle branch block). Review Of Systems: Full 10 point ROS obtained, pertinent findings noted in HPI. Prior Cardiac History: - 1992, 2003 myocardial infarction - August 23, 2003, 2 stents - September 07 2009, 3 stents placed in RCA - September 10, 2009, 3 stents placed in LAD - February 11, 2016, 1 stent placed Cardiac risk factors: Coronary artery disease, [id number] smoking history, hypertension, hyperlipidemia, family history(both sides have had multiple heart attacks) PMH PSH Past Medical History: Diagnosis Date ??? CAD (coronary artery disease) 09-10-09 PCI LAD prox MARY, LAD mid MARY, LAD distal BMS; 09-07-09 PCI MARY X 3 RCA; 2004 stents X2 ??? Diabetes mellitus ([facility]) oral agents ??? Diverticulitis ??? Hyperlipidemia ??? Hypertension ??? CA (myocardial infarction) ([facility]) 1992, 2003 ??? Recurrent infections rt foot 5th toe Past Surgical History: Procedure Laterality Date ??? CARPAL TUNNEL RELEASE bilateral ??? ROTATOR CUFF REPAIR right, fall 2015 ??? TOE AMPUTATION right ??? UMBILICAL HERNIA REPAIR Jun, 2009 Social [...] bedtime. Takes 2-10 mg tablets at bedtime Taking ??? amlodipine (NORVASC) [...] Units into the skin 2 times daily. 33units in the AM and 33 units in [...] Pulse: -- (), Resp: [16] (), BP: (126)/(79) (), SpO2: [100 %] (), Numeric Pain Level [...] history significant for coronary artery disease (status post 9 stents) type 2 diabetes, hypertension, hyperlipidemia, extensive tobacco use who presents with 2weeks of exertional neck and jaw pain as well as 2 days of neck and jaw pain while at rest. 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 Anxiety/depression: - [...] attestation - Birgit Dunn MD - 12/03/2018 1356 EDT Attending Attestation: I have personally seen and examined Claudia Batista, discussed the patient's management with the team, and agree with the findings and plan as outlined by Dr. Kaye. Classic symptoms of unstable angina, known CAD, for [facility]. Birgit Dunn MD documented in this encounter Procedure Notes * Kenan Gordon MD - 12/03/2018 1504 EDT Dear Denise Hooker NP Claudia Batista came to cardiac catheterization at the [facility] on 12/03/2018. He had presented with some anginal quality neck discomfort with recently increased activity. As you know he has a history of multiple previous interventions with stenting throughout much of the LAD and right coronary arteries. Today's catheterization is summarized [...] therapy is indicated. Kenan Gordon MD PagerNumber: [phone] 12/03/2018 15:04 documented in this encounter Miscellaneous Notes * Plan of Care - Juvenal Christiansen RN - 12/03/2018 1101 EDT Problem: Daily Care Plan Goals Goal: Care Plan Documentation Outcome: Ongoing 12/03/18 0806 Care Plan Focus Area of Focus Circulatory Status Goal This Shift VSS in prep for [facility] VS: BP 123/77 (BP Cuff Location: Left arm, Patient Position: Semi fowlers) Temp 36.2 ??C (97.2 ??F) (Tympanic) Resp 16 Ht 176.5 cm (69.5) Wt (!) 103.3 kg (227 lb 12.8 oz) SpO2 99% BMI 33.16 kg/m?? Data: Assumed care of pt at 0700. Pt admit for chest pain, awaiting LHC today. Pt denies CP, SOB atstart of shift. NSR on tele. Action: All medications administered as ordered (see eMAR). Heparin gtt infusing per protocol. Telemonitored per policy. Continually assessed for pain and offered interventions. Response: Pt pleasant and cooperative; able to make needs known. Echo today showed normal EF: 60%. Pt ambulating independently in hallway. Plan for [facility] today. 1600: Pt now s/p LHC via RRA; site remains C/D/I. No interventions made. Pt denies post-procedure CP, SOB. 1800: d/c order in. Pt passed orthos, ambulating independently in ruby. IV removed, tele removed. AVS discussed with pt and family, addressed all questions. JUVENAL CHRISTIANSEN RN 12/03/2018 10:58 * Plan of Care - Eric Brand RN - [...] to monitor ERIC BRAND RN 12/03/2018 4:19 * Plan of Care - Eric Brand RN - 12/02/2018 2449 EDT Problem: Daily Care Plan Goals Goal: [...] Office Visit [facility] Gastroenterology - [address] [id number] Kera Tatum PA-C [address] [place] [address], [facility], [address] [place] [phone] Pending Results Name Type Priority Associated Diagnoses Date /Time OUTSIDE IMAGES - OTHER CHEST Imaging 12/02/2018 14:58 EDT Scheduled Referrals Name Type Priority Associated Diagnoses Orde r Schedule AMB CONS/FOLLOW UP PRIMARY CARE PHYSICIAN Outpatient Referral Routine Chest pain, unspecified type Ordered: 12/03/2018 documented as of this encounter Procedures Procedure Name Priority Date/Time Associated Diagnosis Comments ECG REPORT - SCANNED 12/07/2018 11:46 EDT ECG REPORT - SCANNED 12/07/2018 11:28 EDT LEFT HEART CATH Routine 12/03/2018 15:50 EDT GLUCOSE, GLUCOMETER Routine 12/03/2018 1 5:35 EDT ECG REPORT - SCANNED 12/03/2018 13:46 EDT GLUCOSE, GLUCOMETER Routine 12/03/2018 1 1:22 EDT ECHOCARDIOGRAM Routine 12/03/2018 8:37 EDT GLUCOSE, GLUCOMETER Routine 12/03/2018 7 :46 EDT HEPARIN LEVEL - UNFRACTIONATED HEPARIN STAT 12/03/2018 5:41 EDT COMPLETE BLOOD COUNT Routine 12/03/2018 5:41 EDT BUN Routine 12/03/2018 5:41 EDT MAGNESIUM Routine 12/03/2018 5:41 EDT HEMOGLOBIN A1C Routine 12/03/2018 5:41 EDT CREATININE Routine 12/03/2018 5:41 EDT ELECTROLYTES Routine 12/03/2018 5:41 EDT HEPARIN LEVEL - UNFRACTIONATED HEPARIN STAT 12/03/2018 1:09 EDT INPATIENT ADD-ON Routine 12/02/2018 19:3 5 EDT GLUCOSE, GLUCOMETER Routine 12/02/2018 1 9:05 EDT TROPONIN I Routine 12/02/2018 18:37 EDT COMPLETE BLOOD COUNT Routine 12/02/2018 18:37 EDT BUN Routine 12/02/2018 18:37 EDT MAGNESIUM Routine 12/02/2018 18:37 EDT CREATININE Routine 12/02/2018 18:37 EDT ELECTROLYTES Routine 12/02/2018 18:37 EDT EKG 12-LEAD Routine 12/02/2018 18:08 EDT documented in this encounter Results * ECG REPORT - SCANNED (12/07/2018 11:46 EDT) 12/07/2018 11:4 6 EDT Scan 2 Personal Care Assistant PROCEDURE/MINOR MERCEDES GICAL ORDERABLES * ECG REPORT - SCANNED (12/07/2018 11:28 EDT) 12/07/2018 11:2 8 EDT Scan 2 Personal Care Assistant PROCEDURE/MINOR MERCEDES GICAL ORDERABLES * LEFT HEART CATH (12/03/2018 15:50 EDT) Anatomical Region Laterality Modality Other 12/03/2018 15:5 0 EDT Narrative 12/06/2018 8:20 EDT Cardiology [address] [place] [address] Catheterization Laboratory Study Patient: Claudia Batista ?Study Date: ? 12/03/2018 ? Accession #: ?[id number] : ? 1955 Referring: Denise Hooker Aprn Diagnostic Attending: ??Kenan Gordon Diagnostic Fellow: Fabian Randle MD ATTESTATION: I, Dr. Andrea Randle was the initial author of this report. Dr. Kenan Gordon was present and supervising for the entire procedure. I, Dr. Kenan Gordon have reviewed and agreed with the findings of this report. PROCEDURE PLAN: A diagnostic study was performed without intervention. RESEARCH STUDY: Patient is not enrolled in any research studies. IMPRESSIONS: 1. Mild coronary artery disease, status post multiple stent placement. ?? No stent restenosis. There is no indication for coronary artery ?? bypass grafting. There is no indication for percutaneous ?? intervention. 2. Atypical angina. The culprit lesion was not identified. SUMMARY: 1. HPI and indications: Dyspnea. 2. Coronary arteries: The coronary circulation is right dominant. 3. Left main: Minor luminal irregularities. 4. LAD: Prior intervention #1: stent in the mid LAD. The stented segment ?? is patent. Prior intervention #2: stent in the proximal LAD. The ?? stented segment is patent. 5. Left circumflex: Minor luminal irregularities. 6. Right coronary: Prior intervention #1: stent in the proximal RCA. The ?? stented segment is patent. Prior intervention #2: stent in the mid ?? RCA. The stented segment is patent. RECOMMENDATIONS: 1. ACC recommendation: Medical therapy and/or counseling. 2. Continue aspirin, at 81mgPOdaily, indefinitely. HISTORY: Dyspnea. ??PMH: ?? Myocardial infarction. ??Risk factors: ??Family history of coronary artery disease. Hypertension. Diabetes mellitus; on therapy with insulin. Dyslipidemia. ??Allergies: ??No known allergies. LABS, PRIOR TESTS, PROCEDURES AND SURGERY: Serum creatinine (current admission) of 0.8 mg/dl. ??Hemoglobin (pre-procedure) of 15.7 g/dl. ??Catheterization with coronary intervention. STUDY DATA: Study status: ??Cardiac cath: urgent. ??Patient status: ??Inpatient. Location: ??Catheterization laboratory. Sex: male. Patient is 63yr old. Height: 176.5cm. Weight: 103.3kg. BSA: 2.28m^2. Procedures performed: ?Right radial artery access. ?Left coronary angiography. ANESTHESIA: Conscious [...] Right radial artery access. A 6 Fr/10/.021 Milmay Sheath SLENDER ?? sheath was advanced into the vessel. 5. Selective left coronary angiography. A 5 Fr Tig Catheter 4.0 catheter ?? was advanced into the left coronary vessel ostium under fluoroscopic ?? guidance. Contrast was injected. Images were obtained in multiple ?? projections. 6. Right radial artery hemostasis. Mechanical compression was applied. STUDY COMPLETION: The estimated blood loss was 10ml. All catheters inserted during the procedure were removed. The patient tolerated the procedure well and was discharged from the lab. There were no complications. ??Contrast: Isovue 70ml (total dose). ??Isovue 130ml (wasted). ??Fluoroscopy time: 0.8min. ??Fluoroscopy dose: ??37.8cGy. CORONARY ARTERIES: The coronary circulation is right dominant. Left main: ??Minor luminal irregularities. LAD: Prior intervention #1: stent in the mid LAD. The stented segment is patent. Prior intervention #2: stent in the proximal LAD. The stented segment is patent. Left circumflex: ??Minor luminal irregularities. Right coronary: Prior intervention #1: stent in the proximal RCA. The stented segment is patent. Prior intervention #2: stent in the mid RCA. The stented segment is patent. HEMODYNAMICS: + + + Stage description ? Condition1:Condition 1 - + + + Arterial pressure s/d (m) 99/64 (80) ? + + + * Electronically signed by Kenan Gordon MD 2018-12-06 08:20 Procedure Note Kenan Gordon MD - 12/06/[address] [place] [id number] Catheterization Laboratory Study Patient: Claudia Batista Study Date: 12/03/2018 : 1955 Referring: Denise Hooker Aprn Diagnostic Attending: Kenan Gordon Diagnostic Fellow: Fabian Randle MD ATTESTATION: IDr. Andrea was the initial author of this report. Dr. Kenan Gordon was present and supervising for the entire procedure. Sina, Dr. Kenan Gordon have reviewed and agreed with the findings of this report. PROCEDURE PLAN: A diagnostic study was performed without intervention. RESEARCH STUDY: Patient is not enrolled in any research studies. IMPRESSIONS: 1. Mild coronary artery disease, status post multiple stent placement. No stent restenosis. There is no indication for coronary artery bypass grafting. There is no indication for percutaneous intervention. 2. Atypical angina. The culprit lesion was not identified. SUMMARY: 1. HPI and indications: Dyspnea. 2. Coronary arteries: The coronary circulation is right dominant. 3. Left main: Minor luminal irregularities. 4. LAD: Prior intervention #1: stent in the mid LAD. The stented segment is patent. Prior intervention #2: stent in the proximal LAD. The stented segment is patent. 5. Left circumflex: Minor luminal irregularities. 6. Right coronary: Prior intervention #1: stent in the proximal RCA. The stented segment is patent. Prior intervention #2: stent in the mid RCA. The stented segment is patent. RECOMMENDATIONS: 1. ACC recommendation: Medical therapy and/or counseling. 2. Continue aspirin, at 81mgPOdaily, indefinitely. HISTORY: Dyspnea. PMH: Myocardial infarction. Risk factors: Family history of coronary artery disease. Hypertension. Diabetes mellitus; on therapy with insulin. Dyslipidemia. Allergies: No known allergies. LABS, PRIOR TESTS, PROCEDURES AND SURGERY: Serum creatinine (current admission) of 0.8 mg/dl. Hemoglobin (pre-procedure) of 15.7 g/dl. Catheterization with coronary intervention. STUDY DATA: Study status: Cardiac cath: urgent. Patient status: Inpatient. Location: Catheterization laboratory. Sex: male. Patient is 63yr old. Height: 176.5cm. Weight: 103.3kg. BSA: 2.28m^2. Procedures performed: Right radial artery access. Left coronary angiography. ANESTHESIA: Conscious sedation by cardiology staff. PROCEDURE: 1. Initial setup. The patient was brought to the laboratory in the fasting state. A baseline ECG was recorded. Surface ECG leads, automatic cuff blood pressure measurements, and pulse oximetric signals were monitored. 2. Skin preparation. The planned puncture sites were prepped with chlorhexidine and draped in the usual sterile manner. 3. Local anesthesia. Using 2% Lidocaine, local anesthetic was administered to the access site(s). 4. Right radial artery access. A 6 Fr/10/.021 Milmay Sheath SLENDER sheath was advanced into the vessel. 5. Selective left coronary angiography. A 5 Fr Tig Catheter 4.0 catheter was advanced into the left coronary vessel ostium under fluoroscopic guidance. Contrast was injected. Images were obtained in multiple projections. 6. Right radial artery hemostasis. Mechanical compression was applied. STUDY COMPLETION: The estimated blood loss was 10ml. All catheters inserted during the procedure were removed. The patient tolerated the procedure well and was discharged from the lab. There were no complications. Contrast: Isovue 70ml (total dose). Isovue 130ml (wasted). Fluoroscopy time: 0.8min. Fluoroscopy dose: 37.8cGy. CORONARY ARTERIES: The coronary circulation is right dominant. Left main: Minor luminal irregularities. LAD: Prior intervention #1: stent in the mid LAD. The stented segment is patent. Prior intervention #2: stent in the proximal LAD. The stented segment is patent. Left circumflex: Minor luminal irregularities. Right coronary: Prior intervention #1: stent in the proximal RCA. The stented segment is patent. Prior intervention #2: stent in the mid RCA. The stented segment is patent. HEMODYNAMICS: + + + Stage description Condition1:Condition 1 - + + + Arterial pressure s/d (m) 99/64 (80) + + + * Electronically signed by Kenan Gordon MD 2018-12-06 08:20 Main Kaye MD CARDIAC CATH ORDERA BLES * (ABNORMAL) GLUCOSE, GLUCOMETER (12/03/2018 15:35 EDT) [facility] Glucose, Fingerstick 106(H) 70 - 100 mg/dl 12/03/2018 15:41 EDT [facility] Merchandise Clerk ID [id number] 12/03/2018 15:41 EDT [facility] Comment:[facility] BLOOD SPECIMEN / Unknown 12/03/2018 15:35 EDT 12/03/2018 15:41 EDT Birgit Dunn MD CHEMISTRY & B LOOD GAS ORDERABLES [facility] [address] [place] [address] * ECG REPORT - SCANNED (12/03/2018 13:46 EDT) 12/03/2018 13:4 6 EDT Scan 2 Personal Care Assistant PROCEDURE/MINOR MERCEDES GICAL ORDERABLES * (ABNORMAL) GLUCOSE, GLUCOMETER (12/03/2018 11:22 EDT) Glucose, Fingerstick 117(H) 70 - 100 mg/dl 12/03/2018 11:24 EDT [facility] Merchandise Clerk ID [id number] 12/03/2018 11:24 EDT [facility] Comment:Test Performed by [facility] BLOOD SPECIMEN / Unknown 12/03/2018 11:22 EDT 12/03/2018 11:24 EDT Birgit Dunn MD CHEMISTRY & B LOOD GAS ORDERABLES [facility] [address] [place] [address] * ECHOCARDIOGRAM (12/03/2018 8:37 EDT) Anatomical Region Laterality Modality Other 12/03/2018 8:37 EDT Narrative 12/03/2018 9:57 EDT *Interpreting Group:* *[facility] Cardiology* [address] [place] [address] Date of study: 12/03/2018 Transthoracic Echocardiography M-mode, complete 2D, complete spectral Doppler, and color Doppler *STUDY CONCLUSIONS* Summary: 1. Left ventricle: The cavity size was normal. Wall thickness was ?? normal. Systolic function was normal. The estimated ejection fraction ?? was 60%. Wall motion was normal; there were no diagnostic regional ?? wall motion abnormalities. 2. Right ventricle: The cavity size was normal. Wall thickness was ?? normal. Systolic function was normal. *PATIENT PRESENTATION* Height: ? 177.8cm (70in ) S/D Pressure: 114 / 63 Weight: ? 103kg (226.5lb ) BSA: ?2.29m^2 Test start time: ??08:37 AM. Test stop time: ??09:12 AM. ADMITTING ?Chon Mckeon MD ATTENDING ?Birgit Dunn MD REFERRING ?Denise Hooker Aprn PERFORMING ?? Uvc, Ip ORDERING ? Main Kaye SOCIAL SCIENCE INSTRUCTOR ??Michelle Poon *PROCEDURE DATA* Procedure information: ??The patient was identified by two identifiers. This study was interpreted by [facility]. Pertinent images and digital data are archived for permanent storage and are available for subsequent review. ??Study status: Routine. Transthoracic echocardiography. ??M-mode, complete 2D, complete spectral Doppler, and color Doppler. A Transthoracic Echocardiogram was performed. Scanning was performed from the parasternal, apical, subcostal, and suprasternal notch acoustic windows. Images were obtained using an Epiq 10 cardiac ultrasound machine. Image quality was poor. The study was technically limited due to body habitus. Intravenous contrast (Definity) was administered by Michelle Poon [facility] to enhance delineation of left ventricular endocardial borders. Prior to administration at least two (2) contiguous segments of the left ventricular border were not visualized. Definity amount administered was a total of 2ml. One vial was used. ??Study completion: ??The patient tolerated the procedure well. *INDICATIONS AND HISTORY* Indications: ?? Unstable Angina - Intermediate Coronary Syndrome I20.0. *CARDIAC ANATOMY* Left ventricle: ??The cavity size was normal. Wall thickness was normal. Systolic function was normal. The estimated ejection fraction was 60%. Wall motion was normal; there were no diagnostic regional wall motion abnormalities. Aortic valve: ?? Trileaflet; normal thickness leaflets. Mobility was not restricted. ??Doppler: ??Transvalvular velocity was within the normal range. There was no stenosis. There was no significant regurgitation. Aorta: ??Aortic root: The aortic root was normal in size. Mitral valve: ?? Structurally normal valve. ?? Mobility was not restricted. ??Doppler: ??Transvalvular velocity was within the normal range. There was no evidence for stenosis. There was no significant regurgitation. ?Peak gradient (D): 2.6mm Hg. Left atrium: ??The atrium was normal in size. Right ventricle: ??The cavity size was normal. Wall thickness was normal. Systolic function was normal. Pulmonic valve: ?Doppler: ??Transvalvular velocity was within the normal range. There was no evidence for stenosis. There was no significant regurgitation. Tricuspid valve: ?? Structurally normal valve. ?Doppler: ??Transvalvular velocity was within the normal range. There was no evidence for stenosis. There was no significant regurgitation. Pulmonary artery: ?Systolic pressure could not be accurately estimated. Right atrium: ??The atrium was normal in size. Pericardium: ??There was no pericardial effusion. Systemic veins: Inferior vena cava: The vessel was normal in size. The respirophasic diameter changes were in the normal range (greater than or equal to 50%), consistent with normal central venous pressure. Measurements Left ventricle ?Value ?02/11/2016 Reference [...] Legend: (L) ??and ??(H) ??vic values outside specified reference range. I have personally reviewed the images and have reviewed and edited the reported findings. Electronically signed by Pete Doresy MD 12/03/2018 09:57 Procedure Note Pete Garcia MD - 12/03/2018 *Interpreting Group:* *[facility]* [address] [place] [address] Date of study: 12/03/2018 Transthoracic Echocardiography M-mode, complete 2D, complete spectral Doppler, and color Doppler *STUDY CONCLUSIONS* Summary: 1. [...] MD REFERRING Denise Hooker Aprn PERFORMING [facility], ORDERING Main Kaye SOCIAL SCIENCE INSTRUCTOR Michelle Poon *PROCEDURE DATA* Procedure information: The patient was identified by two identifiers. This study was interpreted by [facility]. Pertinent images and digital data are archived for permanent storage and are available for subsequent review. Study status: Routine. Transthoracic echocardiography. M-mode, complete 2D, complete spectral Doppler, and color Doppler. A Transthoracic Echocardiogram was performed. Scanning was performed from the parasternal, apical, subcostal, and suprasternal notch acoustic windows. Images were obtained using an Zeccoq 10 cardiac ultrasound machine. Image quality was poor. The study was technically limited due to body habitus. Intravenous contrast (Definity) was administered by Michelle Poon [facility] to enhance delineation of left ventricular endocardial borders. Prior to administration at least two (2) contiguous segments of the left ventricular border were not visualized. Definity amount administered was a total of 2ml. One vial was used. Study completion: The patient tolerated the procedure well. *INDICATIONS AND HISTORY* Indications: Unstable Angina - Intermediate Coronary Syndrome I20.0. *CARDIAC ANATOMY* Left ventricle: The cavity size was normal. Wall thickness was normal. Systolic function was normal. The estimated ejection fraction was 60%. Wall motion was normal; there were no diagnostic regional wall motion abnormalities. Aortic valve: Trileaflet; normal thickness leaflets. Mobility was not restricted. Doppler: Transvalvular velocity was within the normal range. There was no stenosis. There was no significant regurgitation. Aorta: Aortic root: The aortic root was normal in size. Mitral valve: Structurally normal valve. Mobility was not restricted. Doppler: Transvalvular velocity was within the normal range. There was no evidence for stenosis. There was no significant regurgitation. Peak gradient (D): 2.6mm Hg. Left atrium: The atrium was normal in size. Right ventricle: The cavity size was normal. Wall thickness was normal. Systolic function was normal. Pulmonic valve: Doppler: Transvalvular velocity was within the normal range. There was no evidence for stenosis. There was no significant regurgitation. Tricuspid valve: Structurally normal valve. Doppler: Transvalvular velocity was within the normal range. There was no evidence for stenosis. There was no significant regurgitation. Pulmonary artery: Systolic pressure could not be accurately estimated. Right atrium: The atrium was normal in size. Pericardium: There was no pericardial effusion. Systemic veins: Inferior vena cava: The vessel was normal in size. The respirophasic diameter changes were in the normal range (greater than or equal to 50%), consistent with normal central venous pressure. Measurements Left ventricle Value 02/11/2016 Reference LV ID, ED, PLAX 4.9 cm 3.5 - 6.0 LV ID, ES, PLAX 3.2 cm 2.1 - 4.0 LV PW thickness, ED, PLAX 1.1 cm --------- LV end-diastolic volume, 1-p 108 ml --------- A2C LV ejection fraction, 1-p A2C 49 % 60 --------- LV end-diastolic volume, 1-p 131 ml --------- A4C LV ejection fraction, 1-p A4C 60 % 57 --------- LV IVRT, DP 99 ms 60 - 100 LV e', lateral 0.084 m/sec --------- LV E/e', lateral 10 --------- LV e', medial 0.071 m/sec --------- LV E/e', medial 11 --------- LV e', average 0.077 m/sec --------- LV E/e', average 10 --------- Ventricular septum Value 02/11/2016 Reference IVS thickness, ED, PLAX 1.1 cm --------- LVOT Value 02/11/2016 Reference LVOT ID, S 2.0 cm --------- LVOT area 3.1 cm^2 --------- Aorta Value 02/11/2016 Reference Aortic root ID 3.1 cm --------- Ascending aorta ID, A-P 3.0 cm --------- Ascending aorta ID, A-P, S 3.0 cm --------- Left atrium Value 02/11/2016 Reference LA ID, A-P, ES 3.9 cm --------- LA ID/bsa, A-P 1.7 cm/m^2 <=2.2 LA volume, ES, 2-p 58 ml --------- LA volume/bsa, ES, 2-p 25 ml/m^2 --------- LA/aortic root ratio 1.26 --------- Mitral valve Value 02/11/2016 Reference Mitral E-wave peak velocity 0.8 m/sec --------- Mitral A-wave peak velocity 0.91 m/sec --------- Mitral deceleration slope 334 cm/s^2 --------- Mitral deceleration time (H) 239 ms 150 - 230 Mitral pressure half-time 70 ms --------- Mitral peak gradient, D 2.6 mm Hg --------- Mitral E/A ratio, peak 0.9 --------- Legend: (L) and (H) vic values outside specified reference range. I have personally reviewed the images and have reviewed and edited the reported findings. Electronically signed by Pete Dorsey MD 12/03/2018 09:57 Main Kaye MD CARDIAC ECHO ORDERA BLEJaime * (ABNORMAL) GLUCOSE, GLUCOMETER (12/03/2018 7:46 EDT) Glucose, Fingerstick 155(H) 70 - 100 mg/dl 12/03/2018 7:51 EDT [facility] Merchandise Clerk ID [id number] 12/03/2018 7:51 EDT [facility] Comment:Test Performed by [facility] BLOOD SPECIMEN / Unknown 12/03/2018 7:46 EDT 12/03/2018 7:51 EDT Birgit Dunn MD CHEMISTRY & B LOOD GAS ORDERABLES Performing Organization Address [facility] Co de Phone Number [facility] [address] [place] [address] * HEPARIN LEVEL - UNFRACTIONATED HEPARIN (12/03/2018 5:41 EDT) Heparin Level-UFH 0.33 IU/mL 019 6:22 EDT [facility] Comment: Unfractionated heparin therapeutic range = 0.3-0.7 IU/ml This test is not intended for monitoring direct Xa inhibitors, direct thrombin inhibitors, or fondaparinux. Exogenous ATIII is NOT supplied in this assay. For unexpected or persistently low levels, consider measuring patient's ATIII level. Blood specimen (specimen) BLOOD SPECIMEN / Unknown 12/03/2018 5:41 EDT 12/03/2018 5:55 EDT Main Kaye MD HEMATOLOGY & PF4 OR DERABLES Performing Organization Address [facility] Co de Phone Number [facility] [address] [place] [id number] * BUN (12/03/2018 5:41 EDT) BUN 14 10 - 26 mg/dl 12/03/2018 6:23 EDT [facility] Blood specimen (specimen) BLOOD SPECIMEN / Unknown 12/03/2018 5:41 EDT 12/03/2018 5:55 EDT Main Kaye MD CHEMISTRY & BLOOD G ORDERABLES Performing Organization Address [facility] Co de Phone Number [facility] [address] [place] [address] * MAGNESIUM (12/03/2018 5:41 EDT) Magnesium 2.2 1.7 - 2.8 mg/dl 12/03/2018 6:23 EDT [facility] Blood specimen (specimen) BLOOD SPECIMEN / Unknown 12/03/2018 5:41 EDT 12/03/2018 5:55 EDT Main Kaye MD CHEMISTRY & BLOOD G ORDERABLES Performing Organization Address [facility] de Phone Number [facility] [address] [place] [address] * CREATININE (12/03/2018 5:41 EDT) Creatinine 0.77 0.66 - 1.25 mg/dl 12/03/2018 6:23 T [facility] GFR, Calculated 96 >60 ml/min/1.7 3m2 12/03/2018 6:23 T [facility] Comment: eGFR calculated using CKD-EPI equation for non Americans. Multiply eGFR by 1.16 for Americans. Blood specimen (specimen) BLOOD SPECIMEN / Unknown 12/03/2018 5:41 EDT 12/03/2018 5:55 EDT Main Kaye MD CHEMISTRY & BLOOD G ORDERABLES Performing Organization Address [facility] de Phone Number [facility] [address] [place] [address] * COMPLETE BLOOD COUNT (12/03/2018 5:41 EDT) WBC 8.31 4.0 - 10.4 K/cmm 12/03/2018 6:05 [facility] RBC 5.56 4.36 - 5.78 M/cmm 12/03/2018 6:05 [facility] Hemoglobin 15.7 13.8 - 17.3 gm/dl 12/03/2018 6:05 [facility] HCT 46.5 39.5 - 50.2 % 12/03/2018 6:05 [facility] MCV 84 81 - 95 fl 12/03/2018 6:05 [facility] MCH 28.2 27.6 - 33.0 pg 12/03/2018 6:05 EDT [facility] MCHC 33.8 32.8 - 36.4 gm/dl 12/03/2018 6:05 T [facility] RDW-CV 13.6 <14.2 % 12/03/2018 6:05 T [facility] RDW-SD 41.6 <46.0 fl 12/03/2018 6:05 T [facility] PLT 266 141 - 377 K/cmm 12/03/2018 6:05 T [facility] MPV 10.3 9.5 - 12.7 fl 12/03/2018 6:05 EDT [facility] Blood specimen (specimen) BLOOD SPECIMEN / Unknown 12/03/2018 5:41 EDT 12/03/2018 5:55 EDT Main Kaye MD HEMATOLOGY & PF4 OR DERABLES Performing Organization Address City/[facility]/ZIP Co de Phone Number [facility] [address] [place] [address] * ELECTROLYTES (12/03/2018 5:41 EDT) Sodium 136 136 - 145 mEq/L 12/03/2018 6:23 T [facility] Potassium 4.5 3.5 - 5.0 mEq/L 12/03/2018 6:23 [facility] Chloride 97 96 - 110 mEq/L 12/03/2018 6:23 T [facility] CO2 28 22 - 32 mEq/L 12/03/2018 6:23 T [facility] Blood specimen (specimen) BLOOD SPECIMEN / Unknown 12/03/2018 5:41 EDT 12/03/2018 5:55 EDT Main Kaye MD CHEMISTRY & BLOOD G ORDERABLES Performing Organization Address City/[facility]/ZIP Co de Phone Number [facility] [address] [place] [address] * HEMOGLOBIN A1C (12/03/2018 5:41 EDT) Hemoglobin A1C 7.0 % 12/03/2018 9:51 EDT [facility] Comment: Reference Range: <5.7% Normal 5.7-6.4% Prediabetes =>6.5% Diagnostic for diabetes (if confirmed) Goals for glycemic control in diabetes ADA 2017 For non adults with diabetes: ?? Target <7.0% For children and adolescents with type 1 diabetes: ?? Target <7.5% More or less stringent targets may be appropriate for individual patients. Est Avg Glucose 154 mg/dl 9 9:51 EDT [facility] Comment: eAG represents the A1c result expressed as average glucose in mg/dl. Blood specimen (specimen) BLOOD SPECIMEN / Unknown 12/03/2018 5:41 EDT 12/03/2018 5:55 EDT Birgit Dunn MD CHEMISTRY & B LOOD GAS ORDERABLES Performing Organization Address [facility] Co de Phone Number [facility] [address] [place] [address] * HEPARIN LEVEL - UNFRACTIONATED HEPARIN (12/03/2018 1:09 EDT) Heparin Level-UFH 0.46 IU/mL 019 1:33 EDT [facility] Comment: Unfractionated heparin therapeutic range = 0.3-0.7 IU/ml This test is not intended for monitoring direct Xa inhibitors, direct thrombin inhibitors, or fondaparinux. Exogenous ATIII is NOT supplied in this assay. For unexpected or persistently low levels, consider measuring patient's ATIII level. Blood specimen (specimen) BLOOD SPECIMEN / Unknown 12/03/2018 1:09 EDT 12/03/2018 1:12 EDT Birgit Dunn MD HEMATOLOGY & PF4 ORDERABLES Performing Organization Address [facility]/ZIP Co de Phone Number [facility] [address] [place] [address] * INPATIENT ADD-ON (12/02/2018 19:35 EDT) Tests to be added TROPONIN 12/02/2018 19:31 EDT [facility] Number for problems [id number] 12/02/2018 19:38 EDT [facility] Accession number [id number] ALREADY PENDING ON ACC NUMBER [id number] 12/02/2018 19:38 EDT [facility] TOPOGRAPHY UNKNOWN / Unknown 12/02/2018 19:35 EDT 12/02/2018 19:37 EDT Main Kaye MD HEMATOLOGY & PF4 OR DERABLES Performing Organization Address [facility] Co de Phone Number [facility] [address] [place] [address] * (ABNORMAL) GLUCOSE, GLUCOMETER (12/02/2018 19:05 EDT) Glucose, Fingerstick 118(H) 70 - 100 mg/dl 12/02/2018 20:04 EDT [facility] Merchandise Clerk ID [id number] 12/02/2018 20:04 EDT [facility] Comment:Test Performed by [facility] BLOOD SPECIMEN / Unknown 12/02/2018 19:05 EDT 12/02/2018 20:04 EDT Birgit Dunn MD CHEMISTRY & B LOOD GAS ORDERABLES Performing Organization Address [facility] Co de Phone Number [facility] [address] [place] [address] * BUN (12/02/2018 18:37 EDT) BUN 14 10 - 26 mg/dl 12/02/2018 19:26 EDT [facility] Blood specimen (specimen) BLOOD SPECIMEN / Unknown 12/02/2018 18:37 EDT 12/02/2018 18:58 EDT Main Kaye MD CHEMISTRY & BLOOD G ORDERABLES Performing Organization Address [facility] Co de Phone Number [facility] [address] [place] [address] * MAGNESIUM (12/02/2018 18:37 EDT) Magnesium 2.2 1.7 - 2.8 mg/dl 12/02/2018 19:26 EDT [facility] Blood specimen (specimen) BLOOD SPECIMEN / Unknown 12/02/2018 18:37 EDT 12/02/2018 18:58 EDT Main Kaye MD CHEMISTRY & BLOOD G ORDERABLES Performing Organization Address [facility] de Phone Number [facility] [address] [place] [address] * CREATININE (12/02/2018 18:37 EDT) Creatinine 0.74 0.66 - 1.25 mg/dl 12/02/2018 19:26 [facility] GFR, Calculated 97 >60 ml/min/1.7 3m2 12/02/2018 19:26 T [facility] Comment: eGFR calculated using CKD-EPI equation for non Americans. Multiply eGFR by 1.16 for Americans. Blood specimen (specimen) BLOOD SPECIMEN / Unknown 12/02/2018 18:37 EDT 12/02/2018 18:58 EDT Main Kaye MD CHEMISTRY & BLOOD G ORDERABLES Performing Organization Address [facility] de Phone Number [facility] [address] [place] [address] * COMPLETE BLOOD COUNT (12/02/2018 18:37 EDT) WBC 10.26 4.0 - 10.4 K/cmm 12/02/2018 19:09 [facility] RBC 5.58 4.36 - 5.78 M/cmm 12/02/2018 19:09 [facility] Hemoglobin 15.7 13.8 - 17.3 gm/dl 12/02/2018 19:09 [facility] HCT 46.5 39.5 - 50.2 % 12/02/2018 19:09 [facility] MCV 83 81 - 95 fl 12/02/2018 19:09 [facility] MCH 28.1 27.6 - 33.0 pg 12/02/2018 19:09 [facility] MCHC 33.8 32.8 - 36.4 gm/dl 12/02/2018 19:09 [facility] RDW-CV 13.5 <14.2 % 12/02/2018 19:09 [facility] RDW-SD 41.3 <46.0 fl 12/02/2018 19:09 [facility] PLT 297 141 - 377 K/cmm 12/02/2018 19:09 [facility] MPV 10.5 9.5 - 12.7 fl 12/02/2018 19:09 [facility] Blood specimen (specimen) BLOOD SPECIMEN / Unknown 12/02/2018 18:37 EDT 12/02/2018 18:58 EDT Main Kaye MD HEMATOLOGY & PF4 OR DERABLES Performing Organization Address City/[facility]/ZIP Co de Phone Number [facility] [address] [place] [address] * ELECTROLYTES (12/02/2018 18:37 EDT) Sodium 136 136 - 145 mEq/L 12/02/2018 19:26 [facility] Potassium 4.6 3.5 - 5.0 mEq/L 12/02/2018 19:26 [facility] Chloride 97 96 - 110 mEq/L 12/02/2018 19:26 [facility] CO2 28 22 - 32 mEq/L 12/02/2018 19:26 [facility] Blood specimen (specimen) BLOOD SPECIMEN / Unknown 12/02/2018 18:37 EDT 12/02/2018 18:58 EDT Main Kaye MD CHEMISTRY & BLOOD G ORDERABLES Performing Organization Address [facility] Co de Phone Number [facility] [address] [place] [address] * TROPONIN I (12/02/2018 18:37 EDT) Troponin I (ng/mL) <0.034 <0.034 ng/ml 12/02/2018 19:40 EDT [facility] Comment: The results of this assay can be falsely lowered due to the consumption of Biotin. Blood specimen (specimen) BLOOD SPECIMEN / Unknown 12/02/2018 18:37 EDT 12/02/2018 18:58 EDT Main Kaye MD CHEMISTRY & BLOOD G ORDERABLES Performing Organization Address [facility]/State/ZIP Co de Phone Number [facility] [address] [place] [address] * EKG 12-LEAD (12/02/2018 18:08 EDT) 12/02/2018 18:0 8 EDT Narrative [facility] - 12/03/2018 13:42 EDT ? [facility] ? Test Date: ?2018-12-02 Pat Name: ? CLAUDIA BATISTA ? Department: ?? Min 5 ? Room: ? ME505 Gender: ? Male ? Clinical Resource Nurse: ?? [id number] : ?1955 ? Requested By: ALEX ROBLEDO Order Number: [id number] ? Messi HAYES: ?? KENAN GORDON MD ? Measurements Intervals ?[place] ? Rate: ? 62 ? P: ?21 NC: ? 228 ?QRS: ?70 QRSD: ? 112 ?T: ?11 QT: ? 406 ? QTc: ?415 ? Interpretive Statements SINUS RHYTHM WITH FIRST DEGREE AV BLOCK MODERATE INTRAVENTRICULAR CONDUCTION DELAY Compared to ECG 02/11/2016 12:39:08 No significant change I reviewed the tracing and have either agreed or edited the findings in this report. Electronically Signed On 12-03-2018 13:42:36 EDT by KENAN GORDON MD. Procedure Note Kenan Gordon MD - 12/03/2018 [facility] Test Date: 2018-12-02 Pat Name: CLAUDIA BATISTA Department: [place] [address] Room: [facility] Gender: Male Clinical Resource Nurse: [id number] : 1955 Requested By: ALEX ROBLEDO Order Number: [id number] Reading MD: KENAN GORDON MD Measurements Intervals [place] Rate: 62 P: 21 NC: 228 QRS: 70 QRSD: 112 T: 11 QT: 406 QTc: 415 Interpretive Statements SINUS RHYTHM WITH FIRST DEGREE AV BLOCK MODERATE INTRAVENTRICULAR CONDUCTION DELAY Compared to ECG 02/11/2016 12:39:08 No significant change I reviewed the tracing and have either agreed or edited the findings inthis report. Electronically Signed On 12-03-2018 13:42:36 EDT by KENAN CAMPA. Birgit Dunn MD CARDIAC ECG O RDERABLES [facility] EKG documented in this encounter Visit Diagnoses Diagnosis Chest pain- Primary Chest pain, unspecified NSTEMI (non-ST elevated myocardial infarction) ([facility]) Acute myocardial infarction, subendocardial infarction, episode of care unspecified Unstable angina ([facility]) Intermediate coronary syndrome Chest pain, unspecified type Coronary atherosclerosis Coronary atherosclerosis of unspecified type of vessel, [employer] or graft Hyperlipidemia with target LDL less than 70 Other and unspecified hyperlipidemia Hypertensive disorder Unspecified essential hypertension Diabetes mellitus ([facility]) Type II or unspecified type diabetes mellitus without mention of complication, not stated as uncontrolled Depression Depressive disorder, not elsewhere classified documented in this encounter Administered Medications Inactive Administered Medications - up to 3 most recent administrations Medication Order MAR Action Action Date Dose Rate Site amLODIPine (NORVASC) tablet 10 mg 10 mg, oral, DAILY, First dose on Thu12/03/18 at 0900, Until Discontinued, Routine Given 12/03/2018 8:33 EDT 10 mg aspirin EC tablet 81 mg 81 mg, oral, DAILY, First dose on Thu12/03/18 at 0900, Until Discontinued, Routine Given 12/03/2018 8:34 EDT 81 mg clopidogrel (PLAVIX) tablet 600 mg 600 mg, oral, Once (Without Time Specified), 1 dose, Starting on Thu12/02/18 at 1818, Until Thu12/02/18 at 1937, Routine Given 12/02/2018 19:37 EDT 600 mg clopidogrel (PLAVIX) tablet 75 mg 75 mg, oral, DAILY, First dose on Thu12/03/18 at 1030, Until Discontinued, Routine Given 12/03/2018 10:25 EDT 75 mg dextrose 50 % solution 12.5 g 12.5 g (25 mL), intravenous, PRN, Starting on Thu12/02/18 at 1843, Until Thu12/03/18 at 2037, Low Blood Sugar, Routine fentaNYL citrate (PF) 50 mcg/mL injection 1 dose, Starting on Thu12/03/18 at 1423, Until Thu12/03/18 at 2038 fentaNYL citrate (PF) injection intravenous, PRN, Starting on Thu12/03/18 at 1447, Until Thu12/03/18 at 1447, Routine Given 12/03/2018 14:47 EDT 50 mcg glucagon injection 1 mg 1 mg, intramuscular, PRN, Starting on Thu12/02/18 at 1843, Until Thu12/03/18 at 2037, Low blood sugar, Routine heparin 1,000 unit/mL injection 5,900 Units 5,900 Units (rounded from 5,887 Units = 70 Units/kg ? 84.1 kg Adjusted weight), intravenous, NOW X1, 1 dose, On Thu12/02/18 at 1845, STAT Given 12/02/2018 18:57 EDT 5,900 Units heparin 1,000 unit/mL injection 1 dose, Starting on Thu12/03/18 at 1423, Until Thu12/03/18 at 8 heparin in 1/2 NS 25,000 unit/250 mL infusion 15 Units/kg/hr ? 84.5 kg Adjusted weight (12.675 mL/hr, rounded to 12.7 mL/hr), intravenous, CONTINUOUS, Starting on Thu12/02/18 at 1900, Until Thu12/03/18 at 1455, Routine Rate Documented 12/03/2018 7:57 EDT 15 Units/kg/hr 12.7 mL/hr Rate Documented 12/03/2018 0:00 EDT 15 Units/kg/hr 12.7 mL /hr Rate Documented 12/02/2018 19:39 EDT 15 Units/kg/hr 12.7 m L/hr insulin aspart U-100 (NOVOLOG FLEXPEN) injection subcutaneous, 3 TIMES DAILY WITH MEALS, First dose on Thu12/02/18 at 1915, Until Discontinued, Routine Given 12/03/2018 7:57 EDT 3 Units insulin glargine (LANTUS SOLOSTAR) injection pen 30 Units 30 Units, subcutaneous, ONCE DAILY L.A. INSULIN, First dose (after last modification) on Thu12/03/18 at 1015, Until Discontinued, Routine Given 12/03/2018 9:58 EDT 30 Units lidocaine 20 mg/mL (2 %) injection 1 dose, Starting on Thu12/03/18 at 1423, Until Thu12/03/18 at 2038 lisinopril (PRINIVIL, ZESTRIL) tablet 5 mg 5 mg, oral, DAILY, First dose on Thu12/03/18 at 0900, Until Discontinued, Routine Given 12/03/2018 8:34 EDT 5 mg metoprolol XL (TOPROL-XL) tablet 150 mg 150 mg, oral, DAILY, First dose on Thu12/03/18 at 0900, Until Discontinued Given 12/03/2018 8:34 EDT 150 mg midazolam (PF) (VERSED) 1 mg/mL injection 1 dose, Starting on Thu12/03/18 at 1423, Until Thu12/03/18 at 2038 midazolam (PF) (VERSED) injection intravenous, PRN, Starting on Thu12/03/18 at 1447, Until Thu12/03/18 at 1447, Routine Given 12/03/2018 14:47 EDT 1 mg nitroglycerin 100 mcg/mL syringe 1 dose, Starting on Thu12/03/18 at 1423, Until Thu12/03/18 at 2038 rosuvastatin (CRESTOR) tablet 40 mg 40 mg, oral, AT BEDTIME, First dose on Thu12/02/18 at 2100, Until Discontinued, Routine Given 12/02/2018 21:11 EDT 40 mg sertraline (ZOLOFT) tablet 50 mg 50 mg, oral, AT BEDTIME, First dose on Thu12/02/18 at 2100, Until Discontinued, Routine Given 12/02/2018 21:11 EDT 50 mg sodium chloride 0.9 % (NS) infusion intravenous, FA IP EQF CONTINUOUS PRN FOR ONE STEP MEDS, Starting on Thu12/03/18 at 1433, Until Thu12/03/18 at 1433, Routine New Bag 12/03/2018 14:33 EDT 25 mL/hr 25 mL/hr sodium chloride 0.9 % flush 3 mL 3 mL, intravenous, EVERY 8 HOURS, First dose on Thu12/02/18 at 1815, Until Discontinued, Routine Given 12/03/2018 15:45 EDT 3 mL Given 12/03/2018 9:12 EDT 3 mL Given 12/02/2018 18:38 EDT 3 mL traZODone (DESYREL) tablet 50 mg 50 mg, oral, AT BEDTIME, First dose on Darlin 12/02/18 at 2100, Until Discontinued, Routine Given 12/02/2018 21:11 EDT 5 0 mg verapamil (ISOPTIN) 2.5 mg/mL injection 1 dose, Starting on Thu12/03/18 at 1423, Until Thu12/03/18 at 2038 documented in this encounter Discontinued Medications Medication Sig Discontinue Reason Start Date End Da te AMITRIPTYLINE HCL (AMITRIPTYLINE ORAL) Take 20 mg by mouth at bedtime. Takes 2-10 mg tablets at bedtime 12/02/2018 dapagliflozin (FARXIGA) 5 mg tabletIndications:FARX IGA Take 5 mg by mouth daily. 12/02/2018 metformin (GLUCOPHAGE) 1,000 mg tabletIndications:type 2 diabetes mellitus Take by mouth 2 times daily with meals. Restart Metformin Sat Take as previously prescribed Metformin 1000 mg in the morning and Metformin 500 mg each evening, Indications: TYPE 2 DIABETES MELLITUS 09/10/2009 12/02/2018 pramipexole (MIRAPEX) 0.125 mg tablet Take 0.125 mg by mouth. Reported on 09/09/2016 12/02/2018 liraglutide (VICTOZA) 0.6 mg/0.1 mL (18 mg/3 mL) injectable pen Inject 1.8 mg into the skin daily. 12/03/2018 documented as of this encounter Historical Medications * This list may reflect changes made after this encounter. Medication Sig Dispensed Refills Start Date End Date metFORMIN (GLUCOPHAGE) 1,000 mg tablet Take 1,000 mg by mouth 2 times daily. added in this encounter Active and Recently Administered Medications Times are shown in EDT. Scheduled Medication Order 12/01/2018 12/02/2018 12/03/2018 amLODIPine (NORVASC) tablet 10 mg 10 mg, oral, DAILY, First dose on Thu12/03/18 at 0900, Until Discontinued, Routine 0833 (Given - Provid er: Juvenal Christiansen RN) aspirin EC tablet 81 mg 81 mg, oral, DAILY, First dose on Thu12/03/18 at 0900, Until Discontinued, Routine 0834 (Given - Provid er: Juvenal Christiansen RN) clopidogrel (PLAVIX) tablet 600 mg (COMPLETED) 600 mg, oral, Once (Without Time Specified), 1 dose, Starting on Thu12/02/18 at 1818, Until Thu12/02/18 at 1937, Routine 1937 (Given - Provider: Eric Brand RN) clopidogrel (PLAVIX) tablet 75 mg 75 mg, oral, DAILY, First dose on Thu12/03/18 at 1030, Until Discontinued, Routine 1025 (Given - Provid er: Juvenal Christiansen RN) heparin 1,000 unit/mL injection 5,900 Units (COMPLETED) 5,900 Units (rounded from 5,887 Units = 70 Units/kg ? 84.1 kg Adjusted weight), intravenous, NOW X1, 1 dose, On Thu12/02/18 at 1845, STAT 1857 (Given - Provider: Laura Mart RN) insulin aspart U-100 (NOVOLOG FLEXPEN) injection subcutaneous, 3 TIMES DAILY WITH MEALS, First dose on Thu12/02/18 at 1915, Until Discontinued, Routine 1905 (Not Given - Provider: Laura Mart RN - Reason: Order parameters not met) 0757 (Given - Provider: Juvenal Christiansen RN)1150 (Not Given - Provider: Juvenal Christiansen RN - Reason: Order parameters not met)1601 (Not Given - Provider: Juvenal Christiansen RN - Reason: Order parameters not met) insulin glargine (LANTUS SOLOSTAR) injection pen 30 Units 30 Units, subcutaneous, ONCE DAILY L.A. INSULIN, First dose (after last modification) on Thu12/03/18 at 1015, Until Discontinued, Routine 0958 (Given - Provid er: Juvenal Christiansen RN) lisinopril (PRINIVIL, ZESTRIL) tablet 5 mg 5 mg, oral, DAILY, First dose on Thu12/03/18 at 0900, Until Discontinued, Routine 0834 (Given - Provid er: Juvenal Christiansen RN) metoprolol XL (TOPROL-XL) tablet 150 mg 150 mg, oral, DAILY, First dose on Thu12/03/18 at 0900, Until Discontinued 0834 (Given - Provid er: Juvenal Christiansen RN) rosuvastatin (CRESTOR) tablet 40 mg 40 mg, oral, AT BEDTIME, First dose on Thu12/02/18 at 2100, Until Discontinued, Routine 2110 (Given - Provider: Eric Brand RN) sertraline (ZOLOFT) tablet 50 mg 50 mg, oral, AT BEDTIME, First dose on Thu12/02/18 at 2100, Until Discontinued, Routine 2110 (Given - Provider: Eric Brand RN) sodium chloride 0.9 % flush 3 mL 3 mL, intravenous, EVERY 8 HOURS, First dose on Thu12/02/18 at 1815, Until Discontinued, Routine 183 (Given - Provider: Laura Mart RN) 0028 (Not Given - Provider: Eric Brand RN - Reason: Other - Comment: infusing)0912 (Given - Provider: Juvenal Christiansen RN)1545 (Given - Provider: Juvenal Christiansen RN) traZODone (DESYREL) tablet 50 mg 50 mg, oral, AT BEDTIME, First dose on Thu12/02/18 at 2100, Until Discontinued, Routine 2110 (Given - Provider: Eric Brand RN) Continuous Medication Order 12/01/2018 12/02/2018 12/03/2018 heparin in 1/2 NS 25,000 unit/250 mL infusion (CANCELED) 15 Units/kg/hr ? 84.5 kg Adjusted weight (12.675 mL/hr, rounded to 12.7 mL/hr), intravenous, CONTINUOUS, Starting on Thu12/02/18 at 1900, Until Thu12/03/18 at 1455, Routine 1857 (New Bag - Provider: Laura Mart RN)1939 (Rate Documented - Provider: Eric Brand RN) 0000 (Rate Documented - Provider: Eric Brand RN)0757 (Rate Documented - Provider: Juvenal Christiansen RN)1433 (Completed - Provider: Puja Live RN) PRN Medication Order 12/01/2018 12/02/2018 12/03/2018 dextrose 50 % solution 12.5 g 12.5 g (25 mL), intravenous, PRN, Starting on Darlin 12/02/18 at 1843, Until Thu12/03/18 at 2038, Low Blood Sugar, Routine fentaNYL citrate (PF) injection (COMPLETED) intravenous, PRN, Starting on Thu12/03/18 at 1447, Until Thu12/03/18 at 1447, Routine 1447 (Given - Provid er: Hardeep Moralez RN) glucagon injection 1 mg 1 mg, intramuscular, PRN, Starting on Darlin 12/02/18 at 1843, Until Thu12/03/18 at 2038, Low blood sugar, Routine midazolam (PF) (VERSED) injection (COMPLETED) intravenous, PRN, Starting on Thu12/03/18 at 1447, Until Thu12/03/18 at 1447, Routine 1447 (Given - Provid er: Hardeep Moralez RN) nitroGLYCERIN (NITROSTAT) SL tablet 0.4 mg 0.4 mg, sublingual, EVERY 5 MIN PRN, Starting on Darlin 12/02/18 at 1750, Until Thu12/03/18 at 2037, Chest Pain, Routine sodium chloride 0.9 % (NS) infusion (COMPLETED) intravenous, FA IP EQF CONTINUOUS PRN FOR ONE STEP MEDS, Starting on Thu12/03/18 at 1433, Until Thu12/03/18 at 1433, Routine 1433 (New Bag - Prov ider: Puja Live RN) No Frequency Medication Order 12/01/2018 12/02/2018 12/03/2018 fentaNYL citrate (PF) 50 mcg/mL injection 1 dose, Starting on Thu12/03/18 at 1423, Until Thu12/03/18 at 2037 heparin 1,000 unit/mL injection 1 dose, Starting on Thu12/03/18 at 1423, Until Thu12/03/18 at 2037 lidocaine 20 mg/mL (2 %) injection 1 dose, Starting on Thu12/03/18 at 1423, Until Thu12/03/18 at 2037 midazolam (PF) (VERSED) 1 mg/mL injection 1 dose, Starting on Thu12/03/18 at 1423, Until Thu12/03/18 at 2037 nitroglycerin 100 mcg/mL syringe 1 dose, Starting on Thu12/03/18 at 1423, Until Thu12/03/18 at 2037 verapamil (ISOPTIN) 2.5 mg/mL injection 1 dose, Starting on Thu12/03/18 at 1423, Until Thu12/03/18 at 2037 documented in this encounter Orders Medications Ordered That [facility] ht Not Have Been Administered Count Last Ordered Date First Ordered Date fentaNYL citrate (PF) 50 mcg/mL injection 1 12/03/2018 heparin 1,000 unit/mL injection 1 9 insulin glargine (LANTUS HIREN OSTAR) injection pen 30 Units 2 12/03/2018 12/02/2018 lidocaine 20 mg/mL (2 %) injection 1 2018 midazolam (PF) (VERSED) 1 mg/mL injection 1 12/03/2018 nitroglycerin 100 mcg/mL syringe 1 12/04/19 verapamil (ISOPTIN) 2.5 mg/mL injection 1 0 12/03/2018 aspirin chewable tablet 81 mg 1 12/02/2018 dextrose 50 % solution 12.5 g 1 12/02/2018 glucagon injection 1 mg 1 12/02/2018 heparin 1,000 unit/mL inject ion 2,900 Units 1 12/02/2018 heparin 1,000 unit/mL inject ion 5,900 Units 1 12/02/2018 heparin in / NS 25,000 uni t/250 mL infusion 1 12/02/2018 nitroGLYCERIN (NITROSTAT) SL tablet 0.4 mg 2 12/02/2018 Diet Count Last Ordered Date First Orde red Date DISCHARGE DIET 3 12/03/2018 Nursing Count Last Ordered Date First Orde red Date ACTIVITY INSTRUCTIONS 1 12/03/2018 VTE PHARMACOLOGIC PROPHYLAXI S CURRENTLY ORDERED OR ON ALTERNATIVE THER 1 12/03/2018 WOUND CARE INSTRUCTIONS 2 12/03/2018 MEASURE WEIGHT 1 12/02/2018 Admission Count Last Ordered Date First Orde red Date STATUS: INPATIENT ACUTE ADMISSION 1 019 Transfer Count Last Ordered Date First Orde red Date NOTIFY PPS OF DISCHARGE COMPLETE 1 12/04/19 19 UR PATIENT STATUS CHANGE 1 12/02/2018 Discharge Count Last Ordered Date First Orde red Date DISCHARGE PATIENT 1 12/03/2018 Legal Count Last Ordered Date First Orde red Date MISCELLANEOUS DISCHARGE INSTRUCTIONS 2 11/17 documented in this encounter Care Teams Gasoline Dragline Operator Relationship Specialty Start Date End Date Denise Hooker APRN [address] [place] [address] PCP - General 09/13/18 documented as of this encounter
--- OUTSIDE RECORDS SUMMARY | 2024-03-04 00:27 | XMS_ITS | Encounter Summary ---
Author Organization [facility] Address [address] [place] [address] Care Team Providers Care Roll Cutting Operator Name Role Phone MorroDenise JENNIFER Primary Care Provider [phone] Encounter Details Date Type Department Care Team ([facility] Contact Info) Description 08/25/2019 Lab Requisition [facility] Pathology & Laboratory Medicine - [facility] [address] [place] [address] Unknown, Provider, Social History Tobacco Use Types Packs/Day Years [...] 08/08/2024 13:00 EST Office Visit [facility] Gastroenterology - [facility] [address] [place], [place] [id number] Kera Tatum PA-C [address] [facility], [address] [place] [address] documented as of this encounter Procedures Procedure Name Priority Date/Time Associated Diagnosis Comments OVA/PARASITE EXAM Routine 08/24/2019 6:15 EST documented in this encounter Results * OVA/PARASITE EXAM (08/24/2019 6:15 EST) Parasite No ova and parasites seen. 08/26/2019 11:31 EST [facility] Feces SPECIMEN FROM RECTUM / Unknown 08/24/2019 6:15 EST 08/25/2019 15:50 EST Narrative [facility] - 08/26/2019 11:31 EST (If Cryptosporidium, Cyclospora, or Microsporidium are suspected, specific tests must be requested.) Single negative specimen does not rule out the possibility of a parasitic infection. Provider Unknown MICROBIOLOGY - GENER AL ORDERABLES [facility] [address] [place] [address] documented in this encounter Visit Diagnoses Not on filedocumented in this encounter Care Teams Roll Cutting Operator Relationship Specialty Start Date End Date Denise Hooker APRN [address] [place], [place] [id number] PCP - General 09/13/18 documented as of this encounter
--- OUTSIDE RECORDS SUMMARY | 2024-03-04 00:27 | XMS_ITS | Encounter Summary ---
Author Organization [facility] Address [address] [place] [address] Care Team Providers Care Welfare Case Worker Name Role Phone Denise Hooker JENNIFER Primary Care Provider [phone] Encounter Details Date Type Department Care Team ([facility] st Contact Info) Description 08/25/2019 Orders Only [facility] Neurology - [place] [address] [place] [id number] eKn Bran MD [address] [place] [address], [address] [place] [address] Weakness (Primary Dx); Fasciculation Social History Tobacco Use Types Packs/Day Years Used Date Smoking Tobacco: Former Cigarettes 1 07/1973 - 05/1994 Smokeless Tobacco: Never Alcohol Use Standard Drinks/Week Comments Yes 0 (1 standard drink = 0.6 oz pur e alcohol) rare Interpersonal Safety Answer Date Record ed Physically [...] 08/08/2024 13:00 EST Office Visit [facility] Gastroenterology - [address] [id number] Kera Tatum PA-C [address] [place] [address], [address] [place] [address] documented as of this encounter Procedures Procedure Name Priority Date/Time Associated Diagnosis Comments TSH Routine 08/25/2019 10:32 EST Weakness Fasciculation documented in this encounter Results * T4 FREE (08/25/2019 10:32 EST) T4, Free 1.2 0.8 - 2.2 ng/dL 08/25/2019 12:20 EST [facility] Blood VENOUS BLOOD / Unknown Venipuncture / Unknown 08/25/2019 10:32 EST 08/25/2019 11:30 EST Ken Bran MD CHEMISTRY & BLOOD GAS ORDERABLES [facility] [address] [place] [address] * TSH (08/25/2019 10:32 EST) TSH 1.71 0.47 - 4.68 uIU/mL 08/25/2019 12:34 EST [facility] Blood VENOUS BLOOD / Unknown Venipuncture / Unknown 08/25/2019 10:32 EST 08/25/2019 11:30 EST Narrative [facility] - 08/25/2019 12:34 EST The results of this assay can be falsely lowered due to the consumption of Biotin. Ken Bran MD CHEMISTRY & BLOOD GAS ORDERABLES Performing Organization Address City/[facility]/ZIP Co de Phone Number [facility] [address] [place] [address] * CK (08/25/2019 10:32 EST) Pathologist [facility] CK 107 <=250 U/L 08/25/2019 12:01 EST [facility] Blood VENOUS BLOOD / Unknown Venipuncture / Unknown 08/25/2019 10:32 EST 08/25/2019 11:30 EST Ken Bran MD CHEMISTRY & BLOOD GAS ORDERABLES Performing Organization Address [facility] Co de Phone Number [facility] [address] [place] [address] * PARANEOPL AUTO ANTIBODY, SERUM (08/25/2019 10:32 EST) Pathologist [facility] Interpretive Comments SEE NOTE 09/12/2019 17:05 [facility] Comment: No informative autoantibodies were detected in the Paraneoplastic Evaluation. However, a negative result does not exclude neurological autoimmunity with or without associated neoplasia. Sensitivity and specificity of antibody testing are enhanced by testing both serum and CSF. LEISA-1, S Negative <1:240 titer 09/12/2019 17:05 EST [facility] Reflex Added None. 09/12/2019 17:05 EST [facility] Comment: ADDITIONAL INFORMATION This test was developed and its performance characteristics determined by [facility] in a manner consistent with CLIA requirements. This test has not been cleared or approved by the U.S. Food and Drug Administration. LEISA-2, S Negative <1:240 titer 09/12/2019 17:05 [facility] Comment: ADDITIONAL INFORMATION This test was developed and its performance characteristics determined by [facility] in a manner consistent with CLIA requirements. This test has not been cleared or approved by the U.S. Food and Drug Administration. LEISA-3, S Negative <1:240 titer 09/12/2019 17:05 [facility] Comment: ADDITIONAL INFORMATION This test was developed and its performance characteristics determined by [facility] in a manner consistent with CLIA requirements. This test has not been cleared or approved by the U.S. Food and Drug Administration. AGNA-1, S Negative <1:240 titer 09/12/2019 17:05 [facility] Comment: ADDITIONAL INFORMATION This test was developed and its performance characteristics determined by [facility] in a manner consistent with CLIA requirements. This test has not been cleared or approved by the U.S. Food and Drug Administration. WASTEWATER MANAGER-1, S Negative <1:240 titer 09/12/2019 17:05 [facility] Comment: ADDITIONAL INFORMATION This test was developed and its performance characteristics determined by [facility] in a manner consistent with CLIA requirements. This test has not been cleared or approved by the U.S. Food and Drug Administration. WASTEWATER MANAGER-2, S Negative <1:240 titer 09/12/2019 17:05 [facility] Comment: ADDITIONAL INFORMATION This test was developed and its performance characteristics determined by [facility] in a manner consistent with CLIA requirements. This test has not been cleared or approved by the U.S. Food and Drug Administration. WASTEWATER MANAGER-Tr, S Negative <1:240 titer 09/12/2019 17:05 [facility] Comment: ADDITIONAL INFORMATION This test was developed and its performance characteristics determined by [facility] in a manner consistent with CLIA requirements. This test has not been cleared or approved by the U.S. Food and Drug Administration. Amphiphysin Ab, S Negative <1:240 titer 09/12/2019 17:05 [facility] Comment: ADDITIONAL INFORMATION This test was developed and its performance characteristics determined by [facility] in a manner consistent with CLIA requirements. This test has not been cleared or approved by the U.S. Food and Drug Administration. CRMP-5-IgG, S Negative <1:240 titer 09/12/2019 17:05 [facility] Comment: ADDITIONAL INFORMATION This test was developed and its performance characteristics determined by [facility] in a manner consistent with CLIA requirements. This test has not been cleared or approved by the U.S. Food and Drug Administration. Striational (Striated Muscle) Ab, S Negative <1:120 titer 09/12/2019 17:05 [facility] Comment: ADDITIONAL INFORMATION This test was developed and its performance characteristics determined by [facility] in a manner consistent with CLIA requirements. This test has not been cleared or approved by the U.S. Food and Drug Administration. Test Performed by: [facility] - [address] [address] Peach Grower: Chon Carrera M.D. Ph.D.; [facility]# [id number] P/Q-Type Calcium Channel Ab 0.00 <=0.02 nmol/L 09/12/2019 17:05 [facility] Comment: ADDITIONAL INFORMATION This test was developed and its performance characteristics determined by [facility] in a manner consistent with CLIA requirements. This test has not been cleared or approved by the U.S. Food and Drug Administration. N-Type Calcium Channel Ab 0.00 <=0.03 nmol/L 09/12/2019 17:05 [facility] Comment: ADDITIONAL INFORMATION This test was developed and its performance characteristics determined by [facility] in a manner consistent with CLIA requirements. This test has not been cleared or approved by the U.S. Food and Drug Administration. AChR Ganglionic Neuronal Ab, S 0.00 <=0.02 nmol/L 09/12/2019 17:05 [facility] Comment: ADDITIONAL INFORMATION This test was developed and its performance characteristics determined by [facility] in a manner consistent with CLIA requirements. This test has not been cleared or approved by the U.S. Food and Drug Administration. Neuronal (V-G) K+ Channel Ab, S 0.00 <=0.02 nmol/L 09/12/2019 17:05 [facility] Comment: ADDITIONAL INFORMATION This test was developed and its performance characteristics determined by [facility] in a manner consistent with CLIA requirements. This test has not been cleared or approved by the U.S. Food and Drug Administration. Blood VENOUS BLOOD / Unknown Venipuncture / Unknown 08/25/2019 10:32 EST 08/25/2019 11:30 EST Ken Bran MD IMMUNOLOGY AND SE CONTRERAS ORDERABLES [facility] [address] [place] [address] documented in this encounter Visit Diagnoses Diagnosis Weakness- Primary Other malaise and fatigue Fasciculation Abnormal involuntary movements documented in this encounter Care Teams Welfare Case Worker Relationship Specialty Start Date End Date Denise Hooker APRN [address] [place] [address] PCP - General 09/13/18 documented as of this encounter
--- OUTSIDE RECORDS SUMMARY | 2024-03-04 00:27 | XMS_ITS | Encounter Summary ---
Author Organization [facility] Address [address] [place] [address] Care Team Providers Care Medication Tech Name Role Phone Denise Hooker JENNIFER Primary Care Provider [phone] Reason for Visit * Reason Comments Coronary Artery Disease Encounter Details Date Type Department Care Team (Latest Contact Info) Description 01/26/2020 11:50 EDT Office Visit [facility] Cardiology [place] [place] [address] Broderick Galloway MD [address] [place] [address] ASCVD (arteriosclerotic cardiovascular disease) (Primary Dx) Social History Tobacco Use [...] No 12/02/2018 documented as of this encounter Progress Notes * Broderick Galloway MD - 01/26/2020 1150 EDT Subjective: Patient is a 64 y.o. male who presents for follow-up of CAD. Patient reports a couple of episodes of chest pain requiring ntg, but overall doing well. [...] RCA; 2004 stents X2 ??? Diabetes mellitus ([facility]) oral agents ??? Diverticulitis ??? Hyperlipidemia ??? Hypertension ??? MS (myocardial infarction) ([facility]) 1992, 2003 ??? Recurrent infections rt foot 5th toe Patient Active Problem List Diagnosis Date Noted ??? Chest pain 12/03/2018 Priority: Medium ??? Depression 12/03/2018 Priority: Medium ??? Coronary atherosclerosis 09/07/2009 ??? Hyperlipidemia with target LDL less than 70 09/07/2009 ??? Hypertensive disorder 09/07/2009 ??? Diabetes mellitus ([facility]) 09/07/2009 Current Outpatient Medications Medication Sig [...] Info) Description 08/08/2024 13:00 EST Office Visit [facility] Gastroenterology - [address] [id number] Kera Tatum PA-C [address] [facility], [address] [place] [address] documented as of this encounter Visit Diagnoses Diagnosis ASCVD (arteriosclerotic cardiovascular disease)- Primary Unspecified cardiovascular disease documented in this encounter Care Teams Medication Tech Relationship Specialty Start Date End Date Denise Hooker APRN [address] [place] [address] PCP - General 09/13/18 documented as of this encounter
--- OUTSIDE RECORDS SUMMARY | 2024-03-04 00:27 | XMS_ITS | Encounter Summary ---
Author Organization [facility] Address [address] [place] [address] Care Team Providers Care Gasoline Tractor Operator Name Role Phone Denise Hooker APRN Primary Care Provider [phone] [phone] Reason for Referral * Referral (Routine) - Receiving Office to Obtain Authorization Specialty Diagnoses / Procedures Referred By Contact Referred To Contact Gastroenterology and Hepatology Diagnoses NAFLD (nonalcoholic fatty liver disease) Procedures VIBRATION CONTROLLED TRANSIENT ELASTOGRAPHY (VCTE) Letty Mackey MD [address] [place] [id number] [facility] [address] [place] [address] Referral ID Status Reason Start Date Expiration Date Visits Requested Visits Authorized [id number] Receiving Office to Obtain Authorization 07/26/2019 1 1 Reason for Visit * Reason Comments New Patient Visit Fatty Liver * Consult (Routine) - Closed Specialty Diagnoses / Procedures Referred By Contact Referred To Contact Gastroenterology and Hepatology Diagnoses Fatty liver Denise Hooker APRN [address] [place] [address] [facility] [address] [place] [address] Referral ID Status Reason Start Date Expiration Date Visits Re quested Visits Authorized [id number] Closed 1 1 Encounter Details Date Type Department Care Team (Late st Contact Info) Description 07/26/2019 15:00 EST Office Visit [facility] Gastroenterology - [address] [address] Letty Mackey MD [address] [place] [address] NAFLD (nonalcoholic fatty liver disease) (Primary Dx); Elevated LFTs; Diarrhea, unspecified type Social History Tobacco Use Types Packs/Day Years [...] Progress Notes * Tej Garcia MD - 07/26/[address] [facility] Gastroenterology and Hepatology Consult Note: Referring Provider: Reason for Consult: fatty liver HPI: Raul Trujillo is 63 y.o. here for evaluation of fatty liver disease. The patient was first diagnosed with fatty liver based on imaging 15-20 years ago. This imaging was prompted by elevated LFTs. Hewas referred to see GI when a RUQ ultrasound in March 2019 showed fatty liver. Denies any jaundice, no scleral icterus. No abdominal distension, no ascites. He reports intermittent swelling in his legs which he thinks is related to prolonged standing. No issues with confusion or encephalopathy.His weight has been relatively stable over the past year (230lb to 235lb over the past year objectively). The patient does not have a known history of liver disease and denies a family history of liver disease. Patient is a former smoker (2ppd for 25 years, quit smoking ~26 years ago). No IV or intranasal drug use. 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 History of DM: yes BMI: 34.21 Alcohol use: rare (twice a year) History of HLD: yes History of HTN: yes Liver imaging: yes (fatty liver on RUQ US in March 2019) History of liver biopsy: no Colonoscopy: 4-5 years ago ([facility]). Noted diverticula. Some polyps removed (patient unsure of histology). He was having some rectal bleeding at the time which prompted the colonoscopy. Patient reports many years of abdominal bloating, diarrhea, excessive flatulence, and burning non-radiating right-sided abdominal pain. Diarrhea is described as loose or watery stools (depending on the day) occurring 3-4 times a day. Diarrhea tends to be post-prandial (within 30-60 minutes of eating) and associated with a great deal of urgency. He has some blood with bowel movements after the 2ndor 3rd bowel movement. He finds symptoms are exacerbated by eggs and salads. Dairy does not seem toworsen his symptoms. No nocturnal bowel movements. He [...] RCA; 2004 stents X2 ??? Diabetes mellitus ([facility]) oral agents ??? Diverticulitis ??? Hyperlipidemia ??? Hypertension ??? RI (myocardial infarction) ([facility]) 1992, 2003 ??? Recurrent infections [...] in today's population and that it simply meansthat there is fat in the liver (simple steatosis), and that it is most often associated with features of the metabolic syndrome, specifically, diabetes, hypertension, hyperlipidemia, and obesity. In most people, there are no nursing home liver effects from underlying fatty liver, but in a small subsetof patients fat in the liver can lead to inflammation of the liver (steatohepatitis). Over time, this inflammation in the liver can lead to scarring [...] fatty liver at this time, and the current mainstay of treatment revolves around weight loss, as [...] HBV. In terms of GI symptoms, will checkfor celiac. Plan to rule out Giardia, as well, given risk factor of well water. Plan for follow up with me in 3 months, or sooner if needed. Letty Mackey MD Gastroenterology and Hepatology [facility] documented in this encounter Plan of Treatment Upcoming Encounters Date Type Department Care Team (Late st Contact Info) Description 08/08/2024 13:00 EST Office Visit [facility] Gastroenterology - [address] [address] Kera Tatum PA-C [address] [place] [address], [facility], [address] [place] [address] documented as of this encounter Results * VIBRATION CONTROLLED TRANSIENT ELASTOGRAPHY (VCTE) (08/31/2019 14:30 EST) Anatomical Region Laterality Modality Endoscopy Narrative 08/31/2019 14:30 EST Shaq Phan MD ? 08/31/2019 14:19 [facility] Hepatology Fibrosis Assessment Patient: Raul Trujillo : 1955 Torch Operator: ??Shaq Phan MD Referring Physician: Letty Godinez APRN, MD Disease diagnosis: fatty liver Procedure: Vibration Controlled Transient Elastography (VCTE) or Fibroscan [place] Protocol: Patient's identity, procedure and site were [...] Denise Hoskins APRN [address] / [facility] [address] Letty Mackey MD GI PROCEDURE ORDERAB LES * HEPATITIS A TOTAL ANTIBODY W REFLEX (07/26/2019 16:17 EST) Hepatitis A Antibody, Total Negative Negative 07/27/2019 14:54 EST [facility] Blood VENOUS BLOOD / Unknown Venipuncture / Unknown 07/26/2019 16:17 EST 07/26/2019 16:45 EST Narrative [facility] - 07/27/2019 14:54 EST The result of this assay can be falsely elevated (Positive) due to the consumption of Biotin. Letty Mackey MD CHEMISTRY & BLOOD GA S ORDERABLES Performing Organization Address [facility]/ZIP Co de Phone Number [facility] [address] [place] [address] * HEPATITIS B SURFACE ANTIBODY (07/26/2019 16:17 EST) Pathologist [facility] Hep B Surface Ab, Quantitative 203.5 See Note mIU/mL 07/27/2019 14:54 EST [facility] Comment: Reference Range for Hep B Surface Ab, Quant: Positive: >= 10.0 mIU/mL Negative: ??< 10.0 mIU/mL Patient is presumed to be immune to infection with Hepatitis B Virus. Hep B Surface Ab, Qualitative Positive See Note 07/27/2019 14:54 [facility] Comment: Reference Range for Hep B Surface Ab, Qual: Unvaccinated: ??Negative Vaccinated: ??Positive Blood VENOUS BLOOD / Unknown Venipuncture / Unknown 07/26/2019 16:17 EST 07/26/2019 16:45 EST Letty Mackey MD CHEMISTRY & BLOOD GA S ORDERABLES Performing Organization Address [facility]/ZIP Co de Phone Number [facility] [address] [place] [address] * COMPLETE BLOOD COUNT AND DIFFERENTIAL (07/26/2019 16:17 EST) Pathologist [facility] WBC 8.89 4.00 - 10.40 K/cmm 07/26/2019 17:00 EST [facility] RBC 5.12 4.36 - 5.78 M/cmm 07/26/2019 17:00 [facility] Hemoglobin 14.3 13.8 - 17.3 gm/dL 07/26/2019 17:00 [facility] HCT 43.3 39.5 - 50.2 % 07/26/2019 17:00 [facility] MCV 85 81 - 95 fl 07/26/2019 17:00 [facility] MCH 27.9 27.6 - 33.0 pg 07/26/2019 17:00 [facility] MCHC 33.0 32.8 - 36.4 gm/dL 07/26/2019 17:00 [facility] RDW-CV 13.3 <14.2 % 07/26/2019 17:00 [facility] RDW-SD 41.3 <46.0 fl 07/26/2019 17:00 [facility] PLT 289 141 - 377 K/cmm 07/26/2019 17:00 [facility] MPV 10.1 9.5 - 12.7 fl 07/26/2019 17:00 [facility] % Neutrophils 53.6 % 07/26/2019 17:00 [facility] % Lymphocytes 35.3 % 07/26/2019 17:00 [facility] % Monocytes 8.5 % 07/26/2019 17:00 [facility] % Eosinophils 1.7 % 07/26/2019 17:00 [facility] % Basophils 0.7 % 07/26/2019 17:00 [facility] % Immature Grans 0.2 % 07/26/19 20 17:00 [facility] Absolute Neutrophils 4.76 2.20 - 8.85 K/cmm 07/26/2019 17:00 [facility] Absolute Lymphocytes 3.14 1.09 - 3.30 K/cmm 07/26/2019 17:00 [facility] Absolute Monocytes 0.76 0.10 - 0.80 K/cmm 07/26/2019 17:00 [facility] Absolute Eosinophils 0.15 0.03 - 0.61 K/cmm 07/26/2019 17:00 [facility] ABS Basophils 0.06 0.01 - 0.11 K/cmm 07/26/2019 17:00 [facility] Absolute Immature Grans 0.02 0.00 - 0.06 K/cmm 07/26/2019 17:00 [facility] Type of Differential: Auto 07/26/2019 17:00 [facility] Blood VENOUS BLOOD / Unknown Venipuncture / Unknown 07/26/2019 16:17 EST 07/26/2019 16:45 EST Letty Mackey MD PACKAGES & DNA PROBE ORDERABLES [facility] [address] [place] [address] * (ABNORMAL) COMPREHENSIVE METABOLIC PANEL (CMP) (07/26/2019 16:17 EST) Sodium 139 136 - 145 mEq/L 07/26/2019 17:31 [facility] Potassium 4.8 3.5 - 5.0 mEq/L 07/26/2019 17:31 [facility] Chloride 99 96 - 110 mEq/L 07/26/2019 17:31 [facility] CO2 Total 29 22 - 32 mEq/L 07/26/2019 17:31 [facility] Glucose 135(H) 70 - 100 mg/dL 07/26/2019 17:31 [facility] BUN 17 10 - 26 mg/dL 07/26/2019 17:31 [facility] Creatinine 1.04 0.66 - 1.25 mg/dL 07/26/2019 17:31 [facility] eGFR 76 >60 mL/min/1.7 3m2 07/26/2019 17:31 [facility] Comment:eGFR calculated usin g CKD-EPI equation for non- Americans. Multiply eGFR by 1.16 for patients. Total Protein 7.4 6.3 - 8.2 g/dL 07/26/2019 17:31 [facility] Albumin 4.6 3.4 - 4.9 g/dL 07/26/2019 17:31 [facility] Alkaline Phosphatase 82 38 - 126 U/L 07/26/2019 17:31 [facility] AST 40 15 - 46 U/L 07/26/2019 17:31 [facility] ALT 55(H) <50 U/L 07/26/2019 17:31 [facility] Bilirubin, Total <0.5 <1.4 mg/dL 07/26/19 20 17:31 [facility] Calcium 9.7 8.5 - 10.5 mg/dL 07/26/2019 17:31 [facility] Calculated Calcium 9.2 8.5 - 10.5 mg/dL 07/26/2019 17:31 [facility] Blood VENOUS BLOOD / Unknown Venipuncture / Unknown 07/26/2019 16:17 EST 07/26/2019 16:45 EST Letty Mackey MD CHEMISTRY & BLOOD GA S ORDERABLES Performing Organization Address [facility]/[place] Co de Phone Number [facility] [address] [place] [address] * IGA (07/26/2019 16:17 EST) IgA 321 85 - 499 mg/dL 07/27/2019 10:20 [facility] Blood VENOUS BLOOD / Unknown Venipuncture / Unknown 07/26/2019 16:17 EST 07/26/2019 16:45 EST Letty Mackey MD CHEMISTRY & BLOOD GA S ORDERABLES Performing Organization Address [facility] de Phone Number [facility] [address] [place] [address] * TISSUE TRANSGLUTAMINASE AB (07/26/2019 16:17 EST) Tissue Transglutaminase Antibody IGA <1.2 <4.0 U/mL 07/27/2019 11:54 [facility] Comment: A negative result may be due to IgA deficiency and does not rule out celiac disease. ? Negative: ??<4.0 U/mL ? Weak Positive: ??4.0 - 10.0 U/mL ? Positive: ??>10.0 U/mL Results were obtained with the [employer] QUANTA Lite R h-tTG IgA JAVED assay on the [employer] DSX. Blood VENOUS BLOOD / Unknown Venipuncture / Unknown 07/26/2019 16:17 EST 07/26/2019 16:45 EST Letty Mackey MD IMMUNOLOGY AND SALEEM VICENTE ORDERABLES Performing Organization Address City/State/[place] Co de Phone Number [facility] [address] [place] [address] documented in this encounter Visit Diagnoses Diagnosis NAFLD (nonalcoholic fatty liver disease)- Primary Other chronic nonalcoholic liver disease Elevated LFTs Other abnormal blood chemistry Diarrhea, unspecified type documented in this encounter Care Teams Gasoline Tractor Operator Relationship Specialty Start Date End Date Denise Hooker APRN [address] [place] [address] PCP - General 09/13/18 documented as of this encounter
--- OUTSIDE RECORDS SUMMARY | 2024-03-04 00:27 | XMS_ITS | Encounter Summary ---
Author Organization [facility] Address [address] [place] [address] Care Team Providers Care Machine Or Machinery Mechanic Name Role Phone MorroDenise JENNIFER Primary Care Provider [phone] Encounter Details Date Type Department Care Team ([facility] Contact Info) Description 08/25/2019 Lab Requisition [facility] Pathology & Laboratory Medicine - [facility] [address] [place] [address] Unknown, Provider, Social History Tobacco Use Types [...] 08/08/2024 13:00 EST Office Visit [facility] Gastroenterology - [facility] [address] [place] [address] Kera Tatum PA-C [address] [facility], [address] [place] [address] documented as of this encounter Procedures Procedure Name Priority Date/Time Associated Diagnosis Comments FECAL BACTERIAL PATHOGENS BY PCR Routine 08/24/2019 6:15 EST documented in this encounter Results * FECAL BACTERIAL PATHOGENS BY PCR (08/24/2019 6:15 EST) Salmonella PCR Negative Negative 08/26/2019 12:28 EST [facility] Shigella/Enteroin vasive E. coli Negative Negative 08/26/2019 12:28 EST [facility] HN LAB CAMPYLOBACTER PCR Negative Negative 08/26/2019 12:28 EST [facility] Shiga Toxin PCR Negative Negative 0 12:28 EST [facility] Feces SPECIMEN FROM RECTUM / Unknown 08/24/2019 6:15 EST 08/25/2019 15:49 EST Provider Unknown MICROBIOLOGY - GENER AL ORDERABLES [facility] [address] [place] [address] documented in this encounter Visit Diagnoses Not on filedocumented in this encounter Care Teams Machine Or Machinery Mechanic Relationship Specialty Start Date End Date Denise Hooker APRN [address] [place], [place] [id number] PCP - General 09/13/18 documented as of this encounter
--- OUTSIDE RECORDS SUMMARY | 2024-03-04 00:27 | XMS_ITS | Encounter Summary ---
Author Organization [facility] Address [address] [place] [address] Care Team Providers Care Histology Technician Name Role Phone Denise Hooker JENNIFER Primary Care Provider [phone] Reason for Referral * Radiology Services (Routine) - New Request Specialty Diagnoses / Procedures Referred By Contac t Referred To Contact Diagnoses Lumbar stenosis with neurogenic claudication Fasciculations Procedures MR LUMBAR SPINE WO CONTRAST MR LUMBAR SPINE WO CONTRAST Ken Bran MD [address] [place] [phone] Referral ID Status Reason Start Date Expiration Date V isits Requested Visits Authorized [id number] New Request 05/19/2019 1 1 * Office Procedure (Routine) - Closed Specialty Diagnoses / Procedures Referred By Contac t Referred To Contact Neurology Diagnoses Fasciculations Polyneuropathy Procedures EMG/NERVE CONDUCTION STUDY Ken Bran MD [address] [place] [phone] [facility]usc [facility] Clin Neurophys [address] [place] [address] Referral ID Status Reason Start Date Expiration Date Visits Re quested Visits Authorized [id number] Closed 05/19/2019 1 1 Reason for Visit * Reason Comments New Patient Visit * Referral (Routine) - Closed Specialty Diagnoses / Procedures Referred By Claire jacques Referred To Contact Neurology Diagnoses Muscle twitch Denise Hooker APRN [address] [place] [address] Ken Bran MD [address] [place] [phone] Referral ID Status Reason Start Date Expiration Date Visits Re quested Visits Authorized [id number] Closed 1 1 Encounter Details Date Type Department Care Team (Late st Contact Info) Description 05/19/2019 13:00 EDT Office Visit [facility] Neurology - [address] [address] Ken Bran MD [address] [place] [phone] Fasciculations (Primary Dx); Polyneuropathy; Lumbar stenosis with neurogenic claudication Social History Tobacco Use Types Packs/Day Years [...] No 12/02/2018 documented as of this encounter Ordered Prescriptions Prescription Sig Dispensed Refills Start Date End Da te LORazepam (ATIVAN) 2 mg tablet 2mg 30 minutes prior to MRI. 1 Tab 05/19/2019 03/22/2020 documented in this encounter Progress Notes * Ken Bran MD - 05/19/2019 1300 EDT This office note has been dictated. documented in this encounter Consult Notes * Ken Bran MD - 05/19/2019 0000 EDT NEUROMUSCULAR DIVISION [facility] NEUROLOGY NEUROMUSCULAR CONSULTATION - 05/19/2019 Denise Hooker [address] [phone] Dear Nurse Practitioner Morro: Thank you for [...] baseline shortness of breath with exertion, which has been attributed to his previous cardiac history. In addition to the symptoms of muscle twitching, he does experience back pain, which is more chronic. He notices that the back pain worsens ifhe stands for 15 to 30 minutes or goes for a walk in the howe or rides his tractor. During these times when back pain is worse, he often notices stiffening of the muscles of his legs and lower back.If he rests this seems to improve. He does not have [...] Depression. Social history: The patient works in [employer]. He is . He enjoys spending time in [place] and has plans to retire in the [...] are normal and symmetric. Palate raised evenly. Tongue protrudes midline with normal strength. No evidence of tongue fasciculations or atrophy. Motor exam: Normal tone and bulk of his bilateral upper and lower extremities. Negative pronator drift, normal tapping and orbiting. He does have visible mild fasciculations in bilateral calf musclesnot appreciated in any other muscles today. Formal [...] brachioradialis, knee jerks, 1+ bilateral ankle jerks. Toesdowngoing. Coordination: [id number] is normal. Gait: Normal casual gait, able [...] diabetic neuropathy. By history, the patient is d escribing symptoms that could be consistent with lumbar claudication and he is experiencing the fasciculations in his calf muscles bilaterally, which are innervated by the S1 nerve root, often a siteof compression with disease in the lumbosacral spine. The differential for these fasciculations given his neurological examination today is more likely to rest with a benign fasciculation syndrome, lumbosacral stenosis, peripheral neuropathy, and SSRI medications rather than motor neuron disease. In order to further evaluate the patient, I am sending him for an MRI of the lumbosacral spine and having him come back for an EMG nerve conduction study. EMG will allow us to evaluate for radiculopathy, neuropathy and motor nerve. For now, I do not recommend any interventions and recommend the patient continue his regular activities. We will have the MRI done locally and have him come back for an EMG with me when I can go over the results on the day of the study. Thank you for allowing me to participate in the care of your patient. I will plan to see him back in the EMG lab in the near future. Please do not hesitate to call with any questions or concerns. Sincerely, Ken Bran MD Power Transformer Assembler of Neurology Neurology Attending Physician ABPN Board Certified, Neurology and Neuromuscular Medicine ABCAROLYN Board Certified, EMG - Ken Bran MD an Dictation ID: [id number] cc: Denise Hooker APRN documented in this encounter Plan of Treatment Upcoming Encounters Date Type Department Care Team (Late st Contact Info) Description 08/08/2024 13:00 EST Office Visit [facility] Gastroenterology - [address] [address] Kera Tatum PA-C [address] [facility], [facility], [address] [place] [phone] Scheduled Orders Name Type Priority Associated Diagnoses Orde r Schedule EMG/NERVE CONDUCTION STUDY Procedures Routine Fasciculations Polyneuropathy Ordered: 05/19/2019 MR LUMBAR SPINE WO CONTRAST Imaging Routine Lumbar stenosis with neurogenic claudication Fasciculations Ordered: 05/19/2019 documented as of this encounter Visit Diagnoses Diagnosis Fasciculations- Primary Abnormal involuntary movements Polyneuropathy Unspecified hereditary and idiopathic peripheral neuropathy Lumbar stenosis with neurogenic claudication Spinal stenosis, lumbar region, with neurogenic claudication documented in this encounter Historical Medications * This list may reflect changes made after this encounter. Medication Sig Dispensed Refills Start Date End Date dapagliflozin 5 mg tablet Take 5 mg by mouth daily. added in this encounter Care Teams Histology Technician Relationship Specialty Start Date End Date Denise Hooker APRN [address] [place] [address] PCP - General 09/13/18 documented as of this encounter
--- OUTSIDE RECORDS SUMMARY | 2024-03-04 00:27 | XMS_ITS | Encounter Summary ---
Author Organization [facility] Address [address] [place] [address] Care Team Providers Care Vehicle Service Attendant Name Role Phone Denise Hooker JENNIFER Primary Care Provider [phone] Reason for Visit * Reason Onset Date Comments Results 09/02/2019 Encounter Details Date Type Department Care Team ([facility] Contact Info) Description 09/02/2019 Telephone [facility] Gastroenterology - [facility] [address] [place], [place] [address] Letty Mackey MD [address] [place] [phone] Results Social History Tobacco Use Types [...] fibrosis. We discussed the implications of this findings,in particular, the risk of developing hepatocellular carcinoma in the setting of advanced fibrosis.We discussed the role of imaging for HCC screening every 6-12 months in the setting of being F3. Wediscussed the continued importance of diet, exercise, and weight loss, as well. The patient has noted ongoing abdominal pain- was started on PPI by his PCP, planning on making an appointment to see them, as well. Suggested he get H. Pylori testing done, if not already done. Celiac testing done at time of initial consult was negative. Asked him to keep me posted. The patient has follow up to see me in three months- asked him to call if he wanted to get seen sooner. Letty Mackey MD Gastroenterology and Hepatology [facility] documented in this encounter Plan of Treatment Upcoming Encounters Date Type Department Care Team (Late st Contact Info) Description 08/08/2024 13:00 EST Office Visit [facility] Gastroenterology - [address] [address] Kera Tatum PA-C 111 [facility], [facility], [address] [place] [phone] documented as of this encounter Visit Diagnoses Not on filedocumented in this encounter Care Teams Vehicle Service Attendant Relationship Specialty Start Date End Date Denise Hooker APRN [address] [place] [address] PCP - General 09/13/18 documented as of this encounter
--- OUTSIDE RECORDS SUMMARY | 2024-03-04 00:27 | XMS_ITS | Encounter Summary ---
Author Organization [facility] Address [address] [place] [address] Care Team Providers Care Medical Center Director Name Role Phone Denise Hooker JENNIFER Primary Care Provider [phone] Reason for Visit * Reason Comments Coronary Artery Disease 1 YR Encounter Details Date Type Department Care Team (Latest Contact Info) Description 09/14/2018 10:30 EST Office Visit [facility] Cardiology - [address] [place] [address] Broderick Galloway MD [address] [place] [phone] Atherosclerosis of seneca coronary artery of seneca heart without angina pectoris (Primary Dx) Social [...] Progress Notes * Broderick Galloway MD - 09/14/2018 1030 EST [...] RCA; 2004 stents X2 ??? Diabetes mellitus ([facility]) oral agents ??? Diverticulitis ??? Hyperlipidemia ??? Hypertension ??? [place] (myocardial infarction) ([facility]) 1992, 2003 ??? Recurrent infections rt foot 5th toe Patient Active Problem List Diagnosis Date Noted ??? NSTEMI (non-ST elevated myocardial infarction) ([facility]) 02/10/2016 Priority: Medium ??? Coronary atherosclerosis 09/07/2009 ??? Hyperlipidemia with target LDL less than 70 09/07/2009 ??? Hypertensive disorder 09/07/2009 ??? Diabetes mellitus ([facility]) 09/07/2009 Current Outpatient Medications Medication Sig [...] Info) Description 08/08/2024 13:00 EST Office Visit [facility] Gastroenterology - [address] [id number] Kera Tatum PA-C [address] [place] [address], [facility], [address] [place] [address] documented as of this encounter Visit Diagnoses Diagnosis Atherosclerosis of seneca coronary artery of seneca heart without angina pectoris- Primary documented in this encounter Historical Medications * This list may reflect changes made after this encounter. Medication Sig Dispensed Refills Start Date End Date traZODone (DESYREL) 50 mg tablet Take 1 Tablet by mouth daily. exenatide microspheres 2 mg/0.65 mL pen injector Inject 2 mg into the skin every 7 days. dapagliflozin (FARXIGA) 5 mg tabletIndications:FARXIGA Take 5 mg by mouth daily. 12/02/2018 added in this encounter Care Teams Medical Center Director Relationship Specialty Start Date End Date Denise Hooker APRN [address] [place] [address] PCP - General 09/13/18 documented as of this encounter
--- OUTSIDE RECORDS SUMMARY | 2024-03-04 00:27 | XMS_ITS | Encounter Summary ---
Author Organization [facility] Address [address] [place] [address] Care Team Providers Care Filter Bed Placer Name Role Phone Denise Hooker APRN Primary Care Provider [phone] Reason for Visit * (Routine) - Receiving Office to Obtain Authorization Specialty Diagnoses / Procedures Referred By Claire jacques Referred To Contact Procedures MR OUTSIDE IMAGES NEURO Unknown, Provider, Referral ID Status Reason Start Date Expiration Date Visits Requested Visits Authorized [id number] Receiving Office to Obtain Authorization 06/27/2019 1 1 Encounter Details Date Type Department Care Team ([facility] Contact Info) Description 06/23/2019 - 06/23/2019 23:59 EST Hospital Encounter [facility] Radiology - [place] [address] [place], [place] [phone] Social History Tobacco Use Types Packs/Day Years [...] 05/19/2019 03/22/2020 documented as of this encounter Plan of Treatment Upcoming Encounters Date Type Department Care Team (Late st Contact Info) Description 08/08/2024 13:00 EST Office Visit [facility] Gastroenterology - [address] [address] Kera Tatum PA-C 111 [facility], [facility], [address] [place] [phone] documented as of this encounter Procedures Procedure Name Priority Date/Time Associated Diagnosis Comments MR OUTSIDE IMAGES NEURO Routine 06/27/2019 18:47 EST documented in this encounter Results * MR OUTSIDE IMAGES NEURO (06/27/2019 18:47 EST) Narrative APOLLO - 06/27/2019 18:47 EST This is a non-reportable exam. Him Only No Signature Required IMG OTHER IMAGING ORDERABLES APOLLO documented in this encounter Visit Diagnoses Not on filedocumented in this encounter Care Teams Filter Bed Placer Relationship Specialty Start Date End Date Denise Hooker APRN [address] [place] [address] PCP - General 09/13/18 documented as of this encounter
--- OUTSIDE RECORDS SUMMARY | 2024-03-04 00:27 | XMS_ITS | Encounter Summary ---
Author Organization [facility] Address [address] [place] [address] Care Team Providers Care Navigation Teacher Name Role Phone Gregoria Nicholas MD Primary Care Provider [phone] Encounter Details Date Type Department Care Team (Latest Contact Info) Description 03/27/2017 13:34 EDT - 03/27/2017 23:59 EDT Hospital Encounter [address] [address] Unknown, Provider, Discharge Disposition: Home or Self Care Social [...] Yes 09/09/2016 documented as of this encounter Medications at Time of Discharge Medication Sig Dispensed Refills Start Date End Date amlodipine (NORVASC) 10 mg tablet Take 1 Tab by mouth daily. 30 Tab 11 09/10/2009 aspirin chewable 81 mg tablet Take 1 Tab by mouth daily. 30 Tab 11 02/12/2016 ERGOCALCIFEROL, VITAMIN D2, (VITAMIN D ORAL) Take by mouth daily. insulin glargine (LANTUS) 100 unit/mL injection Inject 30 Units into the skin 2 times daily. lisinopril (PRINIVIL, ZESTRIL) 5 mg tablet Take 1 Tablet by mouth daily. METOPROLOL SUCCINATE ORAL Take 150 mg by mouth daily. Takes 3-50 mg. Tablets daily nitroGLYCERIN (NITROSTAT) 0.[address] 1 Tablet under the tongue as needed for Chest Pain. rosuvastatin (CRESTOR) 40 mg tablet Take 1 Tablet by mouth daily. AMITRIPTYLINE HCL (AMITRIPTYLINE ORAL) Take 20 mg by mouth at bedtime. Takes 2-10 mg tablets at bedtime 12/02/2018 clopidogrel (PLAVIX) 75 mg tablet Take 1 Tab by mouth daily. 30 Tab 11 02/12/2016 09/10/2017 liraglutide (VICTOZA) 0.6 mg/0.1 mL (18 mg/3 mL) injectable pen Inject 1.8 mg into the skin daily. 12/03/2018 metformin (GLUCOPHAGE) 1,000 mg tabletIndications:type 2 diabetes mellitus Take by mouth 2 times daily with meals. Restart Metformin Sat Take as previously prescribed Metformin 1000 mg in the morning and Metformin 500 mg each evening, Indications: TYPE 2 DIABETES MELLITUS 30 Tab 0 09/10/2009 12/02/2018 pramipexole (MIRAPEX) 0.125 mg tablet Take 0.125 mg by mouth. Reported on 09/09/2016 12/02/2018 documented as of this encounter Discharge Disposition Disposition Code Departure Means Destination Home or Self Group Home documented in this encounter Plan of Treatment Upcoming Encounters Date Type Department Care Team (Late st Contact Info) Description 08/08/2024 13:00 EST Office Visit [facility] Gastroenterology - [address] [address] Kera Tatum PA-C [address] [facility], [address] [place] [phone] documented as of this encounter Visit Diagnoses Not on filedocumented in this encounter Care Teams Navigation Teacher Relationship Specialty Start Date End Date Gregoria Nicholas MD [address] [place] [phone] PCP - General 10/27/12 09/12/18 documented as of this encounter
--- OUTSIDE RECORDS SUMMARY | 2024-03-04 00:28 | XMS_ITS | Encounter Summary ---
Author Organization [facility] Address [address] [place] [address] Care Team Providers Care Section Hand Name Role Phone Gregoria Nicholas MD Primary Care Provider [phone] Encounter Details Date Type Department Care Team (Late st Contact Info) Description 04/02/2015 Results Only Imaging [facility] Cardiology - [address] [place], [place] [id number] Broderick Galloway MD [address] [place] [address] Social History Tobacco Use Types Packs/Day Years [...] Functional Status Response Date of Assess ment Because of a physical, menta l, or emotional condition, does this person have difficulty doing errands alone such as visiting a doctor's office or shopping? No 03/27/2015 Cognitive Status Response Date of Assessm ent Because of a physical, menta l, or emotional condition, does this person have serious difficulty concentrating, remembering, or making decisions? Yes 03/27/2015 documented as of this encounter Plan of Treatment Upcoming Encounters Date Type Department Care Team (Late st Contact Info) Description 08/08/2024 13:00 EST Office Visit [facility] Gastroenterology - [facility] [address] [place] [address] Kera Tatum PA-C [address] [facility], [facility], [address] [place] [address] documented as of this encounter Procedures Procedure Name Priority Date/Time Associated Diagnosis Comments STRESS ECHOCARDIOGRAM 04/03/2015 10:22 EDT documented in this encounter Results * STRESS ECHOCARDIOGRAM (04/03/2015 10:22 EDT) Anatomical Region Laterality Modality Other 04/03/2015 10:2 2 EDT Narrative 04/03/2015 12:49 EDT *Interpreting Group:* *[facility]* [address] [place] [address] ?? Date of study: 04/03/2015 ?? Stress Echocardiography Gary protocol 2D, limited spectral Doppler, and color Doppler *STUDY CONCLUSIONS* Impressions: ??Negative for ischemia after submaximal exercise. Patient did not achieve target heart rate (82% of MPHR). Summary: 1. Procedure narrative: Treadmill exercise testing was performed using the Gary ?? protocol. The patient exercised for 8 min 59 sec, to protocol stage 3, to a ?? maximal work rate of 10.2mets. Exercise was terminated due to fatigue. 2. Stress: Maximal heart rate during stress was 131bpm (82% of maximal predicted ?? heart rate). The maximal predicted heart rate was 160bpm.The target heart ?? rate was not achieved. The heart rate response to stress was blunted. 3. Baseline: LV size was normal. LV global systolic function was normal. The ?? estimated LV ejection fraction was 60%. Normal wall motion; no LV regional ?? wall motion abnormalities. 4. Immediate post stress: LV size was reduced appropriately. LV global systolic ?? function was appropriately augmented from baseline. No evidence for new LV ?? regional wall motion abnormalities. 5. Stress ECG conclusions: The stress ECG was consistent with myocardial ?? ischemia. *PATIENT PRESENTATION* Height: ? 176.5cm (69.5in ) S/D Pressure: 144 / 70 Weight: ? 109.1kg (240lb ) BSA: ?2.35m^2 Test start time: ??10:05 AM. Test stop time: ??10:54 AM. ATTENDING ?Broderick Galloway MD ORDERING ? Broderick Galloway MD HEALTH TECHNICAL WRITER ? Amy Pate FORESTRY AIDE ??Amy Juarez AREA SALES MANAGER ??Farzana Guzman ?? [facility], Stress *PROCEDURE DATA* Procedure information: ??Dr. Elier Kang supervised and was readily available during the procedure. This study was interpreted by [facility]. Pertinent images and digital data are archived for permanent storage and are available for subsequent review. ??Study status: Routine. Stress echocardiography. ??2D, limited spectral Doppler, and color Doppler. ??Consent: ??The risks, benefits, and alternatives to the procedure were explained to the patient and consent was verbally obtained. ??Barriers to education: ??No barriers to education identified. Initial setup. A baseline ECG was recorded. Surface ECG leads and manual cuff blood pressure measurements were monitored. Treadmill exercise testing was performed using the Gary protocol. The patient exercised for 8 min 59 sec, to protocol stage 3, to a maximal work rate of 10.2mets. Exercise was terminated due to fatigue. A Transthoracic stress echocardiogram was performed. Images were captured at baseline and peak exercise. Images were obtained using a Renee IE33 8 cardiac ultrasound machine. Image quality was adequate. The study was technically limited due to body habitus. A 22 gauge IV was inserted by Amy Pate RN. 4ml of Pre-image Intravenous contrast (Definity) was administered by Farzana Guzman [facility] to enhance delineation of left ventricular endocardial borders. Prior to administration at least two (2) contiguous segments of the left ventricular border were not visualized. A total of 1 vial(s) of Pre imaging Definity was used.4ml of Post image Intravenous contrast (Definity) was administered by Amy Pate RN to enhance delineation of left ventricular endocardial borders. Prior to administration at least two (2) contiguous segments of the left ventricular border were not visualized. A total of 1 vial(s) of Definity was used. A 22 gauge IV was removed by Amy Pate RN. ??Study completion: ??The patient tolerated the procedure well. There were no complications. *INDICATIONS AND HISTORY* Indications: ?? 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 History: ?PMH: ??59yo male here for preop evaluation. No reported CP or dyspnea. Pain free at this time. ??PMH: ?? Myocardial infarction. ??Risk factors: Former tobacco use. Hypertension. Diabetes mellitus. Obese. Dyslipidemia. Medications: ??MIS inhibitors. Aspirin. Beta blockers. Calcium channel blockers. Insulin. Oral diabetic agent. Plavix. Statin therapy. Labs, prior tests, procedures, and surgery: Stress electrocardiography (2009). ? Normal. Catheterization (remote). ?There was a stenosis which was treated with a stent. Catheterization (2009). ?There was a stenosis in the right coronary artery which was treated with a stent. There was a stenosis in the left anterior descending coronary artery which was treated with a stent. *CARDIAC ANATOMY* Stress protocol: + +---+ + +--------+ Stage ? HR BP (mmHg) ST/T ? Symptoms + +---+ + +--------+ Baseline supine ? 66 144/70 ? None ? (95) ? + +---+ + +--------+ Baseline standing ? 83 142/70 ? (94) ? + +---+ + +--------+ Stage 1; 1.7mph, ? 101 152/68 ? 10degrees; 3 min ? (96) ? + +---+ + +--------+ Stage 2; 2.5mph, ? 115 162/66 ? 12degrees; 3 min ? (98) ? + +---+ + +--------+ Stage 3; 3.4mph, ? 131 170/64 ? Horizontal depression, ? Fatigue 14degrees; 3 min ? (99) ? 1.5-2.0 mm in II, III and ? aVF, V3, V4, V5, V6 ? + +---+ + +--------+ Peak stress ? 131 ? + +---+ + +--------+ Immediate post stress ? 131 ? + +---+ + +--------+ Recovery; 1 min ? 109 ? + +---+ + +--------+ 3 min ? 96 164/60 ? (95) ? + +---+ + +--------+ Recovery; 6 min ? 81 134/66 ? (89) ? + +---+ + +--------+ Recovery; 7 min ? 79 ? Return to baseline ? + +---+ + +--------+ * Stress results: ?? Maximal heart rate during stress was 131bpm (82% of maximal predicted heart rate). The maximal predicted heart rate was 160bpm.The target heart rate was not achieved. The heart rate response to stress was blunted. There was a normal resting blood pressure with an appropriate response to stress. The rate-pressure product for the peak heart rate and blood pressure was 42659yt Hg/min. ??The patient experienced no chest pain during stress. Functional capacity was average. Stress ECG: ?? The stress ECG was consistent with myocardial ischemia. Baseline: - LV size was normal. - LV global systolic function was normal. The estimated LV ejection fraction ??was 60%. - Normal wall motion; no LV regional wall motion abnormalities. Wall motion score: 1.00. Immediate post stress: - LV size was reduced appropriately. - LV global systolic function was appropriately augmented from baseline. - No evidence for new LV regional wall motion abnormalities. I have personally reviewed the images and have reviewed and edited the reported findings. Electronically signed by Hardeep Silva MD 04/03/2015 12:49 Procedure Note Hardeep Silva MD - 04/03/2015 *Interpreting Group:* *[facility]* [address] [place] [address] Date of study: 04/03/2015 Stress Echocardiography Gary protocol 2D, limited spectral Doppler, and color Doppler *STUDY CONCLUSIONS* Impressions: Negative for ischemia after submaximal exercise. Patient didnot achieve target heart rate (82% of MPHR). Summary: 1. Procedure narrative: Treadmill exercise testing was performed using theBruce protocol. The patient exercised for 8 min 59 sec, to protocol stage 3,to a maximal work rate of 10.2mets. Exercise was terminated due to fatigue. 2. Stress: Maximal heart rate during stress was 131bpm (82% of maximalpredicted heart rate). The maximal predicted heart rate was 160bpm.The targetheart rate was not achieved. The heart rate response to stress was blunted. 3. Baseline: LV size was normal. LV global systolic function was normal.The estimated LV ejection fraction was 60%. Normal wall motion; no LVregional wall motion abnormalities. 4. Immediate post stress: LV size was reduced appropriately. LV globalsystolic function was appropriately augmented from baseline. No evidence for newLV regional wall motion abnormalities. 5. Stress ECG conclusions: The stress ECG was consistent with myocardial ischemia. *PATIENT PRESENTATION* Height: 176.5cm (69.5in ) S/D Pressure: 144 / 70 Weight: 109.1kg (240lb ) BSA: 2.35m^2 Test start time: 10:05 AM. Test stop time: 10:54 AM. ATTENDING Broderick Galloway MD ORDERING Broderick Galloway MD HEALTH TECHNICAL WRITER Amy Pate FORESTRY AIDE Amy Juarez AREA SALES MANAGER Farzana Guzman PERFORMING [facility], Stress *PROCEDURE DATA* Procedure information: Dr. Elier Kang supervised and was readilyavailable during the procedure. This study was interpreted by [facility]. Pertinent images and digital data are archivedfor permanent storage and are available for subsequent review. Study status: Routine. Stress echocardiography. 2D, limited spectral Doppler, and color Doppler. Consent: The risks, benefits, and alternatives to the procedurewere explained to the patient and consent was verbally obtained. Barriers to education: No barriers to education identified. Initial setup. A baselineECG was recorded. Surface ECG leads and manual cuff blood pressuremeasurements were monitored. Treadmill exercise testing was performed using the Bruceprotocol. The patient exercised for 8 min 59 sec, to protocol stage 3, to a maximalwork rate of 10.2mets. Exercise was terminated due to fatigue. A Transthoracicstress echocardiogram was performed. Images were captured at baseline and peak exercise. Images were obtained using a Renee IE33 8 cardiac ultrasound machine. Image quality was adequate. The study was technically limited dueto body habitus. A 22 gauge IV was inserted by Amy Pate RN. 4ml ofPre-image Intravenous contrast (Definity) was administered by Farzana Guzman [facility] toenhance delineation of left ventricular endocardial borders. Prior toadministration at least two (2) contiguous segments of the left ventricular border were not visualized. A total of 1 vial(s) of Pre imaging Definity was used.4ml ofPost image Intravenous contrast (Definity) was administered by Amy Alexander to enhance delineation of left ventricular endocardial borders. Prior to administration at least two (2) contiguous segments of the leftventricular border were not visualized. A total of 1 vial(s) of Definity was used. A22 gauge IV was removed by Amy Pate RN. Study completion: The patient tolerated the procedure well. There were no complications. 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 History: PMH: 59yo male here for preop evaluation. No reported CP or dyspnea. Pain free at this time. PMH: Myocardial infarction. Riskfactors: Former tobacco use. Hypertension. Diabetes mellitus. Obese. Dyslipidemia. Medications: MIS inhibitors. Aspirin. Beta blockers. Calcium channelblockers. Insulin. Oral diabetic agent. Plavix. Statin therapy. Labs, prior tests, procedures, and surgery: Stress electrocardiography (2009). Normal. Catheterization (). There was a stenosis which was treated with a stent. Catheterization (2009). There was a stenosis in the right coronaryartery which was treated with a stent. There was a stenosis in the left anterior descending coronary artery which was treated with a stent. *CARDIAC ANATOMY* Stress protocol: + +---+ + +--------+ Stage HR BP (mmHg) ST/T Symptoms + +---+ + +--------+ Baseline supine 66 144/70 None (95) + +---+ + +--------+ Baseline standing 83 142/70 (94) + +---+ + +--------+ Stage 1; 1.7mph, 101 152/68 10degrees; 3 min (96) + +---+ + +--------+ Stage 2; 2.5mph, 115 162/66 12degrees; 3 min (98) + +---+ + +--------+ Stage 3; 3.4mph, 131 170/64 Horizontal depression, Fatigue 14degrees; 3 min (99) 1.5-2.0 mm in II, III and aVF, V3, V4, V5, V6 + +---+ + +--------+ Peak stress 131 + +---+ + +--------+ Immediate post stress 131 + +---+ + +--------+ Recovery; 1 min 109 + +---+ + +--------+ 3 min 96 164/60 (95) + +---+ + +--------+ Recovery; 6 min 81 134/66 (89) + +---+ + +--------+ Recovery; 7 min 79 Return to baseline + +---+ + +--------+ * Stress results: Maximal heart rate during stress was 131bpm (82% ofmaximal predicted heart rate). The maximal predicted heart rate was 160bpm.Thetarget heart rate was not achieved. The heart rate response to stress wasblunted. There was a normal resting blood pressure with an appropriate response to stress. The rate-pressure product for the peak heart rate and bloodpressure was 65310pe Hg/min. The patient experienced no chest pain during stress. Functional capacity was average. Stress ECG: The stress ECG was consistent with myocardial ischemia. Baseline: - LV size was normal. - LV global systolic function was normal. The estimated LV ejectionfraction was 60%. - Normal wall motion; no LV regional wall motion abnormalities. Wall motion score: 1.00. Immediate post stress: - LV size was reduced appropriately. - LV global systolic function was appropriately augmented from baseline. - No evidence for new LV regional wall motion abnormalities. I have personally reviewed the images and have reviewed and edited thereported findings. Electronically signed by Hardeep Silva MD 04/03/2015 12:49 Broderikc Galloway MD CARDIAC ECHO ORDERAB LES documented in this encounter Visit Diagnoses Not on filedocumented in this encounter Care Teams Section Hand Relationship Specialty Start Date End Date Gregoria Nicholas MD [address] [place] [phone] PCP - General 10/27/12 09/12/18 documented as of this encounter
--- OUTSIDE RECORDS SUMMARY | 2024-03-04 00:28 | XMS_ITS | Encounter Summary ---
Author Organization [facility] Address [address] [place] [address] Care Team Providers Care Sales Support Rep Name Role Phone Joaquín Carpenter MD Primary Care Provider [phone] Gregoria Nicholas MD Primary Care Provider [phone] Encounter Details Date Type Department Care Team (Late Contact Info) Description 08/30/2012 Orders Only [facility] Cardiology - [facility] [address] [place] [address] Broderick Galloway MD [address] [place] [address] Social History Tobacco Use Types Packs/Day [...] Functional Status Cognitive Status Response Date of Assessm ent Because of a physical, menta l, or emotional condition, do you have serious difficulty concentrating, remembering, or making decisions? (5 years old or older) Yes 09/09/2009 documented as of this encounter Plan of Treatment Upcoming Encounters Date Type Department Care Team (Late Contact Info) Description 08/08/2024 13:00 EST Office Visit [facility] Gastroenterology - [address] [id number] Kera Tatum PA-C [address] [place] [address], [facility] [address] [place] [address] documented as of this encounter Procedures Procedure Name Priority Date/Time Associated Diagnosis Comments LIPID RX PROFILE (BUN, CREATININE, GLUCOSE, AST, ALT, URIC ACID, CK, CHOLESTEROL, TRIG, HDL, LDL) Routine 08/18/2012 LIPID RX PROFILE (BUN, CREATININE, GLUCOSE, AST, ALT, URIC ACID, CK, CHOLESTEROL, TRIG, HDL, LDL) Routine 06/16/2012 documented in this encounter Results * LIPID RX PROFILE (INCLUDES BUN, CREATININE, GLUCOSE, AST, ALT, URIC ACID, CK, CHOLESTEROL, TRIGLYCERIDES, HDL, LDL) (08/18/2012) BUN, External Creatinine, External GFR, Calculated, External Glucose, Serum, External AST, External 44 ALT, External 89 Uric Acid, External CK, External Cholesterol, External 144 Triglycerides, External 103 HDL, External 42 LDL, External 79 Chol/HDL Ratio, External Fasting?, External y Blood specimen (specimen) Historical Provider CHEMISTRY & BLOOD GAS ORDERABLES * LIPID RX PROFILE (INCLUDES BUN, CREATININE, GLUCOSE, AST, ALT, URIC ACID, CK, CHOLESTEROL, TRIGLYCERIDES, HDL, LDL) (06/16/2012) BUN, External Creatinine, External GFR, Calculated, External Glucose, Serum, External AST, External 39 ALT, External 71 Uric Acid, External CK, External Cholesterol, External 249 Triglycerides, External 171 HDL, External 40 LDL, External 179 Chol/HDL Ratio, External Fasting?, External y Blood specimen (specimen) Historical Provider CHEMISTRY & BLOOD GAS ORDERABLES documented in this encounter Visit Diagnoses Not on filedocumented in this encounter Care Teams Sales Support Rep Relationship Specialty Start Date End Date Joaquín Carpenter MD [address] [place] [id number] PCP - General 09/04/09 10/26/12 Gregoria Nicholas MD [address] [place] [address] PCP - General 10/27/12 09/12/18 documented as of this encounter
--- OUTSIDE RECORDS SUMMARY | 2024-03-04 00:28 | XMS_ITS | Encounter Summary ---
Author Organization [facility] Address [address] [place] [address] Care Team Providers Care Dial Screw Assembler Name Role Phone Gregoria Nicholas MD Primary Care Provider [phone] Reason for Visit * Reason Comments Cardiac Testing * Cardiology (Routine) - Specialty Report Received Specialty Diagnoses / Procedures Referred By Claire jacques Referred To Contact Diagnoses Coronary atherosclerosis of unspecified type of vessel, kasaan or graft Procedures TREADMILL STRESS ECHO Broderick Galloway MD [address] [place] [address] Referral ID Status Reason Start Date Expiration Date V isits Requested Visits Authorized [id number] Specialty Report Received 03/27/2015 1 1 Encounter Details Date Type Department Care Team (Late st Contact Info) Description 04/03/2015 10:30 EDT Procedure visit [facility] Cardiology - [place] [address] [place] [address] Broderick Galloway MD [address] [place] [address] Echo, Stress Social History Tobacco Use Types Packs/Day Years [...] Yes 03/27/2015 documented as of this encounter Discharge Diagnoses Diagnosis 414.00 CORONARY ATHEROSCLER UNSPEC VESSEL[ICD-9-CM] documented in this encounter Plan of Treatment Upcoming Encounters Date Type Department Care Team (Late st Contact Info) Description 08/08/2024 13:00 EST Office Visit [facility] Gastroenterology - [facility] [address] [place], [place] [phone] Kera Tatum PA-C 111 [facility], [facility], [address] [place] [phone] documented as of this encounter Procedures Procedure Name Priority Date/Time Associated Diagnosis Comments STRESS TEST - SCANNED 04/06/2015 12:30 EDT documented in this encounter Results * STRESS TEST - SCANNED (04/06/2015 12:30 EDT) Anatomical Region Laterality Modality Other 04/06/2015 12:3 0 EDT Scan 2 Adjunct Mathematics Instructor IMG OTHER IMAGING O RDERABLES documented in this encounter Visit Diagnoses Not on filedocumented in this encounter Care Teams Dial Screw Assembler Relationship Specialty Start Date End Date Gregoria Nicholas MD [address] [place] [address] PCP - General 10/27/12 09/12/18 documented as of this encounter
--- OUTSIDE RECORDS SUMMARY | 2024-03-04 00:28 | XMS_ITS | Encounter Summary ---
Author Organization [facility] Address [address] [place] [address] Care Team Providers Care Cheese Production Supervisor Name Role Phone Gregoria Nicholas MD Primary Care Provider [phone] Reason for Visit * Reason Onset Date Comments Discuss Test Results 04/09/2015 Encounter Details Date Type Department Care Team ([facility] Contact Info) Description 04/09/2015 Telephone [facility] Cardiology - [address] [place] [address] Broderick Galloway MD [address] [place] [address] Discuss Test Results Social History Tobacco Use Types Packs/Day [...] Yes 03/27/2015 documented as of this encounter Miscellaneous Notes * Telephone Encounter - Kizzy Rincon RN - 04/10/2015 1320 EDT Stress ecco looks fine Broderick Galloway MD Left message on personal phone Stress echo looks fine. Pt can call the office if have has any questions. * Telephone Encounter - Kizzy Rincon RN - 04/10/2015 1037 EDT Please review stress test results Thanks * Telephone Encounter - Arabella Torres - 04/09/2015 1538 EDT Reason for Call: Discuss Test Results Summary/Symptoms: Pt looking for 04/03 stress test results. Arabella Torres 04/09/2015 15:38 documented in this encounter Plan of Treatment Upcoming Encounters Date Type Department Care Team (Late st Contact Info) Description 08/08/2024 13:00 EST Office Visit [facility] Gastroenterology - [address] [address] Kera Tatum PA-C 111 [facility], [address] [place] [phone] documented as of this encounter Visit Diagnoses Not on filedocumented in this encounter Care Teams Cheese Production Supervisor Relationship Specialty Start Date End Date Gregoria Nicholas MD [address] [place] [address] PCP - General 10/27/12 09/12/18 documented as of this encounter
--- OUTSIDE RECORDS SUMMARY | 2024-03-04 00:28 | XMS_ITS | Encounter Summary ---
Author Organization [facility] Address [address] [place] [address] Care Team Providers Care Teacher Asst Name Role Phone Gregoria Nicholas MD Primary Care Provider [phone] Reason for Visit * Reason Comments Coronary Artery Disease Encounter Details Date Type Department Care Team (Latest Contact Info) Description 10/28/2012 10:00 EDT Office Visit [facility] - [address] [place] [address] Broderick Galloway MD [address] [place] [address] Coronary atherosclerosis of unspecified type of vessel, modoc or graft (Primary Dx) Social History Tobacco Use Types [...] Yes 09/09/2009 documented as of this encounter Progress Notes * Broderick Galloway MD - 10/28/2012 0952 EDT Subjective: Patient is a 56 y.o. male who presents for follow-up of cad. Patient reports recent shoulder surgery. He denies chest pain on exertion and dyspnea on exertion. He describes his symptoms as improved. He has been compliant with his medications. Medications side effects include none Past Medical History Diagnosis Date ??? UT (myocardial infarction) 1992, 2003 ??? CAD (coronary [...] or interrupt this medication withour discussing with coil former Start this medication in one month. First take Prasugrel 10 mg daily for one month. Start Plavix the day after stopping Prasugrel. 30 Tab 11 ??? [...] at bedtime. Takes 2-10 mg tablets atbedtime Review of Systems A ten point ROS [...] EST Office Visit [facility] - [facility] [place] [address] [place] [address] Kera Tatum PA-C [address] [facility], [address] [place] [phone] documented as of this encounter Visit Diagnoses Diagnosis Coronary atherosclerosis of unspecified type of vessel, modoc or graft- Primary documented in this encounter Historical Medications * This list may reflect changes made after this encounter. Medication Sig Dispensed Refills Start Date End Date simvastatin (ZOCOR) 80 mg tablet Take 80 mg by mouth at bedtime. 11/01/2013 added in this encounter Care Teams Teacher Asst Relationship Specialty Start Date End Date Gregoria Nicholas MD [address] [place] [address] PCP - General 10/27/12 09/12/18 documented as of this encounter
--- OUTSIDE RECORDS SUMMARY | 2024-03-04 00:28 | XMS_ITS | Encounter Summary ---
Author Organization [facility] Address [address] [place] [address] Care Team Providers Care Project Controls Specialist Name Role Phone Joaquín Carpenter MD Primary Care Provider [phone] Encounter Details Date Type Department Care Team (Late Contact Info) Description 02/04/2012 Results Only [facility] [address] [address] Gregoria Nicholas MD [address] [place] [id number] Social History Tobacco Use Types Packs/Day Years Used Date Smoking Tobacco: Former Cigarettes Smokeless Tobacco: Never Comments:quit 17 yrs ago Alcohol Use Standard Drinks/Week [...] Info) Description 08/08/2024 13:00 EST Office Visit [facility] - [address] [place] [address] [place], [place] [phone] Kera Tatum PA-C [address] [facility] [address] [place] [address] documented as of this encounter Procedures Procedure Name Priority Date/Time Associated Diagnosis Comments SURGICAL PATHOLOGY Routine 02/04/2012 0:00 EDT documented in this encounter Results * SURGICAL PATHOLOGY (02/04/2012 0:00 EDT) Pathology Report: SURGICAL PATHOLOGY REPORT Reports generated via electronic interface contain original data; however they are lacking the format of the original report. Caution should be taken when reading/interpreti ng unformatted reports. Name: ? RAUL BATISTA ? Accession #: ? [id number] ? : ? 1955 (Age: 56) ??M ? Collect Date: ? 02/04/2012 ? Location: ? [facility] ? Receive Date: ? 02/05/2012 ? Provider: GREGORIA NICHOLAS MD Copy to: JOAQUÍN CARPENTER MD ? Final Pathologic Diagnosis: ? Skin of back, mid, punch biopsy: - Seborrheic keratosis, pigmented. Microscopic Description: ? The stratum corneum is thickened by compact and basketweave orthokeratosis with formation of horn pseudocysts. ??The epidermis is acanthotic with formation of broad and anastomosing trabeculae. ??The trabeculae are composed of basaloid keratinocytes with round uniform nuclei. ??The keratinocytes have a variable amount of melanin pigment. ??(Dr. Velazquez)/[facility] Document reviewed and electronically signed by: ELVIS VELAZQUEZ MD Report ??Date: 02/06/2012 15:43 By the signature above, the attending physician certifies that he/she has personally conducted a gross and/or microscopic examination of the described specimens and rendered or confirmed the above diagnosis. Specimen(s) Received: ? Mid back 2.0 mm punch bx Clinical History: ? Pigmented nevi Gross Description: ? Received in formalin labelled Raul Batista and 2.0 mm bx mid back is an irregular punch biopsy specimen of rock and brown-black skin which measures 0.3 x 0.2 cm in diameter, excised to a depth of 0.3 cm. ??The specimen is submitted intact in one cassette. ??(Carmen Chawla/natty End of Report [facility] 02/04/2012 02/05/2012 21: 11 EDT Gregoria Nicholas MD PATHOLOGY ORDERABLES Performing Organization Address City/State/[facility] Co de Phone Number [facility] [address] [place] [address] documented in this encounter Visit Diagnoses Not on filedocumented in this encounter Care Teams Project Controls Specialist Relationship Specialty Start Date End Date Joaquín Carpenter MD [address] [place] [id number] PCP - General 09/04/09 10/26/12 documented as of this encounter
--- OUTSIDE RECORDS SUMMARY | 2024-03-04 00:28 | XMS_ITS | Encounter Summary ---
Author Organization [facility] Address [address] [place] [address] Care Team Providers Care Product Strategy Director Name Role Phone Gregoria Nicholas MD Primary Care Provider [phone] Reason for Referral * Follow Up (Routine/Next Available) - Closed Specialty Diagnoses / Procedures Referred By Contac t Referred To Contact Cardiology Diagnoses NSTEMI (non-ST elevated myocardial infarction) ([facility]) Rylie Lozada MD [address] [place] [address] [place] [address] Rylie Lozada MD [address] [place] [address] [place] [address] Referral ID Status Reason Start Date Expiration Date V isits Requested Visits Authorized [id number] Closed Specialty Services Required 02/12/2016 1 1 Question Answer Reason for Request: cad Expected Discharge Date (Inpatient Only): 02/12/2016 * Consult (Routine) - Closed Specialty Diagnoses / Procedures Referred By Contac t Referred To Contact Diagnoses NSTEMI (non-ST elevated myocardial infarction) ([facility]) Krish Solis PA-C [address] [facility] [address] [place] [address] Referral ID Status Reason Start Date Expiration Date V isits Requested Visits Authorized [id number] Closed Specialty Services Required 02/11/2016 1 1 Question Answer Reason for Request: cad Expected Discharge Date (Inpatient Only): 02/12/2016 Practice Site (External Referral Only): [facility] * Follow Up (Routine) - Closed Specialty Diagnoses / Procedures Referred By Contjessie t Referred To Contact Diagnoses NSTEMI (non-ST elevated myocardial infarction) ([facility]) Krish Solis PA-C [address] [address] Referral ID Status Reason Start Date Expiration Date V isits Requested Visits Authorized [id number] Closed Continuity of Care 02/11/2016 1 1 Question Answer Reason for Request: cad Expected Discharge Date (Inpatient Only): 02/12/2016 Encounter Details Date Type Department Care Team (Late st Contact Info) Description 02/10/2016 23:20 EDT - 02/12/2016 14:48 EDT Hospital Encounter [facility] Cardiac/Telemetry Unit [address] [place] [address] Pete Whyte MD [address] [address] Lorri Jones MD [address] [place] [address] Jaxson Schmitt MD [address] [place] [id number] NSTEMI (non-ST elevated myocardial infarction) ([facility]) (Primary Dx) Discharge Disposition: Home or Self Care Social [...] EDT Temperature 36.8 ??C (98.2 ??F) 02/12/2016 0922 EDT Respiratory Rate 18 02/12/2016 0922 EDT Oxygen Saturation 99% 02/12/2016 0922 EDT Inhaled Oxygen Concentration - - Weight [...] shopping? (15 years old or older) No 02/10/2016 Cognitive Status Response Date of Assessm ent Because of a physical, menta l, or emotional condition, do you have serious difficulty concentrating, remembering, or making decisions? (5 years old or older) No 02/10/2016 documented as of this encounter Discharge Summaries * Opal Vaz MD - 02/11/2016 2132 EDT Cardiology Discharge Summary Primary Care Provider: Gregoria Nicholas Attending Physician: Jaxson Schmitt MD Admit Date: 02/10/2016 Discharge Date: 02/12/16 Disposition: Home or self care Problems and [...] No resolved problems to display. Principal Procedure: [facility] Date: 02/11/16 Diagnostic Cardiac Study Results Left main: Free of angiographically significant disease. ?? Left anterior descending: Mid severe in-stent restenosis, 80%. OCT catheter could not cross prior to stenting. Leftcircumflex:?? OM with distal 60%. Right coronary artery: Dominant. Minor luminal irregularities. ?? Left Ventriculography and Hemodynamic Results LVEDP 10-12 There was no gradient across the aortic valve. Left ventricular function: normal Ejection fraction: 55% Regional wall motion: normal Post-Procedure Diagnostic Conclusion:?? PCI is indicated. Interventional Procedure: Using standard technique, the mid left anterior descending coronary artery was stented using a Synergy 2.5x20mm MARY. OCT [...] significant family and personal cardiac history including DE x2 (1992, 2004, s/p stents x8), HTN, HLD, and T2DM transferred from [facility] for NSTEMI, after presenting there with acute chest pain which occurred while riding his bike and found to have elevated troponin. Initial EKG at [facility] did not show EKG changes, but EKG at [facility] showed new 1st degree AV block. An [...] was discontinued. Follow ups were arranged with (patient's template inspector), PCP (Dr. Nicholas), and cardiac rehabilitation. Patient [...] 09/10/2009 Discharge Follow Up Appointments Scheduled with [facility] Appointments Outside of [facility] We Will Schedule Follow-up appointments and procedures Amb Consult/Follow Up Cardiac Rehabilitation Reason for Request: cad Expected Discharge Date (Inpatient Only): 02/12/2016 Practice Site (External Referral Only): [facility] Authorizing Provider: Krish Solis PA Amb [...] 2016 @ 9:05 am. The telephone number [phone] Studies We Will Schedule Appointments We Recommend but have not been Scheduled Opal Vaz MD 02/12/2016 22:45 documented in this encounter Discharge Instructions * Appointments* Evelyn Peña - 02/12/2016 13:37 EDT Please see your Primary Care Physician Dr Nicholas on February 20, 2016 @ 9:05 am. The telephone number [phone] documented in this encounter Medications at Time [...] 09/09/2016 12/02/2018 documented as of this encounter Ordered Prescriptions Prescription Sig Dispensed Refills Start Date End Da te aspirin chewable 81 mg tablet Take 1 Tab by mouth daily. 30 Tab 11 02/12/2016 clopidogrel (PLAVIX) 75 mg tablet Take 1 Tab by mouth daily. 30 Tab 11 02/12/2016 09/10/2017 clopidogrel (PLAVIX) 75 mg tablet Take 1 Tab by mouth daily. 30 Tab 11 02/12/2016 02/12/2016 aspirin chewable 81 mg tablet Take 1 Tab by mouth daily. 30 Tab 11 02/12/2016 02/12/2016 documented in this encounter Discharge Disposition Disposition Code Departure Means Destination Home or Self Care documented in this encounter Progress Notes * Colette Sánchez RN - 02/13/2016 0759 EDT CM Discharge Note: D/C home on 02/11 without home health services. Shanae Sánchez RN #[id number] * Gilad Roman RN - 02/12/2016 1010 EDT Cardiology Research Consent Process Note Protocol: OZ (Affordability and Real-world Antiplatelet Treatment Effectiveness After Myocardial Infarction Study) [facility] # [id number] Blender / Cook: Nash Herron MD The Affordability and Real-world [...] HIPAA was signed by the patient and myselfon 02/12/2016. A copy of the signed consent and HIPAA were placed in patients chart and a copy was given to the patient along with an activated OZ pharmacy voucher to cover his cost of clopidogrel for the next12 months. * Colton Walls - 02/12/2016 0921 EDT Instrument Maker And Repairer Note: I saw and examined Claudia Batista after today. Patient denies chest pain, shortness of breath, palpitation, fever, chills, cough, headache, numbness, tingling, weakness, at rest and with ambulation. Vitals: BP 121/72 mmHg Pulse 83 Temp(Src) 37.1 ??C (98.8 ??F) (Tympanic) Resp 18 Ht 176.5 cm (69.49) Wt 112.583 kg (248 lb 3.2 oz) [...] Lozada in 4 weeks Colton Walls M.D. * Rosemarie Birmingham RT - 02/11/2016 2301 EDT Respiratory Nocturnal BIPAP/CPAP Heart Rate: 70 BPM, Resp: 18, SpO2: 98 %, Breath Sounds Bilateral: Clear Patient was placed on Non-Invasive Ventilation Device Type: Home Unit, Settings were preset on homeunit. Pt tolerating well RT CAPO 02/11/2016 * Opal Vaz MD - 02/11/2016 1608 EDT Cardiology Post Procedure Check: S: [facility] today. Patient denies chest pain, palpitations, shortness [...] current care. Opal Vaz MD 02/11/2016 16:08 * Krish Solis PA - 02/11/2016 1509 EDT Plavix 75mg daily without interruption x 1 year and Aspirin 81 mg daily lifetime reviewed with patient and the patient verbalizes understanding. Cardiac rehab reviewed with patient and the patient iswilling to attend. Referral sent and written material given to patient. Follow up has been requested with Nilesh here. * Colette Sánchez RN - 02/11/2016 1027 EDT Initial Case Management/Social Work Assessment and Discharge Plan/Readmission Risk Assessment Reason for Admission: Claudia Batista is a 60 y.o. male, former smoker, with a significant family and personal cardiac history including DE x2 (1993, 2005, s/p stents x8), HTN, HLD, and T2DM transferred from [facility] for NSTEMI, after presenting there with chest pain which occurred while ridinghis bike.?? Patient Contact Information: Kayla Batista, spouse, LIVING ARRANGEMENTS AND ACCESSIBILITY ISSUES: Patient lives in [place] with his spouse What in home social supports are available to the patient? as above ADVANCED DIRECTIVES, POA &/or COLST IN PLACE: No CULTURAL, CHRISTIANITY and/or LANGUAGE factors affecting health care/discharge planning: [...] Primary Care Provider: Gregoria Nicholas Pharmacy: Other: [facility] today POST HOSPITAL TRANSITION PLAN: Plan d/c home without services when medically stable Colette Sánchez RN 02/11/2016 10:27 * Raheel Rodriguez MD - 02/11/2016 0216 EDT Claudia Batista is a 60 y.o. male with CAD (multiple stents, last interventions in 08/2009 with MARY to LAD and RCA), HTN, HLD, DM who is transferred from [facility] with NSTEMI. While biking this morning, had precordial chest pain radiating to L jaw, neck and L arm happened twice and relieved with nitro. At [facility] had a non significant ECG, however troponin [...] 60%, no RWMA on peak stress Last [facility] 09/07 and 09/10/2009: LM:Nl LAD:50% mid, 60% [...] and have answered the patient's (or responsible libertarian's) questions. To the best of my knowledge, [...] minimum of 48 hours after the procedure * Mildred Holland, RT - 02/11/2016 0001 EDT Respiratory Consult/Progress [...] clear/diminished breath sounds. No home resp medications. Wearscpap @ noc with full mask with no O2 bleed in. Machine ready and patient will place self on when ready for bed. Response/Results Weaning and Toleration of treatments; RT to follow for Cpap wear. MildredRT Ashia 02/11/2016 documented in this encounter H&P Notes * Clarita Lynch MD - 02/11/2016 0001 EDT Cardiology Admission H&P Admit Date: 02/10/2016 PCP: Gregoria Nicholas Bird Sitter: Goyo Lozada MD CC: chest pain HPI: Claudia Batista is a 60 y.o. male, former smoker, with a significant cardiac history including DE x2 (1992, 2004, s/p stents x8), HTN, HLD, and T2DM transferred from [facility] for NSTEMI. Patient was biking at approximately 10 am the morning of admission, when he had acute onset of sharp, right sided chest pain which radiated to his neck, jaw, and shoulder which was similar to prior episodes, but was not associated with nausea, SOB or diaphoresis. He took nitro x1 which resolved hispain, though had recurrence of chest pain after resuming physical activity. He called EMS after that chest pain was not relieved with a second nitro. On arrival to [facility] he was HD stable, with labs [...] hours in the ED at OSH. He additionally denies fevers, chills, nausea, vomiting, SOB, recent illnesses [...] on 02/05/16. No medication changes were made atthat visit. 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 DM and CAD in brother. All men in family have heart disease and or heart attacks. Social: Former smoker, up to 2 ppd (quit ). Occasional EtOH, denies illicit drug use. ,lives with . bikes regularly several miles. SPIRAL BINDER medications: Amitriptyline 20 mg qhs Amlodipine 10 [...] significant family and personal cardiac history including DE x2 (1992, 2004, s/p stents x8), HTN, HLD, and T2DM transferred from [facility] for NSTEMI, after presenting there with [...] metoprolol XL 150 mg daily - decrease SPIRAL BINDER ASA to 81 mg daily - ECHO tomorrow - start plavix 75 mg daily - Monitor on telemetry - NPO after midnight for [facility] tomorrow - Check FLP and HbA1c Hypertension: Goal BP <130/80, currently well controlled. - continue SPIRAL BINDER lisinopril 5 mg daily - continue SPIRAL BINDER amlodipine 10 mg daily Hyperlipidemia / CAD: - decrease SPIRAL BINDER rouvastatin to 20 mg daily - FLP [...] gtt Disposition: Pending clinical course Clarita Lynch, DO PGY-2 [phone] 02/11/2016 0:37 Associated attestation - Jaxson Schmitt MD - 02/11/2016 1320 EDT Attestation: I saw and examined the patient with the resident/fellow 02/11/2016. I agree with the findings and plan of care documented in the resident's/fellow's note. Typical, extertional chest pain,borderline biomarkers; for [facility] today. Jaxson Schmitt MD 02/11/2016 13:20 documented in this encounter Procedure Notes * Nash Herron Jr., MD - 02/11/2016 1201 [...] artery Procedure: He was brought to [facility] for the [...] 80%. OCT catheter could not cross prior to stenting. Leftcircumflex: OM with distal 60%. Right coronary artery: Dominant. Minor luminal irregularities. Left Ventriculography and Hemodynamic Results LVEDP 10-12 There was no gradient across the aortic valve. Left ventricular function: normal Ejection fraction: 55% Regional wall motion: normal Post-Procedure Diagnostic Conclusion: PCI is indicated. Interventional Procedure: Using standard technique, the mid left anterior descending coronary artery was stented using a Synergy 2.5x20mm MARY. OCT [...] ofthese results and treatment plans as well. Post Procedure Follow Up: Patient to follow up with Dr. Lozada in 4 weeks Post Interventional Conclusion/Physician Disposition: (check one main category) Inpatient procedure, continue inpatient status (no procedural complication required) Nash Herron MD PagerNumber: [phone] 02/11/2016 12:01 documented in this encounter Miscellaneous Notes * Plan of Care - Cheli Kulkarni RN - 02/12/2016 1429 EDT Problem: Daily Care Plan Goals Goal: Care Plan Documentation Outcome: Completed Date Met: 02/12/16 02/12/16 0100 Care Plan Focus Area of Focus Circulatory [...] further questions, and states he understands discharge instructions. Signed copy of AVS received. Pt left with . * Plan of Care - Marci Valiente RN - 02/12/2016 0242 EDT Problem: Daily Care Plan Goals Goal: Care Plan Documentation Outcome: Ongoing 02/12/16 0100 Care Plan Focus Area of Focus Circulatory Status Goal This Shift vss D- assumed care of pt at 1530. Pt s/p LHC with 1 MARY to mid LAD via right radial artery. Pt VSS [facility] c/d/i. HR NSR 60-80's. A- assessment as documented. Pt with no complaints of pain and up ambulating with no chest pain. R- Pt resting in bed. No signs/symptoms of distress. CTM * Plan of Care - Starr Esteves RN - [...] any pain. A: Pt is NPO for [facility] today. Pt ambulating hallway several times independently. R: Pt denies any needs. Will continue to monitor. 1200 Pt returned from director labor standards, right radial approach. 1 MARY to mid LAD * Plan of Care - Ken Patton RN - 02/11/2016 0000 EDT Problem: Daily Care Plan Goals Goal: Care Plan Documentation Outcome: Ongoing 02/10/16 4746 Care Plan Focus Area of Focus Circulatory Status Goal This Shift VSS, CP free D: Patient arrived to [place] [address]. Vital signs noted, and tele applied. Patient in NSR with heartrate in 70s. Patient denies chest pain, SOB, and discomfort. A: Assessment as documented in flow sheet. Admission database completed. Patient orientated to room, equipment, and care plan. R: Continue to monitor and document per protocol. documented in this encounter Plan of Treatment Upcoming Encounters Date Type Department Care Team (Late st Contact Info) Description 08/08/2024 13:00 EST Office Visit [facility] Gastroenterology - [address] [address] Kera Tatum PA-C [address] [place] [address], [facility], [address] [place] [address] Scheduled Referrals Name Type Priority Associated Diagnoses Order Schedule AMB CONS/FOLLOW UP PRIMARY CARE PHYSICIAN Outpatient Referral Routine NSTEMI (non-ST elevated myocardial infarction) ([facility]) Ordered: 02/11/2016 AMB CONS/FOLLOW UP CARDIAC REHABILITATION Outpatient Referral Routine NSTEMI (non-ST elevated myocardial infarction) ([facility]) Ordered: 02/11/2016 AMB CONS/FOLLOW UP CARDIOLOGY Outpatient Referral Routine NSTEMI (non-ST elevated myocardial infarction) ([facility]) Ordered: 02/12/2016 documented as of this encounter Procedures Procedure Name Priority Date/Time Associated Diagnosis Comments INVASIVE CARDIOLOGY REPORT-SCANNED 02/18/2016 12:37 EDT ECG REPORT - SCANNED 02/18/2016 12:37 EDT ECG REPORT - SCANNED 02/18/2016 12:37 EDT ECG REPORT - SCANNED 02/15/2016 14:10 EDT ECG REPORT - SCANNED 02/13/2016 8:43 EDT GLUCOSE, GLUCOMETER Routine 02/12/2016 1 1:24 EDT GLUCOSE, GLUCOMETER Routine 02/12/2016 7 :07 EDT COMPLETE BLOOD COUNT Routine 02/12/2016 5:49 EDT BUN Routine 02/12/2016 5:49 EDT CREATININE Routine 02/12/2016 5:49 EDT ELECTROLYTES Routine 02/12/2016 5:49 EDT GLUCOSE, GLUCOMETER Routine 02/11/2016 2 0:24 EDT GLUCOSE, GLUCOMETER Routine 02/11/2016 1 7:08 EDT GLUCOSE, GLUCOMETER Routine 02/11/2016 1 2:41 EDT EKG 12-LEAD Routine 02/11/2016 12:39 EDT LEFT HEART CATH Routine 02/11/2016 11:13 EDT ECHOCARDIOGRAM LIMITED Routine 6 10:29 EDT TROPONIN I Routine 02/11/2016 7:44 EDT HEPARIN LEVEL - UNFRACTIONATED HEPARIN STAT 02/11/2016 7:44 EDT GLUCOSE, GLUCOMETER Routine 02/11/2016 6 :07 EDT HEPARIN LEVEL - UNFRACTIONATED HEPARIN STAT 02/11/2016 5:33 EDT COMPLETE BLOOD COUNT Routine 02/11/2016 5:33 EDT BUN Routine 02/11/2016 5:33 EDT MAGNESIUM Routine 02/11/2016 5:33 EDT CREATININE Routine 02/11/2016 5:33 EDT LIPID PROFILE (INCLUDES CHOLESTEROL, TRIGLYCERIDES, HDL, LDL) Routine 02/11/2016 5:33 EDT ELECTROLYTES Routine 02/11/2016 5:33 EDT HEPARIN LEVEL - UNFRACTIONATED HEPARIN STAT 02/11/2016 1:39 EDT TROPONIN I Routine 02/10/2016 23:41 EDT PROTIME Routine 02/10/2016 23:41 EDT COMPLETE BLOOD COUNT Routine 02/10/2016 23:41 EDT BUN Routine 02/10/2016 23:41 EDT MAGNESIUM Routine 02/10/2016 23:41 EDT HEMOGLOBIN A1C Routine 02/10/2016 23:41 EDT CREATININE Routine 02/10/2016 23:41 EDT ELECTROLYTES Routine 02/10/2016 23:41 EDT GLUCOSE, GLUCOMETER Routine 02/10/2016 2 3:31 EDT EKG 12-LEAD Routine 02/10/2016 23:28 EDT documented in this encounter Results * INVASIVE CARDIOLOGY REPORT-SCANNED (02/18/2016 12:37 EDT) 02/18/2016 12:3 7 EDT Scan 2 Basketball Commentator PROCEDURE/MINOR MERCEDES GICAL ORDERABLES * ECG REPORT - SCANNED (02/18/2016 12:37 EDT) 02/18/2016 12:3 7 EDT Scan 2 Basketball Commentator PROCEDURE/MINOR MERCEDES GICAL ORDERABLES * ECG REPORT - SCANNED (02/18/2016 12:37 EDT) 02/18/2016 12:3 7 EDT Scan 2 Basketball Commentator PROCEDURE/MINOR MERCEDES GICAL ORDERABLES * ECG REPORT - SCANNED (02/15/2016 14:10 EDT) 02/15/2016 14:1 0 EDT Scan 2 Basketball Commentator PROCEDURE/MINOR MERCEDES GICAL ORDERABLES * ECG REPORT - SCANNED (02/13/2016 8:43 EDT) 02/13/2016 8:43 EDT Scan 2 Basketball Commentator PROCEDURE/MINOR MERCEDES GICAL ORDERABLES * (ABNORMAL) GLUCOSE, GLUCOMETER (02/12/2016 11:24 EDT) Glucose, Fingerstick 125(H) 70 - 100 mg/dl 02/12/2016 11:[address] [facility] Hadoop Engineer ID [id number] 02/12/2016 11:[address] [facility] Comment:[facility] BLOOD SPECIMEN / Unknown 02/12/2016 11:24 EDT 02/12/2016 11:31 EDT Jaxson Schmitt MD CHEMISTRY & BLOOD GAS ORDERABLES [facility] [address] [place] [address] * (ABNORMAL) GLUCOSE, GLUCOMETER (02/12/2016 7:07 EDT) Glucose, Fingerstick 209(H) 70 - 100 mg/dl 02/12/2016 7:[address] [facility] Hadoop Engineer ID [id number] 02/12/2016 7:[address] [facility] Comment:Test Performed by [facility] BLOOD SPECIMEN / Unknown 02/12/2016 7:07 EDT 02/12/2016 7:16 EDT Jaxson Schmitt MD CHEMISTRY & BLOOD GAS ORDERABLES Performing Organization Address City/[facility] Co de Phone Number [facility] [address] [place] [address] * CREATININE (02/12/2016 5:49 EDT) Creatinine 0.79 0.66 - 1.25 mg/dl 02/12/2016 6:[address] [facility] GFR, Calculated 97 >60 ml/min/1.7 3m2 02/12/2016 6:[address] [facility] Comment: eGFR calculated using CKD-EPI equation for non Americans. Multiply eGFR by 1.16 for Americans. Blood specimen (specimen) BLOOD SPECIMEN / Unknown 02/12/2016 5:49 EDT 02/12/2016 6:09 EDT Lorri Jones MD CHEMISTRY & BLO OD GAS ORDERABLES Performing Organization Address [facility]/ZIP Co de Phone Number [facility] [address] [place] [address] * BUN (02/12/2016 5:49 EDT) BUN 12 10 - 26 mg/dl 02/12/2016 6:[address] [facility] Blood specimen (specimen) BLOOD SPECIMEN / Unknown 02/12/2016 5:49 EDT 02/12/2016 6:09 EDT Lorri Jones MD CHEMISTRY & BLO OD GAS ORDERABLES Performing Organization Address City/[facility]/ZIP Co de Phone Number [facility] [address] [place] [address] * ELECTROLYTES (02/12/2016 5:49 EDT) Sodium 139 136 - 145 mEq/L 02/12/2016 6:[address] [facility] Potassium 4.4 3.5 - 5.0 mEq/L 02/12/2016 6:[address] [facility] Chloride 99 96 - 110 mEq/L 02/12/2016 6:[address] [facility] CO2 29 24 - 32 mEq/L 02/12/2016 6:[address] [facility] Blood specimen (specimen) BLOOD SPECIMEN / Unknown 02/12/2016 5:49 EDT 02/12/2016 6:09 EDT Lorri Jones MD CHEMISTRY & BLO OD GAS ORDERABLES [facility] [address] [place] [address] * (ABNORMAL) HEMAGRAM (02/12/2016 5:49 EDT) WBC 7.99 4.0 - 10.4 K/cmm 02/12/2016 6:18 [facility] RBC 4.77 4.36 - 5.78 M/cmm 02/12/2016 6:18 [facility] Hemoglobin 13.6(L) 13.8 - 17.3 gm/dl 02/12/2016 6:18 [facility] HCT 39.7 39.5 - 50.2 % 02/12/2016 6:18 [facility] MCV 83 81 - 95 fl 02/12/2016 6:18 [facility] MCH 28.5 27.6 - 33.0 pg 02/12/2016 6:18 [facility] MCHC 34.3 32.8 - 36.4 gm/dl 02/12/2016 6:18 [facility] RDW-CV 13.2 11.8 - 14.1 % 02/12/2016 6:18 [facility] RDW-SD 39.9 36.5 - 45.9 fl 02/12/2016 6:18 [facility] PLT 257 141 - 377 K/cmm 02/12/2016 6:18 [facility] MPV 10.2 9.5 - 12.7 fl 02/12/2016 6:[address] [facility] Blood specimen (specimen) BLOOD SPECIMEN / Unknown 02/12/2016 5:49 EDT 02/12/2016 6:09 EDT Lorri Jones MD HEMATOLOGY & PF [address] [facility] [address] [place] [address] * (ABNORMAL) GLUCOSE, GLUCOMETER (02/11/2016 20:24 EDT) Glucose, Fingerstick 181(H) 70 - 100 mg/dl 02/11/2016 20:[address] [facility] Hadoop Engineer [place] [id number] 02/11/2016 20:[address] [facility] Comment:Test Performed by Nu rsing Services BLOOD SPECIMEN / Unknown 02/11/2016 20:24 EDT 02/11/2016 20:56 EDT Jaxson Schmitt MD CHEMISTRY & BLOOD GAS ORDERABLES Performing Organization Address City/[facility]/ZIP Co de Phone Number [facility] [address] [place] [address] * (ABNORMAL) GLUCOSE, GLUCOMETER (02/11/2016 17:08 EDT) Glucose, Fingerstick 153(H) 70 - 100 mg/dl 02/11/2016 17:[address] [facility] Hadoop Engineer ID [id number] 02/11/2016 17:[address] [facility] Comment:Test Performed by Nu rsing Services BLOOD SPECIMEN / Unknown 02/11/2016 17:08 EDT 02/11/2016 17:09 EDT Jaxson Schmitt MD CHEMISTRY & BLOOD GAS ORDERABLES [facility] [address] [place] [address] * (ABNORMAL) GLUCOSE, GLUCOMETER (02/11/2016 12:41 EDT) Glucose, Fingerstick 153(H) 70 - 100 mg/dl 02/11/2016 12:[address] [facility] Hadoop Engineer ID [id number] 02/11/2016 12:[address] [facility] Comment:Test Performed by Nu ing Services BLOOD SPECIMEN / Unknown 02/11/2016 12:41 EDT 02/11/2016 12:44 EDT Jaxson Schmitt MD CHEMISTRY & BLOOD GAS ORDERABLES [facility] [address] [place] [address] * EKG 12-LEAD (02/11/2016 12:39 EDT) 02/11/2016 12:[address] [facility] E[facility] - 02/12/2016 16:01 EDT ? [facility] ? Test Date: ?2016-02-11 Pat Name: ? CLAUDIA BATISTA ? Department: ?? TAVARES 5 ? Room: ? ME506 Gender: ? M ?Local Coordinator: ?? [id number] : ?1955 ? Requested By: GRANT ALVARADO Order Number: [id number] ? Reading MD: ?? RYLIE LOZADA MD ? Measurements Intervals ?[place] ? Rate: ? 71 ? P: ?4 MA: ? 213 ?QRS: ?73 QRSD: ? 108 ?T: ?28 QT: ? 388 ? QTc: ?423 ? Interpretive Statements SINUS RHYTHM WITH FIRST DEGREE AV BLOCK Compared to ECG 02/10/2016 23:28:00 No significant changes I reviewed the tracing and have either agreed or edited the findings in this report. Electronically Signed On 02-12-16 16:01:07 EDT by RYLIE LOZADA MD. Procedure Note Rylie Lozada MD - 02/12/2016 [facility] Test Date: 2016-02-11 Pat Name: CLAUDIA BATISTA Department: [place] [address] Room: [facility] Gender: M Local Coordinator: [id number] : 1955 Requested By: GRANT ALVARADO Order Number: [id number] Reading MD: RYLIE LOZADA MD Measurements Intervals [place] Rate: 71 P: 4 MA: 213 QRS: 73 QRSD: 108 T: 28 QT: 388 QTc: 423 Interpretive Statements SINUS RHYTHM WITH FIRST DEGREE AV BLOCK Compared to ECG 02/10/2016 23:28:00 No significant changes I reviewed the tracing and have either agreed or edited the findings inthis report. Electronically Signed On 02-12-16 16:01:07 EDT by RYLIE STINSON. Colton Walls MD CARDIAC ECG ORDERABL ES [facility] EKG * LEFT HEART CATH (02/11/2016 11:13 EDT) Anatomical Region Laterality Modality Other 02/11/2016 11:1 3 EDT Narrative 02/14/2016 11:01 EDT Cardiology [address] [place] [id number] Catheterization Laboratory Study Patient: Claudia Batista ? Study Date: ?02/11/2016 ?Accession #: ? [id number] : ? 1955 Referring Physician: Gregoria Nicholas Diagnostic Attending: ??Nash Herron Interventional Attending: ?? Nash Herron Diagnostic Fellow: Colton Walls Interventional Fellow: Colton Walls ATTESTATION: Dr. Nash Herron was present and supervising for the entire procedure, I Dr. Colton Walls was the initial author of this report. I, Dr. Nash Herron have reviewed and agree with the findings of this report. PROCEDURE PLAN: Based on the diagnostic study percutaneous coronary intervention is indicated. RESEARCH STUDY: Patient is not enrolled in any research studies. IMPRESSIONS: 1. Severe single vessel coronary artery disease of mid LAD artery (80% in-stent ?? restenosis) and mild disease elsewhere. Percutaneous intervention is ?? indicated. 2. Non ST-elevated myocardial infarction (NSTEMI). The culprit lesion was ?? identified and reperfusion was successfully achieved. SUMMARY: 1. HPI and indications: Dyspnea. Cel-YP-mmedzkst myocardial infarction. 2. Left ventricle: Systolic function is normal. The estimated ejection fraction ?? is 55%. Wall motion is normal; there are no regional wall motion ?? abnormalities. 3. Left main: Normal. 4. LAD: Prior intervention: stent in the proximal LAD. The stented segment is ?? patent. Mid-vessel lesion: There is a discrete, 16mm (L), 80% in-stent ?? restenosis. The lesion was stented (see 1st lesion intervention), with ?? balloon angioplasty. Following intervention, the lesion has a residual ?? stenosis of 0%, an excellent angiographic appearance, and CECE grade 3 flow ?? (brisk flow). 5. 1st obtuse marginal: Distal vessel lesion: There is a 60% stenosis. 6. Right coronary: Minor luminal irregularities. RECOMMENDATIONS: 1. Patient management should include risk factor modification and a cardiac ?? rehabilitation program. The patient was counseled regarding the importance of ?? adherence to the prescribed antiplatelet therapy. 2. Continue aspirin, at 81mgPOdaily, indefinitely. 3. Continue clopidogrel (Plavix), at 75mgPOdaily, for 1yr. HISTORY: Dyspnea. ??Dfw-JH-pqzjnecc myocardial infarction. ??PMH: ?? Myocardial infarction. Functional status: ?? CCS class IV (angina at rest or with any physical activity). ??Risk factors: ??Family history of coronary artery disease. Hypertension. Dyslipidemia. ??Medications: ??Calcium channel blockers. Anti-anginal therapy. ??Allergies: ??No known allergies. LABS, PRIOR TESTS, PROCEDURES AND SURGERY: Serum creatinine (current admission) of 0.8 mg/dl. ??Hematocrit of 41 %. Platelet count of 269 th/ul. ??Hemoglobin (pre-procedure) of 14 g/dl. Catheterization with coronary intervention. STUDY DATA: Study status: ??Cardiac cath: urgent. Percutaneous coronary intervention: urgent. Patient status: ??Inpatient. ??Location: ??Catheterization laboratory. Sex: male. Patient is 60yr old. Height: 176.5cm. Weight: 105.3kg. BSA: 2.31m^2. Procedures performed: ?Right radial artery access. ?Left heart catheterization with angiography. ?Left coronary angiography. ?Left coronary angiography. ?Lesion intervention: ?? Percutaneous intervention on the 80% restenosis in the mid LAD. ?Interventional OCT examination; unsuccessful attempt. ?Balloon angioplasty. ?Balloon angioplasty. ?Stent placement. Interventional OCT examination. ANESTHESIA: Conscious sedation. PROCEDURE: 1. Initial setup. The patient was brought to the laboratory in the fasting ?? state. A baseline ECG was recorded. Surface ECG leads, automatic cuff blood ?? pressure measurements, and pulse oximetric signals were monitored. 2. Skin preparation. The planned puncture sites were prepped with chlorhexidine ?? and draped in the usual sterile manner. 3. Right radial artery access. A 6 Fr/10/.021 [place] Sheath SLENDER sheath was ?? advanced into the vessel. 4. Left heart catheterization with angiography. A 5 FR Pedro Luis catheter was ?? advanced across the aortic valve to the left ventricle under fluoroscopic ?? guidance. 12ml of contrast was injected by hand. 5. Selective left coronary angiography. A 5 FR Pedro Luis catheter was advanced into ?? the left coronary vessel ostium under fluoroscopic guidance. Contrast was ?? injected. Images were obtained in multiple projections. 6. Selective left coronary angiography. A 5 FR Pedro Luis catheter was advanced into ?? the left coronary vessel ostium under fluoroscopic guidance. Contrast was ?? injected. Images were obtained in multiple projections. 7. Catheter exchange. The catheter was exchanged for a 6 FR/ 100cm IKARI LEFT ?? 3.75 catheter. 8. Right radial artery hemostasis. The sheath was removed. Mechanical ?? compression was applied. 1st lesion intervention: Percutaneous intervention on the 80% restenosis in the mid LAD. 1. Guider placement. A 6 FR/ 100cm IKARI LEFT 3.75 guiding catheter was ?? successfully placed into the ostium of the left main. 2. Wire placement. A 180 Prowater wire was placed across the lesion in the LAD ?? coronary artery. 3. Optical coherence tomography evaluation; unsuccessful attempt due to ?? inability to pass the OCT imaging catheter across the lesion. The imaging ?? catheter was withdrawn and no imaging was performed. 4. Balloon angioplasty. A 2mm (D) x 15mm (L), [place] RX balloon was employed. The ?? balloon was placed across the lesion and given a single inflation with a ?? maximum inflation pressure of 13atm. 5. Balloon angioplasty. A 2.5mm (D) x 12mm (L), NC Quantum [place] balloon was ?? employed. The balloon was placed across the lesion and given a single ?? inflation with a maximum inflation pressure of 20atm. 6. Stent placement. A 2.5mm (D) x 20mm (L), Synergy stent was advanced across ?? the lesion and deployed with a single inflation and a maximum pressure of ?? 20atm. 7. Optical coherence tomography evaluation. An OCT imaging catheter was advanced ?? into position distal to the lesion. The imaging catheter was withdrawn at a ?? constant velocity as imaging was performed. STUDY COMPLETION: The estimated blood loss was 10ml. All catheters inserted during the procedure were removed. The patient tolerated the procedure well and was discharged from the lab. There were no complications. ??Contrast: ?? Omnipaque 130ml (total dose). Omnipaque 70ml (wasted). ??Fluoroscopy time: ??16.6min. ??Fluoroscopy dose: 39.4cGy. CORONARY ARTERIES: The coronary circulation is right dominant. Left main: ??Normal. LAD: Prior intervention: stent in the proximal LAD. The stented segment is patent. ??Mid-vessel lesion: There is a discrete, 16mm (L), 80% in-stent restenosis. This lesion is without evidence of thrombus. There is CECE grade 3 flow (brisk flow) across the lesion. The lesion is significant by visual estimate. The distal vessel supplies a large vascular territory. The lesion is a likely culprit for the patient's recent myocardial infarction. The lesion was stented (see 1st lesion intervention), with balloon angioplasty. Following intervention, the lesion has a residual stenosis of 0%, an excellent angiographic appearance, and CECE grade 3 flow (brisk flow). There were no site complications. 1st obtuse marginal: ??Distal vessel lesion: There is a 60% stenosis. Right coronary: ??Minor luminal irregularities. LEFT VENTRICLE: Systolic function is normal. The estimated ejection fraction is 55%. Wall motion is normal; there are no regional wall motion abnormalities. Wall motion score: 1.00. AORTIC VALVE: There was no gradient across the aortic valve. HEMODYNAMICS: Early diastolic pressure in the left ventricle is normal at 10-12 mmHg. + + + LV pressure s/ed ? 101/10 ? + + + Arterial pressure s/d (m) 89/63 (77) + + + * Electronically signed by Nash Herron Jr., MD 2016-02-14 11:01 Procedure Note Nash Herron Jr., MD - 02/14/[address] [place] [id number] Catheterization Laboratory Study Patient: Claudia Batista Study Date:02/11/2016 : 1955 Referring Physician: Gregoria Nicholas Diagnostic Attending: Nash Herron Interventional Attending: Nash Herron Diagnostic Fellow: Colton Walls Interventional Fellow: Colton Walls ATTESTATION: Dr. Nash Herron was present and supervising for the entire procedure, IDrJefferson Walls was the initial author of this report. I, Dr. Nash Smith reviewed and agree with the findings of this report. PROCEDURE PLAN: Based on the diagnostic study percutaneous coronary intervention isindicated. RESEARCH STUDY: Patient is not enrolled in any research studies. IMPRESSIONS: 1. Severe single vessel coronary artery disease of mid LAD artery (80%in-stent restenosis) and mild disease elsewhere. Percutaneous intervention is indicated. 2. Non ST-elevated myocardial infarction (NSTEMI). The culprit lesionwas identified and reperfusion was successfully achieved. SUMMARY: 1. HPI and indications: Dyspnea. Mff-KK-cptjziuz myocardial infarction. 2. Left ventricle: Systolic function is normal. The estimated ejectionfraction is 55%. Wall motion is normal; there are no regional wall motion abnormalities. 3. Left main: Normal. 4. LAD: Prior intervention: stent in the proximal LAD. The stented segmentis patent. Mid-vessel lesion: There is a discrete, 16mm (L), 80%in-stent restenosis. The lesion was stented (see 1st lesion intervention),with balloon angioplasty. Following intervention, the lesion has aresidual stenosis of 0%, an excellent angiographic appearance, and CECE grade 3flow (brisk flow). 5. 1st obtuse marginal: Distal vessel lesion: There is a 60% stenosis. 6. Right coronary: Minor luminal irregularities. RECOMMENDATIONS: 1. Patient management should include risk factor modification and acardiac rehabilitation program. The patient was counseled regarding theimportance of adherence to the prescribed antiplatelet therapy. 2. Continue aspirin, at 81mgPOdaily, indefinitely. 3. Continue clopidogrel (Plavix), at 75mgPOdaily, for 1yr. HISTORY: Dyspnea. Ubk-EI-jhovkkyr myocardial infarction. PMH: Myocardialinfarction. Functional status: CCS class IV (angina at rest or with any physical activity). Risk factors: Family history of coronary artery disease. Hypertension. Dyslipidemia. Medications: Calcium channel blockers. Anti-anginal therapy. Allergies: No known allergies. LABS, PRIOR TESTS, PROCEDURES AND SURGERY: Serum creatinine (current admission) of 0.8 mg/dl. Hematocrit of 41 %. Platelet count of 269 th/ul. Hemoglobin (pre-procedure) of 14 g/dl. Catheterization with coronary intervention. STUDY DATA: Study status: Cardiac cath: urgent. Percutaneous coronary intervention:urgent. Patient status: Inpatient. Location: Catheterization laboratory. Sex:male. Patient is 60yr old. Height: 176.5cm. Weight: 105.3kg. BSA: 2.31m^2. Procedures performed: Right radial artery access. Left heart catheterization with angiography. Left coronary angiography. Leftcoronary angiography. Lesion intervention: Percutaneous interventionon the 80% restenosis in the mid LAD. Interventional OCT examination;unsuccessful attempt. Balloon angioplasty. Balloon angioplasty. Stentplacement. Interventional OCT examination. ANESTHESIA: Conscious sedation. PROCEDURE: 1. Initial setup. The patient was brought to the laboratory in thefasting state. A baseline ECG was recorded. Surface ECG leads, automatic cuffblood pressure measurements, and pulse oximetric signals were monitored. 2. Skin preparation. The planned puncture sites were prepped withchlorhexidine and draped in the usual sterile manner. 3. Right radial artery access. A 6 Fr/10/.021 [place] Sheath SLENDER sheathwas advanced into the vessel. 4. Left heart catheterization with angiography. A 5 FR Pedro Luis catheterwas advanced across the aortic valve to the left ventricle underfluoroscopic guidance. 12ml of contrast was injected by hand. 5. Selective left coronary angiography. A 5 FR Pedro Luis catheter was advancedinto the left coronary vessel ostium under fluoroscopic guidance. Contrastwas injected. Images were obtained in multiple projections. 6. Selective left coronary angiography. A 5 FR Pedro Luis catheter was advancedinto the left coronary vessel ostium under fluoroscopic guidance. Contrastwas injected. Images were obtained in multiple projections. 7. Catheter exchange. The catheter was exchanged for a 6 FR/ 100cm IKARILEFT 3.75 catheter. 8. Right radial artery hemostasis. The sheath was removed. Mechanical compression was applied. 1st lesion intervention: Percutaneous intervention on the 80% restenosis in the mid LAD. 1. Guider placement. A 6 FR/ 100cm IKARI LEFT 3.75 guiding catheter was successfully placed into the ostium of the left main. 2. Wire placement. A 180 Prowater wire was placed across the lesion in theLAD coronary artery. 3. Optical coherence tomography evaluation; unsuccessful attempt due to inability to pass the OCT imaging catheter across the lesion. Theimaging catheter was withdrawn and no imaging was performed. 4. Balloon angioplasty. A 2mm (D) x 15mm (L), [employer] RX balloon wasemployed. The balloon was placed across the lesion and given a single inflation witha maximum inflation pressure of 13atm. 5. Balloon angioplasty. A 2.5mm (D) x 12mm (L), NC Quantum [place] balloonwas employed. The balloon was placed across the lesion and given a single inflation with a maximum inflation pressure of 20atm. 6. Stent placement. A 2.5mm (D) x 20mm (L), Synergy stent was advancedacross the lesion and deployed with a single inflation and a maximum pressureof 20atm. 7. Optical coherence tomography evaluation. An OCT imaging catheter wasadvanced into position distal to the lesion. The imaging catheter was withdrawnat a constant velocity as imaging was performed. STUDY COMPLETION: The estimated blood loss was 10ml. All catheters inserted during theprocedure were removed. The patient tolerated the procedure well and was dischargedfrom the lab. There were no complications. Contrast: Omnipaque 130ml (totaldose). Omnipaque 70ml (wasted). Fluoroscopy time: 16.6min. Fluoroscopydose: 39.4cGy. CORONARY ARTERIES: The coronary circulation is right dominant. Left main: Normal. LAD: Prior intervention: stent in the proximal LAD. The stented segmentis patent. Mid-vessel lesion: There is a discrete, 16mm (L), 80% in-stent restenosis. This lesion is without evidence of thrombus. There is TIMIgrade 3 flow (brisk flow) across the lesion. The lesion is significant by visual estimate. The distal vessel supplies a large vascular territory. Thelesion is a likely culprit for the patient's recent myocardial infarction. The lesionwas stented (see 1st lesion intervention), with balloon angioplasty.Following intervention, the lesion has a residual stenosis of 0%, an excellent angiographic appearance, and CECE grade 3 flow (brisk flow). There were nosite complications. 1st obtuse marginal: Distal vessel lesion: There is a 60% stenosis. Right coronary: Minor luminal irregularities. LEFT VENTRICLE: Systolic function is normal. The estimated ejection fraction is 55%. Wallmotion is normal; there are no regional wall motion abnormalities. Wall motionscore: 1.00. AORTIC VALVE: There was no gradient across the aortic valve. HEMODYNAMICS: Early diastolic pressure in the left ventricle is normal at 10-12 mmHg. + + + LV pressure s/ed 101/10 + + + Arterial pressure s/d (m) 89/63 (77) + + + * Electronically signed by Nash Herron Jr., MD 2016-02-14 11:01 Raheel Rodriguez MD CARDIAC CATH ORDERAB LES * ECHOCARDIOGRAM LIMITED (02/11/2016 10:29 EDT) Anatomical Region Laterality Modality Other 02/11/2016 10:2 9 EDT Narrative 02/11/2016 11:00 EDT *Interpreting Group:* *[facility]* [address] [place] [id number] Date of study: 02/11/2016 Transthoracic Echocardiography M-mode and limited 2D *STUDY CONCLUSIONS* Summary: 1. Left ventricle: The cavity size was normal. Wall thickness was normal. ?? Systolic function was normal. The estimated ejection fraction was 60-65%. ?? Wall motion was normal; there were no regional wall motion abnormalities. 2. Right ventricle: The cavity size was normal. Wall thickness was normal. ?? Systolic function was normal. *PATIENT PRESENTATION* Height: ? 177.8cm ((70in) ) S/D Pressure: 121 / 64 Weight: ? 105.2kg ((231.5lb) ) BSA: ?2.31m^2 Test start time: ??08:39 AM. Test stop time: ??09:04 AM. ATTENDING ?Lorri Jones ADMITTING ?Pete Whyte MD REFERRING ?Gregoria Nicholas* WARM IN WORKER ??Adeline Romero PERFORMING ?? [facility], ORDERING ? Raheel Rodriguez REFERRING ?Raheel Rodriguez *PROCEDURE DATA* Procedure information: ??This study was interpreted by [facility]. Pertinent images and digital data are archived for permanent storage and are available for subsequent review. ??Study status: Routine. Transthoracic echocardiography. ??M-mode and limited 2D. A Transthoracic Echocardiogram was performed. Scanning was performed from the parasternal, apical, and subcostal acoustic windows. Images were obtained using an [employer]q 9 cardiac ultrasound machine. Image quality was suboptimal. The study was technically limited due to body habitus. 2ml of Intravenous contrast (Definity) was administered by Adeline Romero NANY to enhance delineation of left ventricular endocardial borders. Prior to administration at least two (2) contiguous segments of the left ventricular border were not visualized. A total of 1 vial(s) of Definity was used. ??Study completion: ??The patient tolerated the procedure well. *INDICATIONS AND HISTORY* Indications: ?? Type 2 Diabetes mellitus without complications (E11.9). ??Angina Pectoris, unspecified (I20.9). ??Non-ST elevation (NSTEMI) myocardial infarction (I21.4). *CARDIAC ANATOMY* Left ventricle: ??The cavity size was normal. Wall thickness was normal. Systolic function was normal. The estimated ejection fraction was 60-65%. Wall motion was normal; there were no regional wall motion abnormalities. Aortic valve: ?? Trileaflet; normal thickness leaflets. Mobility was not restricted. Aorta: ??Aortic root: The aortic root was normal in size. Mitral valve: ?? Structurally normal valve. ?? Mobility was not restricted. Left atrium: [...] Daniel MD - 02/11/2016 *Interpreting Group:* *[facility]* [address] [place] [address] Date of study: 02/11/2016 Transthoracic Echocardiography M-mode and limited 2D *STUDY CONCLUSIONS* Summary: 1. Left ventricle: The cavity size was normal. Wall thickness wasnormal. Systolic function was normal. The estimated ejection fraction iut48-20%. Wall motion was normal; there were no regional wall motionabnormalities. 2. Right ventricle: The cavity size was normal. Wall thickness wasnormal. Systolic function was normal. *PATIENT PRESENTATION* Height: 177.8cm ((70in) ) S/D Pressure: 121 / 64 Weight: 105.2kg ((231.5lb) ) BSA: 2.31m^2 Test start time: 08:39 AM. Test stop time: 09:04 AM. ATTENDING Lorri Jones ADMITTING Pete Whyte MD REFERRING Gregoria Nicholas* WARM IN WORKER Adeline Romero PERFORMING [facility] ORDERING Azarbal, Amir REFERRING Azarbal, Amir *PROCEDURE DATA* Procedure information: This study was interpreted by [facility]. Pertinent images and digital data are archivedfor permanent storage and are available for subsequent review. Studystatus: Routine. Transthoracic echocardiography. M-mode and limited 2D. ATransthoracic Echocardiogram was performed. Scanning was performed from theparasternal, apical, and subcostal acoustic windows. Images were obtained using an [employer]q9 cardiac ultrasound machine. Image quality was suboptimal. The study was technically limited due to body habitus. 2ml of Intravenous contrast(Definity) was administered by Adeline Romero [facility] to enhance delineation of left ventricular endocardial borders. Prior to administration at least two(2) contiguous segments of the left ventricular border were not visualized. Atotal of 1 vial(s) of Definity was used. Study completion: The patienttolerated the procedure well. *INDICATIONS AND HISTORY* Indications: Type 2 Diabetes mellitus without complications (E11.9).Angina Pectoris, unspecified (I20.9). Non-ST elevation (NSTEMI) myocardialinfarction (I21.4). *CARDIAC ANATOMY* Left ventricle: The cavity size was normal. Wall thickness was normal.Systolic function was normal. The estimated ejection fraction was 60-65%. Wallmotion was normal; there were no regional wall motion abnormalities. Aortic valve: Trileaflet; normal thickness leaflets. Mobility was not restricted. Aorta: Aortic root: The aortic root was normal in size. Mitral valve: Structurally normal valve. Mobility was notrestricted. Left atrium: The atrium was normal in size. Right ventricle: The cavity size was normal. Wall thickness was normal. Systolic function was normal. Pulmonic valve: Poorly visualized. Tricuspid valve: Structurally normal valve. Doppler: There was no evidence for stenosis. Pulmonary artery: Poorly visualized. Systolic pressure could not be accurately estimated. [...] and edited thereported findings. Electronically signed by Cipriano Daniel MD 02/11/2016 11:00 Raheel Rodriguez MD CARDIAC ECHO ORDERAB LES * (ABNORMAL) TROPONIN I (02/11/2016 7:44 EDT) [facility] Troponin I (ng/mL) 0.475(H) <0.034 ng/ml 02/11/2016 8:[address] [facility] Blood specimen (specimen) BLOOD SPECIMEN / Unknown 02/11/2016 7:44 EDT 02/11/2016 7:47 EDT Lorri Jones MD CHEMISTRY & BLO OD GAS ORDERABLES [facility] [address] [place] [address] * HEPARIN LEVEL - UNFRACTIONATED HEPARIN (02/11/2016 7:44 EDT) Pathologist [facility] Heparin Level-UFH 0.50 IU/mL 016 8:[address] [facility] Comment: Unfractionated heparin therapeutic range = 0.3-0.7 IU/ml This test is not intended for monitoring direct Xa inhibitors, direct thrombin inhibitors, or fondaparinux. Exogenous ATIII is NOT supplied in this assay. For unexpected or persistently low levels, consider measuring patient's ATIII level. Blood specimen (specimen) BLOOD SPECIMEN / Unknown 02/11/2016 7:44 EDT 02/11/2016 7:47 EDT Clarita Lynch DO HEMATOLOGY & PF4 ORDERABLES Performing Organization Address City/[facility] Co de Phone Number [facility] [address] [place] [address] * (ABNORMAL) GLUCOSE, GLUCOMETER (02/11/2016 6:07 EDT) Glucose, Fingerstick 138(H) 70 - 100 mg/dl 02/11/2016 6:[address] [facility] Hadoop Engineer ID [id number] 02/11/2016 6:[address] [facility] Comment:Test Performed by [facility] BLOOD SPECIMEN / Unknown 02/11/2016 6:07 EDT 02/11/2016 6:08 EDT Lorri Jones MD CHEMISTRY & BLO OD GAS ORDERABLES Performing Organization Address [facility] Co de Phone Number [facility] [address] [place] [address] * HEPARIN LEVEL - UNFRACTIONATED HEPARIN (02/11/2016 5:33 EDT) Heparin Level-UFH 0.56 IU/mL 016 6:[address] [facility] Comment: Unfractionated heparin therapeutic range = 0.3-0.7 IU/ml This test is not intended for monitoring direct Xa inhibitors, direct thrombin inhibitors, or fondaparinux. Exogenous ATIII is NOT supplied in this assay. For unexpected or persistently low levels, consider measuring patient's ATIII level. Blood specimen (specimen) BLOOD SPECIMEN / Unknown 02/11/2016 5:33 EDT 02/11/2016 5:45 EDT oLrri Jones MD HEMATOLOGY & PF 4 ORDERABLES Performing Organization Address City/[facility]/ZIP Co de Phone Number [facility] [address] [place] [address] * MAGNESIUM (02/11/2016 5:33 EDT) Magnesium 2.0 1.7 - 2.8 mg/dl 02/11/2016 6:[address] [facility] Blood specimen (specimen) BLOOD SPECIMEN / Unknown 02/11/2016 5:33 EDT 02/11/2016 5:45 EDT Clarita Lynch DO CHEMISTRY & BLOOD GAS ORDERABLES Performing Organization Address [facility] Co de Phone Number [facility] [address] [place] [address] * CREATININE (02/11/2016 5:33 EDT) Creatinine 0.81 0.66 - 1.25 mg/dl 02/11/2016 6:[address] [facility] GFR, Calculated 96 >60 ml/min/1.7 3m2 02/11/2016 6:[address] [facility] Comment: eGFR calculated using CKD-EPI equation for non Americans. Multiply eGFR by 1.16 for Americans. Blood specimen (specimen) BLOOD SPECIMEN / Unknown 02/11/2016 5:33 EDT 02/11/2016 5:45 EDT Lorri Jones MD CHEMISTRY & BLO OD GAS ORDERABLES Performing Organization Address City/[facility]/ZIP Co de Phone Number [facility] [address] [place] [address] * BUN (02/11/2016 5:33 EDT) BUN 11 10 - 26 mg/dl 02/11/2016 6:[address] [facility] Blood specimen (specimen) BLOOD SPECIMEN / Unknown 02/11/2016 5:33 EDT 02/11/2016 5:45 EDT Lorri Jones MD CHEMISTRY & BLO OD GAS ORDERABLES Performing Organization Address City/[facility]/ZIP Co de Phone Number [facility] [address] [place] [address] * ELECTROLYTES (02/11/2016 5:33 EDT) Sodium 140 136 - 145 mEq/L 02/11/2016 6:[address] [facility] Potassium 4.2 3.5 - 5.0 mEq/L 02/11/2016 6:[address] [facility] Chloride 99 96 - 110 mEq/L 02/11/2016 6:[address] [facility] CO2 28 24 - 32 mEq/L 02/11/2016 6:[address] [facility] Blood specimen (specimen) BLOOD SPECIMEN / Unknown 02/11/2016 5:33 EDT 02/11/2016 5:45 EDT Lorri Jones MD CHEMISTRY & BLO OD GAS ORDERABLES Performing Organization Address [facility] Co de Phone Number [facility] [address] [place] [address] * (ABNORMAL) HEMAGRAM (02/11/2016 5:33 EDT) WBC 10.51(H) 4.0 - 10.4 K/cmm 02/11/2016 6:04 [facility] RBC 5.04 4.36 - 5.78 M/cmm 02/11/2016 6:04 [facility] Hemoglobin 14.0 13.8 - 17.3 gm/dl 02/11/2016 6:04 [facility] HCT 41.5 39.5 - 50.2 % 02/11/2016 6:04 [facility] MCV 82 81 - 95 fl 02/11/2016 6:04 [facility] MCH 27.8 27.6 - 33.0 pg 02/11/2016 6:04 [facility] MCHC 33.7 32.8 - 36.4 gm/dl 02/11/2016 6:04 [facility] RDW-CV 13.1 11.8 - 14.1 % 02/11/2016 6:04 [facility] RDW-SD 39.0 36.5 - 45.9 fl 02/11/2016 6:04 [facility] PLT 269 141 - 377 K/cmm 02/11/2016 6:04 [facility] MPV 10.4 9.5 - 12.7 fl 02/11/2016 6:04 [facility] Blood specimen (specimen) BLOOD SPECIMEN / Unknown 02/11/2016 5:33 EDT 02/11/2016 5:45 EDT Lorri Jones MD HEMATOLOGY & PF [address] [facility] [address] [place] [id number] * LIPID PROFILE (INCLUDES CHOLESTEROL, TRIGLYCERIDES, HDL, LDL) (02/11/2016 5:33 EDT) Cholesterol 137 mg/dl 02/11/2016 6:18 [facility] Comment: Desirable:<200 Borderline High:200-239 High:>dd=749 Triglycerides 187 mg/dl 02/11/2016 6:18 [facility] Comment: Normal:<150 Borderline High:150-199 High:200-499 Very High:>hv=704 HDL 40 mg/dl 02/11/2016 6:18 [facility] Comment: Low:<40 Normal:40-60 Desirable: >60 LDL, Calculated 60 mg/dl 6 6:18 [facility] Comment: Optimal:<100 Near Optimal:100-129 Borderline High:130-159 High:160-189 Very High:>nv=074 Chol/HDL Ratio 3.4 02/11/2016 6:18 [facility] Fasting? Unknown 02/11/2016 5:45 [facility] Non HDL Cholesterol 97 mg/dl 02/11/2016 6:18 [facility] Comment: Desirable:<130 Borderline:130-159 High: 160-189 Very High: >ad=191 Blood specimen (specimen) BLOOD SPECIMEN / Unknown 02/11/2016 5:33 EDT 02/11/2016 5:45 EDT Lorri Jones MD CHEMISTRY & BLO OD GAS ORDERABLES Performing Organization Address [facility] Co de Phone Number [facility] [address] [place] [address] * HEPARIN LEVEL - UNFRACTIONATED HEPARIN (02/11/2016 1:39 EDT) Heparin Level-UFH 0.25 IU/mL 016 2:[address] [facility] Comment: Unfractionated heparin therapeutic range = 0.3-0.7 IU/ml This test is not intended for monitoring direct Xa inhibitors, direct thrombin inhibitors, or fondaparinux. Exogenous ATIII is NOT supplied in this assay. For unexpected or persistently low levels, consider measuring patient's ATIII level. Sample retested, result confirmed Blood specimen (specimen) BLOOD SPECIMEN / Unknown 02/11/2016 1:39 EDT 02/11/2016 1:44 EDT Clarita Lynch DO HEMATOLOGY & PF4 ORDERABLES Performing Organization Address [facility] de Phone Number [facility] [address] [place] [address] * (ABNORMAL) TROPONIN I (02/10/2016 23:41 EDT) Troponin I (ng/mL) 0.743(H) <0.034 ng/ml 02/11/2016 1:[address] [facility] Comment: Moderate hemolysis Results may be affected due to hemolysis. Blood specimen (specimen) BLOOD SPECIMEN / Unknown 02/10/2016 23:41 EDT 02/11/2016 0:02 EDT Lorri Jones MD CHEMISTRY & BLO OD GAS ORDERABLES Performing Organization Address City/[facility] Co de Phone Number [facility] [address] [place] [address] * (ABNORMAL) HEMAGRAM (02/10/2016 23:41 EDT) WBC 10.59(H) 4.0 - 10.4 K/cmm 02/11/2016 0:08 [facility] RBC 5.20 4.36 - 5.78 M/cmm 02/11/2016 0:08 [facility] Hemoglobin 14.8 13.8 - 17.3 gm/dl 02/11/2016 0:08 [facility] HCT 42.2 39.5 - 50.2 % 02/11/2016 0:08 [facility] MCV 81 81 - 95 fl 02/11/2016 0:08 [facility] MCH 28.5 27.6 - 33.0 pg 02/11/2016 0:08 [facility] MCHC 35.1 32.8 - 36.4 gm/dl 02/11/2016 0:08 [facility] RDW-CV 13.1 11.8 - 14.1 % 02/11/2016 0:08 [facility] RDW-SD 38.5 36.5 - 45.9 fl 02/11/2016 0:08 [facility] PLT 249 141 - 377 K/cmm 02/11/2016 0:08 [facility] MPV 10.9 9.5 - 12.7 fl 02/11/2016 0:08 [facility] Blood specimen (specimen) BLOOD SPECIMEN / Unknown 02/10/2016 23:41 EDT 02/11/2016 0:02 EDT Lorri Jones MD HEMATOLOGY & PF [address] [facility] [address] [place] [address] * PROTIME (02/10/2016 23:41 EDT) Pro Time 12.8 10.1 - 13.0 secs 02/11/2016 0:20 [facility] I.N.R. 1.1 0.9 - 1.1 Ratio 02/11/2016 0:[address] [facility] Comment: Moderate Intensity Coumadin INR = 2.0-3.0 Adjustments in anticoagulant therapy dose should be based upon the INR and NOT the Pro Time. Blood specimen (specimen) BLOOD SPECIMEN / Unknown 02/10/2016 23:41 EDT 02/11/2016 0:02 EDT Lorri Jones MD HEMATOLOGY & PF 4 ORDERABLES Performing Organization Address [facility] de Phone Number [facility] [address] [place] [address] * ELECTROLYTES (02/10/2016 23:41 EDT) Sodium 139 136 - 145 mEq/L 02/11/2016 0:[address] [facility] Potassium 4.2 3.5 - 5.0 mEq/L 02/11/2016 0:[address] [facility] Chloride 98 96 - 110 mEq/L 02/11/2016 0:[address] [facility] CO2 27 24 - 32 mEq/L 02/11/2016 0:[address] [facility] Blood specimen (specimen) BLOOD SPECIMEN / Unknown 02/10/2016 23:41 EDT 02/11/2016 0:02 EDT Lorri Jones MD CHEMISTRY & BLO OD GAS ORDERABLES Performing Organization Address [facility] Phone Number [facility] [address] [place] [address] * BUN (02/10/2016 23:41 EDT) BUN 12 10 - 26 mg/dl 02/11/2016 0:[address] [facility] Blood specimen (specimen) BLOOD SPECIMEN / Unknown 02/10/2016 23:41 EDT 02/11/2016 0:02 EDT Lorri Jones MD CHEMISTRY & BLO OD GAS ORDERABLES Performing Organization Address [facility]/State/ZIP Co de Phone Number [facility] [address] [place] [address] * (ABNORMAL) CREATININE (02/10/2016 23:41 EDT) Creatinine 0.65(L) 0.66 - 1.25 mg/dl 02/11/2016 0:[address] [facility] GFR, Calculated 105 >60 ml/min/1.7 3m2 02/11/2016 0:[address] [facility] Comment: eGFR calculated using CKD-EPI equation for non Americans. Multiply eGFR by 1.16 for Americans. Blood specimen (specimen) BLOOD SPECIMEN / Unknown 02/10/2016 23:41 EDT 02/11/2016 0:02 EDT Lorri Jones MD CHEMISTRY & BLO OD GAS ORDERABLES Performing Organization Address [facility] Co de Phone Number [facility] [address] [place] [address] * MAGNESIUM (02/10/2016 23:41 EDT) Magnesium 2.0 1.7 - 2.8 mg/dl 02/11/2016 0:[address] [facility] Blood specimen (specimen) BLOOD SPECIMEN / Unknown 02/10/2016 23:41 EDT 02/11/2016 0:02 EDT Lorri Jones MD CHEMISTRY & BLO OD GAS ORDERABLES Performing Organization Address City/[facility]/ZIP Co de Phone Number [facility] [address] [place] [address] * HEMOGLOBIN A1C (02/10/2016 23:41 EDT) Hemoglobin A1C 7.2 % 02/11/2016 11:[address] [facility] Comment: Reference Range: <5.7% Normal 5.7-6.4% Increased risk for diabetes =>6.5% Diagnostic for diabetes (if confirmed) The A1c goal for non adults in general is <7%. The A1c goal for selected patients may be significantly lower than 7% if this can be achieved without significant hypoglycemia or other adverse effects of treatment. Est Avg Glucose 160 mg/dl 6 11:[address] [facility] Comment: eAG represents the A1c result expressed as average glucose in mg/dl. Blood specimen (specimen) BLOOD SPECIMEN / Unknown 02/10/2016 23:41 EDT 02/11/2016 0:02 EDT Lorri Jones MD CHEMISTRY & BLO OD GAS ORDERABLES Performing Organization Address [facility] de Phone Number [facility] [address] [place] [address] * (ABNORMAL) GLUCOSE, GLUCOMETER (02/10/2016 23:31 EDT) Glucose, Fingerstick 116(H) 70 - 100 mg/dl 02/10/2016 23:[address] [facility] Hadoop Engineer ID [id number] 02/10/2016 23:[address] [facility] Comment:[facility] BLOOD SPECIMEN / Unknown 02/10/2016 23:31 EDT 02/10/2016 23:33 EDT Lorri Jones MD CHEMISTRY & BLO OD GAS ORDERABLES Performing Organization Address [facility] de Phone Number [facility] [address] [place] [address] * EKG 12-LEAD (02/10/2016 23:28 EDT) 02/10/2016 23:[address] [facility] EKG - 02/13/2016 9:46 EDT ? [facility] ? Test Date: ?2016-02-10 Pat Name: ? CLAUDIA BATISTA ? Department: ?? TAVARES 5 ? Room: ? ME506 Gender: ? M ?Local Coordinator: ?? [id number] : ?1955 ? Requested By: JONES LORRI Order Number: [id number] ? Reading MD: ?? LYDIA CAMP MD ? Measurements Intervals ?[place] ? Rate: ? 75 ? P: ?-3 MA: ? 215 ?QRS: ?72 QRSD: ? 110 ?T: ?1 QT: ? 376 ? QTc: ?420 ? Interpretive Statements SINUS RHYTHM WITH FIRST DEGREE AV BLOCK POSSIBLE LEFT ATRIAL ENLARGEMENT Compared to ECG 04/12/2010 09:39:39 First degree AV block now present I reviewed the tracing and have either agreed or edited the findings in this report. Electronically Signed On 02-13-16 09:46:29 EDT by LYDIA CAMP MD. Procedure Note Lydia Camp MD - 02/13/2016 [facility] Test Date: 2016-02-10 Pat Name: CLAUDIA BATISTA Department: [place] [address] Room: [facility] Gender: M Local Coordinator: [id number] : 1955 Requested By: ROBERT BLACKMON Order Number: [id number] Reading MD: LYDIA CAMP MD Measurements Intervals [place] Rate: 75 P: -3 MA: 215 QRS: 72 QRSD: 110 T: 1 QT: 376 QTc: 420 Interpretive Statements SINUS RHYTHM WITH FIRST DEGREE AV BLOCK POSSIBLE LEFT ATRIAL ENLARGEMENT Compared to ECG 04/12/2010 09:39:39 First degree AV block now present I reviewed the tracing and have either agreed or edited the findings inthis report. Electronically Signed On 02-13-16 09:46:29 EDT by LYDIA MAS. Lorri Jones MD CARDIAC ECG ORD ERABLES [facility] EKG documented in this encounter Visit Diagnoses Diagnosis NSTEMI (non-ST elevated myocardial infarction) ([facility]) Acute myocardial infarction, subendocardial infarction, episode of care unspecified NSTEMI (non-ST elevated myocardial infarction) (H[facility]-CMS) Acute myocardial infarction, subendocardial infarction, episode of care unspecified documented in this encounter Administered Medications Inactive Administered Medications - up to 3 most recent administrations Medication Order MAR Action Action Date Dose Rate Site amitriptyline (ELAVIL) tablet 20 mg 20 mg, oral, AT BEDTIME, First dose on Thu02/11/16 at 0030, Until Discontinued Given 02/11/2016 21:08 EDT 20 mg Given 02/11/2016 1:10 EDT 20 mg amLODIPine (NORVASC) tablet 10 mg 10 mg, oral, DAILY, First dose on Thu02/11/16 at 0900, Until Discontinued, Routine Given 02/12/2016 9:39 EDT 10 mg Given 02/11/2016 8:05 EDT 10 mg aspirin chewable tablet 81 mg 81 mg, oral, DAILY, First dose on Thu02/11/16 at 0900, Until Discontinued, Routine Given 02/12/2016 9:38 EDT 81 mg Given 02/11/2016 8:04 EDT 81 mg cholecalciferol (Vitamin D3) tablet 1,000 Units 1,000 Units, oral, DAILY, First dose on Thu02/11/16 at 0900, Until Discontinued Given 02/12/2016 9:39 EDT 1,000 Units Given 02/11/2016 8:04 EDT 1,000 Units clopidogrel (PLAVIX) tablet 75 mg 75 mg, oral, DAILY, First dose on Thu02/11/16 at 0900, Until Discontinued, Routine Given 02/12/2016 9:38 EDT 75 mg Given 02/11/2016 8:04 EDT 75 mg fentaNYL citrate (PF) 50 mcg/mL injection intravenous, PRN, Starting on Thu02/11/16 at 1054, Until Thu02/11/16 at 1158, Routine Given 02/11/2016 11:58 EDT 50 mc g Given 02/11/2016 11:25 EDT 50 mcg Given 02/11/2016 10:56 EDT 50 mcg heparin 1,000 unit/mL injection 3,000 Units 3,000 Units (rounded from 2,982 Units = 35 Units/kg ? 85.2 kg Adjusted weight), intravenous, PRN, Starting on Thu02/10/16 at 2320, Until Thu02/11/16 at 1207, Other, Per Heparin Protocol, Routine Given 02/11/2016 2:22 EDT 3,000 Units heparin 1,000 unit/mL injection intravenous, PRN, Starting on Thu02/11/16 at 1122, Until Thu02/11/16 at 1146, Routine Given 02/11/2016 11:46 EDT 2,000 Units Given 02/11/2016 11:22 EDT 7,000 Units heparin in 1/2 NS 25,000 unit/250 mL infusion 1,200 Units/hr (12 mL/hr), intravenous, CONTINUOUS, Starting on Thu02/10/16 at 2330, Until Thu02/11/16 at 0006, Routine New Bag 02/10/2016 23:22 EDT 1,200 Units/hr 12 mL/hr heparin in / NS 25,000 unit/250 mL infusion 17 Units/kg/hr ? 85.2 kg Adjusted weight (14.484 mL/hr, rounded to 14.5 mL/hr), intravenous, CONTINUOUS, Starting on Thu02/11/16 at 0030, Until Thu02/11/16 at 1743, Routine Rate Change 02/11/2016 2:22 EDT 17 Units/kg/hr 14.5 mL/hr Rate Change 02/11/2016 1:10 EDT 15 Units/kg/hr 12.8 mL/hr insulin aspart (NOVOLOG FLEXPEN) injection subcutaneous, 3 TIMES DAILY WITH MEALS, First dose (after last modification) on Thu02/11/16 at 1700, Until Discontinued, Routine Given 02/12/2016 9:36 EDT 4 Units Given 02/11/2016 17:13 EDT 3 Units lisinopril (PRINIVIL, ZESTRIL) tablet 5 mg 5 mg, oral, DAILY, First dose on Thu02/11/16 at 0900, Until Discontinued, Routine Given 02/12/2016 9:38 EDT 5 mg Given 02/11/2016 8:04 EDT 5 mg metoprolol XL (TOPROL-XL) tablet 150 mg 150 mg, oral, DAILY, First dose (after last modification) on Thu02/11/16 at 0700, Until Discontinued Given 02/12/2016 9:38 EDT 150 mg Given 02/11/2016 6:07 EDT 150 mg midazolam (PF) (VERSED) 1 mg/mL injection intravenous, PRN, Starting on Thu02/11/16 at 1053, Until Thu02/11/16 at 1125, Routine Given 02/11/2016 11:25 EDT 1 mg Given 02/11/2016 11:05 EDT 1 mg Given 02/11/2016 10:55 EDT 1 mg pramipexole (MIRAPEX) tablet 0.125 mg 0.125 mg, oral, AT BEDTIME, First dose on Thu02/11/16 at 0030, Until Discontinued, Routine Given 02/11/2016 21:0 8 EDT 0.125 mg Given 02/11/2016 1:26 EDT 0.125 mg rosuvastatin (CRESTOR) tablet 20 mg 20 mg, oral, DAILY, First dose on Thu02/11/16 at 0900, Until Discontinued, Routine Given 02/11/2016 8:05 EDT 20 mg rosuvastatin (CRESTOR) tablet 40 mg 40 mg, oral, DAILY, First dose (after last modification) on Thu02/12/16 at 0900, Until Discontinued, Routine Given 02/12/2016 9:38 EDT 40 mg sodium chloride 0.9 % flush 3 mL 3 mL, intravenous, EVERY 8 HOURS, First dose on Thu02/11/16 at 0000, Until Discontinued, Routine Given 02/12/2016 9:40 EDT 3 mL Given 02/11/2016 23:08 EDT 3 mL Given 02/11/2016 16:47 EDT 3 mL documented in this encounter Discontinued Medications Medication Sig Discontinue Reason Start Date End Da te aspirin chewable 81 mg tablet Take 81 mg by mouth daily. Patient Stopped Taking 02/10/2016 clopidogrel (PLAVIX) 75 mg tablet Take 1 Tab by mouth daily. Plavix 75 mg daily uninterrupted for a minimum of one year Do not stop or interrupt this medication withour discussing with template inspector Start this medication in one month. First take Prasugrel 10 mg daily for one month. Start Plavix the day after stopping Prasugrel. Patient Stopped Taking 09/10/2009 02/10/2016 aspirin chewable 81 mg tablet Take 1 Tab by mouth daily. 02/12/2016 02/12/2016 clopidogrel (PLAVIX) 75 mg tablet Take 1 Tab by mouth daily. 02/12/2016 02/12/2016 aspirin 325 mg tablet Take 325 mg by mouth daily 02/12/2016 documented as of this encounter Active and Recently Administered Medications Times are shown in EDT. Scheduled Medication Order 02/10/2016 02/11/2016 02/12/2016 amitriptyline (ELAVIL) tablet 20 mg (CANCELED) 20 mg, oral, AT BEDTIME, First dose on Thu02/11/16 at 0030, Until Discontinued 0110 (Given - Provider: Ken Patton RN)2107 (Given - Provider: Marci Valiente RN) amLODIPine (NORVASC) tablet 10 mg (CANCELED) 10 mg, oral, DAILY, First dose on Thu02/11/16 at 0900, Until Discontinued, Routine 0805 (Given - Provider: Starr Esteves RN) 0939 (Given - Provider: Cheli Kulkarni RN) aspirin chewable tablet 81 mg 81 mg, oral, DAILY, First dose on Thu02/11/16 at 0900, Until Discontinued, Routine 0804 (Given - Provider: Starr Esteves RN) 0938 (Given - Provider: Cheli Kulkarni RN) cholecalciferol (Vitamin D3) tablet 1,000 Units (CANCELED) 1,000 Units, oral, DAILY, First dose on Thu02/11/16 at 0900, Until Discontinued 0804 (Given - Provider: Starr Esteves RN) 0939 (Given - Provider: Cheli Kulkarni RN) clopidogrel (PLAVIX) tablet 75 mg 75 mg, oral, DAILY, First dose on Thu02/11/16 at 0900, Until Discontinued, Routine 0804 (Given - Provider: Starr Esteves RN) 0938 (Given - Provider: Cheli Kulkarni RN) insulin aspart (NOVOLOG FLEXPEN) injection (CANCELED) subcutaneous, 3 TIMES DAILY WITH MEALS, First dose (after last modification) on Thu02/11/16 at 1700, Until Discontinued, Routine 1713 (Given - Provider: Marci Valiente RN) 0936 (Given - Provider: Cheli Kulkarni RN)1216 (Not Given - Provider: Cheli Kulkarni RN - Reason: Order parameters not met) lisinopril (PRINIVIL, ZESTRIL) tablet 5 mg (CANCELED) 5 mg, oral, DAILY, First dose on Thu02/11/16 at 0900, Until Discontinued, Routine 0804 (Given - Provider: Starr Esteves RN) 0938 (Given - Provider: Cheli Kulkarni RN) metoprolol XL (TOPROL-XL) tablet 150 mg (CANCELED) 150 mg, oral, DAILY, First dose (after last modification) on Thu02/11/16 at 0700, Until Discontinued 0607 (Given - Provider: Ken Patton RN) 0938 (Given - Provider: Cheli Kulkarni RN) pramipexole (MIRAPEX) tablet 0.125 mg (CANCELED) 0.125 mg, oral, AT BEDTIME, First dose on Thu02/11/16 at 0030, Until Discontinued, Routine 0126 (Given - Provider: Ken Patton RN)2108 (Given - Provider: Marci Valiente RN) rosuvastatin (CRESTOR) tablet 20 mg (CANCELED) 20 mg, oral, DAILY, First dose on Thu02/11/16 at 0900, Until Discontinued, Routine 0805 (Given - Provider: Starr Esteves RN) rosuvastatin (CRESTOR) tablet 40 mg (CANCELED) 40 mg, oral, DAILY, First dose (after last modification) on Thu02/12/16 at 0900, Until Discontinued, Routine 0938 (Given - Provider: Cheli Kulkarni, JANNY) sodium chloride 0.9 % flush 3 mL (CANCELED) 3 mL, intravenous, EVERY 8 HOURS, First dose on Thu02/11/16 at 0000, Until Discontinued, Routine 2325 (Given - Provider: Ken Patton RN) 0732 (Not Given - Provider: Starr Esteves RN - Reason: Change in condition)1647 (Given - Provider: Marci Valiente, JANNY)2308 (Given - Provider: Marci Valiente, RN) 0940 (Given - Provider: Cheli Kulkarni, JANNY) Continuous Medication Order 02/10/2016 02/11/2016 02/12/2016 heparin in 1/2 NS 25,000 unit/250 mL infusion (CANCELED) 1,200 Units/hr (12 mL/hr), intravenous, CONTINUOUS, Starting on Thu02/10/16 at 2330, Until Thu02/11/16 at 0006, Routine 2322 (New Bag - Provider: Ken Patton, JANNY) heparin in 1/2 NS 25,000 unit/250 mL infusion (CANCELED) 17 Units/kg/hr ? 85.2 kg Adjusted weight (14.484 mL/hr, rounded to 14.5 mL/hr), intravenous, CONTINUOUS, Starting on Thu02/11/16 at 0030, Until Thu02/11/16 at 1743, Routine 0110 (Rate Change - Provider: Ken Patton RN)0222 (Rate Change - Provider: Ken Patton RN) PRN Medication Order 02/10/2016 02/11/2016 02/12/2016 fentaNYL citrate (PF) 50 mcg/mL injection (COMPLETED) intravenous, PRN, Starting on Thu02/11/16 at 1054, Until Thu02/11/16 at 1158, Routine 1054 (Given - Provider: Tk Floyd RN)1056 (Given - Provider: Pete Floyd RN)1125 (Given - Provider: Pete Floyd RN)1158 (Given - Provider: Pete Floyd RN) heparin 1,000 unit/mL injection 3,000 Units (CANCELED)(Linked Group 1) 3,000 Units (rounded from 2,982 Units = 35 Units/kg ? 85.2 kg Adjusted weight), intravenous, PRN, Starting on 02/10/16 at 2320, Until Thu02/11/16 at 1207, Other, Per Heparin Protocol, Routine 0222 (Given - Provider: Donte Patton RN) heparin 1,000 unit/mL injection (COMPLETED) intravenous, PRN, Starting on Thu02/11/16 at 1122, Until Thu02/11/16 at 1146, Routine 1122 (Given - Provider: Tk Floyd RN)1146 (Given - Provider: Pete Floyd, JANNY) midazolam (PF) (VERSED) 1 mg/mL injection (COMPLETED) intravenous, PRN, Starting on Thu02/11/16 at 1053, Until Thu02/11/16 at 1125, Routine 1053 (Given - Provider: Tk Floyd RN)1055 (Given - Provider: Pete Floyd, JANNY)1105 (Given - Provider: Pete Floyd, JANNY)1125 (Given - Provider: Pete Floyd, RN) Linked Groups Order Group 1: heparin 1,000 unit/mL injection 6,000 Units (CANCELED) 6,000 Units (rounded from 5,964 Units = 70 Units/kg ? 85.2 kg Adjusted weight), intravenous, PRN, Starting on 02/10/16 at 2320, Until Thu02/11/16 at 1207, Other, Per Heparin Protocol, Routine Or heparin 1,000 unit/mL injection 3,000 Units (CANCELED)Jump to med 3,000 Units (rounded from 2,982 Units = 35 Units/kg ? 85.2 kg Adjusted weight), intravenous, PRN, Starting on 02/10/16 at 2320, Until Thu02/11/16 at 1207, Other, Per Heparin Protocol, Routine documented in this encounter Orders Medications Ordered That Eagle ht Not Have Been Administered Count Last Ordered Date First Ordered Date aspirin tablet 325 mg 1 02/11/2016 atorvastatin (LIPITOR) tablet 80 mg 1 02/10 fentaNYL citrate (PF) 50 mcg/mL injection 2 02/11/2016 heparin 1,000 unit/mL injection 1 6 lidocaine 20 mg/mL (2 %) injection 1 2015 metoprolol XL (TOPROL-XL) tablet 150 mg 1 0 02/11/2016 midazolam (PF) (VERSED) 1 mg/mL injection 2 02/11/2016 nitroGLYCERIN (NITROSTAT) SL tablet 0.4 mg 2 02/11/2016 02/10/2016 nitroglycerin 100 mcg/mL syringe 1 02/11/20 16 verapamil (ISOPTIN) 2.5 mg/mL injection 1 0 02/11/2016 acetaminophen (TYLENOL) tablet 650 mg 1 aspirin EC tablet 81 mg 1 02/10/2016 bisacodyl (DULCOLAX) suppository 10 mg 1 dextrose 50 % solution 12.5 g 1 02/10/2016 docusate sodium (COLACE) capsule 100 mg 1 0 02/10/2016 glucagon (human recombinant) injection 1 mg 1 02/10/2016 heparin 1,000 unit/mL inject ion 6,000 Units 1 02/10/2016 insulin aspart (NOVOLOG FLEXPEN) injection 2 02/10/2016 Diet Count Last Ordered Date First Orde red Date DISCHARGE DIET 7 02/12/2016 02/11/2016 Nursing Count Last Ordered Date First Orde red Date ACTIVITY INSTRUCTIONS 4 02/12/20162015 BATHING INSTRUCTIONS 3 02/12/2016 016 WOUND CARE INSTRUCTIONS 4 02/12/201601/18 AMBULATE PATIENT 1 02/11/2016 NOTIFY PHYSICIAN (SPECIFY) 4 02/11/2016 0 02/10/2016 NURSING ORDER: HEPARIN JACLYN COL (CARDIAC INDICATION) 2 02/11/2016 02/10/2016 PATIENT AT LOW RISK FOR VTE: RISK OF PHARMACOLOGIC PROPHYLAXIS OUTWEIG 1 02/11/2016 HEIGHT AND WEIGHT 1 02/10/2016 MAINTAIN SEQUENTIAL COMPRESSION DEVICE 1 MEASURE WEIGHT 02/10/2016 VTE PHARMACOLOGIC PROPHYLAXI S CURRENTLY ORDERED OR ON ALTERNATIVE THER 1 02/10/2016 IV Count Last Ordered Date First Orde red Date IV REQUEST 1 02/10/2016 Admission Count Last Ordered Date First Orde red Date STATUS: INPATIENT ACUTE ADMISSION 1 016 Transfer Count Last Ordered Date First Orde red Date NOTIFY PPS OF DISCHARGE COMPLETE 1 02/12/20 16 CHANGE ATTENDING TO: 02/11/2016 UR PATIENT STATUS CHANGE 02/11/2016 Discharge Count Last Ordered Date First Orde red Date DISCHARGE PATIENT 1 02/12/2016 Legal Count Last Ordered Date First Orde red Date MISCELLANEOUS DISCHARGE INSTRUCTIONS 01/1802/11/2016 documented in this encounter Care Teams Product Strategy Director Relationship Specialty Start Date End Date Gregoria Nicholas MD [address] [place] [address] PCP - General 10/27/12 09/12/18 documented as of this encounter
--- OUTSIDE RECORDS SUMMARY | 2024-03-04 00:28 | XMS_ITS | Encounter Summary ---
Author Organization [facility] Address [address] [place] [address] Care Team Providers Care Player Development Manager Name Role Phone Joaquín Carpenter MD Primary Care Provider [phone] Reason for Visit * Reason Onset Date Comments Paperwork request 08/18/2012 Encounter Details Date Type Department Care Team ([facility] Contact Info) Description 08/18/2012 Telephone [facility] Cardiology - [place] [place] [address] Broderick Galloway MD [address] [place] [address] Paperwork request Social History Tobacco Use Types [...] Yes 09/09/2009 documented as of this encounter Miscellaneous Notes * Telephone Encounter - Mary Tanner RN - 08/18/2012 1221 EST Patient calling to request note to be faxed to [facility] stating stents are MRI safe. Called Cal gustafson/ [facility] and confirmed a copy of Cath of 09/13/[address] Alejandra stating FA policy dated 04/25/13 would be sufficient. These were faxed to [phone] as per request. * Telephone Encounter - Puja Godoy - 08/18/2012 1142 EST Calling because he needs paperwork stating he is ok to have an mri because he has stints , the fax number [phone] [facility] documented in this encounter Plan of Treatment Upcoming Encounters Date Type Department Care Team (Late st Contact Info) Description 08/08/2024 13:00 EST Office Visit [facility] Gastroenterology - [address] [address] Kera Tatum PA-C [address] [facility], [address] [place] [phone] documented as of this encounter Visit Diagnoses Not on filedocumented in this encounter Care Teams Player Development Manager Relationship Specialty Start Date End Date Joaquín Carpenter MD [address] [place] [address] PCP - General 09/04/09 10/26/12 documented as of this encounter
--- OUTSIDE RECORDS SUMMARY | 2024-03-04 00:28 | XMS_ITS | Encounter Summary ---
Author Organization [facility] Address [address] [place] [address] Care Team Providers Care Clinical Orthoptist Name Role Phone Gregoria Nicholas MD Primary Care Provider [phone] Encounter Details Date Type Department Care Team (Latest Contact Info) Description 09/03/2015 14:00 EST - 09/03/2015 23:59 EST Hospital Encounter [facility] [address] [place] [address] Joaquín Carpenter MD [address] [place] [phone] Discharge Disposition: Home or Self Care Social [...] encounter Discharge Diagnoses Diagnosis R07.9 Chest pain, unspecified-R07.9[ICD-10-CM] I10 Essential (primary) hypertension-I10[ICD-10-CM] documented in this encounter Medications at Time of Discharge Medication Sig Dispensed Refills Start Date End Date amlodipine (NORVASC) 10 mg tablet Take 1 Tab by mouth daily. 30 Tab 11 09/10/2009 ERGOCALCIFEROL, VITAMIN D2, (VITAMIN D ORAL) Take [...] Takes 2-10 mg tablets at bedtime 12/02/2018 aspirin 325 mg tablet Take 325 mg by mouth daily 02/12/2016 aspirin chewable 81 mg tablet Take 81 mg by mouth daily. 02/10/2016 clopidogrel (PLAVIX) 75 mg tablet Take 1 Tab by mouth daily. Plavix 75 mg daily uninterrupted for a minimum of one year Do not stop or interrupt this medication withour discussing with community chest officer Start this medication in one month. First take Prasugrel 10 mg daily for one month. Start Plavix the day after stopping Prasugrel. 30 Tab 11 09/10/2009 02/10/2016 metformin (GLUCOPHAGE) 1,000 mg tabletIndications:typ e 2 diabetes mellitus Take by mouth 2 times daily with meals. Restart Metformin Sat Take as previously prescribed Metformin 1000 mg in the morning and Metformin 500 mg each evening, Indications: TYPE 2 DIABETES MELLITUS 30 Tab 0 09/10/2009 12/02/2018 documented as of this encounter Discharge Disposition Disposition Code Departure Means Destination Home or Self [facility] documented in this encounter Plan of Treatment Upcoming Encounters Date Type Department Care Team (Late st Contact Info) Description 08/08/2024 13:00 EST Office Visit [facility] Gastroenterology - [address] [address] Kera Tatum PA-C [address] [facility], [address] [place] [address] documented as of this encounter Procedures Procedure Name Priority Date/Time Associated Diagnosis Comments STRESS TEST - SCANNED 09/12/2015 7:50 EST documented in this encounter Results * STRESS TEST - SCANNED (09/12/2015 7:50 EST) Anatomical Region Laterality Modality Other 09/12/2015 7:50 EST Scan 2 Appliance Parts Counter Clerk IMG OTHER IMAGING O RDERABLES documented in this encounter Visit Diagnoses Not on filedocumented in this encounter Care Teams Clinical Orthoptist Relationship Specialty Start Date End Date Gregoria Nicholas MD [address] [place] [address] PCP - General 10/27/12 09/12/18 documented as of this encounter
--- OUTSIDE RECORDS SUMMARY | 2024-03-04 00:28 | XMS_ITS | Encounter Summary ---
Author Organization [facility] Address [address] [place] [address] Care Team Providers Care Manager Dish Name Role Phone Joaquín Carpenter MD Primary Care Provider [phone] Reason for Visit * Reason Comments Coronary Artery Disease Hypertension Encounter Details Date Type Department Care Team (Latest Contact Info) Description 10/07/2011 14:[address] [facility] Cardiology - [address] [place] [address] Broderick Galloway MD [address] [place] [address] Coronary atherosclerosis of ekuk coronary artery (Primary Dx) Social History Tobacco Use Types [...] Progress Notes * Broderick Galloway MD - 10/07/2011 1412 EDT [...] or interrupt this medication withour discussing with can closing machine operator Start this medication in one month. [...] 2-10 mg tablets atbedtime Review of Systems Pertinent items are noted [...] presents with cad stable at present. Excessive daytime somnolence raises question of under-treated sleep apnea Plan: Consider sleep study for CPAP titration documented in this encounter Plan of Treatment Upcoming Encounters Date Type Department Care Team (Late st Contact Info) Description 08/08/2024 13:[address] [facility] Gastroenterology - [facility] [address] [place], [place] [address] Kera Tatum PA-C 111 [facility], [address] [place] [address] documented as of this encounter Visit Diagnoses Diagnosis Coronary atherosclerosis of ek[place] coronary artery- Primary documented in this encounter Discontinued Medications Medication Sig Discontinue Reason Start Date End Da te citalopram (CELEXA) 20 mg tabletIndications:depr ession Take 40 mg by mouth daily. Indications: DEPRESSION Dose adjustment 10/07/2011 glimepiride (AMARYL) 2 mg tablet Take 2 mg by mouth every morning. Dose adjustment 10/07/2011 documented as of this encounter Historical Medications * This list may reflect changes made after this encounter. Medication Sig Dispensed Refills Start Date End Date glimepiride (AMARYL) 4 mg tablet Take 4 mg by mouth daily. 04/13/2012 citalopram (CELEXA) 40 mg tablet Take 40 mg by mouth daily. 04/13/2012 added in this encounter Care Teams Manager Dish Relationship Specialty Start Date End Date Joaquín Carpenter MD [address] [place] [address] PCP - General 09/04/09 10/26/12 documented as of this encounter
--- OUTSIDE RECORDS SUMMARY | 2024-03-04 00:28 | XMS_ITS | Encounter Summary ---
Author Organization [facility] Address [address] [place] [address] Care Team Providers Care Patent Litigation Associate Name Role Phone Gregoria Nicholas MD Primary Care Provider [phone] Reason for Visit * Reason Comments Coronary Artery Disease Hypertension Hyperlipidemia Encounter Details Date Type Department Care Team (Latest Contact Info) Description 02/05/2016 13:40 EDT Office Visit [facility] Cardiology - [address] [place] [address] Broderick Galloway MD [address] [place] [address] Atherosclerosis of koi coronary artery of koi heart without angina pectoris [I25.10] (Primary Dx) Social History Tobacco Use Types [...] visiting a doctor's office or shopping? No 02/05/2016 Cognitive Status Response Date of Assessm ent Because of a physical, menta l, or emotional condition, does this person have serious difficulty concentrating, remembering, or making decisions? Yes 02/05/2016 documented as of this encounter Progress Notes * Broderick Galloway MD - 02/05/2016 1346 EDT Subjective: Patient is a 60 y.o. male who presents for follow-up of cad. 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 He denies chest pain on exertion and dyspnea on exertion. He describes his symptoms asnot changed. He has been compliant with his medications. Medications side effects include none Past Medical History Diagnosis Date ??? SC (myocardial infarction) 1992, 2003 ??? CAD (coronary [...] or interrupt this medication withour discussing with ski maker Start this medication in one month. First [...] Info) Description 08/08/2024 13:00 EST Office Visit [facility] Gastroenterology - [address] [address] Kera Tatum PA-C 111 [facility], [address] [place] [address] documented as of this encounter Visit Diagnoses Diagnosis Atherosclerosis of koi coronary artery of koi heart without angina pectoris [I25.10]- Primary documented in this encounter Historical Medications * This list may reflect changes made after this encounter. Medication Sig Dispensed Refills Start Date End Date pramipexole (MIRAPEX) 0.125 mg tablet Take 0.125 mg by mouth. Reported on 09/09/2016 12/02/2018 liraglutide (VICTOZA) 0.6 mg/0.1 mL (18 mg/3 mL) injectable pen Inject 1.8 mg into the skin daily. 12/03/2018 added in this encounter Care Teams Patent Litigation Associate Relationship Specialty Start Date End Date Gregoria Nicholas MD [address] [place] [address] PCP - General 10/27/12 09/12/18 documented as of this encounter
--- OUTSIDE RECORDS SUMMARY | 2024-03-04 00:28 | XMS_ITS | Encounter Summary ---
Author Organization [facility] Address [address] [place] [address] Care Team Providers Care Career And Technology Education Teacher Name Role Phone Joaquín Carpenter MD Primary Care Provider [phone] Gregoria Nicholas MD Primary Care Provider [phone] Encounter Details Date Type Department Care Team (Late Contact Info) Description 08/30/2012 Orders Only [facility] Cardiology - [facility] [address] [place] [address] Broderick Galloway MD [address] [place] [address] Social History Tobacco Use Types Packs/Day [...] 13:00 EST Office Visit [facility] Gastroenterology - [address] [id number] Kera Tatum PA-C [address] [facility], [facility], [address] [place] [address] documented as of this encounter [...] on filedocumented in this encounter Care Teams Career And Technology Education Teacher Relationship Specialty Start Date End Date Joaquín Carpenter MD [address] [place] [address] PCP - General 09/04/09 10/26/12 Gregoria Nicholas MD [address] [place] [address] PCP - General 10/27/12 09/12/18 documented as of this encounter
--- OUTSIDE RECORDS SUMMARY | 2024-03-04 00:28 | XMS_ITS | Encounter Summary ---
Author Organization [facility] Address [address] [place] [address] Care Team Providers Care Rn Cardiovascular Icu Name Role Phone Gregoria Nicholas MD Primary Care Provider [phone] Encounter Details Date Type Department Care Team (Late Contact Info) Description 11/06/2015 Phlebotomy Only [address] [address] Condenser Setter, Outpatient Shortness of breath (Primary Dx) Social History Tobacco Use Types [...] Info) Description 08/08/2024 13:00 EST Office Visit [facility] Gastroenterology [address] [address] Kera Tatum PA-C 111 [facility], [facility], [address] [place] [phone] documented as of this encounter Procedures Procedure Name Priority Date/Time Associated Diagnosis Comments COMPLETE BLOOD COUNT Routine 11/06/2015 9:19 EDT Shortness of breath documented in this encounter Results * HEMAGRAM (11/06/2015 9:19 EDT) WBC 8.44 4.0 - 10.4 K/cmm 11/06/2015 11:15 [facility] RBC 5.09 4.36 - 5.78 M/cmm 11/06/2015 11:15 [facility] Hemoglobin 14.2 13.8 - 17.3 gm/dl 11/06/2015 11:15 [facility] HCT 41.7 39.5 - 50.2 % 11/06/2015 11:15 [facility] MCV 82 81 - 95 fl 11/06/2015 11:15 [facility] MCH 27.9 27.6 - 33.0 pg 11/06/2015 11:15 [facility] MCHC 34.1 32.8 - 36.4 gm/dl 11/06/2015 11:15 [facility] RDW-CV 12.4 11.8 - 14.1 % 11/06/2015 11:15 [facility] RDW-SD 37.2 36.5 - 45.9 fl 11/06/2015 11:15 [facility] PLT 299 141 - 377 K/cmm 11/06/2015 11:15 [facility] MPV 10.8 9.5 - 12.7 fl 11/06/2015 11:15 [facility] Blood specimen (specimen) BLOOD SPECIMEN / Unknown 11/06/2015 9:19 EDT 11/06/2015 10:59 EDT Broderick Galloway MD HEMATOLOGY & PF4 ORD ERABLES [facility] [address] [place] [address] documented in this encounter Visit Diagnoses Diagnosis Shortness of breath- Primary documented in this encounter Care Teams Rn Cardiovascular Icu Relationship Specialty Start Date End Date Gregoria Nicholas MD [address] [place] [phone] PCP - General 10/27/12 09/12/18 documented as of this encounter
--- OUTSIDE RECORDS SUMMARY | 2024-03-04 00:28 | XMS_ITS | Encounter Summary ---
Author Organization [facility] Address [address] [place] [address] Care Team Providers Care Manager Lean Name Role Phone Gregoria Nicholas MD Primary Care Provider [phone] Reason for Visit * Reason Onset Date Comments Advice Only 09/03/2015 Encounter Details Date Type Department Care Team ([facility] Contact Info) Description 09/03/2015 Telephone [facility] Cardiology - [address] [place] [address] Broderick Galloway MD [address] [place] [address] Advice Only Social History Tobacco Use Types Packs/Day [...] Telephone Encounter - Mary Tanner RN - 09/04/2015 0908 EST Received message [...] No communication barriers noted. Mary Tanner, RN * Telephone Encounter - Raad Stockton - 09/03/2015 1601 EST Pt. had stress echocardiogram ordered by PCP, and completed 09/03/15. Pt. asking if Dr. Galloway could review his test results in comparison to his test from 6 months ago, to see if it looks OK. Pt. requesting call back to discuss. documented in this encounter Plan of Treatment Upcoming Encounters Date Type Department Care Team (Late st Contact Info) Description 08/08/2024 13:00 EST Office Visit [facility] Gastroenterology - [address] [phone] Kera Tatum PA-C 111 [facility], [address] [place] [phone] documented as of this encounter Visit Diagnoses Not on filedocumented in this encounter Care Teams Manager Lean Relationship Specialty Start Date End Date Gregoria Nicholas MD [address] [place] [address] PCP - General 10/27/12 09/12/18 documented as of this encounter
--- OUTSIDE RECORDS SUMMARY | 2024-03-04 00:28 | XMS_ITS | Encounter Summary ---
Author Organization [facility] Address [address] [place] [address] Care Team Providers Care Reconciliation Clerk Name Role Phone Gregoria Nicholas MD Primary Care Provider [phone] Reason for Visit * Reason Comments Other cardiac clearance fo r shoulder surgery Coronary Artery Disease Encounter Details Date Type Department Care Team (Latest Contact Info) Description 03/27/2015 13:50 EDT Office Visit [facility] Cardiology - [address] [place] [address] Broderick Galloway MD [address] [place] [address] Coronary atherosclerosis of unspecified type of vessel, angoon or graft (Primary Dx) Social History Tobacco [...] ATHEROSCLER UNSPEC VESSEL[ICD-9-CM] documented in this encounter Progress Notes * Broderick Galloway MD - 03/27/2015 1351 EDT Subjective: Patient is a 59 y.o. male who presents for follow-up of cad. Patient reports doing well. He denies chest pain on exertion and dyspnea on exertion. He describes his symptoms as not changed. He has been compliant with his medications. Medications side effects include none Past Medical History Diagnosis Date ??? MS (myocardial infarction) 1992, 2003 ??? CAD (coronary [...] or interrupt this medication withour discussing with mat linker Start this medication in one month. First [...] HDL 52 09/08/2009 LDLBASE 110 09/08/2009 Assessment: Claudia Batista is a 59 y.o. year old male who presents with cad/ s/p stenting in 2009. No sxs, but considering shoulder surgery Plan: Stress echo documented in this encounter Plan of Treatment Upcoming Encounters Date Type Department Care Team (Late st Contact Info) Description 08/08/2024 13:00 EST Office Visit [facility] Gastroenterology - [address] [address] Kera Tatmu PA-C [address] [place] [address], [facility], [address] [place] [address] documented as of this encounter Procedures Procedure Name Priority Date/Time Associated Diagnosis Comments TREADMILL STRESS ECHO WAVEFORM 04/03/2015 10:13 EDT documented in this encounter Results * TREADMILL STRESS ECHO WAVEFORM (04/03/2015 10:13 EDT) Anatomical Region Laterality Modality Other 04/03/2015 10:1 3 EDT Narrative 04/03/2015 11:01 EDT For report of this Waveform, see associated Image Study. ? [facility] Stress ? Test Date: ?2015-04-03 Pat Name: ? CLAUDIA BATISTA ? Department: ? Room: ? Gender: ? M ?Nursing Assistants Teacher: ?? : ?1955 ? Requested By: KIERRA Ansari Order Number: [id number] ?Messi HAYES: ? Interpretive Statements Procedure Note SCIENCE FACULTY MEMBER, IMAGING - 04/03/2015 For report of this Waveform, see associated Image Study. [facility] Stress Test Date: 2015-04-03 Pat Name: CLAUDIA BATISTA Department: Room: Gender: M Nursing Assistants Teacher: : 1955 Requested By: KIERRA Ansari Order Number: [id number] Messi HAYES: Interpretive Statements Broderick Galloway MD CARDIAC ECHO ORDERAB LES documented in this encounter Visit Diagnoses Diagnosis Coronary atherosclerosis of unspecified type of vessel, angoon or graft- Primary documented in this encounter Historical Medications * This list may reflect changes made after this encounter. Medication Sig Dispensed Refills Start Date End Date ERGOCALCIFEROL, VITAMIN D2, (VITAMIN D ORAL) Take by mouth daily. added in this encounter Care Teams Reconciliation Clerk Relationship Specialty Start Date End Date Gregoria Nicholas MD [address] [place] [address] PCP - General 10/27/12 09/12/18 documented as of this encounter
--- OUTSIDE RECORDS SUMMARY | 2024-03-04 00:28 | XMS_ITS | Encounter Summary ---
Author Organization [facility] Address [address] [place] [address] Care Team Providers Care Medical Research Tech Name Role Phone Gregoria Nicholas MD Primary Care Provider [phone] Reason for Visit * Reason Onset Date Comments Other 02/22/2016 Disability Encounter Details Date Type Department Care Team ([facility] Contact Info) Description 02/22/2016 Telephone [facility] Cardiology - [address] [place] [address] Mary Tanner RN Other (Disability) Social History Tobacco Use Types Packs/Day Years [...] No 02/10/2016 documented as of this encounter Miscellaneous Notes * Telephone Encounter - Mary Tanner RN - 02/22/2016 0937 EDT Received additional paperwork for Disability from [facility]. Called and spoke w/ Gregoria. She confirmed receipt of paperwork completed and faxed on 02/14/16. She explained there was one page that the employer did not provide that needs to be completed and signed by Dr. Galloway. Will f/u. Page sent to Josesito Waller for Dr. Galloway's attention today. Mary Tanner RN Left message for patient disability paperwork completed and faxed back to [facility]. Mary Tanner RN documented in this encounter Plan of Treatment Upcoming Encounters Date Type Department Care Team (Late st Contact Info) Description 08/08/2024 13:00 EST Office Visit [facility] Gastroenterology - [address] [phone] Kera Tatum PA-C [address] [facility], [address] [place] [phone] documented as of this encounter Visit Diagnoses Not on filedocumented in this encounter Care Teams Medical Research Tech Relationship Specialty Start Date End Date Gregoria Nicholas MD [address] [place] [address] PCP - General 10/27/12 09/12/18 documented as of this encounter
--- OUTSIDE RECORDS SUMMARY | 2024-03-04 00:28 | XMS_ITS | Encounter Summary ---
Author Organization [facility] Address [address] [place] [address] Care Team Providers Care Boiler Operator Helper Name Role Phone Joaquín Carpenter MD Primary Care Provider [phone] Reason for Visit * Reason Onset Date Comments Other 06/15/2012 [facility] ( Lipids ) Returning Call 06/15/2012 Encounter Details Date Type Department Care Team ([facility] Contact Info) Description 06/15/2012 Telephone [facility] Cardiology - [address] [place], [place] [phone] Mary Tanner, JANNY Other (Question [facility]? ( Lipids )); Returning Call Social History Tobacco Use Types [...] Miscellaneous Notes * Telephone Encounter - Mary Tanner, JANNY - 08/02/2012 0842 EST Left message asking patient to call re: labs and med change through PCP. We've not received a copy of labs or information re: med change. * Telephone Encounter - Amy Roy RN - 07/09/2012 1401 EST Had some done at the [facility] and will ask their office to send some to our practice.PCP is changing his cholesterol medication. Let him know I would have Mary RN touch base with himafter the New year, he is fine with plan. No learning barriers identified. * Telephone Encounter - aNdine Wing - 07/09/2012 1313 EST Pt is returning call from 06/15. documented in this encounter Plan of Treatment Upcoming Encounters Date Type Department Care Team (Late st Contact Info) Description 08/08/2024 13:00 EST Office Visit [facility] Gastroenterology - [address] [address] Kera Tatum PA-C [address] [facility], [address] [place] [phone] documented as of this encounter Visit Diagnoses Not on filedocumented in this encounter Care Teams Boiler Operator Helper Relationship Specialty Start Date End Date Joaquín Carpenter MD [address] [place] [address] PCP - General 09/04/09 10/26/12 documented as of this encounter
--- OUTSIDE RECORDS SUMMARY | 2024-03-04 00:28 | XMS_ITS | Encounter Summary ---
Author Organization [facility] Address [address] [place] [address] Care Team Providers Care Certified Coder Name Role Phone Gregoria Nicholas MD Primary Care Provider [phone] Encounter Details Date Type Department Care Team (Late st Contact Info) Description 05/11/2015 Results Only [facility] [phone] Chinmay Brown MD [address] [place] [phone] Social History Tobacco Use Types Packs/Day Years [...] 08/08/2024 13:00 EST Office Visit [facility] Gastroenterology - [address] [address] Kera Tatum PA-C [address] [place] [address], [address] [place] [phone] documented as of this encounter Procedures Procedure Name Priority Date/Time Associated Diagnosis Comments SURGICAL PATHOLOGY Routine 05/11/2015 17 :51 EDT documented in this encounter Results * SURGICAL PATHOLOGY (05/11/2015 17:51 EDT) Pathology Report: SURGICAL PATHOLOGY REPORT Reports generated via electronic interface contain original data; however they are lacking the format of the original report. Caution should be taken when reading/interpreti ng unformatted reports. Name: ? CLAUDIA BATISTA ? Accession #: ? [id number] ? : ? 1955 (Age: 59) ??M ? Collect Date: ? 05/11/2015 ? Location: ? [facility] ? Receive Date: ? 05/11/2015 ? Provider: CHINMAY BROWN MD Copy to: LENORE BELL MD ? Final Pathologic Diagnosis: BONE AND SOFT TISSUE, LEFT SHOULDER SUBACROMIAL BURSA & LEFT DISTAL CLAVICLE, BIOPSY: - Chronic proliferative synovitis/bursitis with fibrosis. - Articular cartilage with degenerative changes consistent with degenerative arthropathy. Document reviewed and electronically signed by: Patsy Mendez MD Report ??Date: 05/18/2015 17:20 By the signature above, the attending physician certifies that he/she has personally conducted a gross and/or microscopic examination of the described specimens and rendered or confirmed the above diagnosis. Specimen(s) Received: Subacromial bursa L shoulder, L [...] soft tissue is rock-alva and fibrous-like with attached skeletal muscle and adipose tissue. The portion of bone has smooth surgical margins. One aspect is rock-alva and granular. Sectioning of the bone discloses rock-white, indurated, trabecular bone. Core Blower sections are submitted as follows: BLOCK FUNK 1- ??soft tissue 2- ??bone, following decalcification Ana Laguerre 05/14/2015 10:47 AM End of Report [facility] 05/11/2015 17:5 1 EDT 05/11/2015 17:51 EDT Chinmay Brown MD PATHOLOGY ORDERABLE S [facility] [address] [place] [address] documented in this encounter Visit Diagnoses Not on filedocumented in this encounter Care Teams Certified Coder Relationship Specialty Start Date End Date Gregoria Nicholas MD [address] [place] [address] PCP - General 10/27/12 09/12/18 documented as of this encounter
--- OUTSIDE RECORDS SUMMARY | 2024-03-04 00:28 | XMS_ITS | Encounter Summary ---
Author Organization [facility] Address [address] [place] [address] Care Team Providers Care Assembling Fabricator Name Role Phone Joaquín Carpenter MD Primary Care Provider [phone] Gregoria Nicholas MD Primary Care Provider [phone] Reason for Visit * Reason Onset Date Comments Appointment Related 10/25/2012 Encounter Details Date Type Department Care Team ([facility] Contact Info) Description 10/25/2012 Telephone [facility] Cardiology - [address] [address] Broderick Galloway MD [address] [place] [address] [place] [address] Appointment Related Social History Tobacco Use [...] Miscellaneous Notes * Telephone Encounter - Opal Holland - 10/25/2012 1141 EDT Patient would like to reschedule his 5/24/13 appointment for October. If not please keep 12/10/12. (Kanchan's schedule is not available in ) Please call patient. documented in this encounter Plan of Treatment Upcoming Encounters Date Type Department Care Team (Late st Contact Info) Description 08/08/2024 13:00 EST Office Visit [facility] Gastroenterology - [address] [phone] Kera Tatum PA-C [address] [facility], [address] [place] [phone] documented as of this encounter Visit Diagnoses Not on filedocumented in this encounter Care Teams Assembling Fabricator Relationship Specialty Start Date End Date Joaquín Carpenter MD [address] [place] [address] PCP - General 09/04/09 10/26/12 Gregoria Nicholas MD [address] [place] [phone] PCP - General 10/27/12 09/12/18 documented as of this encounter
--- OUTSIDE RECORDS SUMMARY | 2024-03-04 00:28 | XMS_ITS | Encounter Summary ---
Author Organization [facility] Address [address] [place] [address] Care Team Providers Care Wafer Polisher Name Role Phone Gregoria Nicholas MD Primary Care Provider [phone] Reason for Visit * Reason Onset Date Comments Appointment Related 08/31/2015 Encounter Details Date Type Department Care Team ([facility] Contact Info) Description 08/31/2015 Telephone [facility] Non-Invasive Cardiology - [facility] [address] [place] [address] Puja Leggett, RN [address] [place] [address] Appointment Related Social History Tobacco Use Types [...] encounter Miscellaneous Notes * Telephone Encounter - Puja Leggett, JANNY - 08/31/2015 1124 EST Spoke with patient [...] Info) Description 08/08/2024 13:00 EST Office Visit [facility] Gastroenterology - [address] [address] Kera Tatum PA-C [address] [place] [address], [address] [place] [phone] documented as of this encounter Visit Diagnoses Not on filedocumented in this encounter Care Teams Wafer Polisher Relationship Specialty Start Date End Date Gregoria Nicholas MD [address] [place] [address] PCP - General 10/27/12 09/12/18 documented as of this encounter
--- OUTSIDE RECORDS SUMMARY | 2024-03-04 00:28 | XMS_ITS | Encounter Summary ---
Author Organization [facility] Address [address] [place] [address] Care Team Providers Care Garage Helper Name Role Phone Joaquín Carpenter MD Primary Care Provider [phone] Reason for Visit * Reason Onset Date Comments Returning Call 08/17/2012 Encounter Details Date Type Department Care Team ([facility] Contact Info) Description 08/17/2012 Telephone [facility] Cardiology - [address] [place], [place] [phone] Broderick Galloway MD [address] [place] [address] Returning Call Social History Tobacco Use Types [...] stents are compatible. Advised Stents placed by [facility] are MRI safe. This was documented 2003. His stents were place 08/2009. He states he also had stents placed @ [facility]. He will contact them for their advice as well. * Telephone Encounter - Nadine Wing - 08/17/2012 1503 EST Pt returning call from last week. Pt also is asking if he can have an MRI as he has 8 stents. documented in this encounter Plan of Treatment Upcoming Encounters Date Type Department Care Team (Late st Contact Info) Description 08/08/2024 13:00 EST Office Visit [facility] Gastroenterology - [address] [address] Kera Tatum PA-C [address] [facility], [address] [place] [address] documented as of this encounter Visit Diagnoses Not on filedocumented in this encounter Care Teams Garage Helper Relationship Specialty Start Date End Date Joaquín Carpenter MD [address] [place] [address] PCP - General 09/04/09 10/26/12 documented as of this encounter
--- OUTSIDE RECORDS SUMMARY | 2024-03-04 00:28 | XMS_ITS | Encounter Summary ---
Author Organization [facility] Address [address] [place] [address] Care Team Providers Care Family Member Caretaker Name Role Phone Gregoria Nicholas MD Primary Care Provider [phone] Reason for Visit * Reason Onset Date Comments Letter for School/Work 04/18/2015 clearing for surgery Encounter Details Date Type Department Care Team ([facility] Contact Info) Description 04/18/2015 Telephone [facility] Cardiology - [address] [place] [address] Broderick Galloway MD [address] [place] [address] [place] [address] Letter for School/Work (clearing for surgery) Social History Tobacco Use Types Packs/Day Years [...] encounter Miscellaneous Notes * Telephone Encounter - Ciro, Mary, RN - 04/18/[address] Chinmay Sheriff's office calling to request a letter from Dr. Galloway clearing patient for Shoulder Surgery. . Mary Tanner RN Letter generated Broderick Galloway MD Signed letter faxed as requested to Dr. Chinmay Sheriff's office # [phone] as requested. Kymberly made aware as well. She confirmed receipt. Mary Tanner RN * Telephone Encounter - Muna Uriostegui - 04/18/2015 1121 EDT Reason for Call: Letter for School/Work Summary/Symptoms: Kymberly from Dr Chinmay Sheriff's office calling to [facility] Please fax to [phone]. Please call with any questions. Muna Uriostegui 04/18/2015 11:28 documented in this encounter Plan of Treatment Upcoming Encounters Date Type Department Care Team (Late st Contact Info) Description 08/08/2024 13:00 EST Office Visit [facility] Gastroenterology - [address] [address] Kera Tatum PA-C [address] [place] [address], [address] [place] [address] documented as of this encounter Visit Diagnoses Not on filedocumented in this encounter Care Teams Family Member Caretaker Relationship Specialty Start Date End Date Gregoria Nicholas MD [address] [place] [address] PCP - General 10/27/12 09/12/18 documented as of this encounter
--- OUTSIDE RECORDS SUMMARY | 2024-03-04 00:28 | XMS_ITS | Encounter Summary ---
Author Organization [facility] Address [address] [place] [address] Care Team Providers Care Anthropologist Name Role Phone Grgeoria Nicholas MD Primary Care Provider [phone] Encounter Details Date Type Department Care Team (Latest Contact Info) Description 05/11/2015 8:34 EDT - 05/11/2015 23:59 EDT Hospital Encounter [address] [address] Unknown, Provider, Discharge Disposition: Home or Self [...] Yes 03/27/2015 documented as of this encounter Medications at [...] or interrupt this medication withour discussing with air carrier inspector Start this medication in one month. [...] Code Departure Means Destination Home or Self Fpc documented in this encounter Plan of Treatment Upcoming Encounters Date Type Department Care Team (Late st Contact Info) Description 08/08/2024 13:00 EST Office Visit [facility] Gastroenterology - [address] [address] Kera Tatum PA-C [address] [place] [address], [address] [place] [address] documented as of this encounter Procedures Procedure Name Priority Date/Time Associated Diagnosis Comments TREADMILL STRESS ECHO WAVEFORM 09/03/2015 15:03 EST STRESS ECHOCARDIOGRAM 09/03/2015 14:43 EST documented in this encounter Results * TREADMILL STRESS ECHO WAVEFORM (09/03/2015 15:03 EST) Anatomical Region Laterality Modality Other 09/03/2015 15:0 3 EST Narrative 09/03/2015 15:33 EST For report of this Waveform, see associated Image Study. ? [facility] Stress ? Test Date: ?2015-09-03 Pat Name: ? CLAUDIA BATISTA ? Department: ? Room: ? Gender: ? M ?Plasterer Apprentice: ?? : ?1955 ? Requested By: JAYDEN HAYES JOAQUÍN Order Number: [id number] ?Reading : ? Interpretive Statements Procedure Note E COMMERCE MANAGER, IMAGING - 09/03/2015 For report of this Waveform, see associated Image Study. [facility] Stress Test Date: 2015-09-03 Pat Name: CLAUDIA BATISTA Department: Room: Gender: M Plasterer Apprentice: : 1955 Requested By: JAYDEN GROVER Order Number: [id number] Messi MD: Interpretive Statements Joaquín Carpenter MD CARDIAC ECHO ORDERAB LES * STRESS ECHOCARDIOGRAM (09/03/2015 14:43 EST) Anatomical Region Laterality Modality Other 09/03/2015 14:4 3 EST Narrative 09/03/2015 16:42 EST *Interpreting Group:* *[facility]* [address] [place] [address] ?? Date of study: 09/03/2015 ?? Stress Echocardiography Gary protocol 2D, limited spectral Doppler, and color Doppler *STUDY CONCLUSIONS* Impressions: ?? Negative for ischemia after maximal exercise with reproduction of symptoms. Summary: 1. Baseline: LV size was normal. LV global systolic function was normal. Normal ?? wall motion; no LV regional wall motion abnormalities. 2. Procedure narrative: Treadmill exercise testing was performed using the Gary ?? protocol. The patient exercised for 9 min 1 sec, to protocol stage 3, to a ?? maximal work rate of 10.2mets. Exercise was terminated due to moderate ?? dyspnea and moderate fatigue. 3. Stress: Maximal heart rate during stress was 145bpm (91% of maximal predicted ?? heart rate). The maximal predicted heart rate was 160bpm.The target heart ?? rate was achieved. The heart rate response to stress was normal. 4. Peak stress: LV size was reduced appropriately. LV global systolic function ?? was appropriately augmented from baseline. Normal wall motion; no LV regional ?? wall motion abnormalities. 5. Stress ECG conclusions: There were no stress arrhythmias or conduction ?? abnormalities. The stress ECG was negative for ischemia. 6. Staged echo: There was no echocardiographic evidence for stress-induced ?? ischemia. *PATIENT PRESENTATION* Height: ? 177.8cm (70in ) S/D Pressure: 168 / 70 Weight: ? 111.8kg (246lb ) BSA: ?2.39m^2 Test start time: ??02:22 PM. Test stop time: ??03:30 PM. REFERRING ?Gregoria Nicholas* ADMITTING ?Joaquín Carpenter ATTENDING ?Joaquín Carpenter ORDERING ? Joaquín Carpenter REFERRING ?Joaquín Carpenter DRILLING ASSISTANT ??Ken Haque [facility] [[email or web address]] MORTGAGE SERVICING SPECIALIST ? Leyda Castaneda FELLOW ? Trevor Tovar PERFORMING ?? [facility], Stress WAREHOUSE ADMINISTRATIVE ASSISTANT ??Regina Bajwa *PROCEDURE DATA* Procedure information: ??Dr. Cipriano Daniel supervised and was readily available during the procedure. This study was interpreted by [facility]. Pertinent images and [...] dyspnea and moderate fatigue. A Transthoracic stress echocardiogram was performed. Images were captured at baseline and peak exercise. Images were obtained using a [employer] IE33 4 cardiac ultrasound machine. ECG tracings were obtained using the [employer] 4 machine. A 22 gauge IV was inserted by Leyda Castaneda RN. 3.5ml of Pre-image Intravenous contrast (Definity) was administered by Ken MIRANDA RD to enhance delineation of left ventricular endocardial borders. Prior to administration at least two (2) contiguous segments of the left ventricular border were not visualized. A total of 1 vial(s) of Pre imaging Definity was used.3.5ml of Post image Intravenous contrast (Definity) was administered by Leyda Castaneda RN to enhance delineation of left ventricular endocardial borders. Prior to administration at least two (2) contiguous segments of the left ventricular border were not visualized. A 22 gauge IV was removed by Leyda Castaneda RN. ??Study completion: ??The patient tolerated the procedure well. There were no complications. *INDICATIONS AND HISTORY* Indications: ?? Chest Pain, Unspecified R07.9. History: ?PMH: ??59 year old male with CAD s/p stents to the LAD and RCA in 2009 and . Presents for follow up of CAD. Had one episode of chest discomfort radiating to neck while he was cutting brush. Relieved with two Nitro. and rest. Pain free at this time. ??Risk factors: ??Family history of coronary artery disease. Hypertension. Diabetes mellitus. Dyslipidemia. ??Medications: ??MIS inhibitors. Aspirin. Beta blockers. Calcium channel blockers. Insulin. Lipid-lowering therapy. Oral diabetic agent. Plavix. *CARDIAC ANATOMY* Baseline ECG: ??Normal. Stress protocol: + +---+ + +------+ + Stage ? HR BP (mmHg) ?? ST/T ? Rhythm Symptoms ? + +---+ + +------+ + Baseline supine ?? 101 168/70 (103) Normal ST-T ? NSR ?? None ? + +---+ + +------+ + Baseline standing 102 164/62 (96) ? + +---+ + +------+ + Stage 1; 1.7mph, 119 170/66 (101) ? 10degrees; 3 min ? + +---+ + +------+ + Stage 2; 2.5mph, 135 174/60 (98) ? 12degrees; 3 min ? + +---+ + +------+ + Stage 3; 3.4mph, 145 194/54 (101) Horizontal ? Throat discomfort, 14degrees; 3 min ? depression, 0.5 ? moderate dyspnea, ? -1.0 mm V5 and ? moderate fatigue, ? V6, V3, V4 ? Pain level is 1 ? out of 10. ? + +---+ + +------+ + Immediate post ?? 127 ? Horizontal ? stress ? depression, ? 0.5-1.0 mm in V5 ? and V6, V3, V4 ? + +---+ + +------+ + Recovery; 1 min ?? 119 ? None ? + +---+ + +------+ + Recovery; 3 min ?? 103 174/64 (101) ? + +---+ + +------+ + Recovery; 6 min ?? 93 164/62 (96) ? + +---+ + +------+ + Recovery; 9 min ?? 94 ? Return to ? baseline ? + +---+ + +------+ + * Stress results: ?? Maximal heart rate during stress was 145bpm (91% of maximal predicted heart rate). The maximal predicted heart rate was 160bpm.The target heart rate was achieved. The heart rate response to stress was normal. There was a normal resting blood pressure with an appropriate response to stress. The rate-pressure product for the peak heart rate and blood pressure was 89233to Hg/min. The patient experienced no chest pain during stress (throat discomfort towards end of study). Functional capacity was average. Stress ECG: ??There were no stress arrhythmias or conduction abnormalities. The stress ECG was negative for ischemia. Baseline: - LV size was normal. - LV global systolic function was normal. - Normal wall motion; no LV regional wall motion abnormalities. - Doppler (spectral and color flow) interrogation performed but pulmonary artery ??pressure could not be accurately determined. Wall motion score: 1.00. Peak stress: - LV size was reduced appropriately. - LV global systolic function was appropriately augmented from baseline. - Normal wall motion; no LV regional wall motion abnormalities. - Pulmonary systolic pressure obtained via spectral and color flow Doppler was ??in the range of 20mm Hg Wall motion score: 1.00. Stress echo results: ? There was no echocardiographic evidence for stress-induced ischemia. I have personally reviewed the images and have reviewed and edited the reported findings. Electronically signed by Cipriano Daniel MD 09/03/2015 16:42 Procedure Note Cipriano Daniel MD - 09/03/2015 *Interpreting Group:* *[facility]* [address] [place] [address] Date of study: 09/03/2015 Stress Echocardiography Gary protocol 2D, limited spectral Doppler, and color Doppler *STUDY CONCLUSIONS* Impressions: Negative for ischemia after maximal exercise withreproduction of symptoms. Summary: 1. Baseline: LV size was normal. LV global systolic function was normal.Normal wall motion; no LV regional wall motion abnormalities. 2. Procedure narrative: Treadmill exercise testing was performed using theBruce protocol. The patient exercised for 9 min 1 sec, to protocol stage 3,to a maximal work rate of 10.2mets. Exercise was terminated due to moderate dyspnea and moderate fatigue. 3. Stress: Maximal heart rate during stress was 145bpm (91% of maximalpredicted heart rate). The maximal predicted heart rate was 160bpm.The targetheart rate was achieved. The heart rate response to stress was normal. 4. Peak stress: LV size was reduced appropriately. LV global systolicfunction was appropriately augmented from baseline. Normal wall motion; no LVregional wall motion abnormalities. 5. Stress ECG conclusions: There were no stress arrhythmias or conduction abnormalities. The stress ECG was negative for ischemia. 6. Staged echo: There was no echocardiographic evidence for stress-induced ischemia. *PATIENT PRESENTATION* Height: 177.8cm (70in ) S/D Pressure: 168 / 70 Weight: 111.8kg (246lb ) BSA: 2.39m^2 Test start time: 02:22 PM. Test stop time: 03:30 PM. REFERRING Gregoria Nicholas* ADMITTING Jayden, Joaquín ATTENDING Jayden, Joaquín ORDERING Joaquín Carpenter REFERRING Joaquín Carpenter DRILLING ASSISTANT Ken Haque RDCS MORTGAGE SERVICING SPECIALIST Leyda Castaneda FELLOW Trevor Tovar PERFORMING [facility], Stress WAREHOUSE ADMINISTRATIVE ASSISTANT Aydee Regina *PROCEDURE DATA* Procedure information: Dr. Cipriano Daniel supervised and was readilyavailable during the procedure. This study was interpreted by [facility]. Pertinent images [...] using the Bruceprotocol. The patient exercised for 9 min 1 sec, to protocol stage 3, to a maximalwork rate of 10.2mets. Exercise was terminated due to moderate dyspnea andmoderate fatigue. A Transthoracic stress echocardiogram was performed. Images were captured at baseline and peak exercise. Images were obtained using [employer] IE33 4 cardiac ultrasound machine. ECG tracings were obtained using the[employer] Cash-scribe 4 machine. A 22 gauge IV was inserted by Leyda Castaneda RN. 3.5ml ofPre-image Intravenous contrast (Definity) was administered by Ken MIRANDA RDCS to enhance delineation of left ventricular endocardial borders. Prior to administration at least two (2) contiguous segments of the leftventricular border were not visualized. A total of 1 vial(s) of Pre imaging Definitywas used.3.5ml of Post image Intravenous contrast (Definity) was administeredby Leyda Castaneda RN to enhance delineation of left ventricular endocardial borders. Prior to administration at least two (2) contiguous segments ofthe left ventricular border were not visualized. A 22 gauge IV was removed byLeyda Castaneda RN. Study completion: The patient tolerated the procedure well.There were no complications. *INDICATIONS AND HISTORY* Indications: Chest Pain, Unspecified R07.9. History: PMH: 59 year old male with CAD s/p stents to the LAD and RCAin 2009 and . Presents for follow up of CAD. Had one episode of chestdiscomfort radiating to neck while he was cutting brush. Relieved with two Nitro. andrest. Pain free at this time. Risk factors: Family history of coronary artery disease. Hypertension. Diabetes mellitus. Dyslipidemia. Medications: MIS inhibitors. Aspirin. Beta blockers. Calcium channel blockers. Insulin. Lipid-lowering therapy. Oral diabetic agent. Plavix. *CARDIAC ANATOMY* Baseline ECG: Normal. Stress protocol: + +---+ + +------+ + Stage HR BP (mmHg) ST/T Rhythm Symptoms + +---+ + +------+ + Baseline supine 101 168/70 (103) Normal ST-T NSR None + +---+ + +------+ + Baseline standing 102 164/62 (96) + +---+ + +------+ + Stage 1; 1.7mph, 119 170/66 (101) 10degrees; 3 min + +---+ + +------+ + Stage 2; 2.5mph, 135 174/60 (98) 12degrees; 3 min + +---+ + +------+ + Stage 3; 3.4mph, 145 194/54 (101) Horizontal Throatdiscomfort, 14degrees; 3 min depression, 0.5 moderatedyspnea, -1.0 mm V5 and moderatefatigue, V6, V3, V4 Pain level is1 out of 10. + +---+ + +------+ + Immediate post 127 Horizontal stress depression, 0.5-1.0 mm in V5 and V6, V3, V4 + +---+ + +------+ + Recovery; 1 min 119 None + +---+ + +------+ + Recovery; 3 min 103 174/64 (101) + +---+ + +------+ + Recovery; 6 min 93 164/62 (96) + +---+ + +------+ + Recovery; 9 min 94 Return to baseline + +---+ + +------+ + * Stress results: Maximal heart rate during stress was 145bpm (91% ofmaximal predicted heart rate). The maximal predicted heart rate was 160bpm.Thetarget heart rate was achieved. The heart rate response to stress was normal.There was a normal resting blood pressure with an appropriate response to stress.The rate-pressure product for the peak heart rate and blood pressure [id number] Hg/min. The patient experienced no chest pain during stress (throatdiscomfort towards end of study). Functional capacity was average. Stress ECG: There were no stress arrhythmias or conduction abnormalities.The stress ECG was negative for ischemia. Baseline: - LV size was normal. - LV global systolic function was normal. - Normal wall motion; no LV regional wall motion abnormalities. - Doppler (spectral and color flow) interrogation performed but pulmonaryartery pressure could not be accurately determined. Wall motion score: 1.00. Peak stress: - LV size was reduced appropriately. - LV global systolic function was appropriately augmented from baseline. - Normal wall motion; no LV regional wall motion abnormalities. - Pulmonary systolic pressure obtained via spectral and color flow Dopplerwas in the range of 20mm Hg Wall motion score: 1.00. Stress echo results: There was no echocardiographic evidence for stress-induced ischemia. I have personally reviewed the images and have reviewed and edited thereported findings. Electronically signed by Cipriano Daniel MD 09/03/2015 16:42 Joaquín Carpenter MD CARDIAC ECHO ORDERAB LES documented in this encounter Visit Diagnoses Not on filedocumented in this encounter Care Teams Anthropologist Relationship Specialty Start Date End Date Gregoria Nicholas MD [address] [place] [address] PCP - General 10/27/12 09/12/18 documented as of this encounter
--- OUTSIDE RECORDS SUMMARY | 2024-03-04 00:28 | XMS_ITS | Encounter Summary ---
Author Organization [facility] Address [address] [place] [address] Care Team Providers Care Urgent Care Technician Name Role Phone Gregoria Nicholas MD Primary Care Provider [phone] Reason for Visit * Reason Onset Date Comments Returning Call 02/29/2016 Sina's call Encounter Details Date Type Department Care Team ([facility] Contact Info) Description 02/29/2016 Telephone [facility] Cardiology - [address] [place] [address] Broderick Galloway MD [address] [place] [address] Returning Call (Sina's call) Social History Tobacco Use Types Packs/Day Years [...] encounter Miscellaneous Notes * Telephone Encounter - Sina Alvarez - 02/29/2016 1521 EDT Patient scheduled to see Dr. Goyo Galloway on 03/11 at 9:00 * Telephone Encounter - Nadine Wing - 02/29/2016 1514 EDT Reason for Call: Returning Call (Sina's call) Summary/Symptoms: Returning Sina's call. Nadine Wing 02/29/2016 15:14 documented in this encounter Plan of Treatment Upcoming Encounters Date Type Department Care Team (Late st Contact Info) Description 08/08/2024 13:00 EST Office Visit [facility] Gastroenterology - [address] [address] Kera Tatum PA-C [address] [facility], [facility], [address] [place] [id number] documented as of this encounter Visit Diagnoses Not on filedocumented in this encounter Care Teams Urgent Care Technician Relationship Specialty Start Date End Date Gregoria Nicholas MD [address] [place] [address] PCP - General 10/27/12 09/12/18 documented as of this encounter
--- OUTSIDE RECORDS SUMMARY | 2024-03-04 00:28 | XMS_ITS | Encounter Summary ---
Author Organization [facility] Address [address] [place] [address] Care Team Providers Care Clip On Sunglasses Inspector Name Role Phone Gregoria Nicholas MD Primary Care Provider [phone] Reason for Visit * Reason Onset Date Comments Letter for School/Work 02/18/2016 cleared t o work Encounter Details Date Type Department Care Team ([facility] Contact Info) Description 02/18/2016 Telephone [facility] Cardiology - [address] [place] [address] Broderick Galloway MD [address] [place] [address] Letter for School/Work (cleared to work) Social History Tobacco Use Types Packs/Day Years [...] No 02/10/2016 Cognitive Status Response Date of Assess ent Because of a physical, menta l, or emotional condition, do you have serious difficulty concentrating, remembering, or making decisions? (5 years old or older) No 02/10/2016 documented as of this encounter Miscellaneous Notes * Telephone Encounter - Mary Tanner RN - 02/20/2016 1303 EDT Patient notified. Letter done. Faxed to [phone] as requested. He was satisfied with this. He questioned if disability paperwork was received. Advised there has been no sign of it yet. Will watch for it and keep him posted. Mary Tanner RN * Telephone Encounter - Kizzy Rincon RN - 02/18/2016 0958 EDT Pt would like a letter to clear him to go back to work Thanks * Telephone Encounter - Felisa Mesa - 02/18/2016 0840 EDT Pt requesting a letter be sent to his employer clearing him to work. Pt requesting this be done khari as he is awaiting to return to his full capacity. documented in this encounter Plan of Treatment Upcoming Encounters Date Type Department Care Team (Late st Contact Info) Description 08/08/2024 13:00 EST Office Visit [facility] Gastroenterology - [address] [id number] Kera Tatum PA-C [address] [place] [address], [facility], [address] [place] [address] documented as of this encounter Visit Diagnoses Not on filedocumented in this encounter Care Teams Clip On Sunglasses Inspector Relationship Specialty Start Date End Date Gregoria Nicholas MD [address] [place] [address] PCP - General 10/27/12 09/12/18 documented as of this encounter
--- OUTSIDE RECORDS SUMMARY | 2024-03-04 00:28 | XMS_ITS | Encounter Summary ---
Author Organization [facility] Address [address] [place] [address] Care Team Providers Care Cvor Nurse Name Role Phone Joaquín Carpenter MD Primary Care Provider [phone] Reason for Visit * Reason Comments Follow-up 6 month FUR Encounter Details Date Type Department Care Team (Latest Contact Info) Description 04/09/2011 15:10 EDT Office Visit [facility] Cardiology - [place] [address] [place] [address] Broderick Galloway MD [address] [place] [address] Coronary atherosclerosis of tribe coronary artery (Primary Dx) Social History Tobacco [...] Progress Notes * Broderick Galloway MD - 04/09/2011 6166 EDT Subjective: Patient is a 55 y.o. male who presents for follow-up of cad. Patient reports doing well. He denies chest pain on exertion and dyspnea on exertion. He describes his symptoms as not changed. He has been compliant with his medications. Medications side effects include none Past Medical History Diagnosis Date ??? IL (myocardial infarction) 1992, 2003 ??? CAD (coronary [...] or interrupt this medication withour discussing with visual display manager Start this medication in one month. First [...] HDL 52 09/08/2009 LDLBASE 110 09/08/2009 Assessment: aRul Trujillo is a 55 y.o. year old male who presents with cad stable at present Plan: Cont present rx documented in this encounter Plan of Treatment Upcoming Encounters Date Type Department Care Team (Late st Contact Info) Description 08/08/2024 13:00 EST Office Visit [facility] Gastroenterology - [facility] [address] [place] [address] Kera Tatum PA-C [address] [facility], [facility], [address] [place] [phone] documented as of this encounter Visit Diagnoses Diagnosis Coronary atherosclerosis of tribe coronary artery- Primary documented in this encounter Historical Medications * This list may reflect changes made after this encounter. Medication Sig Dispensed Refills Start Date End Date glimepiride (AMARYL) 2 mg tablet Take 2 mg by mouth every morning. 10/07/2011 added in this encounter Care Teams Cvor Nurse Relationship Specialty Start Date End Date Joaquín Carpenter MD [address] [place] [address] PCP - General 09/04/09 10/26/12 documented as of this encounter
--- OUTSIDE RECORDS SUMMARY | 2024-03-04 00:28 | XMS_ITS | Encounter Summary ---
Author Organization [facility] Address [address] [place] [address] Care Team Providers Care Telecommunication Engineer Name Role Phone Gregoria Nicholas MD Primary Care Provider [phone] Reason for Visit * Reason Onset Date Comments Results 12/12/2015 Labs of 11/06/15 Encounter Details Date Type Department Care Team ([facility] Contact Info) Description 12/12/2015 Telephone [facility] Cardiology - [address] [place], [place] [phone] Mary Tanner, RN Results (Labs of 11/06/15) Social History Tobacco Use Types Packs/Day Years [...] Telephone Encounter - Mary Tanner, JANNY - 12/12/2015 1512 EDT Called patient to [...] a big difference. Will update Dr. Sheets. Mary Tanner, RN documented in this encounter Plan of Treatment Upcoming Encounters Date Type Department Care Team (Late st Contact Info) Description 08/08/2024 13:00 EST Office Visit [facility] Gastroenterology - [address] [address] Kera Tatum PA-C [address] [facility], [facility], [address] [place] [address] documented as of this encounter Visit Diagnoses Not on filedocumented in this encounter Care Teams Telecommunication Engineer Relationship Specialty Start Date End Date Gregoria Nicholas MD [address] [place] [address] PCP - General 10/27/12 09/12/18 documented as of this encounter
--- OUTSIDE RECORDS SUMMARY | 2024-03-04 00:28 | XMS_ITS | Encounter Summary ---
Author Organization [facility] Address [address] [place] [address] Care Team Providers Care Industrial Registered Nurse Name Role Phone Gregoria Nicholas MD Primary Care Provider [phone] Reason for Visit * Reason Comments Coronary Artery Disease Hypertension Hyperlipidemia Fatigue * Follow Up (Routine/Next Available) - Closed Specialty Diagnoses / Procedures Referred By Claire jacques Referred To Contact Cardiology Diagnoses NSTEMI (non-ST elevated myocardial infarction) ([facility]) Broderick Galloway MD [address] [place] [address] Broderick Galloway MD [address] [place] [address] Referral ID Status Reason Start Date Expiration Date V isits Requested Visits Authorized [id number] Closed Specialty Services Required 02/12/2016 1 1 Encounter Details Date Type Department Care Team (Latest Contact Info) Description 03/11/2016 9:00 EDT Office Visit [facility] [place] [address] Broderick Galloway MD [address] [place] [address] Atherosclerosis of [place] coronary artery of [place] heart without angina pectoris (Primary Dx) Social [...] 03/11/2016900 EDT Height 175.3 cm (5' 9) 03/11/2016 09 EDT Body Mass Index 35.29 03/11/2016900 EDT [...] Yes 03/11/2016 documented as of this encounter Progress Notes * Broderick Galloway MD - 03/11/2016 0915 EDT [...] ??? Diverticulitis ??? Hyperlipidemia ??? Hypertension ??? [place] (myocardial infarction) 1992, 2003 ??? Recurrent infections [...] 13:00 EST Office Visit [facility] - [address] [address] Kera Tatum PA-C [address] [place] [address], [address] [place] [address] documented as of this encounter Visit Diagnoses Diagnosis Atherosclerosis of [place] coronary artery of [place] heart without angina pectoris- Primary documented in this encounter Care Teams Industrial Registered Nurse Relationship Specialty Start Date End Date Gregoria Nicholas MD [address] [place] [address] PCP - General 10/27/12 09/12/18 documented as of this encounter
--- OUTSIDE RECORDS SUMMARY | 2024-03-04 00:28 | XMS_ITS | Encounter Summary ---
Author Organization [facility] Address [address] [place] [address] Care Team Providers Care Supervisor Lens Generating Name Role Phone Gregoria Nicholas MD Primary Care Provider Reason for Visit * Reason Comments Coronary Artery Disease Hypertension Hyperlipidemia Encounter Details Date Type Department Care Team (Latest Contact Info) Description 11/01/2013 9:10 EDT Office Visit [facility] Cardiology - [address] [place] [address] Broderick Galloway MD [address] [place] [address] Coronary atherosclerosis of unspecified type of vessel, [place] or graft (Primary Dx) Social History Tobacco [...] EDT Height 176.5 cm (5' 9.5) 11/01/2013 0900 EDT Body Mass Index 35.2 11/01/2013 0900 EDT documented in this encounter Functional Status Cognitive Status Response Date of Assessm ent Because of a physical, menta l, or emotional condition, do you have serious difficulty concentrating, remembering, or making decisions? (5 years old or older) Yes 09/09/2009 documented as of this encounter Discharge Diagnoses Diagnosis 414.00 CORONARY ATHEROSCLER UNSPEC VESSEL[ICD-9-CM] documented in this encounter Progress Notes * Broderick Galloway MD - 11/01/2013 0908 EDT Subjective: Patient is a 57 y.o. male who presents for follow-up of cad. Patient reports doing well. He denies chest pain on exertion and dyspnea on exertion. He describes his symptoms as not changed. He has been compliant with his medications. Medications side effects include none Past Medical History Diagnosis Date ??? [place] [...] or interrupt this medication withour discussing with public health staff nurse Start this medication in one month. [...] Info) Description 08/08/2024 13:00 EST Office Visit [facility] Gastroenterology - [facility] [address] [place], [place] [address] Kera Tatum PA-C [address] [facility] [place], [address] [place] [phone] documented as of this encounter Visit Diagnoses Diagnosis Coronary atherosclerosis of unspecified type of vessel, [place] or graft- Primary documented in this encounter Discontinued Medications Medication Sig Discontinue Reason Start Date End Da te simvastatin (ZOCOR) 80 mg tablet Take 80 mg by mouth at bedtime. Patient Stopped Taking 11/01/2013 documented as of this encounter Historical Medications * This list may reflect changes made after this encounter. Medication Sig Dispensed Refills Start Date End Date rosuvastatin (CRESTOR) 40 mg tablet Take 1 Tablet by mouth daily. added in this encounter Care Teams Supervisor Lens Generating Relationship Specialty Start Date End Date Gregoria Nicholas MD [address] [place] [address] PCP - General 10/27/12 09/12/18 documented as of this encounter
--- OUTSIDE RECORDS SUMMARY | 2024-03-04 00:28 | XMS_ITS | Encounter Summary ---
Author Organization [facility] Address [address] [place] [address] Care Team Providers Care Manifest Clerk Name Role Phone Joaquín Carpenter MD Primary Care Provider [phone] Reason for Visit * Reason Comments Coronary Artery Disease Encounter Details Date Type Department Care Team ([facility] Contact Info) Description 04/13/2012 11:20 EDT Office Visit [facility] Cardiology - [address] [place] [address] Broderick Galloway MD [address] [place] [address] [place] [address] Coronary artery disease (Primary Dx) Social History Tobacco Use Types [...] as of this encounter Progress Notes * rBoderick Galloway MD - 08/31/2012 1204 EST RE: NAME: RAUL BATISTA : 1955 PROGRESS/FOLLOWUP NOTE - 04/13/2012 [place] [address] Cope: I am writing in regards to Raul Batista. Briefly, he is a 56-year-old patient of mine with known coronary disease, status post multiple percutaneous interventions. The last of these occurred in April of 2010. Since that time, the patient has done [...] MD - Job ID: SM Doc ID: [id number] Ext Doc ID: [id number] cc: Main Cope MD * True Greene MD - 04/13/2012 6721 EDT Subjective: Patient is a 56 y.o. [...] his most recent HbA1C was 9.8 at [facility]. With the Lantus, his BS is so much better and he lost 10 lb. He is off of his statin due to elevated LFT's and [facility] Review of Systems A ten point [...] CV regimen. - Check FLP at the [facility] in May, 2012. Depending on his LDL- he could get started on Crestor. Previously he was on Zocor 80 mg and had some transaminase elevation which was stopped few mo ago. - Encouraged further exercise and weight loss. documented in this encounter Plan of Treatment Upcoming Encounters Date Type Department Care Team (Late st Contact Info) Description 08/08/2024 13:00 EST Office Visit [facility] Gastroenterology - [address] [address] Kera Tatum PA-C [address] [facility], [facility], [address] [place] [address] documented as of this encounter Visit Diagnoses Diagnosis Coronary artery disease- Primary Coronary atherosclerosis of unspecified type of vessel, [place] or graft documented in this encounter Discontinued Medications Medication Sig Discontinue Reason Start Date End Da te SIMVASTATIN (ZOCOR ORAL) Take 40 mg by mouth at bedtime. Discontinued by another clinician 04/13/2012 glimepiride (AMARYL) 4 mg tablet Take 4 mg by mouth daily. Discontinued by another clinician 04/13/2012 citalopram (CELEXA) 40 mg tablet Take 40 mg by mouth daily. Patient Stopped Taking 04/13/2012 documented as of this encounter Historical Medications * This list may reflect changes made after this encounter. Medication Sig Dispensed Refills Start Date End Date insulin glargine (LANTUS) 100 unit/mL injection Inject 30 Units into the skin 2 times daily. added in this encounter Care Teams Manifest Clerk Relationship Specialty Start Date End Date Joaquín Carpenter MD [address] [place] [address] PCP - General 09/04/09 10/26/12 documented as of this encounter
--- OUTSIDE RECORDS SUMMARY | 2024-03-04 00:28 | XMS_ITS | Encounter Summary ---
Author Organization [facility] Address [address] [place] [address] Care Team Providers Care Disk Grinder Name Role Phone Gregoria Nicholas MD Primary Care Provider [phone] Reason for Visit * Reason Comments Coronary Artery Disease Encounter Details Date Type Department Care Team ([facility] Contact Info) Description 11/06/2015 9:00 EDT Office Visit [facility] Cardiology - [address] [place] [address] Broderick Galloway MD [address] [place] [address] Shortness of breath (Primary Dx); Atherosclerosis of [place] coronary artery of [place] heart without angina pectoris [I25.10] Discharge Disposition: Auto Discharge Social History Tobacco Use Types Packs/Day Years [...] encounter Discharge Diagnoses Diagnosis R06.02 Shortness of breath-R06.02[ICD-10-CM] I25.10 Atherosclerotic heart disease of [place] coronary artery without angina pectoris-I25.10[ICD-10-CM] documented in this encounter Discharge Disposition Disposition Code Departure Means Destination Auto Discharge documented in this encounter Progress Notes * Broderick Galloway MD - 11/06/2015 0910 EDT Subjective: Patient is a 59 y.o. male who presents for follow-up of CAD. Patient reports doing well. He denies chest pain on exertion and dyspnea on exertion. He describes his symptoms as not changed. 2 episodesof upper body/ neck pain associated w/ severe dyspnea and weakness He has been compliant with his medications. Medications side effects include none Past Medical History Diagnosis Date ??? [place] (myocardial infarction) 1992, 2003 ??? CAD (coronary [...] or interrupt this medication withour discussing with couture alterations dressmaker Start this medication in one month. First [...] Info) Description 08/08/2024 13:00 EST Office Visit [facility] Gastroenterology - [address] [address] Kera Tatum PA-C [address] [facility], [facility], [address] [place] [address] documented as of this encounter Results * HEMAGRAM (11/06/2015 9:19 EDT) WBC 8.44 4.0 - 10.4 K/cmm 11/06/2015 11:15 EDT [facility] RBC 5.09 4.36 - 5.78 M/cmm 11/06/2015 11:15 T [facility] Hemoglobin 14.2 13.8 - 17.3 gm/dl 11/06/2015 11:15 T [facility] HCT 41.7 39.5 - 50.2 % 11/06/2015 11:15 [facility] MCV 82 81 - 95 fl 11/06/2015 11:15 [facility] MCH 27.9 27.6 - 33.0 pg 11/06/2015 11:15 EDT [facility] MCHC 34.1 32.8 - 36.4 gm/dl 11/06/2015 11:15 EDT [facility] RDW-CV 12.4 11.8 - 14.1 % 11/06/2015 11:15 EDT [facility] RDW-SD 37.2 36.5 - 45.9 fl 11/06/2015 11:15 EDT [facility] PLT 299 141 - 377 K/cmm 11/06/2015 11:15 EDT [facility] MPV 10.8 9.5 - 12.7 fl 11/06/2015 11:15 EDT [facility] Blood specimen (specimen) BLOOD SPECIMEN / Unknown 11/06/2015 9:19 EDT 11/06/2015 10:59 EDT Broderick Galloway MD HEMATOLOGY & PF4 ORD ERABLES [facility] [address] [place] [address] documented in this encounter Visit Diagnoses Diagnosis Shortness of breath- Primary Atherosclerosis of [place] coronary artery of [place] heart without angina pectoris [I25.10] documented in this encounter Care Teams Disk Grinder Relationship Specialty Start Date End Date Gregoria Nicholas MD [address] [place] [address] PCP - General 10/27/12 09/12/18 documented as of this encounter
--- OUTSIDE RECORDS SUMMARY | 2024-03-04 00:28 | XMS_ITS | Encounter Summary ---
Author Organization [facility] Address [address] [place] [address] Care Team Providers Care Oil Well Services Supervisor Name Role Phone Gregoria Nicholas MD Primary Care Provider [phone] Reason for Visit * Reason Comments Coronary Artery Disease Encounter Details Date Type Department Care Team (Latest Contact Info) Description 11/02/2014 9:00 EDT Office Visit [facility] Cardiology - [address] [place] [address] Broderick Galloway MD [address] [place] [address] Coronary atherosclerosis of unspecified type of vessel, [place] or graft (Primary Dx) Social History Tobacco [...] Progress Notes * Broderick Galloway MD - 11/02/2014 0949 EDT [facility] CARDIOLOGY PROGRESS / FOLLOWUP NOTE - 11/02/2014 Gregoria Nicholas MD [facility] [address] [place] [address] Dear Gregoria: I am writing in regards to Raul Trujillo. I saw him today in followup. From a cardiac standpoint, heis doing very well with an excellent functional capacity. His lipids demonstrate excellent control.His electrolytes are within normal limits with a [...] Broderick Galloway MD 09 05 AM - Brodreick Galloway MD cn Dictation ID: [id number] cc: Gregoria Nicholas MD, [facility] [address], [place] [address] * Broderick Galloway MD - 11/02/2014 0902 EDT Subjective: Patient [...] or interrupt this medication withour discussing with fitness leader Start this medication in one month. First [...] 08/08/2024 13:00 EST Office Visit [facility] Gastroenterology - [address] [address] Kera Tatum PA-C [address] [place] [address], [address] [place] [address] documented as of this encounter Visit Diagnoses Diagnosis Coronary atherosclerosis of unspecified type of vessel, [place] or graft- Primary documented in this encounter Historical Medications * This list may reflect changes made after this encounter. Medication Sig Dispensed Refills Start Date End Date aspirin 325 mg tablet Take 325 mg by mouth daily 02/12/2016 added in this encounter Care Teams Oil Well Services Supervisor Relationship Specialty Start Date End Date Gregoria Nicholas MD [address] [place] [address] PCP - General 10/27/12 09/12/18 documented as of this encounter
--- OUTSIDE RECORDS SUMMARY | 2024-03-04 00:28 | XMS_ITS | Encounter Summary ---
Author Organization [facility] Address [address] [place] [address] Care Team Providers Care Director Payment Name Role Phone Joaquín Carpenter MD Primary Care Provider [phone] Reason for Visit * Reason Onset Date Comments Paperwork request 08/25/2012 for surgery Returning Call 08/25/2012 Encounter Details Date Type Department Care Team ([facility] Contact Info) Description 08/25/2012 Telephone [facility] Cardiology - [place] [address] Broderick Galloway MD [address] [place] [address] [place] [address] Paperwork request (for surgery); Returning Call Social History Tobacco Use Types [...] Encounter - Mary Tanner RN - 09/02/2012 0951 EST Clearance Letter faxed to Dr. Main Cope's office: [phone]/ [phone]. Mary Tanner RN * Telephone Encounter - Mary Tanner RN - 08/31/2012 1130 EST Letter dictated Broderick Galloway MD * Telephone Encounter - Crissy Clifton - 08/27/2012 1016 EST The patient is calling the nurse back. He gave the fax number to 's office. [phone] * Telephone Encounter - Mary Tanner RN - 08/26/2012 1224 EST Patient called to say he's scheduled for Right shoulder surgery with Dr. Main Cope in [place], [place] on 09/22/12. Dr. Cope will need a letter from Dr. Galloway that states he's okay to have the surgery and okay to go off Plavix. * Telephone Encounter - Crissy Clifton - 08/25/2012 1443 EST The patient is having shoulder surgery on 09.22.[address]Andrew Cope will need a letter faxed to himstating the patient is okay to have the surgery and okay to go off of his Plavix. documented in this encounter Plan of Treatment Upcoming Encounters Date Type Department Care Team (Late st Contact Info) Description 08/08/2024 13:00 EST Office Visit [facility] Gastroenterology - [address] [address] Kera Tatum PA-C [address] [facility], [facility], [address] [place] [address] documented as of this encounter Visit Diagnoses Not on filedocumented in this encounter Care Teams Director Payment Relationship Specialty Start Date End Date Joaquín Carpenter MD [address] [place] [id number] PCP - General 09/04/09 10/26/12 documented as of this encounter
--- OUTSIDE RECORDS SUMMARY | 2024-03-04 00:29 | XMS_ITS | Encounter Summary ---
Author Organization [facility] Address [address] [place] [address] Care Team Providers Care Jacker Name Role Phone Joaquín Carpenter MD Primary Care Provider [phone] Reason for Visit * Reason Onset Date Comments Other 04/10/2010 Returned Adrienne 's call Other 04/11/2010 returned adrienne 's call Encounter Details Date Type Department Care Team ([facility] Contact Info) Description 04/10/2010 Telephone [facility] Cardiology - [address] [place], [place] [id number] Broderick Galloway MD [address] [place] [address] [place] [address] Other (Returned Adrienne's call); Other (returned adrienne's call) Social History Tobacco Use Types Packs/Day Years Used Date Smoking Tobacco: Former Cigarettes Comments:quit 17 yrs ago Alcohol Use Standard [...] encounter Miscellaneous Notes * Telephone Encounter - Adrienne Bauman - 04/11/2010 0919 EDT There was a script for albuterol here and making sure the patient didn't need it and patient statedthat he didn't. Destroyed script. documented in this encounter Plan of Treatment Upcoming Encounters Date Type Department Care Team (Late st Contact Info) Description 08/08/2024 13:00 EST Office Visit [facility] Gastroenterology - [address] [address] Kera Tatum PA-C 111 [facility], [address] [place] [address] documented as of this encounter Visit Diagnoses Not on filedocumented in this encounter Care Teams Jacker Relationship Specialty Start Date End Date Joaquín Carpenter MD [address] [place] [address] PCP - General 09/04/09 10/26/12 documented as of this encounter
--- OUTSIDE RECORDS SUMMARY | 2024-03-04 00:29 | XMS_ITS | Encounter Summary ---
Author Organization 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 Name Role Phone Joaquín Carpenter MD Primary Care Provider [phone] Reason for Visit * Reason Comments Follow-up 6 month Encounter Details Date Type Department Care Team ([facility] Contact Info) Description 10/08/2010 15:00 EDT Office Visit [facility] Cardiology - [place] [place] [address] Broderick Galloway MD [address] [place] [address] Cor athrscl-uns vessel (Primary Dx) Social History Tobacco Use Types [...] Progress Notes * Broderick Galloway MD - 10/08/2010 1501 EDT Subjective: Patient is a 54 y.o. male who presents for follow-up of cad. Patient reports no chest pain. He denies chest pain on exertion, dyspnea on exertion and orthopnea. He describes his symptoms as improved. He has been compliant with his medications. Medications side effects include none Past Medical History Diagnosis Date ??? [place] (myocardial infarction) 1992, 2003 ??? CAD (coronary [...] LFT anomalies Due for CT scan at [place] Objective: BP 130/60 Pulse 69 Ht 175.3 [...] 08/08/2024 13:00 EST Office Visit [facility] Gastroenterology - [address] [id number] Kera Tatum PA-C [address] [place] [address], [address] [place] [phone] documented as of this encounter Visit Diagnoses Diagnosis Coronary atherosclerosis of unspecified type of vessel, [place] or graft- Primary documented in this encounter Discontinued Medications Medication Sig Discontinue Reason Start Date End Da te aspirin 325 mg tablet Take 1 Tab by mouth daily. Aspirin 325 mg daily for 30 days then aspirin 81 mg daily for lifetime Error 09/07/2009 10/08/2010 Prasugrel (EFFIENT) 10 mg Tab tablet Take 1 Tab by mouth daily. Take for one month, then resume Plavix. Error 09/10/2009 10/08/2010 albuterol (PROVENTIL HFA, VENTOLIN HFA) 90 mcg/Actuation inhaler Inhale 2 Puffs as directed every 4 hours. Error 04/09/2010 10/08/2010 albuterol (PROVENTIL HFA, VENTOLIN HFA) 90 mcg/Actuation inhaler Inhale 2 Puffs as directed every 4 hours. Error 04/09/2010 10/08/2010 documented as of this encounter Historical Medications * This list may reflect changes made after this encounter. Medication Sig Dispensed Refills Start Date End Date aspirin chewable 81 mg tablet Take 81 mg by mouth daily. 02/10/2016 added in this encounter Care Teams Coring Machine Operator Relationship Specialty Start Date End Date Joaquín Carpenter MD [address] [place] [address] PCP - General 09/04/09 10/26/12 documented as of this encounter
--- OUTSIDE RECORDS SUMMARY | 2024-03-04 00:29 | XMS_ITS | Encounter Summary ---
Author Organization [facility] Address [address] [place] [address] Care Team Providers Care Fiber Technologist Name Role Phone Joaquín Carpenter MD Primary Care Provider [phone] Encounter Details Date Type Department Care Team (Latest Contact Info) Description 09/07/2009 7:22 EST - 09/08/2009 12:32 EST Hospital Encounter [facility] Cardiac/Telemetry Unit [address], [place] [address] Broderick Galloway MD [address] [place] [address] [place] [address] Discharge Disposition: Home or Self Care Social History Tobacco Use Types Packs/Day Years Used Date Smoking Tobacco: Former Comments:quit 17 yrs ago Alcohol Use Standard [...] decisions? (5 years old or older) Yes 09/07/2009 documented as of this encounter Discharge Summaries * Burke Brooks MD - 09/07/20092033 EST Discharge Summary Chief Complaint/Reason for Admission: Exertional chest pain and on 08/23/09 a + CL-ETT that demonstrated a sm-mod intense reversible inferior wall defect Principal/Final Diagnosis: USAP S/p PCI MARY X3 RCA Principal Procedure: C Date: 09/07/2009 Secondary Procedures: PCI MARY X3 [...] Course: 53 yo man with hx prior [place], coronary stents X2 2003, HTN, HLP, DM [...] mouth daily. Increased dose of amlodipine 30 Tab11 ??? aspirin 325 mg tablet Take 1 Tab by mouth daily. Aspirin 325 mg daily for 30 days then aspirin 81 mg daily for lifetime 30 Tab 0 ??? clopidogrel (PLAVIX) 75 mg tablet Take 1 Tab by mouth daily. Plavix 75 mg daily uninterrupted for a minimum of one year Do not stop or interrupt this medication withour discussing with waterproof material folder 30 Tab 11 ??? metformin (GLUCOPHAGE) 1,000 mg tablet Take by mouth 2 times daily with meals. Restart Metformin Thu Take as previously prescribed Metformin 1000 mg in the morning and Metformin 500 mg each evening Indications: TYPE 2 DIABETES MELLITUS 30 Tab 0 Diagnostic Studies: DIAGNOSTIC STUDY RESULTS: [facility] 09-07-2009 Cardiac: LM:Nl LAD:50% mid, 60% distal Cx:40% distal RCA: 90% distal, 70% mid EF:60% LVEDP: 10 There was no gradient across the aortic valve. No wall motion abnormalities and no mitral regurgitation. Diagnostic Summary and Plan: CAD 2 VD RCA is culprit LV Function Nl Interventional Procedure: The RCA was treated with a 3.0 OTW maverick followed by a 3.5 [place], and [place] Voyager Stent delivery required 2 nataly wires. A 3.0x15, 3.5x12 and 3.5x[address] and post dilated with a [...] 09/08/2009 documented in this encounter Discharge Instructions * Discharge Instructions* Marleni Maldonado NP - 09/07/2009 18:36 EST Post Procedure Instructions: You had a percutaneous [...] or if you have not been diagnosed with a serious, abnormal hearth rhythm. For leg incisions, for 48-72 hours after the PCI, avoid climbing stairs and other activity that involves a lot of leg bending. If you have not had a myocardial infarction (heart attack), it is likely you will be able to return to all activities involving moderate exertion 48 hours after the PCI. Please discuss returning tosevere exertion (running, manual labor) with your physician [...] entered the hospital. Prior to leaving the hospital, please review all of your medications with the nurse at the time of discharge. Do not wait for mail order medications to come. Make sure you can take your medications immediately upon going home. Stent Medications: Because you had a stent placed, you are going to be taking two daily medications to keep your stentopen: aspirin and clopidogrel (Plavix). If you develop any rashes, stomach irritation or bleeding while taking these medications, immediately contact your waterproof material folder. Do not stop taking aspirin or Plavix without discussing this with your doctor. Appointments: See Broderick Nance MD In 6 weeks. [facility] will notify you of appointment date/time See Dr. JOAQUÍN CARPENTER MD in 2 weeks. Please call for an appointment. Cardiac Rehab Referral: You have been referred for cardiac rehabilitation at your local hospital. We expect that the cardiac rehabilitation program will contact you directly regarding a visit to the program. If you do not hear from the cardiac program within two weeks, you should contact your physician's office regarding a referral. We will contact your hospital and your primary care physician to let them know you are agood candidate for outpatient cardiac rehabilitation. Follow-up Services [...] of your arteries. Over time, this causes arteries to become blocked. The blockage slows the blood [...] more serious problems. A combination of diet, exercise and medication can help lower your blood pressure. [...] Refills Start Date End Date lisinopril (PRINIVIL, ZESTRIL) 5 mg tablet Take 1 Tablet by mouth daily. METOPROLOL SUCCINATE ORAL Take 150 mg by mouth daily. Takes 3-50 mg. Tablets daily nitroGLYCERIN (NITROSTAT) 0.[address] 1 Tablet under the tongue as needed for Chest Pain. AMITRIPTYLINE HCL (AMITRIPTYLINE ORAL) Take 20 mg by mouth at bedtime. Takes 2-10 mg tablets at bedtime 12/02/2018 amlodipine (NORVASC) 5 mg tablet Take 1 Tab by mouth daily. Increased dose of amlodipine 30 Tab 11 09/07/2009 09/11/2009 aspirin 325 mg tablet Take 1 Tab by mouth daily. Aspirin 325 mg daily for 30 days then aspirin 81 mg daily for lifetime 30 Tab 0 09/07/2009 10/08/2010 clopidogrel (PLAVIX) 75 mg tablet Take 1 Tab by mouth daily. Plavix 75 mg daily uninterrupted for a minimum of one year Do not stop or interrupt this medication withour discussing with waterproof material folder 30 Tab 11 09/07/2009 09/10/2009 metformin (GLUCOPHAGE) 1,000 mg tabletIndications:typ e 2 diabetes mellitus Take by mouth 2 times daily with meals. Restart Metformin Thu Take as previously prescribed Metformin 1000 mg in the morning and Metformin 500 mg each evening, Indications: TYPE 2 DIABETES MELLITUS 30 Tab 0 09/07/2009 09/10/2009 SIMVASTATIN (ZOCOR ORAL) Take 40 mg by mouth at bedtime. 04/13/2012 documented as of this encounter Ordered Prescriptions Prescription Sig Dispensed Refills Start Date End Da te metformin (GLUCOPHAGE) 1,000 mg tabletIndications:type 2 diabetes mellitus Take by mouth 2 times daily with meals. Restart Metformin Thu Take as previously prescribed Metformin 1000 mg in the morning and Metformin 500 mg each evening, Indications: TYPE 2 DIABETES MELLITUS 30 Tab 0 09/07/2009 09/10/2009 clopidogrel (PLAVIX) 75 mg tablet Take 1 Tab by mouth daily. Plavix 75 mg daily uninterrupted for a minimum of one year Do not stop or interrupt this medication withour discussing with waterproof material folder 30 Tab 11 09/07/2009 09/10/2009 aspirin 325 mg tablet Take 1 Tab by mouth daily. Aspirin 325 mg daily for 30 days then aspirin 81 mg daily for lifetime 30 Tab 0 09/07/2009 10/08/2010 amlodipine (NORVASC) 5 mg tablet Take 1 Tab by mouth daily. Increased dose of amlodipine 30 Tab 11 09/07/2009 09/11/2009 documented in this encounter Discharge Disposition Disposition Code Departure Means Destination Home or Self Care documented in this encounter Progress Notes * Marleni Maldonado CONCRETE PIPE MAKING MACHINE OPERATOR - 09/11/2009 1029 EST Post Interventional Cardiology CONCRETE PIPE MAKING MACHINE OPERATOR CAD S/p PCI MARY X2 prox & mid LAD & BMS X1 distal LAD 09-10-09 09/07/09 PCI MARY X3 RCA Reinforced teaching with pt about MARY and the importance of dual anitplatelet therapy for a minimumof one year. Teaching done with pt about prasugrel 10 mg daily uninterrupted for 30 days than immediately resume plavix 75 mg daily uninterrupted for a minimum of one year with asa 325 mg for 30 daysthen asa 81 mg daily for liftetime- Pt verbalized good understanding about the importance of prasugrel daily uninterrupted for 30 days then restart plavix immediately daily uninterrupted for min. 1 year with asa. Pt receptive and very interested in participating in cardiac rehab near his home in [facility]. Had given pt written material on 09-07-09 . * Jenae Del Toro RN - 09/08/2009 0001 EST D: See Post-Cath Flowsheet.Pt denied any pain. A: RN to monitor groin site for hematoma/bleeding, tele for arrhythmias, CSMTs in affected extremities, I/O for adequate hydration, and other parameters as required per patient's condition. R: Will continue to monitor/assess and document per protocol. 0655 Right groin dressing CDI,no hematoma.2+ pedal pulses. * Marleni Maldonado NP - 09/07/2009 1724 EST Post Interventional Cardiology CONCRETE PIPE MAKING MACHINE OPERATOR CAD s/p PCI MARY X3 RCA S- No chest pressure/pain/sob. Deny right groin/ leg numbness or pain. Deny lightheadedness/dizzyness. Teaching done with pt about MARY and the importance of uninterrupted Plavix 75 mg daily for a minimum of one year and aspirin 325 mg daily for 30 days then aspirin 81 mg daily lifetime- pt verbalized good understanding about the importance of uninterrupted plavix and aspirin therapy. Risk factor modification discussed with pt. Cardiac rehab encouraged and the pt is receptive and would want to participate at [facility] ([facility]); written materials left with patient. O- Last HgbA1c 6.4 % 07/17/09 per PCP note Cholesterol 175, LDL 103 HDL 43 done at the [place] 02/2009 - on simvastatin 80 mg daily Telemetry: NSR No arrythmia Hr 65-72/m Blood pressure 114/65, pulse 68, temperature 36.6 ??C (97.9 ??F), temperature source Tympanic, resp. rate 18, height 1.778 m (5' 10), weight [...] 1000 mg in am & 500 mg pm-reviewed with pt 8) con't outpt amitriptylline 20 mg daily 9) engine monitor overnight - check for arrythmia, monitor right groin for bleed/hematoma 10) F/u with Dr. Broderick Galloway in 6 weeks 11) Cardiac Rehab - encouraged pt receptive and would want to participate at [facility] * Broderick Galloway MD - 09/07/2009 0000 EST September 07, 2009 Joaquín Carpenter MD [facility] [address] [place] [address] Carpenter: I am writing in [...] inferior ischemia. Today we brought Raul the slab puller where coronary arteriography demonstrated moderate luminal irregularities in his left coronary system. None of these appeared to be flow-limiting. The right coronary artery did have patent stents in his proximal and midsegments. Distally before the PDA there wasa 90% focal stenosis. Upstream from this at [...] PM by Broderick Galloway MD / Confirmation: [id number] Dictation ID: [id number] cc:Joaquín Carpenter MD documented in this encounter H&P Notes * Kindra Smalls - 09/07/2009 0942 EST Cardiology [...] mm ST depression inferolateral with small to moderate JVM reversible inferior wall defect. Patient is on correction plavix and asa. He has no planned surgeries or bleeding issues. He states several years ago he has had a intervention to is coronaries [facility]. PMH PSH Past Medical History Diagnosis Date ??? [place] (myocardial infarction) x2 ??? CAD (coronary artery [...] stress concerting for plaque rupture. Plan : [facility] KINDRA SMALLS MD 09/07/2009 9:42 AM documented in this encounter Procedure Notes * Inpatient, Physician - 09/14/2009 1547 ESTAssociated Order(s): ECG REPORT - SCANNED * Inpatient, Physician - 09/14/2009 1547 ESTAssociated Order(s): ECG REPORT - SCANNED * Inpatient, Physician - 09/12/2009 1208 ESTAssociated Order(s): CARDIAC CATHERIZATION REPORT - SCANNED * Inpatient, Physician - 09/12/2009 1208 ESTAssociated Order(s): ECG REPORT - SCANNED * Broderick Galloway MD - 09/07/2009 1213 EST PRELIMINARY CARDIAC CATHETERIZATION REPORT NOT FINAL ATTENDING: Nilesh Fellow/CONCRETE PIPE MAKING MACHINE OPERATOR: Shantell Indication: A ( 53 ) year [...] 3.0 OTW maverick followed by a 3.5 [place], and [place] Voyager Stent delivery required 2 nataly wires. A 3.0x15, 3.5x12 and 3.5x[address] and post dilated with a 3.5 mm Quantum. This yielded a good result and no complications. Plan: (See Also Post Procedure Orders) Aspirin 325 mg po qd x 30 day, then 81 qd indefinitely. Aspirin should never be stopped for more than 48 hours without consulting a waterproof material folder. Plavix 75 mg po qd x 2 years Lopressor Succinate 50mg Double norvasc D/c Imdur Simvistatin 20 mg po qd--check fasting lipids and LFT? s and adjust to LDL < 70. Post Interventional Conclusion/Physician order for admission status: ? The patient can not go home same day due to > 60 minute distance from PCI center or other co-morbidity that warrants bedded outpatient, overnight stay. documented in this encounter Miscellaneous Notes * Scanned Note-Null - Inpatient, Physician - 09/12/2009 1319 EST * Scanned Note-Null - Inpatient, Physician - 09/12/2009 1208 EST * Scanned Note-Null - Inpatient, Physician - 09/12/2009 1208 EST * Scanned Note-Null - Inpatient, Physician - 09/12/2009 1208 EST * Plan of Care - Cheli Kulkarni [...] independently. They left via wheelchair with eachother. * Plan of Care - Jason. Rin Guillen RN - 09/07/2009 1300 EST Problem: HOSPITAL ORIENTATION/SAFETY Goal: Oriented To Hospital Environment Outcome: Ongoing D: Patient awake in bed, has no c/o pain at this time. VSS and assessment complete. Right groin CDIwith positive pp's A: Admission database completed. Oriented to m5. R: Patient has no further needs at this time. Family with patient and call light within reach, willCTM Joesph Guillen, JANNY * Scanned Note-Null - Inpatient, Physician - 09/07/2009 0729 EST * Scanned Note-Null - Inpatient, Physician - 09/07/2009 0729 EST documented in this encounter Plan of Treatment Upcoming Encounters Date Type Department Care Team (Late st Contact Info) Description 08/08/2024 13:00 EST Office Visit [facility] Gastroenterology - [address] [address] Kera Tatum PA-C [address] [place] [address], [facility], [address] [place] [phone] documented as of this encounter Procedures Procedure Name Priority Date/Time Associated Diagnosis Comments ECG REPORT - SCANNED 09/14/2009 15:47 EST ECG REPORT - SCANNED 09/14/2009 15:47 EST ECG REPORT - SCANNED 09/12/2009 12:08 EST INVASIVE CARDIOLOGY REPORT-SCANNED 09/12/2009 12:08 EST GLUCOSE, GLUCOMETER Routine 09/08/2009 1 1:16 EST GLUCOSE, GLUCOMETER Routine 09/08/2009 8 :08 EST COMPLETE BLOOD COUNT Routine 09/08/2009 7:38 EST BUN Routine 09/08/2009 7:38 EST CREATININE Routine 09/08/2009 7:38 EST CK MB WITH TOTAL CK Routine 09/08/2009 7 :38 EST LIPID PROFILE (INCLUDES CHOLESTEROL, TRIGLYCERIDES, HDL, LDL) Routine 09/08/2009 7:38 EST ELECTROLYTES Routine 09/08/2009 7:38 EST GLUCOSE, GLUCOMETER Routine 09/07/2009 2 0:25 EST GLUCOSE, GLUCOMETER Routine 09/07/2009 1 7:10 EST EKG 12-LEAD Routine 09/07/2009 12:27 EST PTT STAT 09/07/2009 8:45 EST PROTIME STAT 09/07/2009 8:45 EST COMPLETE BLOOD COUNT STAT 09/07/2009 8:45 EST BUN STAT 09/07/2009 8:45 EST CREATININE STAT 09/07/2009 8:45 EST ELECTROLYTES STAT 09/07/2009 8:45 EST GLUCOSE, GLUCOMETER Routine 09/07/2009 8 :35 EST EKG 12-LEAD Routine 09/07/2009 8:04 EST documented in this encounter Results * ECG REPORT - SCANNED (09/14/2009 15:47 EST) 09/14/2009 15:4 7 EST Narrative Procedure Note Inpatient, Physician - 09/14/2009 15:47 EST Physician Inpatient MD PROCEDURE/MINOR S URGICAL ORDERABLES * ECG REPORT - SCANNED (09/14/2009 15:47 EST) 09/14/2009 15:4 7 EST Narrative Procedure Note Inpatient, Physician - 09/14/2009 15:47 EST Physician Inpatient MD PROCEDURE/MINOR S URGICAL ORDERABLES * ECG REPORT - SCANNED (09/12/2009 12:08 EST) 09/12/2009 12:0 8 EST Narrative Procedure Note Inpatient, Physician - 09/12/2009 12:08 EST Physician Inpatient MD PROCEDURE/MINOR S URGICAL ORDERABLES * CARDIAC CATHERIZATION REPORT - SCANNED (09/12/2009 12:08 EST) 09/12/2009 12:0 8 EST Narrative Procedure Note Inpatient, Physician - 09/12/2009 12:08 EST Physician Inpatient MD PROCEDURE/MINOR S URGICAL ORDERABLES * (ABNORMAL) GLUCOSE, GLUCOMETER (09/08/2009 11:16 EST) Glucose, Fingerstick 148(H) 70 - 100 mg/dl [facility] [place] ID [id number] Test Performed by Nursing Services [facility] 09/08/2009 11:1 6 EST 09/08/2009 11:24 EST Broderick Galloway MD CHEMISTRY & BLOOD GA S ORDERABLES Performing Organization Address City/[facility] Co de Phone Number [facility] [address] [place] [address] * (ABNORMAL) GLUCOSE, GLUCOMETER (09/08/2009 8:08 EST) Glucose, Fingerstick 202(H) 70 - 100 mg/dl [facility] [place] [id number] Test Performed by Nursing Services [facility] 09/08/2009 8:08 EST 09/08/2009 8:13 EST Broderick Galloway MD CHEMISTRY & BLOOD GA S ORDERABLES Performing Organization Address [facility] Co de Phone Number [facility] [address] [place] [address] * CK MB WITH TOTAL CK (09/08/2009 7:38 EST) CK 113 0 - 250 U/L [facility] MB 2.3 0 - 5.0 ng/ml [facility] CK-MB Index Not calculated , normal MB. 0 - 2.5 [facility] Blood specimen (specimen) 09/08/2009 7:38 EST 09/08/2009 7:51 EST Lara Stinson MD CHEMISTRY & BLOOD GA S ORDERABLES Performing Organization Address [facility] de Phone Number [facility] [address] [place] [address] * (ABNORMAL) LIPID PROFILE (INCLUDES CHOLESTEROL, TRIGLYCERIDES, HDL, LDL) (09/08/2009 7:38 EST) Cholesterol 198 mg/dl [facility] Comment: Desirable:<200 Borderline High:200-239 High:>le=729 Triglycerides 178(H) 35 - 160 mg/dl [facility] HDL 52 mg/dl [facility] Comment: Low:<40 High(Desirable):>or=60 LDL, Calculated 110 mg/dl [facility] Comment: Optimal:<100 Above optimal:100-129 Borderline High:130-159 High:160-189 Very High:>xn=151 Chol/HDL Ratio 3.8 [facility] Fasting? Unknown [facility] Blood specimen (specimen) 09/08/2009 7:38 EST 09/08/2009 7:51 EST Lara Stinson MD CHEMISTRY & BLOOD GA S ORDERABLES Performing Organization Address [facility] Co de Phone Number [facility] [address] [place] [address] * CREATININE (09/08/2009 7:38 EST) Creatinine 0.79 0.7 - 1.5 mg/dl [facility] GFR, Calculated >60 ml/min/1.7 3m2 [facility] Blood specimen (specimen) 09/08/2009 7:38 EST 09/08/2009 7:51 EST Lara Stinson MD CHEMISTRY & BLOOD GA S ORDERABLES Performing Organization Address [facility] Co de Phone Number [facility] [address] [place] [address] * BUN (09/08/2009 7:38 EST) BUN 11 10 - 26 mg/dl [facility] Blood specimen (specimen) 09/08/2009 7:38 EST 09/08/2009 7:51 EST Lara Stinson MD CHEMISTRY & BLOOD GA S ORDERABLES Performing Organization Address [facility] Co de Phone Number [facility] [address] [place] [address] * ELECTROLYTES (09/08/2009 7:38 EST) Sodium 137 136 - 145 mEq/L [facility] Potassium 4.6 3.5 - 5.0 mEq/L [facility] Chloride 100 96 - 110 mEq/L [facility] CO2 28 24 - 32 mEq/L [facility] Blood specimen (specimen) 09/08/2009 7:38 EST 09/08/2009 7:51 EST Lara Stinson MD CHEMISTRY & BLOOD GA S ORDERABLES Performing Organization Address City/[facility] Co de Phone Number [facility] [address] [place] [address] * HEMAGRAM (09/08/2009 7:38 EST) WBC 9.35 4.0 - 10.4 K/cmm [facility] [...] LAB PLT 251 141 - 320 K/cmm [facility] RDW-CV 13.0 11.8 - 14.1 % [facility] Blood specimen (specimen) 09/08/2009 7:38 EST 09/08/2009 7:51 EST Lara Stinson MD HEMATOLOGY & PF4 ORD ERABLES Performing Organization Address City/[facility] Co de Phone Number [facility] [address] [place] [address] * (ABNORMAL) GLUCOSE, GLUCOMETER (09/07/2009 20:25 EST) Glucose, Fingerstick 116(H) 70 - 100 mg/dl [facility] [place] ID [id number] Test Performed by Nursing Services [facility] 09/07/2009 20:2 5 EST 09/07/2009 20:47 EST Broderick Galloway MD CHEMISTRY & BLOOD GA S ORDERABLES Performing Organization Address [facility] Co de Phone Number [facility] [address] [place] [address] * (ABNORMAL) GLUCOSE, GLUCOMETER (09/07/2009 17:10 EST) Glucose, Fingerstick 152(H) 70 - 100 mg/dl [facility] [place] ID [id number] Test Performed by Nursing Services [facility] 09/07/2009 17:1 0 EST 09/07/2009 17:26 EST Broderick Galloway MD CHEMISTRY & BLOOD GA S ORDERABLES Performing Organization Address [facility] Co de Phone Number [facility] [address] [place] [address] * PTT (09/07/2009 8:45 EST) PTT 28 20 - 35 secs [facility] Comment:Therapeutic Heparin range: 60-100 seconds Blood specimen (specimen) 09/07/2009 8:45 EST 09/07/2009 8:51 EST Lara Stinson MD HEMATOLOGY & PF4 ORD ERABLES Performing Organization Address City/[facility]/ZIP Co de Phone Number [facility] [address] [place] [address] * PROTIME (09/07/2009 8:45 EST) Pro Time 13.2 12.2 - 15.5 secs [facility] Comment:Note new prothrombin time reference range effective 09 I.N.R. 0.9 0.9 - 1.1 Ratio [facility] Comment: Moderate Intensity Coumadin INR = 2.0-3.0 Adjustments in anticoagulant therapy dose should be based upon the INR and NOT the Pro Time. Blood specimen (specimen) 09/07/2009 8:45 EST 09/07/2009 8:51 EST Lara Stinson MD HEMATOLOGY & PF4 ORD ERABLES Performing Organization Address City/[facility] Co de Phone Number [facility] [address] [place] [address] * HEMAGRAM (09/07/2009 8:45 EST) Pathologist [facility] WBC 6.67 4.0 - 10.4 K/cmm [facility] RBC 4.84 4.36 - 5.78 M/cmm [facility] Hemoglobin 14.7 13.8 - 17.3 gm/dl [facility] HCT 41.8 39.5 - 50.2 % [facility] MCV 86 81 - 95 fl [facility] MCH 30.3 27.6 - 33.0 pg [facility] MCHC 35.0 32.8 - 36.4 gm/dl [facility] PLT 230 141 - 320 K/cmm [facility] RDW-CV 13.2 11.8 - 14.1 % [facility] Blood specimen (specimen) 09/07/2009 8:45 EST 09/07/2009 8:51 EST Lara Stinson MD HEMATOLOGY & PF4 ORD ERABLES Performing Organization Address [facility] de Phone Number [facility] [address] [place] [address] * (ABNORMAL) CREATININE (09/07/2009 8:45 EST) Pathologist [facility] Creatinine 0.69(L) 0.7 - 1.5 mg/dl [facility] GFR, Calculated >60 ml/min/1.7 3m2 [facility] Blood specimen (specimen) 09/07/2009 8:45 EST 09/07/2009 8:51 EST Lara Stinson MD CHEMISTRY & BLOOD GA S ORDERABLES Performing Organization Address [facility] Phone Number [facility] [address] [place] [address] * BUN (09/07/2009 8:45 EST) BUN 14 10 - 26 mg/dl [facility] Blood specimen (specimen) 09/07/2009 8:45 EST 09/07/2009 8:51 EST Lara Stinson MD CHEMISTRY & BLOOD GA S ORDERABLES Performing Organization Address [facility] Phone Number [facility] [address] [place] [address] * ELECTROLYTES (09/07/2009 8:45 EST) Sodium 137 136 - 145 mEq/L [facility] Potassium 4.3 3.5 - 5.0 mEq/L [facility] Chloride 102 96 - 110 mEq/L [facility] CO2 28 24 - 32 mEq/L [facility] Blood specimen (specimen) 09/07/2009 8:45 EST 09/07/2009 8:51 EST Lara Stinson MD CHEMISTRY & BLOOD GA S ORDERABLES Performing Organization Address [facility] Phone Number [facility] [address] [place] [address] * (ABNORMAL) GLUCOSE, GLUCOMETER (09/07/2009 8:35 EST) Glucose, Fingerstick 174(H) 70 - 100 mg/dl [facility] [place] [id number] Test Performed by [facility] 09/07/2009 8:35 EST 09/07/2009 8:36 EST Broderick Galloway MD CHEMISTRY & BLOOD GA S ORDERABLES [facility] [address] [place] [address] documented in this encounter Visit Diagnoses Diagnosis CAD (coronary artery disease) Coronary atherosclerosis of unspecified type of vessel, [place] or graft Hyperlipidemia LDL goal < 70 Other and unspecified hyperlipidemia HTN (hypertension) Unspecified essential hypertension documented in this encounter Administered Medications Inactive Administered Medications - up to 3 most recent administrations Medication Order MAR Action Action Date Dose Rate Site amitriptyline (ELAVIL) tablet 25 mg 25 mg, oral, AT BEDTIME, First dose on Thu09/07/09 at 2100, Until Discontinued, Routine Given 09/07/2009 21:00 EST 25 mg amlodipine (NORVASC) tablet 5 mg 5 mg, oral, DAILY, First dose on Thu09/07/09 at 1245, Until Discontinued, Routine Given 09/08/2009 9:00 EST 5 mg aspirin tablet 325 mg 325 mg, oral, DAILY, First dose on Thu09/08/09 at 0900, Until Discontinued, Routine Given 09/08/2009 9:00 EST 325 mg clopidogrel (PLAVIX) tablet 75 mg 75 mg, oral, DAILY, First dose on Thu09/08/09 at 0900, Until Discontinued, Routine Given 09/08/2009 9:00 EST 75 mg lisinopril (PRINIVIL, ZESTRIL) tablet 5 mg 5 mg, oral, DAILY, First dose on Thu09/08/09 at 0900, Until Discontinued, Routine Given 09/08/2009 9:00 EST 5 mg metoprolol XL (TOPROL-XL) tablet 150 mg 150 mg, oral, DAILY, First dose on Thu09/07/09 at 1245, Until Discontinued, Routine Given 09/08/2009 9:00 EST 150 mg sodium chloride 0.9 % (NS) infusion 30 mL/hr, intravenous, CONTINUOUS, Starting on Thu09/07/09 at 0830, Until 09/08/09 at 1506, Routine, Preprocedure New Bag 09/07/2009 8:45 EST 30 mL/hr 30 mL/hr sodium chloride 0.9 % (NS) infusion at 75 mL/hr, intravenous, CONTINUOUS, Starting on Thu09/07/09 at 1245, Until Thu09/07/09 at 1644, Routine New Bag 09/07/2009 12:45 EST 75 mL/hr documented in this encounter Discontinued Medications Medication Sig Discontinue Reason Start Date End Da te ISOSORBIDE MONONITRATE ORAL Take 30 mg by mouth daily. 09/07/2009 METFORMIN HCL (METFORMIN ORAL) Take by mouth daily. 1000mg am,500 mg pm 09/07/2009 clopidogrel (PLAVIX) 75 mg tablet Take 75 mg by mouth daily. 09/07/2009 aspirin 325 mg tablet Take 325 mg by mouth daily. 09/08/2009 AMLODIPINE BESYLATE (AMLODIPINE ORAL) Take 2.5 mg by mouth daily. 09/08/2009 documented as of this encounter Historical Medications * This list may reflect changes made after this encounter. Medication Sig Dispensed Refills Start Date End Date nitroGLYCERIN (NITROSTAT) 0.[address] 1 Tablet under the tongue as needed for Chest Pain. METOPROLOL SUCCINATE ORAL Take 150 mg by mouth daily. Takes 3-50 mg. Tablets daily lisinopril (PRINIVIL, ZESTRIL) 5 mg tablet Take 1 Tablet by mouth daily. AMITRIPTYLINE HCL (AMITRIPTYLINE ORAL) Take 20 mg by mouth at bedtime. Takes 2-10 mg tablets at bedtime 12/02/2018 METFORMIN HCL (METFORMIN ORAL) Take by mouth daily. 1000mg am,500 mg pm 09/07/2009 SIMVASTATIN (ZOCOR ORAL) Take 40 mg by mouth at bedtime. 04/13/2012 AMLODIPINE BESYLATE (AMLODIPINE ORAL) Take 2.5 mg by mouth daily. 09/08/2009 clopidogrel (PLAVIX) 75 mg tablet Take 75 mg by mouth daily. 09/07/2009 aspirin 325 mg tablet Take 325 mg by mouth daily. 09/08/2009 ISOSORBIDE MONONITRATE ORAL Take 30 mg by mouth daily. 09/07/2009 added in this encounter Active and Recently Administered Medications Times are shown in EST. Scheduled Medication Order 09/06/2009 09/07/2009 09/08/2009 amitriptyline (ELAVIL) tablet 25 mg (CANCELED) 25 mg, oral, AT BEDTIME, First dose on Thu09/07/09 at 2100, Until Discontinued, Routine 2100 (Given - Provider: Jason. Rin Guillen RN) amlodipine (NORVASC) tablet 5 mg 5 mg, oral, DAILY, First dose on 09/07/09 at 1245, Until Discontinued, Routine 1245 (Not Given - Provider: Jason. 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) 0900 (Given - Provider: Cheli Kulkarni RN) aspirin tablet 325 mg 325 mg, oral, DAILY, First dose on 09/08/09 at 0900, Until Discontinued, Routine 0900 (Given - Provid er: Cheli Kulkarni RN) clopidogrel (PLAVIX) tablet 75 mg (CANCELED) 75 mg, oral, DAILY, First dose on 09/08/09 at 0900, Until Discontinued, Routine 0900 (Given - Provid er: Cheli Kulkarni RN) lisinopril (PRINIVIL, ZESTRIL) tablet 5 mg (CANCELED) 5 mg, oral, DAILY, First dose on 09/08/09 at 0900, Until Discontinued, Routine 0900 (Given - Provid er: Cheli Kulkarni RN) metoprolol XL (TOPROL-XL) tablet 150 mg (CANCELED) 150 mg, oral, DAILY, First dose on 09/07/09 at 1245, Until Discontinued, Routine 1245 (Not Given - Provider: Jason. 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 Rin Guillen RN) documented in this encounter Orders Medications Ordered That Eagle ht Not Have Been Administered Count Last Ordered Date First Ordered Date acetaminophen (TYLENOL) tablet 650 mg 1 dextrose 50 % solution 12.5 g 1 09/07/2009 glucagon (human recombinant) injection 1 mg 1 09/07/2009 nitroGLYCERIN (NITROSTAT) SL tablet 0.4 mg 1 09/07/2009 simvastatin (ZOCOR) tablet 80 mg 1 09/07/19 10 Lab Orders Without Results Count Last Ordered D ate First Ordered Date POCT GLUCOSE 1 09/07/2009 EKG Orders Without Results Count Last Ordered D ate First Ordered Date EKG 12-LEAD 2 09/07/2009 Diet Count Last Ordered Date First Orde red Date DIET CONSISTENT CARBOHYDRATE 1 09/07/2009 Nursing Count Last Ordered Date First Orde red Date CARDIAC MONITORING 1 09/07/2009 ENCOURAGE FLUIDS 1 09/07/2009 INSERT PERIPHERAL IV 1 09/07/2009 Admission Count Last Ordered Date First Orde red Date NOTIFY PPS OF DISCHARGE COMPLETE 1 09/08/19 10 ADMIT TO OBSERVATION 1 09/07/2009 ADMIT TO OUTPATIENT 1 09/07/2009 NON-TEACHING SERVICE 1 09/07/2009 PPS NOTIFICATION OF PATIENT ARRIVAL ON UNIT 1 09/07/2009 Discharge Count Last Ordered Date First Orde red Date DISCHARGE PATIENT 1 09/08/2009 documented in this encounter Care Teams Fiber Technologist Relationship Specialty Start Date End Date Joaquín Carpenter MD [address] [place] [address] PCP - General 09/04/09 10/26/12 documented as of this encounter
--- OUTSIDE RECORDS SUMMARY | 2024-03-04 00:29 | XMS_ITS | Encounter Summary ---
Author Organization [facility] Address [address] [place] [address] Care Team Providers Care Oral And Maxillofacial Surgery Name Role Phone Joaquín Carpenter MD Primary Care Provider Encounter Details Date Type Department Care Team (Late Contact Info) Description 10/15/2009 Abstract [facility] Cardiology - [facility] [address] [place], [place] [id number] Joaquín Carpenter MD [address] [place] [address] [id number] Social History Tobacco Use Types Packs/Day Years [...] Upcoming Encounters Date Type Department Care Team ([facility] Contact Info) Description 08/08/2024 13:00 EST Office Visit [facility] Gastroenterology - [address] [id number] Kera Tatum PA-C [address] [facility], [address] [place] [address] documented as of this encounter Visit Diagnoses Not on filedocumented in this encounter Care Teams Oral And Maxillofacial Surgery Relationship Specialty Start Date End Date Joaquín Carpenter MD [address] [place] [address] PCP - General 09/04/09 10/26/12 documented as of this encounter
--- OUTSIDE RECORDS SUMMARY | 2024-03-04 00:29 | XMS_ITS | Encounter Summary ---
Author Organization [facility] Address [address] [place] [address] Care Team Providers Care Circular Saw Edge Fuser Name Role Phone Joaquín Carpenter MD Primary Care Provider [phone] Encounter Details Date Type Department Care Team (Late Contact Info) Description 11/23/2009 Abstract [facility] Cardiology - [facility] [address] [place], [place] [id number] Joaquín Carpenter MD [address] [place] [address] [phone] Social History Tobacco Use Types Packs/Day Years [...] Care Team ([facility] Contact Info) Description 08/08/2024 13:00 EST Office Visit [facility] Gastroenterology - [address] [id number] Kera Tatum PA-C [address] [facility], [address] [place] [address] documented as of this encounter Visit Diagnoses Not on filedocumented in this encounter Care Teams Circular Saw Edge Fuser Relationship Specialty Start Date End Date Joaquín Carpenter MD [address] [place] [id number] PCP - General 09/04/09 10/26/12 documented as of this encounter
--- OUTSIDE RECORDS SUMMARY | 2024-03-04 00:29 | XMS_ITS | Encounter Summary ---
Author Organization [facility] Address [address] [place] [address] Care Team Providers Care Property Worker Name Role Phone Joaquín Carpenter MD Primary Care Provider [phone] Reason for Visit * Reason Comments Coronary Artery Disease Encounter Details Date Type Department Care Team (Latest Contact Info) Description 04/09/2010 14:00 EDT Office Visit [facility] Cardiology - [address] [place] [address] Broderick Lozada MD [address] [place] [address] Coronary atherosclerosis of [place] coronary artery (Primary Dx) Social History Tobacco [...] Yes 09/09/2009 documented as of this encounter Ordered Prescriptions Prescription Sig Dispensed Refills Start Date End Da te albuterol (PROVENTIL HFA, VENTOLIN HFA) 90 mcg/Actuation inhaler Inhale 2 Puffs as directed every 4 hours. 1 Inhaler 6 04/09/2010 10/08/2010 albuterol (PROVENTIL HFA, VENTOLIN HFA) 90 mcg/Actuation inhaler Inhale 2 Puffs as directed every 4 hours. 1 Inhaler 6 04/09/2010 10/08/2010 documented in this encounter Progress Notes * Broderick Lozada MD - 04/09/2010 1402 EDT Subjective: Patient is a 54 y.o. male who presents for follow-up of cad. Patient reports . He denies chest pain. He describes his symptoms as not changed.Intermittent dyspnea He has been compliant with his medications. Medications side effects include none Past Medical History Diagnosis Date ??? KS (myocardial infarction) 2003 ??? CAD (coronary artery disease) 09-10-09 [...] or interrupt this medication withour discussing with narrow gauge engineer Start this medication in one month. First [...] mouth daily. Take for one month, then resumePlavix. 30 Tab 0 ??? lisinopril (PRINIVIL, ZESTRIL) [...] ? Reactive airways Plan: Cont present rx Radha HAYESI documented in this encounter Plan of Treatment Upcoming Encounters Date Type Department Care Team (Late st Contact Info) Description 08/08/2024 13:00 EST Office Visit [facility] Gastroenterology - [address] [address] Kera Tatum PA-C [address] [place] [address], [address] [place] [address] documented as of this encounter Procedures Procedure Name Priority Date/Time Associated Diagnosis Comments EXERCISE TOLERANCE TEST Routine 04/12/2010 12:26 EDT Coronary atherosclerosis of [place] coronary artery documented in this encounter Results * EXERCISE TOLERANCE TEST (04/12/2010 12:26 EDT) Anatomical Region Laterality Modality Other 04/12/2010 12:2 6 EDT Narrative 04/17/2010 8:01 EDT ? [facility] ? [address] ??[place] [address] ? [phone] ? [email or web address] ? Final ECG Stress Test Report ? --- PATIENT PRESENTATION --- : 1955 Age: 54 ?Sex: male ? Height: 69 in ??Weight: 247 lb ?BSA: 2.26 Pt Type: OP History: ??54 year old man with known coronary artery disease. ??History of KS 1992 and multiple PCI's, ??most recently in Aug and September 2009. ??Asymptomatic. Presents for post stent evaluation. ??Denies pain at this time. Medications: Calcium channel blockers, Antiplatelets, Oral Diabetic Agents, MIS inhibitors, Beta blockers, Lipid lowering agents, ASA Cardiovascular Risk Factors: ??Diabetes, Family history of CAD, Hypercholesterolemia, Hypertension, Obesity, Past Smoker (quit > 6 mos ago) Prior Revascularization: ?Stents x 3 LAD >6 months ago 08/2009 ? Stents x 2 RCA <6 months ago 09/2009 Reason for Study: CAD Referring Physician: BRODERICK LOZADA MD ??FAX: [phone] ?--- CONCLUSION --- > Normal ECG Stress Test ?--- STRESS ELECTROCARDIOGRAPHY --- BASELINE ECG: NSR- Normal ECG Supine HR: ? 74 ? Supine BP: ??134 / 66 Upright HR: ?77 ? Upright BP: ?154 / 64 STRESS TEST Stress Protocol: Sx Limited Gary Peak HR: ??132 ? Peak BP: ?190 / 40 ?MPHR: ??80% Peak Rate-Pressure Product: [id number] Total Exercise Time: 9 min ? Final Stage: 3 ?Mets: 10.2 Test Stopped Due [...] Interpretation By: ??Johnny Carballo MD - Attending Wrong Address Clerk Finalized on: 04/17/2010 8:01:20 AM This procedure was conducted under the supervision of Ash Cruz MD who was readily available at all points throughout the procedure. Copy Report To: ? Procedure Note Johnny Carballo MD - 04/17/2010 [facility] [address] [place] [address] [phone] [email or web address] Final ECG Stress Test Report --- PATIENT PRESENTATION --- : 1955 Age: 54 Sex: male Height: 69 in Weight: 247 lbBSA: 2.26 Pt Type: OP History: 54 year old man with known coronary artery disease. History ofMI 1992 and multiple PCI's, most recently in Aug and September 2009.Asymptomatic. Presents for post stent evaluation. Denies pain at this time. Medications: Calcium channel blockers, Antiplatelets, Oral DiabeticAgents, MIS inhibitors, Beta blockers, Lipid lowering agents, ASA Cardiovascular Risk Factors: Diabetes, Family history of CAD, Hypercholesterolemia, Hypertension, Obesity, Past Smoker (quit > 6 mosago) Prior Revascularization: Stents x 3 LAD >6 months ago 08/2009 Stents x 2 RCA <6 months ago 09/2009 Reason for Study: CAD Referring Physician: BRODERICK LOZADA MD FAX: [phone] --- CONCLUSION --- > Normal ECG Stress Test --- STRESS ELECTROCARDIOGRAPHY --- BASELINE ECG: NSR- Normal ECG Supine HR: 74 Supine BP: 134 / 66 Upright HR: 77 Upright BP: 154 / 64 STRESS TEST Stress Protocol: Sx Limited Gary Peak HR: 132 Peak BP: 190 / 40 MPHR: 80% Peak Rate-Pressure Product: [id number] Total Exercise Time: 9 min Final Stage: 3 Mets: 10.2 Test Stopped Due To: Fatigue ECG Changes: None Performed By: Meryl Fuller RN Pre-Test Symptom: Asymptomatic Pre-test likelihood of CAD:100% Post-Test Symptom: No chest pain Post-test likelihood of CAD:100% --- STRESS SUMMARY --- 1. CHEST PAIN: None SHORTNESS OF BREATH: None 2. ECG CHANGES: Negative to 80% Max HR 3. EXERCISE CAPACITY FOR AGE: Average 4. Normal heart rate and normal blood pressure response to exercise 5. ARRHYTHMIA: None Stress ECG Interpretation By: Johnny Carballo MD - Attending Wrong Address Clerk Finalized on: 04/17/2010 8:01:20 AM This procedure was conducted under the supervision of Ash Cruz MDwho was readily available at all points throughout the procedure. Copy Report To: Broderick Lozada MD [facility] documented in this encounter Visit Diagnoses Diagnosis Coronary atherosclerosis of [place] coronary artery- Primary documented in this encounter Historical Medications * This list may reflect changes made after this encounter. Medication Sig Dispensed Refills Start Date End Date citalopram (CELEXA) 20 mg tabletIndications:depre ssion Take 40 mg by mouth daily. Indications: DEPRESSION 10/07/2011 added in this encounter Care Teams Property Worker Relationship Specialty Start Date End Date Joaquín Carpenter MD [address] [place] [address] PCP - General 09/04/09 10/26/12 documented as of this encounter
--- OUTSIDE RECORDS SUMMARY | 2024-03-04 00:29 | XMS_ITS | Encounter Summary ---
Author Organization [facility] Address [address] [place] [address] Care Team Providers Care Surfacer Operator Name Role Phone Joaquín Carpenter MD Primary Care Provider [phone] Encounter Details Date Type Department Care Team (Late Contact Info) Description 09/07/2009 Orders Only [facility] Cardiology - [facility] [address] [place] [address] Broderick Lozada MD [address] [place] [address] Social History Tobacco Use Types Packs/Day [...] Yes 09/07/2009 documented as of this encounter Plan of Treatment Upcoming Encounters Date Type Department Care Team (Late Contact Info) Description 08/08/2024 13:00 EST Office Visit [facility] Gastroenterology - [address] [id number] Kera Tatum PA-C [address] [facility], [address] [place] [phone] documented as of this encounter Procedures Procedure Name Priority Date/Time Associated Diagnosis Comments LEFT HEART CATH 09/07/2009 11:00 EST documented in this encounter Results * LEFT HEART CATH (09/07/2009 11:00 EST) Anatomical Region Laterality Modality Other 09/07/2009 11:0 0 EST Impressions 09/19/2009 15:57 EST ?[facility] ? [address] ??[place] [address] ? [phone] ? [email or web address] ?Final Interventional Cardiovascular Catheterization Report ?--- SUMMARY OF RESULTS --- > The patient has significant (>70%) lesions in ??1 coronary vessel(s). > The culprit artery was the RCA. Prior to PCI there was 90% stenosis in the culprit artery. > Following PCI as described in the procedure section, there was 0% residual stenosis and normal flow in the RCA. > ??We accomplished complete revascularization. ??There are severe stenoses remaining in 0 coronary vessels or grafts. Pt has moderate residual disease in LAD and LCX which will be followed clinically. > Interventional cardiac catheterization was performed without any significant complications. ? --- PLAN --- >Aspirin is recommended indefinitely and should not be stopped without consultation with a kosher dietary service supervisor. Clopidogrel (plavix) is recommended for a minimum of 12 months after the drug eluting stent procedure. ? --- PATIENT PRESENTATION --- The patient is a 53 year old male. ??The primary indication for PCI was PCI for high risk Non-STEMI or unstable angina. Additional indications include: angina, Positive Nuclear Stress Test, Unstable angina. The patient has the following Comorbidities/Risk Factors: ??Dyslipidemia, Hypertension, Prior CO, Prior PCI. Diabetes Oral. : 1955 ?Sex: male ?Height: 177.8cm ?Weight: 109.1kg ?BSA: 2.26 Allergies: ??NKA Pre-Animal Control Supervisor Values: ??HCT: 41.8 ?Platelets: 230.0 ?Creatinine:.6 ? --- PROCEDURE --- CARDIAC ANATOMY AND FUNCTION Natives with > 70% stenosis: RCA Dominance: ??Right LM Stenosis: 0% INTERVENTIONAL CARDIAC PROCEDURE PCI is indicated for this significant ACC/AHA class B2 lesion in the ??distal RCA vessel. A 6F KR3H guide catheter was chosen for the intervention . ??This catheter gave good engagement in the ostium of the LM. The lesion in the ??distal RCA was crossed successfully with an 0.014 inch VersionEye Prowater wire. We then inflated a 3.0 mm diameter of approximately 15 mm length Casselberry in the mid to distal RCA. ?? The maximal inflation pressure was 10-12 cale. ??This was repeated within the entire mid to distal portion. ??We were unable to pass a stent across the mid lesion and then inflated a 3.5 mm diameter of approximately 15 mm length Voyager balloon in the ??mid RCA. ?? The maximal inflation pressure was >16 cale. ?? This also was repeated within the entire mid to distal segment at high pressures. ??We then used another Prowater as a nataly wire to recross the lesion and over this wire were able to inflate a 3.5 mm diameter of approximately 12 mm length Black Earth drug-eluting stent in the distal RCA. ?? The maximal inflation pressure was >16 cale. ??The stent was successfully deployed. We then inflated a 3.5 mm diameter of approximately 30 mm length Black Earth drug- eluting stent in the ??mid RCA. ?? The maximal inflation pressure was >16 cale. The stent was successfully deployed. We then inflated a 3.5 mm diameter of approximately 15 mm length Quantum [place] balloon in the mid to distal RCA. ?? The maximal inflation pressure was >16 cale. We then inflated a 3.0 mm diameter of approximately 12 mm length Black Earth drug- eluting stent in the ??distal RCA. ?? The maximal inflation pressure was >16 cale. ?? The stent was successfully deployed. The stent balloon was then inflated at the stent overlap. ??The maximal inflation pressure was >16 cale. The right common femoral artery was normal in size and had no significant angiographic lesions. The femoral artery sheath was placed within the common femoral artery. The Access location was: ?? > Right Femoral Artery The Largest Arterial Sheath/Cath placed was ??6F The Hemostasis method used was: ? [employer] SELECTED MEDICATION ADMINISTERED DURING THE PROCEDURE: ??FENTANYL, VERSED ? (Please see PhysioLog report for complete list of medications used.) Referring Physician: BRODERICK LOZADA MD Referring Physician 2: JOAQUÍN CARPENTER MD Interventional Attending: Broderick Lozada MD Interventional Fellow: Lara Stinson MD As the attending, supervising kosher dietary service supervisor, I was present for the entire procedure. Signature date/time: 09/19/2009 15:57:33 ? Narrative 09/19/2009 15:57 EST ?[facility] ? [address] [place] [address] ??[place] [address] ? [phone] ? [email or web address] ?Final Diagnostic Cardiovascular Catheterization Report ?--- SUMMARY OF RESULTS --- > The ventriculogram revealed normal LV function. > Diagnostic cardiac catheterization was performed without any significant complications. > The patient has significant (>70%) lesions in ??1 coronary vessel: ??RCA > The LV end diastolic pressure was normal. ? --- PLAN --- > After careful review of the diagnostic images and findings, PCI is indicated electively based upon the indications, risk factors and anatomy described above. ? --- PATIENT PRESENTATION --- The patient is a 53 year old male with the following indications: ??angina, Positive Nuclear Stress Test, Unstable angina . The patient has the following Comorbidities/Risk Factors: ??Dyslipidemia, Hypertension, Prior CO, Prior PCI. Diabetes Oral. : 1955 ?Sex: male ?Height: 177.8cm ?Weight: 109.1kg ?BSA: 2.26 Allergies: ??NKA Pre-Animal Control Supervisor Values: ??HCT: 41.8 ?Platelets: 230.0 ?Creatinine:.6 ? --- PROCEDURE --- DIAGNOSTIC CARDIAC PROCEDURE Under local anesthesia, the right femoral artery was accessed with a 6F sheath using modified Seldinger technique. ??A 6F JL4 catheter was introduced and positioned in the ascending aorta. Left heart cath was performed according to standard procedure. ??A 6F Pigtail was used to cross the aortic valve and measure pressures in the left ventricle. Selective coronary arteriography was then performed using a 6F JL4 catheter to engage the left coronary artery and a 6F JR4 catheter to engage the right coronary artery. ??Right and left coronary arteriography were performed in multiple views. Using standard procedures, left ventriculography was performed. A 6F Pigtail was used to cross the aortic valve and measure pressures in the left ventricle. ??An injection of Isovue contrast was used for left ventriculography in the 30 degree SAENZ projection. The Access location was: ?? > Right Femoral Artery The Largest Arterial Sheath/Cath placed was ??6F The Hemostasis method used was: ? [employer] Paulina [employer] SELECTED MEDICATION ADMINISTERED DURING THE PROCEDURE: ??FENTANYL, VERSED ? (Please see PhysioLog report for complete list of medications used.) ?--- RESULTS --- HEMODYNAMICS ??Pressures: ?Site ?Systolic ??Diasto ??Mean ?lic ?LV ?93 ?7 ?LV ?96 ?9 ?Ao ?99 ?64 ?79 ?Ao ?95 ?69 ?82 The left ventricular end diastolic pressure was normal. There was no gradient detected across the aortic valve. LEFT VENTRICULOGRAPHY The left ventricular function was normal. ??There was no mitral regurgitation. FEMORAL ANGIOGRAPHIC FINDINGS The right common femoral artery was normal in size and had no significant angiographic lesions. The femoral artery sheath was placed within the common femoral artery. CORONARY ANGIOGRAPHIC FINDINGS Left Main Artery: The Left Main is normal in size and has no significant angiographic lesions. Left Anterior Descending Artery: The Proximal LAD is normal in size and has mild luminal irregularities. ??The mid and Distal LAD has a 60% stenosis. Circumflex Artery: The Circumflex has a 50% stenosis. Right Coronary Artery: The mid RCA has a 70% lesion and distal RCA has a 90% calcified stenosis. ??Prior stents in the prox RCA are patent. Referring Physician: BRODERICK LOZADA MD Referring Physician 2: JOAQUÍN CARPENTER MD Diagnostic Attending: Broderick Lozada MD Diagnostic Fellow: Lara Stinson MD As the attending, supervising kosher dietary service supervisor, I was present for the entire procedure. Signature date/time: 09/17/2009 2:44:03 PM Procedure Note Broderick Lozada MD - 04/12/2010 [facility] [address] [place] [address] [phone] [email or web address] Final Diagnostic Cardiovascular Catheterization Report --- SUMMARY OF RESULTS --- > The ventriculogram revealed normal LV function. > Diagnostic cardiac catheterization was performed without anysignificant complications. > The patient has significant (>70%) lesions in 1 coronary vessel: RCA > The LV end diastolic pressure was normal. --- PLAN --- > After careful review of the diagnostic images and findings, PCI isindicated electively based upon the indications, risk factors and anatomydescribed above. --- PATIENT PRESENTATION --- The patient is a 53 year old male with the following indications:angina, Positive Nuclear Stress Test, Unstable angina . The patient has the following Comorbidities/Risk Factors: Dyslipidemia, Hypertension, Prior CO, Prior PCI. Diabetes Oral. : 1955 Sex: male Height: 177.8cm Weight: 109.1kgBSA: 2.26 Allergies: NKA Pre-Animal Control Supervisor Values: HCT: 41.8 Platelets: 230.0 Creatinine:.6 --- PROCEDURE --- DIAGNOSTIC CARDIAC PROCEDURE Under local anesthesia, the right femoral artery was accessed with a 6Fsheath using modified Seldinger technique. A 6F JL4 catheter was introducedand positioned in the ascending aorta. Left heart cath was performed according to standard procedure. A 6FPigtail was used to cross the aortic valve and measure pressures in the left ventricle. Selective coronary arteriography was then performed using a 6F RB1mzebrlkx to engage the left coronary artery and a 6F JR4 catheter to engage theright coronary artery. Right and left coronary arteriography were performedin multiple views. Using standard procedures, left ventriculography was performed. A 6FPigtail was used to cross the aortic valve and measure pressures in the left ventricle. An injection of Isovue contrast was used for leftventriculography in the 30 degree SAENZ projection. The Access location was: > Right Femoral Artery The Largest Arterial Sheath/Cath placed was 6F The Hemostasis method used was: [employer] Paulina Sys SELECTED MEDICATION ADMINISTERED DURING THE PROCEDURE: FENTANYL, VERSED (Please see PhysioLog report for complete list of medicationsused.) --- RESULTS --- HEMODYNAMICS Pressures: Site Systolic Diasto Mean lic LV 93 7 LV 96 9 Ao 99 64 79 Ao 95 69 82 The left ventricular end diastolic pressure was normal. There was no gradient detected across the aortic valve. LEFT VENTRICULOGRAPHY The left ventricular function was normal. There was no mitralregurgitation. FEMORAL ANGIOGRAPHIC FINDINGS The right common femoral artery was normal in size and had nosignificant angiographic lesions. The femoral artery sheath was placed within the common femoral artery. CORONARY ANGIOGRAPHIC FINDINGS Left Main Artery: The Left Main is normal in size and has no significant angiographic lesions. Left Anterior Descending Artery: The Proximal LAD is normal in size andhas mild luminal irregularities. The mid and Distal LAD has a 60% stenosis. Circumflex Artery: The Circumflex has a 50% stenosis. Right Coronary Artery: The mid RCA has a 70% lesion and distal RCA has a90% calcified stenosis. Prior stents in the prox RCA are patent. Referring Physician: BRODERICK LOZADA MD Referring Physician 2: JOAQUÍN CARPENTER MD Diagnostic Attending: Broderick Lozada MD Diagnostic Fellow: Lara Stinson MD As the attending, supervising kosher dietary service supervisor, I was present for the entire procedure. Signature date/time: 09/17/2009 2:44:03 PM IMPRESSION [facility] [address] [place] [address] [phone] [email or web address] Final Interventional Cardiovascular Catheterization Report --- SUMMARY OF RESULTS --- > The patient has significant (>70%) lesions in 1 coronary vessel(s). > The culprit artery was the RCA. Prior to PCI there was 90% stenosis inthe culprit artery. > Following PCI as described in the procedure section, there was 0%residual stenosis and normal flow in the RCA. > We accomplished complete revascularization. There are severestenoses remaining in 0 coronary vessels or grafts. Pt has moderate residualdisease in LAD and LCX which will be followed clinically. > Interventional cardiac catheterization was performed without anysignificant complications. --- PLAN --- >Aspirin is recommended indefinitely and should not be stopped without consultation with a kosher dietary service supervisor. Clopidogrel (plavix) is recommended fora minimum of 12 months after the drug eluting stent procedure. --- PATIENT PRESENTATION --- The patient is a 53 year old male. The primary indication for PCI was PCIfor high risk Non-STEMI or unstable angina. Additional indications include: angina, Positive Nuclear Stress Test, Unstable angina. The patient has the following Comorbidities/Risk Factors: Dyslipidemia, Hypertension, Prior CO, Prior PCI. Diabetes Oral. : 1955 Sex: male Height: 177.8cm Weight: 109.1kgBSA: 2.26 Allergies: NKA Pre-Animal Control Supervisor Values: HCT: 41.8 Platelets: 230.0 Creatinine:.6 --- PROCEDURE --- CARDIAC ANATOMY AND FUNCTION Natives with > 70% stenosis: RCA Dominance: Right LM Stenosis: 0% INTERVENTIONAL CARDIAC PROCEDURE PCI is indicated for this significant ACC/AHA class B2 lesion in thedistal RCA vessel. A 6F KR3H guide catheter was chosen for the intervention . This cathetergave good engagement in the ostium of the LM. The lesion in the distal RCA was crossed successfully with an 0.014inch VersionEye Prowater wire. We then inflated a 3.0 mm diameter of approximately 15 mm length Casselberry inthe mid to distal RCA. The maximal inflation pressure was 10-12 cale. Thiswas repeated within the entire mid to distal portion. We were unable to passa stent across the mid lesion and then inflated a 3.5 mm diameter of approximately 15 mm length Voyager balloon in the mid RCA. Themaximal inflation pressure was >16 cale. This also was repeated within the entiremid to distal segment at high pressures. We then used another Prowater as abuddy wire to recross the lesion and over this wire were able to inflate a 3.5mm diameter of approximately 12 mm length Black Earth drug-eluting stent inthe distal RCA. The maximal inflation pressure was >16 cale. The stent was successfully deployed. We then inflated a 3.5 mm diameter of approximately 30 mm length Black Earth drug- eluting stent in the mid RCA. The maximal inflation pressure was >16atm. The stent was successfully deployed. We then inflated a 3.5 mm diameter of approximately 15 mm length Quantum [place] balloon in the mid to distal RCA. The maximal inflationpressure was >16 cale. We then inflated a 3.0 mm diameter of approximately 12 mm length Black Earth drug- eluting stent in the distal RCA. The maximal inflation pressure was>16 cale. The stent was successfully deployed. The stent balloon was then inflated at the stent overlap. The maximal inflation pressure was >16atm. The right common femoral artery was normal in size and had nosignificant angiographic lesions. The femoral artery sheath was placed within the common femoral artery. The Access location was: > Right Femoral Artery The Largest Arterial Sheath/Cath placed was 6F The Hemostasis method used was: [employer] Paul[employer] Sys SELECTED MEDICATION ADMINISTERED DURING THE PROCEDURE: FENTANYL, VERSED (Please see PhysioLog report for complete list of medicationsused.) Referring Physician: BRODERICK LOZADA MD Referring Physician 2: JOAQUÍN CARPENTER MD Interventional Attending: Broderick Lozada MD Interventional Fellow: Lara Stinson MD As the attending, supervising kosher dietary service supervisor, I was present for the entire procedure. Signature date/time: 09/19/2009 15:57:33 Broderick Lozada MD CARDIAC CATH ORDERAB LES documented in this encounter Visit Diagnoses Not on filedocumented in this encounter Care Teams Surfacer Operator Relationship Specialty Start Date End Date Joaquín Carpenter MD [address] [place] [address] PCP - General 09/04/09 10/26/12 documented as of this encounter
--- OUTSIDE RECORDS SUMMARY | 2024-03-04 00:29 | XMS_ITS | Encounter Summary ---
Author Organization [facility] Address [address] [place] [address] Care Team Providers Care Metal Caster Name Role Phone Joaquín Carpenter MD Primary Care Provider [phone] Reason for Visit * Reason Onset Date Comments Results 04/18/2010 ETT of 04/12/10 Encounter Details Date Type Department Care Team ([facility] Contact Info) Description 04/18/2010 Telephone [facility] Cardiology - [address] [place] [address] Mary Valadez, RN Results (ETT of 04/12/10) Social History Tobacco Use Types Packs/Day Years [...] Miscellaneous Notes * Telephone Encounter - Mary Valadez, RN - 04/18/2010911 EDT Patient not available. Left message with his . She will have him call if he has questions. Message copied by MARY VALADEZ on ThuApr 18, [id number] ------ Message from: RYLIE LOZADA Created: Wed Apr 17, 2010 1034 Test fine documented in this encounter Plan of Treatment Upcoming Encounters Date Type Department Care Team (Late st Contact Info) Description 08/08/2024 13:00 EST Office Visit [facility] Gastroenterology - [address] [address] Kera Tatum PA-C [address] [facility], [address] [place] [phone] documented as of this encounter Visit Diagnoses Not on filedocumented in this encounter Care Teams Metal Caster Relationship Specialty Start Date End Date Joaquín Carpenter MD [address] [place] [address] PCP - General 09/04/09 10/26/12 documented as of this encounter
--- OUTSIDE RECORDS SUMMARY | 2024-03-04 00:29 | XMS_ITS | Encounter Summary ---
Author Organization [facility] Address [address] [place] [address] Care Team Providers Care Dado Operator Name Role Phone Joaquín Carpenter MD Primary Care Provider [phone] Encounter Details Date Type Department Care Team (Latest Contact Info) Description 09/09/2009 18:24 EST - 09/11/2009 12:54 EST Hospital Encounter [facility] Cardiac/Telemetry Unit [address] [place] [address] Grace Escobar MD Discharge Disposition: Home or Self Care Social [...] 09/09/2009 documented as of this encounter Discharge Summaries * José Miguel Medina Jr., MD - 09/09/2009 [...] known CAD (Balloon angioplasty in 1992, PCI [id number], and most recently PCI with MARY x 2 to RCA 09/07/09), DM, HTN, HLD, tobacco history, family h/oCAD, who presents one day after discharge from hospital and two days after PCI with chest pain at rest and with exertion. The chest pain was minimal (08/29) but similar in quality to that prior to recent elective catheterization. He presented to an OSH where troponin was found to be 0.06 (negative cutoff <0.06) and was transferred to [facility]. On arrival he was chest pain free. [...] for one year minimum. He will follow up as planned prior to the second catheterization and [...] MD documented in this encounter Discharge Instructions * Discharge Instructions* Shankar Tyson MD - 09/11/2009 9:13 EST Post Procedure Instructions: You had a [...] while taking these medications, immediately contact your teaching manager. Do not stop taking aspirin or Plavix without discussing this with your doctor. Appointments: Follow up with cardiology as planned prior to this hospitalization. Cardiac Rehab Referral: You have been referred to the [facility] cardiac rehabilitation program. The [facility] is located at [address] [place] [address], off [facility] ([address] Call [phone] for directions. Your initial visit is scheduled [...] by mouth daily. 30 Tab 11 09/10/2009 lisinopril (PRINIVIL, ZESTRIL) 5 mg tablet Take [...] bedtime 12/02/2018 aspirin 325 mg tablet Take 1 Tab by mouth daily. Aspirin 325 mg daily for 30 days then aspirin 81 mg daily for lifetime 30 Tab 0 09/07/2009 10/08/2010 clopidogrel (PLAVIX) 75 mg tablet Take 1 Tab by mouth daily. Plavix 75 mg daily uninterrupted for a minimum of one year Do not stop or interrupt this medication withour discussing with teaching manager Start this medication in one month. [...] DIABETES MELLITUS 30 Tab 0 09/10/2009 12/02/2018 Prasugrel (EFFIENT) 10 mg Tab tablet Take 1 Tab by mouth daily. Take for one month, then resume Plavix. 30 Tab 0 09/10/2009 10/08/2010 SIMVASTATIN (ZOCOR ORAL) Take 40 mg by mouth at bedtime. 04/13/2012 documented as of this encounter Ordered Prescriptions Prescription Sig Dispensed Refills Start Date End Da te amlodipine (NORVASC) 10 mg tablet Take 1 Tab by mouth daily. 30 Tab 11 09/10/2009 Prasugrel (EFFIENT) 10 mg Tab tablet Take 1 Tab by mouth daily. Take for one month, then resume Plavix. 30 Tab 0 09/10/2009 10/08/2010 metformin (GLUCOPHAGE) 1,000 mg tabletIndications:type 2 diabetes mellitus Take by mouth 2 times daily with meals. Restart Metformin Sat Take as previously prescribed Metformin 1000 mg in the morning and Metformin 500 mg each evening, Indications: TYPE 2 DIABETES MELLITUS 30 Tab 0 09/10/2009 12/02/2018 clopidogrel (PLAVIX) 75 mg tablet Take 1 Tab by mouth daily. Plavix 75 mg daily uninterrupted for a minimum of one year Do not stop or interrupt this medication withour discussing with teaching manager Start this medication in one month. First take Prasugrel 10 mg daily for one month. Start Plavix the day after stopping Prasugrel. 30 Tab 11 09/10/2009 02/10/2016 documented in this encounter Discharge Disposition Disposition Code Departure Means Destination Home or Self Care documented in this encounter Progress Notes * Felisa Holland - 09/11/2009 1114 EST 1020 Pt ambulating in the hallway, tolerated well. * Felisa Holland - 09/11/2009 0953 EST 930 Reviewed discharge instructions with pt. * Felisa Holland - 09/11/2009 0953 EST 730 Assumed care for pt. * Opal Jeronimo RN - 09/11/2009 0952 EST Discharged without HH. * Opal Jeronimo RN - 09/11/2009 0949 EST This patient has been assessed using the [facility] Case Management risk screen. No needs were identifiedat this time. Please page the pillowcase sewer regarding utilization review issues or if discharge planning problems or barriers arise. Met with patient at request of Meryl Cerrato NP for interventional. Patient has prasugrel at discharge for a month , then plavix. He has [employer] for insurance and [facility] but using CBA. HE uses [facility] PC to them: no prasugrel. PC to [facility] outpatient pharmacy: they have in stock. Patientwill have spouse bring down RX. I gave him discount card.Patient is independent [employer]. is POA ans will transport. Phosphorus Processing Supervisor: Esthela Jeronimo RN Beeper: [phone] * Burke Brooks MD - 09/11/2009 0925 EST Patient had an uneventful night and denies any chest pain or groin pain.There were no tachy/bradyarrhythmias noted on telemetry. Blood pressure 138/86, pulse 70, temperature 36.6 ??C (97.9 ??F), temperature source Tympanic, resp. rate 18, height 1.753 m (5' 9), weight [...] aggressive risk factor modification. Goal LDL is <70mmol/L. Will dc today with fu with Dr. Goyo Galloway in 6 weeks and cardiac rehab. * Israel Roach RN - 09/10/2009 8700 EST D: See Post-Cath Flowsheet. A: RN to monitor groin site for hematoma/bleeding, tele for arrhythmias, CSMTs in affected extremities, I/O for adequate hydration, and other parameters as required per patient's condition. R: Will continue to monitor/assess and document per protocol. * Hossein Egan - 09/10/2009 1621 EST R-3 Post Cath Check Pt doing well follow left heart catheterization. He denies any concerns currently. He denies any chest pain/dyspnea/palpitations/N/V. BP 127/81 Pulse 64 Temp(Src) 36.2 ??C (97.2 ??F) (Tympanic) Resp 16 Ht 1.753 m (5' 9) Wt107.956 kg (238 lb) SpO2 99% GEN: NAD, A/O X3 CVS: RRR, no RMG Pulm: CTAB Abd: not distended, +BS, no TTP Right groin: dressing with small amount of dry blood, no TTP Ext: no REJI, 2+ PP A/P: Pt stable post LHC with PCI X3 to LAD, continue ASA/prasugrel/statin/BB. Monitor overnight andplan for discharge in AM. Lazaor Egan * Israel Roach RN - 09/10/2009 0753 EST Pt transported to [facility] after taking all po am. Meds. to include asa 325mg and plavix 75mg. * Hiro Katz MD - 09/10/2009 0743 EST CARDIOLOGY PROGRESS NOTE Admit Date: 09/09/2009 [...] unit/g ointment Topical DAILY ??? heparin in / NS 25,000 unit/250 mL infusion Intravenous CONTINUOUS OBJECTIVE: BP 147/92 Pulse 70 Temp(Src) 36.2 ??C (97.2 ??F) (Tympanic) Resp 16 Ht 1.753 m (5' 9) Wt107.956 kg (238 lb) SpO2 99% No intake [...] of care documented in the resident's/fellow's note. * José Miguel Medina Jr., MD - 09/10/2009 0000 EST September 10, 2009 Joaquín Carpenter MD [facility] [address] [place] [address] Carpenter, I had the pleasure of performing cardiac catheterization and percutaneous intervention on Raul Trujillo today. Mr. Trujillo is a 53-year-old male who presented with exertional chest pain. He underwent stenting to his right coronary artery on Thursday with intermediate lesions by angiography in his left anterior descending artery that were left alone. He was brought back to the [facility] today because ofrecurrent angina. We performed fractional flow reserve assessment of the left anterior descending artery, achieving avalue of 0.69. Any value of less than 0.80 is considered significant for ischemia. For this reason,we proceeded with percutaneous intervention on the LAD. I was able to successfully place a total of 3 stents, 2 drug-eluting and 1 bare- metal, from the prox to distal portion of the left anterior descending artery. We had good results in the main shaft ofthe left anterior descending artery, with an occlusion [...] José Miguel Medina MD / mlw Confirmation: [id number] Dictation ID: [id number] cc:Joaquín Carpenter MD documented in this encounter H&P Notes * José Miguel Medina Jr., MD - 09/09/2009 1811 EST MEDICINE H&P / ADMISSION NOTE Admit Date: 09/09/2009 Date of Service: 09/09/2009 PRIMARY CARE PHYSICIAN: Joaquín Carpenter MD CHIEF COMPLAINT: Chest pain HISTORY OF PRESENT ILLNESS: Patient is a 53 y.o. male with known CAD who was admitted to [facility] two days ago on 09/07/09 with Unstable Angina, and had three stents placed in the RCA. He was discharged yesterday and did well at home overnight, with no chest pain. This morning, on ambulating at home and later in the shower he feltchest pain similar in character to his previous admission but less severe. It was 2/10 this morning and 4-5/10 at its worst 2 days ago. The pain subsided with rest and SL nitro. [facility],where the troponin was 0.06 and an EKG did not show ischemic changes. He was transferred here for further workup. The cath showed: LM:Nl LAD:50% mid, 60% distal Cx:40% distal RCA: 90% distal, 70% mid EF:60% LVEDP: 10 The RCA was treated with a 3.0 OTW maverick followed by a 3.5 [place], and [place] Voyager. Stent delivery required 2 nataly wires. [place] 3.0x15, 3.5x12 and 3.5x30 stents were placed and post dilated with a 3.5 mm Quantum. The patient states that he is currently chest pain-free. He denies any dyspnea, syncope, palpitations, nausea, or diaphoresis. There has not been fevers, chills, cough, abdominal pain, vomiting, d/c,melena or hematochezia. No edema. His catheter site has not been bleeding. PMH PSH Past Medical History Diagnosis Date ??? SC [...] or interrupt this medication withour discussing with teaching manager 30 Tab 11 ??? metformin (GLUCOPHAGE) 1,000 [...] Consider LHC in am with FFR Humberto #[id number] Fellow addendum Agree with above, 53 yo [...] encounter Procedure Notes * Inpatient, Physician - 09/21/2009 0307 ESTAssociated Order(s): ECG REPORT - SCANNED * Inpatient, Physician - 09/21/2009 0307 ESTAssociated Order(s): ECG REPORT - SCANNED * Inpatient, Physician - 09/21/2009 0307 ESTAssociated Order(s): ECG REPORT - SCANNED * Inpatient, Physician - 09/14/2009 0754 ESTAssociated Order(s): ECG REPORT - SCANNED * José Miguel Medina Jr., MD - 09/10/2009 1006 ESTProcedure(s): OH IV DOP ROSA&/OR PRESS C/KUMAR RSRV JOAO 1ST VSL; CORONARY ANGIOPLASTY WITH STENT PLACEMENT Pre-Procedure Diagnose(s): NSTEMI (non-ST elevated myocardial infarction) ([facility]); CAD (coronary artery disease) Post-Procedure Diagnose(s): CAD (coronary artery disease) PRELIMINARY CARDIAC CATHETERIZATION REPORT NOT FINAL Attending: Germaine Fellow(s)/ICE CREAM MAN: Cecilia Anesthesia used for procedure: A moderate [...] stented using Promus 2.75x18 (prox), Taxus Liberte Atom 2.25x28 (mid) and Mini-Vision 2.0x12 (distal). This yielded a good result and no complications. The very small 3rd diagonal was jailed and had CECE I flow at the end of the procedure. Post-Interventional Plan: (See Also Post Procedure Orders) Aspirin 325 mg po qd x 30 day, then 81 qd indefinitely. Aspirin should never be stopped for more than 48 hours without consulting a teaching manager. Prasugrel 10mg a day for one month Plavix 75 mg po qd x 1 year minimum after the end of one month of prasugrel. Continue current beta-rohini and ACEi doses. Continue simvastatin 80 mg po qd D/C tomorrow if stable. Post Interventional Conclusion/Physician order for admission status: ?? On the basis of clinical presentation, co-morbidities and procedural outcome/complications, thisoutpatient requires inpatient hospitalization after PCI or PVI: ?? Already inpatient or acute coronary syndrome Side branch occlusion, persistent thrombus, perforation Reference: SERA Hernandez et al. Randomized trial comparing same-day discharge with overnight hospital stay after percutaneous coronary intervention. Circulation. 2006November 17;115(17):2299-306. documented in this encounter OR Notes * Anesthesia Procedure Notes - Inpatient, Physician - 09/14/2009 0754 EST documented in this encounter Miscellaneous Notes * Scanned Note-Null - Inpatient, Physician - 09/14/2009 0754 EST * Scanned Note-Null - Inpatient, Physician - 09/14/2009 0754 EST * Scanned Note-Null - Inpatient, Physician - 09/14/2009 0754 EST * Scanned Note-Null - Inpatient, Physician - 09/14/2009 0754 EST * Miscellaneous - Inpatient, Physician - 09/14/2009 0754 EST * Plan of Care - Cheli Kulkarni RN - 09/10/20092201 EST Problem: Acute Ischemic Pain - Cardiac Acute ischemic pain of a cardiac nature is generally manifested in the chest or left arm but mat beevidenced in other areas such as the jaw or teeth. The patient will frequently describe it as a pressure, squeezing or apprehension rather than pain. Goal: Patient Remains Pain Free Patient goal is to remain free of pain from cardiac ischemis Outcome: Met This Shift Active Multi-Disciplinary problems: HOSPITAL ORIENTATION/SAFETY [23091] (09/09/09) Acute Ischemic Pain - Cardiac [15355] (09/10/09) Risk for decreased cardiac output [94438] (09/10/09) Data: No c/o pain or SOB. VSS, see flowsheet. Left groin D+I no ecchymosis, no hematoma noted. Small amount old bloody drainage noted to left groin dressing. Pt able to verbalize understanding and acceptance of stent procedure done today. OOB ambulating well in hallway >200ft. Action: Discharge teaching initiated. Increased ADL's encouraged. Response: Pt verbalizes good understanding and acceptance. Cont to monitor. Cheli Kulkarni RN 09/10/2009 9:54 PM * Plan of Care - Carlos Reyez - 09/09/2009 1824 EST Problem: HOSPITAL ORIENTATION/SAFETY Goal: Oriented To Hospital Environment D: Patient arrived to [place] [address] . Vital signs noted. Tele applied. Patient [...] Visit [facility] Gastroenterology - [address] [id number] Kera Tatum PA-C [address] [place] [address], [address] [place] [address] documented as of this encounter Procedures Procedure Name Priority Date/Time Associated Diagnosis Comments ECG REPORT - SCANNED 09/21/2009 3:07 EST ECG REPORT - SCANNED 09/21/2009 3:07 EST ECG REPORT - SCANNED 09/21/2009 3:07 EST ECG REPORT - SCANNED 09/14/2009 7:54 EST ECHOCARDIOGRAM Routine 09/11/2009 10:16 EST GLUCOSE, GLUCOMETER Routine 09/11/2009 7 :53 EST PTT Routine 09/11/2009 6:42 EST COMPLETE BLOOD COUNT Routine 09/11/2009 6:42 EST BUN Routine 09/11/2009 6:42 EST CREATININE Routine 09/11/2009 6:42 EST CK MB WITH TOTAL CK Routine 09/11/2009 6 :42 EST ELECTROLYTES Routine 09/11/2009 6:42 EST EKG 12-LEAD Routine 09/11/2009 0:07 EST GLUCOSE, GLUCOMETER Routine 09/10/2009 2 1:03 EST GLUCOSE, GLUCOMETER Routine 09/10/2009 1 7:16 EST CK MB WITH TOTAL CK Routine 09/10/2009 1 5:27 EST GLUCOSE, GLUCOMETER Routine 09/10/2009 1 1:01 EST EKG 12-LEAD Routine 09/10/2009 10:22 EST LEFT HEART CATH Routine 09/10/2009 8:33 EST GLUCOSE, GLUCOMETER Routine 09/10/2009 7 :21 EST TROPONIN I Routine 09/10/2009 4:08 EST PTT Routine 09/10/2009 4:08 EST COMPLETE BLOOD COUNT Routine 09/10/2009 4:08 EST BUN Routine 09/10/2009 4:08 EST HEMOGLOBIN A1C Routine 09/10/2009 4:08 EST CREATININE Routine 09/10/2009 4:08 EST CK MB WITH TOTAL CK Routine 09/10/2009 4 :08 EST ELECTROLYTES Routine 09/10/2009 4:08 EST EKG 12-LEAD Routine 09/10/2009 0:07 EST TROPONIN I Routine 09/09/2009 21:13 EST CK MB WITH TOTAL CK Routine 09/09/2009 2 1:13 EST GLUCOSE, GLUCOMETER Routine 09/09/2009 2 0:30 EST SCREENING GLUCOSE Routine 09/09/2009 19: 28 EST HOLD BLUE TOP Routine 09/09/2009 19:28 EST ELEVATED GLUCOSE Routine 09/09/2009 19:2 8 EST PTT STAT 09/09/2009 19:28 EST PTT Routine 09/09/2009 19:28 EST PROTIME Routine 09/09/2009 19:28 EST COMPLETE BLOOD COUNT Routine 09/09/2009 19:28 EST BUN Routine 09/09/2009 19:28 EST MAGNESIUM Routine 09/09/2009 19:28 EST CREATININE Routine 09/09/2009 19:28 EST ELECTROLYTES Routine 09/09/2009 19:28 EST GLUCOSE, GLUCOMETER Routine 09/09/2009 1 8:43 EST documented in this encounter Results * ECG REPORT - SCANNED (09/21/2009 3:07 EST) 09/21/2009 3:07 EST Narrative 09/21/2009 16:47 EST Ordered by an unspecified provider. Transcriptions Inpatient, Physician - 09/21/2009 3:07 EST Physician Inpatient MD PROCEDURE/MINOR S URGICAL ORDERABLES * ECG REPORT - SCANNED (09/21/2009 3:07 EST) 09/21/2009 3:07 EST Narrative 09/21/2009 16:47 EST Ordered by an unspecified provider. Transcriptions Inpatient, Physician - 09/21/2009 3:07 EST Physician Inpatient MD PROCEDURE/MINOR S URGICAL ORDERABLES * ECG REPORT - SCANNED (09/21/2009 3:07 EST) 09/21/2009 3:07 EST Narrative 09/21/2009 16:47 EST Ordered by an unspecified provider. Transcriptions Inpatient, Physician - 09/21/2009 3:07 EST Physician Inpatient MD PROCEDURE/MINOR S URGICAL ORDERABLES * ECG REPORT - SCANNED (09/14/2009 7:54 EST) 09/14/2009 7:54 EST Narrative Procedure Note Inpatient, Physician - 09/14/2009 7:54 EST Physician Inpatient MD PROCEDURE/MINOR S URGICAL ORDERABLES * ECHOCARDIOGRAM (09/11/2009 10:16 EST) Anatomical Region Laterality Modality Other 09/11/2009 10:1 6 EST Narrative 09/11/2009 11:53 EST Interpreting Group: [facility] [address] [place] [address] *STUDY CONCLUSIONS* SUMMARY - ??Overall left ventricular systolic function was normal. Left ventricular ejection fraction was estimated to be 65 %. There were no left ventricular regional wall motion abnormalities. - ??Left atrial size was at the upper limits of normal. - ??There are no significant valvular abnormalities. *PATIENT PRESENTATION* Height: ? 69 in ( 175 cm ) S/D Pressure: Weight: ? 239.58 lb ( 108.9 kg ) BSA: ?2.23 m^2 Referring MD: ??Shankar Tyson MD Beam Dyer Operator: ?? Ken Canales MD: ?? Shankar Tyson MD Referring MD: ??Joaquín Carpenter MD Attending MD: ??Grace Escobar MD Admitting MD: ??Grace Escobar MD *INDICATIONS AND HISTORY* DIAGNOSES SUPPORTING MEDICAL NECESSITY: 411.1 Angina - unstable Stent. ( 08/2009 ) *PROCEDURE DATA* PROCEDURE INFORMATION: A transthoracic complete 2D study was performed. Additional evaluation included M-mode, complete spectral Doppler, and color Doppler. Agitated saline and definity. This was a routine echocardiographic study. This study was interpreted by [facility] at [facility]. The procedure was started at 10:18:44. The procedure ended at 10:57:37. [id number] Acoustics window availability yielded suboptimal access. Body habitus yielded suboptimal views. *CARDIAC ANATOMY* LEFT VENTRICLE: - ??Left ventricular size was normal. - ??Overall left ventricular systolic function was normal. - ??Left ventricular ejection fraction was estimated to be 65 %. - ??There were no left ventricular regional wall motion abnormalities. - ??Left ventricular wall thickness was normal. RIGHT VENTRICLE: - ??Right ventricular size was normal. - ??Right ventricular systolic function was normal. - ??Right ventricular wall thickness was normal. LEFT ATRIUM: - ??Left atrial size was at the upper limits of normal. RIGHT ATRIUM: - ??Right atrial size was normal. AORTIC VALVE: - ??The aortic valve was trileaflet. - ??Aortic valve thickness was normal. - ??There was normal aortic valve leaflet excursion. Doppler interpretation(s): - ??There was no significant aortic valve stenosis by color Doppler and spectral Doppler. - ??There was no significant aortic valvular regurgitation by color Doppler. MITRAL VALVE: - ??Mitral valve structure was normal. - ??There was normal mitral valve leaflet excursion. Doppler interpretation(s): - ??There was no significant mitral valve stenosis by color Doppler and spectral Doppler. - ??There was no significant mitral valvular regurgitation by color Doppler. PULMONIC VALVE: - ??The structure of the pulmonic valve appeared to be normal. Doppler interpretation(s): - ??There was no significant pulmonic valve stenosis by color Doppler and spectral Doppler. - ??There was trivial pulmonic regurgitation by color Doppler. TRICUSPID VALVE: - ??The tricuspid valve structure was normal. - ??Tricuspid leaflet excursion was normal. Doppler interpretation(s): - ??There was no significant tricuspid valve stenosis by color Doppler and spectral Doppler. - ??There was trivial tricuspid valvular regurgitation by color Doppler. PERICARDIUM: - ??There was no significant pericardial effusion. - ??The pericardium was normal in appearance. AORTA: - ??The aortic root was normal in size. PULMONARY ARTERY: - ??The pulmonary artery was normal size. Doppler interpretation(s): - ??The estimated pulmonary artery systolic pressure was within the normal range. SYSTEMIC VEINS: - ??The inferior vena cava was normal. *MEASUREMENT TABLES* 2D measurements LEFT VENTRICLE ? NORMAL LVID ed (chordal) ?50.5 ??mm ?<56 mm LVID es (chordal) ?22.5 ??mm ?<40 mm FS (chordal) ? 55 ?% ? >29% IVS ed ? 9 ? mm ?<11mm LVPW ed ?9.4 ?? mm ?<11 mm Doppler measurements LEFT VENTRICLE ? NORMAL Tissue Doppler LV Ea (lat annulus) ?11 ?cm/sec ??-- LV E/Ea (lat annulus) ??6.8 ? -- LV Ea (med annulus) ?10 ?cm/sec ??-- LV E/Ea (med annulus) ??7.5 ? -- MITRAL VALVE ? NORMAL Peak E velocity ?75 ?cm/sec ??62 + or - 14 cm/sec Peak A velocity ?84 ?cm/sec ??49 + or - 14 cm/sec MV peak E/A ?0.89 ?1.1-1.7 MV deceleration time ?? 250 ?? msec ?210 + or - 40 Peak gradient ?2 ? mmHg ?-- Pressure half-time ? 72.5 ??msec ?-- *CONTRAST ECHO RESULTS* 4 ml of Definity diluted in 10 ml saline was administered by Ken Haque CVJessica. 1 vials of Definity was used. Reviewed and signed by Hardeep Silva MD Confirmed 11-Sep-2009 11:52:12 Procedure Note 09/11/2009 Interpreting Group: [facility] [address] [place] [id number] *STUDY CONCLUSIONS* SUMMARY - Overall left ventricular systolic function was normal. Leftventricular ejection fraction was estimated to be 65 %. There were no left ventricular regional wall motion abnormalities. - Left atrial size was at the upper limits of normal. - There are no significant valvular abnormalities. *PATIENT PRESENTATION* Height: 69 in ( 175 cm ) S/D Pressure: Weight: 239.58 lb ( 108.9 kg ) BSA: 2.23 m^2 Referring MD: Shankar Tyson MD Beam Dyer Operator: Ken Haque Ordering MD: Shankar Tyson MD Referring MD: Joaquín Carpenter MD Attending MD: Grace Escobar MD Admitting MD: Grace Escobar MD *INDICATIONS AND HISTORY* DIAGNOSES SUPPORTING MEDICAL NECESSITY: 411.1 Angina - unstable Stent. ( 08/2009 ) *PROCEDURE DATA* PROCEDURE INFORMATION: A transthoracic complete 2D study was performed. Additional evaluation included M-mode, complete spectral Doppler, and color Doppler. Agitated saline and definity. This was a routine echocardiographic study. Thisstudy was interpreted by [facility] at [facility]. The procedure was started at 10:18:44. The procedure endedat 10:57:37. [id number] Acoustics window availability yielded suboptimalaccess. Body habitus yielded suboptimal views. *CARDIAC ANATOMY* LEFT VENTRICLE: - Left ventricular size was normal. - Overall left ventricular systolic function was normal. - Left ventricular ejection fraction was estimated to be 65 %. - There were no left ventricular regional wall motion abnormalities. - Left ventricular wall thickness was normal. RIGHT VENTRICLE: - Right ventricular size was normal. - Right ventricular systolic function was normal. - Right ventricular wall thickness was normal. LEFT ATRIUM: - Left atrial size was at the upper limits of normal. RIGHT ATRIUM: - Right atrial size was normal. AORTIC VALVE: - The aortic valve was trileaflet. - Aortic valve thickness was normal. - There was normal aortic valve leaflet excursion. Doppler interpretation(s): - There was no significant aortic valve stenosis by color Doppler and spectral Doppler. - There was no significant aortic valvular regurgitation by colorDoppler. MITRAL VALVE: - Mitral valve structure was normal. - There was normal mitral valve leaflet excursion. Doppler interpretation(s): - There was no significant mitral valve stenosis by color Doppler and spectral Doppler. - There was no significant mitral valvular regurgitation by colorDoppler. PULMONIC VALVE: - The structure of the pulmonic valve appeared to be normal. Doppler interpretation(s): - There was no significant pulmonic valve stenosis by color Doppler and spectral Doppler. - There was trivial pulmonic regurgitation by color Doppler. TRICUSPID VALVE: - The tricuspid valve structure was normal. - Tricuspid leaflet excursion was normal. Doppler interpretation(s): - There was no significant tricuspid valve stenosis by color Dopplerand spectral Doppler. - There was trivial tricuspid valvular regurgitation by color Doppler. PERICARDIUM: - There was no significant pericardial effusion. - The pericardium was normal in appearance. AORTA: - The aortic root was normal in size. PULMONARY ARTERY: - The pulmonary artery was normal size. Doppler interpretation(s): - The estimated pulmonary artery systolic pressure was within thenormal range. SYSTEMIC VEINS: - The inferior vena [...] 75 cm/sec 62 + or - 14 cm/sec Peak A velocity 84 cm/sec 49 + or - 14 cm/sec MV peak E/A 0.89 1.1-1.7 MV deceleration time 250 msec 210 + or - 40 Peak gradient 2 mmHg -- Pressure half-time 72.5 msec -- *CONTRAST ECHO RESULTS* 4 ml of Definity diluted in 10 ml [facility] Definity was used. Reviewed and signed by Hardeep Silva MD Confirmed 11-Sep-2009 11:52:12 Shankar Tyson MD CARDIAC ECHO BUCKY ROJAS * (ABNORMAL) GLUCOSE, GLUCOMETER (09/11/2009 7:53 EST) Glucose, Fingerstick 158(H) 70 - 100 mg/dl [facility] Blending Kettle Tender ID [id number] Test Performed by Nursing Services [facility] 09/11/2009 7:53 EST 09/11/2009 7:54 EST Grace Escobar MD CHEMISTRY & BLOOD GA S ORDERABLES Performing Organization Address [facility] de Phone Number [facility] [address] [place] [address] * CREATININE (09/11/2009 6:42 EST) Creatinine 0.81 0.7 - 1.5 mg/dl [facility] GFR, Calculated >60 ml/min/1.7 3m2 [facility] Blood specimen (specimen) 09/11/2009 6:42 EST 09/11/2009 7:26 EST Shankar Tyson MD CHEMISTRY & BLOOD GAS ORDERABLES Performing Organization Address [facility] de Phone Number [facility] [address] [place] [address] * BUN (09/11/2009 6:42 EST) BUN 10 10 - 26 mg/dl [facility] Blood specimen (specimen) 09/11/2009 6:42 EST 09/11/2009 7:26 EST Shankar Tyson MD CHEMISTRY & BLOOD GAS ORDERABLES Performing Organization Address [facility] de Phone Number [facility] [address] [place] [address] * (ABNORMAL) ELECTROLYTES (09/11/2009 6:42 EST) Sodium 135(L) 136 - 145 mEq/L [facility] Potassium 4.4 3.5 - 5.0 mEq/L [facility] Chloride 100 96 - 110 mEq/L [facility] CO2 28 24 - 32 mEq/L [facility] Blood specimen (specimen) 09/11/2009 6:42 EST 09/11/2009 7:26 EST Shankar Tyson MD CHEMISTRY & BLOOD GAS ORDERABLES Performing Organization Address [facility] de Phone Number [facility] [address] [place] [address] * HEMAGRAM (09/11/2009 6:42 EST) WBC 8.26 4.0 - 10.4 K/cmm [facility] RBC 4.79 4.36 - 5.78 M/cmm [facility] Hemoglobin 14.5 13.8 - 17.3 gm/dl [facility] HCT 41.7 39.5 - 50.2 % [facility] MCV 87 81 - 95 fl [facility] MCH 30.2 27.6 - 33.0 pg [facility] MCHC 34.7 32.8 - 36.4 gm/dl [facility] PLT 234 141 - 320 K/cmm [facility] RDW-CV 13.0 11.8 - 14.1 % [facility] Blood specimen (specimen) 09/11/2009 6:42 EST 09/11/2009 7:26 EST Shankar Tyson MD HEMATOLOGY & PF4 ORDERABLES Performing Organization Address [facility] Phone Number [facility] [address] [place] [address] * PTT (09/11/2009 6:42 EST) PTT 28 20 - 35 secs [facility] Comment:Therapeutic Heparin range: 60-100 seconds Blood specimen (specimen) 09/11/2009 6:42 EST 09/11/2009 7:26 EST Shankar Tyson MD HEMATOLOGY & PF4 ORDERABLES Performing Organization Address [facility] Phone Number [facility] [address] [place] [address] * CK MB WITH TOTAL CK (09/11/2009 6:42 EST) Pathologist [facility] CK 90 0 - 250 U/L [facility] MB 1.1 0 - 5.0 ng/ml [facility] CK-MB Index Not calculated , normal MB. 0 - 2.5 [facility] Blood specimen (specimen) 09/11/2009 6:42 EST 09/11/2009 7:26 EST Burke Brooks MD CHEMISTRY & BLOOD GA S ORDERABLES Performing Organization Address [facility] Phone Number [facility] [address] [place] [address] * (ABNORMAL) GLUCOSE, GLUCOMETER (09/10/2009 21:03 EST) Glucose, Fingerstick 163(H) 70 - 100 mg/dl [facility] Blending Kettle Tender ID [id number] Test Performed by Nursing Services [facility] 09/10/2009 21:0 3 EST 09/10/2009 21:04 EST Grace Escobar MD CHEMISTRY & BLOOD GA S ORDERABLES Performing Organization Address [facility] Co de Phone Number [facility] [address] [place] [address] * (ABNORMAL) GLUCOSE, GLUCOMETER (09/10/2009 17:16 EST) Glucose, Fingerstick 114(H) 70 - 100 mg/dl [facility] Blending Kettle Tender ID [id number] Test Performed by Nursing Services [facility] 09/10/2009 17:1 6 EST 09/10/2009 17:18 EST Grace Escobar MD CHEMISTRY & BLOOD GA S ORDERABLES Performing Organization Address [facility] de Phone Number [facility] [address] [place] [address] * CK MB WITH TOTAL CK (09/10/2009 15:27 EST) CK 94 0 - 250 U/L [facility] MB 1.1 0 - 5.0 ng/ml [facility] CK-MB Index Not calculated , normal MB. 0 - 2.5 [facility] Blood specimen (specimen) 09/10/2009 15:27 EST 09/10/2009 15:54 EST Shankar Tyson MD CHEMISTRY & BLOOD GAS ORDERABLES Performing Organization Address [facility] de Phone Number [facility] [address] [place] [address] * (ABNORMAL) GLUCOSE, GLUCOMETER (09/10/2009 11:01 EST) Glucose, Fingerstick 122(H) 70 - 100 mg/dl [facility] Blending Kettle Tender ID [id number] Test Performed by Nursing Services [facility] 09/10/2009 11:0 1 EST 09/10/2009 11:05 EST Grace Escobar MD CHEMISTRY & BLOOD GA S ORDERABLES Performing Organization Address [facility] Co de Phone Number [facility] [address] [place] [address] * LEFT HEART CATH (09/10/2009 8:33 EST) Anatomical Region Laterality Modality Other 09/10/2009 8:33 EST Impressions 09/13/2009 15:26 EST ?[facility] ? [address] [facility] ??[place] [address] ? [phone] ? [email or web address] ?Final Interventional Cardiovascular Catheterization Report ?--- SUMMARY OF RESULTS --- > The culprit artery was the mid LAD. Prior to PCI there was 60% stenosis in the culprit artery. The FFR ratio was 0.69. > The culprit artery was the proximal LAD. Prior to PCI there was 60% stenosis [...] not be stopped without consultation with a teaching manager. Clopidogrel (plavix) is recommended for a minimum of 12 months after the drug eluting stent procedure. ? --- PATIENT PRESENTATION --- The patient is a 53 year old male. ??The primary indication for PCI was PCI for high risk Non-STEMI or unstable angina. Additional indications include: unstable angina. The patient has the following Comorbidities/Risk Factors: ??Dyslipidemia, Family History of Premature CAD, Hypertension, Prior SC, Prior PCI. Diabetes Oral. : 1955 ?Sex: male ?Height: 175.3cm ?Weight: 108kg ?BSA: 2.22 Allergies: ??NKA Pre-Gift Manager Values: ??HCT: 42.9 ?Platelets: 208.0 ?Creatinine:.8 ? --- PROCEDURE --- INTERVENTIONAL CARDIAC PROCEDURE PCI is indicated for this significant ACC/AHA class B1 lesion in the ??proximal LAD vessel. PCI is indicated for this significant ACC/AHA class B1 lesion in the ??mid LAD vessel. A 6F FL4 guide catheter was chosen for the intervention . ??This catheter gave good engagement in the ostium of the LM. We then inflated a 2.0 mm diameter of approximately 15 mm length [place] balloon in the ??mid and proximal LAD X 2. The maximal inflation pressure was 8-10 cale. We were unable to advance a Taxus Atom 2.25/28 mm stent into the mid LAD over the Radi wire. A 0.014 inch BMW wire was used as a nataly wire. We were still unable to advance the Taxus 2.25/28 mm stent into the mid LAD. We then inflated a 2.75 mm diameter of approximately 18 mm length Promus drug- eluting stent in the ??proximal LAD. ?? The maximal inflation pressure was 12-16 cale. ??The stent was successfully deployed. We were still unable to advance the Taxus 2.25/28 mm stent into the mid LAD. A 0.014 inch Grand Slam wire was used as a nataly wire. We were still unable to advance the Taxus 2.25/28 mm stent into the mid LAD. We then inflated a 2.5 mm diameter of approximately 20 mm length Voyager NC balloon in the ??mid LAD X 2.The maximal inflation pressure was 10-12 cale. We then inflated a 2.25 mm diameter of approximately 28 mm length TAXUS drug- eluting stent in the ??mid LAD. ?? The maximal inflation pressure was 12-16 cale. We then inflated a 2.0 mm diameter of approximately 18 mm length Mini Vision stent in the ??distal LAD. ?? The maximal inflation pressure was 10-12 cale. ??The stent was successfully deployed. We then inflated a 2.25 mm diameter of approximately 12 mm length Quantum Ramsey balloon in the ??distal LAD. The maximal inflation pressure was 12-16 cale. The left common femoral artery was normal in size [...] Physician 3: JOAQUÍN CARPENTER MD Interventional Attending: José Miguel Medina MD Interventional Fellow: Burke Brooks MD As the attending, supervising teaching manager, I was present for the entire procedure. Signature date/time: 09/13/2009 15:28:19 ? Narrative 09/13/2009 15:26 EST ?[facility] ? [address] ??[place] [address] ? [phone] ? [email or web address] ?Final Diagnostic Cardiovascular Catheterization Report ?--- SUMMARY OF RESULTS --- > The patient has flow limiting disease in the LAD. ? --- PLAN --- > After careful review of the diagnostic images and findings, PCI is indicated urgently based upon the indications, risk factors and anatomy described above. ? --- PATIENT PRESENTATION --- The patient is a 53 year old male with the following indications: ??unstable angina . The patient has the following Comorbidities/Risk Factors: ??Dyslipidemia, Family History of Premature CAD, Hypertension, Prior SC, Prior PCI. Diabetes Oral. : 1955 ?Sex: male ?Height: 175.3cm ?Weight: 108kg ?BSA: 2.22 Allergies: ??NKA Pre-Gift Manager Values: ??HCT: 42.9 ?Platelets: 208.0 ?Creatinine:.8 ? --- PROCEDURE --- DIAGNOSTIC CARDIAC PROCEDURE Under local anesthesia, the left femoral artery was accessed with a 6F sheath using modified Seldinger technique. ??A 6F JL4 catheter was introduced and positioned in the ascending aorta. Selective coronary arteriography was then performed using a 6F JL4 catheter to engage the left coronary artery. Via a 6F guide, an 0.014 inch RADI pressure wire was placed in the distal LAD. IV adenosine was infused achieving maximal hyperemia and the fractional flow reserve was [...] HEMODYNAMICS ??Pressures: ?Site ?Systolic ??Diasto ??Mean ?lic ?Ao ?111 ? 71 ?88 LEFT VENTRICULOGRAPHY Ventriculography was not performed during the procedure. FEMORAL ANGIOGRAPHIC FINDINGS The left common femoral artery was normal in size and had no significant angiographic lesions. The femoral artery sheath was placed within the common femoral artery. CORONARY ANGIOGRAPHIC FINDINGS Left Anterior Descending Artery: Fraction flow reserve 0.69 after IC adenosine Referring Physician: CAROL HAYES,HARDEEP Andino Referring Physician 2: GRACE ESCOBAR MD Referring Physician 3: JOAQUÍN CARPENTER MD Attending: Germaine HAYES, José Miguel Diagnostic Fellow: Robinson Nova MD As the attending, supervising teaching manager, I was present for the entire procedure. Signature date/time: 09/13/2009 15:27:03 Procedure Note José Miguel Medina Jr., MD - 04/12/2010 [facility] [place] [address] [phone] [email or web address] Final Diagnostic Cardiovascular Catheterization Report --- SUMMARY OF RESULTS --- > The patient has flow limiting disease in the LAD. --- PLAN --- > After careful review of the diagnostic images and findings, PCI isindicated urgently based upon the indications, risk factors and anatomy describedabove. --- PATIENT PRESENTATION --- The patient is a 53 year old male with the following indications:unstable angina . The patient has the following Comorbidities/Risk Factors: Dyslipidemia, Family History of Premature CAD, Hypertension, Prior SC, Prior PCI. Diabetes Oral. : 1955 Sex: male Height: 175.3cm Weight: 108kg BSA:2.22 Allergies: NKA Pre-Gift Manager Values: HCT: 42.9 Platelets: 208.0 Creatinine:.8 --- PROCEDURE --- DIAGNOSTIC CARDIAC PROCEDURE Under local anesthesia, the left femoral artery was accessed with a 6Fsheath using modified Seldinger technique. A 6F JL4 catheter was introducedand positioned in the ascending aorta. Selective coronary arteriography was then performed using a 6F [id number] to engage the left coronary artery. Via a 6F guide, an 0.014 inch RADI pressure wire was placed in the distalLAD. IV adenosine was infused achieving maximal hyperemia and the fractionalflow reserve was assessed. The Access location was: > Right Femoral Artery The Largest Arterial Sheath/Cath placed was 6F The Hemostasis method used was: Starclose [employer] Paulina Sys SELECTED MEDICATION ADMINISTERED DURING THE PROCEDURE: FENTANYL,HEPARIN DRIP, VERSED (Please see PhysioLog report for complete list of medicationsused.) --- RESULTS --- HEMODYNAMICS Pressures: Site Systolic Diasto Mean lic Ao 111 71 88 LEFT VENTRICULOGRAPHY Ventriculography was not performed during the procedure. FEMORAL ANGIOGRAPHIC FINDINGS The left common femoral artery was normal in size and had no significant angiographic lesions. The femoral artery sheath was placed within the common femoral artery. CORONARY ANGIOGRAPHIC FINDINGS Left Anterior Descending Artery: Fraction flow reserve 0.69 after ICadenosine Referring Physician: CAROL HAYES,HARDEEP Andino Referring Physician 2: LUZ HAYES,GRACE Payton Referring Physician 3: JOAQUÍN CARPENTER MD Diagnostic Attending: Germaine HAYES, José Miguel Diagnostic Fellow: Avtar HAYES, Robinson As the attending, supervising teaching manager, I was present for the entire procedure. Signature date/time: 09/13/2009 15:27:03 [facility] [address] [place] [address] [phone] [email or web address] Final Interventional Cardiovascular Catheterization Report --- SUMMARY OF RESULTS --- > The culprit artery was the mid LAD. Prior to PCI there was 60% stenosisin the culprit artery. The FFR ratio was 0.69. > The culprit artery was the proximal LAD. Prior to PCI there was 60%stenosis in the culprit artery. The FFR ratio was 0.69. > Following PCI as described in the procedure section, there was 0%residual stenosis and normal flow in the mid LAD. > Following PCI as described in the procedure section, there was 0%residual stenosis and normal flow in the proximal LAD. > Interventional cardiac catheterization was performed without anysignificant complications. --- PLAN --- >Aspirin is recommended indefinitely and should not be stopped without consultation with a teaching manager. Clopidogrel (plavix) is recommended fora minimum of 12 months after the drug eluting stent procedure. --- PATIENT PRESENTATION --- The patient is a 53 year old male. The primary indication for PCI was PCIfor high risk Non-STEMI or unstable angina. Additional indications include: unstable angina. The patient has the following Comorbidities/Risk Factors: Dyslipidemia, Family History of Premature CAD, Hypertension, Prior SC, Prior PCI. Diabetes Oral. : 1955 Sex: male Height: 175.3cm Weight: 108kg BSA:2.22 Allergies: NKA Pre-Gift Manager Values: HCT: 42.9 Platelets: 208.0 Creatinine:.8 --- PROCEDURE --- INTERVENTIONAL CARDIAC PROCEDURE PCI is indicated for this significant ACC/AHA class B1 lesion in theproximal LAD vessel. PCI is indicated for this significant ACC/AHA class B1 lesion in the midLAD vessel. A 6F FL4 guide catheter was chosen for the intervention . This cathetergave good engagement in the ostium of the LM. We then inflated a 2.0 mm diameter of approximately 15 mm length Apexballoon in the mid and proximal LAD X 2. The maximal inflation pressure was 8-10atm. We were unable to advance a Taxus Atom 2.25/28 mm stent into the mid LADover the Radi wire. A 0.014 inch BMW wire was used as a nataly wire. We were still unable to advance the Taxus 2.25/28 mm stent into the midLAD. We then inflated a 2.75 mm diameter of approximately 18 mm length Promusdrug- eluting stent in the proximal LAD. The maximal inflation pressure [id number] cale. The stent was successfully deployed. We were still unable to advance the Taxus 2.25/28 mm stent into the midLAD. A 0.014 inch Grand Slam wire was used as a nataly wire. We were still unable to advance the Taxus 2.25/28 mm stent into the midLAD. We then inflated a 2.5 mm diameter of approximately 20 mm length VoyagerNC balloon in the mid LAD X 2.The maximal inflation pressure was 10-12atm. We then inflated a 2.25 mm diameter of approximately 28 mm length TAXUSdrug- eluting stent in the mid LAD. The maximal inflation pressure was 12-16atm. We then inflated a 2.0 mm diameter of approximately 18 mm length MiniVision stent in the distal LAD. The maximal inflation pressure was 10-12 cale.The stent was successfully deployed. We then inflated a 2.25 mm diameter of approximately 12 mm lengthQuantum Ramsey balloon in the distal LAD. The maximal inflation pressure [id number] cale. The left common femoral artery was normal in size and had no significant angiographic lesions. The femoral artery sheath was placed within the common femoral artery. The Access location was: > Right Femoral Artery The Largest Arterial Sheath/Cath placed was 6F The Hemostasis method used was: Starclose Vascular Paulina Sys SELECTED MEDICATION ADMINISTERED DURING THE PROCEDURE: FENTANYL,HEPARIN DRIP, VERSED (Please see PhysioLog report for complete list of medicationsused.) Referring Physician: CAROL HAYES,HARDEEP Andino Referring Physician 2: LUZ HAYES,GRACE Payton Referring Physician 3: JOAQUÍN CARPENTER MD Interventional Attending: Germaine HAYES, José Miguel Interventional Fellow: Cecilia HAYES, Burke As the attending, supervising teaching manager, I was present for the entire procedure. Signature date/time: 09/13/2009 15:28:19 Shankar Tyson MD CARDIAC CATH [facility] * (ABNORMAL) GLUCOSE, GLUCOMETER (09/10/2009 7:21 EST) Glucose, Fingerstick 132(H) 70 - 100 mg/dl [facility] Blending Kettle Tender ID [id number] Test Performed by Nursing Services [facility] 09/10/2009 7:21 EST 09/10/2009 7:22 EST Grace Escobar MD CHEMISTRY & BLOOD GA S ORDERABLES Performing Organization Address [facility] de Phone Number [facility] [address] [place] [address] * CREATININE (09/10/2009 4:08 EST) Creatinine 0.80 0.7 - 1.5 mg/dl [facility] GFR, Calculated >60 ml/min/1.7 3m2 [facility] Blood specimen (specimen) 09/10/2009 4:08 EST 09/10/2009 4:29 EST Shankar Tyson MD CHEMISTRY & BLOOD GAS ORDERABLES Performing Organization Address [facility] Phone Number [facility] [address] [place] [address] * BUN (09/10/2009 4:08 EST) BUN 11 10 - 26 mg/dl [facility] Blood specimen (specimen) 09/10/2009 4:08 EST 09/10/2009 4:29 EST Shankar Tyson MD CHEMISTRY & BLOOD GAS ORDERABLES Performing Organization Address [facility] Phone Number [facility] [address] [place] [address] * ELECTROLYTES (09/10/2009 4:08 EST) Sodium 136 136 - 145 mEq/L [facility] Potassium 4.0 3.5 - 5.0 mEq/L [facility] Chloride 100 96 - 110 mEq/L [facility] CO2 28 24 - 32 mEq/L [facility] Blood specimen (specimen) 09/10/2009 4:08 EST 09/10/2009 4:29 EST Shankar Tyson MD CHEMISTRY & BLOOD GAS ORDERABLES Performing Organization Address [facility]/ZIP Co de Phone Number [facility] [address] [place] [address] * HEMAGRAM (09/10/2009 4:08 EST) WBC 6.95 4.0 - 10.4 K/cmm [facility] RBC 4.94 4.36 - 5.78 M/cmm [facility] Hemoglobin 15.0 13.8 - 17.3 gm/dl [facility] HCT 42.9 39.5 - 50.2 % [facility] MCV 87 81 - 95 fl [facility] MCH 30.3 27.6 - 33.0 pg [facility] MCHC 34.9 32.8 - 36.4 gm/dl [facility] PLT 208 141 - 320 K/cmm [facility] RDW-CV 13.2 11.8 - 14.1 % [facility] Blood specimen (specimen) 09/10/2009 4:08 EST 09/10/2009 4:29 EST Shankar Tyson MD HEMATOLOGY & PF4 ORDERABLES Performing Organization Address [facility] de Phone Number [facility] [address] [place] [address] * (ABNORMAL) PTT (09/10/2009 4:08 EST) PTT 75(H) 20 - 35 secs [facility] Comment:Therapeutic Heparin range: 60-100 seconds Blood specimen (specimen) 09/10/2009 4:08 EST 09/10/2009 4:29 EST Shankar Tyson MD HEMATOLOGY & PF4 ORDERABLES Performing Organization Address [facility] Co de Phone Number [facility] [address] [place] [address] * HEMOGLOBIN A1C (09/10/2009 4:08 EST) Hemoglobin A1C 6.8 % [facility] Comment: Reference Range: <6% Normal Range ADA guidelines: The A1c goal for non adults in general is <7% The A1c goal for selected individual patients is as close to normal (<6%) as possible without significant hypoglycemia. Est Avg Glucose 148 mg/dl [facility] Comment: eAG represents the A1c result expressed as average glucose in mg/dl. Blood specimen (specimen) 09/10/2009 4:08 EST 09/10/2009 4:29 EST Herminio Garcia MD CHEMISTRY & BLOOD GA S ORDERABLES Performing Organization Address [facility] de Phone Number [facility] [address] [place] [address] * TROPONIN I (09/10/2009 4:08 EST) Troponin I pre 2011 0.07 <0.81 ng/ml [facility] Comment: Reference Range: Normal: ??Less than 0.05 Indeterminate: ??0.05-0.80 Positive: ??Greater than 0.80 Blood specimen (specimen) 09/10/2009 4:08 EST 09/10/2009 4:29 EST Shankar Tyson MD CHEMISTRY & BLOOD GAS ORDERABLES Performing Organization Address [facility] Phone Number [facility] [address] [place] [address] * CK MB WITH TOTAL CK (09/10/2009 4:08 EST) Pathologist [facility] CK 108 0 - 250 U/L [facility] MB 1.2 0 - 5.0 ng/ml [facility] CK-MB Index Not calculated , normal MB. 0 - 2.5 [facility] Blood specimen (specimen) 09/10/2009 4:08 EST 09/10/2009 4:29 EST Shankar Tyson MD CHEMISTRY & BLOOD GAS ORDERABLES Performing Organization Address [facility] de Phone Number [facility] [address] [place] [address] * TROPONIN I (09/09/2009 21:13 EST) Troponin I pre 2011 0.07 <0.81 ng/ml [facility] Comment: Reference Range: Normal: ??Less than 0.05 Indeterminate: ??0.05-0.80 Positive: ??Greater than 0.80 Blood specimen (specimen) 09/09/2009 21:13 EST 09/09/2009 21:17 EST Shankar Tyson MD CHEMISTRY & BLOOD GAS ORDERABLES Performing Organization Address [facility] de Phone Number [facility] [address] [place] [address] * CK MB WITH TOTAL CK (09/09/2009 21:13 EST) Pathologist [facility] CK 86 0 - 250 U/L [facility] MB 0.9 0 - 5.0 ng/ml [facility]-MB Index Not calculated , normal MB. 0 - 2.5 [facility] Blood specimen (specimen) 09/09/2009 21:13 EST 09/09/2009 21:17 EST Shankar Tyson MD CHEMISTRY & BLOOD GAS ORDERABLES Performing Organization Address [facility] de Phone Number [facility] [address] [place] [address] * (ABNORMAL) GLUCOSE, GLUCOMETER (09/09/2009 20:30 EST) [facility] Glucose, Fingerstick 227(H) 70 - 100 mg/dl [facility] Blending Kettle Tender ID [id number] Test Performed by Nursing Services [facility] 09/09/2009 20:3 0 EST 09/09/2009 20:47 EST Grace Escobar MD CHEMISTRY & BLOOD GA S ORDERABLES Performing Organization Address [facility] Phone Number [facility] [address] [place] [address] * ELEVATED GLUCOSE (09/09/2009 19:28 EST) [facility] Elevated Glucose Screening glucose greater than 180 mg/dl. Please order follow up hemoglobin A1c. [facility] 09/09/2009 19:2 8 EST 09/09/2009 20:07 EST Shankar Tyson MD CHEMISTRY & BLOOD GAS ORDERABLES Performing Organization Address [facility] Co de Phone Number [facility] [address] [place] [address] * HOLD BLUE TOP (09/09/2009 19:28 EST) Hold Blue Top Sample for coagulation will be discarded after 4 hours [facility] 09/09/2009 19:2 8 EST 09/09/2009 20:07 EST Shankar Tyson MD LAB INFO SERVICE AND SUPPORT & PHONE RESULT Performing Organization Address [facility] de Phone Number [facility] [address] [place] [address] * PTT (09/09/2009 19:28 EST) PTT Duplicate Test Request 20 - 35 secs [facility] Blood specimen (specimen) 09/09/2009 19:28 EST 09/10/2009 10:06 EST Herminio Garcia MD HEMATOLOGY & PF4 ORD ERABLES Performing Organization Address [facility] Co de Phone Number [facility] [address] [place] [address] * (ABNORMAL) SCREENING GLUCOSE (09/09/2009 19:28 EST) Glucose, Screening 241(H) 70 - 100 mg/dl [facility] Blood specimen (specimen) 09/09/2009 19:28 EST 09/09/2009 20:07 EST Shankar Tyson MD CHEMISTRY & BLOOD GAS ORDERABLES Performing Organization Address [facility] Co de Phone Number [facility] [address] [place] [address] * MAGNESIUM (09/09/2009 19:28 EST) Magnesium 1.8 1.7 - 2.8 mg/dl [facility] Blood specimen (specimen) 09/09/2009 19:28 EST 09/09/2009 20:07 EST Narrative Authorizing Provider Result Juan Manuel Tyson MD CHEMISTRY & BLOOD GAS ORDERABLES Performing Organization Address [facility] de Phone Number [facility] [address] [place] [address] * CREATININE (09/09/2009 19:28 EST) Creatinine 0.80 0.7 - 1.5 mg/dl [facility] GFR, Calculated >60 ml/min/1.7 3m2 [facility] Blood specimen (specimen) 09/09/2009 19:28 EST 09/09/2009 20:07 EST Narrative Authorizing Provider Result Juan Manuel Tyson MD CHEMISTRY & BLOOD GAS ORDERABLES Performing Organization Address [facility] Phone Number [facility] [address] [place] [address] * BUN (09/09/2009 19:28 EST) BUN 11 10 - 26 mg/dl [facility] Blood specimen (specimen) 09/09/2009 19:28 EST 09/09/2009 20:07 EST Narrative Authorizing Provider Result Juan Manuel Tyson MD CHEMISTRY & BLOOD GAS ORDERABLES Performing Organization Address [facility] Phone Number [facility] [address] [place] [address] * (ABNORMAL) ELECTROLYTES (09/09/2009 19:28 EST) Sodium 136 136 - 145 mEq/L [facility] Potassium 4.1 3.5 - 5.0 mEq/L [facility] Chloride 100 96 - 110 mEq/L [facility] CO2 23(L) 24 - 32 mEq/L [facility] Blood specimen (specimen) 09/09/2009 19:28 EST 09/09/2009 20:07 EST Narrative Authorizing Provider Result Juan Manuel Tyson MD CHEMISTRY & BLOOD GAS ORDERABLES Performing Organization Address [facility]/ZIP Co de Phone Number [facility] [address] [place] [address] * PTT (09/09/2009 19:28 EST) PTT 35 20 - 35 secs [facility] Comment:Therapeutic Heparin range: 60-100 seconds Blood specimen (specimen) 09/09/2009 19:28 EST 09/09/2009 20:07 EST Shankar Tyson MD HEMATOLOGY & PF4 ORDERABLES Performing Organization Address [facility] de Phone Number [facility] [address] [place] [address] * PROTIME (09/09/2009 19:28 EST) Pro Time 13.8 12.2 - 15.5 secs [facility] Comment:Note new prothrombin time reference range effective 09 I.N.R. 1.0 0.9 - 1.1 Ratio [facility] Comment: Moderate Intensity Coumadin INR = 2.0-3.0 Adjustments in anticoagulant therapy dose should be based upon the INR and NOT the Pro Time. Blood specimen (specimen) 09/09/2009 19:28 EST 09/09/2009 20:07 EST Narrative Authorizing Provider Result Juan Manuel Tyson MD HEMATOLOGY & PF4 ORDERABLES Performing Organization Address [facility] de Phone Number [facility] [address] [place] [address] * HEMAGRAM (09/09/2009 19:28 EST) WBC 8.52 4.0 - 10.4 K/cmm [facility] RBC 4.88 4.36 - 5.78 M/cmm [facility] Hemoglobin 14.7 13.8 - 17.3 gm/dl [facility] HCT 42.6 39.5 - 50.2 % [facility] MCV 87 81 - 95 fl [facility] MCH 30.1 27.6 - 33.0 pg [facility] MCHC 34.4 32.8 - 36.4 gm/dl [facility] PLT 225 141 - 320 K/cmm [facility] RDW-CV 13.3 11.8 - 14.1 % [facility] Blood specimen (specimen) 09/09/2009 19:28 EST 09/09/2009 20:07 EST Shankar Tyson MD HEMATOLOGY & PF4 ORDERABLES Performing Organization Address [facility] de Phone Number [facility] [address] [place] [address] * (ABNORMAL) GLUCOSE, GLUCOMETER (09/09/2009 18:43 EST) Glucose, Fingerstick 108(H) 70 - 100 mg/dl [facility] Blending Kettle Tender ID [id number] Test Performed by Nursing Services [facility] 09/09/2009 18:4 3 EST 09/09/2009 18:45 EST Grace Escobar MD CHEMISTRY & BLOOD GA S ORDERABLES Performing Organization Address [facility] Phone Number [facility] [address] [place] [address] documented in this encounter Visit Diagnoses Diagnosis CAD (coronary artery disease) Coronary atherosclerosis of unspecified type of vessel, [place] or graft Diabetes mellitus ([facility]) Type II or unspecified type diabetes mellitus without mention of complication, not stated as uncontrolled documented in this encounter Administered Medications Inactive Administered Medications - up to 3 most recent administrations Medication Order MAR Action Action Date Dose Rate Site amitriptyline (ELAVIL) tablet 20 mg 20 mg, oral, AT BEDTIME, First dose on Thu09/09/09 at 2100, Until Discontinued, Routine Given 09/10/2009 21:00 EST 20 mg Given 09/09/2009 20:51 EST 20 mg amlodipine (NORVASC) tablet 10 mg 10 mg, oral, DAILY, First dose (after last modification) on Tu09/11/09 at 0900, Until Discontinued, Routine Given 09/11/2009 9:00 EST 10 mg amlodipine (NORVASC) tablet 5 mg 5 mg, oral, DAILY, First dose on Thu09/10/09 at 0900, Until Discontinued, Routine Given 09/10/2009 7:22 EST mg amlodipine (NORVASC) tablet 5 mg 5 mg, oral, NOW X1, 1 dose, On Thu09/10/09 at 1100, Routine Given 09/10/2009 12:20 EST 5 mg aspirin tablet 325 mg 325 mg, oral, DAILY, First dose on Thu09/10/09 at 0900, Until Discontinued, Routine Given 09/11/2009 9:00 EST 325 mg Given 09/10/2009 7:46 EST 325 mg bacitracin zinc 500 unit/g ointment topical (top), DAILY, First dose on Thu09/09/09 at 1900, Until Discontinued Given 09/11/2009 9:00 EST Given 09/10/2009 11:43 EST Given 09/09/2009 19:00 EST clopidogrel (PLAVIX) tablet 75 mg 75 mg, oral, DAILY, First dose on Thu09/10/09 at 0900, Until Discontinued, Routine Given 09/10/2009 7:45 EST 75 mg heparin in 1/2 NS 25,000 unit/250 mL infusion 1 dose, Starting on [place] 09/09/09 at 1738, Until Thu09/09/09 at 1858 heparin in 1/2 NS 25,000 unit/250 mL infusion 16 Units/kg/hr ? 85.6 kg Adjusted weight (rounded to 13.7 mL/hr), intravenous, CONTINUOUS, Starting on Thu09/09/09 at 1915, Until Thu09/10/09 at 1022, Routine Rate Documented 09/10/2009 4:51 EST 16 Units/kg/hr 13.7 mL/hr Rate Change 09/09/2009 21:19 EST 16 Units/kg/hr 13.7 mL/hr Given 09/09/2009 18:58 EST heparin injection 6,000 Units 6,000 Units (70 Units/kg ? 85.6 kg Adjusted weight), intravenous, PRN, Starting on Thu09/09/09 at 1815, Until Thu09/10/09 at 1022, Other, Routine Given 09/09/2009 21:[address] 6,000 Units lisinopril (PRINIVIL, ZESTRIL) tablet 5 mg 5 mg, oral, DAILY, First dose on Thu09/10/09 at 0900, Until Discontinued, Routine Given 09/11/2009 9:00 EST 5 mg Given 09/10/2009 7:47 EST 5 mg metoprolol XL (TOPROL-XL) tablet 150 mg 150 mg, oral, DAILY, First dose on Thu09/10/09 at 0900, Until Discontinued, Routine Given 09/11/2009 9:00 EST 150 mg Given 09/10/2009 7:48 EST 150 mg Prasugrel (EFFIENT) tablet Tab 10 mg 10 mg, oral, DAILY, First dose on Thu09/11/09 at 0900, Until Discontinued, Routine Given 09/11/2009 9:00 EST 10 mg simvastatin (ZOCOR) tablet 80 mg 80 mg, oral, AT BEDTIME, First dose on Thu09/09/09 at 2100, Until Discontinued, Routine Given 09/10/2009 21:00 EST 8 0 mg Given 09/09/2009 20:51 EST 80 mg sodium chloride 0.9 % (NS) infusion at 75 mL/hr, intravenous, CONTINUOUS, Starting on Thu09/10/09 at 1045, Until Thu09/11/09 at 1455, Routine New Bag 09/10/2009 10:45 EST 75 m L/hr sodium chloride 0.9 % flush 3 mL 3 mL, intravenous, EVERY 8 HOURS, First dose on Thu09/09/09 at 1845, Until Discontinued, Routine Given 09/11/2009 8:00 EST 3 mL Given 09/11/2009 0:00 EST 3 mL Given 09/10/2009 17:12 EST 3 mL documented in this encounter Discontinued Medications Medication Sig Discontinue Reason Start Date End Da te metformin (GLUCOPHAGE) 1,000 mg tabletIndications:typ e 2 diabetes mellitus Take by mouth 2 times daily with meals. Restart Metformin Thu Take as previously prescribed Metformin 1000 mg in the morning and Metformin 500 mg each evening, Indications: TYPE 2 DIABETES MELLITUS 09/07/2009 09/10/2009 clopidogrel (PLAVIX) 75 mg tablet Take 1 Tab by mouth daily. Plavix 75 mg daily uninterrupted for a minimum of one year Do not stop or interrupt this medication withour discussing with teaching manager 09/07/2009 09/10/2009 amlodipine (NORVASC) 5 mg tablet Take 1 Tab by mouth daily. Increased dose of amlodipine 09/07/2009 09/11/2009 documented as of this encounter Active and Recently Administered Medications Times are shown in EST. Scheduled Medication Order 09/09/2009 09/10/2009 09/11/2009 amitriptyline (ELAVIL) tablet 20 mg (CANCELED) 20 mg, oral, AT BEDTIME, First dose on 09/09/09 at 2100, Until Discontinued, Routine 2050 (Given - Provider: Leonora Kent) 2100 (Given - Provider: Cheli Kulkarni RN) amlodipine (NORVASC) tablet 10 mg 10 mg, oral, DAILY, First dose (after last modification) on Thu09/11/09 at 0900, Until Discontinued, Routine 09 (Given - Provider: Felisa Holland) amlodipine (NORVASC) tablet 5 mg (CANCELED) 5 mg, oral, DAILY, First dose on Thu09/10/09 at 0900, Until Discontinued, Routine 721 (Given - Provider: Israel Roach RN) amlodipine (NORVASC) tablet 5 mg (COMPLETED) 5 mg, oral, NOW X1, 1 dose, On Thu09/10/09 at 1100, Routine 1220 (Given - Provider: Israel Roach RN) aspirin tablet 325 mg (CANCELED) 325 mg, oral, DAILY, First dose on Thu09/10/09 at 0900, Until Discontinued, Routine 0746 (Given - Provider: Israel Roach RN)0900 (Canceled Entry - Provider: Israel Roach RN) 0900 (Given - Provider: Felisa Holland) bacitracin zinc 500 unit/g ointment (CANCELED) topical (top), DAILY, First dose on 09/09/09 at 1900, Until Discontinued 1900 (Given - Provider: Carlos Reyez) 1143 (Given - Provider: Israel Roach RN) 0900 (Given - Provider: Felisa Holland) clopidogrel (PLAVIX) tablet 75 mg (CANCELED) 75 mg, oral, DAILY, First dose on Thu09/10/09 at 0900, Until Discontinued, Routine 0745 (Given - Provider: Israel Roach RN)0900 (Canceled Entry - Provider: Israel Roach RN) lisinopril (PRINIVIL, ZESTRIL) tablet 5 mg (CANCELED) 5 mg, oral, DAILY, First dose on 2/22/10 at 0900, Until Discontinued, Routine 0747 (Given - Provider: Israel Roach RN)0900 (Canceled Entry - Provider: Israel Roach RN) 0900 (Given - Provider: Felisa Holland) metoprolol XL (TOPROL-XL) tablet 150 mg (CANCELED) 150 mg, oral, DAILY, First dose on Thu09/10/09 at 0900, Until Discontinued, Routine 0748 (Given - Provider: Israel Roach RN)0900 (Canceled Entry - Provider: Israel Roach RN) 0900 (Given - Provider: Felisa Holland) Prasugrel (EFFIENT) tablet Tab 10 mg 10 mg, oral, DAILY, First dose on Thu09/11/09 at 0900, Until Discontinued, Routine 0900 (Given - Provider: Felisa Holland) simvastatin (ZOCOR) tablet 80 mg (CANCELED) 80 mg, oral, AT BEDTIME, First dose on Thu09/09/09 at 2100, Until Discontinued, Routine 2050 (Given - Provider: Leonora Kent) 2100 (Given - Provider: Cheli Kulkarni, JANNY) sodium chloride 0.9 % flush 3 mL (CANCELED) 3 mL, intravenous, EVERY 8 HOURS, First dose on Thu09/09/09 at 1845, Until Discontinued, Routine 1845 (Given - Provider: Carlos Reyez) 0000 (Given - Provider: Leonora Kent)0722 (Given - Provider: Israel Roach RN)1712 (Given - Provider: Israel Roach RN) 0000 (Given - Provider: Cheli Kulkarni RN)0800 (Given - Provider: Felisa Holland) Continuous Medication Order 09/09/2009 09/10/2009 09/11/2009 heparin in 1/2 NS 25,000 unit/250 mL infusion (CANCELED) 16 Units/kg/hr ? 85.6 kg Adjusted weight (rounded to 13.7 mL/hr), intravenous, CONTINUOUS, Starting on 09/09/09 at 1915, Until Thu09/10/09 at 1022, Routine 1858 (Given - Provider: Carlos Reyez)2119 (Rate Change - Provider: Leonora Kent) 0451 (Rate Documented - Provider: Leonora Kent) sodium chloride 0.9 % (NS) infusion (CANCELED) at 75 mL/hr, intravenous, CONTINUOUS, Starting on 09/10/09 at 1045, Until Thu09/11/09 at 1455, Routine 1045 (New Bag - Provider: Israel Roach RN)1900 (Not Given - Provider: Cheli Kulkarni RN - Reason: Patient/family refused) PRN Medication Order 09/09/2009 09/10/2009 09/11/2009 heparin injection 6,000 Units (CANCELED)(Linked Group 1) 6,000 Units (70 Units/kg ? 85.6 kg Adjusted weight), intravenous, PRN, Starting on Thu09/09/09 at 1815, Until Thu09/10/09 at 1022, Other, Routine 2120 (Given - Provider: Leonora Kent) Linked Groups Order Group 1: heparin injection 6,000 Units (CANCELED)Jump to med 6,000 Units (70 Units/kg ? 85.6 kg Adjusted weight), intravenous, PRN, Starting on Thu09/09/09 at 1815, Until Thu09/10/09 at 1022, Other, Routine Or heparin injection 3,000 Units (CANCELED) 3,000 Units (35 Units/kg ? 85.6 kg Adjusted weight), intravenous, PRN, Starting on Thu09/09/09 at 1815, Until Thu09/10/09 at 1022, Other, Routine documented in this encounter Orders Medications Ordered That [place] ht Not Have Been Administered Count Last Ordered Date First Ordered Date isosorbide mononitrate (IMDU R) CR tablet 60 mg 1 09/10/2009 acetaminophen (TYLENOL) tablet 650 mg 1 dextrose 50 % solution 12.5 g 1 09/09/2009 glucagon (human recombinant) injection 1 mg 1 09/09/2009 heparin in 07/21 NS 25,000 uni t/250 mL infusion 2 09/09/2009 heparin injection 3,000 Units 1 09/09/2009 insulin aspart (NOVOLOG FlexPen) injection 1 09/09/2009 morphine injection 2-4 mg 1 09/09/2009 nitroGLYCERIN (NITROSTAT) SL tablet 0.4 mg 2 09/09/2009 EKG Orders Without Results Count Last Ordered D ate First Ordered Date EKG 12-LEAD 3 09/11/2009 09/10/2009 Diet Count Last Ordered Date First Orde red Date DIET CONSISTENT CARBOHYDRATE 1 09/10/2009 Nursing Count Last Ordered Date First Orde red Date CARDIAC MONITORING 1 09/10/2009 ENCOURAGE FLUIDS 1 09/10/2009 NURSING COMMUNICATION 1 09/10/2009 ASSESS FALL RISK 2 09/09/2009 HEIGHT AND WEIGHT 1 09/09/2009 MEASURE WEIGHT 1 09/09/2009 Consult Count Last Ordered Date First Orde red Date CONSULT NUTRITION 1 09/10/2009 Admission Count Last Ordered Date First Orde red Date ADMIT TO INPATIENT 1 09/11/2009 NOTIFY PPS OF DISCHARGE COMPLETE 1 09/11/19 10 ADMIT TO OBSERVATION 1 09/09/2009 Discharge Count Last Ordered Date First Orde red Date DISCHARGE PATIENT 1 09/11/2009 documented in this encounter Care Teams Dado Operator Relationship Specialty Start Date End Date Joaquín Carpenter MD [address] [place] [address] PCP - General 09/04/09 10/26/12 documented as of this encounter
== END 2024-03-04 00:42 ==
PROVIDERS: PCP Nurse Practitioner Family; Visit Provider Student in an Organized Health Care Education/Training Program
DX: K74.69 Other cirrhosis of liver
CPT/HCPCS: 76705

== ENCOUNTER → 2024-03-28 08:14 | Outpatient (BNVA) | payer MEDICARE, BC, SELFPAY | PROVIDERS: PCP Nurse Practitioner Family; Referring Provider Nurse Practitioner Family; Visit Provider Student in an Organized Health Care Education/Training Program | DX: K74.60 Unspecified cirrhosis of liver (principal) | CPT/HCPCS: 99213 ==

== ENCOUNTER 2024-04-14 02:55 | Outpatient (CLI) | payer MEDICARE, BC, SELFPAY ==
[2024-04-14 11:33] LABS: Hemoglobin A1C 7.1 % (<5.7)
[2024-04-14 11:34] LABS: Anion Gap 8.6 mmol/L (3-11); BUN 16 mg/dL (7-18); CO2 26.4 mmol/L (21.0-32.0); CREATININE 1.2 mg/dL (0.70-1.30); Calcium 9.2 mg/dL (8.5-10.1); Chloride 99 mmol/L (98-107); Estimated GFR 65.46 (mL/min/1.73m2); Glucose 133 mg/dL (74-106); Potassium 4.3 mmol/L (3.5-5.1); Sodium 134 mmol/L (136-145)
[2024-04-16 09:22] LABS: Fructosamine 278 mcmol/L (200 - 285)
== END 2024-04-14 02:56 | disposition home or self-care (01) ==
LOC: LBO 02:55
PROVIDERS: PCP Nurse Practitioner Family; Visit Provider Internal Medicine Endocrinology, Diabetes & Metabolism
DX: E11.65 Type 2 diabetes mellitus with hyperglycemia (principal)
CPT/HCPCS: 36415; 80048; 82985; 83036

== ENCOUNTER 2024-05-06 04:32 | Emergency (ER) | payer MEDICARE, BC, SELFPAY ==
[2024-05-06 04:35] VITALS: BP 181/51; PULSE 73; RESP 18; TEMP 36.5; O2SAT 99
--- NOTE | 2024-05-06 04:45 | DI.CT_ITS ---
Exam(s) CT ABDOMEN PELVIS W EXAM: CT ABDOMEN PELVIS W CLINICAL HISTORY: lower abd pain, hx divertic TECHNIQUE: Imaging Protocol: Axial computed tomography images with coronal and sagittal reformatted images were created and reviewed. CONTRAST MATERIAL: Intravenous: Omnipaque 350 Contrast volume:100 mL Oral: No COMPARISON: CT CT ABDOMEN PELVIS W from 01/12/2024 FINDINGS: ABDOMEN: Lung Bases: Normal where visualized. Liver: Normal density. No measurable mass. Portal, Superior Mesenteric, and Splenic Veins: Unremarkable. Gallbladder and Biliary Tract: Status post cholecystectomy. No significant biliary ductal dilatation . Pancreas: Normal density, no abnormal calcifications or inflammatory process. Spleen: Normal. Adrenals: Stable mild nodularity of the left adrenal gland. No follow-up is recommended. The right adrenal gland is unremarkable. Kidneys: Normal size, contour and axis. No radiodense stones or obstructive uropathy. Simple cyst in the right kidney. No follow-up is recommended. Tiny hypodensity in the superior pole of the right k idney. No follow-up is recommended. Abdominal Aorta: Abdominal portion non-dilated. Atherosclerotic calcification is present. Bowel: There is diverticulosis of the colon. There is bowel wall thickening and pericolonic inflamma tion in the mid sigmoid colon suspicious for acute diverticulitis. No abscess or free air. There is no evidence of bowel obstruction. The remainder of the bowel is unremarkable. Appendix is unremark able. Peritoneal Cavity: No ascites, collection or mesenteric inflammatory response. No free air. Lymph Nodes: Within normal limits. Bones: Within normal limits for the patient's age. Patient has a left total hip replacement. Soft Tissues: There is a fat containing right inguinal hernia. PELVIS: Bladder: Symmetric distention, no gross wall thickening. Reproductive Organs: Unremarkable as visualized. Lymph Nodes: Within normal limits. Bones: Within normal limits for the patient's age. IMPRESSION: Colonic diverticulosis with bowel wall thickening and pericolonic inflammation in the mid sigmoid col on consistent with acute diverticulitis. No evidence of abscess or pneumoperitoneum. An examination is recommended for follow up after treatment to exclude underlying neoplasm. RADIATION DOSE DELIVERED: 788.7mGy.cm Total DLP DATA REPOSITORY: All CT scans at this facility are submitted to the National Radiology Data Registry (NRDR) Dose Index Registry (DIR) with the [employer] (A[employer]). RADIATION OPTIMIZATION: All CT scans at this facility use at least one of these dose optimization te chniques: automated exposure control; mA and/or kV adjustment per patient size (includes targeted exa ms where dose is matched to clinical indication); or iterative reconstruction.
--- NOTE | 2024-05-06 04:46 | W.ED.GENAD ---
Discharge Plan Disposition Patient Disposition: Home Condition: Good Discharge Details Clinical Impression: Diverticulitis Primary Care Provider: David Ruiz ED Provider: Amy Queen Home Meds and New Rx's Prescriptions: New amoxicillin-pot clavulanate 1,000-62.5 mg tablet extended release 12 hr 1 tab PO Q12H Qty: 10 0RF Continued multivitamin Tablet 1 tab PO DAILY cyclosporine [Restasis] 0.05 % dropperette 1 drp ophthalmic (eye) Q12H insulin lispro [Humalog KwikPen Insulin] 100 unit/mL insulin pen 30 unit subcut TID Qty: 90 4RF ranolazine 500 mg tablet extended release 12 hr 500 mg PO BID cholecalciferol (vitamin D3) 25 mcg (1,000 unit) capsule 25 mcg PO DAILY insulin glargine U-300 conc [Toujeo Max U-300 SoloStar] 300 unit/mL (3 mL) insulin pen 50 unit subcut DAILY magnesium oxide 400 mg magnesium capsule 400 mg PO DAILY nitroglycerin 0.4 MG tablet, sublingual 0.4 mg Sublingual PRN PRN metoprolol succinate [Toprol XL] 100 MG tablet extended release 24 hr 150 mg PO QAM Patient Comments: NO LONGER TAKING PER PT 02/26/23 lisinopril 5 MG tablet 5 mg PO QAM amlodipine 10 MG tablet 10 mg PO QAM rosuvastatin [Crestor] 40 MG tablet 40 mg PO DAILY dapagliflozin propanediol [Farxiga] 5 mg tablet 10 mg PO DAILY Patient Comments: TAKE ONE TABLET BY MOUTH EVERY DAY aspirin 81 mg Tablet,Chewable 81 mg PO DAILY trazodone 50 mg Tablet 50 mg PO QHS Discharge Instructions Instructions: Diverticulitis Additional Instructions: Take the antibiotic twice a day for the next 5 days. Follow a diveritculitis diet. Call your primary care doctor today to schedule an appointment for within the next 3 days to follow up on your visit here. You will need to followup with surgery- a referral has been sent. If you do not here from them, please followup in Nov as scheduled for your EGD and mention your diverticulitis at that visit. Return to the emergency department for new or worsening symptoms including fever, new/different/worse abdominal pain, feeling like you are going to pass out, vomiting, or if you have any other concerns. Referrals: David Ruiz NP [Primary Care Provider] - [facility] General Mode of arrival: ambulatory. Date/Time Provider Initiated Documentation: 05/06/24 04:44. Limitations to Documentation: no limitations. Information obtained by: patient. HPI Narrative: 68yo M with hx T2DM, HTN, HLD, cirrhosis, cystic kidney disease, diverticulitis, presenting for lower abdominal pain x 4 days. Pain is dull, constant, crampy, and feels like prior episodes of diverticulitits. Has been slowly worsening over the past several days. No upper abdominal pain, testicular pain, dysuria, hematuria, penile discharge, or flank pain. Last BM this morning, small, formed, brown. No diarrhea, constipation, melena, or bloody stools. No nausea or vomiting. Has not taken pain medication at home; avoids tylenol due to cirrhosis and NSAIDs due to kidney disease. Otherwise in his usual state of health with no fevers, chills, rash, or other concerns. Related Data Home Medications ?Medication ?Instructions ?Recorded ?Confirmed amlodipine 10 mg tablet 10 mg PO QAM 07/23/14 05/06/24 lisinopril 5 mg tablet 5 mg PO QAM 07/23/14 05/06/24 metoprolol succinate 100 mg 150 mg PO QAM 07/23/14 05/06/24 tablet,extended release 24 hr (Toprol XL) nitroglycerin 0.4 mg sublingual 0.4 mg sublingual PRN PRN 07/23/14 05/06/24 tablet rosuvastatin 40 mg tablet (Crestor) 40 mg PO DAILY 07/23/14 05/06/24 trazodone 50 mg tablet 50 mg PO QHS 12/01/18 05/06/24 ranolazine 500 mg tablet,extended 500 mg PO BID 02/04/22 05/06/24 release,12 hr multivitamin 1 tab PO DAILY 04/17/22 05/06/24 cholecalciferol (vitamin D3) 25 25 mcg PO DAILY 05/22/22 05/06/24 mcg (1,000 unit) capsule aspirin 81 mg chewable tablet 81 mg PO DAILY 02/26/23 05/06/24 dapagliflozin propanediol 5 mg 10 mg PO DAILY 04/23/23 05/06/24 tablet (Farxiga) insulin glargine U-300 conc 300 50 unit subcut DAILY 11/24/23 05/06/24 unit/mL (3 mL) subcutaneous pen (Toujeo Max U-300 SoloStar) magnesium oxide 400 mg PO DAILY 03/09/24 05/06/24 cyclosporine 0.05 % eye drops in a 1 drp ophthalmic (eye) Q12H 05/02/24 05/06/24 dropperette (Restasis) insulin lispro 100 unit/mL 30 unit (0.3 mL) subcut TID #90 mL 05/02/24 05/06/24 subcutaneous pen (Humalog KwikPen (U-100) Insulin) amoxicillin-potassium clavulanate 1 tab PO Q12H #10 tabs 05/06/24 1,000 mg-62.5 mg tablet,ext.rel 12hr Previous Rx's ?Medication ?Instructions ?Recorded insulin lispro 100 unit/mL 30 unit (0.3 mL) subcut TID #90 mL 05/02/24 subcutaneous pen (Humalog KwikPen (U-100) Insulin) amoxicillin-potassium clavulanate 1 tab PO Q12H #10 tabs 05/06/24 1,000 mg-62.5 mg tablet,ext.rel 12hr Allergies Allergy/AdvReac Type Severity Reaction Status Date / Time isosorbide AdvReac Other (See Verified 05/06/24 04:38 Comment) General Stated Complaint: Abd Prob ANDREA: 3 Review of Systems Narrative: see HPI Exam Narrative Exam Narrative: General: Alert, well appearing, well nourished, in no acute distress. Head: Normocephalic, atraumatic Neck: Trachea midline, ?Neck supple. ENT: ?MMM.? No oropharygeal lesions or exudate. Cardiac: ?RRR, no murmurs appreciated Resp: No respiratory distress. CTAB. Abd: ?Soft, non-distended, mildly TTP in RLQ and suprapubic region, moderately tender LLQ with no rebound or guarding. : ?No suprapubic tenderness. No CVA tenderness. Extremities: ?No deformities.? No peripheral edema. Neurologic: GCS 15. ? Moves all extremities freely against gravity Course Vital Signs Vital signs: Vital Signs Temperature 36.5 C 05/06/24 04:35 Pulse 73 05/06/24 04:35 Respiratory Rate 18 05/06/24 04:35 Blood Pressure 181/51 H 05/06/24 04:35 Pulse Oximetry 99 05/06/24 04:35 Temperature 36.5 C 05/06/24 04:35 Temperature Source Oral 05/06/24 04:35 Pulse 73 05/06/24 04:35 Respiratory Rate 18 05/06/24 04:35 Respiratory Effort Normal, Non-Labored 05/06/24 04:38 Blood Pressure 181/51 H 05/06/24 04:35 Blood Pressure Position Sitting 05/06/24 04:35 Pulse Oximetry 99 05/06/24 04:35 Oxygen Delivery Method Room Air 05/06/24 04:35 Oxygen Flow Rate 0 05/06/24 04:35 Pain Level 4 05/06/24 04:40 Medical Decision Making 68yo M with hx T2DM, HTN, HLD, cirrhosis, cystic kidney disease, diverticulitis, presenting for lower abdominal pain x 4 days. Systemically well. Normal BM yesterday. Hypertensive on arrival, vital signs otherwise reassuring. Lower abdomen TTP worse in the LLQ. No testicular pain to suggest torsion, orchitis, epididymitis. Most likely diverticulitis however pt has not had an episode in many years and does have a history of umbilical hernia repair; will evaluate for obstruction, acute diverticulitis/abscess/phelgmon, other intraabdominal pathology with CT imaging. Will give single dose of IV tylenol and toradol here for pain; benefit of single dose of each in the ED outweighs risk despite underlying liver/renal disease. Reviewed with patient that I would not advise continuing these at home without medical supervision. Ordered home morning BP meds. Labs reviewed as below, CBC with mild leukocytosis at 11 (non-specific) and no anemia, CMP with no actionable abnormalities and normal Cr and LFTs, lipase normal, lactate reassuring at 1.5, UA negative for infection. CT independently reviewed; no obstruction or free fluid on my view. Radiology read below with sigmoid diverticulitis. On reassessment patient reports feeling much better, denies pain. Abdomen non-tender. BP improved. Discussed options with patient; given age and co-morbidities considered hospital admission however he would much prefer to go home which with his uncomplicated diverticulitis, well appearance, and reassuring exam is not unreasonable. After shared decision making with patient elected to discharge home on course of Augmentin with routine surgical referral given multiple prior episodes. Discharged home; discharge instructions and return precautions were reviewed with patient who verbalized understanding. All questions were answered and he is in full agreement with the plan. Imaging Data Radiologic Study: Imaging: CT Scan Radiologist's impression: IMPRESSION: Sigmoid diverticulitis. Difficult to exclude underlying neoplasm. No evidence for rupture or abscess on this examination Lab Data Lab results reviewed: Yes I reviewed the patient's lab results. Labs: Laboratory Tests Range/Units 05/06/24 04:43 WBC (4.4-10.8) 10^3/uL 11.34 H RBC (4.36-5.78) 10^6/uL 5.14 Hgb (13.5-17.5) g/dL 14.9 Hct (40.0-50.0) % 44.7 MCV (80-95) fL 87 MCH (27.0-33.0) pg 29.0 MCHC (32.0-36.0) % 33.3 RDW (11.8-14.1) % 12.7 Plt Count (130-400) 10^3/uL 203 MPV (8.0-11.0) fL 9.9 Immature Gran % % 0.3 Neutrophils % % 65.9 Lymphocytes % % 23.4 Monocytes % % 9.3 Eosinophils % % 0.7 Basophils % % 0.4 Nucleated RBC % (0.0-0.3) % 0.0 Absolute Neutrophils (1.2-6.7) 10^3/uL 7.47 H Absolute Lymphocytes (1.2-3.4) 10^3/uL 2.65 Absolute Monocytes (0.1-0.8) 10^3/uL 1.05 H Absolute Eosinophils (0.0-0.7) 10^3/uL 0.08 Absolute Basophils (0.0-0.2) 10^3/uL 0.05 VBG Lactate (0.6-1.4) mmol/L 1.5 H Sodium (136-145) mmol/L 141 Potassium (3.5-5.1) mmol/L 4.2 Chloride (98-107) mmol/L 101 Carbon Dioxide (21.0-32.0) mmol/L 29.4 Anion Gap (3-11) mmol/L 10.6 BUN (7-18) mg/dL 14 Creatinine (0.70-1.30) mg/dL 0.9 Est GFR (CKD-EPI 2020) (mL/min/1.73m2) 92.45 Glucose (74-106) mg/dL 132 H Calcium (8.5-10.1) mg/dL 9.1 Total Bilirubin (0.2-1.0) mg/dL 1.00 AST (15-37) U/L 26 ALT (16-63) U/L 46 Alkaline Phosphatase (46-116) U/L 82 Total Protein (6.4-8.2) g/dL 7.8 Albumin (3.4-5.0) g/dL 3.5 Lipase (16-77) U/L 52 Quality:SDOH Health Related Social Needs: No Data to Display PFSH All Active Problems (Updated 05/06/24 @ 07:13 by Amy Queen MD) Diverticulitis (Chronic) Heart murmur (Acute) Muscle fasciculation (Acute) DEEPALI (obstructive sleep apnea) (Chronic) Acquired cystic kidney disease (Acute) Fatty liver disease, nonalcoholic (Acute) Nonulcer dyspepsia (Acute) Nonsustained paroxysmal ventricular tachycardia (Acute) RLS (restless legs syndrome) (Acute) Depression with anxiety (Acute) Obesity (Chronic) Vitamin D deficiency (Acute) HLD (hyperlipidemia) (Acute) Cirrhosis (Acute) Osteoarthritis of right hip (Acute) POCUS injection: 01/01/2024 Essential hypertension (Chronic) Atherosclerotic heart disease [place] coronary artery w/angina pectoris (Chronic) Diabetes mellitus type 2 in obese (Chronic) Tubular adenoma of colon (Chronic 03/27/17) Coronary artery disease (Chronic) Venous stasis dermatitis of left lower extremity (Acute) Chronic diarrhea (Acute) Medical History Diverticulitis Adenomatous colon polyp NSTEMI (non-ST elevated myocardial infarction) 02/2020-pt. denies he had a NSTEMI, but states he had angina but no heart attack 2019 9 stents placed Elevated LFTs Vertigo Unstable angina Per pt. states this is not current, occured over 1/5 years ago, follows up with research archaeologist last seen 11/25/22 Surgical History Status post debridement of bone spur left heel, Achilles tendon S/P right rotator cuff repair [facility] S/P cholecystectomy History of total left hip replacement (04/22/22) Status post carpal tunnel release of both wrists History of umbilical hernia repair Status post amputation of lesser toe of right foot Fifth toe was removed Excision, Distal Clavicle (05/11/15) DR BROWN/LEFT Coronary Stent 9 stents. Last placement on 02/11/16 Colonoscopy - MAC (03/27/17) Family History (Updated 05/02/24 @ 14:00 by Isa Clark) Mother Dementia Father Heart disease Hyperlipidemia Sister Breast cancer Brother Depression Heart disease Maternal Grandfather Heart disease Paternal Grandfather Heart disease Brother Heart disease Paternal Grandmother No problems noted. Paternal Grandfather Heart disease Social History (Updated 05/02/24 @ 16:09 by Isa Clark) Smoking/Tobacco Use Status: Former Tobacco Use tobacco type: cigarettes Quit Date: 07/20/92 Pack-years: 40 Tobacco: How many years used: 20 Second Hand Exposure: No Smoking risk assessment performed?: Yes Alcohol Intake: never Drug use: Current Sobriety Substance use type: marijuana and other Details: uses 0.5-1 THC gummy [facility], last use 12/03/22 Adopted: No Caregiver/Support person: No Household members: none Housing: apartment Number of Children: 0 number of grandchildren: 0 Education Level: high school Do you need help understanding health information?: Never current occupation: retired Sexually active: Yes Do you think of yourself as: straight/heterosexual Current gender identity: male What is your relationship status?: How often do you talk on the phone with friends or family?: three or more times per week How often do you get together with friends or relatives?: three or more times per week How often do you attend roman catholic or roman catholic services?: 1-3 times per year Do you belong to any clubs or organized social groups?: no Panel score (0-1 are the most socially isolated patients): 1 NHANES result reviewed/action taken: Yes What type of physical activity do you participate in: walking and bicycling Duration: 45-60 minutes/day Frequency: 3-4 times per week Mahi/Hoahaoism: Orthodoxy Special mahi needs: No Seatbelt use: always Helmet use: Yes Helmet use: always Drive intox or ride w/intox front end loader driver: No Firearms in home: No In current or past relationships, have you been: threatened and made to feel afraid Do you feel safe at home: Yes Do you feel safe in your relationship?: Yes Victim of physical abuse: No Victim of emotional abuse: No Victim of sexual abuse: No Would you like helpful sources: No
--- OUTSIDE RECORDS SUMMARY | 2024-05-06 04:51 | XMS_ITS | Encounter Summary ---
Author Organization [facility] Address [address] [place] [address] Care Team Providers Care Clean Rice Broker Name Role Phone MorroLilia galvanhrcharu Easton JENNIFER Primary Care Provider [phone] Reason for Referral * (Routine/Next Available) - Receiving Office to Obtain Authorization Specialty Diagnoses / Procedures Referred By Contac t Referred To Contact Procedures US OUTSIDE IMAGES BODY Imaging, External Referral ID Status Reason Start Date Expiration Date Visits Requested Visits Authorized [id number] Receiving Office to Obtain Authorization 03/04/2024 1 1 Reason for Visit * (Routine/Next Available) - Receiving Office to Obtain Authorization Specialty Diagnoses / Procedures Referred By Contac t Referred To Contact Procedures US OUTSIDE IMAGES BODY Imaging, External Referral ID Status Reason Start Date Expiration Date Visits Requested Visits Authorized [id number] Receiving Office to Obtain Authorization 03/04/2024 1 1 Encounter Details Date Type Department Care Team (Latest Contact Info) Description 03/04/2024 9:46 EDT - 03/04/2024 23:59 EDT Hospital Encounter [facility] Center Secondary Reads [place] Discharge Disposition: Home or Self Care Social [...] mg into the skin every 7 days. HUMALOG MIX 75-25 KWIKPEN 100 unit/mL (75-25) injectable pen Inject 50 Units into the skin 2 times daily. 10/07/2022 insulin glargine (LANTUS) 100 unit/mL injection Inject 30 Units into the skin 2 times daily. insulin glargine U-300 conc (TOUJEO MAX U-300 SOLOSTAR) 300 unit/mL (3 mL) subcutaneous pen Inject into the skin once daily. isosorbide mononitrate (IMDUR) 30 mg CR tablet Take 30 mg by mouth every morning. 15 mg, 1/2 tab lisinopril (PRINIVIL, ZESTRIL) 5 mg tablet Take 1 Tablet by mouth daily. magnesium oxide (MAG-OX) 400 mg (241.3 mg magnesium) tablet Take 1 Tablet by mouth at bedtime. 09/01/2023 metFORMIN (GLUCOPHAGE) 1,000 mg tablet Take 1,000 mg by mouth 2 times daily. METOPROLOL SUCCINATE ORAL Take 150 mg by mouth daily. Takes 3-50 mg. Tablets daily multivit-min/folic/vit K/lycop (MEN'S 50 PLUS DAILY FORMULA ORAL) Take by mouth. nitroGLYCERIN (NITROSTAT) 0.[address] 1 Tablet under the tongue as needed for Chest Pain. NONFORMULARY THC gummy - 1/2 every night ranolazine (RANEXA) 500 mg SR tablet Take 1 Tablet by mouth 2 times daily. 10/07/2022 rosuvastatin (CRESTOR) 40 mg tablet Take 1 [...] [facility] Gastroenterology - [address] [id number] Kera Tatum PA-C [address] [facility], [address] [place] [id number] 11/15/2024 18:30 EDT Office Visit [facility] Cardiology [place] [place] [address] Davian Almonte MD [address] [place], [place] [id number] documented as of this encounter Procedures Procedure Name Priority Date/Time Associated Diagnosis Comments US OUTSIDE IMAGES BODY Routine 03/04/2024 9:47 EDT documented in this encounter Results * US OUTSIDE IMAGES BODY (03/04/2024 9:47 EDT) Narrative 03/04/2024 9:47 EDT This is a non-reportable exam. External Imaging IMG OTHER IMAGING OR DERABLES documented in this encounter Visit Diagnoses Not on filedocumented in this encounter Care Teams Clean Rice Broker Relationship Specialty Start Date End Date Denise Hooker APRN [address] [place] [address] PCP - General 09/13/18 documented as of this encounter
--- OUTSIDE RECORDS SUMMARY | 2024-05-06 04:51 | XMS_ITS | Encounter Summary ---
Author Name [facility] [place] [facility] [place] Address [address] [place] [address] Care Team Providers Care Multiple Spindle Router Operator Name Role Phone WARNER ORTIZ Primary [...] PLAN WEIDM SADIE HDHP Jul 20, 2009 [id number] LESTERSRINIVAS CANDACEPema PATIENT [employer] ([id number]) PRESCRIPT ION Jul 20, 2017 [id number] SRINIVAS BATISTA KISHAN PATIENT MEDICARE (WNR) MEDICARE (M) PART B Apr 19, 2020 PART B [id number] LESTERSRINIVAS HOLLEY PATIENT MEDICARE (WNR) MEDICARE (M) PART A Oct 19, 2019 PART A [id number] SRINIVAS BATISTA PATIENT RESTAT PRESCRIPT ION CBA BLUE November 17, 2009 [id number] SRINIVAS BATISTA PATIENT Selected Encounter This section includes the information on record at [place] for the Encounter. Date/Time Encounter Type Encounter Description Reason Pro vider Source Dec 21, 2023 12:57 PM Outpatient Encounter ADMIN PAT ACTIVTIES (MASNONCT) IHE Encounter Template Text not used by [place] Plan of Treatment: Future Appointments (+ 6 months) and Future Tests (+/- 45 days) The Plan of Treatment section includes future care activities for the patient from all [place] treatmentfacilities. This section includes future appointments and future orders which are active, pending or scheduled. Future Appointments This section includes appointments that were scheduled to occur 6 months from the date of the Encounter, up to a maximum of 20 appointments. The data comes from all [place] treatment facilities. Appointment Date/Time Appointment Type Appointme nt Facility Name Dec 30, 2023 11:30 AM AMBULATORY - NONE [facility] Mar 02, 2024 08:20 AM AMBULATORY - NONE [facility] Mar 15, 2024 04:00 PM AMBULATORY - REHAB MEDICIN [facility] Mar 23, 2024 11:30 AM AMBULATORY - SURGERY [facility] Social History: Smoking Status (Most current) and Tobacco Use (All prior to encounter date) This section includes the most current, and the historical, smoking and tobacco- related health factors from the [place] facility where the Encounter took place. Current Smoking Status This section includes the most current smoking, or tobacco-related health factor, from the [place] facility where the Encounter took place. Date/Time Current Smoking Status Comment Yamilet ity Jan 26, 2003 10:05 AM QUIT TOBACCO USE > 7 YEARS AGO [facility] Tobacco Use History This section includes a history of the smoking, or tobacco-related health factors, that were collected on or before the date of the Encounter. The data comes from the [place] facility where the Encounter took place. Date/Time Smoking Status/Tobacco Use Comment F acility November 29, 2002 01:00 PM HISTORY OF SMOKING [facility] Advance Directives: All historical and current Section Date Range: From patient's date of to the date document was created. This section includes ALL of a patient's completed or amended [facility] Advance and Rescinded Directives. The entries below indicate that a directive exists for the patient, but an actual copy is not included with this document. The data comes from all [place] facilities. Date Advance Directives Provider Source November 23, 2017 ADVANCE DIRECTIVE JOI DEVRIES GUERRERO [facility] Encounter Notes: All associated encounter notes This section contains the clinical notes associated to the Encounter. Date/Time Encounter Note(s) Provider Source Dec 21, 2023 12:57 PM ADMINISTRATIVE NOT E: LOCAL TITLE: CCC: SCHEDULING ADMINISTRATION STANDARD TITLE: ADMINISTRATIVE NOTE DATE OF NOTE: DEC 21, 2023@12:57:53 ENTRY DATE: DEC 21, 2023@12:57:54 AUTHOR: [facility] [place] COSIGNER: URGENCY: STATUS: COMPLETED CCC: SCHEDULING ADMINISTRATION Has ADDENDA Patient Demographics Patient Name: CLAUDIA BATISTA Patient Primary Phone: [phone] Patient Primary [address]: [address] [place] [id number] Patient : 1955 Patient Age: 68 Caller/Recipient Relation to Patient: Self Administrative Administrative Note Reason: Paperwork Request Administrative Note Comments: VET is calling to request a referral for dermatology; VET states he has moles that are growing and changing; TW transferred to TRIAGE line; Please call to discuss [phone] /jayce/ [facility]UMN HENDRICKS 1 [facility] AMSA Signed: 12/21/2023 12:57 Receipt Acknowledged By: 12/21/2023 13:12 /jayce/ MARTINE ANTONY LPN 12/21/2023 13:47 /es/ OMEGA MENCHACA Registered Nurse 12/21/2023 ADDENDUM STATUS: COMPLETED MSAS are alerted to schedule /jayce/ MARTINE ANTONY LPN Signed: 12/21/2023 13:12 [facility]
--- OUTSIDE RECORDS SUMMARY | 2024-05-06 04:51 | XMS_ITS | Encounter Summary ---
Author Organization [facility] Address [address] [place] [address] Care Team Providers Care Value Stream Leader Name Role Phone Denise Hooker APRN Primary Care Provider [phone] Reason for Referral * Referral (Routine/Next Available) - Receiving Office to Obtain Authorization Specialty Diagnoses / Procedures Referred By Claire jacques Referred To Contact Gastroenterology Diagnoses Other cirrhosis of liver (HCC-CMS) Procedures UPPER ENDOSCOPY (EGD) Kera Tatum PA-C [address] [place] [phone] [address] Referral ID Status Reason Start Date Expiration Date Visits Requested Visits Authorized [id number] Receiving Office to Obtain Authorization 02/11/2024 1 1 * Radiology Services (Routine/Next Available) - Authorization Not Required Specialty Diagnoses / Procedures Referred By Claire jacques Referred To Contact Diagnostic Radiology Diagnoses Other cirrhosis of liver (HCC-CMS) Procedures US ABDOMEN LIMITED Kera Tatum PA-C [address] [id number] Referral ID Status Reason Start Date Expiration Date Visits Requested Visits Authorized [id number] Authorization Not Required 02/11/2024 1 1 Reason for Visit * Reason Comments Follow-up EST/ FU OV Encounter Details Date Type Department Care Team (Late st Contact Info) Description 02/11/2024 13:40 EDT Office Visit [facility] Gastroenterology - [address] [address] Kera Tatum PA-C [address] [place] [address], [facility], [address] [place] [address] Other cirrhosis of liver (HCC-CMS) [...] recommend meet with PCP; consider referral to bisque cleaner -- Hepatitis A and B vaccination series [...] Description 08/08/2024 13:00 EST Office Visit [facility] Gastroenterology - [address] [id number] Kera Tatum PA-C [address] [place] [address], [address] [place] [address] 11/15/2024 18:30 EDT Office Visit [facility] Cardiology - [address] [place], [place] [phone] Davian Almonte MD [address] [place] [phone] Scheduled Orders Name Type Priority Associated Diagnoses Orde r Schedule US ABDOMEN LIMITED Imaging Routine Other cirrhosis of liver (HCC-CMS) Expected: 03/13/2024 (Approximate), Expires: 08/13/2025 UPPER ENDOSCOPY (EGD) GI Routine Other cirrhosis of liver (HCC-CMS) Expected: 03/13/2024 (Approximate), Expires: 08/13/2025 documented as of this encounter Results * PROTIME (02/11/2024 15:02 EDT) I.N.R. 1.1 0.9 - 1.1 Ratio 02/11/2024 16:15 EDT [facility] Pro Time 12.1 9.7 - 12.8 secs 02/11/2024 16:15 EDT [facility] Blood VENOUS BLOOD / Unknown Venipuncture / Unknown 02/11/2024 15:02 EDT 02/11/2024 15:48 EDT Narrative [facility] - 02/11/2024 16:15 EDT Moderate Intensity Coumadin INR = 2.0-3.0 Adjustments in anticoagulant therapy dose should be based on the INR and NOT on the Protime. Kera Tatum PA-C HEMATOLOGY & PF4 ORDERABLES [facility] [address] [place] [address] * (ABNORMAL) COMPREHENSIVE METABOLIC PANEL (CMP) (02/11/2024 15:02 EDT) Sodium 141 136 - 145 mmol/L 02/11/2024 16:49 EDT [facility] Potassium 4.6 3.5 - 5.0 mmol/L 02/11/2024 16:49 [facility] Chloride 100 96 - 110 mmol/L 02/11/2024 16:49 [facility] CO2 Total 24 22 - 32 mmol/L 02/11/2024 16:49 [facility] Glucose 185(H) 70 - 99 mg/dl 02/11/2024 16:49 [facility] BUN 19 10 - 26 mg/dL 02/11/2024 16:49 [facility] Creatinine 0.98 0.66 - 1.25 mg/dL 02/11/2024 16:49 [facility] eGFR 83 >60 mL/min/1.7 3m2 02/11/2024 16:49 [facility] Total Protein 7.2 6.3 - 8.2 g/dL 02/11/2024 16:49 [facility] Albumin 4.6 3.4 - 4.9 g/dL 02/11/2024 16:49 [facility] Alkaline Phosphatase 103 38 - 126 U/L 02/11/2024 16:49 [facility] AST 29 15 - 46 U/L 02/11/2024 16:49 [facility] ALT 43 <50 U/L 02/11/2024 16:49 [facility] Bilirubin, Total 0.7 <1.4 mg/dL 02/11/20 16:49 [facility] Calcium 9.5 8.5 - 10.5 mg/dL 02/11/2024 16:49 [facility] Albumin/Globulin Ratio 1.8 1.0 - 2.5 02/11/2024 16:49 [facility] Anion Gap 17(H) 5 - 14 mmol/L 02/11/2024 16:49 [facility] Blood VENOUS BLOOD / Unknown Venipuncture / Unknown 02/11/2024 15:02 EDT 02/11/2024 15:58 EDT Kera Tatum PA-C CHEMISTRY & B LOOD GAS ORDERABLES [facility] [address] [place] [address] * COMPLETE BLOOD COUNT (02/11/2024 15:02 EDT) WBC 6.82 4.00 - 10.40 K/cmm 02/11/2024 16:23 [facility] RBC 5.31 4.36 - 5.78 M/cmm 02/11/2024 16:23 EDT [facility] Hemoglobin 15.3 13.8 - 17.3 g/dL 02/11/2024 16:23 EDT [facility] HCT 45.2 39.5 - 50.2 % 02/11/2024 16:23 [facility] MCV 85 81 - 95 fL 02/11/2024 16:23 EDT [facility] MCH 28.8 27.6 - 33.0 pg 02/11/2024 16:23 T [facility] MCHC 33.8 32.8 - 36.4 g/dL 02/11/2024 16:23 [facility] RDW-CV 12.8 <14.2 % 02/11/2024 16:23 [facility] RDW-SD 39.7 <46.0 fl 02/11/2024 16:23 [facility] PLT 220 141 - 377 K/cmm 02/11/2024 16:23 [facility] MPV 10.7 9.5 - 12.7 fL 02/11/2024 16:23 [facility] Blood VENOUS BLOOD / Unknown Venipuncture / Unknown 02/11/2024 15:02 EDT 02/11/2024 15:57 EDT Kera Tatum PA-C HEMATOLOGY & PF4 ORDERABLES Performing Organization Address City/State/[facility] Co de Phone Number [facility] [address], [place] [phone] documented in this encounter Visit Diagnoses Diagnosis Other cirrhosis of liver (HCC-CMS)- Primary documented in this encounter Historical Medications * This list may reflect changes made after this encounter. Medication Sig Dispensed Refills Start Date End Date insulin glargine U-300 conc (TOUJEO MAX U-300 SOLOSTAR) 300 unit/mL (3 mL) subcutaneous pen Inject into the skin once daily. added in this encounter Care Teams Value Stream Leader Relationship Specialty Start Date End Date Denise Hooker APRN [address] [place] [address] PCP - General 09/13/18 documented as of this encounter
--- OUTSIDE RECORDS SUMMARY | 2024-05-06 04:51 | XMS_ITS | Continuity of Care Document ---
Author Name [facility] Organization [facility] Care Team Providers Care Exerciser Horse Name Role Phone [facility] Unavailable Unavailable Problems Combined list of problems from Department of Defense and Veterans Affairs facilities. It does not include entries that were removed or entered in error. Problem Status Onset Date Problem Type Date of Resolution Comments Source Old Myocardial Infarction Active 06/19/19 93 Condition November 29, 2002 Entered By: YCRIL CHOI RET Comment: [facility] Bilateral hearing loss Active Condition Oct 22, 2023 Entered By: SWATI PEREZ Comment: loud noise exposure [facility] Carpal Tunnel Syndrome * (ICD-9-CM 354.0) Active Condition [facility] Cervical radiculopathy Active Condition Oct 22, 2023 Entered By: SWATI PEREZ Comment: right [facility] Chronic diarrhea [facility] Coronary atherosclerosis Active Condition Oct 15, 2021 Entered By: MANJINDER ORTIZ Comment: 9 stents [facility] Diabetes mellitus Active Condition [facility] Diabetes mellitus type 2 without retinopathy (SNOMED CT [id number]) Active Condition [facility] Diverticular disease of colon Active Condition [facility] Health Maintenance Active Condition S ep 2009 Entered By: BREN GRAYSON Comment: 2007 colonoscopy, outside hosp, neg, next one in 10 yrAug 2015 Entered By: SEN OCONNELL Comment: nonST elev [place] january 2106 [facility]; [facility] re3 stented occlusion [facility] Heart murmur Active Condition Oct 22, 2023 Entered By: SWATI PEREZ Comment: aortic sclerosis per pt report [facility] High Cholesterol [facility] History of amputation of lesser toe Active Condition Oct 15, 2021 Entered By: MANJINDER ORTIZ Comment: right 5th toe [facility] History of arthroscopic procedure on shoulder Active Condition Oct 15, 2021 Entered By: MANJINDER ORTIZ Comment: bilateral shoulders [facility] History of repair of umbilical hernia Active Condition [facility] Hyperlipidemia Active Condition [facility] Hypertension Active Condition [facility] Hypertension (SNOMED CT [id number]) Active Condition [facility] Ingrowing toenail Active Condition Ap r 2023 Entered By: SWATI PEREZ Comment: multiple. related condition [facility] Insomnia Active Condition [facility] Irritable bowel syndrome with diarrhea Active Condition [facility] NAFL - non-alcoholic fatty liver Active Condition [facility] Non-alcoholic fatty liver Active Condition [facility] Obesity Active Condition [facility] Osteoarthritis of hip Active Condition [facility] Depression * (ICD-9-CM 311./300.4) Inactive Condition 10/09/2014 [facility] Diagnosis: ICD-10-CM L60.0 Ingrowing nail Active Diagnosis [facility] Diagnosis: ICD-10-CM 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 Medication Details Route Status Patient Instructions Prescription Expires Prescription Number Last Dispense Date Ordering Provider Order Date Order Qty Source AMLODIPINE BESYLATE 10MG TAB TAKE ONE TABLET BY MOUTH EVERY DAY ORAL ACTIVE WARNER ORTIZ 2021 Johan ZUNIGA DEPT OF [facility] AMLODIPINE BESYLATE 10MG TAB TAKE ONE TABLET BY MOUTH EVERY DAY ORAL ACTIVE JIN RACHEL 2012 [facility] ASPIRIN 81MG TAB,EC TAKE ONE TABLET BY MOUTH ONCE DAILY ORAL ACTIVE [facility]EREZ [facility] ASPIRIN 81MG TAB,EC TAKE ONE TABLET BY MOUTH EVERY DAY ORAL ACTIVE WARNER ORTIZ 2021 Johan ZUNIGA DEPT OF [facility] DAPAGLIFLOZ IN 10MG TAB TAKE ONE TABLET BY MOUTH ONCE DAILY ORAL ACTIVE ZAHRA PEREZ N 2023 [facility] DAPAGLIFLOZ IN 5MG TAB TAKE ONE TABLET BY MOUTH EVERY DAY ORAL ACTIVE WARNER ORTIZ 2021 Johan ZUNIGA DEPT OF [facility] EXENATIDE INJ,SOLN INJECT SUBCUTAN EOUSLY TWICE DAILY (BEFORE BREAKFAS T AND SUPPER) SUBCUT ANEOUS ACTIVE WARNER ORTIZ 2021 Johan ZUNIGA DEPT OF [facility] INSULIN GLARGINE-YF GN 100UNIT/ML 3ML PEN INJ INJECT 42 UNITS SUBCUTAN EOUSLY ONCE DAILY SUBCUT ANEOUS ACTIVE ZAHRA PEREZ N 2023 [facility] INSULIN LISPRO HUMALOG 100UNT/ML KWIKPEN INJ INJECT 30 UNITS SUBCUTAN EOUSLY DIRECTED SUBCUT ANEOUS ACTIVE ZAHRA PEREZ 2023 [facility] LISINOPRIL 5MG TAB TAKE ONE TABLET BY MOUTH EVERY DAY ORAL ACTIVE UVIGNEPATRICK E 2010 [facility] LISINOPRIL 5MG TAB TAKE ONE TABLET BY MOUTH DAILY AT BEDTIME ORAL ACTIVE WARNER ORTIZ 2021 Johan ZUNIGA DEPT OF [facility] LISPRO 75/25 INSULIN *KWIKPEN* INJ INJECT 40 UNITS SUBCUTAN EOUSLY TWICE A DAY SUBCUT ANEOUS ACTIVE WARNER ORTIZ 2021 Johan ZUNIGA DEPT OF [facility] MAGNESIUM OXIDE 400MG TAB TAKE ONE TABLET BY MOUTH AT BEDTIME ORAL ACTIVE ZAHRA PEREZ N 2023 [facility] METFORMIN HCL 1000MG TAB TAKE ONE TABLET BY MOUTH TWICE A DAY ORAL ACTIVE WARNER ORTIZ 2021 Johan ZUNIGA DEPT OF [facility] METOPROLOL (TOPROL-XL EQV) TAB,SA TAKE 150 BY MOUTH EVERY DAY ORAL ACTIVE WARNER ORTIZ 2021 Johan ZUNIGA DEPT OF [facility] METOPROLOL SUCCINATE 50MG TAB,SA TAKE THREE TABLETS BY MOUTH EVERY DAY ORAL ACTIVE JIN RACHEL AEL D 2012 [facility] MULTIVITAMI NS CAP/TAB TAKE ONE CAP/TAB BY MOUTH ONCE DAILY ORAL ACTIVE ZAHRA PEREZ N 2023 [facility] MULTIVITAMI NS W/MINERALS TAB TAKE ONE TABLET BY MOUTH EVERY DAY ORAL ACTIVE CALENDINE ,WARNER M 2021 [facility] RANOLAZINE 500MG TAB,SA TAKE ONE TABLET BY MOUTH TWICE A DAY ORAL ACTIVE CALENDINE ,WARNER M 2021 [facility] RANOLAZINE 500MG TAB,SA TAKE ONE TABLET BY MOUTH TWICE A DAY ORAL ACTIVE ZAHRA PEREZ N 2022 [facility] ROSUVASTATI N CA 40MG TAB TAKE ONE TABLET BY MOUTH EVERY DAY ORAL ACTIVE PARESH BRANDON MAURY 2014 [facility] TRAZODONE HCL 50MG TAB TAKE ONE TABLET BY MOUTH AT BEDTIME ORAL ACTIVE PATRICK OCONNELL E 2018 [facility] TRAZODONE HCL 50MG TAB TAKE ONE TABLET BY MOUTH DAILY AT BEDTIME ORAL ACTIVE CALENDINE ,WARNER M 2021 Johan ZUNIGA [facility] Allergies, Adverse Reactions, Alerts Combined list of allergies from Department of Defense and Veterans Affairs facilities. It does not include entries that were removed or entered in error. Substance Category Reaction Severity Reaction type Status Date Reported Comments Source ISOSORBIDE Propensity to adverse reactions to drug (finding) Headache active 12/30/2023 [facility] Immunizations Combined list of available immunizations from the Department of Defense and Veterans Affairs facilities. Immunization Series Date Given Administered By Site Reaction Lot Number CVX Code Drug Cook Chief Status Comments Source COVID-19 (PFIZER), MRNA, LNP-S, BIVALENT BOOSTER, PF, 30 MCG/0.3 ML DOSE 1 2021 300 complet ed [facility] INFLUENZA, UNSPECIFIED FORMULATION 2021 88 complet ed [facility] COVID-19 (PFIZER), MRNA, LNP-S, PF, 30 MCG/0.3 ML DOSE 2021 208 complet ed [facility] INFLUENZA, UNSPECIFIED FORMULATION 2020 88 complet ed Johan ZUNIGA DE[facility] OF [facility] COVID-19 (PFIZER), MRNA, LNP-S, PF, 30 MCG/0.3 ML DOSE 3 2020 208 complet ed [facility] COVID-19 (PFIZER), MRNA, LNP-S, PF, 30 MCG/0.3 ML DOSE 2 2020 208 complet ed [facility] COVID-19 (PFIZER), MRNA, LNP-S, PF, 30 MCG/0.3 ML DOSE 1 2020 208 complet ed [facility] INFLUENZA, SEASONAL, INJECTABLE 2017 141 [facility] INFLUENZA, SEASONAL, INJECTABLE 2016 141 complet ed At work [facility] INFLUENZA, UNSPECIFIED FORMULATION 2015 88 complet ed lmd [facility] ZOSTER LIVE 2015 121 complet ed Proximal Left Arm [facility] INFLUENZA, UNSPECIFIED FORMULATION 2014 88 complet ed [facility] Samba.memarianna s [facility] INFLUENZA, UNSPECIFIED FORMULATION 2013 88 complet ed [facility] INFLUENZA, UNSPECIFIED FORMULATION 2010 88 complet ed [facility] INFLUENZA, UNSPECIFIED FORMULATION 2009 88 complet ed [facility] [employer] [facility] N[facility]EL INFLUENZA-H1N 1-09, ALL FORMULATIONS 2008 128 complet ed [facility] INFLUENZA, UNSPECIFIED FORMULATION 2008 88 complet ed [facility] TDAP 2007 115 complet ed [facility] PNEUMOCOCCAL, UNSPECIFIED FORMULATION 2005 109 complet ed [facility] INFLUENZA, UNSPECIFIED FORMULATION [address] [facility] PNEUMOCOCCAL, UNSPECIFIED FORMULATION 2002 109 complet ed Site:Left Deltoid [facility] TD(ADULT) UNSPECIFIED FORMULATION 1998 139 complet ed [facility] TD(ADULT) UNSPECIFIED FORMULATION 1998 139 complet ed [facility] Results Combined list of recent chemistry, hematology [...] PLASMA Comment: , Tests performed on [employer] SN:[id number] (405). Ordering Provider: SWATI PEREZ Report Released Date/Time: Oct 15, 2023 04:17 PM Reporting Lab: [facility] [address] [facility] [address] Performing Lab: [facility] [address] [facility] [address] [facility] LIPOPROTEI N CHOLESTERO L FRACT. PANEL TRIGLYCERID E [MASS/VOLUM E] IN SERUM OR PLASMA 227 mg/dL 0 - 150 10/21 H Specimen Type: PLASMA Comment: , Tests performed on [employer] SN:[id number] (405). Ordering Provider: SWATI PEREZ Report Released Date/Time: Oct 15, 2023 04:17 PM Reporting [facility] [address] [facility] [address] Performing Lab: [facility] [address] [facility] [address] [facility] LIPOPROTEI N CHOLESTERO L FRACT. PANEL CHOLESTEROL IN HDL [MASS/VOLUM E] IN SERUM OR PLASMA 42 mg/dL 40 10/21 Specimen Type: PLASMA Comment: , Tests performed on [employer] SN:[id number] (405). Ordering Provider: SWATI PEREZ Report Released Date/Time: Oct 15, 2023 04:17 PM Reporting [facility] [address] [facility] [address] Performing Lab: [facility] [address] [facility] [address] [facility] LIPOPROTEI N CHOLESTERO L FRACT. PANEL CHOLESTEROL IN LDL [MASS/VOLUM E] IN SERUM OR PLASMA BY CALCULATION 67 mg/dL 0 - 129 10/21 Specimen Type: PLASMA Comment: , Tests performed on [employer] SN:[id number] (405). Ordering Provider: SWATI PEREZ Report Released Date/Time: Oct 15, 2023 04:17 PM Reporting Lab: [facility] [address] [facility] [address] Performing Lab: [facility] [address] [facility] [address] [facility] P4 GLU,BUN,CR EAT,LYTES, CA UREA NITROGEN [MASS/VOLUM E] IN SERUM OR PLASMA 19 mg/dL 7 - 25 10/21 Specimen Type: PLASMA Comment: , Tests performed on [employer] SN:[id number] (405). Ordering Provider: SWATI PEREZ Report Released Date/Time: Oct 15, 2023 04:17 PM Reporting Lab: [facility] [address] [facility] [address] Performing Lab: [facility] [place] [address] [facility] [address] [facility] P4 GLU,BUN,CR EAT,LYTES, [place] SODIUM [MOLES/VOLU ME] IN SERUM OR PLASMA 137 mmol/L 135 - 145 10/21 Specimen Type: PLASMA Comment: , Tests performed on [employer] SN:[id number] (405). Ordering Provider: SWATI PEREZ Report Released Date/Time: Oct 15, 2023 04:17 PM Reporting Lab: [facility] [address] [facility] [address] Performing Lab: [facility] [address] [facility] [address] [facility] P4 GLU,BUN,CR EAT,LYTES, [place] POTASSIUM [MOLES/VOLU ME] IN SERUM OR PLASMA 4.5 mmol/L 3.5 - 5.0 10/21 Specimen Type: PLASMA Comment: , Tests performed on [employer] SN:[id number] (405). Ordering Provider: SWATI PEREZ Report Released Date/Time: Oct 15, 2023 04:17 PM Reporting Lab: [facility] [address] [facility] [address] Performing Lab: [place] [facility] [facility] [address] [facility] [address] [facility] P4 GLU,BUN,CR EAT,LYTES, [place] CHLORIDE [MOLES/VOLU ME] IN SERUM OR PLASMA 103 mmol/L 100 - 110 10/21 Specimen Type: PLASMA Comment: , Tests performed on [employer] SN:[id number] (405). Ordering Provider: SWATI PEREZ Report Released Date/Time: Oct 15, 2023 04:17 PM Reporting Lab: [facility] [address] [facility] [address] Performing Lab: [facility] [address] [facility] [address] [facility] P4 GLU,BUN,CR EAT,LYTES, CA CARBON DIOXIDE, TOTAL [MOLES/VOLU ME] IN SERUM OR PLASMA 26 mmol/L 20 - 30 10/21 Specimen Type: PLASMA Comment: , Tests performed on [employer] SN:[id number] (405). Ordering Provider: SWATI PEREZ Report Released Date/Time: Oct 15, 2023 04:17 PM Reporting Lab: [facility] [address] [facility] [address] Performing Lab: [facility] [address] [facility] [address] [facility] P4 GLU,BUN,CR EAT,LYTES, CA ANION GAP IN SERUM OR PLASMA 8 4 - 16 10/21 Specimen Type: PLASMA Comment: , Tests performed on [employer] SN:[id number] (405). Ordering Provider: SWATI PEREZ Report Released Date/Time: Oct 15, 2023 04:17 PM Reporting Lab: [facility] [address] [facility] [address] Performing Lab: [facility] [address] [facility] [address] [facility] P4 GLU,BUN,CR EAT,LYTES, CA GLUCOSE [MASS/VOLUM E] IN SERUM OR PLASMA 143 mg/dL 65 - 100 10/21 H Specimen Type: PLASMA Comment: , Tests performed on [employer] SN:[id number] (405). Ordering Provider: SWATI PEREZ Report Released Date/Time: Oct 15, 2023 04:17 PM Reporting Lab: [facility] [address] [facility] [address] Performing Lab: [facility] [address] [facility] [address] [facility] P4 GLU,BUN,CR EAT,LYTES, [place] CREATININE [MASS/VOLUM E] IN SERUM OR PLASMA 0.96 mg/dL 0.50 - 1.50 10/21 Specimen Type: PLASMA Comment: , Tests performed on [employer] SN:[id number] (405). Ordering Provider: SWATI PEREZ Report Released Date/Time: Oct 15, 2023 04:17 PM Reporting Lab: [facility] [address] [facility] [address] Performing Lab: [facility] [address] [facility] [address] [facility] P4 GLU,BUN,CR EAT,LYTES, CA CALCIUM [MASS/VOLUM E] IN SERUM OR PLASMA 9.4 mg/dL 8.5 - 10.5 10/21 Specimen Type: PLASMA Comment: , Tests performed on [employer] SN:[id number] (405). Ordering Provider: SWATI PEREZ Report Released Date/Time: Oct 15, 2023 04:17 PM Reporting Lab: [facility] [address] [facility] [address] Performing Lab: [facility] [address] [facility] [address] [facility] P4 GLU,BUN,CR EAT,LYTES, CA GLOMERULAR FILTRATION RATE/1.73 SQ M.PREDICTED [VOLUME RATE/AREA] IN SERUM, PLASMA OR BLOOD BY CREATININE- BASED FORMULA (CKD-EPI 2020) 86 mL/min 10/21 Specimen Type: PLASMA Comment: , Tests performed on [employer] SN:[id number] (405). Ordering Provider: SWATI PEREZ Report Released Date/Time: Oct 15, 2023 04:17 PM Reporting Lab: [facility] [address] [facility] [address] Performing Lab: [facility] [address] [facility] [address] [facility] LIVER PROFILE PROTEIN [MASS/VOLUM E] IN SERUM OR PLASMA 7.2 g/dL 6.0 - 8.5 10/21 Specimen Type: PLASMA Comment: , Tests performed on [employer] SN:[id number] (405). Ordering Provider: SWATI PEREZ Report Released Date/Time: Oct 15, 2023 04:17 PM Reporting Lab: [facility] [address] [facility] [address] Performing Lab: [facility] [address] [facility] [address] [facility] LIVER PROFILE ALBUMIN [MASS/VOLUM E] IN SERUM OR PLASMA 3.9 g/dL 3.2 - 5.0 10/21 Specimen Type: PLASMA Comment: , Tests performed on [employer] SN:[id number] (405). Ordering Provider: SWATI PEREZ Report Released Date/Time: Oct 15, 2023 04:17 PM Reporting Lab: [facility] [address] [facility] [address] Performing Lab: [facility] [address] [facility] [address] [facility] LIVER PROFILE BILIRUBIN.T OTAL [MASS/VOLUM E] IN SERUM OR PLASMA 0.6 mg/dL 0.2 - 1.2 10/21 Specimen Type: PLASMA Comment: , Tests performed on [employer] SN:[id number] (405). Ordering Provider: SWATI PEREZ Report Released Date/Time: Oct 15, 2023 04:17 PM Reporting Lab: [facility] [address] [facility] [address] Performing Lab: [facility] [address] [facility] [address] [facility] LIVER PROFILE ALKALINE PHOSPHATASE [ENZYMATIC ACTIVITY/VO LUME] IN SERUM OR PLASMA 100 U/L 40 - 150 10/21 Specimen Type: PLASMA Comment: , Tests performed on [employer] SN:[id number] (405). Ordering Provider: SWATI PEREZ Report Released Date/Time: Oct 15, 2023 04:17 PM Reporting Lab: [facility] [address] [place] [facility] [facility] [place] [address] Performing Lab: [facility] [address] [facility] [address] [place] [facility] [facility] LIVER PROFILE ALANINE AMINOTRANSF ERASE [ENZYMATIC ACTIVITY/VO LUME] IN SERUM OR PLASMA 50 U/L 7 - 52 10/21 Specimen Type: PLASMA Comment: , Tests performed on [employer] SN:[id number] (405). Ordering Provider: SWATI PEREZ Report Released Date/Time: Oct 15, 2023 04:17 PM Reporting Lab: [facility] [address] [facility] [address] Performing Lab: [facility] [address] [facility] [address] [facility] LIVER PROFILE ASPARTATE AMINOTRANSF ERASE [ENZYMATIC ACTIVITY/VO LUME] IN SERUM OR PLASMA 32 U/L 5 - 34 10/21 Specimen Type: PLASMA Comment: , Tests performed on [employer] SN:[id number] (405). Ordering Provider: SWATI PEREZ Report Released Date/Time: Oct 15, 2023 04:17 PM Reporting Lab: [facility] [address] [facility] [address] Performing Lab: [facility] [address] [facility] [address] [facility] L[facility]FILE FIB-4 SCORE 1.19 <2.67 - 2.67 10/21 Specimen Type: PLASMA Comment: , Tests performed on [employer] SN:[id number] (405). Ordering Provider: SWATI PEREZ Report Released Date/Time: Oct 15, 2023 04:17 PM Reporting Lab: [facility] [address] [facility] [address] Performing Lab: [facility] [address] [facility] [address] [facility] GLYCOHEMOG LOBIN (A1C ONLY) HEMOGLOBIN A1C/HEMOGLO BIN.TOTAL IN BLOOD BY HPLC 6.0 4.0 - 5.6 10/21 H Specimen Type: BLOOD Comment: , Tests performed on [employer] SN:[id number] (405) Values obtained from A1C measurements can [...] Lab: [facility] [address] [facility] [address] Performing Lab: [facility] [address] [facility] [address] [facility] [facility] MICROALBUM IN/CREATIN INE RATIO PANEL CREATININE [MASS/VOLUM E] IN URINE 47.00 mg/dL 10/21 Specimen Type: URINE Comment: , Tests performed on [employer] SN:[id number] (405) Ordering Provider: SWATI PEREZ Report Released Date/Time: Oct 15, 2023 04:17 PM Reporting Lab: [facility] [address] [facility] [address] Performing Lab: [facility] [address] [facility] [address] [facility] [place] [facility] MICROALBUM IN/CREATIN INE RATIO PANEL MICROALBUMI N [MASS/VOLUM E] IN URINE 0.1 mg/dL 0.0 - 29.9 10/21 Specimen Type: URINE Comment: , Tests performed on [employer] SN:[id number] (405) Ordering Provider: SWATI PEREZ Report Released Date/Time: Oct 15, 2023 04:17 PM Reporting Lab: [facility] [address] [facility] [address] Performing Lab: [facility] [address] [facility] [address] [facility] [facility] MICROALBUM IN/CREATIN INE RATIO PANEL MICROALBUMI N/CREATININ E [MASS RATIO] IN URINE 2.1 mg/g 0.0 - 29.9 10/21 Specimen Type: URINE Comment: , Tests performed on [employer] SN:[id number] (405) Ordering Provider: SWATI PEREZ Report Released Date/Time: Oct 15, 2023 04:17 PM Reporting Lab: [facility] [address] [facility] [address] Performing Lab: [facility] [address] [facility] [address] [facility] [place] CBC PROFILE LEUKOCYTES [#/VOLUME] IN BLOOD BY AUTOMATED COUNT 8.2 10*3/u L 4.5 - 11.0 10/21 Specimen Type: BLOOD No comment entered. Ordering Provider: SWATI PEREZ Report Released Date/Time: Oct 15, 2023 04:17 PM Reporting Lab: [facility] [address] [facility] [address] Performing Lab: [facility] [address] [facility] [address] [facility] CBC PROFILE ERYTHROCYTE S [#/VOLUME] IN BLOOD BY AUTOMATED COUNT 5.10 10*6/u L 4.23 - 5.66 10/21 Specimen Type: BLOOD No comment entered. Ordering Provider: SWATI PEREZ Report Released Date/Time: Oct 15, 2023 04:17 PM Reporting Lab: [facility] [address] [facility] [address] Performing Lab: [facility] [address] [facility] [address] [facility] CBC PROFILE HEMOGLOBIN [MASS/VOLUM E] IN BLOOD 14.9 g/dL 12.8 - 17 10/21 Specimen Type: BLOOD No comment entered. Ordering Provider: SWATI PEREZ Report Released Date/Time: Oct 15, 2023 04:17 PM Reporting Lab: [facility] [facility] [address] [facility] [address] Performing Lab: [facility] [address] [facility] [address] [facility] CBC PROFILE HEMATOCRIT [VOLUME FRACTION] OF BLOOD BY AUTOMATED COUNT 43.6 39.2 - 50.4 10/21 Specimen Type: BLOOD No comment entered. Ordering Provider: SWATI PEREZ Report Released Date/Time: Oct 15, 2023 04:17 PM Reporting Lab: [facility] [address] [facility] [address] Performing Lab: [facility] [address] [facility] [address] [facility] CBC PROFILE MCV [ENTITIC VOLUME] BY AUTOMATED COUNT 85.5 fL 82 - 99 10/21 Specimen Type: BLOOD No comment entered. Ordering Provider: SWATI PEREZ Report Released Date/Time: Oct 15, 2023 04:17 PM Reporting Lab: [facility] [address] [facility] [address] Performing Lab: [facility] [address] [facility] [address] [facility] CBC PROFILE MCH [ENTITIC MASS] BY AUTOMATED COUNT 29.2 pg 26.2 - 32.6 10/21 Specimen Type: BLOOD No comment entered. Ordering Provider: SWATI PEREZ Report Released Date/Time: Oct 15, 2023 04:17 PM Reporting Lab: [facility] [address] [facility] [address] Performing Lab: [facility] [address] [facility] [address] [facility] CBC PROFILE MCHC [MASS/VOLUM E] BY AUTOMATED COUNT 34.2 g/dL 30.8 - 35.1 10/21 Specimen Type: BLOOD No comment entered. Ordering Provider: SWATI PEREZ Report Released Date/Time: Oct 15, 2023 04:17 PM Reporting Lab: [facility] [address] [facility] [address] Performing Lab: [facility] [address] [facility] [address] [facility] CBC PROFILE PLATELETS [#/VOLUME] IN BLOOD BY AUTOMATED COUNT 258 10*3/u L 140 - 360 10/21 Specimen Type: BLOOD No comment entered. Ordering Provider: SWATI PEREZ Report Released Date/Time: Oct 15, 2023 04:17 PM Reporting Lab: [facility] [address] [facility] [address] Performing Lab: [facility] [address] [facility] [address] [facility] CBC PROFILE PLATELET MEAN VOLUME [ENTITIC VOLUME] IN BLOOD BY AUTOMATED COUNT 10.6 fL 9.2 - 12.4 10/21 Specimen Type: BLOOD No comment entered. Ordering Provider: SWATI PEREZ Report Released Date/Time: Oct 15, 2023 04:17 PM Reporting Lab: [facility] [address] [facility] [address] Performing Lab: [facility] [address] [facility] [address] [facility] CBC PROFILE ERYTHROCYTE DISTRIBUTIO N WIDTH [RATIO] BY AUTOMATED COUNT 13.2 12.0 - 16.0 10/21 Specimen Type: BLOOD No comment entered. Ordering Provider: SWATI PEREZ Report Released Date/Time: Oct 15, 2023 04:17 PM Reporting Lab: [facility] [address] [facility] [address] Performing Lab: [facility] [address] [facility] [address] [facility] CBC PROFILE LYMPHOCYTES /100 LEUKOCYTES IN BLOOD BY AUTOMATED COUNT 31.3 14.0 - 42.3 10/21 Specimen Type: BLOOD No comment entered. Ordering Provider: SWATI PEREZ Report Released Date/Time: Oct 15, 2023 04:17 PM Reporting Lab: [facility] [address] [facility] [address] Performing Lab: [facility] [address] [facility] [address] [facility] CBC PROFILE MONOCYTES/1 00 LEUKOCYTES IN BLOOD BY AUTOMATED COUNT 7.4 5.1 - 13.7 10/21 Specimen Type: BLOOD No comment entered. Ordering Provider: SWATI PEREZ Report Released Date/Time: Oct 15, 2023 04:17 PM Reporting Lab: [facility] [address] [facility] [address] Performing Lab: [facility] [address] [facility] [address] [facility] CBC PROFILE GRANULOCYTE S/100 LEUKOCYTES IN BLOOD BY AUTOMATED COUNT 59.4 43.7 - 75.8 10/21 Specimen Type: BLOOD No comment entered. Ordering Provider: SWATI PEREZ Report Released Date/Time: Oct 15, 2023 04:17 PM Reporting Lab: [facility] [address] [facility] [address] Performing Lab: [facility] [address] [facility] [address] [facility] CBC PROFILE EOSINOPHILS /100 LEUKOCYTES IN BLOOD BY AUTOMATED COUNT 1.1 0.4 - 6.8 10/21 Specimen Type: BLOOD No comment entered. Ordering Provider: SWATI PEREZ Report Released Date/Time: Oct 15, 2023 04:17 PM Reporting Lab: [facility] [address] [facility] [address] Performing Lab: [facility] [address] [facility] [address] [facility] CBC PROFILE BASOPHILS/1 00 LEUKOCYTES IN BLOOD BY AUTOMATED COUNT 0.6 0.1 - 2.0 10/21 Specimen Type: BLOOD No comment entered. Ordering Provider: SWATI PEREZ Report Released Date/Time: Oct 15, 2023 04:17 PM Reporting Lab: [facility] [address] [facility] [address] Performing Lab: [facility] [address] [facility] [address] [facility] CBC PROFILE IMMATURE GRANULOCYTE S/100 LEUKOCYTES IN BLOOD BY AUTOMATED COUNT 0.2 0.0 - 0.7 10/21 Specimen Type: BLOOD No comment entered. Ordering Provider: SWATI PEREZ Report Released Date/Time: Oct 15, 2023 04:17 PM Reporting Lab: [facility] [address] [facility] [address] Performing Lab: [facility] [address] [facility] [address] [facility] CBC PROFILE NUCLEATED ERYTHROCYTE S/100 LEUKOCYTES [RATIO] IN BLOOD BY AUTOMATED COUNT 0.0 /100{W BCs} 0.0 - 0.0 10/21 Specimen Type: BLOOD No comment entered. Ordering Provider: SWATI PEREZ Report Released Date/Time: Oct 15, 2023 04:17 PM Reporting Lab: [facility] [address] [facility] [address] Performing Lab: [facility] [address] [facility] [address] [facility] CBC PROFILE IMMATURE GRANULOCYTE S [#/VOLUME] IN BLOOD 0.0 10*3/u L 0 - 0.06 10/21 Specimen Type: BLOOD No comment entered. Ordering Provider: SWATI PEREZ Report Released Date/Time: Oct 15, 2023 04:17 PM Reporting Lab: [facility] [address] [facility] [address] Performing Lab: [facility] [address] [facility] [address] [facility] CBC PROFILE BASOPHILS [#/VOLUME] IN BLOOD BY AUTOMATED COUNT 0.1 10*3/u L 0.01 - 0.13 10/21 Specimen Type: BLOOD No comment entered. Ordering Provider: SWATI PEREZ Report Released Date/Time: Oct 15, 2023 04:17 PM Reporting Lab: [facility] [address] [facility] [address] Performing Lab: [facility] [address] [facility] [address] [facility] CBC PROFILE EOSINOPHILS [#/VOLUME] IN BLOOD BY AUTOMATED COUNT 0.1 10*3/u L 0.03 - 0.44 10/21 Specimen Type: BLOOD No comment entered. Ordering Provider: SWATI PEREZ Report Released Date/Time: Oct 15, 2023 04:17 PM Reporting Lab: [facility] [address] [facility] [address] Performing Lab: [facility] [address] [facility] [address] [facility] CBC PROFILE LYMPHOCYTES [#/VOLUME] IN BLOOD BY AUTOMATED COUNT 2.6 10*3/u L 1.0 - 3.2 10/21 Specimen Type: BLOOD No comment entered. Ordering Provider: SWATI PEREZ Report Released Date/Time: Oct 15, 2023 04:17 PM Reporting Lab: [facility] [address] [facility] [address] Performing Lab: [facility] [address] [facility] [address] [facility] CBC PROFILE MONOCYTES [#/VOLUME] IN BLOOD BY AUTOMATED COUNT 0.6 10*3/u L 0.3 - 1.1 10/21 Specimen Type: BLOOD No comment entered. Ordering Provider: SWATI PEREZ Report Released Date/Time: Oct 15, 2023 04:17 PM Reporting Lab: [facility] [address] [facility] [address] Performing Lab: [facility] [address] [facility] [address] [facility] CBC PROFILE NEUTROPHILS [#/VOLUME] IN BLOOD BY AUTOMATED COUNT 4.9 10*3/u L 2.2 - 7.6 10/21 Specimen Type: BLOOD No comment entered. Ordering Provider: SWATI PEREZ Report Released Date/Time: Oct 15, 2023 04:17 PM Reporting Lab: [facility] [address] [facility] [address] Performing Lab: [facility] [address] [place] [phone] [facility] CBC PROFILE NUCLEATED ERYTHROCYTE S [#/VOLUME] IN BLOOD BY AUTOMATED COUNT 0.00 10*3/u L 0 - 0 10/21 Specimen Type: BLOOD No comment entered. Ordering Provider: SWATI PEREZ Report Released Date/Time: Oct 15, 2023 04:17 PM Reporting Lab: [facility] [address] [place] [phone] Performing Lab: [facility] [address] [place] [phone] [facility] URINALYSIS W/REFLEX TO CULTURE COLOR OF URINE Light- Yellow 10/21 Specimen Type: URINE No comment entered. Ordering Provider: SWATI PEREZ Report Released Date/Time: Oct 15, 2023 04:17 PM Reporting Lab: [facility] [address] [facility] [address] Performing Lab: [facility] [address] [facility] [address] [facility] URINALYSIS W/REFLEX TO CULTURE SPECIFIC GRAVITY OF URINE BY REFRACTOMET RY 1.027 1.003 - 1.030 10/21 Specimen Type: URINE No comment entered. Ordering Provider: SWATI PEREZ Report Released Date/Time: Oct 15, 2023 04:17 PM Reporting Lab: [facility] [address] [facility] [address] Performing Lab: [facility] [address] [place] [phone] [facility] URINALYSIS W/REFLEX TO CULTURE UROBILINOGE N [MASS/VOLUM E] IN URINE <2.0mg /dL <2.0 - 2.0 10/21 Specimen Type: URINE No comment entered. Ordering Provider: SWATI PEREZ Report Released Date/Time: Oct 15, 2023 04:17 PM Reporting Lab: [facility] [address] [facility] [address] Performing Lab: [facility] [address] [facility] [address] [facility] URINALYSIS W/REFLEX TO CULTURE BILIRUBIN.T OTAL [PRESENCE] IN URINE BY TEST STRIP NEG 10/21 Specimen Type: URINE No comment entered. Ordering Provider: SWATI PEREZ Report Released Date/Time: Oct 15, 2023 04:17 PM Reporting Lab: [facility] [address] [facility] [address] Performing Lab: [facility] [address] [facility] [address] [facility] URINALYSIS W/REFLEX TO CULTURE KETONES [PRESENCE] IN URINE NEGmg/ dL 10/21 Specimen Type: URINE No comment entered. Ordering Provider: SWATI PEREZ Report Released Date/Time: Oct 15, 2023 04:17 PM Reporting Lab: [facility] [address] [facility] [address] Performing Lab: [facility] [address] [facility] [address] [facility] URINALYSIS W/REFLEX TO CULTURE GLUCOSE [MASS/VOLUM E] IN URINE BY TEST STRIP >1000m g/dL 10/21 Specimen Type: URINE No comment entered. Ordering Provider: SWATI PEREZ Report Released Date/Time: Oct 15, 2023 04:17 PM Reporting Lab: [facility] [address] [facility] [address] Performing Lab: [facility] [address] [facility] [address] [facility] URINALYSIS W/REFLEX TO CULTURE PROTEIN [MASS/VOLUM E] IN URINE BY TEST STRIP NEGmg/ dL 10/21 Specimen Type: URINE No comment entered. Ordering Provider: SWATI PEREZ Report Released Date/Time: Oct 15, 2023 04:17 PM Reporting Lab: [facility] [address] [facility] [address] Performing Lab: [facility] [address] [facility] [address] [facility] URINALYSIS W/REFLEX TO CULTURE PH OF URINE BY TEST STRIP 6.5 5 - 8 10/21 Specimen Type: URINE No comment entered. Ordering Provider: SWATI PEREZ Report Released Date/Time: Oct 15, 2023 04:17 PM Reporting Lab: [facility] [address] [facility] [address] Performing Lab: [facility] [address] [facility] [address] [facility] URINALYSIS W/REFLEX TO CULTURE APPEARANCE OF URINE CLEAR 10/21 Specimen Type: URINE No comment entered. Ordering Provider: SWATI PEREZ Report Released Date/Time: Oct 15, 2023 04:17 PM Reporting Lab: [facility] [address] [facility] [address] Performing Lab: [facility] [address] [facility] [address] [facility] URINALYSIS W/REFLEX TO CULTURE HEMOGLOBIN [PRESENCE] IN URINE NEG 10/21 Specimen Type: URINE No comment entered. Ordering Provider: SWATI PEREZ Report Released Date/Time: Oct 15, 2023 04:17 PM Reporting Lab: [facility] [address] [facility] [address] Performing Lab: [facility] [address] [facility] [address] [facility] URINALYSIS W/REFLEX TO CULTURE NITRITE [PRESENCE] IN URINE BY TEST STRIP NEG 10/21 Specimen Type: URINE No comment entered. Ordering Provider: SWATI PEREZ Report Released Date/Time: Oct 15, 2023 04:17 PM Reporting Lab: [facility] [address] [facility] [address] Performing Lab: [facility] [address] [facility] [address] [facility] URINALYSIS W/REFLEX TO CULTURE LEUKOCYTES [PRESENCE] IN URINE NEG 10/21 Specimen Type: URINE No comment entered. Ordering Provider: SWATI PEREZ Report Released Date/Time: Oct 15, 2023 04:17 PM Reporting Lab: [facility] [address] [facility] [address] Performing Lab: [facility] [address] [facility] [address] [facility] TSH THYROTROPIN [UNITS/VOLU ME] IN SERUM OR PLASMA 1.13 u[IU]/ mL 0.35 - 5.00 10/21 Specimen Type: SERUM Comment: , Tests performed on [employer] Copytele Gottlieb SN:[id number] (405) TSH within normal limits. Reflex testing not required. Ordering Provider: SWATI PEREZ Report Released Date/Time: Oct 15, 2023 04:17 PM Reporting Lab: [facility] [address] [facility] [address] Performing Lab: [facility] [address] [facility] [address] [facility] VITAMIN B-12 COBALAMIN (VITAMIN B12) [MASS/VOLUM E] IN SERUM OR PLASMA 548 pg/mL 200 - 900 10/21 Specimen Type: SERUM Comment: , Tests performed on [employer] Copy[employer] Gottlieb SN:[id number] (405) TSH within normal limits. Reflex testing not required. Ordering Provider: SWATI PEREZ Report Released Date/Time: Oct 15, 2023 04:17 PM Reporting Lab: [facility] [address] [facility] [address] Performing Lab: [facility] [address] [facility] [address] [facility] PSA (SCALE MODEL MAKER ) PROSTATE SPECIFIC AG [MASS/VOLUM E] IN SERUM OR PLASMA 0.41 ng/mL 10/21 Specimen Type: SERUM Comment: , Tests performed on [employer] Copy[employer] Gottlieb SN:[id number] (405) TSH within normal limits. Reflex testing not required. Ordering Provider: SWATI PEREZ Report Released Date/Time: Oct 15, 2023 04:17 PM Reporting Lab: [facility] [address] [facility] [address] Performing Lab: [facility] [address] [facility] [address] [facility] Vital Signs Combined list of inpatient and outpatient Vital Signs from Department of Defense and Veterans Affairs, ranging from 12 months to all on record, depending upon the facility. Vital Sign Value Date Comments Source SYSTOLIC BLOOD PRESSURE 134 12/30/2023 11:26:47 [facility] DIASTOLIC BLOOD PRESSURE 63 12/30/2023 11:26:47 [facility] PULSE OXIMETRY 95 12/30/2023 11:26:47 [facility] WEIGHT 235.8 12/30/2023 11:26:47 [facility] BMI 34kg/m2 12/30/2023 11:26:47 [facility] PAIN 0 12/30/2023 11:26:47 [facility] HEIGHT 70 12/30/2023 11:26:47 [facility] TEMPERATURE 97.7 12/30/2023 11:26:47 [facility] PULSE 61 12/30/2023 11:26:47 [facility] SYSTOLIC BLOOD PRESSURE 132 10/22/2023 14:10:25 [facility] DIASTOLIC BLOOD PRESSURE 66 10/22/2023 14:10:25 [facility] PULSE OXIMETRY 94 10/22/2023 14:10:25 [facility] WEIGHT 231.2 10/22/2023 14:10:25 [facility] BMI 33kg/m2 10/22/2023 14:10:25 [facility] PAIN 0 10/22/2023 14:10:25 [facility] HEIGHT 70 10/22/2023 14:10:25 [facility] TEMPERATURE 97.5 10/22/2023 14:10:25 [facility] PULSE 60 10/22/2023 14:10:25 [facility] Encounters Combined list of: 1) Encounters from Department of Veterans Affairs facilities going back up to thelast 18 months. 2) Encounters from the Department of Defense facilities going back up to 280 months. Location Location Details Encounter Type Encounter Number Reason For Visit Attending Provider ADM Date DC Date Status Disposition Source [facility] Out[facility] Encounter [id number] 11/14 [place] [facility] TARGETED CASE MANAGEMENT [id number] FRANCINE SUMMERS 11/19 [facility] [place] [facility] Outpatient Encounter [id number] 12/09 [place] [facility] [place] [facility] Outpatient Encounter [id number] 02/01 [place] [facility] [place] [facility] Outpatient [facility]counter [id number] 02/25 [place] [facility] [place] [facility] Outpatient [facility]counter [id number] 03/11 [place] [facility] [place] [facility] Outpatient [facility]counter [id number] 03/12 [place] [facility] [place] [facility] Outpatient [facility]counter [id number] 03/19 [place] [facility] [place] [facility] Outpatient Encounter [id number] 07/20 [facility]P EST HI [facility] MIN [id number] Diagnos is: ICD-10- CM E11.9 Type 2 diabete s mellitu s without complic ations< br/> SWATI PEREZ 10/21 [facility] [place] [facility] Outpatient Encounter [id number] 10/26 [facility] [place] [facility] Outpatient Encounter [id number] 12/20 [place] [facility] [place] [facility] Outpatient Encounter [id number] 12/20 [facility] OFFICE O/P EST LOW 20 MIN [id number] Diagnos is: ICD-10- CM D48.5 Neoplas m of uncerta in behavio r of skin
SWATI PEREZ 12/29 [facility] R[facility] OFF/OP CNSLTJ NEW/EST MOD 40 [id number] Diagnos is: ICD-10- CM L60.0 Tiffaniei ng nail
LUCIUS OCONNOR ISTOPHER L 03/23 [facility] Outpatient Encounter [id number] 04/18 [facility] Social History Combined list of available smoking, tobacco, and other social history from Department of Defense and Veterans Affairs facilities. Social History Type Response Date Comment Source Tobacco smoking status [facility] VA-TOBACCO FORMER USER 10/22/2023 [facility] History of tobacco use VA-TOBACCO QUIT 15 YRS OR MORE 10/22/2023 [facility] History of tobacco use VA-TOBACCO FORMER USER 09/17/2022 [facility] History of tobacco use VA-TOBACCO FORMER USER 10/15/2021 [facility] History of tobacco use VA-TOBACCO FORMER USER 03/14/2020 [facility] History of tobacco use [place]-TO[place]ACCO QUIT 15 YRS OR MORE 11/10/2017 [facility] History of tobacco use QUIT TOBACCO USE > 7 YEARS AGO 10/27/2017 [facility] History of tobacco use QUIT TOBACCO USE > 7 YEARS AGO 10/14/2016 quit about 24 years ago [facility] History of tobacco use QUIT TOBACCO USE > 7 YEARS AGO 10/16/2015 quit approximately 23 years ago [facility] History of tobacco use HISTORY OF SMOKING 10/14/2004 12 yrs ago [facility] History of tobacco use QUIT TOBACCO USE > 7 YEARS AGO 01/26/2003 [facility] History of tobacco use HISTORY OF SMOKING 11/29/2002 [facility] Plan of Care List of future care activities from Department of Veterans Affairs facilities. Additional future care activities may be listed in the Assessment and Plan section. Date/Time Care Activity Care Activity Detail Facili ty 07/07/2024 AMBULATORY - REHAB MEDICINE AMBULATORY - REHAB MEDICINE [facility] Advance Directives List of completed, amended, or rescinded Advance Directives on record at Department of [facility] facilities. An actual copy of the Directive is not included. Date Advance Directive Provider Source 11/23/2017 ADVANCE DIRECTIVE JOI DEVRIES [facility]
--- OUTSIDE RECORDS SUMMARY | 2024-05-06 04:51 | XMS_ITS | Encounter Summary ---
[place] [address] Care Team Providers Care Machine Ii Trimmer Name Role Phone Denise Hooker APRN Primary Care Provider [phone] Encounter Details Date Type Department Care Team (Late st Contact Info) Description 02/26/2023 External [place] [id number] Social History Tobacco Use Types Packs/Day Years [...] filedocumented in this encounter Care Teams Machine Ii Trimmer Relationship Specialty Start Date End Date Denise Hooker APRN [address] [place] [address] PCP - General 09/05/13 documented as of this encounter
--- OUTSIDE RECORDS SUMMARY | 2024-05-06 04:51 | XMS_ITS | Encounter Summary ---
Author Organization [facility] Address [address] [place] [address] Care Team Providers Care Plant Sciences Professor Name Role Phone MorroLilia galvanhrcharu Easton JENNIFER Primary Care Provider [phone] Reason for Visit * Reason Onset Date Comments Appointment Related 01/05/2024 Encounter Details Date Type Department Care Team ([facility] Contact Info) Description 01/05/2024 Telephone [facility] Cardiology - [address] [place] [address] Davian Almonte MD [address] [place], [place] [phone] Appointment Related Social History Tobacco Use Types [...] for today. * Telephone Encounter - Tala Llaens RN - 01/05/2024 1015 EDT Ecdis N Navigation Operator returned pt's call. Pt stated Thursday he had SOB and CP most of the afternoon that was not relieved by 3 doses of Nitro. Pt states he went to the ER [facility] were negative, chest xray showed right lower lobe of lung possible pneumonia. Pt was started on antibiotic and has since felt better with no SOB or CP. Pt states his bp 120s/50-60s. Ecdis N Navigation Operator will notify provider as pt stated ER [...] to schedule apptment with Dr Davian Almonte Ecdis N Navigation Operator unable to schedule due to no available apptment within bookit; Please contact patient ; Reason for apptment : Angina; shortness of breath and chest pain documented in this encounter Plan of Treatment Upcoming Encounters Date Type Department Care Team (Late st Contact Info) Description 08/08/2024 13:00 EST Office Visit [facility] Gastroenterology - [address] [id number] Kera Tatum PA-C [address] [facility], [address] [place] [phone] 11/15/2024 18:30 EDT Office Visit [facility] Cardiology - [place] [address] Davian Almonte MD [address] [place], [place] [phone] documented as of this encounter Visit Diagnoses Not on filedocumented in this encounter Care Teams Plant Sciences Professor Relationship Specialty Start Date End Date Denise Hooker APRN [address] [place] [address] PCP - General 09/13/18 documented as of this encounter
--- OUTSIDE RECORDS SUMMARY | 2024-05-06 04:51 | XMS_ITS | Encounter Summary ---
Author Name [facility] Organization [facility] Address [address] [place] [address] Care Team Providers Care Drafter Civil (Cad) Name Role Phone WARNER ORTIZ Primary Care [...] PLAN WEI SADIE HP Jul 20, 2009 [id number] SRINIVAS BATISTA PATIENT [employer] ([id number]) PRESCRIPT ION Jul 20, 2017 [id number] SRINIVAS BATISTA PATIENT MEDICARE (WNR) MEDICARE (M) PART B Apr 19, 2020 PART B [id number] SRINIVAS BATISTA PATIENT MEDICARE (WNR) MEDICARE (M) PART A Oct 19, 2019 PART A [id number] SRINIVAS BATISTA PATIENT RESTAT PRESCRIPT ZULMA DEWEY BLUE November 17, 2009 [id number] SRINIVAS BATISTA PATIENT Selected Encounter This section includes the information on record at [place] for the Encounter. Date/Time Encounter Type Encounter Description Reason Pro vider Source Dec 21, 2023 01:03 PM Outpatient Encounter TELEPHONE TRIAGE IHE Encounter Template Text not used by [place] Plan of Treatment: Future Appointments (+ 6 months) and Future Tests (+/- 45 days) The Plan of Treatment section includes future care activities for the patient from all [place] treatmentfacilities. This section includes future appointments and future orders which are active, pending or scheduled. Future Appointments This section includes appointments that were scheduled to occur 6 months from the date of the Encounter, up to a maximum of 20 appointments. The data comes from all [place] treatment facilities. Appointment Date/Time Appointment Type Appointme nt Facility Name Dec 30, 2023 11:30 AM AMBULATORY - NONE [facility] Mar 02, 2024 08:20 AM AMBULATORY - NONE [facility] Mar 15, 2024 04:00 PM AMBULATORY - REHAB MEDICIN E [facility] Mar 23, 2024 11:30 AM AMBULATORY - SURGERY [facility] Social History: Smoking Status (Most current) and Tobacco Use (All prior to encounter date) This section includes the most current, and the historical, smoking and tobacco- related health factors from the [place] facility where the Encounter took place. Current Smoking Status This section includes the most current smoking, or tobacco-related health factor, from the [place] facility where the Encounter took place. Date/Time Current Smoking Status Comment Yamilet ity Jan 26, 2003 10:05 AM QUIT TOBACCO USE > 7 YEARS AGO [facility] Tobacco Use History This section includes a history of the smoking, or tobacco-related health factors, that were collected on or before the date of the Encounter. The data comes from the [place] facility where the Encounter took place. Date/Time Smoking Status/Tobacco Use Comment F acility November 29, 2002 01:00 PM HISTORY OF SMOKING [facility] Advance Directives: All historical and current Section Date Range: From patient's date of to the date document was created. This section includes ALL of a patient's completed or amended VA Advance and Rescinded Directives. The entries below indicate that a directive exists for the patient, but an actual copy is not included with this document. The data comes from all [place] facilities. Date Advance Directives Provider Source November 23, 2017 ADVANCE DIRECTIVE JOI DEVRIES NADEEN ER JCT [facility] Encounter Notes: All associated encounter [...] Patient Name: CLAUDIA BATISTA Patient [address] [address] [place] [address] Patient Primary Phone: [phone] Patient : 1955 Patient Age: 68 Current Location: HOME Call Back Number: Caller/Recipient Relation to Patient: Self Emergency Contact: ANA BATISTA Triage Summary Conducted triage/discussed symptoms Pain Score: 0 (No Pain) Utilized the Triage Tool: Yes Chief Complaint: Mole On The Skin System WHEN: Within 2 Weeks Nurse's Recommendation / WHEN: Within 2 Weeks System WHERE: Clinic Nurse's Recommendation / WHERE: Clinic/[facility] Patient Disposition Patient/Caregiver agrees to plan of care: Yes Nursing Plan and Disposition Referred Patient for In-Person Appt Transferred patient to Sched & Admin-Apt Other course(s) of action Generated msg to PACT/Provider Provided guidance for worsening symptoms: *Caller/Patient* advised to call facilities [place] Clinical Contact Center or seek immediate medical attention for new or worsening symptoms Nurse Summary Nurse Summary: STATES I WAS TRYING TO GET INTO SEE 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, MOLES COUPLE THAT ARE IRRITATING BIG ONE [...] Triage Mon, 21 Dec 2023 16:57:47 +0000 [facility] Demographics 68 y/o Male Results CC: Mole On The Skin Software suggested: Within 2 Weeks Software suggested follow-up location: Clinic, consider virtual care Values and Measures Duration of CC: 2 Months Positive Responses HPI: mole, enlarging VS: temperature not taken Negative Responses Denies: HPI: skin erythema, around skin lump or bump Education Verbal Education Provided for: Skin Lesion Home Care /es/ DESIREE TSE FEDERAL MEDIATOR REGISTERED NURSE Signed: 12/21/2023 13:03 Receipt Acknowledged By: 12/21/2023 13:08 /jayce/ MARTINE ANTONY LPN 12/21/2023 13:46 /jayce/ OMEGA MENCHACA Registered Nurse 12/21/2023 ADDENDUM STATUS: COMPLETED RTC is in place MSAs are alerted via teams /jayce/ MARTINE ANTONY LPN Signed: 12/21/2023 13:08 [facility]IREE T[facility]
--- OUTSIDE RECORDS SUMMARY | 2024-05-06 04:51 | XMS_ITS | Encounter Summary ---
Author Organization [facility] Address [address] [place] [address] Care Team Providers Care Gate Shear Operator Name Role Phone Denise Hooker JENNIFER Primary Care Provider [phone] Encounter Details Date Type Department Care Team ([facility] st Contact Info) Description 02/11/2024 14:30 EDT Phlebotomy Only [facility] ED Center 2 Phlebotomy [address] [place] [address] Coach Mechanic, Acc Phlebotomy Other cirrhosis of liver (HCC-CMS) [...] 08/08/2024 13:00 EST Office Visit [facility] Gastroenterology - [address] [phone] Kera Tatum PA-C [address] [place] [address], [address] [place] [phone] 11/15/2024 18:30 EDT Office Visit [facility] Cardiology - [place] [address] Davian Almonte MD [address] [place] [phone] documented as of this encounter Procedures Procedure [...] encounter Results * FERRITIN (02/11/2024 15:02 EDT) Pathologist [facility] Ferritin 122 22 - 322 ng/mL 02/11/2024 18:01 EDT [facility] Blood VENOUS BLOOD / Unknown Venipuncture / Unknown 02/11/2024 15:02 EDT 02/11/2024 15:58 EDT Kera ALCARAZ-Pradeep CHEMISTRY & B LOOD GAS ORDERABLES Performing Organization Address City/[facility]/ZIP Co de Phone Number [facility] [address] [place] [address] * TRANSFERRIN SATURATION (02/11/2024 15:02 EDT) [facility] Iron 108 49 - 181 ??g/dL 02/11/2024 16:59 EDT [facility] Iron Binding Capacity 398 240 - 450 ??g/dL 02/11/2024 16:59 EDT [facility] Transferrin Saturation 27 15 - 45 % 02/11/2024 16:59 EDT [facility] Blood VENOUS BLOOD / Unknown Venipuncture / Unknown 02/11/2024 15:02 EDT 02/11/2024 15:58 EDT Kera Tatum PA-C CHEMISTRY & B LOOD GAS ORDERABLES Performing Organization Address City/[facility]/ZIP Co de Phone Number [facility] [address] [place] [address] * PROTIME (02/11/2024 15:02 EDT) Pathologist [facility] I.N.R. 1.1 0.9 - 1.1 Ratio 02/11/2024 16:15 EDT [facility] Pro Time 12.1 9.7 - 12.8 secs 02/11/2024 16:15 [facility] Blood VENOUS BLOOD / Unknown Venipuncture / Unknown 02/11/2024 15:02 EDT 02/11/2024 15:48 EDT Narrative [facility] - 02/11/2024 16:15 EDT Moderate Intensity Coumadin INR = 2.0-3.0 Adjustments in anticoagulant therapy dose should be based on the INR and NOT on the Protime. Kera Tatum PA-C HEMATOLOGY & PF4 ORDERABLES [facility] [address] [place] [address] * (ABNORMAL) COMPREHENSIVE METABOLIC PANEL (CMP) (02/11/2024 15:02 EDT) Sodium 141 136 - 145 mmol/L 02/11/2024 16:49 [facility] Potassium 4.6 3.5 - 5.0 mmol/L 02/11/2024 16:49 [facility] Chloride 100 96 - 110 mmol/L 02/11/2024 16:49 [facility] CO2 Total 24 22 - 32 mmol/L 02/11/2024 16:49 [facility] Glucose 185(H) 70 - 99 mg/dl 02/11/2024 16:49 [facility] BUN 19 10 - 26 mg/dL 02/11/2024 16:49 [facility] Creatinine 0.98 0.66 - 1.25 mg/dL 02/11/2024 16:49 [facility] eGFR 83 >60 mL/min/1.7 3m2 02/11/2024 16:49 [facility] Total Protein 7.2 6.3 - 8.2 g/dL 02/11/2024 16:49 [facility] Albumin 4.6 3.4 - 4.9 g/dL 02/11/2024 16:49 [facility] Alkaline Phosphatase 103 38 - 126 U/L 02/11/2024 16:49 [facility] AST 29 15 - 46 U/L 02/11/2024 16:49 [facility] ALT 43 <50 U/L 02/11/2024 16:49 [facility] Bilirubin, Total 0.7 <1.4 mg/dL 02/11/20 16:49 [facility] Calcium 9.5 8.5 - 10.5 mg/dL 02/11/2024 16:49 [facility] Albumin/Globulin Ratio 1.8 1.0 - 2.5 02/11/2024 16:49 [facility] Anion Gap 17(H) 5 - 14 mmol/L 02/11/2024 16:49 [facility] Blood VENOUS BLOOD / Unknown Venipuncture / Unknown 02/11/2024 15:02 EDT 02/11/2024 15:58 EDT Kera Tatum PA-C CHEMISTRY & B LOOD GAS ORDERABLES [facility] [address] [place] [address] * COMPLETE BLOOD COUNT (02/11/2024 15:02 EDT) WBC 6.82 4.00 - 10.40 K/cmm 02/11/2024 16:23 [facility] RBC 5.31 4.36 - 5.78 M/cmm 02/11/2024 16:23 [facility] Hemoglobin 15.3 13.8 - 17.3 g/dL 02/11/2024 16:23 [facility] HCT 45.2 39.5 - 50.2 % 02/11/2024 16:23 [facility] MCV 85 81 - 95 fL 02/11/2024 16:23 [facility] MCH 28.8 27.6 - 33.0 pg 02/11/2024 16:23 [facility] MCHC 33.8 32.8 - 36.4 g/dL 02/11/2024 16:23 EDT [facility] RDW-CV 12.8 <14.2 % 02/11/2024 16:23 EDT [facility] RDW-SD 39.7 <46.0 fl 02/11/2024 16:23 EDT [facility] PLT 220 141 - 377 K/cmm 02/11/2024 16:23 EDT [facility] MPV 10.7 9.5 - 12.7 fL 02/11/2024 16:23 EDT [facility] Blood VENOUS BLOOD / Unknown Venipuncture / Unknown 02/11/2024 15:02 EDT 02/11/2024 15:57 EDT Kera Tatum PA-C HEMATOLOGY & PF4 ORDERABLES [facility] [address] [place] [address] documented in this encounter Visit Diagnoses Diagnosis Other cirrhosis of liver (HCC-CMS) documented in this encounter Care Teams Gate Shear Operator Relationship Specialty Start Date End Date Denise Hooker APRN [address] [place] [address] PCP - General 09/13/18 documented as of this encounter
--- OUTSIDE RECORDS SUMMARY | 2024-05-06 04:51 | XMS_ITS | Encounter Summary ---
Author Name [facility] [place] [facility] [place] [facility] [place] Address [address] [place] [address] Care Team Providers Care Dice Manager Name Role Phone WARNER ORTIZ Primary Care [...] PLAN WEIDM SADIE HP Jul 20, 2009 [id number] SRINIVAS BATISTA PATIENT [employer] ([id number]) PRESCRIPT ION Jul 20, 2017 [id number] SRINIVAS BATISTA PATIENT MEDICARE (WNR) MEDICARE (M) PART B Apr 19, 2020 PART B [id number] MATTE,SRINIVAS RGE PATIENT MEDICARE (WNR) MEDICARE (M) PART A Oct 19, 2019 PART A [id number] SRINIVAS BATISTA PATIENT RESTAT PRESCRIPT ION CBA BLUE November 17, 2009 [id number] SRINIVAS BATISTA PATIENT Selected Encounter This section includes the information on record at [place] for the Encounter. Date/Time Encounter Type Encounter Description Reason Provider Source Oct 22, 2023 02:00 PM OFFICE O/P EST HI 40 MIN PRIMARY CARE/MEDICINE ICD-10-CM E11.9 Type 2 diabetes mellitus without complications SWATI PEREZ Pema Encounter Template Text not used by [place] Assessments - Encounter Diagnoses This section includes the primary and secondary diagnoses documented for the Encounter. Date/Time Primary/Secondary Diagnosis Diagnosis Name Provider Source Oct 22, 2023 03:32 PM PRIMARY Type 2 diabetes mellitus without [facility] Oct 22, 2023 03:32 PM SECONDARY Essential (primary) hypertension SWATI PEREZ [facility] Oct 22, 2023 03:32 PM SECONDARY Fatty (change of) liver, not elsewhere classified SWAIT PEREZ [facility] Oct 22, 2023 03:32 PM SECONDARY Ingrowing nail SWATI PEREZ [facility] Oct 22, 2023 03:32 PM SECONDARY Noninfective gastroenteritis and colitis, unspecified SWATI PEREZ [facility] Oct 22, 2023 03:32 PM SECONDARY Unspecified sensorineural hearing loss SWATI PEREZ [facility] Plan of Treatment: Future Appointments (+ 6 months) and Future Tests (+/- 45 days) The Plan of Treatment section includes future care activities for the patient from all [place] treatmentfacilities. This section includes future appointments and future orders which are active, pending or scheduled. Future Appointments This section includes appointments that were scheduled to occur 6 months from the date of the Encounter, up to a maximum of 20 appointments. The data comes from all [place] treatment facilities. Appointment Date/Time Appointment Type Appointme nt Facility Name Dec 30, 2023 11:30 AM AMBULATORY - NONE [facility] Mar 02, 2024 08:20 AM AMBULATORY - NONE [place] [facility] Mar 15, 2024 04:00 PM AMBULATORY - REHAB MEDICIN E [facility] Mar 23, 2024 11:30 AM AMBULATORY - SURGERY [facility] Lab Results: +/- 30 days of the [...] Range Comment Oct 22, 2023 02:03 PM [facility] LIPOPROTEIN CHOLESTEROL FRACT. PANEL Specimen Type: PLASMA Comment: , Tests performed on Mccray Shoptiques SN:[id number] (405). Ordering Provider: SWATI PEREZ Report Released Date/Time: Oct 15, 2023 04:17 PM Reporting Lab: [facility] [address] [facility] [facility] [address] Performing Lab: [facility] [address] [facility] [address] CHOLESTEROL 154 mg/dL 0-200 TRIGLYCERIDE 227 mg/dL H 0-150 HDL CHOLESTEROL 42 mg/dL >40 LDL CHOLESTEROL (CALC) 67 mg/dL 0-129 Oct 22, 2023 02:03 PM [facility] P4 GLU,BUN,CREAT,LYTES,CA Specimen Type: PLASMA Comment: , Tests performed on [employer] Sh[employer] SN:[id number] (405). Ordering Provider: SWATI PEREZ Report Released Date/Time: Oct 15, 2023 04:17 PM Reporting Lab: [facility] [address] [facility] [address] Performing Lab: [facility] [address] [facility] [address] UREA NITROGEN 19 mg/dL 7-25 SODIUM 137 mmol/L 135-145 POTASSIUM 4.5 mmol/L 3.5-5.0 CHLORIDE 103 mmol/L 100-110 CARBON DIOXIDE 26 mmol/L 20-30 ANION GAP 8 4-16 GLUCOSE 143 mg/dL H 65-100 CREATININE 0.96 mg/dL 0.50-1.50 CALCIUM 9.4 mg/dL 8.5-10.5 eGFR(CKD-EPI 2020) 86 mL/min Oct 22, 2023 02:03 PM [facility] LIVER PROFILE Specimen Type: PLASMA Comment: , Tests performed on [employer] Sh[employer] SN:[id number] (405). Ordering Provider: SWATI PEREZ Report Released Date/Time: Oct 15, 2023 04:17 PM Reporting Lab: [facility] [address] [facility] [address] Performing Lab: [facility] [address] [facility] [address] PROTEIN, TOTAL 7.2 g/dL 6.0-8.5 ALBUMIN 3.9 g/dL 3.2-5.0 BILIRUBIN, TOTAL 0.6 mg/dL 0.2-1.2 ALKALINE PHOSPHATASE 100 U/L 40-150 ALT(SGPT) 50 U/L 7-52 AST(SGOT) 32 U/L 5-34 FIB-4 SCORE 1.19 <2.67 Oct 22, 2023 02:03 PM [facility] GLYCOHEMOGLOBIN (A1C ONLY) Specimen Type: BLOOD Comment: , Tests performed on Merchant View Gottlieb SN:[id number] (405) Values obtained from A1C measurements can vary. For typical A1C assays, a reported value of 7.0 could actually be between 6.72 and 7.28 if measured by a reference method. A reported value of 9.0 could actually be between 8.73 and 9.27. Ref: http://www.ngs p.org/CAPdata. asp Ordering Provider: SWATI PEREZ Report Released Date/Time: Oct 15, 2023 04:17 PM Reporting Lab: [facility] [address] [facility] [address] Performing Lab: [facility] [address] [facility] [facility] [address] HEMOGLOBIN A1C 6.0 H 4.0-5.6 Oct 22, 2023 02:03 PM [facility] MICROALBUMIN/CREATININE RATIO PANEL Specimen Type: URINE Comment: , Tests performed on [employer] Gott[employer]b SN:[id number] (405) Ordering Provider: SWATI PEREZ Report Released Date/Time: Oct 15, 2023 04:17 PM Reporting Lab: [facility] [address] [facility] [facility] [address] Performing Lab: [facility] [address] [facility] [address] CREATININE (URINE,RANDOM) 47.00 mg/dL MICROALBUMIN, QUANTITATIVE 0.1 mg/dL 0.0-29.9 MICROALBUMIN/CRE A TININE RATIO 2.1 mg/g 0.0-29.9 Oct 22, 2023 02:03 PM [facility] CBC PROFILE Specimen Type: BLOOD No comment entered. Ordering Provider: SWATI PEREZ Report Released Date/Time: Oct 15, 2023 04:17 PM Reporting Lab: [facility] [address] [facility] [facility] [address] Performing Lab: [facility] [address] [facility] [address] WBC 8.2 10*3/uL 4.5-11.0 RBC 5.10 10*6/uL [...] 10*3/uL 0-0 Oct 22, 2023 02:03 PM [facility] URINALYSIS W/REFLEX TO CULTURE Specimen Type: URINE No comment entered. Ordering Provider: SWATI PEREZ Report Released Date/Time: Oct 15, 2023 04:17 PM Reporting Lab: [facility] [address] [facility] [address] Performing Lab: [facility] [address] [facility] [facility] [address] URINE COLOR Light-Yellow NOT DEFINED SPECIFIC GRAVITY 1.027 1.003-1.030 UROBILINOGEN <2.0 mg/dL <2.0 URINE BILIRUBIN NEG NEG URINE KETONES NEG mg/dL NEG URINE GLUCOSE >1000 mg/dL NEG PROTEIN, URINE NEG mg/dL NEG URINE PH 6.5 5-8 CLARITY CLEAR NOT DEFINED URINE BLOOD NEG NEG NITRITE, URINE NEG NEG WBC SCREEN NEG NEG Oct 22, 2023 02:03 PM [facility] TSH Specimen Type: SERUM Comment: , Tests performed on Mccray joiz Gottlieb SN:[id number] (405) TSH within normal limits. Reflex testing not required. Ordering Provider: SWATI PEREZ Report Released Date/Time: Oct 15, 2023 04:17 PM Reporting Lab: [facility] [address] [facility] [facility] [address] Performing Lab: [facility] [address] [facility] [address] TSH 1.13 u[IU]/mL 0.35-5.00 Oct 22, 2023 02:03 PM [facility] VITAMIN B-12 Specimen Type: SERUM Comment: , Tests performed on Mccray joiz Gottlieb SN:[id number] (405) TSH within normal limits. Reflex testing not required. Ordering Provider: SWATI PEREZ Report Released Date/Time: Oct 15, 2023 04:17 PM Reporting Lab: [facility] [address] [facility] [facility] [address] Performing Lab: [facility] [address] [facility] [facility] [address] VITAMIN B-12 548 pg/mL 200-900 Oct 22, 2023 02:03 PM [facility] PSA (FUR BLOWER) Specimen Type: SERUM Comment: , Tests performed on Mccray joiz Gottlieb SN:[id number] (405) TSH within normal limits. Reflex testing not required. Ordering Provider: SWATI PEREZ Report Released Date/Time: Oct 15, 2023 04:17 PM Reporting Lab: [facility] [address] [facility] [address] Performing Lab: [facility] [address] [facility] [facility] [address] PSA (FUR BLOWER) 0.41 ng/mL Oct 22, 2023 02:03 PM [facility] VIT D 25-OH(WRJ) Specimen Type: SERUM Comment: , Tests performed on Mccray Gas Meter Installer Gottlieb SN:[id number] (405) TSH within normal limits. Reflex testing not required. Ordering Provider: SWATI PEREZ Report Released Date/Time: Oct 15, 2023 04:17 PM Reporting Lab: [facility] [address] [facility] [address] Performing Lab: [facility] [address] [facility] [facility] [address] VIT D 25-OH(J) 16.1 ng/mL L 20.0-50.0 Social History: Smoking Status (Most current) and Tobacco Use (All prior to encounter date) This section includes the most current, and the historical, smoking and tobacco- related health factors from the [place] facility where the Encounter took place. Current Smoking Status This section includes the most current smoking, or tobacco-related health factor, from the [place] facility where the Encounter took place. Date/Time Current Smoking Status Comment [facility] Oct 22, 2023 02:00 PM VA-TOBACCO FORMER USER [facility] Tobacco Use History This section includes a history of the smoking, or tobacco-related health factors, that were collected on or before the date of the Encounter. The data comes from the [place] facility where the Encounter took place. Date/Time Smoking Status/Tobac co Use Comment Facility Oct 22, 2023 02:00 PM VA-TOBACCO QUIT 15 YRS OR MORE [facility] Sep 17, 2022 03:00 PM VA-TOBACCO FORMER USER [facility] Sep 17, 2022 03:00 PM VA-TOBACCO QUIT 15 YRS OR MORE [facility] Mar 14, 2020 09:00 AM VA-TOBACCO FORMER USER [facility] Mar 14, 2020 09:00 AM VA-TOBACCO QUIT 15 YRS OR MORE [facility] Oct 14, 2016 03:02 PM QUIT TOBACCO USE > 7 YEARS AGO quit about 24 years ago [facility] Oct 16, 2015 08:12 AM QUIT TOBACCO USE > 7 YEARS AGO quit approximately 23 years ago [facility] Oct 14, 2004 09:08 AM HISTORY OF SMOKING 12 yrs ago [facility] Advance Directives: All historical and current Section Date Range: From patient's date of to the date document was created. This section includes ALL of a patient's completed or amended [place] Advance and Rescinded Directives. The entries below indicate that a directive exists for the patient, but an actual copy is not included with this document. The data comes from all [place] facilities. Date Advance Directives Provider Source November 23, 2017 ADVANCE DIRECTIVE JOI DEVRIES NADEEN ER [facility] Encounter Notes: All associated encounter [...] STATUS: COMPLETED Administrative Note/Primary Care Has ADDENDA Darlin - please fax copy of labs done today when available to [email or web address] Dorothy Juarez Mely has jesus alberto't this Mon with PCP. /jayce/ SWATI PEREZ PA-C Signed: 10/22/2023 15:34 Receipt Acknowledged By: 10/23/2023 10:37 /lalit ANTONY LPN 10/23/2023 ADDENDUM STATUS: COMPLETED faxed /lalit ANTONY LPN Signed: 10/23/2023 10:37 SWATI PEREZ [facility] Oct 22, 2023 02:28 PM PRIMARY CARE POORNIMA Davis EVALUATION NOTE: LOCAL [...] Date Documented: 10/22/23 14:30 /lalit ARIZMENDI [facility] Aircraft Hydraulic Equipment Mechanic Signed: 10/22/2023 14:30 ELVIS ARIZMENDI [facility] Oct 22, 2023 02:19 PM PRIMARY CARE NOTE: LOCAL TITLE: Primary Care Clinic Note STANDARD TITLE: PRIMARY CARE NOTE DATE OF NOTE: OCT 22, 2023@14:19 ENTRY DATE: OCT 22, 2023@14:19:27 AUTHOR: SWATI PEREZ EXP COSIGNER: URGENCY: STATUS: COMPLETED PROBLEM LIST Code Description K76.0 NAFL - non-alcoholic fatty liver ([facility] [id number]) K52.9 Chronic diarrhea ([facility] [id number]) K58.0 Irritable bowel syndrome with diarrhea ([facility] [id number]) E11.9 Diabetes mellitus type 2 without retinopathy ([facility] [id number]) 354.0 Carpal Tunnel Syndrome (ICD-9-CM 354.0) 780.52 Insomnia (ICD-9-CM 780.52) 414.00 Cad (ICD-9-CM 414.00) 278.00 Obesity (ICD-9-CM 278.00) I10. Hypertension ([facility] [id number]) V65.9 Health Maintenance (ICD-9-CM V65.9) 412. Old [...] IMMUNIZATIONS: Recorded Td/Tdap Vaccinations Information: Reminder Term: [place]-TETANUS/DIPHTHERIA IMMUNIZATION Immunization: TDAP Immunization: TD(ADULT) UNSPECIFIED FORMULATION 05/20/1999 08/28/1998 No INFLUENZA Immunizations on file within 1Y. Recorded Pneumococcal Vaccinations Information: Reminder Term: [place]-PNEUMOC PPSV23 IMMUNIZATION Immunization: PNEUMOCOCCAL, UNSPECIFIED FORMULATION 07/06/2003@15:00 Comments: Site:Left Deltoid The most recent entry of PPSV23 was given too close to the prior dose to be counted as a valid repeat dose. 67yo, WHITE, MALE Chief complaint and HPI: Mr. Batista is a 67 yo male here for [facility] PCP follow up. Medical hx significant for CAD, Hx [place] and angioplasty, DM II, HTN, NAFLD, dyslipidemia, chronic diarrhea, jeanine on cpap. Dual care: Has Community PCP at [facility], Dorothy Juarez. Jesus Alberto't next week. Seen routinely and wants healthcare managed by community pcp. Non [facility] Cardiology: [place], recent jesus alberto't Non VA GI: Had normal colonscopy November 2023 per pt report. At PCP visit last year, eval of chronic diarrhea showed several abnormal tests: elevated fecal fat and elevation of amylase and lipase. PCP was informed and he was given choice of community or VA PCP follow up. He did not contact VA. He states he did not have f/u imaging; however, states states diarrhea resolved off metformin. Now on magnesium and metamucil to avoid constipation. He denies abdominal pain or digestive issues. He states his HgA1c went up into the 8's so was referred to crutching contractor. Has changed his diet, which has been really hard and states HgA1c down in the 6's. Did not tolerate 2 trials of GLP-1 meds. He wants to continue to get all meds ouside of [facility] as it is less expensive. He reports occ chest pains, which his hospice liaison is aware of. Did not need nitro. He states he is seen regularly by hospice liaison and is up to date on cardiac [...] d/c 30+ years ago (when had first TX) Alcohol=none Marital status = . 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 Ingrown toenails since in . 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 No polyps. Repeat 10 years per his recollection. AAA - Neg September 2023 Depression - denies Dental [facility] q year. Due in December. ROS [...] (10/20/22 11:36) TSH: 1.33 (10/20/22 11:36) PSA (FUR BLOWER) - NONE FOUND Assessment and Plan: # DM: - Managed by community pcp - labs drawn today will be faxed to pcp. - Has CGM - med list updated - CC to [facility] for eye exam - due December - CC to [facility] for podiatry - praise given for dietary changes. Encouraged routine exercise and wt loss. # NAFLD: - Follow up with box truck driver in [place] - reports recent liver u/s # Chronic diarrhea: - resolved off metformin # Cervicagia with R radiculopathy: - he plans to discuss further community PCP - discussed continued outdoor emergency care technician ok if beneficial and does not exacerbate his symptoms (which it hasn't). - advised he can call for CC consult if needed, but currently his insurance covers it. # recurrent ingrown toenails since in : -CC consult to podiatry [facility] area - advised to apply for [place] benefits - [place] and benefits contacts provided. # hearing loss: - advsied to apply for [place] benefits - advised to sched audiology consult before leaving building # HTN: - adequate control on current regimen. - check labs today # Hyperlipidemia: - on statin - Check lipids today # CAD, Hx [place] and angioplasty: - stable angina - on BB, ASA and statin - carries nitro, reminded to replace yearly - f/u with his hospice liaison as planned # HCM: - vaccines managed [...] patient to and communicating with other health assurance services manager health care (when not separately reportable I spent more than 50% of this encounter counseling the pt on the medical health issues listed above. The treatment plans above have been agreed upon by myself and the pt through shared decision making. AUNDREA Pelayo [facility] Tobacco Use Screening: The patient is a [...] diminished) SENSORY CHECK: Includes 10 gram Monofilament (Mabscott-Leola) test of sensation. Intact (Greater than or [...] of [place] but knows it was done [place] No abdominal aortic aneurysm. /jayce/ SWATI PEREZ PA-C Signed: 10/22/2023 15:33 SWATI PEREZ [facility] Oct 22, 2023 02:12 PM PRIMARY CARE POORNIMA Davis EVALUATION NOTE: LOCAL TITLE: Preventive Health Annual Review STANDARD TITLE: PRIMARY CARE ANNUAL EVALUATION NOTE DATE OF NOTE: OCT 22, 2023@14:12 ENTRY DATE: OCT 22, 2023@14:12:39 AUTHOR: ELVIS ARIZMENDI COSIGNER: URGENCY: STATUS: COMPLETED Suicide Screen: C-SSRS Screening [place]-Suicide Severity Rating Scale (C-SSRS Screener) 1. Over [...] Not at all /jayce/ ELVIS ARIZMENDI [employer] Hydraulic Equipment Mechanic Signed: 10/22/2023 14:14 ELVIS ARIZMENDI [facility]
--- OUTSIDE RECORDS SUMMARY | 2024-05-06 04:51 | XMS_ITS | Clinical Summary ---
Author Organization [facility] Address [address] [place] [address] Care Team Providers Care Degreasing Solution Mixer Name Role Phone MorroLiliaDenisejorden Easton APRN Primary Care Provider [phone] Allergies Active Allergy Reactions Criticality Noted Date [...] 2 diabetes mellitus with vascular disease ( [facility]) 03/19/2020 NSVT (nonsustained ventricular tachycardia) ([facility]) 03/19/2020 Chest pain 12/03/2018 Depression 12/03/2018 [...] 69 08/20 Hypertensive disorder 09/07/2009 Diabetes mellitus ([facility]) 09/07/2009 Overview: Oral agent - metformin Resolved Problems Problem Noted Date Diagnosed Date Resolved Date NSTEMI (non-ST elevated myoc ardial infarction) ([facility]) 03/19/2020 03/22/2020 Encounters Date Type Department Care Team Description 03/07/2024 Telephone [facility] Gastroenterology - Main [place] [address] [place] [address] Kera Tatum PA-C Referral Request 03/04/2024 9:46 EDT - 03/04/2024 23:59 EDT Hospital Encounter [facility] Secondary Reads [place] Discharge Disposition: Home or Self Care 02/11/2024 14:30 EDT Phlebotomy Only [facility] ED Center 2 Phlebotomy [address] [place] [address] Agency Sales Representative, Acc Phlebotomy Other cirrhosis of liver (HCC-CMS) 02/11/2024 13:40 EDT Office Visit [facility] [address], [place] [phone] Kera Tatum PA-C Other cirrhosis of liver ([facility]) (Primary Dx) from Last 3 Months Surgical History Surgery Date Site/Laterality Comments UMBILICAL HERNIA REPAIR Jun, 2009 ROTATOR CUFF REPAIR right, fall 2014 CARPAL TUNNEL RELEASE bilateral TOE AMPUTATION right 5th Medical History Medical History Date Comments LA (myocardial infarction) ([facility]) 1992, 2003 CAD (coronary artery disease) PCI LAD prox MARY, LAD mid MARY, LAD distal BMS; 09-07-09 PCI MARY X 3 RCA; 2003 stents X2 Hypertension Diabetes mellitus ([facility]) oral agents Diverticulitis Hyperlipidemia Recurrent infections rt [...] Info) Description 08/08/2024 13:00 EST Office Visit [facility] Gastroenterology - [address] [id number] Kera Tatum PA-C [address] [place] [address], [facility], Level [address] [place] [phone] 11/15/2024 18:30 EDT Office Visit [facility] Cardiology - Jenelle Jenelle Teixeira [place], [place] [phone] Davian Almonte MD [address] [place] [phone] Health Maintenance Due Date Last Done Comments Eye Exam 1955 Foot Exam 1955 Microalbumin/Creatinine Ratio 1955 RSV Immunization ( o r 60+ Years) (1 - 1-dose 60+ series) 2014 Lipid Profile Screening (Cholesterol) 02/10/2017 02/11/2016, 08/18/2012, 06/16/2012, Additional history exists Hemoglobin A1C (Ha1C) 09/16/2020 03/19/2020 , 12/03/2018, 02/10/2016, Additional history exists Fall Risk Screening 05/04/2021 05/04/2020 Advance Directive Review 12/08/2023 COVID-19 Vaccine (2023-2 5 season) 2024 04/22/2021, 09/21/2020, 08/30/2020 Hepatitis C Screen Completed 12/01/2022 Procedures Procedure Name Priority Date/Time Associated Diagnosis Comments US OUTSIDE IMAGES BODY Routine 9:47 EDT FERRITIN Routine 02/11/2024 15:02 EDT Other cirrhosis [...] Recently Relevant to Health Maintenance Results * US OUTSIDE IMAGES BODY (03/04/2024 9:47 EDT) Narrative 03/04/2024 9:47 EDT This is a non-reportable exam. External Imaging IMG OTHER IMAGING OR DERABLES * TRANSFERRIN SATURATION (02/11/2024 15:02 EDT) Iron 108 49 - 181 ??g/dL 02/11/2024 16:59 EDT [facility] Iron Binding Capacity 398 240 - 450 ??g/dL 02/11/2024 16:59 EDT [facility] Transferrin Saturation 27 15 - 45 % 02/11/2024 16:59 EDT [facility] Blood VENOUS BLOOD / Unknown Venipuncture / Unknown 02/11/2024 15:02 EDT 02/11/2024 15:58 EDT Kera Tatum PA-C CHEMISTRY & B LOOD GAS ORDERABLES Performing Organization Address City/[facility]/ZIP Co de Phone Number [facility] [address] [place] [address] * PROTIME (02/11/2024 15:02 EDT) Pathologist [facility] I.N.R. 1.1 0.9 - 1.1 Ratio 02/11/2024 16:15 EDT [facility] Pro Time 12.1 9.7 - 12.8 secs 02/11/2024 16:15 EDT [facility] Blood VENOUS BLOOD / Unknown Venipuncture / Unknown 02/11/2024 15:02 EDT 02/11/2024 15:48 EDT Narrative [facility] - 02/11/2024 16:15 EDT Moderate Intensity Coumadin INR = 2.0-3.0 Adjustments in anticoagulant therapy dose should be based on the INR and NOT on the Protime. Kera Tatum PA-C HEMATOLOGY & PF4 ORDERABLES Performing Organization Address City/[facility]/ZIP Co de Phone Number [facility] [address] [place] [address] * COMPLETE BLOOD COUNT (02/11/2024 15:02 EDT) WBC 6.82 4.00 - 10.40 K/cmm 02/11/2024 16:23 EDT [facility] RBC 5.31 4.36 - 5.78 M/cmm 02/11/2024 16:23 EDT [facility] Hemoglobin 15.3 13.8 - 17.3 g/dL 02/11/2024 16:23 EDT [facility] HCT 45.2 39.5 - 50.2 % 02/11/2024 16:23 EDT [facility] MCV 85 81 - 95 fL 02/11/2024 16:23 EDT [facility] MCH 28.8 27.6 - 33.0 pg 02/11/2024 16:23 EDT [facility] MCHC 33.8 32.8 - 36.4 g/dL 02/11/2024 16:23 EDT [facility] RDW-CV 12.8 <14.2 % 02/11/2024 16:23 EDT [facility] RDW-SD 39.7 <46.0 fl 02/11/2024 16:23 EDT [facility] PLT 220 141 - 377 K/cmm 02/11/2024 16:23 [facility] MPV 10.7 9.5 - 12.7 fL 02/11/2024 16:23 T [facility] Blood VENOUS BLOOD / Unknown Venipuncture / Unknown 02/11/2024 15:02 EDT 02/11/2024 15:57 EDT Kera Tatum PA-C HEMATOLOGY & PF4 ORDERABLES [facility] [address] [place] [address] * FERRITIN (02/11/2024 15:02 EDT) Ferritin 122 22 - 322 ng/mL 02/11/2024 18:01 EDT [facility] Blood VENOUS BLOOD / Unknown Venipuncture / Unknown 02/11/2024 15:02 EDT 02/11/2024 15:58 EDT Kera Tatum PA-C CHEMISTRY & B LOOD GAS ORDERABLES [facility] [address] [place] [address] * (ABNORMAL) COMPREHENSIVE METABOLIC PANEL (CMP) (02/11/2024 15:02 EDT) Sodium 141 136 - 145 mmol/L 02/11/2024 16:49 [facility] Potassium 4.6 3.5 - 5.0 mmol/L 02/11/2024 16:49 [facility] Chloride 100 96 - 110 mmol/L 02/11/2024 16:49 [facility] CO2 Total 24 22 - 32 mmol/L 02/11/2024 16:49 [facility] Glucose 185(H) 70 - 99 mg/dl 02/11/2024 16:49 [facility] BUN 19 10 - 26 mg/dL 02/11/2024 16:49 [facility] Creatinine 0.98 0.66 - 1.25 mg/dL 02/11/2024 16:49 [facility] eGFR 83 >60 mL/min/1.7 3m2 02/11/2024 16:49 [facility] Total Protein 7.2 6.3 - 8.2 g/dL 02/11/2024 16:49 [facility] Albumin 4.6 3.4 - 4.9 g/dL 02/11/2024 16:49 [facility] Alkaline Phosphatase 103 38 - 126 U/L 02/11/2024 16:49 [facility] AST 29 15 - 46 U/L 02/11/2024 16:49 [facility] ALT 43 <50 U/L 02/11/2024 16:49 [facility] Bilirubin, Total 0.7 <1.4 mg/dL 02/11/20 16:49 [facility] Calcium 9.5 8.5 - 10.5 mg/dL 02/11/2024 16:49 EDT [facility] Albumin/Globulin Ratio 1.8 1.0 - 2.5 02/11/2024 16:49 EDT [facility] Anion Gap 17(H) 5 - 14 mmol/L 02/11/2024 16:49 EDT [facility] Blood VENOUS BLOOD / Unknown Venipuncture / Unknown 02/11/2024 15:02 EDT 02/11/2024 15:58 EDT Kera Tatum PA-C CHEMISTRY & B LOOD GAS ORDERABLES Performing Organization Address City/[facility]/ZIP Co de Phone Number [facility] [address] [place] [address] * HEPATITIS C AB W REFLEX TO HCV RNA BY PCR (12/01/2022 14:59 EDT) Hep C Antibody Negative Negative 12/02/2022 10:09 EDT [facility] Blood VENOUS BLOOD / Unknown Venipuncture / Unknown 12/01/2022 14:59 EDT 12/01/2022 15:31 EDT Kera Tatum PA-C CHEMISTRY & B LOOD GAS ORDERABLES Performing Organization Address [facility] Co de Phone Number [facility] [address] [place] [address] * (ABNORMAL) HEMOGLOBIN A1C (03/19/2020 1:51 EDT) Hemoglobin A1c 7.4(H) <5.7 % 03/19/2020 8:30 EDT [facility] Comment: Glycemic Status References: [...] Avg Glucose 166 mg/dL 0 8:30 EDT [facility] Comment:The eAG represents t he A1c result expressed as average glucose in mg/dL. Blood VENOUS BLOOD / Unknown Venipuncture / Unknown 03/19/2020 1:51 EDT 03/19/2020 1:55 EDT Joesph Wesley MD CHEMISTRY & BLOOD GA S ORDERABLES [facility] [address] [place] [address] * LIPID PROFILE (INCLUDES CHOLESTEROL, TRIGLYCERIDES, HDL, LDL) (02/11/2016 5:33 EDT) Cholesterol 137 mg/dl 02/11/2016 6:18 EDT [facility] Comment: Desirable:<200 Borderline High:200-239 High:>tw=319 Triglycerides 187 mg/dl 02/11/2016 6:18 [facility] Comment: Normal:<150 Borderline High:150-199 High:200-499 Very High:>mm=544 HDL 40 mg/dl 02/11/2016 6:18 [facility] Comment: Low:<40 Normal:40-60 Desirable: >60 LDL, Calculated 60 mg/dl 6 6:18 [facility] Comment: Optimal:<100 Near Optimal:100-129 Borderline High:130-159 High:160-189 Very High:>bm=224 Chol/HDL Ratio 3.4 02/11/2016 6:18 [facility] Fasting? Unknown 02/11/2016 5:45 EDT [facility] Non HDL Cholesterol 97 mg/dl 02/11/2016 6:18 [facility] Comment: Desirable:<130 Borderline:130-159 High: 160-189 Very High: >hp=842 Blood specimen (specimen) BLOOD SPECIMEN / Unknown 02/11/2016 5:33 EDT 02/11/2016 5:45 EDT Varun Stockton MD CHEMISTRY & BLO OD GAS ORDERABLES [facility] [address] [place] [address] from Last 3 Months or Most Recently Relevant to Health Maintenance Raul Trujillo Personal/Family Self 1955 [address] [facility] [address] [place] [id number] Raul Trujillo Personal/Family Self 1955 [address] [facility] [address] [place] [address] Raul Trujillo Personal/Family Self 1955 [address] [facility] [address] [place] [address] Raul Trujillo Personal/Family Self 1955 [address] [facility] [address] [place] [address] [place] [address] Raul Trujillo Personal/Family Self 1955 [address] [place] [address] Advance Directives For more information, please contact: [phone] Documents on File Type Date Recorded Patient Health Counselor Expl anation Advance Directive 12/07/2018 15:17 [facility] [...] Comments 09/07/2009 12:27 09/08/2009 15:06 Care Teams Degreasing Solution Mixer Relationship Specialty Start Date End Date Denise Hooker APRN [address] [place] [address] PCP - General 09/13/18
--- OUTSIDE RECORDS SUMMARY | 2024-05-06 04:51 | XMS_ITS | Encounter Summary ---
[place] [address] Care Team Providers Care Vice President Network Name Role Phone Denise Hooker APRN Primary Care Provider [phone] Reason for Visit * Reason Comments Skin Check Encounter Details Date Type Department Care Team (Late st Contact Info) Description 09/13/2013 9:45 AM EST Office Visit Dermatology at [address] [place] [address] Edgar Osuna MD [address] [facility] [place] [address] Seborrheic keratosis, inflamed (Primary Dx) Social History [...] was seen by REZA Krishnamurthy, at the [facility] and given a course of [...] lateral thigh, a flesh-toned, hyperkeratotic, 1-cm, waxy, tiddo-[id number]-rnypeaytt papule. Assessment and Plan: Seborrheic keratosis. a. [...] keratosis documented in this encounter Care Teams Vice President Network Relationship Specialty Start Date End Date Denise Hooker APRN [address] [place] [address] PCP - General 09/05/13 documented as of this encounter
--- OUTSIDE RECORDS SUMMARY | 2024-05-06 04:51 | XMS_ITS | Encounter Summary ---
[place] [address] Care Team Providers Care Aquatic Scientist Name Role Phone Davian Calabrese MD Primary Care Provider [phone] Reason for Visit * Reason Onset Date Comments Advice Only 08/18/2012 Encounter Details Date Type Department Care Team ([facility] Contact Info) Description 08/18/2012 Telephone Cardiology at [address] [phone] Opal Cardoza, industrial truck driver Only Social History Tobacco Use Types Packs/Day Years Used Date Smoking Tobacco: Never Assessed Sex and Gender Information Value Date Recorded Sex Assigned at Not on file Gender Identity Not on file Sexual Orientation Not on file documented as of this encounter Miscellaneous Notes * Telephone Encounter - Opal Cardoza, RN - [...] on filedocumented in this encounter Care Teams Aquatic Scientist Relationship Specialty Start Date End Date Davian Calabrese MD [facility] [address] [place] [address] PCP - General 06/11/10 09/04/13 documented as of this encounter
--- OUTSIDE RECORDS SUMMARY | 2024-05-06 04:51 | XMS_ITS | Encounter Summary ---
Author Name [facility] Organization [facility] [place] [facility] [place] Address [address] [place] [address] Care Team Providers Care School Child Care Attendant Name Role Phone WARNER ORTIZ Primary Care [...] PLAN WEIDM SADIE HP Jul 20, 2009 [id number] SRINIVAS BATISTA PATIENT [employer] ([id number]) PRESCRIPT ION Jul 20, 2017 [id number] SRINIVAS BATISTA PATIENT MEDICARE (WNR) MEDICARE (M) PART B Apr 19, 2020 PART B [id number] MATTE,SRINIVAS RGE PATIENT MEDICARE (WNR) MEDICARE (M) PART A Oct 19, 2019 PART A [id number] [phone] SRINIVAS BATISTA PATIENT RESTAT PRESCRIPT ION MACO BLUE November 17, 2009 [id number] SRINIVAS BATISTA PATIENT Selected Encounter This section includes the information on record at [facility] for the Encounter. Date/Time Encounter Type Encounter Description Reason Provider Source Dec 30, 2023 11:30 AM OFFICE O/P EST LOW 20 MIN PRIMARY CARE/MEDICINE ICD-10-CM D48.5 Neoplasm of uncertain behavior of skin SWATI PEREZ Pema Encounter Template Text not used by [facility] Assessments - Encounter Diagnoses This section includes the primary and secondary diagnoses documented for the Encounter. Date/Time Primary/Secondary Diagnosis Diagnosis Name Provider Source Dec 30, 2023 12:23 PM PRIMARY Neoplasm of uncertain behavior of skin SWATI PEREZ [facility] Plan of Treatment: Future Appointments (+ 6 months) and Future Tests (+/- 45 days) The Plan of Treatment section includes future care activities for the patient from all [facility] treatmentfacilities. This section includes future appointments and future orders which are active, pending or scheduled. Future Appointments This section includes appointments that were scheduled to occur 6 months from the date of the Encounter, up to a maximum of 20 appointments. The data comes from all [facility] treatment facilities. Appointment Date/Time Appointment Type Appointme nt Facility Name Mar 02, 2024 08:20 AM AMBULATORY - NONE [facility] Mar 15, 2024 04:00 PM AMBULATORY - REHAB MEDICIN E [facility] Mar 23, 2024 11:30 AM AMBULATORY - SURGERY [facility] Social History: Smoking Status (Most current) and Tobacco Use (All prior to encounter date) This section includes the most current, and the historical, smoking and tobacco- related health factors from the [facility] facility where the Encounter took place. Current Smoking Status This section includes the most current smoking, or tobacco-related health factor, from the [facility] facility where the Encounter took place. Date/Time Current Smoking Status Elan mon Oct 22, 2023 02:00 PM VA-TOBACCO FORMER USER [facility] Tobacco Use History This section includes a history of the smoking, or tobacco-related health factors, that were collected on or before the date of the Encounter. The data comes from the [facility] facility where the Encounter took place. Date/Time Smoking Status/Tobac co Use Comment Facility Oct 22, 2023 02:00 PM VA-TOBACCO QUIT 15 YRS OR MORE [facility] Sep 17, 2022 03:00 PM VA-TOBACCO FORMER USER [facility] CBO C Sep 17, 2022 03:00 PM VA-TOBACCO QUIT 15 YRS OR MORE [facility] Mar 14, 2020 09:00 AM [facility] Mar 14, 2020 09:00 AM VA-TOBACCO QUIT 15 YRS OR MORE [facility] Oct 14, 2016 03:02 PM QUIT TOBACCO USE > 7 YEARS AGO quit about 24 years ago [facility] Oct 16, 2015 08:12 AM QUIT TOBACCO USE > 7 YEARS AGO quit approximately 23 years ago [facility] Oct 14, 2004 09:08 AM HISTORY OF SMOKING 12 yrs ago [facility] Advance Directives: All historical and current Section Date Range: From patient's date of to the date document was created. This section includes ALL of a patient's completed or amended [facility] Advance and Rescinded Directives. The entries below indicate that a directive exists for the patient, but an actual copy is not included with this document. The data comes from all [facility] facilities. Date Advance Directives Provider Source November 23, 2017 ADVANCE DIRECTIVE JOI DEVRIES [facility] Encounter Notes: All associated encounter notes [...] Code Description H90.5 Bilateral hearing loss (SCT 75627396) L60.0 Ingrowing toenail ([facility] 526498039) R01.1 Heart murmur ([facility] 29693603) M54.12 Cervical radiculopathy ([facility] 38880789) K76.0 NAFL - non-alcoholic fatty liver ([facility] 874416649) K52.9 Chronic diarrhea ([facility] 270408874) K58.0 Irritable bowel syndrome with diarrhea ([facility] 292882371) E11.9 Diabetes mellitus type 2 without retinopathy ([facility] 0562144666277) 354.0 Carpal Tunnel Syndrome (ICD-9-CM 354.0) 780.52 Insomnia (ICD-9-CM 780.52) 414.00 Cad (ICD-9-CM 414.00) 278.00 Obesity (ICD-9-CM 278.00) I10. Hypertension ([facility] 16972321) V65.9 Health Maintenance (ICD-9-CM V65.9) 412. Old [...] IMMUNIZATIONS: Recorded Td/Tdap Vaccinations Information: Reminder Term: [facility]-TETANUS/DIPHTHERIA IMMUNIZATION Immunization: TDAP Immunization: TD(ADULT) UNSPECIFIED FORMULATION 05/20/1999 08/28/1998 No INFLUENZA Immunizations on file within 1Y. Recorded Pneumococcal Vaccinations Information: Reminder Term: UT-PNEUM PPSV23 IMMUNIZATION Immunization: PNEUMOCOCCAL, UNSPECIFIED FORMULATION 07/06/2003@15:00 Comments: Site:Left Deltoid The most recent entry of PPSV23 was given too close to the prior dose to be counted as a valid repeat dose. Refusals Reminder Term: UT-PNEUM PCV IMMUNIZATION (ALL CONJUGATE) 12/30/2023@11:30 Reason: PATIENT DECISION, expires 01/29/2024. Patient has refused all vaccines in the group. 68yo, WHITE, MALE Chief complaint and HPI: skin lesions Medical hx significant for CAD, Hx [place] and angioplasty, DM II, HTN, NAFLD, dyslipidemia, chronic diarrhea, jeanine on cpap. Dual care: Has Community PCP at [facility], Dorothy Juarez. Jesus Alberto't next week. Seen [...] made derm jesus alberto't in Nov at [facility] but he wondered if he should be [...] d/c 30+ years ago (when had first [place]) Alcohol=none Marital status = . 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 Ingrown toenails since in . 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 No polyps. Repeat 10 years per his recollection. AAA - Neg September 2023 Depression - denies Dental -[facility] q year. Due in December. ROS - [...] (10/22/23 14:03) TSH: 1.13 (10/22/23 14:03) PSA (SALES SERVICE COORDINATOR) 10/22/23 14:03 0.41 Assessment and Plan: # Neoplasm skin uncertain behavior; changing skin lesions: - R shoulder appears to be c/w traumatized SK; L lower back lesion has features of SK, but the variation of color including dark/almost black area does warrant eval by dermatology. Melanoma unlikely but cannot r/o by visual inspection by t/w. - He has jesus alberto't [facility] derm, has jesus alberto't 06/01 9:30 AM. Will use own insurance that has no copay. CC consult from [facility]. He will call to be put on cancellation list. - encouraged sun safety and routine skin exams I spent more than 50% of this encounter counseling the pt on the medical health issues listed above. The treatment plans above have been agreed upon by myself and the pt through shared decision making. AUNDREA Pelayo [facility] Medication Reconciliation: Perform Medication Reconciliation JLV Link Data on this list may not be complete. Please check JLV. Allergies/ADRs (Tool #5) FACILITY ALLERGY/ADR -------- Johan ZUNIGA [facility] NO KNOWN ALLERGIES [facility] ISOSORBIDE Med Recon NoGlossary (Tool #1) INCLUDED IN THIS LIST: Alphabetical list of active outpatient prescriptions dispensed from this [facility] (local) and dispensed from another [facility] or DoD facility (remote) as well as inpatient orders (local pending and active), local clinic medications, locally documented non-VA medications, and local prescriptions that have or been discontinued in the past 90 days. Non-VA Meds Last Documented On: Oct 22, 2023 NOTE The display of VA prescriptions dispensed from another [facility] or DoD facility (remote) is limited to active outpatient prescription entries matched to National Drug File at the originating site and may not include some items such as investigational drugs, compounds, etc. NOT INCLUDED IN THIS LIST: Medications self-entered by the patient into personal health records (i.e. [employer]) are NOT included in this list. Non-VA medications documented outside this [facility], remote inpatient orders (regardless of status) and [...] PEREZ PA-C Signed: 12/30/2023 12:24 SWATI PEREZ [facility] Dec 30, 2023 11:34 AM [...] Documented: 12/30/23 11:35 /jayce/ ELVIS ARIZMENDI Health Vacation Sales Advisor Signed: 12/30/2023 11:36 ELVIS ARIZMENDI [facility]
--- OUTSIDE RECORDS SUMMARY | 2024-05-06 04:51 | XMS_ITS | Referral Summary ---
Author Organization [facility] Address [address] [place] [address] Care Team Providers Care Tapeman Name Role Phone MorroLiliaDenise Jemma RODRIGUEZ Primary Care Provider [phone] Encounters Date Type Department Care Team Description 03/07/2024 Telephone [facility] [address] [place], [place] [id number] Kera Tatum PA-C Referral Request 03/04/2024 9:46 EDT - 03/04/2024 23:59 EDT Hospital Encounter [facility] Secondary Reads [place] Discharge Disposition: Home or Self Care 02/11/2024 14:30 EDT Phlebotomy Only [facility] ED Center 2 Phlebotomy [address] [place] [address] Senior Accountant Cpa, Acc Phlebotomy Other cirrhosis of liver (HCC-CMS) 02/11/2024 13:40 EDT Office Visit [facility] [address] [place], [place] [phone] Kera Tatum PA-C Other cirrhosis of liver ([facility]) (Primary Dx) from Last 3 Months Allergies Active Allergy [...] 2 diabetes mellitus with vascular disease ( [facility]) 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/2020 NSVT (nonsustained ventricular tachycardia) ([facility]) 03/19/2020 Chest pain 12/03/2018 Depression 12/03/2018 [...] 69 08/20 Hypertensive disorder 09/07/2009 Diabetes mellitus ([facility]) 09/07/2009 Overview: Oral agent - metformin Resolved Problems Problem Noted Date Diagnosed Date Resolved Date NSTEMI (non-ST elevated myoc ardial infarction) ([facility]) 03/19/2020 03/22/2020 Social History Tobacco Use [...] Description 08/08/2024 13:00 EST Office Visit [facility] Gastroenterology - [address] [id number] Kera Tatum PA-C [address] [facility], [facility], [address] [place] [phone] 11/15/2024 18:30 EDT Office Visit [facility] Cardiology - [place] [address] Davian Almonte MD [address] [place], [place] [address] Procedures Procedure Name Priority Date/Time Associated Diagnosis Comments US OUTSIDE IMAGES BODY Routine 4 9:47 EDT FERRITIN Routine 02/11/2024 15:02 EDT Other cirrhosis of liver (HCC-CMS) TRANSFERRIN SATURATION Routine 4 15:02 EDT Other cirrhosis of liver (HCC-CMS) [...] 49 - 181 ??g/dL 02/11/2024 16:59 EDT [facility] [place] Capacity 398 240 - 450 ??g/dL 02/11/2024 16:59 EDT [facility] Transferrin Saturation 27 15 - 45 % 02/11/2024 16:59 EDT [facility] Blood VENOUS BLOOD / Unknown Venipuncture / Unknown 02/11/2024 15:02 EDT 02/11/2024 15:58 EDT Kera Tatum PA-C CHEMISTRY & B LOOD GAS ORDERABLES Performing Organization Address [facility] Co de Phone Number [facility] [address] [place], [place] [address] * PROTIME (02/11/2024 15:02 EDT) Pathologist [facility] I.N.R. 1.1 0.9 - 1.1 Ratio 02/11/2024 16:15 EDT [facility] Pro Time 12.1 9.7 - 12.8 secs 02/11/2024 16:15 EDT [facility] Blood VENOUS BLOOD / Unknown Venipuncture / Unknown 02/11/2024 15:02 EDT 02/11/2024 15:48 EDT Narrative [facility] - 02/11/2024 16:15 EDT Moderate Intensity Coumadin INR = 2.0-3.0 Adjustments in anticoagulant therapy dose should be based on the INR and NOT on the Protime. Kera Tatum PA-C HEMATOLOGY & PF4 ORDERABLES Performing Organization Address [facility] Co de Phone Number [facility] [address] [place], [place] [address] * COMPLETE BLOOD COUNT (02/11/2024 15:02 EDT) [facility] WBC 6.82 4.00 - 10.40 K/cmm 02/11/2024 16:23 EDT [facility] RBC 5.31 4.36 - 5.78 M/cmm 02/11/2024 16:23 [facility] Hemoglobin 15.3 13.8 - 17.3 g/dL 02/11/2024 16:23 T [facility] HCT 45.2 39.5 - 50.2 % 02/11/2024 16:23 T [facility] MCV 85 81 - 95 fL 02/11/2024 16:23 T [facility] MCH 28.8 27.6 - 33.0 pg 02/11/2024 16:23 T [facility] MCHC 33.8 32.8 - 36.4 g/dL 02/11/2024 16:23 EDT [facility] RDW-CV 12.8 <14.2 % 02/11/2024 16:23 EDT [facility] RDW-SD 39.7 <46.0 fl 02/11/2024 16:23 EDT [facility] PLT 220 141 - 377 K/cmm 02/11/2024 16:23 EDT [facility] MPV 10.7 9.5 - 12.7 fL 02/11/2024 16:23 EDT [facility] Blood VENOUS BLOOD / Unknown Venipuncture / Unknown 02/11/2024 15:02 EDT 02/11/2024 15:57 EDT Kera Tatum PA-C HEMATOLOGY & PF4 ORDERABLES Performing Organization Address [facility]/ZIP Co de Phone Number [facility] [address] [place] [address] * FERRITIN (02/11/2024 15:02 EDT) Ferritin 122 22 - 322 ng/mL 02/11/2024 18:01 EDT [facility] Blood VENOUS BLOOD / Unknown Venipuncture / Unknown 02/11/2024 15:02 EDT 02/11/2024 15:58 EDT Kera Tatum PA-C CHEMISTRY & B LOOD GAS ORDERABLES [facility] [address], [place] [id number] * (ABNORMAL) COMPREHENSIVE METABOLIC PANEL (CMP) (02/11/2024 15:02 EDT) Sodium 141 136 - 145 mmol/L 02/11/2024 16:49 EDT [facility] Potassium 4.6 3.5 - 5.0 mmol/L 02/11/2024 16:49 [facility] Chloride 100 96 - 110 mmol/L 02/11/2024 16:49 [facility] CO2 Total 24 22 - 32 mmol/L 02/11/2024 16:49 [facility] Glucose 185(H) 70 - 99 mg/dl 02/11/2024 16:49 [facility] BUN 19 10 - 26 mg/dL 02/11/2024 16:49 [facility] Creatinine 0.98 0.66 - 1.25 mg/dL 02/11/2024 16:49 [facility] eGFR 83 >60 mL/min/1.7 3m2 02/11/2024 16:49 [facility] Total Protein 7.2 6.3 - 8.2 g/dL 02/11/2024 16:49 [facility] Albumin 4.6 3.4 - 4.9 g/dL 02/11/2024 16:49 [facility] Alkaline Phosphatase 103 38 - 126 U/L 02/11/2024 16:49 [facility] AST 29 15 - 46 U/L 02/11/2024 16:49 [facility] ALT 43 <50 U/L 02/11/2024 16:49 [facility] Bilirubin, Total 0.7 <1.4 mg/dL 02/11/20 16:49 [facility] Calcium 9.5 8.5 - 10.5 mg/dL 02/11/2024 16:49 [facility] Albumin/Globulin Ratio 1.8 1.0 - 2.5 02/11/2024 16:49 [facility] Anion Gap 17(H) 5 - 14 mmol/L 02/11/2024 16:49 [facility] Blood VENOUS BLOOD / Unknown Venipuncture / Unknown 02/11/2024 15:02 EDT 02/11/2024 15:58 EDT Kera Tatum PA-C CHEMISTRY & B LOOD GAS ORDERABLES Performing Organization Address [facility] Co de Phone Number [facility] [address] [place] [address] * HEPATITIS C AB W REFLEX TO HCV RNA BY PCR (12/01/2022 14:59 EDT) Hep C Antibody Negative Negative 12/02/2022 10:09 EDT [facility] Blood VENOUS BLOOD / Unknown Venipuncture / Unknown 12/01/2022 14:59 EDT 12/01/2022 15:31 EDT Kera Tatum PA-C CHEMISTRY & B LOOD GAS ORDERABLES Performing Organization Address [facility] Co de Phone Number [facility] [address] [place] [address] * (ABNORMAL) HEMOGLOBIN A1C (03/19/2020 1:51 EDT) Pathologist [facility] Hemoglobin A1c 7.4(H) <5.7 % 03/19/2020 8:30 EDT [facility] Comment: Glycemic Status References: [...] Avg Glucose 166 mg/dL 0 8:30 EDT [facility] Comment:The eAG represents t he A1c result expressed as average glucose in mg/dL. Blood VENOUS BLOOD / Unknown Venipuncture / Unknown 03/19/2020 1:51 EDT 03/19/2020 1:55 EDT Joesph Wesley MD CHEMISTRY & BLOOD GA S ORDERABLES Performing Organization Address City/[facility]/ZIP Co de Phone Number [facility] [address] [place] [address] * LIPID PROFILE (INCLUDES CHOLESTEROL, TRIGLYCERIDES, HDL, LDL) (02/11/2016 5:33 EDT) Cholesterol 137 mg/dl 02/11/2016 6:18 EDT [facility] Comment: Desirable:<200 Borderline High:200-239 High:>yj=304 Triglycerides 187 mg/dl 02/11/2016 6:18 T [facility] Comment: Normal:<150 Borderline High:150-199 High:200-499 Very High:>rf=392 HDL 40 mg/dl 02/11/2016 6:18 EDT [facility] Comment: Low:<40 Normal:40-60 Desirable: >60 LDL, Calculated 60 mg/dl 6 6:18 T [facility] Comment: Optimal:<100 Near Optimal:100-129 Borderline High:130-159 High:160-189 Very High:>ql=248 Chol/HDL Ratio 3.4 02/11/2016 6:18 [facility] Fasting? Unknown 02/11/2016 5:45 EDT [facility] Non HDL Cholesterol 97 mg/dl 02/11/2016 6:18 T [facility] Comment: Desirable:<130 Borderline:130-159 High: 160-189 Very High: >ng=157 Blood specimen (specimen) BLOOD SPECIMEN / Unknown 02/11/2016 5:33 EDT 02/11/2016 5:45 EDT Varun Stockton MD CHEMISTRY & BLO OD GAS ORDERABLES Performing Organization Address [facility]/ZIP Co de Phone Number [facility] [address] [place] [address] from Last 3 Months or Most Recently Relevant to Health Maintenance Raul Trujillo Personal/Family Self 1955 [address] [facility] [address] [place] [id number] Raul rTujillo Personal/Family Self 1955 [address] [facility] [address] [place] [id number] Raul Trujillo Personal/Family Self 1955 [address] [facility] [address] [place] [address] Raul Trujillo Personal/Family Self 1955 [address] [address] Advance Directives For more information, please contact: [phone] Documents on File Type Date Recorded Patient 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
--- OUTSIDE RECORDS SUMMARY | 2024-05-06 04:51 | XMS_ITS | Encounter Summary ---
Author Name [facility] Organization [facility] Address [address] [place] [address] Care Team Providers Care Parcel Carrier Name Role Phone WARNER ORTIZ Primary Care [...] PLAN WEIDM SADIE HDHP Jul 20, 2009 [id number] LESTERSRINIVAS CANDACEPema PATIENT [employer] ([id number]) PRESCRIPT ION Jul 20, 2017 [id number] SRINIVAS [place] KISHAN PATIENT MEDICARE (WNR) MEDICARE (M) PART B Apr 19, 2020 PART B [id number] LESTERSRINIVAS HOLLEY PATIENT MEDICARE (WNR) MEDICARE (M) PART A Oct 19, 2019 PART A [id number] SRINIVAS [place] PATIENT RESTAT PRESCRIPT ION CBA BLUE November 17, 2009 [id number] SRINIVAS [place] PATIENT Selected Encounter This section includes the information on record at [place] for the Encounter. Date/Time Encounter Type Encounter Description Reason Pro vider Source Apr 18, 2024 08:59 AM Outpatient Encounter ADMIN PAT ACTIVTIES (MASNONCT) IHE Encounter Template Text not used by [place] Plan of Treatment: Future Appointments (+ 6 [...] [place] treatment facilities. Appointment Date/Time Appointment Type Appointme nt Facility Name Jul 07, 2024 09:00 AM AMBULATORY - REHAB [facility] Social History: Smoking Status (Most current) and Tobacco Use (All prior to encounter date) This section includes the most current, and the historical, smoking and tobacco- related health factors from the [place] facility where the Encounter took place. Current Smoking Status This section includes the most current smoking, or tobacco-related health factor, from the [place] facility where the Encounter took place. Date/Time Current Smoking Status Comment Yamilet ity Jan 26, 2003 10:05 AM QUIT TOBACCO USE > 7 YEARS AGO [facility] Tobacco Use History This section includes a history of the smoking, or tobacco-related health factors, that were collected on or before the date of the Encounter. The data comes from the [place] facility where the Encounter took place. Date/Time Smoking Status/Tobacco Use Comment F acility November 29, 2002 01:00 PM HISTORY OF SMOKING [facility] Advance Directives: All historical [...] Source November 23, 2017 ADVANCE DIRECTIVE KAYCEJOI GUERRERO [facility] Encounter Notes: All associated encounter notes This section contains the clinical notes associated to the Encounter. Date/Time Encounter Note(s) Provider Source Apr 18, 2024 08:59 AM ADMINISTRATIVE NOT E: LOCAL TITLE: Has Admin Note STANDARD TITLE: ADMINISTRATIVE NOTE DATE OF NOTE: APR 18, 2024@08:59 ENTRY DATE: APR 18, 2024@08:59:47 AUTHOR: DEWEY NORMAN EXP COSIGNER: URGENCY: STATUS: COMPLETED Reason for call Clinic Name:Lit pod RTC Discontinued Pt no longer wishes to be seen, cxl appt 07/06 /jayce/ DEWEY NORMAN AMSA Signed: 04/18/2024 09:[address] [facility]
--- OUTSIDE RECORDS SUMMARY | 2024-05-06 04:51 | XMS_ITS | Encounter Summary ---
Author Name [facility] [place] [facility] [place] Address [address] [place] [address] Care Team Providers Care Office Technologist Name Role Phone WARNER ORTIZ Primary Care [...] PLAN WEIDM SADIE HP Jul 20, 2009 [id number] LESTERSRINIVAS CANDACEPema PATIENT EXPRESS SCRIPTS ([id number]) PRESCRIPT ION Jul 20, 2017 RXBWEID [id number] LESTERSRINIVAS HOLLEY PATIENT MEDICARE (WNR) MEDICARE (M) PART B Apr 19, 2020 PART B [id number] SRINIVAS BATISTA PATIENT MEDICARE (WNR) MEDICARE (M) PART A Oct 19, 2019 PART A [id number] SRINIVAS BATISTA PATIENT RESTAT PRESCRIPT ION CBA BLUE November 17, 2009 [id number] SRINIVAS BATISTA PATIENT Selected Encounter This section includes the information on record at CT for the Encounter. Date/Time Encounter Type Encounter Description Reason Pro vider Source Oct 27, 2023 06:03 PM Outpatient Encounter PRIMARY CARE/MEDICINE IHE Encounter Template Text not used by CT Plan of Treatment: Future Appointments (+ 6 months) and Future Tests (+/- 45 days) The Plan of Treatment section includes future care activities for the patient from all CT treatmentfacilities. This section includes future appointments and future orders which are active, pending or scheduled. Future Appointments This section includes appointments that were scheduled to occur 6 months from the date of the Encounter, up to a maximum of 20 appointments. The data comes from all CT treatment facilities. Appointment Date/Time Appointment Type Appointme nt Facility Name Dec 30, 2023 11:30 AM AMBULATORY - NONE [facility] Mar 02, 2024 08:20 AM AMBULATORY - NONE [facility] Mar 15, 2024 04:00 PM AMBULATORY - [facility]AB [facility] Mar 23, 2024 11:30 AM AMBULATORY - SURGERY [facility] Lab Results: +/- 30 days of the encounter This section includes the Chemistry and Hematology Lab Results on record with CT for the patient. Radiology Reports and Pathology Reports are provided separately, in subsequent sections. Lab Results This section contains the Chemistry/Hematology Results that were resulted 30 days before or 30 daysafter the date of the Encounter. Date/Time Source Result Type Result - Unit Interpretation Reference Range Comment Oct 22, 2023 02:03 PM [facility] LIPOPROTEIN CHOLESTEROL FRACT. PANEL Specimen Type: PLASMA Comment: , Tests performed on Oration SN:[id number] (405). Ordering Provider: SWATI PEREZ Report Released Date/Time: Oct 15, 2023 04:17 PM Reporting Lab: [facility] [address] [facility] [address] Performing Lab: [facility] [address] [facility] [address] CHOLESTEROL 154 mg/dL 0-200 TRIGLYCERIDE 227 mg/dL H 0-150 HDL CHOLESTEROL 42 mg/dL >40 LDL CHOLESTEROL (CALC) 67 mg/dL 0-129 Oct 22, 2023 02:03 PM [facility] P4 GLU,BUN,CREAT,LYTES,CA Specimen Type: PLASMA Comment: , Tests performed on Oration SN:[id number] (405). Ordering Provider: SWATI PEREZ Report Released Date/Time: Oct 15, 2023 04:17 PM Reporting Lab: [facility] [address] [facility] [address] Performing Lab: [facility] [address] [facility] [address] UREA NITROGEN 19 mg/dL 7-25 SODIUM 137 mmol/L 135-145 POTASSIUM 4.5 mmol/L 3.5-5.0 CHLORIDE 103 mmol/L 100-110 CARBON DIOXIDE 26 mmol/L 20-30 ANION GAP 8 4-16 GLUCOSE 143 mg/dL H 65-100 CREATININE 0.96 mg/dL 0.50-1.50 CALCIUM 9.4 mg/dL 8.5-10.5 eGFR(CKD-EPI 2020) 86 mL/min Oct 22, 2023 02:03 PM [facility] LIVER PROFILE Specimen Type: PLASMA Comment: , Tests performed on Oration SN:[id number] (405). Ordering Provider: SWATI PEREZ Report Released Date/Time: Oct 15, 2023 04:17 PM Reporting Lab: [facility] [address] [facility] [address] Performing Lab: [facility] [address] [facility] [address] PROTEIN, TOTAL 7.2 g/dL 6.0-8.5 ALBUMIN 3.9 g/dL 3.2-5.0 BILIRUBIN, TOTAL 0.6 mg/dL 0.2-1.2 ALKALINE PHOSPHATASE 100 U/L 40-150 ALT(SGPT) 50 U/L 7-52 AST(SGOT) 32 U/L 5-34 FIB-4 SCORE 1.19 <2.67 Oct 22, 2023 02:03 PM [facility] GLYCOHEMOGLOBIN (A1C ONLY) Specimen Type: BLOOD Comment: , Tests performed on [employer] SN:[id number] (405) Values obtained from A1C measurements can vary. For typical A1C assays, a reported value of 7.0 could actually be between 6.72 and 7.28 if measured by a reference method. A reported value of 9.0 could actually be between 8.73 and 9.27. Ref: http://www.ngs p.org/CAPdata. asp Ordering Provider: SWATI PEREZ Report Released Date/Time: Oct 15, 2023 04:17 PM Reporting Lab: [facility] [address] [facility] [address] Performing Lab: [facility] [address] [facility] [address] HEMOGLOBIN A1C 6.0 H 4.0-5.6 Oct 22, 2023 02:03 PM [facility] MICROALBUMIN/CREATININE RATIO PANEL Specimen Type: URINE Comment: , Tests performed on [employer] SN:[id number] (405) Ordering Provider: SWATI PEREZ Report Released Date/Time: Oct 15, 2023 04:17 PM Reporting Lab: [facility] [address] [facility] [address] Performing Lab: [facility] [address] [facility] [address] CREATININE (URINE,RANDOM) 47.00 mg/dL MICROALBUMIN, QUANTITATIVE 0.1 mg/dL 0.0-29.9 MICROALBUMIN/CRE A TININE RATIO 2.1 mg/g 0.0-29.9 Oct 22, 2023 02:03 PM [facility] CBC PROFILE Specimen Type: BLOOD No comment entered. Ordering Provider: SWATI PEREZ Report Released Date/Time: Oct 15, 2023 04:17 PM Reporting Lab: [facility] [address] [facility] [address] Performing Lab: [facility] [address] [facility] [address] WBC 8.2 10*3/uL 4.5-11.0 RBC 5.10 10*6/uL [...] 10*3/uL 0-0 Oct 22, 2023 02:03 PM [facility] URINALYSIS W/REFLEX TO CULTURE Specimen Type: URINE No comment entered. Ordering Provider: SWATI PEREZ Report Released Date/Time: Oct 15, 2023 04:17 PM Reporting Lab: [facility] [address] [facility] [address] Performing Lab: [facility] [address] [facility] [address] URINE COLOR Light-Yellow NOT DEFINED SPECIFIC GRAVITY 1.027 1.003-1.030 UROBILINOGEN <2.0 mg/dL <2.0 URINE BILIRUBIN NEG NEG URINE KETONES NEG mg/dL NEG URINE GLUCOSE >1000 mg/dL NEG PROTEIN, URINE NEG mg/dL NEG URINE PH 6.5 5-8 CLARITY CLEAR NOT DEFINED URINE BLOOD NEG NEG NITRITE, URINE NEG NEG WBC SCREEN NEG NEG Oct 22, 2023 02:03 PM [facility] TSH Specimen Type: SERUM Comment: , Tests performed on [employer] SN:[id number] (405) TSH within normal limits. Reflex testing not required. Ordering Provider: SWATI PEREZ Report Released Date/Time: Oct 15, 2023 04:17 PM Reporting Lab: [facility] [address] [facility] [address] Performing Lab: [facility] [address] [facility] [address] TSH 1.13 u[IU]/mL 0.35-5.00 Oct 22, 2023 02:03 PM [facility] VITAMIN B-12 Specimen Type: SERUM Comment: , Tests performed on [employer] SN:[id number] (405) TSH within normal limits. Reflex testing not required. Ordering Provider: SWATI PEREZ Report Released Date/Time: Oct 15, 2023 04:17 PM Reporting Lab: [facility] [address] [facility] [address] Performing Lab: [facility] [address] [facility] [address] VITAMIN B-12 548 pg/mL 200-900 Oct 22, 2023 02:03 PM [facility] PSA (SCIENTIFIC PHOTOGRAPHER) Specimen Type: SERUM Comment: , Tests performed on [employer] SN:[id number] (405) TSH within normal limits. Reflex testing not required. Ordering Provider: SWATI PEREZ Report Released Date/Time: Oct 15, 2023 04:17 PM Reporting Lab: [facility] [address] [facility] [address] Performing Lab: [facility] [address] [facility] [address] PSA (SCIENTIFIC PHOTOGRAPHER) 0.41 ng/mL Oct 22, 2023 02:03 PM [facility] VIT D 25-OH([facility]) Specimen Type: SERUM Comment: , Tests performed on [employer] SN:[id number] (405) TSH within normal limits. Reflex testing not required. Ordering Provider: SWATI PEREZ Report Released Date/Time: Oct 15, 2023 04:17 PM Reporting Lab: [facility] [address] [facility] [address] Performing Lab: [facility] [address] [facility] [address] VIT D 25-OH(J) 16.1 ng/mL L 20.0-50.0 Social History: Smoking Status (Most current) and Tobacco Use (All prior to encounter date) This section includes the most current, and the historical, smoking and tobacco- related health factors from the CT facility where the Encounter took place. Current Smoking Status This section includes the most current smoking, or tobacco-related health factor, from the CT facility where the Encounter took place. Date/Time Current Smoking Status Comment Yamilet ity Jan 26, 2003 10:05 AM QUIT TOBACCO USE > 7 YEARS AGO [facility] Tobacco Use History This section includes a history of the smoking, or tobacco-related health factors, that were collected on or before the date of the Encounter. The data comes from the CT facility where the Encounter took place. Date/Time Smoking Status/Tobacco Use Comment F acility November 29, 2002 01:00 PM HISTORY OF SMOKING [facility] Advance Directives: All historical and current Section Date Range: From patient's date of to the date document was created. This section includes ALL of a patient's completed or amended CT Advance and Rescinded Directives. The entries below indicate that a directive exists for the patient, but an actual copy is not included with this document. The data comes from all CT facilities. Date Advance Directives Provider Source November 23, 2017 ADVANCE DIRECTIVE JOI DEVRIES [facility] Encounter Notes: All associated encounter notes This section contains the clinical notes associated to the Encounter. Date/Time Encounter Note(s) Provider Source Oct 27, 2023 06:03 PM LABORATORY NOTE: LOCAL TITLE: [facility] PATIENT LAB RESULTS LETTER STANDARD TITLE: LABORATORY NOTE DATE OF NOTE: OCT 27, 2023@18:03 ENTRY DATE: OCT 27, 2023@18:04:03 AUTHOR: SWATI PEREZ EXP COSIGNER: URGENCY: STATUS: COMPLETED OCT 27, 2023 MR[facility] CLAUDIA BATISTA [address] [facility] [address], [place] [address] Dear Jefferson Lester, I'm writing to let you know the [...] 29.9 Prostate cancer screening test: normal PSA (SCIENTIFIC PHOTOGRAPHER) 0.41 ng/mL <0.10 - 4.0 Please don't hesitate to call the office if you have questions or concerns. Sincerely, AUNDREA Pelayo ZANDRA [phone] /jayce/ SWATI PEREZ PA-C Signed: 10/27/2023 18:08 Receipt Acknowledged By: 10/28/2023 07:26 /jayce/ ELVIS ARIZMENDI [facility] Department Clerk SWATI PEREZ ZANDRA
--- OUTSIDE RECORDS SUMMARY | 2024-05-06 04:51 | XMS_ITS | Clinical Summary ---
Author Organization [facility] [place] [address] Care Team Providers Care Night Warehouse Manager Name Role Phone Denise Hooker APRN Primary Care Provider [phone] Allergies Active Allergy Reactions Criticality Noted Date [...] 1954 Sigmoidoscopy 1954 Hepatitis C Screening 1972 Lipid Screening 1972 Tetanus/Diphtheria/Pertussis Vaccines (1 - Tdap) 11/14 Zoster vaccine (1 of 2) 2004 Advance Directive 2009 Pneumoccocal Vaccine: 65+ (1 of 1 - PCV) 11/15/2019 Covid-19 Vaccine (1 - 2022-24 season) 2024 Influenza (Flu) vaccine (1 o f 1 - Influenza standard series) 03/20/2024 Care Teams Night Warehouse Manager Relationship Specialty Start Date End Date Denise Hooker APRN [address] [place] [address] PCP - General 09/05/13
--- OUTSIDE RECORDS SUMMARY | 2024-05-06 04:51 | XMS_ITS | Encounter Summary ---
Author Organization [facility] Address [address] [place] [address] Care Team Providers Care Textile Knitter Name Role Phone MorroDenise galvan JENNIFER Primary Care Provider [phone] Reason for Visit * Reason Onset Date Comments Referral Request 03/07/2024 Encounter Details Date Type Department Care Team ([facility] Contact Info) Description 03/07/2024 Telephone [facility] Gastroenterology - [address] [phone] Kera Tatum PA-C [address] [place] [address], [facility] [address] [place] [address] Referral Request Social History Tobacco Use Types Packs/Day Years [...] Miscellaneous Notes * Telephone Encounter - Vashti Tovar RN - 03/11/2024 0955 EDT Left a detailed message for the patient asking him to contact [facility] Gastroenterology. * Telephone Encounter - Vania Ballesteros - 03/07/2024 0923 EDT Patient calling says referral hasn't been received by [facility]. Please call back to discuss. documented in this encounter Plan of Treatment Upcoming Encounters Date Type Department Care Team (Late st Contact Info) Description 08/08/2024 13:00 EST Office Visit [facility] Gastroenterology - [address] [id number] Kera Tatum PA-C [address] [facility], Level [address] [place] [address] 11/15/2024 18:30 EDT Office Visit [facility] Cardiology - [place] [address] Davian Almonte MD [address] [place], [place] [phone] documented as of this encounter Visit Diagnoses Not on filedocumented in this encounter Care Teams Textile Knitter Relationship Specialty Start Date End Date Denise Hooker APRN [address] [place] [address] PCP - General 09/13/18 documented as of this encounter
--- OUTSIDE RECORDS SUMMARY | 2024-05-06 04:51 | XMS_ITS | Encounter Summary ---
Author Organization [facility] Address [address] [place] [address] Care Team Providers Care Electronics Engineering Manager Name Role Phone Lilia Hookerhrcharu Easton JENNIFER Primary Care Provider [phone] Reason for Visit * Reason Onset Date Comments Follow-up 01/05/2024 Encounter Details Date Type Department Care Team ([facility] Contact Info) Description 01/05/2024 Telephone [facility] Cardiology - [address] [place] [address] Davian Almonte MD [address] [place], [place] [phone] Follow-up Social History Tobacco Use Types Packs/Day [...] Encounter - Davian Almonte MD - 01/05/2024 3559 EDT Telephone Note Called Mr. Trujillo to [...] up in 1 yr. Davian Almonte MD Senior Policy Associate documented in this encounter Plan of Treatment Upcoming Encounters Date Type Department Care Team (Late st Contact Info) Description 08/08/2024 13:00 EST Office Visit [facility] Gastroenterology - [address] [address] Kera Tatum PA-C [address] [facility], [address] [place] [phone] 11/15/2024 18:30 EDT Office Visit [facility] Cardiology - [place] [address] Davian Almonte MD [address] [place], [place] [address] documented as of this encounter Visit Diagnoses Not on filedocumented in this encounter Care Teams Electronics Engineering Manager Relationship Specialty Start Date End Date Morro, Denise H, DYE REEL OPERATOR HELPER [address] [place] [address] PCP - General 09/13/18 documented as of this encounter
--- OUTSIDE RECORDS SUMMARY | 2024-05-06 04:51 | XMS_ITS | Encounter Summary ---
Author Organization [facility] Address [address] [place] [address] Care Team Providers Care Credit Assistant Name Role Phone MorroDenise galvan JENNIFER Primary Care Provider [phone] Reason for Visit * Reason Onset Date Comments Coordination Of Care 12/15/2023 Encounter Details Date Type Department Care Team ([facility] Contact Info) Description 12/15/2023 Telephone [facility] Gastroenterology - [facility] [address] [place], [place] [phone] Kera Tatum PA-C [address] [place] [address], [facility] [address] [place] [address] Coordination Of Care Social History [...] Info) Description 08/08/2024 13:00 EST Office Visit [facility] Gastroenterology - [address] [phone] Kera Tatum PA-C [address] [facility], [facility], [address] [place] [phone] 11/15/2024 18:30 EDT Office Visit [facility] Cardiology - [place] [place] [address] Davian Almonte MD [address] [place], [place] [phone] documented as of this encounter Visit Diagnoses Not on filedocumented in this encounter Care Teams Credit Assistant Relationship Specialty Start Date End Date Denise Hooker APRN [address] [place] [address] PCP - General 09/13/18 documented as of this encounter
--- OUTSIDE RECORDS SUMMARY | 2024-05-06 04:51 | XMS_ITS | Encounter Summary ---
Author Name [facility] [place] [facility] [place] Address [address] [place] [address] Care Team Providers Care Barrel Cleaner Name Role Phone WARNER ORTIZ Primary Care [...] PLAN WEIDM SADIE HP Jul 20, 2009 [id number] SRINIVAS BATISTA PATIENT EXPRESS SCRIPTS ([id number]) PRESCRIPT ION Jul 20, 2017 RXB[employer]ID [id number] SRINIVAS BATISTAPema PATIENT MEDICARE (WNR) MEDICARE (M) PART B Apr 19, 2020 PART B [id number] LESTERSRINIVAS PATIENT MEDICARE (WNR) MEDICARE (M) PART A Oct 19, 2019 PART A [id number] SRINIVAS BATISTA PATIENT RESTAT PRESCRIPT ZULMA DEWEY BLUE November 17, 2009 [id number] SRINIVAS BATISTA PATIENT Selected Encounter This section [...] AM AMBULATORY - NONE [facility] Oct 22, 2023 02:00 PM AMBULATORY - NONE [facility] Dec 30, 2023 11:30 AM AMBULATORY - NONE [facility] Social History: Smoking Status (Most [...] QUIT TOBACCO USE > 7 YEARS AGO [facility] Tobacco Use History This section includes a history of the smoking, or tobacco-related health factors, that were collected on or before the date of the Encounter. The data comes from the [place] facility where the Encounter took place. Date/Time Smoking Status/Tobacco Use Comment Elan ramirez November 29, 2002 01:00 PM HISTORY OF SMOKING [facility] Advance Directives: All historical and current [...] November 23, 2017 ADVANCE DIRECTIVE JOI DEVRIES [facility]
--- OUTSIDE RECORDS SUMMARY | 2024-05-06 04:51 | XMS_ITS | Encounter Summary ---
[place] [address] Care Team Providers Care Rig Welder Name Role Phone Denise Hooker APRN Primary Care Provider [phone] Encounter Details Date Type Department Care Team (Late st Contact Info) Description 02/26/2023 Telephone Cardiology at [address] [phone] Jaden Denton MD [facility] [place] [address] Social History Tobacco Use Types Packs/Day Years Used Date Smoking Tobacco: Unknown Sex and Gender Information Value Date Recorded Sex Assigned at Not on file Gender Identity Not on file Sexual Orientation Not on file documented as of this encounter Plan of Treatment Not on file documented as of this encounter Visit Diagnoses Not on filedocumented in this encounter Care Teams Rig Welder Relationship Specialty Start Date End Date Denise Hooker APRN [address] [place] [address] PCP - General 09/05/13 documented as of this encounter
--- OUTSIDE RECORDS SUMMARY | 2024-05-06 04:51 | XMS_ITS | Encounter Summary ---
Author Name [facility] [place] Organization [facility] [place] [facility] [place] Address [address] [place] [address] Care Team Providers Care Die Mounter Name Role Phone WARNER ORTIZ Primary Care [...] PLAN WEIDM SADIE HDHP Jul 20, 2009 [id number] DASRINIVAS RODRÍGUEZ CANDACEPmea PATIENT [employer] SCRIPTS ([id number]) PRESCRIPT ION Jul 20, 2017 [id number] LESTERSRINIVAS PATIENT MEDICARE (WNR) MEDICARE (M) PART B Apr 19, 2020 PART B [id number] LESTERSRINIAVS PATIENT MEDICARE (WNR) MEDICARE (M) PART A Oct 19, 2019 PART A [id number] SRINIVAS BATISTA PATIENT RESTAT PRESCRIPT ION CBA BLUE November 17, 2009 [id number] SRINIVAS BATISTA PATIENT Selected Encounter This section includes the information on record at [place] for the Encounter. Date/Time Encounter Type Encounter Description Reason Provider Source Mar 23, 2024 11:30 AM OFF/OP CNSLTJ NEW/EST MOD 40 PODIATRY ICD-10-CM L60.0 Ingrowing nail GERARDO OCONNOR IHE Encounter Template Text not used by [place] Assessments - Encounter Diagnoses This section includes the primary and secondary diagnoses documented for the Encounter. Date/Time Primary/Secondary Diagnosis Diagnosis Name Provider Source Mar 24, 2024 07:00 AM PRIMARY Ingrowing nail KRISTIAN OCONNORVIKTORIA L [facility] CB Mar 24, 2024 07:00 AM SECONDARY Nail dystrophy ELVINKRISTIANVIKTORIA HER Davis [facility] Plan of Treatment: Future Appointments (+ [...] [place] treatment facilities. Appointment Date/Time Appointment Type Appointme nt Facility Name Jul 07, 2024 09:00 AM AMBULATORY - REHAB MEDICIN E [facility] Social History: Smoking Status (Most current) and Tobacco Use (All prior to encounter date) This section includes the most current, and the historical, smoking and tobacco- related health factors from the [place] facility where the Encounter took place. Current Smoking Status This section includes the most current smoking, or tobacco-related health factor, from the [place] facility where the Encounter took place. Date/Time Current Smoking Status Elan mon Oct 22, 2023 02:00 PM VA-TOBACCO FORMER USER [facility] Tobacco Use History This section includes a history of the smoking, or tobacco-related health factors, that were collected on or before the date of the Encounter. The data comes from the [place] facility where the Encounter took place. Date/Time Smoking Status/Tobac co Use Comment Facility Oct 22, 2023 02:00 PM VA-TOBACCO QUIT 15 YRS OR MORE [facility] Sep 17, 2022 03:00 PM VA-TOBACCO FORMER USER [facility] C Sep 17, 2022 03:00 PM VA-TOBACCO QUIT 15 YRS OR MORE [facility] Mar 14, 2020 09:00 AM VA-TOBACCO FORMER USER [facility] Mar 14, 2020 09:00 AM VA-TOBACCO QUIT 15 YRS OR MORE [facility] Oct 14, 2016 03:02 PM QUIT TOBACCO USE > 7 YEARS AGO quit about 24 years ago [facility] Oct 16, 2015 08:12 AM QUIT TOBACCO USE > 7 YEARS AGO quit approximately 23 years ago [facility] Oct 14, 2004 09:08 AM HISTORY OF SMOKING 12 yrs ago [facility] Advance Directives: All historical and current Section Date Range: From patient's date of to the date document was created. This section includes ALL of a patient's completed or amended [place] Advance and Rescinded Directives. The entries below indicate that a directive exists for the patient, but an actual copy is not included with this document. The data comes from all [place] facilities. Date Advance Directives Provider Source November 23, 2017 ADVANCE DIRECTIVE JOI DEVRIES [facility] Encounter Notes: All associated encounter notes This section contains the clinical notes associated to the Encounter. Date/Time Encounter Note(s) Provider Source Mar 23, 2024 10:25 AM PODIATRY CONSULT: LOCAL TITLE: CONSULT: Podiatry STANDARD TITLE: PODIATRY CONSULT DATE OF NOTE: MAR 23, 2024@10:25 ENTRY DATE: MAR 23, 2024@10:25:53 AUTHOR: JOSE LUIS OCONNOR EXP COSIGNER: SHILO LAL URGENCY: STATUS: COMPLETED CONSULT: Podiatry Has ADDENDA Chief Complaint - Foot evaluation History of Present Illness: Diabetic with recurrent ingrown toenails Mr. Claudia Batista is a 68 year-old [place] who presents today for foot evaluation. 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 He states that at one time he had a wart removed on the nail which has not returned. Currently his L. medial toe has a thin sliver of recurrent regrowth along its medial border which he would like addressed if possible, denies current pain. 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 No current issues. Past Medical History: Problem List: -Bilateral hearing loss -Ingrowing toenail -Heart murmur -Cervical radiculopathy -NAFL - non-alcoholic fatty liver -Chronic diarrhea -Irritable bowel syndrome with diarrhea -Diabetes mellitus type 2 without retinopathy -Carpal Tunnel Syndrome -Insomnia -Cad -Obesity -Hypertension -Health Maintenance -Old Myocardial Infarction -High Cholesterol Medications: Active Outpatient Medications (excluding Supplies): Active Non-VA Medications Status 1) Non-VA AMLODIPINE BESYLATE 10MG TAB 2) Non-VA ASPIRIN 81MG EC TAB 81MG BY MOUTH ONCE DAILY ACTIVE 3) Non-VA DAPAGLIFLOZIN 10MG TAB 4) Non-VA INSULIN GLARGINE-YFGN 5) Non-VA INSULIN LISPRO HUMALOG 6) Non-VA LISINOPRIL 5MG TAB 5MG MOUTH EVERY DAY ACTIVE 7) Non-VA MAGNESIUM OXIDE 400MG TAB 8) Non-VA METOPROLOL SUCCINATE 50MG 9) Non-VA MULTIVITAMIN CAP/TAB 10) Non-VA RANOLAZINE 500MG SA TAB 11) Non-VA ROSUVASTATIN CA 40MG TAB 40MG MOUTH EVERY DAY ACTIVE 12) Non-VA TRAZODONE HCL 50MG TAB Surgeries: No data available Allergies: ISOSORBIDE Social History Marital Status: Occupation: [employer] retired ETOH: no Smoking: No Family History - Non-contributory Review of Systems: A 13-point review of systems is negative except for the above findings. Physical Examination Vitals: DATE/TIME TEMP PULSE RESP BP PAIN WEIGHT 12/30/23 @ 1126 97.7 61 134/63 0 235.8 BODY MASS INDEX - DEC 30, 2023@11:26:47 33.9 A1c: HbA1c/HbA1c POC: Collection DT Specimen Test Name Result Units Ref Range 10/22/2023 14:03 BLOOD !! HEMOGLOBIN A1C 6.0 H % 4.0 - 5.6 10/22/2023 14:03 BLOOD HGB 14.9 g/dl 12.8 - 17 General - the patient is alert and oriented to person, place, time, and situation and without signs of distress. Gait - WNL Musculoskeletal - foot/ankle exam EXAM: plantar pain: Negative Arch: slight cavus Skin - WPD, no signs of ecchymosis, erythema, edema, lesions or infection stasis: Negative Toes: R5 surgically removed Nails: slightly dystrophic, non-fungal, small thin spicule L. medial nail. Neurovascular: SW 5.07 intact Pulses: Right DP Biphasic PT Biphasic Left DP Biphasic PT Biphasic ASSESSMENT: 1. DM2 2. In growing nail 3. Nail Dystrophy 4. absense of R5 toe PLAN: All of the 's questions were answered and they demonstrate excellent understanding of the instructions given at this visit. - RTC 3 months - nails trimmed x9, small spicule removed but due to size it was difficult to grasp and there may be additional nail under cuticle which will be addressed during next visit, Follow up will be as scheduled /jayce/ JOSE LUIS OCONNOR Physician Customer Service Receptionist Signed: 03/24/2024 07:03 /jayce/ SHILO LAL DPM Cosigned: 03/24/2024 07:13 03/24/2024 ADDENDUM STATUS: COMPLETED Plan is consistent with diagnosis /jayce/ SHILO LAL DPM Signed: 03/24/2024 07:13 JOSE LUIS OCONNOR [facility]
--- OUTSIDE RECORDS SUMMARY | 2024-05-06 04:52 | XMS_ITS | Encounter Summary ---
Author Organization [facility] Address [address] [place] [address] Care Team Providers Care Web Marketing Analyst Name Role Phone Denise Hooker JENNIFER Primary Care Provider [phone] Reason for Visit * Reason Comments Coronary Artery Disease Encounter Details Date Type Department Care Team ([facility] st Contact Info) Description 10/15/2023 15:00 EDT Office Visit [facility] Cardiology - [address] [place] [address] Davian Almonte MD [address] [place], [place] [phone] Chronic stable angina (Primary Dx); Coronary artery disease involving [place] heart with angina pectoris, unspecified vessel or lesion type ([facility]) Social History Tobacco Use Types Packs/Day Years [...] a past medical history of CAD (1st [place] 1992 DESx2'04, x3 RCA '10, x3 LAD [...] 3 RCA; 2003 stents X2 Diabetes mellitus ([facility]) oral agents Diverticulitis Hyperlipidemia Hypertension [place] (myocardial infarction) ([facility]) 1992, 2003 Recurrent infections rt [...] any significant stenosis. Chronic Angina CAD (1st [place] 1992 DESx2'04, x3 RCA '10, x3 LAD '10, x1 '16) Extensive History of Revascularization w/ Dr. Galloway HTN HLD -Amlodipine 10 -ASA -IMDUR 30 -Lisinopril 5 -MTS 150 -Ranexa 500 bid -Rosuva 40 Follow up in: 1yr Case discussed with Dr. Dunn. Davian Almonte MD Document Manager * Birgit Dunn MD - 10/15/2023 1500 EDT Attending Attestation: I discussed this patient with the fellow and agree with the findings and plan as outlined. Birgit Dunn MD documented in this encounter Plan of Treatment Upcoming Encounters Date Type Department Care Team (Late st Contact Info) Description 08/08/2024 13:00 EST Office Visit [facility] Gastroenterology - [address] [phone] Kera Tatum PA-C [address] [facility], [address] [place] [phone] 11/15/2024 18:30 EDT Office Visit [facility] Cardiology - [place] [address] Davian Almonte MD [address] [place], [place] [address] documented as of this encounter Visit Diagnoses Diagnosis Chronic stable angina (HCC-CMS)- Primary Coronary artery disease involving [place] heart with angina pectoris, unspecified vessel or lesion type (HCC-CMS) documented in this encounter Historical Medications * This list may reflect changes made after this encounter. Medication Sig Dispensed Refills Start Date End Date magnesium oxide (MAG-OX) 400 mg (241.3 mg magnesium) tablet Take 1 Tablet by mouth at bedtime. 09/01/2023 added in this encounter Care Teams Web Marketing Analyst Relationship Specialty Start Date End Date Denise Hooker APRN [address] [place] [address] PCP - General 09/13/18 documented as of this encounter
--- OUTSIDE RECORDS SUMMARY | 2024-05-06 04:52 | XMS_ITS | Encounter Summary ---
Author Organization [facility] Address [address] [place] [address] Care Team Providers Care Fence Repairman Name Role Phone Denise Hooker JENNIFER Primary Care Provider [phone] Reason for Visit * Reason Onset Date Comments Other 04/19/2020 Encounter Details Date Type Department Care Team ([facility] Contact Info) Description 04/19/2020 Telephone [facility] Gastroenterology - [facility] [address] [place] [address] Kaye Kimbrough, JANNY [address] [place] [address] Other Social History Tobacco Use Types Packs/Day [...] Info) Description 08/08/2024 13:00 EST Office Visit [facility] Gastroenterology - [address] [phone] Kera Tatum PA-C [address] [facility], [address] [place] [address] 11/15/2024 18:30 EDT Office Visit [facility] Cardiology - [address] [place], [place] [phone] Davian Almonte MD [address] [place], [place] [phone] documented as of this encounter Visit Diagnoses Not on filedocumented in this encounter Care Teams Fence Repairman Relationship Specialty Start Date End Date Denise Hooker APRN [address] [place] [address] PCP - General 09/13/18 documented as of this encounter
--- OUTSIDE RECORDS SUMMARY | 2024-05-06 04:52 | XMS_ITS | Encounter Summary ---
Author Organization [facility] Address [address] [place] [address] Care Team Providers Care Flash Designer Name Role Phone Denise Hooker JENNIFER Primary Care Provider [phone] Encounter Details Date Type Department Care Team ([facility] Contact Info) Description 12/26/2022 Lab Requisition [facility] Pathology & Laboratory Medicine - [facility] [address] [place] [address] Grace Castillo MD [address] [place] [phone] Neoplasm of uncertain behavior of skin Social [...] Visit [facility] Gastroenterology - [address] [address] Kera Tatum PA-C [address] [place] [address], [facility], [address] [place] [phone] 11/15/2024 18:30 EDT Office Visit [facility] Cardiology - [address] [place], [place] [phone] Davian Almonte MD [address] [place] [id number] documented as of this encounter Procedures Procedure [...] management options, if applicable. 12/30/2022 11:10 EDT [facility] Final Diagnosis A. SKIN OF FOREARM, LEFT, PUNCH BIOPSY: - Seborrheic keratosis, irritated and inflamed. 12/30/2022 11:10 [facility] Attestation By the signature below, the attending physician certifies that they have 1) personally conducted a gross and/or microscopic examination of the described specimen(s), and/or personally interpreted the results of laboratory testing of the described specimen(s), and 2) personally rendered or confirmed the above diagnosis. 12/30/2022 11:10 [facility] at 1109 Microscopic Description Orthohyperkeratosis [...] vacuolar change and keratinocyte necrosis. 12/30/2022 11:10 [facility] Clinical History Friable papule, unroofed spontaneously prior to procedure; clinical diagnosis code: D48.9 12/30/2022 11:10 [facility] Gross Description A. Received in formalin labelled with proper patient identification (initials M, G) and L forearm Bx is a punch biopsy of pale rock focally red-brown skin (0.4 cm in diameter by 0.4 cm in thickness). The specimen is bisected and entirely submitted in A1. Ronnie Scripter 12/29/2022 11:56 12/30/2022 11:10 [facility] Performing Lab [facility] 12/30/2022 11:10 [facility] Scanned Images 12/30/2022 11:10 [facility] Tissue TISSUE SPECIMEN FROM SKIN / Unknown 12/26/2022 12:10 EDT 12/26/2022 19:11 EDT Grace Castillo MD PATHOLOGY ORDERABLES [facility] [address] [place] [address] documented in this encounter Visit Diagnoses Diagnosis Neoplasm of uncertain behavior of skin documented in this encounter Care Teams Flash Designer Relationship Specialty Start Date End Date Denise Hooker APRN [address] [place] [address] PCP - General 09/13/18 documented as of this encounter
--- OUTSIDE RECORDS SUMMARY | 2024-05-06 04:52 | XMS_ITS | Encounter Summary ---
Author Organization [facility] Address [address] [place] [address] Care Team Providers Care Fixing Machine Operator Name Role Phone Lilia Hookerhrcharu Easton JENNIFER Primary Care Provider [phone] [phone] Reason for Visit * Reason Onset Date Comments Appointment Related 05/03/2020 Returning Call 05/03/2020 Encounter Details Date Type Department Care Team ([facility] Contact Info) Description 05/03/2020 Telephone [facility] Cardiology - [address] [place] [address] Bebo Guzman MD [address] [facility], [address] [place] [address] Appointment Related; Returning Call Social [...] returning call. Patient OK with zoom, so press writer rescheduled 05/04 to same. * Telephone Encounter - Leigh Ann Gonzales - 05/03/2020 1016 EDT Called patient to see if wanted to change appt tomorrow, 04/24, with Dr. Guzman to a TabSyso appt. If patient states that they would like to keep as an in office appt, that is fine. documented in this encounter Plan of Treatment Upcoming Encounters Date Type Department Care Team (Late st Contact Info) Description 08/08/2024 13:00 EST Office Visit [facility] Gastroenterology - [facility] [address] [place], [place] [address] Kera Tatum PA-C [address] [facility], [facility], [address] [place] [address] 11/15/2024 18:30 EDT Office Visit [facility] Cardiology - [address] [place], [place] [phone] Davian Almonte MD [address] [place], [place] [address] documented as of this encounter Visit Diagnoses Not on filedocumented in this encounter Care Teams Fixing Machine Operator Relationship Specialty Start Date End Date Denise Hooker, JENNIFER [address] [place], [place] [address] PCP - General 09/13/18 documented as of this encounter
--- OUTSIDE RECORDS SUMMARY | 2024-05-06 04:52 | XMS_ITS | Encounter Summary ---
Author Organization [facility] Address [address] [place] [address] Care Team Providers Care Wood Pile Driver Operator Name Role Phone Denise Hooker APRN Primary Care Provider [phone] [phone] Reason for Referral * Cardiology (Routine/Next Available) - Closed Specialty Diagnoses / Procedures Referred By Claire jacques Referred To Contact Diagnoses Coronary artery disease involving [place] heart with angina pectoris, unspecified vessel or lesion type ([facility]) Procedures TRANSTHORACIC ECHO (TTE) COMPLETE RI ECHO HEART XTHORACIC,COMPLETE W DOPPLER Ita Zimmer MD [address] [facility] [address] [place] [address] [facility] Referral ID Status Reason Start Date Expiration Date Visits Re quested Visits Authorized [id number] Closed 1 1 Reason for Visit * Reason Comments Heart Problem * Referral (Urgent) - Receiving Office to Obtain Authorization Specialty Diagnoses / Procedures Referred By Claire t Referred To Contact Cardiology Diagnoses Chest pain, unspecified Atherosclerotic heart disease of [place] coronary artery without angina pectoris Old myocardial infarction Non-ST elevation (NSTEMI) myocardial infarction ([facility]) Denise Hooker APRN [address] [facility] [address] [place] [address] [facility] Cardiology [address] [place] [address] Referral ID Status Reason Start Date Expiration Date Visits Requested Visits Authorized [id number] Receiving Office to Obtain Authorization 1 1 Encounter Details Date Type Department Care Team (Late st Contact Info) Description 03/24/2023 18:00 EDT Office Visit [facility] Cardiology - [address] [place], [place] [phone] Davian Almonte MD [address] [place] [phone] Coronary artery disease involving [place] heart with angina pectoris, unspecified vessel or lesion type ([facility]) (Primary Dx) Social History Tobacco [...] a past medical history of CAD (1st [place] 1992 DESx2'04, x3 RCA '10, x3 LAD '10, x1 '16), Hypertension, hyperlipidemia, DEEPALI, diabetes, depression, htud 59py, NAFLD, here today to establish care. Former patient of Dr. Johnson who has a significant history of CO/NSTEMI with resultant interventions. He reports at the [...] RCA; 2004 stents X2 ??? Diabetes mellitus ([facility]) oral agents ??? Diverticulitis ??? Hyperlipidemia ??? Hypertension ??? [place] (myocardial infarction) ([facility]) (HCC) ([facility]) 1992, 2003 ??? Recurrent infections rt [...] discussed with Dr. Zimmer. Davian Almonte MD Home Mortgage Disclosure Act Specialist * Ita Zimmer MD - 03/24/2023 1800 [...] at secondary prevention. Ita Zimmer MD Attending Tuber Machine Operator Helper, [facility] documented in this encounter Plan of Treatment Upcoming Encounters Date Type Department Care Team (Late st Contact Info) Description 08/08/2024 13:00 EST Office Visit [facility] Gastroenterology - [facility] [address] [place], [place] [address] Kera Tatum PA-C [address] [facility], [facility], [address] [place] [phone] 11/15/2024 18:30 EDT Office Visit [facility] Cardiology - [place] [address] Davian Almonte MD [address] [place], [place] [phone] documented as of this encounter Results * [...] color Doppler.The study was interpreted by [facility]. Pertinent images [...] Visit Diagnoses Diagnosis Coronary artery disease involving [place] heart with angina pectoris, unspecified vessel or lesion type (HCC-CMS)- Primary Coronary artery disease involving [place] heart with angina pectoris, unspecified vessel or lesion type (HCC-CMS) documented in this encounter Care Teams Wood Pile Driver Operator Relationship Specialty Start Date End Date MorroDenise APRN [address] [place] [address] PCP - General 09/13/18 documented as of this encounter
--- OUTSIDE RECORDS SUMMARY | 2024-05-06 04:52 | XMS_ITS | Encounter Summary ---
Author Organization [facility] Address [address] [place] [address] Care Team Providers Care Exchange Architect Name Role Phone Denise Hooker JENNIFER Primary Care Provider +1 -[phone] Reason for Visit * Reason Comments Follow-up red Encounter Details Date Type Department Care Team ([facility] Contact Info) Description 04/17/2020 13:00 EDT Office Visit [facility] Gastroenterology - [facility] [address] [place] [address] Letty Mackey MD [address] [place] [phone] NAFLD (nonalcoholic fatty liver disease) (Primary [...] to exercise. He was laid off with [employer], so has decided to have an early shelter. He is planning to spend this winter in [place]. He does not have a doctor there, [...] 2019) History of liver biopsy: no Colonoscopy: ([facility]). Noted diverticula. Some polyps removed (patient [...] RCA; 2003 stents X2 ??? Diabetes mellitus ([facility]) oral agents ??? Diverticulitis ??? Hyperlipidemia ??? Hypertension ??? [place] (myocardial infarction) ([facility]) 1992, 2003 ??? Recurrent infections rt [...] file Gets together: Not on file Attends pentecostal service: Not on file Active member of [...] he needs to find a doctor in [place] to help coordinate his screening -CMP, CBC, [...] is planning to spend the winter in [place] This patient was seen and examined with Dr. Narendra Garcia MD Gastroenterology & Hepatology Fellow #[id number] GI Attending Addendum: Patient seen and examined [...] and Hepatology [facility] documented in this encounter Plan of Treatment Upcoming Encounters Date Type Department Care Team (Late st Contact Info) Description 08/08/2024 13:00 EST Office Visit [facility] Gastroenterology - [facility] [address], [place] [phone] Kera Tatum PA-C 111 [facility], [facility], [address] 5 [place] [address] 11/15/2024 18:30 EDT Office Visit [facility] Cardiology - Jenelle [address]elle [address] [place], [place] [phone] Davian Almonte MD [address] [place], [place] [phone] documented as of this encounter Results * (ABNORMAL) COMPLETE BLOOD COUNT (04/17/2020 14:09 EDT) [facility] WBC 7.85 4.00 - 10.40 K/cmm 04/17/2020 14:34 [facility] RBC 5.14 4.36 - 5.78 M/cmm 04/17/2020 14:34 [facility] Hemoglobin 14.1 13.8 - 17.3 gm/dL 04/17/2020 14:34 [facility] HCT 43.4 39.5 - 50.2 % 04/17/2020 14:34 [facility] MCV 84 81 - 95 fl 04/17/2020 14:34 [facility] MCH 27.4(L) 27.6 - 33.0 pg 04/17/2020 14:34 [facility] MCHC 32.5(L) 32.8 - 36.4 gm/dL 04/17/2020 14:34 [facility] RDW-CV 13.2 <14.2 % 04/17/2020 14:34 [facility] RDW-SD 41.2 <46.0 fl 04/17/2020 14:34 [facility] PLT 269 141 - 377 K/cmm 04/17/2020 14:34 [facility] MPV 10.1 9.5 - 12.7 fl 04/17/2020 14:34 [facility] Blood VENOUS BLOOD / Unknown Venipuncture / Unknown 04/17/2020 14:09 EDT 04/17/2020 14:26 EDT Letty Mackey MD HEMATOLOGY & PF4 ORD ERABLES [facility] [address] [place] [address] * PROTIME (04/17/2020 14:09 EDT) [facility] I.N.R. 1.1 0.9 - 1.1 Ratio 04/17/2020 14:46 [facility] Pro Time 12.3 10.3 - 13.4 secs 04/17/2020 14:46 [facility] Blood VENOUS BLOOD / Unknown Venipuncture / Unknown 04/17/2020 14:09 EDT 04/17/2020 14:26 EDT Narrative [facility] - 04/17/2020 14:46 EDT Moderate Intensity Coumadin INR = 2.0-3.0 Adjustments in anticoagulant therapy dose should be based on the INR and NOT on the Protime. Letty Mackey MD HEMATOLOGY & PF4 ORD ERABLES [facility] [address] [place] [address] * (ABNORMAL) COMPREHENSIVE METABOLIC PANEL (CMP) (04/17/2020 14:09 EDT) [facility] Sodium 141 136 - 145 mEq/L 04/17/2020 15:00 [facility] Potassium 4.3 3.5 - 5.0 mEq/L 04/17/2020 15:00 [facility] Chloride 101 96 - 110 mEq/L 04/17/2020 15:00 [facility] CO2 Total 29 22 - 32 mEq/L 04/17/2020 15:00 [facility] Glucose 148(H) 70 - 100 mg/dL 04/17/2020 15:00 [facility] BUN 17 10 - 26 mg/dL 04/17/2020 15:00 [facility] Creatinine 0.79 0.66 - 1.25 mg/dL 04/17/2020 15:00 [facility] eGFR 94 >60 mL/min/1.7 3m2 04/17/2020 15:00 [facility] Comment:eGFR calculated rut g CKD-EPI equation for non- Americans. Multiply eGFR by 1.16 for patients. Total Protein 7.1 6.3 - 8.2 g/dL 04/17/2020 15:00 EDT [facility] Albumin 4.3 3.4 - 4.9 g/dL 04/17/2020 15:00 T [facility] Alkaline Phosphatase 73 38 - 126 U/L 04/17/2020 15:00 EDT [facility] AST 38 15 - 46 U/L 04/17/2020 15:00 EDT [facility] ALT 60(H) <50 U/L 04/17/2020 15:00 EDT [facility] Bilirubin, Total 0.5 <1.4 mg/dL 04/17/20 20 15:00 T [facility] Calcium 9.8 8.5 - 10.5 mg/dL 04/17/2020 15:00 T [facility] Calculated Calcium 9.6 8.5 - 10.5 mg/dL 04/17/2020 15:00 T [facility] Blood VENOUS BLOOD / Unknown Venipuncture / Unknown 04/17/2020 14:09 EDT 04/17/2020 14:26 EDT Letty Mackey MD CHEMISTRY & BLOOD GA S ORDERABLES [facility] [address] [place] [address] documented in this encounter Visit Diagnoses Diagnosis NAFLD (nonalcoholic fatty liver disease)- Primary Other chronic nonalcoholic liver disease documented in this encounter Care Teams Exchange Architect Relationship Specialty Start Date End Date Denise Hooker APRN [address] [place] [address] PCP - General 09/13/18 documented as of this encounter
--- OUTSIDE RECORDS SUMMARY | 2024-05-06 04:52 | XMS_ITS | Encounter Summary ---
Author Organization [facility] Address [address] [place] [address] Care Team Providers Care Dispatch Coordinator Name Role Phone Denise Hooker JENNIFER Primary Care Provider [phone] Encounter Details Date Type Department Care Team [...] No 03/18/2020 Cognitive Status Response Date of Assess ent Because of a physical, menta l, or emotional condition, do you have serious difficulty concentrating, remembering, or making decisions? (5 years old or older) No 03/18/2020 documented as of this encounter Plan of Treatment Upcoming Encounters Date Type Department Care Team (Late st Contact Info) Description 08/08/2024 13:00 EST Office Visit [facility] Gastroenterology - [address] [address] Kera Tatum PA-C [address] [place] [address], [address] [place] [phone] 11/15/2024 18:30 EDT Office Visit [facility] Cardiology - [place] [address] Davian Almonte MD [address] [place] [phone] documented as of this encounter Visit Diagnoses Not on filedocumented in this encounter Care Teams Dispatch Coordinator Relationship Specialty Start Date End Date Denise Hooker APRN [address] [place], [place] [address] PCP - General 09/13/18 documented as of this encounter
--- OUTSIDE RECORDS SUMMARY | 2024-05-06 04:52 | XMS_ITS | Encounter Summary ---
Author Organization [facility] Address [address] [place] [address] Care Team Providers Care Digital Advertising Specialist Name Role Phone MorroLilia galvanhryn Jemma RODRIGUEZ Primary Care Provider [phone] [phone] Reason for Visit * Reason Comments Arrhythmia ventricular tachy Follow-up televideo long * Consult (Routine/Next Available) - Order Cancelled Specialty Diagnoses / Procedures Referred By Claire jacques Referred To Contact Cardiology Diagnoses NSTEMI (non-ST elevated myocardial infarction) ([facility]) NSVT (nonsustained ventricular tachycardia) ([facility]) Jeison Pickett, [address], [place] [address] [facility] Cardiology [place] [address] Referral ID Status Reason Start Date Expiration Date Visits Requested Visits Authorized [id number] Order Cancelled Specialty Services Required 03/22/2020 1 1 Encounter Details Date Type Department Care Team (Late st Contact Info) Description 05/04/2020 10:20 EDT Telemedicine [facility] Cardiology - Jen[place] [address] Bebo Guzman MD [address] [facility], Level [address] [place] [address] [place] (ventricular tachycardia) ([facility]) (Primary Dx) Social History Tobacco Use Types [...] 69 ??? Hypertensive disorder ??? Diabetes mellitus ([facility]) ??? Chest pain ??? Depression ??? Type 2 diabetes mellitus with vascular disease ([facility]) ??? NSVT (nonsustained ventricular tachycardia) ([facility]) Past Medical History: Diagnosis Date ??? CAD (coronary artery disease) 09-10-09 PCI LAD prox MARY, LAD mid MARY, LAD distal BMS; 09-07-09 PCI MARY X 3 RCA; 2004 stents X2 ??? Diabetes mellitus ([facility]) oral agents ??? Diverticulitis ??? Hyperlipidemia ??? Hypertension ??? [place] (myocardial infarction) ([facility]) 1992, 2003 ??? Recurrent infections rt [...] 08/08/2024 13:00 EST Office Visit [facility] Gastroenterology - [address] [address] Kera Tatum PA-C [address] [place] [address], [address] [place] [phone] 11/15/2024 18:30 EDT Office Visit [facility] Cardiology - [place]elle [place] [address] Davian Almonte MD [address] [place] [address] documented as of this encounter Visit Diagnoses Diagnosis [place] (ventricular tachycardia) ([facility])- Primary Paroxysmal ventricular tachycardia documented in this encounter Historical Medications * This list may reflect changes made after this encounter. Medication Sig Dispensed Refills Start Date End Date isosorbide mononitrate (IMDUR) 30 mg CR tablet Take 30 mg by mouth every morning. 15 mg, 1/2 tab added in this encounter Care Teams Digital Advertising Specialist Relationship Specialty Start Date End Date Denise Hooker APRN [address] [place] [address] PCP - General 09/13/18 documented as of this encounter
--- OUTSIDE RECORDS SUMMARY | 2024-05-06 04:52 | XMS_ITS | Encounter Summary ---
Author Organization [facility] Address [address] [place] [address] Care Team Providers Care Academic Coordinator Name Role Phone Denise Hooker JENNIFER Primary Care Provider [phone] -[phone] Reason for Visit * Reason Onset Date Comments Results 12/09/2022 Encounter Details Date Type Department Care Team ([facility] Contact Info) Description 12/09/2022 Telephone [facility] Gastroenterology - [facility] [address] [place], [place] [phone] Kaye Kimbrough, JANNY [address] [place] [address] Results Social History Tobacco Use Types Packs/Day [...] 13:00 EST Office Visit [facility] Gastroenterology - [address] [address] Kera Tatum PA-C 111 [facility], [address] [place] [phone] 11/15/2024 18:30 EDT Office Visit [facility] Cardiology - [place] [address] Davian Almonte MD [address] [place], [place] [address] documented as of this encounter Visit Diagnoses Not on filedocumented in this encounter Care Teams Academic Coordinator Relationship Specialty Start Date End Date Denise Hooker APRN [address] [place] [address] PCP - General 09/13/18 documented as of this encounter
--- OUTSIDE RECORDS SUMMARY | 2024-05-06 04:52 | XMS_ITS | Encounter Summary ---
Author Organization [facility] Address [address] [place] [address] Care Team Providers Care Linux Systems Engineer Name Role Phone Denise Hooker JENNIFER Primary Care Provider [phone] [phone] Reason for Referral * Laboratory Services (Routine/Next Available) - New Request Specialty Diagnoses / Procedures Referred By [facility] jacques Referred To Contact Diagnoses Coronary artery disease involving [place]ahu[place] heart with angina pectoris, unspecified vessel or lesion type ([facility]) Procedures LIPID PROFILE (INCLUDES CHOLESTEROL, TRIGLYCERIDES, HDL, LDL) Ita Zimmer MD 62 [facility] [address] [place] [phone] Referral ID Status Reason Start Date Expiration Date V isits Requested Visits Authorized [id number] New Request 09/30/2023 1 1 Reason for Visit * Reason Onset Date Comments Pre-visit Orders 09/30/2023 Encounter Details Date Type Department Care Team ([facility] st Contact Info) Description 09/30/2023 Telephone [facility] Cardiology - [facility] 62 [facility] [place] [address] Davian Almotne MD [address] [place], [place] [phone] Pre-visit Orders Social History Tobacco Use Types [...] prior to when you see him 10/14? Corner Bead Operator spoke with pt who stated to please fax the lab order to [facility] at [phone] documented in this encounter Plan of Treatment Upcoming Encounters Date Type Department Care Team (Late st Contact Info) Description 08/08/2024 13:00 EST Office Visit [facility] Gastroenterology - [address] [phone] Kera Tatum PA-C 111 [facility], [facility], Level [address] [place] [phone] 11/15/2024 18:30 EDT Office Visit [facility] Cardiology - Jenelle [address] [place] [address] Davian Almonte MD [address] [place], [place] [phone] Scheduled Orders Name Type Priority Associated Diagnoses Orde r Schedule LIPID PROFILE (INCLUDES CHOLESTEROL, TRIGLYCERIDES, HDL, LDL) Lab Routine Coronary artery disease involving cahuilla heart with angina pectoris, unspecified vessel or lesion type (HCC-CMS) Expected: 09/30/2023 (Approximate), Expires: 09/29/2024 documented as of this encounter Visit Diagnoses Diagnosis Coronary artery disease involving cahuilla heart with angina pectoris, unspecified vessel or lesion type (HCC-CMS)- Primary documented in this encounter Care Teams Linux Systems Engineer Relationship Specialty Start Date End Date Denise Hooker APRN [address] [place] [address] PCP - General 09/13/18 documented as of this encounter
--- OUTSIDE RECORDS SUMMARY | 2024-05-06 04:52 | XMS_ITS | Encounter Summary ---
Author Organization [facility] Address [address] [place] [address] Care Team Providers Care Type Mapper Name Role Phone Morro Denise Easton APRN Primary Care Provider [phone] Reason for Referral * Cardiology (Routine/Next Available) - Closed Specialty Diagnoses / Procedures Referred By Claire jacques Referred To Contact Cardiology Diagnoses Ventricular tachycardia (HCC-CMS) Procedures CARDIAC EVENT MONITOR Jeison Pickett DO [address] [place] [address] [facility] [place] [address] Referral ID Status Reason Start Date Expiration Date Visits Re quested Visits Authorized [id number] Closed 03/22/2020 1 1 Reason for Visit * Cardiology (Routine/Next Available) - Closed Specialty Diagnoses / Procedures Referred By Claire jacques Referred To Contact Cardiology Diagnoses Ventricular tachycardia (HCC-CMS) Procedures CARDIAC EVENT MONITOR Jeison Pickett DO [address] [place] [address] [facility] Cardiology [address] [place] [address] Referral ID Status Reason Start Date Expiration Date Visits Re quested Visits Authorized [id number] Closed 03/22/2020 1 1 Encounter Details Date Type Department Care Team (Latest Contact Info) Description 04/23/2020 8:53 EDT - 04/23/2020 23:59 EDT Hospital Encounter [facility] Non-Invasive Cardiology [address] [address] Ventricular tachycardia ([facility]) Discharge Disposition: Home or Self Care Social [...] Info) Description 08/08/2024 13:00 EST Office Visit [facility] Gastroenterology - [address] [address] Kera Tatum PA-C 111 [facility], [address] [place] [phone] 11/15/2024 18:30 EDT Office Visit [facility] Cardiology - [address] [place] [address] Davian Almonte MD [address] [place], [place] [address] documented as of this encounter Procedures Procedure Name Priority Date/Time Associated Diagnosis Comments 30 DAY ELECTRICAL DESIGN ENGINEER Routine 04/23/2020 8:54 EDT Ventricular tachycardia (HCC-CMS) documented in this encounter Results * CARDIAC EVENT MONITOR (04/23/2020 8:54 EDT) Anatomical Region Laterality Modality Other Narrative 04/23/2020 10:31 EDT Baseline rhythm is sinus No arrhythmias No symptoms reported Jeison Pickett DO CARDIAC SERVICES ORD ERABLES documented in this encounter Visit Diagnoses Diagnosis Ventricular tachycardia (HCC-CMS) Paroxysmal ventricular tachycardia documented in this encounter Care Teams Type Mapper Relationship Specialty Start Date End Date Denise Hooker APRN [address] [place] [address] PCP - General 09/13/18 documented as of this encounter
--- OUTSIDE RECORDS SUMMARY | 2024-05-06 04:52 | XMS_ITS | Encounter Summary ---
Author Organization [facility] Address [address] [place] [address] Care Team Providers Care Web Marketing Coordinator Name Role Phone MorroLilia galvanhrcharu [place] JENNIFER Primary Care Provider [phone] Reason for Visit * Reason Onset Date Comments Telemedicine Video Visit 04/04/2020 Encounter Details Date Type Department Care Team ([facility] Contact Info) Description 04/04/2020 Telephone [facility] Cardiology - Jenelle 62 [facility] [place] [address] Kitty Medina MD [address] [place] [address] Telemedicine Video Visit Social History Tobacco Use [...] video visit withDr. Medina at 1pm today. [employer] Lead informed patient that this group would not be able to address internet connection and it would need to be through their [employer] company. Patient just wants provider to be aware of recent issues, so if he loses connection he requests a phone call. documented in this encounter Plan of Treatment Upcoming Encounters Date Type Department Care Team (Late st Contact Info) Description 08/08/2024 13:00 EST Office Visit [facility] Gastroenterology - [address] [phone] Kera Tatum PA-C [address] [place] [address], [facility], [address] [place] [phone] 11/15/2024 18:30 EDT Office Visit [facility] Cardiology - [place] [address] Davian Almonte MD [address] [place], [place] [address] documented as of this encounter Visit Diagnoses Not on filedocumented in this encounter Care Teams Web Marketing Coordinator Relationship Specialty Start Date End Date Denise Hooker APRN [address] [place], [place] [id number] PCP - General 09/13/18 documented as of this encounter
--- OUTSIDE RECORDS SUMMARY | 2024-05-06 04:52 | XMS_ITS | Encounter Summary ---
Author Organization [facility] Address [address] [place] [address] Care Team Providers Care Fiberglass Fabricator Name Role Phone Denise Hooker JENNIFER Primary Care Provider [phone] Reason for Visit * Cardiology (Routine/Next Available) - Closed Specialty Diagnoses / Procedures Referred By Claire jacques Referred To Contact Diagnoses Coronary artery disease involving [place] heart with angina pectoris, unspecified vessel or lesion type ([facility]) Procedures TRANSTHORACIC ECHO (TTE) COMPLETE AK ECHO HEART XTHORACIC,COMPLETE W DOPPLER Ita Zimmer MD [address] [facility] [address] [place] [address] [facility] Referral ID Status Reason Start Date Expiration Date Visits Re quested Visits Authorized [id number] Closed 1 1 Encounter Details Date Type Department Care Team (Latest Contact Info) Description 10/15/2023 14:00 EDT Ancillary Procedure [facility] Cardiology - [address] [place] [address] Coronary artery disease involving [place] heart with angina pectoris, unspecified vessel or lesion type ([facility]) Social History Tobacco Use Types Packs/Day Years [...] 08/08/2024 13:00 EST Office Visit [facility] Gastroenterology - [address] [address] Kera Tatum PA-C [address] [place] [address], [address] [place] [phone] 11/15/2024 18:30 EDT Office Visit [facility] Cardiology - [place]elle [place] [address] Davian Almonte MD [address] [place] [address] documented as of this encounter Procedures Procedure Name Priority Date/Time Associated Diagnosis Comments TRANSTHORACIC ECHO (TTE) COMPLETE Routine 10/15/2023 14:41 EDT Coronary artery disease involving [place] heart with angina pectoris, unspecified vessel or lesion type (HCC-CMS) documented in this encounter Results * TRANSTHORACIC [...] color Doppler.The study was interpreted by [facility] Cardiology. Pertinent images and digital data are archived for permanent storage and are available for subsequent review. Scanning was performed from the apical, parasternal, subcostal and suprasternal acoustic windows. Overall the study quality was adequate. Images were obtained using cardiac ultrasound machine EPIQ #[id number]. Iat Zimmer MD CARDIAC ECHO ORDERAB LES documented in this encounter Visit Diagnoses Diagnosis Coronary artery disease involving [place] heart with angina pectoris, unspecified vessel or lesion type ([facility]) documented in this encounter Care Teams Fiberglass Fabricator Relationship Specialty Start Date End Date Denise Hooker, JENNIFER [address] [place] [address] PCP - General 09/13/18 documented as of this encounter
--- OUTSIDE RECORDS SUMMARY | 2024-05-06 04:52 | XMS_ITS | Encounter Summary ---
Author Organization [facility] Address [address] [place] [address] Care Team Providers Care Steel Roller Name Role Phone Denise Hooker JENNIFER Primary Care Provider [phone] Encounter Details Date Type Department Care Team ([facility] Contact Info) Description 04/17/2020 14:00 EDT Phlebotomy Only [facility] ED Center 2 Phlebotomy [address] [place], [place] [id number] Home Demonstrator, Acc Phlebotomy NAFLD (nonalcoholic fatty liver disease) [...] 08/08/2024 13:00 EST Office Visit [facility] Gastroenterology - [address] [address] Kera Tatum PA-C 111 [facility], [address] [place] [phone] 11/15/2024 18:30 EDT Office Visit [facility] Cardiology - [place] [address] Davian Almonte MD [address] [place] [phone] documented as of this encounter Procedures Procedure Name Priority Date/Time Associated Diagnosis Comments PROTIME Routine 04/17/2020 14:09 EDT NAFLD (nonalcoholic fatty liver disease) COMPLETE BLOOD COUNT Routine 04/17/2020 14:09 EDT NAFLD (nonalcoholic fatty liver disease) COMPREHENSIVE METABOLIC PANEL (CMP) Routine 04/17/2020 14:09 EDT NAFLD (nonalcoholic fatty liver disease) documented in this encounter Results * (ABNORMAL) COMPLETE BLOOD COUNT (04/17/2020 14:09 EDT) [facility] WBC 7.85 4.00 - 10.40 K/cmm 04/17/2020 14:34 [facility] RBC 5.14 4.36 - 5.78 M/cmm 04/17/2020 14:34 [facility] Hemoglobin 14.1 13.8 - 17.3 gm/dL 04/17/2020 14:34 [facility] HCT 43.4 39.5 - 50.2 % 04/17/2020 14:34 [facility] MCV 84 81 - 95 fl 04/17/2020 14:34 [facility] MCH 27.4(L) 27.6 - 33.0 pg 04/17/2020 14:34 [facility] MCHC 32.5(L) 32.8 - 36.4 gm/dL 04/17/2020 14:34 [facility] RDW-CV 13.2 <14.2 % 04/17/2020 14:34 [facility] RDW-SD 41.2 <46.0 fl 04/17/2020 14:34 [facility] PLT 269 141 - 377 K/cmm 04/17/2020 14:34 [facility] MPV 10.1 9.5 - 12.7 fl 04/17/2020 14:34 [facility] Blood VENOUS BLOOD / Unknown Venipuncture / Unknown 04/17/2020 14:09 EDT 04/17/2020 14:26 EDT Letty Mackey MD HEMATOLOGY & PF4 ORD ERABLES [facility] [address] [place] [address] * PROTIME (04/17/2020 14:09 EDT) [facility] I.N.R. 1.1 0.9 - 1.1 Ratio 04/17/2020 14:46 [facility] Pro Time 12.3 10.3 - 13.4 secs 04/17/2020 14:46 [facility] Blood VENOUS BLOOD / Unknown Venipuncture / Unknown 04/17/2020 14:09 EDT 04/17/2020 14:26 EDT Narrative [facility] - 04/17/2020 14:46 EDT Moderate Intensity Coumadin INR = 2.0-3.0 Adjustments in anticoagulant therapy dose should be based on the INR and NOT on the Protime. Letty Mackey MD HEMATOLOGY & PF4 ORD ERABLES [facility] [address] [place] [address] * (ABNORMAL) COMPREHENSIVE METABOLIC PANEL (CMP) (04/17/2020 14:09 EDT) Sodium 141 136 - 145 mEq/L 04/17/2020 15:00 [facility] Potassium 4.3 3.5 - 5.0 mEq/L 04/17/2020 15:00 [facility] Chloride 101 96 - 110 mEq/L 04/17/2020 15:00 [facility] CO2 Total 29 22 - 32 mEq/L 04/17/2020 15:00 [facility] Glucose 148(H) 70 - 100 mg/dL 04/17/2020 15:00 [facility] BUN 17 10 - 26 mg/dL 04/17/2020 15:00 [facility] Creatinine 0.79 0.66 - 1.25 mg/dL 04/17/2020 15:00 [facility] eGFR 94 >60 mL/min/1.7 3m2 04/17/2020 15:00 [facility] Comment:eGFR calculated usin g CKD-EPI equation for non- Americans. Multiply eGFR by 1.16 for patients. Total Protein 7.1 6.3 - 8.2 g/dL 04/17/2020 15:00 [facility] Albumin 4.3 3.4 - 4.9 g/dL 04/17/2020 15:00 [facility] Alkaline Phosphatase 73 38 - 126 U/L 04/17/2020 15:00 EDT [facility] AST 38 15 - 46 U/L 04/17/2020 15:00 EDT [facility] ALT 60(H) <50 U/L 04/17/2020 15:00 EDT [facility] Bilirubin, Total 0.5 <1.4 mg/dL 04/17/20 20 15:00 EDT [facility] Calcium 9.8 8.5 - 10.5 mg/dL 04/17/2020 15:00 EDT [facility] Calculated Calcium 9.6 8.5 - 10.5 mg/dL 04/17/2020 15:00 EDT [facility] Blood VENOUS BLOOD / Unknown Venipuncture / Unknown 04/17/2020 14:09 EDT 04/17/2020 14:26 EDT Letty Mackey MD CHEMISTRY & BLOOD GA S ORDERABLES Performing Organization Address City/State/[facility] Co de Phone Number [facility] [address] [place] [address] documented in this encounter Visit Diagnoses Diagnosis NAFLD (nonalcoholic fatty liver disease)- Primary Other chronic nonalcoholic liver disease documented in this encounter Care Teams Steel Roller Relationship Specialty Start Date End Date Denise Hooker APRN [address] [place] [address] PCP - General 09/13/18 documented as of this encounter
--- OUTSIDE RECORDS SUMMARY | 2024-05-06 04:52 | XMS_ITS | Encounter Summary ---
Author Organization [facility] Address [address] [place] [address] Care Team Providers Care Capacitor Tester Name Role Phone MorroLilia galvanhrcharu [place] JENNIFER Primary Care Provider [phone] Encounter Details Date Type Department Care Team (Late st Contact Info) Description 08/06/2022 Lab Requisition [facility] Pathology & Laboratory Medicine - [facility] [address] [place] [address] [place] [address] [place] [address], [address] [place], [place] [phone] Encounter for other general examination Social History [...] Info) Description 08/08/2024 13:00 EST Office Visit [facility] Gastroenterology - [address] [phone] Kera Tatum PA-C [address] [place] [address], [facility], [address] [place] [phone] 11/15/2024 18:30 EDT Office Visit [facility] Cardiology - Jenelle Jenelle Te[address] [place], [place] [phone] Davian Almonte MD [address] [place] [phone] documented as of this encounter Procedures Procedure [...] explore management options, if applicable. 08/08/2022 10:07 EST [facility] Final Diagnosis A. GALLBLADDER, CHOLECYSTECTOMY: - Chronic cholecystitis. - Cholelithiasis. 08/08/2022 10:07 [facility] Attestation There was significant resident/fellow involvement in the diagnostic evaluation of this case. By the signature below, the attending physician certifies that they have personally conducted a gross and/or microscopic examination of the described specimens and rendered or confirmed the above diagnosis. 08/08/2022 10:07 [facility] at 1007 Clinical History Gallstones 08/08/2022 10:07 [facility] Gross Description A. Received in [...] cm in greatest dimension) is present. Two publications sales representative sections and the en face cystic duct margin are submitted in A1. LISSA AVILA([facility]) 08/06/2022 8:35 08/08/2022 10:07 [facility] Resident/Otoniel w: Regis Mccain MD 08/08/2022 10:07 [facility] Performing Lab [facility] 08/08/2022 10:07 [facility] Scanned Images 08/08/2022 10:07 [facility] Tissue ENTIRE GALLBLADDER / Unknown 08/05/2022 10:40 EST 08/06/2022 7:55 EST Zeke Romero MD PATHOLOGY ORDERABLES [facility] [address] [place] [address] documented in this encounter Visit Diagnoses Diagnosis Encounter for other general examination documented in this encounter Care Teams Capacitor Tester Relationship Specialty Start Date End Date Denise Hooker APRN [address] [place] [address] PCP - General 09/13/18 documented as of this encounter
--- OUTSIDE RECORDS SUMMARY | 2024-05-06 04:52 | XMS_ITS | Encounter Summary ---
Author Organization [facility] Address [address] [place] [address] Care Team Providers Care Production Hand Name Role Phone Denise Hooker APRN Primary Care Provider [phone] Reason for Referral * Referral (Routine/Next Available) - Authorized Specialty Diagnoses / Procedures Referred By Contact Referred To Contact Gastroenterology and Hepatology Diagnoses NAFLD (nonalcoholic fatty liver disease) Elevated liver enzymes Procedures VIBRATION CONTROLLED TRANSIENT ELASTOGRAPHY (VCTE) [place] LIVER ELASTOGRAPHY W/O IMAG W/I&R Kera Tatum PA-C [address] [phone] Shaq Phan MD PhD [address] [phone] Referral ID Status Reason Start Date Expiration Date V isits Requested Visits Authorized [id number] Authorized 12/07/2022 1 1 Reason for Visit * Reason Comments New Patient Visit Fatty liver * Referral (Routine) - Receiving Office to Obtain Authorization Specialty Diagnoses / Procedures Referred By Contact Referred To Contact Gastroenterology and Hepatology Diagnoses Fatty liver disease, nonalcoholic Elevated LFTs Denise Hooker APRN 26 [facility] [address] [place] [address] [facility] [address] [place] [address] Referral ID Status Reason Start Date Expiration Date Visits Requested Visits Authorized [id number] Receiving Office to Obtain Authorization 1 1 Encounter Details Date Type Department Care Team (Late st Contact Info) Description 12/01/2022 14:00 EDT Office Visit [facility] Gastroenterology - [facility] [address] [place] [address] Kera Tatum PA-C [address] [place] [address], [address] [place] [address] NAFLD (nonalcoholic fatty liver disease) [...] he had undergone work up for dx MS had blood work done and imaging that showed elevated LFTs and was told he has fatty liver. Following last visit with Dr. Mackey, patient had fibroscan done that was notable for F3, 12.6 kPa (08/2019). Patient endorses he had moved to [place] after that time [facility] but hehas recently moved back with plans of staying in [place] and reestablishing care. Most recent imaging: [place] [...] fibrosis. Since then patient had moved to [place] and had undergone care at [place]. He has movedback with intention of re- [...] Info) Description 08/08/2024 13:00 EST Office Visit [facility] Gastroenterology - [facility] [address] [place], [place] [address] Kera Tatum PA-C 111 [facility], [address] [place] [address] 11/15/2024 18:30 EDT Office Visit [facility] Cardiology - [address] [place], [place] [phone] Davian Almonte MD [address] [place], [place] [phone] Scheduled Orders Name Type Priority Associated Diagnoses Orde r Schedule VIBRATION CONTROLLED TRANSIENT ELASTOGRAPHY (VCTE) GI Routine NAFLD (nonalcoholic fatty liver disease) Elevated liver enzymes Ordered: 12/07/2022 documented as of this encounter Results * HEPATITIS B CORE ANTIBODY (TOTAL) (12/01/2022 14:59 EDT) Hepatitis B Core Ab, Total Negative Negative 12/02/2022 10:03 EDT [facility] Blood VENOUS BLOOD / Unknown Venipuncture / Unknown 12/01/2022 14:59 EDT 12/01/2022 15:30 EDT Kera Tatum PA-C CHEMISTRY & B LOOD GAS ORDERABLES [facility] [address] [place] [address] * HEPATITIS B SURFACE ANTIGEN (12/01/2022 14:59 EDT) Hep B Surface Ag Negative Negative 12/02/2022 9:19 EDT [facility] Blood VENOUS BLOOD / Unknown Venipuncture / Unknown 12/01/2022 14:59 EDT 12/01/2022 15:30 EDT Kera ALCARAZ-Pradeep CHEMISTRY & B LOOD GAS ORDERABLES Performing Organization Address [facility]/ZIP Co de Phone Number [facility] [address] [place] [address] * HEPATITIS C AB W REFLEX TO HCV RNA BY PCR (12/01/2022 14:59 EDT) Pathologist [facility] Hep C Antibody Negative Negative 12/02/2022 10:09 EDT [facility] Blood VENOUS BLOOD / Unknown Venipuncture / Unknown 12/01/2022 14:59 EDT 12/01/2022 15:31 EDT Kera ALCARAZ-C CHEMISTRY & B LOOD GAS ORDERABLES Performing Organization Address [facility] de Phone Number [facility] [address] [place] [address] * PROTIME (12/01/2022 14:59 EDT) Pathologist [facility] I.N.R. 1.0 0.9 - 1.1 Ratio 12/01/2022 16:05 EDT [facility] Pro Time 11.3 9.7 - 12.8 secs 12/01/2022 16:05 EDT [facility] Blood VENOUS BLOOD / Unknown Venipuncture / Unknown 12/01/2022 14:59 EDT 12/01/2022 15:31 EDT Narrative [facility] - 12/01/2022 16:05 EDT Moderate Intensity Coumadin INR = 2.0-3.0 Adjustments in anticoagulant therapy dose should be based on the INR and NOT on the Protime. Kera Tatum PA-C HEMATOLOGY & PF4 ORDERABLES Performing Organization Address [facility] Co de Phone Number [facility] [address] [place] [address] * (ABNORMAL) COMPREHENSIVE METABOLIC PANEL (CMP) (12/01/2022 14:59 EDT) Sodium 139 136 - 145 mmol/L 12/01/2022 16:02 [facility] Potassium 4.6 3.5 - 5.0 mmol/L 12/01/2022 16:02 [facility] Chloride 100 96 - 110 mmol/L 12/01/2022 16:02 [facility] CO2 Total 28 22 - 32 mmol/L 12/01/2022 16:02 [facility] Glucose 221(H) 70 - 100 mg/dl 12/01/2022 16:02 [facility] BUN 16 10 - 26 mg/dL 12/01/2022 16:02 [facility] Creatinine 0.95 0.66 - 1.25 mg/dL 12/01/2022 16:02 [facility] eGFR 87 >60 mL/min/1.7 3m2 12/01/2022 16:02 [facility] Total Protein 7.6 6.3 - 8.2 g/dL 12/01/2022 16:02 [facility] Albumin 4.8 3.4 - 4.9 g/dL 12/01/2022 16:02 [facility] Alkaline Phosphatase 91 38 - 126 U/L 12/01/2022 16:02 [facility] AST 38 15 - 46 U/L 12/01/2022 16:02 [facility] ALT 70(H) <50 U/L 12/01/2022 16:02 [facility] Bilirubin, Total <0.5 <1.4 mg/dL 12/02/19 16:02 [facility] Calcium 9.3 8.5 - 10.5 mg/dL 12/01/2022 16:02 [facility] Albumin/Globulin Ratio 1.7 1.0 - 2.5 12/01/2022 16:02 [facility] Anion Gap 11 5 - 14 mmol/L 12/01/2022 16:02 [facility] Blood VENOUS BLOOD / Unknown Venipuncture / Unknown 12/01/2022 14:59 EDT 12/01/2022 15:31 EDT Kera Tatum PA-C CHEMISTRY & B LOOD GAS ORDERABLES Performing Organization Address City/State/[facility] Co de Phone Number [facility] [address] [place] [address] * COMPLETE BLOOD COUNT (12/01/2022 14:59 EDT) WBC 7.90 4.00 - 10.40 K/cmm 12/01/2022 15:45 EDT [facility] RBC 5.30 4.36 - 5.78 M/cmm 12/01/2022 15:45 T [facility] Hemoglobin 15.1 13.8 - 17.3 gm/dL 12/01/2022 15:45 EDT [facility] HCT 45.6 39.5 - 50.2 % 12/01/2022 15:45 T [facility] MCV 86 81 - 95 fl 12/01/2022 15:45 EDT [facility] MCH 28.5 27.6 - 33.0 pg 12/01/2022 15:45 T [facility] MCHC 33.1 32.8 - 36.4 gm/dL 12/01/2022 15:45 T [facility] RDW-CV 13.4 <14.2 % 12/01/2022 15:45 T [facility] RDW-SD 42.0 <46.0 fl 12/01/2022 15:45 T [facility] PLT 268 141 - 377 K/cmm 12/01/2022 15:45 T [facility] MPV 10.4 9.5 - 12.7 fl 12/01/2022 15:45 [facility] Blood VENOUS BLOOD / Unknown Venipuncture / Unknown 12/01/2022 14:59 EDT 12/01/2022 15:30 EDT Kera Tatum PA-C HEMATOLOGY & PF4 ORDERABLES [facility] [address] [place] [address] documented in this encounter Visit Diagnoses Diagnosis [...] 10/07/2022 added in this encounter Care Teams Production Hand Relationship Specialty Start Date End Date Denise Hooker APRN [address] [place] [address] PCP - General 09/13/18 documented as of this encounter
--- OUTSIDE RECORDS SUMMARY | 2024-05-06 04:52 | XMS_ITS | Encounter Summary ---
Author Organization [facility] Address [address] [place] [address] Care Team Providers Care Plant Physiologist Name Role Phone Denise Hooker JENNIFER Primary Care Provider [phone] [phone] Encounter Details Date Type Department Care Team ([facility] st Contact Info) Description 12/01/2022 15:00 EDT Phlebotomy Only [facility] ED Center 2 Phlebotomy [address] [place] [address] Picu Nurse, Acc Phlebotomy NAFLD (nonalcoholic fatty liver disease); [...] Visit [facility] Gastroenterology - [address] [id number] Kera Tatum PA-C 111 [facility], [address] [place] [phone] 11/15/2024 18:30 EDT Office Visit [facility] Cardiology - [address] [place] [address] Davian Almonte MD [address] [place], [place] [address] documented as of this encounter Procedures Procedure [...] Ab, Total Negative Negative 12/02/2022 10:03 EDT [facility] Blood VENOUS BLOOD / Unknown Venipuncture / Unknown 12/01/2022 14:59 EDT 12/01/2022 15:30 EDT Kera Tatum PA-C CHEMISTRY & B LOOD GAS ORDERABLES Performing Organization Address City/[facility]/ZIP Co de Phone Number [facility] [address] [place] [address] * HEPATITIS B SURFACE ANTIGEN (12/01/2022 14:59 EDT) Hep B Surface Ag Negative Negative 12/02/2022 9:19 EDT [facility] Blood VENOUS BLOOD / Unknown Venipuncture / Unknown 12/01/2022 14:59 EDT 12/01/2022 15:30 EDT Kera Tatum PA-C CHEMISTRY & B LOOD GAS ORDERABLES Performing Organization Address City/[facility]/ZIP Co de Phone Number [facility] [address] [place] [id number] * HEPATITIS C AB W REFLEX TO HCV RNA BY PCR (12/01/2022 14:59 EDT) Hep C Antibody Negative Negative 12/02/2022 10:09 EDT [facility] Blood VENOUS BLOOD / Unknown Venipuncture / Unknown 12/01/2022 14:59 EDT 12/01/2022 15:31 EDT Kera Tatum PA-C CHEMISTRY & B LOOD GAS ORDERABLES [facility] [address] [place] [address] * PROTIME (12/01/2022 14:59 EDT) Pathologist [facility] I.N.R. 1.0 0.9 - 1.1 Ratio 12/01/2022 16:05 [facility] Pro Time 11.3 9.7 - 12.8 secs 12/01/2022 16:05 [facility] Blood VENOUS BLOOD / Unknown Venipuncture / Unknown 12/01/2022 14:59 EDT 12/01/2022 15:31 EDT Narrative [facility] - 12/01/2022 16:05 EDT Moderate Intensity Coumadin INR = 2.0-3.0 Adjustments in anticoagulant therapy dose should be based on the INR and NOT on the Protime. Kera Tatum PA-C HEMATOLOGY & PF4 ORDERABLES Performing Organization Address City/State/[facility] Co de Phone Number [facility] [address] [place] [address] * (ABNORMAL) COMPREHENSIVE METABOLIC PANEL (CMP) (12/01/2022 14:59 EDT) [facility] Sodium 139 136 - 145 mmol/L 12/01/2022 16:02 [facility] Potassium 4.6 3.5 - 5.0 mmol/L 12/01/2022 16:02 [facility] Chloride 100 96 - 110 mmol/L 12/01/2022 16:02 [facility] CO2 Total 28 22 - 32 mmol/L 12/01/2022 16:02 [facility] Glucose 221(H) 70 - 100 mg/dl 12/01/2022 16:02 [facility] BUN 16 10 - 26 mg/dL 12/01/2022 16:02 [facility] Creatinine 0.95 0.66 - 1.25 mg/dL 12/01/2022 16:02 [facility] eGFR 87 >60 mL/min/1.7 3m2 12/01/2022 16:02 [facility] Total Protein 7.6 6.3 - 8.2 g/dL 12/01/2022 16:02 [facility] Albumin 4.8 3.4 - 4.9 g/dL 12/01/2022 16:02 [facility] Alkaline Phosphatase 91 38 - 126 U/L 12/01/2022 16:02 [facility] AST 38 15 - 46 U/L 12/01/2022 16:02 [facility] ALT 70(H) <50 U/L 12/01/2022 16:02 [facility] Bilirubin, Total <0.5 <1.4 mg/dL 12/02/19 16:02 [facility] Calcium 9.3 8.5 - 10.5 mg/dL 12/01/2022 16:02 [facility] Albumin/Globulin Ratio 1.7 1.0 - 2.5 12/01/2022 16:02 [facility] Anion Gap 11 5 - 14 mmol/L 12/01/2022 16:02 [facility] Blood VENOUS BLOOD / Unknown Venipuncture / Unknown 12/01/2022 14:59 EDT 12/01/2022 15:31 EDT Kera Tatum PA-C CHEMISTRY & B LOOD GAS ORDERABLES [facility] [address] [place] [address] * COMPLETE BLOOD COUNT (12/01/2022 14:59 EDT) WBC 7.90 4.00 - 10.40 K/cmm 12/01/2022 15:45 T [facility] RBC 5.30 4.36 - 5.78 M/cmm 12/01/2022 15:45 [facility] Hemoglobin 15.1 13.8 - 17.3 gm/dL 12/01/2022 15:45 T [facility] HCT 45.6 39.5 - 50.2 % 12/01/2022 15:45 EDT [facility] MCV 86 81 - 95 fl 12/01/2022 15:45 EDT [facility] MCH 28.5 27.6 - 33.0 pg 12/01/2022 15:45 EDT [facility] MCHC 33.1 32.8 - 36.4 gm/dL 12/01/2022 15:45 EDT [facility] RDW-CV 13.4 <14.2 % 12/01/2022 15:45 EDT [facility] RDW-SD 42.0 <46.0 fl 12/01/2022 15:45 EDT [facility] PLT 268 141 - 377 K/cmm 12/01/2022 15:45 EDT [facility] MPV 10.4 9.5 - 12.7 fl 12/01/2022 15:45 EDT [facility] Blood VENOUS BLOOD / Unknown Venipuncture / Unknown 12/01/2022 14:59 EDT 12/01/2022 15:30 EDT Kera Tatum PA-C HEMATOLOGY & PF4 ORDERABLES [facility] [address] [place] [address] documented in this encounter Visit Diagnoses Diagnosis NAFLD (nonalcoholic fatty liver disease) Other chronic nonalcoholic liver disease Elevated liver enzymes Other nonspecific abnormal serum enzyme levels documented in this encounter Care Teams Plant Physiologist Relationship Specialty Start Date End Date Denise Hooker APRN [address] [place] [address] PCP - General 09/13/18 documented as of this encounter
--- OUTSIDE RECORDS SUMMARY | 2024-05-06 04:52 | XMS_ITS | Encounter Summary ---
Author Organization [facility] Address [address] [place] [address] Care Team Providers Care Process Consultant Name Role Phone Denise Hooker JENNIFER Primary Care Provider [phone] Reason for Visit * Reason Comments Follow-up Encounter Details Date Type Department Care Team ([facility] Contact Info) Description 04/04/2020 13:[address] [facility] Cardiology - [address] [place] [address] Kitty Medina MD [address] [place] [address] [place], [place] [phone] Essential hypertension (Primary Dx); NSVT (nonsustained ventricular tachycardia) (HCC-CMS); Atherosclerosis of coronary artery without angina pectoris, unspecified vessel or lesion type, unspecified whether [place] or transplanted heart Social History Tobacco Use [...] RCA; 2004 stents X2 ??? Diabetes mellitus ([facility]) oral agents ??? Diverticulitis ??? Hyperlipidemia ??? Hypertension ??? SD (myocardial infarction) ([facility]) 1992, 2003 ??? Recurrent infections rt foot 5th toe Patient Active Problem List Diagnosis Date Noted ??? Type 2 diabetes mellitus with vascular disease ([facility]) 03/19/2020 Priority: Medium ??? NSVT (nonsustained ventricular tachycardia) ([facility]) 03/19/2020 Priority: Medium ??? Chest pain 12/03/2018 Priority: Medium ??? Depression 12/03/2018 Priority: Medium ??? Coronary atherosclerosis 09/07/2009 ??? Hyperlipidemia with target LDL less than 70 09/07/2009 ??? Hypertensive disorder 09/07/2009 ??? Diabetes mellitus ([facility]) 09/07/2009 Family History Problem Relation Age [...] Description 08/08/2024 13:[address] [facility] Gastroenterology - [address] [address] Kera Tatum PA-C 111 [facility], [facility], [address] [place] [phone] 11/15/2024 18:[address] [facility] Cardiology - [address] [place] [address] Davian Almonte MD [address] [place], [place] [address] documented as of this encounter Visit Diagnoses Diagnosis Essential hypertension- Primary Unspecified essential hypertension NSVT (nonsustained ventricular tachycardia) ([facility]) Paroxysmal ventricular tachycardia Atherosclerosis of coronary artery without angina pectoris, unspecified vessel or lesion type, unspecified whether [place] or transplanted heart documented in this encounter Care Teams Process Consultant Relationship Specialty Start Date End Date Denise Hooker APRN [address] [place] [address] PCP - General 09/13/18 documented as of this encounter
--- OUTSIDE RECORDS SUMMARY | 2024-05-06 04:52 | XMS_ITS | Encounter Summary ---
Author Organization [facility] Address [address] [place] [address] Care Team Providers Care Therapist Name Role Phone Denise Hooker JENNIFER Primary Care Provider [phone] [phone] Reason for Visit * Reason Comments Procedure Fatty liver * Referral (Routine/Next Available) - Authorized Specialty Diagnoses / Procedures Referred By Contact Referred To Contact Gastroenterology and Hepatology Diagnoses NAFLD (nonalcoholic fatty liver disease) Elevated liver enzymes Procedures VIBRATION CONTROLLED TRANSIENT ELASTOGRAPHY (VCTE) ID LIVER ELASTOGRAPHY W/O IMAG W/I&R Kera Tatum PA-C [address] [place] [phone] Shaq Phan MD PhD [address] [place] [phone] Referral ID Status Reason Start Date Expiration Date V isits Requested Visits Authorized [id number] Authorized 12/07/2022 1 1 Encounter Details Date Type Department Care Team ([facility] Contact Info) Description 03/25/2023 14:30 EDT Procedure visit [facility] Gastroenterology - [address] [address] Shaq Phan MD PhD [address] [place] [phone] NAFLD (nonalcoholic fatty liver disease) (Primary Dx) [...] Phan MD PhD - 03/25/2023 1430 EDT [facility] Hepatology Fibrosis Assessment Patient: Raul Trujillo : 1955 Keg Varnisher: Shaq Phan MD Referring Physician: Kera Godinez APRN, PA-C Disease diagnosis: Metabolic dysfunction-associated steatotic liver disease (MASLD) Procedure: Vibration Controlled Transient Elastography (VCTE) or Fibroscan [place]er Protocol: Patient's identity, procedure and site were [...] PhD Cc: AUNDREA Grande APRN [address] [facility] [id number] documented in this encounter Plan of Treatment Upcoming Encounters Date Type Department Care Team (Late st Contact Info) Description 08/08/2024 13:00 EST Office Visit [facility] Gastroenterology - [address] [address] Kera Tatum PA-C 111 [facility], [address] [place] [phone] 11/15/2024 18:30 EDT Office Visit [facility] Cardiology - [address] [place] [address] Davina Almonte MD [address] [place], [place] [address] Scheduled Orders Name Type Priority Associated Diagnoses Orde r Schedule VIBRATION CONTROLLED TRANSIENT ELASTOGRAPHY (VCTE) GI Routine NAFLD (nonalcoholic fatty liver disease) Elevated liver enzymes Ordered: 12/07/2022 documented as of this encounter Visit Diagnoses Diagnosis NAFLD (nonalcoholic fatty liver disease)- Primary Other chronic nonalcoholic liver disease documented in this encounter Care Teams Therapist Relationship Specialty Start Date End Date Denise Hooker APRN [address] [place] [address] PCP - General 09/13/18 documented as of this encounter
--- OUTSIDE RECORDS SUMMARY | 2024-05-06 04:52 | XMS_ITS | Encounter Summary ---
Author Organization [facility] Address [address] [place] [address] Care Team Providers Care Box Office Attendant Name Role Phone MorroLilia galvanhryn Jemma RODRIGUEZ Primary Care Provider [phone] Reason for Referral * Cardiology (Routine/Next Available) - Closed Specialty Diagnoses / Procedures Referred By Claire jacques Referred To Contact Cardiology Diagnoses Ventricular tachycardia ([facility]) Procedures CARDIAC EVENT MONITOR Jeison Pickett DO [address] [place], [place] [id number] [facility] Cardiology [address] [place] [address] [place] [address] Referral ID Status Reason Start Date Expiration Date Visits Re quested Visits Authorized [id number] Closed 03/22/2020 1 1 Reason for Visit * Auth/Cert Specialty Diagnoses / Procedures Referred By Claire jacques Referred To Contact Diagnoses NSTEMI (non-ST elevated myocardial infarction) ([facility]) NSTEMI Referral ID Status Reason Start Date Expiration Date Visits Re quested Visits Authorized [id number] 1 1 Encounter Details Date Type Department Care Team (Late st Contact Info) Description 03/18/2020 23:05 EDT - 03/22/2020 16:22 EDT Hospital Encounter [facility] Cardiac Unit [address] [place], [place] [id number] Kristi Cruz MD 111 [facility] 1 [place] [address] Robinson Lan Sa, MD [address] [facility] [address] [place] [address] Shantell Manuel MD [address] [place] [address] Ventricular tachycardia (HCC-CMS) (Primary Dx); Essential hypertension; NSTEMI (non-ST elevated myocardial infarction) (HCC-CMS); Type 2 diabetes mellitus with vascular disease (HCC-CMS); NSVT (nonsustained ventricular tachycardia) (HCC-CMS); Atherosclerosis of coronary artery without angina pectoris, unspecified vessel or lesion type, unspecified whether chitina or transplanted heart; Other specified disorders of [...] Problems and Procedures Admitting Diagnosis: Ventricular tachycardia ([facility]) Final Hospital Diagnosis: NSTEMI, nonsustained ventricular tachycardia Additional Problems Managed in the Hospital Active Hospital Problems Diagnosis Date Noted ??? Type 2 diabetes mellitus with vascular disease ([facility]) 03/19/2020 ??? NSVT (nonsustained ventricular tachycardia) ([facility]) 03/19/2020 ??? Hypertensive disorder 09/07/2009 ??? Diabetes mellitus ([facility]) 09/07/2009 Oral agent - metformin Resolved Hospital Problems Diagnosis Date Noted Date Resolved ??? *NSTEMI (non-ST elevated myocardial infarction) ([facility]) 03/19/2020 03/22/2020 Principal Procedure: Left heart catheterization Date: 03/19/20 Secondary Procedures: Not applicable Hospital Course Claudia Batista is a 64-year-old man with a history of CAD (OR x2, stents x9), HTN, and HLD who was transferred from [facility] on 03/19 for management of NSTEMI. Left heart catheterization was performed and confirmed patent stents and mild coronary artery disease unchanged from prior. He was managed medically with Isordil 5 mg TID, which he tolerated well, inaddition to his [employer] amlodipine, lisinopril, and metoprolol. This was subsequently [...] 13:00 Office Visit with Letty Mackey MD [facility] Gastroenterology [facility] (--) [address] [facility] [address] Follow-up appointments and procedures Amb Consult/Follow Up [...] Self Nursing Home documented in this encounter Progress Notes * [...] history. Presents as a direct transfer from [facility] for further work-up of a NSTEMI. [...] daily - ticagrelor 90mg BID - continue [employer] rosuvastatin 40 mg daily NSVT: noted on telemetry overnight following admission. Asymptomatic (pt sleeping). No recurrence. Cardiac MRI obtained 03/21 showing a small infarct in the basilar inferior wall of the LV. - EP consulted, recommendations pending CAD/HTN/HLD -Continue aspirin 81 mg daily -Continue [employer] amlodipine 10 mg -Continue lisinopril 5 mg daily -Continue metoprolol XL 150 mg daily ?? Type 2 Diabetes: A1c 7.4% on admission, [employer] insulin regimen 40 units glargine twice daily. - Lantus held last night, currently NPO with elevated AM glucose - When PO, resume Lantus 20U BID + consistent carb diet - POCT Glc Q6 while NPO then before meals and qhs - Sliding scale with aspart Q6 while NPO - Continue to hold [employer] metformin, dapagliflozin, exenatide ?? Depression/sleep -Continue [employer] sertraline 50 mg daily -Continue [employer] trazodone 50 mg daily ?? Diet: NPO [...] history. Presents as a direct transfer from [facility] for further work-up of a NSTEMI. [...] daily - ticagrelor 90mg BID - continue [employer] rosuvastatin 40 mg daily - replete if Mg <2 or K <4 NSVT: noted on telemetry overnight following admission. Asymptomatic (pt sleeping). No recurrence. - EP consulted - Cardiac MRI - scheduled for today at 1300 - Depending on MRI findings, either d/c with meds + monitor, or consider ICD CAD/HTN/HLD -Continue aspirin 81 mg daily -Continue [employer] amlodipine 10 mg -Continue lisinopril 5 mg daily -Continue metoprolol XL 150 mg daily ?? Type 2 Diabetes: A1c 7.4% on admission, [employer] insulin regimen 40 units glargine twice daily. - Currently normoglycemic and NPO, Lantus held - When PO, resume Lantus 20U BID + consistent carb diet - POCT Glc Q6 while NPO then before meals and qhs - Sliding scale with aspart Q6 while NPO - Continue to hold [employer] metformin, dapagliflozin, exenatide ?? Depression/sleep -Continue [employer] sertraline 50 mg daily -Continue [employer] trazodone 50 mg daily ?? Diet: NPO [...] history. Presents as a direct transfer from [facility] for further work-up of a NSTEMI. [...] needed, thus far has not - continue [employer] rosuvastatin 40 mg daily - replete if Mg <2 or K <4 - Goal SBP <140 and HR <70 NSVT: noted on telemetry overnight following admission. Asymptomatic (pt sleeping). - EP consulted - Cardiac MRI - ordered, to be performed tomorrow CAD/HTN/HLD -Continue aspirin 81 mg daily -Continue [employer] amlodipine 10 mg -Continue lisinopril 5 mg daily -Continue metoprolol XL 150 mg daily ?? Type 2 Diabetes: A1c 7.4% on admission, [employer] insulin regimen 40 units glargine twice daily. - Currently NPO and receiving Lantus 20U BID - Continue to hold [employer] metformin, dapagliflozin, exenatide - Consistent carbohydrate diet when eating - POCT Glc Q6 while NPO then before meals and qhs -Sliding scale with aspart Q6 while NPO ?? Depression/sleep -Continue [employer] sertraline 50 mg daily -Continue [employer] trazodone 50 mg daily ?? Diet: NPO [...] 03/21/2020 7:00 * Juli Leearet - 03/19/2020 0430 EDT Initial Case Management/Social Work Assessment and Discharge Plan/Readmission Risk Assessment REASON FOR ADMISSION: NSTEMI (non-ST elevated myocardial infarction) ([facility]) Patient understands reason for admission: Yes PATIENT CONTACT INFO VERIFIED: Yes(Sister kala Tirado [phone]) PATIENT ADDRESS VERIFIED: Yes LIVING ARRANGEMENTS AND [...] Chart: Yes, previous copy on file @ [facility] DIRECTIVES FOR FINANCES: TRANSPORTATION: Transportation: Family CULTURAL, SABIANIST and/or LANGUAGE factors affecting health care/discharge planning: Spiritual/Cultural Requests: None Any factors affecting health care/discharge planning?: No Insurance in Place: Yes Medical Insurance: Yes Type of insurance: Commercial insurance Commercial coverage: [employer] Referred to patient financial services: No [...] Health Services: None DME Provider: None Pharmacy: [facility] [address] [facility] [address] [facility] [address] [address] [address] - [facility] [address] [facility] [address] [facility] [address] [facility] [place], [place] - [address] [facility] [address] [facility] [address] [facility] [address] [facility] [place], [place] - [address] [facility] [address] [facility] [address] Home Health: None Other: POST HOSPITAL TRANSITION PLAN: Case management will continue to follow through transition to discharge. Patient's family can provide transportation. Patient is awaiting [facility] and treatment plan. No needs are identified at this time. Patient has Meds to Beds. Jo Lee record changer tester #[id number] * Bettie Feliz MD - 03/19/2020 0632 EDT Tapper Balance Wheel Screw Hole Addendum to H&P Mr. Claudia Batista is a 64YOM with PMHx pertinent for HTN, HLD, DMII and CAD (s/p multiple PCIs w/ stenting of LAS and RCA; last PCI to mid LAD 01/2016; LHC w/o flow limiting dx in 11/2018) who presents in transfer from [facility] after episode of jaw pain. This AM after cutting wood and noted the onset of intermittent episodes of achy bilateral jaw pain which improved w/ SL nitrox2 but quickly returned. During this he sought medical attention. At [facility] initial trop was negative with second troponin [...] have answered the patient's (or responsible alliance party's)questions. To the best of my knowledge, the [...] history. Presents as a direct transfer from [facility] for further work-up of a NSTEMI. [...] EMS to present to emergency department at [facility]. Patient reports that this jaw pain [...] RCA; 2003 stents X2 ??? Diabetes mellitus ([facility]) oral agents ??? Diverticulitis ??? Hyperlipidemia ??? Hypertension ??? OR (myocardial infarction) ([facility]) 1992, 2003 ??? Recurrent infections rt [...] history. Presents as a direct transfer from [facility] for further work-up of a NSTEMI. [...] gtt - supplemental O2 if needed -Continue [employer] rosuvastatin 40 mg daily - NPO at midnight for potential intervention ([facility]) or other testing if needed - ordered lipid profile and A1c - echo ordered - replete if Mg <2 or K <4 - Goal SBP <140 and HR <70 CAD/HTN/HLD -Continue aspirin 81 mg daily -Continue [employer] amlodipine 10 mg -Continue lisinopril 5 mg daily -Continue metoprolol XL 150 mg daily Type 2 Diabetes: A1c ordered, [employer] insulin regimen 40 units glargine twice daily -Decrease [employer] insulin regimen to 30 units twice daily -Hold [employer] metformin 1000 twice daily -Hold [employer] dapagliflozin 5 mg daily -Hold [employer] exenatide microspheres - Consistent carbohydrate diet when eating - POCT Glc Q6 while NPO then before meals and qhs -Sliding scale with aspart Q6 while NPO Depression/sleep -Continue [employer] sertraline 50 mg daily -Continue [employer] trazodone 50 mg daily Diet: NPO VTE [...] blanton changes. I would add the following blantno elements of the patient's history, physical exam [...] * Nash Herron Jr., MD - 03/19/2020 9339 EDT Cardiovascular Catheterization Laboratory Preliminary Report -- [...] artery Procedure: He was brought to [facility] Cardiac Catheterization Laboratory for the procedure: [...] 15:53 * Shantell Manuel MD - 03/19/2020 1711 EDT Cardiology Progress note Service Date: 03/19/2020 [...] history. Presents as a direct transfer from [facility] for further work-up of a NSTEMI. [...] gtt - supplemental O2 if needed -Continue [employer] rosuvastatin 40 mg daily - NPO at midnight for potential intervention ([facility]) or other testing if needed - ordered lipid profile and A1c - echo ordered - replete if Mg <2 or K <4 - Goal SBP <140 and HR <70 ?? CAD/HTN/HLD -Continue aspirin 81 mg daily -Continue [employer] amlodipine 10 mg -Continue lisinopril 5 mg daily -Continue metoprolol XL 150 mg daily ?? Type 2 Diabetes: A1c ordered, [employer] insulin regimen 40 units glargine twice daily -Decrease [employer] insulin regimen to 30 units twice daily -Hold [employer] metformin 1000 twice daily -Hold [employer] dapagliflozin 5 mg daily -Hold [employer] exenatide microspheres - Consistent carbohydrate diet when eating - POCT Glc Q6 while NPO then before meals and qhs -Sliding scale with aspart Q6 while NPO ?? Depression/sleep -Continue [employer] sertraline 50 mg daily -Continue [employer] trazodone 50 mg daily ?? Diet: NPO [...] PCI's, DM2, HTN, HLD admitted 03/19 from [facility] for NSTEMI. Telemetry demonstrated ~40s of asymptomatic [...] RCA; 2003 stents X2 ??? Diabetes mellitus ([facility]) oral agents ??? Diverticulitis ??? Hyperlipidemia ??? Hypertension ??? OR (myocardial infarction) ([facility]) 1992, 2003 ??? Recurrent infections rt [...] file Gets together: Not on file Attends orthodox service: Not on file Active member of [...] PCI's, DM2, HTN, HLD admitted 03/19 from [facility] for NSTEMI. Telemetry demonstrated asymptomatic [place] 03/19. [...] Case discussed with Dr. Thomas Lopez MD Tapper Balance Wheel Screw Hole, PGY-5 Pager [phone] Associated attestation - Bebo Guzman MD - [...] care of pt at 2300, pt s/p [facility] RRA approach with no interventions. Tele- SR [...] Jessie Mart RN - 03/20/2020 0212 EDT [id number] RdwinnieClaudia 64 y.o. male Length of stay: [...] 03/19/2020 0040 EDT Data: Patient admitted to [id number] for NSTEMI. On tele patient in first [...] 13:00 EST Office Visit [facility] Gastroenterology - [address] [id number] Kera Tatum PA-C [address] [facility], [address] [place] [phone] 11/15/2024 18:30 EDT Office Visit [facility] Cardiology - [place] [address] Davian Almonte MD [address] [place], [place] [id number] documented as of this encounter Procedures Procedure [...] 8:48 EDT) 04/17/2020 8:48 EDT Scan 2 Legal Analyst PROCEDURE/MINOR MERCEDES GICAL ORDERABLES * ECG REPORT - SCANNED (03/27/2020 10:21 EDT) 03/27/2020 10:2 1 EDT Scan 2 Legal Analyst PROCEDURE/MINOR MERCEDES GICAL ORDERABLES * ECG REPORT - SCANNED (03/27/2020 10:21 EDT) 03/27/2020 10:2 1 EDT Scan 2 Legal Analyst PROCEDURE/MINOR MERCEDES GICAL ORDERABLES * (ABNORMAL) POCT GLUCOSE, INTERFACED (03/22/2020 11:18 EDT) Glucose, POC 135(H) 70 - 100 mg/dL 03/22/2020 11:23 EDT [facility] denitrator operator ID [id number] 03/22/2020 11:23 EDT [facility] SERVICES HN LAB POC COMMENT (GLUCOSE) Test Performed by Nursing Services 03/22/2020 11:23 EDT [facility] Blood CAPILLARY BLOOD / Unknown 03/22/2020 11:18 EDT 03/22/2020 11:23 EDT Joesph Wesley MD POINT OF CARE TEST O RDERABLES [facility] [address] [place] [address] * (ABNORMAL) POCT GLUCOSE, INTERFACED (03/22/2020 5:55 EDT) Glucose, POC 131(H) 70 - 100 mg/dL 03/22/2020 5:55 EDT [facility] denitrator operator ID [id number] 03/22/2020 5:55 EDT [facility] SERVICES HN LAB POC COMMENT (GLUCOSE) Test Performed by Nursing Services 03/22/2020 5:55 EDT [facility] Blood CAPILLARY BLOOD / Unknown 03/22/2020 5:55 EDT 03/22/2020 5:55 EDT Joesph Wesley MD POINT OF CARE TEST O RDERABLES Performing Organization Address City/[facility]/ZIP Co de Phone Number [facility] [address] [place] [address] * POCT GLUCOSE, INTERFACED (03/21/2020 20:11 EDT) Glucose, POC 94 70 - 100 mg/dL 03/21/2020 20:12 EDT [facility] denitrator operator ID [id number] 03/21/2020 20:12 EDT [facility] HN LAB POC COMMENT (GLUCOSE) Test Performed by Nursing Services 03/21/2020 20:12 EDT [facility] Blood CAPILLARY BLOOD / Unknown 03/21/2020 20:11 EDT 03/21/2020 20:12 EDT Joesph Wesley MD POINT OF CARE TEST O RDERABLES [facility] [address] [place] [address] * (ABNORMAL) POCT GLUCOSE, INTERFACED (03/21/2020 17:21 EDT) Glucose, POC 199(H) 70 - 100 mg/dL 03/21/2020 17:22 EDT [facility] denitrator operator ID [id number] 03/21/2020 17:22 EDT [facility] SERVICES HN LAB POC COMMENT (GLUCOSE) Test Performed by Nursing Services 03/21/2020 17:22 EDT [facility] Blood CAPILLARY BLOOD / Unknown 03/21/2020 17:21 EDT 03/21/2020 17:22 EDT Joesph Wesley MD POINT OF CARE TEST O RDERABLES [facility] [address] [place] [address] * MR CARDIAC W WO CONTRAST (03/21/2020 [...] Minimal hypokinesis inferior wall. Mid heart: normal. Ripton: normal. The left ventricular chamber is normal [...] Minimal hypokinesis inferior wall. Mid heart: normal. Ripton: normal. The left ventricular chamber is normal [...] andagree with the findings. Jeison Pickett DO [facility] MRI ORDERABLES * XR ORBITS FOR FOREIGN [...] air cells are clear. Jeison Pickett DO [facility] DIAGNOSTIC IMAGI NG ORDERABLES * (ABNORMAL) POCT GLUCOSE, INTERFACED (03/21/2020 12:03 EDT) Glucose, POC 138(H) 70 - 100 mg/dL 03/21/2020 12:18 EDT [facility] denitrator operator ID [id number] 03/21/2020 12:18 EDT [facility] HN LAB POC COMMENT (GLUCOSE) Test Performed by Nursing Services 03/21/2020 12:18 EDT [facility] Blood CAPILLARY BLOOD / Unknown 03/21/2020 12:03 EDT 03/21/2020 12:18 EDT Joesph Wesley MD POINT OF CARE TEST O RDERABLES [facility] SERVICES [address] [place] [address] * CREATININE (03/21/2020 5:59 EDT) Creatinine 0.71 0.66 - 1.25 mg/dL 03/21/2020 6:46 EDT [facility] eGFR 98 >60 mL/min/1.7 3m2 03/21/2020 6:46 EDT [facility] Comment:eGFR calculated rut yadav CKD-EPI equation for non- Americans. Multiply eGFR by 1.16 for patients. Blood VENOUS BLOOD / Unknown Venipuncture / Unknown 03/21/2020 5:59 EDT 03/21/2020 6:14 EDT Joesph Wesley MD CHEMISTRY & BLOOD GA S ORDERABLES Performing Organization Address City/[facility] Co de Phone Number [facility] [address] [place] [address] * ELECTROLYTES (03/21/2020 5:59 EDT) Sodium 141 136 - 145 mEq/L 03/21/2020 6:46 EDT [facility] Potassium 4.7 3.5 - 5.0 mEq/L 03/21/2020 6:46 T [facility] Chloride 100 96 - 110 mEq/L 03/21/2020 6:46 T [facility] CO2 Total 28 22 - 32 mEq/L 03/21/2020 6:46 EDT [facility] Blood VENOUS BLOOD / Unknown Venipuncture / Unknown 03/21/2020 5:59 EDT 03/21/2020 6:14 EDT Joesph Wesley MD CHEMISTRY & BLOOD GA S ORDERABLES [facility] [address] [place] [address] * COMPLETE BLOOD COUNT (03/21/2020 5:59 EDT) WBC 6.44 4.00 - 10.40 K/cmm 03/21/2020 6:25 EDT [facility] RBC 5.16 4.36 - 5.78 M/cmm 03/21/2020 6:25 EDT [facility] Hemoglobin 14.4 13.8 - 17.3 gm/dL 03/21/2020 6:25 EDT [facility] HCT 43.1 39.5 - 50.2 % 03/21/2020 6:25 [facility] MCV 84 81 - 95 fl 03/21/2020 6:25 T [facility] MCH 27.9 27.6 - 33.0 pg 03/21/2020 6:25 EDT [facility] MCHC 33.4 32.8 - 36.4 gm/dL 03/21/2020 6:25 [facility] RDW-CV 13.5 <14.2 % 03/21/2020 6:25 [facility] RDW-SD 41.6 <46.0 fl 03/21/2020 6:25 [facility] PLT 223 141 - 377 K/cmm 03/21/2020 6:25 [facility] MPV 10.1 9.5 - 12.7 fl 03/21/2020 6:25 T [facility] Blood VENOUS BLOOD / Unknown Venipuncture / Unknown 03/21/2020 5:59 EDT 03/21/2020 6:17 EDT Joesph Wesley MD HEMATOLOGY & PF4 ORD ERABLES [facility] [address] [place] [address] * (ABNORMAL) POCT GLUCOSE, INTERFACED (03/21/2020 5:58 EDT) Glucose, POC 117(H) 70 - 100 mg/dL 03/21/2020 5:59 EDT [facility] denitrator operator ID [id number] 03/21/2020 5:59 EDT [facility] HN LAB POC COMMENT (GLUCOSE) Test Performed by Nursing Services 03/21/2020 5:59 EDT [facility] Blood CAPILLARY BLOOD / Unknown 03/21/2020 5:58 EDT 03/21/2020 5:59 EDT Joesph Wesley MD POINT OF CARE TEST O RDERABLES [facility] [address] [place] [address] * (ABNORMAL) POCT GLUCOSE, INTERFACED (03/20/2020 20:23 EDT) Glucose, POC 109(H) 70 - 100 mg/dL 03/20/2020 20:38 EDT [facility] denitrator operator ID [id number] 03/20/2020 20:38 EDT [facility] HN LAB POC COMMENT (GLUCOSE) Test Performed by Nursing Services 03/20/2020 20:38 EDT [facility] Blood CAPILLARY BLOOD / Unknown 03/20/2020 20:23 EDT 03/20/2020 20:37 EDT Shantell Manuel MD POINT OF CARE TEST O RDERABLES [facility] [address] [place] [address] * (ABNORMAL) POCT GLUCOSE, INTERFACED (03/20/2020 16:53 EDT) Glucose, POC 119(H) 70 - 100 mg/dL 03/20/2020 16:59 EDT [facility] denitrator operator ID [id number] 03/20/2020 16:59 EDT [facility] HN LAB POC COMMENT (GLUCOSE) Test Performed by Nursing Services 03/20/2020 16:59 EDT [facility] Blood CAPILLARY BLOOD / Unknown 03/20/2020 16:53 EDT 03/20/2020 16:59 EDT Joesph Wesley MD POINT OF CARE TEST O RDERABLES [facility] [address] [place] [address] * (ABNORMAL) POCT GLUCOSE, INTERFACED (03/20/2020 12:23 EDT) Glucose, POC 115(H) 70 - 100 mg/dL 03/20/2020 12:24 EDT [facility] denitrator operator ID [id number] 03/20/2020 12:24 EDT [facility] SERVICES HN LAB POC COMMENT (GLUCOSE) Test Performed by Nursing Services 03/20/2020 12:24 EDT [facility] Blood CAPILLARY BLOOD / Unknown 03/20/2020 12:23 EDT 03/20/2020 12:24 EDT Joesph Wesley MD POINT OF CARE TEST O BEANERABENITO Performing Organization Address City/[facility] Hospital/ZIP Co de Phone Number [facility] [address] [place] [address] * (ABNORMAL) POCT GLUCOSE, INTERFACED (03/20/2020 6:00 EDT) Glucose, POC 103(H) 70 - 100 mg/dL 03/20/2020 6:04 EDT [facility]OR[facility] denitrator operator ID [id number] 03/20/2020 6:04 EDT [facility] HN LAB POC COMMENT (GLUCOSE) Test Performed by Nursing Services 03/20/2020 6:04 EDT [facility] Blood CAPILLARY BLOOD / Unknown 03/20/2020 6:00 EDT 03/20/2020 6:04 EDT Shantell Manuel MD POINT OF CARE TEST O RACHEL Performing Organization Address City/[facility]/ZIP Co de Phone Number [facility] [address] [place] [id number] * (ABNORMAL) POCT GLUCOSE, INTERFACED (03/20/2020 3:08 EDT) Glucose, POC 108(H) 70 - 100 mg/dL 03/20/2020 3:09 EDT [facility] denitrator operator ID [id number] 03/20/2020 3:09 EDT [facility] HN LAB POC COMMENT (GLUCOSE) Test Performed by Nursing Services 03/20/2020 3:09 EDT [facility] Blood CAPILLARY BLOOD / Unknown 03/20/2020 3:08 EDT 03/20/2020 3:09 EDT Joesph Wesley MD POINT OF CARE TEST O RDERABLES Performing Organization Address [facility] Co de Phone Number [facility] [address] [place] [address] * (ABNORMAL) TROPONIN I (03/20/2020 2:11 EDT) Troponin I (ng/mL) 0.140(H) <0.034 ng/mL 03/20/2020 2:54 EDT [facility] Blood VENOUS BLOOD / Unknown Venipuncture / Unknown 03/20/2020 2:11 EDT 03/20/2020 2:15 EDT Narrative [facility] - 03/20/2020 2:54 EDT The results of this assay can be falsely lowered due to the consumption of Biotin. Joesph Wesley MD CHEMISTRY & BLOOD GA S ORDERABLES Performing Organization Address [facility] Co de Phone Number [facility] [address] [place] [address] * CREATININE (03/20/2020 2:11 EDT) [facility] Creatinine 0.79 0.66 - 1.25 mg/dL 03/20/2020 2:40 EDT [facility] eGFR 94 >60 mL/min/1.7 3m2 03/20/2020 2:40 EDT [facility] Comment:eGFR calculated rut yadav CKD-EPI equation for non- Americans. Multiply eGFR by 1.16 for patients. Blood VENOUS BLOOD / Unknown Venipuncture / Unknown 03/20/2020 2:11 EDT 03/20/2020 2:15 EDT Joesph Wesley MD CHEMISTRY & BLOOD GA S ORDERABLES Performing Organization Address [facility] Co de Phone Number [facility] [address] [place] [address] * ELECTROLYTES (03/20/2020 2:11 EDT) Sodium 138 136 - 145 mEq/L 03/20/2020 2:40 EDT [facility] Potassium 4.3 3.5 - 5.0 mEq/L 03/20/2020 2:40 EDT [facility] Chloride 99 96 - 110 mEq/L 03/20/2020 2:40 EDT [facility] CO2 Total 30 22 - 32 mEq/L 03/20/2020 2:40 T [facility] Blood VENOUS BLOOD / Unknown Venipuncture / Unknown 03/20/2020 2:11 EDT 03/20/2020 2:15 EDT Joesph Wesley MD CHEMISTRY & BLOOD GA S ORDERABLES Performing Organization Address City/State/[facility] Co de Phone Number [facility] [address] [place] [address] * COMPLETE BLOOD COUNT (03/20/2020 2:11 EDT) WBC 8.07 4.00 - 10.40 K/cmm 03/20/2020 2:21 [facility] RBC 5.09 4.36 - 5.78 M/cmm 03/20/2020 2:21 [facility] Hemoglobin 14.1 13.8 - 17.3 gm/dL 03/20/2020 2:21 [facility] HCT 42.2 39.5 - 50.2 % 03/20/2020 2:21 [facility] MCV 83 81 - 95 fl 03/20/2020 2:21 [facility] MCH 27.7 27.6 - 33.0 pg 03/20/2020 2:21 [facility] MCHC 33.4 32.8 - 36.4 gm/dL 03/20/2020 2:21 [facility] RDW-CV 13.7 <14.2 % 03/20/2020 2:21 [facility] RDW-SD 41.1 <46.0 fl 03/20/2020 2:21 [facility] PLT 212 141 - 377 K/cmm 03/20/2020 2:21 [facility] MPV 10.2 9.5 - 12.7 fl 03/20/2020 2:21 EDT [facility] Blood VENOUS BLOOD / Unknown Venipuncture / Unknown 03/20/2020 2:11 EDT 03/20/2020 2:15 EDT Joesph Wesley MD HEMATOLOGY & PF4 ORD ERABLES Performing Organization Address [facility] Co de Phone Number [facility] [address] [place] [address] * POCT GLUCOSE, INTERFACED (03/19/2020 23:37 EDT) Glucose, POC 79 70 - 100 mg/dL 03/19/2020 23:42 EDT [facility] denitrator operator ID [id number] 03/19/2020 23:42 EDT [facility] HN LAB POC COMMENT (GLUCOSE) Test Performed by Nursing Services 03/19/2020 23:42 EDT [facility] Blood CAPILLARY BLOOD / Unknown 03/19/2020 23:37 EDT 03/19/2020 23:42 EDT Joesph Wesley MD POINT OF CARE TEST O RDERABENITO Performing Organization Address [facility] de Phone Number [facility] [address] [place] [address] * (ABNORMAL) POCT GLUCOSE, INTERFACED (03/19/2020 21:00 EDT) Glucose, POC 144(H) 70 - 100 mg/dL 03/19/2020 21:01 EDT [facility] denitrator operator ID [id number] 03/19/2020 21:01 EDT [facility] HN LAB POC COMMENT (GLUCOSE) Test Performed by Nursing Services 03/19/2020 21:01 EDT [facility] Blood CAPILLARY BLOOD / Unknown 03/19/2020 21:00 EDT 03/19/2020 21:00 EDT Shantell Manuel MD POINT OF CARE TEST O RDERABENITO Performing Organization Address City/[facility]/ZIP Co de Phone Number [facility] [address] [place] [address] * POCT GLUCOSE, INTERFACED (03/19/2020 18:00 EDT) Glucose, POC 81 70 - 100 mg/dL 03/19/2020 18:00 EDT [facility] denitrator operator ID [id number] 03/19/2020 18:00 EDT [facility] HN LAB POC COMMENT (GLUCOSE) Test Performed by Nursing Services 03/19/2020 18:00 EDT [facility] Blood CAPILLARY BLOOD / Unknown 03/19/2020 18:00 EDT 03/19/2020 18:00 EDT Joesph Wesley MD POINT OF CARE TEST O RDERABLES Performing Organization Address [facility] Co de Phone Number [facility] [address] [place] [address] * (ABNORMAL) TROPONIN I (03/19/2020 17:56 EDT) [facility] Troponin I (ng/mL) 0.151(H) <0.034 ng/mL 03/19/2020 18:53 EDT [facility] Blood VENOUS BLOOD / Unknown Venipuncture / Unknown 03/19/2020 17:56 EDT 03/19/2020 18:12 EDT Narrative [facility] - 03/19/2020 18:53 EDT The results of this assay can be falsely lowered due to the consumption of Biotin. Joesph Wesley MD CHEMISTRY & BLOOD GA S ORDERABLES Performing Organization Address [facility]/ZIP Co de Phone Number [facility] [address] [place] [address] * LEFT HEART CATH (03/19/2020 16:03 EDT) Anatomical Region Laterality Modality Leather Piece Inspector 03/19/2020 15:0 9 EDT Narrative 03/21/2020 10:30 EDT Cardiology [address] [place] [address] Catheterization Laboratory Study Patient: Claudia Batista ? Study Date: ?03/19/2020 ?Accession #: ? [id number] : ? 1955 Referring: Joesph Wesley Diagnostic [...] Right radial artery access. A 6 Fr/10/.021 [place] [employer] SLENDER ?? sheath was advanced into [...] OF CARE LV e', lateral 0.08 m/s [facility] POINT OF CARE Mitral deceleration time 183 ms [facility] POINT OF CARE LVOT area 3.5 cm2 [facility] POIN T OF CARE LVOT peak velocity, S 1.2 m/s [facility] POINT OF CARE LVOT VTI, S 23.9 cm [facility] PO INT OF CARE Stroke volume (SV), LVOT DP 83 ml [facility] POINT OF CARE LVOT mean velocity, S 0.7 m/s [facility] POINT OF CARE Mitral E-wave peak velocity 0.7 m/s [facility] POINT OF CARE Mitral A-wave peak velocity 0.9 m/s [facility] POINT OF CARE LV Systolic Volume Index 22.0 mL/m2 [facility] POINT OF CARE LV Diastolic Volume Index 54.0 mL/m2 [facility] POINT OF CARE LA Atrial Length A4C 5.2 cm [facility] POINT OF CARE LVOT ID, S 2.1 cm [facility] POI NT OF CARE EF 59 % [facility] POIN T OF CARE LA volume, ES, BP 53.0 ml [facility] POINT OF CARE LA volume/bsa, ES, A4C 17.0 ml/m2 [facility] POINT OF CARE LA volumes, ES, A4C 37.0 ml [facility] POINT OF CARE LA volume/bsa, ES, BP 24.0 ml/m2 [facility] POINT OF CARE LV Systolic Volume 48 mL [facility] POINT OF CARE LV Diastolic Volume 117 mL [facility] POINT OF CARE Stroke index (SV/bsa) LVOT [...] CARE Ascending aorta ID, a-p 3.1 cm [facility] POINT OF CARE LA Atrial Area A2C 15.5 cm2 [facility] POINT OF CARE LA/aortic root ratio 1.09 [facility] POINT OF CARE LV ID, ED, PLAX [...] color Doppler.The study was interpreted by [facility]. Pertinent images and [...] 70 - 100 mg/dL 03/19/2020 11:53 EDT [facility]OR[facility] denitrator operator ID [id number] 03/19/2020 11:53 EDT [facility] HN LAB POC COMMENT (GLUCOSE) Test Performed by Nursing Services 03/19/2020 11:53 EDT [facility] Blood CAPILLARY BLOOD / Unknown 03/19/2020 11:52 EDT 03/19/2020 11:53 EDT Joesph Wesley MD POINT OF CARE TEST O RDERABLES [facility] [address] [place] [address] * HEPARIN LEVEL - UNFRACTIONATED HEPARIN (03/19/2020 9:02 EDT) Heparin Level-UFH 0.36 Therapeutic Range: 0.30 - 0.70 IU/mL 03/19/2020 9:35 EDT [facility] Comment:Unfractionated hepar in therapeutic [...] & PF4 ORD ERABLES Performing Organization Address [facility]/ZIP Co de Phone Number [facility] [address] [place] [address] * (ABNORMAL) TROPONIN I (03/19/2020 9:01 EDT) Troponin I (ng/mL) 0.191(H) <0.034 ng/mL 03/19/2020 10:49 EDT [facility] Blood VENOUS BLOOD / Unknown Venipuncture / Unknown 03/19/2020 9:01 EDT 03/19/2020 10:09 EDT Narrative [facility] - 03/19/2020 10:49 EDT The results of this assay can be falsely lowered due to the consumption of Biotin. Joesph Wesley MD CHEMISTRY & BLOOD GA S ORDERABLES Performing Organization Address [facility] de Phone Number [facility] [address] [place] [address] * (ABNORMAL) POCT GLUCOSE, INTERFACED (03/19/2020 6:51 EDT) Glucose, POC 128(H) 70 - 100 mg/dL 03/19/2020 6:53 EDT [facility]OR[facility] denitrator operator ID [id number] 03/19/2020 6:53 EDT [facility] HN LAB POC COMMENT (GLUCOSE) Test Performed by Nursing Services 03/19/2020 6:53 EDT [facility] Blood CAPILLARY BLOOD / Unknown 03/19/2020 6:51 EDT 03/19/2020 6:53 EDT Robinson arriaga Sa, MD POINT OF CARE T EST ORDERABLES Performing Organization Address [facility] Co de Phone Number [facility] [address] [place] [address] * COMPLETE BLOOD COUNT (03/19/2020 5:46 EDT) WBC 7.59 4.00 - 10.40 K/cmm 03/19/2020 6:36 EDT [facility] RBC 5.13 4.36 - 5.78 M/cmm 03/19/2020 6:36 T [facility] Hemoglobin 14.4 13.8 - 17.3 gm/dL 03/19/2020 6:36 T [facility] HCT 42.2 39.5 - 50.2 % 03/19/2020 6:36 [facility] MCV 82 81 - 95 fl 03/19/2020 6:36 T [facility] MCH 28.1 27.6 - 33.0 pg 03/19/2020 6:36 [facility] MCHC 34.1 32.8 - 36.4 gm/dL 03/19/2020 6:36 [facility] RDW-CV 13.8 <14.2 % 03/19/2020 6:36 [facility] RDW-SD 40.7 <46.0 fl 03/19/2020 6:36 [facility] PLT 256 141 - 377 K/cmm 03/19/2020 6:36 [facility] MPV 11.1 9.5 - 12.7 fl 03/19/2020 6:36 [facility] Blood VENOUS BLOOD / Unknown Venipuncture / Unknown 03/19/2020 5:46 EDT 03/19/2020 6:21 EDT Joesph Wesley MD HEMATOLOGY & PF4 ORD ERABLES [facility] [address] [place] [address] * POCT GLUCOSE, INTERFACED (03/19/2020 2:56 EDT) Glucose, POC 88 70 - 100 mg/dL 03/19/2020 2:56 EDT [facility] denitrator operator ID [id number] 03/19/2020 2:56 EDT [facility] HN LAB POC COMMENT (GLUCOSE) Test Performed by Nursing Services 03/19/2020 2:56 EDT [facility] Blood CAPILLARY BLOOD / Unknown 03/19/2020 2:56 EDT 03/19/2020 2:56 EDT Joesph Wesley MD POINT OF CARE TEST O RDERABLES Performing Organization Address [facility] de Phone Number [facility] [address] [place] [address] * (ABNORMAL) HEMOGLOBIN A1C (03/19/2020 1:51 EDT) Hemoglobin A1c 7.4(H) <5.7 % 03/19/2020 8:30 EDT [facility] Comment: Glycemic Status References: [...] Avg Glucose 166 mg/dL 0 8:30 EDT [facility] Comment:The eAG represents t he A1c result expressed as average glucose in mg/dL. Blood VENOUS BLOOD / Unknown Venipuncture / Unknown 03/19/2020 1:51 EDT 03/19/2020 1:55 EDT Joesph Wesley MD CHEMISTRY & BLOOD GA S ORDERABLES Performing Organization Address [facility] Co de Phone Number [facility] [address] [place] [address] * (ABNORMAL) TROPONIN I (03/19/2020 1:51 EDT) Troponin I (ng/mL) 0.214(H) <0.034 ng/mL 03/19/2020 2:32 EDT [facility] Blood VENOUS BLOOD / Unknown Venipuncture / Unknown 03/19/2020 1:51 EDT 03/19/2020 1:55 EDT Narrative [facility] - 03/19/2020 2:32 EDT The results of this assay can be falsely lowered due to the consumption of Biotin. Joesph Wesley MD CHEMISTRY & BLOOD GA S ORDERABLES Performing Organization Address [facility] Co de Phone Number [facility] [address] [place] [address] * CREATININE (03/19/2020 1:51 EDT) Creatinine 0.69 0.66 - 1.25 mg/dL 03/19/2020 2:18 EDT [facility] eGFR 100 >60 mL/min/1.7 3m2 03/19/2020 2:18 EDT [facility] Comment:eGFR calculated rut yadav CKD-EPI equation for non- Americans. Multiply eGFR by 1.16 for patients. Blood VENOUS BLOOD / Unknown Venipuncture / Unknown 03/19/2020 1:51 EDT 03/19/2020 1:55 EDT Joesph Wesley MD CHEMISTRY & BLOOD GA S ORDERABLES [facility] [address] [place] [address] * ELECTROLYTES (03/19/2020 1:51 EDT) Sodium 140 136 - 145 mEq/L 03/19/2020 2:18 EDT [facility] Potassium 3.8 3.5 - 5.0 mEq/L 03/19/2020 2:18 EDT [facility] Chloride 100 96 - 110 mEq/L 03/19/2020 2:18 EDT [facility] CO2 Total 28 22 - 32 mEq/L 03/19/2020 2:18 T [facility] Blood VENOUS BLOOD / Unknown Venipuncture / Unknown 03/19/2020 1:51 EDT 03/19/2020 1:55 EDT Joesph Wesley MD CHEMISTRY & BLOOD GA S ORDERABLES Performing Organization Address City/State/[facility] Co de Phone Number [facility] [address] [place] [address] * COMPLETE BLOOD COUNT (03/19/2020 1:51 EDT) WBC 8.25 4.00 - 10.40 K/cmm 03/19/2020 2:04 [facility] RBC 5.05 4.36 - 5.78 M/cmm 03/19/2020 2:04 [facility] Hemoglobin 14.4 13.8 - 17.3 gm/dL 03/19/2020 2:04 [facility] HCT 41.5 39.5 - 50.2 % 03/19/2020 2:04 [facility] MCV 82 81 - 95 fl 03/19/2020 2:04 [facility] MCH 28.5 27.6 - 33.0 pg 03/19/2020 2:04 [facility] MCHC 34.7 32.8 - 36.4 gm/dL 03/19/2020 2:04 [facility] RDW-CV 13.7 <14.2 % 03/19/2020 2:04 [facility] RDW-SD 40.5 <46.0 fl 03/19/2020 2:04 [facility] PLT 234 141 - 377 K/cmm 03/19/2020 2:04 [facility] MPV 10.0 9.5 - 12.7 fl 03/19/2020 2:04 [facility] Blood VENOUS BLOOD / Unknown Venipuncture / Unknown 03/19/2020 1:51 EDT 03/19/2020 1:55 EDT Joesph Wesley MD HEMATOLOGY & PF4 ORD ERABLES Performing Organization Address [facility] de Phone Number [facility] [address] [place] [address] * HEPARIN LEVEL - UNFRACTIONATED HEPARIN (03/19/2020 1:51 EDT) Heparin Level-UFH 0.24 Therapeutic Range: 0.30 - 0.70 IU/mL 03/19/2020 2:16 EDT [facility] Blood VENOUS BLOOD / Unknown Venipuncture / Unknown 03/19/2020 1:51 EDT 03/19/2020 1:55 EDT Narrative [facility] - 03/19/2020 2:16 EDT Sample retested, result confirmed Kristi Cruz MD HEMATOLOGY & PF4 OR DERABLES Performing Organization Address [facility] Co de Phone Number [facility] [address] [place] [address] * EKG 12-LEAD (03/19/2020 0:10 EDT) 03/19/2020 0:10 EDT Narrative [facility] EKG - 04/17/2020 8:44 EDT ? [facility] ? Test Date: ?2020-03-19 Pat Name: ? CLAUDIA BATISTA ? Department: ?? [place] [address] ? Room: ? [id number] Gender: ? Male ? Logistics Tech: ?? [id number] : ?1955 ? Requested By: JULIAN KRISTI Acuna Order Number: [id number] ? Messi HAYES: ?? ANETA HAN MD ? Measurements Intervals ?[place] ? Rate: ? 72 ? P: ?50 NM: ? 214 ?QRS: ?69 QRSD: ? 125 [...] Han MD - 04/17/2020 [facility] Test Date: 2020-03-19 Pat Name: CLAUDIA BATISTA Department: [place] [address] Room: [facility] Gender: Male Logistics Tech: [id number] : 1955 Requested By: JULIAN Acuna Order Number: [id number] Reading MD: ANETA HAN MD Measurements Intervals [place] Rate: 72 P: 50 NM: 214 QRS: 69 QRSD: 125 T: 6 [...] On 04-17-2020 8:44:09 EDT by ANETA RASHID. Kristi Cruz MD CARDIAC ECG ORDERAB LES [facility] EKG * POCT GLUCOSE, INTERFACED (03/18/2020 23:20 EDT) Glucose, POC 98 70 - 100 mg/dL 03/18/2020 23:21 EDT [facility] denitrator operator ID [id number] 03/18/2020 23:21 EDT [facility] HN LAB POC COMMENT (GLUCOSE) Test Performed by Nursing Services 03/18/2020 23:21 EDT [facility] Blood CAPILLARY BLOOD / Unknown 03/18/2020 23:20 EDT 03/18/2020 23:21 EDT Kristi Cruz MD POINT OF CARE TEST ORDERABLES [facility] [address] [place] [address] documented in this encounter Visit Diagnoses Diagnosis NSTEMI (non-ST elevated myocardial infarction) ([facility])- Primary Acute myocardial infarction, subendocardial infarction, episode of care unspecified Essential hypertension Unspecified essential hypertension NSTEMI (non-ST elevated myocardial infarction) ([facility]) Acute myocardial infarction, subendocardial infarction, episode of care unspecified Type 2 diabetes mellitus with vascular disease ([facility]) Type II or unspecified type diabetes mellitus with peripheral circulatory disorders, not stated as uncontrolled NSVT (nonsustained ventricular tachycardia) ([facility]) Paroxysmal ventricular tachycardia Atherosclerosis of coronary artery without angina pectoris, unspecified vessel or lesion type, unspecified whether chitina or transplanted heart Other specified disorders of arteries and arterioles ([facility]) Other specified disorders of arteries and arterioles Stenosis of coronary stent, initial encounter Old myocardial infarction Hyperlipidemia with target LDL less than 70 Other and unspecified hyperlipidemia Insulin-requiring or dependent type II diabetes mellitus ([facility]) Type II or unspecified type diabetes mellitus without mention of complication, not stated as uncontrolled Family history of ischemic heart disease Ventricular tachycardia ([facility]) Paroxysmal ventricular tachycardia Hypertensive disorder Unspecified essential hypertension Diabetes mellitus ([facility]) Type II or unspecified type diabetes mellitus without mention of complication, not stated as uncontrolled Type 2 diabetes mellitus with vascular disease ([facility]) Type II or unspecified type diabetes mellitus with peripheral circulatory disorders, not stated as uncontrolled NSVT (nonsustained ventricular tachycardia) ([facility]) Paroxysmal ventricular tachycardia Ventricular tachycardia ([facility]) Paroxysmal ventricular tachycardia documented in this encounter [...] dose, Starting on Thu03/19/20 at 1508, Until [facility] 03/22/20 at 1822 lisinopriL (PRINIVIL) tablet 5 [...] Hall, RN) 0928 (Given - Provider: Jayashree Espitia, RN) aspirin chewable tablet 81 mg 81 mg, oral, DAILY, First dose on Thu03/19/20 at 0900, Until Discontinued, Routine 0835 (Given - Provider: Sima Pace, RN) 0841 [...] orders.) 0840 (Not Given - Provider: Roya aHll RN - Reason: Patient/family refused)2037 (Not Given [...] pt off unit) 0928 (Given - Provider: Jayashree Espitia RN) lisinopriL (PRINIVIL) tablet 5 mg 5 mg, oral, DAILY, First dose on Thu03/19/20 at 0900, Until Discontinued, Routine 0835 (Given - Provider: Sima Pace RN) 0841 (Given - Provider: Roya Hall RN) 0928 (Given - Provider: Jayashree Espitia RN) LORazepam [...] 0929 (Given - Provider: Jayashree Espitia RN) rosuvastatin (CRESTOR) tablet 40 mg 40 mg, oral, DAILY, First dose on Thu03/19/20 at 0900, Until Discontinued, Routine 0835 (Given - Provider: Sima Pace RN) 0841 (Given - Provider: Roya Hall, RN) 0929 (Given - Provider: Jayashree Espitia RN) sertraline (ZOLOFT) tablet 50 mg 50 mg, oral, DAILY, First dose (after last modification) on Thu03/19/20 at 0215, Until Discontinued, Routine 0836 (Given - Provider: Sima Pace RN) 0841 [...] Discontinued, Routine 2054 (Given - Provider: Rock Galdamez RN) 203 (Given - Provider: Siddhartha Walton RN) PRN Medication Order 03/20/2020 03/21/2020 03/22/2020 acetaminophen (TYLENOL) tablet 650 mg 650 mg, oral, EVERY 4 HOURS PRN, Starting on Thu03/19/20 at 1557, Until Darlin 03/22/20 at 1822, Pain, Routine, Release 1125 (Given - Provider: Sima Pace RN)1905 (Given - Provider: Sima Pace RN) 0639 (Given - Provider: Rock Galdamez RN) 1306 (Given - Provider: Jayashree Espitia [...] injection 1 03/19/2020 fentaNYL citrate (PF) injection 0 glucagon injection 1 mg 1 03/19/2020 heparin 1,000 unit/mL injection 0 heparin 1,000 unit/mL inject ion 5,900 [...] 1 03/19 traZODone (DESYREL) tablet 50 mg 03/19/20 20 verapamiL (ISOPTIN) 2.5 mg/mL injection [...] Date First Orde red Date CASE REQUEST 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
[2024-05-06 04:53] LABS: Lactate 1.5 mmol/L (0.6-1.4)
--- OUTSIDE RECORDS SUMMARY | 2024-05-06 04:53 | XMS_ITS | Encounter Summary ---
Author Organization [facility] Address [address] [place] [address] Care Team Providers Care Conference Planner Name Role Phone MorroDenise galvan JENNIFER Primary Care Provider +1 [phone] Reason for Visit * Reason Onset Date Comments Appointment Related 10/19/2019 Encounter Details Date Type Department Care Team ([facility] st Contact Info) Description 10/19/2019 Telephone [facility] Neurology - S [address] [phone] Ken Bran MD [address] [place] [address] 2 [place] [address] Appointment Related Social History Tobacco [...] Telephone Encounter - Akua Kyle - 10/19/2019 9496 EDT Pt called in to cancel 02/19 appt with Yina as he is moving out of [facility] to [place]. documented in this encounter Plan of Treatment Upcoming Encounters Date Type Department Care Team (Late st Contact Info) Description 08/08/2024 13:00 EST Office Visit [facility] Gastroenterology - [address] [phone] Kera Tatum PA-C 111 [facility], [address] 5 [place] [phone] 11/15/2024 18:30 EDT Office Visit [facility] Cardiology - [place] [place] [address] Davian Almonte MD [address] [place], [place] [address] documented as of this encounter Visit Diagnoses Not on filedocumented in this encounter Care Teams Conference Planner Relationship Specialty Start Date End Date Denise Hooker APRN [address] [place] [address] PCP - General 09/13/18 documented as of this encounter
--- OUTSIDE RECORDS SUMMARY | 2024-05-06 04:53 | XMS_ITS | Encounter Summary ---
Author Organization [facility] Address [address] [place] [address] Care Team Providers Care Tow Motor Mechanic Name Role Phone Denise Hooker JENNIFER Primary Care Provider +1 [phone] Encounter Details Date Type Department Care Team [...] Description 08/08/2024 13:00 EST Office Visit [facility] Gastroenterology - [address] [address] Kera Tatum PA-C 111 [facility], [address] 5 [place] [phone] 11/15/2024 18:30 EDT Office Visit [facility] Cardiology - Jenelle [place] [address] Davian Almonte MD [address] [place], [place] [address] documented as of this encounter Visit Diagnoses Not on filedocumented in this encounter Care Teams Tow Motor Mechanic Relationship Specialty Start Date End Date Denise Hooker APRN [address] [place], [place] [address] PCP - General 09/13/18 documented as of this encounter
--- OUTSIDE RECORDS SUMMARY | 2024-05-06 04:53 | XMS_ITS | Encounter Summary ---
Author Organization [facility] Address [address] [place] [address] Care Team Providers Care Clinical Cytopathologist Name Role Phone Denise Hooker APRN Primary Care Provider [phone] [phone] Reason for Referral * Referral (Routine) - Receiving Office to Obtain Authorization Specialty Diagnoses / Procedures Referred By Contact Referred To Contact Gastroenterology and Hepatology Diagnoses NAFLD (nonalcoholic fatty liver disease) Procedures VIBRATION CONTROLLED TRANSIENT ELASTOGRAPHY (VCTE) Letty Mackey MD [address] [place] [phone] [facility] [address] [place] [address] Referral ID Status Reason Start Date Expiration Date Visits Requested Visits Authorized [id number] Receiving Office to Obtain Authorization 07/26/2019 1 1 Reason for Visit * Reason Comments New Patient Visit Fatty Liver * Consult (Routine) - Closed Specialty Diagnoses / Procedures Referred By Contact Referred To Contact Gastroenterology and Hepatology Diagnoses Fatty liver Denise Hooker APRN [address] [place] [address] [facility] [address] [place] [address] Referral ID Status Reason Start Date Expiration Date Visits Re quested Visits Authorized [id number] Closed 1 1 Encounter Details Date Type Department Care Team (Late st Contact Info) Description 07/26/2019 15:00 EST Office Visit [facility] Gastroenterology - [address] [address] Letty Mackey MD [address] [place] [address] NAFLD (nonalcoholic fatty liver disease) [...] Tej Garcia MD - 07/26/2019 1500 EST [facility] Gastroenterology and Hepatology Consult Note: Referring Provider: [...] intranasal drug use. 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 History of DM: yes BMI: 34.21 Alcohol use: rare (twice a year) History of HLD: yes History of HTN: yes Liver imaging: yes (fatty liver on RUQ US in March 2019) History of liver biopsy: no Colonoscopy: 4-5 years ago ([facility]). Noted diverticula. Some polyps [...] RCA; 2004 stents X2 ??? Diabetes mellitus ([facility]) oral agents ??? Diverticulitis ??? Hyperlipidemia ??? Hypertension ??? [place] (myocardial infarction) ([facility]) 1992, 2003 ??? Recurrent infections rt foot [...] obesity. In most people, there are no director long term care liver effects from underlying fatty liver, but [...] care documented in fellow note. In brief, Ralu Trujillo is a 63 y.o. male with [...] needed. Letty Mackey MD Gastroenterology and Hepatology [facility] documented in this encounter Plan of Treatment Upcoming Encounters Date Type Department Care Team (Late st Contact Info) Description 08/08/2024 13:00 EST Office Visit [facility] Gastroenterology - [address] [phone] Kera Tatum PA-C [address] [place] [address], [address] [place] [address] 11/15/2024 18:30 EDT Office Visit [facility] Cardiology - [address] [place], [place] [phone] Davian Almonte MD [address] [place] [address] documented as of this encounter Results * VIBRATION CONTROLLED TRANSIENT ELASTOGRAPHY (VCTE) (08/31/2019 14:30 EST) Anatomical Region Laterality Modality Endoscopy Narrative 08/31/2019 14:30 EST Shaq Phan MD ? 08/31/2019 14:19 [facility] Hepatology Fibrosis Assessment Patient: Raul Trujillo : 1955 Team Assembler: ??Shaq Phan MD Referring Physician: Letty Godinez APRN, MD Disease diagnosis: fatty liver Procedure: Vibration Controlled Transient Elastography (VCTE) or Fibroscan [place] Protocol: Patient's identity, procedure and site were [...] Cc: MD Denise Hoskins APRN [address]OX [facility] / [facility] [address] Letty Mackey MD GI PROCEDURE ORDERAB LES * HEPATITIS A TOTAL ANTIBODY W REFLEX (07/26/2019 16:17 EST) Pathologist [facility] Hepatitis A Antibody, Total Negative Negative 07/27/2019 14:54 EST [facility] Blood VENOUS BLOOD / Unknown Venipuncture / Unknown 07/26/2019 16:17 EST 07/26/2019 16:45 EST Narrative [facility] - 07/27/2019 14:54 EST The result of this assay can be falsely elevated (Positive) due to the consumption of Biotin. Letty Mackey MD CHEMISTRY & BLOOD GA S ORDERABLES Performing Organization Address [facility] Co de Phone Number [facility] [address] [place] [address] * HEPATITIS B SURFACE ANTIBODY (07/26/2019 16:17 EST) Pathologist [facility] Hep B Surface Ab, Quantitative 203.5 See Note mIU/mL 07/27/2019 14:54 [facility] Comment: Reference Range for Hep B Surface Ab, Quant: Positive: >= 10.0 mIU/mL Negative: ??< 10.0 mIU/mL Patient is presumed to be immune to infection with Hepatitis B Virus. Hep B Surface Ab, Qualitative Positive See Note 07/27/2019 14:54 EST [facility] Comment: Reference Range for Hep B Surface Ab, Qual: Unvaccinated: ??Negative Vaccinated: ??Positive Blood VENOUS BLOOD / Unknown Venipuncture / Unknown 07/26/2019 16:17 EST 07/26/2019 16:45 EST Letty Mackey MD CHEMISTRY & BLOOD GA S ORDERABLES Performing Organization Address City/[facility]/ZIP Co de Phone Number [facility] [address] [place] [address] * COMPLETE BLOOD COUNT AND DIFFERENTIAL (07/26/2019 16:17 EST) Pathologist [facility] WBC 8.89 4.00 - 10.40 K/cmm 07/26/2019 17:00 EST [facility] RBC 5.12 4.36 - 5.78 M/cmm 07/26/2019 17:00 EST [facility] Hemoglobin 14.3 13.8 - 17.3 gm/dL 07/26/2019 17:00 [facility] HCT 43.3 39.5 - 50.2 % 07/26/2019 17:00 [facility] MCV 85 81 - 95 fl 07/26/2019 17:00 [facility] MCH 27.9 27.6 - 33.0 pg 07/26/2019 17:00 [facility] MCHC 33.0 32.8 - 36.4 gm/dL 07/26/2019 17:00 [facility] RDW-CV 13.3 <14.2 % 07/26/2019 17:00 [facility] RDW-SD 41.3 <46.0 fl 07/26/2019 17:00 [facility] PLT 289 141 - 377 K/cmm 07/26/2019 17:00 [facility] MPV 10.1 9.5 - 12.7 fl 07/26/2019 17:00 [facility] % Neutrophils 53.6 % 07/26/2019 17:00 [facility] % Lymphocytes 35.3 % 07/26/2019 17:00 [facility] % Monocytes 8.5 % 07/26/2019 17:00 [facility] % Eosinophils 1.7 % 07/26/2019 17:00 [facility] % Basophils 0.7 % 07/26/2019 17:00 [facility] % Immature Grans 0.2 % 07/26/19 20 17:00 [facility] Absolute Neutrophils 4.76 2.20 - 8.85 K/cmm 07/26/2019 17:00 [facility] Absolute Lymphocytes 3.14 1.09 - 3.30 K/cmm 07/26/2019 17:00 [facility] Absolute Monocytes 0.76 0.10 - 0.80 K/cmm 07/26/2019 17:00 [facility] Absolute Eosinophils 0.15 0.03 - 0.61 K/cmm 07/26/2019 17:00 [facility] ABS Basophils 0.06 0.01 - 0.11 K/cmm 07/26/2019 17:00 [facility] Absolute Immature Grans 0.02 0.00 - 0.06 K/cmm 07/26/2019 17:00 [facility] Type of Differential: Auto 07/26/2019 17:00 [facility] Blood VENOUS BLOOD / Unknown Venipuncture / Unknown 07/26/2019 16:17 EST 07/26/2019 16:45 EST Letty Mackey MD PACKAGES & DNA PROBE ORDERABLES [facility] [address] [place] [address] * (ABNORMAL) COMPREHENSIVE METABOLIC PANEL (CMP) (07/26/2019 16:17 EST) Sodium 139 136 - 145 mEq/L 07/26/2019 17:31 [facility] Potassium 4.8 3.5 - 5.0 mEq/L 07/26/2019 17:31 [facility] Chloride 99 96 - 110 mEq/L 07/26/2019 17:31 [facility] CO2 Total 29 22 - 32 mEq/L 07/26/2019 17:31 [facility] Glucose 135(H) 70 - 100 mg/dL 07/26/2019 17:31 [facility] BUN 17 10 - 26 mg/dL 07/26/2019 17:31 [facility] Creatinine 1.04 0.66 - 1.25 mg/dL 07/26/2019 17:31 [facility] eGFR 76 >60 mL/min/1.7 3m2 07/26/2019 17:31 [facility] Comment:eGFR calculated usin g CKD-EPI equation for non- Americans. Multiply eGFR by 1.16 for patients. Total Protein 7.4 6.3 - 8.2 g/dL 07/26/2019 17:31 [facility] Albumin 4.6 3.4 - 4.9 g/dL 07/26/2019 17:31 [facility] Alkaline Phosphatase 82 38 - 126 U/L 07/26/2019 17:31 [facility] AST 40 15 - 46 U/L 07/26/2019 17:31 [facility] ALT 55(H) <50 U/L 07/26/2019 17:31 [facility] Bilirubin, Total <0.5 <1.4 mg/dL 07/26/19 20 17:31 [facility] Calcium 9.7 8.5 - 10.5 mg/dL 07/26/2019 17:31 [facility] Calculated Calcium 9.2 8.5 - 10.5 mg/dL 07/26/2019 17:31 [facility] Blood VENOUS BLOOD / Unknown Venipuncture / Unknown 07/26/2019 16:17 EST 07/26/2019 16:45 EST Letty Mackey MD CHEMISTRY & BLOOD GA S ORDERABLES Performing Organization Address [facility] de Phone Number [facility] [address] [place] [address] * IGA (07/26/2019 16:17 EST) IgA 321 85 - 499 mg/dL 07/27/2019 10:20 [facility] Blood VENOUS BLOOD / Unknown Venipuncture / Unknown 07/26/2019 16:17 EST 07/26/2019 16:45 EST Letty Mackey MD CHEMISTRY & BLOOD GA S ORDERABLES Performing Organization Address [facility] de Phone Number [facility] [address] [place] [address] * TISSUE TRANSGLUTAMINASE AB (07/26/2019 16:17 EST) Tissue Transglutaminase Antibody IGA <1.2 <4.0 U/mL 07/27/2019 11:54 [facility] Comment: A negative result may be due to IgA deficiency and does not rule out celiac disease. ? Negative: ??<4.0 U/mL ? Weak Positive: ??4.0 - 10.0 U/mL ? Positive: ??>10.0 U/mL Results were obtained with the [employer] QUANTA Lite R h-tTG IgA JAVED assay on the Quarterly DSX. Blood VENOUS BLOOD / Unknown Venipuncture / Unknown 07/26/2019 16:17 EST 07/26/2019 16:45 EST Letty Mackey MD IMMUNOLOGY AND SEROL CINTHIA ORDERABLES [facility] [address] [place] [address] documented in this encounter Visit Diagnoses Diagnosis NAFLD (nonalcoholic fatty liver disease)- Primary Other chronic nonalcoholic liver disease Elevated LFTs Other abnormal blood chemistry Diarrhea, unspecified type documented in this encounter Care Teams Clinical Cytopathologist Relationship Specialty Start Date End Date Denise Hooker APRN [address] [place] [address] PCP - General 09/13/18 documented as of this encounter
--- OUTSIDE RECORDS SUMMARY | 2024-05-06 04:53 | XMS_ITS | Encounter Summary ---
Author Organization [facility] Address [address] [place] [address] Care Team Providers Care Inset Cutter Name Role Phone Denise Hooker JENNIFER Primary Care Provider [phone] Reason for Visit * Reason Onset Date Comments Paperwork request 06/02/2019 Encounter Details Date Type Department Care Team ([facility] Contact Info) Description 06/02/2019 Telephone [facility] Neurology - [address] [phone] Ken Bran MD [address] [place] [address] [address] [place] [address] Paperwork request Social History Tobacco [...] Kyle - 06/02/2019 1417 EST Nickie from [facility] called request recent office notes from Dr Bran. Routed notes via fax to [phone] documented in this encounter Plan of Treatment Upcoming Encounters Date Type Department Care Team (Late st Contact Info) Description 08/08/2024 13:00 EST Office Visit [facility] Gastroenterology - [address] [phone] Kera Tatum PA-C 111 [facility], [address] [place] [phone] 11/15/2024 18:30 EDT Office Visit [facility] Cardiology - [place] [address] Davian Almonte MD [address] [place], [place] [address] documented as of this encounter Visit Diagnoses Not on filedocumented in this encounter Care Teams Inset Cutter Relationship Specialty Start Date End Date Denise Hooker APRN [address] [place] [address] PCP - General 09/13/18 documented as of this encounter
--- OUTSIDE RECORDS SUMMARY | 2024-05-06 04:53 | XMS_ITS | Encounter Summary ---
Author Organization [facility] Address [address] [place] [address] Care Team Providers Care Visitor Services Representative Name Role Phone MorroDenise JENNIFER Primary Care Provider +1 -[phone] Encounter Details Date Type Department Care Team ([facility] Contact Info) Description 08/25/2019 Lab Requisition [facility] Pathology & Laboratory Medicine - [facility] [address] [place] [address] Unknown, Provider, Social History Tobacco Use Types [...] Info) Description 08/08/2024 13:00 EST Office Visit [facility] Gastroenterology - [address] [address] Kera Tatum PA-C [address] [place] [address], [facility], [address] [place] [address] 11/15/2024 18:30 EDT Office Visit [facility] Cardiology - Jenelle Jenelle Te[address] [place], [place] [phone] Davian Almonte MD [address] [place] [phone] documented as of this encounter Procedures Procedure Name Priority Date/Time Associated Diagnosis Comments FECAL BACTERIAL PATHOGENS BY PCR Routine 08/24/2019 6:15 EST documented in this encounter Results * FECAL BACTERIAL PATHOGENS BY PCR (08/24/2019 6:15 EST) Salmonella PCR Negative Negative 08/26/2019 12:28 EST [facility] Shigella/Enteroin vasive E. coli Negative Negative 08/26/2019 12:28 EST [facility] HN LAB CAMPYLOBACTER PCR Negative Negative 08/26/2019 12:28 EST [facility] Shiga Toxin PCR Negative Negative 0 12:28 EST [facility] Feces SPECIMEN FROM RECTUM / Unknown 08/24/2019 6:15 EST 08/25/2019 15:49 EST Provider Unknown MICROBIOLOGY - GENER AL ORDERABLES [facility] [address] [place] [address] documented in this encounter Visit Diagnoses Not on filedocumented in this encounter Care Teams Visitor Services Representative Relationship Specialty Start Date End Date Denise Hooker APRN [address] [place] [address] PCP - General 09/13/18 documented as of this encounter
--- OUTSIDE RECORDS SUMMARY | 2024-05-06 04:53 | XMS_ITS | Encounter Summary ---
Author Organization [facility] Address [address] [place] [address] Care Team Providers Care Bi Specialist Name Role Phone Denise Hooker JENNIFER Primary Care Provider [phone] [phone] Reason for Referral * Radiology Services (Routine) - New Request Specialty Diagnoses / Procedures Referred By Contac t Referred To Contact Diagnoses Lumbar stenosis with neurogenic claudication Fasciculations Procedures MR LUMBAR SPINE WO CONTRAST MR LUMBAR SPINE WO CONTRAST Ken Bran MD [address] [place] [phone] Referral ID Status Reason Start Date Expiration Date V isits Requested Visits Authorized [id number] New Request 05/19/2019 1 1 * Office Procedure (Routine) - Closed Specialty Diagnoses / Procedures Referred By Contac t Referred To Contact Neurology Diagnoses Fasciculations Polyneuropathy Procedures EMG/NERVE CONDUCTION STUDY Ken Bran MD [address] [place] [phone] [facility] Neuromusc & Clin Neurophys [address] [place] [address] Referral ID Status Reason Start Date Expiration Date Visits Re quested Visits Authorized [id number] Closed 05/19/2019 1 1 Reason for Visit * Reason Comments New Patient Visit * Referral (Routine) - Closed Specialty Diagnoses / Procedures Referred By Claire jacques Referred To Contact Neurology Diagnoses Muscle twitch Denise Hooker APRN [address] [place] [address] Ken Bran MD [address] [place] [phone] Referral ID Status Reason Start Date Expiration Date Visits Re quested Visits Authorized [id number] Closed 1 1 Encounter Details Date Type Department Care Team (Late st Contact Info) Description 05/19/2019 13:00 EDT Office Visit [facility] Neurology - S [address] [address] Ken Bran MD [address] [place] [phone] Fasciculations (Primary Dx); Polyneuropathy; Lumbar stenosis [...] MD - 05/19/2019 0000 EDT NEUROMUSCULAR DIVISION NEUROLOGY NEUROMUSCULAR CONSULTATION - 05/19/2019 Denise Hooker [address] [phone] Dear Nurse Practitioner Morro: Thank you for [...] Depression. Social history: The patient works in [employer]. He is . He enjoys spending time in [place] and has plans to retire in the [...] jerks, 1+ bilateral ankle jerks. Toesdowngoing. Coordination: Bunocd-im-fdif is normal. Gait: Normal casual gait, able [...] questions or concerns. Sincerely, Ken Bran MD Desk Pen Set Assembler of Neurology Neurology Attending Physician ABPN Board Certified, Neurology and Neuromuscular Medicine ABEM Board Certified, EMG - Ken Bran MD an Dictation ID: [id number] cc: Denise Hooker APRN documented in this encounter Plan of Treatment Upcoming Encounters Date Type Department Care Team (Late st Contact Info) Description 08/08/2024 13:00 EST Office Visit [facility] Gastroenterology - [address] [phone] Kera Tatum PA-C 111 [facility], [facility], [address] [place] [phone] 11/15/2024 18:30 EDT Office Visit [facility] Cardiology - [address] [place] [address] Davian Almonte MD [address] [place], [place] [address] Scheduled Orders Name Type Priority Associated Diagnoses [...] daily. added in this encounter Care Teams Bi Specialist Relationship Specialty Start Date End Date Denise Hooker APRN [address] [place] [address] PCP - General 09/13/18 documented as of this encounter
--- OUTSIDE RECORDS SUMMARY | 2024-05-06 04:53 | XMS_ITS | Encounter Summary ---
Author Organization [facility] Address [address] [place] [address] Care Team Providers Care Physician Credentialing Specialist Name Role Phone Denise Hooker JENNIFER Primary Care Provider +1 -[phone] Reason for Visit * Reason Onset Date Comments Results 01/27/2020 Encounter Details Date Type Department Care Team ([facility] Contact Info) Description 01/27/2020 Telephone [facility] Gastroenterology - [facility] [address] [place], [place] [address] Letty Mackey MD [address] [place] [phone] Results Social History Tobacco Use Types [...] Encounter - Letty Mackey MD - 01/27/2020 6536 EDT Called the patient to review his [...] interim. Letty Mackey MD Gastroenterology and Hepatology [facility] documented in this encounter Plan of Treatment Upcoming Encounters Date Type Department Care Team (Late st Contact Info) Description 08/08/2024 13:00 EST Office Visit [facility] Gastroenterology - [address] [phone] Kera Tatum PA-C 111 [facility], [facility], Level 5 [place] [phone] 11/15/2024 18:30 EDT Office Visit [facility] Cardiology - [place] [address] Davian Almonte MD [address] [place], [place] [address] documented as of this encounter Visit Diagnoses Not on filedocumented in this encounter Care Teams Physician Credentialing Specialist Relationship Specialty Start Date End Date Denise Hooker APRN [address] [place] [address] PCP - General 09/13/18 documented as of this encounter
--- OUTSIDE RECORDS SUMMARY | 2024-05-06 04:53 | XMS_ITS | Encounter Summary ---
Author Organization [facility] Address [address] [place] [address] Care Team Providers Care Disabilities Services Officer Name Role Phone Denise Hooker JENNIFER Primary Care Provider [phone] [phone] Reason for Visit * Reason Onset Date Comments Diagnostic Imaging Report 06/27/2019 Report from Jason Encounter Details Date Type Department Care Team ([facility] st Contact Info) Description 06/27/2019 Telephone [facility] Neurology - [place] [address] [place] [phone] Ken Bran MD [address] [place] [address] 2 [place] [address] Diagnostic Imaging Report (Report from [...] Visit [facility] Gastroenterology - [facility] [address] [place], [place] [address] Kera Tatum PA-C 111 [facility], Level 5 [place] [phone] 11/15/2024 18:30 EDT Office Visit [facility] Cardiology - [place] [address] Davian Almonte MD [address] [place], [place] [address] documented as of this encounter Visit Diagnoses Not on filedocumented in this encounter Care Teams Disabilities Services Officer Relationship Specialty Start Date End Date Denise Hooker APRN [address] [place] [address] PCP - General 09/13/18 documented as of this encounter
--- OUTSIDE RECORDS SUMMARY | 2024-05-06 04:53 | XMS_ITS | Encounter Summary ---
Author Organization [facility] Address [address] [place] [address] Care Team Providers Care Crane Ladle Person Name Role Phone Denise Hooker APRN Primary Care Provider [phone] [phone] Reason for Visit * Office Procedure (Routine) - Closed Specialty Diagnoses / Procedures Referred By Claire jacques Referred To Contact Neurology Diagnoses Fasciculations Polyneuropathy Procedures EMG/NERVE CONDUCTION STUDY Ken Bran MD [address] [place] [phone] [facility]usc [facility] Clin Neurophys [address] [place] [id number] Referral ID Status Reason Start Date Expiration Date Visits Re quested Visits Authorized [id number] Closed 05/19/2019 1 1 Encounter Details Date Type Department Care Team (Latest Contact Info) Description 08/25/2019 9:15 EST - 08/26/2019 23:59 EST Hospital Encounter [facility] Neurophysiology - Main [place] [address] [place], [place] [address] Ken Bran MD [address] [place] [phone] Fasciculations; Polyneuropathy Discharge Disposition: Home or [...] patient reassurance that this is likely not sales and marketing representative of a progressive degenerative neuromuscular disorder. It is possible that this is sales and marketing representative of benign cramp fasciculation syndrome. It [...] call with any questions. Ken Bran MD [facility] Tender of Neurology Neurology Attending Physician ABPN Board Certified, Neurology and Neuromuscular Medicine ABEM Board Certified, EMG documented in this encounter Plan of Treatment Upcoming Encounters Date Type Department Care Team (Late st Contact Info) Description 08/08/2024 13:00 EST Office Visit [facility] Gastroenterology - [address] [address] Kera Tatum PA-C [address] [place] [address], Level [address] [place] [phone] 11/15/2024 18:30 EDT Office Visit [facility] Cardiology - [place] [address] [address] [place], [place] [phone] Davina Almonte MD [address] [place] [phone] Scheduled Orders Name Type Priority Associated Diagnoses Orde r Schedule EMG/NERVE CONDUCTION STUDY Procedures Routine Fasciculations Polyneuropathy Ordered: 05/19/2019 documented as of this encounter Visit Diagnoses Diagnosis Fasciculations Abnormal involuntary movements Polyneuropathy Unspecified hereditary and idiopathic peripheral neuropathy documented in this encounter Care Teams Crane Ladle Person Relationship Specialty Start Date End Date Denise Hooker APRN [address] [place] [address] PCP - General 09/13/18 documented as of this encounter
--- OUTSIDE RECORDS SUMMARY | 2024-05-06 04:53 | XMS_ITS | Encounter Summary ---
Author Organization [facility] Address [address] [place] [address] Care Team Providers Care Rn Production Name Role Phone Denise Hooker APRN Primary Care Provider [phone] [phone] Reason for Referral * Radiology Services (Routine) - Closed Specialty Diagnoses / Procedures Referred By Claire jacques Referred To Contact Diagnoses Fatty liver Procedures US ABDOMEN LIMITED Letty Mackey MD [address] [place] [phone] Referral ID Status Reason Start Date Expiration Date Visits Re quested Visits Authorized [id number] Closed 12/06/2019 1 1 Reason for Visit * Radiology Services (Routine) - Closed Specialty Diagnoses / Procedures Referred By Claire jacques Referred To Contact Diagnoses Fatty liver Procedures US ABDOMEN LIMITED Letty Mackey MD [address] [place] [phone] Referral ID Status Reason Start Date Expiration Date Visits Re quested Visits Authorized [id number] Closed 12/06/2019 1 1 Encounter Details Date Type Department Care Team (Latest Contact Info) Description 01/26/2020 12:36 EDT - 01/26/2020 23:59 EDT Hospital [facility] - [facility] [address] [place], [place] [address] Fatty liver Discharge Disposition: Home or Self [...] Info) Description 08/08/2024 13:00 EST Office Visit [facility] Gastroenterology - [address] [address] Kera Tatum PA-C 111 [facility], Level 5 [place] [phone] 11/15/2024 18:30 EDT Office Visit [facility] Cardiology - Jenelle [place] [address] Davian Almonte MD [address] [place], [place] [address] documented as of this encounter Procedures Procedure [...] disease documented in this encounter Care Teams Rn Production Relationship Specialty Start Date End Date Denise Hooker APRN [address] [place] [address] PCP - General 09/13/18 documented as of this encounter
--- OUTSIDE RECORDS SUMMARY | 2024-05-06 04:53 | XMS_ITS | Encounter Summary ---
Author Organization [facility] Address [address] [place] [address] Care Team Providers Care Turpentiner Name Role Phone MorroDenise galvan JENNIFER Primary Care Provider +1 -[phone] Reason for Visit * Reason Onset Date Comments Appointment Related 06/01/2019 MRI at [facility] y Encounter Details Date Type Department Care Team ([facility] Contact Info) Description 06/01/2019 Telephone [facility] Neurology - [address] [phone] Ken Bran MD [address] [place] [address], Level 2 [place] [address] Appointment Related (MRI at [facility] ) Social History Tobacco Use Types Packs/Day [...] Temo Allred - 06/08/2019 1332 EST Called [facility] and they said the patient called and was scheduled 06/23 at 1:00pm * Telephone Encounter - Temo Allred - 06/01/2019 1002 EST Faxed MRI Lumbar WO, screening form and auth to [facility] fax [phone]. They will review and call us with [...] Description 08/08/2024 13:00 EST Office Visit [facility] Gastroenterology - [address] [phone] Kera Tatum PA-C 111 [facility], [facility], Level [address] [place] [address] 11/15/2024 18:30 EDT Office Visit [facility] Cardiology - [address] [place], [place] [phone] Davian Almonte MD [address] [place], [place] [phone] documented as of this encounter Visit Diagnoses Not on filedocumented in this encounter Care Teams Turpentiner Relationship Specialty Start Date End Date Denise Hooker APRN [address] [place] [address] PCP - General 09/13/18 documented as of this encounter
--- OUTSIDE RECORDS SUMMARY | 2024-05-06 04:53 | XMS_ITS | Encounter Summary ---
Author Organization [facility] Address [address] [place] [address] Care Team Providers Care Tube Test Technician Name Role Phone Denise Hooker JENNIFER Primary Care Provider +1 [phone] Encounter Details Date Type Department Care Team ([facility] st Contact Info) Description 07/26/2019 16:00 EST Phlebotomy Only [facility] 2 Phlebotomy [address] [place], [place] [phone] Manager Front Office, Acc Phlebotomy Diarrhea, unspecified type; NAFLD (nonalcoholic [...] 13:00 EST Office Visit [facility] Gastroenterology - [address] [address] Kera Tatum PA-C 111 [facility], [facility], Level 5 [place] [address] 11/15/2024 18:30 EDT Office Visit [facility] Cardiology - [place] [address] [address] [place], [place] [phone] Davian Almonte MD [address] [place], [place] [phone] documented as of this encounter Procedures Procedure [...] REFLEX (07/26/2019 16:17 EST) Pathologist [facility] Hepatitis A Antibody, Total Negative Negative 07/27/2019 14:54 EST [facility] Blood VENOUS BLOOD / Unknown Venipuncture / Unknown 07/26/2019 16:17 EST 07/26/2019 16:45 EST Narrative [facility] - 07/27/2019 14:54 EST The result of this assay can be falsely elevated (Positive) due to the consumption of Biotin. Letty Mackey MD CHEMISTRY & BLOOD GA S ORDERABLES Performing Organization Address [facility] Co de Phone Number [facility] [address] [place] [address] * HEPATITIS B SURFACE ANTIBODY (07/26/2019 16:17 EST) [facility] Hep B Surface Ab, Quantitative 203.5 See Note mIU/mL 07/27/2019 14:54 [facility] Comment: Reference Range for Hep B Surface Ab, Quant: Positive: >= 10.0 mIU/mL Negative: ??< 10.0 mIU/mL Patient is presumed to be immune to infection with Hepatitis B Virus. Hep B Surface Ab, Qualitative Positive See Note 07/27/2019 14:54 EST [facility] Comment: Reference Range for Hep B Surface Ab, Qual: Unvaccinated: ??Negative Vaccinated: ??Positive Blood VENOUS BLOOD / Unknown Venipuncture / Unknown 07/26/2019 16:17 EST 07/26/2019 16:45 EST Letty Mackey MD CHEMISTRY & BLOOD GA S ORDERABLES Performing Organization Address [facility] Co de Phone Number [facility] [address] [place] [address] * COMPLETE BLOOD COUNT AND DIFFERENTIAL (07/26/2019 16:17 EST) [facility] WBC 8.89 4.00 - 10.40 K/cmm 07/26/2019 17:00 EST [facility] RBC 5.12 4.36 - 5.78 M/cmm 07/26/2019 17:00 [facility] Hemoglobin 14.3 13.8 - 17.3 gm/dL 07/26/2019 17:00 [facility] HCT 43.3 39.5 - 50.2 % 07/26/2019 17:00 [facility] MCV 85 81 - 95 fl 07/26/2019 17:00 [facility] MCH 27.9 27.6 - 33.0 pg 07/26/2019 17:00 [facility] MCHC 33.0 32.8 - 36.4 gm/dL 07/26/2019 17:00 [facility] RDW-CV 13.3 <14.2 % 07/26/2019 17:00 [facility] RDW-SD 41.3 <46.0 fl 07/26/2019 17:00 [facility] PLT 289 141 - 377 K/cmm 07/26/2019 17:00 [facility] MPV 10.1 9.5 - 12.7 fl 07/26/2019 17:00 [facility] % Neutrophils 53.6 % 07/26/2019 17:00 [facility] % Lymphocytes 35.3 % 07/26/2019 17:00 [facility] % Monocytes 8.5 % 07/26/2019 17:00 [facility] % Eosinophils 1.7 % 07/26/2019 17:00 [facility] % Basophils 0.7 % 07/26/2019 17:00 [facility] % Immature Grans 0.2 % 07/26/19 20 17:00 [facility] Absolute Neutrophils 4.76 2.20 - 8.85 K/cmm 07/26/2019 17:00 [facility] Absolute Lymphocytes 3.14 1.09 - 3.30 K/cmm 07/26/2019 17:00 [facility] Absolute Monocytes 0.76 0.10 - 0.80 K/cmm 07/26/2019 17:00 [facility] Absolute Eosinophils 0.15 0.03 - 0.61 K/cmm 07/26/2019 17:00 [facility] ABS Basophils 0.06 0.01 - 0.11 K/cmm 07/26/2019 17:00 [facility] Absolute Immature Grans 0.02 0.00 - 0.06 K/cmm 07/26/2019 17:00 [facility] Type of Differential: Auto 07/26/2019 17:00 [facility] Blood VENOUS BLOOD / Unknown Venipuncture / Unknown 07/26/2019 16:17 EST 07/26/2019 16:45 EST Letty Mackey MD PACKAGES & DNA PROBE ORDERABLES [facility] [address] [place] [address] * (ABNORMAL) COMPREHENSIVE METABOLIC PANEL (CMP) (07/26/2019 16:17 EST) Sodium 139 136 - 145 mEq/L 07/26/2019 17:31 [facility] Potassium 4.8 3.5 - 5.0 mEq/L 07/26/2019 17:31 [facility] Chloride 99 96 - 110 mEq/L 07/26/2019 17:31 [facility] CO2 Total 29 22 - 32 mEq/L 07/26/2019 17:31 [facility] Glucose 135(H) 70 - 100 mg/dL 07/26/2019 17:31 [facility] BUN 17 10 - 26 mg/dL 07/26/2019 17:31 [facility] Creatinine 1.04 0.66 - 1.25 mg/dL 07/26/2019 17:31 [facility] eGFR 76 >60 mL/min/1.7 3m2 07/26/2019 17:31 [facility] Comment:eGFR calculated usin g CKD-EPI equation for non- Americans. Multiply eGFR by 1.16 for patients. Total Protein 7.4 6.3 - 8.2 g/dL 07/26/2019 17:31 [facility] Albumin 4.6 3.4 - 4.9 g/dL 07/26/2019 17:31 [facility] Alkaline Phosphatase 82 38 - 126 U/L 07/26/2019 17:31 [facility] AST 40 15 - 46 U/L 07/26/2019 17:31 [facility] ALT 55(H) <50 U/L 07/26/2019 17:31 [facility] Bilirubin, Total <0.5 <1.4 mg/dL 07/26/19 20 17:31 [facility] Calcium 9.7 8.5 - 10.5 mg/dL 07/26/2019 17:31 [facility] Calculated Calcium 9.2 8.5 - 10.5 mg/dL 07/26/2019 17:31 [facility] Blood VENOUS BLOOD / Unknown Venipuncture / Unknown 07/26/2019 16:17 EST 07/26/2019 16:45 EST Letty Mackey MD CHEMISTRY & BLOOD GA S ORDERABLES Performing Organization Address [facility] de Phone Number [facility] [address] [place] [address] * IGA (07/26/2019 16:17 EST) IgA 321 85 - 499 mg/dL 07/27/2019 10:20 [facility] Blood VENOUS BLOOD / Unknown Venipuncture / Unknown 07/26/2019 16:17 EST 07/26/2019 16:45 EST Letty Mackey MD CHEMISTRY & BLOOD GA S ORDERABLES Performing Organization Address [facility] de Phone Number [facility] [address] [place] [address] * TISSUE TRANSGLUTAMINASE AB (07/26/2019 16:17 EST) Tissue Transglutaminase Antibody IGA <1.2 <4.0 U/mL 07/27/2019 11:54 [facility] Comment: A negative result may be due to IgA deficiency and does not rule out celiac disease. ? Negative: ??<4.0 U/mL ? Weak Positive: ??4.0 - 10.0 U/mL ? Positive: ??>10.0 U/mL Results were obtained with the [employer] QUANTA Lite R h-tTG IgA JAVED assay on the [employer] DSX. Blood VENOUS BLOOD / Unknown Venipuncture / Unknown 07/26/2019 16:17 EST 07/26/2019 16:45 EST Letty Mackey MD IMMUNOLOGY AND SALEEM VICENTE ORDERABLES [facility] [address] [place] [address] documented in this encounter Visit Diagnoses Diagnosis Diarrhea, unspecified type NAFLD (nonalcoholic fatty liver disease) Other chronic nonalcoholic liver disease Elevated LFTs Other abnormal blood chemistry documented in this encounter Care Teams Tube Test Technician Relationship Specialty Start Date End Date Denise Hooker APRN [address] [place] [address] PCP - General 09/13/18 documented as of this encounter
--- OUTSIDE RECORDS SUMMARY | 2024-05-06 04:53 | XMS_ITS | Encounter Summary ---
Author Organization [facility] Address [address] [place] [address] Care Team Providers Care Records Technician Name Role Phone Denise Hooker JENNIFER Primary Care Provider +1 -[phone] Reason for Visit * Reason Onset Date Comments Results 09/02/2019 Encounter Details Date Type Department Care Team ([facility] Contact Info) Description 09/02/2019 Telephone [facility] Gastroenterology - [facility] [address] [place], [place] [phone] Letty Mackey MD [address] [place] [phone] Results Social History Tobacco Use Types [...] sooner. Letty Mackey MD Gastroenterology and Hepatology [facility] documented in this encounter Plan of Treatment Upcoming Encounters Date Type Department Care Team (Late st Contact Info) Description 08/08/2024 13:00 EST Office Visit [facility] Gastroenterology - [address] [address] Kera Tatum PA-C [address] [place] [address], [facility], Level [address] [place] [address] 11/15/2024 18:30 EDT Office Visit [facility] Cardiology - [address] [address] Davian Almonte MD [address] [place], [place] [address] documented as of this encounter Visit Diagnoses Not on filedocumented in this encounter Care Teams Records Technician Relationship Specialty Start Date End Date Denise Hooker APRN [address] [place], [place] [id number] PCP - General 09/13/18 documented as of this encounter
--- OUTSIDE RECORDS SUMMARY | 2024-05-06 04:53 | XMS_ITS | Encounter Summary ---
Author Organization [facility] Address [address] [place] [address] Care Team Providers Care Sales Account Director Name Role Phone MorroLilia galvanjorden Easton APRN Primary Care Provider [phone] Reason for Visit * Reason Comments Procedure fibroscan * Referral (Routine) - Receiving Office to Obtain Authorization Specialty Diagnoses / Procedures Referred By Contact Referred To Contact Gastroenterology and Hepatology Diagnoses NAFLD (nonalcoholic fatty liver disease) Procedures VIBRATION CONTROLLED TRANSIENT ELASTOGRAPHY (VCTE) Letty Mackey MD [address] [place] [phone] [facility]5 Gi [address] [place] [address] Referral ID Status Reason Start Date Expiration Date Visits Requested Visits Authorized [id number] Receiving Office to Obtain Authorization 07/26/2019 1 1 Encounter Details Date Type Department Care Team (Late st Contact Info) Description 08/31/2019 14:30 EST Procedure visit [facility] Gastroenterology - [facility] [address] [place] [address] Shaq Phan MD PhD 111 [facility], Level [address] [place] [address] Fatty liver (Primary Dx) Social [...] (VCTE) Procedure(s): VIBRATION CONTROLLED TRANSIENT ELASTOGRAPHY (VCTE) [facility] Hepatology Fibrosis Assessment Patient: Raul Trujillo : 1955 Blood Bank Manager: Shaq Phan MD Referring Physician: Letty Godinez APRN, MD Disease diagnosis: fatty liver Procedure: Vibration Controlled Transient Elastography (VCTE) or Fibroscan [place] Protocol: Patient's identity, procedure and site were [...] likely has: Advanced hepatic fibrosis (F3) Shaq hPan MD Cc: MD Denise Hoskins APRN [address] [address] documented in this encounter Plan of Treatment Upcoming Encounters Date Type Department Care Team (Late st Contact Info) Description 08/08/2024 13:00 EST Office Visit [facility] Gastroenterology - [address] [address] Kera Tatum PA-C [address] [place] [address], [address] [place] [address] 11/15/2024 18:30 EDT Office Visit [facility] Cardiology - [address] [place], [place] [phone] Davian Almonte MD [address] [place] [address] documented as of this encounter Procedures Procedure Name Priority Date/Time Associated Diagnosis Comments VIBRATION CONTROLLED TRANSIENT ELASTOGRAPHY (VCTE) Routine 08/31/2019 14:30 EST NAFLD (nonalcoholic fatty liver disease) documented in this encounter Visit Diagnoses Diagnosis Fatty liver- Primary Other chronic nonalcoholic liver disease documented in this encounter Care Teams Sales Account Director Relationship Specialty Start Date End Date Denise Hooker APRN [address] [place] [address] PCP - General 09/13/18 documented as of this encounter
--- OUTSIDE RECORDS SUMMARY | 2024-05-06 04:53 | XMS_ITS | Encounter Summary ---
Author Organization [facility] Address [address] [place] [address] Care Team Providers Care Sleep Tech Name Role Phone Denise Hooker APRN Primary Care Provider [phone] Reason for Visit * (Routine) - Receiving Office to Obtain Authorization Specialty Diagnoses / Procedures Referred By Claire jacques Referred To Contact Procedures MR OUTSIDE IMAGES NEURO Unknown, Provider, Referral ID Status Reason Start Date Expiration Date Visits Requested Visits Authorized [id number] Receiving Office to Obtain Authorization 06/27/2019 1 1 Encounter Details Date Type Department Care Team ([facility] Contact Info) Description 06/23/2019 - 06/23/2019 23:59 EST Hospital Encounter [facility] Radiology - Main [place] [address] [place], [place] [address] Social History Tobacco Use Types Packs/Day Years [...] [facility] Gastroenterology - [address] [address] Kera Tatum PA-C 111 [facility], [facility], [address] [place] [phone] 11/15/2024 18:30 EDT Office Visit [facility] Cardiology - [address] [place], [place] [phone] Davian Almonte MD [address] [place], [place] [phone] documented as of this encounter Procedures Procedure Name Priority Date/Time Associated Diagnosis Comments MR OUTSIDE IMAGES NEURO Routine 06/27/2019 18:47 EST documented in this encounter Results * MR OUTSIDE IMAGES NEURO (06/27/2019 18:47 EST) Narrative APOLLO - 06/27/2019 18:47 EST This is a non-reportable exam. Him Only No Signature Required IMG OTHER IMAGING ORDERABLES SAVANNA documented in this encounter Visit Diagnoses Not on filedocumented in this encounter Care Teams Sleep Tech Relationship Specialty Start Date End Date Denise Hooker APRN [address] [place], [place] [address] PCP - General 09/13/18 documented as of this encounter
--- OUTSIDE RECORDS SUMMARY | 2024-05-06 04:53 | XMS_ITS | Encounter Summary ---
Author Organization [facility] Address [address] [place] [address] Care Team Providers Care Sample Selector Name Role Phone Denise Hooker APRN Primary Care Provider [phone] Reason for Referral * Radiology Services (Routine) - Closed Specialty Diagnoses / Procedures Referred By Claire jacques Referred To Contact Diagnoses Fatty liver Procedures US ABDOMEN LIMITED Letty Mackey MD [address] [place] [address] Referral ID Status Reason Start Date Expiration Date Visits Re quested Visits Authorized [id number] Closed 12/06/2019 1 1 Reason for Visit * Reason Comments Follow-up Encounter Details Date Type Department Care Team ([facility] Contact Info) Description 12/06/2019 16:00 EDT Office Visit [facility] Gastroenterology - Main [place] [address] [place], [place] [address] Letty Mackey MD [address] [place] [address] Fatty liver (Primary Dx) Social [...] Letty Mackey MD - 12/06/2019 1600 EDT [facility] Gastroenterology and Hepatology follow up: Referring [...] celiac testing done. Planning to move to [place], but plans on being in [place] for the summer. Planning on retiring this [...] liver biopsy: no Colonoscopy: 4-5 years ago ([facility]). Noted diverticula. Some polyps removed (patient unsure of histology). He was having some rectal bleeding at the time which prompted the colonoscopy. Past medical history: Past Medical History: Diagnosis Date ??? CAD (coronary artery disease) 09-10-09 PCI LAD prox MARY, LAD mid MARY, LAD distal BMS; 09-07-09 PCI MARY X 3 RCA; 2004 stents X2 ??? Diabetes mellitus ([facility]) oral agents ??? Diverticulitis ??? Hyperlipidemia ??? Hypertension ??? MO (myocardial infarction) ([facility]) 1992, 2003 ??? Recurrent infections rt [...] follow up with me before going to [place] for winter Letty Mackey MD Gastroenterology and Hepatology [facility] documented in this encounter Plan of Treatment Upcoming Encounters Date Type Department Care Team (Late st Contact Info) Description 08/08/2024 13:00 EST Office Visit [facility] Gastroenterology - [facility] [address] [place], [place] [address] Kera Tatum PA-C 111 [facility], [facility], [address] [place] [phone] 11/15/2024 18:30 EDT Office Visit [facility] Cardiology - [address] [place], [place] [phone] Davina Almonte MD [address] [place] [id number] documented as of this encounter Results * [...] disease documented in this encounter Care Teams Sample Selector Relationship Specialty Start Date End Date Denise Hooker APRN [address] [place] [address] PCP - General 09/13/18 documented as of this encounter
--- OUTSIDE RECORDS SUMMARY | 2024-05-06 04:53 | XMS_ITS | Encounter Summary ---
Author Organization [facility] Address [address] [place] [address] Care Team Providers Care Infection Prevention Coordinator Name Role Phone Denise Hooker JENNIFER Primary Care Provider [phone] Reason for Visit * Reason Comments Coronary Artery Disease Encounter Details Date Type Department Care Team (Latest Contact Info) Description 01/26/2020 11:50 EDT Office Visit [facility] Cardiology [place] [address] Broderick Galloway MD [address] [place] [address] ASCVD (arteriosclerotic cardiovascular disease) (Primary Dx) [...] RCA; 2004 stents X2 ??? Diabetes mellitus ([facility]) oral agents ??? Diverticulitis ??? Hyperlipidemia ??? Hypertension ??? NC (myocardial infarction) ([facility]) 1992, 2003 ??? Recurrent infections rt foot 5th toe Patient Active Problem List Diagnosis Date Noted ??? Chest pain 12/03/2018 Priority: Medium ??? Depression 12/03/2018 Priority: Medium ??? Coronary atherosclerosis 09/07/2009 ??? Hyperlipidemia with target LDL less than 70 09/07/2009 ??? Hypertensive disorder 09/07/2009 ??? Diabetes mellitus ([facility]) 09/07/2009 Current Outpatient Medications Medication Sig [...] Info) Description 08/08/2024 13:00 EST Office Visit [facility] Gastroenterology - [address] [address] Kera Tatum PA-C [address] [place] [address], [address] [place] [address] 11/15/2024 18:30 EDT Office Visit [facility] Cardiology - [address] [place], [place] [phone] Davian Almonte MD [address] [place], [place] [address] documented as of this encounter Visit Diagnoses Diagnosis ASCVD (arteriosclerotic cardiovascular disease)- Primary Unspecified cardiovascular disease documented in this encounter Care Teams Infection Prevention Coordinator Relationship Specialty Start Date End Date Denise Hooker APRN [address] [place] [address] PCP - General 09/13/18 documented as of this encounter
--- OUTSIDE RECORDS SUMMARY | 2024-05-06 04:53 | XMS_ITS | Encounter Summary ---
Author Organization [facility] Address [address] [place] [address] Care Team Providers Care Reading Specialist Name Role Phone MorroLiliaDenise H JENNIFER Primary Care Provider [phone] Reason for Visit * Reason Onset Date Comments New Patient Visit 04/06/2019 Encounter Details Date Type Department Care Team ([facility] st Contact Info) Description 04/06/2019 Telephone [facility] Neurology - [address] [address] Unknown, Provider, New Patient Visit Social History [...] to schedule NPV with Maggi Michel or Rosy documented in this encounter Plan of Treatment Upcoming Encounters Date Type Department Care Team (Late st Contact Info) Description 08/08/2024 13:00 EST Office Visit [facility] Gastroenterology - [address] [phone] Kera Tatum PA-C 111 [facility], [address] [place] [phone] 11/15/2024 18:30 EDT Office Visit [facility] Cardiology - [place] [address] Davian Almonte MD [address] [place], [place] [address] documented as of this encounter Visit Diagnoses Not on filedocumented in this encounter Care Teams Reading Specialist Relationship Specialty Start Date End Date Denise Hooker APRN [address] [place] [address] PCP - General 09/13/18 documented as of this encounter
--- OUTSIDE RECORDS SUMMARY | 2024-05-06 04:53 | XMS_ITS | Encounter Summary ---
Author Organization [facility] Address [address] [place] [address] Care Team Providers Care Targeteer Name Role Phone Denise Hooker JENNIFER Primary Care Provider [phone] Encounter Details Date Type Department Care Team ([facility] st Contact Info) Description 08/25/2019 Orders Only [facility] Neurology - [place] [address] [place] [phone] Ken Bran MD [address] [place] [address], [address] [place] [address] Weakness (Primary Dx); Fasciculation Social [...] Info) Description 08/08/2024 13:00 EST Office Visit [facility] Gastroenterology - [address] [address] Kera Tatum PA-C 111 [facility], [facility], [address] [place] [phone] 11/15/2024 18:30 EDT Office Visit [facility] Cardiology - [place] [address] Davian Almonte MD [address] [place], [place] [phone] documented as of this encounter Procedures Procedure Name Priority Date/Time Associated Diagnosis Comments TSH Routine 08/25/2019 10:32 EST Weakness Fasciculation documented in this encounter Results * T4 FREE (08/25/2019 10:32 EST) T4, Free 1.2 0.8 - 2.2 ng/dL 08/25/2019 12:20 EST [facility] Blood VENOUS BLOOD / Unknown Venipuncture / Unknown 08/25/2019 10:32 EST 08/25/2019 11:30 EST Ken Bran MD CHEMISTRY & BLOOD GAS ORDERABLES Performing Organization Address [facility] de Phone Number [facility] [address] [place] [address] * TSH (08/25/2019 10:32 EST) TSH 1.71 0.47 - 4.68 uIU/mL 08/25/2019 12:34 EST [facility] Blood VENOUS BLOOD / Unknown Venipuncture / Unknown 08/25/2019 10:32 EST 08/25/2019 11:30 EST Narrative [facility] - 08/25/2019 12:34 EST The results of this assay can be falsely lowered due to the consumption of Biotin. Ken Bran MD CHEMISTRY & BLOOD GAS ORDERABLES Performing Organization Address [facility] de Phone Number [facility] [address] [place] [address] * CK (08/25/2019 10:32 EST) CK 107 <=250 U/L 08/25/2019 12:01 EST [facility] Blood VENOUS BLOOD / Unknown Venipuncture / Unknown 08/25/2019 10:32 EST 08/25/2019 11:30 EST Ken Bran MD CHEMISTRY & BLOOD GAS ORDERABLES Performing Organization Address [facility] de Phone Number [facility] [address] [place] [address] * PARANEOPL AUTO ANTIBODY, SERUM (08/25/2019 10:32 EST) Interpretive Comments SEE NOTE 09/12/2019 17:05 EST [facility] Comment: No informative autoantibodies were detected in the Paraneoplastic Evaluation. However, a negative result does not exclude neurological autoimmunity with or without associated neoplasia. Sensitivity and specificity of antibody testing are enhanced by testing both serum and CSF. LEISA-1, S Negative <1:240 titer 09/12/2019 17:05 EST [facility] Reflex Added None. 09/12/2019: [facility] Comment: ADDITIONAL INFORMATION This test was developed and its performance characteristics determined by [facility] in a manner consistent with CLIA requirements. This test has not been cleared or approved by the U.S. Food and Drug Administration. LEISA-2, S Negative <1:240 titer 09/12/2019: [facility] Comment: ADDITIONAL INFORMATION This test was developed and its performance characteristics determined by [facility] in a manner consistent with CLIA requirements. This test has not been cleared or approved by the U.S. Food and Drug Administration. LEISA-3, S Negative <1:240 titer 09/12/2019: [facility] [employer] Comment: ADDITIONAL INFORMATION This test was developed and its performance characteristics determined by [facility] in a manner consistent with CLIA requirements. This test has not been cleared or approved by the U.S. Food and Drug Administration. AGNA-1, S Negative <1:240 titer 09/12/2019: [facility] [employer] Comment: ADDITIONAL INFORMATION This test was developed and its performance characteristics determined by [facility] in a manner consistent with CLIA requirements. This test has not been cleared or approved by the U.S. Food and Drug Administration. POWERHOUSE ELECTRICIAN APPRENTICE-1, S Negative <1:240 titer 09/12/2019: [facility] [employer] Comment: ADDITIONAL INFORMATION This test was developed and its performance characteristics determined by [facility] in a manner consistent with CLIA requirements. This test has not been cleared or approved by the U.S. Food and Drug Administration. POWERHOUSE ELECTRICIAN APPRENTICE-2, S Negative <1:240 titer 09/12/2019 17:05 [facility] [employer] Comment: ADDITIONAL INFORMATION This test was developed and its performance characteristics determined by [facility] in a manner consistent with CLIA requirements. This test has not been cleared or approved by the U.S. Food and Drug Administration. POWERHOUSE ELECTRICIAN APPRENTICE-Tr, S Negative <1:240 titer 09/12/2019 17:05 [facility] [employer] Comment: ADDITIONAL INFORMATION This test was developed and its performance characteristics determined by [facility] in a manner consistent with CLIA requirements. This test has not been cleared or approved by the U.S. Food and Drug Administration. Amphiphysin Ab, S Negative <1:240 titer 09/12/2019 17:05 [facility] [employer] Comment: ADDITIONAL INFORMATION This test was developed and its performance characteristics determined by [facility] in a manner consistent with CLIA requirements. This test has not been cleared or approved by the U.S. Food and Drug Administration. CRMP-5-IgG, S Negative <1:240 titer 09/12/2019 17:05 [facility] [employer] Comment: ADDITIONAL INFORMATION This test was developed and its performance characteristics determined by [facility] in a manner consistent with CLIA requirements. This test has not been cleared or approved by the U.S. Food and Drug Administration. Striational (Striated Muscle) Ab, S Negative <1:120 titer 09/12/2019 17:05 [facility] [employer] Comment: ADDITIONAL INFORMATION This test was developed and its performance characteristics determined by [facility] in a manner consistent with CLIA requirements. This test has not been cleared or approved by the U.S. Food and Drug Administration. Test Performed by: [facility] - [address] [address] Die Maker: Chon Carrera M.D. Ph.D.; CLIA# [id number] P/Q-Type Calcium Channel Ab 0.00 <=0.02 nmol/L 09/12/2019 17:05 [facility] Comment: ADDITIONAL INFORMATION This test was developed and its performance characteristics determined by [facility] in a manner consistent with CLIA requirements. This test has not been cleared or approved by the U.S. Food and Drug Administration. N-Type Calcium Channel Ab 0.00 <=0.03 nmol/L 09/12/2019 17:05 [facility] [employer] Comment: ADDITIONAL INFORMATION This test was developed and its performance characteristics determined by [facility] in a manner consistent with CLIA requirements. This test has not been cleared or approved by the U.S. Food and Drug Administration. AChR Ganglionic Neuronal Ab, S 0.00 <=0.02 nmol/L 09/12/2019 17:05 [facility] [employer] Comment: ADDITIONAL INFORMATION This test was developed and its performance characteristics determined by [facility] in a manner consistent with CLIA requirements. This test has not been cleared or approved by the U.S. Food and Drug Administration. Neuronal (V-G) K+ Channel Ab, S 0.00 <=0.02 nmol/L 09/12/2019 17:05 [facility] [employer] Comment: ADDITIONAL INFORMATION This test was developed and its performance characteristics determined by [facility] in a manner consistent with CLIA requirements. This test has not been cleared or approved by the U.S. Food and Drug Administration. Blood VENOUS BLOOD / Unknown Venipuncture / Unknown 08/25/2019 10:32 EST 08/25/2019 11:30 EST Ken Bran MD IMMUNOLOGY AND SE CONTRERAS ORDERABLES [facility] [address] [place] [address] documented in this encounter Visit Diagnoses Diagnosis Weakness- Primary Other malaise and fatigue Fasciculation Abnormal involuntary movements documented in this encounter Care Teams Targeteer Relationship Specialty Start Date End Date Denise Hooker APRN [address] [place] [address] PCP - General 09/13/18 documented as of this encounter
--- OUTSIDE RECORDS SUMMARY | 2024-05-06 04:53 | XMS_ITS | Encounter Summary ---
Author Organization [facility] Address [address] [place] [address] Care Team Providers Care Crusher And Blender Operator Name Role Phone Denise Hooker JENNIFER Primary Care Provider [phone] Reason for Visit * Auth/Cert Specialty Diagnoses / Procedures Referred By [facility] Referred To Contact Diagnoses NSTEMI (non-ST elevated myocardial infarction) ([facility]) NSTEMI Referral ID Status Reason Start Date Expiration Date Visits Re quested Visits Authorized [id number] 1 1 Encounter Details Date Type Department Care Team (Late st Contact Info) Description 03/19/2020 13:00 EDT - 03/19/2020 14:00 EDT Surgery [facility] Invasive Cardiology Unit [address] [place] [address] Nash Herron MD [address] [facility], [address] [place] [address] Left Heart Cath Surgery Details Date/Time Status Location OR Service Patient Class Case Class Case Type Trauma Case? 03/19/20 1300 Posted [facility] Ship Design Teacher Ship Design Teacher 2 Interventional Cardiology Inpatient Panel 1 Procedure [...] Problems and Procedures Admitting Diagnosis: Ventricular tachycardia ([facility]) Final Hospital Diagnosis: NSTEMI, nonsustained ventricular tachycardia Additional Problems Managed in the Hospital Active Hospital Problems Diagnosis Date Noted ??? Type 2 diabetes mellitus with vascular disease ([facility]) 03/19/2020 ??? NSVT (nonsustained ventricular tachycardia) ([facility]) 03/19/2020 ??? Hypertensive disorder 09/07/2009 ??? Diabetes mellitus ([facility]) 09/07/2009 Oral agent - metformin Resolved Hospital Problems Diagnosis Date Noted Date Resolved ??? *NSTEMI (non-ST elevated myocardial infarction) ([facility]) 03/19/2020 03/22/2020 Principal Procedure: Left heart catheterization Date: 03/19/20 Secondary Procedures: Not applicable Hospital Course Claudia Batista is a 64-year-old man with a history of CAD (IL x2, stents x9), HTN, and HLD who was transferred from [facility] on 03/19 for management of NSTEMI. Left heart catheterization was performed and confirmed patent stents and mild coronary artery disease unchanged from prior. He was managed medically with Isordil 5 mg TID, which he tolerated well, inaddition to his PRESS OPERATOR APPRENTICE amlodipine, lisinopril, and metoprolol. This was subsequently [...] 13:00 Office Visit with Letty Mackey MD [facility] Gastroenterology [facility] (--) [address] [facility] [address] Follow-up appointments and procedures Amb Consult/Follow Up [...] blanton changes. I would add the following blnaton elements of the patient's history, physical exam [...] Code Departure Means Destination Home or Self Mcc documented in this encounter Progress Notes * [...] history. Presents as a direct transfer from [facility] for further work-up of a NSTEMI. [...] daily - ticagrelor 90mg BID - continue PRESS OPERATOR APPRENTICE rosuvastatin 40 mg daily NSVT: noted on telemetry overnight following admission. Asymptomatic (pt sleeping). No recurrence. Cardiac MRI obtained 03/21 showing a small infarct in the basilar inferior wall of the LV. - EP consulted, recommendations pending CAD/HTN/HLD -Continue aspirin 81 mg daily -Continue PRESS OPERATOR APPRENTICE amlodipine 10 mg -Continue lisinopril 5 mg daily -Continue metoprolol XL 150 mg daily ?? Type 2 Diabetes: A1c 7.4% on admission, PRESS OPERATOR APPRENTICE insulin regimen 40 units glargine twice daily. - Lantus held last night, currently NPO with elevated AM glucose - When PO, resume Lantus 20U BID + consistent carb diet - POCT Glc Q6 while NPO then before meals and qhs - Sliding scale with aspart Q6 while NPO - Continue to hold PRESS OPERATOR APPRENTICE metformin, dapagliflozin, exenatide ?? Depression/sleep -Continue PRESS OPERATOR APPRENTICE sertraline 50 mg daily -Continue PRESS OPERATOR APPRENTICE trazodone 50 mg daily ?? Diet: NPO [...] history. Presents as a direct transfer from [facility] for further work-up of a NSTEMI. [...] daily - ticagrelor 90mg BID - continue PRESS OPERATOR APPRENTICE rosuvastatin 40 mg daily - replete if Mg <2 or K <4 NSVT: noted on telemetry overnight following admission. Asymptomatic (pt sleeping). No recurrence. - EP consulted - Cardiac MRI - scheduled for today at 1300 - Depending on MRI findings, either d/c with meds + monitor, or consider ICD CAD/HTN/HLD -Continue aspirin 81 mg daily -Continue PRESS OPERATOR APPRENTICE amlodipine 10 mg -Continue lisinopril 5 mg daily -Continue metoprolol XL 150 mg daily ?? Type 2 Diabetes: A1c 7.4% on admission, PRESS OPERATOR APPRENTICE insulin regimen 40 units glargine twice daily. - Currently normoglycemic and NPO, Lantus held - When PO, resume Lantus 20U BID + consistent carb diet - POCT Glc Q6 while NPO then before meals and qhs - Sliding scale with aspart Q6 while NPO - Continue to hold PRESS OPERATOR APPRENTICE metformin, dapagliflozin, exenatide ?? Depression/sleep -Continue PRESS OPERATOR APPRENTICE sertraline 50 mg daily -Continue PRESS OPERATOR APPRENTICE trazodone 50 mg daily ?? Diet: NPO [...] history. Presents as a direct transfer from [facility] for further work-up of a NSTEMI. [...] needed, thus far has not - continue PRESS OPERATOR APPRENTICE rosuvastatin 40 mg daily - replete if Mg <2 or K <4 - Goal SBP <140 and HR <70 NSVT: noted on telemetry overnight following admission. Asymptomatic (pt sleeping). - EP consulted - Cardiac MRI - ordered, to be performed tomorrow CAD/HTN/HLD -Continue aspirin 81 mg daily -Continue PRESS OPERATOR APPRENTICE amlodipine 10 mg -Continue lisinopril 5 mg daily -Continue metoprolol XL 150 mg daily ?? Type 2 Diabetes: A1c 7.4% on admission, PRESS OPERATOR APPRENTICE insulin regimen 40 units glargine twice daily. - Currently NPO and receiving Lantus 20U BID - Continue to hold PRESS OPERATOR APPRENTICE metformin, dapagliflozin, exenatide - Consistent carbohydrate diet when eating - POCT Glc Q6 while NPO then before meals and qhs -Sliding scale with aspart Q6 while NPO ?? Depression/sleep -Continue PRESS OPERATOR APPRENTICE sertraline 50 mg daily -Continue PRESS OPERATOR APPRENTICE trazodone 50 mg daily ?? Diet: NPO [...] 03/21/2020 7:00 * Jo Lee - 03/19/2020 9095 EDT Initial Case Management/Social Work Assessment and Discharge Plan/Readmission Risk Assessment REASON FOR ADMISSION: NSTEMI (non-ST elevated myocardial infarction) ([facility]) Patient understands reason for admission: Yes PATIENT CONTACT INFO VERIFIED: Yes(Sister kala Tirado [phone]) PATIENT ADDRESS VERIFIED: Yes LIVING ARRANGEMENTS AND [...] Chart: Yes, previous copy on file @ [facility] DIRECTIVES FOR FINANCES: TRANSPORTATION: [...] Provider: Denise Hooker PCP Verified: Yes(Denise Hooker, CATALOGUE MAKER) Specialists: Type of Home Health Services: None DME Provider: None Pharmacy: [facility] [address] [facility] [address] [facility] [address] [facility] [address] - [place], [place] - [address] [facility] [address] [facility] [address] [facility] [place], [place] - [address] [facility] [address] [facility] [address] [facility] - [place], [place] - [address] [facility] [address] Home Health: None Other: POST HOSPITAL TRANSITION PLAN: Case management will continue to follow through transition to discharge. Patient's family can provide transportation. Patient is awaiting [facility] and treatment plan. No needs are identified at this time. Patient has Meds to Beds. Jo Lee RN Case Manager #[id number] * Bettie Feliz MD - 03/19/2020 0632 EDT Evidence Specialist Addendum to H&P Mr. Claudia Batista is a 64YOM with PMHx pertinent for HTN, HLD, DMII and CAD (s/p multiple PCIs w/ stenting of LAS and RCA; last PCI to mid LAD 01/2016; LHC w/o flow limiting dx in 11/2018) who presents in transfer from [facility] after episode of jaw pain. This AM after cutting wood and noted the onset of intermittent episodes of achy bilateral jaw pain which improved w/ SL nitrox2 but quickly returned. During this he sought medical attention. At [facility] initial trop was negative with second [...] and/or intervention to the patient (or responsible green party) and have answered the patient's (or responsible green party's)questions. To the best of my knowledge, the patient (or responsible green party) has been adequately informed. The patient (or responsible green party) has consented to the interventional cardiac procedure. As part of the consent we reviewed that, like surgical procedures, interventional procedures require aggressive short term support to determine the potential benefits of the procedures. For this reason, the patient (or responsible green party) has agreed to remain FULL CODE [...] history. Presents as a direct transfer from [facility] for further work-up of a NSTEMI. [...] EMS to present to emergency department at [facility]. Patient reports that this jaw pain [...] RCA; 2003 stents X2 ??? Diabetes mellitus ([facility]) oral agents ??? Diverticulitis ??? Hyperlipidemia ??? Hypertension ??? IL (myocardial infarction) ([facility]) 1992, 2003 ??? Recurrent infections rt foot [...] history. Presents as a direct transfer from [facility] for further work-up of a NSTEMI. [...] gtt - supplemental O2 if needed -Continue PRESS OPERATOR APPRENTICE rosuvastatin 40 mg daily - NPO at midnight for potential intervention ([facility]) or other testing if needed - ordered lipid profile and A1c - echo ordered - replete if Mg <2 or K <4 - Goal SBP <140 and HR <70 CAD/HTN/HLD -Continue aspirin 81 mg daily -Continue PRESS OPERATOR APPRENTICE amlodipine 10 mg -Continue lisinopril 5 mg daily -Continue metoprolol XL 150 mg daily Type 2 Diabetes: A1c ordered, PRESS OPERATOR APPRENTICE insulin regimen 40 units glargine twice daily -Decrease PRESS OPERATOR APPRENTICE insulin regimen to 30 units twice daily -Hold PRESS OPERATOR APPRENTICE metformin 1000 twice daily -Hold PRESS OPERATOR APPRENTICE dapagliflozin 5 mg daily -Hold PRESS OPERATOR APPRENTICE exenatide microspheres - Consistent carbohydrate diet when eating - POCT Glc Q6 while NPO then before meals and qhs -Sliding scale with aspart Q6 while NPO Depression/sleep -Continue PRESS OPERATOR APPRENTICE sertraline 50 mg daily -Continue PRESS OPERATOR APPRENTICE trazodone 50 mg daily Diet: NPO VTE [...] artery Procedure: He was brought to [facility] for the procedure: [...] as well. Nash Herron Jr., MD PagerNumber: [phone] 03/19/2020 15:53 * Shantell Manuel MD - [...] history. Presents as a direct transfer from [facility] for further work-up of a NSTEMI. [...] gtt - supplemental O2 if needed -Continue PRESS OPERATOR APPRENTICE rosuvastatin 40 mg daily - NPO at midnight for potential intervention ([facility]) or other testing if needed - ordered lipid profile and A1c - echo ordered - replete if Mg <2 or K <4 - Goal SBP <140 and HR <70 ?? CAD/HTN/HLD -Continue aspirin 81 mg daily -Continue PRESS OPERATOR APPRENTICE amlodipine 10 mg -Continue lisinopril 5 mg daily -Continue metoprolol XL 150 mg daily ?? Type 2 Diabetes: A1c ordered, PRESS OPERATOR APPRENTICE insulin regimen 40 units glargine twice daily -Decrease PRESS OPERATOR APPRENTICE insulin regimen to 30 units twice daily -Hold PRESS OPERATOR APPRENTICE metformin 1000 twice daily -Hold PRESS OPERATOR APPRENTICE dapagliflozin 5 mg daily -Hold PRESS OPERATOR APPRENTICE exenatide microspheres - Consistent carbohydrate diet when eating - POCT Glc Q6 while NPO then before meals and qhs -Sliding scale with aspart Q6 while NPO ?? Depression/sleep -Continue PRESS OPERATOR APPRENTICE sertraline 50 mg daily -Continue PRESS OPERATOR APPRENTICE trazodone 50 mg daily ?? Diet: NPO [...] PCI's, DM2, HTN, HLD admitted 03/19 from [facility] for NSTEMI. Telemetry demonstrated ~40s of [...] 2004 stents X2 ??? Diabetes mellitus ([facility]) oral agents ??? Diverticulitis ??? Hyperlipidemia ??? Hypertension ??? IL (myocardial infarction) ([facility]) 1992, 2003 ??? Recurrent infections rt foot [...] PCI's, DM2, HTN, HLD admitted 03/19 from [facility] for NSTEMI. Telemetry demonstrated asymptomatic [place] 03/19. Repeat [facility] with unchanged disease. Patient was asymptomatic with episode of VT. No evidence of additional recurrence. No interveable disease. Will need to pursue CMR for further characterization prior to proceeding with consideration of ICD. -CMR -Continue Toprol-XL 150 mg. Will need episodic EKGs going forward to monitor progression of AV block Case discussed with Dr. Thomas Lopez MD Evidence Specialist, PGY-5 Pager [phone] Associated attestation - Bebo Guzman MD - [...] for NSTEMI w/ NSVT. Pt s/p clean [facility]. Pt a/o x 3 and VSS. [...] Jessie Mart RN - 03/20/2020 0212 EDT [id number] Claudia Batista 64 y.o. male Length of [...] 03/19/2020 0040 EDT Data: Patient admitted to [id number] for NSTEMI. On tele patient in first [...] Info) Description 08/08/2024 13:00 EST Office Visit [facility] Gastroenterology - [address] [address] Kera Tatum PA-C [address] [facility], [address] [place] [phone] 11/15/2024 18:30 EDT Office Visit [facility] Cardiology - [address] [place] [address] Davian Almonte MD [address] [facility], [place] [id number] documented as of this encounter Procedures Procedure [...] 8:48 EDT) 04/17/2020 8:48 EDT Scan 2 Ham Rolling Machine Operator PROCEDURE/MINOR MERCEDES GICAL ORDERABLES * ECG REPORT - SCANNED (03/27/2020 10:21 EDT) 03/27/2020 10:2 1 EDT Scan 2 Ham Rolling Machine Operator PROCEDURE/MINOR MERCEDES GICAL ORDERABLES * ECG REPORT - SCANNED (03/27/2020 10:21 EDT) 03/27/2020 10:2 1 EDT Scan 2 Ham Rolling Machine Operator PROCEDURE/MINOR MERCEDES GICAL ORDERABLES * (ABNORMAL) POCT GLUCOSE, INTERFACED (03/22/2020 11:18 EDT) Glucose, POC 135(H) 70 - 100 mg/dL 03/22/2020 11:23 EDT [facility] screen cleaner ID [id number] 03/22/2020 11:23 EDT [facility] HN LAB POC COMMENT (GLUCOSE) Test Performed by Nursing Services 03/22/2020 11:23 EDT [facility] Blood CAPILLARY BLOOD / Unknown 03/22/2020 11:18 EDT 03/22/2020 11:23 EDT Joesph Wesley MD POINT OF CARE TEST O RDERABLES [facility] [address] [place] [address] * (ABNORMAL) POCT GLUCOSE, INTERFACED (03/22/2020 5:55 EDT) Glucose, POC 131(H) 70 - 100 mg/dL 03/22/2020 5:55 EDT [facility] screen cleaner ID [id number] 03/22/2020 5:55 EDT [facility] HN LAB POC COMMENT (GLUCOSE) Test Performed by Nursing Services 03/22/2020 5:55 EDT [facility] Blood CAPILLARY BLOOD / Unknown 03/22/2020 5:55 EDT 03/22/2020 5:55 EDT Joesph Wesley MD POINT OF CARE TEST O RDERABLES [facility] [address] [place] [address] * POCT GLUCOSE, INTERFACED (03/21/2020 20:11 EDT) Glucose, POC 94 70 - 100 mg/dL 03/21/2020 20:12 EDT [facility] screen cleaner ID [id number] 03/21/2020 20:12 EDT [facility] HN LAB POC COMMENT (GLUCOSE) Test Performed by Nursing Services 03/21/2020 20:12 EDT [facility] Blood CAPILLARY BLOOD / Unknown 03/21/2020 20:11 EDT 03/21/2020 20:12 EDT Joesph Wesley MD POINT OF CARE TEST O RACHEL Performing Organization Address [facility] Co de Phone Number [facility] [address] [place] [address] * (ABNORMAL) POCT GLUCOSE, INTERFACED (03/21/2020 17:21 EDT) Glucose, POC 199(H) 70 - 100 mg/dL 03/21/2020 17:22 EDT [facility] screen cleaner ID [id number] 03/21/2020 17:22 EDT [facility] HN LAB POC COMMENT (GLUCOSE) Test Performed by Nursing Services 03/21/2020 17:22 EDT [facility] Blood CAPILLARY BLOOD / Unknown 03/21/2020 17:21 EDT 03/21/2020 17:22 EDT Joesph Wesley MD POINT OF CARE TEST O RACHEL Performing Organization Address City/[facility]/ZIP Co de Phone Number [facility] [address] [place] [address] * MR CARDIAC W WO CONTRAST (03/21/2020 [...] Minimal hypokinesis inferior wall. Mid heart: normal. Franklin: normal. The left ventricular chamber is normal [...] Minimal hypokinesis inferior wall. Mid heart: normal. Franklin: normal. The left ventricular chamber is normal [...] 70 - 100 mg/dL 03/21/2020 12:18 EDT [facility] screen cleaner ID [id number] 03/21/2020 12:18 EDT [facility] HN LAB POC COMMENT (GLUCOSE) Test Performed by Nursing Services 03/21/2020 12:18 EDT [facility] Blood CAPILLARY BLOOD / Unknown 03/21/2020 12:03 EDT 03/21/2020 12:18 EDT Joesph Wesley MD POINT OF CARE TEST O RDERABLES Performing Organization Address [facility]/ZIP Co de Phone Number [facility] [address] [place] [address] * CREATININE (03/21/2020 5:59 EDT) Creatinine 0.71 0.66 - 1.25 mg/dL 03/21/2020 6:46 EDT [facility] eGFR 98 >60 mL/min/1.7 3m2 03/21/2020 6:46 EDT [facility] Comment:eGFR calculated rut yadav CKD-EPI equation for non- Americans. Multiply eGFR by 1.16 for patients. Blood VENOUS BLOOD / Unknown Venipuncture / Unknown 03/21/2020 5:59 EDT 03/21/2020 6:14 EDT Joesph Wesley MD CHEMISTRY & BLOOD GA S ORDERABLES Performing Organization Address City/[facility]/ZIP Co de Phone Number [facility] [address] [place] [address] * ELECTROLYTES (03/21/2020 5:59 EDT) Sodium 141 136 - 145 mEq/L 03/21/2020 6:46 EDT [facility] Potassium 4.7 3.5 - 5.0 mEq/L 03/21/2020 6:46 EDT [facility] Chloride 100 96 - 110 mEq/L 03/21/2020 6:46 T [facility] CO2 Total 28 22 - 32 mEq/L 03/21/2020 6:46 [facility] Blood VENOUS BLOOD / Unknown Venipuncture / Unknown 03/21/2020 5:59 EDT 03/21/2020 6:14 EDT Joesph Wesley MD CHEMISTRY & BLOOD GA S ORDERABLES [facility] [address] [place] [address] * COMPLETE BLOOD COUNT (03/21/2020 5:59 EDT) WBC 6.44 4.00 - 10.40 K/cmm 03/21/2020 6:25 [facility] RBC 5.16 4.36 - 5.78 M/cmm 03/21/2020 6:25 [facility] Hemoglobin 14.4 13.8 - 17.3 gm/dL 03/21/2020 6:25 [facility] HCT 43.1 39.5 - 50.2 % 03/21/2020 6:25 [facility] MCV 84 81 - 95 fl 03/21/2020 6:25 [facility] MCH 27.9 27.6 - 33.0 pg 03/21/2020 6:25 [facility] MCHC 33.4 32.8 - 36.4 gm/dL 03/21/2020 6:25 [facility] RDW-CV 13.5 <14.2 % 03/21/2020 6:25 [facility] RDW-SD 41.6 <46.0 fl 03/21/2020 6:25 [facility] PLT 223 141 - 377 K/cmm 03/21/2020 6:25 [facility] MPV 10.1 9.5 - 12.7 fl 03/21/2020 6:25 [facility] Blood VENOUS BLOOD / Unknown Venipuncture / Unknown 03/21/2020 5:59 EDT 03/21/2020 6:17 EDT Joesph Wesley MD HEMATOLOGY & PF4 ORD ERABLES [facility] [address] [place] [address] * (ABNORMAL) POCT GLUCOSE, INTERFACED (03/21/2020 5:58 EDT) Glucose, POC 117(H) 70 - 100 mg/dL 03/21/2020 5:59 EDT [facility] screen cleaner ID [id number] 03/21/2020 5:59 EDT [facility] HN LAB POC COMMENT (GLUCOSE) Test Performed by Nursing Services 03/21/2020 5:59 EDT [facility] Blood CAPILLARY BLOOD / Unknown 03/21/2020 5:58 EDT 03/21/2020 5:59 EDT Joesph Wesley MD POINT OF CARE TEST O RDDAYANARA [facility] [address] [place] [address] * (ABNORMAL) POCT GLUCOSE, INTERFACED (03/20/2020 20:23 EDT) Glucose, POC 109(H) 70 - 100 mg/dL 03/20/2020 20:38 EDT [facility] screen cleaner ID [id number] 03/20/2020 20:38 EDT [facility] HN LAB POC COMMENT (GLUCOSE) Test Performed by Nursing Services 03/20/2020 20:38 EDT [facility] Blood CAPILLARY BLOOD / Unknown 03/20/2020 20:23 EDT 03/20/2020 20:37 EDT Shantell Manuel MD POINT OF CARE TEST O RDERABLES [facility] [address] [place] [address] * (ABNORMAL) POCT GLUCOSE, INTERFACED (03/20/2020 16:53 EDT) Glucose, POC 119(H) 70 - 100 mg/dL 03/20/2020 16:59 EDT [facility] screen cleaner ID [id number] 03/20/2020 16:59 EDT [facility] HN LAB POC COMMENT (GLUCOSE) Test Performed by Nursing Services 03/20/2020 16:59 EDT [facility] Blood CAPILLARY BLOOD / Unknown 03/20/2020 16:53 EDT 03/20/2020 16:59 EDT Joesph Wesley MD POINT OF CARE TEST O RDERABENITO Performing Organization Address City/[facility]/ZIP Co de Phone Number [facility] [address] [place] [address] * (ABNORMAL) POCT GLUCOSE, INTERFACED (03/20/2020 12:23 EDT) Glucose, POC 115(H) 70 - 100 mg/dL 03/20/2020 12:24 EDT [facility] screen cleaner ID [id number] 03/20/2020 12:24 EDT [facility] HN LAB POC COMMENT (GLUCOSE) Test Performed by Nursing Services 03/20/2020 12:24 EDT [facility] Blood CAPILLARY BLOOD / Unknown 03/20/2020 12:23 EDT 03/20/2020 12:24 EDT Joesph Wesley MD POINT OF CARE TEST O BEANERABENITO Performing Organization Address City/[facility]/ZIP Co de Phone Number [facility] [address] [place] [address] * (ABNORMAL) POCT GLUCOSE, INTERFACED (03/20/2020 6:00 EDT) Glucose, POC 103(H) 70 - 100 mg/dL 03/20/2020 6:04 EDT [facility] screen cleaner ID [id number] 03/20/2020 6:04 EDT [facility] HN LAB POC COMMENT (GLUCOSE) Test Performed by Nursing Services 03/20/2020 6:04 EDT [facility] Blood CAPILLARY BLOOD / Unknown 03/20/2020 6:00 EDT 03/20/2020 6:04 EDT Shantell Manuel MD POINT OF CARE TEST O RDERABLES Performing Organization Address City/[facility]/ZIP Co de Phone Number [facility] [address] [place] [address] * (ABNORMAL) POCT GLUCOSE, INTERFACED (03/20/2020 3:08 EDT) Pathologist [facility] Glucose, POC 108(H) 70 - 100 mg/dL 03/20/2020 3:09 EDT [facility] screen cleaner ID [id number] 03/20/2020 3:09 EDT [facility] HN LAB POC COMMENT (GLUCOSE) Test Performed by Nursing Services 03/20/2020 3:09 EDT [facility] Blood CAPILLARY BLOOD / Unknown 03/20/2020 3:08 EDT 03/20/2020 3:09 EDT Joesph Wesley MD POINT OF CARE TEST O RACHEL Performing Organization Address [facility] Co de Phone Number [facility] [address] [place] [address] * (ABNORMAL) TROPONIN I (03/20/2020 2:11 EDT) [facility] Troponin I (ng/mL) 0.140(H) <0.034 ng/mL 03/20/2020 2:54 EDT [facility] Blood VENOUS BLOOD / Unknown Venipuncture / Unknown 03/20/2020 2:11 EDT 03/20/2020 2:15 EDT Narrative [facility] - 03/20/2020 2:54 EDT The results of this assay can be falsely lowered due to the consumption of Biotin. Joesph Wesley MD CHEMISTRY & BLOOD GA S ORDERABLES Performing Organization Address City/[facility]/ZIP Co de Phone Number [facility] [address] [place] [address] * CREATININE (03/20/2020 2:11 EDT) Creatinine 0.79 0.66 - 1.25 mg/dL 03/20/2020 2:40 EDT [facility] eGFR 94 >60 mL/min/1.7 3m2 03/20/2020 2:40 EDT [facility] Comment:eGFR calculated rut yadav CKD-EPI equation for non- Americans. Multiply eGFR by 1.16 for patients. Blood VENOUS BLOOD / Unknown Venipuncture / Unknown 03/20/2020 2:11 EDT 03/20/2020 2:15 EDT Joesph Wesley MD CHEMISTRY & BLOOD GA S ORDERABLES Performing Organization Address [facility] Co de Phone Number [facility] [address] [place] [address] * ELECTROLYTES (03/20/2020 2:11 EDT) Sodium 138 136 - 145 mEq/L 03/20/2020 2:40 EDT [facility] Potassium 4.3 3.5 - 5.0 mEq/L 03/20/2020 2:40 EDT [facility] Chloride 99 96 - 110 mEq/L 03/20/2020 2:40 EDT [facility] CO2 Total 30 22 - 32 mEq/L 03/20/2020 2:40 EDT [facility] Blood VENOUS BLOOD / Unknown Venipuncture / Unknown 03/20/2020 2:11 EDT 03/20/2020 2:15 EDT Joesph Wesley MD CHEMISTRY & BLOOD GA S ORDERABLES [facility] [address] [place] [address] * COMPLETE BLOOD COUNT (03/20/2020 2:11 EDT) WBC 8.07 4.00 - 10.40 K/cmm 03/20/2020 2:21 EDT [facility] RBC 5.09 4.36 - 5.78 M/cmm 03/20/2020 2:21 EDT [facility] Hemoglobin 14.1 13.8 - 17.3 gm/dL 03/20/2020 2:21 EDT [facility] HCT 42.2 39.5 - 50.2 % 03/20/2020 2:21 EDT [facility] MCV 83 81 - 95 fl 03/20/2020 2:21 EDT [facility] MCH 27.7 27.6 - 33.0 pg 03/20/2020 2:21 EDT [facility] MCHC 33.4 32.8 - 36.4 gm/dL 03/20/2020 2:21 EDT [facility] RDW-CV 13.7 <14.2 % 03/20/2020 2:21 T [facility] RDW-SD 41.1 <46.0 fl 03/20/2020 2:21 EDT [facility] PLT 212 141 - 377 K/cmm 03/20/2020 2:21 T [facility] MPV 10.2 9.5 - 12.7 fl 03/20/2020 2:21 EDT [facility] Blood VENOUS BLOOD / Unknown Venipuncture / Unknown 03/20/2020 2:11 EDT 03/20/2020 2:15 EDT Joesph Wesley MD HEMATOLOGY & PF4 ORD ERABLES [facility] [address] [place] [address] * POCT GLUCOSE, INTERFACED (03/19/2020 23:37 EDT) Glucose, POC 79 70 - 100 mg/dL 03/19/2020 23:42 EDT [facility] screen cleaner ID [id number] 03/19/2020 23:42 EDT [facility] HN LAB POC COMMENT (GLUCOSE) Test Performed by Nursing Services 03/19/2020 23:42 EDT [facility] Blood CAPILLARY BLOOD / Unknown 03/19/2020 23:37 EDT 03/19/2020 23:42 EDT Joesph Wesley MD POINT OF CARE TEST O RDERABLES [facility] [address] [place] [address] * (ABNORMAL) POCT GLUCOSE, INTERFACED (03/19/2020 21:00 EDT) Glucose, POC 144(H) 70 - 100 mg/dL 03/19/2020 21:01 EDT [facility] screen cleaner ID [id number] 03/19/2020 21:01 EDT [facility] HN LAB POC COMMENT (GLUCOSE) Test Performed by Nursing Services 03/19/2020 21:01 EDT [facility] Blood CAPILLARY BLOOD / Unknown 03/19/2020 21:00 EDT 03/19/2020 21:00 EDT Shantell Manuel MD POINT OF CARE TEST O RDERABLES [facility] [address] [place] [address] * POCT GLUCOSE, INTERFACED (03/19/2020 18:00 EDT) Glucose, POC 81 70 - 100 mg/dL 03/19/2020 18:00 EDT [facility] screen cleaner ID [id number] 03/19/2020 18:00 EDT [facility] HN LAB POC COMMENT (GLUCOSE) Test Performed by Nursing Services 03/19/2020 18:00 EDT [facility] Blood CAPILLARY BLOOD / Unknown 03/19/2020 18:00 EDT 03/19/2020 18:00 EDT Joesph Wesley MD POINT OF CARE TEST O RDERABLES [facility] [address] [place] [address] * (ABNORMAL) TROPONIN I (03/19/2020 17:56 EDT) Troponin I (ng/mL) 0.151(H) <0.034 ng/mL 03/19/2020 18:53 EDT [facility] Blood VENOUS BLOOD / Unknown Venipuncture / Unknown 03/19/2020 17:56 EDT 03/19/2020 18:12 EDT Narrative [facility] - 03/19/2020 18:53 EDT The results of this assay can be falsely lowered due to the consumption of Biotin. Joesph Wesley MD CHEMISTRY & BLOOD GA S ORDERABLES [facility] [address] [place] [address] * LEFT HEART CATH (03/19/2020 16:03 EDT) Anatomical Region Laterality Modality Ship Design Teacher 03/19/2020 15:0 9 EDT Narrative 03/21/2020 10:30 EDT Cardiology [address] [place] [address] Catheterization Laboratory Study Patient: Claudia Batista ? Study Date: ?03/19/2020 ?Accession #: ? [id number] : ? 1955 Referring: Joesph Wesley Diagnostic [...] Right radial artery access. A 6 Fr/10/.021 Force Sheath SLENDER ?? sheath was advanced into [...] color Doppler.The study was interpreted by [facility]. Pertinent images [...] 70 - 100 mg/dL 03/19/2020 11:53 EDT [facility] screen cleaner ID [id number] 03/19/2020 11:53 T [facility] HN LAB POC COMMENT (GLUCOSE) Test Performed by Nursing Services 03/19/2020 11:53 T [facility] Blood CAPILLARY BLOOD / Unknown 03/19/2020 11:52 EDT 03/19/2020 11:53 EDT Joesph Wesley MD POINT OF CARE TEST O RDERABLES Performing Organization Address [facility] Co de Phone Number [facility] [address] [place] [address] * HEPARIN LEVEL - UNFRACTIONATED HEPARIN (03/19/2020 9:02 EDT) Heparin Level-UFH 0.36 Therapeutic Range: 0.30 - 0.70 IU/mL 03/19/2020 9:35 EDT [facility] Comment:Unfractionated hepar in therapeutic range [...] & PF4 ORD ERABLES Performing Organization Address [facility] de Phone Number [facility] [address] [place] [address] * (ABNORMAL) TROPONIN I (03/19/2020 9:01 EDT) Troponin I (ng/mL) 0.191(H) <0.034 ng/mL 03/19/2020 10:49 EDT [facility] Blood VENOUS BLOOD / Unknown Venipuncture / Unknown 03/19/2020 9:01 EDT 03/19/2020 10:09 EDT Narrative [facility] - 03/19/2020 10:49 EDT The results of this assay can be falsely lowered due to the consumption of Biotin. Joesph Wesley MD CHEMISTRY & BLOOD GA S ORDERABLES Performing Organization Address [facility] Co de Phone Number [facility] [address] [place] [address] * (ABNORMAL) POCT GLUCOSE, INTERFACED (03/19/2020 6:51 EDT) Glucose, POC 128(H) 70 - 100 mg/dL 03/19/2020 6:53 EDT [facility] screen cleaner ID [id number] 03/19/2020 6:53 EDT [facility] HN LAB POC COMMENT (GLUCOSE) Test Performed by Nursing Services 03/19/2020 6:53 EDT [facility] Blood CAPILLARY BLOOD / Unknown 03/19/2020 6:51 EDT 03/19/2020 6:53 EDT Robinson arriaga Sa, MD POINT OF CARE T EST ORDERABLES [facility] [address] [place] [address] * COMPLETE BLOOD COUNT (03/19/2020 5:46 EDT) [facility] WBC 7.59 4.00 - 10.40 K/cmm 03/19/2020 6:36 [facility] RBC 5.13 4.36 - 5.78 M/cmm 03/19/2020 6:36 [facility] Hemoglobin 14.4 13.8 - 17.3 gm/dL 03/19/2020 6:36 [facility] HCT 42.2 39.5 - 50.2 % 03/19/2020 6:36 [facility] MCV 82 81 - 95 fl 03/19/2020 6:36 [facility] MCH 28.1 27.6 - 33.0 pg 03/19/2020 6:36 [facility] MCHC 34.1 32.8 - 36.4 gm/dL 03/19/2020 6:36 [facility] RDW-CV 13.8 <14.2 % 03/19/2020 6:36 [facility] RDW-SD 40.7 <46.0 fl 03/19/2020 6:36 [facility] PLT 256 141 - 377 K/cmm 03/19/2020 6:36 EDT [facility] MPV 11.1 9.5 - 12.7 fl 03/19/2020 6:36 EDT [facility] Blood VENOUS BLOOD / Unknown Venipuncture / Unknown 03/19/2020 5:46 EDT 03/19/2020 6:21 EDT Joesph Wesley MD HEMATOLOGY & PF4 ORD ERABLES Performing Organization Address [facility] Co de Phone Number [facility] [address] [place] [address] * POCT GLUCOSE, INTERFACED (03/19/2020 2:56 EDT) Glucose, POC 88 70 - 100 mg/dL 03/19/2020 2:56 EDT [facility] screen cleaner ID [id number] 03/19/2020 2:56 EDT [facility] HN LAB POC COMMENT (GLUCOSE) Test Performed by Nursing Services 03/19/2020 2:56 EDT [facility] Blood CAPILLARY BLOOD / Unknown 03/19/2020 2:56 EDT 03/19/2020 2:56 EDT Joesph Wesley MD POINT OF CARE TEST O RDERABLES Performing Organization Address [facility] de Phone Number [facility] [address] [place] [address] * (ABNORMAL) HEMOGLOBIN A1C (03/19/2020 1:51 EDT) Hemoglobin A1c 7.4(H) <5.7 % 03/19/2020 8:30 EDT [facility] Comment: Glycemic Status References: [...] Avg Glucose 166 mg/dL 0 8:30 EDT [facility] Comment:The eAG represents t he A1c result expressed as average glucose in mg/dL. Blood VENOUS BLOOD / Unknown Venipuncture / Unknown 03/19/2020 1:51 EDT 03/19/2020 1:55 EDT Joesph Wesley MD CHEMISTRY & BLOOD GA S ORDERABLES Performing Organization Address [facility] Co de Phone Number [facility] [address] [place] [address] * (ABNORMAL) TROPONIN I (03/19/2020 1:51 EDT) Troponin I (ng/mL) 0.214(H) <0.034 ng/mL 03/19/2020 2:32 EDT [facility] Blood VENOUS BLOOD / Unknown Venipuncture / Unknown 03/19/2020 1:51 EDT 03/19/2020 1:55 EDT Narrative [facility] - 03/19/2020 2:32 EDT The results of this assay can be falsely lowered due to the consumption of Biotin. Joesph Wesley MD CHEMISTRY & BLOOD GA S ORDERABLES Performing Organization Address [facility] Co de Phone Number [facility] [address] [place] [address] * CREATININE (03/19/2020 1:51 EDT) Creatinine 0.69 0.66 - 1.25 mg/dL 03/19/2020 2:18 EDT [facility] eGFR 100 >60 mL/min/1.7 3m2 03/19/2020 2:18 EDT [facility] Comment:eGFR calculated rut yadav CKD-EPI equation for non- Americans. Multiply eGFR by 1.16 for patients. Blood VENOUS BLOOD / Unknown Venipuncture / Unknown 03/19/2020 1:51 EDT 03/19/2020 1:55 EDT Joesph Wesley MD CHEMISTRY & BLOOD GA S ORDERABLES Performing Organization Address [facility] de Phone Number [facility] [address] [place] [address] * ELECTROLYTES (03/19/2020 1:51 EDT) Sodium 140 136 - 145 mEq/L 03/19/2020 2:18 EDT [facility] Potassium 3.8 3.5 - 5.0 mEq/L 03/19/2020 2:18 EDT [facility] Chloride 100 96 - 110 mEq/L 03/19/2020 2:18 EDT [facility] CO2 Total 28 22 - 32 mEq/L 03/19/2020 2:18 EDT [facility] Blood VENOUS BLOOD / Unknown Venipuncture / Unknown 03/19/2020 1:51 EDT 03/19/2020 1:55 EDT Joesph Wesley MD CHEMISTRY & BLOOD GA S ORDERABLES Performing Organization Address [facility] de Phone Number [facility] [address] [place] [address] * COMPLETE BLOOD COUNT (03/19/2020 1:51 EDT) WBC 8.25 4.00 - 10.40 K/cmm 03/19/2020 2:04 EDT [facility] RBC 5.05 4.36 - 5.78 M/cmm 03/19/2020 2:04 EDT [facility] Hemoglobin 14.4 13.8 - 17.3 gm/dL 03/19/2020 2:04 EDT [facility] HCT 41.5 39.5 - 50.2 % 03/19/2020 2:04 EDT [facility] MCV 82 81 - 95 fl 03/19/2020 2:04 EDT [facility] MCH 28.5 27.6 - 33.0 pg 03/19/2020 2:04 EDT [facility] MCHC 34.7 32.8 - 36.4 gm/dL 03/19/2020 2:04 EDT [facility] RDW-CV 13.7 <14.2 % 03/19/2020 2:04 EDT [facility] RDW-SD 40.5 <46.0 fl 03/19/2020 2:04 EDT [facility] PLT 234 141 - 377 K/cmm 03/19/2020 2:04 EDT [facility] MPV 10.0 9.5 - 12.7 fl 03/19/2020 2:04 EDT [facility] Blood VENOUS BLOOD / Unknown Venipuncture / Unknown 03/19/2020 1:51 EDT 03/19/2020 1:55 EDT Joesph Wesley MD HEMATOLOGY & PF4 ORD ERABLES Performing Organization Address City/[facility] Co de Phone Number [facility] [address] [place] [address] * HEPARIN LEVEL - UNFRACTIONATED HEPARIN (03/19/2020 1:51 EDT) Heparin Level-UFH 0.24 Therapeutic Range: 0.30 - 0.70 IU/mL 03/19/2020 2:16 EDT [facility] Blood VENOUS BLOOD / Unknown Venipuncture / Unknown 03/19/2020 1:51 EDT 03/19/2020 1:55 EDT Narrative [facility] - 03/19/2020 2:16 EDT Sample retested, result confirmed Ash Cruz MD HEMATOLOGY & PF4 OR DERABLES Performing Organization Address [facility] Co de Phone Number [facility] [address] [place] [address] * EKG 12-LEAD (03/19/2020 0:10 EDT) 03/19/2020 0:10 EDT Narrative [facility] EKG - 04/17/2020 8:44 EDT ? [facility] ? Test Date: ?2020-03-19 Pat Name: ? CLAUDIA BATISTA ? Department: ?? [place] [address] ? Room: ? [id number] Gender: ? Male ? Wiping Rag Washer: ?? [id number] : ?1955 ? Requested By: JULIAN Acuna Order Number: [id number] ? Reading MD: ?? ANETA HAN MD ? Measurements Intervals ?[place] ? Rate: ? 72 ? P: ?50 RI: ? 214 ?QRS: ?69 QRSD: ? 125 [...] Note Aneta Han MD - 04/17/2020 [facility] Test Date: 2020-03-19 Pat Name: CLAUDIA BATISTA Department: [place] [address] Room: [facility] Gender: Male Wiping Rag Washer: [id number] : 1955 Requested By: JULIAN Acuna Order Number: [id number] Reading MD: ANETA HAN MD Measurements Intervals [place] Rate: 72 P: 50 RI: 214 QRS: 69 QRSD: 125 T: 6 [...] Ash Cruz MD CARDIAC ECG ORDERAB LES [facility] EKG * POCT GLUCOSE, INTERFACED (03/18/2020 23:20 EDT) Glucose, POC 98 70 - 100 mg/dL 03/18/2020 23:21 EDT [facility] screen cleaner ID [id number] 03/18/2020 23:21 EDT [facility] HN LAB POC COMMENT (GLUCOSE) Test Performed by Nursing Services 03/18/2020 23:21 EDT [facility] Blood CAPILLARY BLOOD / Unknown 03/18/2020 23:20 EDT 03/18/2020 23:21 EDT Ash Cruz MD POINT OF CARE TEST ORDERABLES Performing Organization Address City/State/[facility] Co de Phone Number [facility] [address] [place] [id number] documented in this encounter Visit Diagnoses Not [...] dose, Starting on Thu03/19/20 at 1508, Until Thu03/22/20 at 1822 lisinopriL (PRINIVIL) tablet 5 mg [...] not met)1119 (Not Given - Provider: Jayashree sEpitia RN - Reason: Order parameters not met [...] RN) [id number] (Given - Provider: Roya Hall, JANNY)[id number] (Not Given - Provider: Roya Hall RN [...] Date First Orde red Date CASE REQUEST INSPECTOR ASSEMBLIES AND INSTALLATIONS 1 03/19/2020 documented in this encounter Care Teams Crusher And Blender Operator Relationship Specialty Start Date End Date Denise Hooker APRN [address] [place] [address] PCP - General 09/13/18 documented as of this encounter
--- OUTSIDE RECORDS SUMMARY | 2024-05-06 04:53 | XMS_ITS | Encounter Summary ---
Author Organization [facility] Address [address] [place] [address] Care Team Providers Care Medical Territory Manager Name Role Phone Denise Hooker JENNIFER Primary Care Provider +[phone] Encounter Details Date Type Department Care Team ([facility] st Contact Info) Description 08/25/2019 10:30 EST Phlebotomy Only [facility] ED Center 2 Phlebotomy [address] [place], [place] [address] Senior Firewall Engineer, Acc Phlebotomy Weakness; Fasciculation Social History [...] Visit [facility] Gastroenterology - [facility] [address] [place], [place] [address] Kera Tatum PA-C 111 [facility], [address] 5 [place] [phone] 11/15/2024 18:30 EDT Office Visit [facility] Cardiology - [address] [place], [place] [phone] Davian Almonte MD [address] [place], [place] [phone] documented as of this encounter Procedures Procedure Name Priority Date/Time Associated Diagnosis Comments PARANEOPL AUTO ANTIBODY, SERUM Routine 08/25/2019 10:32 EST Weakness Fasciculation T4 FREE Routine 08/25/2019 10:32 EST Weakness Fasciculation CK Routine 08/25/2019 10:32 EST Weakness Fasciculation documented in this encounter Results * T4 FREE (08/25/2019 10:32 EST) T4, Free 1.2 0.8 - 2.2 ng/dL 08/25/2019 12:20 EST [facility] Blood VENOUS BLOOD / Unknown Venipuncture / Unknown 08/25/2019 10:32 EST 08/25/2019 11:30 EST Ken Bran MD CHEMISTRY & BLOOD GAS ORDERABLES [facility] [address] [place] [address] * CK (08/25/2019 10:32 EST) CK 107 <=250 U/L 08/25/2019 12:01 EST [facility] Blood VENOUS BLOOD / Unknown Venipuncture / Unknown 08/25/2019 10:32 EST 08/25/2019 11:30 EST Ken Bran MD CHEMISTRY & BLOOD GAS ORDERABLES [facility] [address] [place] [address] * PARANEOPL AUTO ANTIBODY, SERUM (08/25/2019 10:32 EST) Interpretive Comments SEE NOTE 09/12/2019 17:05 [facility] Comment: No informative autoantibodies were detected in the Paraneoplastic Evaluation. However, a negative result does not exclude neurological autoimmunity with or without associated neoplasia. Sensitivity and specificity of antibody testing are enhanced by testing both serum and CSF. LEISA-1, S Negative <1:240 titer 09/12/2019 17:05 [facility] Reflex Added None. 09/12/2019 17:05 [facility] Comment: ADDITIONAL INFORMATION This test was developed and its performance characteristics determined by [facility] in a manner consistent with CLIA requirements. This test has not been cleared or approved by the U.S. Food and Drug Administration. LEISA-2, S Negative <1:240 titer 09/12/2019 17:05 [facility] [email or web address] Comment: ADDITIONAL INFORMATION This test was developed and its performance characteristics determined by [facility] in a manner consistent with CLIA requirements. This test has not been cleared or approved by the U.S. Food and Drug Administration. LEISA-3, S Negative <1:240 titer 09/12/2019 17:05 [facility] [email or web address] Comment: ADDITIONAL INFORMATION This test was developed and its performance characteristics determined by [facility] in a manner consistent with CLIA requirements. This test has not been cleared or approved by the U.S. Food and Drug Administration. AGNA-1, S Negative <1:240 titer 09/12/2019 17:05 [facility] [email or web address] Comment: ADDITIONAL INFORMATION This test was developed and its performance characteristics determined by [facility] in a manner consistent with CLIA requirements. This test has not been cleared or approved by the U.S. Food and Drug Administration. PROFESSOR OF FINANCE-1, S Negative <1:240 titer 09/12/2019 17:05 [facility] [email or web address] Comment: ADDITIONAL INFORMATION This test was developed and its performance characteristics determined by [facility] in a manner consistent with CLIA requirements. This test has not been cleared or approved by the U.S. Food and Drug Administration. PROFESSOR OF FINANCE-2, S Negative <1:240 titer 09/12/2019 17:05 [facility] [email or web address] Comment: ADDITIONAL INFORMATION This test was developed and its performance characteristics determined by [facility] in a manner consistent with CLIA requirements. This test has not been cleared or approved by the U.S. Food and Drug Administration. PROFESSOR OF FINANCE-Tr, S Negative <1:240 titer 09/12/2019 17:05 [facility] [email or web address] Comment: ADDITIONAL INFORMATION This test was developed and its performance characteristics determined by [facility] in a manner consistent with CLIA requirements. This test has not been cleared or approved by the U.S. Food and Drug Administration. Amphiphysin Ab, S Negative <1:240 titer 09/12/2019 17:05 [facility] [email or web address] Comment: ADDITIONAL INFORMATION This test was developed and its performance characteristics determined by [facility] in a manner consistent with CLIA requirements. This test has not been cleared or approved by the U.S. Food and Drug Administration. CRMP-5-IgG, S Negative <1:240 titer 09/12/2019 17:05 [facility] [email or web address] Comment: ADDITIONAL INFORMATION This test was developed and its performance characteristics determined by [facility] in a manner consistent with CLIA requirements. This test has not been cleared or approved by the U.S. Food and Drug Administration. Striational (Striated Muscle) Ab, S Negative <1:120 titer 09/12/2019 17:05 [facility] [email or web address] Comment: ADDITIONAL INFORMATION This test was developed and its performance characteristics determined by [facility] in a manner consistent with CLIA requirements. This test has not been cleared or approved by the U.S. Food and Drug Administration. Test Performed by: [facility] [place] [address] Plant Maintenance Technician: Chon Carrera M.D. Ph.D.; CLIA# [id number] P/Q-Type Calcium Channel Ab 0.00 <=0.02 nmol/L 09/12/2019 17:05 [facility] [email or web address] Comment: ADDITIONAL INFORMATION This test was developed and its performance characteristics determined by [facility] in a manner consistent with CLIA requirements. This test has not been cleared or approved by the U.S. Food and Drug Administration. N-Type Calcium Channel Ab 0.00 <=0.03 nmol/L 09/12/2019 17:05 EST [facility] [email or web address] Comment: ADDITIONAL INFORMATION This test was developed and its performance characteristics determined by [facility] in a manner consistent with CLIA requirements. This test has not been cleared or approved by the U.S. Food and Drug Administration. AChR Ganglionic Neuronal Ab, S 0.00 <=0.02 nmol/L 09/12/2019 17:05 EST [facility] [email or web address] Comment: ADDITIONAL INFORMATION This test was developed and its performance characteristics determined by [facility] in a manner consistent with CLIA requirements. This test has not been cleared or approved by the U.S. Food and Drug Administration. Neuronal (V-G) K+ Channel Ab, S 0.00 <=0.02 nmol/L 09/12/2019 17:05 EST [facility] [email or web address] Comment: ADDITIONAL INFORMATION This test was developed and its performance characteristics determined by [facility] in a manner consistent with CLIA requirements. This test has not been cleared or approved by the U.S. Food and Drug Administration. Blood VENOUS BLOOD / Unknown Venipuncture / Unknown 08/25/2019 10:32 EST 08/25/2019 11:30 EST Ken Bran MD IMMUNOLOGY AND SE CONTRERAS ORDERABLES [facility] [address] [place] [address] documented in this encounter Visit Diagnoses Diagnosis Weakness Other malaise and fatigue Fasciculation Abnormal involuntary movements documented in this encounter Care Teams Medical Territory Manager Relationship Specialty Start Date End Date Denise Hooker APRN [address] [place] [address] PCP - General 09/13/18 documented as of this encounter
--- OUTSIDE RECORDS SUMMARY | 2024-05-06 04:53 | XMS_ITS | Encounter Summary ---
Author Organization [facility] Address [address] [place] [address] Care Team Providers Care Flash Welder Name Role Phone MorroDenise JENNIFER Primary Care Provider [phone] Encounter Details Date Type Department Care Team ([facility] Contact Info) Description 08/25/2019 Lab Requisition [facility] Pathology & Laboratory Medicine - [facility] [address] [place] [address] Unknown, Provider, Social History Tobacco Use Types [...] Visit [facility] Gastroenterology - [facility] [address] [place], [place] [phone] Kera Tatum PA-C 111 [facility], [facility], [address] [place] [address] 11/15/2024 18:30 EDT Office Visit [facility] Cardiology - [place] [address] [place], [place] [phone] Davian Almonte MD [address] [place] [phone] documented as of this encounter Procedures Procedure Name Priority Date/Time Associated Diagnosis Comments OVA/PARASITE EXAM Routine 08/24/2019 6:15 EST documented in this encounter Results * OVA/PARASITE EXAM (08/24/2019 6:15 EST) Parasite No ova and parasites seen. 08/26/2019 11:[address] [facility] Feces SPECIMEN FROM RECTUM / Unknown 08/24/2019 6:15 EST 08/25/2019 15:50 EST Narrative [facility] - 08/26/2019 11:31 EST (If Cryptosporidium, Cyclospora, or Microsporidium are suspected, specific tests must be requested.) Single negative specimen does not rule out the possibility of a parasitic infection. Provider Unknown MICROBIOLOGY - DAV[place] ORDERABLES [facility] [address] [place] [address] documented in this encounter Visit Diagnoses Not on filedocumented in this encounter Care Teams Flash Welder Relationship Specialty Start Date End Date Denise Hooker APRN [address] [place] [address] PCP - General 09/13/18 documented as of this encounter
--- OUTSIDE RECORDS SUMMARY | 2024-05-06 04:53 | XMS_ITS | Encounter Summary ---
Author Organization [facility] Address [address] [place] [address] Care Team Providers Care Steward/Stewardess Club Car Name Role Phone Denise Hooker JENNIFER Primary Care Provider [phone] Encounter Details Date Type Department Care Team [...] Info) Description 08/08/2024 13:00 EST Office Visit [facility] Gastroenterology - [address] [address] Kera Tatum PA-C 111 [facility], [address] [place] [phone] 11/15/2024 18:30 EDT Office Visit [facility] Cardiology - [address] [place] [address] Davian Almonte MD [address] [place] [phone] documented as of this encounter Visit Diagnoses Not on filedocumented in this encounter Care Teams Steward/Stewardess Club Car Relationship Specialty Start Date End Date Denise Hooker APRN [address] [place], [place] [address] PCP - General 09/13/18 documented as of this encounter
--- OUTSIDE RECORDS SUMMARY | 2024-05-06 04:53 | XMS_ITS | Encounter Summary ---
Author Organization [facility] Address [address] [place] [address] Care Team Providers Care Planting Material Unloader Name Role Phone Denise Hooker JENNIFER Primary Care Provider [phone] Reason for Visit * Reason Onset Date Comments Appointment Related 08/26/2019 Encounter Details Date Type Department Care Team ([facility] st Contact Info) Description 08/26/2019 Telephone [facility] Neurology - [address] [phone] Ken Bran MD [address] [place] [address] [address] [place] [address] Appointment Related Social History Tobacco [...] [facility] Gastroenterology - [address] [phone] Kera Tatum PA-C 111 [facility], [address] [place] [phone] 11/15/2024 18:30 EDT Office Visit [facility] Cardiology - [place] [address] Davian Almonte MD [address] [place], [place] [address] documented as of this encounter Visit Diagnoses Not on filedocumented in this encounter Care Teams Planting Material Unloader Relationship Specialty Start Date End Date Denise Hooker APRN [address] [place] [address] PCP - General 09/13/18 documented as of this encounter
--- OUTSIDE RECORDS SUMMARY | 2024-05-06 04:53 | XMS_ITS | Encounter Summary ---
Author Organization [facility] Address [address] [place] [address] Care Team Providers Care Screen Tacker Name Role Phone Denise Hooker JENNIFER Primary Care Provider [phone] Reason for Visit * Reason Onset Date Comments Appointment Related 06/27/2019 Encounter Details Date Type Department Care Team ([facility] Contact Info) Description 06/27/2019 Telephone [facility] Neurophysiology - [facility] [address] [place], [place] [phone] Ken Bran MD [address] [place] [address] [address] [place] [address] Appointment Related Social History Tobacco [...] Description 08/08/2024 13:00 EST Office Visit [facility] Gastroenterology - [address] [phone] Kera Tatum PA-C 111 [facility], [address] [place] [phone] 11/15/2024 18:30 EDT Office Visit [facility] Cardiology - [place] [address] Davian Almonte MD [address] [place] [phone] documented as of this encounter Visit Diagnoses Not on filedocumented in this encounter Care Teams Screen Tacker Relationship Specialty Start Date End Date Denise Hooker, JENNIFER [address] [place] [address] PCP - General 09/13/18 documented as of this encounter
--- OUTSIDE RECORDS SUMMARY | 2024-05-06 04:54 | XMS_ITS | Encounter Summary ---
Author Organization [facility] Address [address] [place] [address] Care Team Providers Care Repairer Shoe Sticks Name Role Phone Gregoria Nicholas MD Primary Care Provider [phone] Reason for Visit * Reason Comments Other cardiac clearance fo r shoulder surgery Coronary Artery Disease Encounter Details Date Type Department Care Team (Latest Contact Info) Description 03/27/2015 13:50 EDT Office Visit [facility] Cardiology - [address] [place] [address] Broderick Galloway MD [address] [place] [address] Coronary atherosclerosis of unspecified type of vessel, [place] or graft (Primary Dx) Social History Tobacco [...] none Past Medical History Diagnosis Date ??? HI (myocardial infarction) 1992, 2003 ??? CAD (coronary [...] or interrupt this medication withour discussing with latex fashions designer Start this medication in one month. First [...] 52 09/08/2009 LDLBASE 110 09/08/2009 Assessment: Claudia Trujillo is a 59 y.o. year old male who presents with cad/ s/p stenting in 2009. No sxs, but considering shoulder surgery Plan: Stress echo documented in this encounter Plan of Treatment Upcoming Encounters Date Type Department Care Team (Late st Contact Info) Description 08/08/2024 13:00 EST Office Visit [facility] Gastroenterology - [address] [address] Kera Tatum PA-C [address] [place] [address], [facility], [address] [place] [phone] 11/15/2024 18:30 EDT Office Visit [facility] Cardiology - [place] [place] [address] Davian Almonte MD [address] [place], [place] [address] documented as of this encounter Procedures Procedure Name Priority Date/Time Associated Diagnosis Comments TREADMILL STRESS ECHO WAVEFORM 04/03/2015 10:13 EDT documented in this encounter Results * TREADMILL STRESS ECHO WAVEFORM (04/03/2015 10:13 EDT) Anatomical Region Laterality Modality Other 04/03/2015 10:1 3 EDT Narrative 04/03/2015 11:01 EDT For report of this Waveform, see associated Image Study. ? [facility] Stress ? Test Date: ?2015-04-03 Pat Name: ? CLAUDIA TRUJILLO ? Department: ? Room: ? Gender: ? M ?Group Segment Consultant: ?? : ?1955 ? Requested By: KIERRA Ansari Order Number: [id number] ?Messi HAYES: ? Interpretive Statements Procedure Note TITLE INSPECTOR, IMAGING - 04/03/2015 For report of this Waveform, see associated Image Study. [facility] Stress Test Date: 2015-04-03 Pat Name: CLAUDIA TRUJILLO Department: Room: Gender: M Group Segment Consultant: : 1955 Requested By: KIERRA Ansari Order Number: [id number] Messi HAYES: Interpretive Statements Broderick Galloway MD CARDIAC ECHO ORDERAB LES documented in this encounter Visit Diagnoses Diagnosis Coronary atherosclerosis of unspecified type of vessel, [place] or graft- Primary documented in this encounter Historical Medications * This list may reflect changes made after this encounter. Medication Sig Dispensed Refills Start Date End Date ERGOCALCIFEROL, VITAMIN D2, (VITAMIN D ORAL) Take by mouth daily. added in this encounter Care Teams Repairer Shoe Sticks Relationship Specialty Start Date End Date Gregoria Nicholas MD [address] [place] [address] PCP - General 10/27/12 09/12/18 documented as of this encounter
--- OUTSIDE RECORDS SUMMARY | 2024-05-06 04:54 | XMS_ITS | Encounter Summary ---
Author Organization [facility] Address [address] [place] [address] Care Team Providers Care Cooling System Operator Name Role Phone MorroLiliaDenise H JENNIFER Primary Care Provider [phone] Encounter Details Date Type Department Care Team (Late st Contact Info) Description 11/29/2018 Orders Only [facility] Cardiology - [facility] [address] [place], [place] [address] Kavya Duarte FNP [address] [place] [address] Jaw pain (Primary Dx); CAD in [place] artery Social History Tobacco Use Types Packs/Day [...] [facility] G[facility] - [address] [address] Kera Tatum PA-C [address] [place] [address], [address] [place] [phone] 11/15/2024 18:30 EDT Office Visit [facility] Cardiology - [place] [address] Davian Almonte MD [address] [place] [phone] documented as of this encounter Visit Diagnoses Diagnosis Jaw pain- Primary CAD in [place] artery Coronary atherosclerosis of [place] coronary artery documented in this encounter Care Teams Cooling System Operator Relationship Specialty Start Date End Date Denise Hooker APRN [address] [place] [address] PCP - General 09/13/18 documented as of this encounter
--- OUTSIDE RECORDS SUMMARY | 2024-05-06 04:54 | XMS_ITS | Encounter Summary ---
Author Organization [facility] Address [address] [place] [address] Care Team Providers Care Personnel Coordinator Name Role Phone Denise Hooker JENNIFER Primary Care Provider [phone] Reason for Visit * Reason Onset Date Comments Testing 11/30/2018 [facility] Encounter Details Date Type Department Care Team ([facility] Contact Info) Description 11/30/2018 Telephone [facility] Cardiology - [address] [place] [address] Broderick Galloway MD [address] [place] [address] Testing (need help scheduling two tests [...] 12/03/2018 0922 EDT Pt transferred yesterday to [facility] to Cardiology team. * Telephone Encounter - Courtney Moore - 12/02/2018 1023 EDT Spoke with ordering office. They will try to get the pt in sooner at a facility closer to the pt. * Telephone Encounter - Jono Cowart - 11/30/2018 1645 EDT JAVASCRIPT ENGINEER calling from [facility] office stating they have been trying to get a echo and stress test referral sent over and get authorized and they are having a hard time getting these scheduled. JAVASCRIPT ENGINEER put me onhold to speak with the referral department and we got disconnected . They need help trying to figure out why this isn't going through and why we haven't received the referral documented in this encounter Plan of Treatment Upcoming Encounters Date Type Department Care Team (Late st Contact Info) Description 08/08/2024 13:00 EST Office Visit [facility] Gastroenterology - [address] [address] Kera Tatum PA-C [address] [place] [address], [facility], [address] [place] [address] 11/15/2024 18:30 EDT Office Visit [facility] Cardiology - [address] [place], [place] [phone] Davian Almonte MD [address] [place], [place] [address] documented as of this encounter Visit Diagnoses Not on filedocumented in this encounter Care Teams Personnel Coordinator Relationship Specialty Start Date End Date Denise Hooker APRN [address] [place], [place] [address] PCP - General 09/13/18 documented as of this encounter
--- OUTSIDE RECORDS SUMMARY | 2024-05-06 04:54 | XMS_ITS | Encounter Summary ---
Author Organization [facility] Address [address] [place] [address] Care Team Providers Care Aerial Photographer Name Role Phone Gregoria Nicholas MD Primary Care Provider Reason for Referral * Follow Up (Routine/Next Available) - Closed Specialty Diagnoses / Procedures Referred By Contac t Referred To Contact Cardiology Diagnoses NSTEMI (non-ST elevated myocardial infarction) ([facility]) Rylie Lozada MD [address] [place] [address] [place] [address] Rylie Lozada MD [address] [place] [address] [place] [address] Referral ID Status Reason Start Date Expiration Date V isits Requested Visits Authorized [id number] Closed Specialty Services Required 02/12/2016 1 1 Question Answer Reason for Request: cad Expected Discharge Date (Inpatient Only): 02/12/2016 * Consult (Routine) - Closed Specialty Diagnoses / Procedures Referred By Contac t Referred To Contact Diagnoses NSTEMI (non-ST elevated myocardial infarction) ([facility]) Krish Solis PA-C [address] [facility] [address] [place] [address] Referral ID Status Reason Start Date Expiration Date V isits Requested Visits Authorized [id number] Closed Specialty Services Required 02/11/2016 1 1 Question Answer Reason for Request: cad Expected Discharge Date (Inpatient Only): 02/12/2016 SITE [facility] * Follow Up (Routine) - Closed Specialty Diagnoses / Procedures Referred By Contac t Referred To Contact Diagnoses NSTEMI (non-ST elevated myocardial infarction) ([facility]) Krish Solis PA-C [address] [address] Referral ID Status Reason Start Date Expiration Date V isits Requested Visits Authorized [id number] Closed Continuity of Care 02/11/2016 1 1 Question Answer Reason for Request: cad Expected Discharge Date (Inpatient Only): 02/12/2016 Encounter Details Date Type Department Care Team (Late st Contact Info) Description 02/10/2016 23:20 EDT - 02/12/2016 14:48 EDT Hospital Encounter [facility] Cardiac/Telemetry Unit [address] [place] [address] ePte Whyte MD [address] [address] Lorri Stockton MD [address] [place] [phone] Jaxson Schmitt MD [address] [place] [phone] NSTEMI (non-ST elevated myocardial infarction) ([facility]) (Primary Dx) Discharge Disposition: Home or Self [...] No resolved problems to display. Principal Procedure: [facility] Date: 02/11/16 Diagnostic Cardiac Study Results Left [...] significant family and personal cardiac history including CT x2 (1992, 2004, s/p stents x8), HTN, HLD, and T2DM transferred from [facility] for NSTEMI, after presenting there with acute chest pain which occurred while riding his bike and found to have elevated troponin. Initial EKG at [facility] did not show EKG changes, but EKG at [facility] showed new 1st degree AV block. An [...] discontinued. Follow ups were arranged with (patient's celebrity manager), PCP (Dr. Nicholas), and cardiac rehabilitation. Patient [...] 09/10/2009 Discharge Follow Up Appointments Scheduled with [facility] Appointments Outside of [facility] We Will Schedule Follow-up appointments and procedures Amb Consult/Follow Up Cardiac Rehabilitation Reason for Request: cad Expected Discharge Date (Inpatient Only): 02/12/2016 Practice Site (External Referral Only): [facility] Authorizing Provider: Krish Solis PA Amb Consult/Follow Up Cardiology Reason for Request: cad Expected Discharge Date (Inpatient Only): 02/12/2016 Authorizing Provider: Opal Vaz MD Amb Consult/Follow Up Primary Care Physician Reason for Request: cad Expected Discharge Date (Inpatient Only): 02/12/2016 Authorizing Provider: Krish Soils PA Additional Information: Please see your Primary Care Physician Dr Nicholas on February 20, 2016 @ 9:05 am. The telephone number [phone] Studies We Will Schedule Appointments We Recommend but have not been Scheduled Opal Vaz MD 02/12/2016 22:45 documented in this encounter Discharge Instructions * Appointments* Evelyn Peña - 02/12/2016 13:37 EDT Please see your Primary Care Physician Dr Nicholas on February 20, 2016 @ 9:05 am. The telephone number [phone] documented in this encounter Medications at Time [...] home health services. Shanae Sánchez RN #[id number] * Gilda Roman RN - 02/12/2016 1010 EDT Cardiology Research Consent Process Note Protocol: OZ (Affordability and Real-world Antiplatelet Treatment Effectiveness After Myocardial Infarction Study) [facility] [[email or web address]] # [id number] Hat Sizer: Nash Herron MD The Affordability and Real-world [...] * Colton Walls - 02/12/2016 0921 EDT Rn Transitional Note: I saw and examined Claudia Batista [...] M.D. * Rosemarie Birmingham RT - 02/11/2016 5752 EDT Respiratory Nocturnal BIPAP/CPAP Heart Rate: 70 [...] significant family and personal cardiac history including CT x2 (1993, 2004, s/p stents x8), HTN, HLD, and T2DM transferred from [facility] for NSTEMI, after presenting there with chest pain which occurred while ridinghis bike.?? Patient Contact Information: Kayla Batista, spouse, LIVING ARRANGEMENTS AND ACCESSIBILITY ISSUES: Patient lives in [place] with his spouse What in home social supports are available to the patient? as above ADVANCED DIRECTIVES, POA &/or COLST IN PLACE: No CULTURAL, TENRIISM and/or LANGUAGE factors affecting health care/discharge planning: [...] Primary Care Provider: Gregoria Nicholas Pharmacy: Other: [facility] today POST HOSPITAL TRANSITION PLAN: Plan d/c home without services when medically stable Colette Sánchez RN 02/11/2016 10:27 * Raheel Rodriguez MD - 02/11/2016 0216 EDT Claudia Batista is a 60 y.o. male with CAD (multiple stents, last interventions in 08/2009 with MARY to LAD and RCA), HTN, HLD, DM who is transferred from [facility] with NSTEMI. While biking this morning, had precordial chest pain radiating to L jaw, neck and L arm happened twice and relieved with nitro. At [facility] had a non significant ECG, however troponin [...] 60%, no RWMA on peak stress Last [facility] 09/07 and 09/10/2009: LM:Nl LAD:50% mid, 60% distal (FFR was performed and PCI x 3) Cx:40% distal RCA: 90% distal, 70% mid (PCI performed MARY x3) EF:60% A/P: ??NSTEMI - Cycle troponins, - ASA,plavix, IV heparin, - Continue metoprolol, lisinopril and amlodipine - Limited TTE in AM - NPO after midnight, LHC in AM PATIENT CONSENT TO CARDIOVASCULAR CATHETERIZATION OR INTERVENTION: I, Raheel Rodriguez MD, have explained the risks and benefits [...] H&P Admit Date: 02/10/2016 PCP: Gregoria Nicholas Dental Laboratory Technology Teacher: Goyo Lozada MD CC: chest pain HPI: Claudia Batista is a 60 y.o. male, former smoker, with a significant cardiac history including CT x2 (1992, 2004, s/p stents x8), HTN, HLD, and T2DM transferred from [facility] for NSTEMI. Patient was biking at [...] with a second nitro. 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 DM and CAD in brother. All men in family have heart disease and or heart attacks. Social: Former smoker, up to 2 ppd (quit ). Occasional EtOH, denies illicit drug use. ,lives with . bikes regularly several miles. 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 BMP, CBC and LFTs WNL. UVC labs: BMP, CBC WNL. Trop pending Imaging: None ASSESSMENT: Claudia Batista is a 60 y.o. male, former smoker, with a significant family and personal cardiac history including CT x2 (1992, 2004, s/p stents x8), HTN, HLD, and T2DM transferred from [facility] for NSTEMI, after presenting there with [...] metoprolol XL 150 mg daily - decrease PULVERIZER OPERATOR ASA to 81 mg daily - ECHO tomorrow - start plavix 75 mg daily - Monitor on telemetry - NPO after midnight for [facility] tomorrow - Check FLP and HbA1c Hypertension: Goal BP <130/80, currently well controlled. 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 I agree with the findings and plan of care documented in the resident's/fellow's note. Typical, extertional chest pain,borderline biomarkers; for C today. Jaxson Schmitt MD 02/11/2016 13:20 documented [...] artery Procedure: He was brought to [facility] Cardiac Catheterization Laboratory for the [...] Care - Cheli Kulkarni RN - 02/12/2016 0060 EDT Problem: Daily Care Plan Goals Goal: [...] care of pt at 1530. Pt s/p C with 1 MARY to mid LAD via right radial artery. Pt VSS formerly [facility] site c/d/i. HR NSR 60-80's. A- assessment [...] any pain. A: Pt is NPO for [facility] today. Pt ambulating hallway several times independently. R: Pt denies any needs. Will continue to monitor. 1200 Pt returned from lab pack chemist, right radial approach. 1 MARY to mid LAD * Plan of Care - Ken Patton RN - 02/11/2016 0000 EDT Problem: Daily Care Plan Goals Goal: Care Plan Documentation Outcome: Ongoing 02/10/166 Care Plan Focus Area of Focus Circulatory Status Goal This Shift VSS, CP free D: Patient arrived to [place] [id number]. Vital signs noted, and tele applied. Patient [...] Info) Description 08/08/2024 13:00 EST Office Visit [facility] Gastroenterology - [address] [id number] Kera Tatum PA-C [address] [place] [address], [facility], Level [address] [place] [phone] 11/15/2024 18:30 EDT Office Visit [facility] Cardiology - [address] [address] Davian Almonte MD [address] [place], [place] [phone] Scheduled Referrals Name Type Priority Associated Diagnoses Order Schedule AMB CONS/FOLLOW UP PRIMARY CARE PHYSICIAN Outpatient Referral Routine NSTEMI (non-ST elevated myocardial infarction) ([facility]) Ordered: 02/11/2016 AMB CONS/FOLLOW UP CARDIAC REHABILITATION Outpatient Referral Routine NSTEMI (non-ST elevated myocardial infarction) ([facility]) Ordered: 02/11/2016 AMB CONS/FOLLOW UP CARDIOLOGY Outpatient Referral Routine NSTEMI (non-ST elevated myocardial infarction) ([facility]) Ordered: 02/12/2016 documented as of this encounter [...] EDT) 02/18/2016 12:3 7 EDT Scan 2 Manager Medicaid PROCEDURE/MINOR MERCEDES GICAL ORDERABLES * ECG REPORT - SCANNED (02/18/2016 12:37 EDT) 02/18/2016 12:3 7 EDT Scan 2 Manager Medicaid PROCEDURE/MINOR MERCEDES GICAL ORDERABLES * ECG REPORT - SCANNED (02/18/2016 12:37 EDT) 02/18/2016 12:3 7 EDT Scan 2 Manager Medicaid PROCEDURE/MINOR MERCEDES GICAL ORDERABLES * ECG REPORT - SCANNED (02/15/2016 14:10 EDT) 02/15/2016 14:1 0 EDT Scan 2 Manager Medicaid PROCEDURE/MINOR MERCEDES GICAL ORDERABLES * ECG REPORT - SCANNED (02/13/2016 8:43 EDT) 02/13/2016 8:43 EDT Scan 2 Manager Medicaid PROCEDURE/MINOR MERCEDES GICAL ORDERABLES * (ABNORMAL) GLUCOSE, GLUCOMETER (02/12/2016 11:24 EDT) [facility] Signature Glucose, Fingerstick 125(H) 70 - 100 mg/dl 02/12/2016 11:[address] [facility] Faculty Neuropsychologist ID [id number] 02/12/2016 11:[address] [facility] Comment:[facility] BLOOD SPECIMEN / Unknown 02/12/2016 11:24 EDT 02/12/2016 11:31 EDT Jaxson Schmitt MD CHEMISTRY & BLOOD GAS ORDERABLES [facility] [address] [place] [address] * (ABNORMAL) GLUCOSE, GLUCOMETER (02/12/2016 7:07 EDT) Glucose, Fingerstick 209(H) 70 - 100 mg/dl 02/12/2016 7:[address] [facility] Faculty Neuropsychologist ID [id number] 02/12/2016 7:[address] [facility] Comment:[facility] BLOOD SPECIMEN / Unknown 02/12/2016 7:07 EDT 02/12/2016 7:16 EDT Jaxson Schmitt MD CHEMISTRY & BLOOD GAS ORDERABLES Performing Organization Address City/[facility] Co de Phone Number [facility] [address] [place] [address] * CREATININE (02/12/2016 5:49 EDT) Creatinine 0.79 0.66 - 1.25 mg/dl 02/12/2016 6:[address] [facility] GFR, Calculated 97 >60 ml/min/1.7 3m2 02/12/2016 6:[address] [facility] Comment: eGFR calculated using CKD-EPI equation for non Americans. Multiply eGFR by 1.16 for Americans. Blood specimen (specimen) BLOOD SPECIMEN / Unknown 02/12/2016 5:49 EDT 02/12/2016 6:09 EDT Lorri Stockton MD CHEMISTRY & BLO OD GAS ORDERABLES Performing Organization Address City/[facility]/ZIP Co de Phone Number [facility] [address] [place] [address] * BUN (02/12/2016 5:49 EDT) BUN 12 10 - 26 mg/dl 02/12/2016 6:[address] [facility] Blood specimen (specimen) BLOOD SPECIMEN / Unknown 02/12/2016 5:49 EDT 02/12/2016 6:09 EDT Lorri Stockton MD CHEMISTRY & BLO OD GAS ORDERABLES Performing Organization Address City/[facility]/ZIP Co de Phone Number [facility] [address] [place] [address] * ELECTROLYTES (02/12/2016 5:49 EDT) Sodium 139 136 - 145 mEq/L 02/12/2016 6:[address] [facility] Potassium 4.4 3.5 - 5.0 mEq/L 02/12/2016 6:[address] [facility] Chloride 99 96 - 110 mEq/L 02/12/2016 6:[address] [facility] CO2 29 24 - 32 mEq/L 02/12/2016 6:[address] [facility] Blood specimen (specimen) BLOOD SPECIMEN / Unknown 02/12/2016 5:49 EDT 02/12/2016 6:09 EDT Lorri Stockton MD CHEMISTRY & BLO OD GAS ORDERABLES Performing Organization Address [facility] de Phone Number [facility] [address] [place] [address] * (ABNORMAL) HEMAGRAM (02/12/2016 5:49 EDT) WBC 7.99 4.0 - 10.4 K/cmm 02/12/2016 6:18 [facility] RBC 4.77 4.36 - 5.78 M/cmm 02/12/2016 6:18 [facility] Hemoglobin 13.6(L) 13.8 - 17.3 gm/dl 02/12/2016 6:18 [facility] HCT 39.7 39.5 - 50.2 % 02/12/2016 6:18 [facility] MCV 83 81 - 95 fl 02/12/2016 6:18 [facility] MCH 28.5 27.6 - 33.0 pg 02/12/2016 6:18 [facility] MCHC 34.3 32.8 - 36.4 gm/dl 02/12/2016 6:18 [facility] RDW-CV 13.2 11.8 - 14.1 % 02/12/2016 6:[address] [facility] RDW-SD 39.9 36.5 - 45.9 fl 02/12/2016 6:[address] [facility] PLT 257 141 - 377 K/cmm 02/12/2016 6:[address] [facility] MPV 10.2 9.5 - 12.7 fl 02/12/2016 6:[address] [facility] Blood specimen (specimen) BLOOD SPECIMEN / Unknown 02/12/2016 5:49 EDT 02/12/2016 6:09 EDT Lorri Stockton MD HEMATOLOGY & PF 4 ORDERABLES Performing Organization Address City/[facility]/ZIP Co de Phone Number [facility] [address] [place] [address] * (ABNORMAL) GLUCOSE, GLUCOMETER (02/11/2016 20:24 EDT) Glucose, Fingerstick 181(H) 70 - 100 mg/dl 02/11/2016 20:[address] [facility] Faculty Neuropsychologist ID [id number] 02/11/2016 20:[address] [facility] Comment:Test Performed by [facility] BLOOD SPECIMEN / Unknown 02/11/2016 20:24 EDT 02/11/2016 20:56 EDT Jaxson Schmitt MD CHEMISTRY & BLOOD GAS ORDERABLES [facility] [address] [place] [address] * (ABNORMAL) GLUCOSE, GLUCOMETER (02/11/2016 17:08 EDT) Glucose, Fingerstick 153(H) 70 - 100 mg/dl 02/11/2016 17:[address] [facility] Faculty Neuropsychologist ID [id number] 02/11/2016 17:[address] [facility] Comment:Test Performed by [facility] Services BLOOD SPECIMEN / Unknown 02/11/2016 17:08 EDT 02/11/2016 17:09 EDT Jaxson Schmitt MD CHEMISTRY & BLOOD GAS ORDERABLES Performing Organization Address [facility] Co de Phone Number [facility] [address] [place] [address] * (ABNORMAL) GLUCOSE, GLUCOMETER (02/11/2016 12:41 EDT) Glucose, Fingerstick 153(H) 70 - 100 mg/dl 02/11/2016 12:[address] [facility] Faculty Neuropsychologist ID [id number] 02/11/2016 12:[address] [facility] Comment:Test Performed by [facility] Services BLOOD SPECIMEN / Unknown 02/11/2016 12:41 EDT 02/11/2016 12:44 EDT Jaxson Schmitt MD CHEMISTRY & BLOOD GAS ORDERABLES Performing Organization Address [facility] Co de Phone Number [facility] [address] [place] [address] * EKG 12-LEAD (02/11/2016 12:39 EDT) 02/11/2016 12:3 9 EDT [address] [facility] EKG - 02/12/2016 16:01 EDT ? [facility] ? Test Date: ?2016-02-11 Pat Name: ? CLAUDIA BATISTA ? Department: ?? TAVARES 5 ? Room: ? ME506 Gender: ? M ?Workforce Advisor: ?? [id number] : ?1955 ? Requested By: GRANT ALVARADO Order Number: [id number] ? Reading : ?? RYLIE LOZADA MD ? Measurements Intervals ?[place] ? Rate: ? 71 ? P: ?4 UT: ? 213 ?QRS: ?73 QRSD: ? 108 [...] Note Rylie Lozada MD - 02/12/2016 [facility] Test Date: 2016-02-11 Pat Name: CLAUDIA BATISTA Department: ANUSHA Marte Room: [facility] Gender: M Workforce Advisor: [id number] : 1955 Requested By: GRANT ALVARADO Order Number: [id number] Reading MD: RYLIE LOZADA MD Measurements Intervals [place] Rate: 71 P: 4 UT: 213 QRS: 73 QRSD: 108 T: 28 QT: 388 QTc: 423 Interpretive Statements SINUS RHYTHM WITH FIRST DEGREE AV BLOCK Compared to ECG 02/10/2016 23:28:00 No significant changes I reviewed the tracing and have either agreed or edited the findings inthis report. Electronically Signed On 02-12-16 16:01:07 EDT by RYLIE STINSON. Colton Walls MD CARDIAC ECG ORDERABL ES [facility] EKG * LEFT HEART CATH (02/11/2016 11:13 EDT) Anatomical Region Laterality Modality Other 02/11/2016 11:1 3 EDT Narrative 02/14/2016 11:01 EDT [address] [place] [address] Catheterization Laboratory Study Patient: Claudia Batista ? Study Date: ?02/11/2016 ?Accession #: ? [id number] : ? 1955 Referring Physician: Gregoria Nicholas Diagnostic Attending: ??Nash Herron Interventional Attending: ?Nash Uribe Diagnostic Fellow: Colton Walls Interventional Fellow: Colton [...] achieved. SUMMARY: 1. HPI and indications: Dyspnea. Qjy-DM-osznacqk myocardial infarction. 2. Left ventricle: Systolic function [...] (Plavix), at 75mgPOdaily, for 1yr. HISTORY: Dyspnea. ??Qpt-MJ-kqadkjjl myocardial infarction. ??PMH: ?? Myocardial infarction. Functional [...] Right radial artery access. A 6 Fr/10/.021 Dillwyn Sheath SLENDER sheath was ?? advanced into [...] angioplasty. A 2mm (D) x 15mm (L), [employer] balloon was employed. The ?? balloon was placed across the lesion and given a single inflation with a ?? maximum inflation pressure of 13atm. 5. Balloon angioplasty. A 2.5mm (D) x 12mm (L), [place] [employer] balloon was ?? employed. The balloon was [...] Nash Herron Jr., MD - 02/14/[address] [place] [address] Catheterization Laboratory Study Patient: Claudia Batista Study Date:02/11/2016 : 1955 Referring Physician: Gregoria Nicholas Diagnostic Attending: Nash Herron Interventional Attending: Nash Herron Diagnostic Fellow: Colton Walls Interventional Fellow: Colton Walsl ATTESTATION: Dr. Nash Herron was present and supervising for the entire procedure, IDrJefferson Walls was the initial author of this report. I, Dr. Nash Shannonve reviewed and agree with the findings of [...] achieved. SUMMARY: 1. HPI and indications: Dyspnea. Jzq-RM-tyzlumnq myocardial infarction. 2. Left ventricle: Systolic function [...] (Plavix), at 75mgPOdaily, for 1yr. HISTORY: Dyspnea. Hkx-WJ-rrvgnwtk myocardial infarction. PMH: Myocardialinfarction. Functional status: CCS [...] Right radial artery access. A 6 Fr/10/.021 Dillwyn Sheath SLENDER sheathwas advanced into the vessel. [...] angioplasty. A 2mm (D) x 15mm (L), [employer] balloon wasemployed. The balloon was placed across the lesion and given a single inflation witha maximum inflation pressure of 13atm. 5. Balloon angioplasty. A 2.5mm (D) x 12mm (L), [place] [employer] balloonwas employed. The balloon was placed across [...] Narrative 02/11/2016 11:00 EDT *Interpreting Group:* *[facility]* [address] [place] [address] Date of study: 02/11/2016 Transthoracic Echocardiography M-mode [...] Test stop time: ??09:04 AM. ATTENDING ?Lorri Stockton ADMITTING ?Pete Whyte MD REFERRING ?Gregoria Nicholas* NON DESTRUCTIVE EVALUATION MANAGER ??Adeline Romero PERFORMING ?? [facility], ORDERING ? Raheel Rodriguez REFERRING ?Raheel Rodriguez *PROCEDURE DATA* Procedure information: ??This study was interpreted by [facility]. Pertinent images and digital data are archived for permanent storage and are available for subsequent review. ??Study status: Routine. Transthoracic echocardiography. ??M-mode and limited 2D. A Transthoracic Echocardiogram was performed. Scanning was performed from the parasternal, apical, and subcostal acoustic windows. Images were obtained using an Izzuiq 9 cardiac ultrasound machine. Image quality was suboptimal. The study was technically limited due to body habitus. 2ml of Intravenous contrast (Definity) was administered by Adeline Romero [facility] to enhance delineation of left ventricular [...] [facility]* [address] [place] [address] Date of study: 02/11/2016 Transthoracic Echocardiography M-mode and limited 2D *STUDY CONCLUSIONS* Summary: 1. Left ventricle: The cavity size was normal. Wall thickness wasnormal. Systolic function was normal. The estimated ejection fraction [id number]%. Wall motion was normal; there were no regional wall motionabnormalities. 2. Right ventricle: The cavity size was normal. Wall thickness wasnormal. Systolic function was normal. *PATIENT PRESENTATION* Height: 177.8cm ((70in) ) S/D Pressure: 121 / 64 Weight: 105.2kg ((231.5lb) ) BSA: 2.31m^2 Test start time: 08:39 AM. Test stop time: 09:04 AM. ATTENDING Lorri Stockton ADMITTING Pete Whyte MD REFERRING Gregoria Nicholas* NON DESTRUCTIVE EVALUATION MANAGER Adeline Romero PERFORMING [employer], Ip ORDERING Azarbal, Amir REFERRING Azarbal, Amir *PROCEDURE DATA* Procedure information: This study was interpreted by [facility]. Pertinent images and digital data [...] Intravenous contrast(Definity) was administered by Adeline Romero NANY to [...] * (ABNORMAL) TROPONIN I (02/11/2016 7:44 EDT) Troponin I (ng/mL) 0.475(H) <0.034 ng/ml 02/11/2016 8:[address] [facility] Blood specimen (specimen) BLOOD SPECIMEN / Unknown 02/11/2016 7:44 EDT 02/11/2016 7:47 EDT Lorri Stockton MD CHEMISTRY & BLO OD GAS ORDERABLES [facility] [address] [place] [address] * HEPARIN LEVEL - UNFRACTIONATED HEPARIN (02/11/2016 7:44 EDT) Heparin Level-UFH 0.50 IU/mL 016 8:[address] [facility] Comment: Unfractionated heparin therapeutic range [...] HEMATOLOGY & PF4 ORDERABLES Performing Organization Address City/[facility] Co de Phone Number [facility] [address] [place] [address] * (ABNORMAL) GLUCOSE, GLUCOMETER (02/11/2016 6:07 EDT) Glucose, Fingerstick 138(H) 70 - 100 mg/dl 02/11/2016 6:[address] [facility] Faculty Neuropsychologist ID [id number] 02/11/2016 6:[address] [facility] Comment:Test Performed by [facility] Services BLOOD SPECIMEN / Unknown 02/11/2016 6:07 EDT 02/11/2016 6:08 EDT Lorri Stockton MD CHEMISTRY & BLO OD GAS ORDERABLES [facility] [address] [place] [address] * HEPARIN LEVEL - UNFRACTIONATED HEPARIN (02/11/2016 5:33 EDT) Heparin Level-UFH 0.56 IU/mL 016 6:[address] [facility] Comment: Unfractionated heparin therapeutic range = 0.3-0.7 IU/ml This test is not intended for monitoring direct Xa inhibitors, direct thrombin inhibitors, or fondaparinux. Exogenous ATIII is NOT supplied in this assay. For unexpected or persistently low levels, consider measuring patient's ATIII level. Blood specimen (specimen) BLOOD SPECIMEN / Unknown 02/11/2016 5:33 EDT 02/11/2016 5:45 EDT Lorri Stockton MD HEMATOLOGY & PF 4 ORDERABLES Performing Organization Address [facility] Co de Phone Number [facility] [address] [place] [address] * MAGNESIUM (02/11/2016 5:33 EDT) Magnesium 2.0 1.7 - 2.8 mg/dl 02/11/2016 6:[address] [facility] Blood specimen (specimen) BLOOD SPECIMEN / Unknown 02/11/2016 5:33 EDT 02/11/2016 5:45 EDT Clarita Lynch DO CHEMISTRY & BLOOD GAS ORDERABLES Performing Organization Address [facility] Co de Phone Number [facility] [address] [place] [address] * CREATININE (02/11/2016 5:33 EDT) [facility] Signature Creatinine 0.81 0.66 - 1.25 mg/dl 02/11/2016 6:[address] [facility] GFR, Calculated 96 >60 ml/min/1.7 3m2 02/11/2016 6:[address] [facility] Comment: eGFR calculated using CKD-EPI equation for non Americans. Multiply eGFR by 1.16 for Americans. Blood specimen (specimen) BLOOD SPECIMEN / Unknown 02/11/2016 5:33 EDT 02/11/2016 5:45 EDT Lorri Stockton MD CHEMISTRY & BLO OD GAS ORDERABLES Performing Organization Address [facility] Co de Phone Number [facility] [address] [place] [address] * BUN (02/11/2016 5:33 EDT) BUN 11 10 - 26 mg/dl 02/11/2016 6:[address] [facility] Blood specimen (specimen) BLOOD SPECIMEN / Unknown 02/11/2016 5:33 EDT 02/11/2016 5:45 EDT Lorri Stockton MD CHEMISTRY & BLO OD GAS ORDERABLES Performing Organization Address [facility] Co de Phone Number [facility] [address] [place] [address] * ELECTROLYTES (02/11/2016 5:33 EDT) Sodium 140 136 - 145 mEq/L 02/11/2016 6:[address] [facility] Potassium 4.2 3.5 - 5.0 mEq/L 02/11/2016 6:[address] [facility] Chloride 99 96 - 110 mEq/L 02/11/2016 6:[address] [facility] CO2 28 24 - 32 mEq/L 02/11/2016 6:[address] [facility] Blood specimen (specimen) BLOOD SPECIMEN / Unknown 02/11/2016 5:33 EDT 02/11/2016 5:45 EDT Lorri Stockton MD CHEMISTRY & BLO OD GAS ORDERABLES Performing Organization Address [facility] Co de Phone Number [facility] [address] [place] [address] * (ABNORMAL) HEMAGRAM (02/11/2016 5:33 EDT) WBC 10.51(H) 4.0 - 10.4 K/cmm 02/11/2016 6:[address] [facility] RBC 5.04 4.36 - 5.78 M/cmm 02/11/2016 6:[address] [facility] Hemoglobin 14.0 13.8 - 17.3 gm/dl 02/11/2016 6:[address] [facility] HCT 41.5 39.5 - 50.2 % 02/11/2016 6:[address] [facility] MCV 82 81 - 95 fl 02/11/2016 6:[address] [facility] MCH 27.8 27.6 - 33.0 pg 02/11/2016 6:[address] [facility] MCHC 33.7 32.8 - 36.4 gm/dl 02/11/2016 6:[address] [facility] RDW-CV 13.1 11.8 - 14.1 % 02/11/2016 6:[address] [facility] RDW-SD 39.0 36.5 - 45.9 fl 02/11/2016 6:[address] [facility] PLT 269 141 - 377 K/cmm 02/11/2016 6:04 [facility] MPV 10.4 9.5 - 12.7 fl 02/11/2016 6:04 [facility] Blood specimen (specimen) BLOOD SPECIMEN / Unknown 02/11/2016 5:33 EDT 02/11/2016 5:45 EDT Lorri Stockton MD HEMATOLOGY & PF [address] [facility] [address] [place] [address] * LIPID PROFILE (INCLUDES CHOLESTEROL, TRIGLYCERIDES, HDL, LDL) (02/11/2016 5:33 EDT) Cholesterol 137 mg/dl 02/11/2016 6:18 [facility] Comment: Desirable:<200 Borderline High:200-239 High:>yp=031 Triglycerides 187 mg/dl 02/11/2016 6:18 [facility] Comment: Normal:<150 Borderline High:150-199 High:200-499 Very High:>oi=901 HDL 40 mg/dl 02/11/2016 6:18 [facility] Comment: Low:<40 Normal:40-60 Desirable: >60 LDL, Calculated 60 mg/dl 6 6:18 [facility] Comment: Optimal:<100 Near Optimal:100-129 Borderline High:130-159 High:160-189 Very High:>su=077 Chol/HDL Ratio 3.4 02/11/2016 6:[address] [facility] Fasting? Unknown 02/11/2016 5:[address] [facility] Non HDL Cholesterol 97 mg/dl 02/11/2016 6:[address] [facility] Comment: Desirable:<130 Borderline:130-159 High: 160-189 Very High: >me=827 Blood specimen (specimen) BLOOD SPECIMEN / Unknown 02/11/2016 5:33 EDT 02/11/2016 5:45 EDT Lorri Stockton MD CHEMISTRY & BLO OD GAS ORDERABLES Performing Organization Address [facility] Co de Phone Number [facility] [address] [place] [address] * HEPARIN LEVEL - UNFRACTIONATED HEPARIN (02/11/2016 1:39 EDT) Heparin Level-UFH 0.25 IU/mL 016 2:[address] [facility] Comment: Unfractionated heparin therapeutic range [...] HEMATOLOGY & PF4 ORDERABLES Performing Organization Address City/[facility] Co de Phone Number [facility] [address] [place] [address] * (ABNORMAL) TROPONIN I (02/10/2016 23:41 EDT) Troponin I (ng/mL) 0.743(H) <0.034 ng/ml 02/11/2016 1:[address] [facility] Comment: Moderate hemolysis Results may be affected due to hemolysis. Blood specimen (specimen) BLOOD SPECIMEN / Unknown 02/10/2016 23:41 EDT 02/11/2016 0:02 EDT Lorri Stockton MD CHEMISTRY & BLO OD GAS ORDERABLES Performing Organization Address City/[facility]/ZIP Co de Phone Number [facility] [address] [place] [address] * (ABNORMAL) HEMAGRAM (02/10/2016 23:41 EDT) WBC 10.59(H) 4.0 - 10.4 K/cmm 02/11/2016 0:[address] [facility] RBC 5.20 4.36 - 5.78 M/cmm 02/11/2016 0:08 [facility] Hemoglobin 14.8 13.8 - 17.3 gm/dl 02/11/2016 0:08 [facility] HCT 42.2 39.5 - 50.2 % 02/11/2016 0:08 [facility] MCV 81 81 - 95 fl 02/11/2016 0:08 [facility] MCH 28.5 27.6 - 33.0 pg 02/11/2016 0:08 [facility] MCHC 35.1 32.8 - 36.4 gm/dl 02/11/2016 0:08 [facility] RDW-CV 13.1 11.8 - 14.1 % 02/11/2016 0:08 [facility] RDW-SD 38.5 36.5 - 45.9 fl 02/11/2016 0:08 [facility] PLT 249 141 - 377 K/cmm 02/11/2016 0:08 [facility] MPV 10.9 9.5 - 12.7 fl 02/11/2016 0:08 [facility] Blood specimen (specimen) BLOOD SPECIMEN / Unknown 02/10/2016 23:41 EDT 02/11/2016 0:02 EDT Lorri Stockton MD HEMATOLOGY & PF [address] [facility] [address] [place] [address] * PROTIME (02/10/2016 23:41 EDT) Pro Time 12.8 10.1 - 13.0 secs 02/11/2016 0:[address] [facility] I.N.R. 1.1 0.9 - 1.1 Ratio 02/11/2016 0:[address] [facility] Comment: Moderate Intensity Coumadin INR = 2.0-3.0 Adjustments in anticoagulant therapy dose should be based upon the INR and NOT the Pro Time. Blood specimen (specimen) BLOOD SPECIMEN / Unknown 02/10/2016 23:41 EDT 02/11/2016 0:02 EDT Lorri Stockton MD HEMATOLOGY & PF 4 ORDERABLES Performing Organization Address [facility] de Phone Number [facility] [address] [place] [address] * ELECTROLYTES (02/10/2016 23:41 EDT) Sodium 139 136 - 145 mEq/L 02/11/2016 0:[address] [facility] Potassium 4.2 3.5 - 5.0 mEq/L 02/11/2016 0:[address] [facility] Chloride 98 96 - 110 mEq/L 02/11/2016 0:[address] [facility] CO2 27 24 - 32 mEq/L 02/11/2016 0:[address] [facility] Blood specimen (specimen) BLOOD SPECIMEN / Unknown 02/10/2016 23:41 EDT 02/11/2016 0:02 EDT Lorri Stockton MD CHEMISTRY & BLO OD GAS ORDERABLES Performing Organization Address City/[facility] Co de Phone Number [facility] [address] [place] [address] * BUN (02/10/2016 23:41 EDT) BUN 12 10 - 26 mg/dl 02/11/2016 0:[address] [facility] Blood specimen (specimen) BLOOD SPECIMEN / Unknown 02/10/2016 23:41 EDT 02/11/2016 0:02 EDT Lorri Stockton MD CHEMISTRY & BLO OD GAS ORDERABLES Performing Organization Address City/[facility] Co de Phone Number [facility] [address] [place] [address] * (ABNORMAL) CREATININE (02/10/2016 23:41 EDT) Creatinine 0.65(L) 0.66 - 1.25 mg/dl 02/11/2016 0:[address] [facility] GFR, Calculated 105 >60 ml/min/1.7 3m2 02/11/2016 0:[address] [facility] Comment: eGFR calculated using CKD-EPI equation for non Americans. Multiply eGFR by 1.16 for Americans. Blood specimen (specimen) BLOOD SPECIMEN / Unknown 02/10/2016 23:41 EDT 02/11/2016 0:02 EDT Lorri Stockton MD CHEMISTRY & BLO OD GAS ORDERABLES Performing Organization Address [facility] Co de Phone Number [facility] [address] [place] [address] * MAGNESIUM (02/10/2016 23:41 EDT) Magnesium 2.0 1.7 - 2.8 mg/dl 02/11/2016 0:[address] [facility] Blood specimen (specimen) BLOOD SPECIMEN / Unknown 02/10/2016 23:41 EDT 02/11/2016 0:02 EDT Lorri Stockton MD CHEMISTRY & BLO OD GAS ORDERABLES Performing Organization Address [facility]/ZIP Co de Phone Number [facility] [address] [place] [address] * HEMOGLOBIN A1C (02/10/2016 23:41 EDT) Hemoglobin A1C 7.2 % 02/11/2016 11:[address] [facility] Comment: Reference Range: <5.7% Normal 5.7-6.4% Increased risk for diabetes =>6.5% Diagnostic for diabetes (if confirmed) The A1c goal for non adults in general is <7%. The A1c goal for selected patients may be significantly lower than 7% if this can be achieved without significant hypoglycemia or other adverse effects of treatment. Est Avg Glucose 160 mg/dl 6 11:[address] [facility] Comment: eAG represents the A1c result expressed as average glucose in mg/dl. Blood specimen (specimen) BLOOD SPECIMEN / Unknown 02/10/2016 23:41 EDT 02/11/2016 0:02 EDT Lorri Stockton MD CHEMISTRY & BLO OD GAS ORDERABLES Performing Organization Address City/[facility] Co de Phone Number [facility] [address] [place] [address] * (ABNORMAL) GLUCOSE, GLUCOMETER (02/10/2016 23:31 EDT) Glucose, Fingerstick 116(H) 70 - 100 mg/dl 02/10/2016 23:[address] [facility] Faculty Neuropsychologist ID [id number] 02/10/2016 23:[address] [facility] Comment:Test Performed by [facility] BLOOD SPECIMEN / Unknown 02/10/2016 23:31 EDT 02/10/2016 23:33 EDT Lorri Stockton MD CHEMISTRY & BLO OD GAS ORDERABLES Performing Organization Address City/[facility] Co de Phone Number [facility] [address] [place] [address] * EKG 12-LEAD (02/10/2016 23:28 EDT) 02/10/2016 23:2 8 EDT Narrative [facility] EKG - 02/13/2016 9:46 EDT ? [facility] ? Test Date: ?2016-02-10 Pat Name: ? CLAUDIA BATISTA ? Department: ?? TAVARES 5 ? Room: ? ME506 Gender: ? M ?Workforce Advisor: ?? [id number] : ?1955 ? Requested By: ROBERT LORRI Order Number: [id number] ? Reading MD: ?? LYDIA CAMP MD ? Measurements Intervals ?[place] ? Rate: ? 75 ? P: ?-3 UT: ? 215 ?QRS: ?72 QRSD: ? 110 [...] Note Lydia Camp MD - 02/13/2016 [facility] Test Date: 2016-02-10 Pat Name: CLAUDIA BATISTA Department: [place] [address] Room: [facility] Gender: M Workforce Advisor: [id number] : 1955 Requested By: ROBERT BLACKMON Order Number: [id number] Reading MD: LYDIA CAMP MD Measurements Intervals [place] Rate: 75 P: -3 UT: 215 QRS: 72 QRSD: 110 T: 1 QT: 376 QTc: 420 Interpretive Statements SINUS RHYTHM WITH FIRST DEGREE AV BLOCK POSSIBLE LEFT ATRIAL ENLARGEMENT Compared to ECG 04/12/2010 09:39:39 First degree AV block now present I reviewed the tracing and have either agreed or edited the findings inthis report. Electronically Signed On 02-13-16 09:46:29 EDT by LYDIA MAS. Lorri Stockton MD CARDIAC ECG ORD ERABLES [facility] EKG documented in this encounter Visit Diagnoses Diagnosis NSTEMI (non-ST elevated myocardial infarction) (HCC-CMS) Acute [...] EDT 1,200 Units/hr 12 mL/hr heparin in 1/2 NS 25,000 unit/250 mL infusion 17 Units/kg/hr [...] or interrupt this medication withour discussing with celebrity manager Start this medication in one month. [...] Discontinued 0110 (Given - Provider: Ken Patton RN)2108 (Given - Provider: Marci Valiente RN) amLODIPine [...] Discontinued, Routine 0938 (Given - Provider: Cheli Kulkarni RN) sodium chloride 0.9 % flush 3 mL (CANCELED) 3 mL, intravenous, EVERY 8 HOURS, First dose on Thu02/11/16 at 0000, Until Discontinued, Routine 2325 (Given - Provider: Ken Patton RN) 0732 (Not Given - Provider: Starr Esteves RN - Reason: Change in condition)1647 (Given - Provider: Marci Valiente RN)2308 (Given - Provider: Marci Valiente RN) 0940 (Given - Provider: Cheli Kulkarni RN) Continuous Medication Order 02/10/2016 02/11/2016 02/12/2016 heparin in 1/2 NS 25,000 unit/250 mL infusion (CANCELED) 1,200 Units/hr (12 mL/hr), intravenous, CONTINUOUS, Starting on Thu02/10/16 at 2330, Until Thu02/11/16 at 0006, Routine 2322 (New Bag - Provider: Ken Patton RN) heparin in 1/2 NS 25,000 unit/250 mL [...] Tk Floyd RN)1056 (Given - Provider: Pete Floyd, RN)1125 (Given - Provider: Pete Floyd, RN)1158 (Given - Provider: Pete Floyd, RN) heparin 1,000 unit/mL injection 3,000 Units [...] Floyd RN)1146 (Given - Provider: Pete Floyd, RN) midazolam (PF) (VERSED) 1 mg/mL injection (COMPLETED) intravenous, PRN, Starting on Thu02/11/16 at 1053, Until Thu02/11/16 at 1125, Routine 1053 (Given - Provider: Tk Floyd RN)1055 (Given - Provider: Pete Floyd, JANNY)1105 (Given - Provider: Pete Floyd, RN)1125 (Given - Provider: Pete Floyd, RN) Linked [...] MAINTAIN SEQUENTIAL COMPRESSION DEVICE 1 MEASURE WEIGHT 1 02/10/2016 VTE PHARMACOLOGIC PROPHYLAXI S CURRENTLY ORDERED OR ON ALTERNATIVE THER 1 02/10/2016 IV Count Last Ordered Date First Orde red Date IV REQUEST 02/10/2016 Admission Count Last Ordered Date First Orde red Date STATUS: INPATIENT ACUTE ADMISSION 1 016 Transfer Count Last Ordered Date First Orde red Date NOTIFY PPS OF DISCHARGE COMPLETE 1 02/12/20 16 CHANGE ATTENDING TO: 1 02/11/2016 UR PATIENT STATUS CHANGE 1 02/11/2016 Discharge Count Last Ordered Date First Orde red Date DISCHARGE PATIENT 1 02/12/2016 Legal Count Last Ordered Date First Orde red Date MISCELLANEOUS DISCHARGE INSTRUCTIONS 9 01/1802/11/2016 documented in this encounter Care Teams Aerial Photographer Relationship Specialty Start Date End Date Gregoria Nicholas MD [address] [place] [address] PCP - General 10/27/12 09/12/18 documented as of this encounter
--- OUTSIDE RECORDS SUMMARY | 2024-05-06 04:54 | XMS_ITS | Encounter Summary ---
Author Organization [facility] Address [address] [place] [address] Care Team Providers Care Air Sealing Technician Name Role Phone Gregoria Nicholas MD Primary Care Provider [phone] Reason for Visit * Reason Onset Date Comments Letter for School/Work 04/18/2015 clearing for surgery Encounter Details Date Type Department Care Team ([facility] Contact Info) Description 04/18/2015 Telephone [facility] Cardiology - [address] [place] [address] Broderick Galloway MD [address] [place] [address] Letter for School/Work (clearing for surgery) [...] requested to Dr. Chinmay Sheriff's office # [phone] as requested. Kymberly made aware as well. She confirmed receipt. Mary Tanner RN * Telephone Encounter - Muna Uriostegui - 04/18/2015 1123 EDT Reason for Call: Letter for School/Work Summary/Symptoms: Kymberly from Dr Chinmay Sheriff's office calling to request [facility] Please fax to [phone]. Please call with any questions. Muna Uriostegui 04/18/2015 11:28 documented in this encounter Plan of Treatment Upcoming Encounters Date Type Department Care Team (Late st Contact Info) Description 08/08/2024 13:00 EST Office Visit [facility] Gastroenterology - [address] [id number] Kera Tatum PA-C [address] [facility], [address] [place] [phone] 11/15/2024 18:30 EDT Office Visit [facility] Cardiology [place] [address] Davian Almonte MD [address] [place] [phone] documented as of this encounter Visit Diagnoses Not on filedocumented in this encounter Care Teams Air Sealing Technician Relationship Specialty Start Date End Date Gregoria Nicholas MD [address] [place] [phone] PCP - General 10/27/12 09/12/18 documented as of this encounter
--- OUTSIDE RECORDS SUMMARY | 2024-05-06 04:54 | XMS_ITS | Encounter Summary ---
Author Organization [facility] Address [address] [place] [address] Care Team Providers Care Frame Coverer Name Role Phone Gregoria Nicholas MD Primary Care Provider [phone] Encounter Details Date Type Department Care Team (Latest Contact Info) Description 03/27/2017 13:34 EDT - 03/27/2017 23:59 EDT Hospital Encounter [address] [address] Unknown, Provider, Discharge Disposition: Home or Self [...] Code Departure Means Destination Home or Self Longterm documented in this encounter Plan of Treatment Upcoming Encounters Date Type Department Care Team (Late st Contact Info) Description 08/08/2024 13:00 EST Office Visit [facility] Gastroenterology - [address] [phone] Kera Tatum PA-C [address] [facility], [address] [place] [phone] 11/15/2024 18:30 EDT Office Visit [facility] Cardiology - [address] [place] [address] Davian lAmonte MD [address] [place], [place] [phone] documented as of this encounter Visit Diagnoses Not on filedocumented in this encounter Care Teams Frame Coverer Relationship Specialty Start Date End Date Gregoria Nicholas MD [address] [place] [address] PCP - General 10/27/12 09/12/18 documented as of this encounter
--- OUTSIDE RECORDS SUMMARY | 2024-05-06 04:54 | XMS_ITS | Encounter Summary ---
Author Organization [facility] Address [address] [place] [address] Care Team Providers Care Gerontological Nurse Practitioner Name Role Phone Gregoria Nicholas MD Primary Care Provider Encounter Details Date Type Department Care Team (Late Contact Info) Description 11/06/2015 Phlebotomy Only [address] [address] Search Engine Optimization Manager, Outpatient Shortness of breath (Primary Dx) Social [...] 08/08/2024 13:00 EST Office Visit [facility] Gastroenterology [address] [id number] Kera Tatum PA-C 111 [facility], [facility], [address] [place] [address] 11/15/2024 18:30 EDT Office Visit [facility] Cardiology - [address] [place], [place] [phone] Davian Almonte MD [address] [place], [place] [phone] documented as of this encounter Procedures Procedure Name Priority Date/Time Associated Diagnosis Comments COMPLETE BLOOD COUNT Routine 11/06/2015 9:19 EDT Shortness of breath documented in this encounter Results * HEMAGRAM (11/06/2015 9:19 EDT) WBC 8.44 4.0 - 10.4 K/cmm 11/06/2015 11:15 [facility] RBC 5.09 4.36 - 5.78 M/cmm 11/06/2015 11:15 [facility] Hemoglobin 14.2 13.8 - 17.3 gm/dl 11/06/2015 11:15 [facility] HCT 41.7 39.5 - 50.2 % 11/06/2015 11:15 [facility] MCV 82 81 - 95 fl 11/06/2015 11:15 [facility] MCH 27.9 27.6 - 33.0 pg 11/06/2015 11:15 [facility] MCHC 34.1 32.8 - 36.4 gm/dl 11/06/2015 11:15 [facility] RDW-CV 12.4 11.8 - 14.1 % 11/06/2015 11:15 [facility] RDW-SD 37.2 36.5 - 45.9 fl 11/06/2015 11:15 [facility] PLT 299 141 - 377 K/cmm 11/06/2015 11:15 EDT [facility] MPV 10.8 9.5 - 12.7 fl 11/06/2015 11:15 EDT [facility] Blood specimen (specimen) BLOOD SPECIMEN / Unknown 11/06/2015 9:19 EDT 11/06/2015 10:59 EDT Broderick Galloway MD HEMATOLOGY & PF4 ORD ERABLES [facility] [address] [place] [address] documented in this encounter Visit Diagnoses Diagnosis Shortness of breath- Primary documented in this encounter Care Teams Gerontological Nurse Practitioner Relationship Specialty Start Date End Date Gregoria Nicholas MD [address] [place] [address] PCP - General 10/27/12 09/12/18 documented as of this encounter
--- OUTSIDE RECORDS SUMMARY | 2024-05-06 04:54 | XMS_ITS | Encounter Summary ---
Author Organization [facility] Address [address] [place] [address] Care Team Providers Care Manager Database Administration Name Role Phone Gregoria Nicholas MD Primary Care Provider [phone] Encounter Details Date Type Department Care Team (Late st Contact Info) Description 03/27/2017 Results Only [facility] [phone] Bari Funez, DO [address] [place] [address] Social History Tobacco Use Types [...] Visit [facility] Gastroenterology - [facility] [address] [place], [place] [address] Kera Tatum PA-C 111 [facility], [address] [place] [phone] 11/15/2024 18:30 EDT Office Visit [facility] Cardiology - [address] [place], [place] [phone] Davian Almonte MD [address] [place], [place] [phone] documented as of this encounter Procedures Procedure [...] reading/interpret ing unformatted reports. Name: ? CLAUDIA TRUJILLO ? Accession #: ? [id number] ? : ? 1955 (Age: 61) ??M [...] Cope 03/28/2017 11:16 AM End of Report [facility] 03/27/2017 19:3 4 EDT 03/27/2017 19:34 EDT Bari Funez DO PATHOLOGY ORDERABLES [facility] [address] [place] [address] documented in this encounter Visit Diagnoses Not on filedocumented in this encounter Care Teams Manager Database Administration Relationship Specialty Start Date End Date Gregoria Nicholas MD [address] [place] [address] PCP - General 10/27/12 09/12/18 documented as of this encounter
--- OUTSIDE RECORDS SUMMARY | 2024-05-06 04:54 | XMS_ITS | Encounter Summary ---
Author Organization [facility] Address [address] [place] [address] Care Team Providers Care Research And Development Researcher Name Role Phone Gregoria Nicholas MD Primary Care Provider [phone] Reason for Visit * Reason Comments Follow-up 6 mo. no complaints Encounter Details Date Type Department Care Team (Latest Contact Info) Description 09/09/2016 10:30 EST Office Visit [facility] Cardiology - [address] [place] [address] Broderick Galloway MD [address] [place] [address] Atherosclerosis of coronary artery of elem heart without angina pectoris, unspecified vessel or [...] Hyperlipidemia ??? Hypertension ??? [place] (myocardial infarction) 1992, 2003 ??? Recurrent infections [...] Info) Description 08/08/2024 13:00 EST Office Visit [facility] Gastroenterology - [address] [address] Kera Tatum PA-C 111 [facility], [address] [place] [phone] 11/15/2024 18:30 EDT Office Visit [facility] Cardiology [place] [address] [place] [address] Davian Almonte MD [address] [place], [place] [address] documented as of this encounter Visit Diagnoses Diagnosis Atherosclerosis of coronary artery of elem heart without angina pectoris, unspecified vessel or lesion type- Primary documented in this encounter Care Teams Research And Development Researcher Relationship Specialty Start Date End Date Gregoria Nicholas MD [address] [place] [address] PCP - General 10/27/12 09/12/18 documented as of this encounter
--- OUTSIDE RECORDS SUMMARY | 2024-05-06 04:54 | XMS_ITS | Encounter Summary ---
Author Organization [facility] Address [address] [place] [address] Care Team Providers Care Photographic Laboratory Technician Name Role Phone Denise Hooker JENNIFER Primary Care Provider [phone] Reason for Visit * Reason Comments Coronary Artery Disease 1 YR Encounter Details Date Type Department Care Team (Latest Contact Info) Description 09/14/2018 10:30 EST Office Visit [facility] Cardiology - [address] [place] [address] Broderick Galloway MD [address] [place] [address] Atherosclerosis of [place] coronary artery of [place] heart without angina pectoris (Primary Dx) Social [...] RCA; 2004 stents X2 ??? Diabetes mellitus ([facility]) oral agents ??? Diverticulitis ??? Hyperlipidemia ??? Hypertension ??? [place] (myocardial infarction) ([facility]) 1992, 2003 ??? Recurrent infections rt foot 5th toe Patient Active Problem List Diagnosis Date Noted ??? NSTEMI (non-ST elevated myocardial infarction) ([facility]) 02/10/2016 Priority: Medium ??? Coronary atherosclerosis 09/07/2009 ??? Hyperlipidemia with target LDL less than 70 09/07/2009 ??? Hypertensive disorder 09/07/2009 ??? Diabetes mellitus ([facility]) 09/07/2009 Current Outpatient Medications Medication [...] EST Office Visit [facility] Gastroenterology - [address] [address] Kera Tatum PA-C [address] [place] [address], [facility], [address] [place] [address] 11/15/2024 18:30 EDT Office Visit [facility] Cardiology - [address] [place], [place] [phone] Davian Almonte MD [address] [place] [address] documented as of this encounter Visit Diagnoses Diagnosis Atherosclerosis of [place] coronary artery of [place] heart without angina pectoris- Primary documented in [...] 12/02/2018 added in this encounter Care Teams Photographic Laboratory Technician Relationship Specialty Start Date End Date Denise Hooker APRN [address] [place] [address] PCP - General 09/13/18 documented as of this encounter
--- OUTSIDE RECORDS SUMMARY | 2024-05-06 04:54 | XMS_ITS | Encounter Summary ---
Author Organization [facility] Address [address] [place] [address] Care Team Providers Care Audit Intern Name Role Phone Joaquín Carpenter MD Primary Care Provider [phone] Gregoria Nicholas MD Primary Care Provider [phone] Reason for Visit * Reason Onset Date Comments Appointment Related 10/25/2012 Encounter Details Date Type Department Care Team ([facility] Contact Info) Description 10/25/2012 Telephone [facility] Cardiology - [place] [place] [address] Broderick Galloway MD [address] [place] [address] [place] [address] Appointment Related Social History Tobacco [...] Office Visit [facility] Gastroenterology - [address] [address] Kera Tatum PA-C [address] [place] [address], [address] [place] [phone] 11/15/2024 18:30 EDT Office Visit [facility] Cardiology - [place] [address] [place] [address] Davian Almonte MD [address] [place] [address] documented as of this encounter Visit Diagnoses Not on filedocumented in this encounter Care Teams Audit Intern Relationship Specialty Start Date End Date Joaquín Carpenter MD [address] [place] [address] PCP - General 09/04/09 10/26/12 Gregoria Nicholas MD [address] [place] [address] PCP - General 10/27/12 09/12/18 documented as of this encounter
--- OUTSIDE RECORDS SUMMARY | 2024-05-06 04:54 | XMS_ITS | Encounter Summary ---
Author Organization [facility] Address [address] [place] [address] Care Team Providers Care Renewable Energy Trader Name Role Phone Gregoria Nicholas MD Primary Care Provider [phone] Reason for Visit * Reason Onset Date Comments Other 02/22/2016 Disability Encounter Details Date Type Department Care Team ([facility] Contact Info) Description 02/22/2016 Telephone [facility] Cardiology - [address] [place] [address] Mary Tanner RN Other (Disability) [...] Encounter - Mary Tanner RN - 02/22/2016 0931 EDT Received additional paperwork for Disability from [facility]. Called and spoke w/ Gregoria. She confirmed receipt of paperwork completed and faxed on 02/14/16. She explained there was one page that the employer did not provide that needs to be completed and signed by Dr. Galloway. Will f/u. Page sent to Josesito Waller for Dr. Galloway's attention today. Mary Tanner RN Left message for patient disability paperwork completed and faxed back to [facility]. Mary Tanner RN documented in this encounter Plan of Treatment Upcoming Encounters Date Type Department Care Team (Late st Contact Info) Description 08/08/2024 13:00 EST Office Visit [facility] Gastroenterology - [address] [address] Kera Tatum PA-C 111 [facility], [address] [place] [phone] 11/15/2024 18:30 EDT Office Visit [facility] Cardiology - [address] [place] [address] Davian Almonte MD [address] [place], [place] [address] documented as of this encounter Visit Diagnoses Not on filedocumented in this encounter Care Teams Renewable Energy Trader Relationship Specialty Start Date End Date Gregoria Nicholas MD [address] [place] [phone] PCP - General 10/27/12 09/12/18 documented as of this encounter
--- OUTSIDE RECORDS SUMMARY | 2024-05-06 04:54 | XMS_ITS | Encounter Summary ---
Author Organization [facility] Address [address] [place] [address] Care Team Providers Care Band Attacher Name Role Phone Gregoria Nicholas MD Primary Care Provider [phone] Encounter Details Date Type Department Care Team (Late st Contact Info) Description 08/11/2016 Phlebotomy Only [facility] - [address] [address] Detailer Furniture, Outpatient Social History Tobacco Use Types Packs/Day [...] [facility] Gastroenterology - [address] [phone] Kera Tatum PA-C 111 [facility], [address] [place] [phone] 11/15/2024 18:30 EDT Office Visit [facility] Cardiology - [address] [place] [address] Davian Almonte MD [address] [place] [address] documented as of this encounter Visit Diagnoses Not on filedocumented in this encounter Care Teams Band Attacher Relationship Specialty Start Date End Date Gregoria Nicholas MD [address] [place] [address] PCP - General 10/27/12 09/12/18 documented as of this encounter
--- OUTSIDE RECORDS SUMMARY | 2024-05-06 04:54 | XMS_ITS | Encounter Summary ---
Author Organization [facility] Address [address] [place] [address] Care Team Providers Care Physical Design Engineer Name Role Phone Denise Hooker APRN Primary Care Provider [phone] Reason for Referral * Follow Up (Routine/Next Available) - Receiving Office to Obtain Authorization Specialty Diagnoses / Procedures Referred By Claire jacques Referred To Contact Diagnoses Chest pain, unspecified type Shane Smith MD [address] [address] Referral ID Status Reason Start Date Expiration Date Visits Requested Visits Authorized [id number] Receiving Office to Obtain Authorization Continuity of Care 9 1 1 Question Answer Reason for Request: Post hospitalization follow up Encounter Details Date Type Department Care Team (Late st Contact Info) Description 12/02/2018 17:38 EDT - 12/03/2018 18:36 EDT Hospital Encounter [facility] Cardiac/Telemetry Unit [address] [place] [address] Birgit Dunn MD [address] [facility], Level 1 [place] [phone] Chon Mckeon MD [address] [place] [address] [place] [phone] NSTEMI (non-ST elevated myocardial infarction) ([facility]) (Primary Dx); Unstable angina (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 Hypertensive disorder 09/07/2009 ??? Diabetes mellitus ([facility]) 09/07/2009 Oral agent - metformin Resolved Hospital Problems No resolved problems to display. HOSPITAL COURSE Claudia Batista is a 63 y.o. male with a history significant for coronary artery disease (status post 9 stents) type 2 diabetes, hypertension, hyperlipidemia, extensive tobacco use who presented as a trasnfer from [facility] with 2 weeks of exertional neck [...] Kaye MD Internal Medicine, PGY-1 12/05/2018 Pager: [phone] Attending Attestation: I have personally evaluated Claudia [...] Home Health Services: None DME Provider: Pharmacy: [place] [facility] [address] [facility] [address] [facility] [address] [facility] - [place], [place] - [address] [address] [facility] [place], [place] - [address] [place] [address] [address] [facility] [address] [facility] [address] POST HOSPITAL TRANSITION PLAN: Patient lives alone in [place], [place]. 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 His sister lives about [...] is no longer n.p.o.) ?? CAD/hypertension/HLD: - ORANGE PICKER amlodipine 10 mg daily - ORANGE PICKER Crestor 40 mg daily - ORANGE PICKER metoprolol XL 150 mg daily. ?? Anxiety/depression: - Sertraline 50 mg daily at bedtime - Trazodone 50 mg daily at bedtime ?? Diet: Caffeine free, cardiac diet, consistent carbohydrate VTE Prophylaxis: Heparin drip Consults: N/A CODE STATUS: Full Admission Status Inpatient. Anticipated duration of hospitalization is greater than two midnights due to Unstable angina. ?? Main Kaye MD Internal Medicine, PGY-1 12/02/2018 Pager: [phone] documented in this encounter H&P Notes * Main Kaye MD - 12/02/2018 8193 EDT Cardiology History and Physical Admite Date: 12/02/2018 Date of Service: 12/02/2018 LOS: 0 days Service Date: 12/02/2018 Admit Date: 12/02/2018 17:38 Primary Care Provider: Denise Hooker Chief Complaint: Neck and jaw pain HPI Claudia Batista is a 63 y.o. male with a past history of of CAD (status post 9 stents placed (type 2diabetes, hypertension, hyperlipidemia who presents as a transfer from [facility] forury worsening neck and jaw [...] placed. While in the emergency department at [facility], patient's labs had no troponin elevation, [...] placed Cardiac risk factors: Coronary artery disease, [id number] smoking history, hypertension, hyperlipidemia, family history(both sides have had multiple heart attacks) PMH PSH Past Medical History: Diagnosis Date ??? CAD (coronary artery disease) 09-10-09 PCI LAD prox MARY, LAD mid MARY, LAD distal BMS; 09-07-09 PCI MARY X 3 RCA; 2004 stents X2 ??? Diabetes mellitus ([facility]) oral agents ??? Diverticulitis ??? Hyperlipidemia ??? Hypertension ??? CA (myocardial infarction) ([facility]) 1992, 2003 ??? Recurrent infections rt [...] - NPO at midnight for potential intervention ([facility]) or other testing if needed - ordered lipid profile and A1c - Echocardiogram ordered Type 2 Diabetes: - Consistent carbohydrate diet (in addition to caffeine free, cardiac) - POCT Glc before meals and qhs - aspart SSI - glargine 30 units every morning - Follow-up hemoglobin A1c CAD/hypertension/HLD: - ORANGE PICKER amlodipine 10 mg daily - ORANGE PICKER Crestor 40 mg daily - ORANGE PICKER metoprolol XL 150 mg daily. Anxiety/depression: - [...] symptoms of unstable angina, known CAD, for [facility]. Birgit Dunn MD documented in this encounter Procedure Notes * Kenan Gordon MD - 12/03/2018 1504 EDT Dear Denise Hooker NP Claudia Batista came to cardiac catheterization at the [facility] on 12/03/2018. He had presented with [...] artery Procedure: He was brought to [facility] Cardiac Catheterization Laboratory for the [...] Goal This Shift VSS in prep for [facility] VS: BP 123/77 (BP Cuff Location: [...] Pt ambulating independently in hallway. Plan for [facility] today. 1600: Pt now s/p LHC [...] Care - Eric Brand RN - 12/02/2018 6839 EDT Problem: Daily Care Plan Goals Goal: [...] Visit [facility] Gastroenterology - [address] [address] Kera Tatum PA-C [address] [place] [address], Level 5 [place] [phone] 11/15/2024 18:30 EDT Office Visit [facility] Cardiology - Jenelle Jenelle [place] [address] Davian Almonte MD [address] [place] [address] [phone] Pending Results Name Type Priority Associated Diagnoses [...] EDT) 12/07/2018 11:4 6 EDT Scan 2 Medical Detail Representative PROCEDURE/[facility] GICAL ORDERABLES * ECG REPORT - SCANNED (12/07/2018 11:28 EDT) 12/07/2018 11:2 8 EDT Scan 2 Medical Detail Representative PROCEDURE/[facility] MERC[facility]ES GICAL ORDERABLES * LEFT HEART CATH (12/03/2018 15:50 EDT) Anatomical Region Laterality Modality Other 12/03/2018 15:5 0 EDT Narrative 12/06/2018 8:20 EDT Cardiology [address] [place] [address] Catheterization Laboratory Study Patient: Claudia Batista ?Study Date: ? 12/03/2018 ? Accession #: ?[id number] : ? 1955 Referring: Denise Hooker Aprn [...] Right radial artery access. A 6 Fr/10/.021 [place] Sheath SLENDER ?? sheath was advanced into [...] Note Kenan Gordon MD - 12/06/[address] [place] [address] Catheterization Laboratory Study Patient: Claudia Batista Study [...] Right radial artery access. A 6 Fr/10/.021 [place] Sheath SLENDER sheath was advanced into the [...] 08:20 Main Kaye MD CARDIAC CATH ORDERA BENITO * (ABNORMAL) GLUCOSE, GLUCOMETER (12/03/2018 15:35 EDT) Glucose, Fingerstick 106(H) 70 - 100 mg/dl 12/03/2018 15:41 EDT [facility] Doubling Machine Operator ID [id number] 12/03/2018 15:41 EDT [facility] Comment:Test Performed by [facility] BLOOD SPECIMEN / Unknown 12/03/2018 15:35 EDT 12/03/2018 15:41 EDT Birgit Dunn MD CHEMISTRY & B LOOD GAS ORDERABLES [facility] [address] [place] [address] * ECG REPORT - SCANNED (12/03/2018 13:46 EDT) 12/03/2018 13:4 6 EDT Scan 2 Medical Detail Representative PROCEDURE/MINOR MERCEDES GICAL ORDERABLES * (ABNORMAL) GLUCOSE, GLUCOMETER (12/03/2018 11:22 EDT) Glucose, Fingerstick 117(H) 70 - 100 mg/dl 12/03/2018 11:24 EDT [facility] Doubling Machine Operator ID [id number] 12/03/2018 11:24 EDT [facility] Comment:[facility] BLOOD SPECIMEN / Unknown 12/03/2018 11:22 EDT 12/03/2018 11:24 EDT Birgit Dunn MD CHEMISTRY & B LOOD GAS ORDERABLES [facility] [address] [place] [address] * ECHOCARDIOGRAM (12/03/2018 8:37 EDT) Anatomical Region Laterality Modality Other 12/03/2018 8:37 EDT Narrative 12/03/2018 9:57 EDT *Interpreting Group:* *[facility]iology* [address] [place] [address] Date of study: 12/03/2018 Transthoracic Echocardiography M-mode, [...] MD REFERRING ?Denise Hooker Aprn PERFORMING ?? [facility], Ip ORDERING ? Main Kaye KOHINOOR OPERATOR ??Michelle Poon *PROCEDURE DATA* Procedure information: ??The patient was identified by two identifiers. This [facility] [...] contrast (Definity) was administered by Michelle Poon [facility] to enhance delineation of left ventricular [...] Garcia MD - 12/03/2018 *Interpreting Group:* *[facility]iology* [address] [place] [address] Date of study: 12/03/2018 Transthoracic Echocardiography M-mode, [...] Denise Hooker Aprn PERFORMING [facility], Ip ORDERING Mikki Main KOHINOOR OPERATOR Michelle Poon *PROCEDURE DATA* Procedure information: The patient was identified by two identifiers. This [facility] [...] contrast (Definity) was administered by Michelle Poon [facility] to enhance delineation of left ventricular [...] 09:57 Main Kaye MD CARDIAC ECHO ORDERA BLES * (ABNORMAL) GLUCOSE, GLUCOMETER (12/03/2018 7:46 EDT) Glucose, Fingerstick 155(H) 70 - 100 mg/dl 12/03/2018 7:51 EDT [facility] Doubling Machine Operator ID [id number] 12/03/2018 7:51 EDT [facility] Comment:Test Performed by [facility] BLOOD SPECIMEN / Unknown 12/03/2018 7:46 EDT 12/03/2018 7:51 EDT Birgit Dunn MD CHEMISTRY & B LOOD GAS ORDERABLES Performing Organization Address [facility] Co de Phone Number [facility] [address] [place] [address] * HEPARIN LEVEL - UNFRACTIONATED HEPARIN (12/03/2018 5:41 EDT) Heparin Level-UFH 0.33 IU/mL 019 6:22 EDT [facility] Comment: Unfractionated heparin therapeutic [...] & PF4 OR DERABLES Performing Organization Address City/[facility]/ZIP Co de Phone Number [facility] [address] [place] [address] * BUN (12/03/2018 5:41 EDT) BUN 14 10 - 26 mg/dl 12/03/2018 6:23 EDT [facility] Blood specimen (specimen) BLOOD SPECIMEN / Unknown 12/03/2018 5:41 EDT 12/03/2018 5:55 EDT Main Kaye MD CHEMISTRY & BLOOD G ORDERABLES Performing Organization Address [facility] Co de Phone Number [facility] [address] [place] [address] * MAGNESIUM (12/03/2018 5:41 EDT) Magnesium 2.2 1.7 - 2.8 mg/dl 12/03/2018 6:23 EDT [facility] Blood specimen (specimen) BLOOD SPECIMEN / Unknown 12/03/2018 5:41 EDT 12/03/2018 5:55 EDT Main Kaye MD CHEMISTRY & BLOOD G ORDERABLES Performing Organization Address [facility] de Phone Number [facility] [address] [place] [address] * CREATININE (12/03/2018 5:41 EDT) Creatinine 0.77 0.66 - 1.25 mg/dl 12/03/2018 6:23 EDT [facility] GFR, Calculated 96 >60 ml/min/1.7 3m2 12/03/2018 6:23 EDT [facility] Comment: eGFR calculated using CKD-EPI equation for non Americans. Multiply eGFR by 1.16 for Americans. Blood specimen (specimen) BLOOD SPECIMEN / Unknown 12/03/2018 5:41 EDT 12/03/2018 5:55 EDT Main Kaye MD CHEMISTRY & BLOOD G ORDERABLES Performing Organization Address [facility] Co de Phone Number [facility] [address] [place] [address] * COMPLETE BLOOD COUNT (12/03/2018 5:41 EDT) WBC 8.31 4.0 - 10.4 K/cmm 12/03/2018 6:05 EDT [facility] RBC 5.56 4.36 - 5.78 M/cmm 12/03/2018 6:05 EDT [facility] Hemoglobin 15.7 13.8 - 17.3 gm/dl 12/03/2018 6:05 [facility] HCT 46.5 39.5 - 50.2 % 12/03/2018 6:05 [facility] MCV 84 81 - 95 fl 12/03/2018 6:05 [facility] MCH 28.2 27.6 - 33.0 pg 12/03/2018 6:05 [facility] MCHC 33.8 32.8 - 36.4 gm/dl 12/03/2018 6:05 [facility] RDW-CV 13.6 <14.2 % 12/03/2018 6:05 [facility] RDW-SD 41.6 <46.0 fl 12/03/2018 6:05 [facility] PLT 266 141 - 377 K/cmm 12/03/2018 6:05 [facility] MPV 10.3 9.5 - 12.7 fl 12/03/2018 6:05 [facility] Blood specimen (specimen) BLOOD SPECIMEN / Unknown 12/03/2018 5:41 EDT 12/03/2018 5:55 EDT Main Kaye MD HEMATOLOGY & PF4 OR DERABLES [facility] [address] [place] [address] * ELECTROLYTES (12/03/2018 5:41 EDT) Sodium 136 136 - 145 mEq/L 12/03/2018 6:23 [facility] Potassium 4.5 3.5 - 5.0 mEq/L 12/03/2018 6:23 [facility] Chloride 97 96 - 110 mEq/L 12/03/2018 6:23 T [facility] CO2 28 22 - 32 mEq/L 12/03/2018 6:23 T [facility] Blood specimen (specimen) BLOOD SPECIMEN / Unknown 12/03/2018 5:41 EDT 12/03/2018 5:55 EDT Main Kaye MD CHEMISTRY & BLOOD G ORDERABLES Performing Organization Address [facility]/ZIP Co de Phone Number [facility] [address] [place] [address] * HEMOGLOBIN A1C (12/03/2018 5:41 EDT) Hemoglobin A1C 7.0 % 12/03/2018 9:51 EDT [facility] Comment: Reference Range: <5.7% Normal 5.7-6.4% Prediabetes =>6.5% Diagnostic for diabetes (if confirmed) Goals for glycemic control in diabetes ADA 2017 For non adults with diabetes: ?? Target <7.0% For children and adolescents with type 1 diabetes: ?? Target <7.5% More or less stringent targets may be appropriate for individual patients. Est Avg Glucose 154 mg/dl 9 9:51 EDT [facility] Comment: eAG represents the A1c result expressed as average glucose in mg/dl. Blood specimen (specimen) BLOOD SPECIMEN / Unknown 12/03/2018 5:41 EDT 12/03/2018 5:55 EDT Birgit Dunn MD CHEMISTRY & B LOOD GAS ORDERABLES Performing Organization Address [facility] Co de Phone Number [facility] [address] [place] [address] * HEPARIN LEVEL - UNFRACTIONATED HEPARIN (12/03/2018 1:09 EDT) Heparin Level-UFH 0.46 IU/mL 019 1:33 EDT [facility] Comment: Unfractionated heparin therapeutic [...] Birgit Dunn MD HEMATOLOGY & PF4 ORDERABLES [facility] [address] [place] [address] * INPATIENT ADD-ON (12/02/2018 19:35 EDT) Tests to be added TROPONIN 12/02/2018 19:31 EDT [facility] Number for problems [id number] 12/02/2018 19:38 EDT [facility] Accession number HUGOI ALREADY PENDING ON ACC NUMBER [id number] 12/02/2018 19:38 EDT [facility] TOPOGRAPHY UNKNOWN / Unknown 12/02/2018 19:35 EDT 12/02/2018 19:37 EDT Main Kaye MD HEMATOLOGY & PF4 OR DERABLES Performing Organization Address City/[facility] Co de Phone Number [facility] [address] [place] [address] * (ABNORMAL) GLUCOSE, GLUCOMETER (12/02/2018 19:05 EDT) Glucose, Fingerstick 118(H) 70 - 100 mg/dl 12/02/2018 20:04 EDT [facility] Doubling Machine Operator ID [id number] 12/02/2018 20:04 EDT [facility] Comment:Test Performed by [facility] BLOOD SPECIMEN / Unknown 12/02/2018 19:05 EDT 12/02/2018 20:04 EDT Birgit Dunn MD CHEMISTRY & B LOOD GAS ORDERABLES [facility] [address] [place] [address] * BUN (12/02/2018 18:37 EDT) BUN 14 10 - 26 mg/dl 12/02/2018 19:26 EDT [facility] Blood specimen (specimen) BLOOD SPECIMEN / Unknown 12/02/2018 18:37 EDT 12/02/2018 18:58 EDT Main Kaye MD CHEMISTRY & BLOOD G ORDERABLES Performing Organization Address [facility] Co de Phone Number [facility] [address] [place] [address] * MAGNESIUM (12/02/2018 18:37 EDT) Magnesium 2.2 1.7 - 2.8 mg/dl 12/02/2018 19:26 EDT [facility] Blood specimen (specimen) BLOOD SPECIMEN / Unknown 12/02/2018 18:37 EDT 12/02/2018 18:58 EDT Main Kaye MD CHEMISTRY & BLOOD G ORDERABLES Performing Organization Address [facility] de Phone Number [facility] [address] [place] [address] * CREATININE (12/02/2018 18:37 EDT) Creatinine 0.74 0.66 - 1.25 mg/dl 12/02/2018 19:26 EDT [facility] GFR, Calculated 97 >60 ml/min/1.7 3m2 12/02/2018 19:26 T [facility] Comment: eGFR calculated using CKD-EPI equation for non Americans. Multiply eGFR by 1.16 for Americans. Blood specimen (specimen) BLOOD SPECIMEN / Unknown 12/02/2018 18:37 EDT 12/02/2018 18:58 EDT Main Kaye MD CHEMISTRY & BLOOD G ORDERABLES Performing Organization Address [facility] Co de Phone Number [facility] [address] [place] [address] * COMPLETE BLOOD COUNT (12/02/2018 18:37 EDT) WBC 10.26 4.0 - 10.4 K/cmm 12/02/2018 19:09 EDT [facility] RBC 5.58 4.36 - 5.78 M/cmm 12/02/2018 19:09 EDT [facility] Hemoglobin 15.7 13.8 - 17.3 gm/dl 12/02/2018 19:09 [facility] HCT 46.5 39.5 - 50.2 % 12/02/2018 19:09 [facility] MCV 83 81 - 95 fl 12/02/2018 19:09 [facility] MCH 28.1 27.6 - 33.0 pg 12/02/2018 19:09 [facility] MCHC 33.8 32.8 - 36.4 gm/dl 12/02/2018 19:09 [facility] RDW-CV 13.5 <14.2 % 12/02/2018 19:09 [facility] RDW-SD 41.3 <46.0 fl 12/02/2018 19:09 [facility] PLT 297 141 - 377 K/cmm 12/02/2018 19:09 [facility] MPV 10.5 9.5 - 12.7 fl 12/02/2018 19:09 [facility] Blood specimen (specimen) BLOOD SPECIMEN / Unknown 12/02/2018 18:37 EDT 12/02/2018 18:58 EDT Main Kaye MD HEMATOLOGY & PF4 OR DERABLES [facility] [address] [place] [address] * ELECTROLYTES (12/02/2018 18:37 EDT) Sodium 136 136 - 145 mEq/L 12/02/2018 19:26 T [facility] Potassium 4.6 3.5 - 5.0 mEq/L 12/02/2018 19:26 [facility] Chloride 97 96 - 110 mEq/L 12/02/2018 19:26 [facility] CO2 28 22 - 32 mEq/L 12/02/2018 19:26 [facility] Blood specimen (specimen) BLOOD SPECIMEN / Unknown 12/02/2018 18:37 EDT 12/02/2018 18:58 EDT Main Kaye MD CHEMISTRY & BLOOD G ORDERABLES Performing Organization Address [facility] de Phone Number [facility] [address] [place] [address] * TROPONIN I (12/02/2018 18:37 EDT) Troponin I (ng/mL) <0.034 <0.034 ng/ml 12/02/2018 19:40 EDT [facility] Comment: The results of this assay can be falsely lowered due to the consumption of Biotin. Blood specimen (specimen) BLOOD SPECIMEN / Unknown 12/02/2018 18:37 EDT 12/02/2018 18:58 EDT Main Kaye MD CHEMISTRY & BLOOD G ORDERABLES Performing Organization Address [facility] de Phone Number [facility] [address] [place] [address] * EKG 12-LEAD (12/02/2018 18:08 EDT) 12/02/2018 18:0 8 EDT Narrative [facility] EKG - 12/03/2018 13:42 EDT ? [facility] ? Test Date: ?2018-12-02 Pat Name: ? CLAUDIA BATISTA ? Department: ?? Min 5 ? Room: ? ME505 Gender: ? Male ? Trade Mark Attorney: ?? [id number] : ?1955 ? Requested By: ALEX ROBLEDO Order Number: [id number] ? Reading MD: ?? KENAN GORDON MD ? Measurements Intervals ?Silva ? Rate: ? 62 ? P: ?21 NJ: ? 228 ?QRS: ?70 QRSD: ? 112 [...] Note Kenan Gordon MD - 12/03/2018 [facility] Test Date: 2018-12-02 Pat Name: CLAUDIA BATISTA Department: Min Rosanna Room: [facility] Gender: Male Trade Mark Attorney: [id number] : 1955 Requested By: ALEX ROBLEDO Order Number: [id number] Reading MD: KENAN GORDON MD Measurements Intervals Silva Rate: 62 P: 21 NJ: 228 QRS: 70 QRSD: 112 T: 11 QT: 406 QTc: 415 Interpretive Statements SINUS RHYTHM WITH FIRST DEGREE AV BLOCK MODERATE INTRAVENTRICULAR CONDUCTION DELAY Compared to ECG 02/11/2016 12:39:08 No significant change I reviewed the tracing and have either agreed or edited the findings inthis report. Electronically Signed On 12-03-2018 13:42:36 EDT by KENAN CAMPA. Birgit Dunn MD CARDIAC ECG O RDERABLES [facility] EKG documented in this encounter Visit Diagnoses Diagnosis Chest pain- Primary Chest pain, unspecified NSTEMI (non-ST elevated myocardial infarction) (HCC-CMS) Acute myocardial infarction, subendocardial infarction, episode of care unspecified Unstable angina (HCC-CMS) Intermediate coronary syndrome Chest pain, unspecified type Coronary atherosclerosis Coronary atherosclerosis of unspecified type of vessel, mashpee or graft Hyperlipidemia with target LDL less [...] (Without Time Specified), 1 dose, Starting on Darlin 12/02/18 at 1818, Until Thu12/02/18 at 1937, Routine [...] Thu12/03/18 at 1423, Until Thu12/03/18 at 2037 fentaNYL citrate (PF) injection intravenous, PRN, Starting on Thu12/03/18 at 1447, Until Thu12/03/18 at 1447, Routine Given 12/03/2018 14:47 EDT 50 mcg glucagon injection 1 mg 1 mg, intramuscular, PRN, Starting on Thu12/02/18 at 1843, Until Thu12/03/18 at 203, Low blood sugar, Routine heparin 1,000 unit/mL injection 5,900 Units 5,900 Units (rounded from 5,887 Units = 70 Units/kg ? 84.1 kg Adjusted weight), intravenous, NOW X1, 1 dose, On Thu12/02/18 at 1845, STAT Given 12/02/2018 18:57 EDT 5,900 Units heparin 1,000 unit/mL injection 1 dose, Starting on Thu12/03/18 at 1423, Until Thu12/03/18 at 2037 heparin in 1/2 NS 25,000 unit/250 mL [...] Thu12/03/18 at 1423, Until Thu12/03/18 at 2037 lisinopril (PRINIVIL, ZESTRIL) tablet 5 mg 5 [...] Until Thu12/03/18 at 2037 midazolam (PF) (VERSED) injection intravenous, PRN, Starting on Thu12/03/18 at 1447, Until Thu12/03/18 at 1447, Routine Given 12/03/2018 14:47 EDT 1 mg nitroglycerin 100 mcg/mL syringe 1 dose, Starting on Thu12/03/18 at 1423, Until Thu12/03/18 at 2037 rosuvastatin (CRESTOR) tablet 40 mg 40 mg, [...] intravenous, EVERY 8 HOURS, First dose on Darlin 12/02/18 at 1815, Until Discontinued, Routine Given 12/03/2018 [...] Routine 0958 (Given - Provid er: Juvenal hCristiansen RN) lisinopril (PRINIVIL, ZESTRIL) tablet 5 mg [...] on Thu12/02/18 at 1815, Until Discontinued, Routine 1838 (Given - Provider: Laura Mart RN) 0028 [...] to 12.7 mL/hr), intravenous, CONTINUOUS, Starting on Darlin 12/02/18 at 1900, Until Thu12/03/18 at 1455, Routine 1857 (New Bag - Provider: Laura Mart RN)1939 (Rate Documented - Provider: Eric Brand RN) 0000 (Rate Documented - Provider: Eric Brand RN)0757 (Rate Documented - Provider: Juvenal Christiansen, JANNY)1433 (Completed - Provider: Puja Live RN) PRN [...] Darlin 12/02/18 at 1750, Until Thu12/03/18 at 2038, Chest [...] Thu12/03/18 at 1423, Until Thu12/03/18 at 2038 heparin 1,000 unit/mL injection 1 dose, Starting on Thu12/03/18 at 1423, Until Thu12/03/18 at 203 lidocaine 20 mg/mL (2 %) injection 1 [...] 12/03/2018 nitroglycerin 100 mcg/mL syringe 1 12/04/19 19 verapamil (ISOPTIN) 2.5 mg/mL injection 1 0 [...] 11/17 documented in this encounter Care Teams Physical Design Engineer Relationship Specialty Start Date End Date Denise Hooker APRN [address] [place] [address] PCP - General 09/13/18 documented as of this encounter
--- OUTSIDE RECORDS SUMMARY | 2024-05-06 04:54 | XMS_ITS | Encounter Summary ---
Author Organization [facility] Address [address] [place] [address] Care Team Providers Care Gymnastics Instructor Name Role Phone Gregoria Nicholas MD Primary Care Provider [phone] Reason for Visit * Reason Comments Coronary Artery Disease Hypertension Hyperlipidemia Encounter Details Date Type Department Care Team (Latest Contact Info) Description 11/01/2013 9:10 EDT Office Visit [facility] Cardiology - [address] [place] [address] Broderick Galloway MD [address] [place] [address] Coronary atherosclerosis of unspecified type of vessel, [place] or graft (Primary Dx) Social History Tobacco [...] none Past Medical History Diagnosis Date ??? [place] (myocardial infarction) 1992, 2003 ??? CAD (coronary [...] or interrupt this medication withour discussing with manager switch Start this medication in one month. First [...] Description 08/08/2024 13:00 EST Office Visit [facility] Gastroenterology - [address] [address] Kera Tatum PA-C 111 [facility], [address] [place] [phone] 11/15/2024 18:30 EDT Office Visit [facility] Cardiology - [address] [place] [address] Davian Almonte MD [address] [place], [place] [address] documented as of this encounter Visit Diagnoses Diagnosis Coronary atherosclerosis of unspecified type of vessel, [place] or graft- Primary documented in this encounter [...] daily. added in this encounter Care Teams Gymnastics Instructor Relationship Specialty Start Date End Date Gregoria Nicholas MD [address] [place] [address] PCP - General 10/27/12 09/12/18 documented as of this encounter
--- OUTSIDE RECORDS SUMMARY | 2024-05-06 04:54 | XMS_ITS | Encounter Summary ---
Author Organization [facility] Address [address] [place] [address] Care Team Providers Care Tank Bottom Assembler Name Role Phone Gregoria Nicholas MD Primary Care Provider [phone] Reason for Visit * Reason Comments Coronary Artery Disease 1 YR - no cardia c complaints Encounter Details Date Type Department Care Team (Latest Contact Info) Description 09/10/2017 10:30 EST Office Visit [facility] Cardiology - [address] [place], [place] [phone] Broderick Galloway MD [address] [place] [address] Atherosclerosis of navajo coronary artery of navajo heart without angina pectoris (Primary Dx) Social [...] RCA; 2004 stents X2 ??? Diabetes mellitus ([facility]) oral agents ??? Diverticulitis ??? Hyperlipidemia ??? Hypertension ??? [place] (myocardial infarction) 1992, 2003 ??? Recurrent infections rt foot 5th toe Patient Active Problem List Diagnosis Date Noted ??? NSTEMI (non-ST elevated myocardial infarction) ([facility]) 02/10/2016 Priority: Medium ??? Coronary atherosclerosis 09/07/2009 ??? Hyperlipidemia with target LDL less than 70 09/07/2009 ??? Hypertensive disorder 09/07/2009 ??? Diabetes mellitus ([facility]) 09/07/2009 Current Outpatient Prescriptions Medication Sig Dispense [...] Office Visit [facility] Gastroenterology - [address] [phone] Kera Tatum PA-C 111 [facility], [facility], [address] [place] [phone] 11/15/2024 18:30 EDT Office Visit [facility] Cardiology - [place] [place] [address] Davian Almonte MD [address] [place], [place] [address] documented as of this encounter Visit Diagnoses Diagnosis Atherosclerosis of navajo coronary artery of navajo heart without angina pectoris- Primary documented in [...] daily. added in this encounter Care Teams Tank Bottom Assembler Relationship Specialty Start Date End Date Gregoria Nicholas MD [address] [place] [address] PCP - General 10/27/12 09/12/18 documented as of this encounter
--- OUTSIDE RECORDS SUMMARY | 2024-05-06 04:54 | XMS_ITS | Encounter Summary ---
Author Organization [facility] Address [address] [place] [address] Care Team Providers Care Security Officers And Guards Name Role Phone Gregoria Nicholas MD Primary Care Provider [phone] Encounter Details Date Type Department Care Team (Late st Contact Info) Description 05/11/2015 Results Only [facility] [phone] Chinmay Brown MD [address] [place] [phone] Social History Tobacco Use Types Packs/Day Years [...] Info) Description 08/08/2024 13:00 EST Office Visit [facility] Gastroenterology - [facility] [address] [place] [address] Kera Tatum PA-C 111 [facility], [address] [place] [phone] 11/15/2024 18:30 EDT Office Visit [facility] Cardiology - [address] [place], [place] [phone] Davian Almonte MD [address] [place], [place] [phone] documented as of this encounter Procedures Procedure [...] reading/interpreti ng unformatted reports. Name: ? CLAUDIA TRUJILLO ? Accession #: ? [id number] ? : ? 1955 (Age: 59) ??M [...] the bone discloses rock-white, indurated, trabecular bone. Electrical Appliance Repairer sections are submitted as follows: BLOCK FUNK 1- ??soft tissue 2- ??bone, following decalcification Ana Laguerre 05/14/2015 10:47 AM End of Report [facility] 05/11/2015 17:5 1 EDT 05/11/2015 17:51 EDT Chinmay Brown MD PATHOLOGY ORDERABLE S [facility] [address] [place] [address] documented in this encounter Visit Diagnoses Not on filedocumented in this encounter Care Teams Security Officers And Guards Relationship Specialty Start Date End Date Gregoria Nicholas MD [address] [place] [address] PCP - General 10/27/12 09/12/18 documented as of this encounter
--- OUTSIDE RECORDS SUMMARY | 2024-05-06 04:54 | XMS_ITS | Encounter Summary ---
Author Organization [facility] Address [address] [place] [address] Care Team Providers Care Laundry Clerk Name Role Phone Gregoria Nicholas MD Primary Care Provider [phone] Reason for Visit * Reason Onset Date Comments Returning Call 02/29/2016 Sina's call Encounter Details Date Type Department Care Team ([facility] Contact Info) Description 02/29/2016 Telephone [facility] Cardiology - [address] [place] [address] Broderick Galloway MD [address] [place] [address] Returning Call (Sina's call) Social History [...] [facility] Gastroenterology - [address] [phone] Kera Tatum PA-C 111 [facility], [facility], [address] [place] [phone] 11/15/2024 18:30 EDT Office Visit [facility] Cardiology - [address] [place], [place] [phone] Davian Almonte MD [address] [place], [place] [phone] documented as of this encounter Visit Diagnoses Not on filedocumented in this encounter Care Teams Laundry Clerk Relationship Specialty Start Date End Date Gregoria Nicholas MD [address] [place] [address] PCP - General 10/27/12 09/12/18 documented as of this encounter
--- OUTSIDE RECORDS SUMMARY | 2024-05-06 04:54 | XMS_ITS | Encounter Summary ---
Author Organization [facility] Address [address] [place] [address] Care Team Providers Care Drier Helper Name Role Phone Gregoria Nicholas MD Primary Care Provider [phone] Encounter Details Date Type Department Care Team (Late st Contact Info) Description 04/02/2015 Results Only Imaging [facility] Cardiology - [address] [place] [address] Broderick Galloway MD [address] [place] [address] Social History Tobacco Use Types Packs/Day [...] Office Visit [facility] Gastroenterology - [facility] [address] [place], [place] [address] Kera Tatum PA-C 111 [facility], [facility], [address] [place] [address] 11/15/2024 18:30 EDT Office Visit [facility] Cardiology - [address] [place], [place] [phone] Davian Almonte MD [address] [place], [place] [phone] documented as of this encounter Procedures Procedure Name Priority Date/Time Associated Diagnosis Comments STRESS ECHOCARDIOGRAM 04/03/2015 10:22 EDT documented in this encounter Results * STRESS ECHOCARDIOGRAM (04/03/2015 10:22 EDT) Anatomical Region Laterality Modality Other 04/03/2015 10:2 2 EDT Narrative 04/03/2015 12:49 EDT *Interpreting Group:* *[facility]iology* [address] [place] [address] ?? Date of study: 04/03/2015 ?? Stress [...] Galloway MD ORDERING ? Broderick Galloway MD SOCIAL MEDIA ANALYST ? Amy Pate ARMATURE CONNECTOR ??Amy Juarez WEAPONS SPECIALIST ??Farzana Guzman PERFORMING ?? [facility], Stress *PROCEDURE DATA* Procedure information: ??Dr. Elier Kang supervised and was readily available during the procedure. This study was interpreted by [facility] [...] contrast (Definity) was administered by Farzana Guzman NANY to enhance delineation [...] *INDICATIONS AND HISTORY* Indications: ?? CAD of duckwater vessels 414.01 (Pre op). History: ?PMH: ??59yo [...] Recovery; 6 min ? 81 134/66 ? (63) ? + +---+ + +--------+ Recovery; 7 [...] peak heart rate and blood pressure was 95935bo Hg/min. ??The patient experienced no chest pain [...] Silva MD - 04/03/2015 *Interpreting Group:* *[facility] Cardiology* [address] [place] [address] Date of study: 04/03/2015 Stress Echocardiography Gary [...] Broderick Galloway MD ORDERING Broderick Galloway MD SOCIAL MEDIA ANALYST Amy Pate ARMATURE CONNECTORAmy Long WEAPONS SPECIALIST Farzana Guzman PERFORMING [facility], Stress *PROCEDURE DATA* Procedure information: Dr. Elier Kang supervised and was readilyavailable during the procedure. This study was interpreted by [facility]. Pertinent images and digital data [...] contrast (Definity) was administered by Farzana Guzman [facility] toenhance delineation of left ventricular [...] complications. *INDICATIONS AND HISTORY* Indications: CAD of duckwater vessels 414.01 (Pre op). History: PMH: 59yo [...] the peak heart rate and bloodpressure was 90944ht Hg/min. The patient experienced no chest pain [...] signed by Hardeep Silva MD 04/03/2015 12:49 Broderick Galloway MD CARDIAC ECHO ORDERAB LES documented in this encounter Visit Diagnoses Not on filedocumented in this encounter Care Teams Drier Helper Relationship Specialty Start Date End Date Gregoria Nicholas MD [address] [place] [phone] PCP - General 10/27/12 09/12/18 documented as of this encounter
--- OUTSIDE RECORDS SUMMARY | 2024-05-06 04:54 | XMS_ITS | Encounter Summary ---
Author Organization [facility] Address [address] [place] [address] Care Team Providers Care Rn Building Name Role Phone Gregoria Nicholas MD Primary Care Provider [phone] Encounter Details Date Type Department Care Team (Latest Contact Info) Description 09/03/2015 14:00 EST - 09/03/2015 23:59 EST Hospital Encounter [facility] [address] [place] [address] Joaquín Carpenter MD [address] [place] [phone] Discharge Disposition: Home or Self Care Social [...] or interrupt this medication withour discussing with hull builder Start this medication in one month. First [...] Code Departure Means Destination Home or Self Intermediate documented in this encounter Plan of Treatment Upcoming Encounters Date Type Department Care Team (Late st Contact Info) Description 08/08/2024 13:00 EST Office Visit [facility] Gastroenterology [address], [place] [address] Kera Tatum PA-C 111 [facility], [facility], [address] [place] [phone] 11/15/2024 18:30 EDT Office Visit [facility] Cardiology - [address] [place], [place] [phone] Davian Almonte MD [address] [place], [place] [address] documented as of this encounter Procedures Procedure Name Priority Date/Time Associated Diagnosis Comments STRESS TEST - SCANNED 09/12/2015 7:50 EST documented in this encounter Results * STRESS TEST - SCANNED (09/12/2015 7:50 EST) Anatomical Region Laterality Modality Other 09/12/2015 7:50 EST Scan 2 Cost Engineer IMG OTHER IMAGING O RDERABLES documented in this encounter Visit Diagnoses Not on filedocumented in this encounter Care Teams Rn Building Relationship Specialty Start Date End Date Gregoria Nicholas MD [address] [place] [address] PCP - General 10/27/12 09/12/18 documented as of this encounter
--- OUTSIDE RECORDS SUMMARY | 2024-05-06 04:54 | XMS_ITS | Encounter Summary ---
Author Organization [facility] Address [address] [place] [address] Care Team Providers Care Beater Machine Operator Name Role Phone Gregoria Nicholas MD Primary Care Provider [phone] Reason for Visit * Reason Comments Coronary Artery Disease Hypertension Hyperlipidemia Fatigue * Follow Up (Routine/Next Available) - Closed Specialty Diagnoses / Procedures Referred By Claire jacques Referred To Contact Cardiology Diagnoses NSTEMI (non-ST elevated myocardial infarction) ([facility]) Broderick Galloway MD [address] [place] [address] Broderick Galloway MD [address] [place] [address] Referral ID Status Reason Start Date Expiration Date V isits Requested Visits Authorized [id number] Closed Specialty Services Required 02/12/2016 1 1 Encounter Details Date Type Department Care Team (Latest Contact Info) Description 03/11/2016 9:00 EDT Office Visit [facility] Cardiology - [place] [address] Broderick Galloway MD [address] [place] [address] Atherosclerosis of [place]ay[place] coronary artery of [place] heart without angina pectoris (Primary Dx) Social [...] Hyperlipidemia ??? Hypertension ??? [place] (myocardial infarction) 1992, 2003 ??? Recurrent infections [...] 08/08/2024 13:00 EST Office Visit [facility] Gastroenterology - [address] [address] Kera Tatum PA-C [address] [place] [address], [facility], [address] [place] [phone] 11/15/2024 18:30 EDT Office Visit [facility] Cardiology - [address] [place] [address] Davian Almonte MD [address] [place], [place] [address] documented as of this encounter Visit Diagnoses Diagnosis Atherosclerosis of [place] coronary artery of [place] heart without angina pectoris- Primary documented in this encounter Care Teams Beater Machine Operator Relationship Specialty Start Date End Date Gregoria Nicholas MD [address] [place] [address] PCP - General 10/27/12 09/12/18 documented as of this encounter
--- OUTSIDE RECORDS SUMMARY | 2024-05-06 04:54 | XMS_ITS | Encounter Summary ---
Author Organization [facility] Address [address] [place] [address] Care Team Providers Care Steel Grinder Name Role Phone Gregoria Nicholas MD Primary Care Provider [phone] Reason for Visit * Reason Comments Coronary Artery Disease Encounter Details Date Type Department Care Team (Latest Contact Info) Description 11/02/2014 9:00 EDT Office Visit [facility] Cardiology - [address] [place] [address] Broderick Galloway MD [address] [place] [address] Coronary atherosclerosis of unspecified type of vessel, [place] or graft (Primary Dx) Social History Tobacco [...] Galloway MD - 11/02/2014 0949 EDT [facility] CARDIOLOGY PROGRESS / FOLLOWUP NOTE - 11/02/2014 Gregoria Nicholas MD [facility] [address] [place] [address] Dear Gregoria: I am writing in regards [...] not hesitate to contact me. Sincerely, Broderick Galloawy MD 09 05 AM - Broderick Galloway MD cn Dictation ID: [id number] cc: Gregoria Nicholas MD, [facility] [address], [place] [address] * Broderick Galloway MD - 11/02/2014 0902 [...] or interrupt this medication withour discussing with classified ad clerk Start this medication in one month. First [...] Visit [facility] Gastroenterology - [address] [address] Kera Tatum PA-C [address] [place] [address], [address] [place] [phone] 11/15/2024 18:30 EDT Office Visit [facility] Cardiology - [address] [place] [address] Davian Almonte MD [address] [place], [place] [address] documented as of this encounter Visit Diagnoses Diagnosis Coronary atherosclerosis of unspecified type of vessel, [place] or graft- Primary documented in this encounter Historical Medications * This list may reflect changes made after this encounter. Medication Sig Dispensed Refills Start Date End Date aspirin 325 mg tablet Take 325 mg by mouth daily 02/12/2016 added in this encounter Care Teams Steel Grinder Relationship Specialty Start Date End Date Gregoria Nicholas MD [address] [place] [address] PCP - General 10/27/12 09/12/18 documented as of this encounter
--- OUTSIDE RECORDS SUMMARY | 2024-05-06 04:54 | XMS_ITS | Encounter Summary ---
Author Organization [facility] Address [address] [place] [address] Care Team Providers Care Nonprofit Fundraiser Name Role Phone Gregoria Nicholas MD Primary Care Provider [phone] Reason for Visit * Reason Comments Cardiac Testing * Cardiology (Routine) - Specialty Report Received Specialty Diagnoses / Procedures Referred By Claire jacques Referred To Contact Diagnoses Coronary atherosclerosis of unspecified type of vessel, [place] or graft Procedures TREADMILL STRESS ECHO Broderick Galloway MD [address] [place] [address] Referral ID Status Reason Start Date Expiration Date V isits Requested Visits Authorized [id number] Specialty Report Received 03/27/2015 1 1 Encounter Details Date Type Department Care Team (Late st Contact Info) Description 04/03/2015 10:30 EDT Procedure visit [facility] Cardiology [place] [address] Broderick Galloway MD [address] [place] [address] Echo, Stress Social History Tobacco [...] Description 08/08/2024 13:00 EST Office Visit [facility] Gastroenterology - [address] [phone] Kera Tatum PA-C 111 [facility], [address] [place] [phone] 11/15/2024 18:30 EDT Office Visit [facility] Cardiology - [address] [place] [address] Davian Almonte MD [address] [place], [place] [address] documented as of this encounter Procedures Procedure Name Priority Date/Time Associated Diagnosis Comments STRESS TEST - SCANNED 04/06/2015 12:30 EDT documented in this encounter Results * STRESS TEST - SCANNED (04/06/2015 12:30 EDT) Anatomical Region Laterality Modality Other 04/06/2015 12:3 0 EDT Scan 2 Juice Scaleman IMG OTHER IMAGING O RDERABLES documented in this encounter Visit Diagnoses Not on filedocumented in this encounter Care Teams Nonprofit Fundraiser Relationship Specialty Start Date End Date Gregoria Nicholas MD [address] [place] [address] PCP - General 10/27/12 09/12/18 documented as of this encounter
--- OUTSIDE RECORDS SUMMARY | 2024-05-06 04:54 | XMS_ITS | Encounter Summary ---
Author Organization [facility] Address [address] [place] [address] Care Team Providers Care Lay Ups Assembler Name Role Phone Gregoria Nicholas MD Primary Care Provider [phone] Reason for Visit * Reason Onset Date Comments Appointment Related 08/31/2015 Encounter Details Date Type Department Care Team ([facility] Contact Info) Description 08/31/2015 Telephone [facility] Non-Invasive Cardiology - [facility] [address] [place] [address] Puja Leggett, RN [address] [place] [address] Appointment Related Social History Tobacco Use Types [...] Info) Description 08/08/2024 13:00 EST Office Visit [facility] Gastroenterology - [address] [phone] Kera Tatum PA-C [address] [place] [address], [address] [place] [phone] 11/15/2024 18:30 EDT Office Visit [facility] Cardiology - [address] [place] [address] Davian Almonte MD [address] [place], [place] [address] documented as of this encounter Visit Diagnoses Not on filedocumented in this encounter Care Teams Lay Ups Assembler Relationship Specialty Start Date End Date Gregoria Nicholas MD [address] [place] [address] PCP - General 10/27/12 09/12/18 documented as of this encounter
--- OUTSIDE RECORDS SUMMARY | 2024-05-06 04:54 | XMS_ITS | Encounter Summary ---
Author Organization [facility] Address [address] [place] [address] Care Team Providers Care Cloth Calender Name Role Phone Gregoria Nicholas MD Primary Care Provider [phone] Reason for Visit * Reason Comments Coronary Artery Disease Encounter Details Date Type Department Care Team ([facility] Contact Info) Description 11/06/2015 9:00 EDT Office Visit [facility] Cardiology - [address] [place] [address] Broderick Galloway MD [address] [place] [address] Shortness of breath (Primary Dx); Atherosclerosis of [place] coronary artery of [place] heart without angina pectoris [I25.10] Discharge Disposition: [...] of breath-R06.02[ICD-10-CM] I25.10 Atherosclerotic heart disease of [place] coronary artery without angina pectoris-I25.10[ICD-10-CM] documented in [...] none Past Medical History Diagnosis Date ??? DC (myocardial infarction) 1992, 2003 ??? CAD (coronary [...] or interrupt this medication withour discussing with director of curriculum Start this medication in one month. First [...] 08/08/2024 13:00 EST Office Visit [facility] Gastroenterology - [address] [address] Kera Tatum PA-C 111 [facility], [address] [place] [phone] 11/15/2024 18:30 EDT Office Visit [facility] Cardiology [place] [place] [address] Davian Almonte MD [address] [place], [place] [address] documented as of this encounter Results * HEMAGRAM (11/06/2015 9:19 EDT) WBC 8.44 4.0 - 10.4 K/cmm 11/06/2015 11:15 EDT [facility] RBC 5.09 4.36 - 5.78 M/cmm 11/06/2015 11:15 EDT [facility] Hemoglobin 14.2 13.8 - 17.3 gm/dl 11/06/2015 11:15 EDT [facility] HCT 41.7 39.5 - 50.2 % 11/06/2015 11:15 T [facility] MCV 82 81 - 95 fl 11/06/2015 11:15 T [facility] MCH 27.9 27.6 - 33.0 pg 11/06/2015 11:15 T [facility] MCHC 34.1 32.8 - 36.4 gm/dl 11/06/2015 11:15 T [facility] RDW-CV 12.4 11.8 - 14.1 % 11/06/2015 11:15 [facility] RDW-SD 37.2 36.5 - 45.9 fl 11/06/2015 11:15 [facility] PLT 299 141 - 377 K/cmm 11/06/2015 11:15 [facility] MPV 10.8 9.5 - 12.7 fl 11/06/2015 11:15 [facility] Blood specimen (specimen) BLOOD SPECIMEN / Unknown 11/06/2015 9:19 EDT 11/06/2015 10:59 EDT Broderick Galloway MD HEMATOLOGY & PF4 ORD ERABLES [facility] [address] [place] [address] documented in this encounter Visit Diagnoses Diagnosis Shortness of breath- Primary Atherosclerosis of [place] coronary artery of [place] heart without angina pectoris [I25.10] documented in this encounter Care Teams Cloth Calender Relationship Specialty Start Date End Date Gregoria Nicholas MD [address] [place] [address] PCP - General 10/27/12 09/12/18 documented as of this encounter
--- OUTSIDE RECORDS SUMMARY | 2024-05-06 04:54 | XMS_ITS | Encounter Summary ---
Author Organization [facility] Address [address] [place] [address] Care Team Providers Care Steel Pourer Name Role Phone Gregoria Nicholas MD Primary Care Provider [phone] Reason for Visit * Reason Comments Coronary Artery Disease Hypertension Hyperlipidemia Encounter Details Date Type Department Care Team (Latest Contact Info) Description 02/05/2016 13:40 EDT Office Visit [facility] Cardiology - [address] [place] [address] Broderick Galloway MD [address] [place] [address] Atherosclerosis of [place] coronary artery of [place] heart without angina pectoris [I25.10] (Primary Dx) [...] or interrupt this medication withour discussing with treating machine operator Start this medication in one [...] Office Visit [facility] Gastroenterology - [address] [address] Kera Tatum PA-C [address] [place] [address], [facility], [address] [place] [phone] 11/15/2024 18:30 EDT Office Visit [facility] Cardiology - [place] [place] [address] Davian Almonte MD [address] [place], [place] [address] documented as of this encounter Visit Diagnoses Diagnosis Atherosclerosis of [place] coronary artery of [place] heart without angina pectoris [I25.10]- Primary documented [...] 12/03/2018 added in this encounter Care Teams Steel Pourer Relationship Specialty Start Date End Date Gregoria Nicholas MD [address] [place] [address] PCP - General 10/27/12 09/12/18 documented as of this encounter
--- OUTSIDE RECORDS SUMMARY | 2024-05-06 04:54 | XMS_ITS | Encounter Summary ---
Author Organization [facility] Address [address] [place] [address] Care Team Providers Care Order Worker Name Role Phone Denise Hooker JENNIFER Primary Care Provider [phone] Reason for Visit * Reason Onset Date Comments Appointment Related 12/02/2018 Encounter Details Date Type Department Care Team ([facility] Contact Info) Description 12/02/2018 Telephone [facility] Cardiology - [address] [place] [address] Broderick Galloway MD [address] [place] [address] Appointment Related Social History Tobacco Use [...] Dr. Galloway after pt is released from [facility]. PCP ordered a NUC and echo, which they want cancelled. They were told doctor here would order the echo. Spoke to PCP, Kavya Duarte NP. She saw pt on 11/26 for new onset angina. Pt has had 2 episodes, was sent to [facility]. Being transferred to [facility] . documented in this encounter Plan of Treatment Upcoming Encounters Date Type Department Care Team (Late st Contact Info) Description 08/08/2024 13:00 EST Office Visit [facility] Gastroenterology - [address] [address] Kera Tatum PA-C 111 [facility], [address] [place] [phone] 11/15/2024 18:30 EDT Office Visit [facility] Cardiology - [address] [address] Davian Almonte MD [address] [place], [place] [address] documented as of this encounter Visit Diagnoses Not on filedocumented in this encounter Care Teams Order Worker Relationship Specialty Start Date End Date Denise Hooker APRN [address] [place] [address] PCP - General 09/13/18 documented as of this encounter
--- OUTSIDE RECORDS SUMMARY | 2024-05-06 04:54 | XMS_ITS | Encounter Summary ---
Author Organization [facility] Address [address] [place] [address] Care Team Providers Care Segment Producer Name Role Phone Gregoria Nicholas MD Primary Care Provider Encounter Details Date Type Department Care Team (Latest Contact Info) Description 05/11/2015 8:34 EDT - 05/11/2015 23:59 EDT Hospital Encounter [address] [address] Unknown, Provider, Discharge Disposition: Home or Self [...] or interrupt this medication withour discussing with flight crew ordnanceman Start this medication in one month. First [...] Info) Description 08/08/2024 13:00 EST Office Visit [facility] Gastroenterology - [address] [address] Kera Tatum PA-C [address] [place] [address], [address] [place] [address] 11/15/2024 18:30 EDT Office Visit [facility] Cardiology - [address] [place], [place] [phone] Davian Almonte MD [address] [place] [address] documented as of this encounter Procedures Procedure [...] [facility] Stress ? Test Date: ?2015-09-03 Pat Name: ? CLAUDIA TRUJILLO ? Department: ? Room: ? Gender: ? M ?Photographic Enlarger Operator: ?? : ?1955 ? Requested By: JAYDEN Delgado Number: [id number] ?Reading MD: ? Interpretive Statements Procedure Note ENGINEERING MANAGER ELECTRONICS, IMAGING - 09/03/2015 For report of this Waveform, see associated Image Study. [facility] Stress Test Date: 2015-09-03 Pat Name: CLAUDIA TRUJILLO Department: Room: Gender: M Photographic Enlarger Operator: : 1955 Requested By: JAYDEN GROVER Order Number: [id number] Messi MD: Interpretive Statements Joaquín Carpenter MD CARDIAC ECHO ORDERAB LES * STRESS ECHOCARDIOGRAM (09/03/2015 14:43 EST) Anatomical Region Laterality Modality Other 09/03/2015 14:4 3 EST Narrative 09/03/2015 16:42 EST *Interpreting Group:* *[facility] Cardiology* [address] [place] [address] ?? Date of study: 09/03/2015 ?? Stress [...] ORDERING ? Joaquín Carpenter REFERRING ?Joaquín Carpenter NEWSPAPER DELIVERER ??Ken Haque [facility] QUALITY ENGINEER MEDICAL DEVICE ? Leyda Castaneda FELLOW ? Trevor Tovar PERFORMING ?? [facility], Stress AQUATICS LIFEGUARD ??Regina Bajwa *PROCEDURE DATA* Procedure information: ??Dr. [...] machine. ECG tracings were obtained using the Bright!Taxe 4 machine. A 22 gauge IV was [...] + Recovery; 3 min ?? 103 174/64 (938) ? + +---+ + +------+ + Recovery; 6 min ?? 93 164/62 (46) ? + +---+ + +------+ + Recovery; [...] peak heart rate and blood pressure was [id number] Hg/min. The patient experienced no chest pain [...] Daniel MD - 09/03/2015 *Interpreting Group:* *[facility] Cardiology* [address] [place] [address] Date of study: 09/03/2015 Stress Echocardiography Gary [...] Joaquín ORDERING Jayden, Joaquín REFERRING Jayden, Joaquín NEWSPAPER DELIVERER Ken Haque, [facility] QUALITY ENGINEER MEDICAL DEVICE Leyda Castaneda Preeth PERFORMING [facility], Stress AQUATICS LIFEGUARD Regina Bajwa *PROCEDURE DATA* Procedure information: Dr. Cipriano Daniel supervised and was readilyavailable during the procedure. This study was interpreted by [facility] Cardiology. Pertinent images and [...] and peak exercise. Images were obtained using Watson Brown IE33 4 cardiac ultrasound machine. ECG tracings were obtained using theX-scribe 4 machine. A 22 gauge IV was [...] the peak heart rate and blood pressure [id number] Hg/min. The patient experienced no chest pain [...] on filedocumented in this encounter Care Teams Segment Producer Relationship Specialty Start Date End Date Gregoria Nicholas MD [address] [place] [address] PCP - General 10/27/12 09/12/18 documented as of this encounter
--- OUTSIDE RECORDS SUMMARY | 2024-05-06 04:54 | XMS_ITS | Encounter Summary ---
Author Organization [facility] Address [address] [place] [address] Care Team Providers Care Laundry Helper Name Role Phone Gregoria Nicholas MD Primary Care Provider [phone] Reason for Visit * Reason Onset Date Comments Advice Only 09/03/2015 Encounter Details Date Type Department Care Team ([facility] Contact Info) Description 09/03/2015 Telephone [facility] Cardiology - [address] [place] [address] Broderick Galloway MD [address] [place] [address] Advice Only Social History Tobacco Use [...] accepted this. No communication barriers noted. Mary Tanner RN * Telephone Encounter - Raad Stockton [...] Description 08/08/2024 13:00 EST Office Visit [facility] Gastroenterology - [address] [phone] Kera Tatum PA-C 111 [facility], [address] [place] [phone] 11/15/2024 18:30 EDT Office Visit [facility] Cardiology - [address] [place] [address] Davian Almonte MD [address] [place], [place] [address] documented as of this encounter Visit Diagnoses Not on filedocumented in this encounter Care Teams Laundry Helper Relationship Specialty Start Date End Date Gregoria Nicholas MD [address] [place] [address] PCP - General 10/27/12 09/12/18 documented as of this encounter
--- OUTSIDE RECORDS SUMMARY | 2024-05-06 04:54 | XMS_ITS | Encounter Summary ---
Author Organization [facility] Address [address] [place] [address] Care Team Providers Care Branch Service Representative Name Role Phone Gregoria Nicholas MD Primary Care Provider [phone] Reason for Visit * Reason Onset Date Comments Results 12/12/2015 Labs of 11/06/15 Encounter Details Date Type Department Care Team ([facility] Contact Info) Description 12/12/2015 Telephone [facility] Cardiology - [address] [place], [place] [phone] Mary Tanner, RN Results (Labs of 11/06/15) [...] Description 08/08/2024 13:00 EST Office Visit [facility] Gastroenterology - [address] [address] Kera Tatum PA-C 111 [facility], [address] [place] [phone] 11/15/2024 18:30 EDT Office Visit [facility] Cardiology - [address] [place] [address] Davian Almonte MD [address] [place] [address] documented as of this encounter Visit Diagnoses Not on filedocumented in this encounter Care Teams Branch Service Representative Relationship Specialty Start Date End Date Gregoria Nicholas MD [address] [place] [address] PCP - General 10/27/12 09/12/18 documented as of this encounter
--- OUTSIDE RECORDS SUMMARY | 2024-05-06 04:54 | XMS_ITS | Encounter Summary ---
Author Organization [facility] Address [address] [place] [address] Care Team Providers Care Boatwright Name Role Phone Gregoria Nicholas MD Primary Care Provider [phone] Reason for Visit * Reason Comments Coronary Artery Disease Encounter Details Date Type Department Care Team (Latest Contact Info) Description 10/28/2012 10:00 EDT Office Visit [facility] Cardiology - [address] [place] [address] Broderick Galloway MD [address] [place] [address] Coronary atherosclerosis of unspecified type of vessel, [place] or graft (Primary Dx) Social History Tobacco [...] or interrupt this medication withour discussing with apron man Start this medication in one month. First [...] 08/08/2024 13:00 EST Office Visit [facility] Gastroenterology - [facility] [address] [place], [place] [address] Kera Tatum PA-C 111 [facility], Level [address] [place] [address] 11/15/2024 18:30 EDT Office Visit [facility] Cardiology - [address] [place] [address] Davian Almonte MD [address] [place], [place] [address] documented as of this encounter Visit Diagnoses Diagnosis Coronary atherosclerosis of unspecified type of vessel, [place] or graft- Primary documented in this encounter Historical Medications * This list may reflect changes made after this encounter. Medication Sig Dispensed Refills Start Date End Date simvastatin (ZOCOR) 80 mg tablet Take 80 mg by mouth at bedtime. 11/01/2013 added in this encounter Care Teams Boatwright Relationship Specialty Start Date End Date Gregoria Nicholas MD [address] [place] [address] PCP - General 10/27/12 09/12/18 documented as of this encounter
--- OUTSIDE RECORDS SUMMARY | 2024-05-06 04:54 | XMS_ITS | Encounter Summary ---
Author Organization [facility] Address [address] [place] [address] Care Team Providers Care Hardwood Sawyer Name Role Phone Gregoria Nicholas MD Primary Care Provider [phone] Reason for Visit * Reason Onset Date Comments Discuss Test Results 04/09/2015 Encounter Details Date Type Department Care Team ([facility] Contact Info) Description 04/09/2015 Telephone [facility] Cardiology - [address] [place] [address] Broderick Galloway MD [address] [place] [address] Discuss Test Results Social History Tobacco [...] EST Office Visit [facility] Gastroenterology - [address] [phone] Kera Tatum PA-C [address] [facility], [address] [place] [address] 11/15/2024 18:30 EDT Office Visit [facility] Cardiology - [place] [address] Davian Almonte MD [address] [place], [place] [address] documented as of this encounter Visit Diagnoses Not on filedocumented in this encounter Care Teams Hardwood Sawyer Relationship Specialty Start Date End Date Gregoria Nicholas MD [address] [place] [address] PCP - General 10/27/12 09/12/18 documented as of this encounter
--- OUTSIDE RECORDS SUMMARY | 2024-05-06 04:54 | XMS_ITS | Encounter Summary ---
Author Organization [facility] Address [address] [place] [address] Care Team Providers Care Selenium Plant Operator Name Role Phone Gregoria Nicholas MD Primary Care Provider [phone] Reason for Visit * Reason Onset Date Comments Letter for School/Work 02/18/2016 cleared t o work Encounter Details Date Type Department Care Team ([facility] Contact Info) Description 02/18/2016 Telephone [facility] Cardiology - [address] [place] [address] Broderick Galloway MD [address] [place] [address] Letter for School/Work (cleared to work) [...] EDT Patient notified. Letter done. Faxed to [phone] as requested. He was satisfied with this. [...] Description 08/08/2024 13:00 EST Office Visit [facility] Gastroenterology - [address] [phone] Kera Tatum PA-C [address] [place] [address], [facility], Level [address] [place] [address] 11/15/2024 18:30 EDT Office Visit [facility] Cardiology - [address] [place] [address] Davian Almonte MD [address] [place] [address] documented as of this encounter Visit Diagnoses Not on filedocumented in this encounter Care Teams Selenium Plant Operator Relationship Specialty Start Date End Date Gregoria Nicholas MD [address] [place] [address] PCP - General 10/27/12 09/12/18 documented as of this encounter
--- OUTSIDE RECORDS SUMMARY | 2024-05-06 04:55 | XMS_ITS | Encounter Summary ---
Author Organization [facility] Address [address] [place] [address] Care Team Providers Care Environmental Permitting Specialist Name Role Phone Joaquín Carpenter MD Primary Care Provider [phone] Gregoria Nicholas MD Primary Care Provider [phone] Encounter Details Date Type Department Care Team (Late Contact Info) Description 08/30/2012 Orders Only [facility] Cardiology - [facility] [address] [place] [address] Broderick Galloway MD [address] [place] [address] Social History Tobacco [...] EST Office Visit [facility] Gastroenterology - [address] [phone] Kera Tatum PA-C 111 [facility] [place], [address] [place] [phone] 11/15/2024 18:30 EDT Office Visit [facility] Cardiology - [address] [place], [place] [phone] Davian Almonte MD [address] [place], [place] [address] documented as of this encounter Procedures Procedure [...] on filedocumented in this encounter Care Teams Environmental Permitting Specialist Relationship Specialty Start Date End Date Joaquín Carpenter MD [address] [place] [address] PCP - General 09/04/09 10/26/12 Gregoria Nicholas MD [address] [place] [address] PCP - General 10/27/12 09/12/18 documented as of this encounter
--- OUTSIDE RECORDS SUMMARY | 2024-05-06 04:55 | XMS_ITS | Encounter Summary ---
Author Organization [facility] Address [address] [place] [address] Care Team Providers Care Reed Dipper Name Role Phone Joaquín Carpenter MD Primary Care Provider [phone] Reason for Visit * Reason Onset Date Comments Paperwork request 08/18/2012 Encounter Details Date Type Department Care Team ([facility] Contact Info) Description 08/18/[address] [facility] Cardiology - [place] [address] Broderick Galloway MD [address] [place] [address] Paperwork request Social History Tobacco Use [...] would be sufficient. These were faxed to [phone] as per request. * Telephone Encounter - Puja Godoy - 08/18/2012 1147 EST Calling because he needs paperwork stating he is ok to have an mri because he has stints , the fax number [phone] [facility] documented in this encounter Plan of Treatment Upcoming Encounters Date Type Department Care Team (Late st Contact Info) Description 08/08/2024 13:[address] [facility] Gastroenterology - [address] [address] Kera Tatum PA-C 111 [facility], [address] [place] [phone] 11/15/2024 18:[address] [facility] Cardiology [place] [address] Davian Almonte MD [address] [place], [place] [address] documented as of this encounter Visit Diagnoses Not on filedocumented in this encounter Care Teams Reed Dipper Relationship Specialty Start Date End Date Joaquín Carpenter MD [address] [place], [place] [address] PCP - General 09/04/09 10/26/12 documented as of this encounter
--- OUTSIDE RECORDS SUMMARY | 2024-05-06 04:55 | XMS_ITS | Encounter Summary ---
Author Organization [facility] Address [address] [place] [address] Care Team Providers Care Pony Ride Attendant Name Role Phone Joaquín Carpenter MD Primary Care Provider [phone] Reason for Visit * Reason Comments Coronary Artery Disease Encounter Details Date Type Department Care Team (Latest Contact Info) Description 04/09/2010 14:00 EDT Office Visit [facility] Cardiology - [address] [place] [address] Broderick Lozada MD [address] [place] [address] Coronary atherosclerosis of [place] coronary artery (Primary Dx) Social History Tobacco [...] none Past Medical History Diagnosis Date ??? [place] (myocardial infarction) 2003 ??? CAD (coronary artery [...] or interrupt this medication withour discussing with rating clerk Start this medication in one month. [...] ? Reactive airways Plan: Cont present rx Carolinatil I documented in this encounter Plan of Treatment Upcoming Encounters Date Type Department Care Team (Late st Contact Info) Description 08/08/2024 13:00 EST Office Visit [facility] Gastroenterology - [address] [id number] Kera Tatum PA-C [address] [place] [address], [address] [place] [phone] 11/15/2024 18:30 EDT Office Visit [facility] Cardiology - [address] [place] [address] Davian Almonte MD [address] [place] [phone] documented as of this encounter Procedures Procedure Name Priority Date/Time Associated Diagnosis Comments EXERCISE TOLERANCE TEST Routine 04/12/2010 12:26 EDT Coronary atherosclerosis of [place] coronary artery documented in this encounter Results * EXERCISE TOLERANCE TEST (04/12/2010 12:26 EDT) Anatomical Region Laterality Modality Other 04/12/2010 12:2 6 EDT Narrative 04/17/2010 8:01 EDT ? [facility] ? [address] ??[place] [address] ? [phone] ? [email or web address] ? Final ECG Stress Test Report ? --- PATIENT PRESENTATION --- : 1955 Age: 54 ?Sex: male ? Height: 69 in ??Weight: 247 lb ?BSA: 2.26 Pt Type: OP History: ??54 year old man with known coronary artery disease. ??History of [place] 1992 and multiple PCI's, ??most recently in [...] CAD Referring Physician: BRODERICK LOZADA MD ??FAX: [phone] ?--- CONCLUSION --- > Normal ECG Stress Test ?--- STRESS ELECTROCARDIOGRAPHY --- BASELINE ECG: NSR- Normal ECG Supine HR: ? 74 ? Supine BP: ??134 / 66 Upright HR: ?77 ? Upright BP: ?154 / 64 STRESS TEST Stress Protocol: Sx Limited Gary Peak HR: ??132 ? Peak BP: ?190 / 40 ?MPHR: ??80% Peak Rate-Pressure Product: [id number] Total Exercise Time: 9 min ? Final [...] Interpretation By: ??Johnny Carballo MD - Attending Ultrasonic Seaming Machine Operator Finalized on: 04/17/2010 8:01:20 AM This procedure was conducted under the supervision of Ash Cruz MD who was readily available at all points throughout the procedure. Copy Report To: ? Procedure Note Johnny Carballo MD - 04/17/2010 [facility] [address] [place] [address] [phone] [email or web address] Final ECG Stress Test Report --- PATIENT [...] CAD Referring Physician: BRODERICK LOZADA MD FAX: [phone] --- CONCLUSION --- > Normal ECG Stress Test --- STRESS ELECTROCARDIOGRAPHY --- BASELINE ECG: NSR- Normal ECG Supine HR: 74 Supine BP: 134 / 66 Upright HR: 77 Upright BP: 154 / 64 STRESS TEST Stress Protocol: Sx Limited Gary Peak HR: 132 Peak BP: 190 / 40 MPHR: 80% Peak Rate-Pressure Product: [id number] Total Exercise Time: 9 min Final Stage: [...] Interpretation By: Johnny Carballo MD - Attending Ultrasonic Seaming Machine Operator Finalized on: 04/17/2010 8:01:20 AM This procedure was conducted under the supervision of Angel Cruz MDo was readily available at all points throughout the procedure. Copy Report To: Broderick Lozada MD CARDIAC SERVICES ORD ERABLES documented in this encounter Visit Diagnoses Diagnosis Coronary atherosclerosis of mo[place]gan coronary artery- Primary documented in this encounter Historical Medications * This list may reflect changes made after this encounter. Medication Sig Dispensed Refills Start Date End Date citalopram (CELEXA) 20 mg tabletIndications:depre ssion Take 40 mg by mouth daily. Indications: DEPRESSION 10/07/2011 added in this encounter Care Teams Pony Ride Attendant Relationship Specialty Start Date End Date Joaquín Carpenter MD [address] [place] [address] PCP - General 09/04/09 10/26/12 documented as of this encounter
--- OUTSIDE RECORDS SUMMARY | 2024-05-06 04:55 | XMS_ITS | Encounter Summary ---
Author Organization [facility] Address [address] [place] [address] Care Team Providers Care Cash Applications Manager Name Role Phone Joaquín Carpenter MD Primary Care Provider [phone] Gregoria Nicholas MD Primary Care Provider [phone] Encounter Details Date Type Department Care Team (Late Contact Info) Description 08/30/2012 Orders Only [facility] Cardiology - [facility] [address] [place] [address] Broderick Galloway MD [address] [place] [address] Social History Tobacco Use Types Packs/Day [...] [facility] Gastroenterology - [address] [phone] Kera Tatum PA-C [address] [facility], [facility], [address] [place] [phone] 11/15/2024 18:30 EDT Office Visit [facility] Cardiology - [address] [place], [place] [phone] Davian Almonte MD [address] [place], [place] [phone] documented as of this encounter Procedures Procedure [...] on filedocumented in this encounter Care Teams Cash Applications Manager Relationship Specialty Start Date End Date Joaquín Carpenter MD [address] [place] [address] PCP - General 09/04/09 10/26/12 Gregoria Nicholas MD [address] [place] [address] PCP - General 10/27/12 09/12/18 documented as of this encounter
--- OUTSIDE RECORDS SUMMARY | 2024-05-06 04:55 | XMS_ITS | Encounter Summary ---
Author Organization [facility] Address [address] [place] [address] Care Team Providers Care Car Spotter Name Role Phone Joaquín Carpenter MD Primary Care Provider [phone] Reason for Visit * Reason Onset Date Comments Other 04/10/2010 Returned Adrienne 's call Other 04/11/2010 returned adrienne 's call Encounter Details Date Type Department Care Team ([facility] Contact Info) Description 04/10/2010 Telephone [facility] Cardiology - [address] [place], [place] [phone] Broderick Galloway MD [address] [place] [address] [place] [address] Other (Returned Adrienne's call); Other (returned [...] EST Office Visit [facility] Gastroenterology - [address] [phone] Kera Tatum PA-C [address] [facility], [address] [place] [phone] 11/15/2024 18:30 EDT Office Visit [facility] Cardiology - [place] [address] [place] [address] Davian Almonte MD [address] [place], [place] [address] documented as of this encounter Visit Diagnoses Not on filedocumented in this encounter Care Teams Car Spotter Relationship Specialty Start Date End Date Joaquín Carpenter MD [address] [place] [address] PCP - General 09/04/09 10/26/12 documented as of this encounter
--- OUTSIDE RECORDS SUMMARY | 2024-05-06 04:55 | XMS_ITS | Encounter Summary ---
Author Organization [facility] Address [address] [place] [address] Care Team Providers Care Packaging Operator Name Role Phone Joaquín Carpenter MD Primary Care Provider [phone] Reason for Visit * Reason Onset Date Comments Returning Call 08/17/2012 Encounter Details Date Type Department Care Team ([facility] Contact Info) Description 08/17/2012 Telephone [facility] Cardiology - [address] [place], [place] [phone] Broderick Galloway MD [address] [place] [address] Returning Call Social History Tobacco Use [...] stents are compatible. Advised Stents placed by [facility] are MRI safe. This was documented 2003. His stents were place 08/2009. He states he also had [place] [facility]. He will contact them for their advice [...] Office Visit [facility] Gastroenterology - [address] [phone] Kera Tatum PA-C 111 [facility], [address] [place] [address] 11/15/2024 18:30 EDT Office Visit [facility] Cardiology - [address] [place] [address] Davian Almonte MD [address] [place], [place] [phone] documented as of this encounter Visit Diagnoses Not on filedocumented in this encounter Care Teams Packaging Operator Relationship Specialty Start Date End Date Joaquín Carpenter MD [address] [place] [address] PCP - General 09/04/09 10/26/12 documented as of this encounter
--- OUTSIDE RECORDS SUMMARY | 2024-05-06 04:55 | XMS_ITS | Encounter Summary ---
Author Organization [facility] Address [address] [place] [address] Care Team Providers Care Box Office Manager Name Role Phone Joaquín Carpenter MD Primary Care Provider [phone] Reason for Visit * Reason Comments Follow-up 6 month FUR Encounter Details Date Type Department Care Team (Latest Contact Info) Description 04/09/2011 15:10 EDT Office Visit [facility] Cardiology - [address] [place] [place] [address] Broderick Galloway MD [address] [place] [address] Coronary atherosclerosis of [place] coronary artery (Primary Dx) Social History Tobacco [...] Notes * Broderick Galloway MD - 04/09/2011 1734 EDT Subjective: Patient is a 55 y.o. [...] or interrupt this medication withour discussing with tuna purse seiner Start this medication in one month. First [...] Info) Description 08/08/2024 13:00 EST Office Visit [facility] Gastroenterology - [facility] [address] [place], [place] [address] Kera Tatum PA-C 111 [facility], [facility], [address] [place] [address] 11/15/2024 18:30 EDT Office Visit [facility] Cardiology - [address] [place] [address] Davian Almonte MD [address] [place], [place] [address] documented as of this encounter Visit Diagnoses Diagnosis Coronary atherosclerosis of [place] coronary artery- Primary documented in this encounter Historical Medications * This list may reflect changes made after this encounter. Medication Sig Dispensed Refills Start Date End Date glimepiride (AMARYL) 2 mg tablet Take 2 mg by mouth every morning. 10/07/2011 added in this encounter Care Teams Box Office Manager Relationship Specialty Start Date End Date Joaquín Carpenter MD [address] [place] [address] PCP - General 09/04/09 10/26/12 documented as of this encounter
--- OUTSIDE RECORDS SUMMARY | 2024-05-06 04:55 | XMS_ITS | Encounter Summary ---
Author Organization [facility] [place] Address [address] [place] [address] Care Team Providers Care Safety Equipment Testing Specialist Name Role Phone Joaquín Carpenter MD Primary Care Provider [phone] Encounter Details Date Type Department Care Team (Latest Contact Info) Description 09/09/2009 18:24 EST - 09/11/2009 12:54 EST Hospital Encounter [facility] Cardiac/Telemetry Unit [address] [place] [address] Grace Escobar MD Discharge Disposition: Home or [...] known CAD (Balloon angioplasty in 1992, PCI nx1705, and most recently PCI with MARY x [...] <0.06) and was transferred to [facility]. On arrival he was chest pain free. [...] while taking these medications, immediately contact your chief gauger. Do not stop taking aspirin or Plavix without discussing this with your doctor. Appointments: Follow up with cardiology as planned prior to this hospitalization. Cardiac Rehab Referral: You have been referred to the [facility] cardiac rehabilitation program. The [facility] Cardiac Rehabilitation Center is located at [address] [place] [address], off [facility] ([address] Call [phone] for directions. Your initial visit is scheduled [...] or interrupt this medication withour discussing with chief gauger Start this medication in one month. First [...] or interrupt this medication withour discussing with chief gauger Start this medication in one month. First [...] has been assessed using the [facility] Case Management risk screen. No needs were identifiedat this time. Please page the case assistant regarding utilization review issues or if discharge planning problems or barriers arise. Met with patient at request of Meryl Cerrato NP for interventional. Patient has prasugrel at discharge for a month , then plavix. He has [employer] for insurance and [place] but using CBA. HE uses [facility] PC to them: no prasugrel. PC to [facility] outpatient pharmacy: they have in stock. Patientwill have spouse bring down RX. 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 Highway Maintainer: Esthela Jeronimo RN Beeper: [phone] * Burke Brooks MD - 09/11/2009 0958 EST Patient had an uneventful night and [...] rehab. * Israel Roach RN - 09/10/2009 9542 EST D: See Post-Cath Flowsheet. A: RN [...] Monitor overnight andplan for discharge in AM. Lazaro Egan * Israel Roach RN - 09/10/2009 0753 EST Pt transported to labor gang supervisor after taking all po am. Meds. to include asa 325mg and plavix 75mg. * Hiro Katz MD - 09/10/2009 0756 EST CARDIOLOGY PROGRESS NOTE Admit Date: 09/09/2009 [...] EST September 10, 2009 Joaquín Carpenter MD [facility] [address] [place] [address] Carpenter, I had the pleasure of performing cardiac catheterization and percutaneous intervention on Raul Trujillo today. Mr. Trujillo is a 53-year-old male who presented with exertional chest pain. He underwent stenting to his right coronary artery on Thursday with intermediate lesions by angiography in his left anterior descending artery that were left alone. He was brought back to the labor gang supervisor today because ofrecurrent angina. We performed fractional [...] José Miguel Medina MD / mlw Confirmation: [id number] Dictation ID: [id number] cc:Joaquín Carpenter MD documented in this encounter H&P Notes * José Miguel Medina Jr., MD - 09/09/2009 1811 EST MEDICINE H&P / ADMISSION NOTE Admit Date: 09/09/2009 Date of Service: 09/09/2009 PRIMARY CARE PHYSICIAN: Joaquín Carpenter MD CHIEF COMPLAINT: Chest pain HISTORY OF PRESENT ILLNESS: Patient is a 53 y.o. male with known CAD who was admitted to [facility] two days ago on 09/07/09 with Unstable [...] rest and SL nitro. He presented to [facility],where the troponin was 0.06 and an EKG did not show ischemic changes. He was transferred here for further workup. The cath showed: LM:Nl LAD:50% mid, 60% distal Cx:40% distal RCA: 90% distal, 70% mid EF:60% LVEDP: 10 The RCA was treated with a 3.0 OTW maverick followed by a 3.5 Woodland, and NC Voyager. Stent delivery required 2 nataly wires. Canal [place] 3.0x15, 3.5x12 and 3.5x30 stents were placed and post dilated with a 3.5 mm Quantum. The patient states that he is currently chest pain-free. He denies any dyspnea, syncope, palpitations, nausea, or diaphoresis. There has not been fevers, chills, cough, abdominal pain, vomiting, d/c,melena or hematochezia. No edema. His catheter site has not been bleeding. PMH PSH Past Medical History Diagnosis Date ??? KS [...] or interrupt this medication withour discussing with chief gauger 30 Tab 11 ??? metformin (GLUCOPHAGE) 1,000 [...] Consider LHC in am with FFR Humberto #[id number] Fellow addendum Agree with above, 53 yo [...] Medina Jr., MD - 09/10/2009 1006 ESTProcedure(s): RI IV DOP ROSA&/OR PRESS C/KUMAR RSRV JOAO 1ST VSL; CORONARY ANGIOPLASTY WITH STENT PLACEMENT Pre-Procedure Diagnose(s): NSTEMI (non-ST elevated myocardial infarction) ([facility]- CMS); CAD (coronary artery disease) Post-Procedure Diagnose(s): CAD (coronary artery disease) PRELIMINARY CARDIAC CATHETERIZATION REPORT NOT FINAL Attending: Germaine Fellow(s)/SPUD DRILLER: Cecilia Anesthesia used for procedure: A moderate [...] more than 48 hours without consulting a chief gauger. Prasugrel 10mg a day for one month [...] This Shift Active Multi-Disciplinary problems: HOSPITAL ORIENTATION/SAFETY [29662] (09/09/09) Acute Ischemic Pain - Cardiac [68144] (09/10/09) Risk for decreased cardiac output [33295] (09/10/09) Data: No c/o pain or SOB. [...] To Hospital Environment D: Patient arrived to [place] [address] . Vital signs noted. Tele applied. Patient [...] Description 08/08/2024 13:00 EST Office Visit [facility] Gastroenterology - [address] [address] Kera Tatum PA-C [address] [place] [address], [address] [place] [id number] 11/15/2024 18:30 EDT Office Visit [facility] Cardiology - Jenelle [place] [address] Davian Almonte MD [address] [place] [address] [phone] documented as of this encounter Procedures Procedure [...] EST Narrative 09/11/2009 11:53 EST Interpreting Group: [facility] [address] [place] [id number] *STUDY CONCLUSIONS* SUMMARY - ??Overall left ventricular [...] ?2.23 m^2 Referring MD: ??Shankar Tyson MD Exhibit Specialist: ?? Ken Canales MD: ?? Shankar Tyson [...] was interpreted by [facility] at [facility]. The procedure was started at 10:18:44. The procedure ended at 10:57:37. [id number] Acoustics window availability yielded suboptimal access. Body [...] 11-Sep-2009 11:52:12 Procedure Note 09/11/2009 Interpreting Group: [facility] [address] [place] [address] *STUDY CONCLUSIONS* SUMMARY - Overall left ventricular [...] 2.23 m^2 Referring MD: Shankar Tyson MD Exhibit Specialist: Ken Canales MD: Shankar Tyson MD Referring [...] routine echocardiographic study. Thisstudy was interpreted by [facility] at [facility]. The procedure was started at 10:18:44. The procedure endedat 10:57:37. [id number] Acoustics window availability yielded suboptimalaccess. Body habitus [...] in 10 ml saline was administered by [facility] CVT. 1 vials of Definity was used. Reviewed and signed by Hardeep Silva MD Confirmed 11-Sep-2009 11:52:12 Shankar Tyson MD CARDIAC ECHO BUCKY ROJAS * (ABNORMAL) GLUCOSE, GLUCOMETER (09/11/2009 7:53 EST) Glucose, Fingerstick 158(H) 70 - 100 mg/dl [facility] [place] ID [id number] Test Performed by Nursing Services [facility] 09/11/2009 7:53 EST 09/11/2009 7:54 EST Grace Escobar MD CHEMISTRY & BLOOD GA S ORDERABLES [facility] [address] [place] [address] * CREATININE (09/11/2009 6:42 EST) Creatinine 0.81 0.7 - 1.5 mg/dl [facility] GFR, Calculated >60 ml/min/1.7 3m2 [facility] Blood specimen (specimen) 09/11/2009 6:42 EST 09/11/2009 7:26 EST Shankar Tyson MD CHEMISTRY & BLOOD GAS ORDERABLES Performing Organization Address [facility] de Phone Number [facility] [address] [place] [address] * BUN (09/11/2009 6:42 EST) BUN 10 10 - 26 mg/dl [facility] Blood specimen (specimen) 09/11/2009 6:42 EST 09/11/2009 7:26 EST Shankar Tyson MD CHEMISTRY & BLOOD GAS ORDERABLES Performing Organization Address [facility] de Phone Number [facility] [address] [place] [address] * (ABNORMAL) ELECTROLYTES (09/11/2009 6:42 EST) Sodium 135(L) 136 - 145 mEq/L [facility] Potassium 4.4 3.5 - 5.0 mEq/L [facility] Chloride 100 96 - 110 mEq/L [facility] CO2 28 24 - 32 mEq/L [facility] Blood specimen (specimen) 09/11/2009 6:42 EST 09/11/2009 7:26 EST Shankar Tyson MD CHEMISTRY & BLOOD GAS ORDERABLES Performing Organization Address [facility] de Phone Number [facility] [address] [place] [address] * HEMAGRAM (09/11/2009 6:42 EST) WBC 8.26 4.0 - 10.4 K/cmm [facility] RBC 4.79 4.36 - 5.78 M/cmm [facility] Hemoglobin 14.5 13.8 - 17.3 gm/dl [facility] HCT 41.7 39.5 - 50.2 % [facility] MCV 87 81 - 95 fl [facility] MCH 30.2 27.6 - 33.0 pg [facility] MCHC 34.7 32.8 - 36.4 gm/dl [facility] PLT 234 141 - 320 K/cmm [facility] RDW-CV 13.0 11.8 - 14.1 % [facility] Blood specimen (specimen) 09/11/2009 6:42 EST 09/11/2009 7:26 EST Shankar Tyson MD HEMATOLOGY & PF4 ORDERABLES Performing Organization Address [facility] de Phone Number [facility] [address] [place] [address] * PTT (09/11/2009 6:42 EST) Pathologist [facility] PTT 28 20 - 35 secs [facility] Comment:Therapeutic Heparin range: 60-100 seconds Blood specimen (specimen) 09/11/2009 6:42 EST 09/11/2009 7:26 EST Shankar Tyson MD HEMATOLOGY & PF4 ORDERABLES Performing Organization Address [facility] Phone Number [facility] [address] [place] [address] * CK MB WITH TOTAL CK (09/11/2009 6:42 EST) [facility] CK 90 0 - 250 U/L [facility] MB 1.1 0 - 5.0 ng/ml [facility] CK-MB Index Not calculated , normal MB. 0 - 2.5 [facility] Blood specimen (specimen) 09/11/2009 6:42 EST 09/11/2009 7:26 EST Burke Brooks MD CHEMISTRY & BLOOD GA S ORDERABLES Performing Organization Address [facility] de Phone Number [facility] [address] [place] [address] * (ABNORMAL) GLUCOSE, GLUCOMETER (09/10/2009 21:03 EST) Pathologist [facility] Glucose, Fingerstick 163(H) 70 - 100 mg/dl [facility] ID [id number] Test Performed by Nursing Services [facility] 09/10/2009 21:0 3 EST 09/10/2009 21:04 EST Grace Escobar MD CHEMISTRY & BLOOD GA S ORDERABLES Performing Organization Address [facility] Phone Number [facility] [address] [place] [address] * (ABNORMAL) GLUCOSE, GLUCOMETER (09/10/2009 17:16 EST) Glucose, Fingerstick 114(H) 70 - 100 mg/dl [facility] [place] [id number] Test Performed by Nursing Services [facility] 09/10/2009 17:1 6 EST 09/10/2009 17:18 EST Grace Escobar MD CHEMISTRY & BLOOD GA S ORDERABLES Performing Organization Address [facility] Phone Number [facility] [address] [place] [address] * CK MB WITH TOTAL CK (09/10/2009 15:27 EST) CK 94 0 - 250 U/L [facility] MB 1.1 0 - 5.0 ng/ml [facility] CK-MB Index Not calculated , normal MB. 0 - 2.5 [facility] Blood specimen (specimen) 09/10/2009 15:27 EST 09/10/2009 15:54 EST Shankar Tyson MD CHEMISTRY & BLOOD GAS ORDERABLES Performing Organization Address [facility] Phone Number [facility] [address] [place] [address] * (ABNORMAL) GLUCOSE, GLUCOMETER (09/10/2009 11:01 EST) Glucose, Fingerstick 122(H) 70 - 100 mg/dl [facility] [place] [id number] Test Performed by Nursing Services [facility] 09/10/2009 11:0 1 EST 09/10/2009 11:05 EST Grace Escobar MD CHEMISTRY & BLOOD GA S ORDERABLES Performing Organization Address City/State/[facility] de Phone Number [facility] [address] [place] [address] * LEFT HEART CATH (09/10/2009 8:33 EST) Anatomical Region Laterality Modality Other 09/10/2009 8:33 EST Impressions 09/13/2009 15:26 EST ?[facility] ? [address] ??[place] [address] ? [phone] ? [email or web address] ?Final Interventional Cardiovascular Catheterization Report ?--- SUMMARY [...] not be stopped without consultation with a chief gauger. Clopidogrel (plavix) is recommended for a minimum of 12 months after the drug eluting stent procedure. ? --- PATIENT PRESENTATION --- The patient is a 53 year old male. ??The primary indication for PCI was PCI for high risk Non-STEMI or unstable angina. Additional indications include: unstable angina. The patient has the following Comorbidities/Risk Factors: ??Dyslipidemia, Family History of Premature CAD, Hypertension, Prior [place], Prior PCI. Diabetes Oral. : 1955 ?Sex: male ?Height: 175.3cm ?Weight: 108kg ?BSA: 2.22 Allergies: ??NKA Pre-Yarder Engineer Values: ??HCT: 42.9 ?Platelets: 208.0 ?Creatinine:.8 ? [...] mm diameter of approximately 15 mm length Woodland balloon in the ??mid and proximal LAD [...] diameter of approximately 12 mm length Quantum Cullman balloon in the ??distal LAD. The maximal [...] MD Referring Physician 3: JOAQUÍN CARPENTER MD Interventional Attending: José Miguel Medina MD Interventional Fellow: Burke Brooks MD As the attending, supervising chief gauger, I was present for the entire procedure. Signature date/time: 09/13/2009 15:28:19 ? Narrative 09/13/2009 15:26 EST ?[facility] ? [facility] [address] ? [phone] ? [email or web address] ?Final Diagnostic Cardiovascular Catheterization Report ?--- SUMMARY [...] Family History of Premature CAD, Hypertension, Prior KS, Prior PCI. Diabetes Oral. : 1955 ?Sex: male ?Height: 175.3cm ?Weight: 108kg ?BSA: 2.22 Allergies: ??NKA Pre-Yarder Engineer Values: ??HCT: 42.9 ?Platelets: 208.0 ?Creatinine:.8 ? [...] Avtar HAYES, Robinson As the attending, supervising chief gauger, I was present for the entire procedure. Signature date/time: 09/13/2009 15:27:03 Procedure Note José Miguel Medina Jr., MD - 04/12/2010 [facility] [address] [place] [address] [phone] [email or web address] Final Diagnostic Cardiovascular Catheterization Report --- SUMMARY [...] Family History of Premature CAD, Hypertension, Prior KS, Prior PCI. Diabetes Oral. : 1955 Sex: male Height: 175.3cm Weight: 108kg BSA:2.22 Allergies: NKA Pre-Yarder Engineer Values: HCT: 42.9 Platelets: 208.0 Creatinine:.8 --- PROCEDURE --- DIAGNOSTIC CARDIAC PROCEDURE Under local anesthesia, the left femoral artery was accessed with a 6Fsheath using modified Seldinger technique. A 6F JL4 catheter was introducedand positioned in the ascending aorta. Selective coronary arteriography was then performed using a 6F [id number] to engage the left coronary artery. Via [...] Physician 3: JOAQUÍN CARPENTER MD Diagnostic Attending: José Miguel Medina MD Diagnostic Fellow: Avtar HAYES, Robinson As the attending, supervising chief gauger, I was present for the entire procedure. Signature date/time: 09/13/2009 15:27:03 IMPRESSION [facility] [address] [place] [address] [phone] [email or web address] Final Interventional Cardiovascular Catheterization Report --- [...] not be stopped without consultation with a chief gauger. Clopidogrel (plavix) is recommended fora minimum of 12 months after the drug eluting stent procedure. --- PATIENT PRESENTATION --- The patient is a 53 year old male. The primary indication for PCI was PCIfor high risk Non-STEMI or unstable angina. Additional indications include: unstable angina. The patient has the following Comorbidities/Risk Factors: Dyslipidemia, Family History of Premature CAD, Hypertension, Prior [place], Prior PCI. Diabetes Oral. : 1955 Sex: male Height: 175.3cm Weight: 108kg BSA:2.22 Allergies: NKA Pre-Yarder Engineer Values: HCT: 42.9 Platelets: 208.0 Creatinine:.8 --- [...] the proximal LAD. The maximal inflation pressure [id number] cale. The stent was successfully deployed. We [...] mm diameter of approximately 12 mm lengthQuantum Cullman balloon in the distal LAD. The maximal inflation pressure [id number] cale. The left common femoral artery was [...] Burke Brooks MD As the attending, supervising chief gauger, I was present for the entire procedure. Signature date/time: 09/13/2009 15:28:19 Shankar Tyson MD CARDIAC CATH BUCKY ROJAS * (ABNORMAL) GLUCOSE, GLUCOMETER (09/10/2009 7:21 EST) Glucose, Fingerstick 132(H) 70 - 100 mg/dl [facility] ID [id number] Test Performed by Nursing Services [facility] 09/10/2009 7:21 EST 09/10/2009 7:22 EST Grace Escobar MD CHEMISTRY & BLOOD GA S ORDERABLES Performing Organization Address [facility] de Phone Number [facility] [address] [place] [address] * CREATININE (09/10/2009 4:08 EST) Creatinine 0.80 0.7 - 1.5 mg/dl [facility] GFR, Calculated >60 ml/min/1.7 3m2 [facility] Blood specimen (specimen) 09/10/2009 4:08 EST 09/10/2009 4:29 EST Shankar Tyson MD CHEMISTRY & BLOOD GAS ORDERABLES Performing Organization Address [facility] de Phone Number [facility] [address] [place] [address] * BUN (09/10/2009 4:08 EST) BUN 11 10 - 26 mg/dl [facility] Blood specimen (specimen) 09/10/2009 4:08 EST 09/10/2009 4:29 EST Shankar Tyson MD CHEMISTRY & BLOOD GAS ORDERABLES Performing Organization Address [facility] Co de Phone Number [facility] [address] [place] [address] * ELECTROLYTES (09/10/2009 4:08 EST) Sodium 136 136 - 145 mEq/L [facility] Potassium 4.0 3.5 - 5.0 mEq/L [facility] Chloride 100 96 - 110 mEq/L [facility] CO2 28 24 - 32 mEq/L [facility] Blood specimen (specimen) 09/10/2009 4:08 EST 09/10/2009 4:29 EST Shankar Tyson MD CHEMISTRY & BLOOD GAS ORDERABLES Performing Organization Address [facility] de Phone Number [facility] [address] [place] [address] * HEMAGRAM (09/10/2009 4:08 EST) WBC 6.95 4.0 - 10.4 K/cmm [facility] [...] % [facility] Blood specimen (specimen) 09/10/2009 4:08 EST 09/10/2009 4:29 EST Shankar Tyson MD HEMATOLOGY & PF4 ORDERABLES Performing Organization Address [facility] de Phone Number [facility] [address] [place] [address] * (ABNORMAL) PTT (09/10/2009 4:08 EST) PTT 75(H) 20 - 35 secs [facility] Comment:Therapeutic Heparin range: 60-100 seconds Blood specimen (specimen) 09/10/2009 4:08 EST 09/10/2009 4:29 EST Shankar Tyson MD HEMATOLOGY & PF4 ORDERABLES Performing Organization Address [facility] Co de Phone Number [facility] [address] [place] [address] * HEMOGLOBIN A1C (09/10/2009 4:08 EST) Hemoglobin A1C 6.8 % [facility] Comment: Reference Range: <6% Normal Range ADA guidelines: The A1c goal for non adults in general is <7% The A1c goal for selected individual patients is as close to normal (<6%) as possible without significant hypoglycemia. Est Avg Glucose 148 mg/dl [facility] Comment: eAG represents the A1c result expressed as average glucose in mg/dl. Blood specimen (specimen) 09/10/2009 4:08 EST 09/10/2009 4:29 EST Herminio Garcia MD CHEMISTRY & BLOOD GA S ORDERABLES Performing Organization Address [facility] de Phone Number [facility] [address] [place] [address] * TROPONIN I (09/10/2009 4:08 EST) Pathologist [facility] Troponin I pre 2012 0.07 <0.81 ng/ml [facility] Comment: Reference Range: Normal: ??Less than 0.05 Indeterminate: ??0.05-0.80 Positive: ??Greater than 0.80 Blood specimen (specimen) 09/10/2009 4:08 EST 09/10/2009 4:29 EST Shankar Tyson MD CHEMISTRY & BLOOD GAS ORDERABLES Performing Organization Address [facility]/ZIP Co de Phone Number [facility] [address] [place] [address] * CK MB WITH TOTAL CK (09/10/2009 4:08 EST) Pathologist [facility] CK 108 0 - 250 U/L [facility] MB 1.2 0 - 5.0 ng/ml [facility] CK-MB Index Not calculated , normal MB. 0 - 2.5 [facility] Blood specimen (specimen) 09/10/2009 4:08 EST 09/10/2009 4:29 EST Shankar Tyson MD CHEMISTRY & BLOOD GAS ORDERABLES Performing Organization Address [facility] de Phone Number [facility] [address] [place] [address] * TROPONIN I (09/09/2009 21:13 EST) Pathologist [facility] Troponin I pre 2011 0.07 <0.81 ng/ml [facility] Comment: Reference Range: Normal: ??Less than 0.05 Indeterminate: ??0.05-0.80 Positive: ??Greater than 0.80 Blood specimen (specimen) 09/09/2009 21:13 EST 09/09/2009 21:17 EST Shankar Tyson MD CHEMISTRY & BLOOD GAS ORDERABLES Performing Organization Address [facility] de Phone Number [facility] [address] [place] [address] * CK MB WITH TOTAL CK (09/09/2009 21:13 EST) Pathologist [facility] CK 86 0 - 250 U/L [facility] MB 0.9 0 - 5.0 ng/ml [facility] CK-MB Index Not calculated , normal MB. 0 - 2.5 [facility] Blood specimen (specimen) 09/09/2009 21:13 EST 09/09/2009 21:17 EST Shankar Tyson MD CHEMISTRY & BLOOD GAS ORDERABLES Performing Organization Address [facility] de Phone Number [facility] [address] [place] [address] * (ABNORMAL) GLUCOSE, GLUCOMETER (09/09/2009 20:30 EST) Pathologist [facility] Glucose, Fingerstick 227(H) 70 - 100 mg/dl [facility] App[employer] C[employer] ID [id number] Test Performed by Nursing Services [facility] 09/09/2009 20:3 0 EST 09/09/2009 20:47 EST Grace Escobar MD CHEMISTRY & BLOOD GA S ORDERABLES Performing Organization Address [facility] de Phone Number [facility] [address] [place] [address] * ELEVATED GLUCOSE (09/09/2009 19:28 EST) Elevated Glucose Screening glucose greater than 180 mg/dl. Please order follow up hemoglobin A1c. [facility] 09/09/2009 19:2 8 EST 09/09/2009 20:07 EST Shankar Tyson MD CHEMISTRY & BLOOD GAS ORDERABLES Performing Organization Address [facility] de Phone Number [facility] [address] [place] [address] * HOLD BLUE TOP (09/09/2009 19:28 EST) Hold Blue Top Sample for coagulation will be discarded after 4 hours [facility] 09/09/2009 19:2 8 EST 09/09/2009 20:07 EST Shankar Tyson MD LAB INFO SERVICE AND SUPPORT & PHONE RESULT Performing Organization Address [facility] de Phone Number [facility] [address] [place] [address] * PTT (09/09/2009 19:28 EST) PTT Duplicate Test Request 20 - 35 secs [facility] Blood specimen (specimen) 09/09/2009 19:28 EST 09/10/2009 10:06 EST Herminio Garcia MD HEMATOLOGY & PF4 ORD ERABLES Performing Organization Address [facility] de Phone Number [facility] [address] [place] [address] * (ABNORMAL) SCREENING GLUCOSE (09/09/2009 19:28 EST) Glucose, Screening 241(H) 70 - 100 mg/dl [facility] Blood specimen (specimen) 09/09/2009 19:28 EST 09/09/2009 20:07 EST Shankar Tyson MD CHEMISTRY & BLOOD GAS ORDERABLES Performing Organization Address [facility] Co de Phone Number [facility] [address] [place] [address] * MAGNESIUM (09/09/2009 19:28 EST) Magnesium 1.8 1.7 - 2.8 mg/dl [facility] Blood specimen (specimen) 09/09/2009 19:28 EST 09/09/2009 20:07 EST Shankar Tyson MD CHEMISTRY & BLOOD GAS ORDERABLES Performing Organization Address [facility] Co de Phone Number [facility] [address] [place] [address] * CREATININE (09/09/2009 19:28 EST) Creatinine 0.80 0.7 - 1.5 mg/dl [facility] GFR, Calculated >60 ml/min/1.7 3m2 [facility] Blood specimen (specimen) 09/09/2009 19:28 EST 09/09/2009 20:07 EST Shankar Tyson MD CHEMISTRY & BLOOD GAS ORDERABLES Performing Organization Address [facility] de Phone Number [facility] [address] [place] [address] * BUN (09/09/2009 19:28 EST) BUN 11 10 - 26 mg/dl [facility] Blood specimen (specimen) 09/09/2009 19:28 EST 09/09/2009 20:07 EST Narrative Authorizing Provider Result Juan Manuel Tyson MD CHEMISTRY & BLOOD GAS ORDERABLES Performing Organization Address [facility] Co de Phone Number [facility] [address] [place] [address] * (ABNORMAL) ELECTROLYTES (09/09/2009 19:28 EST) Sodium 136 136 - 145 mEq/L [facility] Potassium 4.1 3.5 - 5.0 mEq/L [facility] Chloride 100 96 - 110 mEq/L [facility] CO2 23(L) 24 - 32 mEq/L [facility] Blood specimen (specimen) 09/09/2009 19:28 EST 09/09/2009 20:07 EST Narrative Authorizing Provider Result Juan Manuel Tyson MD CHEMISTRY & BLOOD GAS ORDERABLES Performing Organization Address [facility] de Phone Number [facility] [address] [place] [address] * PTT (09/09/2009 19:28 EST) PTT 35 20 - 35 secs [facility] Comment:Therapeutic Heparin range: 60-100 seconds Blood specimen (specimen) 09/09/2009 19:28 EST 09/09/2009 20:07 EST Shankar Tyson MD HEMATOLOGY & PF4 ORDERABLES Performing Organization Address [facility] Phone Number [facility] [address] [place] [address] * PROTIME (09/09/2009 19:28 EST) Pro Time [...] HEMATOLOGY & PF4 ORDERABLES Performing Organization Address [facility] de Phone Number [facility] [address] [place] [address] * HEMAGRAM (09/09/2009 19:28 EST) WBC 8.52 [...] LAB RDW-CV 13.3 11.8 - 14.1 % [facility] Blood specimen (specimen) 09/09/2009 19:28 EST 09/09/2009 20:07 EST Shankar Tyson MD HEMATOLOGY & PF4 ORDERABLES Performing Organization Address [facility] Co de Phone Number [facility] [address] [place] [address] * (ABNORMAL) GLUCOSE, GLUCOMETER (09/09/2009 18:43 EST) Glucose, Fingerstick 108(H) 70 - 100 mg/dl [facility] App[place] ID [id number] Test Performed by Nursing Services [facility] 09/09/2009 18:4 3 EST 09/09/2009 18:45 EST Grace Escobar MD CHEMISTRY & BLOOD GA S ORDERABLES Performing Organization Address [facility] de Phone Number [facility] [address] [place] [address] documented in this encounter Visit Diagnoses Diagnosis CAD (coronary artery disease) Coronary atherosclerosis of unspecified type of vessel, [place] or graft Diabetes mellitus ([facility]) Type II or unspecified type diabetes mellitus without mention of complication, not stated as uncontrolled documented in this encounter Administered Medications Inactive Administered Medications - up to 3 most recent administrations Medication Order MAR Action Action Date Dose Rate Site amitriptyline (ELAVIL) tablet 20 mg 20 mg, oral, AT BEDTIME, First dose on 09/09/09 at 2100, Until Discontinued, Routine Given 09/10/2009 [...] unit/250 mL infusion 1 dose, Starting on Thu09/09/09 at 1738, Until Thu09/09/09 at 1858 heparin [...] or interrupt this medication withour discussing with chief gauger 09/07/2009 09/10/2009 amlodipine (NORVASC) 5 mg tablet [...] Routine 0900 (Given - Provider: Felisa Holland) amlodipine (NORVASC) tablet 5 mg (CANCELED) 5 mg, oral, DAILY, First dose on Thu09/10/09 at 0900, Until Discontinued, Routine 0722 (Given - Provider: Israel Roach RN) amlodipine [...] on Thu09/10/09 at 0900, Until Discontinued, Routine 0747 (Given [...] 2100 (Given - Provider: Cheli Kulkarni RN) sodium chloride 0.9 % flush 3 mL (CANCELED) 3 mL, intravenous, EVERY 8 HOURS, First dose on Thu09/09/09 at 1845, Until Discontinued, Routine 184 (Given - Provider: Carlos Reyez) 0000 (Given - Provider: Leonora Kent)0722 (Given - Provider: Israel Roach RN)1712 (Given - Provider: Israel Roach RN) 0000 (Given - Provider: Cheli Kulkarni, JANNY)0800 (Given - Provider: Felisa Holland) Continuous Medication [...] 1815, Until Thu09/10/09 at 1022, Other, Routine 2119 (Given - Provider: Leonora Kent) Linked Groups [...] 09/11/2009 documented in this encounter Care Teams Safety Equipment Testing Specialist Relationship Specialty Start Date End Date Joaquín Carpenter MD [address] [place] [address] PCP - General 09/04/09 10/26/12 documented as of this encounter
--- OUTSIDE RECORDS SUMMARY | 2024-05-06 04:55 | XMS_ITS | Encounter Summary ---
Author Organization [facility] Address [address] [place] [address] Care Team Providers Care Financial Secretary Name Role Phone Joaquín Carpenter MD Primary Care Provider [phone] Reason for Visit * Reason Onset Date Comments Other 06/15/2012 [facility]? ( Lipids ) Returning Call 06/15/2012 Encounter Details Date Type Department Care Team ([facility] Contact Info) Description 06/15/2012 Telephone [facility] Cardiology - [address] [place], [place] [phone] Mary Tanner, JANNY Other (Question if Labs [...] 1408 EST Had some done at the [facility] and will ask their office to send some to our practice.PCP is changing his cholesterol medication. Let him know I would have Mary RN touch base with himafter the New year, he is fine with plan. No learning barriers identified. * Telephone Encounter - Nadine Wing - 07/09/2012 1313 EST Pt is returning call from 06/15. documented in this encounter Plan of Treatment Upcoming Encounters Date Type Department Care Team (Late st Contact Info) Description 08/08/2024 13:00 EST Office Visit [facility] Gastroenterology - [address] [id number] Kera Tatum PA-C 111 [facility], [address] [place] [address] 11/15/2024 18:30 EDT Office Visit [facility] Cardiology - [place] [place] [address] Davian Almonte MD [address] [place] [address] documented as of this encounter Visit Diagnoses Not on filedocumented in this encounter Care Teams Financial Secretary Relationship Specialty Start Date End Date Joaqíun Carpenter MD [address] [place] [address] PCP - General 09/04/09 10/26/12 documented as of this encounter
--- OUTSIDE RECORDS SUMMARY | 2024-05-06 04:55 | XMS_ITS | Encounter Summary ---
Author Organization [facility] Address [address] [place] [address] Care Team Providers Care Cigar Machine Feeder Name Role Phone Joaquín Carpenter MD Primary Care Provider [phone] Reason for Visit * Reason Comments Coronary Artery Disease Hypertension Encounter Details Date Type Department Care Team (Latest Contact Info) Description 10/07/2011 14:50 EDT Office Visit [facility] Cardiology - [address] [place] [address] Broderick Galloway MD [address] [place] [address] Coronary atherosclerosis of [place] coronary artery (Primary Dx) Social History Tobacco [...] none Past Medical History Diagnosis Date ??? [place] (myocardial infarction) 1992, 2003 ??? CAD (coronary [...] or interrupt this medication withour discussing with feed house supervisor Start this medication in one month. [...] Description 08/08/2024 13:00 EST Office Visit [facility] Gastroenterology - [address] [address] Kera Tatum PA-C 111 [facility], [address] [place] [phone] 11/15/2024 18:30 EDT Office Visit [facility] Cardiology - [address] [place] [address] Davian Almonte MD [address] [place] [id number] documented as of this encounter Visit Diagnoses Diagnosis Coronary atherosclerosis of [place] coronary artery- Primary documented in this encounter [...] 04/13/2012 added in this encounter Care Teams Cigar Machine Feeder Relationship Specialty Start Date End Date Joaquín Carpenter MD [address] [place] [address] PCP - General 09/04/09 10/26/12 documented as of this encounter
--- OUTSIDE RECORDS SUMMARY | 2024-05-06 04:55 | XMS_ITS | Encounter Summary ---
Author Organization [facility] Address [address] [place] [address] Care Team Providers Care Screening Representative Name Role Phone Joaquín Carpenter MD Primary Care Provider [phone] Reason for Visit * Reason Comments Coronary Artery Disease Encounter Details Date Type Department Care Team ([facility] Contact Info) Description 04/13/2012 11:20 EDT Office Visit [facility] Cardiology - [address] [place] [address] Broderick Galloway MD [address] [place] [address] [place] [address] Coronary artery disease (Primary Dx) Social [...] Progress Notes * Broderick Galloway MD - 08/31/2012 1204 EST RE: NAME: RAUL BATISTA : 1955 PROGRESS/FOLLOWUP NOTE - 04/13/2012 [place] [address] Cope: I am writing in [...] MD - Job ID: SM Doc ID: [id number] Ext Doc ID: [id number] cc: Main Cope MD * True Greene MD - 04/13/2012 2741 EDT Subjective: Patient is a 56 y.o. [...] his most recent HbA1C was [address] With the Lantus, his BS is so [...] CV regimen. - Check FLP at the CT in May, 2012. Depending on his LDL- he could get started on Crestor. Previously he was on Zocor 80 mg and had some transaminase elevation which was stopped few mo ago. - Encouraged further exercise and weight loss. documented in this encounter Plan of Treatment Upcoming Encounters Date Type Department Care Team (Late st Contact Info) Description 08/08/2024 13:00 EST Office Visit [facility] Gastroenterology - [address] [address] Kera Tatum PA-C 111 [facility], [facility], [address] [place] [address] 11/15/2024 18:30 EDT Office Visit [facility] Cardiology - [address] [place] [address] Davian Almonte MD [address] [place] [address] documented as of this encounter Visit Diagnoses Diagnosis Coronary artery disease- Primary Coronary atherosclerosis of unspecified type of vessel, [place] or graft documented in this encounter Discontinued [...] daily. added in this encounter Care Teams Screening Representative Relationship Specialty Start Date End Date Joaquín Carpenter MD [address] [place] [address] PCP - General 09/04/09 10/26/12 documented as of this encounter
--- OUTSIDE RECORDS SUMMARY | 2024-05-06 04:55 | XMS_ITS | Encounter Summary ---
Author Organization [facility] Address [address] [place] [address] Care Team Providers Care Portable Power Tool Repairer Name Role Phone Joaquín Carpenter MD Primary Care Provider [phone] Encounter Details Date Type Department Care Team (Late Contact Info) Description 11/23/2009 Abstract [facility] Cardiology - [facility] [address] [place], [place] [phone] Joaquín Carpenter MD [address] [place] [phone] Social History Tobacco Use Types Packs/Day Years [...] Upcoming Encounters Date Type Department Care Team ([facility] Contact Info) Description 08/08/2024 13:00 EST Office Visit [facility] Gastroenterology - [address] [address] Kera Tatum PA-C 111 [facility], [address] [place] [address] 11/15/2024 18:30 EDT Office Visit [facility] Cardiology - [address] [place] [address] Davian Almonte MD [address] [place], [place] [address] documented as of this encounter Visit Diagnoses Not on filedocumented in this encounter Care Teams Portable Power Tool Repairer Relationship Specialty Start Date End Date Joaquín Carpenter MD [address] [place], [place] [phone] PCP - General 09/04/09 10/26/12 documented as of this encounter
--- OUTSIDE RECORDS SUMMARY | 2024-05-06 04:55 | XMS_ITS | Encounter Summary ---
Author Organization [facility] Address [address] [place] [address] Care Team Providers Care Coffee Shop Attendant Name Role Phone Joaquín Carpenter MD Primary Care Provider [phone] Encounter Details Date Type Department Care Team (Late Contact Info) Description 02/04/2012 Results Only [facility] Family Medicine [address] [address] Gregoria Nicholas MD [address] [place] [phone] Social History Tobacco Use Types Packs/Day Years [...] 08/08/2024 13:00 EST Office Visit [facility] Gastroenterology - [address] [place] [address] [place], [place] [address] Kera Tatum PA-C 111 [facility], [address] [place] [address] 11/15/2024 18:30 EDT Office Visit [facility] Cardiology - [address] [place], [place] [phone] Davian Almonte MD [address] [place], [place] [phone] documented as of this encounter Procedures Procedure [...] reading/interpreti ng unformatted reports. Name: ? RAUL TRUJILLO ? Accession #: ? [id number] ? : ? 1955 (Age: 56) ??M [...] a variable amount of melanin pigment. ??(Dr. Velazquez)/[facility] Document reviewed and electronically signed by: ELVIS [...] Description: ? Received in formalin labelled Raul Trujillo and 2.0 mm bx mid back is an irregular punch biopsy specimen of rock and brown-black skin which measures 0.3 x 0.2 cm in diameter, excised to a depth of 0.3 cm. ??The specimen is submitted intact in one cassette. ??(Carmen Gallegos)/natty End of Report [facility] 02/04/2012 02/05/2012 21: 11 EDT Gregoria Nicholas MD PATHOLOGY ORDERABLES [facility] [address] [place] [address] documented in this encounter Visit Diagnoses Not on filedocumented in this encounter Care Teams Coffee Shop Attendant Relationship Specialty Start Date End Date Joaquín Carpenter MD [address] [place] [address] PCP - General 09/04/09 10/26/12 documented as of this encounter
--- OUTSIDE RECORDS SUMMARY | 2024-05-06 04:55 | XMS_ITS | Encounter Summary ---
Author Organization [facility] Address [address] [place] [address] Care Team Providers Care Ict Sales Representative Name Role Phone Joaquín Carpenter MD Primary Care Provider [phone] Reason for Visit * Reason Onset Date Comments Results 04/18/2010 ETT of 04/12/10 Encounter Details Date Type Department Care Team ([facility] Contact Info) Description 04/18/2010 Telephone [facility] Cardiology - [address] [place] [address] Mary Valadez, RN Results (ETT of 04/12/10) [...] 08/08/2024 13:00 EST Office Visit [facility] Gastroenterology - [address] [address] Kera Tatum PA-C 111 [facility], [address] [place] [phone] 11/15/2024 18:30 EDT Office Visit [facility] Cardiology - [address] [place] [address] Davian Almonte MD [address] [place], [place] [address] documented as of this encounter Visit Diagnoses Not on filedocumented in this encounter Care Teams Ict Sales Representative Relationship Specialty Start Date End Date Joaquín Carpenter MD [address] [place] [address] PCP - General 09/04/09 10/26/12 documented as of this encounter
--- OUTSIDE RECORDS SUMMARY | 2024-05-06 04:55 | XMS_ITS | Encounter Summary ---
Author Organization [facility] Address [address] [place] [address] Care Team Providers Care Er Registrar Name Role Phone Joaquín Carpenter MD Primary Care Provider Reason for Visit * Reason Comments Follow-up 6 month Encounter Details Date Type Department Care Team ([facility] Contact Info) Description 10/08/2010 15:00 EDT Office Visit [facility] Cardiology - [place] [address] Broderick Galloway MD [address] [place] [address] Cor athrscl-uns vessel (Primary Dx) Social [...] none Past Medical History Diagnosis Date ??? [place] (myocardial infarction) 1992, 2003 ??? CAD (coronary [...] LFT anomalies Due for CT scan at [place] Objective: BP 130/60 Pulse 69 Ht 175.3 [...] Description 08/08/2024 13:00 EST Office Visit [facility] Gastroenterology - [address] [phone] Kera Tatum PA-C 111 [facility], [address] [place] [phone] 11/15/2024 18:30 EDT Office Visit [facility] Cardiology - [place] [address] Davian Almonte MD [address] [place], [place] [address] documented as of this encounter Visit Diagnoses Diagnosis Coronary atherosclerosis of unspecified type of vessel, [place] or graft- Primary documented in this encounter [...] 02/10/2016 added in this encounter Care Teams Er Registrar Relationship Specialty Start Date End Date Joaquín Carpenter MD [address] [place] [address] PCP - General 09/04/09 10/26/12 documented as of this encounter
--- OUTSIDE RECORDS SUMMARY | 2024-05-06 04:55 | XMS_ITS | Encounter Summary ---
Author Organization [facility] Address [address] [place] [address] Care Team Providers Care Saturation Diver Name Role Phone Joaquín Carpenter MD Primary Care Provider [phone] Encounter Details Date Type Department Care Team (Late Contact Info) Description 09/07/2009 Orders Only [facility] Cardiology - [facility] [address] [place] [address] Broderick Lozada MD [address] [place] [address] Social History Tobacco Use Types Packs/Day [...] 08/08/2024 13:00 EST Office Visit [facility] Gastroenterology - [address] [phone] Kera Tatum PA-C 111 [facility], [address] [place] [id number] 11/15/2024 18:30 EDT Office Visit [facility] Cardiology - [address] [place] [address] Davian Almonte MD [address] [place], [place] [phone] documented as of this encounter Procedures Procedure Name Priority Date/Time Associated Diagnosis Comments LEFT HEART CATH 09/07/2009 11:00 EST documented in this encounter Results * LEFT HEART CATH (09/07/2009 11:00 EST) Anatomical Region Laterality Modality Other 09/07/2009 11:0 0 EST Impressions 09/19/2009 15:57 EST ?[facility] ? [address] ??[place], [place] [address] ? [phone] ? [email or web address] ?Final Interventional Cardiovascular Catheterization Report ?--- SUMMARY [...] not be stopped without consultation with a lockstitch coat joiner. Clopidogrel (plavix) is recommended for a minimum of 12 months after the drug eluting stent procedure. ? --- PATIENT PRESENTATION --- The patient is a 53 year old male. ??The primary indication for PCI was PCI for high risk Non-STEMI or unstable angina. Additional indications include: angina, Positive Nuclear Stress Test, Unstable angina. The patient has the following Comorbidities/Risk Factors: ??Dyslipidemia, Hypertension, Prior PR, Prior PCI. Diabetes Oral. : 1955 ?Sex: male ?Height: 177.8cm ?Weight: 109.1kg ?BSA: 2.26 Allergies: ??NKA Pre-Benefits Representative Values: ??HCT: 41.8 ?Platelets: 230.0 ?Creatinine:.6 ? [...] was crossed successfully with an 0.014 inch [employer] wire. We then inflated a 3.0 mm diameter of approximately 15 mm length [employer] in the mid to distal RCA. ?? [...] mm diameter of approximately 12 mm length [place] drug-eluting stent in the distal RCA. ?? The maximal inflation pressure was >16 cale. ??The stent was successfully deployed. We then inflated a 3.5 mm diameter of approximately 30 mm length [place] drug- eluting stent in the ??mid RCA. ?? The maximal inflation pressure was >16 cale. The stent was successfully deployed. We then inflated a 3.5 mm diameter of approximately 15 mm length Quantum Lanier balloon in the mid to distal RCA. ?? The maximal inflation pressure was >16 cale. We then inflated a 3.0 mm diameter of approximately 12 mm length [place] drug- eluting stent in the ??distal RCA. [...] method used was: ? [facility] SELECTED MEDICATION ADMINISTERED DURING THE PROCEDURE: ??FENTANYL, VERSED ? (Please see PhysioLog report for complete list of medications used.) Referring Physician: BRODERICK LOZADA MD Referring Physician 2: JOAQUÍN CARPENTER MD Interventional Attending: Broderick Lozada MD Interventional Fellow: Lara Stinson MD As the attending, supervising lockstitch coat joiner, I was present for the entire procedure. Signature date/time: 09/19/2009 15:57:33 ? Narrative 09/19/2009 15:57 EST ?[facility] ? [address] [place] [address] ??[place] [address] ? [phone] ? [email or web address] ?Final Diagnostic Cardiovascular Catheterization Report ?--- SUMMARY [...] the following Comorbidities/Risk Factors: ??Dyslipidemia, Hypertension, Prior PR, Prior PCI. Diabetes Oral. : 1955 ?Sex: male ?Height: 177.8cm ?Weight: 109.1kg ?BSA: 2.26 Allergies: ??NKA Pre-Benefits Representative Values: ??HCT: 41.8 ?Platelets: 230.0 ?Creatinine:.6 ? [...] MD Referring Physician 2: JOAQUÍN CARPENTER MD Attending: Broderick Lozada MD Diagnostic Fellow: Lara Stinson MD As the attending, supervising lockstitch coat joiner, I was present for the entire procedure. Signature date/time: 09/17/2009 2:44:03 PM Procedure Note Broderick Lozada MD - 04/12/2010 [facility] [address] [place] [address] [phone] [email or web address] Final Diagnostic Cardiovascular Catheterization Report --- SUMMARY [...] the following Comorbidities/Risk Factors: Dyslipidemia, Hypertension, Prior PR, Prior PCI. Diabetes Oral. : 1955 Sex: male Height: 177.8cm Weight: 109.1kgBSA: 2.26 Allergies: NKA Pre-Benefits Representative Values: HCT: 41.8 Platelets: 230.0 Creatinine:.6 --- [...] arteriography was then performed using a [id number] [id number] to engage the left coronary artery and [...] Lara Stinson MD As the attending, supervising lockstitch coat joiner, I was present for the entire procedure. Signature date/time: 09/17/2009 2:44:03 PM IMPRESSION [facility] [address] [place] [address] [phone] [email or web address] Final Interventional Cardiovascular Catheterization Report --- SUMMARY [...] not be stopped without consultation with a lockstitch coat joiner. Clopidogrel (plavix) is recommended fora minimum of 12 months after the drug eluting stent procedure. --- PATIENT PRESENTATION --- The patient is a 53 year old male. The primary indication for PCI was PCIfor high risk Non-STEMI or unstable angina. Additional indications include: angina, Positive Nuclear Stress Test, Unstable angina. The patient has the following Comorbidities/Risk Factors: Dyslipidemia, Hypertension, Prior PR, Prior PCI. Diabetes Oral. : 1955 Sex: male Height: 177.8cm Weight: 109.1kgBSA: 2.26 Allergies: NKA Pre-Benefits Representative Values: HCT: 41.8 Platelets: 230.0 Creatinine:.6 --- [...] RCA was crossed successfully with an 0.014inch [employer] wire. We then inflated a 3.0 mm diameter of approximately 15 mm length [employer]xe inthe mid to distal RCA. The maximal [...] 3.5mm diameter of approximately 12 mm length [place] drug-eluting stent inthe distal RCA. The maximal inflation pressure was >16 cale. The stent was successfully deployed. We then inflated a 3.5 mm diameter of approximately 30 mm length [place] drug- eluting stent in the mid RCA. The maximal inflation pressure was >16atm. The stent was successfully deployed. We then inflated a 3.5 mm diameter of approximately 15 mm length Quantum Lanier balloon in the mid to distal RCA. The maximal inflationpressure was >16 cale. We then inflated a 3.0 mm diameter of approximately 12 mm length [place] drug- eluting stent in the distal RCA. [...] for complete list of medicationsused.) Referring Physician: KIERRA HAYES,BRODERICK Ansari Referring Physician 2: JOAQUÍN CARPENTER MD Interventional Attending: Broderick Lozada MD Interventional Fellow: Lara Stinson MD As the attending, supervising lockstitch coat joiner, I was present for the entire procedure. Signature date/time: 09/19/2009 15:57:33 Broderick Lozada MD CARDIAC CATH ORDERAB LES documented in this encounter Visit Diagnoses Not on filedocumented in this encounter Care Teams Saturation Diver Relationship Specialty Start Date End Date Joaquín Carpenter MD [address] [place] [address] [place] [address] PCP - General 09/04/09 10/26/12 documented as of this encounter
--- OUTSIDE RECORDS SUMMARY | 2024-05-06 04:55 | XMS_ITS | Encounter Summary ---
Author Organization [facility] Address [address] [place] [address] Care Team Providers Care Health Science Writer Name Role Phone Joaquín Carpenter MD Primary Care Provider [phone] Encounter Details Date Type Department Care Team (Late Contact Info) Description 10/15/2009 Abstract [facility] Cardiology - [facility] [address] [place], [place] [phone] Joaquín Carpenter MD [address] [place] [id number] Social History Tobacco Use Types Packs/Day Years [...] Upcoming Encounters Date Type Department Care Team ([facility] Contact Info) Description 08/08/2024 13:00 EST Office Visit [facility] Gastroenterology - [address] [phone] Kera Tatum PA-C [address] [facility], [address] [place] [address] 11/15/2024 18:30 EDT Office Visit [facility] Cardiology - [address] [place] [place] [address] Davian Almonte MD [address] [place], [place] [address] documented as of this encounter Visit Diagnoses Not on filedocumented in this encounter Care Teams Health Science Writer Relationship Specialty Start Date End Date Joaquín Carpenter MD [address], [place] [phone] PCP - General 09/04/09 10/26/12 documented as of this encounter
--- OUTSIDE RECORDS SUMMARY | 2024-05-06 04:55 | XMS_ITS | Encounter Summary ---
Author Organization [facility] Address [address] [place] [address] Care Team Providers Care Aerobics Teacher Name Role Phone Joaquín Carpenter MD Primary Care Provider [phone] Reason for Visit * Reason Onset Date Comments Paperwork request 08/25/2012 for surgery Returning Call 08/25/2012 Encounter Details Date Type Department Care Team ([facility] Contact Info) Description 08/25/2012 Telephone [facility] Cardiology - [place] [address] [place] [address] Broderick Galloway MD [address] [place] [address] [place] [address] Paperwork request (for surgery); Returning Call [...] Encounter - Mary Tanner RN - 09/02/2012 0905 EST Clearance Letter faxed to Dr. Main Cope's office: [phone]/ [phone]. Mary Tanner RN * Telephone Encounter - Mary Tanner RN - 08/31/2012 1130 EST Letter dictated Broderick Galloway MD * Telephone Encounter - Crissy Clifton - 08/27/2012 1016 EST The patient is calling the nurse back. He gave the fax number to 's office. [phone] * Telephone Encounter - Mary Tanner RN - 08/26/2012 1224 EST Patient called to say he's scheduled for Right shoulder surgery with Dr. Main Cope in [place], [place] on 09/22/12. Dr. Cope will need [...] Info) Description 08/08/2024 13:00 EST Office Visit [facility] Gastroenterology - [address] [address] Kera Tatum PA-C 111 [facility], [address] [place] [address] 11/15/2024 18:30 EDT Office Visit [facility] Cardiology - [address] [place], [place] [phone] Davian Almonte MD [address] [place], [place] [phone] documented as of this encounter Visit Diagnoses Not on filedocumented in this encounter Care Teams Aerobics Teacher Relationship Specialty Start Date End Date Joaquín Carpenter MD [address] [place] [address] PCP - General 09/04/09 10/26/12 documented as of this encounter
--- OUTSIDE RECORDS SUMMARY | 2024-05-06 04:55 | XMS_ITS | Encounter Summary ---
Author Organization [facility] Address [address] [place] [address] Care Team Providers Care Nurse General Duty Name Role Phone Joaquín Carpenter MD Primary Care Provider [phone] Encounter Details Date Type Department Care Team (Latest Contact Info) Description 09/07/2009 7:22 EST - 09/08/2009 12:32 EST Hospital Encounter [facility] Cardiac/Telemetry Unit [address], [place] [id number] Broderick Galloway MD [address] [place] [address] [place] [address] Discharge Disposition: Home or Self Care [...] Course: 53 yo man with hx prior [place], coronary stents X2 2003, HTN, HLP, DM [...] or interrupt this medication withour discussing with sales development manager 30 Tab 11 ??? metformin (GLUCOPHAGE) 1,000 mg tablet Take by mouth 2 times daily with meals. Restart Metformin Thu Take as previously prescribed Metformin 1000 mg in the morning and Metformin 500 mg each evening Indications: TYPE 2 DIABETES MELLITUS 30 Tab 0 Diagnostic Studies: DIAGNOSTIC STUDY RESULTS: [facility] 09-07-2009 Cardiac: LM:Nl LAD:50% mid, 60% distal Cx:40% distal RCA: 90% distal, 70% mid EF:60% LVEDP: 10 There was no gradient across the aortic valve. No wall motion abnormalities and no mitral regurgitation. Diagnostic Summary and Plan: CAD 2 VD RCA is culprit LV Function Nl Interventional Procedure: The RCA was treated with a 3.0 OTW maverick followed by a 3.5 [place], and [place] Voyager Stent delivery required 2 nataly wires. A 3.0x15, 3.5x12 and 3.5x[address] and post dilated with a [...] while taking these medications, immediately contact your sales development manager. Do not stop taking aspirin or Plavix without discussing this with your doctor. Appointments: See Broderick Nance MD In 6 weeks. The [facility] cardiology clinic will notify you of appointment [...] or interrupt this medication withour discussing with sales development manager 30 Tab 11 09/07/2009 09/10/2009 metformin (GLUCOPHAGE) [...] or interrupt this medication withour discussing with sales development manager 30 Tab 11 09/07/2009 09/10/2009 aspirin 325 [...] this encounter Progress Notes * Marleni Maldonado SALES ANALYTICS MANAGER - 09/11/2009 1029 EST Post Interventional Cardiology SALES ANALYTICS MANAGER CAD S/p PCI MARY X2 prox & [...] in cardiac rehab near his home in [facility]. Had given pt written material on [...] - 09/07/2009 1724 EST Post Interventional Cardiology SALES ANALYTICS MANAGER CAD s/p PCI MARY X3 RCA S- [...] receptive and would want to participate at [facility] (Critical access hospital); written materials left with patient. 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 Broderick Galloway in 6 weeks 11) Cardiac Rehab - encouraged pt receptive and would want to participate at [facility] * Broderick Galloway MD - 09/07/2009 0000 EST September 07, 2009 Joaquín Carpenter MD [facility] [address] [place] [address] Carpenter: I am writing in [...] inferior ischemia. Today we brought Raul the labor representative where coronary arteriography demonstrated moderate luminal irregularities [...] PM by Broderick Galloway MD / Confirmation: [id number] Dictation ID: [id number] cc:Joaquín Carpenter MD documented in this encounter [...] reversible inferior wall defect. 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 He has no planned surgeries or bleeding issues. He states several years ago he has had a intervention to is coronaries [facility]. PMH PSH Past Medical History Diagnosis Date ??? [place] (myocardial infarction) x2 ??? CAD (coronary artery [...] stress concerting for plaque rupture. Plan : [facility] KINDRA SMALLS MD 09/07/2009 9:42 AM documented [...] CARDIAC CATHETERIZATION REPORT NOT FINAL ATTENDING: Nilesh Fellow/SALES ANALYTICS MANAGER: Shantell Indication: A ( 53 ) year [...] 3.0 OTW maverick followed by a 3.5 [place], and NC Voyager Stent delivery required 2 nataly wires. A 3.0x15, 3.5x12 and 3.5x[address] and post dilated with a 3.5 mm Quantum. This yielded a good result and no complications. Plan: (See Also Post Procedure Orders) Aspirin 325 mg po qd x 30 day, then 81 qd indefinitely. Aspirin should never be stopped for more than 48 hours without consulting a sales development manager. Plavix 75 mg po qd x 2 [...] EST Office Visit [facility] Gastroenterology - [address] [id number] Kera Tatum PA-C [address] [place] [address], [address] [place] [address] 11/15/2024 18:30 EDT Office Visit [facility] Cardiology - Jen[address] [place] [address] Davian Almonte MD [address] [place], [place] [address] documented as of this encounter Procedures Procedure [...] 70 - 100 mg/dl [facility] Super[place] [id number] Test Performed by Nursing Services [facility] 09/08/2009 11:1 6 EST 09/08/2009 11:24 EST Broderick Galloway MD CHEMISTRY & BLOOD GA S ORDERABLES Performing Organization Address [facility] Co de Phone Number [facility] [address] [place] [address] * (ABNORMAL) GLUCOSE, GLUCOMETER (09/08/2009 8:08 EST) Glucose, Fingerstick 202(H) 70 - 100 mg/dl [facility] Supervisor [place] [id number] Test Performed by Nursing Services [facility] 09/08/2009 8:08 EST 09/08/2009 8:13 EST Broderick Galloway MD CHEMISTRY & BLOOD GA S ORDERABLES Performing Organization Address [facility] Co de Phone Number [facility] [address] [place] [address] * CK MB WITH TOTAL CK (09/08/2009 7:38 EST) CK 113 0 - 250 U/L [facility] MB 2.3 0 - 5.0 ng/ml [facility] CK-MB Index Not calculated , normal MB. 0 - 2.5 [facility] Blood specimen (specimen) 09/08/2009 7:38 EST 09/08/2009 7:51 EST Lara Stinson MD CHEMISTRY & BLOOD GA S ORDERABLES Performing Organization Address [facility] Co de Phone Number [facility] [address] [place] [address] * (ABNORMAL) LIPID PROFILE (INCLUDES CHOLESTEROL, TRIGLYCERIDES, HDL, LDL) (09/08/2009 7:38 EST) Cholesterol 198 mg/dl [facility] Comment: Desirable:<200 Borderline High:200-239 High:>sb=941 Triglycerides 178(H) 35 - 160 mg/dl [facility] HDL 52 mg/dl [facility] Comment: Low:<40 High(Desirable):>or=60 LDL, Calculated 110 mg/dl [facility] Comment: Optimal:<100 Above optimal:100-129 Borderline High:130-159 High:160-189 Very High:>ql=053 Chol/HDL Ratio 3.8 [facility] Fasting? Unknown [facility] Blood specimen (specimen) 09/08/2009 7:38 EST 09/08/2009 7:51 EST Lara Stinson MD CHEMISTRY & BLOOD GA S ORDERABLES Performing Organization Address [facility] Co de Phone Number [facility] [address] [place] [address] * CREATININE (09/08/2009 7:38 EST) Creatinine 0.79 0.7 - 1.5 mg/dl [facility] GFR, Calculated >60 ml/min/1.7 3m2 [facility] Blood specimen (specimen) 09/08/2009 7:38 EST 09/08/2009 7:51 EST Lara Stinson MD CHEMISTRY & BLOOD GA S ORDERABLES Performing Organization Address [facility] de Phone Number [facility] [address] [place] [address] * BUN (09/08/2009 7:38 EST) BUN 11 10 - 26 mg/dl [facility] Blood specimen (specimen) 09/08/2009 7:38 EST 09/08/2009 7:51 EST Lara Stinson MD CHEMISTRY & BLOOD GA S ORDERABLES Performing Organization Address [facility] Phone Number [facility] [address] [place] [address] * ELECTROLYTES (09/08/2009 7:38 EST) Sodium 137 136 - 145 mEq/L [facility] Potassium 4.6 3.5 - 5.0 mEq/L [facility] Chloride 100 96 - 110 mEq/L [facility] CO2 28 24 - 32 mEq/L [facility] Blood specimen (specimen) 09/08/2009 7:38 EST 09/08/2009 7:51 EST Lara Stinson MD CHEMISTRY & BLOOD GA S ORDERABLES Performing Organization Address [facility] de Phone Number [facility] [address] [place] [address] * HEMAGRAM (09/08/2009 7:38 EST) WBC 9.35 4.0 - 10.4 K/cmm [facility] RBC 5.19 4.36 - 5.78 M/cmm [facility] Hemoglobin 15.6 13.8 - 17.3 gm/dl [facility] HCT 45.2 39.5 - 50.2 % [facility] MCV 87 81 - 95 fl [facility] MCH 30.1 27.6 - 33.0 pg [facility] MCHC 34.5 32.8 - 36.4 gm/dl [facility] PLT 251 141 - 320 K/cmm [facility] RDW-CV 13.0 11.8 - 14.1 % [facility] Blood specimen (specimen) 09/08/2009 7:38 EST 09/08/2009 7:51 EST Lara Stinson MD HEMATOLOGY & PF4 ORD ERABLES Performing Organization Address [facility] Co de Phone Number [facility] [address] [place] [address] * (ABNORMAL) GLUCOSE, GLUCOMETER (09/07/2009 20:25 EST) Glucose, Fingerstick 116(H) 70 - 100 mg/dl [facility] [place] ID [id number] Test Performed by Nursing Services [facility] 09/07/2009 20:2 5 EST 09/07/2009 20:47 EST Broderick Galloway MD CHEMISTRY & BLOOD GA S ORDERABLES Performing Organization Address [facility] Co de Phone Number [facility] [address] [place] [address] * (ABNORMAL) GLUCOSE, GLUCOMETER (09/07/2009 17:10 EST) Glucose, Fingerstick 152(H) 70 - 100 mg/dl [facility] Supervisor [place] [id number] Test Performed by Nursing Services [facility] 09/07/2009 17:1 0 EST 09/07/2009 17:26 EST Broderick Galloway MD CHEMISTRY & BLOOD GA S ORDERABLES Performing Organization Address [facility] Co de Phone Number [facility] [address] [place] [address] * PTT (09/07/2009 8:45 EST) PTT 28 20 - 35 secs [facility] Comment:Therapeutic Heparin range: 60-100 seconds Blood specimen (specimen) 09/07/2009 8:45 EST 09/07/2009 8:51 EST Lara Stinson MD HEMATOLOGY & PF4 ORD SAFFORDBLES Performing Organization Address [facility] de Phone Number [facility] [address] [place] [address] * PROTIME (09/07/2009 8:45 EST) Pro Time 13.2 12.2 - 15.5 secs [facility] Comment:Note new prothrombin time reference range effective 09 I.N.R. 0.9 0.9 - 1.1 Ratio [facility] Comment: Moderate Intensity Coumadin INR = 2.0-3.0 Adjustments in anticoagulant therapy dose should be based upon the INR and NOT the Pro Time. Blood specimen (specimen) 09/07/2009 8:45 EST 09/07/2009 8:51 EST Lara Stinson MD HEMATOLOGY & PF4 ORD ERABLES Performing Organization Address [facility] de Phone Number [facility] [address] [place] [address] * HEMAGRAM (09/07/2009 8:45 EST) WBC 6.67 4.0 - 10.4 K/cmm [facility] [...] ORD ERABLES Performing Organization Address [facility] Co de Phone Number [facility] [address] [place] [address] * (ABNORMAL) CREATININE (09/07/2009 8:45 EST) Creatinine 0.69(L) 0.7 - 1.5 mg/dl [facility] GFR, Calculated >60 ml/min/1.7 3m2 [facility] Blood specimen (specimen) 09/07/2009 8:45 EST 09/07/2009 8:51 EST Lara Stinson MD CHEMISTRY & BLOOD GA S ORDERABLES Performing Organization Address [facility] Co de Phone Number [facility] [address] [place] [address] * BUN (09/07/2009 8:45 EST) BUN 14 10 - 26 mg/dl [facility] Blood specimen (specimen) 09/07/2009 8:45 EST 09/07/2009 8:51 EST Lara Stinson MD CHEMISTRY & BLOOD GA S ORDERABLES Performing Organization Address [facility] Co de Phone Number [facility] [address] [place] [address] * ELECTROLYTES (09/07/2009 8:45 EST) Sodium 137 136 - 145 mEq/L [facility] Potassium 4.3 3.5 - 5.0 mEq/L [facility] Chloride 102 96 - 110 mEq/L [facility] CO2 28 24 - 32 mEq/L [facility] Blood specimen (specimen) 09/07/2009 8:45 EST 09/07/2009 8:51 EST Lara Stinson MD CHEMISTRY & BLOOD GA S ORDERABLES Performing Organization Address [facility] Co de Phone Number [facility] [address] [place] [address] * (ABNORMAL) GLUCOSE, GLUCOMETER (09/07/2009 8:35 EST) Glucose, Fingerstick 174(H) 70 - 100 mg/dl [facility] Supervisor [place] ID [id number] Test Performed by Nursing Services [facility] 09/07/2009 8:35 EST 09/07/2009 8:36 EST Broderick Galloway MD CHEMISTRY & BLOOD GA S ORDERABLES [facility] [address] [place] [address] documented in this encounter Visit Diagnoses Diagnosis CAD (coronary artery disease) Coronary atherosclerosis of unspecified type of vessel, [place] or graft Hyperlipidemia LDL goal < 70 [...] on Thu09/07/09 at 1245, Until Discontinued, Routine 1245 (Not Given - Provider: Jason. 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 Rin Guillen, JANNY) documented in this encounter Orders Medications Ordered [...] 09/08/2009 documented in this encounter Care Teams Nurse General Duty Relationship Specialty Start Date End Date Joaquín Carpenter MD [address] [place] [address] PCP - General 09/04/09 10/26/12 documented as of this encounter
[2024-05-06 04:56] LABS: Abs Immature Grans 0.03 10^3/uL (0.0-0.06); Absolute Basophil Count 0.05 10^3/uL (0.0-0.2); Absolute Eosinophil Count 0.08 10^3/uL (0.0-0.7); Absolute Lymphocyte Count 2.65 10^3/uL (1.2-3.4); Absolute Monocyte Count 1.05 10^3/uL (0.1-0.8); Absolute Neutrophil Count 7.47 10^3/uL (1.2-6.7); Basophils % 0.4 %; Eosinophils % 0.7 %; HCT 44.7 % (40.0-50.0); HGB 14.9 g/dL (13.5-17.5); Immature Grans % 0.3 %; Lymphocytes % 23.4 %; MCHC 33.3 % (32.0-36.0); MCV 87 fL (80-95); MPV 9.9 fL (8.0-11.0); Monocytes % 9.3 %; Neutrophils % 65.9 %; Platelet Count 203 10^3/uL (130-400); RBC 5.14 10^6/uL (4.36-5.78); RDW 12.7 % (11.8-14.1); RDW-SD 40.5 fL; WBC 11.34 10^3/uL (4.4-10.8)
[2024-05-06] MEDS: ACETAMINOPHEN 1,000 MG/100 ML BAG 400 MG IVPB (04:58)
[2024-05-06] MEDS: Ketorolac 15 MG/ML VIAL IVP (04:58)
[2024-05-06 05:12] LABS: ALT 46 U/L (16-63); AST 26 U/L (15-37); Albumin 3.5 g/dL (3.4-5.0); Alkaline Phosphatase 82 U/L (46-116); Anion Gap 10.6 mmol/L (3-11); BUN 14 mg/dL (7-18); CO2 29.4 mmol/L (21.0-32.0); CREATININE 0.9 mg/dL (0.70-1.30); Chloride 101 mmol/L (98-107); Estimated GFR 92.45 (mL/min/1.73m2); Glucose 132 mg/dL (74-106); Lipase 52 U/L (16-77); Potassium 4.2 mmol/L (3.5-5.1); Sodium 141 mmol/L (136-145); Total Protein 7.8 g/dL (6.4-8.2)
[2024-05-06 05:18] LABS: Calcium 9.1 mg/dL (8.5-10.1)
[2024-05-06 05:24] LABS: Bilirubin Negative (Negative); Blood Trace-intact (Negative); Clarity Clear (Clear); Glucose 500 mg/dL (Negative); Ketones Negative (Negative); Leukocyte Esterase Negative (Negative); Nitrite Negative (Negative); Specific Gravity 1.025 (1.005-1.025); Urobilinogen 0.2 mg/dL (Up to 0.2); pH 5.5 (5-8)
[2024-05-06] MEDS: amLODIPine 10 MG TAB PO (05:26)
[2024-05-06] MEDS: Metoprolol CR 100 MG TABCR 150 MG PO (05:26)
[2024-05-06] MEDS: Lisinopril 5 MG TAB PO (05:26)
[2024-05-06 05:29] LABS: Bacteria Rare HPF (Negative); Casts Negative LPF (Negative); Crystals Negative HPF (Negative); Epithelial Cells Negative HPF (Negative); Mucus Negative (Negative); RBC 0-2 HPF (0-2); WBC Negative HPF (0-5)
[2024-05-06 05:30] LABS: C & S Indicated? No
[2024-05-06] MEDS: Normal Saline - Diluent 50 ML VIAL IJ (05:35)
[2024-05-06] MEDS: Omnipaque 350 MG/ML 100 ML BTL IJ (05:36)
--- NOTE | 2024-05-06 07:06 | DI.VRAD_ITS ---
PROCEDURE INFORMATION: Exam: CT Abdomen And Pelvis With Contrast Exam date and time: 05/06/2024 5:46 AM Age: 68 years old Clinical indication: Abdominal pain; Other: Lower abd pain, HX divertic; Prior surgery; Surgery date: 6+ months; Surgery type: Cholecystectomy, hiatal hernia TECHNIQUE: Imaging protocol: Computed tomography of the abdomen and pelvis with contrast. Contrast material: OMNI 350; Contrast volume: 100 ml; Contrast route: INTRAVENOUS (IV); COMPARISON: CT ABDOMEN PELVIS W 01/12/2024 7:50 PM FINDINGS: Lungs: Bilateral lower lobe micronodularity which are stable from 01/12/2024. Heart: Base of heart is unremarkable as visualized. Coronary arteries: Moderate calcified coronary atherosclerotic disease. Liver: Normal. No mass. Gallbladder and biliary ducts: Status post cholecystectomy. Pancreas: Normal. No ductal dilation. Spleen: Splenule is noted. Adrenal glands: Normal. No mass. Kidneys and ureters: Right kidney with dual vascular arterial supply. Benign right renal cysts. A few scattered renal hypodensities too small to characterize by modality, statistically to represent benign findings. Stomach and bowel: Short-segment colonic thickening with surrounding inflammatory stranding and multiple diverticula indicative of diverticulitis. Appendix: No evidence of appendicitis. Intraperitoneal space: Unremarkable. No free air. No significant fluid collection. Vasculature: Moderate calcified atherosclerotic disease of the visualized aorta extending into its major lower abdominal and lower extremity branches. Lymph nodes: Stable appearing central mesenteric tearing extruded stranding with numerous mesenteric nodes. Urinary bladder: Bladder is decompressed. Reproductive: Unremarkable as visualized. Bones/joints: Partially evaluated left total hip arthroplasty without evidence for acute surgical complication. Diffuse degenerative change of the visualized osseous structures. Soft tissues: Small fat containing supraumbilical midline hernia. IMPRESSION: Sigmoid diverticulitis. Difficult to exclude underlying neoplasm. No evidence for rupture or abscess on this examination. Dictated and Authenticated by: Isidro Arguello MD. Ordering:FRANKLYN Reyes MD
[2024-05-06 07:09] VITALS: BP 136/54; PULSE 63; RESP 15; O2SAT 95
[2024-05-06] MEDS: Amoxicillin 875/Clav. 125 TAB PO (07:16)
== END 2024-05-06 07:33 | disposition home or self-care (01) ==
PROVIDERS: Emergency Provider Student in an Organized Health Care Education/Training Program; PCP Nurse Practitioner Family
DX: K57.30 Diverticulosis of large intestine without perforation or abscess without bleeding (principal); E11.69 Type 2 diabetes mellitus with other specified complication
CPT/HCPCS: 36415; 80053; 83690; 96365; 96375; 99285; 74177; 81003; 81015; 83605; 85025; 99284; J0131; J1885; J3490

== ENCOUNTER 2024-06-08 06:08 | Day surgery (SDC) | payer MEDICARE, BC, SELFPAY ==
--- NOTE | 2024-06-07 15:51 | W.SURGCON ---
Date of service: 06/08/24 Time of Service: 07:30 Assessment and Plan Assessment and plan (1) Cirrhosis: Status: Chronic Assessment and plan: 68-year-old man due for EGD screening for varices in setting of cirrhosis. Overall plan: EGD History of Present Illness Narrative: 68-year-old man with cirrhosis needs screening for esophageal varices. PFSH All Active Problems (Updated 06/07/24 @ 15:52 by Pete Zhang MD) Heart murmur (Acute) Muscle fasciculation (Acute) Acquired cystic kidney disease (Acute) Nonulcer dyspepsia (Acute) Cirrhosis (Chronic) Osteoarthritis of right hip (Acute) POCUS injection: 01/01/2024 Chronic diarrhea (Acute) Venous stasis dermatitis of left lower extremity (Acute) RLS (restless legs syndrome) (Acute) HLD (hyperlipidemia) (Acute) Nonsustained paroxysmal ventricular tachycardia (Acute) Fatty liver disease, nonalcoholic (Acute) Obesity (Chronic) Vitamin D deficiency (Acute) Depression with anxiety (Acute) Coronary artery disease (Chronic) Tubular adenoma of colon (Chronic 03/27/17) DEEPALI (obstructive sleep apnea) (Chronic) Diabetes mellitus type 2 in obese (Chronic) Atherosclerotic heart disease [place] coronary artery w/angina pectoris (Chronic) Essential hypertension (Chronic) Medical History (Updated 06/07/24 @ 15:52 by Pete Zhang MD) Diverticulitis Adenomatous colon polyp NSTEMI (non-ST elevated myocardial infarction) 02/2020-pt. denies he had a NSTEMI, but states he had angina but no heart attack 2019 9 stents placed Elevated LFTs Vertigo Unstable angina Per pt. states this is not current, occurred over 15 years ago, follows up with internetworking technician last seen 11/25/22 Surgical History Status post debridement of bone spur left heel, Achilles tendon S/P right rotator cuff repair [facility] S/P cholecystectomy History of total left hip replacement (04/22/22) Status post carpal tunnel release of both wrists History of umbilical hernia repair Status post amputation of lesser toe of right foot Fifth toe was removed Excision, Distal Clavicle (05/11/15) DR BROWN/LEFT Coronary Stent 9 stents. Last placement on 02/11/16 Colonoscopy - MAC (03/27/17) Family History Mother Dementia Father Heart disease Hyperlipidemia Sister Breast cancer Brother Depression Heart disease Maternal Grandfather Heart disease Paternal Grandfather Heart disease Brother Heart disease Paternal Grandmother No problems noted. Paternal Grandfather Heart disease Social History Smoking/Tobacco Use Status: Former Tobacco Use tobacco type: cigarettes Quit Date: 07/20/92 Pack-years: 40 Tobacco: How many years used: 20 Second Hand Exposure: No Smoking risk assessment performed?: Yes Alcohol Intake: never Drug use: Current Sobriety Substance use type: marijuana and other Adopted: No Caregiver/Support person: No Household members: none Housing: apartment Number of Children: 0 number of grandchildren: 0 Education Level: high school Do you need help understanding health information?: Never current occupation: retired Sexually active: Yes Do you think of yourself as: straight/heterosexual Current gender identity: male What is your relationship status?: How often do you talk on the phone with friends or family?: three or more times per week How often do you get together with friends or relatives?: three or more times per week How often do you attend advent or sikh services?: 1-3 times per year Do you belong to any clubs or organized social groups?: no Panel score (0-1 are the most socially isolated patients): 1 NHANES result reviewed/action taken: Yes What type of physical activity do you participate in: walking and bicycling Duration: 45-60 minutes/day Frequency: 3-4 times per week Mahi/Mormon: Spiritism Special mahi needs: No Seatbelt use: always Helmet use: Yes Helmet use: always Drive intox or ride w/intox drivers license examiner: No Firearms in home: No Do you feel safe at home: Yes Do you feel safe in your relationship?: Yes Victim of physical abuse: No Victim of emotional abuse: No Victim of sexual abuse: No Would you like helpful sources: No Exam Narrative Exam Narrative: Gen: Non-toxic, comfortable and interactive Neuro: Alert and oriented x3 Psych: Good mood and affect. Good insight and understanding into condition. Chest: Non-labored breathing, no wheezing, no visible shortness of breath. Heart: Regular
[2024-06-08 06:15] VITALS: BP 150/64; PULSE 65; RESP 18; TEMP 36.4; O2SAT 97
[2024-06-08] MEDS: Normal Saline Flush 10 ML SYR IV (06:42)
--- NOTE | 2024-06-08 07:21 | ANES.PREOP_ITS ---
General Info Date of Service Date Performed: 06/08/24 Height: 5 ft 9 in Weight: 109.7 kg Body Mass Index (BMI): 35.6 Surgical Procedure: Operation Date: 06/08/24 07:35 Proposed Procedure Side Surgeon p Gastroscopy Pete Zhang MD Actual Procedure Side Surgeon p Gastroscopy Not Applicable Pete Zhang MD Meds Allergies and Home Medications Allergies Allergy/AdvReac Type Severity Reaction Status Date / Time isosorbide AdvReac Other (See Verified 06/08/24 06:30 Comment) Home Medication ?Medication ?Instructions ?Recorded amlodipine 10 mg tablet 10 mg PO QAM 07/23/14 lisinopril 5 mg tablet 5 mg PO QAM 07/23/14 metoprolol succinate 100 mg 150 mg PO QAM 07/23/14 tablet,extended release 24 hr (Toprol XL) nitroglycerin 0.4 mg sublingual 0.4 mg sublingual PRN PRN 07/23/14 tablet rosuvastatin 40 mg tablet (Crestor) 40 mg PO DAILY 07/23/14 trazodone 50 mg tablet 50 mg PO QHS 12/01/18 ranolazine 500 mg tablet,extended 500 mg PO BID 02/04/22 release,12 hr multivitamin 1 tab PO DAILY 04/17/22 cholecalciferol (vitamin D3) 25 25 mcg PO DAILY 05/22/22 mcg (1,000 unit) capsule aspirin 81 mg chewable tablet 81 mg PO DAILY 02/26/23 dapagliflozin propanediol 5 mg 10 mg PO DAILY 04/23/23 tablet (Farxiga) insulin glargine U-300 conc 300 50 unit subcut DAILY 11/24/23 unit/mL (3 mL) subcutaneous pen (Toujeo Max U-300 SoloStar) magnesium oxide 400 mg PO DAILY 03/09/24 cyclosporine 0.05 % eye drops in a 1 drp ophthalmic (eye) Q12H 05/02/24 dropperette (Restasis) insulin lispro 100 unit/mL 30 unit (0.3 mL) subcut TID #90 mL 05/02/24 subcutaneous pen (Humalog KwikPen (U-100) Insulin) amoxicillin 875 mg-potassium 1 tab PO Q12H #20 tabs 05/30/24 clavulanate 125 mg tablet Current Visit Medications: Current Medications Generic Name Dose Route Start Last Admin Trade Name Chance PRN Reason Stop Dose Admin IV Miscellaneous Supplies 1 each 06/08/24 06:00 Iv Access IV 07/07/24 23:59 DIRECTED HILARIO Sodium Chloride 0 ml 06/08/24 06:00 06/08/24 06:42 Normal Saline Flush 10 Ml Syr IV 07/07/24 23:59 10 ml PRN PRN Administration Sodium Chloride 0 ml 06/08/24 06:00 Normal Saline 10 Ml Vial IJ 07/07/24 23:59 DIRECTED PRN Sterile Water 0 ml 06/08/24 06:00 Water,Injection,Sterile 10 Ml Vial IJ 07/07/24 23:59 DIRECTED PRN PFSH Active Problems Active Problems: Problem Status Onset Code Heart murmur Acute R01.1 Muscle fasciculation Acute R25.3 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 Nonulcer dyspepsia Acute K30 Cirrhosis Chronic K74.60 Osteoarthritis of right hip Acute M16.11 Chronic diarrhea Acute K52.9 Venous stasis dermatitis of left lower extremity Acute I87.2 RLS (restless legs syndrome) Acute G25.81 HLD (hyperlipidemia) Acute E78.5 Nonsustained paroxysmal ventricular tachycardia Acute I47.2 Fatty liver disease, nonalcoholic Acute K76.0 Obesity Chronic E66.9 Vitamin D deficiency Acute E55.9 Depression with anxiety Acute F41.8 Coronary artery disease Chronic I25.10 Tubular adenoma of colon Chronic 03/27/17 D12.6 DEEPALI (obstructive sleep apnea) Chronic Diabetes mellitus type 2 in obese Chronic E11.9, E66.9 Atherosclerotic heart disease [place] coronary artery w/angina pectoris Chronic I25.119 Essential hypertension Chronic I10 Medical History Medical History Diverticulitis Adenomatous colon polyp NSTEMI (non-ST elevated myocardial infarction) 02/2020-pt. denies he had a NSTEMI, but states he had angina but no heart attack 2019 9 stents placed Elevated LFTs Vertigo Unstable angina Per pt. 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 Last placement on 02/11/16 Colonoscopy - MAC (03/27/17) Tobacco Smoking/Tobacco Use Status: Former Tobacco Use Second hand exposure: No Alcohol Alcohol Intake: never Substance Use Substance use: Current Sobriety Substance use type: marijuana and other Vital Signs and Lab Results Vital Signs Most Recent Vital Signs in EMR: Most Recent Vital Signs Temp Pulse Resp BP Pulse Ox 36.4 C L 65 18 150/64 H 97 06/08/24 06:15 06/08/24 06:15 06/08/24 06:15 06/08/24 06:15 06/08/24 06:15 Lab Results Blood Type / Crossmatch: No Data to Display Complete Blood Count: No Data to Display Complete Metabolic Panel: No Data to Display Liver Function Panel: No Data to Display Coagulation Panel: No Data to Display Cardiac Panel: No Data to Display Arterial Blood Gas: No Data to Display Venous Blood Gas: No Data to Display Pancreas Panel: No Data to Display Thyroid Panel: No Data to Display Infectious Disease: No Data to Display Blood Cultures: No Data to Display Toxicology Panel: 2 No Data to Display Imaging and Studies Imaging and Studies Study information below may be from another EMR and interpreted by another provider. Please see original notes in EMR for more complete details. EKG Summary: 01/02/24 Conclusion Sinus rhythm...normal P axis, V-rate 60- 99 Right bundle branch block...QRSd>120, terminal axis(90,270) DATE/TIME OF SERVICE: 02/28/22909 : 1955PERFORMING LOCATION: [facility] APPROVED REPORT Exam: Resting ECG Reason for Exam: NSVT CAD Patient Location: O HR:72 bpm ECG Measurements Heart Rate 72 AXIS MN 184 P 50 QRSd 110 QRS 92 QT 385 T10 QTc 422 Conclusion Sinus rhythm...normal P axis, V-rate 50- 99 Right axis deviation...QRS axis ( 91,269) Echocardiogram Summary: 05/20/23 Conclusion Normal left ventricular wall thickness and chamber size. Ejection fraction is 55 to 60%. Wall motion is normal Normal right ventricular size and systolic function Both atria are normal in size There is no structural or hemodynamically significant valvular disease : [facility]: Left VentricleThe left ventricular cavity was normal in size. Left ventricular systolic function was normal with an ejection fraction of 55- 60%. Left ventricular diastolic parameters were not diagnostic. Left ventricular wall thickness was normal. Left ventricular wall motion was normal; there were no regional wall motion abnormalities. Right VentricleThe right ventricular cavity was normal in size. Right ventricular systolic function was normal. Right ventricular wall thickness was normal. Left AtriumThe left atrium was normal in size. Right AtriumThe right atrium was normal in size. Aortic ValveThe aortic valve structure was trileaflet. The aortic leaflets were not thickened. There was no aortic valve stenosis. There was no aortic valve regurgitation. Mitral ValveMitral valve structure was normal. There was no significant mitral valve stenosis or regurgitation. Tricuspid ValveTricuspid valve structure was normal. There was no tricuspid valve regurgitation. There was no tricuspid valve stenosis. Pulmonic ValveThere was no pulmonic valve regurgitation. There was no pulmonic valve stenosis. Pulmonic ArteryUnable to assess PA pressure. Ascending AortaThe aorta was normal in size. PericardiumThere was no pericardial effusion. IVC/SVCThe inferior vena cava was normal in size. Cardiac Catheterization Summary: 03/19/20: [facility]: CORONARY ARTERIES: The coronary circulation is right dominant. Left main: Minor luminal irregularities. LAD: Proximal vessel lesion: There is a 30% stenosis. Patent stents with minimal ISR. Slow flow initially with rapid improvement to normal with IC NTG. Ramus intermedius: Minor luminal irregularities. Left circumflex: Proximal vessel lesion: There is a 30% stenosis. Distal vessel lesion: There is a 50% stenosis. unchanged. Right coronary: Proximal vessel lesion: There is minimal in-stent restenosis. Anesthesia Assessment and Plan Anesthesia History Personal History: No History of Anesthesia Complications Family History: No Family History of Anesthesia Complications Exercise Tolerance Exercise Tolerance: Metabolic Equivalents<4 Pertinent Negatives Pertinent Negatives: No Symptoms of GERD, No Major Cardiovascular Symptoms or Complaints and No Major Pulmonary Symptoms or Complaints Cardiac & Pulmonary Exam Cardiac Exam: Normal S1/S2 Heart Sounds Pulmonary Exam: Clear Bilateral Breath Sounds Implantable Cardiac Device Does patient have a Pacemaker or an ICD?: No Airway Exam Known Difficult Airway: No Mallampati Class: 3 Mouth Opening: Normal (> 3cm) Thyromental Distance: Greater than 3 cm Neck Range of Motion: Full ROM Neck Circumference: Normal Teeth Condition: Normal Dentition ASA Classification ASA Score: ASA 3 Emergency Case?: No NPO Status NPO Status: NPO Clears >2 hours, Solids >8 hours Anesthesia Plan Resuscitation Status: Full Code Anesthesia Technique: General Anesthesia Airway Planned: Natural Airway Monitors Used: Standard Monitors
[2024-06-08 07:26] VITALS: BMI 35.6
--- NOTE | 2024-06-08 07:49 | STOM_PTH ---
PATIENT: Raul Trujillo LOC: [facility] U#:[id number] AGE/SX: 68/M ROOM: RE06/08/[address]: Pete Zhang : 1955 BED: DIS: 06/08/2024 SPEC #: [id number] RECD: 06/08/24 12:51 STATUS: R[place] RE #: [id number] VICKY: 06/08/24 07:[address]: Pete Zhang DEPT: Surgical Specimen RECD BY: Carmen Hill ENTERED: 06/08/24 12:52 SP TYPE: STOMACH OTHR DR: David Ferguson DNP Tissues: 1 - BIOPSY BOWEL 2 - STOMACH BIOPSY 3 - STOMACH BIOPSY Procedures: GROSS AND MICRO LEVEL 4 Comments: [id number]
[2024-06-08 07:57] VITALS: BP 124/61; PULSE 72; RESP 18; TEMP 36.5; O2SAT 96
--- NOTE | 2024-06-08 08:03 | W.PM.DSUDISC ---
Date of service: 06/08/24 Time of Service: 08:04 Discharge Plan Disposition Patient Disposition: Home Condition: Good Discharge Details Attending Provider: Pete Zhang Primary Care Provider: David Ruiz Home Meds and New Rx's Prescriptions: No Action multivitamin Tablet 1 tab PO DAILY cyclosporine [Restasis] 0.05 % dropperette 1 drp ophthalmic (eye) Q12H insulin lispro [Humalog KwikPen Insulin] 100 unit/mL insulin pen 30 unit subcut TID Qty: 90 4RF amoxicillin-pot clavulanate 875-125 mg tablet 1 tab PO Q12H Qty: 20 0RF Rx Instructions: Take 1 tablet twice a day for 10 days ranolazine 500 mg tablet extended release 12 hr 500 mg PO BID cholecalciferol (vitamin D3) 25 mcg (1,000 unit) capsule 25 mcg PO DAILY insulin glargine U-300 conc [Toujeo Max U-300 SoloStar] 300 unit/mL (3 mL) insulin pen 50 unit subcut DAILY magnesium oxide 400 mg magnesium capsule 400 mg PO DAILY nitroglycerin 0.4 MG tablet, sublingual 0.4 mg Sublingual PRN PRN metoprolol succinate [Toprol XL] 100 MG tablet extended release 24 hr 150 mg PO QAM Patient Comments: NO LONGER TAKING PER PT 02/26/23 lisinopril 5 MG tablet 5 mg PO QAM amlodipine 10 MG tablet 10 mg PO QAM rosuvastatin [Crestor] 40 MG tablet 40 mg PO DAILY dapagliflozin propanediol [Farxiga] 5 mg tablet 10 mg PO DAILY Patient Comments: TAKE ONE TABLET BY MOUTH EVERY DAY aspirin 81 mg Tablet,Chewable 81 mg PO DAILY trazodone 50 mg Tablet 50 mg PO QHS Discharge Instructions Additional Instructions: FINDINGS: Showed mild esophagus vein dilation was seen. This is why we did the procedure. This is called esophageal varices and you have the mildest form of this condition. This is from your liver disease. You are to follow-up with your PCP to discuss further. Separately, some small benign polyps and some mild inflammation/irritation was seen in your small intestine but no ulcers. If you do not have symptoms there is probably nothing you need to do about this. Activity:: Activity as Tolerated Diet:: As Tolerated DS: Diagnosis Discharge Diagnosis (1) Cirrhosis: Status: Chronic
--- NOTE | 2024-06-08 08:07 | W.PM.ENDDOP ---
Date of service: 06/08/24 Time of Service: 08:08 Endoscopy Report PROCEDURE DESCRIPTION: PROCEDURES PERFORMED: 1. EGD with biopsies 2. Cold forceps polypectomy PREOPERATIVE DIAGNOSIS: Cirrhosis POSTOPERATIVE DIAGNOSIS: Grade 1 esophageal varices, mild duodenitis, gastric polyps SURGEON: Laura Zhang MD INDICATION FOR PROCEDURE: 68-year-old man with cirrhosis who was referred for screening for esophageal varices. FINDINGS: D2/D3 = no ulcers but appears mildly inflamed. I took cold forceps biopsies. D1/bulb = normal - no ulcers or inflammation Pylorus = normal Antrum = normal appearance, no ulcers, cold forceps biopsies were taken to rule out H. pylori routinely Body = a few scattered benign?appearing small polyps Fundus = normal, a small benign?appearing 2-3 mm polyp was removed with cold forceps technique to confirm benign histology. There are perhaps 7?10 of these. Cardia = normal Hiatus = no hiatal hernia Distal esophagus = no inflammation, no esophagitis, no Hall's, no stricture. There are no distal varices visible. Mid esophagus = there are mild grade 1 varices present Proximal esophagus/hypopharynx/vocal cords = there are mild grade [address] the way to the cricopharyngeus. SURVEILLANCE-INTERVAL/FOLLOW-UP: Follow-up with PCP and/your GI doctors. Specimens: Yes EBL: Minimal COMPLICATIONS: None Procedure in detail: The patient gave written consent and was in agreement with the indications, the potential risks as well as the benefits of the procedure. The patient was taken to the endoscopy suite and laid on their left side. Anesthesia was given which was tolerated well. We performed a timeout and we are in agreement I started the procedure. A well-lubricated endoscope was gently and carefully advanced down the esophagus, into the stomach the scope was and through the pylorus into the duodenum. The scope was then slowly withdrawn with the above-noted findings/interventions. The patient tolerated the procedure well.
--- NOTE | 2024-06-08 08:19 | W.ANESPOSTOP ---
Postoperative Evaluation Date, Time and Location Date Performed: 06/08/24 Time Performed: 07:58 Patient Location: Day Surgery Unit Vital Signs Most Recent Imported Vital Signs: Most Recent Vital Signs Temp Pulse Resp BP Pulse Ox 36.5 C 72 18 124/61 96 06/08/24 07:57 06/08/24 07:57 06/08/24 07:57 06/08/24 07:57 06/08/24 07:57 Pain Score Most Recent Pain Score: Most Recent Pain Score Pain Level 0 06/08/24 07:57 Assessment Mental Status: Awake (Alert & Oriented to Patient Baseline) Airway and Respiratory Function: Patent airway with normal (patient baseline) respiratory exam Cardiovascular Function: Hemodynamically Stable Hydration Status: Adequately Hydrated Nausea & Vomiting: No Nausea or Vomiting Pain: Pt. Denies Any Pain Peripheral Nerve Block: Patient did not receive a nerve block
[2024-06-08 08:22] VITALS: BP 143/65; PULSE 73; RESP 18; TEMP 36.6; O2SAT 97
== END 2024-06-08 06:09 | disposition home or self-care (01) ==
PROVIDERS: PCP Nurse Practitioner Family; Visit Provider Student in an Organized Health Care Education/Training Program
PROC: 0DJ68ZZ Inspection of Stomach, Via Natural or Artificial Opening Endoscopic (ICD-10-PCS; CPT 43235; principal; 2024-06-08 07:30)
DX: K74.60 Unspecified cirrhosis of liver (principal); I10 Essential (primary) hypertension; E11.9 Type 2 diabetes mellitus without complications; K31.7 Polyp of stomach and duodenum; I85.00 Esophageal varices without bleeding; K31.9 Disease of stomach and duodenum, unspecified
CPT/HCPCS: 43239; 00123; 88305; J2704

== ENCOUNTER → 2024-06-22 10:18 | Outpatient (BNVA) | payer MEDICARE, BC, SELFPAY | PROVIDERS: PCP Nurse Practitioner Family; Referring Provider Nurse Practitioner Family; Visit Provider Student in an Organized Health Care Education/Training Program | DX: K57.92 Diverticulitis of intestine, part unspecified, without perforation or abscess without bleeding (principal) | CPT/HCPCS: 99214 ==

== ENCOUNTER 2024-08-13 12:46 | Outpatient (REF) | payer MEDICARE, BC, SELFPAY ==
[2024-08-13 20:30] LABS: Abs Immature Grans 0.05 10^3/uL (0.0-0.06); Absolute Basophil Count 0.07 10^3/uL (0.0-0.2); Absolute Monocyte Count 1.09 10^3/uL (0.1-0.8); Basophils % 0.5 %; Eosinophils % 0.4 %; HCT 47.7 % (40.0-50.0); HGB 15.6 g/dL (13.5-17.5); Immature Grans % 0.4 %; Lymphocytes % 17.8 %; MCH 28.5 pg (27.0-33.0); MCHC 32.7 % (32.0-36.0); MCV 87 fL (80-95); MPV 10.8 fL (8.0-11.0); Monocytes % 7.8 %; Neutrophils % 73.1 %; Platelet Count 293 10^3/uL (130-400); RBC 5.48 10^6/uL (4.36-5.78); RDW 13.1 % (11.8-14.1); RDW-SD 41.5 fL; WBC 13.96 10^3/uL (4.4-10.8)
[2024-08-13 20:33] LABS: Absolute Eosinophil Count 0.06 10^3/uL (0.0-0.7); Absolute Lymphocyte Count 2.48 10^3/uL (1.2-3.4)
[2024-08-13 20:45] LABS: Anion Gap 6.4 mmol/L (3-11); BUN 11 mg/dL (7-18); CO2 30.6 mmol/L (21.0-32.0); CREATININE 0.9 mg/dL (0.70-1.30); Calcium 9.7 mg/dL (8.5-10.1); Chloride 101 mmol/L (98-107); Estimated GFR 92.45 (mL/min/1.73m2); Glucose 143 mg/dL (74-106); Potassium 4.3 mmol/L (3.5-5.1); Sodium 138 mmol/L (136-145)
== END 2024-08-13 12:47 | disposition home or self-care (01) ==
LOC: LBN 12:46
PROVIDERS: PCP Nurse Practitioner Family; Visit Provider Physician Assistant
DX: K57.92 Diverticulitis of intestine, part unspecified, without perforation or abscess without bleeding (principal)
CPT/HCPCS: 80048; 85025

== ENCOUNTER 2024-08-15 14:01 | Outpatient (CLI) | payer MEDICARE, BC, SELFPAY ==
--- NOTE | 2024-08-15 08:26 | DI.CT_ITS ---
Exam(s) CT ABDOMEN PELVIS W EXAM: CT ABDOMEN PELVIS W CLINICAL HISTORY: ? complication of diverticulitis, failed treatment, K57.92 TECHNIQUE: Imaging Protocol: Axial computed tomography images with coronal and sagittal reformatted images were created and reviewed. CONTRAST MATERIAL: Intravenous: Omnipaque 350 Contrast volume:75 mL Oral: Yes COMPARISON: CT ABD PELVIS WITH CONTRAST from 07/22/[address] ABDOMEN PELVIS W from 05/06/2024 FINDINGS: ABDOMEN: Lung Bases: 3 vessel coronary artery calcification is present. Liver: Normal density. No measurable mass. Portal, Superior Mesenteric, and Splenic Veins: Unremarkable. Gallbladder and Biliary Tract: Status post cholecystectomy. No biliary ductal dilatation. Pancreas: Normal density, no abnormal calcifications or inflammatory process. Spleen: Normal. Adrenals: There is stable nodularity of the left adrenal gland likely reflecting adenoma. No follow- up is recommended. The right adrenal gland is unremarkable. Kidneys: Normal size, contour and axis. No radiodense stones or obstructive uropathy. There is a simp le cyst in the right kidney. No follow-up is recommended. Abdominal Aorta: Abdominal portion non-dilated. Atherosclerotic calcification is present. Bowel: There is thickening of the wall of the mid sigmoid colon with mild pericolonic inflammatory ch anges present. It appears slightly improved compared to the prior examination. No focal fluid colle ction is seen to suggest an abscess. The findings are suggestive of acute diverticulitis. There is no evidence of bowel obstruction. There is no evidence of appendicitis. Peritoneal Cavity: No ascites, collection or mesenteric inflammatory response. No free air. Lymph Nodes: Within normal limits. Bones: Within normal limits for the patient's age. The patient has a left total hip arthroplasty. Soft Tissues: There is a fat containing right inguinal hernia. PELVIS: Bladder: Symmetric distention, no gross wall thickening. Reproductive Organs: Unremarkable as visualized. Lymph Nodes: Within normal limits. Bones: Within normal limits for the patient's age. IMPRESSION: 1. Persistent thickening of the wall of the sigmoid colon with associated diverticula and stranding i n the surrounding soft tissues which may represent an acute diverticulitis. No abscess or free air. Possibility of underlying neoplasm cannot be excluded. Follow-up as clinically appropriate. This m ay include barium enema or colonoscopy. 2. Stable incidental findings in the abdomen and pelvis as described above. RADIATION DOSE DELIVERED: 770.71mGy.cm Total DLP DATA REPOSITORY: All CT scans at this facility are submitted to the National Radiology Data Registry (NRDR) Dose Index Registry (DIR) with the [employer] (A[employer]). RADIATION OPTIMIZATION: All CT scans at this facility use at least one of these dose optimization te chniques: automated exposure control; mA and/or kV adjustment per patient size (includes targeted exa ms where dose is matched to clinical indication); or iterative reconstruction.
[2024-08-15] MEDS: Barium Sulfate 2% W/V-Creamy Vanilla Smoothie 450 ML BTL PO (08:55)
[2024-08-15] MEDS: Barium Sulfate 2% W/V-Berry Smoothie 450 ML BTL PO (08:55)
[2024-08-15] MEDS: Omnipaque 350 MG/ML 100 ML BTL IJ (11:14)
[2024-08-15] MEDS: Normal Saline - Diluent 50 ML VIAL IJ (11:15)
== END 2024-08-15 14:21 ==
LOC: DI 14:03
PROVIDERS: PCP Nurse Practitioner Family; Visit Provider Physician Assistant
DX: K57.92 Diverticulitis of intestine, part unspecified, without perforation or abscess without bleeding (principal)
CPT/HCPCS: 74177; J3490

== ENCOUNTER 2024-08-17 02:48 | Outpatient (CLI) | payer MEDICARE, BC, SELFPAY ==
--- NOTE | 2024-08-17 | DI.US_ITS ---
Exam(s) US ABDOMEN LIMITED EXAM: US ABDOMEN LIMITED CLINICAL HISTORY: K74.69 Other cirrhosis of liver,? HCC TECHNIQUE: Ultrasound abdomen performed using standard protocol. COMPARISON: US US ABDOMEN LIMITED from 03/04/[address] ABDOMEN PELVIS W from 08/15/2024 FINDINGS: PANCREAS: Normal where visualized. LIVER: There is diffuse increased echogenicity of the liver consistent with fatty infiltration. Hepa topetal flow in the Portal Vein. The liver measures in 19.7 cm length. No evidence of a hepatic mass. GALLBLADDER:Status post cholecystectomy. BILIARY SYSTEM: Common bile duct measures < 7 mm. No intrahepatic biliary ductal dilation. RIGHT KIDNEY: Kidney is normal in size. No evidence of renal calculi. No evidence of hydronephrosis. There is a 2.5 x 2.9 x 2.8 cm simple cyst in the right kidney. No follow-up is recommended. ASCITES: None seen. IMPRESSION: Hepatomegaly and hepatic steatosis. No sonographic evidence of a hepatic mass. DATA REPOSITORY:
== END 2024-08-17 03:08 ==
LOC: DI 02:48
PROVIDERS: PCP Nurse Practitioner Family; Visit Provider Student in an Organized Health Care Education/Training Program
DX: K76.89 Other specified diseases of liver (principal)
CPT/HCPCS: 76705

== ENCOUNTER 2024-08-22 01:22 | Outpatient (CLI) | payer MEDICARE, BC, SELFPAY ==
[2024-08-22 14:52] LABS: Anion Gap 8.4 mmol/L (3-11); BUN 14 mg/dL (7-18); CO2 28.6 mmol/L (21.0-32.0); CREATININE 1.1 mg/dL (0.70-1.30); Calcium 9.1 mg/dL (8.5-10.1); Chloride 100 mmol/L (98-107); Estimated GFR 72.67 (mL/min/1.73m2); Glucose 89 mg/dL (74-106); Sodium 137 mmol/L (136-145)
[2024-08-22 14:57] LABS: COMMENT (LAB VIEW ONLY) 39.04 mg/dL; Microalb ug/mg Crea 17.9 ug/mg Cr
[2024-08-22 15:55] LABS: Hemoglobin A1C 7.3 % (<5.7)
[2024-08-24 14:49] LABS: Fructosamine 258 mcmol/L (200 - 285)
== END 2024-08-22 01:23 | disposition home or self-care (01) ==
LOC: LBO 01:22
PROVIDERS: PCP Nurse Practitioner Family; Visit Provider Internal Medicine Endocrinology, Diabetes & Metabolism
DX: E11.65 Type 2 diabetes mellitus with hyperglycemia (principal)
CPT/HCPCS: 36415; 80048; 82043; 82570; 82985; 83036

== ENCOUNTER 2024-09-17 18:11 | Inpatient (IN) | payer MEDICARE, BC, SELFPAY ==
[2024-09-17 18:13] VITALS: BP 130/66; PULSE 80; RESP 16; TEMP 36; O2SAT 97
--- NOTE | 2024-09-17 18:30 | DI.CT_ITS ---
Exam(s) CT ABDOMEN PELVIS W EXAM: CT ABDOMEN PELVIS W CLINICAL HISTORY: LLQ pain, recent diverticulitis. TECHNIQUE: Imaging Protocol: Axial computed tomography images with coronal and sagittal reformatted images were created and reviewed CONTRAST MATERIAL: Intravenous: Omnipaque 350 Contrast volume:100 ml Oral: no COMPARISON: CT CT ABDOMEN PELVIS W from 08/15/2024 FINDINGS: ABDOMEN and PELVIS: Lung Bases: No acute findings. Liver: Normal density. No suspicious mass. Gallbladder and biliary tract: Cholecystectomy. No biliary dilation. Pancreas: Normal density. No abnormal calcifications or inflammatory process. No evidence of mass. Spleen: Normal. Kidneys: Normal size, contour and axis. No radiodense stones. No obstructive uropathy. Stable simpl e renal cyst. No suspicious masses seen. Adrenal glands: No masses seen. Vasculature: Abdominal aorta non-dilated. Soft tissues: Unremarkable. Bladder: No gross wall thickening. No calculi.No focal mass. Bowel: No obstruction. Multiple diverticula as well seen thickening of the sigmoid colon. There is significant surrounding inflammation consistent with diverticulitis. There is no evidence of perfor ation or abscess. The area of inflammation contacts the bladder however there is no of the bladder a ir to indicate fistula. Appendix normal. Peritoneal cavity: No ascites. No focal collection. No mesenteric inflammatory response. No free air . Bones: Left hip prosthesis. Reproductive organs: Unremarkable. Lymph nodes: No pathologically enlarged lymph nodes. IMPRESSION:: Sigmoid diverticulitis. No evidence of abscess or perforation. No evidence of fistula formation with the bladder. RADIATION DOSE DELIVERED: Total DLP DATA REPOSITORY: All CT scans at this facility are submitted to the National Radiology Data Registry (NRDR) Dose Index Registry (DIR) with the [employer] (ACR). RADIATION OPTIMIZATION: All CT scans at this facility use at least one of these dose optimization te chniques: automated exposure control; mA and/or kV adjustment per patient size (includes targeted exa ms where dose is matched to clinical indication); or iterative reconstruction.
--- NOTE | 2024-09-17 18:40 | W.ED.GENAD ---
Discharge Plan Disposition Patient Disposition: Admit to [facility] Condition: Stable Discharge Details Clinical Impression: Diverticulitis, Failure of outpatient treatment Admit Date/Time: 09/17/24 22:48 Admit Provider: Abner Ibrahim Attending Provider: Abner Ibrahim Primary Care Provider: David Ruiz ED Provider: Avril Monge Discharge Data Discharge Date/Time-TO BE ENTERED AT DEPARTURE: 09/17/24 23:12 HPI General Date/Time Provider Initiated Documentation: 09/17/24 18:19. HPI Narrative: The patient is a 68-year-old male with a history of recurrent diverticulitis who comes to the emergency department for left lower side abdominal pain. The patient reports that he has been dealing with lower abdominal pain since April. Reports that he has been on 5 different courses of antibiotics and currently on a regimen for ciprofloxacin and Flagyl on his last day today. He reports that when he is on the antibiotic his abdomen feels fine however as soon as he finishes the antibiotic the pain starts up again. Reports that his belly has been bothering him all day. Reports it is on the left side of his abdomen which feels identical to prior diverticulitis episode. Reports that with diverticulitis he gets constipated but was able to have a good bowel movement today. Admits to feeling nauseous but denies vomiting. Admits to low-grade temperature of 99.8 degrees. Denies any cough, chest pain or shortness of breath. Denies any dysuria or hematuria. Related Data Home Medications ?Medication ?Instructions ?Recorded ?Confirmed amlodipine 10 mg tablet 10 mg PO QAM 07/23/14 08/19/24 lisinopril 5 mg tablet 5 mg PO QAM 07/23/14 08/19/24 nitroglycerin 0.4 mg sublingual 0.4 mg sublingual PRN PRN 07/23/14 08/19/24 tablet trazodone 50 mg tablet 50 mg PO QHS 12/01/18 08/19/24 cholecalciferol (vitamin D3) 25 25 mcg PO DAILY 05/22/22 08/19/24 mcg (1,000 unit) capsule aspirin 81 mg chewable tablet 81 mg PO DAILY 02/26/23 08/19/24 insulin glargine U-300 conc 300 50 unit subcut DAILY 11/24/23 08/19/24 unit/mL (3 mL) subcutaneous pen (Toujeo Max U-300 SoloStar) cyclosporine 0.05 % eye drops in a 1 drp ophthalmic (eye) Q12H 05/02/24 08/19/24 dropperette (Restasis) insulin lispro 100 unit/mL 30 unit (0.3 mL) subcut TID #90 mL 05/02/24 08/19/24 subcutaneous pen (Humalog KwikPen (U-100) Insulin) magnesium oxide 400 mg PO DAILY #90 caps 06/08/24 08/19/24 ranolazine 500 mg tablet,extended 500 mg PO BID #180 tabs 06/13/24 08/19/24 release,12 hr rosuvastatin 40 mg tablet (Crestor) 40 mg PO DAILY #90 tabs 06/13/24 08/19/24 psyllium husk 3.4 gram/5.4 gram 1 tsp PO DAILY 06/22/24 08/19/24 oral powder (Metamucil) sennosides 8.6 mg tablet (senna) 8.6 mg PO DAILY PRN 06/22/24 08/19/24 dapagliflozin propanediol 10 mg mg PO DAILY 08/03/24 08/19/24 tablet (Farxiga) pen needle, diabetic 31 gauge x #1,200 ea 08/03/24 08/19/24 3/16 (BD Ultra-Fine Mini Pen Needle) pen needle, diabetic 32 gauge x #100 ea 08/03/24 08/19/24 1/4 (BD Ultra-Fine Micro Pen Needle) ciprofloxacin HCl 500 mg tablet 500 mg PO BID #20 tabs 08/18/24 08/18/24 (Cipro) metoprolol succinate 50 mg 150 mg (3 x 50 mg) PO DAILY #270 08/18/24 08/18/24 tablet,extended release 24 hr tabs metronidazole 500 mg tablet 500 mg PO TID #30 tabs 08/18/24 08/18/24 Previous Rx's ?Medication ?Instructions ?Recorded insulin lispro 100 unit/mL 30 unit (0.3 mL) subcut TID #90 mL 05/02/24 subcutaneous pen (Humalog KwikPen (U-100) Insulin) magnesium oxide 400 mg PO DAILY #90 caps 06/08/24 ranolazine 500 mg tablet,extended 500 mg PO BID #180 tabs 06/13/24 release,12 hr rosuvastatin 40 mg tablet (Crestor) 40 mg PO DAILY #90 tabs 06/13/24 ciprofloxacin HCl 500 mg tablet 500 mg PO BID #20 tabs 08/18/24 (Cipro) metoprolol succinate 50 mg 150 mg (3 x 50 mg) PO DAILY #270 08/18/24 tablet,extended release 24 hr tabs metronidazole 500 mg tablet 500 mg PO TID #30 tabs 08/18/24 Allergies Allergy/AdvReac Type Severity Reaction Status Date / Time isosorbide AdvReac Other (See Verified 09/17/24 18:16 Comment) General Stated Complaint: Abd Prob ANDREA: 3 Review of Systems Narrative: Review of systems are negative except as mentioned. Exam Const General: comfortable Orientation: alert, awake and oriented x3 Resp Effort & Inspection: normal respiratory effort Auscultation: clear to auscultation bilaterally Cardio Rate: regular rate Rhythm: regular rhythm Pulses: radial pulses present GI Palpation: soft, guarding in the LLQ, not rigid and tender in the LLQ Auscultation: normal bowel sounds Extrem Other: No CVA tenderness is noted to palpation bilaterally. Course Vital Signs Vital signs: Vital Signs Temperature 36.0 C L 09/17/24 18:13 Pulse 80 09/17/24 18:13 Respiratory Rate 16 09/17/24 18:13 Blood Pressure 130/66 09/17/24 18:13 Pulse Oximetry 97 09/17/24 18:13 Temperature 36.0 C L 09/17/24 18:13 Temperature Source Oral 09/17/24 18:13 Pulse 80 09/17/24 18:13 Respiratory Rate 16 09/17/24 18:13 Blood Pressure 130/66 09/17/24 18:13 Blood Pressure Position Sitting 09/17/24 18:13 Pulse Oximetry 97 09/17/24 18:13 Oxygen Delivery Method Room Air 09/17/24 18:13 Oxygen Flow Rate 0 09/17/24 18:13 Medical Decision Making The patient reports that his last imaging study done on an outpatient basis was a month ago. In spite of this because the patient has worsening symptoms now toward the tail end of his antibiotic regimen I told the patient of plan for repeat imaging study, blood work. Patient agreed to this plan. Blood work is back. He does have white blood cell count elevation however remains hemodynamically stable here. Chemistries are benign. Urine is negative for infectious process. CAT scan is done but awaiting interpretation per radiology. CAT scan is finally resulted and the patient continues to have changes concerning for diverticulitis fortunately there was no perforation and there is no abscess. Since this is the patient's fifth antibiotic outpatient treatment with persistent diverticulitis I told the patient that he may need to be switched to IV antibiotics. I will give him a dose now and told him of recommendation for hospitalization to which he agreed. Reports that this has happened in the past. Imaging Data Radiologic Study: Imaging: CT Scan (CT abdomen and pelvis) Radiologist's impression: V-rad: Findings consistent with acute sigmoid diverticulitis. Pericolonic free fluid in the sigmoid without a large defined fluid collection or significant gaseous perforation. Quality:SDOH Health Related Social Needs: No Data to Display PFSH All Active Problems (Updated 09/17/24 @ 22:43 by Avril Mogne DO) Failure of outpatient treatment (Acute) Diverticulitis (Chronic) Heart murmur (Acute) Muscle fasciculation (Acute) Acquired cystic kidney disease (Acute) Nonulcer dyspepsia (Acute) Cirrhosis (Chronic) Osteoarthritis of right hip (Acute) POCUS injection: 01/01/2024 Chronic diarrhea (Acute) Venous stasis dermatitis of left lower extremity (Acute) RLS (restless legs syndrome) (Acute) HLD (hyperlipidemia) (Acute) Nonsustained paroxysmal ventricular tachycardia (Acute) Fatty liver disease, nonalcoholic (Acute) Obesity (Chronic) Vitamin D deficiency (Acute) Depression with anxiety (Acute) Coronary artery disease (Chronic) Tubular adenoma of colon (Chronic 03/27/17) DEEPALI (obstructive sleep apnea) (Chronic) Diabetes mellitus type 2 in obese (Chronic) Atherosclerotic heart disease [place] coronary artery w/angina pectoris (Chronic) Essential hypertension (Chronic) Medical History Diverticulitis Adenomatous colon polyp NSTEMI (non-ST elevated myocardial infarction) 02/2020-pt. denies he had a NSTEMI, but states he had angina but no heart attack 2020 03 stents placed Elevated LFTs Vertigo Unstable angina Per pt. states this is not current, occurred over 15 years ago, follows up with hog counter last seen 11/25/22 Surgical History History of esophagogastroduodenoscopy (~05/2024) Status post debridement of bone spur left heel, Achilles tendon S/P right rotator cuff repair [facility] S/P cholecystectomy History of total left hip replacement (04/22/22) Status post carpal tunnel release of both wrists History of umbilical hernia repair Status post amputation of lesser toe of right foot Fifth toe was removed Excision, Distal Clavicle (05/11/15) DR BROWN/LEFT Coronary Stent 9 stents. Last placement on 02/11/16 Colonoscopy - [facility] (03/27/17) Family History Mother Dementia Father Heart disease Hyperlipidemia Sister Breast cancer Brother Depression Heart disease Maternal Grandfather Heart disease Paternal Grandfather Heart disease Brother Heart disease Paternal Grandmother No problems noted. Paternal Grandfather Heart disease Social History Smoking/Tobacco Use Status: Former Tobacco Use tobacco type: cigarettes Quit Date: 07/20/92 Pack-years: 40 Tobacco: How many years used: 20 Second Hand Exposure: No Smoking risk assessment performed?: Yes Alcohol Intake: never Drug use: Current Sobriety Substance use type: former substance user, marijuana and other Adopted: No Caregiver/Support person: No Household members: none Housing: apartment Number of Children: 0 number of grandchildren: 0 Education Level: high school Do you need help understanding health information?: Never current occupation: retired Sexually active: Yes Do you think of yourself as: straight/heterosexual Current gender identity: male What is your relationship status?: How often do you talk on the phone with friends or family?: three or more times per week How often do you get together with friends or relatives?: three or more times per week How often do you attend adventism or baptist services?: 1-3 times per year Do you belong to any clubs or organized social groups?: no Panel score (0-1 are the most socially isolated patients): 1 NHANES result reviewed/action taken: Yes What type of physical activity do you participate in: walking and bicycling Duration: 45-60 minutes/day Frequency: 3-4 times per week Mahi/Mormonism: Hoahaoism Special mahi needs: No Seatbelt use: always Helmet use: Yes Helmet use: always Drive intox or ride w/intox pole truck driver: No Firearms in home: No Do you feel safe at home: Yes Do you feel safe in your relationship?: Yes Victim of physical abuse: No Victim of emotional abuse: No Victim of sexual abuse: No Would you like helpful sources: No
[2024-09-17 18:56] LABS: Abs Immature Grans 0.04 10^3/uL (0.0-0.06); Absolute Basophil Count 0.06 10^3/uL (0.0-0.2); Absolute Lymphocyte Count 2.29 10^3/uL (1.2-3.4); Absolute Monocyte Count 0.94 10^3/uL (0.1-0.8); Basophils % 0.5 %; Eosinophils % 0.8 %; HCT 46.2 % (40.0-50.0); HGB 15.4 g/dL (13.5-17.5); Immature Grans % 0.3 %; MCH 28.4 pg (27.0-33.0); MCHC 33.3 % (32.0-36.0); MCV 85 fL (80-95); MPV 9.5 fL (8.0-11.0); Monocytes % 7.8 %; Neutrophils % 71.6 %; Platelet Count 278 10^3/uL (130-400); RBC 5.42 10^6/uL (4.36-5.78); RDW 13.2 % (11.8-14.1); RDW-SD 40.8 fL; WBC 12.05 10^3/uL (4.4-10.8)
[2024-09-17 18:59] LABS: Absolute Neutrophil Count 8.63 10^3/uL (1.2-6.7)
[2024-09-17 19:12] LABS: ALT 43 U/L (16-63); AST 20 U/L (15-37); Albumin 3.7 g/dL (3.4-5.0); Alkaline Phosphatase 89 U/L (46-116); Anion Gap 11.6 mmol/L (3-11); BUN 11 mg/dL (7-18); Bilirubin, Total 0.87 mg/dL (0.2-1.0); CO2 27.4 mmol/L (21.0-32.0); CREATININE 1.1 mg/dL (0.70-1.30); Calcium 9.2 mg/dL (8.5-10.1); Chloride 98 mmol/L (98-107); Estimated GFR 72.67 (mL/min/1.73m2); Glucose 193 mg/dL (74-106); Potassium 3.8 mmol/L (3.5-5.1); Sodium 137 mmol/L (136-145); Total Protein 7.8 g/dL (6.4-8.2)
[2024-09-17] MEDS: Normal Saline - Diluent 50 ML VIAL IJ (19:54)
[2024-09-17] MEDS: Omnipaque 350 MG/ML 100 ML BTL IJ (19:55)
[2024-09-17 20:30] LABS: Bilirubin Negative (Negative); Blood Trace-intact (Negative); Clarity Clear (Clear); Glucose 500 mg/dL (Negative); Ketones Negative (Negative); Leukocyte Esterase Negative (Negative); Nitrite Negative (Negative); Urobilinogen 0.2 mg/dL (Up to 0.2); pH 5.5 (5-8)
[2024-09-17 20:32] VITALS: BP 143/82; PULSE 78; RESP 15; O2SAT 98
[2024-09-17 20:40] LABS: Bacteria Negative HPF (Negative); C & S Indicated? No; Casts Negative LPF (Negative); Crystals Negative HPF (Negative); Epithelial Cells Rare HPF (Negative); Mucus Negative (Negative); RBC 0-2 HPF (0-2); WBC 0-2 HPF (0-5)
[2024-09-17 21:39] VITALS: BP 138/68; PULSE 66; TEMP 36.9; O2SAT 96
--- NOTE | 2024-09-17 22:22 | DI.VRAD_ITS ---
PROCEDURE INFORMATION: Exam: CT Abdomen And Pelvis With Contrast Exam date and time: 09/17/2024 7:46 PM Age: 68 years old Clinical indication: Llq pain, recent diverticulitis TECHNIQUE: Imaging protocol: Computed tomography of the abdomen and pelvis with contrast. Contrast material: OMNIPAQUE 350; Contrast volume: 100 ml; Contrast route: INTRAVENOUS (IV); COMPARISON: CT ABDOMEN PELVIS W 08/15/2024 11:12 AM FINDINGS: Liver: Normal. No mass. Gallbladder and biliary ducts: The patient is status post cholecystectomy. Pancreas: Normal. No ductal dilation. Spleen: Normal. No splenomegaly. Adrenal glands: Normal. No mass. Kidneys and ureters: A 3.4 cm simple-appearing cyst noted in the right kidney. No hydronephrosis. Stomach and bowel: There is diffuse sigmoid diverticulosis. Significant bowel wall thickening and pericolonic inflammation is noted in the sigmoid colon surrounding an enlarged diverticulum, suggestive of acute diverticulitis. No bowel obstruction. Appendix: No evidence of appendicitis. Intraperitoneal space: No free air. A small amount of pericolonic free fluid noted in the sigmoid region. Vasculature: No abdominal aortic aneurysm. Lymph nodes: No enlarged lymph nodes. Urinary bladder: Unremarkable as visualized. Reproductive: Unremarkable as visualized. Bones/joints: No acute fracture. A total left hip replacement noted. Soft tissues: Unremarkable. IMPRESSION: Findings consistent with acute sigmoid diverticulitis. Pericolonic free fluid in the sigmoid without a large defined fluid collection or significant gaseous perforation. Dictated and Authenticated by: Suzanne Palacio MD. Orderin Saleem Mackenzie MD
[2024-09-17 22:49] VITALS: BP 170/73; PULSE 67; RESP 18; O2SAT 94
--- NOTE | 2024-09-17 22:49 | W.PM.HP.N ---
Date of service: 09/17/24 Time of Service: 22:49 Assessment and Plan Assessment and plan (1) Diverticulitis: Status: Chronic Assessment and plan: -patient is being admitted due to failed outpatient therapy for diverticulitis, initially diagnosed a the end of April 2024 -most recently patient was on PO cipro and flagyl and again began to experience recurrence of abdominal pain within a day or so after completing antibiotics -patient reportedly has appoint with GI specialist, as this is not the first time PO abx failure and hospitalization has needed -patient started on zosyn, will continue (2) Coronary artery disease: Status: Chronic Assessment and plan: -continue home lopressor, statin, asa (3) Essential hypertension: Status: Chronic Assessment and plan: -continue home amlodipine (4) HLD (hyperlipidemia): Status: Acute Assessment and plan: -continue home statin (5) Diabetes mellitus type 2 in obese: Status: Chronic Assessment and plan: -continue home glargine 50U daily -SSI, CCD History of Present Illness History of Present Illness Chief Complaint: abdominal pain Narrative: 68yo male with PMH HTN, HLD, IDDM, and diverticulitis who presents to the ED with complaints of abdominal pain. Patient states that he has been dealing with the same episode of diverticulitis since the end of April 2024. He has been on multiple rounds of PO antibiotics which initially help the episodes, but the pain returns towards the end of the antibiotics of shortly after finishing them. Most recently he was on cipro and flagyl which again initially helped, but his abdominal pain returned today prompting him to come to the ED. He also complains of ome nausea, but denies any fevers, chills, ligheadedness, dizziness, vomiting, diarrhea or constipation. In the ED the patient was noted to have normal vital signs, normal physical exam, and normal CBC and CMP with the exception of a WBC of 12. The patient also had a CT abdo/pelvis which showed acute diverticulitis without signs of perforation. Given this ongoing radiologic finding, ED physician started the patient on zosyn and paged hospitalist for admission of a patient for failed outpatient therapy of diverticulitis. Review of Systems All systems reviewed & are unremarkable except as noted in HPI and below PFSH All Active Problems (Updated 09/17/24 @ 22:43 by Avril Saleem, DO) Failure of outpatient treatment (Acute) Diverticulitis (Chronic) Heart murmur (Acute) Muscle fasciculation (Acute) Acquired cystic kidney disease (Acute) Nonulcer dyspepsia (Acute) Cirrhosis (Chronic) Osteoarthritis of right hip (Acute) POCUS injection: 01/01/2024 Chronic diarrhea (Acute) Venous stasis dermatitis of left lower extremity (Acute) RLS (restless legs syndrome) (Acute) HLD (hyperlipidemia) (Acute) Nonsustained paroxysmal ventricular tachycardia (Acute) Fatty liver disease, nonalcoholic (Acute) Obesity (Chronic) Vitamin D deficiency (Acute) Depression with anxiety (Acute) Coronary artery disease (Chronic) Tubular adenoma of colon (Chronic 03/27/17) DEEPALI (obstructive sleep apnea) (Chronic) Diabetes mellitus type 2 in obese (Chronic) Atherosclerotic heart disease [place] coronary artery w/angina pectoris (Chronic) Essential hypertension (Chronic) Medical History Diverticulitis Adenomatous colon polyp NSTEMI (non-ST elevated myocardial infarction) 02/2020-pt. denies he had a NSTEMI, but states he had angina but no heart attack 2019 9 stents placed Elevated LFTs Vertigo Unstable angina Per pt. states this is not current, occurred over 15 years ago, follows up with construction pit worker last seen 11/25/22 Surgical History History of esophagogastroduodenoscopy (~05/2024) Status post debridement of bone spur left heel, Achilles tendon S/P right rotator cuff repair [facility] S/P cholecystectomy History of total left hip replacement (04/22/22) Status post carpal tunnel release of both wrists History of umbilical hernia repair Status post amputation of lesser toe of right foot Fifth toe was removed Excision, Distal Clavicle (05/11/15) DR BROWN/LEFT Coronary Stent 9 stents. Last placement on 02/11/16 Colonoscopy - [facility] [place] (03/27/17) Family History Mother Dementia Father Heart disease Hyperlipidemia Sister Breast cancer Brother Depression Heart disease Maternal Grandfather Heart disease Paternal Grandfather Heart disease Brother Heart disease Paternal Grandmother No problems noted. Paternal Grandfather Heart disease Social History Smoking/Tobacco Use Status: Former Tobacco Use tobacco type: cigarettes Quit Date: 07/20/92 Pack-years: 40 Tobacco: How many years used: 20 Second Hand Exposure: No Smoking risk assessment performed?: Yes Alcohol Intake: never Drug use: Current Sobriety Substance use type: former substance user, marijuana and other Adopted: No Caregiver/Support person: No Household members: none Housing: apartment Number of Children: 0 number of grandchildren: 0 Education Level: high school Do you need help understanding health information?: Never current occupation: retired Sexually active: Yes Do you think of yourself as: straight/heterosexual Current gender identity: male What is your relationship status?: How often do you talk on the phone with friends or family?: three or more times per week How often do you get together with friends or relatives?: three or more times per week How often do you attend quaker or uatsdin services?: 1-3 times per year Do you belong to any clubs or organized social groups?: no Panel score (0-1 are the most socially isolated patients): 1 NHANES result reviewed/action taken: Yes What type of physical activity do you participate in: walking and bicycling Duration: 45-60 minutes/day Frequency: 3-4 times per week Mahi/Mandaeism: Yazdanism Special mahi needs: No Seatbelt use: always Helmet use: Yes Helmet use: always Drive intox or ride w/intox cab driver: No Firearms in home: No Do you feel safe at home: Yes Do you feel safe in your relationship?: Yes Victim of physical abuse: No Victim of emotional abuse: No Victim of sexual abuse: No Would you like helpful sources: No Meds Allergies and Home Medications Allergies Allergy/AdvReac Type Severity Reaction Status Date / Time isosorbide AdvReac Other (See Verified 09/17/24 18:16 Comment) Home Medications ?Medication ?Instructions ?Recorded ?Confirmed ?Type amlodipine 10 mg tablet 10 mg PO QAM 07/23/14 09/17/24 History lisinopril 5 mg tablet 5 mg PO QAM 07/23/14 09/17/24 History nitroglycerin 0.4 mg sublingual 0.4 mg sublingual PRN PRN 07/23/14 09/17/24 History tablet trazodone 50 mg tablet 50 mg PO QHS 12/01/18 09/17/24 History cholecalciferol (vitamin D3) 25 25 mcg PO DAILY 05/22/22 09/17/24 History mcg (1,000 unit) capsule aspirin 81 mg chewable tablet 81 mg PO DAILY 02/26/23 09/17/24 History insulin glargine U-300 conc 300 44 unit subcut DAILY 11/24/23 09/17/24 History unit/mL (3 mL) subcutaneous pen (Toujeo Max U-300 SoloStar) cyclosporine 0.05 % eye drops in a 1 drp ophthalmic (eye) Q12H 05/02/24 09/17/24 History dropperette (Restasis) insulin lispro 100 unit/mL 30 unit (0.3 mL) subcut TID #90 mL 05/02/24 09/17/24 Rx subcutaneous pen (Humalog KwikPen (U-100) Insulin) magnesium oxide 400 mg PO DAILY #90 caps 06/08/24 09/17/24 Rx ranolazine 500 mg tablet,extended 500 mg PO BID #180 tabs 06/13/24 09/17/24 Rx release,12 hr rosuvastatin 40 mg tablet (Crestor) 40 mg PO DAILY #90 tabs 06/13/24 09/17/24 Rx psyllium husk 3.4 gram/5.4 gram 1 tsp PO DAILY 06/22/24 09/17/24 History oral powder (Metamucil) sennosides 8.6 mg tablet (senna) 8.6 mg PO DAILY PRN 06/22/24 09/17/24 History dapagliflozin propanediol 10 mg 10 mg PO DAILY 08/03/24 09/17/24 History tablet (Farxiga) pen needle, diabetic 31 gauge x #1,200 ea 08/03/24 09/18/24 History 3/16 (BD Ultra-Fine Mini Pen Needle) pen needle, diabetic 32 gauge x #100 ea 08/03/24 09/18/24 History 1/4 (BD Ultra-Fine Micro Pen Needle) ciprofloxacin HCl 500 mg tablet 500 mg PO BID #20 tabs 08/18/24 09/17/24 Rx (Cipro) metoprolol succinate 50 mg 150 mg (3 x 50 mg) PO DAILY #270 08/18/24 09/17/24 Rx tablet,extended release 24 hr tabs metronidazole 500 mg tablet 500 mg PO TID #30 tabs 08/18/24 09/17/24 Rx Exam Narrative Exam Narrative: Well-appearing older gentleman laying in bed in no acute distress, ANO x 4, heart regular rhythm, lungs clear to auscultation bilaterally, abdomen soft, nontender, nondistended Results Labs 09/18/24 05:55 09/18/24 06:13 Labs: Laboratory Results - last 24 hr 09/17/24 09/17/24 18:48 20:25 WBC 12.05 H RBC 5.42 Hgb 15.4 Hct 46.2 MCV 85 MCH 28.4 MCHC 33.3 RDW 13.2 Plt Count 278 MPV 9.5 Immature Gran % 0.3 Neutrophils % 71.6 Lymphocytes % 19.0 Monocytes % 7.8 Eosinophils % 0.8 Basophils % 0.5 Nucleated RBC % 0.0 Absolute Neutrophils 8.63 H Absolute Lymphocytes 2.29 Absolute Monocytes 0.94 H Absolute Eosinophils 0.10 Absolute Basophils 0.06 Sodium 137 Potassium 3.8 Chloride 98 Carbon Dioxide 27.4 Anion Gap 11.6 H BUN 11 Creatinine 1.1 Est GFR (CKD-EPI 2020) 72.67 Glucose 193 H Calcium 9.2 Total Bilirubin 0.87 AST 20 ALT 43 Alkaline Phosphatase 89 Total Protein 7.8 Albumin 3.7 Urine Color Yellow Urine Clarity Clear Urine pH 5.5 Ur Specific [place] 1.010 Urine Protein Negative Urine Ketones Negative Urine Blood Trace-intact H Urine Nitrite Negative Urine Bilirubin Negative Urine Urobilinogen 0.2 Ur Leukocyte Esterase Negative Urine RBC 0-2 Urine WBC 0-2 Ur Epithelial Cells Rare Urine Crystals Negative Urine Bacteria Negative Urine Casts Negative Urine Mucus Negative Ur Culture Indicated? No Urine Glucose 500 H Last Vital Signs Temp 98.5 F 09/17/24 21:39 Pulse 66 09/17/24 21:39 Resp 15 09/17/24 20:32 BP 138/68 09/17/24 21:39 Pulse Ox 96 09/17/24 21:39 Time Spent Time spent with Patient: >75 minutes Time was spent: preparing to see the patient(eg.review tests), obtaining and/or reviewing separately otained hiistory, ordering medications,tests, procedures, referring, communicating with other health inpatient care manager rn, indepentently interpreting results, counseling the patient and care coordination
[2024-09-17] MEDS: Ondansetron 4 MG/2 ML VIAL IVP (22:54)
[2024-09-18] VITALS (7 sets, daily range): BP systolic 104–148; BP diastolic 55–68; PULSE 60–66; RESP 14–18; TEMP 36.8; O2SAT 95–97
[2024-09-18] MEDS: traZODone 50 MG TAB PO ×2 (00:36→20:10)
[2024-09-18] MEDS: Acetaminophen 325 MG TAB PO (05:58)
[2024-09-18 06:07] LABS: HCT 44.5 % (40.0-50.0); MCH 28.8 pg (27.0-33.0); MCHC 33.7 % (32.0-36.0); MCV 85 fL (80-95); MPV 9.5 fL (8.0-11.0); Platelet Count 261 10^3/uL (130-400); RBC 5.21 10^6/uL (4.36-5.78); RDW 13.2 % (11.8-14.1); RDW-SD 41.2 fL; WBC 10.79 10^3/uL (4.4-10.8)
[2024-09-18 06:36] LABS: BUN 11 mg/dL (7-18); CREATININE 0.9 mg/dL (0.70-1.30); Chloride 100 mmol/L (98-107); Estimated GFR 92.45 (mL/min/1.73m2); Glucose 153 mg/dL (74-106); Potassium 3.9 mmol/L (3.5-5.1); Sodium 137 mmol/L (136-145)
[2024-09-18] MEDS: Magnesium Oxide 400 MG TAB PO (08:14)
[2024-09-18] MEDS: Metoprolol CR 50 MG TABCR 150 MG PO (08:15)
[2024-09-18] MEDS: amLODIPine 10 MG TAB PO (08:17)
[2024-09-18] MEDS: Lisinopril 5 MG TAB PO (08:17)
[2024-09-18] MEDS: Ranolazine 500 MG TABCR PO ×2 (08:17→20:09)
[2024-09-18] MEDS: Aspirin 81 MG CHEW PO (08:17)
[2024-09-18] MEDS: Enoxaparin 40 MG/0.4 ML SYR SC (08:19)
--- NOTE | 2024-09-18 08:45 | W.PC.ACHO ---
Registration Status: Primary Language: Preferred Language: ED Information & Data Chief Complaint Abd Prob 09/17/24 18:43 Triage Note pt has a history of 09/17/24 18:13 diverticulitis, was treated on last day of ABT, but is having more pain since 0200 today Medical / Surgical History (Last Reviewed 08/19/24 @ 10:41 by LISSA Carpio) Diverticulitis Adenomatous colon polyp NSTEMI (non-ST elevated myocardial infarction) Elevated LFTs Vertigo Unstable angina (Last Reviewed 08/19/24 @ 10:41 by LISSA Carpio) History of esophagogastroduodenoscopy (~05/2024) Status post debridement of bone spur S/P right rotator cuff repair S/P cholecystectomy History of total left hip replacement (04/22/22) Status post carpal tunnel release of both wrists History of umbilical hernia repair Status post amputation of lesser toe of right foot Excision, Distal Clavicle (05/11/15) Coronary Stent Colonoscopy - MAC (03/27/17) Most Recent Vital Signs Temperature 36.8 C 09/18/24 07:25 Temperature Source Oral 09/18/24 07:25 Pulse 64 09/18/24 07:25 Pulse Rhythm Regular 09/18/24 04:06 Pulse Strength Normal 09/18/24 04:06 Respiratory Rate 14 09/18/24 07:25 Respiratory Effort Normal, Non-Labored 09/18/24 04:06 Respiratory Depth Normal 09/18/24 04:06 Respiratory Pattern Normal 09/18/24 04:06 Blood Pressure 148/59 H 09/18/24 07:25 Blood Pressure Mean 78 09/18/24 04:06 Blood Pressure Position Supine 09/18/24 04:06 Pulse Oximetry 95 09/18/24 07:25 Oxygen Delivery Method Room Air 09/18/24 07:25 Oxygen Flow Rate 0 09/18/24 07:25 Pain Level 3 09/18/24 07:25 Allergies isosorbide Adverse Reaction (Verified 09/17/24 18:16) Other (See Comment) Massive HeaDACHE Active Medications Generic Name Dose Route Start Last Admin Trade Name Freq PRN Reason Stop Dose Admin Acetaminophen 325 - 650 mg 09/17/24 23:20 09/18/24 05:58 Acetaminophen 325 Mg Tab PO 650 mg Q4H PRN PRN Administration Amlodipine Besylate 10 mg 09/18/24 08:30 09/18/24 08:17 Amlodipine 10 Mg Tab PO 10 mg QAM HILARIO Administration Aspirin 81 mg 09/18/24 08:30 09/18/24 08:17 Aspirin 81 Mg Chew PO 81 mg DAILY HILARIO Administration Enoxaparin Sodium 40 mg 09/18/24 08:30 09/18/24 08:19 Enoxaparin 40 Mg/0.4 Ml Syr SC 40 mg DAILY HILARIO Administration Piperacillin Sod/Tazobactam 50 mls @ 100 mls/hr 09/18/24 04:00 09/18/24 04:33 Sod 3.375 gm/ Dextrose/Water IVPB Infused Q6H HILARIO Infusion Insulin Aspart 0 units 09/18/24 08:00 09/18/24 07:18 Insulin Aspart 300 Units/3 Ml Pen SC Not Given 0800,1200,1700,2200 [facility] Protocol Iohexol 100 ml 09/17/24 20:00 09/17/24 19:55 Omnipaque 350 Mg/Ml 100 Ml Btl IJ 10/17/24 23:59 100 ml DIRECTED HILARIO Administration Lisinopril 5 mg 09/18/24 08:30 09/18/24 08:17 Lisinopril 5 Mg Tab PO 5 mg QAM HILARIO Administration Magnesium Oxide 400 mg 09/18/24 08:30 09/18/24 08:14 Magnesium Oxide 400 Mg Tab PO 400 mg DAILY HILARIO Administration Metoprolol Succinate 150 mg 09/18/24 08:30 09/18/24 08:15 Metoprolol Cr 50 Mg Tabcr PO 150 mg DAILY HILARIO Administration Ranolazine 500 mg 09/18/24 08:30 09/18/24 08:17 Ranolazine 500 Mg Tabcr PO 500 mg BID HILARIO Administration Sodium Chloride 50 ml 09/17/24 20:00 09/17/24 19:54 Normal Saline - Diluent 50 Ml Vial IJ 50 ml .FOR DI USE HILARIO Administration Trazodone HCl 50 mg 09/17/24 23:20 09/18/24 00:36 Trazodone 50 Mg Tab PO 50 mg HS HILARIO Administration IV IV Catheter Type [Left Peripheral IV Antecubital] IV Catheter Gauge [Left 18 Antecubital] Diet Orders Category Date Time Status Diabetes Consistent CHO/Heart Healthy [DIET] Nutrition 09/18/24 Breakfast Active Diagnostics 09/18/24 09/18/24 09/17/24 Range/Units 06:13 05:55 20:25 WBC 10.79 (4.4-10.8) 10^3/uL RBC 5.21 (4.36-5.78) 10^6/uL Hgb 15.0 (13.5-17.5) g/dL Hct 44.5 (40.0-50.0) % MCV 85 (80-95) fL MCH 28.8 (27.0-33.0) pg MCHC 33.7 (32.0-36.0) % RDW 13.2 (11.8-14.1) % Plt Count 261 (130-400) 10^3/uL MPV 9.5 (8.0-11.0) fL Immature Gran % % Neutrophils % % Lymphocytes % % Monocytes % % Eosinophils % % Basophils % % Nucleated RBC % (0.0-0.3) % Absolute Neutrophils (1.2-6.7) 10^3/uL Absolute Lymphocytes (1.2-3.4) 10^3/uL Absolute Monocytes (0.1-0.8) 10^3/uL Absolute Eosinophils (0.0-0.7) 10^3/uL Absolute Basophils (0.0-0.2) 10^3/uL Sodium 137 Cancelled (136-145) mmol/L Potassium 3.9 Cancelled (3.5-5.1) mmol/L Chloride 100 Cancelled (98-107) mmol/L Carbon Dioxide 29.0 Cancelled (21.0-32.0) mmol/L Anion Gap 8.0 Cancelled (3-11) mmol/L BUN 11 Cancelled (7-18) mg/dL Creatinine 0.9 Cancelled (0.70-1.30) mg/dL Est GFR (CKD-EPI 2020) 92.45 Cancelled (mL/min/1.73m2) Glucose 153 H Cancelled (74-106) mg/dL Calcium 9.0 Cancelled (8.5-10.1) mg/dL Magnesium 2.0 Cancelled Total Bilirubin (0.2-1.0) mg/dL AST (15-37) U/L ALT (16-63) U/L Alkaline Phosphatase (46-116) U/L Total Protein (6.4-8.2) g/dL Albumin (3.4-5.0) g/dL Urine Color Yellow (Yellow) Urine Clarity Clear (Clear) Urine pH 5.5 (5-8) Ur Specific [place] 1.010 (1.005-1.025) Urine Protein Negative (Neg-Trace) mg/dL Urine Ketones Negative (Negative) mg/dL Urine Blood Trace-intact H (Negative) Urine Nitrite Negative (Negative) Urine Bilirubin Negative (Negative) Urine Urobilinogen 0.2 (Up to 0.2) mg/dL Ur Leukocyte Esterase Negative (Negative) Urine RBC 0-2 (0-2) HPF Urine WBC 0-2 (0-5) HPF Ur Epithelial Cells Rare (Negative) HPF Urine Crystals Negative (Negative) HPF Urine Bacteria Negative (Negative) HPF Urine Casts Negative (Negative) LPF Urine Mucus Negative (Negative) Ur Culture Indicated? No Urine Glucose 500 H (Negative) mg/dL 09/17/24 Range/Units 18:48 WBC 12.05 H (4.4-10.8) 10^3/uL RBC 5.42 (4.36-5.78) 10^6/uL Hgb 15.4 (13.5-17.5) g/dL Hct 46.2 (40.0-50.0) % MCV 85 (80-95) fL MCH 28.4 (27.0-33.0) pg MCHC 33.3 (32.0-36.0) % RDW 13.2 (11.8-14.1) % Plt Count 278 (130-400) 10^3/uL MPV 9.5 (8.0-11.0) fL Immature Gran % 0.3 % Neutrophils % 71.6 % Lymphocytes % 19.0 % Monocytes % 7.8 % Eosinophils % 0.8 % Basophils % 0.5 % Nucleated RBC % 0.0 (0.0-0.3) % Absolute Neutrophils 8.63 H (1.2-6.7) 10^3/uL Absolute Lymphocytes 2.29 (1.2-3.4) 10^3/uL Absolute Monocytes 0.94 H (0.1-0.8) 10^3/uL Absolute Eosinophils 0.10 (0.0-0.7) 10^3/uL Absolute Basophils 0.06 (0.0-0.2) 10^3/uL Sodium 137 (136-145) mmol/L Potassium 3.8 (3.5-5.1) mmol/L Chloride 98 (98-107) mmol/L Carbon Dioxide 27.4 (21.0-32.0) mmol/L Anion Gap 11.6 H (3-11) mmol/L BUN 11 (7-18) mg/dL Creatinine 1.1 (0.70-1.30) mg/dL Est GFR (CKD-EPI 2020) 72.67 (mL/min/1.73m2) Glucose 193 H (74-106) mg/dL Calcium 9.2 (8.5-10.1) mg/dL Magnesium Total Bilirubin 0.87 (0.2-1.0) mg/dL AST 20 (15-37) U/L ALT 43 (16-63) U/L Alkaline Phosphatase 89 (46-116) U/L Total Protein 7.8 (6.4-8.2) g/dL Albumin 3.7 (3.4-5.0) g/dL Urine Color (Yellow) Urine Clarity (Clear) Urine pH (5-8) Ur Specific [place] (1.005-1.025) Urine Protein (Neg-Trace) mg/dL Urine Ketones (Negative) mg/dL Urine Blood (Negative) Urine Nitrite (Negative) Urine Bilirubin (Negative) Urine Urobilinogen (Up to 0.2) mg/dL Ur Leukocyte Esterase (Negative) Urine RBC (0-2) HPF Urine WBC (0-5) HPF Ur Epithelial Cells (Negative) HPF Urine Crystals (Negative) HPF Urine Bacteria (Negative) HPF Urine Casts (Negative) LPF Urine Mucus (Negative) Ur Culture Indicated? Urine Glucose (Negative) mg/dL [id number] Documentation Fingerstick Glucose Start: 09/17/24 23:20 Freq: AC & HS Status: Active Protocol: Activity Type Activity Date Activity User E-sign Co-sign Detail Recorded Client Recorded Date Recorded By Document 09/18/24 07:07 BKG DAEMON(3) [id number] 09/18/24 07:08 BKG DAEMON(4) Intake and Output - 24 Hour Total 09/17/24 18:11 thru 09/18/24 04:33 Intake Total 100 Balance 100 Weight 104.326 kg Intake: IV 100 Falls Risk Assessment History of Falls No History 09/17/24 18:53 Contributing Factors No Factors 09/17/24 18:53 Ambulatory Aids Independent 09/17/24 18:53 Tubes/Lines None 09/17/24 18:53 Gait Evaluation No gait disturbance 09/17/24 18:53 Cognition No cognitive impairment 09/17/24 18:53 Fall Total Score 0 09/17/24 18:53 Level of Risk Standard/Low Risk 09/17/24 18:53 Problems (Last Reviewed 08/19/24 @ 10:41 by LISSA Carpio) Diverticulitis (Chronic) HLD (hyperlipidemia) (Acute) Coronary artery disease (Chronic) Diabetes mellitus type 2 in obese (Chronic) Essential hypertension (Chronic) v v v v v v v v v Sending and/or Receiving Nurses: Please use comment section below to note any information pertinent to the patient hand-off not included above. Information / Comments: Report received from: Anastasia SOLIMAN (ED) @ [phone]
[2024-09-18] MEDS: Insulin Glargine 300 UNITS/3 ML PEN 50 UNITS SC (09:35)
[2024-09-18] MEDS: Normal Saline Flush 10 ML SYR IVP ×2 (09:35→20:10)
--- NOTE | 2024-09-18 09:51 | INITIAL_ITS ---
Date of service: 09/18/24 Time of Service: 09:52 Care Management Initial Assmt Initial Assessment Reason for Hospitalization: Diverticulitis Functional Status/Living Situation Patient Presentation: Raul was sitting up in bed visiting with his partner, Hannah, when CM met with him. He stated that he is feeling better today, and that per MD, he will likely remain inpatient for another 24-48 hours for IV antibiotics, which he is comfortable with. 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 He is independent at baseline, still drives, and l marie at the [facility]; his partner lives in the same building, and is very supportive. He also has sisters who he identifies as supports. He does not anticipate the need for services upon discharge. CM will continue to follow. Town of Residence: [facility] Resides with: Alone Significant Other/Family: Local (partner, Hannah lives down the [place] in the same building) Natural Supports: Sisters, Gregoria and Puja Employment Status: Retired Instrumental Activities of Daily Living (ADLs): Independent Medications Medication Management: No Issues/Barriers identified Advance Directives Advance Directives: Do you have an Advance Directive: Y 04/05/19 12:06 AD On File at [facility]: Y 04/06/21 03:34 Date Asked 09/17/24 09/17/24 18:19 AD Date Reviewed 09/17/24 09/17/24 18:19 COLST On File at [facility] No 02/26/23 17:19 COLST Date Scanned Code Status Resuscitation Status Full Code Insurance Coverage/Financial Issues Insurance: [facility]/BS supplement Care Team Visit Care Team Role Provider Type Rosemarie Lwoe NP NURSE PRACTITIONER David Fleming NP Primary Care Provider NURSE PRACTITIONER Avril Monge DO Emergency Provider [facility] STAFF PHYSICIAN Abner Ibrahim MD Admit Provider [facility] STAFF PHYSICIAN Attending Provider Discharge Potential Discharge Needs: PCP F/U Appt Anticipated Barriers to Discharge: None Identified Patient/Family Education Needs: Review discharge instructions, discuss Ask Me Three Transportation: Private vehicle Plan: Anticipate Raul will return home once medically cleared. He will drive himself home, as his car is here at the hospital. He will follow up with his PCP and discharge plan of care. CM will continue to follow. Social Determinants of Health Screening Social Determinants of Health last assessed: 09/18/24 Will the Patient Participate in the Screening?: Yes Do you worry about having a steady place to live?: no Problems where you live: no known problems In the past 12 months, have you had to go without electric, gas, oil or water in your home?: no Have you or anyone in your house had to go without enough food to eat?: no Has lack of transportation kept you from medical appointments or from doing things needed for daily living?: no Has anyone in your life made you feel unsafe or unsupported?: no How hard is it for you to pay for the very basics like food, housing, medical care, and heating? Would you say it is:: Not hard at all Do you want help finding or keeping work or a job?: I do not need or want help If for any reason you need help with day-to-day activities such as bathing, preparing meals, shopping, managing finances, etc., do you get the help you need?: I don?t need any help How often do you feel lonely or isolated from those around you?: Never Do you speak a language other than Sinhala at home?: Yes Does the patient want assistance with any of the above?: No Health Related Social Needs Health related social needs: education (Z55.6) PFSH All Active Problems (Updated 09/17/24 @ 22:43 by Avril Monge DO) Failure of outpatient treatment (Acute) Diverticulitis (Chronic) Heart murmur (Acute) Muscle fasciculation (Acute) Acquired cystic kidney disease (Acute) Nonulcer dyspepsia (Acute) Cirrhosis (Chronic) Osteoarthritis of right hip (Acute) POCUS injection: 01/01/2024 Chronic diarrhea (Acute) Venous stasis dermatitis of left lower extremity (Acute) RLS (restless legs syndrome) (Acute) HLD (hyperlipidemia) (Acute) Nonsustained paroxysmal ventricular tachycardia (Acute) Fatty liver disease, nonalcoholic (Acute) Obesity (Chronic) Vitamin D deficiency (Acute) Depression with anxiety (Acute) Coronary artery disease (Chronic) Tubular adenoma of colon (Chronic 03/27/17) DEEPALI (obstructive sleep apnea) (Chronic) Diabetes mellitus type 2 in obese (Chronic) Atherosclerotic heart disease [place] coronary artery w/angina pectoris (Chronic) Essential hypertension (Chronic) Medical History Diverticulitis Adenomatous colon polyp NSTEMI (non-ST elevated myocardial infarction) 02/2020-pt. denies he had a NSTEMI, but states he had angina but no heart attack 2019 9 stents placed Elevated LFTs Vertigo Unstable angina Per pt. states this is not current, occurred over 15 years ago, follows up with professor of geology last seen 11/25/22 Surgical History History of esophagogastroduodenoscopy (~05/2024) Status post debridement of bone spur left heel, Achilles tendon S/P right rotator cuff repair [facility] S/P cholecystectomy History of total left hip replacement (04/22/22) Status post carpal tunnel release of both wrists History of umbilical hernia repair Status post amputation of lesser toe of right foot Fifth toe was removed Excision, Distal Clavicle (05/11/15) DR BROWN/LEFT Coronary Stent 9 stents. Last placement on 02/11/16 Colonoscopy - MAC (03/27/17) Family History Mother Dementia Father Heart disease Hyperlipidemia Sister Breast cancer Brother Depression Heart disease Maternal Grandfather Heart disease Paternal Grandfather Heart disease Brother Heart disease Paternal Grandmother No problems noted. Paternal Grandfather Heart disease Social History Smoking/Tobacco Use Status: Former Tobacco Use tobacco type: cigarettes Quit Date: 07/20/92 Pack-years: 40 Tobacco: How many years used: 20 Second Hand Exposure: No Smoking risk assessment performed?: Yes Alcohol Intake: never Drug use: Current Sobriety Substance use type: former substance user, marijuana and other Adopted: No Caregiver/Support person: No Household members: none Housing: apartment Number of Children: 0 number of grandchildren: 0 Education Level: high school Do you need help understanding health information?: Never current occupation: retired Sexually active: Yes Do you think of yourself as: straight/heterosexual Current gender identity: male What is your relationship status?: How often do you talk on the phone with friends or family?: three or more times per week How often do you get together with friends or relatives?: three or more times per week How often do you attend sikhism or sabianist services?: 1-3 times per year Do you belong to any clubs or organized social groups?: no Panel score (0-1 are the most socially isolated patients): 1 NHANES result reviewed/action taken: Yes What type of physical activity do you participate in: walking and bicycling Duration: 45-60 minutes/day Frequency: 3-4 times per week Mahi/Zoroastrian: Religious Special mahi needs: No Seatbelt use: always Helmet use: Yes Helmet use: always Drive intox or ride w/intox helper/driver: No Firearms in home: No Do you feel safe at home: Yes Do you feel safe in your relationship?: Yes Victim of physical abuse: No Victim of emotional abuse: No Victim of sexual abuse: No Would you like helpful sources: No
[2024-09-18] MEDS: Insulin Aspart 300 UNITS/3 ML PEN SC (12:21)
--- NOTE | 2024-09-18 14:05 | W.PM.PROGNOT ---
Date of Service Date of service: 09/18/24 Time of Service: 14:05 Assessment and Plan Assessment and plan (1) Diverticulitis: Status: Chronic Assessment and plan: -patient is being admitted due to failed outpatient therapy for diverticulitis, initially diagnosed a the end of April 2024 -most recently patient was on PO cipro and flagyl and again began to experience recurrence of abdominal pain within a day or so after completing antibiotics -patient reportedly has appoint with GI specialist, as this is not the first time PO abx failure and hospitalization has needed -patient started on zosyn, will continue with extended infusion per pharmacy recommendations (2) Coronary artery disease: Status: Chronic Assessment and plan: -continue home lopressor, statin, asa (3) Essential hypertension: Status: Chronic Assessment and plan: -continue home amlodipine (4) HLD (hyperlipidemia): Status: Acute Assessment and plan: -continue home statin (5) Diabetes mellitus type 2 in obese: Status: Chronic Assessment and plan: -continue home glargine 50U daily -SSI, CCD \ discussed with DR Silva Subjective Subjective Patient reports: no new complaints, feels better, tolerating liquids well, tolerating a regular diet, voiding w/o difficulty and afebrile; denies shortness of breath Exam Const General: no acute distress Orientation: alert HENMT Head: normal to inspection Ears: external ears normal General nose exam: external nose normal Mouth: moist mucous membranes Eyes General: appearance normal, both eyes and all related structures Neck Neck: normal visual inspection Resp Effort & Inspection: normal respiratory effort and able to speak in complete sentences Cardio Rate: regular rate GI Inspection: normal to inspection and distended Palpation: soft, not firm, no guarding and tender (bilateral lower) Skin General skin exam: no rashes or lesions noted Neuro General: patient alert and patient oriented x3 Extrem General: normal to inspection Psych Mental Status: mental status grossly normal Objective Last Vital Signs Temp 36.8 C 09/18/24 11:33 Pulse 60 09/18/24 11:33 Resp 18 09/18/24 11:33 BP 104/61 09/18/24 11:33 Pulse Ox 95 09/18/24 11:33 Laboratory Results - last 24 hr 09/17/24 09/17/24 09/18/24 18:48 20:25 05:55 WBC 12.05 H 10.79 RBC 5.42 5.21 Hgb 15.4 15.0 Hct 46.2 44.5 MCV 85 85 MCH 28.4 28.8 MCHC 33.3 33.7 RDW 13.2 13.2 Plt Count 278 261 MPV 9.5 9.5 Immature Gran % 0.3 Neutrophils % 71.6 Lymphocytes % 19.0 Monocytes % 7.8 Eosinophils % 0.8 Basophils % 0.5 Nucleated RBC % 0.0 Absolute Neutrophils 8.63 H Absolute Lymphocytes 2.29 Absolute Monocytes 0.94 H Absolute Eosinophils 0.10 Absolute Basophils 0.06 Sodium 137 Cancelled Potassium 3.8 Cancelled Chloride 98 Cancelled Carbon Dioxide 27.4 Cancelled Anion Gap 11.6 H Cancelled BUN 11 Cancelled Creatinine 1.1 Cancelled Est GFR (CKD-EPI 2020) 72.67 Cancelled Glucose 193 H Cancelled Calcium 9.2 Cancelled Magnesium Cancelled Total Bilirubin 0.87 AST 20 ALT 43 Alkaline Phosphatase 89 Total Protein 7.8 Albumin 3.7 Urine Color Yellow Urine Clarity Clear Urine pH 5.5 Ur Specific [place] 1.010 Urine Protein Negative Urine Ketones Negative Urine Blood Trace-intact H Urine Nitrite Negative Urine Bilirubin Negative Urine Urobilinogen 0.2 Ur Leukocyte Esterase Negative Urine RBC 0-2 Urine WBC 0-2 Ur Epithelial Cells Rare Urine Crystals Negative Urine Bacteria Negative Urine Casts Negative Urine Mucus Negative Ur Culture Indicated? No Urine Glucose 500 H 09/18/24 06:13 WBC RBC Hgb Hct MCV MCH MCHC RDW Plt Count MPV Immature Gran % Neutrophils % Lymphocytes % Monocytes % Eosinophils % Basophils % Nucleated RBC % Absolute Neutrophils Absolute Lymphocytes Absolute Monocytes Absolute Eosinophils Absolute Basophils Sodium 137 Potassium 3.9 Chloride 100 Carbon Dioxide 29.0 Anion Gap 8.0 BUN 11 Creatinine 0.9 Est GFR (CKD-EPI 2020) 92.45 Glucose 153 H Calcium 9.0 Magnesium 2.0 Total Bilirubin AST ALT Alkaline Phosphatase Total Protein Albumin Urine Color Urine Clarity Urine pH Ur Specific [place] Urine Protein Urine Ketones Urine Blood Urine Nitrite Urine Bilirubin Urine Urobilinogen Ur Leukocyte Esterase Urine RBC Urine WBC Ur Epithelial Cells Urine Crystals Urine Bacteria Urine Casts Urine Mucus Ur Culture Indicated? Urine Glucose Time Spent with Patient Time Spent with Patient: 35-49 minutes Time was spent: preparing to see the patient(eg.review tests), obtaining and/or reviewing separately otained hiistory, ordering medications,tests, procedures, indepentently interpreting results and counseling the patient
[2024-09-18] MEDS: Rosuvastatin 20 MG TAB 40 MG PO (20:09)
--- NOTE | 2024-09-18 21:13 | RESPIRATORY ---
Pt's own CPAP machine for DEEPALI. Unable to obtain settings at bedside due to HU having whole digital screen/display without any other buttons to get accessed to settings. Pt. states it's auto CPAP but unsure of an exact number. Pt. does not bleeds in O2 at baseline. HU appeared to be intact, functioning well without any problem noticing. DME is [facility] per pt.
[2024-09-19 03:42] VITALS: BP 128/60; PULSE 63; RESP 18; TEMP 37; O2SAT 97
[2024-09-19 05:56] VITALS: BP 136/64; PULSE 57; RESP 18; TEMP 37; O2SAT 97
[2024-09-19] MEDS: Insulin Aspart 300 UNITS/3 ML PEN SC ×2 (09:01→21:34)
[2024-09-19] MEDS: Insulin Glargine 300 UNITS/3 ML PEN 50 UNITS SC (09:04)
[2024-09-19] MEDS: Enoxaparin 40 MG/0.4 ML SYR SC (10:05)
[2024-09-19] MEDS: Ranolazine 500 MG TABCR PO ×2 (10:05→21:30)
[2024-09-19] MEDS: amLODIPine 10 MG TAB PO (10:05)
[2024-09-19] MEDS: Metoprolol CR 50 MG TABCR 150 MG PO (10:06)
[2024-09-19] MEDS: Lisinopril 5 MG TAB PO (10:06)
--- NOTE | 2024-09-19 10:06 | W.PM.PROGNOT ---
Date of Service Date of service: 09/19/24 Time of Service: 10:06 Assessment and Plan Assessment and plan (1) Diverticulitis: Status: Chronic Assessment and plan: -patient is being admitted due to failed outpatient therapy for diverticulitis, initially diagnosed a the end of April 2024 -most recently patient was on PO cipro and flagyl and again began to experience recurrence of abdominal pain within a day or so after completing antibiotics -patient reportedly has appoint with GI specialist, as this is not the first time PO abx failure and hospitalization has needed -patient started on zosyn, will continue with extended infusion per pharmacy recommendations (2) Coronary artery disease: Status: Chronic Assessment and plan: -continue home lopressor, statin, asa (3) Essential hypertension: Status: Chronic Assessment and plan: -continue home amlodipine (4) HLD (hyperlipidemia): Status: Acute Assessment and plan: -continue home statin (5) Diabetes mellitus type 2 in obese: Status: Chronic Assessment and plan: -continue home glargine 50U daily -SSI, CCD \ discussed with DR Silva Objective Last Vital Signs Temp 37.0 C 09/19/24 05:56 Pulse 57 L 09/19/24 05:56 Resp 18 09/19/24 05:56 BP 136/64 09/19/24 05:56 Pulse Ox 97 09/19/24 05:56
[2024-09-19] MEDS: Normal Saline Flush 10 ML SYR IVP ×2 (10:07→21:30)
[2024-09-19] MEDS: Aspirin 81 MG CHEW PO (10:07)
[2024-09-19] MEDS: Magnesium Oxide 400 MG TAB PO (10:07)
--- NOTE | 2024-09-19 11:25 | W.PM.DS.N ---
Date of service: 10/18/24 Time of Service: 11:25 DS: Diagnosis Discharge Diagnosis (1) Diverticulitis: Status: Chronic (2) Coronary artery disease: Status: Chronic (3) Essential hypertension: Status: Chronic (4) HLD (hyperlipidemia): Status: Acute (5) Diabetes mellitus type 2 in obese: Status: Chronic Discharge Plan Disposition Patient Disposition: Home Condition: Improving Discharge Details Reason For Visit: Diverticulitis Admit Date/Time: 09/17/24 22:48 Admit Provider: Abner Ibrahim Attending Provider: Abner Ibrahim Primary Care Provider: David Ruiz Hospital Course Hospital Course: The patient is a 68-year-old male with a history of recurrent diverticulitis who comes to the emergency department for left lower side abdominal pain. The patient reports that he has been dealing with lower abdominal pain since April while on diverse antibiotics, now treated with ciprofloxacin and Flagyl on his last day . In the ED the patient was noted to have normal vital signs, normal physical exam, and normal CBC and CMP with the exception of a WBC of 12. The patient also had a CT abdo/pelvis which showed acute diverticulitis without signs of perforation. Given this ongoing radiologic finding, ED physician started the patient on zosyn and the patient was admitted by hospitalist for admission of a patient for failed outpatient therapy of diverticulitis. During the stay the patient was transitioned to Bactrim DS and flagyl with ongoing improvement of symptoms and total resolution this morning. The patient will be discharged home on Bactrim DS and flagyl. Patient made aware home probiotics should be 3 hours apart from his antibiotics. The patient will follow-up with his PCP within 7 days of discharge and already has a [facility] GI referral made prior to admission. Discussed with Dr. Silva Home Meds and New Rx's Prescriptions: New metronidazole 500 mg Tablet 500 mg PO Q8H Qty: 30 0RF sulfamethoxazole-trimethoprim 800-160 mg Tablet 1 tab PO Q12H Qty: 20 0RF Continued metoprolol succinate 50 mg tablet extended release 24 hr 150 mg PO DAILY Qty: 270 4RF cyclosporine [Restasis] 0.05 % dropperette 1 drp ophthalmic (eye) Q12H insulin lispro [Humalog KwikPen Insulin] 100 unit/mL insulin pen 30 unit subcut TID Qty: 90 4RF Metamucil 3.4 gram/5.4 gram powder 1 tsp PO DAILY Rx Instructions: mix into at least 4 oz water or juice before administering sennosides [senna] 8.6 mg tablet 8.6 mg PO DAILY PRN dapagliflozin propanediol [Farxiga] 10 mg tablet 10 mg PO DAILY Patient Comments: TAKE ONE TABLET BY MOUTH EVERY DAY (DME) pen needle, diabetic [BD Ultra-Fine Micro Pen Needle] 32 gauge x 1/4 needle See Rx Instructions .ROUTE .MEDSUPPLY Qty: 100 Patient Comments: USE DIRECTED THREE TIMES A DAY Rx Instructions: As directed (DME) pen needle, diabetic [BD Ultra-Fine Mini Pen Needle] 31 gauge x 3/16 needle See Rx Instructions .ROUTE .MEDSUPPLY Qty: 1200 Patient Comments: USE 4 NEEDLES DIRECTED FOR MEDS Rx Instructions: As directed cholecalciferol (vitamin D3) 25 mcg (1,000 unit) capsule 25 mcg PO DAILY insulin glargine U-300 conc [Toujeo Max U-300 SoloStar] 300 unit/mL (3 mL) insulin pen 44 unit subcut DAILY magnesium oxide 400 mg magnesium capsule 400 mg PO DAILY Qty: 90 4RF ranolazine 500 mg tablet extended release 12 hr 500 mg PO BID Qty: 180 4RF rosuvastatin [Crestor] 40 mg tablet 40 mg PO DAILY Qty: 90 4RF nitroglycerin 0.4 MG tablet, sublingual 0.4 mg Sublingual PRN PRN lisinopril 5 MG tablet 5 mg PO QAM amlodipine 10 MG tablet 10 mg PO QAM aspirin 81 mg Tablet,Chewable 81 mg PO DAILY trazodone 50 mg Tablet 50 mg PO QHS Discontinued ciprofloxacin HCl [Cipro] 500 mg tablet 500 mg PO BID Qty: 20 0RF metronidazole 500 mg tablet 500 mg PO TID Qty: 30 0RF Discharge Instructions Instructions: Diverticulitis (DC) Stand Alone Forms: Nursing Discharge Form Activity:: Activity as Tolerated Equipment/Supplies:: No Equipment Needed Diet:: heart healthy diabetic Discharge Orders Discharge Orders: Discharge Order (Routine); Ordered 09/20/24 Ordered By: Nia Miller DS: Summary Time Spent with Patient providing and/or coordinating discharge services: Greater than 30 minutes Status at Discharge Functional status at discharge: independent ambulation Overall status at discharge: patient is progressing back to baseline Mental Status: mental status grossly normal Speech and Movement: speech and movement normal Mood: congruent mood Affect: normal affect Quality:SDOH Health Related Social Needs: Health related social needs education (Z55.6) Exam Narrative Exam Narrative: Alert and oriented x 3, no focal deficit, sclera is not icteric, clear lungs, S1-S2 regular abdomen is round nondistended, soft, no further tenderness to left lower quadrant and hypogastric area, no CVA tenderness, moves all 4 extremities Psych Mental Status: mental status grossly normal Speech and Movement: speech and movement normal Mood: congruent mood Affect: normal affect DS: Data Vitals/I&O Vitals and I&O: Vital Signs Temperature 37.0 C 09/19/24 05:56 Temperature Source Temporal Artery Scan 09/19/24 05:56 Pulse 57 L 09/19/24 05:56 Pulse Rhythm Regular 09/18/24 08:58 Pulse Strength Normal 09/18/24 04:06 Respiratory Rate 18 09/19/24 05:56 Respiratory Effort Normal 09/18/24 08:58 Respiratory Depth Normal 09/18/24 08:58 Respiratory Pattern Normal 09/18/24 08:58 Blood Pressure 136/64 09/19/24 05:56 Blood Pressure Mean 78 09/18/24 04:06 Blood Pressure Position Supine 09/18/24 04:06 Pulse Oximetry 97 09/19/24 05:56 Oxygen Delivery Method Room Air 09/19/24 05:56 Oxygen Flow Rate 0 09/19/24 05:56 Pain Level 0 09/18/24 18:14 Intake & Output 09/18/24 09/18/24 09/19/24 11:59 23:59 11:59 Intake Total 60 / 1010 950 / 1010 1250 / 1250 Balance 60 / 1010 950 / 1010 1250 / 1250 Weight 104.326 kg Intake: IV 60 / 170 110 / 170 50 / 50 Oral 840 / 840 1200 / 1200 Other: Urine Color Yellow Yellow Urine Appearance Clear Clear Urine Odor Normal Comment unmeasured, urinated in toilet per pt voided x1 PFSH All Active Problems (Updated 09/17/24 @ 22:43 by Avril Monge DO) Failure of outpatient treatment (Acute) Diverticulitis (Chronic) Heart murmur (Acute) Muscle fasciculation (Acute) Acquired cystic kidney disease (Acute) Nonulcer dyspepsia (Acute) Cirrhosis (Chronic) Osteoarthritis of right hip (Acute) POCUS injection: 01/01/2024 Chronic diarrhea (Acute) Venous stasis dermatitis of left lower extremity (Acute) RLS (restless legs syndrome) (Acute) HLD (hyperlipidemia) (Acute) Nonsustained paroxysmal ventricular tachycardia (Acute) Fatty liver disease, nonalcoholic (Acute) Obesity (Chronic) Vitamin D deficiency (Acute) Depression with anxiety (Acute) Coronary artery disease (Chronic) Tubular adenoma of colon (Chronic 03/27/17) DEEPALI (obstructive sleep apnea) (Chronic) Diabetes mellitus type 2 in obese (Chronic) Atherosclerotic heart disease tejon coronary artery w/angina pectoris (Chronic) Essential hypertension (Chronic) Medical History Diverticulitis Adenomatous colon polyp NSTEMI (non-ST elevated myocardial infarction) 02/2020-pt. denies he had a NSTEMI, but states he had angina but no heart attack 2019 9 stents placed Elevated LFTs Vertigo Unstable angina Per pt. states this is not current, occurred over 15 years ago, follows up with desktop analyst last seen 11/25/22 Surgical History History of esophagogastroduodenoscopy (~05/2024) Status post debridement of bone spur left heel, Achilles tendon S/P right rotator cuff repair [facility] S/P cholecystectomy History of total left hip replacement (04/22/22) Status post carpal tunnel release of both wrists History of umbilical hernia repair Status post amputation of lesser toe of right foot Fifth toe was removed Excision, Distal Clavicle (05/11/15) DR BROWN/LEFT Coronary Stent 9 stents. Last placement on 02/11/16 Colonoscopy - MAC (03/27/17) Family History Mother Dementia Father Heart disease Hyperlipidemia Sister Breast cancer Brother Depression Heart disease Maternal Grandfather Heart disease Paternal Grandfather Heart disease Brother Heart disease Paternal Grandmother No problems noted. Paternal Grandfather Heart disease Social History Smoking/Tobacco Use Status: Former Tobacco Use tobacco type: cigarettes Quit Date: 07/20/92 Pack-years: 40 Tobacco: How many years used: 20 Second Hand Exposure: No Smoking risk assessment performed?: Yes Alcohol Intake: never Drug use: Current Sobriety Substance use type: former substance user, marijuana and other Adopted: No Caregiver/Support person: No Household members: none Housing: apartment Number of Children: 0 number of grandchildren: 0 Education Level: high school Do you need help understanding health information?: Never current occupation: retired Sexually active: Yes Do you think of yourself as: straight/heterosexual Current gender identity: male What is your relationship status?: How often do you talk on the phone with friends or family?: three or more times per week How often do you get together with friends or relatives?: three or more times per week How often do you attend oriental orthodox or congregation services?: 1-3 times per year Do you belong to any clubs or organized social groups?: no Panel score (0-1 are the most socially isolated patients): 1 NHANES result reviewed/action taken: Yes What type of physical activity do you participate in: walking and bicycling Duration: 45-60 minutes/day Frequency: 3-4 times per week Mahi/Religious: Protestant Special mahi needs: No Seatbelt use: always Helmet use: Yes Helmet use: always Drive intox or ride w/intox hyster driver: No Firearms in home: No Do you feel safe at home: Yes Do you feel safe in your relationship?: Yes Victim of physical abuse: No Victim of emotional abuse: No Victim of sexual abuse: No Would you like helpful sources: No Time Spent with Patient Time Spent with Patient: 70-84 minutes4 Time was spent: preparing to see the patient(eg.review tests), obtaining and/or reviewing separately otained hiistory, ordering medications,tests, procedures, referring, communicating with other health career development specialist, indepentently interpreting results, counseling the patient and care coordination
--- NOTE | 2024-09-19 11:47 | W.PM.PROGNOT ---
Date of Service Date of service: 09/19/24 Time of Service: 12:00 Assessment and Plan Assessment and plan (1) Diverticulitis: Status: Chronic Assessment and plan: -Will transitionfrom Zosyn to oral antibiotics with the Bactrim DS and Flagyl and evaluate what yeah so that for at least 7 to resurgence of symptoms in the morning -A I will dmitted due to failed outpatient therapy for diverticulitis, initially diagnosed in April 2024, was treated w Augmentin -most recently patient was on PO cipro and flagyl and again began to experience recurrence of abdominal pain within a day or so after completing antibiotics -patient reportedly has referral with GI specialist, as this is not the first time PO abx failure and hospitalization has needed (2) Coronary artery disease: Status: Chronic Assessment and plan: -On home regimen w lopressor, statin, asa (3) Essential hypertension: Status: Chronic Assessment and plan: -On home dose amlodipine (4) HLD (hyperlipidemia): Status: Acute Assessment and plan: -On home statin (5) Diabetes mellitus type 2 in obese: Status: Chronic Assessment and plan: -continue dose home dailyinsulin bolus -Continue SSI, CCD discussed with Dr. Silva Subjective Subjective Patient reports: still having pain, pain is less, tolerating liquids well, tolerating a regular diet, voiding w/o difficulty, flatus, diarrhea, blood in stool and afebrile; denies nausea or vomiting Exam Narrative Exam Narrative: Alert and oriented x 3, no focal deficit, sclera is not icteric, clear lungs, S1-S2 regular abdomen is round nondistended, soft, tenderness left lower quadrant and hypogastric area, no CVA tenderness, moves all 4 extremities Objective Last Vital Signs Temp 37.0 C 09/19/24 05:56 Pulse 57 L 09/19/24 05:56 Resp 18 09/19/24 05:56 BP 136/64 09/19/24 05:56 Pulse Ox 97 09/19/24 05:56 Time Spent with Patient Time Spent with Patient: >50 minutes Time was spent: preparing to see the patient(eg.review tests), obtaining and/or reviewing separately otained hiistory, ordering medications,tests, procedures, referring, communicating with other health healthcare management, indepentently interpreting results, counseling the patient and care coordination
[2024-09-19 14:29] VITALS: BP 118/62; PULSE 63; RESP 19; TEMP 36.8; O2SAT 95
--- NOTE | 2024-09-19 16:45 | PDOC.CMPRO ---
Date of service: 09/19/24 Time of Service: 14:00 Care Management Progress Note Progress Note Text Progress Note Text: Raul was sitting up in the bed, visiting with his girl friend, Hannah, when CM met with them today. Raul stated that he is feeling better, but will be staying one more night. He stated that his provider told him he would be switching to oral antibiotics tonight, in anticipation of discharge tomorrow. Raul recently failed tx on oral antibiotics, so provider wants to be extra cautious. Discharge Potential Discharge Needs: PCP F/U Appt Anticipated Barriers to Discharge: None Identified Patient/Family Education Needs: Review discharge instructions, discuss Ask Me Three Transportation: Private vehicle Plan: Anticipate that Raul will be discharged home tomorrow with no new services. He will f/u with his PCP and continue per his prescribed plan of care. CM will continue to follow and update the plan as needed. Social Determinants of Health Screening Social Determinants of Health last assessed: 09/19/24 Will the Patient Participate in the Screening?: Yes Do you worry about having a steady place to live?: no Problems where you live: no known problems In the past 12 months, have you had to go without electric, gas, oil or water in your home?: no Have you or anyone in your house had to go without enough food to eat?: no Has lack of transportation kept you from medical appointments or from doing things needed for daily living?: no Has anyone in your life made you feel unsafe or unsupported?: no How hard is it for you to pay for the very basics like food, housing, medical care, and heating? Would you say it is:: Not hard at all Do you want help finding or keeping work or a job?: I do not need or want help If for any reason you need help with day-to-day activities such as bathing, preparing meals, shopping, managing finances, etc., do you get the help you need?: I don?t need any help How often do you feel lonely or isolated from those around you?: Never Do you speak a language other than Kazakh at home?: Yes Does the patient want assistance with any of the above?: No Health Related Social Needs Health related social needs: education (Z55.6)
[2024-09-19] MEDS: Sulfameth/Trimeth DS TAB 1 TAB PO (18:15)
[2024-09-19] MEDS: metroNIDAZOLE 500 MG TAB PO (18:15)
[2024-09-19 19:29] VITALS: BP 131/66; PULSE 60; RESP 18; TEMP 36; O2SAT 95
[2024-09-19] MEDS: Rosuvastatin 20 MG TAB 40 MG PO (21:30)
[2024-09-19] MEDS: traZODone 50 MG TAB PO (21:30)
[2024-09-19] MEDS: Lactobacillus Acidophilus CAP 1 CAP PO (21:30)
[2024-09-19 22:57] VITALS: BP 128/74; PULSE 60; RESP 17; TEMP 36; O2SAT 97
[2024-09-20] MEDS: metroNIDAZOLE 500 MG TAB PO ×2 (02:03→10:42)
[2024-09-20 02:05] VITALS: BP 127/66; PULSE 62; RESP 15; TEMP 36.4; O2SAT 96
[2024-09-20] MEDS: Sulfameth/Trimeth DS TAB 1 TAB PO (06:22)
[2024-09-20 07:00] LABS: Abs Immature Grans 0.03 10^3/uL (0.0-0.06); Absolute Basophil Count 0.06 10^3/uL (0.0-0.2); Absolute Eosinophil Count 0.27 10^3/uL (0.0-0.7); Absolute Lymphocyte Count 2.46 10^3/uL (1.2-3.4); Absolute Monocyte Count 0.62 10^3/uL (0.1-0.8); Absolute Neutrophil Count 4.36 10^3/uL (1.2-6.7); Basophils % 0.8 %; Eosinophils % 3.5 %; HCT 45.5 % (40.0-50.0); Immature Grans % 0.4 %; Lymphocytes % 31.5 %; MCV 85 fL (80-95); MPV 9.6 fL (8.0-11.0); Monocytes % 7.9 %; Neutrophils % 55.9 %; Platelet Count 249 10^3/uL (130-400); RBC 5.35 10^6/uL (4.36-5.78); RDW 13.2 % (11.8-14.1); RDW-SD 40.8 fL
[2024-09-20 07:11] LABS: Anion Gap 10.3 mmol/L (3-11); BUN 10 mg/dL (7-18); CO2 28.7 mmol/L (21.0-32.0); CREATININE 0.9 mg/dL (0.70-1.30); Calcium 9.3 mg/dL (8.5-10.1); Chloride 102 mmol/L (98-107); Estimated GFR 92.45 (mL/min/1.73m2); Glucose 133 mg/dL (74-106); Magnesium 2.1 mg/dL (1.8-2.4); Potassium 3.8 mmol/L (3.5-5.1); Sodium 141 mmol/L (136-145)
[2024-09-20 07:31] VITALS: BP 125/70; PULSE 59; RESP 16; TEMP 36.1; O2SAT 95
[2024-09-20] MEDS: Metoprolol CR 50 MG TABCR 150 MG PO (08:05)
[2024-09-20] MEDS: Ranolazine 500 MG TABCR PO (08:05)
[2024-09-20] MEDS: Magnesium Oxide 400 MG TAB PO (08:06)
[2024-09-20] MEDS: Lisinopril 5 MG TAB PO (08:06)
[2024-09-20] MEDS: amLODIPine 10 MG TAB PO (08:06)
[2024-09-20] MEDS: Aspirin 81 MG CHEW PO (08:06)
[2024-09-20] MEDS: Lactobacillus Acidophilus CAP 1 CAP PO (08:06)
[2024-09-20] MEDS: Enoxaparin 40 MG/0.4 ML SYR SC (08:07)
[2024-09-20] MEDS: Insulin Glargine 300 UNITS/3 ML PEN 50 UNITS SC (08:07)
[2024-09-20] MEDS: Insulin Aspart 300 UNITS/3 ML PEN SC ×2 (08:09→11:40)
[2024-09-20] MEDS: Normal Saline Flush 10 ML SYR IVP (08:11)
[2024-09-20 11:12] VITALS: BP 101/65; PULSE 60; RESP 16; TEMP 36.2; O2SAT 97
--- NOTE | 2024-09-20 17:34 | PDOC.CMDIS ---
Date of service: 09/20/24 Time of Service: 14:00 LACE Index Scoring Tool Questions: Length of Stay (in days): 3 Was the patient admitted via the E.D.?: Yes Comorbidities: Previous M.I. and Mild Liver/Renal Disease E.D. Visits: 2 Answers: Total Score: 11 Risk of Readmission: High Risk Care Management Discharge Plan Reason for Hospitalization: diverticulitis flare, failed outpatient treatment Discharge Plan: Raul was discharged home earlier today with no new orders. He was given Bactrim and flaggyl to complete his course at home. Raul will f/u with his PCP and his GI specialist in [place]. Raul was transported in a private vehicle. Patient/Family Education Needs: Review of discharge instructions, activity, limitations and discuss Ask me 3. SDOH Health Related Social Needs: Health related social needs education (Z55.6)
[2024-09-20 20:10] LABS: Campylobacter PCR Negative (Negative); Salmonella PCR Negative (Negative); Shiga Toxin PCR Negative (Negative); Shigella/Enteroinvasive Ecoli Negative (Negative)
== END 2024-09-20 14:03 | disposition home or self-care (01) | DRG 392 ==
LOC: ER 22:54 → EDHOLD 23:06 → MS 09-18 08:51
PROVIDERS: Admitting Provider Family Medicine; Emergency Provider Emergency Medicine; PCP Nurse Practitioner Family; Responsible Provider Nurse Practitioner Acute Care; Visit Provider Family Medicine
DX: K57.32 Diverticulitis of large intestine without perforation or abscess without bleeding (principal); I10 Essential (primary) hypertension; E78.5 Hyperlipidemia, unspecified; E11.9 Type 2 diabetes mellitus without complications; E66.9 Obesity, unspecified; Z68.34 Body mass index [BMI] 34.0-34.9, adult; N28.1 Cyst of kidney, acquired; K74.60 Unspecified cirrhosis of liver; M16.11 Unilateral primary osteoarthritis, right hip; K52.9 Noninfective gastroenteritis and colitis, unspecified; I87.2 Venous insufficiency (chronic) (peripheral); G25.81 Restless legs syndrome; E55.9 Vitamin D deficiency, unspecified; G47.33 Obstructive sleep apnea (adult) (pediatric); Z96.642 Presence of left artificial hip joint; I25.119 Atherosclerotic heart disease of native coronary artery with unspecified angina pectoris; Z95.5 Presence of coronary angioplasty implant and graft; Z79.4 Long term (current) use of insulin; I25.2 Old myocardial infarction
CPT/HCPCS: 00123; 36415; 36416; 80048; 80053; 82962; 85027; 87505; 96365; 96366; 96372; 96375; 99285; J1650; 74177; 81003; 81015; 83735; 85025; 99223; 99233; 99239; J1815; J2405; J2543; J3490

== ENCOUNTER → 2024-10-31 14:37 | Outpatient (BNVA) | payer MEDICARE, BC, SELFPAY | PROVIDERS: PCP Nurse Practitioner Family; Referring Provider Nurse Practitioner Family; Visit Provider Student in an Organized Health Care Education/Training Program | DX: M67.431 Ganglion, right wrist (principal) | CPT/HCPCS: 99213 ==

== ENCOUNTER 2024-11-04 00:51 | Outpatient (CLI) | payer MEDICARE, BC, SELFPAY ==
[2024-11-04 10:34] LABS: ALT 43 U/L (16-63); AST 20 U/L (15-37); Albumin 3.9 g/dL (3.4-5.0); Alkaline Phosphatase 102 U/L (46-116); Anion Gap 9.8 mmol/L (3-11); BUN 17 mg/dL (7-18); Bilirubin, Total 0.5 mg/dL (0.2-1.0); CO2 29.2 mmol/L (21.0-32.0); Calcium 9.3 mg/dL (8.5-10.1); Calculated LDL 98 mg/dL (<100); Chloride 101 mmol/L (98-107); Cholesterol 181 mg/dL (<200); Estimated GFR 81.47 (mL/min/1.73m2); Glucose 174 mg/dL (74-106); HDL Cholesterol 58 mg/dL (>or=40); Potassium 4.2 mmol/L (3.5-5.1); Sodium 140 mmol/L (136-145); Total Protein 8.1 g/dL (6.4-8.2); Triglyceride 125 mg/dL (<150); Vitamin D 25 Total 18 ng/mL (30-100)
== END 2024-11-04 00:52 | disposition home or self-care (01) ==
PROVIDERS: PCP Nurse Practitioner Family; Visit Provider Nurse Practitioner Family
DX: E55.9 Vitamin D deficiency, unspecified (principal); K74.60 Unspecified cirrhosis of liver; E78.5 Hyperlipidemia, unspecified
CPT/HCPCS: 36415; 80053; 80061; 82306

== ENCOUNTER 2024-12-02 00:52 | Outpatient (CLI) | payer MEDICARE, BC, SELFPAY ==
[2024-12-02 08:30] LABS: Anion Gap 8.9 mmol/L (3-11); BUN 15 mg/dL (7-18); CO2 28.1 mmol/L (21.0-32.0); CREATININE 0.9 mg/dL (0.70-1.30); Calcium 9.5 mg/dL (8.5-10.1); Chloride 101 mmol/L (98-107); Estimated GFR 91.88 (mL/min/1.73m2); Glucose 196 mg/dL (74-106); Potassium 4.1 mmol/L (3.5-5.1); Sodium 138 mmol/L (136-145)
[2024-12-02 08:45] LABS: Hemoglobin A1C 7.2 % (<5.7)
[2024-12-02 09:03] LABS: COMMENT (LAB VIEW ONLY) 55.16 mg/dL
[2024-12-06 13:51] LABS: Fructosamine 291 mcmol/L (200 - 285)
== END 2024-12-02 00:53 | disposition home or self-care (01) ==
PROVIDERS: PCP Nurse Practitioner Family; Visit Provider Internal Medicine Endocrinology, Diabetes & Metabolism
DX: E11.65 Type 2 diabetes mellitus with hyperglycemia (principal); Z68.34 Body mass index [BMI] 34.0-34.9, adult
CPT/HCPCS: 36415; 80048; 82043; 82570; 82985; 83036

== ENCOUNTER → 2025-01-27 10:58 | Outpatient (BNVA) | payer MEDICARE, BC, SELFPAY | PROVIDERS: PCP Nurse Practitioner Family; Referring Provider Nurse Practitioner Family; Visit Provider Physician Assistant | DX: M16.11 Unilateral primary osteoarthritis, right hip (principal) | CPT/HCPCS: 20611; J1010 ==

== ENCOUNTER 2025-02-15 10:13 | Day surgery (SDC) | payer MEDICARE, BC, SELFPAY ==
[2025-02-15 10:15] VITALS: BP 133/91; PULSE 64; RESP 16; TEMP 36.1; O2SAT 98
[2025-02-15] MEDS: Celecoxib 200 MG CAP 400 MG PO (10:36)
[2025-02-15] MEDS: Acetaminophen 500 MG TAB 1000 MG PO (10:36)
--- NOTE | 2025-02-15 10:40 | W.ANESPRE ---
General Info Date of Service Date Performed: 02/15/25 Height: 5 ft 9.5 in Weight: 108.5 kg Body Mass Index (BMI): 34.8 Surgical Procedure: Operation Date: 02/15/25 12:10 Proposed Procedure Side Surgeon p Wrist Ganglion Cyst Excision Right Varun Evans MD Meds Allergies and Home Medications Allergies Allergy/AdvReac Type Severity Reaction Status Date / Time isosorbide AdvReac Other (See Verified 02/15/25 10:29 Comment) Home Medication ?Medication ?Instructions ?Recorded amlodipine 10 mg tablet 10 mg PO QAM 07/23/14 lisinopril 5 mg tablet 5 mg PO QAM 07/23/14 cholecalciferol (vitamin D3) 25 25 mcg PO DAILY 05/22/22 mcg (1,000 unit) capsule aspirin 81 mg chewable tablet 81 mg PO DAILY 02/26/23 insulin glargine U-300 conc 300 44 unit subcut DAILY 11/24/23 unit/mL (3 mL) subcutaneous pen (Toujeo Max U-300 SoloStar) cyclosporine 0.05 % eye drops in a 1 drp ophthalmic (eye) Q12H 05/02/24 dropperette (Restasis) insulin lispro 100 unit/mL 30 unit (0.3 mL) subcut TID #90 mL 05/02/24 subcutaneous pen (Humalog KwikPen (U-100) Insulin) magnesium oxide 400 mg PO DAILY #90 caps 06/08/24 ranolazine 500 mg tablet,extended 500 mg PO BID #180 tabs 06/13/24 release,12 hr rosuvastatin 40 mg tablet (Crestor) 40 mg PO DAILY #90 tabs 06/13/24 psyllium husk 3.4 gram/5.4 gram 1 tsp PO DAILY 06/22/24 oral powder (Metamucil) sennosides 8.6 mg tablet (senna) 8.6 mg PO DAILY PRN 06/22/24 dapagliflozin propanediol 10 mg 10 mg PO DAILY 08/03/24 tablet (Farxiga) pen needle, diabetic 31 gauge x #1,200 ea 08/03/24 3/16 (BD Ultra-Fine Mini Pen Needle) pen needle, diabetic 32 gauge x #100 ea 08/03/24 1/4 (BD Ultra-Fine Micro Pen Needle) metoprolol succinate 50 mg 150 mg (3 x 50 mg) PO DAILY #270 08/18/24 tablet,extended release 24 hr tabs dibucaine 1 % rectal ointment 1 applic [place] QID PRN hemorrhoids 10/04/24 (Nupercainal) #56 grams hydrocortisone 1 % topical cream 1 applic [place] BID PRN itching #28.4 10/04/24 with perineal applicator grams nitroglycerin 0.4 mg sublingual 0.4 mg sublingual PRN PRN chest 10/17/24 tablet pain #30 tabs cholecalciferol (vitamin D3) 50 2,000 unit PO DAILY #90 caps 11/01/24 mcg (2,000 unit) capsule trazodone 50 mg tablet 50 mg PO QHS #90 tabs 11/28/24 ezetimibe 10 mg tablet 10 mg PO DAILY 01/27/25 tirzepatide 2.5 mg/0.5 mL 2.5 mg subcut QWEEK 01/27/25 subcutaneous pen injector (Liat) cyclobenzaprine 10 mg tablet 10 mg PO TID PRN muscle spasm #60 02/08/25 tabs Current Visit Medications: Current Medications Generic Name Dose Route Start Last Admin Trade Name Freq PRN Reason Stop Dose Admin Acetaminophen 1,000 mg 02/15/25 06:00 Acetaminophen 500 Mg Tab PO 02/15/25 23:59 PREOP HILARIO Celecoxib 400 mg 02/15/25 06:00 Celecoxib 200 Mg Cap PO 02/15/25 23:59 PREOP HILARIO Ringer's Solution 1,000 mls @ 80 mls/hr 02/15/25 06:00 IV 02/15/25 23:59 INFUSION HILARIO Cefazolin Sodium/Dextrose 2 gm in 50 mls @ 100 mls/hr 02/15/25 06:00 Ancef Duplex IVPB 02/15/25 23:59 PREOP HILARIO IV Miscellaneous Supplies 1 each 02/15/25 06:00 Iv Access IV 02/15/25 23:59 DIRECTED HILARIO Sodium Chloride 0 ml 02/15/25 06:00 Normal Saline Flush 10 Ml Syr IV 02/15/25 23:59 PRN PRN Sodium Chloride 0 ml 02/15/25 06:00 Normal Saline 10 Ml Vial IJ 02/15/25 23:59 DIRECTED PRN Sterile Water 0 ml 02/15/25 06:00 Water,Injection,Sterile 10 Ml Vial IJ 02/15/25 23:59 DIRECTED PRN PFSH Active Problems Active Problems: Problem Status Onset Code Neck pain Acute M54.2 Ganglion cyst of volar aspect of right wrist Acute M67.431 Failure of outpatient treatment Acute Z78.9 Diverticulitis Chronic K57.92 Heart murmur Acute R01.1 Muscle fasciculation Acute R25.3 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 Nonulcer dyspepsia Acute K30 Cirrhosis Chronic K74.60 Osteoarthritis of right hip Acute M16.11 Chronic diarrhea Acute K52.9 Venous stasis dermatitis of left lower extremity Acute I87.2 RLS (restless legs syndrome) Acute G25.81 HLD (hyperlipidemia) Acute E78.5 Nonsustained paroxysmal ventricular tachycardia Acute I47.2 Fatty liver disease, nonalcoholic Acute K76.0 Obesity Chronic E66.9 Vitamin D deficiency Acute E55.9 Depression with anxiety Acute F41.8 Coronary artery disease Chronic I25.10 DEEPALI (obstructive sleep apnea) Chronic Diabetes mellitus type 2 in obese Chronic E11.9, E66.9 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 denies he had a NSTEMI, but states he had angina but no heart attack Pt. states this was before 2019 states they started in 1992 9 stents placed Elevated LFTs Vertigo Unstable angina Per pt. states this is not current, occurred over 15 years ago, follows up with latexer last seen 11/25/22 Surgical History Surgical History History of esophagogastroduodenoscopy (~05/2024) Status post debridement of bone spur left heel, Achilles tendon S/P right rotator cuff repair [facility] S/P cholecystectomy History of total left hip replacement (04/22/22) Status post carpal tunnel release of both wrists History of umbilical hernia repair Status post amputation of lesser toe of right foot Fifth toe was removed Excision, Distal Clavicle (05/11/15) DR BROWN/LEFT Coronary Stent 9 stents. Last placement on 02/11/16 Colonoscopy - MAC (03/27/17) Tobacco Smoking/Tobacco Use Status: Former Tobacco Use Passive smoking exposure: No Second hand exposure: No Alcohol Alcohol Intake: never Substance Use Substance use: Current Sobriety Substance use type: does not use and other Vital Signs and Lab Results Vital Signs Most Recent Vital Signs in EMR: Most Recent Vital Signs Temp Pulse Resp BP Pulse Ox 36.1 C L 64 16 133/91 H 98 02/15/25 10:15 02/15/25 10:15 02/15/25 10:15 02/15/25 10:15 02/15/25 10:15 Point of Care Results Point of Care Results: Finger Stick Blood Glucose 169 02/15/25 10:24 Imaging and Studies Imaging and Studies Study information below may be from another EMR and interpreted by another provider. Please see original notes in EMR for more complete details. EKG Summary: 01/02/24 Conclusion Sinus rhythm...normal P axis, V-rate 60- 99 Right bundle branch block...QRSd>120, terminal axis(90,270) DATE/TIME OF SERVICE: 02/28/22909 : 1955PERFORMING [facility]ATION[facility] Exam: Resting ECG Reason for Exam: NSVT CAD Patient Location: O HR:72 bpm ECG Measurements Heart Rate 72 AXIS AK 184 P 50 QRSd 110 QRS 92 QT 385 T10 QTc 422 Conclusion Sinus rhythm...normal P axis, V-rate 50- 99 Right axis deviation...QRS axis ( 91,269) Echocardiogram Summary: 05/20/23 Conclusion Normal left ventricular wall thickness and chamber size. Ejection fraction is 55 to 60%. Wall motion is normal Normal right ventricular size and systolic function Both atria are normal in size There is no structural or hemodynamically significant valvular disease : UVM: Left VentricleThe left ventricular cavity was normal in size. Left ventricular systolic function was normal with an ejection fraction of 55-60%. Left ventricular diastolic parameters were not diagnostic. Left ventricular wall thickness was normal. Left ventricular wall motion was normal; there were no regional wall motion abnormalities. Right VentricleThe right ventricular cavity was normal in size. Right ventricular systolic function was normal. Right ventricular wall thickness was normal. Left AtriumThe left atrium was normal in size. Right AtriumThe right atrium was normal in size. Aortic ValveThe aortic valve structure was trileaflet. The aortic leaflets were not thickened. There was no aortic valve stenosis. There was no aortic valve regurgitation. Mitral ValveMitral valve structure was normal. There was no significant mitral valve stenosis or regurgitation. Tricuspid ValveTricuspid valve structure was normal. There was no tricuspid valve regurgitation. There was no tricuspid valve stenosis. Pulmonic ValveThere was no pulmonic valve regurgitation. There was no pulmonic valve stenosis. Pulmonic ArteryUnable to assess PA pressure. Ascending AortaThe aorta was normal in size. PericardiumThere was no pericardial effusion. IVC/SVCThe inferior vena cava was normal in size. Cardiac Catheterization Summary: 03/19/20: UVM: CORONARY ARTERIES: The coronary circulation is right dominant. Left main: Minor luminal irregularities. LAD: Proximal vessel lesion: There is a 30% stenosis. Patent stents with minimal ISR. Slow flow initially with rapid improvement to normal with IC NTG. Ramus intermedius: Minor luminal irregularities. Left circumflex: Proximal vessel lesion: There is a 30% stenosis. Distal vessel lesion: There is a 50% stenosis. unchanged. Right coronary: Proximal vessel lesion: There is minimal in-stent restenosis. Anesthesia Assessment and Plan Anesthesia History Personal History: No History of Anesthesia Complications Family History: No Family History of Anesthesia Complications Exercise Tolerance Exercise Tolerance: Metabolic Equivalents<4 Pertinent Negatives Pertinent Negatives: No Symptoms of GERD Cardiac & Pulmonary Exam Cardiac Exam: Normal S1/S2 Heart Sounds Pulmonary Exam: Clear Bilateral Breath Sounds Implantable Cardiac Device Does patient have a Pacemaker or an ICD?: No Airway Exam Known Difficult Airway: No Mallampati Class: 3 Mouth Opening: Normal (> 3cm) Thyromental Distance: Greater than 3 cm Neck Range of Motion: Limited ROM (See comment below) Neck Circumference: Normal Teeth Condition: Normal Dentition Airway Comments: Recent neck pain, seen at PCP and on a short course of prednisone. Has difficulty turning neck to right, less problems turning left. ASA Classification ASA Score: ASA 3 Emergency Case?: No NPO Status NPO Status: NPO Clears >2 hours, Solids >8 hours Anesthesia Plan Resuscitation Status: Full Code Anesthesia Technique: General Anesthesia Airway Planned: Natural Airway Monitors Used: Standard Monitors
--- NOTE | 2025-02-15 10:45 | W.PREOPHP ---
Assessment and Plan Assessment and plan (1) Ganglion cyst of volar aspect of right wrist: Status: Acute Assessment and plan: Raul is a 69-year-old male who has a volar wrist cyst about the right wrist. He continues to cause problems with use of the hand. He continues to fluctuate in size. Given its persistence he would like it removed. I discussed cyst excision with him. I reviewed the risk to include bleeding, infection, pain, stiffness, damage to nerves and vessels, particular the radial artery, recurrence. Despite these risk, he elects to proceed. We will use a splint for immobilization for the first 7 to 10 days. All of his questions were answered. History of Present Illness History of Present Illness Chief Complaint: Right volar wrist cyst Narrative: Raul is a 69-year-old male who has a cyst about his right volar wrist. Please the previous office note for complete detailed history. This causes pain and dysfunction he would like it removed. No other concerning features about it. He does have multiple medical comorbidities but these are all stable. His diabetes is in good control. Review of Systems All systems reviewed & are unremarkable except as noted in HPI and below PFSH All Active Problems Neck pain (Acute) Ganglion cyst of volar aspect of right wrist (Acute) Failure of outpatient treatment (Acute) Diverticulitis (Chronic) Heart murmur (Acute) Muscle fasciculation (Acute) Acquired cystic kidney disease (Acute) Nonulcer dyspepsia (Acute) Cirrhosis (Chronic) Osteoarthritis of right hip (Acute) POCUS injection: 01/27/2025; 01/01/2024 Chronic diarrhea (Acute) Venous stasis dermatitis of left lower extremity (Acute) RLS (restless legs syndrome) (Acute) HLD (hyperlipidemia) (Acute) Nonsustained paroxysmal ventricular tachycardia (Acute) Fatty liver disease, nonalcoholic (Acute) Obesity (Chronic) Vitamin D deficiency (Acute) Depression with anxiety (Acute) Coronary artery disease (Chronic) DEEPALI (obstructive sleep apnea) (Chronic) Diabetes mellitus type 2 in obese (Chronic) Atherosclerotic heart disease [place] coronary artery w/angina pectoris (Chronic) Essential hypertension (Chronic) Medical History Tubular adenoma of colon (03/27/17) Diverticulitis Adenomatous colon polyp NSTEMI (non-ST elevated myocardial infarction) 02/2020-pt. denies he had a NSTEMI, but states he had angina but no heart attack Pt. states this was before 2019 states they started in 1992 9 stents placed Elevated LFTs Vertigo Unstable angina Per pt. states this is not current, occurred over 15 years ago, follows up with pulp drier last seen 11/25/22 Surgical History History of esophagogastroduodenoscopy (~05/2024) Status post debridement of bone spur left heel, Achilles tendon S/P right rotator cuff repair [facility] S/P cholecystectomy History of total left hip replacement (04/22/22) Status post carpal tunnel release of both wrists History of umbilical hernia repair Status post amputation of lesser toe of right foot Fifth toe was removed Excision, Distal Clavicle (05/11/15) DR BROWN/LEFT Coronary Stent 9 stents. Last placement on 02/11/16 Colonoscopy - MAC (03/27/17) Family History Mother Dementia Father Heart disease Hyperlipidemia Sister Breast cancer Brother Depression Heart disease Maternal Grandfather Heart disease Paternal Grandfather Heart disease Brother Heart disease Paternal Grandmother No problems noted. Paternal Grandfather Heart disease Social History Smoking/Tobacco Use Status: Former Tobacco Use tobacco type: cigarettes Quit Date: 07/20/92 Pack-years: 40 Tobacco: How many years used: 20 Second Hand Exposure: No Smoking risk assessment performed?: Yes Alcohol Intake: never Drug use: Current Sobriety Substance use type: does not use and other Adopted: No Caregiver/Support person: No Household members: none Housing: apartment Number of Children: 0 number of grandchildren: 0 Education Level: high school Do you need help understanding health information?: Never current occupation: retired Sexually active: Yes Do you think of yourself as: straight/heterosexual Current gender identity: male What is your relationship status?: How often do you talk on the phone with friends or family?: three or more times per week How often do you get together with friends or relatives?: three or more times per week How often do you attend spiritism or zoroastrian services?: 1-3 times per year Do you belong to any clubs or organized social groups?: no Panel score (0-1 are the most socially isolated patients): 1 NHANES result reviewed/action taken: Yes What type of physical activity do you participate in: walking and bicycling Duration: 45-60 minutes/day Frequency: 3-4 times per week Mahi/Samaritan: Religion Special mhai needs: No Seatbelt use: always Helmet use: Yes Helmet use: always Drive intox or ride w/intox driver recruiter: No Firearms in home: No Do you feel safe at home: Yes Do you feel safe in your relationship?: Yes Victim of physical abuse: No Victim of emotional abuse: No Victim of sexual abuse: No Would you like helpful sources: No Meds Allergies and Home Medications Allergies Allergy/AdvReac Type Severity Reaction Status Date / Time isosorbide AdvReac Other (See Verified 02/15/25 10:29 Comment) Home Medications ?Medication ?Instructions ?Recorded ?Confirmed ?Type amlodipine 10 mg tablet 10 mg PO QAM 07/23/14 02/15/25 History lisinopril 5 mg tablet 5 mg PO QAM 07/23/14 02/15/25 History cholecalciferol (vitamin D3) 25 25 mcg PO DAILY 05/22/22 02/15/25 History mcg (1,000 unit) capsule aspirin 81 mg chewable tablet 81 mg PO DAILY 02/26/23 02/15/25 History insulin glargine U-300 conc 300 44 unit subcut DAILY 11/24/23 02/15/25 History unit/mL (3 mL) subcutaneous pen (Toujeo Max U-300 SoloStar) cyclosporine 0.05 % eye drops in a 1 drp ophthalmic (eye) Q12H 05/02/24 02/15/25 History dropperette (Restasis) insulin lispro 100 unit/mL 30 unit (0.3 mL) subcut TID #90 mL 05/02/24 02/15/25 Rx subcutaneous pen (Humalog KwikPen (U-100) Insulin) magnesium oxide 400 mg PO DAILY #90 caps 06/08/24 02/15/25 Rx ranolazine 500 mg tablet,extended 500 mg PO BID #180 tabs 06/13/24 02/15/25 Rx release,12 hr rosuvastatin 40 mg tablet (Crestor) 40 mg PO DAILY #90 tabs 06/13/24 02/15/25 Rx psyllium husk 3.4 gram/5.4 gram 1 tsp PO DAILY 06/22/24 02/15/25 History oral powder (Metamucil) sennosides 8.6 mg tablet (senna) 8.6 mg PO DAILY PRN 06/22/24 02/15/25 History dapagliflozin propanediol 10 mg 10 mg PO DAILY 08/03/24 02/14/25 History tablet (Farxiga) pen needle, diabetic 31 gauge x #1,200 ea 08/03/24 02/08/25 History 3/16 (BD Ultra-Fine Mini Pen Needle) pen needle, diabetic 32 gauge x #100 ea 08/03/24 02/08/25 History 1/4 (BD Ultra-Fine Micro Pen Needle) metoprolol succinate 50 mg 150 mg (3 x 50 mg) PO DAILY #270 08/18/24 02/15/25 Rx tablet,extended release 24 hr tabs dibucaine 1 % rectal ointment 1 applic NE QID PRN hemorrhoids 10/04/24 02/15/25 Rx (Nupercainal) #56 grams hydrocortisone 1 % topical cream 1 applic NE BID PRN itching #28.4 10/04/24 02/15/25 Rx with perineal applicator grams nitroglycerin 0.4 mg sublingual 0.4 mg sublingual PRN PRN chest 10/17/24 02/15/25 Rx tablet pain #30 tabs cholecalciferol (vitamin D3) 50 2,000 unit PO DAILY #90 caps 11/01/24 02/15/25 Rx mcg (2,000 unit) capsule trazodone 50 mg tablet 50 mg PO QHS #90 tabs 11/28/24 02/15/25 Rx ezetimibe 10 mg tablet 10 mg PO DAILY 01/27/25 02/15/25 History tirzepatide 2.5 mg/0.5 mL 2.5 mg subcut QWEEK 01/27/25 02/14/25 History subcutaneous pen injector (Liat) cyclobenzaprine 10 mg tablet 10 mg PO TID PRN muscle spasm #60 02/08/25 02/15/25 Rx tabs Exam Resp Auscultation: clear to auscultation bilaterally Cardio Rate: regular rate Rhythm: regular rhythm Results Last Vital Signs Temp 36.1 C L 02/15/25 10:15 Pulse 64 02/15/25 10:15 Resp 16 02/15/25 10:15 BP 133/91 H 02/15/25 10:15 Pulse Ox 98 02/15/25 10:15
[2025-02-15] MEDS: Lactated Ringers 1,000 ML 80 ML IV (10:49)
--- NOTE | 2025-02-15 11:19 | W.PM.DSUDISC ---
Date of service: 02/15/25 Discharge Plan Disposition Patient Disposition: Home Condition: Good Discharge Details Reason For Visit: Excision cyst R wrist Attending Provider: Varun Evans Primary Care Provider: David Ruiz [place] Meds and New Rx's Prescriptions: New acetaminophen 500 mg tablet 1,000 mg PO TID Qty: 90 0RF hydrocodone-acetaminophen 5-325 mg tablet 1 tab PO Q6H PRN (Reason: pain) Qty: 6 0RF ibuprofen 600 mg tablet 600 mg PO TID PRN (Reason: pain) Qty: 90 0RF Continued cholecalciferol (vitamin D3) 50 mcg (2,000 unit) capsule 2,000 unit PO DAILY Qty: 90 4RF metoprolol succinate 50 mg tablet extended release 24 hr 150 mg PO DAILY Qty: 270 4RF cyclobenzaprine 10 mg tablet 10 mg PO TID PRN (Reason: muscle spasm) Qty: 60 0RF cyclosporine [Restasis] 0.05 % dropperette 1 drp ophthalmic (eye) Q12H insulin lispro [Humalog KwikPen Insulin] 100 unit/mL insulin pen 30 unit subcut TID Qty: 90 4RF Metamucil 3.4 gram/5.4 gram powder 1 tsp PO DAILY Rx Instructions: mix into at least 4 oz water or juice before administering sennosides [senna] 8.6 mg tablet 8.6 mg PO DAILY PRN dapagliflozin propanediol [Farxiga] 10 mg tablet 10 mg PO DAILY Patient Comments: TAKE ONE TABLET BY MOUTH EVERY DAY (DME) pen needle, diabetic [BD Ultra-Fine Micro Pen Needle] 32 gauge x 1/4 needle See Rx Instructions .ROUTE .MEDSUPPLY Qty: 100 Patient Comments: USE DIRECTED THREE TIMES A DAY Rx Instructions: As directed (DME) pen needle, diabetic [BD Ultra-Fine Mini Pen Needle] 31 gauge x 3/16 needle See Rx Instructions .ROUTE .MEDSUPPLY Qty: 1200 Patient Comments: USE 4 NEEDLES DIRECTED FOR MEDS Rx Instructions: As directed Nupercainal 1 % ointment 1 applic [place] QID PRN (Reason: hemorrhoids) Qty: 56 0RF hydrocortisone 1 % cream with perineal applicator 1 applic [place] BID PRN (Reason: itching) Qty: 28.4 6RF ezetimibe 10 mg tablet 10 mg PO DAILY Mounjaro 2.5 mg/0.5 mL pen injector 2.5 mg subcut QWEEK Rx Instructions: for 4 weeks cholecalciferol (vitamin D3) 25 mcg (1,000 unit) capsule 25 mcg PO DAILY insulin glargine U-300 conc [Toujeo Max U-300 SoloStar] 300 unit/mL (3 mL) insulin pen 44 unit subcut DAILY magnesium oxide 400 mg magnesium capsule 400 mg PO DAILY Qty: 90 4RF ranolazine 500 mg tablet extended release 12 hr 500 mg PO BID Qty: 180 4RF rosuvastatin [Crestor] 40 mg tablet 40 mg PO DAILY Qty: 90 4RF nitroglycerin 0.4 mg tablet, sublingual 0.4 mg Sublingual PRN PRN (Reason: chest pain) Qty: 30 0RF trazodone 50 mg tablet 50 mg PO QHS Qty: 90 4RF lisinopril 5 MG tablet 5 mg PO QAM amlodipine 10 MG tablet 10 mg PO QAM aspirin 81 mg Tablet,Chewable 81 mg PO DAILY Discharge Instructions Additional Instructions: Wrist Cyst Discharge Instructions Activity: You should keep the hand elevated as much as possible for the first few days. You may your fingers as tolerated but avoid trying to do too much too soon. You may perform light activities with the splint in place. Dressing/Cast: Your splint should stay in place at all times. Do NOT get it wet. You may loosen the MIS wrap if you feel it is too tight and then rewrap more loosely. Medications: - You should take Tylenol and Ibuprofen for baseline pain control. - You have Hydrocodone for breakthrough pain. - You may apply ice over the wrist. Follow-up: 7-10 days Referrals: Varun Evans MD [ [facility] STAFF PHYSICIAN, Orthopaedic Surgical] Activity:: Elevate Remove Dressings/Wound Care:: Do Not Remove Shower/Bathe:: Cover Diet:: As Tolerated Discharge Orders Discharge Orders: Discharge Order (Routine); Ordered 02/15/25 Ordered By: Du Jaimes DS: Diagnosis Discharge Diagnosis (1) Ganglion cyst of volar aspect of right wrist: Status: Acute
[2025-02-15 11:20] VITALS: BMI 34.8
[2025-02-15] MEDS: ceFAZolin 2 GM/50 ML BAG IVPB (11:32)
[2025-02-15] MEDS: Lidocaine 1% Multi-Dose W/EPI 1/100,000 50 ML VIAL (11:37)
[2025-02-15] MEDS: Sodium Bicarbonate 50 MEQ/50 ML VIAL (11:37)
[2025-02-15 12:06] VITALS: BP 110/57; PULSE 65; RESP 16; TEMP 36.7; O2SAT 97
--- NOTE | 2025-02-15 12:25 | W.ANESPOSTOP ---
Postoperative Evaluation Date, Time and Location Date Performed: 02/15/25 Time Performed: 12:25 Patient Location: Day Surgery Unit Vital Signs Most Recent Imported Vital Signs: Most Recent Vital Signs Temp Pulse Resp BP Pulse Ox 36.7 C 65 16 110/57 L 97 02/15/25 12:06 02/15/25 12:06 02/15/25 12:06 02/15/25 12:06 02/15/25 12:06 Pain Score Most Recent Pain Score: Most Recent Pain Score Pain Level 0 02/15/25 12:06 Assessment Mental Status: Awake (Alert & Oriented to Patient Baseline) Airway and Respiratory Function: Patent airway with normal (patient baseline) respiratory exam Cardiovascular Function: Hemodynamically Stable Hydration Status: Adequately Hydrated Nausea & Vomiting: No Nausea or Vomiting Pain: Pt. Denies Any Pain Peripheral Nerve Block: Patient did not receive a nerve block
[2025-02-15 12:38] VITALS: BP 113/57; PULSE 58; RESP 16; TEMP 36.7; O2SAT 98
--- NOTE | 2025-02-15 16:48 | ROE_ITS ---
Operative Note Operative Note PRE-OP DIAGNOSIS: Right volar Wrist Ganglion Cyst POST-OP DIAGNOSIS: same PROCEDURE: Excision of volar wrist ganglion cyst -right wrist SURGEON: Varun Evans ANESTHESIA TYPE: General:No Airway Refer to Anesthesia Record ESTIMATED BLOOD LOSS: 5 PATHOLOGY: none sent COMPLICATIONS: None Patient was transported to: PACU Patient's condition: stable Indications: Raul is a 69-year-old male who I have seen for a volar wrist ganglion cyst. It has continued to be bothersome despite some conservative options. Its size and interference with activities continues to cause problems. Therefore, I offered excision of the volar wrist cyst. I discussed the risks to include bleeding, infection, pain, stiffness, damage to nerve and vessels, recurrence. Despite these risks, he elects to proceed. Findings: There was a cyst seen adjacent to the flexor carpi radialis and deep down to the radial scaphoid joint. Cyst capsule was removed and arthrotomy was performed at its origin. Procedure Description: Raul was greeted in the preoperative holding area. Identity was confirmed and the correct site was identified and marked. Consent was reviewed the patient and signed. History and physical was updated. The patient to take not to the operating room placed in supine position. All bony prominences were well- padded. A nonsterile tourniquet was placed high up onto the right arm. The arms and prepped with ChloraPrep and draped in a standard fashion. The surgical site was marked on the skin and injected with 1% lidocaine with epinephrine buffered with sodium bicarbonate. The limb was exsanguinated and the tourniquet was inflated to 250 mmHg where it stayed for 13 minutes. The s kin was incised sharply. Deeper dissection was carried out with tenotomy scissors and careful attention to vascular branches in this area. The mass was identified and protected with dissection carried around. Once was fully identified it was deflated and the cyst stalk was followed down to the carpus. The cyst structure was resected and its origin from the carpus was opened with tenotomy scissors and rongeur. The wound was then thoroughly irrigated. The tourniquet was deflated. There is no major arterial bleeding but a slow ooze from the deep wound bed. The deep layer was reapproximated with a 3-0 Vicryl. The skin was closed with a running 4-0 Monocryl followed by skin glue, gauze, and Marshall wrap. The wrist was placed into a removable wrist brace. At the end the case, all counts were correct. The patient was awakened from anesthesia and taken to the PACU in stable condition. There were no noted complications. Date of Procedure: 02/15/25
== END 2025-02-15 12:43 | disposition home or self-care (01) ==
PROVIDERS: PCP Nurse Practitioner Family; Visit Provider Student in an Organized Health Care Education/Training Program
PROC: (CPT 25111; principal; 2025-02-15 12:00)
DX: M67.431 Ganglion, right wrist (principal); E11.9 Type 2 diabetes mellitus without complications; Z79.4 Long term (current) use of insulin; I87.2 Venous insufficiency (chronic) (peripheral); G47.33 Obstructive sleep apnea (adult) (pediatric); I10 Essential (primary) hypertension; I25.10 Atherosclerotic heart disease of native coronary artery without angina pectoris
CPT/HCPCS: 25111; J0690; J2004; J2704

== ENCOUNTER → 2025-02-24 08:15 | Outpatient (BNVA) | payer MEDICARE, BC, SELFPAY | PROVIDERS: PCP Nurse Practitioner Family; Referring Provider Nurse Practitioner Family; Visit Provider Physician Assistant | DX: M67.431 Ganglion, right wrist (principal) | CPT/HCPCS: 99024 ==

== ENCOUNTER 2025-04-12 15:19 | Outpatient (CLI) | payer MEDICARE, BC, SELFPAY ==
[2025-04-12 13:49] LABS: Hemoglobin A1C 6.5 % (<5.7)
[2025-04-12 13:49] LABS: COMMENT (LAB VIEW ONLY) 52.03 mg/dL; Microalb ug/mg Crea 7.5 ug/mg Cr
[2025-04-12 13:50] LABS: Anion Gap 10.3 mmol/L (3-11); BUN 15 mg/dL (7-18); CO2 27.7 mmol/L (21.0-32.0); Calcium 8.8 mg/dL (8.5-10.1); Chloride 101 mmol/L (98-107); Estimated GFR 80.97 (mL/min/1.73m2); Glucose 182 mg/dL (74-106); Potassium 4.0 mmol/L (3.5-5.1); Sodium 139 mmol/L (136-145)
== END 2025-04-12 15:20 | disposition home or self-care (01) ==
LOC: LBO 15:19
PROVIDERS: PCP Nurse Practitioner Family; Visit Provider Internal Medicine Endocrinology, Diabetes & Metabolism
DX: E11.65 Type 2 diabetes mellitus with hyperglycemia (principal)
CPT/HCPCS: 36415; 80048; 82043; 82570; 82985; 83036; 84681

== ENCOUNTER 2025-04-19 14:49 | Outpatient (CLI) | payer MEDICARE, BC, SELFPAY ==
[2025-04-19 16:12] LABS: Calculated LDL 48 mg/dL (<100); Cholesterol 144 mg/dL (<200); HDL Cholesterol 44 mg/dL (>or=40); TSH (W/Ref FT4) 1.31 uIU/mL (0.36-3.74); Triglyceride 261 mg/dL (<150)
== END 2025-04-19 14:50 | disposition home or self-care (01) ==
LOC: LBO 14:50
PROVIDERS: PCP Nurse Practitioner Family; Visit Provider Internal Medicine
DX: E78.49 Other hyperlipidemia (principal)
CPT/HCPCS: 36415; 80061; 84443

== ENCOUNTER 2025-05-03 10:39 | Outpatient (CLI) | payer MEDICARE, BC, SELFPAY ==
[2025-05-03 14:32] LABS: HCT 45.1 % (40.0-50.0); HGB 15.3 g/dL (13.5-17.5); MCH 28.8 pg (27.0-33.0); MCHC 33.9 % (32.0-36.0); MCV 85 fL (80-95); MPV 9.8 fL (8.0-11.0); Platelet Count 264 10^3/uL (130-400); RBC 5.31 10^6/uL (4.36-5.78); RDW 12.6 % (11.8-14.1); RDW-SD 38.6 fL; WBC 7.95 10^3/uL (4.4-10.8)
[2025-05-03 14:50] LABS: Vitamin B12 378 pg/mL (193-986)
[2025-05-03 14:59] LABS: Glucose >=1000 mg/dL (Negative)
[2025-05-03 15:17] LABS: C & S Indicated? No; RBC Negative HPF (0-2); WBC Negative HPF (0-5)
[2025-05-04 10:48] LABS: Syphilis Serology (RPR) Negative (Negative)
== END 2025-05-03 10:40 | disposition home or self-care (01) ==
LOC: LOS 10:39
PROVIDERS: PCP Nurse Practitioner Family; Visit Provider Nurse Practitioner Family
DX: R41.3 Other amnesia (principal)
CPT/HCPCS: 36415; 85027; 81003; 81015; 82607; 86592

== ENCOUNTER 2025-05-17 13:26 | Outpatient (CLI) | payer MEDICARE, BC, SELFPAY ==
[2025-05-17 16:46] LABS: ALT 54 U/L (16-63); AST 29 U/L (15-37); Albumin 3.7 g/dL (3.4-5.0); Alkaline Phosphatase 93 U/L (46-116); Anion Gap 9.2 mmol/L (3-11); BUN 12 mg/dL (7-18); Bilirubin, Total 0.7 mg/dL (0.2-1.0); CO2 28.8 mmol/L (21.0-32.0); Calcium 9.0 mg/dL (8.5-10.1); Calculated LDL 52 mg/dL (<100); Chloride 100 mmol/L (98-107); Cholesterol 128 mg/dL (<200); Estimated GFR 80.97 (mL/min/1.73m2); Glucose 144 mg/dL (74-106); HDL Cholesterol 48 mg/dL (>or=40); Potassium 4.1 mmol/L (3.5-5.1); Sodium 138 mmol/L (136-145); TSH (W/Ref FT4) 1.34 uIU/mL (0.36-3.74); Total Protein 7.5 g/dL (6.4-8.2); Triglyceride 140 mg/dL (<150)
== END 2025-05-17 13:27 | disposition home or self-care (01) ==
LOC: LBO 13:32
PROVIDERS: PCP Nurse Practitioner Family; Visit Provider Internal Medicine
DX: K75.81 Nonalcoholic steatohepatitis (NASH) (principal); Z79.899 Other long term (current) drug therapy; E78.49 Other hyperlipidemia
CPT/HCPCS: 36415; 80053; 80061; 84443

== ENCOUNTER → 2025-05-18 03:45 | Outpatient (CLI) | payer MEDICARE, BC, SELFPAY ==
--- NOTE | 2025-05-18 09:12 | DI.MRI_ITS ---
Exam(s) MR CERVICAL SPINE WO EXAM: MR CERVICAL SPINE WO CLINICAL HISTORY: no improvement with PT,neck pain, m54.2 TECHNIQUE: Multiplanar multisequence MRI of the cervical spine was performed without intravenous contrast. COMPARISON: No exams were available for comparison FINDINGS: CERVICOMEDULLARY JUNCTION: Intact with no evidence of cerebellar tonsillar ectopia. No obvious abnormality of the odontoid process. No evidence of Chiari 1 malformation. CERVICAL SPINAL CORD: There is no abnormal signal in the cervical spinal cord and no evidence of focal cord atrophy nor focal cord swelling. OSSEOUS:There are no cervical fractures evident. No significant osseous lesions in the cervical vertebrae. Normal cervical curvature is maintained. INDIVIDUAL LEVELS: C2-3: There is a posterior subligamentous disc herniation at this level which is predominately right-sided and confined by the posterior longitudinal ligament. This extends posteriorly for a distance of 3.8 mm from the disc space, is approximately 1 point 5 cm wide, and extends cranially behind the C2 vertebral body for distance of 9 mm. It also extends caudally for a distance of 6 mm behind the upper C3 vertebral body. There is mild flattening of the thecal sac this level but no deflection of the cervical cord and the central canal dimensions appear to remain within normal limits. There is no extension of the disc herniation into the exiting neural foramina on either side. There is no foraminal stenosis. So no significant facet arthropathy at this level. C3-4: Preserved disc height. No disc herniation or central canal stenosis. There is asymmetric facet arthropathy on the right side. Mild right-sided foraminal stenosis. No foraminal stenosis on the left side. Left facet joint appears unremarkable. C4-5: Relative preservation of disc height. There is mild central annular bulging without a prominent disc herniation. Central canal dimensions are lower normal. There is moderate degenerative change in the right facet joint at this level. Mild right-sided foraminal stenosis. Mild foraminal stenosis also evident on the left side. Mild left-sided foraminal stenosis. C5-6: This level exhibits chronic advanced disc space narrowing and anterior osseous lipping. Posteriorly there is annular bulging and small bilateral Luschka joint osteophytes. There is mild central spinal canal stenosis. AP measurement of the canal at this levels a 0.5 mm. The facet joints appear relatively unremarkable at this level. However, there is an element of bilateral foraminal stenosis related to the bilateral Luschka joint osteophytes. C6-7: This level exhibits normal disc height. There is mild this annular bulging in there is a small lateral right disc protrusion at the level of the exiting right neural foramen causing mild foraminal stenosis. Facet joints at this level appears unremarkable. There is no left-sided disc protrusion at this level and no left-sided foraminal stenosis. C7-T1: No disc herniation nor central canal stenosis. No facet arthropathy.No foraminal stenosis. IMPRESSION: 1. At C2-3 level there is a posterior subligamentous disc herniation predominately right-sided and contained by the posterior longitudinal ligament, extending posteriorly 3.8 mm and extending cranial caudally from the disc space behind the C2 and C3 vertebral bodies as described above. There is no prominent central canal stenosis at this level and there is no significant foraminal stenosis at this level. 2. At C5-6 level there is chronic disc space narrowing, mild central spinal canal stenosis and small bilateral Luschka joint osteophytes with mild bilateral foraminal stenosis. 3. At C6-7 level there is a small lateral right disc protrusion at the level of the exiting right neural foramen resulting in mild right-sided foraminal stenosis. Facet joints at this level appear unremarkable. Other findings as above. DATA REPOSITORY:
== END ==
LOC: DI 03:45
PROVIDERS: PCP Nurse Practitioner Family; Visit Provider Nurse Practitioner Family
DX: M50.122 Cervical disc disorder at C5-C6 level with radiculopathy (principal); M50.123 Cervical disc disorder at C6-C7 level with radiculopathy
CPT/HCPCS: 72141

== ENCOUNTER 2025-06-26 10:19 | Outpatient (CLI) | payer MEDICARE, BC, SELFPAY ==
[2025-06-26 09:09] LABS: ALT 66 U/L (10-49); AST 42 U/L (<34); Albumin 4.5 g/dL (3.2-5.0); Alkaline Phosphatase 94 U/L (46-116); Anion Gap 9 mmol/L (3-11); BUN 14 mg/dL (9-23); Bilirubin, Total 0.50 mg/dL (0.2-1.2); CO2 27.0 mmol/L (20.0-31.0); Calcium 9.4 mg/dL (8.3-10.6); Chloride 104 mmol/L (98-107); Glucose 159 mg/dL (74-106); Potassium 3.9 mmol/L (3.5-5.1); Sodium 140 mmol/L (136-145); Total Protein 7.6 g/dL (5.7-8.2)
== END 2025-06-26 10:20 | disposition home or self-care (01) ==
LOC: LBO 10:19
PROVIDERS: PCP Nurse Practitioner Family; Visit Provider Internal Medicine
DX: K75.81 Nonalcoholic steatohepatitis (NASH) (principal)
CPT/HCPCS: 36415; 80053